=== PATIENT | female | born 1940 | race Caucasian/White ===

== ENCOUNTER → 2018-09-15 12:43 | Outpatient (CLI) | payer MEDICARE, MEDICAID, SELFPAY ==
--- NOTE | 2018-09-15 12:48 | CT_ITS ---
CT lung screening EXAM: CT LUNG LOW DOSE WO CONTRAST HISTORY: 90 pack-year smoking history aseptic medic for lung cancer ITS.REASON: CURRENT TOBACCO USE ORDERING PHYSICIAN: Yan Melton MD PATIENT AGE: 77 years COMPARISON: 02/06/2017 TECHNIQUE: The exam was performed on a GE Light Speed [address] scanner using 2.90 mGy CTDI. A low dose helical CT CHEST was performed on a multi-detector scanner. All CT scans at the facility use one or more dose reduction, viz: automated exposure control, ma/kV adjustment per patient size (including targeted exams where dose is matched to indication, i.e. head), or iterative reconstruction technique. The LDCT was performed in a facility that meets the criteria for the screening program. Data regarding this exam was submitted to ACR which is an approved registry. The order for this exam indicates that it came as a result of a lung cancer screening counseling shard decision-making visit that included all the elements required of such a visit including smoking cessation. The radiologist interpreting this exam meets the CMS criteria for the LDCT lung cancer screening program. The exam is reported using the Lung-RADS classification scale and reported to the ACR registry. NOTE: This study was performed for the specific purposes of lung cancer screening and is not an alternative to diagnostic chest CT. RADIATION DOSE: CTDI vol(CT dose Index-volume) = 2.90mG DLP (Dose Length Product) = 100.18 mGcm FINDINGS: Hyperinflation with attenuation of the peripheral pulmonary vessels and bronchial thickening consistent with obstructive chronic bronchitis. Stable small pulmonary nodules with a 4 mm nodule in the superior segment of the left lower lobe and a 4 mm nodule in the left lower lobe posterior laterally which may contain a small central calcific focus. No new nodules evident. There is a 4 mm nodule in the right apex medially unchanged Coronary artery calcifications are present. Stable small nodes are present in the mediastinum. Upper abdominal images show a mildly enlarged left adrenal gland measuring -5 Hounsfield units appears stable measuring 16 mm. Left renal cyst is noted superiorly IMPRESSION: 1. Lung RADS Category: 2, benign 2. Other findings: COPD, coronary artery disease RECOMMENDATIONS: 12 month LDCT follow-up
== END ==
PROVIDERS: PCP Family Medicine; Visit Provider Family Medicine
DX: Z12.2 Encounter for screening for malignant neoplasm of respiratory organs (principal); Z87.891 Personal history of nicotine dependence

== ENCOUNTER → 2020-02-09 10:15 | Outpatient (CLI) | payer MEDICARE, MEDICAID, SELFPAY | PROVIDERS: PCP Family Medicine; Visit Provider Family Medicine | DX: R00.2 Palpitations (principal) | CPT/HCPCS: 93225; 93226 ==

== ENCOUNTER → 2020-08-02 10:59 | Outpatient (CLI) | payer MEDICARE, MEDICAID, SELFPAY ==
--- NOTE | 2020-08-02 | XR_ITS ---
PROCEDURE: XR LUMBAR SPINE MIN 4V CLINICAL INDICATION: LOW BACK PAIN COMPARISON: No exams were available for comparison FINDINGS: There are 4 non rib-bearing lumbar vertebra. Degenerative disc disease is present at L3-L4 with mild retrolisthesis of L3 of 4 mm and degenerative disc disease also at the lumbosacral junction. No fracture or dislocation. No lytic or blastic change. There is facet arthritic changes at the lumbosacral junction and there is generalized vascular calcification. IMPRESSION: Degenerative changes as described above Dictated by: Grant Bliss MD 08/02/2020 17:28 Grant Bliss MD in [place] 08/02/2020 17:28
== END ==
PROVIDERS: PCP Family Medicine; Visit Provider Family Medicine
DX: M54.41 Lumbago with sciatica, right side (principal)
CPT/HCPCS: 72110

== ENCOUNTER → 2020-08-14 12:45 | Outpatient (CLI) | payer MEDICARE, MEDICAID, SELFPAY ==
--- NOTE | 2020-08-14 12:49 | MR_ITS ---
PROCEDURE: MR LUMBAR SPINE WO CON CLINICAL INDICATION: RT SIDED LOW BACK PAIN WITH SCIATICA X3 WEEKS. PRIOR XRAY 08-02-20 COMPARISON: CR XR LUMBAR SPINE MIN 4V from 08/02/2020 TECHNIQUE: Standard multiplanar multiecho sequences are performed without contrast. 3-D MIP and myelographic images are also rendered and reviewed FINDINGS: There is straightening of the lumbar lordosis. There is normal alignment. The spinal cord ends at the L1-L2 level. T12-L1, L1-L2 have an unremarkable appearance. L2-L3: Mild bulging disc with mild facet and ligamentum hypertrophy and mild bilateral foraminal narrowing. L3-L4: Mild bulging disc with moderate facet and ligamentum hypertrophy with moderate bilateral lateral recess narrowing and moderate bilateral foraminal narrowing. L4-5: There is a prominent extruded herniated disc in the right paracentral and foraminal region which extends superiorly from the L4-5 disc space. This is moderate-sized in nature measuring 1.5 cm cephalad caudad and 1.7 cm transverse. A nerve sheath tumor could have a similar appearance however, this appears to extend directly from the disc space. Repeat study without and with contrast may confirm the diagnosis. There is moderate facet and ligamentum hypertrophy with bilateral lateral recess and foraminal narrowing. This abnormality occupies the right foramen with compression of the exiting L4 nerve root an of the traversing L5 nerve root. There is minimal retrolisthesis of L4 of 2-3 mm. There is also moderate left lateral recess and foraminal narrowing with borderline narrowing of the canal. L5-S1: Mild concentric bulging disc with minimal central disc protrusion along with facet ligamentum hypertrophy with moderate right and severe left foraminal narrowing Incidental note is made of a 3.6 cm left renal cyst. IMPRESSION: 1. L2-L3: Mild bulging disc with mild facet and ligamentum hypertrophy and mild bilateral foraminal narrowing. 2. L3-L4: Mild bulging disc with moderate facet and ligamentum hypertrophy with moderate bilateral lateral recess narrowing and moderate bilateral foraminal narrowing. 3. L4-5: There is a prominent extruded herniated disc in the right paracentral and foraminal region which extends superiorly from the L4-5 disc space. This is moderate-sized in nature measuring 1.5 cm cephalad caudad and 1.7 cm transverse. A nerve sheath tumor could have a similar appearance however, this appears to extend directly from the disc space. Repeat study without and with contrast may confirm the diagnosis. There is moderate facet and ligamentum hypertrophy with bilateral lateral recess and foraminal narrowing. This abnormality occupies the right foramen with compression of the exiting L4 nerve root an of the traversing L5 nerve root. There is minimal retrolisthesis of L4 of 2-3 mm. There is also moderate left lateral recess and foraminal narrowing with borderline narrowing of the canal. 4. L5-S1: Mild concentric bulging disc with minimal central disc protrusion along with facet ligamentum hypertrophy with moderate right and severe left foraminal narrowing Dictated by: Grant Bliss MD 08/16/2020 12:02 Grant Bliss MD in [place] 08/16/2020 12:02
== END ==
PROVIDERS: PCP Family Medicine; Visit Provider Family Medicine
DX: M51.36 Other intervertebral disc degeneration, lumbar region (principal); M47.816 Spondylosis without myelopathy or radiculopathy, lumbar region; M43.16 Spondylolisthesis, lumbar region
CPT/HCPCS: 72148; 76376

== ENCOUNTER → 2020-08-30 11:21 | Outpatient (POV) | payer MEDICARE, MEDICAID, SELFPAY ==
[2020-08-30 12:01] VITALS: BP 142/74; PULSE 74; RESP 18; TEMP 36.8; O2SAT 98; BMI 26.9
--- NOTE | 2020-08-30 13:28 | HMH.PMCON ---
Assessment and Plan (1) Degenerative joint disease (DJD) of lumbar spine Status: Chronic Category: Medical Code(s): M47.816 - Spondylosis without myelopathy or radiculopathy, lumbar region (2) Lumbar radiculopathy Status: Chronic Category: Medical Code(s): M54.16 - Radiculopathy, lumbar region - Assessment and plan all Dx Assessment and Plan for all problems:: Patient is unable to undergo an MRI due to a pacemaker. She has had a CT scan of her lumbar spine. She is exhibiting neurogenic claudication type symptoms. We will schedule her for a lumbar epidural steroid injection at L4-L5 with an epidurogram. She is on Xarelto therapy per Dr. Barrow. We will seek approval to hold her Xarelto prior to the injection. Risks and benefits of the procedure were explained to the patient and she would like to proceed with the injection. Patient is interested in injective therapy. She says that she does not want to undergo any type of major surgery. We will see her back in the clinic after her injection to reassess her symptoms. She has been instructed to contact clinic if she has any concerns before her next appointment. The patient and I specifically discussed risk factors for COVID19. These risks include, but are not limited to age greater than 60, heart or lung disease, diabetes, immunosuppression, and travel. We also discussed NSAIDs may worsen COVID19 infection or symptoms. Patient should not use NSAIDs to treat COVID19 signs or symptoms. Patient was also informed that any type of corticosteroid of any form (oral or injection) will decrease the patient's immune system response and may increase the likelihood of COVID19 infection [address] symptoms[address] Landaverde has reviewed this note and agrees with this plan of care. This note was dictated using voice recognition software and make contain errors or omissions. HPI - Data of Consult Patient: new to practice Consult date: 08/30/20 Requesting Physician: Barbara Roldan APRN Primary Care Provider: Yan Melton MD - Consult Narrative Reason for consult: Low back pain History of present illness: Ms. Hills is a 79 year old female presents today for consultation for chronic low back pain. Patient says that she has had ongoing low back pain for greater than 30 years. 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 Patient attributes much of her back pain due to heavy lifting of patients throughout her career. She says that her pain is constant and is now causing her to lose her balance and fall. As a result she has had a left wrist fracture as well as a right thumb fracture from frequent falls. She is also having some urinary incontinence due to what she calls pressure in her low back area. She says that she is unable to stand long enough to do dishes or to cook a meal at this point. She says bending forward or laying in the position gives her some relief. Patient has tried injections to her back with little to no relief. She says that she gets about 2 to 3 days of relief at the most. She has tried traction as well. In the past, she was told she had a herniated disc L4-L5 and L5-S1. She says at that time, however, traction did give her relief. Patient says that she has had episodes where her legs have become numb and she has lost her balance. She says approximately a year ago she lost sensation in bilateral lower extremities and fell to the floor. She says that she developed sensation once again to her lower extremities approximately 1 day later. Patient says she cannot stand, sit, or lay for very long due to pain. She also reports to have severe leg atrophy in her left lower extremity. 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 She is currently on gabapentin that she says does help on occasion. She says her biggest concern is falling and fractures. She does have a recent history of osteo
--- NOTE | 2020-08-30 13:41 | HMH.PMCON ---
Assessment and Plan (1) Degenerative joint disease (DJD) of lumbar spine Status: Chronic Category: Medical Code(s): M47.816 - Spondylosis without myelopathy or radiculopathy, lumbar region (2) Lumbar radiculopathy Status: Chronic Category: Medical Code(s): M54.16 - Radiculopathy, lumbar region (3) Degenerative joint disease (DJD) of lumbar spine Status: Chronic Category: Medical Code(s): M47.816 - Spondylosis without myelopathy or radiculopathy, lumbar region (4) Lumbar radiculopathy Status: Chronic Category: Medical Code(s): M54.16 - Radiculopathy, lumbar region (5) Herniated disc Status: Chronic Category: Medical - Assessment and plan all Dx Assessment and Plan for all problems:: Patient is accompanied with a family member today. She and I did discuss the results of her MRI. I did discuss with the patient that her MRI has suggested she undergo a repeat MRI with contrast. Patient is not in agreement to proceed with a repeat MRI at this time. She and I did discuss a neurosurgical consult.. She has a family member that has given her suggestions to neurosurgeons. She would like to consult with her family member before proceeding with the referral. I have advised her that it is very important that she notify the office as soon as possible so that we can make the referral for her. She is unsure if she would like any injective therapy in the future. She does have a herniated disc per her MRI report. Her report did also suggest she undergo an MRI with contrast to rule out a tumor. We will refer her to neurosurgery when she decides who she would like to see. We will follow-up with her after her consultation with neurosurgery. The patient and I specifically discussed risk factors for COVID19. These risks include, but are not limited to age greater than 60, heart or lung disease, diabetes, immunosuppression, and travel. We also discussed NSAIDs may worsen COVID19 infection or symptoms. Patient should not use NSAIDs to treat COVID19 signs or symptoms. Patient was also informed that any type of corticosteroid of any form (oral or injection) will decrease the patient's immune system response and may increase the likelihood of COVID19 [address] Landaverde has reviewed this note and agrees with this plan of care. This note was dictated using voice recognition software and make contain errors or omissions. HPI - Data of Consult Patient: new to practice Consult date: 08/30/20 Requesting Physician: Barbara Roldan APRN Primary Care Provider: Yan Melton MD - Consult Narrative Reason for consult: Low back pain History of present illness: Ms. Hills is a 79 year old female presents today for consultation for chronic low back pain. Patient says she has chronic right low back pain with radiation into her right leg. She also has pain into her left low back area, however, it is worse on the right side at this time. She says she has difficulty standing and walking and has pain with prolonged sitting. She also says that laying at night causes her to have significant pain. Patient does rate her pain an 8 out of 10. She initially refused the pain management consult due to patient reporting she does not want to take any type of oral medications. She says that the pain is radiating into her right buttock, right hip, and right leg. It does go to her foot. She does have an MRI from July 2020 she is here today to discuss her treatment options. She says she is not sure if she is interested in injective therapy. She has tried anti-inflammatories with no relief. She has also tried ice and heat therapies with no relief. She does report to be having frequent falls as well. She is accompanied by family member today. CC: Barbara Roldan APRN [facility] History I have reviewed the patient's past medical history: Yes Medical History: Reports:: Chronic Obstructive Pulmonary Disease (COPD), Diabetes [place]
== END ==
PROVIDERS: PCP Family Medicine; Visit Provider Clinical Nurse Specialist Family Health
DX: M47.896 Other spondylosis, lumbar region (principal); M54.16 Radiculopathy, lumbar region
CPT/HCPCS: 99202

== ENCOUNTER → 2020-11-15 13:20 | Outpatient (CLI) | payer MEDICARE, MEDICAID, SELFPAY | PROVIDERS: PCP Family Medicine; Visit Provider Family Medicine | DX: Z11.52 Encounter for screening for COVID-19 (principal) | CPT/HCPCS: U0003 ==

== ENCOUNTER → 2021-12-18 11:14 | Outpatient (CLI) | payer MEDICARE, MEDICAID, SELFPAY ==
--- NOTE | 2021-12-18 11:22 | XR_ITS ---
FINAL REPORT CLINICAL HISTORY: RT SHOULDER PAIN FINDINGS: RIGHT SHOULDER: 3 views of the right shoulder were obtained. There is no acute fracture or dislocation. There is mild acromioclavicular joint and mild glenohumeral joint degenerative change.. There is no soft tissue abnormality. IMPRESSION: Degenerative change with no acute process. Reviewed, Interpreted and Dictated by Mike Louis III, MD Transcribed by Shefali Le Authenticated by Mike Louis III, MD on 12/18/2021 12:35:02 PM [facility]
== END ==
PROVIDERS: PCP Family Medicine; Visit Provider Family Medicine
DX: M25.511 Pain in right shoulder (principal)
CPT/HCPCS: 73030

== ENCOUNTER → 2022-06-11 07:05 | Outpatient (CLI) | payer MEDICARE, MEDICAID, SELFPAY ==
[2022-06-11 20:06] LABS: Anion Gap 15.2 mEq/L (5-15); Blood Urea Nitrogen 18 mg/dl (7-17); Calcium 9.4 mg/dl (8.4-10.2); Carbon Dioxide 30 mmol/L (22.0-30.0); Chloride 99 mmol/L (98-107); Estimated Glomerular Filt Rate 96 ml/min (>60); GFR (African American) 116 ML/MIN (>60); Glucose 121 mg/dl (74-100); Potassium 4.2 mmoL/L (3.5-5.1); Sodium 140 mmol/L (136-145)
== END ==
PROVIDERS: PCP Family Medicine; Visit Provider Family Medicine
DX: E11.9 Type 2 diabetes mellitus without complications (principal); I10 Essential (primary) hypertension; Z79.84 Long term (current) use of oral hypoglycemic drugs
CPT/HCPCS: 80048

== ENCOUNTER → 2022-12-03 23:20 | Outpatient (CLI) | payer MEDICARE, MEDICAID, SELFPAY ==
[2022-12-03 18:42] LABS: Basophils # 0.1 K/mm3 (0-0.2); Basophils % 1.1 % (0.1-2.0); Eosinophils # 0.2 K/mm3 (0.0-0.4); Eosinophils % 1.4 % (0.1-12.0); Hematocrit 49.6 % (37.0-47.0); Hemoglobin 15.5 g/dL (12.2-16.2); Lymphocytes # 2.4 K/mm3 (0.7-4.5); Mean Corpuscular HGB Conc 31.3 g/dL (31.8-35.4); Mean Corpuscular Hemoglobin 30.1 pg (27.0-31.2); Mean Corpuscular Volume 96.3 fl (81-99); Mean Platelet Volume 8.9 fl (7.4-10.4); Monocytes # 0.8 K/mm3 (0.1-1.0); Monocytes % 6.9 % (1.7-9.3); Neutrophils # 8.3 K/mm3 (1.8-7.8); Neutrophils % 70.7 % (37.0-80.0); Platelet Count 333 K/mm3 (142-424); Red Blood Count 5.15 M/mm3 (4.20-5.40); Red Cell Distribution Width 13.7 % (11.5-17.5); White Blood Count 11.8 K/mm3 (4.8-10.8)
[2022-12-03 19:01] LABS: Alanine Aminotransferase 20 U/L (12-78); Albumin Level 4.6 g/dl (3.5-5.0); Albumin/Globulin Ratio 1.8 (1.1-1.8); Alkaline Phosphatase 78 U/L (38-126); Anion Gap 14.3 mEq/L (5-15); Aspartate Amino Transferase 30 U/L (14-36); Bilirubin,Total 0.6 mg/dl (0.2-1.3); Blood Urea Nitrogen 16 mg/dl (7-17); Calcium 9.3 mg/dl (8.4-10.2); Carbon Dioxide 27 mmol/L (22.0-30.0); Chloride 102 mmol/L (98-107); Chol/HDL Ratio 2.4 (1-3.5); Cholesterol 124 mg/dl (140-200); Estimated Glomerular Filt Rate 80 ml/min (>60); GFR (African American) 97 ML/MIN (>60); Globulin 2.6 g/dL (1.3-3.2); Glucose 125 mg/dl (74-100); HDL Cholesterol 52 mg/dl (40-60); Potassium 4.3 mmoL/L (3.5-5.1); Sodium 139 mmol/L (136-145); Total Protein,Serum 7.2 g/dl (6.3-8.2); Triglycerides 70 mg/dl (30-150); VLDL Cholesterol 14 mg/dL (0-40)
[2022-12-03 19:28] LABS: Thyroid Stimulating Hormone 1.39 uIU/mL (0.465-4.68)
[2022-12-03 20:29] LABS: Microalbumin/Creatinine Ratio 150.9
[2022-12-03 20:32] LABS: Creatinine,Urine Random 103 mg/dL (Not Estab.)
[2022-12-03 21:19] LABS: Hemoglobin A1C 6.7 % (4.0-6.0)
== END ==
PROVIDERS: PCP Family Medicine; Visit Provider Family Medicine
DX: E11.9 Type 2 diabetes mellitus without complications (principal); I10 Essential (primary) hypertension; R42 Dizziness and giddiness; Z79.84 Long term (current) use of oral hypoglycemic drugs
CPT/HCPCS: 80053; 80061; 82043; 82570; 83036; 84443; 85025

== ENCOUNTER → 2023-04-29 23:42 | Outpatient (CLI) | payer MEDICARE, MEDICAID, SELFPAY ==
[2023-04-29 20:08] LABS: Alanine Aminotransferase 18 U/L (12-78); Albumin Level 4.5 g/dl (3.5-5.0); Albumin/Globulin Ratio 1.5 (1.1-1.8); Alkaline Phosphatase 87 U/L (38-126); Anion Gap 15.8 mEq/L (5-15); Aspartate Amino Transferase 30 U/L (14-36); Bilirubin,Total 0.4 mg/dl (0.2-1.3); Blood Urea Nitrogen 15 mg/dl (7-17); Carbon Dioxide 29 mmol/L (22.0-30.0); Chloride 102 mmol/L (98-107); Chol/HDL Ratio 2.6 (1-3.5); Cholesterol 125 mg/dl (140-200); Estimated Glomerular Filt Rate 80 ml/min (>60); GFR (African American) 97 ML/MIN (>60); Globulin 3.1 g/dL (1.3-3.2); Glucose 113 mg/dl (74-100); HDL Cholesterol 49 mg/dl (40-60); Potassium 4.8 mmoL/L (3.5-5.1); Sodium 142 mmol/L (136-145); Total Protein,Serum 7.6 g/dl (6.3-8.2); Triglycerides 93 mg/dl (30-150); VLDL Cholesterol 19 mg/dL (0-40)
[2023-04-29 20:18] LABS: Hemoglobin A1C 6.7 % (4.0-6.0)
[2023-04-29 20:21] LABS: Direct LDL Cholesterol 62.84 mg/dL (100-129)
== END ==
PROVIDERS: PCP Nurse Practitioner; Visit Provider Nurse Practitioner
DX: E11.9 Type 2 diabetes mellitus without complications (principal); E78.5 Hyperlipidemia, unspecified; I10 Essential (primary) hypertension; Z79.84 Long term (current) use of oral hypoglycemic drugs
CPT/HCPCS: 80053; 80061; 83036

== ENCOUNTER 2023-10-05 22:00 | Outpatient (CLI) | payer MEDICARE, MEDICAID, SELFPAY ==
[2023-10-05 19:59] LABS: Albumin Level 4.5 g/dl (3.5-5.0); Albumin/Globulin Ratio 1.7 (1.1-1.8); Alkaline Phosphatase 70 U/L (38-126); Bilirubin,Total 0.5 mg/dl (0.2-1.3); Blood Urea Nitrogen 14 mg/dl (7-17); Calcium 9.7 mg/dl (8.4-10.2); Carbon Dioxide 31 mmol/L (22.0-30.0); Estimated Glomerular Filt Rate 80 ml/min (>60); GFR (African American) 97 ML/MIN (>60); Globulin 2.6 g/dL (1.3-3.2); Glucose 117 mg/dl (74-100); HDL Cholesterol 49 mg/dl (40-60); Potassium 4.2 mmoL/L (3.5-5.1); Sodium 140 mmol/L (136-145); Total Protein,Serum 7.1 g/dl (6.3-8.2)
[2023-10-05 20:01] LABS: Alanine Aminotransferase 23 U/L (12-78); Anion Gap 11.2 mEq/L (5-15); Aspartate Amino Transferase 37 U/L (14-36); Chloride 102 mmol/L (98-107); Cholesterol 146 mg/dl (140-200); Triglycerides 79 mg/dl (30-150); VLDL Cholesterol 16 mg/dL (0-40)
[2023-10-05 20:11] LABS: Direct LDL Cholesterol 75.98 mg/dL (100-129)
[2023-10-05 20:16] LABS: 25-OH Vitamin D, Total 32.3 ng/mL (30-100)
[2023-10-05 20:25] LABS: Creatinine,Urine Random 29 mg/dL (Not Estab.)
[2023-10-05 20:29] LABS: Thyroid Stimulating Hormone 1.94 uIU/mL (0.465-4.68)
[2023-10-05 20:30] LABS: Microalbumin/Creatinine Ratio 182.4
[2023-10-05 20:48] LABS: Vitamin B12 589 pg/mL (239-931)
== END 2023-10-05 23:59 ==
LOC: LAB.DROPOF 22:00
PROVIDERS: PCP Nurse Practitioner; Visit Provider Nurse Practitioner
DX: E11.9 Type 2 diabetes mellitus without complications (principal); E55.9 Vitamin D deficiency, unspecified; E78.5 Hyperlipidemia, unspecified; I10 Essential (primary) hypertension; Z79.84 Long term (current) use of oral hypoglycemic drugs
CPT/HCPCS: 80053; 80061; 82043; 82306; 82570; 82607; 84443

== ENCOUNTER 2024-04-05 15:02 | Outpatient (CLI) | payer MEDICARE, MEDICAID, SELFPAY ==
[2024-04-05 17:46] LABS: Basophils # 0.1 K/mm3 (0-0.2); Basophils % 0.9 % (0.1-2.0); Eosinophils # 0.1 K/mm3 (0.0-0.4); Eosinophils % 1.4 % (0.1-12.0); Hematocrit 47.2 % (37.0-47.0); Hemoglobin 15.6 g/dL (12.2-16.2); Lymphocytes # 2.6 K/mm3 (0.7-4.5); Lymphocytes % 27.1 % (10-50); Mean Corpuscular Hemoglobin 30.9 pg (27.0-31.2); Mean Corpuscular Volume 93.6 fl (81-99); Mean Platelet Volume 8.8 fl (7.4-10.4); Monocytes # 0.7 K/mm3 (0.1-1.0); Monocytes % 6.9 % (1.7-9.3); Neutrophils % 63.7 % (37.0-80.0); Platelet Count 276 K/mm3 (142-424); Red Blood Count 5.04 M/mm3 (4.20-5.40); Red Cell Distribution Width 13.7 % (11.5-17.5); White Blood Count 9.5 K/mm3 (4.8-10.8)
[2024-04-05 18:42] LABS: Alanine Aminotransferase 23 U/L (12-78); Albumin Level 4.4 g/dl (3.5-5.0); Albumin/Globulin Ratio 1.4 (1.1-1.8); Alkaline Phosphatase 70 U/L (38-126); Anion Gap 14.1 mEq/L (5-15); Aspartate Amino Transferase 41 U/L (14-36); Bilirubin,Total 0.6 mg/dl (0.2-1.3); Blood Urea Nitrogen 16 mg/dl (7-17); Calcium 9.8 mg/dl (8.4-10.2); Carbon Dioxide 29 mmol/L (22.0-30.0); Chloride 103 mmol/L (98-107); Chol/HDL Ratio 2.8 (1-3.5); Cholesterol 154 mg/dl (140-200); Estimated Glomerular Filt Rate 80 ml/min (>60); GFR (African American) 97 ML/MIN (>60); Globulin 3.2 g/dL (1.3-3.2); Glucose 104 mg/dl (74-100); HDL Cholesterol 56 mg/dl (40-60); Potassium 4.1 mmoL/L (3.5-5.1); Sodium 142 mmol/L (136-145); Total Protein,Serum 7.6 g/dl (6.3-8.2); Triglycerides 80 mg/dl (30-150); VLDL Cholesterol 16 mg/dL (0-40)
[2024-04-05 18:53] LABS: Direct LDL Cholesterol 75.63 mg/dL (100-129)
[2024-04-05 19:55] LABS: Hemoglobin A1C 7.2 % (4.0-6.0)
== END 2024-04-05 23:59 | disposition home or self-care (01) ==
LOC: LAB.DROPOF 04-06 15:05
PROVIDERS: PCP Nurse Practitioner; Visit Provider Nurse Practitioner
DX: E11.9 Type 2 diabetes mellitus without complications (principal); E78.5 Hyperlipidemia, unspecified; Z79.84 Long term (current) use of oral hypoglycemic drugs
CPT/HCPCS: 80053; 80061; 83036; 85025

== ENCOUNTER 2024-05-12 12:25 | Emergency (ER) | payer MEDICARE, MEDICAID, SELFPAY ==
[2024-05-12 12:26] VITALS: BP 195/84; PULSE 68; RESP 17; TEMP 36.8; O2SAT 97; BMI 26.5
--- NOTE | 2024-05-12 12:31 | PC.NURSE ---
pt neuro symptoms reported to provider a this time. providers reports pt to be out of stroke alert window at this time due to her symptoms reoccurring over the last 2 weeks.
--- NOTE | 2024-05-12 12:57 | CT_ITS ---
FINAL REPORT TECHNIQUE: Thin-section axial CT with IV contrast supplemented with multi planar reconstruction under CT angiogram protocol was performed of the neck. This study was performed technique to keep radiation doses as low as reasonably achievable, (ALARA). NASCET criteria was utilized during interpretation. CLINICAL HISTORY: headache and hallucinations COMPARISON: None FINDINGS: Aortic arch: Arch shows no significant narrowing. Great vessel origins are widely patent. Right carotid: There is calcified plaque in the right carotid bifurcation and carotid bulb, producing approximately 50% luminal diameter stenosis. The more distal right cervical internal carotid artery is tortuous but without evidence of significant stenosis. Left carotid: There is calcified plaque present in the left carotid bulb, with high-grade 90% stenosis at that level. Vertebrals: Right vertebral artery is dominant. No significant stenosis is present. Note is made of a 16 mm right parotid gland mass, that may represent a pleomorphic adenoma, or mucosal epidermal carcinoma. The thyroid gland is heterogeneous with multiple nodules. Severe degenerative change of the cervical spine is also noted. IMPRESSION: Calcified plaque in the right carotid bifurcation and bulb, with approximately 50% luminal diameter stenosis. Calcified plaque in the left carotid bulb produces high-grade 90% stenosis. Recommend correlation with catheter angiography. 16 mm right parietal mass as described above, as well as a heterogeneous thyroid gland with multiple nodules. Reviewed, Interpreted and Dictated by Mike Louis III, MD Transcribed by Ana Fall Authenticated and [facility]
[2024-05-12 12:59] LABS: Microscopic, Urine URINE MICROSCOPIC (MICROSCOPIC)
--- NOTE | 2024-05-12 12:59 | PC.NURSE ---
called radiology for CTs
[2024-05-12 13:00] VITALS: BP 176/73; PULSE 63; RESP 20; O2SAT 95
--- NOTE | 2024-05-12 13:01 | PC.NURSE ---
Dr. Jung at bedside
[2024-05-12 13:02] LABS: Appearance,Urine CLEAR (Clear); Bilirubin,Urine Negative (Negative); Blood, Urine Negative (Negative); Color,Urine YELLOW (Yellow); Glucose,Urine (UA) Negative (Negative); Ketones,Urine Negative (Negative); Leukocyte Esterase,Urine Negative (Negative); Nitrate,Urine Negative (Negative); Protein,Urine Negative (Negative); Urobilinogen,Urine 0.2 EU/dl (0.2)
--- NOTE | 2024-05-12 13:02 | CT_ITS ---
FINAL REPORT CLINICAL HISTORY: stroke w/u FINDINGS: Axial images of the head were obtained without contrast. Coronal and sagittal reformatted images were also obtained. This study was performed with techniques to keep radiation doses as low as reasonably achievable (ALARA). Individualized dose reduction techniques using automated exposure control or adjustment of mA and/or kV according to the patient''s size were employed. There is generalized age-appropriate atrophy. Periventricular low-attenuation areas are seen consistent with moderate-severe chronic ischemic changes. There is no evidence of intracranial hemorrhage or mass. There is no evidence of acute infarct. There is no evidence of shift of the midline structures. No skull abnormality is seen on the bone window images. IMPRESSION: Atrophy and moderate-severe periventricular chronic ischemic changes. No acute intracranial abnormality identified. Authenticated and [facility]
--- NOTE | 2024-05-12 13:02 | CT_ITS ---
FINAL REPORT TECHNIQUE: Thin section axial CT with IV contrast supplemented with multiplanar reconstruction under CT angiogram protocol. 3-D reconstructions were performed. This study was performed with techniques to keep radiation doses as low as reasonably achievable (ALARA). Individualized dose reduction techniques using automated exposure control or adjustment of mA and/or kV according to the patient's size were employed. CLINICAL HISTORY: stroke w/u COMPARISON: None FINDINGS: The distal vertebral, basilar and distal internal carotid arteries have an unremarkable appearance. There is calcification in the cavernous portions of the carotid arteries bilaterally. No aneurysm is seen. Major intracranial vessels are patent without significant stenosis. IMPRESSION: No major intracranial vascular abnormality identified. Reviewed, Interpreted and Dictated by Mike Louis III, MD Transcribed by Ana Fall Authenticated and [facility]
[2024-05-12 13:05] LABS: Basophils # 0.2 K/mm3 (0-0.2); Basophils % 2.1 % (0.1-2.0); Eosinophils # 0.2 K/mm3 (0.0-0.4); Eosinophils % 1.6 % (0.1-12.0); Hematocrit 52.5 % (37.0-47.0); Hemoglobin 16.5 g/dL (12.2-16.2); Lymphocytes # 2.5 K/mm3 (0.7-4.5); Lymphocytes % 23.6 % (10-50); Mean Corpuscular HGB Conc 31.4 g/dL (31.8-35.4); Mean Corpuscular Hemoglobin 30.1 pg (27.0-31.2); Mean Corpuscular Volume 96.1 fl (81-99); Mean Platelet Volume 8.5 fl (7.4-10.4); Monocytes # 0.7 K/mm3 (0.1-1.0); Monocytes % 6.8 % (1.7-9.3); Neutrophils % 65.8 % (37.0-80.0); Platelet Count 289 K/mm3 (142-424); Red Blood Count 5.46 M/mm3 (4.20-5.40); Red Cell Distribution Width 13.2 % (11.5-17.5); White Blood Count 10.6 K/mm3 (4.8-10.8)
--- NOTE | 2024-05-12 13:10 | PC.NURSE ---
pt to CT
--- NOTE | 2024-05-12 13:15 | PC.NURSE ---
radiology reported pt refused contrast. reported to [facility] [place]
[2024-05-12 13:16] LABS: Alanine Aminotransferase 32 U/L (12-78); Albumin Level 4.6 g/dl (3.5-5.0); Albumin/Globulin Ratio 1.3 (1.1-1.8); Alkaline Phosphatase 66 U/L (38-126); Anion Gap 9.9 mEq/L (5-15); Aspartate Amino Transferase 43 U/L (14-36); Bilirubin,Total 0.7 mg/dl (0.2-1.3); Blood Urea Nitrogen 13 mg/dl (7-17); Carbon Dioxide 32 mmol/L (22.0-30.0); Chloride 104 mmol/L (98-107); Creatinine Clearance Estimated 44 mL/min (50-200); Estimated Glomerular Filt Rate 80 ml/min (>60); GFR (African American) 97 ML/MIN (>60); Globulin 3.6 g/dL (1.3-3.2); Glucose 120 mg/dl (74-100); Potassium 3.9 mmoL/L (3.5-5.1); Sodium 142 mmol/L (136-145); Total Protein,Serum 8.2 g/dl (6.3-8.2)
[2024-05-12 13:23] LABS: RBC,Urine Occasional #/hpf (0-3); Squamous Epithelial Cell,Urine Occasional #/hpf (0-5); WBC,Urine Occasional #/hpf (0-3)
--- NOTE | 2024-05-12 13:24 | HMH.ITSTN ---
spoke to md about talking to patient about contrast , pt was concerned due to daughter having severe reaction
[2024-05-12 13:28] LABS: Troponin I < 0.01 ng/ml (0.00-0.034)
[2024-05-12 13:35] VITALS: BP 175/66; PULSE 65; RESP 18; O2SAT 94
[2024-05-12] MEDS: 0.9 % SODIUM CHLORIDE 50 ML VIAL IV (13:49)
[2024-05-12] MEDS: IOPAMIDOL-370 (76%);100ML BOTTLE 80 ML IV (13:49)
[2024-05-12] MEDS: SODIUM CHLORIDE 0.9% 10ML SYR (RAD ONLY) 10 ML IV (13:49)
--- NOTE | 2024-05-12 14:01 | ECG_ITS ---
APPROVED REPORT Exam: Resting ECG HR:63 bpm ECG Measurements Heart Rate 63 AXES ND 186 P 68 QRSd 76 QRS 55 QT 399 T 76 QTc 406 Conclusion SINUS RHYTHM NORMAL ECG Electronically signed by : MARY FREIRE, 05/12/2024 17:02:35
[2024-05-12 16:09] VITALS: BP 154/78; PULSE 79; RESP 20; TEMP 36.7; O2SAT 98
--- NOTE | 2024-05-12 16:42 | HMH.EDGENADL ---
Discharge Plan Disposition Patient Disposition: Home, Self-Care Condition: Good Prescriptions Prescriptions: New clopidogrel [Plavix] 75 mg tablet 75 mg PO DAILY Qty: 30 1RF No Action albuterol sulfate 90 mcg/actuation HFA aerosol inhaler See Rx Instructions .ROUTE .COMPLEX Qty: 36 1RF Dose Instruction: Use 1 puff four times a day Rx Instructions: Use 1 puff four times a day aspirin 81 mg tablet,delayed release (DR/EC) 81 mg PO DAILY cholecalciferol (vitamin D3) 25 mcg (1,000 unit) capsule 25 mcg PO DAILY (DME) Contour Test Strips Strip See Rx Instructions .ROUTE .COMPLEX Qty: 50 2RF Dose Instruction: Use to check blood sugar as directed. Rx Instructions: Use to check blood sugar as directed. meclizine 25 mg tablet See Rx Instructions .ROUTE .COMPLEX Qty: 30 1RF Dose Instruction: Take 1 tablet by mouth three times a day As Needed for dizziness Rx Instructions: Take 1 tablet by mouth three times a day As Needed for dizziness trimethoprim 100 mg tablet See Rx Instructions .ROUTE .COMPLEX Qty: 90 3RF Dose Instruction: Take 1 tablet by mouth once daily Rx Instructions: Take 1 tablet by mouth once daily amlodipine-valsartan 10-320 mg tablet See Rx Instructions .ROUTE .COMPLEX Qty: 90 1RF Dose Instruction: TAKE 1 TABLET BY MOUTH ONCE DAILY Rx Instructions: TAKE 1 TABLET BY MOUTH ONCE DAILY glyburide 5 mg tablet See Rx Instructions .ROUTE .COMPLEX Qty: 360 0RF Dose Instruction: Take 4 Tablets by mouth once daily. Rx Instructions: Take 4 Tablets by mouth once daily. omeprazole 40 mg capsule,delayed release(DR/EC) See Rx Instructions .ROUTE .COMPLEX Qty: 90 1RF Dose Instruction: Take 1 Capsule by mouth once daily. Rx Instructions: Take 1 Capsule by mouth once daily. rosuvastatin 5 mg tablet See Rx Instructions .ROUTE .COMPLEX Qty: 90 0RF Dose Instruction: TAKE 1 TABLET BY MOUTH DAILY Rx Instructions: TAKE 1 TABLET BY MOUTH DAILY metoprolol tartrate 100 mg tablet See Rx Instructions .ROUTE .COMPLEX Qty: 180 1RF Dose Instruction: Take 1 Tablet by mouth twice daily. Rx Instructions: Take 1 Tablet by mouth twice daily. metformin 500 mg tablet extended release 24 hr See Rx Instructions .ROUTE .COMPLEX Qty: 180 0RF Dose Instruction: Take 2 Tablets by mouth once daily. Rx Instructions: Take 2 Tablets by mouth once daily. Referrals Follow up/Referrals: Aracely Thomas APRN [Primary Care Provider] - See instructions Melida Yanez APRN [Nurse Practitioner] - See instructions Elsa Sy APRN [Nurse Practitioner] - See instructions Activity Restrictions/Add. Instructions Additional Instructions/Restrictions: You were evaluated in the emergency department today. You are found to have a mass of your parotid gland, for which we recommend follow-up with ENT. For your hallucinations, we recommended follow-up with neurology/neurosurgery at , but you declined. You have severe narrowing of the blood vessel in your neck, which for which we recommended outpatient follow-up which you declined us setting up. Given this, we are putting you on Plavix for dual antiplatelet therapy to thin your blood and help prevent stroke, because you are at high risk of having a stroke. At this time, there is no evidence of stroke on your imaging. Return to the emergency department right away for new or worsening symptoms. Clinical Impressions Clinical Impression: Mass of right parotid gland, Visual hallucinations, Carotid artery stenosis Print Language Print Language: Spanish Discharge ED Provider: Charlotte Jung General Adult HPI General Chief complaint: Neuro Symptoms/Deficit Stated complaint: headache seeing people not there Time Seen by Provider: 05/12/24 12:56 Mode of Arrival: Ambulatory Source of Information: Patient and Relative Limitations: No Limitations Description of Symptoms (Recalled from ER Triage Doc. by RN): pt to the ED with complaints of an intermitten headache in one concentrated spot on the right posterior side of her head and pressure behind her eyes x 2 weeks. pt also reports she began to intermittenly hallucinate children out of her peripheral vision when she knew she was home alone. pt reports these hallucinations since thursday. History of Present Illness HPI narrative: This patient is an 83-year-old female with a history of type 2 diabetes, hypertension, hyperlipidemia, and degenerative disc disease presenting to the emergency department for evaluation with concern for intermittent headache, intermittent pressure behind her eyes, and intermittent hallucinations. She states that she keeps seeing children out of her peripheral vision even though she knows she is home alone. She states she sees girls coming her hair and feels like they are trying to tell her something. She notes that she sees them in her peripheral vision but when she turns her head to look at them, they disappear. She saw her primary care provider today who sent her to the ED for evaluation. She denies any fevers, chills, neck pain, meningismus, or other infectious symptoms. She is currently not having a headache or visual disturbance. Related Data Home Medications ?Medication ?Instructions ?Recorded ?Confirmed aspirin 81 mg tablet,delayed 81 mg PO DAILY 04/09/22 04/05/24 release cholecalciferol (vitamin D3) 25 25 mcg PO DAILY 04/09/22 04/05/24 mcg (1,000 unit) capsule Previous Rx's ?Medication ?Instructions ?Recorded blood sugar diagnostic (Contour #50 strips 11/26/22 Test Strips) meclizine 25 mg tablet See Rx Instructions .Route 12/31/22 .COMPLEX #30 tabs trimethoprim 100 mg tablet See Rx Instructions .Route 09/21/23 .COMPLEX #90 tabs albuterol sulfate 90 mcg/actuation See Rx Instructions .Route 10/05/23 aerosol inhaler .COMPLEX #36 grams amlodipine 10 mg-valsartan 320 mg See Rx Instructions .Route 12/21/23 tablet .COMPLEX #90 tabs glyburide 5 mg tablet See Rx Instructions .Route 03/17/24 .COMPLEX #360 tabs omeprazole 40 mg capsule,delayed See Rx Instructions .Route 04/04/24 release .COMPLEX #90 caps rosuvastatin 5 mg tablet See Rx Instructions .Route 04/19/24 .COMPLEX #90 tabs metoprolol tartrate 100 mg tablet See Rx Instructions .Route 04/25/24 .COMPLEX #180 tabs metformin 500 mg tablet,extended See Rx Instructions .Route 05/03/24 release 24 hr .COMPLEX #180 tabs clopidogrel 75 mg tablet (Plavix) 75 mg PO DAILY #30 tabs 05/12/24 Allergies Allergy/AdvReac Type Severity Reaction Status Date / Time brompheniramine AdvReac Verified 04/05/24 10:06 bupivacaine [From Marcaine] AdvReac Verified 04/05/24 10:06 cephalexin [From Keflex] AdvReac Verified 04/05/24 10:06 clarithromycin AdvReac Verified 04/05/24 10:06 fluvastatin [From Lescol] AdvReac Verified 04/05/24 10:06 hydrochlorothiazide AdvReac Verified 04/05/24 10:06 lovastatin [From Altocor] AdvReac Verified 04/05/24 10:06 moxifloxacin [From Avelox] AdvReac Verified 04/05/24 10:06 nitrofurantoin AdvReac Verified 04/05/24 10:06 [From Macrobid] triamcinolone [From Kenalog] AdvReac Verified 04/05/24 10:06 [facility] Disclaimer: The information contained in this section may have been updated after the patient was seen, as this information can be updated by other users. Medical History Visual hallucination Right-sided headache Coronary artery calcification seen on CT scan Pulmonary nodule Vitamin D deficiency Type 2 diabetes mellitus without complications Hyperlipidemia Diabetes mellitus HTN (hypertension) Degenerative joint disease (DJD) of lumbar spine Social History Smoking Status: Never smoker alcohol intake: never current occupational status: other Travel in the last 8 weeks: None household members: other housing: house ROS Obtained: Yes All systems reviewed & no additional complaints except as documented Physical Exam General General appearance: alert and in no apparent distress Head Head exam: atraumatic and normocephalic Eye Eye exam: Present normal appearance, PERRL and EOMI ENT ENT exam: Present normal exam, normal oropharynx, mucous membranes moist and normal external ear exam Neck Neck exam: Present normal inspection, full ROM and trachea midline; Absent tenderness Chest Chest inspection: Present normal inspection and symmetric chest wall rise; Absent tenderness Respiratory Respiratory exam: Present normal lung sounds bilaterally; Absent respiratory distress, wheezes, stridor or accessory muscle use Cardiovascular Cardiovascular exam: Present regular rate and normal rhythm Abdominal Exam Abdominal exam: Present soft; Absent distention, tenderness or guarding Extremities Exam Extremities exam: Present normal inspection, full ROM and normal capillary refill; Absent tenderness or edema Back Exam Back exam: Present normal inspection and full ROM; Absent tenderness Neurological Exam Neurological exam: Present alert, oriented X3, CN II-XII intact and normal gait; Absent motor sensory deficit Psychiatric Psychiatric exam: Present normal affect and normal mood Skin Skin exam: Present warm and dry Medical Decision Making Medical Records Medical records reviewed: Yes I reviewed the patient's medical records. Cristhian Inquiry Pt receiving controlled substance: No Vital Signs: 05/12/24 12:26 05/12/24 13:00 05/12/24 13:35 Temperature 98.2 F Temperature Source Oral Pulse Rate 63 65 Pulse Rate [Left Radial] 68 Respiratory Rate 17 20 18 Blood Pressure 176/73 H 175/66 H Blood Pressure [Right Arm] 195/84 H Blood Pressure Mean [Right Arm] 121 Blood Pressure Source [Right Arm] Automatic Cuff Blood Pressure Position [Right Arm] Sitting 02 Sat by Pulse Oximetry 97 95 94 L Oxygen Delivery Method Room Air Room Air Room Air 05/12/24 16:09 Temperature 98.0 F Temperature Source Pulse Rate 79 Pulse Rate [Left Radial] Respiratory Rate 20 Blood Pressure 154/78 H Blood Pressure [Right Arm] Blood Pressure Mean [Right Arm] Blood Pressure Source [Right Arm] Blood Pressure Position [Right Arm] 02 Sat by Pulse Oximetry Oxygen Delivery Method Room Air Lab Data Lab results reviewed: Yes I reviewed the patient's lab results. Lab Results 05/12/24 12:35: WBC 10.6, RBC 5.46 H, Hgb 16.5 H, Hct 52.5 H, MCV 96.1, MCH 30.1, MCHC 31.4 L, RDW 13.2, Plt Count 289, MPV 8.5, Neut % (Auto) 65.8, Lymph % (Auto) 23.6, Drew % (Auto) 6.8, Eos % (Auto) 1.6, Baso % (Auto) 2.1 H, Neut # (Auto) 7.0, Lymph # (Auto) 2.5, Drew # (Auto) 0.7, Eos # (Auto) 0.2, Baso # (Auto) 0.2, Sodium 142, Potassium 3.9, Chloride 104, Carbon Dioxide 32 H, Anion Gap 9.9, BUN 13, Creatinine 0.70, Estimated Creat Clear 44, Estimated GFR 80, Est GFR ( Amer) 97, Glucose 120 H, Calcium 10.0, Total Bilirubin 0.7, AST 43 H, ALT 32, Alkaline Phosphatase 66, Troponin I < 0.01, Total Protein 8.2, Albumin 4.6, Globulin 3.6 H, Albumin/Globulin Ratio 1.3 05/12/24 12:37: Urine Color Yellow, Urine Appearance Clear, Urine pH 6.0, Ur Specific Rupert 1.010, Urine Protein Negative, Urine Glucose (UA) Negative, Urine Ketones Negative, Urine Blood Negative, Urine Nitrate Negative, Urine Bilirubin Negative, Urine Urobilinogen 0.2, Ur Leukocyte Esterase Negative, Urine RBC Occasional, Urine WBC Occasional, Ur Squamous Epith Cells Occasional, Urine Bacteria None 05/12/24 12:35 05/12/24 12:35 Orders (Tests/Meds): ED MEDICATIONS Discontinued Medications Generic Name Dose Route Start Last Admin Trade Name Deonq PRN Reason Stop Dose Admin Iopamidol 80 ml 05/12/24 13:44 05/12/24 13:49 Iopamidol-370 (76%);100ml Bottle IV 05/12/24 13:45 80 ml ONCE ONE Administration Sodium Chloride 10 ml 05/12/24 12:56 Sodium Chloride 0.9% 10ml Flush Syringe IV 06/11/24 12:55 NEEDED PRN Maintain IV Site Sodium Chloride 10 ml 05/12/24 13:44 05/12/24 13:49 Sodium Chloride 0.9% 10ml Syr (Rad Only) IV 05/12/24 13:45 10 ml ONCE ONE Administration Sodium Chloride 50 ml 05/12/24 13:44 05/12/24 13:49 0.9 % Sodium Chloride 50 Ml Vial IV 05/12/24 13:45 50 ml ONCE ONE Administration ORDERS Category Date Time Status CT angio head Stat Cat Scan 05/12/24 13:[address] angio neck Stat Cat Scan 05/12/24 12:[address] head/brain wo con Stat Cat Scan 05/12/24 13:02 Completed Complete Blood Count Auto Diff Stat Lab 05/12/24 12:35 Completed Comprehensive Metabolic Panel Stat Lab 05/12/24 12:35 Completed Troponin I Stat Lab 05/12/24 12:35 Completed Urinalysis and Microscopic Stat Lab 05/12/24 12:37 Completed ECG Data Tracing #1: I reviewed this ECG and interpreted as documented below: Normal sinus rhythm with a ventricular rate of [address] changes concerning for ischemia. Normal axis and intervals. ECG initial impression date: 05/12/24 ECG initial impression time: 14:09 Medical Decision Narrative: In summary, this patient is a 83-year-old female presenting to the Emergency Department for evaluation of intermittent headache, intermittent visual disturbances, and hallucinations. Differential diagnoses considered include but are not limited to CVA, intracranial hemorrhage, intracranial mass, meningitis, cephalitis, UTI, delirium. Ruling out the most morbid conditions drove assessment. It should be noted patient's history includes hypertension, hyperlipidemia, and type 2 diabetes which may or may not be at goal therapy. This complicates all aspects of care by increasing patient's risk for morbidity. I reviewed patient's past medical records and noted PCP evaluation today as well as prior evaluations for high blood pressure. On exam, the patient is sitting upright in no acute distress on the stretcher. She is alert, neurologically intact with an NIH stroke scale of 0. She is still complaining of visual hallucinations. Workup included stroke CT scans as well as lab evaluation and urinalysis to evaluate for infectious cause. EKG and troponin was also obtained. I independently interpreted CT scan prior to the radiologist read and noted no obvious intracranial hemorrhage. Please see their read for final interpretation. Patient was found to have a parotid mass, which I notified her of and recommended follow-up with ENT. She also was found to have severe critical carotid stenosis, which I notified her of. I had an interactive discussion with neurosurgery at who advised outpatient follow-up for this, but patient does not want to set this up. I also recommended to her that her symptoms and her hallucinations are concerning to me and would warrant further neurologic consultation and evaluation, but she states that she is not interested in this and wants to go home. She states that she has been fine for 83 years and does not want to do any sort of aggressive workup or intervention at this time. She states that there is no way she would ever lie for an MRI either. Labs were obtained that demonstrated no acutely concerning abnormalities and no concerns for urinary tract infection. Ultimately I advised further workup, but patient declines. She is alert and oriented and demonstrates good understanding and decision-making capacity, so we will not hold her heel against her will. She is here with her daughter who advised that she will help arrange outpatient follow-up as long as we write down what is wrong, which I did. Ultimately, I feel the patient is appropriate for patient directed discharge home. She was discharged with strict return precautions as well as instructions for close outpatient follow-up. I also advised that she start taking Plavix as well for dual antiplatelet therapy given her severe carotid stenosis, but she states that she will not be picking that up because she does not want to deal with an increased risk of potential bleeding. She left in stable condition Critical Care Critical Care Time Critical Care Time: No
== END 2024-05-12 16:10 | disposition home or self-care (01) ==
PROVIDERS: Emergency Provider Emergency Medicine; PCP Nurse Practitioner
DX: K11.8 Other diseases of salivary glands (principal); R44.1 Visual hallucinations; I65.29 Occlusion and stenosis of unspecified carotid artery; R51.9 Headache, unspecified
CPT/HCPCS: 70450; 70496; 70498; 80053; 81001; 84484; 85025; 93005; 99285; Q9967

== ENCOUNTER 2024-05-16 12:00 | Outpatient (CLI) | payer MEDICARE, MEDICAID, SELFPAY ==
[2024-05-16 17:58] LABS: Microscopic, Urine URINE MICROSCOPIC (MICROSCOPIC)
[2024-05-16 18:32] LABS: Appearance,Urine CLEAR (Clear); Bilirubin,Urine Negative (Negative); Blood, Urine Negative (Negative); Color,Urine YELLOW (Yellow); Glucose,Urine (UA) Negative (Negative); Ketones,Urine Negative (Negative); Leukocyte Esterase,Urine Negative (Negative); Nitrate,Urine Negative (Negative); Protein,Urine TRACE (Negative); Specific Gravity, Urine >= 1.030 (1.005-1.030); Urobilinogen,Urine 0.2 EU/dl (0.2)
[2024-05-16 18:43] LABS: WBC,Urine Occasional #/hpf (0-3)
== END 2024-05-16 23:59 | disposition home or self-care (01) ==
LOC: LAB.DROPOF 05-17 10:28
PROVIDERS: PCP Nurse Practitioner; Visit Provider Nurse Practitioner
DX: N39.0 Urinary tract infection, site not specified (principal); R42 Dizziness and giddiness; R44.1 Visual hallucinations
CPT/HCPCS: 81001; 87086

== ENCOUNTER 2024-06-01 08:52 | Outpatient (CLI) | payer MEDICARE, MEDICAID, SELFPAY ==
--- NOTE | 2024-06-01 08:52 | US_ITS ---
FINAL REPORT CLINICAL HISTORY: history of multiple thyroid nodules COMPARISON: None FINDINGS: THYROID ULTRASOUND: The right lobe of the thyroid measures 4.7 x 1.9 x 1.6 cm in size. There are multiple less than 1 cm in size TI-RADS category 4 nodules in the right thyroid. The left thyroid measures 3.7 x 2 x 2 cm in size. There is a 1.2 cm x 0.9 cm left mid thyroid lobe nodule, hypoechoic, solid, a TI-RADS category 5 based on height greater than with. This nodule is labeled as nodule B by the dental technologist. There is also a lower pole 1.2 cm TI-RADS category 3 nodule in the left lobe. The isthmus is normal in appearance and measures 4 mm in thickness. IMPRESSION: TI-RADS category 5 nodule in the left mid lobe of the thyroid gland, labeled as nodule B by the hvac technician. Recommend biopsy of this nodule. Multiple other nodules are identified as described above, which according to TI-RADS criteria should be followed up in 1 year with a repeat thyroid ultrasound. Reviewed, Interpreted and Dictated by Selvin Faith MD Transcribed by Ana Fall Authenticated and [facility]
--- NOTE | 2024-06-01 09:10 | US_ITS ---
FINAL REPORT CLINICAL HISTORY: YOLI PITTMAN - RT PAROTID MASS -- RPMI USED FINDINGS: ULTRASOUND GUIDED RIGHT PAROTID MASS BIOPSY HISTORY: Right parotid nodule/mass. TECHNIQUE: Limited sonographic evaluation of right parotid gland was performed to localize lesion of interest. A 2.4 cm nodule was targeted for biopsy. Informed consent was obtained from the patient. A timeout procedure was performed prior to beginning. The right neck was prepped in a routine sterile fashion and locally anesthetized with 1% lidocaine. FNA was performed with 25-gauge needle under direct sonographic visualization. 5 passes were made. Cytology is pending. 2 samples were placed in RPMI. Procedure was well tolerated. CONCLUSION: Technically successful right parotid mass fine needle aspiration. Reviewed, Interpreted and Dictated by Selvin Faith MD Transcribed by Christy Vaughn PA-C Authenticated and [facility]
== END 2024-06-01 23:59 | disposition home or self-care (01) ==
PROVIDERS: PCP Nurse Practitioner; Visit Provider Nurse Practitioner
DX: E04.1 Nontoxic single thyroid nodule (principal); K11.8 Other diseases of salivary glands
CPT/HCPCS: 10005; 76536; 88173; 88184; 88185; 88305

== ENCOUNTER 2024-06-13 14:15 | Outpatient (CLI) | payer MEDICARE, MEDICAID, SELFPAY ==
--- NOTE | 2024-06-13 14:19 | CA_ITS ---
FINAL REPORT TECHNIQUE: Real-time imaging was performed of the extracranial carotid arteries in transverse and longitudinal planes, with color duplex evaluation of blood flow velocity. Spectral analysis was performed. The cervical vertebral arteries were also examined. CLINICAL HISTORY: MIGUEL,HTN,DM,HLD,SMOKER COMPARISON: None FINDINGS: NASCET technique is utilized for stenosis evaluation. Right carotid system (centimeters/second): CCA: 61 ICA: 100 ECA: 214 Vertebral artery: Antegrade ICA/CCA ratio: 1.65 Mild to moderate plaque is identified at the bifurcation. Left carotid system (centimeters/second): CCA: 86 ICA: 254 ECA: 131 Vertebral artery: Antegrade ICA/CCA ratio: 2.95 Moderate plaque is identified at the bifurcation. IMPRESSION: Less than 50% right ICA stenosis. 50 to 69% left ICA stenosis. Antegrade flow bilateral vertebral arteries. Reviewed, Interpreted and Dictated by Selvin Faith MD Transcribed by Ana Fall Authenticated and . [facility]
== END 2024-06-13 23:59 | disposition home or self-care (01) ==
LOC: RT 14:17
PROVIDERS: PCP Nurse Practitioner; Visit Provider Surgery
DX: I65.23 Occlusion and stenosis of bilateral carotid arteries (principal)
CPT/HCPCS: 93880

== ENCOUNTER 2024-07-28 21:30 | Inpatient (IN) | payer MEDICARE, MEDICAID, SELFPAY ==
[2024-07-28] VITALS (7 sets, daily range): BP systolic 157–182; BP diastolic 59–140; PULSE 80–86; RESP 15–30; TEMP 37.3; O2SAT 92–97; BMI 25.6
--- NOTE | 2024-07-28 21:31 | ECG_ITS ---
APPROVED REPORT Exam: Resting ECG HR:83 bpm ECG Measurements Heart Rate 83 AXES MI 172 P 72 QRSd 76 QRS 47 QT 351 T 80 QTc 390 Conclusion SINUS RHYTHM NORMAL ECG UNCONFIRMED REPORT Electronically signed by : NATHANIEL JOHNSON, 07/29/2024 06:21:23
--- NOTE | 2024-07-28 22:07 | XR_ITS ---
PROCEDURE INFORMATION: Exam: XR Chest Exam date and time: 07/28/2024 10:37 PM Age: 83 years old Clinical indication: Condition or disease; Lung condition and disease; Copd; Cough; Additional info: Cough copd TECHNIQUE: Imaging protocol: Radiologic exam of the chest. Views: 2 views. COMPARISON: LUNGSCREEN CT lung screening 09/15/2018 1:10 PM FINDINGS: Lungs: Mild hyperexpansion and hyperlucency with mild diaphragmatic flattening suggesting COPD. Pulmonary vasculature grossly normal. No gross pulmonary infiltrates or edema pattern. Pleural spaces: No pleural effusion. No pneumothorax. Heart/Mediastinum: Heart size normal. No tracheal/mediastinal shift. Bones/joints: No acute osseous abnormalities are identified. Osteopenia. Mild thoracic spondylosis. IMPRESSION: 1. No acute thoracic process. 2. COPD.
--- NOTE | 2024-07-28 22:10 | HMH.EDCP ---
Discharge Plan Disposition Patient Disposition: Admitted Chief Complaint: Shortness of Breath/Dyspnea Prescriptions Prescriptions: No Action albuterol sulfate 90 mcg/actuation HFA aerosol inhaler See Rx Instructions .ROUTE .COMPLEX Qty: 36 1RF Dose Instruction: Use 1 puff four times a day Rx Instructions: Use 1 puff four times a day clopidogrel [Plavix] 75 mg tablet 75 mg PO DAILY Qty: 90 3RF aspirin 81 mg tablet,delayed release (DR/EC) 81 mg PO DAILY Qty: 100 10RF cholecalciferol (vitamin D3) 25 mcg (1,000 unit) capsule 25 mcg PO DAILY (DME) Contour Test Strips Strip See Rx Instructions .ROUTE .COMPLEX Qty: 50 2RF Dose Instruction: Use to check blood sugar as directed. Rx Instructions: Use to check blood sugar as directed. meclizine 25 mg tablet See Rx Instructions .ROUTE .COMPLEX Qty: 30 1RF Dose Instruction: Take 1 tablet by mouth three times a day As Needed for dizziness Rx Instructions: Take 1 tablet by mouth three times a day As Needed for dizziness trimethoprim 100 mg tablet See Rx Instructions .ROUTE .COMPLEX Qty: 90 3RF Dose Instruction: Take 1 tablet by mouth once daily Rx Instructions: Take 1 tablet by mouth once daily omeprazole 40 mg capsule,delayed release(DR/EC) See Rx Instructions .ROUTE .COMPLEX Qty: 90 1RF Dose Instruction: Take 1 Capsule by mouth once daily. Rx Instructions: Take 1 Capsule by mouth once daily. metoprolol tartrate 100 mg tablet See Rx Instructions .ROUTE .COMPLEX Qty: 180 1RF Dose Instruction: Take 1 Tablet by mouth twice daily. Rx Instructions: Take 1 Tablet by mouth twice daily. metformin 500 mg tablet extended release 24 hr See Rx Instructions .ROUTE .COMPLEX Qty: 180 0RF Dose Instruction: Take 2 Tablets by mouth once daily. Rx Instructions: Take 2 Tablets by mouth once daily. glyburide 5 mg tablet See Rx Instructions .ROUTE .COMPLEX Qty: 360 0RF Dose Instruction: Take 4 Tablets by mouth once daily. Rx Instructions: Take 4 Tablets by mouth once daily. amlodipine-valsartan 10-320 mg tablet See Rx Instructions .ROUTE .COMPLEX Qty: 90 1RF Dose Instruction: Take 1 Tablet by mouth once daily. Rx Instructions: Take 1 Tablet by mouth once daily. rosuvastatin 5 mg tablet See Rx Instructions .ROUTE .COMPLEX Qty: 90 0RF Dose Instruction: TAKE 1 TABLET BY MOUTH DAILY Rx Instructions: TAKE 1 TABLET BY MOUTH DAILY Referrals Follow up/Referrals: Aracely Thomas APRN [Primary Care Provider] - See instructions Clinical Impressions Clinical Impression: Pneumonia, Acute hypoxic respiratory failure, Non-ST elevation [place] (NSTEMI) Print Language Print Language: Tajik Discharge ED Provider: Daniel De La Cruz HPI General Chief Complaint: Shortness of Breath/Dyspnea Stated Complaint: SOA Time Seen by Provider: 07/28/24 21:45 History of Present Illness HPI narrative: Patient is a 83-year-old female with past medical history of COPD not on home oxygen [id number] diabetes multiple allergies to medications presents emergency department for evaluation of shortness of breath and cough. Onset was acute since Thursday with productive cough and shortness of breath. No chest pain. Positive sick contacts at home. Due to persistent symptoms they present here for continued evaluation. No other acute complaints at this time. And route patient was placed on 4 L nasal cannula to maintain oxygen saturations greater than 90% was given DuoNeb. Related Data Home Medications ?Medication ?Instructions ?Recorded ?Confirmed cholecalciferol (vitamin D3) 25 25 mcg PO DAILY 04/09/22 07/06/24 mcg (1,000 unit) capsule Previous Rx's ?Medication ?Instructions ?Recorded blood sugar diagnostic (Contour #50 strips 11/26/22 Test Strips) meclizine 25 mg tablet See Rx Instructions .Route 12/31/22 .COMPLEX #30 tabs trimethoprim 100 mg tablet See Rx Instructions .Route 09/21/23 .COMPLEX #90 tabs albuterol sulfate 90 mcg/actuation See Rx Instructions .Route 10/05/23 aerosol inhaler .COMPLEX #36 grams omeprazole 40 mg capsule,delayed See Rx Instructions .Route 04/04/24 release .COMPLEX #90 caps metoprolol tartrate 100 mg tablet See Rx Instructions .Route 04/25/24 .COMPLEX #180 tabs metformin 500 mg tablet,extended See Rx Instructions .Route 05/03/24 release 24 hr .COMPLEX #180 tabs glyburide 5 mg tablet See Rx Instructions .Route 06/06/24 .COMPLEX #360 tabs amlodipine 10 mg-valsartan 320 mg See Rx Instructions .Route 06/20/24 tablet .COMPLEX #90 tabs aspirin 81 mg tablet,delayed 81 mg PO DAILY #100 tabs 07/06/24 release clopidogrel 75 mg tablet (Plavix) 75 mg PO DAILY #90 tabs 07/06/24 rosuvastatin 5 mg tablet See Rx Instructions .Route 07/25/24 .COMPLEX #90 tabs Allergies Allergy/AdvReac Type Severity Reaction Status Date / Time Penicillins Allergy Severe swelling Verified 07/06/24 13:38 doxycycline Allergy Mild Verified 07/06/24 13:38 brompheniramine AdvReac Verified 07/06/24 13:38 bupivacaine (From Marcaine) AdvReac Verified 07/06/24 13:38 cephalexin (From Keflex) AdvReac Verified 07/06/24 13:38 clarithromycin AdvReac Verified 07/06/24 13:38 fluvastatin (From Lescol) AdvReac Verified 07/06/24 13:38 hydrochlorothiazide AdvReac Verified 07/06/24 13:38 lovastatin (From Altocor) AdvReac Verified 07/06/24 13:38 moxifloxacin (From Avelox) AdvReac Verified 07/06/24 13:38 nitrofurantoin (From AdvReac Verified 07/06/24 13:38 Macrobid) triamcinolone (From Kenalog) AdvReac Verified 07/06/24 13:38 PFS PFS Disclaimer: The information contained in this section may have been updated after the patient was seen, as this information can be updated by other users. Medical History Thyroid nodule Visual hallucination Right-sided headache Coronary artery calcification seen on CT scan Pulmonary nodule Vitamin D deficiency Type 2 diabetes mellitus without complications Hyperlipidemia Diabetes mellitus HTN (hypertension) Degenerative joint disease (DJD) of lumbar spine Surgical History H/O removal of cyst History of cholecystectomy Hx of cataract surgery Family History Coronary artery disease Mother Heart attack Brother Stroke Grandmother Social History Smoking Status: Current every day smoker tobacco type: cigarettes packs per day: 1 alcohol intake: never current occupational status: other household members: other housing: house Other Medical History Have you received the Flu Vaccine for this season: Yes Have you received the Pneumonia Vaccine: Yes ROS Obtained: Yes Systems reviewed as appropriate & no additional complaints except as documented Physical Exam General General appearance: alert and in no apparent distress Head Head exam: atraumatic and normocephalic Eye Eye exam: Present PERRL and EOMI ENT ENT exam: Present mucous membranes moist Neck Neck exam: Present normal inspection Chest Chest inspection: Present normal inspection and symmetric chest wall rise Respiratory Respiratory exam: Present respiratory distress, wheezes and accessory muscle use; Absent normal lung sounds bilaterally Cardiovascular Cardiovascular exam: Present regular rate and normal rhythm Abdominal Exam Abdominal exam: Present soft; Absent tenderness Extremities Exam Extremities exam: Present normal inspection Neurological Exam Neurological exam: Present alert; Absent motor sensory deficit Psychiatric Psychiatric exam: Present normal affect Skin Skin exam: Present warm and dry HEART Score HEART Score HEART Score assessment performed?: Yes History (anamnesis): Slightly suspicious ECG: Normal Age: >65 years Risk factors: 3 or more risk factors Troponin: 1-3x normal limit HEART Score: 5 Critical Care Critical Care Time Critical Care Time: Yes Attestation: On 07/28/24, the high probability of a clinically significant, sudden or life threatening deterioration of the following system(s) required my full and direct attention, intervention and personal management. The time I documented below is in addition to time spent performing reported procedures but includes the following listed in this critical care notation. Total Time Total Critical Care Time: 45 Medical Decision Making Cristhian Inquiry Pt receiving controlled substance: No Vital Signs Vital Signs: 07/28/24 21:57 07/28/24 22:19 07/28/24 22:19 Temperature 99.1 F Temperature Source Oral Pulse Rate 80 Pulse Rate [Left Radial] 86 Respiratory Rate 17 Blood Pressure [Right Arm] 175/79 H Blood Pressure Mean [Right Arm] 111 Blood Pressure Source [Right Arm] Automatic Cuff 02 Sat by Pulse Oximetry 92 L 94 L Oxygen Delivery Method Nasal Cannula Nasal Cannula Oxygen Flow Rate (LPM) 2 2 Lab Data Labs: Lab Results 07/28/24 22:08: VBG pH 7.31, VBG pCO2 50.1, VBG pO2 50.9 H, VBG HCO3 24.7, VBG Total CO2 26.3, VBG O2 Saturation 84.5 H, VBG Base Excess -1.5, VBG Lactic Acid 3.4 H 07/28/24 22:26: WBC 9.9, RBC 5.27, Hgb 15.8, Hct 48.5 H, MCV 92.1, MCH 30.1, MCHC 32.7, RDW 13.5, Plt Count 233, MPV 7.5, Neut % (Auto) 83.8 H, Lymph % (Auto) 9.9 L, [place] % (Auto) 4.3, Eos % (Auto) 1.2, Baso % (Auto) 0.8, Neut # (Auto) 8.3 H, Lymph # (Auto) 1.0, [place] # (Auto) 0.4, Eos # (Auto) 0.1, Baso # (Auto) 0.1, Sodium 140, Potassium 4.2, Chloride 106, Carbon Dioxide 26, Anion Gap 12.2, BUN 17, Creatinine 0.60, Estimated Creat Clear 43, Estimated GFR 95, Est GFR ( Amer) 116, Glucose 226 H, Calcium 9.4, Total Bilirubin 0.6, AST 33, ALT 22, Alkaline Phosphatase 85, Troponin I 0.05 H, Total Protein 7.5, Albumin 4.3, Globulin 3.2, Albumin/Globulin Ratio 1.3, HIV 1&2 Antibody Rapid Nonreactive 07/28/24 23:05: SARS-CoV-2 (PCR) Not detected, Influenza A Untype (PCR) Not detected, Influenza Type B (PCR) Not detected 07/28/24 22:26 07/28/24 22:26 Response Orders (Tests/Meds): ED MEDICATIONS Discontinued Medications Generic Name Dose Route Start Last Admin Trade Name Lucio PRN Reason Stop Dose Admin Albuterol/Ipratropium 9 ml 07/28/24 22:07 07/28/24 22:19 Ipratropium/Albuterol 3 Ml Neb IH 07/28/24 22:08 9 ml ONCE ONE Administration Magnesium Sulfate 2 gm in 50 mls @ 50 mls/hr 07/28/24 22:07 07/28/24 22:32 Magnesium Sulfate 2gm/50ml Premix IV 07/28/24 23:06 50 mls/hr ONCE ONE Administration Azithromycin 500 mg/ Sodium 250 mls @ 250 mls/hr 07/28/24 23:53 Chloride IV 07/28/24 23:54 ONCE ONE Methylprednisolone Sodium Succinate 125 mg 07/28/24 22:07 07/28/24 22:32 Methylprednisolone Sod Succ 125mg Vial IV 07/28/24 22:08 125 mg ONCE ONE Administration ORDERS Category Date Time Status CXR 2 view (NOT portable) [XR chest 2V] Stat Exams 07/28/24 22:07 Taken CBC w/Auto Diff [Complete Blood Count Auto Diff] Stat Lab 07/28/24 22:26 Completed CMP [Comprehensive Metabolic Panel] Stat Lab 07/28/24 22:26 Completed HIV (1&2) Antibody Rapid Stat Lab 07/28/24 22:26 Completed Hep C Ab with Reflex to RNA Stat Lab 07/28/24 22:26 Received Rapid PCR Covid and Flu A/B Stat Lab 07/28/24 23:05 Completed Trop I [Troponin I] Stat Lab 07/28/24 22:26 Completed Troponin I Q3H Lab 07/29/24 01:15 Ordered Troponin I Q3H Lab 07/29/24 04:15 Ordered VBG [Venous Blood Gas] Stat RT 07/28/24 22:08 Completed EKG Request [ECG Request] Stat Y 07/28/24 22:07 Ordered ECG Data Tracing #1: ECG Narrative: Independently interpreted by me rate is 83, rhythm is regular, axis is normal, no ST elevation in anatomical contiguous leads, QTc 390 MDM Narrative Medical Decision Narrative: In summary patient is a 83-year-old female past medical history described above presents emergency department for evaluation shortness of breath in setting of COPD. Patient is hemodynamically stable and nontoxic-appearing upon arrival, in respiratory distress on 4 L nasal cannula to maintain oxygen saturation greater 90%. Patient has biphasic wheezing. I suspect COPD exacerbation. Differential includes pneumonia, among others. Workup be conducted hematologic labs two-view chest x-ray viral swab. No inventions include 2 g of magnesium sulfate IV methylprednisolone DuoNebs x 3. Crystalloid resuscitation was considered however she appears largely euvolemic will be deferred. Initial work reviewed by me, no significant leukocytosis, remarkably compensated acid-base status considering her diffuse wheezing. Initial troponin 0.05 which I suspect is due to cardiac stress from her pulmonary disease as she has no current chest pain and no concerning significant ischemic changes on her EKG. Viral swab negative. Looking at patient's x-ray she appears to have atypical pneumonia with interstitial opacities will be started on azithromycin after questioning given cross-reactivity with clarithromycin she has tolerated this previously. Patient is on 2 L nasal cannula upon repeat evaluation will be given continuous albuterol for an hour. The case discussed with hospital medicine regarding management who admit the patient their service for continued evaluation at this time.
[2024-07-28] MEDS: IPRATROPIUM/ALBUTEROL 3 ML NEB 9 ML IH (22:19)
[2024-07-28] MEDS: METHYLPREDNISOLONE SOD SUCC 125MG VIAL 125 MG IV (22:32)
[2024-07-28] MEDS: MAGNESIUM SULFATE IN WATER 2 GM/50 ML PIGGYBACK IV (22:32)
[2024-07-28 22:43] LABS: Albumin Level 4.3 g/dl (3.5-5.0); Chloride 106 mmol/L (98-107); Sodium 140 mmol/L (136-145)
[2024-07-28 22:44] LABS: Potassium 4.2 mmoL/L (3.5-5.1)
[2024-07-28 22:44] LABS: VBG Base Excess -1.5 mmol/L (-2.4-2.3); VBG HCO3 24.7 mmol/L (23-30); VBG Oxygen Saturation 84.5 % (50-70); VBG PH 7.31 mmol/L (7.31-7.41); VBG PO2 50.9 mmol/L (28-40); VBG Total CO2 26.3 mmol/L (23-27)
[2024-07-28 22:46] LABS: Alanine Aminotransferase 22 U/L (12-78); Albumin/Globulin Ratio 1.3 (1.1-1.8); Alkaline Phosphatase 85 U/L (38-126); Anion Gap 12.2 mEq/L (5-15); Aspartate Amino Transferase 33 U/L (14-36); Basophils # 0.1 K/mm3 (0-0.2); Basophils % 0.8 % (0.1-2.0); Bilirubin,Total 0.6 mg/dl (0.2-1.3); Blood Urea Nitrogen 17 mg/dl (7-17); Carbon Dioxide 26 mmol/L (22.0-30.0); Creatinine Clearance Estimated 43 mL/min (50-200); Eosinophils # 0.1 K/mm3 (0.0-0.4); Eosinophils % 1.2 % (0.1-12.0); Estimated Glomerular Filt Rate 95 ml/min (>60); GFR (African American) 116 ML/MIN (>60); Globulin 3.2 g/dL (1.3-3.2); Hematocrit 48.5 % (37.0-47.0); Hemoglobin 15.8 g/dL (12.2-16.2); Lymphocytes % 9.9 % (10-50); Mean Corpuscular HGB Conc 32.7 g/dL (31.8-35.4); Mean Corpuscular Hemoglobin 30.1 pg (27.0-31.2); Mean Corpuscular Volume 92.1 fl (81-99); Mean Platelet Volume 7.5 fl (7.4-10.4); Monocytes # 0.4 K/mm3 (0.1-1.0); Monocytes % 4.3 % (1.7-9.3); Neutrophils # 8.3 K/mm3 (1.8-7.8); Neutrophils % 83.8 % (37.0-80.0); Platelet Count 233 K/mm3 (142-424); Red Blood Count 5.27 M/mm3 (4.20-5.40); Red Cell Distribution Width 13.5 % (11.5-17.5); Total Protein,Serum 7.5 g/dl (6.3-8.2); White Blood Count 9.9 K/mm3 (4.8-10.8)
[2024-07-28 22:47] LABS: Calcium 9.4 mg/dl (8.4-10.2); Glucose 226 mg/dl (74-100)
[2024-07-28 22:49] LABS: Lactate Venous 3.4 mmol/L (0.4-2.0); VBG PCO2 50.1 mmol/L (35-51)
--- NOTE | 2024-07-28 22:49 | PC.NURSE ---
VBG results given to physician
--- NOTE | 2024-07-28 22:49 | PC.NURSE ---
Ph 7.31 CO2 50.1 O2 50.9 Bicarb 24.7 Lactic [address] De La Cruz
[2024-07-28 22:58] LABS: Troponin I 0.05 ng/ml (0.00-0.034)
[2024-07-28 23:11] LABS: HIV (1&2) Antibody Rapid NONREACTIVE (NONREACTIVE)
[2024-07-28 23:12] LABS: Coronavirus 19, PCR Not Detected (NotDetected); Influenza A, PCR Not Detected (NotDetected); Influenza B, PCR Not Detected (NotDetected)
--- NOTE | 2024-07-28 23:56 | PC.NURSE ---
Report called to Bertram GRAHAM
[2024-07-29] VITALS (12 sets, daily range): BP systolic 136–166; BP diastolic 48–122; PULSE 80–111; RESP 14–25; TEMP 36.4–37.3; O2SAT 93–96; BMI 27.5
[2024-07-29] MEDS: AZITHROMYCIN 500 MG in 0.9 % SODIUM CHLORIDE 250 ML 250 MG IV (01:05)
--- NOTE | 2024-07-29 01:10 | P.HP_ITS ---
<Statement entered by Adolfo Gonzales MD - 07/30/24 06:48> Admitted for COPD exacerbation, new oxygen requirement of 2 L. Lactate bumped to 10 after continuous albuterol in the ED. Improved after bicarb drip. History of Present Illness *Admission Date: 07/29/24 *Reason for visit:: Shortness of breath *History of present illness: Patricia Hills is an 83-year-old female past medical history significant for CAD, type 2 diabetes, HTN, HLD, COPD who presents emergency room tonight with complaints of shortness of breath. Ms. Hills states her shortness of breath started on Thursday. Reported subjective fever with chills and muscle aches on Thursday only. Reports she has been coughing, nonproductive since Thursday. Reports she had difficulty resting tonight, otherwise had planned on going to her primary care physician tomorrow. Denies any known sick contacts. Denies any chest pain, abdominal pain, bowel or bladder dysfunction. No focal neurodeficits noted. Does take Plavix, no other blood thinners. Does not wear oxygen at home. Denies alcohol use, illicit drug use, does smoke cigarettes, about a pack per day. Workup in the ER showed initial troponin of 0.05, flu and COVID were negative. Lactic acid on her VBG was 3.4. VBG showed a pH of 7.3, pCO2 of 50, pO2 of 50 with a bicarb of 24. WBCs at 9.9 thousand. Patient was noted to be hypoxic when she arrived with SpO2 down in the 80s. Was noted to have wheezes, had DuoNebs, started on azithromycin, and given steroids. Chest x-ray was nonactionable. She will be admitted to the hospitalist service for COPD exacerbation. [facility] Disclaimer: The information contained in this section may have been updated after the patient was seen, as this information can be updated by other users. Medical History Thyroid nodule Visual hallucination Right-sided headache Coronary artery calcification seen on CT scan Pulmonary nodule Vitamin D deficiency Type 2 diabetes mellitus without complications Hyperlipidemia Diabetes mellitus HTN (hypertension) Degenerative joint disease (DJD) of lumbar spine Surgical History H/O removal of cyst History of cholecystectomy Hx of cataract surgery Family History Coronary artery disease Mother Heart attack Brother Stroke Grandmother Social History Smoking Status: Current every day smoker tobacco type: cigarettes packs per day: 1 alcohol intake: never current occupational status: other household members: other housing: house Other Medical History Have you received the Flu Vaccine for this season: Yes Have you received the Pneumonia Vaccine: Yes Review of Systems Review of Systems Review of systems:: pertinent systems reviewed and negative unless documented below Constitutional Constitutional: Reports fatigue and Reports lethargy *Cardiovascular Cardiovascular: Reports dyspnea *Respiratory Respiratory: Reports cough and Reports dyspnea Endocrine Endocrine: Reports fatigue Meds Home Medications and Allergies Home Medications ?Medication ?Instructions ?Recorded ?Confirmed ?Type cholecalciferol (vitamin D3) 25 25 mcg PO DAILY 04/09/22 07/06/24 History mcg (1,000 unit) capsule blood sugar diagnostic (Contour #50 strips 11/26/22 07/06/24 Rx Test Strips) meclizine 25 mg tablet See Rx Instructions .Route 12/31/22 07/06/24 Rx .COMPLEX #30 tabs trimethoprim 100 mg tablet See Rx Instructions .Route 09/21/23 07/06/24 Rx .COMPLEX #90 tabs albuterol sulfate 90 mcg/actuation See Rx Instructions .Route 10/05/23 07/06/24 Rx aerosol inhaler .COMPLEX #36 grams omeprazole 40 mg capsule,delayed See Rx Instructions .Route 04/04/24 07/06/24 Rx release .COMPLEX #90 caps metoprolol tartrate 100 mg tablet See Rx Instructions .Route 04/25/24 07/06/24 Rx .COMPLEX #180 tabs metformin 500 mg tablet,extended See Rx Instructions .Route 05/03/24 07/06/24 Rx release 24 hr .COMPLEX #180 tabs glyburide 5 mg tablet See Rx Instructions .Route 06/06/24 07/06/24 Rx .COMPLEX #360 tabs amlodipine 10 mg-valsartan 320 mg See Rx Instructions .Route 06/20/24 07/06/24 Rx tablet .COMPLEX #90 tabs aspirin 81 mg tablet,delayed 81 mg PO DAILY #100 tabs 07/06/24 07/06/24 Rx release clopidogrel 75 mg tablet (Plavix) 75 mg PO DAILY #90 tabs 07/06/24 07/06/24 Rx rosuvastatin 5 mg tablet See Rx Instructions .Route 07/25/24 Rx .COMPLEX #90 tabs New Prescriptions to Start Prescriptions: Allergies Allergy/AdvReac Type Severity Reaction Status Date / Time Penicillins Allergy Severe swelling Verified 07/06/24 13:38 doxycycline Allergy Mild Verified 07/06/24 13:38 brompheniramine AdvReac Verified 07/06/24 13:38 bupivacaine (From Marcaine) AdvReac Verified 07/06/24 13:38 cephalexin (From Keflex) AdvReac Verified 07/06/24 13:38 clarithromycin AdvReac Verified 07/06/24 13:38 fluvastatin (From Lescol) AdvReac Verified 07/06/24 13:38 hydrochlorothiazide AdvReac Verified 07/06/24 13:38 lovastatin (From Altocor) AdvReac Verified 07/06/24 13:38 moxifloxacin (From Avelox) AdvReac Verified 07/06/24 13:38 nitrofurantoin (From AdvReac Verified 07/06/24 13:38 Macrobid) triamcinolone (From Kenalog) AdvReac Verified 07/06/24 13:38 Exam Data for Last 24 hours Vital signs and Labs for Last 24 Hours: Temp Pulse Resp BP Pulse Ox O2 Del Method O2 Flow Rate 98.4 F 85 23 153/61 H 94 L Nasal Cannula 2 07/29/24 01:02 07/29/24 01:02 07/29/24 01:02 07/29/24 01:02 07/29/24 01:02 07/29/24 01:02 07/29/24 01:02 Laboratory Results - last 24 hr 07/28/24 22:08: VBG pH 7.31, VBG pCO2 50.1, VBG pO2 50.9 H, VBG HCO3 24.7, VBG Total CO2 26.3, VBG O2 Saturation 84.5 H, VBG Base Excess -1.5, VBG Lactic Acid 3.4 H 07/28/24 22:26: WBC 9.9, RBC 5.27, Hgb 15.8, Hct 48.5 H, MCV 92.1, MCH 30.1, MCHC 32.7, RDW 13.5, Plt Count 233, MPV 7.5, Neut % (Auto) 83.8 H, Lymph % (Auto) 9.9 L, [place] % (Auto) 4.3, Eos % (Auto) 1.2, Baso % (Auto) 0.8, Neut # (Auto) 8.3 H, Lymph # (Auto) 1.0, [place] # (Auto) 0.4, Eos # (Auto) 0.1, Baso # (Auto) 0.1, Sodium 140, Potassium 4.2, Chloride 106, Carbon Dioxide 26, Anion Gap 12.2, BUN 17, Creatinine 0.60, Estimated Creat Clear 43, Estimated GFR 95, Est GFR ( Amer) 116, Glucose 226 H, Calcium 9.4, Total Bilirubin 0.6, AST 33, ALT 22, Alkaline Phosphatase 85, Troponin I 0.05 H, Total Protein 7.5, Albumin 4.3, Globulin 3.2, Albumin/Globulin Ratio 1.3, HIV 1&2 Antibody Rapid Nonreactive 07/28/24 23:05: SARS-CoV-2 (PCR) Not detected, Influenza A Untype (PCR) Not detected, Influenza Type B (PCR) Not detected I & O for Last 24 hours: Intake & Output 07/26/24 07/27/24 07/28/24 07/29/24 23:59 23:59 23:59 23:59 Weight 63.503 kg 67.857 kg Constitutional Constitutional: no acute distress *Routine HEENT Exam Head: Present normocephalic Eye: Present EOMI and PERRL ENT: Present mucous membranes moist *Routine Neck Exam Neck: Present supple; Absent lymphadenopathy *Routine Respiratory Exam Respiratory: Present wheezes Comments: Expiratory wheezes *Routine Cardiovascular Exam Cardiovascular: Present RRR *Routine Abdominal Exam Abdominal: Present soft and normoactive bowel sounds; Absent tenderness *Routine Rectal Exam Rectal:: deferred *Routine Genitalia Exam Genitalia:: deferred *Routine Extremities Exam Extremities: Absent cyanosis, clubbing or edema *Routine Skin Exam Skin: Present warm; Absent rash *Routine Neurological Exam Neurological: Present alert and oriented X3 Assessment and Plan *Assessment and plan (1) Acute hypoxic respiratory failure: Status: Acute Category: Medical Code(s): J96.01 - Acute respiratory failure with hypoxia (2) Non-ST elevation ID (NSTEMI): Status: Acute Category: Medical Code(s): I21.4 - Non-ST elevation (NSTEMI) myocardial infarction (3) Pneumonia: Status: Acute Category: Medical Code(s): J18.9 - Pneumonia, unspecified organism (4) Type 2 diabetes mellitus without complications: Status: Acute Category: Medical Code(s): E11.9 - Type 2 diabetes mellitus without complications (5) Hyperlipidemia: Status: Acute Category: Medical Code(s): E78.5 - Hyperlipidemia, unspecified (6) HTN (hypertension): Status: Acute Category: Medical Code(s): I10 - Essential (primary) hypertension Plan Assessment: This is an 83-year-old female being admitted for acute hypoxic respiratory failure likely secondary to viral pneumonia. On my exam, patient is lying in bed in no acute distress. No complaints at this time. Plan: Admit to inpatient-MedSurg Acute hypoxic respite failure COPD exacerbation Viral pneumonia? -Maintain SpO2 greater than 92%, supplemental oxygen as needed please wean oxygen as tolerated, patient does not wear oxygen at baseline -Patient without white count, no productive cough noted, no infiltrate seen on chest x-ray. Will hold off on additional antibiotics at this time -Continue steroids daily -Aggressive pulmonary toilet -If patient develops productive sputum, could consider adding Mucinex NSTEMI -Likely related to patient's hypoxia -Patient has absolutely no chest pain, no EKG changes -Telemetry -Serial troponins Type 2 diabetes -SSI for glycemic control in the hospital -Last A1c done in March was 7.2 HTN HLD -Continue amlodipine, substitute valsartan for irbesartan -Continue beta-rajesh -Continue statin DVT prophylaxis: Heparin CODE STATUS: Full code Surrogate decision maker: Kylah [phone] Skin: Low risk Estimate length of stay: Greater than 2 midnights
[2024-07-29 01:44] LABS: Reflex Lactic Add Lactic Reflex
[2024-07-29] MEDS: ALBUTEROL 0.083% 2.5 MG/3 ML NEB 20 MG IH (01:58)
[2024-07-29 02:02] LABS: Lactic Acid Follow Up (RFLX 1) 3.2 mmol/L (0.7-2.1)
[2024-07-29 02:12] LABS: Troponin I 0.03 ng/ml (0.00-0.034)
[2024-07-29 03:46] LABS: Reflex Lactic (2 hrs) Add Lactic Reflex
[2024-07-29 04:32] LABS: Basophils % 0.4 % (0.1-2.0); Chloride 104 mmol/L (98-107); Hematocrit 47.9 % (37.0-47.0); Hemoglobin 15.2 g/dL (12.2-16.2); Lymphocytes # 0.7 K/mm3 (0.7-4.5); Lymphocytes % 8.4 % (10-50); Mean Corpuscular HGB Conc 31.8 g/dL (31.8-35.4); Mean Corpuscular Hemoglobin 30.5 pg (27.0-31.2); Mean Corpuscular Volume 95.9 fl (81-99); Mean Platelet Volume 7.6 fl (7.4-10.4); Monocytes # 0.1 K/mm3 (0.1-1.0); Monocytes % 1.8 % (1.7-9.3); Neutrophils # 7.2 K/mm3 (1.8-7.8); Neutrophils % 89.5 % (37.0-80.0); Platelet Count 243 K/mm3 (142-424); Red Blood Count 4.99 M/mm3 (4.20-5.40); Red Cell Distribution Width 13.5 % (11.5-17.5); Sodium 142 mmol/L (136-145); White Blood Count 8.1 K/mm3 (4.8-10.8)
[2024-07-29 04:33] LABS: Potassium 3.3 mmoL/L (3.5-5.1)
[2024-07-29 04:34] LABS: MANUAL DIFFERENTIAL MANUAL DIFFERENTIAL (MANUAL DIFF)
[2024-07-29 04:35] LABS: Anion Gap 23.3 mEq/L (5-15); Blood Urea Nitrogen 18 mg/dl (7-17); Carbon Dioxide 18 mmol/L (22.0-30.0); Creatinine Clearance Estimated 46 mL/min (50-200); Estimated Glomerular Filt Rate 60 ml/min (>60); GFR (African American) 72 ML/MIN (>60)
[2024-07-29 04:36] LABS: Calcium 9.2 mg/dl (8.4-10.2)
[2024-07-29 04:38] LABS: Lactic Acid Follow up (RFLX 2) 9.3 mmol/L (0.7-2.1)
[2024-07-29 04:42] LABS: Glucose 405 mg/dl (74-100)
[2024-07-29 04:47] LABS: Troponin I 0.02 ng/ml (0.00-0.034)
[2024-07-29] MEDS: LACTATED RINGERS 1000ML 1,000 ML 999 ML IV (04:56)
[2024-07-29] MEDS: humaLOG 100 UNITS/ML 10ML VIAL (SSI) 5 UNIT SUBCUT (05:10)
[2024-07-29 05:17] LABS: Appearance,Urine CLEAR (Clear); Bilirubin,Urine Negative (Negative); Blood, Urine TRACE-I (Negative); Color,Urine YELLOW (Yellow); Glucose,Urine (UA) TRACE (Negative); Ketones,Urine Negative (Negative); Leukocyte Esterase,Urine NEGATIVE (Negative); Nitrate,Urine NEGATIVE (Negative); Protein,Urine 1+ (Negative); Specific Gravity, Urine >= 1.030 (1.005-1.030); Urobilinogen,Urine 0.2 EU/dl (0.2)
[2024-07-29 05:18] LABS: Lactic Acid 9.4 mmol/L (0.7-2.1)
[2024-07-29 05:20] LABS: Microscopic, Urine URINE MICROSCOPIC (MICROSCOPIC)
[2024-07-29 05:30] LABS: Lymphocytes % 6 % (10-50); Neutrophils % 94 % (42-76); Total Cells Counted 100
[2024-07-29 05:31] LABS: Platelet Estimate Normal; RBC Morphology Normal
[2024-07-29 05:34] LABS: Bacteria,Urine 2+ /lpf; RBC,Urine Occasional #/hpf (0-3)
[2024-07-29] MEDS: POTASSIUM CHLORIDE 20MEQ TAB 40 MEQ PO ×2 (07:04→10:44)
[2024-07-29] MEDS: humaLOG 100 UNITS/ML 10ML VIAL (SSI) SUBCUT ×4 (07:06→21:08)
--- OUTSIDE RECORDS SUMMARY | 2024-07-29 07:36 | XMS_ITS | Encounter Summary ---
Author Organization Healthcare Address [address] [place] [address] Care Team Providers Care Limnology Teacher Name Role Phone Unavailable Primary Care Provider Unavailabl e Encounter Details Date Type Department Care Team (Late st Contact Info) Description 05/12/2024 Orders Only External Location [address] [place] [address] Charlotte Jung, [address] [place] [address] Social History Tobacco Use Types Packs/Day Years Used Date Smoking Tobacco: Never Assessed Comments Unknown Sex and Gender Information Value Date Recorded Sex Assigned at Not on file Legal Sex Female 12:54 PM EDT Gender Identity Not on file Sexual Orientation Not on file documented as of this encounter Plan of Treatment Not on file documented as of this encounter Procedures Procedure Name Priority Date/Time Associated Diagnosis Comments CT OUTSIDE IMAGES 05/12/2024 1:45 PM EDT documented in this encounter Results * CT OUTSIDE IMAGES (05/12/2024 1:45 PM EDT) Anatomical Region Laterality Modality Computed Tomogra phy 05/12/2024 1:45 PM EDT [address] CT PROCEDURES Final Result documented in this encounter Visit Diagnoses Not on filedocumented in this encounter
--- OUTSIDE RECORDS SUMMARY | 2024-07-29 07:36 | XMS_ITS | Encounter Summary ---
Author Organization Healthcare Address [address] [place] [address] Care Team Providers Care Rodeo Clown Name Role Phone Unavailable Primary Care Provider Unavailabl e Encounter Details Date Type Department Care Team (Late st Contact Info) Description 05/12/2024 Orders Only External Location [address] [place] [address] Charlotte Jung, [address] [place] [address] Social History Tobacco Use Types [...]
--- OUTSIDE RECORDS SUMMARY | 2024-07-29 07:36 | XMS_ITS | Encounter Summary ---
Author Organization [facility] [place] [address] Care Team Providers Care Fruit Preserver Name Role Phone Unavailable Primary Care Provider Unavailabl e Encounter Details Date Type Department Care Team (Late st Contact Info) Description 02/03/2000 9:40 AM EDT - 02/03/2000 2:32 PM EDT Hospital Encounter [facility] Karly Duval MD [address] [place] [address] [place] [address] Social History Tobacco Use Types Packs/Day Years Used Date Smoking Tobacco: Never Assessed Comments Unknown Sex and Gender Information Value Date Recorded Sex Assigned at Not on file Legal Sex Female 4:52 AM EDT Gender Identity Not on file Sexual Orientation Not on file documented as of this encounter Plan of Treatment Not on file documented as of this encounter Visit Diagnoses Not on filedocumented in this encounter
--- OUTSIDE RECORDS SUMMARY | 2024-07-29 07:36 | XMS_ITS | Continuity of Care Document ---
Author Organization [facility], GENERAL SURGERY [facility] Address [address] [place] [address] Care Team Providers Care Lockstitch Collar Setter Name Role Phone AILYN ALETHA BRUMFIELD Denture Laboratory Technician SEN REICH JR General Surgeon MOOKIE PEREZ Primary Care Provider Assessment No assessment recorded. Plan of Treatment Reminders Order Date Submit Date Provider Last Modified By Organization Details Last Modified Time Details Appointments None record ed. Lab None record ed. Referral None record ed. Procedures None record ed. Surgeries None record ed. Imaging None record ed. Medication Orders None record ed. Patient TargetsNo targets recorded. Patient InstructionsNo instructions recorded. Reason for Referral None Reported. Results Created Date Observation Date Name Description Value Unit Range Abnormal Flag Note LastModifiedBy Organization Detail LastModifiedTime 06/20/20 24 06/13/2024 US, carlitost id arter y No observ ation record ed. [email or web address] [address], [place], [address], 06/21/2024 11:05:07 Result Notes None recorded. Problems Name Problem SNOMED Code Status Onset Date Resolution Date Notes Provider Name and Address Organization Details Recorded Time Left carotid artery stenosis 1239531099789 03 Active 2023 SEN REICH JR, MD [address] [place] [address], [phone], [facility] 13:00:31 Neoplasm of parotid gland 854511105 Active 2023 SEN REICH JR, MD [address] [place] [address], [phone], [facility] 13:00:58 Tobacco dependence syndrome 39998403 Active 2023 SEN REICH JR, MD [address] [place] [address], [phone] [place] [address] 13:01:13 Arthritis 7838009 Active 2023 Cecillecruzito Brown [facility] 13:17:13 Hyperlipide alfonso 75320334 Active 2023 Cecille Stephanie [facility] 13:17:27 Type 2 diabetes mellitus 76791436 Active 2023 Lavonia Stephanie [facility] 13:20:26 Nodule of lung 265972721 Active 2023 Lavonia Stephanie [facility] 13:22:04 Calcificati on of coronary artery 742536240 Active 2023 Lavonia Stephanie [facility] 13:22:35 Vitamin D deficiency 74385673 Active 2023 Lavonia Stephanie [facility] 13:22:53 Hypertensiv e disorder 30287757 Active 2023 Lavonia Stephanie [facility] 13:23:11 Notes:thyroid nodule Problem Notes None recorded. Procedures Surgical History Date Name Laterality Status Provider Name and Address Organization Details Recorded Time [facility] 13:16:44 Imaging Results None recorded. Procedure Notes None recorded. Medical Equipment None Reported. Allergies Allergen ID Allergen Name Allergen Category Reaction Reaction Severity Criticality Documentation Date Start Date Code Code System Note Provider Name and Address Organization Details Recorded Time 854569 Altocor medicatio n Not available Not available Not available 06/09/2024 64642 0 RxNorm Cecille Brown [facility] 11:57:40 198044 Medicinal product containin g penicilli n and acting as antibacte rial agent (product) medicatio n Not available Not available Not available 06/09/2024 84844 05 SNOMED [facility] 11:57:51 752426 Lescol medicatio n Not available Not available Not available 06/09/2024 10631 2 RxNorm Cecille Brown null, [facility] 4 11:58:33 781311 Cipro medicatio n Not available Not available Not available 06/09/202464545 3 RxNorm Cecillecruzito Brown null, [facility] 4 11:58:41 687842 Levaquin medicatio n Not available Not available Not available 06/09/2024 23325 2 RxNorm Cecille Brown null, [facility] 11:58:52 884822 Medicinal product containin g nitrofura n derivativ e and acting as antibacte rial agent (product) medicatio n Not available Not available Not available 06/09/2024 97705 2000 SNOMED [facility]ito [facility] 12:28:38 302665 nitrofura ntoin medicatio n Not available Not available Not available 06/09/2024 7454 RxNorm [facility] 12:00:55 865590 Macrobid medicatio n Not available Not available Not available 06/09/2024 56153 1 RxNorm Cecillecruzito Brown null, [facility] 4 12:01:01 082085 Avelox medicatio n Not available Not available Not available 06/09/2024 12919 6 RxNorm Cecille Stephanie null, [facility] 4 12:01:10 549779 Ceclor medicatio n Not available Not available Not available 06/09/202420472 5 RxNorm Cecille Stephanie null, [facility] 4 12:01:20 403359 clarithro mycin medicatio n Not available Not available Not available 06/09/202453973 RxNorm [facility] 4 12:02:53 943791 Marcaine medicatio n Not available Not available Not available 06/09/2024 72312 97 RxNorm [facility] 12:03:30 195395 Kenalog medicatio n Not available Not available Not available 06/09/2024 7 RxNorm [facility] 12:03:41 012366 Biaxin medicatio n Not available Not available Not available 06/09/2024 9 RxNorm [facility] 12:04:25 464516 Invokana medicatio n Not available Not available Not available 06/09/2024 06175 64 RxNorm [facility] 12:06:11 485787 Keflex medicatio n Not available Not available Not available 06/09/202443770 7 RxNorm Cecille Brown [facility] 12:06:44 012609 hydrochlo rothiazid e medicatio n Not available Not available Not available 06/09/2024 5487 RxNorm [facility] 12:07:37 140876 dexametha sone medicatio n Not available Not available Not available 06/09/2024 3264 RxNorm eCcille Brown [facility] 4 12:08:02 642898 erythromy sumaya medicatio n Not available Not available Not available 06/09/2024 4053 RxNorm [facility] 4 12:08:29 966350 brompheni ramine Not available Not available Not available Not available 06/09/2024 1767 RxNorm [facility] 12:29:50 Medications Name Sig Start Date Stop Date Status Note LastModified by Organization Details LastModified Time glyburide 5 mg tablet Take 1 tablet 4 times a day by oral route as directed. active Not Available Not Available No t Available metoprolol tartrate 100 mg tablet Take 1 tablet twice a day by oral route as directed. active Not Available Not Available No t Available trimethoprim 100 mg tablet Take 1 tablet every 12 hours by oral route as directed. active Not Available Not Available No t Available Plavix 75 mg tablet Take 1 tablet every day by oral route as directed. active Not Available Not Available No t Available omeprazole 40 mg capsule,delaye d release Take 1 capsule every day by oral route as directed. active Not Available Not Available No t Available aspirin 81 mg tablet,delayed release Take 1 tablet every day by oral route as directed. active Not Available Not Available No t Available metformin 1,000 mg tablet Take 1 tablet twice a day by oral route as directed. active Not Available Not Available No t Available rosuvastatin 5 mg tablet Take 1 tablet every day by oral route as directed. active Not Available Not Available No t Available Vitamin D3 1000iu daily active Not Available Not Available No t Available Ventolin HFA 4 puff per day active Not Available Not Available No t Available amlodipine 10 mg-valsartan 320 mg-hydrochloro thiazide 25 mg tablet Take 1 tablet every day by oral route as directed. active Not Available Not Available No t Available Vitals Date Recorded Body height Heart rate Systolic blood pressure Diastolic blood pressure Provider Name and Address Organization Details Last Updated DateTime 06/09/2024 157.48 cm 68 /min 128 mm[Hg] 69 mm[Hg] [facility] 06/09/2024 12:16:41 Social History None recorded. Functional Status None recorded. Mental Status None recorded. Family History Nothing Reported. Medical History Condition Response Coronary Artery Disease N Thyroid Disease N COPD Y Stroke N Crohn's Disease N Liver Disease N Kidney Disease N Gallbladder Disease Y Colon Polyps N Diabetes Y Congestive Heart Failure (CHF) N Diverticulitis N Asthma N Gynecological HistoryNo gynecological history recorded. Obstetrics History GPAL:G 0 P 0 0 0 0 Past Encounters Encounter ID Performer Location Encounter Start Date Encounter Closed Date Diagnosis/Indication Diagnosis SNOMED-CT Code Diagnosis ICD10 Code [id number] SEN REICH JR, MD GENERAL SURGERY [address] [place] [address] 06/09/2024 11:28:36 06/10/2024 10:23:50 Left carotid artery stenosis 9590966478 40760 I65.22 Neoplasm o f parotid gland 676927160 D49.0 Tobacco de pendence syndrome 02641596 F17.200 Health Concerns Section Related Observation LastModified by Organization Detai ls LastModified Time None Recorded Concern Status LastModified by Organization Details LastModified Time None Recorded Payers Encounter Date Sequence Insurance Name Policy Number Policy Richards Covered Member ID Richards Member ID Guarantor Name 06/09/2024 1 [employer] (MEDICARE REPLACEMENT HMO) [id number] Patricia Hills [id number] Patricia Hills 06/09/2024 2 MEDICAID-[facility] - FFS/TRADITIONA L Patricia Hills [id number] Patricia Hills Notes Date Note Type Note Provider Name and Address Organization Details Recorded Time 06/09/2024 text/html 06/09/2024 I am seeing . Patricia Hills for evaluation of left carotid artery stenosis. She is an 83-year-old female smoker who had recent hallucination. CTA of the neck showed her to have 50% right carotid stenosis, 90% stenosis left carotid bulb, dominant right vertebral artery. Incidentally 16 mm right parotid gland mass was noted. Severe degenerative changes noted in the cervical spine She denies history of TIA. Her hallucinations have resolved. She never had stroke. 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 She denies history of chest pain or myocardial infarction. She has history of dyslipidemia, hypertension, diabetes and ongoing smoking. I explained to her stopping smoking will help prevent strokes She walks with a walker. She has some memory loss SEN REICH JR, MD [facility] [place], [address], [facility] 06/21/2024 08:37:58 OBGyn Episode No OBEpisode recorded.
--- OUTSIDE RECORDS SUMMARY | 2024-07-29 07:36 | XMS_ITS | Data Portability ---
Author Organization [facility] Address [address] [place] [address] Care Team Providers Care Anesthesiologist Assistant Certified Name Role Phone ALETHA ROBERTSON Tobacco Hanger SEN REICH JR General Surgeon MOOKIE PEREZ [...] Organization Detail LastModifiedTime 06/20/20 24 06/13/2024 US, anne id arter y No observ ation record ed. [email or web address] [address], [place], [address], 06/21/2024 11:05:07 Result Notes None recorded. Problems Name Problem SNOMED Code Status Onset Date Resolution Date Notes Provider Name and Address Organization Details Recorded Time Left carotid artery stenosis 7331924447110 03 Active 2023 SEN REICH JR, MD [address] [place] [address], [phone], [facility] 13:00:31 Neoplasm of parotid gland 373119292 Active 2023 SEN REICH JR, MD [address] [place] [address], [address], [facility] 13:00:58 Tobacco dependence syndrome 96215441 Active 2023 SEN REICH JR, MD [address] [place] [address], [address], [facility] 13:01:13 Arthritis 2768706 Active 2023 Mousie Stephanie [facility] 13:17:13 Hyperlipide alfonso 35923532 Active 2023 Mousie Stephanie [facility] 13:17:27 Type 2 diabetes mellitus 71551826 [facility] 13:20:26 Nodule of lung 561541820 Active 2023 Mousie Stephanie [facility] 13:22:04 Calcificati on of coronary artery 568885583 Active 2023 [facility] 13:22:35 Vitamin D deficiency 05115342 Active 2023 [facility] 13:22:53 Hypertensiv e disorder 28219558 Active 2023 Mousie Stephanie [facility] 13:23:11 Notes:thyroid nodule Problem Notes None recorded. Procedures Surgical History Date Name Laterality Status Provider Name and Address Organization Details Recorded Time Cholecystectomy completed [facility] 06/09/2024 13:16:44 Imaging Results Imaging Date Name Status LastModified by Organiz ation Details LastModified Time 06/13/2024 , carotid artery completed [email or web address] [facility] [address], [place], [address], 06/21/2024 11:05:07 Procedure Notes None recorded. Medical Equipment None Reported. Allergies Allergen ID Allergen Name Allergen Category Reaction Reaction Severity Criticality Documentation Date Start Date Code Code System Note Provider Name and Address Organization Details Recorded Time 656397 Altocor medicatio n Not available Not available Not available 06/09/2024 25091 0 RxNorm [facility] 4 11:57:40 970835 Medicinal product containin g penicilli n and acting as antibacte rial agent (product) medicatio n Not available Not available Not available 06/09/2024 76407 05 SNOMED [facility] 11:57:51 773717 Lescol medicatio n Not available Not available Not available 06/09/2024 41461 2 RxNorm [facility] 11:58:33 227627 Cipro medicatio n Not available Not available Not available 06/09/202492660 3 RxNorm [facility] 11:58:41 018039 Levaquin medicatio n Not available Not available Not available 06/09/2024 54381 2 RxNorm [facility] 11:58:52 441326 Medicinal product containin g nitrofura n derivativ e and acting as antibacte rial agent (product) medicatio n Not available Not available Not available 06/09/2024 56842 2000 SNOMED Cecille Brown [facility] 12:28:38 956421 nitrofura ntoin medicatio n Not available Not available Not available 06/09/2024 7454 RxNorm [facility] 12:00:55 002132 Macrobid medicatio n Not available Not available Not available 06/09/2024 69906 1 RxNorm [facility] 4 12:01:01 453986 Avelox medicatio n Not available Not available Not available 06/09/2024 69038 6 RxNorm [facility] 4 12:01:10 665033 Ceclor medicatio n Not available Not available Not available 06/09/202467084 5 RxNorm Cecille Stephanie null, [facility] 4 12:01:20 745671 clarithro mycin medicatio n Not available Not available Not available 06/09/2024 93652 RxNorm Cecille Stephanie null, [facility] 4 12:02:53 349959 Marcaine medicatio n Not available Not available Not available 06/09/2024 15465 97 RxNorm Cecille Stephanie null, [facility] 4 12:03:30 540032 Kenalog medicatio n Not available Not available Not available 06/09/2024 7 RxNorm Cecille Stephanie null, [facility] 4 12:03:41 180306 Biaxin medicatio n Not available Not available Not available 06/09/202432482 9 RxNorm Cecille Stephanie null, [facility] 4 12:04:25 685062 Invokana medicatio n Not available Not available Not available 06/09/2024 32672 64 RxNorm Cecille Stephanie null, [facility] 4 12:06:11 824243 Keflex medicatio n Not available Not available Not available 06/09/202474404 7 RxNorm Cecille Stephanie null, [facility] 4 12:06:44 085826 hydrochlo rothiazid e medicatio n Not available Not available Not available 06/09/2024 5487 RxNorm Cecille Stephanie null, [facility] 4 12:07:37 143413 dexametha sone medicatio n Not available Not available Not available 06/09/2024 3264 RxNorm Cecille Stephanie null, [facility] 4 12:08:02 126825 erythromy sumaya medicatio n Not available Not available Not available 06/09/2024 4053 RxNorm Cecille Stephanie null, [facility] 4 12:08:29 909457 brompheni ramine Not available Not available Not available Not available 06/09/2024 1767 RxNorm Cecille Stephanie null, [facility] 12:29:50 Medications Name Sig Start Date Stop [...] cm 68 /min 128 mm[Hg] 69 mm[Hg] Cecille Brown [facility] 06/09/2024 12:16:41 Social History None recorded. Functional Status None recorded. Mental Status None recorded. Family History Nothing Reported. Medical History Condition Response Diabetes Y Coronary Artery Disease N Thyroid Disease N Congestive Heart Failure (CHF) N Gallbladder Disease Y Diverticulitis N Stroke N COPD Y Asthma N Crohn's Disease N Colon Polyps N Liver Disease N Kidney Disease N Gynecological HistoryNo gynecological history recorded. Obstetrics History GPAL:G 0 P 0 0 0 0 Past Encounters Encounter ID Performer Location Encounter Start Date Encounter Closed Date Diagnosis/Indication Diagnosis SNOMED-CT Code Diagnosis ICD10 Code [id number] SEN REICH JR, MD [facility] [address] [place] [address] 06/09/2024 11:28:36 06/10/2024 10:23:50 Left carotid artery stenosis 8337915706 98950 I65.22 Neoplasm o f parotid gland 000509638 D49.0 Tobacco de pendence syndrome 40056111 F17.200 Health Concerns Section Related Observation LastModified by Organization Detai ls LastModified Time None Recorded Concern Status LastModified by Organization Details LastModified Time None Recorded Advance Directives Directive None Recorded Payers Encounter Date Sequence Insurance Name Policy Number Policy Richards Covered Member ID Richards Member ID Guarantor Name 06/09/2024 1 [employer] (MEDICARE REPLACEMENT HMO) [id number] Patricia Hills [id number] Patricia Hills 06/09/2024 2 MEDICAID-[facility] - FFS/TRADITIONA L Patricia Hills [id number] Patricia Hills Notes Date Note Type Note [...] some memory loss SEN REICH JR, MD [address] [place] [address], [phone], [facility] 06/21/2024 08:37:58 OBGyn Episode No OBEpisode recorded.
--- OUTSIDE RECORDS SUMMARY | 2024-07-29 07:36 | XMS_ITS | Encounter Summary ---
Author Organization [facility] [place] [address] Care Team Providers Care Helicopter Utility Aircrewman Name Role Phone Unavailable Primary Care Provider Unavailabl e Encounter Details Date Type Department Care Team (Latest Contact Info) Description 01/07/2011 2:28 PM EDT - 01/07/2011 11:59 PM EDT Hospital Encounter [facility] XRAY [id number] [place], [place] [phone] Provider, Not In Epic Pain in limb Discharge Disposition: Home or Self Care Social History Tobacco Use Types Packs/Day Years Used Date Smoking Tobacco: Never Assessed Comments Unknown Sex and Gender Information Value Date Recorded Sex Assigned at Not on file Legal Sex Female 4:52 AM EDT Gender Identity Not on file Sexual Orientation Not on file documented as of this encounter Discharge Disposition Disposition Code Departure Means Destination Home or Self Care documented in this encounter Progress Notes * Unknown, Unknown - 01/07/2011 3:06 PM EDT * Unknown, Unknown - 01/07/2011 3:06 PM EDT documented in this encounter Procedure Notes * Holland Keyboard Operator - 01/07/2011 2:25 PM EDT documented in this encounter Plan of Treatment Not on file documented as of this encounter Procedures Procedure Name Priority Date/Time Associated Diagnosis Comments XR FOOT RIGHT AP LATERAL AND OBLIQUE Routine 01/07/2011 2:49 PM EDT Pain in limb documented in this encounter Results * XR FOOT RIGHT AP LATERAL AND OBLIQUE (01/07/2011 2:49 PM EDT) Anatomical Region Laterality Modality Foot Radiographic Liset ging 01/07/2011 Impressions 01/07/2011 4:31 PM EDT IMPRESSION: No fractures. No dislocations. Narrative 01/07/2011 4:31 PM EDT RIGHT FOOT (THREE VIEWS): 01/07/2011 HISTORY: Pain. Procedure Note Javed Ham - 01/07/2011 RIGHT FOOT (THREE VIEWS): 01/07/2011 HISTORY: Pain. IMPRESSION: No fractures. No dislocations. us Not In [facility] Provider IMG DIAGNOSTIC IMAGING ALBERTO MIMS Final Result documented in this encounter Visit Diagnoses Diagnosis Pain in limb documented in this encounter
--- OUTSIDE RECORDS SUMMARY | 2024-07-29 07:36 | XMS_ITS | Encounter Summary ---
Author Organization [place] [address] Care Team Providers Care Inverted Block Operator Name Role Phone Unavailable Primary Care Provider Unavailabl e Encounter Details Date Type Department Care Team (Latest Contact Info) Description 01/29/2017 10:15 AM EDT - 01/29/2017 11:59 PM EDT Hospital Encounter GRT XRAY [address] [place], [place] [phone] Acute back pain with sciatica, right Discharge Disposition: Home or Self Care Social [...] or Self Care documented in this encounter Plan of Treatment Not on file documented as of this encounter Procedures Procedure Name Priority Date/Time Associated Diagnosis Comments XR LUMBAR SPINE AP AND LATERAL Routine 01/29/2017 10:32 AM EDT Acute back pain with sciatica, right documented in this encounter Results * XR LUMBAR SPINE AP AND LATERAL (01/29/2017 10:32 AM EDT) Anatomical Region Laterality Modality L-spine Radiographic Liset ging 01/29/2017 10:3 2 AM EDT Impressions 01/29/2017 3:52 PM EDT Degenerative change, relatively mild for patient's age. No acute bony abnormality identified. Narrative 01/29/2017 3:52 PM EDT XR LUMBAR SPINE AP AND LATERAL ?? 01/29/2017 10:32 AM HISTORY: ??M54.41-Lumbago with sciatica, right [id number] ?? COMPARE: None. Degenerative change, with small spurs throughout the lumbar spine. Mild to moderate disc space narrowing, T12-L1 and L1-L2, with mild to moderate narrowing at L2-L3, and mild narrowing at L5-S1. No fracture, pars defect, or bony destructive lesion. Procedure Note Hong Weaver MD - 01/29/2017 XR LUMBAR SPINE AP AND LATERAL 01/29/2017 10:32 AM HISTORY: M54.41-Lumbago with sciatica, right [id number]-[id number] COMPARE: None. Degenerative change, with small spurs throughout the lumbar spine. Mildto moderate disc space narrowing, T12-L1 and L1-L2, with mild to moderatenarrowing at L2-L3, and mild narrowing at L5-S1. No fracture, pars defect, or bony destructive lesion. IMPRESSION: Degenerative change, relatively mild for patient's age. No acute bony abnormality identified. [facility] Stephan Gonzalez [facility] ORDER[facility] Final Result documented in this encounter Visit Diagnoses Diagnosis Acute back pain with sciatica, right documented in this encounter
--- OUTSIDE RECORDS SUMMARY | 2024-07-29 07:36 | XMS_ITS | Clinical Summary ---
Author Organization [facility] Address [address] [place] [address] Phone Care Team Providers Care Graduate Internship Name Role Phone Unavailable Primary Care Provider Unavailabl e Surgical History Surgery Date Site/Laterality Comments CATARACT EXTRACTION EXTRACAP SULAR W/ INTRAOCULAR LENS IMPLANTATION 11/20/[address] Carline Sargent CATARACT EXTRACTION EXTRACAP SULAR W/ INTRAOCULAR LENS IMPLANTATION 12/03/[address] Carline Sargent Social History Tobacco Use Types Packs/Day Years Used Date Smoking Tobacco: Never Assessed Comments Unknown Sex and Gender Information Value Date Recorded Sex Assigned at Not on file Legal Sex Female 4:52 AM EDT Gender Identity Not on file Sexual Orientation Not on file Obstetrics History Plan of Treatment Health Maintenance Due Date Last Done Comments Wellness Exam Medicare 1942 DTaP/TDaP/Td (1 - Tdap) 11/22/1959 Zoster (1 of 2) 1990 Bone Density Screening 2005 Pneumococcal Vaccine 65+ (1 of 1 - PCV) 2005 RSV or 60+ (1 - 1-d ose 75+ series) 11/22/2015 COVID-19 Vaccine ( - 2023-2 5 season) 2024 Influenza Vaccine (#1) 2024 Hepatitis B Vaccine Aged Out No longe r eligible based on patient's age to complete this topic Insurance [place] [address] [place] [address] [place]
--- OUTSIDE RECORDS SUMMARY | 2024-07-29 07:36 | XMS_ITS | Clinical Summary ---
Author Organization [facility] Address [address] [place] [address] Care Team Providers Care Employee Benefits Administrator Name Role Phone Unavailable Primary Care Provider Unavailabl e Encounters Date Type Department Care Team Description 05/17/2024 Community Orders Community [facility] [address] [place] [address] Prasad León MD Stenosis of carotid artery, unspecified laterality (Primary Dx) 05/12/2024 Orders Only External Location [address] [place] [address] Charlotte Jung DO 05/12/2024 Orders Only External Location [address] [place] [address] Charlotte Jung DO from Last 3 Months Social History Tobacco Use Types Packs/Day Years Used Date Smoking Tobacco: Never Assessed Comments Unknown Sex and Gender Information Value Date Recorded Sex Assigned at Not on file Legal Sex Female 12:54 PM EDT Gender Identity Not on file Sexual Orientation Not on file Plan of Treatment Not on file Procedures Procedure Name Priority Date/Time Associated Diagnosis Comments CT OUTSIDE IMAGES 05/12/2024 1:[address] OUTSIDE IMAGES 05/12/2024 1:45 PM EDT from Last 3 Months Results * CT OUTSIDE IMAGES (05/12/2024 1:45 PM EDT) Only the most recent of2 resultswithin the time period is included. Anatomical Region Laterality Modality Computed Tomogra phy 05/12/2024 1:45 PM EDT Charlotte Jung DO IMG CT PROCEDURES Final Result from Last 3 Months
--- OUTSIDE RECORDS SUMMARY | 2024-07-29 07:36 | XMS_ITS | Referral Summary ---
Author Organization [facility] Address [address] [place] [address] Phone Care Team Providers Care Line Palletizer Name Role Phone Unavailable Primary Care Provider Unavailabl e Social History Tobacco Use Types Packs/Day Years Used Date Smoking Tobacco: Never Assessed Comments Unknown Sex and Gender Information Value Date Recorded Sex Assigned at Not on file Legal Sex Female 4:52 AM EDT Gender Identity Not on file Sexual Orientation Not on file Plan of Treatment Not on file Insurance [place]ARE [place] PART A [place]
--- OUTSIDE RECORDS SUMMARY | 2024-07-29 07:36 | XMS_ITS | Encounter Summary ---
Author Organization [facility] [place] [address] Care Team Providers Care Corporate Director Talent Assessment Name Role Phone Unavailable Primary Care Provider Unavailabl e Encounter Details Date Type Department Care Team (Latest Contact Info) Description 12/03/2020 Travel Social History Tobacco Use Types Packs/Day Years Used Date Smoking Tobacco: Never Assessed Comments Unknown Sex and Gender Information Value Date Recorded Sex Assigned at Not on file Legal Sex Female 4:52 AM EDT Gender Identity Not on file Sexual Orientation Not on file COVID-19 Exposure Response Date Recorded In the last month, have you been in contact with someone who was confirmed or suspected to have Coronavirus / COVID-19? No / Unsure 12/03/2020 8:35 AM EDT documented as of this encounter Plan of Treatment Not on file documented as of this encounter Visit Diagnoses Not on filedocumented in this encounter
--- OUTSIDE RECORDS SUMMARY | 2024-07-29 07:36 | XMS_ITS | Encounter Summary ---
Author Organization [facility] [place] [address] Care Team Providers Care Guest Request Runner Name Role Phone Unavailable Primary Care Provider Unavailabl e Encounter Details Date Type Department Care Team (Latest Contact Info) Description 11/20/2020 Travel Social History Tobacco Use Types Packs/Day [...] have Coronavirus / COVID-19? No / Unsure 11/20/2020 7:43 AM EDT documented as of this encounter Plan of Treatment Not on file documented as of this encounter Visit Diagnoses Not on filedocumented in this encounter
--- OUTSIDE RECORDS SUMMARY | 2024-07-29 07:36 | XMS_ITS | Encounter Summary ---
Author Organization [facility] Address [address] [place] [address] Care Team Providers Care Extension Service Specialist In Charge Name Role Phone Unavailable Primary Care Provider Unavailabl e Reason for Referral * Consultation (Urgent) - Authorized Specialty Diagnoses / Procedures Referred By Contact Referred To Contact Vascular Surgery / [facility] Diagnoses Stenosis of carotid artery, unspecified laterality Prasad León MD [facility] [place] [address] Phone: tel:[phone] fax:[phone] [facility] [address] [place] [address] Phone: tel: fax: Referral ID Status Reason Start Date Expiration Date Visits Requested Visits Authorized [id number] Authorized Specialty Services Required 05/17/2024 11/16/2025 1 1 Encounter Details Date Type Department Care Team (Late st Contact Info) Description 05/17/2024 [facility] [address] [place] [address] Prasad León MD [address] [place], [place] [id number] Stenosis of carotid artery, unspecified laterality (Primary Dx) Social History Tobacco Use Types Packs/Day Years Used Date Smoking Tobacco: Never Assessed Comments Unknown Sex and Gender Information Value Date Recorded Sex Assigned at Not on file Legal Sex Female 12:54 PM EDT Gender Identity Not on file Sexual Orientation Not on file documented as of this encounter Plan of Treatment Scheduled Referrals Name Type Priority Associated Diagnoses Orde r Schedule Ambulatory referral to Vascular Surgery Outpatient Referral Routine Stenosis of carotid artery, unspecified laterality Expected: 05/17/2024, Expires: 11/14/2025 documented as of this encounter Visit Diagnoses Diagnosis Stenosis of carotid artery, unspecified laterality- Primary documented in this encounter
--- NOTE | 2024-07-29 08:02 | HMH.PHAINT1 ---
Pharmacy Intervention Comments: MEDICATION RECONCILIATION COMPLETED ON PATIENT USING EXTERNAL FILL HISTORY FROM PHARMACY. -MICHAEL PAULINO, RICKEYD
[2024-07-29] MEDS: INSULIN GLARGINE 100 UNITS/ML 10ML VIAL 15 UNIT SUBCUT (08:34)
[2024-07-29] MEDS: ASPIRIN EC 81MG TABLET 81 MG PO (08:38)
[2024-07-29] MEDS: predniSONE 20MG TAB 40 MG PO (08:38)
[2024-07-29] MEDS: HEPARIN SODIUM 5,000 UNIT/ML VIAL 5000 UNIT SUBCUT ×2 (08:38→21:08)
[2024-07-29] MEDS: CLOPIDOGREL 75MG TAB 75 MG PO (08:39)
[2024-07-29] MEDS: SODIUM BICARBONATE 150 MEQ in DEXTROSE 5 % IN WATER 1,000 ML 100 MEQ IV (08:41)
[2024-07-29 09:35] LABS: Lactic Acid 8.5 mmol/L (0.7-2.1)
[2024-07-29 11:17] LABS: POC Glucose,Bedside 366 (70-110)
[2024-07-29 11:17] LABS: POC Glucose,Bedside 425 (70-110)
--- NOTE | 2024-07-29 13:43 | HMH.OTEV ---
OT Inpatient Evaluation Rehab OT IP Evaluation Start: 07/29/24 09:05 Freq: ONCE Status: Active Protocol: Document 07/29/24 13:39 [email or web address] (Rec: 07/29/24 13:43 ROGERS [id number]) Rehab OT IP Assessment Subjective History Patricia Hills is an 83-year-old female past medical history significant for CAD, type 2 diabetes, HTN, HLD, COPD who presents emergency room tonight with complaints of shortness of breath. Ms. Hills states her shortness of breath started on Thursday. Reported subjective fever with chills and muscle aches on Thursday only. Reports she has been coughing, nonproductive since Thursday. Reports she had difficulty resting tonight, otherwise had planned on going to her primary care physician tomorrow. Denies any known sick contacts. Denies any chest pain, abdominal pain, bowel or bladder dysfunction. No focal neurodeficits noted. Does take Plavix, no other blood thinners. Does not wear oxygen at home. Denies alcohol use, illicit drug use, does smoke cigarettes, about a pack per day. Workup in the ER showed initial troponin of 0.05, flu and COVID were negative. Lactic acid on her VBG was 3.4 . VBG showed a pH of 7.3, pCO2 of 50, pO2 of 50 with a bicarb of 24. WBCs at 9.9 thousand. Patient was noted to be hypoxic when she arrived with SpO2 down in the 80s. Was noted to have wheezes, had DuoNebs, started on azithromycin, and given steroids. Chest x-ray was nonactionable. She will be admitted to the hospitalist service for COPD exacerbation. Patient lives at home with dtr . Patient lives on the main floor and dtr lives in the basement. Patient uses a RW to ambulate within home. Independent with ADLs and fx'l mobility. Dtr assist with transportation and outside appts. Subjective I can get up. Assisted Patient with transfers, fx'l mobility and ADLs during initial evaluation . Patient completed all tasks with CGA/SBA for safety. No LOB. Patient maneuver ~50ft with SBA. Left Patient sitting upright in recliner with needs met at end of session. Objective Patient Orientation Person,Name,Age Right Upper Extremity Gross ROM WFL Left Upper Extremity Gross ROM WFL Transfer Training Sit/Stand Transfer,Sit/Stand/ Step Transfer,Sit/Stand/Pivot Transfer Assist Level Independent Chair Transfer Ability Independent Chair Transfer Technique Sit to/from Ambulatory Chair Transfer Assistive Devices Rolling Walker Lower Body Dressing Ability Independent Upper Body Dressing Ability Independent Rehab OT IP prob,goals,plan Problems Date of Evaluation: 07/29/24 Rehab Potential Rehab Potential Innapropriate for Skilled Therapy Equipment Needs Assistive Devices Rolling / Wheeled Walker Discharge Plan OT Discharge Plan Recommend patient to return home after medical d/c. Patient appears to be at baseline. Eval Complexity Eval Charge Codes 13032 - Low Complexity PHYSICIAN CERTIFICATION: I certify the specified therapy services for Patricia Hills are required, authorized, and reviewed every 30 days.
[2024-07-29 14:09] LABS: Lactic Acid 5.6 mmol/L (0.7-2.1)
--- NOTE | 2024-07-29 15:09 | PC.NURSE ---
o2 2l via nc placed back on pt due to o2 sat 88% at rest with complaints of soa
[2024-07-29 16:57] LABS: POC Glucose,Bedside 310 (70-110)
[2024-07-29 17:52] LABS: Reflex Lactic Add Lactic Reflex
[2024-07-29 18:20] LABS: Lactic Acid Follow Up (RFLX 1) 3.6 mmol/L (0.7-2.1)
[2024-07-29] MEDS: SODIUM CHLORIDE 3% 15ML NEB 3 ML IH (18:32)
[2024-07-29] MEDS: IPRATROPIUM/ALBUTEROL 3 ML NEB IH (18:32)
--- NOTE | 2024-07-29 18:45 | PC.NURSE ---
PT IS INTERMITTENTLY CONFUSED AND PER DAUGHTER THAT IS HER BASELINE, ALERT AND ORIENTEDX4 ANSWERING ALL QUESTIONS CORRECTLY BUT HAS TO THINK ABOUT THE TIME AND SITUATION. REMAINS ON 2L NC. PT STATES SHE DID NOT GET MUCH SLEEP LAST NIGHT. AROUND 1700 PT ACCIDENTLY PULLED OUT IV BECAUSE SHE STATED SHE FORGOT , AND ALSO KEPT PULLING AT HEART MONITOR, NOTIFIED MING AND HE GAVE vo TO DC TELE. ASSISTED PT BACK TO BED, BED ALARM ON FOR PT SAFETY. CALL DOLL WITHIN REACH. NO NEEDS AT THIS TIME.
[2024-07-29 20:08] LABS: Reflex Lactic (2 hrs) Add Lactic Reflex
[2024-07-29] MEDS: AZITHROMYCIN 250MG TABLET 500 MG PO (21:08)
[2024-07-29 21:09] LABS: POC Glucose,Bedside 203 (70-110)
[2024-07-30] VITALS (10 sets, daily range): BP systolic 164–198; BP diastolic 75–100; PULSE 92–118; RESP 14–20; TEMP 36.6–37; O2SAT 87–96; BMI 28.0
[2024-07-30] MEDS: MELATONIN 5MG TABLET 5 MG PO (00:15)
--- NOTE | 2024-07-30 02:34 | P.DS_ITS ---
General Admission date:: 07/29/24 HPI HPI HPI: Patricia Hills is an 83-year-old female past medical history significant for CAD, type 2 diabetes, HTN, HLD, COPD who presents emergency room tonight with complaints of shortness of breath. Ms. Hills states her shortness of breath started on Thursday. Reported subjective fever with chills and muscle aches on Thursday only. Reports she has been coughing, nonproductive since Thursday. Reports she had difficulty resting tonight, otherwise had planned on going to her primary care physician tomorrow. Denies any known sick contacts. Denies any chest pain, abdominal pain, bowel or bladder dysfunction. No focal neurodeficits noted. Does take Plavix, no other blood thinners. Does not wear oxygen at home. Denies alcohol use, illicit drug use, does smoke cigarettes, about a pack per day. Workup in the ER showed initial troponin of 0.05, flu and COVID were negative. Lactic acid on her VBG was 3.4. VBG showed a pH of 7.3, pCO2 of 50, pO2 of 50 with a bicarb of 24. WBCs at 9.9 thousand. Patient was noted to be hypoxic when she arrived with SpO2 down in the 80s. Was noted to have wheezes, had DuoNebs, started on azithromycin, and given steroids. Chest x-ray was nonactionable. She will be admitted to the hospitalist service for COPD exacerbation. Exam Data for Last 24 hours Vital signs and Labs for Last 24 Hours: Temp Pulse Resp BP Pulse Ox O2 Del Method O2 Flow Rate 98.0 F 103 H 18 164/85 H 96 Nasal Cannula 2 07/30/24 00:00 07/30/24 00:00 07/30/24 00:00 07/30/24 00:00 07/30/24 00:00 07/30/24 01:00 07/30/24 01:00 Laboratory Results - last 24 hr 07/29/24 00:00: Urine Color Yellow, Urine Appearance Clear, Urine pH 6.0, Ur Specific [place] >= 1.030, Urine Glucose (UA) Trace, Urine Ketones Negative, Urine Bilirubin Negative, Urine Urobilinogen 0.2, Urine RBC Occasional, Urine WBC 3-5, Ur Squamous Epith Cells 3-5, Urine Bacteria 2+ 07/29/24 04:20: WBC 8.1, RBC 4.99, Hgb 15.2, Hct 47.9 H, MCV 95.9, MCH 30.5, MCHC 31.8, RDW 13.5, Plt Count 243, MPV 7.6, Neut % (Auto) 89.5 H, Lymph % (Auto) 8.4 L, [place] % (Auto) 1.8, Eos % (Auto) 0.0 L, Baso % (Auto) 0.4, Neut # (Auto) 7.2, Lymph # (Auto) 0.7, [place] # (Auto) 0.1, Eos # (Auto) 0.0, Baso # (Auto) 0.0, Total Counted 100, Neutrophils % (Manual) 94 H, Lymphocytes % (Manual) 6 L, Platelet Estimate Normal, RBC Morphology Normal, Sodium 142, Potassium 3.3 L D, Chloride 104, Carbon Dioxide 18 L, Anion Gap 23.3 H, BUN 18 H , Creatinine 0.90 D, Estimated Creat Clear 46, Estimated GFR 60, Est GFR ( Amer) 72 D, Glucose 405 H* D, Lactate 9.3 H, Calcium 9.2, Troponin I 0.02 07/29/24 05:00: Lactate 9.4 H 07/29/24 06:38: POC Glucose 425 H* 07/29/24 09:09: Lactate 8.5 H 07/29/24 10:43: POC Glucose 366 H* 07/29/24 13:35: Lactate 5.6 H 07/29/24 16:44: POC Glucose 310 H* 07/29/24 18:00: Lactate 3.6 H 07/29/24 20:45: Lactate 2.0 07/29/24 21:02: POC Glucose 203 H I & O for Last 24 hours: Intake & Output 07/27/24 07/28/24 07/29/24 07/30/24 23:59 23:59 23:59 23:59 Intake Total 1700 / 1880 180 / 180 Output Total 0 / 0 Balance 1700 / 1880 180 / 180 Weight 63.503 kg 67.857 kg Results Data Completed and Pending Labs on day of discharge: Labs from last 24 hours 07/29/24 07/29/24 07/29/24 21:02 20:45 18:00 WBC RBC Hgb Hct MCV MCH MCHC RDW Plt Count MPV Neut % (Auto) Lymph % (Auto) [place] % (Auto) Eos % (Auto) Baso % (Auto) Neut # (Auto) Lymph # (Auto) [place] # (Auto) Eos # (Auto) Baso # (Auto) Total Counted Neutrophils % (Manual) Lymphocytes % (Manual) Platelet Estimate RBC Morphology Sodium Potassium Chloride Carbon Dioxide Anion Gap BUN Creatinine Estimated Creat Clear Estimated GFR Est GFR ( Amer) Glucose POC Glucose 203 H Lactate 2.0 3.6 H Calcium Troponin I Urine Color Urine Appearance Urine pH Ur Specific [place] Urine Glucose (UA) Urine Ketones Urine Bilirubin Urine Urobilinogen Urine RBC Urine WBC Ur Squamous Epith Cells Urine Bacteria 07/29/24 07/29/24 07/29/24 16:44 13:35 10:43 WBC RBC Hgb Hct MCV MCH MCHC RDW Plt Count MPV Neut % (Auto) Lymph % (Auto) [place] % (Auto) Eos % (Auto) Baso % (Auto) Neut # (Auto) Lymph # (Auto) [place] # (Auto) Eos # (Auto) Baso # (Auto) Total Counted Neutrophils % (Manual) Lymphocytes % (Manual) Platelet Estimate RBC Morphology Sodium Potassium Chloride Carbon Dioxide Anion Gap BUN Creatinine Estimated Creat Clear Estimated GFR Est GFR ( Amer) Glucose POC Glucose 310 H* 366 H* Lactate 5.6 H Calcium Troponin I Urine Color Urine Appearance Urine pH Ur Specific [place] Urine Glucose (UA) Urine Ketones Urine Bilirubin Urine Urobilinogen Urine RBC Urine WBC Ur Squamous Epith Cells Urine Bacteria 07/29/24 07/29/24 07/29/24 09:09 06:38 05:00 WBC RBC Hgb Hct MCV MCH MCHC RDW Plt Count MPV Neut % (Auto) Lymph % (Auto) [place] % (Auto) Eos % (Auto) Baso % (Auto) Neut # (Auto) Lymph # (Auto) [place] # (Auto) Eos # (Auto) Baso # (Auto) Total Counted Neutrophils % (Manual) Lymphocytes % (Manual) Platelet Estimate RBC Morphology Sodium Potassium Chloride Carbon Dioxide Anion Gap BUN Creatinine Estimated Creat Clear Estimated GFR Est GFR ( Amer) Glucose POC Glucose 425 H* Lactate 8.5 H 9.4 H Calcium Troponin I Urine Color Urine Appearance Urine pH Ur Specific [place] Urine Glucose (UA) Urine Ketones Urine Bilirubin Urine Urobilinogen Urine RBC Urine WBC Ur Squamous Epith Cells Urine Bacteria 07/29/24 07/29/24 04:20 00:00 WBC 8.1 RBC 4.99 Hgb 15.2 Hct 47.9 H MCV 95.9 MCH 30.5 MCHC 31.8 RDW 13.5 Plt Count 243 MPV 7.6 Neut % (Auto) 89.5 H Lymph % (Auto) 8.4 L [place] % (Auto) 1.8 Eos % (Auto) 0.0 L Baso % (Auto) 0.4 Neut # (Auto) 7.2 Lymph # (Auto) 0.7 [place] # (Auto) 0.1 Eos # (Auto) 0.0 Baso # (Auto) 0.0 Total Counted 100 Neutrophils % (Manual) 94 H Lymphocytes % (Manual) 6 L Platelet Estimate Normal RBC Morphology Normal Sodium 142 Potassium 3.3 L D Chloride 104 Carbon Dioxide 18 L Anion Gap 23.3 H BUN 18 H Creatinine 0.90 D Estimated Creat Clear 46 Estimated GFR 60 Est GFR ( Amer) 72 D Glucose 405 H* D POC Glucose Lactate 9.3 H Calcium 9.2 Troponin I 0.02 Urine Color Yellow Urine Appearance Clear Urine pH 6.0 Ur Specific [place] >= 1.030 Urine Glucose (UA) Trace Urine Ketones Negative Urine Bilirubin Negative Urine Urobilinogen 0.2 Urine RBC Occasional Urine WBC 3-5 Ur Squamous Epith Cells 3-5 Urine Bacteria 2+ DS: Diagnosis Discharge Diagnosis (1) Acute hypoxic respiratory failure: Status: Acute Code(s): J96.01 - Acute respiratory failure with hypoxia (2) Non-ST elevation MA (NSTEMI): Status: Acute Code(s): I21.4 - Non-ST elevation (NSTEMI) myocardial infarction (3) Pneumonia: Status: Acute Code(s): J18.9 - Pneumonia, unspecified organism (4) Type 2 diabetes mellitus without complications: Status: Acute Code(s): E11.9 - Type 2 diabetes mellitus without complications (5) Hyperlipidemia: Status: Acute Code(s): E78.5 - Hyperlipidemia, unspecified (6) HTN (hypertension): Status: Acute Code(s): I10 - Essential (primary) hypertension Meds Home Medications and Allergies Home Medications ?Medication ?Instructions ?Recorded ?Confirmed ?Type cholecalciferol (vitamin D3) 25 25 mcg PO DAILY 04/09/22 07/29/24 History mcg (1,000 unit) capsule blood sugar diagnostic (Contour #50 strips 11/26/22 07/29/24 Rx Test Strips) aspirin 81 mg tablet,delayed 81 mg PO DAILY #100 tabs 07/06/24 07/29/24 Rx release clopidogrel 75 mg tablet (Plavix) 75 mg PO DAILY #90 tabs 07/06/24 07/29/24 Rx amlodipine 10 mg-valsartan 320 mg 1 tab PO DAILY 07/29/24 07/29/24 History tablet clopidogrel 75 mg tablet 75 mg PO DAILY 07/29/24 07/29/24 History glyburide 5 mg tablet 20 mg PO DAILY 07/29/24 07/29/24 History metformin 500 mg tablet,extended 1,000 mg PO BID 07/29/24 07/29/24 History release 24 hr metoprolol tartrate 100 mg tablet 100 mg PO BID 07/29/24 07/29/24 History omeprazole 40 mg capsule,delayed 40 mg PO DAILY 07/29/24 07/29/24 History release rosuvastatin 5 mg tablet 5 mg PO HS 07/29/24 07/29/24 History trimethoprim 100 mg tablet 100 mg PO DAILY 07/29/24 07/29/24 History New Prescriptions to Start Prescriptions: Allergies Allergy/AdvReac Type Severity Reaction Status Date / Time Penicillins Allergy Severe swelling Verified 07/06/24 13:38 doxycycline Allergy Mild Verified 07/06/24 13:38 brompheniramine AdvReac Verified 07/06/24 13:38 bupivacaine (From Marcaine) AdvReac Verified 07/06/24 13:38 cephalexin (From Keflex) AdvReac Verified 07/06/24 13:38 clarithromycin AdvReac Verified 07/06/24 13:38 fluvastatin (From Lescol) AdvReac Verified 07/06/24 13:38 hydrochlorothiazide AdvReac Verified 07/06/24 13:38 lovastatin (From Altocor) AdvReac Verified 07/06/24 13:38 moxifloxacin (From Avelox) AdvReac Verified 07/06/24 13:38 nitrofurantoin (From AdvReac Verified 07/06/24 13:38 Macrobid) triamcinolone (From Kenalog) AdvReac Verified 07/06/24 13:38 Discharge Plan Follow up Plan Prescriptions/Medication Reconciliation: No Action clopidogrel [Plavix] 75 mg tablet 75 mg PO DAILY Qty: 90 3RF aspirin 81 mg tablet,delayed release (DR/EC) 81 mg PO DAILY Qty: 100 10RF cholecalciferol (vitamin D3) 25 mcg (1,000 unit) capsule 25 mcg PO DAILY (DME) Contour Test Strips Strip See Rx Instructions .ROUTE .COMPLEX Qty: 50 2RF Dose Instruction: Use to check blood sugar as directed. Rx Instructions: Use to check blood sugar as directed. glyburide 5 mg tablet 20 mg PO DAILY Patient Comments: TAKE 4 TABLETS BY MOUTH ONCE DAILY. metoprolol tartrate 100 mg tablet 100 mg PO BID Patient Comments: TAKE 1 TABLET BY MOUTH TWICE DAILY. clopidogrel 75 mg tablet 75 mg PO DAILY Patient Comments: TAKE 1 TABLET BY MOUTH ONCE DAILY trimethoprim 100 mg tablet 100 mg PO DAILY Patient Comments: TAKE 1 TABLET BY MOUTH ONCE DAILY. omeprazole 40 mg capsule,delayed release(DR/EC) 40 mg PO DAILY Patient Comments: TAKE 1 CAPSULE BY MOUTH ONCE DAILY. metformin 500 mg tablet extended release 24 hr 1,000 mg PO BID Patient Comments: TAKE 2 TABLETS BY MOUTH ONCE DAILY. amlodipine-valsartan 10-320 mg tablet 1 tab PO DAILY Patient Comments: TAKE 1 TABLET BY MOUTH ONCE DAILY. rosuvastatin 5 mg tablet 5 mg PO HS Patient Discharge Instructions Patient Instructions: DI for Pneumonia -- Adult Print Language: Setswana Providers Primary Care Provider: Aracely Thomas Provider: Adolfo Gonzales Attending Provider: Adolfo Gonzales
[2024-07-30 03:36] LABS: HCV Ab Non Reactive (Non Reactive)
--- NOTE | 2024-07-30 04:33 | PC.NURSE ---
Patient is alert and oriented, however, appears to have intermittent periods of confusion. During the beginning of the shift, the patient was very fatigued and very soft-spoken; the further the night went on, the patient appeared to be more aware of her surroundings, and her speech was more coherent. Patient was observed to have eyes closed, respirations even and unlabored on 2 L of oxygen via nasal cannula, and no apparent distress throughout the majority of the night. Patient has complained of feeling short of breath sporadically during the night of which she has requested to sit on the side of the bed or upright for noticed improvement. Patient's oxygen line was also humidified with sterile water per patient's report of dry, mucous membranes. Patient has been having an intermittent, loose cough this shift. Upon auscultation of her lungs, expiratory wheezing and scattered rhonchi could be heard. Bowel sounds were active. Blood pressures and heart rates were slightly elevated this shift; other vital signs have been stable. Patient has been ambulating to the bathroom with x1 assistance for multiple voids this shift; she tolerates ambulation well but with an unsteady gait. Patient was given her scheduled medications per OCT. At this time, the patient is sitting upright in bed eating a bag of baked Lay's chips. No acute changes noted thus far. Bed alarm on. Call light within reach.
[2024-07-30 05:55] LABS: POC Glucose,Bedside 201 (70-110)
[2024-07-30] MEDS: IPRATROPIUM/ALBUTEROL 3 ML NEB IH ×2 (06:14→18:12)
[2024-07-30 06:15] LABS: Anion Gap 7.9 mEq/L (5-15); Blood Urea Nitrogen 16 mg/dl (7-17); Calcium 9.2 mg/dl (8.4-10.2); Carbon Dioxide 34 mmol/L (22.0-30.0); Chloride 102 mmol/L (98-107); Creatinine Clearance Estimated 46 mL/min (50-200); Estimated Glomerular Filt Rate 95 ml/min (>60); GFR (African American) 116 ML/MIN (>60); Glucose 216 mg/dl (74-100); Lactic Acid 1.3 mmol/L (0.7-2.1); Potassium 3.9 mmoL/L (3.5-5.1); Sodium 140 mmol/L (136-145)
[2024-07-30] MEDS: humaLOG 100 UNITS/ML 10ML VIAL (SSI) SUBCUT ×4 (06:25→20:27)
[2024-07-30 07:24] LABS: Basophils # 0.1 K/mm3 (0-0.2); Basophils % 0.6 % (0.1-2.0); Eosinophils % 0.1 % (0.1-12.0); Hematocrit 41.8 % (37.0-47.0); Hemoglobin 14.2 g/dL (12.2-16.2); Lymphocytes # 1.2 K/mm3 (0.7-4.5); Lymphocytes % 7.1 % (10-50); Mean Corpuscular Hemoglobin 30.5 pg (27.0-31.2); Mean Corpuscular Volume 89.7 fl (81-99); Mean Platelet Volume 7.7 fl (7.4-10.4); Monocytes # 1.3 K/mm3 (0.1-1.0); Monocytes % 7.4 % (1.7-9.3); Neutrophils # 14.4 K/mm3 (1.8-7.8); Neutrophils % 84.7 % (37.0-80.0); Platelet Count 227 K/mm3 (142-424); Red Blood Count 4.65 M/mm3 (4.20-5.40); Red Cell Distribution Width 13.8 % (11.5-17.5)
--- NOTE | 2024-07-30 07:32 | EXP.ACUTE.PN ---
Subjective *Date: 07/30/24 *Time: 16:34 Interval history: Still feeling quite fatigued, room air sat of 87% this morning. Continues to require supplemental oxygen. No fever. No nausea or vomiting. Up to chair on bedside rounds. Medical Exam Vital signs and Labs for Last 24 Hours: Vital Signs Temp Pulse Pulse Resp BP Pulse Ox O2 Del Method 07/30/24 07:00 Nasal Cannula 07/30/24 06:15 105 H 07/30/24 06:15 102 H 07/30/24 06:15 94 L Nasal Cannula 07/30/24 05:00 Nasal Cannula 07/30/24 04:00 98.1 F 92 H 16 171/89 H 96 Nasal Cannula 07/30/24 03:00 Nasal Cannula 07/30/24 01:00 Nasal Cannula 07/30/24 00:00 98.0 F 103 H 18 164/85 H 96 Nasal Cannula 07/29/24 23:00 Nasal Cannula 07/29/24 21:00 Nasal Cannula 07/29/24 20:00 104 H 96 Nasal Cannula 07/29/24 19:44 98.1 F 104 H 16 154/62 H 96 Nasal Cannula 07/29/24 18:44 Nasal Cannula 07/29/24 18:33 92 H 18 07/29/24 18:33 92 H 07/29/24 18:33 94 H 07/29/24 18:33 96 Nasal Cannula 07/29/24 17:00 Nasal Cannula 07/29/24 16:00 80 07/29/24 16:00 98.1 F 94 H 18 159/96 H 95 Nasal Cannula 07/29/24 15:00 Nasal Cannula 07/29/24 13:00 Room Air 07/29/24 12:00 80 07/29/24 12:00 98.0 F 93 H 18 158/73 H 95 Room Air 07/29/24 11:00 Room Air 07/29/24 09:00 Room Air 07/29/24 08:00 95 H 07/29/24 08:00 Nasal Cannula 07/29/24 08:00 97.6 F 99 H 18 136/48 L 96 Nasal Cannula O2 Flow Rate 07/30/24 07:00 2 07/30/24 06:15 07/30/24 06:15 07/30/24 06:15 3 07/30/24 05:00 2 07/30/24 04:00 2 07/30/24 03:00 2 07/30/24 01:00 2 07/30/24 00:00 2 07/29/24 23:00 2 07/29/24 21:00 2 07/29/24 20:00 2 07/29/24 19:44 2 07/29/24 18:44 2 07/29/24 18:33 07/29/24 18:33 07/29/24 18:33 07/29/24 18:33 2 07/29/24 17:00 2 07/29/24 16:00 07/29/24 16:00 2 07/29/24 15:00 2 07/29/24 13:00 07/29/24 12:00 07/29/24 12:00 07/29/24 11:00 07/29/24 09:00 07/29/24 08:00 07/29/24 08:00 2 07/29/24 08:00 2 Intake and Output 07/29/24 07/29/24 07/30/24 15:59 23:59 07:59 Intake Total 480 / 1880 1220 / 1880 180 / 180 Output Total 0 / 0 0 / 0 Balance 480 / 1880 1220 / 1880 180 / 180 Intake: Intake, Oral Amount 480 / 780 120 / 780 180 / 180 Intake, Total IV Amount 1100 / 1100 Sodium Bicarbonate 150 meq In 1100 / 1100 Dextrose 5 % in Water 1,000 ml @ 100 mls/hr IV .[id number] ONE Rx #:[id number] Output: Output, Urine Amount 0 / 0 0 / 0 Other: Number of Unmeasured Voids 1 Weight 68.991 kg Patient Weight 07/30/24 23:59 Weight 68.991 kg Laboratory Results - last 24 hr 07/28/24 22:26: Hepatitis C Antibody Non reactive 07/29/24 06:38: POC Glucose 425 H* 07/29/24 09:09: Lactate 8.5 H 07/29/24 10:43: POC Glucose 366 H* 07/29/24 13:35: Lactate 5.6 H 07/29/24 16:44: POC Glucose 310 H* 07/29/24 18:00: Lactate 3.6 H 07/29/24 20:45: Lactate 2.0 07/29/24 21:02: POC Glucose 203 H 07/30/24 05:48: POC Glucose 201 H 07/30/24 06:00: Sodium 140, Potassium 3.9, Chloride 102, Carbon Dioxide 34 H, Anion Gap 7.9, BUN 16, Creatinine 0.60 D, Estimated Creat Clear 46, Estimated GFR 95, Est GFR ( Amer) 116 D, Glucose 216 H, Lactate 1.3, Calcium 9.2 I & O for Labs for Last 24 Hours: Intake & Output 07/27/24 07/28/24 07/29/24 07/30/24 23:59 23:59 23:59 23:59 Intake Total 1700 / 1880 180 / 180 Output Total 0 / 0 0 / 0 Balance 1700 / 1880 180 / 180 Weight 63.503 kg 67.857 kg 68.991 kg Microbiology Reports for the Last 24 Hours: Microbiology 07/29/24 00:00 Urine,Clean Catch Urine Culture - Final Multiple organisms, suggests contamination. Constitutional: Present no acute distress, average body habitus, chronically ill appearing and cooperative Head: Present atraumatic and normocephalic ENT: Present normal exam Respiratory: Present prolonged expiratory phase, wheezes and normal respiratory effort; Absent rhonchi or crackles Cardiac: Present Reg Rate and Rhythm GI: Present soft and normal bowel sounds; Absent distention or tenderness Extremities: Present normal inspection and full ROM Skin: Present intact; Absent erythema Neuro: Present Grossly Intact, alert, awake, oriented x 3 and moves all extremities Assessment and Plan *Assessment and plan (1) Acute hypoxic respiratory failure: Status: Acute Category: Medical Code(s): J96.01 - Acute respiratory failure with hypoxia (2) Non-ST elevation PA (NSTEMI): Status: Acute Category: Medical Code(s): I21.4 - Non-ST elevation (NSTEMI) myocardial infarction (3) Pneumonia: Status: Acute Category: Medical Code(s): J18.9 - Pneumonia, unspecified organism (4) Type 2 diabetes mellitus without complications: Status: Acute Category: Medical Code(s): E11.9 - Type 2 diabetes mellitus without complications (5) Hyperlipidemia: Status: Acute Category: Medical Code(s): E78.5 - Hyperlipidemia, unspecified (6) HTN (hypertension): Status: Acute Category: Medical Code(s): I10 - Essential (primary) hypertension Plan Assessment: This is an 83-year-old female being admitted for acute hypoxic respiratory failure likely secondary to viral pneumonia. On my exam, patient is lying in bed in no acute distress. No complaints at this time. Needs to have oxygen requirement, continues to require inpatient management. Problems addressed as follows: Acute hypoxic respite failure COPD exacerbation Viral pneumonia? -Maintain SpO2 greater than 90%, supplemental oxygen as needed please wean oxygen as tolerated, patient does not wear oxygen at baseline; room air saturation of 87% at rest today. Continues to require 2 L -White count elevated today at 17, suspect secondary to steroids versus infection. Continue azithromycin 500 mg daily -Continue prednisone 40 mg daily. Continue DuoNebs every 6 hours scheduled -Concern for cardiac component, BNP ordered for the morning. -Aggressive pulmonary toilet -If patient develops productive sputum consider adding Mucinex NSTEMI -Likely related to patient's hypoxia -Patient has absolutely no chest pain, no EKG changes -Telemetry, Serial troponins to down to 0.02 Type 2 diabetes -SSI for glycemic control in the hospital -Last A1c done in March was 7.2 HTN HLD -Elevated today. Resume amlodipine 10 mg daily, irbesartan 300 mg daily as formulary conversion for valsartan. -Continue metoprolol tartrate 100 mg twice daily DVT prophylaxis: Heparin CODE STATUS: Full code Surrogate decision maker: Kylah [phone] Skin: Low risk Estimate length of stay: Greater than 2 midnights
[2024-07-30 08:16] LABS: MANUAL DIFFERENTIAL MANUAL DIFFERENTIAL (MANUAL DIFF)
[2024-07-30 08:30] LABS: Lymphocytes % 6 % (10-50); Monocytes % 6 % (2-9); Neutrophils % 88 % (42-76); Platelet Estimate Normal; RBC Morphology Normal; Total Cells Counted 100
[2024-07-30] MEDS: CLOPIDOGREL 75MG TAB 75 MG PO (08:56)
[2024-07-30] MEDS: ASPIRIN EC 81MG TABLET 81 MG PO (08:56)
[2024-07-30] MEDS: predniSONE 20MG TAB 40 MG PO (08:57)
--- NOTE | 2024-07-30 09:04 | PC.NURSE ---
Pt's O2 sat is 87% on RA at rest.
[2024-07-30 11:06] LABS: POC Glucose,Bedside 174 (70-110)
--- NOTE | 2024-07-30 14:19 | HMH.PTEV ---
Physical Therapy Evaluation Rehab PT IP Evaluation Start: 07/29/24 09:04 Freq: ONCE Status: Active Protocol: Document 07/30/24 13:18 PDESEROUX (Rec: 07/30/24 13:30 [email or web address] [id number]) Subjective/History History History Pt. is a 83 year old Female who presents to [facility] 2nd Floor Inpatient w/ c/o dyspnea and cough. Pt. reports her daughter called EMS secondary to increased cough and dyspnea at home that I couldn't breathe. Pt. reports symptoms has somewhat improved since she's been in the hospital, however, states she is tired from the increased cough. Pt. reports living on the second floor in a 2-story home w/ her daughter living downstairs. Pt. reports she is IND. w/ dressing, bathing, and preparing meals herself, but is able to call her daughter if she needs any help. Pt. reports she has a FWW that she uses sometimes inside, but mostly outside when she goes to [employer]. Pt. reports she does not drive and that her daughter takes her to the places she needs to go. Pt. reports she needs assistance w / she ambulates w/ the FWW outside secondary to uneven terrain. Pt. reports there are 13 stairs from the first to second floor. PMH includes Thyroid nodule, Visual hallucination, Right-sided headache, Coronary artery calcification seen on CT scan, Pulmonary nodule, Vitamin D deficiency, Type 2 diabetes mellitus, Hyperlipidemia. Subjective Subjective Pt. reports I've been short of breath. New diagnosis of cancer in past 12 No months? Rehab PT IP Eval Objective Appearance Patient Behavior Appropriate,Cooperative, Aggressive Patient Orientation Person,Place,Time,Age Difficulty following instructions none Speech Pattern Clear,Appropriate Ambulation Patient Able to Ambulate Yes Ambulation Observation IP General Gait Pattern Observation Wide Based Gait,Shuffling Step Ambulation Distance (feet) 10 Ambulation Assistive Device Rolling Walker Ambulation Ability Minimal x 1 (25% assist) Balance Ability to Arise Able, uses arms to help Sitting Balance Steady, safe Standing Balance Narrow stance w/o support Dynamic Sitting Balance Ability Good Dynamic Standing Balance Ability Good Transfers Bed Transfer Ability Minimal x 1 (25% assist) Chair Transfer Ability Moderate x 1 (50% assist) Sit to Stand Bed Transfer Ability Moderate x 1 (50% assist) Sit to Stand Chair Transfer Ability Moderate x 1 (50% assist) ROM RLE PT ROM Status WFL LLE PT ROM Status WFL MMT RLE PT MMT WFL LLE PT MMT WFL Rehab PT IP prob,goals,plan Problems Date of Evaluation: 07/30/24 PT IP Problems Transfers,Gait,Balance,Self care,Safety Rehab Potential Rehab Potential Good Equipment Needs Assistive Devices Rolling / Wheeled Walker Plan PT Intervention Plan Transfers,Gait,Balance,Self care,Safety,Therapeutic Exercise PT Plan Frequency BID Duration LOS Discharge Goals Bed Transfer Ability Contact Guard/Hand Hold Sit to Stand Chair Transfer Ability Minimal x 1 (25% assist) Ambulation Assistive Device Rolling Walker Ambulation Distance (feet) 20 Discharge Plan PT Discharge Plan Upon discharge from [facility], once medically stable per MD, pt. is most appropriate to be discharged to a SNF facility secondary to overall decrease in muscle endurance and strength. Pt. would receive further benefit from skilled SNF Physical Therapy to promote and increase current functional muscle strength and endurance to improved current quality of life. Eval Complexity Eval Charge Codes 09569 - Low Complexity PHYSICIAN CERTIFICATION: I certify the specified therapy services for Patricia Hills are required, authorized, and reviewed every 30 days.
--- NOTE | 2024-07-30 16:27 | PC.NURSE ---
Pt is alert and oriented x4. Has c/o discomfort to her lower back this shift. Pt declined and medication. Was repositioned and warming blanket was placed to her back. She has ambulated in room with assist x1. Has been up to the chair this shift. BP elevated. MD notified. Medicated per oct. Call light within reach. Safety measures in place.
--- NOTE | 2024-07-30 16:44 | PC.NURSE ---
Nurse and MD informed of hypertension
[2024-07-30] MEDS: IRBESARTAN 75MG TABLET 75 MG PO (16:49)
[2024-07-30] MEDS: AMLODIPINE 2.5MG TABLET 2.5 MG PO (16:54)
[2024-07-30 17:07] LABS: POC Glucose,Bedside 268 (70-110)
[2024-07-30] MEDS: BUDESONIDE 0.5MG/2ML NEB 0.5 MG IH (18:12)
[2024-07-30] MEDS: HEPARIN SODIUM 5,000 UNIT/ML VIAL 5000 UNIT SUBCUT (20:27)
[2024-07-30] MEDS: PANTOPRAZOLE 40MG TABLET 40 MG PO (20:27)
[2024-07-30] MEDS: AZITHROMYCIN 250MG TABLET 500 MG PO (20:27)
[2024-07-30] MEDS: PATIENT'S OWN HOME MEDICATION (Metoprolol Tartrate 100 mg tablet) 100 EACH PO (20:28)
[2024-07-30 20:37] LABS: POC Glucose,Bedside 188 (70-110)
[2024-07-31] VITALS (7 sets, daily range): BP systolic 130–159; BP diastolic 66–75; PULSE 68–99; RESP 18–20; TEMP 36.7–36.9; O2SAT 87–95
[2024-07-31] MEDS: humaLOG 100 UNITS/ML 10ML VIAL (SSI) SUBCUT ×2 (06:20→11:58)
[2024-07-31 06:28] LABS: POC Glucose,Bedside 215 (70-110)
[2024-07-31] MEDS: IPRATROPIUM/ALBUTEROL 3 ML NEB IH (06:37)
[2024-07-31] MEDS: BUDESONIDE 0.5MG/2ML NEB 0.5 MG IH (06:37)
--- NOTE | 2024-07-31 06:37 | PC.NURSE ---
intermit confusion tonight, sat up in recliner most of night. remains on 2L NC.
[2024-07-31 06:56] LABS: Basophils # 0.1 K/mm3 (0-0.2); Basophils % 1.1 % (0.1-2.0); Eosinophils % 0.2 % (0.1-12.0); Hematocrit 44.2 % (37.0-47.0); Hemoglobin 14.5 g/dL (12.2-16.2); Lymphocytes # 1.4 K/mm3 (0.7-4.5); Lymphocytes % 10.4 % (10-50); Mean Corpuscular HGB Conc 32.8 g/dL (31.8-35.4); Mean Corpuscular Hemoglobin 30.2 pg (27.0-31.2); Mean Corpuscular Volume 92.1 fl (81-99); Mean Platelet Volume 7.5 fl (7.4-10.4); Monocytes # 1.3 K/mm3 (0.1-1.0); Monocytes % 9.7 % (1.7-9.3); Neutrophils # 10.5 K/mm3 (1.8-7.8); Neutrophils % 78.6 % (37.0-80.0); Platelet Count 228 K/mm3 (142-424); Red Cell Distribution Width 13.7 % (11.5-17.5); White Blood Count 13.3 K/mm3 (4.8-10.8)
[2024-07-31 07:00] LABS: Chloride 101 mmol/L (98-107)
[2024-07-31 07:01] LABS: Sodium 139 mmol/L (136-145)
[2024-07-31 07:03] LABS: Alanine Aminotransferase 22 U/L (12-78); Alkaline Phosphatase 72 U/L (38-126); Aspartate Amino Transferase 47 U/L (14-36); Bilirubin,Total 0.6 mg/dl (0.2-1.3); Blood Urea Nitrogen 18 mg/dl (7-17); Carbon Dioxide 37 mmol/L (22.0-30.0); Creatinine Clearance Estimated 46 mL/min (50-200); Estimated Glomerular Filt Rate 69 ml/min (>60); GFR (African American) 83 ML/MIN (>60)
[2024-07-31 07:04] LABS: Albumin/Globulin Ratio 1.3 (1.1-1.8); Calcium 9.1 mg/dl (8.4-10.2); Glucose 187 mg/dl (74-100); Magnesium 2.1 mg/dl (1.6-2.3)
[2024-07-31 07:17] LABS: NT Pro Brain Natriuretic Pep. 1310 pg/mL (0-450)
--- NOTE | 2024-07-31 07:46 | EXP.DC.SUM ---
General Admission date:: 07/29/24 Discharge date: 07/31/24 HPI HPI HPI: Patricia Hills is an 83-year-old female past medical history significant for CAD, type 2 diabetes, HTN, HLD, COPD who presents emergency room tonight with complaints of shortness of breath. Ms. Hills states her shortness of breath started on Thursday. Reported subjective fever with chills and muscle aches on Thursday only. Reports she has been coughing, nonproductive since Thursday. Reports she had difficulty resting tonight, otherwise had planned on going to her primary care physician tomorrow. Denies any known sick contacts. Denies any chest pain, abdominal pain, bowel or bladder dysfunction. No focal neurodeficits noted. Does take Plavix, no other blood thinners. Does not wear oxygen at home. Denies alcohol use, illicit drug use, does smoke cigarettes, about a pack per day. Workup in the ER showed initial troponin of 0.05, flu and COVID were negative. Lactic acid on her VBG was 3.4. VBG showed a pH of 7.3, pCO2 of 50, pO2 of 50 with a bicarb of 24. WBCs at 9.9 thousand. Patient was noted to be hypoxic when she arrived with SpO2 down in the 80s. Was noted to have wheezes, had DuoNebs, started on azithromycin, and given steroids. Chest x-ray was nonactionable. She will be admitted to the hospitalist service for COPD exacerbation. Hospital Course Hospital Course Hospital Course: This is an 83-year-old female being admitted for acute hypoxic respiratory failure likely secondary to viral pneumonia. On my exam, patient is lying in bed in no acute distress. No complaints at this time. Treated with empiric antibiotics and steroids. Overall did well during admission. Still requiring oxygen on day of discharge, will discharge with O2. Given her clinical improvement, stable to discharge home with further management as an outpatient. Problems addressed as follows: Acute hypoxic respite failure COPD exacerbation Viral pneumonia? -Patient admitted with new oxygen requirement and respiratory distress. Significant wheeze on initial presentation and required significant nebulizers. Lactate bumped likely secondary to the nebulizer treatment but showed gradual improvement. Was not frankly septic. Initiated on steroids and azithromycin. Showed gradual improvement. Continued to have oxygen requirement of 2 L however. Patient's oxygen saturation at rest on morning of discharge was 87%. Will complete 5 days of azithromycin and 5 days of prednisone. Continue inhalers at discharge. White count initially 17, improved to 13 by morning of discharge. BNP was elevated at 1300, concern for component of volume overload, was treated with Bumex once during admission. Continue 3 more days of diuretics to help maintain euvolemia. Initiated on Trelegy 100 inhaler, continue at discharge. NSTEMI -Likely related to patient's hypoxia. Patient has absolutely no chest pain, no EKG changes. Serial troponins to down to 0.02. Continue home regimen for CAD and hypertension Type 2 diabetes -SSI for glycemic control in the hospital. Glucose remained stable during admission. Last A1c in March was 7.2. Resume home regimen at discharge. -Last A1c done in March was 7.2 HTN HLD -Held blood pressure meds initially, resumed after condition improved. Continue home regimen of amlodipine, valsartan, metoprolol, Crestor. Total time spent on discharge 38 minutes in counseling, documentation, chart review, and direct care with patient. Exam Data for Last 24 hours Vital signs and Labs for Last 24 Hours: Temp Pulse Resp BP Pulse Ox O2 Del Method O2 Flow Rate 98.3 F 68 18 150/74 H 94 L Nasal Cannula 2 07/31/24 04:00 07/31/24 06:37 07/31/24 04:00 07/31/24 04:00 07/31/24 06:37 07/31/24 06:37 07/31/24 06:37 FiO2 32 07/30/24 19:32 Laboratory Results - last 24 hr 07/30/24 06:00: WBC 17.0 H D, RBC 4.65, Hgb 14.2, Hct 41.8, MCV 89.7, MCH 30.5, MCHC 34.0, RDW 13.8, Plt Count 227, MPV 7.7, Neut % (Auto) 84.7 H, Lymph % (Auto) 7.1 L, [place] % (Auto) 7.4, Eos % (Auto) 0.1, Baso % (Auto) 0.6, Neut # (Auto) 14.4 H, Lymph # (Auto) 1.2, [place] # (Auto) 1.3 H, Eos # (Auto) 0.0, Baso # (Auto) 0.1, Total Counted 100, Neutrophils % (Manual) 88 H, Lymphocytes % (Manual) 6 L, Monocytes % (Manual) 6, Platelet Estimate Normal, RBC Morphology Normal 07/30/24 10:58: POC Glucose 174 H 07/30/24 16:56: POC Glucose 268 H 07/30/24 20:25: POC Glucose 188 H 07/31/24 06:11: WBC 13.3 H, RBC 4.80, Hgb 14.5, Hct 44.2, MCV 92.1, MCH 30.2, MCHC 32.8, RDW 13.7, Plt Count 228, MPV 7.5, Neut % (Auto) 78.6, Lymph % (Auto) 10.4, [place] % (Auto) 9.7 H, Eos % (Auto) 0.2, Baso % (Auto) 1.1, Neut # (Auto) 10.5 H, Lymph # (Auto) 1.4, [place] # (Auto) 1.3 H, Eos # (Auto) 0.0, Baso # (Auto) 0.1, Sodium 139, Potassium 4.0, Chloride 101, Carbon Dioxide 37 H, Anion Gap 5.0, BUN 18 H, Creatinine 0.80 D, Estimated Creat Clear 46, Estimated GFR 69, Est GFR ( Amer) 83 D, Glucose 187 H, Calcium 9.1, Magnesium 2.1, Total Bilirubin 0.6, AST 47 H D, ALT 22, Alkaline Phosphatase 72, NT-Pro-B Natriuret Pep 1310 H, Total Protein 7.0, Albumin 4.0, Globulin 3.0, Albumin/Globulin Ratio 1.3 07/31/24 06:19: POC Glucose 215 H I & O for Last 24 hours: Intake & Output 07/28/24 07/29/24 07/30/24 07/31/24 23:59 23:59 23:59 23:59 Intake Total 1700 / 1880 970 / 1210 240 / 240 Output Total 0 / 0 0 / 0 0 / 0 Balance 1700 / 1880 970 / 1210 240 / 240 Weight 63.503 kg 67.857 kg 68.99 kg Microbiology Reports for the Last 24 Hours: Microbiology 07/29/24 00:00 Urine,Clean Catch Urine Culture - Final Multiple organisms, suggests contamination. Constitutional Constitutional: no acute distress, average body habitus, chronically ill appearing and cooperative *Routine HEENT Exam Head: Present normocephalic Eye: Present EOMI and PERRL ENT: Present mucous membranes moist *Routine Neck Exam Neck: Present supple; Absent lymphadenopathy *Routine Respiratory Exam Respiratory: Present rhonchi; Absent wheezes or crackles *Routine Cardiovascular Exam Cardiovascular: Present RRR *Routine Abdominal Exam Abdominal: Present soft and normoactive bowel sounds; Absent tenderness *Routine Extremities Exam Extremities: Absent cyanosis, clubbing or edema *Routine Skin Exam Skin: Present warm; Absent rash *Routine Neurological Exam Neurological: Present alert, oriented X3 and moving all extremities; Absent altered mental status Results Data Completed and Pending Labs on day of discharge: Labs from last 24 hours 07/31/24 07/31/24 07/30/24 06:19 06:11 20:25 WBC 13.3 H RBC 4.80 Hgb 14.5 Hct 44.2 MCV 92.1 MCH 30.2 MCHC 32.8 RDW 13.7 Plt Count 228 MPV 7.5 Neut % (Auto) 78.6 Lymph % (Auto) 10.4 [place] % (Auto) 9.7 H Eos % (Auto) 0.2 Baso % (Auto) 1.1 Neut # (Auto) 10.5 H Lymph # (Auto) 1.4 [place] # (Auto) 1.3 H Eos # (Auto) 0.0 Baso # (Auto) 0.1 Total Counted Neutrophils % (Manual) Lymphocytes % (Manual) Monocytes % (Manual) Platelet Estimate RBC Morphology Sodium 139 Potassium 4.0 Chloride 101 Carbon Dioxide 37 H Anion Gap 5.0 BUN 18 H Creatinine 0.80 D Estimated Creat Clear 46 Estimated GFR 69 Est GFR ( Amer) 83 D Glucose 187 H POC Glucose 215 H 188 H Calcium 9.1 Magnesium 2.1 Total Bilirubin 0.6 AST 47 H D ALT 22 Alkaline Phosphatase 72 NT-Pro-B Natriuret Pep 1310 H Total Protein 7.0 Albumin 4.0 Globulin 3.0 Albumin/Globulin Ratio 1.3 07/30/24 07/30/24 07/30/24 16:56 10:58 06:00 WBC 17.0 H D RBC 4.65 Hgb 14.2 Hct 41.8 MCV 89.7 MCH 30.5 MCHC 34.0 RDW 13.8 Plt Count 227 MPV 7.7 Neut % (Auto) 84.7 H Lymph % (Auto) 7.1 L [place] % (Auto) 7.4 Eos % (Auto) 0.1 Baso % (Auto) 0.6 Neut # (Auto) 14.4 H Lymph # (Auto) 1.2 [place] # (Auto) 1.3 H Eos # (Auto) 0.0 Baso # (Auto) 0.1 Total Counted 100 Neutrophils % (Manual) 88 H Lymphocytes % (Manual) 6 L Monocytes % (Manual) 6 Platelet Estimate Normal RBC Morphology Normal Sodium Potassium Chloride Carbon Dioxide Anion Gap BUN Creatinine Estimated Creat Clear Estimated GFR Est GFR ( Amer) Glucose POC Glucose 268 H 174 H Calcium Magnesium Total Bilirubin AST ALT Alkaline Phosphatase NT-Pro-B Natriuret Pep Total Protein Albumin Globulin Albumin/Globulin Ratio DS: Diagnosis Discharge Diagnosis (1) Acute hypoxic respiratory failure: Status: Acute Code(s): J96.01 - Acute respiratory failure with hypoxia (2) Non-ST elevation CA (NSTEMI): Status: Acute Code(s): I21.4 - Non-ST elevation (NSTEMI) myocardial infarction (3) Pneumonia: Status: Acute Code(s): J18.9 - Pneumonia, unspecified organism (4) Type 2 diabetes mellitus without complications: Status: Acute Code(s): E11.9 - Type 2 diabetes mellitus without complications (5) Hyperlipidemia: Status: Acute Code(s): E78.5 - Hyperlipidemia, unspecified (6) HTN (hypertension): Status: Acute Code(s): I10 - Essential (primary) hypertension Meds Home Medications and Allergies Home Medications ?Medication ?Instructions ?Recorded ?Confirmed ?Type cholecalciferol (vitamin D3) 25 25 mcg PO DAILY 04/09/22 07/29/24 History mcg (1,000 unit) capsule blood sugar diagnostic (Contour #50 strips 11/26/22 07/29/24 Rx Test Strips) aspirin 81 mg tablet,delayed 81 mg PO DAILY #100 tabs 07/06/24 07/29/24 Rx release clopidogrel 75 mg tablet (Plavix) 75 mg PO DAILY #90 tabs 07/06/24 07/29/24 Rx amlodipine 10 mg-valsartan 320 mg 1 tab PO DAILY 07/29/24 07/29/24 History tablet glyburide 5 mg tablet 20 mg PO DAILY 07/29/24 07/29/24 History metformin 500 mg tablet,extended 1,000 mg PO BID 07/29/24 07/29/24 History release 24 hr metoprolol tartrate 100 mg tablet 100 mg PO BID 07/29/24 07/29/24 History omeprazole 40 mg capsule,delayed 40 mg PO DAILY 07/29/24 07/29/24 History release rosuvastatin 5 mg tablet 5 mg PO HS 07/29/24 07/29/24 History trimethoprim 100 mg tablet 100 mg PO DAILY 07/29/24 07/29/24 History albuterol sulfate 90 mcg/actuation 2 puff inhalation Q6RT 30 days 07/31/24 Rx aerosol inhaler (Ventolin HFA) #8.5 grams azithromycin 500 mg tablet 500 mg PO DAILY 2 days #2 tabs 07/31/24 Rx bumetanide 1 mg tablet 1 mg PO DAILY #3 tabs 07/31/24 Rx fluticasone fur. 100 mcg-umeclid 1 inh inhalation DAILY 30 days #60 07/31/24 Rx 62.5 mcg-vilant 25 mcg ea inhalat.powder (Trelegy Ellipta) prednisone 20 mg tablet 40 mg (2 x 20 mg) PO DAILY 2 days 07/31/24 Rx #4 tabs New Prescriptions to Start Prescriptions: albuterol sulfate [Ventolin HFA] Hong Stewart azithromycin Pat,Hong bumetanide Hong Stewart [id number] [Trelegy Ellipta] Pat,Hong prednisone Hong Stewart Allergies Allergy/AdvReac Type Severity Reaction Status Date / Time Penicillins Allergy Severe swelling Verified 07/06/24 13:38 doxycycline Allergy Mild Verified 07/06/24 13:38 brompheniramine AdvReac Verified 07/06/24 13:38 bupivacaine (From Marcaine) AdvReac Verified 07/06/24 13:38 cephalexin (From Keflex) AdvReac Verified 07/06/24 13:38 clarithromycin AdvReac Verified 07/06/24 13:38 fluvastatin (From Lescol) AdvReac Verified 07/06/24 13:38 hydrochlorothiazide AdvReac Verified 07/06/24 13:38 lovastatin (From Altocor) AdvReac Verified 07/06/24 13:38 moxifloxacin (From Avelox) AdvReac Verified 07/06/24 13:38 nitrofurantoin (From AdvReac Verified 07/06/24 13:38 Macrobid) triamcinolone (From Kenalog) AdvReac Verified 07/06/24 13:38 Discharge Plan Disposition Patient Disposition: Home Health Service Condition: Fair Discharge Order Discharge Orders: Discharge Order (Routine); Ordered 07/31/24 Ordered By: Hong Stewart Follow up Plan Follow up with: Aracely Thomas APRN [Primary Care Provider] - Enter time for follow up (please call for appointment) Charles Herrera MD [Physician] - 2 weeks (please call for appointment) Prescriptions/Medication Reconciliation: New prednisone 20 mg Tablet 40 mg PO DAILY 2 Days Qty: 4 0RF albuterol sulfate [Ventolin HFA] 90 mcg/actuation Hfa Aerosol Inhaler 2 puff inhalation Q6RT 30 Days Qty: 8.5 0RF Trelegy Ellipta 100-62.5-25 mcg Blister With Device 1 inh inhalation DAILY 30 Days Qty: 60 0RF azithromycin 500 mg tablet 500 mg PO DAILY 2 Days Qty: 2 0RF bumetanide 1 mg tablet 1 mg PO DAILY Qty: 3 0RF Continued clopidogrel [Plavix] 75 mg tablet 75 mg PO DAILY Qty: 90 3RF aspirin 81 mg tablet,delayed release (DR/EC) 81 mg PO DAILY Qty: 100 10RF cholecalciferol (vitamin D3) 25 mcg (1,000 unit) capsule 25 mcg PO DAILY (DME) Contour Test Strips Strip See Rx Instructions .ROUTE .COMPLEX Qty: 50 2RF Dose Instruction: Use to check blood sugar as directed. Rx Instructions: Use to check blood sugar as directed. glyburide 5 mg tablet 20 mg PO DAILY Patient Comments: TAKE 4 TABLETS BY MOUTH ONCE DAILY. metoprolol tartrate 100 mg tablet 100 mg PO BID Patient Comments: TAKE 1 TABLET BY MOUTH TWICE DAILY. trimethoprim 100 mg tablet 100 mg PO DAILY Patient Comments: TAKE 1 TABLET BY MOUTH ONCE DAILY. omeprazole 40 mg capsule,delayed release(DR/EC) 40 mg PO DAILY Patient Comments: TAKE 1 CAPSULE BY MOUTH ONCE DAILY. metformin 500 mg tablet extended release 24 hr 1,000 mg PO BID Patient Comments: TAKE 2 TABLETS BY MOUTH ONCE DAILY. amlodipine-valsartan 10-320 mg tablet 1 tab PO DAILY Patient Comments: TAKE 1 TABLET BY MOUTH ONCE DAILY. rosuvastatin 5 mg tablet 5 mg PO HS Problem Reconciliation Problems Reviewed?: Yes Patient Discharge Instructions ACTIVITY: Continue current activity DIET: continue same diet Patient Instructions: DI for Pneumonia -- Adult Print Language: Mongolian Providers Primary Care Provider: Aracely Thomas Admit Provider: Adolfo Gonzales Attending Provider: Adolfo Gonzales
--- NOTE | 2024-07-31 07:59 | PC.NURSE ---
room air trial performed. pt o2 saturation dropped to 87% on room air. 2lnc re-applied.
[2024-07-31] MEDS: METOPROLOL TARTRATE 50MG TABLET 100 MG PO (09:18)
[2024-07-31] MEDS: IRBESARTAN 300MG TABLET 300 MG PO (09:18)
[2024-07-31] MEDS: predniSONE 20MG TAB 40 MG PO (09:19)
[2024-07-31] MEDS: CLOPIDOGREL 75MG TAB 75 MG PO (09:19)
[2024-07-31] MEDS: AMLODIPINE 10MG TABLET 10 MG PO (09:19)
[2024-07-31] MEDS: ASPIRIN EC 81MG TABLET 81 MG PO (09:19)
[2024-07-31] MEDS: HEPARIN SODIUM 5,000 UNIT/ML VIAL 5000 UNIT SUBCUT (09:20)
[2024-07-31] MEDS: BUMETANIDE 1MG/4ML VIAL 1 MG IV (09:27)
--- NOTE | 2024-07-31 10:59 | CT_ITS ---
PROCEDURE INFORMATION: Exam: CTA Chest With Contrast Exam date and time: 07/31/2024 11:36 AM Age: 83 years old Clinical indication: Shortness of breath; Additional info: Unexplained dyspnea TECHNIQUE: Imaging protocol: Computed tomographic angiography of the chest with contrast. Exam focused on the arteries. 3D rendering (Not supervised by radiologist): MIP and/or 3D reconstructed images were created by the technologist. Radiation optimization: All CT scans at this facility use at least one of these dose optimization techniques: automated exposure control; mA and/or kV adjustment per patient size (includes targeted exams where dose is matched to clinical indication); or iterative reconstruction. Contrast material: ISOVUE; Contrast volume: 80 ml; Contrast route: INTRAVENOUS (IV); COMPARISON: CR XR CHEST 2V 07/28/2024 10:37 PM FINDINGS: Pulmonary arteries: No evidence of pulmonary embolus to the segmental level. Aorta: No aneurysm of the aorta. No dissection of the aorta. Lungs: 4.5 mm pulmonary nodule in the left lower lobe series 5, image 87. Pleural spaces: Unremarkable. No pneumothorax. No pleural effusion. Heart: Unremarkable. No cardiomegaly. No pericardial effusion. Coronary arteries: Coronary artery calcifications may indicate coronary artery disease. Lymph nodes: Pathologic node anterior to the catracho 10 x 10 mm. Adrenal glands: 19.5 x 16.9 mm left adrenal nodule measures 14 Hounsfield units and is not clearly adrenal adenoma. Kidneys: 5.3 cm simple cyst left kidney . No follow-up imaging recommended . Bones/joints: Unremarkable. No acute fracture. Soft tissues: Unremarkable. IMPRESSION: 1. No evidence of pulmonary embolus to the segmental level. 2. No aneurysm of the aorta. 3. No dissection of the aorta. 4. 19.5 x 16.9 mm left adrenal nodule measures 14 Hounsfield units and is not clearly adrenal adenoma. In a patient with no cancer history, consider 12 month follow-up adrenal CT. (Reference: Gary) References: Gary ARREDONDO, et al. Management of Incidental Adrenal Masses: A White Paper of the ACR Incidental Findings Committee. J Am Raymundo Radiol. 2017;14(8):3249-4679. 5. 4.5 mm pulmonary nodule in the left lower lobe series 5, image 87. For patients at low risk (minimal or absent history of smoking and of other known risk factors), no routine follow-up is indicated. For patients at high risk (history of smoking or of other known risk factors), consider optional CT Chest at 12 months. (Reference: Isaias) References: Isaias Aldridge et al. Guidelines for Management of Incidental Pulmonary Nodules Detected on CT Images: From the Fleischner Society 2017. Radiology. 2017;284(1):228-243. 6. Pathologic node anterior to the catracho 10 x 10 mm. COMMENTS: Consistent with the [employer]'s Incidental Findings Committee white paper (J Am Raymundo Radiol 2018): Any incidental renal lesion less than 1 cm or classified as too small to characterize, or any incidental cystic renal lesion characterized as simple-appearing, is likely benign. No follow-up imaging is recommended for these lesions per consensus recommendations based on imaging criteria.
[2024-07-31] MEDS: ONDANSETRON 4MG/2ML VIAL 4 MG IV (11:27)
[2024-07-31] MEDS: 0.9 % SODIUM CHLORIDE 50 ML VIAL IV (11:48)
[2024-07-31] MEDS: SODIUM CHLORIDE 0.9% 10ML SYR (RAD ONLY) 10 ML IV (11:50)
[2024-07-31] MEDS: IOPAMIDOL-370 (76%);100ML BOTTLE 80 ML IV (11:50)
[2024-07-31] MEDS: FLUTICASONE/UMECLIDIN/VILANTER 100/62.5/25MCG INHALER 1 PUFF IH (11:51)
[2024-07-31] MEDS: AEROCHAMBER/OPTIHALER 1 UNIT MC (11:51)
[2024-07-31] MEDS: ALBUTEROL-HFA 90MCG/PUFF INHALER 8GM 2 PUFF IH (11:52)
[2024-07-31 12:07] LABS: POC Glucose,Bedside 192 (70-110)
--- NOTE | 2024-08-01 10:11 | SW/DCPLANNER ---
Spoke with patients daughter and daughter stated that patient is doing okay. Patients daughter said she has gotten some of her medication filled at [facility] and that she knew there was more so i was able to tell her where the others were filled at. Made a follow up pulmonology appointment in 2 weeks for patient and it is 08/17/24 at 1. Patient daughter requested to have [place] to come in and help with home health. No concerns or questions at this time. Jean Coreas
--- NOTE | 2024-08-02 08:29 | SW/DCPLANNER ---
Faxed papers to [facility] and they were able to accept her as a patient. Jean Coreas
== END 2024-07-31 14:40 | disposition home health service (06) | DRG 193 ==
LOC: ER 07-29 00:05 → 2ND 07-29 00:24
PROVIDERS: Internal Medicine Adolescent Medicine; Nurse Practitioner Acute Care; Admitting Provider Student in an Organized Health Care Education/Training Program; Emergency Provider Emergency Medicine; PCP Nurse Practitioner; Visit Provider Student in an Organized Health Care Education/Training Program
DX: J12.9 Viral pneumonia, unspecified (principal); I21.4 Non-ST elevation (NSTEMI) myocardial infarction; J96.01 Acute respiratory failure with hypoxia; E11.9 Type 2 diabetes mellitus without complications; E78.5 Hyperlipidemia, unspecified; I10 Essential (primary) hypertension; Z79.899 Other long term (current) drug therapy; Z79.84 Long term (current) use of oral hypoglycemic drugs; Z99.81 Dependence on supplemental oxygen; E55.9 Vitamin D deficiency, unspecified; F17.210 Nicotine dependence, cigarettes, uncomplicated
CPT/HCPCS: 36415; 71046; 71275; 80048; 80053; 81015; 82803; 82962; 83605; 83735; 83880; 84484; 85007; 85025; 86803; 87070; 87086; 87205; 87389; 87636; 93005; 94640; 94761; 97161; 97165; 99291; J0456; J1644; J1939; J2405; J2919; J3475; J7050; J7060; J7120; J7613; J7620; Q9967

== ENCOUNTER 2024-08-10 13:59 | Emergency (ER) | payer MEDICARE, MEDICAID, SELFPAY ==
[2024-08-10] VITALS (10 sets, daily range): BP systolic 115–176; BP diastolic 49–94; PULSE 64–77; RESP 20; TEMP 36.9–37.1; O2SAT 92–96; BMI 27.2
--- NOTE | 2024-08-10 14:00 | XR_ITS ---
FINAL REPORT CLINICAL HISTORY: Left hip pain after fall FINDINGS: Pelvis One view was obtained. There is no fracture or dislocation. There are degenerative changes in the lower lumbar spine and both hips. No soft tissue abnormality is identified. IMPRESSION: No acute process. If symptoms persist or are severe, recommend CT. Reviewed, Interpreted and Dictated by Mike Louis III, MD Transcribed by Claudia Ross Authenticated and [facility]
--- NOTE | 2024-08-10 14:00 | XR_ITS ---
FINAL REPORT CLINICAL HISTORY: Fall FINDINGS: SINGLE VIEW CHEST The heart is normal in size. The mediastinum is unremarkable. The lungs are clear. There is no pneumothorax. There are degenerative changes of the left shoulder. IMPRESSION: No acute process. Reviewed, Interpreted and Dictated by Mike Louis III, MD Transcribed by Claudia Ross Authenticated and [facility]
--- NOTE | 2024-08-10 14:01 | CT_ITS ---
FINAL REPORT CLINICAL HISTORY: Fall FINDINGS: Axial images of the head were obtained without contrast. Coronal reformatted images were also obtained. This study was performed with techniques to keep radiation doses as low as reasonably achievable (ALARA). Individualized dose reduction techniques using automated exposure control or adjustment of mA and/or kV according to the patient's size were employed. There is generalized age-appropriate atrophy. Periventricular low-attenuation areas are seen consistent with moderate chronic ischemic changes. There is a small area of subarachnoid hemorrhage in the left sylvian fissure. There is no evidence of acute infarct. There is no evidence of shift of the midline structures. There is left frontal scalp soft tissue swelling. IMPRESSION: Subarachnoid hemorrhage in the left sylvian fissure. Recommend follow-up CT. Findings were reported to order physician on 08/10/2024 at 3:51 PM Reviewed, Interpreted and Dictated by Mike Louis III, MD Transcribed by Claudia Ross Authenticated and [facility]
--- NOTE | 2024-08-10 14:01 | CT_ITS ---
FINAL REPORT CLINICAL HISTORY: Fall FINDINGS: Axial CT images of the cervical spine were obtained without contrast. Sagittal and coronal reformatted images were also obtained. This study was performed with techniques to keep radiation doses as low as reasonably achievable (ALARA). Individualized dose reduction techniques using automated exposure control or adjustment of mA and/or kV according to the patient's size were employed. There is no evidence of fracture or dislocation. There are moderate and severe degenerative changes with multilevel neuroforaminal narrowing. There is mild central canal stenosis at C5-6 and C6-7. There is mild anterolisthesis of C3 on 4 and C4 on 5. IMPRESSION: Multilevel degenerative changes without acute bony abnormality. Reviewed, Interpreted and Dictated by Mike Louis III, MD Transcribed by Claudia Ross Authenticated and . [facility]
--- NOTE | 2024-08-10 14:02 | CT_ITS ---
FINAL REPORT TECHNIQUE: Axial images were performed through the lumbar spine by computed tomography. Sagittal reconstruction images were also performed. This study was performed with techniques to keep radiation doses as low as reasonably achievable, (ALARA). Individualized dose reduction techniques using automated exposure control or adjustment of mA and/or kV according to the patient''s size were employed. CLINICAL HISTORY: Fall lumbar spine/hip pain with radiculopathy FINDINGS: There are moderate degenerative changes with multilevel neuroforaminal narrowing. There is mild retrolisthesis of L4 on 5. There is a probable chronic dissection of the abdominal aorta. IMPRESSION: Degenerative changes without acute bony abnormality. 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 Reviewed, Interpreted and Dictated by Mike Louis III, MD Transcribed by Claudia Ross Authenticated and . [facility]
--- NOTE | 2024-08-10 14:02 | XR_ITS ---
FINAL REPORT CLINICAL HISTORY: Fall, left leg/hip pain FINDINGS: Left femur Two views were obtained. There is no fracture or dislocation. There are mild degenerative changes. Vascular calcification is identified. IMPRESSION: No acute process. Reviewed, Interpreted and Dictated by Mike Louis III, MD Transcribed by Claudia Ross Authenticated and [facility]
--- NOTE | 2024-08-10 14:03 | ED_ITS ---
<Statement entered by Charlotte Jung DO - 08/10/24 16:03> I was consulted by the ESTRELLA, and we discussed the complexity of the problems being addressed. I approved the treatment and management plan for this patient's care in the emergency department, thus performing a substantive portion of the medical decision making. Charlotte Jung DO Discharge Plan Disposition Patient Disposition: Xfer Short-Term Hosp Condition: Fair Prescriptions Prescriptions: No Action clopidogrel [Plavix] 75 mg tablet 75 mg PO DAILY Qty: 90 3RF aspirin 81 mg tablet,delayed release (DR/EC) 81 mg PO DAILY Qty: 100 10RF cholecalciferol (vitamin D3) 25 mcg (1,000 unit) capsule 25 mcg PO DAILY nystatin 100,000 unit/mL suspension 4 ml PO QID 10 Days Qty: 160 1RF Rx Instructions: swish, gargle, and swallow (DME) nebulizers Misc See Rx Instructions .MEDSUPPLY Qty: 1 0RF Rx Instructions: As directed (DME) nebulizer accessories Kit See Rx Instructions .MEDSUPPLY Qty: 1 0RF Rx Instructions: As directed ipratropium-albuterol 0.5 mg-3 mg(2.5 mg base)/3 mL solution for nebulization 3 ml inhalation Q6H Qty: 360 2RF (DME) Contour Test Strips Strip See Rx Instructions .ROUTE .COMPLEX Qty: 50 2RF Dose Instruction: Use to check blood sugar as directed. Rx Instructions: Use to check blood sugar as directed. glyburide 5 mg tablet 20 mg PO DAILY Patient Comments: TAKE 4 TABLETS BY MOUTH ONCE DAILY. metoprolol tartrate 100 mg tablet 100 mg PO BID Patient Comments: TAKE 1 TABLET BY MOUTH TWICE DAILY. trimethoprim 100 mg tablet 100 mg PO DAILY Patient Comments: TAKE 1 TABLET BY MOUTH ONCE DAILY. omeprazole 40 mg capsule,delayed release(DR/EC) 40 mg PO DAILY Patient Comments: TAKE 1 CAPSULE BY MOUTH ONCE DAILY. metformin 500 mg tablet extended release 24 hr 1,000 mg PO BID Patient Comments: TAKE 2 TABLETS BY MOUTH ONCE DAILY. amlodipine-valsartan 10-320 mg tablet 1 tab PO DAILY Patient Comments: TAKE 1 TABLET BY MOUTH ONCE DAILY. rosuvastatin 5 mg tablet 5 mg PO HS albuterol sulfate [Ventolin HFA] 90 mcg/actuation Hfa Aerosol Inhaler 2 puff inhalation Q6RT 30 Days Qty: 8.5 0RF Clinical Impressions Clinical Impression: Subarachnoid hemorrhage, Traumatic subarachnoid hemorrhage Stand Alone Forms Stand Alone Forms: Transfer Record - ED Print Language Print Language: Frisian Discharge ED Provider: Bashir Quinonez General Adult HPI General Chief complaint: Extremity Injury, Lower Stated complaint: Fall, Hip pain Time Seen by Provider: 08/10/24 13:59 Mode of Arrival: EMS Source of Information: Patient and EMS Limitations: No Limitations Description of Symptoms (Recalled from ER Triage Doc. by RN): left hip and pelvis pain after a fall @0300 History of Present Illness HPI narrative: 83-year-old female presents to the emergency department via EMS for a fall of approximately 3 AM last night with some left hip pain/left radiculopathy and left lower back pain, worse with ambulation. Patient denies any striking of the head, no LOC, she is not on any anticoagulants but is on antiplatelet therapy with Plavix, denies any dizziness lightheadedness headache, denies any presyncope or syncopal episode causing the pain, she believes it was more of a mechanical fall. There was no prolonged time down, patient was able to get up on her own. She denies any fever chills cough congestion chest pain, no nausea no vomiting no constipation no diarrhea no urinary type symptomatology, she denies any other extremity pain, she denies any urinary bladder or bowel dysfunction, denies any numbness tingling upper or lower extremity weakness or saddle anesthesia. 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 Was recently admitted to the hospitalist service at the end of July 2024 for acute respiratory failure in the setting of pneumonia, this is improved, no current oxygen requirement. Initial triage vitals are unremarkable. Onset (ago): hour(s) Related Data Home Medications ?Medication ?Instructions ?Recorded ?Confirmed cholecalciferol (vitamin D3) 25 25 mcg PO DAILY 04/09/22 08/08/24 mcg (1,000 unit) capsule amlodipine 10 mg-valsartan 320 mg 1 tab PO DAILY 07/29/24 08/08/24 tablet glyburide 5 mg tablet 20 mg PO DAILY 07/29/24 08/08/24 metformin 500 mg tablet,extended 1,000 mg PO BID 07/29/24 08/08/24 release 24 hr metoprolol tartrate 100 mg tablet 100 mg PO BID 07/29/24 08/08/24 omeprazole 40 mg capsule,delayed 40 mg PO DAILY 07/29/24 08/08/24 release rosuvastatin 5 mg tablet 5 mg PO HS 07/29/24 08/08/24 trimethoprim 100 mg tablet 100 mg PO DAILY 07/29/24 08/08/24 Previous Rx's ?Medication ?Instructions ?Recorded blood sugar diagnostic (Contour #50 strips 11/26/22 Test Strips) aspirin 81 mg tablet,delayed 81 mg PO DAILY #100 tabs 07/06/24 release clopidogrel 75 mg tablet (Plavix) 75 mg PO DAILY #90 tabs 07/06/24 albuterol sulfate 90 mcg/actuation 2 puff inhalation Q6RT 30 days 07/31/24 aerosol inhaler (Ventolin HFA) #8.5 grams ipratropium 0.5 mg-albuterol 3 mg 3 ml inhalation Q6H #360 mL 08/08/24 (2.5 mg base)/3 mL nebulization soln nebulizer accessories #1 ea 08/08/24 nebulizers #1 ea 08/08/24 nystatin 100,000 unit/mL oral 4 ml PO QID 10 days #160 mL 08/08/24 suspension Allergies Allergy/AdvReac Type Severity Reaction Status Date / Time Penicillins Allergy Severe swelling Verified 08/08/24 14:07 doxycycline Allergy Mild Verified 08/08/24 14:07 brompheniramine AdvReac Verified 08/08/24 14:07 bupivacaine (From Marcaine) AdvReac Verified 08/08/24 14:07 cephalexin (From Keflex) AdvReac Verified 08/08/24 14:07 clarithromycin AdvReac Verified 08/08/24 14:07 fluvastatin (From Lescol) AdvReac Verified 08/08/24 14:07 hydrochlorothiazide AdvReac Verified 08/08/24 14:07 lovastatin (From Altocor) AdvReac Verified 08/08/24 14:07 moxifloxacin (From Avelox) AdvReac Verified 08/08/24 14:07 nitrofurantoin (From AdvReac Verified 08/08/24 14:07 Macrobid) triamcinolone (From Kenalog) AdvReac Verified 08/08/24 14:07 PFSH [facility] Disclaimer: The information contained in this section may have been updated after the patient was seen, as this information can be updated by other users. Medical History Encounter for immunization Thyroid nodule Visual hallucination Right-sided headache Coronary artery calcification seen on CT scan Pulmonary nodule Vitamin D deficiency Type 2 diabetes mellitus without complications Hyperlipidemia Diabetes mellitus HTN (hypertension) Degenerative joint disease (DJD) of lumbar spine Surgical History H/O removal of cyst History of cholecystectomy Hx of cataract surgery Family History Mother Coronary artery disease Grandmother Stroke Brother Heart attack Social History Smoking Status: Current every day smoker tobacco type: cigarettes packs per day: 1 alcohol intake: never current occupational status: other Travel in the last 8 weeks: None household members: other housing: house Other Medical History Have you received the Flu Vaccine for this season: No Have you received the Pneumonia Vaccine: Yes ROS Obtained: Yes All systems reviewed & no additional complaints except as documented Physical Exam General General appearance: alert and in no apparent distress Head Head exam: atraumatic and normocephalic Eye Eye exam: Present PERRL and EOMI ENT ENT exam: Present mucous membranes moist and other (There are some mild ecchymosis on the left side of the patient's zygomatic bone) Neck Neck exam: Present normal inspection, full ROM and other (There is no paraspinal tenderness to palpation no spinal tenderness palpation the cervical spine); Absent tenderness Chest Chest inspection: Present normal inspection, symmetric chest wall rise and other (There is no chest wall tenderness to palpation) Respiratory Respiratory exam: Present normal lung sounds bilaterally, wheezes and other (Mild diffuse wheezing noted throughout bilateral lung see sounded chronic in nature); Absent respiratory distress Cardiovascular Cardiovascular exam: Present regular rate and normal rhythm Abdominal Exam Abdominal exam: Present soft; Absent tenderness, guarding, rebound or rigidity Extremities Exam Extremities exam: Present normal inspection, full ROM, tenderness and other (Patient has full range of motion of the hip joint, pelvis is stable, 2 AP and lateral compression, there is some mild pain palpation to the left no crepitus, no obvious deformity, no internal or external rotation no shortening of the leg otherwise neurovascularly intact) Back Exam Back exam: Present full ROM, tenderness and paraspinal tenderness Comment: Mild paraspinal tenderness to the lower lumbar spine Neurological Exam Neurological exam: Present alert and oriented X3 Psychiatric Psychiatric exam: Present normal affect Skin Skin exam: Present warm and dry Medical Decision Making Medical Records Medical records reviewed: Yes I reviewed the patient's medical records. Screening: Per USPSTF and CDC recommendations, given the prevalence of disease in our region, it is our hospital?s policy to screen for HIV and viral Hepatitis for all patients aged 18 and over and those with ongoing risk factors. Cristhian Inquiry Pt receiving controlled substance: No Cristhian was queried for this patient: No Vital Signs: 08/10/24 13:58 08/10/24 14:00 08/10/24 15:01 Temperature 98.4 F Temperature Source Oral Pulse Rate 69 67 Pulse Rate [Right] 74 Respiratory Rate 20 Blood Pressure 166/57 H 162/54 H Blood Pressure [Right Arm] 162/73 H Blood Pressure Mean Blood Pressure Mean [Right Arm] 102 02 Sat by Pulse Oximetry 96 96 96 Oxygen Delivery Method Room Air 08/10/24 15:30 08/10/24 16:00 08/10/24 16:07 Temperature Temperature Source Pulse Rate 65 64 74 Pulse Rate [Right] Respiratory Rate Blood Pressure 166/68 H 176/66 H 115/94 H Blood Pressure [Right Arm] Blood Pressure Mean Blood Pressure Mean [Right Arm] 02 Sat by Pulse Oximetry 94 L 94 L 92 L Oxygen Delivery Method 08/10/24 16:55 08/10/24 17:06 08/10/24 17:30 Temperature Temperature Source Pulse Rate Pulse Rate [Right] Respiratory Rate Blood Pressure 156/84 H 155/49 H 164/51 H Blood Pressure [Right Arm] Blood Pressure Mean 108 88 88 Blood Pressure Mean [Right Arm] 02 Sat by Pulse Oximetry Oxygen Delivery Method 08/10/24 17:52 Temperature 98.7 F Temperature Source Pulse Rate 77 Pulse Rate [Right] Respiratory Rate 20 Blood Pressure 164/51 H Blood Pressure [Right Arm] Blood Pressure Mean Blood Pressure Mean [Right Arm] 02 Sat by Pulse Oximetry Oxygen Delivery Method Lab Data Lab results reviewed: Yes I reviewed the patient's lab results. Lab Results 08/10/24 14:10: WBC 15.3 H, RBC 4.93, Hgb 14.9, Hct 44.5, MCV 90.3, MCH 30.2, MCHC 33.5, RDW 13.4, Plt Count 298, MPV 7.4, Neut % (Auto) 79.4, Lymph % (Auto) 13.0, [place] % (Auto) 6.4, Eos % (Auto) 0.8, Baso % (Auto) 0.5, Neut # (Auto) 12.1 H, Lymph # (Auto) 2.0, [place] # (Auto) 1.0, Eos # (Auto) 0.1, Baso # (Auto) 0.1, Total Counted 100, Neutrophils % (Manual) 74, Lymphocytes % (Manual) 20, Monocytes % (Manual) 6, Platelet Estimate Normal, RBC Morphology Normal, Sodium 138, Potassium 3.6, Chloride 107, Carbon Dioxide 29, Anion Gap 5.6, BUN 19 H, Creatinine 0.70, Estimated Creat Clear 46, Estimated GFR 80, Est GFR ( Amer) 97, Glucose 88, Calcium 9.4, Total Bilirubin 0.5, AST 34, ALT 22, Alkaline Phosphatase 70, Troponin I 0.02, Total Protein 6.8, Albumin 3.9, Globulin 2.9, Albumin/Globulin Ratio 1.3 08/10/24 16:58: Urine Color Yellow, Urine Appearance Sl cloudy, Urine pH 6.0, Ur Specific Shiner 1.025, Urine Protein Negative, Urine Glucose (UA) Trace, Urine Ketones Negative, Urine Blood Negative, Urine Nitrate Negative, Urine Bilirubin Negative, Urine Urobilinogen 0.2, Ur Leukocyte Esterase 1+ A 08/10/24 14:10 08/10/24 14:10 Orders (Tests/Meds): ED MEDICATIONS Generic Name Dose Route Start Last Admin Trade Name Freq PRN Reason Stop Dose Admin Sodium Chloride 10 ml 08/10/24 14:14 Sodium Chloride 0.9% 10ml Flush Syringe IV 09/09/24 14:13 NEEDED PRN Maintain IV Site ORDERS Category Date Time Status CT cervical spine wo con Stat Cat Scan 08/10/24 14:[address] facial bones wo con Stat Cat Scan 08/10/24 14:[address] head/brain wo con Stat Cat Scan 08/10/24 14:[address] lumbar spine wo con Stat Cat Scan 08/10/24 14:02 Completed Pelvis XR 1-2 views [XR pelvis 1-2V] Stat Exams 08/10/24 14:00 Completed XR chest portable Stat Exams 08/10/24 14:00 Completed XR femur LT 2V Stat Exams 08/10/24 14:02 Completed Complete Blood Count Auto Diff Stat Lab 08/10/24 14:10 Completed Comprehensive Metabolic Panel Stat Lab 08/10/24 14:10 Completed Troponin I Stat Lab 08/10/24 14:10 Completed Urinalysis and Microscopic Stat Lab 08/10/24 16:58 Results Urine Culture Stat Micro 08/10/24 16:58 Received Medical Decision Narrative: 83-year-old female presents emerged from for a fall left hip pain/back pain, differential diagnose include but not limited to, lumbar spine fracture, lumbar radiculopathy, degenerative disc disease lumbar spine, acute lumbar sacral strain, soft tissue injury, closed head injury, intertrochanteric hip fracture, hip dislocation, femur fracture, cervical spine fracture, cervicalgia, cardiac arrhythmia, electrolyte disturbance, acute SDH, traumatic SAH. I discussed patient case with attending physician Dr. Jung and Will obtain basic laboratory studies EKG urinalysis troponin, will obtain CT of the head, CT of the facial bones, CT of the cervical spine and lumbar spine without contrast along with chest x-ray pelvic x-ray and femur x-ray on the left. Offered patient analgesia, she denies/deferred at this time, states she only has pain with ambulation. The patient CBC leukocytosis of 15.3 unsure if reactive due to trauma or underlying infection. CMP is notable for mild elevation in BUN, creatinine within normal limits otherwise unremarkable CMP I along with the attending physician reviewed the patient's EKG, NSR at 65 bpm parable within normals, QT interval within normal limits there is no STEMI. Troponin within normal limit Patient is refusing urinalysis and refuses to be straight catheterized. Reviewed the patient's chest x-ray along the corresponding radiologic report no acute process I reviewed the patient's pelvic x-ray along with corresponding radiologic report no acute process if symptoms persist or are severe recommend CT. Reviewed the patient's femur x-ray on the left along with corresponding radiologic report, no acute process. I reviewed patient CT head without contrast along the corresponding radiologic report there is subarachnoid hemorrhage in the left sylvian fissure recommend follow-up CT, I discussed this with the on-call radiologist at approximately 3:51 PM I reviewed the patient's CT cervical spine without contrast along with the corresponding radiologic report multilevel degenerative change without acute bony abnormality. I reviewed the patient's CT lumbar spine without contrast and with corresponding radiologic report, degenerative changes without acute bony abnormality, probable chronic dissection in the abdominal aorta. I reviewed the patient's CT face without contrast along with corresponding radiologic report no acute fracture or bony abnormality. This is patient's case with the transfer physician Dr. Martinez at 4:15 PM he discussed the patient's case with Dr. Jung the neurosurgeon patient will be transferred ED to ED to [facility]. I discussed need for transfer with the patient and family at the bedside patient and family agree with current treatment plan/discharge plan. Patient will be transported via ambulance service at 5:53 PM to the emergency [place] emergency department. For further evaluation/care. Critical Care Critical Care Time Critical Care Time: No
--- NOTE | 2024-08-10 14:18 | ECG_ITS ---
APPROVED REPORT Exam: Resting ECG HR:65 bpm ECG Measurements Heart Rate 65 AXES DC 164 P 71 QRSd 78 QRS 32 QT 371 T 74 QTc 383 Conclusion SINUS RHYTHM NONSPECIFIC T-WAVE ABNORMALITY BORDERLINE ECG Electronically signed by : MRAY FREIRE, 08/10/2024 16:05:03
--- NOTE | 2024-08-10 14:20 | CT_ITS ---
FINAL REPORT TECHNIQUE: Axial CT images of the face were obtained without contrast. Coronal reformatted images were also obtained. This study was performed with techniques to keep radiation doses as low as reasonably achievable, (ALARA). Individualized dose reduction techniques using automated exposure control or adjustment of mA and/or kV according to the patient''s size were employed. CLINICAL HISTORY: Left-sided facial pain after fall FINDINGS: Motion artifact on many of the images decreases the sensitivity, especially at the level of the mandible. There is left supraorbital soft tissue swelling without acute bony abnormality. There is mild mucosal thickening of the left maxillary sinus. IMPRESSION: No fracture or acute bony abnormality identified. Reviewed, Interpreted and Dictated by Mike Louis III, MD Transcribed by Claudia Ross Authenticated and [facility]
[2024-08-10 14:32] LABS: Basophils # 0.1 K/mm3 (0-0.2); Basophils % 0.5 % (0.1-2.0); Eosinophils # 0.1 K/mm3 (0.0-0.4); Eosinophils % 0.8 % (0.1-12.0); Hematocrit 44.5 % (37.0-47.0); Hemoglobin 14.9 g/dL (12.2-16.2); Mean Corpuscular HGB Conc 33.5 g/dL (31.8-35.4); Mean Corpuscular Hemoglobin 30.2 pg (27.0-31.2); Mean Corpuscular Volume 90.3 fl (81-99); Mean Platelet Volume 7.4 fl (7.4-10.4); Monocytes % 6.4 % (1.7-9.3); Neutrophils # 12.1 K/mm3 (1.8-7.8); Neutrophils % 79.4 % (37.0-80.0); Platelet Count 298 K/mm3 (142-424); Red Blood Count 4.93 M/mm3 (4.20-5.40); Red Cell Distribution Width 13.4 % (11.5-17.5); White Blood Count 15.3 K/mm3 (4.8-10.8)
[2024-08-10 14:35] LABS: Albumin Level 3.9 g/dl (3.5-5.0); Chloride 107 mmol/L (98-107); MANUAL DIFFERENTIAL MANUAL DIFFERENTIAL (MANUAL DIFF); Potassium 3.6 mmoL/L (3.5-5.1); Sodium 138 mmol/L (136-145)
[2024-08-10 14:38] LABS: Alanine Aminotransferase 22 U/L (12-78); Albumin/Globulin Ratio 1.3 (1.1-1.8); Alkaline Phosphatase 70 U/L (38-126); Anion Gap 5.6 mEq/L (5-15); Aspartate Amino Transferase 34 U/L (14-36); Bilirubin,Total 0.5 mg/dl (0.2-1.3); Blood Urea Nitrogen 19 mg/dl (7-17); Calcium 9.4 mg/dl (8.4-10.2); Carbon Dioxide 29 mmol/L (22.0-30.0); Creatinine Clearance Estimated 46 mL/min (50-200); Estimated Glomerular Filt Rate 80 ml/min (>60); GFR (African American) 97 ML/MIN (>60); Globulin 2.9 g/dL (1.3-3.2); Glucose 88 mg/dl (74-100); Total Protein,Serum 6.8 g/dl (6.3-8.2)
[2024-08-10 14:50] LABS: Troponin I 0.02 ng/ml (0.00-0.034)
[2024-08-10 15:40] LABS: Lymphocytes % 20 % (10-50); Monocytes % 6 % (2-9); Neutrophils % 74 % (42-76); RBC Morphology Normal; Total Cells Counted 100
[2024-08-10 15:41] LABS: Platelet Estimate Normal
--- NOTE | 2024-08-10 15:45 | PC.NURSE ---
pt refused to let nursing obtain a cathed specimen. notified
--- NOTE | 2024-08-10 16:45 | PC.NURSE ---
called EMS at this time for transfer
[2024-08-10 17:06] LABS: Microscopic, Urine URINE MICROSCOPIC (MICROSCOPIC)
--- NOTE | 2024-08-10 17:22 | PC.NURSE ---
report called to Ximena @ [facility]
[2024-08-10 17:49] LABS: Appearance,Urine SL CLOUDY (Clear); Bilirubin,Urine Negative (Negative); Blood, Urine Negative (Negative); Color,Urine YELLOW (Yellow); Glucose,Urine (UA) TRACE (Negative); Ketones,Urine Negative (Negative); Leukocyte Esterase,Urine 1+ (Negative); Nitrate,Urine Negative (Negative); Protein,Urine Negative (Negative); Specific Gravity, Urine 1.025 (1.005-1.030); Urobilinogen,Urine 0.2 EU/dl (0.2)
[2024-08-10 19:46] LABS: Bacteria,Urine 2+ /lpf
== END 2024-08-10 17:54 | disposition short-term general hospital (02) ==
PROVIDERS: Physician Assistant; Emergency Provider Emergency Medicine; PCP Nurse Practitioner
DX: S06.6XAA Traumatic subarachnoid hemorrhage with loss of consciousness status unknown, initial encounter (principal); M25.552 Pain in left hip; M54.50 Low back pain, unspecified; M54.16 Radiculopathy, lumbar region; W19.XXXA Unspecified fall, initial encounter; Y93.9 Activity, unspecified; Y92.9 Unspecified place or not applicable
CPT/HCPCS: 70450; 70486; 71045; 72125; 72131; 72170; 73552; 80053; 81001; 84484; 85007; 85025; 85027; 87086; 93005; 99284

== ENCOUNTER 2024-08-17 14:39 | Emergency (ER) | payer MEDICARE, MEDICAID, SELFPAY ==
[2024-08-17 14:39] VITALS: BP 164/82; PULSE 74; RESP 20; TEMP 36.9; O2SAT 95; BMI 30.7
--- NOTE | 2024-08-17 14:39 | PC.NURSE ---
DR FREIRE AT BEDSIDE
--- NOTE | 2024-08-17 14:40 | ECG_ITS ---
APPROVED REPORT Exam: Resting ECG HR:72 bpm ECG Measurements Heart Rate 72 AXES MO 157 P 63 QRSd 83 QRS 42 QT 372 T 81 QTc 396 Conclusion SINUS RHYTHM MODERATE ST DEPRESSION [0.05+ mV ST DEPRESSION] ABNORMAL ECG UNCONFIRMED REPORT Electronically signed by : Pedrito Nava, 08/17/2024 21:27:56
--- NOTE | 2024-08-17 14:43 | PC.NURSE ---
Blood glucose measured at 14:38 and came back as 216.
--- NOTE | 2024-08-17 14:44 | CT_ITS ---
FINAL REPORT TECHNIQUE: Thin section axial CT with contrast with 3D MIP reconstruction CLINICAL HISTORY: LKN 0500, speech difficulty, vision change FINDINGS: CTA HEAD No aneurysm is seen. Major intracranial vessels are patent without significant stenosis. IMPRESSION: Unremarkable This study was performed using automated techniques to achieve radiation exposure as low as reasonably achievable Reviewed, Interpreted and Dictated by Lindy Graf MD Transcribed by Claudia Ross Authenticated and [facility]
--- NOTE | 2024-08-17 14:44 | CT_ITS ---
FINAL REPORT CLINICAL HISTORY: LKN 0500, speech difficulty, vision change FINDINGS: CT NECK ANGIO, WITHOUT AND WITH CONTRAST TECHNIQUE: Thin section axial CT with contrast with multiplanar 3D MIP reconstruction NASCET criteria and technique was utilized during interpretation. Aortic arch: Arch shows no significant narrowing. Great vessel origins are widely patent. Right carotid: There is moderate calcified plaque disease of the proximal ICA. Proximal ICA stenosis measures 60%. Left carotid: There is advanced calcified plaque disease of the proximal ICA. Stenosis is considered to measure 80 to 90%. Vertebrals: Right vertebral artery is dominant. No significant stenosis is present. There is a right parotid mass measuring 15 mm. The thyroid is moderately enlarged diffusely. IMPRESSION: High-grade left ICA stenosis. Moderate right ICA stenosis measuring up to 60%. Incidental right parotid mass, nonspecific. This study was performed using automated techniques to achieve radiation exposure as low as reasonably Reviewed, Interpreted and Dictated by Lindy Graf MD Transcribed by Claudia Ross Authenticated and [facility]
--- NOTE | 2024-08-17 14:44 | CT_ITS ---
FINAL REPORT TECHNIQUE: Noncontrast exam This study was performed with techniques to keep radiation doses as low as reasonably achievable, (ALARA). Individualized dose reduction techniques using automated exposure control or adjustment of mA and/or kV according to the patient''s size were employed. CLINICAL HISTORY: LKN 0500, speech difficulty, vision change COMPARISON: 08/10/2024 FINDINGS: Moderate atrophy and severe chronic ischemic white matter changes are noted. 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 No cortical edema is present. There is no mass or hemorrhage. Ventricles are normal. Bone windows show no skull fracture or obvious obstructive lesion. IMPRESSION: 1. No acute intracranial abnormality or obvious mass. Consider MRI follow-up should symptoms persist. Reviewed, Interpreted and Dictated by Lindy Graf MD Transcribed by Claudia Ross Authenticated and [facility]
--- NOTE | 2024-08-17 14:45 | XR_ITS ---
FINAL REPORT CLINICAL HISTORY: AMS COMPARISON: 08/10/2024 FINDINGS: No acute pulmonary opacity is present. There is no evidence of effusion or pneumothorax. Mediastinum is unremarkable. Heart size is normal. IMPRESSION: No acute abnormality. Reviewed, Interpreted and Dictated by Lindy Graf MD Transcribed by Claudia Ross Authenticated and . [facility]
--- NOTE | 2024-08-17 14:45 | PC.NURSE ---
RADIOLOGY NOTIFIED OF STROKE PROTOCOL
--- NOTE | 2024-08-17 14:52 | ED_ITS ---
Discharge Plan Disposition Patient Disposition: Home, Self-Care Prescriptions Prescriptions: No Action clopidogrel [Plavix] 75 mg tablet 75 mg PO DAILY Qty: 90 3RF aspirin 81 mg tablet,delayed release (DR/EC) 81 mg PO DAILY Qty: 100 10RF cholecalciferol (vitamin D3) 25 mcg (1,000 unit) capsule 25 mcg PO DAILY nystatin 100,000 unit/mL suspension 4 ml PO QID 10 Days Qty: 160 1RF Rx Instructions: swish, gargle, and swallow (DME) nebulizers Misc See Rx Instructions .MEDSUPPLY Qty: 1 0RF Rx Instructions: As directed (DME) nebulizer accessories Kit See Rx Instructions .MEDSUPPLY Qty: 1 0RF Rx Instructions: As directed ipratropium-albuterol 0.5 mg-3 mg(2.5 mg base)/3 mL solution for nebulization 3 ml inhalation Q6H Qty: 360 2RF (DME) Contour Test Strips Strip See Rx Instructions .ROUTE .COMPLEX Qty: 50 2RF Dose Instruction: Use to check blood sugar as directed. Rx Instructions: Use to check blood sugar as directed. metformin 500 mg tablet extended release 24 hr 1,000 mg PO BID Qty: 60 2RF Patient Comments: TAKE 2 TABLETS BY MOUTH ONCE DAILY. glyburide 5 mg tablet 20 mg PO DAILY Patient Comments: TAKE 4 TABLETS BY MOUTH ONCE DAILY. metoprolol tartrate 100 mg tablet 100 mg PO BID Patient Comments: TAKE 1 TABLET BY MOUTH TWICE DAILY. trimethoprim 100 mg tablet 100 mg PO DAILY Patient Comments: TAKE 1 TABLET BY MOUTH ONCE DAILY. omeprazole 40 mg capsule,delayed release(DR/EC) 40 mg PO DAILY Patient Comments: TAKE 1 CAPSULE BY MOUTH ONCE DAILY. amlodipine-valsartan 10-320 mg tablet 1 tab PO DAILY Patient Comments: TAKE 1 TABLET BY MOUTH ONCE DAILY. rosuvastatin 5 mg tablet 5 mg PO HS albuterol sulfate [Ventolin HFA] 90 mcg/actuation Hfa Aerosol Inhaler 2 puff inhalation Q6RT 30 Days Qty: 8.5 0RF Activity Restrictions/Add. Instructions Additional Instructions/Restrictions: Follow-up with primary care doctor tomorrow as scheduled. Please return the emergency department with any new, concerning, worsening symptoms. Clinical Impressions Clinical Impression: Word finding difficulty Print Language Print Language: Albanian Discharge ED Provider: Pedrito Nava General Adult HPI <Charlotte Jung, DO - Last Filed: 08/17/24 15:11> General Chief complaint: Neuro Symptoms/Deficit Stated complaint: SLURRED SPEECH Time Seen by Provider: 08/17/24 14:44 Mode of Arrival: EMS Source of Information: Patient and EMS Limitations: No Limitations Description of Symptoms (Recalled from ER Triage Doc. by RN): pt family called ems for garbled speech early this morning at 0500, pt here recently for fall/ headbleed, off plavix and aging bruises noted to left cheek, per ems their stroke scale was negative, fbs was 216 upon triage and er md at bedside upon triage History of Present Illness HPI narrative: This patient is an 83-year-old female with a history of hypertension, type 2 diabetes, CAD and carotid artery stenosis previously on aspirin and Plavix, hyperlipidemia, and recent traumatic subarachnoid hemorrhage presenting to the emergency department for evaluation with concern for garbled speech. According to the patient, she had gone to bed early last night, woke up around midnight and was her normal usual self. She states that she stayed awake, and her speech became garbled around 5:00 this morning., So she yelled and woke her daughter up she states she felt she couldn't find her words. Daughter notes she was saying turn the hot up instead of turn the heat up and dag instead of dog. The symptoms lasted about 15 minutes and then spontaneously resolved. She did not have any other issues, so daughter thought maybe it was just a fluke. They went on about 3 days, and then around 12:30 PM the patient's daughter was downstairs when she heard her mom yelling for her again. She noted that she again had garbled speech and was complaining of visual disturbance, though she could not further characterize this. Daughter states that she tried to do the FAST stroke assessment on her, and she thought maybe she noticed some facial droop, so she called EMS. By the time EMS got there, symptoms had resolved again. Her daughter reports that the patient has been experiencing a lot of anxiety whenever she is left alone, so she is not sure if this could be related. Daughter also reports that she is not been eating or drinking very much. Otherwise, nothing out of the ordinary recently. Upon arrival, patient states that she feels like her vision is off but she cannot describe it. She states it feels off in both eyes. She also notes that she just feels funny and has a headache in the top of her head. She has not had any recent falls or injuries. She was evaluated here 08/10/2024 for fall and found to have subarachnoid hemorrhage. She was previously on aspirin and Plavix, but she has been holding these with plans to restart them 08/24. On 08/10, the patient was transferred to [facility]. On medical record review of their records, she was discharged after a day in observation. She had experienced some paranoia and anxiety while in the hospital, but she was found to be neurologically intact that she was deemed to be appropriate for discharge with follow-up in trauma clinic. Related Data Home Medications ?Medication ?Instructions ?Recorded ?Confirmed cholecalciferol (vitamin D3) 25 25 mcg PO DAILY 04/09/22 08/08/24 mcg (1,000 unit) capsule amlodipine 10 mg-valsartan 320 mg 1 tab PO DAILY 07/29/24 08/08/24 tablet glyburide 5 mg tablet 20 mg PO DAILY 07/29/24 08/08/24 metoprolol tartrate 100 mg tablet 100 mg PO BID 07/29/24 08/08/24 omeprazole 40 mg capsule,delayed 40 mg PO DAILY 07/29/24 08/08/24 release rosuvastatin 5 mg tablet 5 mg PO HS 07/29/24 08/08/24 trimethoprim 100 mg tablet 100 mg PO DAILY 07/29/24 08/08/24 Previous Rx's ?Medication ?Instructions ?Recorded blood sugar diagnostic (Contour #50 strips 11/26/22 Test Strips) aspirin 81 mg tablet,delayed 81 mg PO DAILY #100 tabs 07/06/24 release clopidogrel 75 mg tablet (Plavix) 75 mg PO DAILY #90 tabs 07/06/24 albuterol sulfate 90 mcg/actuation 2 puff inhalation Q6RT 30 days 07/31/24 aerosol inhaler (Ventolin HFA) #8.5 grams ipratropium 0.5 mg-albuterol 3 mg 3 ml inhalation Q6H #360 mL 08/08/24 (2.5 mg base)/3 mL nebulization soln nebulizer accessories #1 ea 08/08/24 nebulizers #1 ea 08/08/24 nystatin 100,000 unit/mL oral 4 ml PO QID 10 days #160 mL 08/08/24 suspension metformin 500 mg tablet,extended 1,000 mg (2 x 500 mg) PO BID #60 08/12/24 release 24 hr tabs Allergies Allergy/AdvReac Type Severity Reaction Status Date / Time Penicillins Allergy Severe swelling Verified 08/08/24 14:07 doxycycline Allergy Mild Verified 08/08/24 14:07 brompheniramine AdvReac Verified 08/08/24 14:07 bupivacaine (From Marcaine) AdvReac Verified 08/08/24 14:07 cephalexin (From Keflex) AdvReac Verified 08/08/24 14:07 clarithromycin AdvReac Verified 08/08/24 14:07 fluvastatin (From Lescol) AdvReac Verified 08/08/24 14:07 hydrochlorothiazide AdvReac Verified 08/08/24 14:07 lovastatin (From Altocor) AdvReac Verified 08/08/24 14:07 moxifloxacin (From Avelox) AdvReac Verified 08/08/24 14:07 nitrofurantoin (From AdvReac Verified 08/08/24 14:07 Macrobid) triamcinolone (From Kenalog) AdvReac Verified 08/08/24 14:07 PFSH <Charlotte Jung DO - Last Filed: 08/17/24 15:11> PFS Disclaimer: The information contained in this section may have been updated after the patient was seen, as this information can be updated by other users. Medical History Encounter for immunization Thyroid nodule Visual hallucination Right-sided headache Coronary artery calcification seen on CT scan Pulmonary nodule Vitamin D deficiency Type 2 diabetes mellitus without complications Hyperlipidemia Diabetes mellitus HTN (hypertension) Degenerative joint disease (DJD) of lumbar spine Surgical History H/O removal of cyst History of cholecystectomy Hx of cataract surgery Family History Mother Coronary artery disease Grandmother Stroke Brother Heart attack Social History Smoking Status: Never smoker alcohol intake: never current occupational status: other Travel in the last 8 weeks: None household members: other housing: house Have you lived/traveled outside US in past 30 days?: No Contact w/someone who lives/traveled outside US past 30 days?: No Exposure to someone with infectious disease in past 14 days?: No Do you have a fever (greater than 100.4 F or 38 C)?: No Have you tested positive for COVID-19: No Exposed to someone with COVID-19 in past 14 days?: No Do you have a sore throat?: No Do you have a cough?: No Do you have any weakness?: No Do you have any diarrhea?: No Are you experiencing any unusual bleeding?: No Do you have any muscle aches/pain?: No Do you have any abdominal pain?: No Are you experiencing loss of taste or smell?: No Other Medical History Have you received the Flu Vaccine for this season: No Have you received the Pneumonia Vaccine: Yes <Charlotte Jung DO - Last Filed: 08/17/24 15:11> ROS Obtained: Yes All systems reviewed & no additional complaints except as documented Physical Exam <Charlotte Jung DO - Last Filed: 08/17/24 15:11> General General appearance: alert and in no apparent distress Head Head exam: normocephalic and other (old bruising L face) Eye Eye exam: Present normal appearance, PERRL and EOMI ENT ENT exam: Present normal exam, normal oropharynx, mucous membranes moist and normal external ear exam Neck Neck exam: Present normal inspection, full ROM and trachea midline; Absent tenderness Chest Chest inspection: Present normal inspection and symmetric chest wall rise; Absent tenderness Respiratory Respiratory exam: Present normal lung sounds bilaterally; Absent respiratory distress, wheezes, stridor or accessory muscle use Cardiovascular Cardiovascular exam: Present regular rate and normal rhythm Abdominal Exam Abdominal exam: Present soft; Absent distention, tenderness or guarding Extremities Exam Extremities exam: Present normal inspection, full ROM and normal capillary refill; Absent tenderness or edema Back Exam Back exam: Present normal inspection and full ROM; Absent tenderness Neurological Exam Neurological exam: Present alert, oriented X3, CN II-XII intact and normal gait; Absent motor sensory deficit Psychiatric Psychiatric exam: Present normal affect and normal mood Skin Skin exam: Present warm and dry Medical Decision Making <Chralotte N Jung, DO - Last Filed: 08/17/24 15:11> Medical Records Medical records reviewed: Yes I reviewed the patient's medical records. Screening: Per USPSTF and CDC recommendations, given the prevalence of disease in our region, it is our hospital?s policy to screen for HIV and viral Hepatitis for all patients aged 18 and over and those with ongoing risk factors. Cristhian Inquiry Pt receiving controlled substance: No Vital Signs: 08/17/24 14:39 08/17/24 16:00 08/17/24 16:31 Temperature 98.5 F Temperature Source Oral Pulse Rate 60 60 Pulse Rate [Left Radial] 74 Respiratory Rate 20 21 18 Blood Pressure 136/42 L 157/45 H Blood Pressure [Right Arm] 164/82 H Blood Pressure Mean [Right Arm] 109 02 Sat by Pulse Oximetry 95 94 L 94 L Oxygen Delivery Method Room Air 08/17/24 17:02 Temperature 98.5 F Temperature Source Pulse Rate 59 L Pulse Rate [Left Radial] Respiratory Rate 18 Blood Pressure 157/45 H Blood Pressure [Right Arm] Blood Pressure Mean [Right Arm] 02 Sat by Pulse Oximetry Oxygen Delivery Method Room Air Lab Data Lab results reviewed: Yes I reviewed the patient's lab results. Lab Results 08/17/24 14:41: WBC 9.1, RBC 4.59, Hgb 13.6, Hct 41.0, MCV 89.3, MCH 29.6, MCHC 33.2, RDW 12.6, Plt Count 301, MPV 9.3, Neut % (Auto) 68.2, Lymph % (Auto) 21.7, [place] % (Auto) 7.6, Eos % (Auto) 1.7, Baso % (Auto) 0.6, Neut # (Auto) 6.2, Lymph # (Auto) 2.0, [place] # (Auto) 0.7, Eos # (Auto) 0.2, Baso # (Auto) 0.1, PT 10.5, INR 0.93, APTT 24.4, Sodium 140, Potassium 3.8, Chloride 105, Carbon Dioxide 29, Anion Gap 9.8, BUN 18 H, Creatinine 0.70, Estimated Creat Clear 56, Estimated GFR 80, Est GFR ( Amer) 97, Glucose 215 H, Calcium 9.2, Total Bilirubin 0.5, AST 30, ALT 20, Alkaline Phosphatase 83, Troponin I < 0.01, Total Protein 6.5, Albumin 3.8, Globulin 2.7, Albumin/Globulin Ratio 1.4 08/17/24 15:10: SARS-CoV-2 (PCR) Not detected, Influenza A Untype (PCR) Not detected, Influenza Type B (PCR) Not detected 08/17/24 14:41 08/17/24 14:41 Orders (Tests/Meds): ED MEDICATIONS Discontinued Medications Generic Name Dose Route Start Last Admin Trade Name Freq PRN Reason Stop Dose Admin Iopamidol 80 ml 08/17/24 14:57 08/17/24 14:58 Iopamidol-370 (76%);100ml Bottle IV 08/17/24 14:58 80 ml ONCE ONE Administration Sodium Chloride 10 ml 08/17/24 14:57 08/17/24 15:09 Sodium Chloride 0.9% 10ml Syr (Rad Only) IV 09/16/24 14:56 10 ml NEEDED PRN Administration Maintain IV Site Sodium Chloride 50 ml 08/17/24 14:57 08/17/24 14:58 0.9 % Sodium Chloride 50 Ml Vial IV 08/17/24 14:58 50 ml ONCE ONE Administration ORDERS Category Date Time Status CT angio head Stat Cat Scan 08/17/24 14:[address] angio neck Stat Cat Scan 08/17/24 14:[address] head/brain wo con Stat Cat Scan 08/17/24 14:44 Completed CXR --portable [XR chest portable] Stat Exams 08/17/24 14:45 Completed Complete Blood Count Auto Diff Stat Lab 08/17/24 14:41 Completed Comprehensive Metabolic Panel Stat Lab 08/17/24 14:41 Completed PT INR [Prothrombin Time INR] Stat Lab 08/17/24 14:41 Completed PTT [Activated Partial Thrombo Time] Stat Lab 08/17/24 14:41 Completed Rapid PCR Covid and Flu A/B Stat Lab 08/17/24 15:10 Completed Trop I [Troponin I] Stat Lab 08/17/24 14:41 Completed ECG Data Tracing #1: I reviewed this ECG and interpreted as documented below: Normal sinus rhythm with no acute ST changes concerning for ischemia. Some motion artifact. Normal axis and intervals. ECG initial impression date: 08/17/24 ECG initial impression time: 14:45 Medical Decision Narrative: In summary, this patient is a 83-year-old female presenting to the Emergency Department for evaluation of speech difficulty and visual disturbance that have been intermittent today but now resolved. Differential diagnoses considered include but are not limited to TIA, CVA, intracranial hemorrhage, effects of TBI, anxiety. Ruling out the most morbid conditions drove assessment. It should be noted patient's history includes CAD, carotid stenosis, hypertension, hyperlipidemia, diabetes which may or may not be at goal therapy. This complicates all aspects of care by increasing patient's risk for morbidity. I reviewed patient's past medical records and noted patient evaluation for traumatic subarachnoid hemorrhage, transfer to , and subsequent observation at as detailed in HPI. On exam, the patient is alert and oriented and neurologically intact without focal neurologic deficits. She has no altered speech on my assessment and NIH stroke scale of 0. Visual see are intact. Workup included stroke CT scans as well as lab evaluation to evaluate for infectious, metabolic, cardiac causes of her symptoms. EKG was obtained and is reassuring. Even if the patient were still having neurologic symptoms, she unfortunately is not a candidate for tPA/TNK, as she has recent intracranial hemorrhage within the last week. Ultimately, patient care was signed out to the oncoming provider, Dr. Nava, at 3pm pending workup. <Pedrito Nava MD - Last Filed: 08/17/24 21:20> Vital Signs: 08/17/24 14:39 08/17/24 16:00 08/17/24 16:31 Temperature 98.5 F Temperature Source Oral Pulse Rate 60 60 Pulse Rate [Left Radial] 74 Respiratory Rate 20 21 18 Blood Pressure 136/42 L 157/45 H Blood Pressure [Right Arm] 164/82 H Blood Pressure Mean [Right Arm] 109 02 Sat by Pulse Oximetry 95 94 L 94 L Oxygen Delivery Method Room Air 08/17/24 17:02 Temperature 98.5 F Temperature Source Pulse Rate 59 L Pulse Rate [Left Radial] Respiratory Rate 18 Blood Pressure 157/45 H Blood Pressure [Right Arm] Blood Pressure Mean [Right Arm] 02 Sat by Pulse Oximetry Oxygen Delivery Method Room Air Lab Data Lab Results 08/17/24 14:41: WBC 9.1, RBC 4.59, Hgb 13.6, Hct 41.0, MCV 89.3, MCH 29.6, MCHC 33.2, RDW 12.6, Plt Count 301, MPV 9.3, Neut % (Auto) 68.2, Lymph % (Auto) 21.7, [place] % (Auto) 7.6, Eos % (Auto) 1.7, Baso % (Auto) 0.6, Neut # (Auto) 6.2, Lymph # (Auto) 2.0, [place] # (Auto) 0.7, Eos # (Auto) 0.2, Baso # (Auto) 0.1, PT 10.5, INR 0.93, APTT 24.4, Sodium 140, Potassium 3.8, Chloride 105, Carbon Dioxide 29, Anion Gap 9.8, BUN 18 H, Creatinine 0.70, Estimated Creat Clear 56, Estimated GFR 80, Est GFR ( Amer) 97, Glucose 215 H, Calcium 9.2, Total Bilirubin 0.5, AST 30, ALT 20, Alkaline Phosphatase 83, Troponin I < 0.01, Total Protein 6.5, Albumin 3.8, Globulin 2.7, Albumin/Globulin Ratio 1.4 08/17/24 15:10: SARS-CoV-2 (PCR) Not detected, Influenza A Untype (PCR) Not detected, Influenza Type B (PCR) Not detected Orders (Tests/Meds): ED MEDICATIONS Discontinued Medications Generic Name Dose Route Start Last Admin Trade Name Freq PRN Reason Stop Dose Admin Iopamidol 80 ml 08/17/24 14:57 08/17/24 14:58 Iopamidol-370 (76%);100ml Bottle IV 08/17/24 14:58 80 ml ONCE ONE Administration Sodium Chloride 10 ml 08/17/24 14:57 08/17/24 15:09 Sodium Chloride 0.9% 10ml Syr (Rad Only) IV 09/16/24 14:56 10 ml NEEDED PRN Administration Maintain IV Site Sodium Chloride 50 ml 08/17/24 14:57 08/17/24 14:58 0.9 % Sodium Chloride 50 Ml Vial IV 08/17/24 14:58 50 ml ONCE ONE Administration ORDERS Category Date Time Status CT angio head Stat Cat Scan 08/17/24 14:[address] angio neck Stat Cat Scan 08/17/24 14:[address] head/brain wo con Stat Cat Scan 08/17/24 14:44 Completed CXR --portable [XR chest portable] Stat Exams 08/17/24 14:45 Completed Complete Blood Count Auto Diff Stat Lab 08/17/24 14:41 Completed Comprehensive Metabolic Panel Stat Lab 08/17/24 14:41 Completed PT INR [Prothrombin Time INR] Stat Lab 08/17/24 14:41 Completed PTT [Activated Partial Thrombo Time] Stat Lab 08/17/24 14:41 Completed Rapid PCR Covid and Flu A/B Stat Lab 08/17/24 15:10 Completed Trop I [Troponin I] Stat Lab 08/17/24 14:41 Completed Medical Decision Narrative: In summary, this patient is a 83-year-old female presenting to the Emergency Department for evaluation of speech difficulty and visual disturbance that have been intermittent today but now resolved. Differential diagnoses considered include but are not limited to TIA, CVA, intracranial hemorrhage, effects of TBI, anxiety. Ruling out the most morbid conditions drove assessment. It should be noted patient's history includes CAD, carotid stenosis, hypertension, hyperlipidemia, diabetes which may or may not be at goal therapy. This complicates all aspects of care by increasing patient's risk for morbidity. I reviewed patient's past medical records and noted patient evaluation for traumatic subarachnoid hemorrhage, transfer to , and subsequent observation at as detailed in HPI. On exam, the patient is alert and oriented and neurologically intact without focal neurologic deficits. She has no altered speech on my assessment and NIH stroke scale of 0. Visual see are intact. Workup included stroke CT scans as well as lab evaluation to evaluate for infectious, metabolic, cardiac causes of her symptoms. EKG was obtained and is reassuring. Even if the patient were still having neurologic symptoms, she unfortunately is not a candidate for tPA/TNK, as she has recent intracranial hemorrhage within the last week. Ultimately, patient care was signed out to the oncoming provider, Dr. Nava, at 3pm pending workup. MD Elijah: I assumed care of this patient at approximately 3 PM. Patient was asymptomatic upon my assumption of care. Independently interpreted her CT head without IV contrast revealing of no acute intracranial pathology. CTAs revealed known carotid stenosis. On reevaluation, the patient remained asymptomatic. Normal neurological exam. Urinalysis was pending, however patient was reported to already be taking prophylactic antibiotics for UTI and was currently asymptomatic. Denied any dysuria or lower abdominal pain. Had a follow-up appointment with PCP tomorrow. Was appropriate for discharge at this time. Critical Care <Charlotte N Jung, DO - Last Filed: 08/17/24 15:11> Critical Care Time Critical Care Time: No
--- NOTE | 2024-08-17 14:52 | PC.NURSE ---
PT TO CT
[2024-08-17 14:53] LABS: White Blood Count 9.1 K/mm3 (4.8-10.8)
[2024-08-17 14:54] LABS: Basophils # 0.1 K/mm3 (0-0.2); Basophils % 0.6 % (0.1-2.0); Eosinophils # 0.2 K/mm3 (0.0-0.4); Eosinophils % 1.7 % (0.1-12.0); Hemoglobin 13.6 g/dL (12.2-16.2); Lymphocytes % 21.7 % (10-50); Mean Corpuscular HGB Conc 33.2 g/dL (31.8-35.4); Mean Corpuscular Hemoglobin 29.6 pg (27.0-31.2); Mean Corpuscular Volume 89.3 fl (81-99); Mean Platelet Volume 9.3 fl (7.4-10.4); Monocytes # 0.7 K/mm3 (0.1-1.0); Monocytes % 7.6 % (1.7-9.3); Neutrophils # 6.2 K/mm3 (1.8-7.8); Neutrophils % 68.2 % (37.0-80.0); Platelet Count 301 K/mm3 (142-424); Red Blood Count 4.59 M/mm3 (4.20-5.40); Red Cell Distribution Width 12.6 % (11.5-17.5)
[2024-08-17 14:58] LABS: Alanine Aminotransferase 20 U/L (12-78); Albumin Level 3.8 g/dl (3.5-5.0); Albumin/Globulin Ratio 1.4 (1.1-1.8); Alkaline Phosphatase 83 U/L (38-126); Anion Gap 9.8 mEq/L (5-15); Aspartate Amino Transferase 30 U/L (14-36); Bilirubin,Total 0.5 mg/dl (0.2-1.3); Blood Urea Nitrogen 18 mg/dl (7-17); Calcium 9.2 mg/dl (8.4-10.2); Carbon Dioxide 29 mmol/L (22.0-30.0); Chloride 105 mmol/L (98-107); Creatinine Clearance Estimated 56 mL/min (50-200); Estimated Glomerular Filt Rate 80 ml/min (>60); GFR (African American) 97 ML/MIN (>60); Globulin 2.7 g/dL (1.3-3.2); Glucose 215 mg/dl (74-100); Potassium 3.8 mmoL/L (3.5-5.1); Sodium 140 mmol/L (136-145); Total Protein,Serum 6.5 g/dl (6.3-8.2)
[2024-08-17] MEDS: 0.9 % SODIUM CHLORIDE 50 ML VIAL IV (14:58)
[2024-08-17] MEDS: IOPAMIDOL-370 (76%);100ML BOTTLE 80 ML IV (14:58)
[2024-08-17 15:06] LABS: Activated Partial Thrombo Time 24.4 seconds (22.8-30.6); INR 0.93 (0.9-1.1); Prothrombin Time 10.5 seconds (10.1-12.5)
[2024-08-17] MEDS: SODIUM CHLORIDE 0.9% 10ML SYR (RAD ONLY) 10 ML IV (15:09)
[2024-08-17 15:10] LABS: Troponin I < 0.01 ng/ml (0.00-0.034)
[2024-08-17 15:17] LABS: Coronavirus 19, PCR Not Detected (NotDetected); Influenza A, PCR Not Detected (NotDetected); Influenza B, PCR Not Detected (NotDetected)
[2024-08-17 16:00] VITALS: BP 136/42; PULSE 60; RESP 21; O2SAT 94
[2024-08-17 16:31] VITALS: BP 157/45; PULSE 60; RESP 18; O2SAT 94
--- NOTE | 2024-08-17 16:42 | PC.NURSE ---
DR CRUZ AT BEDSIDE
[2024-08-17 17:02] VITALS: BP 157/45; PULSE 59; RESP 18; TEMP 36.9; O2SAT 94
== END 2024-08-17 17:02 | disposition home or self-care (01) ==
PROVIDERS: Emergency Medicine; Emergency Provider Student in an Organized Health Care Education/Training Program; PCP Nurse Practitioner
DX: R47.81 Slurred speech (principal); H53.9 Unspecified visual disturbance; R29.810 Facial weakness; R51.9 Headache, unspecified
CPT/HCPCS: 70450; 70496; 70498; 71045; 80053; 84484; 85025; 85610; 85730; 87636; 93005; 99285; Q9967

== ENCOUNTER 2024-10-03 10:10 | Outpatient (CLI) | payer MEDICARE, MEDICAID, SELFPAY ==
[2024-10-03 20:13] LABS: Hemoglobin A1C 6.3 % (4.0-6.0)
[2024-10-03 20:51] LABS: Alanine Aminotransferase 19 U/L (12-78); Albumin Level 4.8 g/dl (3.5-5.0); Alkaline Phosphatase 79 U/L (38-126); Anion Gap 14.4 mEq/L (5-15); Aspartate Amino Transferase 30 U/L (14-36); Bilirubin,Total 0.4 mg/dl (0.2-1.3); Blood Urea Nitrogen 16 mg/dl (7-17); Calcium 9.8 mg/dl (8.4-10.2); Carbon Dioxide 29 mmol/L (22.0-30.0); Chloride 102 mmol/L (98-107); Chol/HDL Ratio 2.6 (1-3.5); Cholesterol 133 mg/dl (140-200); Estimated Glomerular Filt Rate 95 ml/min (>60); GFR (African American) 116 ML/MIN (>60); Globulin 2.4 g/dL (1.3-3.2); Glucose 125 mg/dl (74-100); HDL Cholesterol 51 mg/dl (40-60); Potassium 4.4 mmoL/L (3.5-5.1); Sodium 141 mmol/L (136-145); Total Protein,Serum 7.2 g/dl (6.3-8.2); Triglycerides 72 mg/dl (30-150); VLDL Cholesterol 14 mg/dL (0-40)
[2024-10-03 21:18] LABS: Creatinine,Urine Random 79 mg/dL (Not Estab.); Microalbumin/Creatinine Ratio 268.8
[2024-10-03 21:57] LABS: Vitamin B12 513 pg/mL (239-931)
== END 2024-10-03 23:59 | disposition home or self-care (01) ==
LOC: LAB.DROPOF 10-04 09:42
PROVIDERS: PCP Nurse Practitioner; Visit Provider Nurse Practitioner
DX: E78.5 Hyperlipidemia, unspecified (principal); I10 Essential (primary) hypertension; E11.9 Type 2 diabetes mellitus without complications; Z79.84 Long term (current) use of oral hypoglycemic drugs; E04.1 Nontoxic single thyroid nodule
CPT/HCPCS: 80053; 80061; 82043; 82570; 82607; 83036; 84443

== ENCOUNTER 2025-04-03 07:50 | Outpatient (CLI) | payer MEDICARE, MEDICAID, SELFPAY ==
[2025-04-03 16:18] LABS: Hemoglobin A1C 6.3 % (4.0-6.0)
[2025-04-03 16:31] LABS: Alanine Aminotransferase 15 U/L (12-78); Albumin Level 4.4 g/dl (3.5-5.0); Albumin/Globulin Ratio 1.7 (1.1-1.8); Alkaline Phosphatase 84 U/L (38-126); Anion Gap 9.8 mEq/L (5-15); Aspartate Amino Transferase 26 U/L (14-36); Bilirubin,Total 0.5 mg/dl (0.2-1.3); Blood Urea Nitrogen 13 mg/dl (7-17); Calcium 9.9 mg/dl (8.4-10.2); Carbon Dioxide 30 mmol/L (22.0-30.0); Chloride 103 mmol/L (98-107); Cholesterol 133 mg/dl (140-200); Creatinine,Serum 0.70 mg/dl (0.52-1.04); Estimated Glomerular Filt Rate 80 ml/min (>60); GFR (African American) 96 ML/MIN (>60); Globulin 2.6 g/dL (1.3-3.2); Glucose 135 mg/dl (74-100); HDL Cholesterol 58 mg/dl (40-60); Potassium 3.8 mmoL/L (3.5-5.1); Sodium 139 mmol/L (136-145); Total Protein,Serum 7.0 g/dl (6.3-8.2); Triglycerides 75 mg/dl (30-150)
[2025-04-03 18:02] LABS: 25-OH Vitamin D, Total 28.3 ng/mL (30-100)
--- OUTSIDE RECORDS SUMMARY | 2025-04-05 07:53 | XMS_ITS | Encounter Summary ---
Author Organization [facility] Address [address] [id number] Care Team Providers Care Vp Name Role Phone Pcp, No Primary Care Provider Unavailabl e Reason for Referral * Consultation (Urgent) - Authorized Specialty Diagnoses / Procedures Referred By Contact Referred To Contact Vascular Surgery / [facility] Diagnoses Stenosis of carotid artery, unspecified laterality Prasad León MD [facility] [place] [address] Phone: tel:[phone] fax:[phone] [facility] [address] [facility] [address] [place] [address] Phone: tel: fax: Referral ID Status Reason Start Date Expiration Date Visits Requested Visits Authorized [id number] Authorized Specialty Services Required 05/17/2024 11/16/2025 1 1 Encounter Details Date Type Department Care Team (Late st Contact Info) Description 05/17/2024 Community Orders Community Practice [address] [place] [address] Prasad León MD [address] [place] [address] Stenosis of carotid artery, unspecified laterality (Primary [...] unspecified laterality- Primary documented in this encounter Care Teams Vp Relationship Specialty Start Date End Date Pcp, [place] [address] [place] [address] PCP - General Family Medicine 08/10/24 documented as of this encounter
--- OUTSIDE RECORDS SUMMARY | 2025-04-05 07:53 | XMS_ITS | Encounter Summary ---
Author Organization Healthcare Address [address] [place] [address] Care Team Providers Care Stove Fitter Name Role Phone Pcp, No Primary Care Provider Unavailabl e Encounter Details Date Type Department Care Team (Late st Contact Info) Description 05/12/2024 Orders Only External Location [address] [place] [address] Charlotte Jung, [address] [place] [address] Social History Tobacco Use Types [...] Jung DO IMG CT PROCEDURES Final Result documented in this encounter Visit Diagnoses Not on filedocumented in this encounter Care Teams Stove Fitter Relationship Specialty Start Date End Date Pcp, No [address] [place] [address] PCP - General Family Medicine 08/10/24 documented as of this encounter
--- OUTSIDE RECORDS SUMMARY | 2025-04-05 07:53 | XMS_ITS | Clinical Summary ---
Author Organization [facility] Address [address] [place] [address] Phone Care Team Providers Care Cap Inspector Name Role Phone Unavailable Primary Care Provider [...] Date Last Done Comments Wellness Exam Medicare 11/22/1943 DTaP/TDaP/Td (1 - Tdap) 11/22/1959 Pneumococcal Vaccine 50+ (1 of 1 - PCV) 1990 Zoster (1 of 2) 1990 Bone Density Screening 2005 RSV or 60+ (1 - 1-d ose 75+ series) 11/22/2015 COVID-19 Vaccine ( - 2023-2 5 season) 2024 Influenza Vaccine (#1) 2025 Hepatitis B Vaccine Aged Out No longe r eligible based on patient's age to complete this topic Meningococcal B Vaccine Aged Out No l onger eligible based on patient's age to complete [place] [address] [place] [address] [place]
--- OUTSIDE RECORDS SUMMARY | 2025-04-05 07:53 | XMS_ITS | Encounter Summary ---
Author Organization Healthcare Address [address] [place] [address] Care Team Providers Care Content Producer Name Role Phone Pcp, No Primary Care Provider Unavailabl e Encounter Details Date Type Department Care Team (Late st Contact Info) Description 05/12/2024 Orders Only External Location [address] [place] [address] Charlotte Jung, [address] [place] [address] Social History Tobacco Use Types [...] on filedocumented in this encounter Care Teams Content Producer Relationship Specialty Start Date End Date Pcp, No [address] [place] [address] PCP - General Family Medicine 08/10/24 documented as of this encounter
--- OUTSIDE RECORDS SUMMARY | 2025-04-05 07:53 | XMS_ITS | Clinical Summary ---
Author Organization [facility] Address 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 Active metoprolol tartrate (Lopressor) 100 MG tablet Take 1 tablet (100 mg) by mouth 2 (two) times a day. Active omeprazole (PriLOSEC) [address] capsule Take 1 capsule (40 mg) by mouth 1 (one) time each day. Do not crush or chew. Active amLODIPine-vals alisha (Exforge) 10-320 MG tablet Take 1 tablet by mouth 1 (one) time each day. Active glyBURIDE (Diabeta) 5 MG tablet Take 4 tablets (20 mg) by mouth 1 (one) time each day with breakfast. Active trimethoprim (Trimpex) 100 MG tablet Take 1 tablet (100 mg) by mouth 1 (one) time each day. Active metFORMIN XR (Glucophage-XR) 500 MG 24 hr tablet Take by mouth 1 (one) time each day with dinner. Do not crush, chew, or split. Active ipratropium-alb uterol (Duo-Neb) 0.5-2.5 mg/3 mL nebulizer solution Take 3 mL by nebulization every 6 (six) hours if needed for wheezing. Active albuterol 108 (90 Base) MCG/ACT inhaler Inhale 2 puffs 4 (four) times a day if needed for wheezing. Active Fluticasone-Ume clidin-Vilant (Trelegy Ellipta) 100-62.5-25 MCG/ACT aerosol powder Inhale 1 puff 1 (one) time each day. Active nystatin (Mycostatin) 770665 UNIT/ML suspension Take 5 mL (500,000 Units) by mouth 4 (four) times a day. Swish - Gargle and Swallow Active acetaminophen (Tylenol) 500 MG tablet Take 2 tablets (1,000 mg) by mouth every 6 (six) hours. 100 tablet Active Active Problems Problem Noted Date Diagnosed Date Bilateral carotid artery stenosis 08/11/2024 Overview (08/11/2024): On ASA and Plavix, recommend holding for 2 weeks (until 08/25) Hypertension 08/11/2024 Overview (08/11/2024): Restart home meds when appropriate and verified Confusion with non-focal neuro exam 08/11/2024 Overview (08/11/2024): Suspect somewhat related to delirium vs concussive symptoms Recommend follow up with PCP in at least 1 month to assess Patient reports past issues with memory and confusion, prior to this admission Fall 08/11/2024 Overview (08/11/2024): Mechanical fall from standing Tertiary exam 08/11 Subdural hematoma 08/11/2024 Overview (08/11/2024): DDAVP to reverse ASA and Plavix Stable on repeat imaging NSG consulted, signed off after reviewing imaging Hold AC/AP x 2 weeks No neurological deficits SAH (subarachnoid hemorrhage) 08/10/2024 Overview (08/11/2024): DDAVP to reverse ASA and Plavix Stable on repeat imaging NSG consulted, signed off after reviewing imaging Hold AC/AP x 2 weeks No neurological deficits Social History Tobacco Use Types Packs/Day Years Used Date Smoking Tobacco: Never Assessed Comments Unknown Sex and Gender Information Value Date Recorded Sex Assigned at Not on file Legal Sex Female 12:54 PM EDT Gender Identity Not on file Sexual Orientation Not on file Last Filed Vital Signs Vital Sign Reading Time Taken Comments Blood Pressure 155/56 08/11/2024 12:14 PM EST Pulse 84 08/11/2024 12:14 PM EST Temperature 36.8 C (98.2 F) 08/11/2024 12:14 PM EST Respiratory Rate 24 08/11/2024 12:1 4 PM EST Oxygen Saturation 92% 08/11/2024 12: 14 PM EST Inhaled Oxygen Concentration - - Weight 68.9 kg (151 lb 14.4 oz) 08/10/2024 6:47 PM EST Height 157.5 cm (5' 2 ) 08/11/2024 10:2 8 AM EST Body Mass Index 27.78 08/10/2024 6:47 PM EST Plan of Treatment Health Maintenance Due Date Last Done Comments [facility]-Bone Density Scan 1940 [facility]-Depression Screening 1940 [facility]-Medicare Annual Wellness (AWV) 1940 [facility]-Infant/Child/Adol SDOH Screenings 1940 [facility]- SDOH Screenings 1958 [facility]-Adult SDOH Screenings 1958 [facility]-Zoster Vaccines (1 of 2) 1990 [facility]-DTaP,Tdap,and Td Vaccines (1 - Tdap) 11/04/1996 11/03/1996 [facility]-RSV Vaccine: 60+ Years or (1 - 1-dose 75+ series) 11/22/2015 [id number] Vaccine (1 - season) 2024 [facility]-Influenza Vaccine (#1) 05/01/202505/24, 05/10/2020, 05/25/2019, Additional history exists [facility]-Pneumococcal Vaccine: 50+ Years Completed 12/03/2022, 05/14/2016, 06/15/2013 [facility]-Obesity Intervention Completed 08/10/2024 HPV Vaccines Aged Out No longer eligi ble based on patient's age to complete this topic [facility]-HIB Vaccines Aged Out No longer e ligible based on patient's age to complete this topic [facility]-Hepatitis A Vaccines Aged Out No longer eligible based on patient's age to complete this topic [facility]-IPV Vaccines Aged Out No longer e ligible based on patient's age to complete this topic [facility]-Rotavirus Vaccines Aged Out No lo nger eligible based on patient's age to complete this topic Insurance [employer] MEDICARE [place] Advance Directives * Full Code (Latest Code Status on File) Date Activated Date Inactivated Comments 08/10/2024 10:16 PM 08/11/2024 3:51 PM Question Answer Comments Patient has decision-making capacity? 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
== END 2025-04-03 23:59 | disposition home or self-care (01) ==
LOC: LAB.DROPOF 04-05 07:51
PROVIDERS: PCP Nurse Practitioner; Visit Provider Nurse Practitioner
DX: E11.9 Type 2 diabetes mellitus without complications (principal); E78.5 Hyperlipidemia, unspecified; I10 Essential (primary) hypertension; E55.9 Vitamin D deficiency, unspecified
CPT/HCPCS: 80053; 80061; 82306; 83036

== ENCOUNTER 2025-05-24 15:16 | Inpatient (IN) | payer MEDICARE, MEDICAID, SELFPAY ==
[2025-05-24] VITALS (7 sets, daily range): BP systolic 144–199; BP diastolic 58–86; PULSE 71–80; RESP 16–20; TEMP 36.6–36.9; O2SAT 91–96; BMI 23.8; BMI 26.3
--- NOTE | 2025-05-24 15:21 | CT_ITS ---
PROCEDURE INFORMATION: Exam: CT Head Without Contrast Exam date and time: 05/24/2025 4:34 PM Age: 84 years old Clinical indication: Injury or trauma; Fall; Additional info: Fall, head trauma TECHNIQUE: Imaging protocol: Computed tomography of the head without contrast. Radiation optimization: All CT scans at this facility use at least one of these dose optimization techniques: automated exposure control; mA and/or kV adjustment per patient size (includes targeted exams where dose is matched to clinical indication); or iterative reconstruction. COMPARISON: CT ANGIO HEAD 08/17/2024 2:59 PM FINDINGS: Brain: There is moderate atrophy and extensive symmetric chronic white matter microangiopathic changes which could reflect chronic hypertension. There are symmetric hypodensities of the thalami present on the prior studies of 08/10/2024 and 08/17/2024. MRI follow-up may be helpful. Cerebral ventricles: There is compensatory ventricular dilation. Paranasal sinuses: Visualized sinuses are unremarkable. No fluid levels. Mastoid air cells: Visualized mastoid air cells are well aerated. Bones: Benign hyperostosis frontalis is present. There is moderate degenerative disease of the temporomandibular joints bilaterally. Soft tissues: Unremarkable. Vasculature: The vasculature demonstrates diffuse moderate atherosclerotic calcification. IMPRESSION: 1. There is moderate atrophy and extensive symmetric chronic white matter microangiopathic changes which could reflect chronic hypertension. 2. There are symmetric hypodensities of the thalami present on the prior studies of 08/10/2024 and 08/17/2024. MRI follow-up may be helpful. 3. No acute intracranial process is identified. 4. There is moderate degenerative disease of the temporomandibular joints bilaterally.
--- NOTE | 2025-05-24 15:21 | CT_ITS ---
PROCEDURE INFORMATION: Exam: CT Thoracic Spine Without Contrast Exam date and time: 05/24/2025 4:39 PM Age: 84 years old Clinical indication: Injury or trauma; Fall TECHNIQUE: Imaging protocol: Computed tomography of the thoracic spine without contrast. Radiation optimization: All CT scans at this facility use at least one of these dose optimization techniques: automated exposure control; mA and/or kV adjustment per patient size (includes targeted exams where dose is matched to clinical indication); or iterative reconstruction. COMPARISON: CT THORACIC SPINE WO CON 05/24/2025 4:39 PM FINDINGS: Bones/joints: Alignment is near anatomic. There is mild chronic loss of height of the superior endplate of T10 unchanged. The other vertebral body heights are maintained. Degenerative changes similar to previous. No acute appearing displaced fracture. Soft tissues: Soft tissues are unremarkable as visualized. Vasculature: Atherosclerosis of the vasculature. Tracheobronchial tree: Debris in the trachea. Lungs: Subpleural solid left lower lobe pulmonary nodule measures 4 mm on series 3, image 6 of comparison lumbar spine study. Thyroid: Left thyroid lobe coarse calcification. IMPRESSION: 1. No acute thoracic spinal fracture. 2. Subpleural solid left lower lobe pulmonary nodule measures 4 mm on series 3, image 6 of comparison lumbar spine study. For patients at low risk (minimal or absent history of smoking and of other known risk factors), no routine follow-up is indicated. For patients at high risk (history of smoking or of other known risk factors), consider optional CT Chest at 12 months. (Reference: Isaias) REFERENCES: Isaias Aldridge, et al. Guidelines for Management of Incidental Pulmonary Nodules Detected on CT Images: From the Fleischner Society 2017. Radiology. 2017;284(1):228-243.
--- NOTE | 2025-05-24 15:21 | CT_ITS ---
PROCEDURE INFORMATION: Exam: CT Lumbar Spine Without Contrast Exam date and time: 05/24/2025 4:42 PM Age: 84 years old Clinical indication: Injury or trauma; Fall TECHNIQUE: Imaging protocol: Computed tomography of the lumbar spine without contrast. Radiation optimization: All CT scans at this facility use at least one of these dose optimization techniques: automated exposure control; mA and/or kV adjustment per patient size (includes targeted exams where dose is matched to clinical indication); or iterative reconstruction. COMPARISON: CT LUMBAR SPINE WO CON 08/10/2024 2:37 PM FINDINGS: Bones/joints: There is minimal right convex scoliosis. The lumbar spine is straightened. Minimal retrolisthesis L4 on L5 unchanged. The vertebral body heights are maintained. There is no acute appearing displaced fracture present. Degenerative changes similar to previous. Adrenal glands: Left adrenal gland mass partially seen unchanged. 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 Soft tissues: Soft tissues are unremarkable as visualized. IMPRESSION: No acute lumbar spinal fracture.
--- NOTE | 2025-05-24 15:22 | XR_ITS ---
PROCEDURE INFORMATION: Exam: XR Chest Exam date and time: 05/24/2025 4:51 PM Age: 84 years old Clinical indication: Injury or trauma; Fall; Additional info: Trauma/fall TECHNIQUE: Imaging protocol: Radiologic exam of the chest. Views: 1 view. COMPARISON: CR XR CHEST PORTABLE 08/17/2024 2:56 PM FINDINGS: Airway: The trachea is midline. Lungs: No focal consolidation. Pleural spaces: No significant pleural effusion. No pneumothorax. Heart/Mediastinum: Visualized cardiomediastinal silhouette unremarkable. Vasculature: There is minimal tortuosity of the aorta. Bones/joints: No acute osseous abnormality. Soft tissues: Soft tissues are unremarkable as visualized. IMPRESSION: No acute findings.
--- NOTE | 2025-05-24 15:22 | CT_ITS ---
PROCEDURE INFORMATION: Exam: CT Cervical Spine Without Contrast Exam date and time: 05/24/2025 4:36 PM Age: 84 years old Clinical indication: Injury or trauma; Fall; Additional info: Trauma/fall TECHNIQUE: Imaging protocol: Computed tomography of the cervical spine without contrast. Radiation optimization: All CT scans at this facility use at least one of these dose optimization techniques: automated exposure control; mA and/or kV adjustment per patient size (includes targeted exams where dose is matched to clinical indication); or iterative reconstruction. COMPARISON: CT CERVICAL SPINE WO CON 08/10/2024 2:33 PM FINDINGS: Bones: A left convex spinal curvature is observed.There is a flattening of the normal lordosis, related to positioning or spasm. There is chronic fusion at C5-C6 and possibly developmental fusion at C4-C5. The spine demonstrates moderate degenerative changes greatest at C6-C7 possibly reflecting the rigidity of the spine above this level. There is bilateral foraminal compromise. There is no evidence of an acute fracture. There is moderate degenerative disease of the temporomandibular joints bilaterally. Lungs: The visualized portions of the lung apices are normal. Thyroid: The thyroid appears normal. Vasculature: The vasculature demonstrates diffuse moderate atherosclerotic calcification. Soft tissues: Unremarkable. IMPRESSION: 1. A left convex spinal curvature is observed.There is a flattening of the normal lordosis, related to positioning or spasm. 2. There is chronic fusion at C5-C6 and possibly developmental fusion at C4-C5. 3. The spine demonstrates moderate degenerative changes greatest at C6-C7 possibly reflecting the rigidity of the spine above this level. There is bilateral foraminal compromise. 4. There is no evidence of an acute fracture. 5. There is moderate degenerative disease of the temporomandibular joints bilaterally.
--- NOTE | 2025-05-24 15:23 | XR_ITS ---
PROCEDURE INFORMATION: Exam: XR Left Hip Exam date and time: 05/24/2025 4:51 PM Age: 84 years old Clinical indication: Injury or trauma; Fall; Additional info: Fall left hip pain TECHNIQUE: Imaging protocol: Radiologic exam of the left hip. Views: 2 or 3 views hip with pelvis when performed. COMPARISON: CT ABDOMEN PELVIS W CON 05/24/2025 4:48 PM FINDINGS: Bones/joints: There is a complete left femoral neck fracture with displacement. No dislocation of the left hip joint. No fracture in the visualized pelvis. Soft tissues: Soft tissues are unremarkable as visualized. Organs: There is contrast in the bladder and right renal collecting system/ureters from CT earlier same day. IMPRESSION: There is a complete left femoral neck fracture with displacement. No dislocation of the left hip joint.
--- NOTE | 2025-05-24 15:23 | XR_ITS ---
PROCEDURE INFORMATION: Exam: XR Left Femur Exam date and time: 05/24/2025 4:51 PM Age: 84 years old Clinical indication: Injury or trauma; Fall; Additional info: Fall with left leg pain TECHNIQUE: Imaging protocol: Radiologic exam of the left femur. Views: 2 views. COMPARISON: 1. CR XR FEMUR LT 2V 08/10/2024 2:35 PM 2. CR XR HIP LT 2-3V W/PELVIS 05/24/2025 4:51 PM FINDINGS: Bones/joints: Impacted left femoral neck fracture again seen. There is no fracture distally in the left femur. Soft tissues: Possible soft tissue swelling lateral to the left hip. IMPRESSION: Impacted left femoral neck fracture again seen. There is no fracture distally in the left femur.
--- NOTE | 2025-05-24 15:24 | CT_ITS ---
PROCEDURE INFORMATION: Exam: CT Pelvis Without Contrast, Skeleton Exam date and time: 05/24/2025 4:45 PM Age: 84 years old Clinical indication: Injury or trauma; Fall; Additional info: Fall left hip pain TECHNIQUE: Imaging protocol: Computed tomography of the pelvis without contrast. Exam focused on the skeleton. Radiation optimization: All CT scans at this facility use at least one of these dose optimization techniques: automated exposure control; mA and/or kV adjustment per patient size (includes targeted exams where dose is matched to clinical indication); or iterative reconstruction. COMPARISON: CR XR PELVIS 1-2V 08/10/2024 2:35 PM FINDINGS: Intestine: Colonic diverticuli Vasculature: Atherosclerosis of the vasculature. Bones/joints: There is a impacted complete left femoral neck fracture. There is mild displacement of the fracture. There is no dislocation of the left hip joint. Visualized pelvis intact. Soft tissues: Soft tissues are unremarkable as visualized. Small fat containing umbilical hernia. IMPRESSION: Impacted acute complete left femoral neck fracture with mild displacement.
--- NOTE | 2025-05-24 15:25 | ED_ITS ---
<Statement entered by Morena Hansen DO - 05/25/25 16:37> I was consulted by the ESTRELLA, and we discussed the complexity of problems being addressed. I approve the treatment and management plan for this patient's care in the emergency department, thus performing a substantial portion of the medical decision making. Morena Hansen DO Discharge Plan Disposition Patient Disposition: Admitted Condition: Fair Prescriptions Prescriptions: No Action clopidogrel [Plavix] 75 mg tablet 75 mg PO DAILY Qty: 90 3RF aspirin 81 mg tablet,delayed release (DR/EC) 81 mg PO DAILY Qty: 100 10RF (DME) nebulizers Misc See Rx Instructions .MEDSUPPLY Qty: 1 0RF Rx Instructions: As directed (DME) nebulizer accessories Kit See Rx Instructions .MEDSUPPLY Qty: 1 0RF Rx Instructions: As directed cholecalciferol (vitamin D3) 25 mcg (1,000 unit) capsule 25 mcg PO DAILY meclizine 25 mg tablet See Rx Instructions .ROUTE .COMPLEX PRN Dose Instruction: Take 1 tablet by mouth three times a day As Needed for dizziness Rx Instructions: Take 1 tablet by mouth three times a day As Needed for dizziness PRN; (DME) OneTouch Verio test strips Strip See Rx Instructions .Route Qty: 50 11RF Rx Instructions: As directed citalopram 10 mg tablet 5 mg PO BID Qty: 30 5RF betamethasone dipropionate 0.05 % cream 1 applic topical BID PRN (Reason: skin irritation) Qty: 15 2RF metoprolol tartrate 100 mg tablet 100 mg PO BID Qty: 60 3RF Patient Comments: TAKE 1 TABLET BY MOUTH TWICE DAILY. amlodipine-valsartan 10-320 mg tablet 1 tab PO DAILY Qty: 90 1RF Patient Comments: TAKE 1 TABLET BY MOUTH ONCE DAILY. glyburide 5 mg tablet See Rx Instructions .ROUTE .COMPLEX Qty: 360 0RF Dose Instruction: TAKE 4 TABLETS BY MOUTH ONCE DAILY Rx Instructions: TAKE 4 TABLETS BY MOUTH ONCE DAILY omeprazole 40 mg capsule,delayed release(DR/EC) See Rx Instructions .ROUTE .COMPLEX Qty: 90 1RF Dose Instruction: Take 1 Capsule by mouth once daily. Rx Instructions: Take 1 Capsule by mouth once daily. rosuvastatin 5 mg tablet 5 mg PO HS Qty: 90 1RF metformin 500 mg tablet extended release 24 hr 500 mg PO BID Qty: 60 2RF Patient Comments: TAKE 2 TABLETS BY MOUTH ONCE DAILY. albuterol sulfate [Ventolin HFA] 90 mcg/actuation HFA aerosol inhaler See Rx Instructions .ROUTE .COMPLEX Qty: 54 0RF Dose Instruction: Inhale 2 Puffs into the lungs every 6 hours. Rx Instructions: Inhale 2 Puffs into the lungs every 6 hours. Referrals Follow up/Referrals: Aracely Thomas APRN [Primary Care Provider, Family Practice] - See instructions Clinical Impressions Clinical Impression: Left displaced femoral neck fracture, Fall Print Language Print Language: Burkinan Discharge ED Provider: Morena Hansen General Adult HPI General Chief complaint: Fall Stated complaint: Fall Time Seen by Provider: 05/24/25 15:20 Mode of Arrival: EMS Source of Information: Patient Limitations: No Limitations History of Present Illness HPI narrative: 84-year-old female presents emerged department via EMS for a unwitnessed fall, patient was found down, estimated time that approximately 2 hours, by family ember, EMS was called, patient complains of left hip pain, patient does admit to striking her head, denies any LOC, has no history of anticoagulant use, does appear to be on dual antiplatelet therapy, patient states that 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 that 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 , when she fell, denies any presyncopal or syncopal event, denies any dizziness, denies any headache, denies any neck pain, denies any fever chills chest pain shortness of breath, does admit to 1 episode of nausea and vomiting in the ambulance I got sick , denies any real abdominal pain, did have an episode of diarrhea while she was on the ground, does complain of some left shoulder pain, and a left arm abrasion, denies any urinary type symptomatology, patient is a current everyday smoker, denies any alcohol or drug use, other past medical history consistent with T2DM, vitamin D deficiency, hyperlipidemia, degenerative disc disease, hypertension, carotid artery stenosis, history of coronary artery disease status post stent placements, NIVIA/MDD, data deficient history of traumatic SAH. Initial triage vitals unremarkable. Please note that above description of symptoms, in this electronic medical record under categorization of recalled from ER triage doctor by RN are reflective of an initial nursing assessment, however, is not reflective of my full history and physical exam that was personally taken and clarified. Consequentially, this preceding description of symptoms, which may include the patient's categorized chief complaint in the EMR, do not reflect my personal clinical impression, and the ultimate description of history of present illness and patient stated complaints should be deferred to this section of the note. Unless stated otherwise or congruent with this section of the note, additional signs, symptoms, or incongruence should be interpreted as inaccurate with my clinical impression. Onset (ago): hour(s) Related Data Home Medications ?Medication ?Instructions ?Recorded ?Confirmed cholecalciferol (vitamin D3) 25 25 mcg PO DAILY 04/03/25 mcg (1,000 unit) capsule meclizine 25 mg tablet See Rx Instructions .Route 0 04/03/25 .COMPLEX PRN Previous Rx's ?Medication ?Instructions ?Recorded aspirin 81 mg tablet,delayed 81 mg PO DAILY #100 tabs 07/06/24 release clopidogrel 75 mg tablet (Plavix) 75 mg PO DAILY #90 t abs 07/06/24 nebulizer accessories #1 ea 08/08/24 nebulizers #1 ea 08/08/24 metoprolol tartrate 100 mg tablet 100 mg PO BID #60 ta bs 10/26/24 amlodipine 10 mg-valsartan 320 mg 1 tab PO DAILY #90 t abs 12/19/24 tablet glyburide 5 mg tablet See Rx Instructions .Route 0 03/09/25 .COMPLEX #360 tabs omeprazole 40 mg capsule,delayed See Rx Instructions . Route 03/24/25 release .COMPLEX #90 caps betamethasone dipropionate 0.05 % 1 applic topical BID PRN skin 04/03/25 topical cream irritation #15 grams blood sugar diagnostic (OneTouch #50 ea 04/03/25 Verio test strips) citalopram 10 mg tablet 5 mg (1/2 x 10 mg) PO BID #3 0 tabs 04/03/25 rosuvastatin 5 mg tablet 5 mg PO HS #90 tabs 04/26/25 metformin 500 mg tablet,extended 500 mg PO BID #60 tab s 05/10/25 release 24 hr Ventolin HFA 90 mcg/actuation See Rx Instructions .Rou te 05/19/25 aerosol inhaler (albuterol sulfate) .COMPLEX #54 grams Allergies Allergy/AdvReac Type Severity Reaction Status Date / Time Penicillins Allergy Severe swelling Verified 04/03/25 09:02 doxycycline Allergy Mild Verified 04/03/25 09:02 brompheniramine AdvReac Verified 04/03/25 09:02 bupivacaine (From Marcaine) AdvReac Verified 04/03/25 09:02 cephalexin (From Keflex) AdvReac Verified 04/03/25 09:02 clarithromycin AdvReac Verified 04/03/25 09:02 fluvastatin (From Lescol) AdvReac Verified 04/03/25 09:02 hydrochlorothiazide AdvReac Verified 04/03/25 09:02 lovastatin (From Altocor) AdvReac Verified 04/03/25 09:02 moxifloxacin (From Avelox) AdvReac Verified 04/03/25 09:02 nitrofurantoin (From AdvReac Verified 04/03/25 09:02 Macrobid) triamcinolone (From Kenalog) AdvReac Verified 04/03/25 09:02 PFSH PFSH Disclaimer: The information contained in this section may have been updated after the patient was seen, as this information can be updated by other users. Medical History (Updated 05/24/25 @ 17:30 by ZAIN Simmons) Vertigo Transient neurological symptoms Encounter for immunization Thyroid nodule Visual hallucination Right-sided headache Coronary artery calcification seen on CT scan Pulmonary nodule Vitamin D deficiency Type 2 diabetes mellitus without complications Hyperlipidemia Diabetes mellitus HTN (hypertension) Degenerative joint disease (DJD) of lumbar spine Surgical History H/O removal of cyst History of cholecystectomy Hx of cataract surgery Family History Mother Coronary artery disease Grandmother Stroke Brother Heart attack Social History Smoking Status: Never smoker alcohol intake: never current occupational status: other Travel in the last 8 weeks?: None household members: other housing: house Have you lived/traveled outside US in past 30 days?: No Contact w/someone who lives/traveled outside US past 30 days?: No Exposure to someone with infectious disease in past 14 days?: No Do you have a fever (greater than 100.4 F or 38 C)?: No Have you tested positive for COVID-19?: No Exposed to someone with COVID-19 in past 14 days?: No Do you have a sore throat?: No Do you have a cough?: No Do you have any weakness?: No Do you have any diarrhea?: No Are you experiencing any unusual bleeding?: No Do you have any muscle aches/pain?: No Do you have any abdominal pain?: No Are you experiencing loss of taste or smell?: No Other Medical History Have you received the Flu Vaccine for this season: No Have you received the Pneumonia Vaccine: Yes ROS Obtained: Yes All systems reviewed & no additional complaints except as documented Physical Exam General General appearance: alert and in no apparent distress Head Head exam: atraumatic and normocephalic Eye Eye exam: Present PERRL and EOMI ENT ENT exam: Present mucous membranes moist Neck Neck exam: Present normal inspection Chest Chest inspection: Present normal inspection and symmetric chest wall rise Respiratory Respiratory exam: Present normal lung sounds bilaterally; Absent respiratory distress, wheezes or stridor Cardiovascular Cardiovascular exam: Present regular rate and normal rhythm Abdominal Exam Abdominal exam: Present soft; Absent tenderness, guarding, rebound or rigidity Extremities Exam Extremities exam: Present normal inspection, tenderness and other (No obvious limb shortening or internal rotation, patient has pain to palpation to the lateral aspect of the hip, has difficulty with range of motion, pain to palpation to the anterior femur, otherwise neurovascular intact, no other upper or lower extremity acute deformity, no open fracture, does hav); Absent full ROM Neurological Exam Neurological exam: Present alert and oriented X3 Psychiatric Psychiatric exam: Present normal affect Skin Skin exam: Present warm and dry Medical Decision Making Medical Records Medical records reviewed: Yes I reviewed the patient's medical records. Screening: Per USPSTF and CDC recommendations, given the prevalence of disease in our region, it is our hospital?s policy to screen for HIV and viral Hepatitis for all patients aged 18 and over and those with ongoing risk factors. Cristhian Inquiry Pt receiving controlled substance: Yes Cristhian was queried for this patient: No Reason not queried -: Emergent pt cond-no time Risks and benefits of using a controlled substance: were discussed with pt by me Vital Signs: 05/24/25 15:17 05/24/25 15:36 05/24/25 15:42 Temperature 98.1 F Temperature Source Oral Pulse Rate 78 71 Pulse Rate [Left Radial] 73 Respiratory Rate 20 Blood Pressure 181/61 H 199/82 H Blood Pressure [Left Arm] 199/85 H Blood Pressure Mean [Left Arm] 123 02 Sat by Pulse Oximetry 93 L 92 L 92 L Oxygen Delivery Method Room Air 05/24/25 15:49 05/24/25 16:00 Temperature Temperature Source Pulse Rate 71 Pulse Rate [Left Radial] Respiratory Rate Blood Pressure 167/86 H Blood Pressure [Left Arm] Blood Pressure Mean [Left Arm] 02 Sat by Pulse Oximetry 92 L 96 Oxygen Delivery Method Room Air Lab Data Lab results reviewed: Yes I reviewed the patient's lab results. Lab Results 05/24/25 15:25: WBC 16.5 H, RBC 4.92, Hgb 14.8, Hct 44.2, MCV 89.8, MCH 30.1, MCHC 33.5, RDW 12.6, Plt Count 290, MPV 9.3, Neut % (Auto) 84.0 H, Lymph % (Auto) 9.7 L, [place] % (Auto) 4.7, Eos % (Auto) 0.4, Baso % (Auto) 0.6, Neut # (Auto) 13.9 H, Lymph # (Auto) 1.6, [place] # (Auto) 0.8, Eos # (Auto) 0.1, Baso # (Auto) 0.1, Sodium 138, Potassium 4.0, Chloride 100, Carbon Dioxide 27, Anion Gap 15.0, BUN 16, Creatinine 0.70, Estimated Creat Clear 39, Estimated GFR 80, Est GFR ( Amer) 96, Glucose 176 H, Lactate 3.6 H, Uric Acid 4.3, Calcium 9.2, Magnesium 1.5 L, Total Bilirubin 0.7, AST 36, ALT 19, Alkaline Phosphatase 86, Total Creatine Kinase 38, Troponin I < 0.01, NT-Pro-B Natriuret Pep 181, Total Protein 7.8, Albumin 4.7, Globulin 3.1, Albumin/Globulin Ratio 1.5 05/24/25 16:00: Urine Color Yellow, Urine Appearance Clear, Urine pH 6.0, Ur Specific [place] >= 1.030, Urine Protein 1+ A, Urine Glucose (UA) Negative, Urine Ketones 1+, Urine Blood Negative, Urine Nitrate Negative, Urine Bilirubin Negative, Urine Urobilinogen 0.2, Ur Leukocyte Esterase Negative, Urine RBC None, Urine WBC 5-10, Ur Squamous Epith Cells None, Urine Bacteria 1+, Urine Mucus 1+ 05/24/25 15:25 05/24/25 15:25 Orders (Tests/Meds): ED MEDICATIONS Discontinued Medications Generic Name Dose Route Start Last Admin Trade Name Lucio PRN Reason Stop Dose Admin Morphine Sulfate 2 mg 05/24/25 15:24 05/24/25 15:45 Morphine 2mg/Ml Syringe IV 05/24/25 15:25 2 mg ONCE ONE Administration Morphine Sulfate 2 mg 05/24/25 17:21 05/24/25 17:27 Morphine 2mg/Ml Syringe IV 05/24/25 17:22 2 mg ONCE ONE Administration Ondansetron HCl 4 mg 05/24/25 15:24 05/24/25 15:45 Ondansetron 4mg/2ml Vial IV 05/24/25 15:25 4 mg ONCE ONE Administration ORDERS Category Date Time Status CT abdomen pelvis w con Stat Cat Scan 05/24/25 16:[address] bony pelvis Stat Cat Scan 05/24/25 15:[address] cervical spine wo con Stat Cat Scan 05/24/25 15:[address] head/brain wo con Stat Cat Scan 05/24/25 15:[address] lumbar spine wo con Stat Cat Scan 05/24/25 15:[address] thoracic spine wo con Stat Cat Scan 05/24/25 15:21 Completed XR chest portable Stat Exams 05/24/25 15:22 Completed XR femur LT 2V Stat Exams 05/24/25 15:23 Completed XR hip LT 2-3V w/pelvis Stat Exams 05/24/25 15:23 Completed XR shoulder LT min 2V Stat Exams 05/24/25 15:31 Completed CK [Creatine Kinase] Stat Lab 05/24/25 15:25 Completed Complete Blood Count Auto Diff Stat Lab 05/24/25 15:25 Completed Comprehensive Metabolic Panel Stat Lab 05/24/25 15:25 Completed Lactic Acid Stat Lab 05/24/25 15:25 Completed Magnesium Stat Lab 05/24/25 15:25 Completed NT Pro Brain Natriuretic Pep. Stat Lab 05/24/25 15:25 Completed Troponin I Q3H Lab 05/24/25 18:30 Ordered Troponin I Q3H Lab 05/24/25 21:30 Ordered Troponin I Stat Lab 05/24/25 15:25 Completed Uric Acid Stat Lab 05/24/25 15:25 Completed Urinalysis and Microscopic Stat Lab 05/24/25 16:00 Completed Medical Decision Narrative: 84-year-old female presents emergency department via EMS for a fall, differential diagnose include but not limited to hip fracture, hip sprain/strain, pelvic fracture, lumbar spine fracture, lumbar strain/sprain, cardiac arrhythmia, electrolyte disturbance, traumatic SAH, acute SDH, cervicalgia, rhabdomyolysis, thoracic myofascial strain, C-spine fracture, T- spine fracture, femur fracture among others. I discussed the patient case with attending physician Dr. Hansen Will obtain basic laboratory studies, EKG, CT head without contrast, CT cervical spine without contrast, CT bony pelvis, CT T-spine and L-spine, without contrast, CT and pelvis with contrast, x-ray left shoulder, chest x-ray, will obtain femur x-ray, and left hip/pelvic x-ray for further evaluation/characterization. Will obtain CK level lactic acid level uric acid level, proBNP troponin, UA, and will give 2 mg IV morphine for pain and 4 mg of Zofran for nausea. CBC notable for leukocytosis at 16.5, could be reactive in the setting of trauma otherwise unremarkable. Lactic acidosis of 3.6, could be reactive in the setting of trauma, uric acid within normal limits Normal CK level, proBNP within normal limits Troponin less than 0.01 UA is notable 1+ proteinuria, plus ketonuria, negative nitrites, negative leukocyte esterase I reviewed the patient's CT cervical spine without contrast along the corresponding radiologic report, left convex spinal curvature is observed flattening of the normal lordosis related positioning or spasm, there is a chronic fusion at C5-C6 possibly developmental fusion at C4-C5, spine demonstrates moderate Omid changes greatest at C6-C7 possibly reflecting the rigidity of the spine above this level, there is bilateral foraminal compromise, no evidence of acute fracture, there is a moderate degenerative disease of temporomandibular joints bilaterally. CT lumbar spine without contrast was reviewed along with corresponding radiologic report, no acute lumbar spinal fracture. I reviewed the patient's CT head without contrast along the corresponding radiologic report, moderate cerebral atrophy, extensive symmetric chronic white matter microangiopathic changes which could reflect chronic hypertension, there are symmetric hypodensities of the thalami present on prior studies in 2023, MRI follow-up may be helpful, no acute intracranial process than 5, moderate degenerative disc disease of temporomandibular joints bilaterally I reviewed the patient's CT thoracic spine along the corresponding radiologic report, no acute thoracic spinal fracture, subpleural solid left lobe lower pulmonary nodule measuring 4 mm, recommend follow-up CT chest nonemergent. Microscopic analysis of the urine is notable for 5-10 WBCs, 1+ bacteria 1+ urine mucus. I reviewed the patient's left shoulder x-ray along the corresponding radiologic report, no acute findings. However the patient's left hip x-ray along the corresponding radiologic report, there is a complete left femoral neck fracture with displacement no dislocation to the left hip joint. The patient's chest x-ray along the corresponding radiologic report, no acute findings. Patient was placed on 2 L supplemental nasal cannula after morphine administration, patient does not use supplemental nasal cannula at home. Reexamination of the patient approximately 5:15 PM, patient still complaining of quite significant pain, will give additional dose of 2 mg IV morphine for pain. I discussed this patient's case with the on-call orthopedic surgeon Dr. Ortega at approximately 5:23 PM, he recommends admission, with orthopedic consultation, with most likely orthopedic fixation in the upcoming days hold patient's Plavix. I reviewed the patient's left femur x-ray along with corresponding radiologic report, impacted left femoral neck fracture again seen and there is no fracture distally in the left femur. I discussed this patient's case with the on-call hospitalist Dr. Pietro Vanessa at 5:28 PM, he is in agreement with current admission plan/treatment plan. I discussed need for admission with the patient and family the bedside patient and family are in agreement with current treatment plan/admission plan. I reviewed the patient's bony pelvis CT without contrast along the corresponding radiologic report, once again left femoral neck fracture that is impacted is noted. I reviewed the patient's CT head and pelvis with contrast along the corresponding radiologic report, there is scattered wall thickening versus underdistention the colon, correlate for possible colitis, no evidence of bowel obstruction, gastritis, changes also present, status postcholecystectomy with mild central intrahepatic biliary ductal prominence,, bile duct measured 1.2 cm correlate for biliary tract obstruction clinically, there is a left adrenal gland measuring 2 cm and 64 Hounsfield units, indeterminate size, there is a hypodensity in the left lower pole of the kidney measuring 10 mm in 82 hospital units, complete left femoral neck fracture, 4 mm solid left pulmonary nodule, Critical Care Critical Care Time Critical Care Time: No
--- NOTE | 2025-05-24 15:31 | XR_ITS ---
PROCEDURE INFORMATION: Exam: XR Left Shoulder Exam date and time: 05/24/2025 4:51 PM Age: 84 years old Clinical indication: Injury or trauma; Fall; Additional info: Left shoulder pain after fall TECHNIQUE: Imaging protocol: Radiologic exam of the left shoulder. Views: 2 or more views. COMPARISON: CT CERVICAL SPINE WO CON 05/24/2025 4:36 PM FINDINGS: Bones/joints: Moderate arthritis left AC joint and glenohumeral joint. No acute fracture or dislocation is seen. Soft tissues: Soft tissues are unremarkable as visualized. IMPRESSION: No acute findings.
--- OUTSIDE RECORDS SUMMARY | 2025-05-24 15:37 | XMS_ITS | Clinical Summary ---
Author Organization [facility] Address [address] [id number] Care Team Providers Care Poultry Packer Name Role Phone Pcp, No Primary Care [...] (one) time each day. Active nystatin (Mycostatin) 263890 UNIT/ML suspension Take 5 mL (500,000 Units) [...] memory and confusion, prior to this admission Subdural hematoma 08/11/2024 Overview (08/11/2024): DDAVP to reverse ASA and Plavix Stable on repeat imaging NSG consulted, signed off after reviewing imaging Hold AC/AP x 2 weeks No neurological deficits SAH (subarachnoid hemorrhage) 08/10/2024 Overview (08/11/2024): DDAVP to reverse ASA and Plavix Stable on repeat imaging NSG consulted, signed off after reviewing imaging Hold AC/AP x 2 weeks No neurological deficits Resolved Problems Problem Noted Date Diagnosed Date Resolved Date Fall 08/11/2024 05/21/2025 Overview (08/11/2024): Mechanical fall from standing Tertiary exam 08/11 Social History Tobacco Use Types Packs/Day Years [...] Screening 1940 [facility]-Medicare Annual Wellness (AWV) 1940 [facility]-/Child/Adol SDOH Screenings 1940 [facility]- SDOH Screenings 1958 [facility]-Adult SDOH Screenings 1958 [facility]-Zoster Vaccines (1 of 2) 1990 [facility]-DTaP,Tdap,and Td Vaccines (1 - Tdap) 11/04/1996 11/03/1996 [facility]-RSV Vaccine: 60+ Years or (1 - 1-dose 75+ series) 11/22/2015 [id number] Vaccine (1 - season) 2025 [facility]-Influenza Vaccine (#1) 05/01/202505/24, 05/10/2020, 05/25/2019, Additional [...] Patient has decision-making capacity? Yes Care Teams Poultry Packer Relationship Specialty Start Date End Date Pcp, No [address] [place] [address] PCP - General Family Medicine 08/10/24
--- OUTSIDE RECORDS SUMMARY | 2025-05-24 15:37 | XMS_ITS | Encounter Summary ---
Author Organization [facility] Address [address] [id number] Care Team Providers Care Financial Analyst Intern Name Role Phone Pcp, No Primary Care Provider Unavailabl e Reason for Referral * Consultation (Urgent) - Authorized Specialty Diagnoses / Procedures Referred By Contact Referred To Contact Vascular Surgery / [facility] Diagnoses Stenosis of carotid artery, unspecified laterality Prasad León MD [facility] [place] [address] Phone: tel:[phone] fax:[phone] [facility] [address] [facility] [address] [place] [address] Phone: tel: fax: Referral ID Status Reason Start Date Expiration Date Visits Requested Visits Authorized [id number] Authorized Specialty Services Required 05/17/2024 11/16/2025 1 1 Encounter Details Date Type Department Care Team (Late st Contact Info) Description 05/17/2024 Community Orders Community Practice [address] [place] [address] Prasad León MD [address] [place] [address] Stenosis of carotid artery, unspecified [...] Primary documented in this encounter Care Teams Financial Analyst Intern Relationship Specialty Start Date End Date Pcp, Sonal [address] [place] [address] PCP - General Family Medicine 08/10/24 documented as of this encounter
--- OUTSIDE RECORDS SUMMARY | 2025-05-24 15:37 | XMS_ITS | Encounter Summary ---
Author Organization Healthcare Address [address] [place] [address] Care Team Providers Care Chart Changer Name Role Phone Pcp, No Primary Care Provider Unavailabl e Encounter Details Date Type Department Care Team (Late st Contact Info) Description 05/12/2024 Orders Only External Location [address] [place] [address] Charlotte Jung, [address] [place] [address] Social History Tobacco Use Types [...] on filedocumented in this encounter Care Teams Chart Changer Relationship Specialty Start Date End Date Pcp, No [address] [place] [address] PCP - General Family Medicine 08/10/24 documented as of this encounter
--- OUTSIDE RECORDS SUMMARY | 2025-05-24 15:37 | XMS_ITS | Clinical Summary ---
Author Organization [facility] Address [address] [place] [address] Phone Care Team Providers Care Case Finisher Name Role Phone Unavailable Primary Care Provider [...] COVID-19 Vaccine ( - 2023-2 5 season) 2025 Influenza Vaccine (#1) 2025 Hepatitis B Vaccine Aged Out No longe r eligible based on patient's age to complete this topic Meningococcal B Vaccine Aged Out No l onger eligible based on patient's age to complete [place] [address] [place] [address] [place]
--- OUTSIDE RECORDS SUMMARY | 2025-05-24 15:37 | XMS_ITS | Encounter Summary ---
Author Organization Healthcare Address [address] [place] [address] Care Team Providers Care Thresher Broomcorn Name Role Phone Pcp, No Primary Care Provider Unavailabl e Encounter Details Date Type Department Care Team (Late st Contact Info) Description 05/12/2024 Orders Only External Location [address] [place] [address] Charlotte Jung, [address] [place] [address] Social History Tobacco Use Types [...] on filedocumented in this encounter Care Teams Thresher Broomcorn Relationship Specialty Start Date End Date Pcp, No [address] [place] [address] PCP - General Family Medicine 08/10/24 documented as of this encounter
[2025-05-24 15:39] LABS: Hematocrit 44.2 % (37.0-47.0); Hemoglobin 14.8 g/dL (12.2-16.2); Immature Granulocytes % 0.6 %; Mean Corpuscular HGB Conc 33.5 g/dL (31.8-35.4); Mean Corpuscular Hemoglobin 30.1 pg (27.0-31.2); Mean Corpuscular Volume 89.8 fl (81-99); Nucleated Red Blood Cells % 0 %; Platelet Count 290 K/mm3 (142-424); Red Blood Count 4.92 M/mm3 (4.20-5.40); Red Cell Distribution Width-SD 41.2 fL; White Blood Count 16.5 K/mm3 (4.8-10.8)
[2025-05-24] MEDS: ONDANSETRON 4MG/2ML VIAL 4 MG IV (15:45)
[2025-05-24] MEDS: MORPHINE 2MG/ML SYRINGE 2 MG IV ×3 (15:45→20:39)
--- NOTE | 2025-05-24 15:47 | PC.NURSE ---
Patient placed on 2L of O2 at this time.
[2025-05-24 15:52] LABS: Albumin Level 4.7 g/dl (3.5-5.0); Chloride 100 mmol/L (98-107); Potassium 4.0 mmoL/L (3.5-5.1); Sodium 138 mmol/L (136-145)
[2025-05-24 15:55] LABS: Alanine Aminotransferase 19 U/L (12-78); Albumin/Globulin Ratio 1.5 (1.1-1.8); Alkaline Phosphatase 86 U/L (38-126); Anion Gap 15.0 mEq/L (5-15); Aspartate Amino Transferase 36 U/L (14-36); Bilirubin,Total 0.7 mg/dl (0.2-1.3); Blood Urea Nitrogen 16 mg/dl (7-17); Calcium 9.2 mg/dl (8.4-10.2); Carbon Dioxide 27 mmol/L (22.0-30.0); Creatine Kinase 38 U/L (30-135); Creatinine Clearance Estimated 39 mL/min (50-200); Creatinine,Serum 0.70 mg/dl (0.52-1.04); Estimated Glomerular Filt Rate 80 ml/min (>60); GFR (African American) 96 ML/MIN (>60); Globulin 3.1 g/dL (1.3-3.2); Glucose 176 mg/dl (74-100); Total Protein,Serum 7.8 g/dl (6.3-8.2)
[2025-05-24 15:56] LABS: Magnesium 1.5 mg/dl (1.6-2.3); Uric Acid 4.3 mg/dl (2.5-6.2)
--- NOTE | 2025-05-24 16:03 | ECG_ITS ---
APPROVED REPORT Exam: Resting ECG HR:68 bpm ECG Measurements Heart Rate 68 AXES SC 156 P 65 QRSd 82 QRS 55 QT 419 T 65 QTc 437 Conclusion SINUS RHYTHM NORMAL ECG Electronically signed by : GARY CELESTE, 05/25/2025 09:19:28
[2025-05-24 16:05] LABS: NT Pro Brain Natriuretic Pep. 181 pg/mL (0-450)
[2025-05-24 16:08] LABS: Troponin I < 0.01 ng/ml (0.00-0.034)
--- NOTE | 2025-05-24 16:13 | CT_ITS ---
PROCEDURE INFORMATION: Exam: CT Abdomen And Pelvis With Contrast Exam date and time: 05/24/2025 4:48 PM Age: 84 years old Clinical indication: Constipation and nausea; Additional info: Abd pain, n/v, diarrhea, fall TECHNIQUE: Imaging protocol: Computed tomography of the abdomen and pelvis with contrast. Radiation optimization: All CT scans at this facility use at least one of these dose optimization techniques: automated exposure control; mA and/or kV adjustment per patient size (includes targeted exams where dose is matched to clinical indication); or iterative reconstruction. Contrast material: ISOVUE; Contrast volume: 75 ml; Contrast route: IV; COMPARISON: 1. CT BONY PELVIS 05/24/2025 4:[address] LUMBAR SPINE WO CON 08/10/2024 2:37 PM FINDINGS: Lungs: There is a 4 mm solid left lower lobe pulmonary nodule on series 3, image 8. Minimal atelectasis in the lung bases. Liver: The liver has diffuse fatty infiltration. No mass. The portal vasculature is patent. Gallbladder and biliary ducts: Status post cholecystectomy with mild central intrahepatic biliary ductal prominence. Common bile duct measures 1.3 cm. Pancreas: The pancreas is unremarkable. Spleen: The spleen is unremarkable. Adrenal glands: The adrenal glands are unremarkable. There is a left adrenal gland mass measuring 2 cm and 64 Hounsfield units indeterminate similar size to previous lumbar spine CT. The right adrenal gland is normal. Kidneys and ureters: There is a hyperdensity in the lower pole of the left kidney measuring 10 mm and 82 Hounsfield units indeterminate. Follow-up with a renal protocol CT recommended. No hydronephrosis. Probable scarring upper pole left kidney. Stomach and bowel: Thickened or decompressed appearance of the stomach. Correlate for possible gastritis. The colon contains scattered diverticuli without significant diverticuli formation. There are scattered regions of wall thickening versus underdistention. No evidence of bowel obstruction. Appendix: The appendix is normal as seen on axial image 80. Intraperitoneal space: No free air. No significant ascites. Retroperitoneal space: Visualized retroperitoneal structures grossly negative with no obvious hematoma identified. 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 There is severe atherosclerotic changes of the vasculature. Lymph nodes: No pathologic lymphadenopathy identified. Urinary bladder: The bladder is unremarkable as visualized. Reproductive: The uterus is present. Bones/joints: Complete left femoral neck fracture with angulation and displacement again present. Soft tissues: There is a small-sized fat containing umbilical hernia present. The soft tissue structures are otherwise unremarkable. IMPRESSION: 1. There is scattered wall thickening versus underdistention in the colon. Correlate for possible colitis. No evidence of bowel obstruction. Gastritis changes also present. 2. Status post cholecystectomy with mild central intrahepatic biliary ductal prominence. Common bile duct measures 1.3 cm. Correlate for biliary tract obstruction clinically. 3. There is a left adrenal gland mass measuring 2 cm and 64 Hounsfield units indeterminate similar size to previous lumbar spine CT. 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 4. There is a hyperdensity in the lower pole of the left kidney measuring 10 mm and 82 Hounsfield units indeterminate. Follow-up with a renal protocol CT recommended. 5. Complete left femoral neck fracture with angulation and displacement again present. 6. There is a 4 mm solid left lower lobe pulmonary nodule on series 3, image 8. For patients at low risk (minimal or absent history of smoking and of other known risk factors), no routine follow-up is indicated. For patients at high risk (history of smoking or of other known risk factors), consider optional CT Chest at 12 months. (Reference: Isaias) COMMENTS: Consistent with the [place] [employer]'s Incidental Findings Committee white paper (J Am Raymundo Radiol 2018): Any incidental renal lesion less than 1 cm or classified as too small to characterize, or any incidental cystic renal lesion characterized as simple-appearing, is likely benign. No follow-up imaging is recommended for these lesions per consensus recommendations based on imaging criteria. REFERENCES: Isaias Aldridge et al. Guidelines for Management of Incidental Pulmonary Nodules Detected on CT Images: From the Fleischner Society 2017. Radiology. 2017;284(1):228-243.
[2025-05-24 16:15] LABS: Microscopic, Urine URINE MICROSCOPIC (MICROSCOPIC)
[2025-05-24 16:25] LABS: Bilirubin,Urine Negative (Negative); Color,Urine YELLOW (Yellow); Glucose,Urine (UA) Negative (Negative); Ketones,Urine 1+ (Negative); Leukocyte Esterase,Urine Negative (Negative); PH,Urine 6.0 (5.0-8.5); Protein,Urine 1+ (Negative); Specific Gravity, Urine >= 1.030 (1.005-1.030); Urobilinogen,Urine 0.2 EU/dl (0.2)
[2025-05-24 17:07] LABS: Bacteria,Urine 1+ /lpf; Mucus,Urine 1+ /lpf
--- NOTE | 2025-05-24 17:30 | PC.NURSE ---
greenhouse transplanter notified of admission
--- NOTE | 2025-05-24 18:07 | PC.NURSE ---
rpt called to 2nd floor rn
--- NOTE | 2025-05-24 18:37 | P.HP_ITS ---
<Statement entered by Adolfo Gonzales MD - 05/25/25 14:24> Agree with plan of care as outlined by the FENCE MANUFACTURE SUPERVISOR. History of Present Illness *Admission Date: 05/24/25 *Reason for visit:: Fall *History of present illness: This is an 84-year-old female with a past medical history significant for vertigo, TIA, coronary artery disease with prior coronary artery stenting, vitamin D deficiency, pulmonary nodule, type 2 diabetes, hyperlipidemia, degenerative joint disease, and diabetes who presents with a chief complaint of fall and pain to the left hip post fall. Due to patient's symptoms, she presented to the emergency room for evaluation. 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 Due to these findings, hospital medicine was consulted for further management. During my evaluation of the patient, patient states that she dropped a fork. Upon attempting to tow picker the fork, patient fell. She landed on her floor and was on the floor for approximately 2 hours prior to being found by family members. Post fall patient states that she was having pain to her left hip and could not ambulate. It is worth mentioning that patient does have a history of prior coronary artery disease with prior coronary artery intervention. She is currently on dual antiplatelet therapy and her last dose for aspirin and Plavix was today. Moreover, patient states that prior to the fall she was able to tolerate walking from her mailbox to her house without any shortness of breath and she could climb a flight of stairs without shortness of breath or chest pain. Moreover, patient mentions that she can lift at least 10 pounds or more. This gives patient a metabolic equivalents of at least 4 METS. She is currently denying any chest pain, lightheadedness, dizziness, near-syncope, syncope, shortness of breath, dyspnea, nausea, vomiting, or diarrhea. Additional pertinent vitals obtained including white blood cell count of 16.5, neutrophils 84%, blood glucose 176, venous lactic acid of 3.6, and magnesium 1.5. [facility] Disclaimer: The information contained in this section may have been updated after the patient was seen, as this information can be updated by other users. Medical History (Updated 05/24/25 @ 18:49 by Mohit Dunham APRN) Vertigo Transient neurological symptoms Encounter for immunization Thyroid nodule Visual hallucination Right-sided headache Coronary artery calcification seen on CT scan Pulmonary nodule Vitamin D deficiency Type 2 diabetes mellitus without complications Hyperlipidemia Diabetes mellitus HTN (hypertension) Degenerative joint disease (DJD) of lumbar spine Surgical History H/O removal of cyst History of cholecystectomy Hx of cataract surgery Family History Mother Coronary artery disease Grandmother Stroke Brother Heart attack Social History (Updated 05/24/25 @ 18:16 by Camille Anna RN) Smoking Status: Current every day smoker tobacco type: cigarettes packs per day: 1 alcohol intake: never current occupational status: other Travel in the last 8 weeks?: None household members: other housing: house Have you lived/traveled outside US in past 30 days?: No Contact w/someone who lives/traveled outside US past 30 days?: No Exposure to someone with infectious disease in past 14 days?: No Do you have a fever (greater than 100.4 F or 38 C)?: No Have you tested positive for COVID-19?: No Exposed to someone with COVID-19 in past 14 days?: No Do you have a sore throat?: No Do you have a cough?: No Do you have any weakness?: No Are you experiencing any nausea/vomitting?: No Do you have any diarrhea?: No Are you experiencing any unusual bleeding?: No Do you have any muscle aches/pain?: No Do you have any abdominal pain?: No Are you experiencing loss of taste or smell?: No Other Medical History Have you received the Flu Vaccine for this season: Yes Have you received the Pneumonia Vaccine: Yes Review of Systems Review of Systems Review of systems:: pertinent systems reviewed and negative unless documented below Constitutional Constitutional: Reports weakness Eyes Eyes: Reports system reviewed and no additional complaints, except as documented ENT Ears, Nose, Mouth, and Throat: Reports system reviewed and no additional complaints, except as documented *Cardiovascular Cardiovascular: Reports system reviewed and no additional complaints, except as documented *Respiratory Respiratory: Reports system reviewed and no additional complaints, except as documented *Gastrointestinal Gastrointestinal: Reports system reviewed and no additional complaints, except as documented *Genitourinary Genitourinary: Reports system reviewed and no additional complaints, except as documented *Musculoskeletal Musculoskeletal: Reports limited range of motion Integumentary/Breasts Skin/Breast: Reports system reviewed and no additional complaints, except as documented *Neurologic Neurologic: Reports weakness Psychiatric Psychiatric: Reports system reviewed and no additional complaints, except as documented Endocrine Endocrine: Reports system reviewed and no additional complaints, except as documented Hematologic/Lymphatic Hematologic/Lymphatic: Reports system reviewed and no additional complaints, except as documented Allergic/Immunologic Allergic/Immunologic: Reports system reviewed and no additional complaints, except as documented Meds Home Medications and Allergies Home Medications ?Medication ?Instructions ?Recorded ?Confirmed ?Type aspirin 81 mg tablet,delayed 81 mg PO DAILY #100 tabs 07/06/24 04/03/25 Rx release clopidogrel 75 mg tablet (Plavix) 75 mg PO DAILY #90 t abs 07/06/24 04/03/25 Rx nebulizer accessories #1 ea 08/08/24 04/03/25 Rx nebulizers #1 ea 08/08/24 04/03/25 Rx metoprolol tartrate 100 mg tablet 100 mg PO BID #60 ta bs 10/26/24 04/03/25 Rx amlodipine 10 mg-valsartan 320 mg 1 tab PO DAILY #90 t abs 12/19/24 04/03/25 Rx tablet glyburide 5 mg tablet See Rx Instructions .Route 0 03/09/25 04/03/25 Rx .COMPLEX #360 tabs omeprazole 40 mg capsule,delayed See Rx Instructions . Route 03/24/25 04/03/25 Rx release .COMPLEX #90 caps betamethasone dipropionate 0.05 % 1 applic topical BID PRN skin 04/03/25 04/03/25 Rx topical cream irritation #15 grams blood sugar diagnostic (OneTouch #50 ea 04/03/2504/03 Rx Verio test strips) cholecalciferol (vitamin D3) 25 25 mcg PO DAILY 04/03/25 History mcg (1,000 unit) capsule citalopram 10 mg tablet 5 mg (1/2 x 10 mg) PO BID #3 0 tabs 04/03/25 04/03/25 Rx meclizine 25 mg tablet See Rx Instructions .Route 0 04/03/25 History .COMPLEX PRN rosuvastatin 5 mg tablet 5 mg PO HS #90 tabs 04/26/25 Rx metformin 500 mg tablet,extended 500 mg PO BID #60 tab s 05/10/25 Rx release 24 hr Ventolin HFA 90 mcg/actuation See Rx Instructions .Rou te 05/19/25 Rx aerosol inhaler (albuterol sulfate) .COMPLEX #54 grams New Prescriptions to Start Prescriptions: Allergies Allergy/AdvReac Type Severity Reaction Status Date / Time Penicillins Allergy Severe swelling Verified 04/03/25 09:02 doxycycline Allergy Mild Verified 04/03/25 09:02 brompheniramine AdvReac Verified 04/03/25 09:02 bupivacaine (From Marcaine) AdvReac Verified 04/03/25 09:02 cephalexin (From Keflex) AdvReac Verified 04/03/25 09:02 clarithromycin AdvReac Verified 04/03/25 09:02 fluvastatin (From Lescol) AdvReac Verified 04/03/25 09:02 hydrochlorothiazide AdvReac Verified 04/03/25 09:02 lovastatin (From Altocor) AdvReac Verified 04/03/25 09:02 moxifloxacin (From Avelox) AdvReac Verified 04/03/25 09:02 nitrofurantoin (From AdvReac Verified 04/03/25 09:02 Macrobid) triamcinolone (From Kenalog) AdvReac Verified 04/03/25 09:02 Exam Data for Last 24 hours Vital signs and Labs for Last 24 Hours: Temp Pulse Resp BP Pulse Ox O2 Del Method 97.9 F 80 20 145/70 H 96 Room Air 05/24/25 18:06 05/24/25 18:06 05/24/25 18:06 05/24/25 18:06 05/24/25 16:00 05/24/25 18:06 Laboratory Results - last 24 hr 05/24/25 15:25: WBC 16.5 H, RBC 4.92, Hgb 14.8, Hct 44.2, MCV 89.8, MCH 30.1, MCHC 33.5, RDW 12.6, Plt Count 290, MPV 9.3, Neut % (Auto) 84.0 H, Lymph % (Auto) 9.7 L, [place] % (Auto) 4.7, Eos % (Auto) 0.4, Baso % (Auto) 0.6, Neut # (Auto) 13.9 H, Lymph # (Auto) 1.6, [place] # (Auto) 0.8, Eos # (Auto) 0.1, Baso # (Auto) 0.1, Sodium 138, Potassium 4.0, Chloride 100, Carbon Dioxide 27, Anion Gap 15.0, BUN 16, Creatinine 0.70, Estimated Creat Clear 39, Estimated GFR 80, Est GFR ( Amer) 96, Glucose 176 H, Lactate 3.6 H, Uric Acid 4.3, Calcium 9.2, Magnesium 1.5 L, Total Bilirubin 0.7, AST 36, ALT 19, Alkaline Phosphatase 86, Total Creatine Kinase 38, Troponin I < 0.01, NT-Pro-B Natriuret Pep 181, Total Protein 7.8, Albumin 4.7, Globulin 3.1, Albumin/Globulin Ratio 1.5 05/24/25 16:00: Urine Color Yellow, Urine Appearance Clear, Urine pH 6.0, Ur Specific [place] >= 1.030, Urine Protein 1+ A, Urine Glucose (UA) Negative, Ur ine Ketones 1+, Urine Blood Negative, Urine Nitrate Negative, Urine Bilirubin Negative, Urine Urobilinogen 0.2, Ur Leukocyte Esterase Negative, Urine RBC None, Urine WBC 5-10, Ur Squamous Epith Cells None, Urine Bacteria 1+, Urine Mucus 1+ I & O for Last 24 hours: Intake & Output 05/21/25 05/22/25 05/23/25 05/24/25 23:59 23:59 23:59 23:59 Weight 58.967 kg Constitutional Constitutional: no acute distress, cooperative and combative *Routine HEENT Exam Head: Present normocephalic Eye: Present EOMI ENT: Present mucous membranes moist *Routine Neck Exam Neck: Present supple, full ROM and trachea midline *Routine Respiratory Exam Respiratory: Present CTA bilaterally, normal respiratory effort, able to speak in complete sentences and symmetric chest movement *Routine Cardiovascular Exam Cardiovascular: Present RRR, Normal S1 and Normal S2 *Routine Abdominal Exam Abdominal: Present soft and normoactive bowel sounds *Routine Rectal Exam Rectal:: deferred *Routine Genitalia Exam Genitalia:: deferred *Routine Extremities Exam Extremities: Present pulses intact and normal capillary refill Routine Back/Spine/Pelvis Exam Back/Spine: Present full ROM *Routine Skin Exam Skin: Present dry and warm *Routine Neurological Exam Neurological: Present alert, oriented X3, CN II-XII intact and normal speech Routine Psychiatric Exam Psychiatric: Present normal affect, normal thought process, cooperative, good insight and good judgment H&P: Result Impressions 84-year-old female presents post fall with left hip fracture. She does have a cardiac history with prior coronary artery stenting currently on DAPT therapy. However, patient does have a METS tolerance of at least 4 Assessment and Plan *Assessment and plan (1) Fall: Status: Acute Qualifiers: Encounter type: initial encounter Qualified Code(s): W19.XXXA - Unspecified fall, initial encounter Category: Medical Code(s): W19.XXXA - Unspecified fall, initial encounter (2) Left displaced femoral neck fracture: Status: Acute Category: Medical Code(s): S72.002A - Fracture of unspecified part of neck of left femur, initial encounter for closed fracture (3) Hyperglycemia: Status: Acute Category: Medical Code(s): R73.9 - Hyperglycemia, unspecified (4) Hypomagnesemia: Status: Acute Category: Medical Code(s): E83.42 - Hypomagnesemia (5) Leukocytosis: Status: Acute Qualifiers: Leukocytosis type: unspecified Qualified Code(s): D72.829 - Elevated white blood cell count, unspecified Category: Medical Code(s): D72.829 - Elevated white blood cell count, unspecified (6) Mass of adrenal gland: Status: Acute Category: Medical Code(s): E27.8 - Other specified disorders of adrenal gland Plan Assessment: Ground-level fall with trauma Left hip fracture -Patient currently has a METS of 4 with a revised cardiac index of 0; patient does have the risk of general anesthesia but this represents a mild risk to s urgery; however, patient does have advanced age with a history of coronary artery disease and prior coronary stenting. Will obtain 2D echo to aid in cardiac clearance; I do believe it is in patient's best interest to proceed with surgery - Will consult the orthopedic team -Will make patient n.p.o. after midnight Hyperglycemia -Most likely in the setting of type 2 diabetes -Sliding scale insulin AC and at bedtime with mild scale coverage Hypomagnesia -2 g magnesium IV x 1 - Repeat magnesium level in a.m. Leukocytosis with left shift - Currently there are no obvious signs of infection - Most likely this is in the setting of neutrophilia from recent trauma - I suspect that this will downward trend in 8 hours - If patient starts to have fever, will obtain blood cultures x 2 - Will obtain procalcitonin - Will trend white blood cell count daily Mass of the adrenal gland - Currently patient is without any symptomology that denotes adrenal gland dysfunction - Patient can follow-up as an outpatient for this Coronary artery disease - May have to hold patient's dual antiplatelet therapy Plan: Admit patient to the Medr unit Bed rest Consult case management 1800 ADA cardiac diet N.p.o. after midnight CBC/BMP daily 40 mg Lovenox subcu daily for DVT prophylaxis 2 mg morphine IV push every 4 hours as needed severe pain 21 mg nicotine patch 4 mg Zofran IV push every 8 hours pain and nausea vomiting/5 mg Brandon p.o. every 4 hours pain moderate pain Hoffman catheter Full code I have discussed this case with attending physician Dr. Gonzales and I look forward to more input
--- NOTE | 2025-05-24 18:40 | PC.NURSE ---
arrived by stretcher from ED
[2025-05-24 19:37] LABS: Reflex Lactic Add Lactic Reflex
--- OUTSIDE RECORDS SUMMARY | 2025-05-24 19:40 | XMS_ITS | Clinical Summary ---
Author Organization [facility] Address [address] [place] [address] Phone Care Team Providers Care General Warehouse Worker Name Role Phone Unavailable Primary Care Provider [...]
--- OUTSIDE RECORDS SUMMARY | 2025-05-24 19:40 | XMS_ITS | Clinical Summary ---
Author Organization [facility] Address [address] [id number] Care Team Providers Care Office Services Representative Name Role Phone Pcp, No Primary Care [...] (one) time each day. Active nystatin (Mycostatin) 263585 UNIT/ML suspension Take 5 mL (500,000 Units) [...] or (1 - 1-dose 75+ series) 11/22/2015 [id number] Vaccine (1 - season) 2025 UKY-Influenza Vaccine [...] Patient has decision-making capacity? Yes Care Teams Office Services Representative Relationship Specialty Start Date End Date Pcp, No [address] [place] [address] PCP - General Family Medicine 08/10/24
--- OUTSIDE RECORDS SUMMARY | 2025-05-24 19:40 | XMS_ITS | Encounter Summary ---
Author Organization [facility] Address [address] [place] [address] Care Team Providers Care Science Tutor Name Role Phone Pcp, No Primary Care Provider Unavailabl e Encounter Details Date Type Department Care Team (Late st Contact Info) Description 05/12/2024 Orders Only External Location [address] [place] [address] Charlotte Jung, [address] [place] [address] Social History Tobacco Use Types [...] on filedocumented in this encounter Care Teams Science Tutor Relationship Specialty Start Date End Date Pcp, No [address] [place] [address] PCP - General Family Medicine 08/10/24 documented as of this encounter
--- OUTSIDE RECORDS SUMMARY | 2025-05-24 19:40 | XMS_ITS | Encounter Summary ---
Author Organization [facility] Address [address] [place] [address] Care Team Providers Care Dual Rate Supervisor Name Role Phone Pcp, No Primary Care Provider Unavailabl e Encounter Details Date Type Department Care Team (Late st Contact Info) Description 05/12/2024 Orders Only External Location [address] [place] [address] Charlotte Jung, [address] [place] [address] Social History Tobacco Use Types [...] on filedocumented in this encounter Care Teams Dual Rate Supervisor Relationship Specialty Start Date End Date Pcp, No [address] [place] [address] PCP - General Family Medicine 08/10/24 documented as of this encounter
--- OUTSIDE RECORDS SUMMARY | 2025-05-24 19:40 | XMS_ITS | Encounter Summary ---
Author Organization [facility] Address [address] [id number] Care Team Providers Care Jute Bag Cutting Machine Operator Name Role Phone Pcp, No Primary Care Provider Unavailabl e Reason for Referral * Consultation (Urgent) - Authorized Specialty Diagnoses / Procedures Referred By Contact Referred To Contact Vascular Surgery / [facility] Diagnoses Stenosis of carotid artery, unspecified laterality Prasad León MD [facility] [place] [address] Phone: tel:[phone] fax:[phone] [facility] [address] [facility] [address] [place] [address] Phone: tel: fax: Referral ID Status Reason Start Date Expiration Date Visits Requested Visits Authorized [id number] Authorized Specialty Services Required 05/17/2024 11/16/2025 1 1 Encounter Details Date Type Department Care Team (Late st Contact Info) Description 05/17/2024 Community Orders Community Practice [address] [place] [address] Prasad León MD [address] [place] [address] Stenosis of carotid artery, unspecified [...] Primary documented in this encounter Care Teams Jute Bag Cutting Machine Operator Relationship Specialty Start Date End Date Pcp, Sonal [address] [place] [address] PCP - General Family Medicine 08/10/24 documented as of this encounter
[2025-05-24 19:56] LABS: Troponin I < 0.01 ng/ml (0.00-0.034)
[2025-05-24] MEDS: MAGNESIUM SULFATE IN WATER 2 GM/50 ML PIGGYBACK IV (21:19)
[2025-05-24] MEDS: 0.9 % SODIUM CHLORIDE 1000ML 1,000 ML 75 ML IV (21:20)
[2025-05-24] MEDS: humaLOG 100 UNITS/ML 10ML VIAL (SSI) SUBCUT (21:48)
[2025-05-24 22:30] LABS: Lactic Acid Follow Up (RFLX 1) 2.5 mmol/L (0.7-2.1); Troponin I < 0.01 ng/ml (0.00-0.034)
[2025-05-24 23:59] LABS: Reflex Lactic (2 hrs) Add Lactic Reflex
[2025-05-25] VITALS (7 sets, daily range): BP systolic 107–159; BP diastolic 59–66; PULSE 74–95; RESP 14–18; TEMP 36.6–37.7; O2SAT 64–95; BMI 26.2
[2025-05-25 00:46] LABS: Lactic Acid Follow up (RFLX 2) 1.7 mmol/L (0.7-2.1)
[2025-05-25] MEDS: HYDROMORPHONE 2MG/ML SYRINGE 0.25 MG IV (02:03)
--- NOTE | 2025-05-25 05:47 | PC.NURSE ---
Went into patients room to get vitals the o2sat was 64 room air, nurse is aware. she was put on at 3L,and the nurse called respiratory.
[2025-05-25 06:20] LABS: Hematocrit 41.8 % (37.0-47.0); Immature Granulocytes % 0.3 %; Mean Corpuscular HGB Conc 31.8 g/dL (31.8-35.4); Mean Corpuscular Hemoglobin 29.2 pg (27.0-31.2); Mean Corpuscular Volume 91.7 fl (81-99); Nucleated Red Blood Cells % 0 %; Platelet Count 227 K/mm3 (142-424); Red Blood Count 4.56 M/mm3 (4.20-5.40); Red Cell Distribution Width-SD 43.2 fL; White Blood Count 12.6 K/mm3 (4.8-10.8)
[2025-05-25 06:21] LABS: POC Glucose,Bedside 162 gm/dL (70-110)
[2025-05-25 06:26] LABS: Hemoglobin 13.5 g/dL (12.2-16.2)
[2025-05-25 06:29] LABS: Anion Gap 7.7 mEq/L (5-15); Blood Urea Nitrogen 14 mg/dl (7-17); Calcium 8.4 mg/dl (8.4-10.2); Carbon Dioxide 28 mmol/L (22.0-30.0); Chloride 104 mmol/L (98-107); Creatinine Clearance Estimated 43 mL/min (50-200); Creatinine,Serum 0.70 mg/dl (0.52-1.04); Estimated Glomerular Filt Rate 80 ml/min (>60); GFR (African American) 96 ML/MIN (>60); Glucose 165 mg/dl (74-100); Potassium 3.7 mmoL/L (3.5-5.1); Sodium 136 mmol/L (136-145)
[2025-05-25 06:38] LABS: Magnesium 2.1 mg/dl (1.6-2.3)
[2025-05-25 06:39] LABS: POC Glucose,Bedside 195 gm/dL (70-110)
[2025-05-25 06:56] LABS: Procalcitonin 0.098 ng/mL (0.0-2.0)
--- NOTE | 2025-05-25 08:17 | PC.NURSE ---
PT was admitted from the ER yesterday with a FX L Hip. Pt was in extreme pain and said the morphine was not do anything for her. Called Melissa Lindsey Md, He ordered her 0.125 mg Dilaudid. PT was more relaxed at that time. Vitals we stable . AT 440 This AM I called RT about this PT having a O2 need when they started the shift with out needing it. RT Placed them on a 50 venti mask with 12 L. Spoke with Jackson the honing machine set up operator tool MD. He thought it is related to Lung Dz and opiods out of her system. SHADY OTT RN
--- NOTE | 2025-05-25 08:48 | HMH.PHAINT1 ---
Pharmacy Intervention Comments: MEDICATION RECONCILIATION COMPLETED ON PATIENT USING EXTERNAL FILL HISTORY FROM PHARMACY. -MICHAEL PAULINO, RICKEYD
--- NOTE | 2025-05-25 09:00 | CA_ITS ---
APPROVED REPORT EXAM: Comprehensive 2D, Doppler, and color-flow Echocardiogram Testing Projects Administrator: Esther Guillen CRT Ht: 5 ft 2 in Wt: 130lbs BSA: 1.59 BP: 145/70 mmHg Indications: Pre-op assessment, L femoral neck fx, TIA, CAD, stents, HTN, HLD, DM Pt flat on back due to hip fx Definity not given due to an extensive allergy list. M-Mode Dimensions LA Diam 3.34 cm (1.9-4.0) LV Diastology E Decel Time 260 (160-240 msec) E/A Ratio 0.70 MED A' 9.80 cm/s LAT A' 6.80 cm/s Aortic Valve AO Peak GR. 5.70 mmHg Mitral Valve MV E Max Scotty. 88.0 (40-130 cm/s) MV A Velocity 126.0 (40-130 cm/s) E/A Ratio 0.70 MV PHT 76.0 ms Tricuspid Valve TR P. Velocity 147.00 cm/s RAP Estimate 10.00 mmHg RVSP 18.70 mmHg Left Ventricle The left ventricle is normal size. Left ventricular systolic function is normal. The left ventricular ejection fraction is within the normal range. There is increased left ventricular wall thickness. There is normal LV segmental wall motion. The left ventricular diastolic function is indeterminate. LVEF is 55% Right Ventricle The right ventricle is not well-visualized, but grossly appears mildly dilated with normal RV function. Atria The left atrium size is normal. The right atrium is not well-visualized. There is no color Doppler evidence of interatrial shunt. Aortic Valve The aortic valve is mildly thickened. There is no hemodynamically significant aortic valvular stenosis. No aortic regurgitation is present. Mitral Valve The mitral valve is mildly thickened. No evidence of mitral valve stenosis. Trace mitral regurgitation is present. Tricuspid Valve The tricuspid valve leaflets are not well-visualized. Trace tricuspid regurgitation. There is insufficient TR jet to estimate RVSP. Pulmonic Valve The pulmonary valve is not well-visualized. Trace pulmonic valve regurgitation is present. Great Vessels The aortic root is not well-visualized. IVC is normal in size and collapses >50% with inspiration. Pericardium There is a small sized, anterior pericardial effusion present. The effusion is at least partially loculated. The largest pocket measures 0.3 cm in diastole. No evidence of chamber collapse. No echo indications of tamponade. Other Information Study Quality: Technically Difficult Conclusion Technically difficult study. Normal biventricular systolic function. Mild RV dilation. No significant valvular stenosis or regurgitation in the visualized valves. Small sized, anterior pericardial effusion present. The effusion is at least partially loculated. The largest pocket measures 0.3 cm in diastole. No evidence of chamber collapse. No echo indications of tamponade. Electronically signed by : Uma Cook MD 05/25/2025 12:52:20
[2025-05-25 09:18] LABS: Thyroid Stimulating Hormone 2.46 uIU/mL (0.465-4.68)
[2025-05-25 09:37] LABS: Vitamin B12 391 pg/mL (239-931)
[2025-05-25] MEDS: HYDROCODONE/APAP 5/325 MG TABLET 1 TAB PO ×2 (09:45→15:40)
--- NOTE | 2025-05-25 10:16 | P.CONS_ITS ---
History of Present Illness *Admission Date: 05/24/25 *History of present illness: This is an 84-year-old female with a past medical history significant for vertigo, TIA, coronary artery disease with prior coronary artery stenting, vitamin D deficiency, pulmonary nodule, type 2 diabetes, hyperlipidemia, degenerative joint disease, and diabetes who presents with a chief complaint of fall and pain to the left hip post fall. Due to patient's symptoms, she presented to the emergency room for evaluation. 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 Due to these findings, hospital medicine was consulted for further management. \ Patient took Plavix yesterday morning. Did not take the aspirin in the evening. Suffered a displaced left femoral neck fracture. Orthopedics consulted for definitive treatment options. [facility] Disclaimer: The information contained in this section may have been updated after the patient was seen, as this information can be updated by other users. Medical History (Updated 05/24/25 @ 18:49 by Mohit Dunham APRN) Vertigo Transient neurological symptoms Encounter for immunization Thyroid nodule Visual hallucination Right-sided headache Coronary artery calcification seen on CT scan Pulmonary nodule Vitamin D deficiency Type 2 diabetes mellitus without complications Hyperlipidemia Diabetes mellitus HTN (hypertension) Degenerative joint disease (DJD) of lumbar spine Surgical History H/O removal of cyst History of cholecystectomy Hx of cataract surgery Family History Mother Coronary artery disease Grandmother Stroke Brother Heart attack Social History (Updated 05/24/25 @ 18:16 by Camille Anna RN) Smoking Status: Current every day smoker tobacco type: cigarettes packs per day: 1 alcohol intake: never current occupational status: other Travel in the last 8 weeks?: None household members: other housing: house Have you lived/traveled outside [place] in past 30 days?: No Contact w/someone who lives/traveled outside [place] past 30 days?: No Exposure to someone with infectious disease in past 14 days?: No Do you have a fever (greater than 100.4 F or 38 C)?: No Have you tested positive for COVID-19?: No Exposed to someone with COVID-19 in past 14 days?: No Do you have a sore throat?: No Do you have a cough?: No Do you have any weakness?: No Are you experiencing any nausea/vomitting?: No Do you have any diarrhea?: No Are you experiencing any unusual bleeding?: No Do you have any muscle aches/pain?: No Do you have any abdominal pain?: No Are you experiencing loss of taste or smell?: No Review of Systems Constitutional Constitutional: Reports weakness *Neurologic Neurologic: Reports weakness Meds Home Medications and Allergies Home Medications ?Medication ?Instructions ?Recorded ?Confirmed ?Type aspirin 81 mg tablet,delayed 81 mg PO DAILY #100 tabs 07/06/24 05/25/25 Rx release clopidogrel 75 mg tablet (Plavix) 75 mg PO DAILY #90 t abs 07/06/24 05/25/25 Rx nebulizer accessories #1 ea 08/08/24 04/03/25 Rx nebulizers #1 ea 08/08/24 04/03/25 Rx metoprolol tartrate 100 mg tablet 100 mg PO BID #60 ta bs 10/26/24 05/25/25 Rx amlodipine 10 mg-valsartan 320 mg 1 tab PO DAILY #90 t abs 12/19/24 05/25/25 Rx tablet blood sugar diagnostic (OneTouch #50 ea 04/03/2504/03 Rx Verio test strips) cholecalciferol (vitamin D3) 25 25 mcg PO DAILY 05/25/25 History mcg (1,000 unit) capsule citalopram 10 mg tablet 5 mg (1/2 x 10 mg) PO BID #3 0 tabs 04/03/25 05/25/25 Rx rosuvastatin 5 mg tablet 5 mg PO HS #90 tabs 04/26/25 05/25/25 Rx metformin 500 mg tablet,extended 500 mg PO BID #60 tab s 05/10/25 05/25/25 Rx release 24 hr albuterol sulfate 90 mcg/actuation 2 puff inhalation Q 6H 05/25/25 05/25/25 History aerosol inhaler (Ventolin HFA) betamethasone dipropionate 0.05 % 1 applic topical BID P PRN skin 05/25/25 05/25/25 History topical cream irritation glyburide 5 mg tablet 20 mg PO DAILY 05/25/25 09/2 01/22 History omeprazole 40 mg capsule,delayed 40 mg PO DAILY 05/25/25 History release New Prescriptions to Start Prescriptions: Allergies Allergy/AdvReac Type Severity Reaction Status Date / Time Penicillins Allergy Severe swelling Verified 04/03/25 09:02 doxycycline Allergy Mild Verified 04/03/25 09:02 brompheniramine AdvReac Verified 04/03/25 09:02 bupivacaine (From Marcaine) AdvReac Verified 04/03/25 09:02 cephalexin (From Keflex) AdvReac Verified 04/03/25 09:02 clarithromycin AdvReac Verified 04/03/25 09:02 fluvastatin (From Lescol) AdvReac Verified 04/03/25 09:02 hydrochlorothiazide AdvReac Verified 04/03/25 09:02 lovastatin (From Altocor) AdvReac Verified 04/03/25 09:02 moxifloxacin (From Avelox) AdvReac Verified 04/03/25 09:02 nitrofurantoin (From AdvReac Verified 04/03/25 09:02 Macrobid) triamcinolone (From Kenalog) AdvReac Verified 04/03/25 09:02 Ortho Exam (Inpt) Vital signs and Labs for Last 24 Hours: Temp Pulse Resp BP Pulse Ox O2 Del Method O2 Flow Rate 99.8 F H 78 17 127/59 L 94 L Venturi Mask 15 05/25/25 08:00 05/25/25 08:00 05/25/25 08:00 05/25/25 08:00 05/25/25 08:00 05/25/25 08:00 05/25/25 08:00 FiO2 50 05/25/25 08:00 Laboratory Results - last 24 hr 05/24/25 15:25: WBC 16.5 H, RBC 4.92, Hgb 14.8, Hct 44.2, MCV 89.8, MCH 30.1, MCHC 33.5, RDW 12.6, Plt Count 290, MPV 9.3, Neut % (Auto) 84.0 H, Lymph % (Auto) 9.7 L, Mcpherson % (Auto) 4.7, Eos % (Auto) 0.4, Baso % (Auto) 0.6, Neut # (Auto) 13.9 H, Lymph # (Auto) 1.6, Mcpherson # (Auto) 0.8, Eos # (Auto) 0.1, Baso # (Auto) 0.1, Sodium 138, Potassium 4.0, Chloride 100, Carbon Dioxide 27, Anion Gap 15.0, BUN 16, Creatinine 0.70, Estimated Creat Clear 39, Estimated GFR 80, Est GFR ( Amer) 96, Glucose 176 H, Lactate 3.6 H, Uric Acid 4.3, Calcium 9.2, Magnesium 1.5 L, Total Bilirubin 0.7, AST 36, ALT 19, Alkaline Phosphatase 86, Total Creatine Kinase 38, Troponin I < 0.01, NT-Pro-B Natriuret Pep 181, Total Protein 7.8, Albumin 4.7, Globulin 3.1, Albumin/Globulin Ratio 1.5 05/24/25 16:00: Urine Color Yellow, Urine Appearance Clear, Urine pH 6.0, Ur Specific [place] >= 1.030, Urine Protein 1+ A, Urine Glucose (UA) Negative, Urine Ketones 1+, Urine Blood Negative, Urine Nitrate Negative, Urine Bilirubin Negative, Urine Urobilinogen 0.2, Ur Leukocyte Esterase Negative, Urine RBC None, Urine WBC 5-10, Ur Squamous Epith Cells None, Urine Bacteria 1+, Urine Mucus 1+ 05/24/25 19:00: Troponin I < 0.01 05/24/25 21:30: POC Glucose 195 H 05/24/25 21:55: Lactate 2.5 H, Troponin I < 0.01 05/25/25 00:23: Lactate 1.7 05/25/25 05:34: WBC 12.6 H, RBC 4.56, Hgb 13.5, Hct 41.8, MCV 91.7, MCH 29.2, MCHC 31.8, RDW 12.9, Plt Count 227, MPV 9.5, Neut % (Auto) 82.5 H, Lymph % (Auto) 5.6 L, Mcpherson % (Auto) 10.1 H, Eos % (Auto) 1.0, Baso % (Auto) 0.5, Neut # (Auto) 10.4 H, Lymph # (Auto) 0.7, Mcpherson # (Auto) 1.3 H, Eos # (Auto) 0.1, Baso # (Auto) 0.1, Sodium 136, Potassium 3.7, Chloride 104, Carbon Dioxide 28, Anion Gap 7.7, BUN 14, Creatinine 0.70, Estimated Creat Clear 43, Estimated GFR 80, Est GFR ( Amer) 96, Glucose 165 H, Lactate 1.0, Calcium 8.4, Magnesium 2.1 D, Vitamin B12 391, Procalcitonin 0.098, TSH 2.46 05/25/25 06:12: POC Glucose 162 H I & O for Labs for Last 24 Hours: Intake & Output 05/22/25 05/23/25 05/24/25 05/25/25 23:59 23:59 23:59 23:59 Intake Total 50 / 290 240 / 240 Output Total 0 / 0 Balance 50 / 290 240 / 240 Weight 143 lb 2 oz 142 lb 13.753 oz Head: Present normocephalic and atraumatic Additional findings:: Left hip: Shortened externally rotated.. Sensation intact. Distal pulses intact. X-rays show displaced left femoral neck fracture Results Labs 05/25/25 05:34 05/25/25 05:34 Labs: Abnormal lab results 05/24/25 05/24/25 05/24/25 Range/Units 15:25 16:00 21:30 WBC 16.5 H (4.8-10.8) K/mm3 Neut % (Auto) 84.0 H (37.0-80.0) % Lymph % (Auto) 9.7 L (10-50) % Mcpherson % (Auto) (1.7-9.3) % Neut # (Auto) 13.9 H (1.8-7.8) K/mm3 Mcpherson # (Auto) (0.1-1.0) K/mm3 Glucose 176 H (74-100) mg/dl POC Glucose 195 H (70-110) gm/dL Lactate 3.6 H (0.7-2.1) mmol/L Magnesium 1.5 L (1.6-2.3) mg/dl Urine Protein 1+ A (Negative) 05/24/25 05/25/25 05/25/25 Range/Units 21:55 05:34 06:12 WBC 12.6 H (4.8-10.8) K/mm3 Neut % (Auto) 82.5 H (37.0-80.0) % Lymph % (Auto) 5.6 L (10-50) % Mcpherson % (Auto) 10.1 H (1.7-9.3) % Neut # (Auto) 10.4 H (1.8-7.8) K/mm3 Mcpherson # (Auto) 1.3 H (0.1-1.0) K/mm3 Glucose 165 H (74-100) mg/dl POC Glucose 162 H (70-110) gm/dL Lactate 2.5 H (0.7-2.1) mmol/L Magnesium (1.6-2.3) mg/dl Urine Protein (Negative) H & H 05/24/25 05/25/25 Range/Units 15:25 05:34 Hgb 14.8 13.5 (12.2-16.2) g/dL Hct 44.2 41.8 (37.0-47.0) % All other labs normal. Assessment and Plan *Assessment and plan (1) Left displaced femoral neck fracture: Status: Acute Category: Medical Code(s): S72.002A - Fracture of unspecified part of neck of left femur, initial encounter for closed fracture Plan Patient is on aspirin and Plavix. She had a 2D echo performed this morning. Pulmonary report not yet available. Plans pulmonary early will be to proceed with surgical intervention tomorrow. Based on stopping the Plavix is not optimal she will be at increased risk for bleeding complications however is not appropriate to allow her to lay for a week in the hospital with a femoral neck fracture prior to proceeding with surgical intervention as the complications will be higher. PROPOSED SURGERY: Hemiarthroplasty left hip the risks and benefits of the proposed surgery were discussed in depth with the patient. Potential complications including inherent risk of anesthesia, infection, neurovascular damage, DVT, and rare but real potential loss of limb or life were all reviewed. Patient voices understanding and seems to understand to my satisfaction and wishes to proceed with surgery. I gave them adequate time to ask any questions they have pertaining to this surgery and answered all of them to the best of my ability. I gave them no guarantees in regards to outcomes of this surgery.
--- NOTE | 2025-05-25 10:36 | SW/DCPLANNER ---
Addendum entered by [facility] 05/29/25 15:42: Report phone # [phone] Addendum entered by [facility] 05/29/25 13:29: Per Jerrica w/ [facility] precert will be started today. I will update patient/family and Geoffrey / [place] [facility]. Corrected fax #: [phone]. Addendum entered by [facility] 05/29/25 10:38: Per Elan w/ [facility] ([phone]) they do have female beds open and do accept [employer] Medicare. Patient information will be faxed to Elan at [phone]. The contact phone number for admissions at [facility] is [phone]. CM will continue to follow up. Addendum entered by [facility] 05/29/25 09:26: Patient/family have requested that patient information be faxed to [facility] for their skilled/swingbed unit. I did leave a BRENDA w/ Jeannette in Admissions and currently waiting on a call back. Per patient/family is [facility] is unable to accept they prefer [facility]. I will continue to follow up. Addendum entered by [facility] 05/26/25 13:35: I have asked the Agricultural Service Worker to fax updated PT/OT evaluations if completed over the weekend to [facility] at [phone]. Addendum entered by [facility] 05/26/25 10:47: Sandra / [facility] is unable to accept patient. I will update patient/family. I will also continue to update Geoffrey / [place] [facility]. Discharge date is unknown at this time. Addendum entered by [facility] 05/25/25 13:56: Geoffrey / [facility] is able to accept patient. [facility] Dis[facility] date is unknown at this time. Original Note: I spoke w/ patient and her daughter regarding plans once medically stable for discharge. Ortho was consulted and plans for surgery tomorrow. Per daughter patient will need rehab due to multiple stairs in the home. Patient is agreeable to placement at [facility] or [facility]. Patient information will be faxed this AM. Discharge date is unknown at this time. CM will continue to follow up.
[2025-05-25] MEDS: IPRATROPIUM/ALBUTEROL 3 ML NEB IH (10:43)
--- NOTE | 2025-05-25 11:56 | P.PN_ITS ---
<Statement entered by Adolfo Gonzales MD - 05/25/25 14:27> Agree with plan of care as outlined by the ANESTHESIA TECH. Subjective *Date: 05/25/25 *Time: 14:07 Interval history: Patient is lying in bed this morning, complains of moderate to severe pain throughout the evening. Patient received Dilaudid IV, O2 saturation dropped drastically, requiring Venturi mask. Transition patient to oral pain medication, patient currently on nasal cannula 4 L oxygen saturation greater than 90%. Patient currently rating pain 6/10. Current plans for left hip arthroplasty tomorrow evening due to Plavix and aspirin. Medical Exam Vital signs and Labs for Last 24 Hours: Vital Signs Temp Pulse Pulse Resp BP BP Pulse Ox 05/25/25 11:29 97.9 F 85 18 116/64 89 L 05/25/25 10:44 85 05/25/25 10:44 81 05/25/25 10:44 90 L 05/25/25 08:00 99.8 F H 78 17 127/59 L 94 L 05/25/25 08:00 95 05/25/25 06:54 05/25/25 05:00 05/25/25 04:45 86 L 05/25/25 04:00 97.8 F 95 H 14 141/61 H 64 L 05/25/25 03:00 05/25/25 01:00 05/24/25 23:00 05/24/25 21:00 05/24/25 20:00 91 L 05/24/25 20:00 98.4 F 72 16 144/58 H 94 L 05/24/25 18:40 05/24/25 18:06 97.9 F 80 20 145/70 H 05/24/25 16:00 71 167/86 H 96 05/24/25 15:49 92 L 05/24/25 15:42 98.1 F 73 20 199/85 H 92 L 05/24/25 15:36 71 199/82 H 92 L 05/24/25 15:17 78 181/61 H 93 L O2 Del Method O2 Flow Rate FiO2 05/25/25 11:29 Nasal Cannula 4 05/25/25 10:44 05/25/25 10:44 05/25/25 10:44 Nasal Cannula 4 05/25/25 08:00 Venturi Mask 15 05/25/25 08:00 Venturi Mask 12 50 05/25/25 06:54 Venturi Mask 12 05/25/25 05:00 Venturi Mask 12 05/25/25 04:45 Nasal Cannula 6 05/25/25 04:00 Room Air 05/25/25 03:00 Room Air 05/25/25 01:00 Room Air 05/24/25 23:00 Room Air 05/24/25 21:00 Room Air 05/24/25 20:00 Room Air 05/24/25 20:00 Room Air 05/24/25 18:40 Room Air 05/24/25 18:06 Room Air 05/24/25 16:00 05/24/25 15:49 Room Air 05/24/25 15:42 Room Air 05/24/25 15:36 05/24/25 15:17 Intake and Output 05/24/25 05/25/25 05/25/25 23:59 07:59 15:59 Intake Total 50 / 290 240 / 240 Output Total 0 / 0 Balance 50 / 290 240 / 240 0 / 240 Intake: Intake, Oral Amount 240 / 240 Intake, Total IV Amount 50 / 50 Magnesium Sulfate in Water 2 gm 50 / 50 In 50 ml @ 50 mls/hr IV ONCE ONE Rx#:[id number] Output: Output, Urine Amount 0 / 0 Other: Number of Unmeasured Voids 0 Weight 64.92 kg 64.8 kg Patient Weight 05/25/25 23:59 Weight 64.8 kg Laboratory Results - last 24 hr 05/24/25 15:25: WBC 16.5 H, RBC 4.92, Hgb 14.8, Hct 44.2, MCV 89.8, MCH 30.1, MCHC 33.5, RDW 12.6, Plt Count 290, MPV 9.3, Neut % (Auto) 84.0 H, Lymph % (Auto) 9.7 L, [place] % (Auto) 4.7, Eos % (Auto) 0.4, Baso % (Auto) 0.6, Neut # (Auto) 13.9 H, Lymph # (Auto) 1.6, [place] # (Auto) 0.8, Eos # (Auto) 0.1, Baso # (Auto) 0.1, Sodium 138, Potassium 4.0, Chloride 100, Carbon Dioxide 27, Anion Gap 15.0, BUN 16, Creatinine 0.70, Estimated Creat Clear 39, Estimated GFR 80, Est GFR ( Amer) 96, Glucose 176 H, Lactate 3.6 H, Uric Acid 4.3, Calcium 9.2, Magnesium 1.5 L, Total Bilirubin 0.7, AST 36, ALT 19, Alkaline Phosphatase 86, Total Creatine Kinase 38, Troponin I < 0.01, NT-Pro-B Natriuret Pep 181, Total Protein 7.8, Albumin 4.7, Globulin 3.1, Albumin/Globulin Ratio 1.5 05/24/25 16:00: Urine Color Yellow, Urine Appearance Clear, Urine pH 6.0, Ur Specific [place] >= 1.030, Urine Protein 1+ A, Urine Glucose (UA) Negative, Urine Ketones 1+, Urine Blood Negative, Urine Nitrate Negative, Urine Bilirubin Negative, Urine Urobilinogen 0.2, Ur Leukocyte Esterase Negative, Urine RBC None, Urine WBC 5-10, Ur Squamous Epith Cells None, Urine Bacteria 1+, Urine Mucus 1+ 05/24/25 19:00: Troponin I < 0.01 05/24/25 21:30: POC Glucose 195 H 05/24/25 21:55: Lactate 2.5 H, Troponin I < 0.01 05/25/25 00:23: Lactate 1.7 05/25/25 05:34: WBC 12.6 H, RBC 4.56, Hgb 13.5, Hct 41.8, MCV 91.7, MCH 29.2, MCHC 31.8, RDW 12.9, Plt Count 227, MPV 9.5, Neut % (Auto) 82.5 H, Lymph % (Auto) 5.6 L, [place] % (Auto) 10.1 H, Eos % (Auto) 1.0, Baso % (Auto) 0.5, Neut # (Auto) 10.4 H, Lymph # (Auto) 0.7, [place] # (Auto) 1.3 H, Eos # (Auto) 0.1, Baso # (Auto) 0.1, Sodium 136, Potassium 3.7, Chloride 104, Carbon Dioxide 28, Anion Gap 7.7, BUN 14, Creatinine 0.70, Estimated Creat Clear 43, Estimated GFR 80, Est GFR ( Amer) 96, Glucose 165 H, Lactate 1.0, Calcium 8.4, Magnesium 2.1 D, Vitamin B12 391, Procalcitonin 0.098, TSH 2.46 05/25/25 06:12: POC Glucose 162 H I & O for Labs for Last 24 Hours: Intake & Output 05/22/25 05/23/25 05/24/25 05/25/25 23:59 23:59 23:59 23:59 Intake Total 50 / 290 240 / 240 Output Total 0 / 0 Balance 50 / 290 240 / 240 Weight 64.92 kg 64.8 kg Constitutional: Present mild distress, average body habitus, chronically ill appearing and cooperative Head: Present atraumatic and normocephalic ENT: Present normal exam Neck: Present normal inspection Respiratory: Present prolonged expiratory phase, wheezes, normal respiratory effort and symmetric chest movement; Absent rhonchi or crackles Cardiac: Present Reg Rate and Rhythm GI: Present soft and normal bowel sounds; Absent distention or tenderness Rectal (female): Present deferred (female): Present deferred Comment:: Hoffman catheter in place Extremities: Present normal inspection and tenderness (Left hip) Skin: Present intact and dry; Absent erythema Neuro: Present Grossly Intact, alert, awake, oriented x 3 and moves all extremities Assessment and Plan *Assessment and plan (1) Fall: Status: Acute Qualifiers: Encounter type: initial encounter Qualified Code(s): W19.XXXA - Unspecified fall, initial encounter Category: Medical Code(s): W19.XXXA - Unspecified fall, initial encounter (2) Left displaced femoral neck fracture: Status: Acute Category: Medical Code(s): S72.002A - Fracture of unspecified part of neck of left femur, initial encounter for closed fracture (3) Hyperglycemia: Status: Acute Category: Medical Code(s): R73.9 - Hyperglycemia, unspecified (4) Hypomagnesemia: Status: Acute Category: Medical Code(s): E83.42 - Hypomagnesemia (5) Leukocytosis: Status: Acute Qualifiers: Leukocytosis type: unspecified Qualified Code(s): D72.829 - Elevated white blood cell count, unspecified Category: Medical Code(s): D72.829 - Elevated white blood cell count, unspecified (6) Mass of adrenal gland: Status: Acute Category: Medical Code(s): E27.8 - Other specified disorders of adrenal gland Plan Mr. Hills is a 84-year-old female who presented to the emergency department yesterday after a fall at home. She denied loss of consciousness but was found to have a displaced left femoral neck fracture. Hospital medicine was contacted for admission, patient was admitted to hospital medicine. Plan of care as follows: #Left displaced femoral neck fracture ?Patient complains of 6/10 pain this morning. States that the pain is 10/10 with movement. Hoffman catheter was placed overnight. Patient receiving [place] 5/325 every 4 hours as needed for pain control. For severe pain patient has morphine 2 mg q4h ordered. Monitoring for toxicity. Prefer oral pain medication versus IV due to hypoxic event overnight. Patient currently wearing 4 L nasal cannula, O2 saturation greater than 90%. ?Orthopedics, Dr. Ortega saw patient this morning. Plans for left hip hemiarthroplasty tomorrow afternoon. Holding Plavix and aspirin for 48 hours prior to procedure. ?PT/OT consulted, spoke with patient and family about SNF placement post surgery. They are open to discussing the options. Patient states she does live alone and has multiple areas of stairs. #COPD #Acute hypoxia ?Patient had event overnight where O2 saturation dropped to mid 60s after a dose of IV pain medication. Patient was placed on Venturi mask at 12 L. Patient O2 recovered into the upper 80s. Transitioned this morning to 4 L nasal cannula, wean as tolerated. O2 saturation greater than 90%. Patient has long history of COPD and is currently a tobacco user. ?DuoNebs every 6 hours as needed ordered. Pulmonology consulted. #Type 2 diabetes: ACHS fingersticks, SSI. Hold metformin and glyburide in the inpatient setting. Patient appears to be well-controlled, A1c 03/2025 was 6.3%. #Hypomagnesia, resolved: Patient received 2 g of magnesium IV x 1, repeat magnesium 2.1. Continuing to monitor. Magnesium ordered for the a.m. #Leukocytosis with left shift: Currently there appears to be no obvious signs of infection, WBC this morning stable at 12.6. Likely elevated on admission due to trauma. Blood cultures are pending. Procalcitonin unremarkable. CBC ordered for the a.m. Chest x-ray shows no acute findings. #Mass of the adrenal gland: Currently patient is without any symptomology that denotes adrenal gland dysfunction. Patient can follow-up outpatient at discharge. #Coronary artery disease: Patient has a history of CAD with stent placement, currently holding Plavix 75 mg and aspirin 81 mg in anticipation of surgery. #Tobacco use disorder: Discussed smoking sensation with patient, nicotine patches ordered. Full code Diabetic diet?n.p.o. at midnight Bed rest VTE?1 times dose Lovenox this morning, holding for surgery tomorrow
[2025-05-25] MEDS: METOPROLOL TARTRATE 50MG TABLET 100 MG PO (12:15)
[2025-05-25] MEDS: humaLOG 100 UNITS/ML 10ML VIAL (SSI) SUBCUT (12:25)
--- NOTE | 2025-05-25 12:47 | XR_ITS ---
FINAL REPORT CLINICAL HISTORY: Hypoxia COMPARISON: 05/24/2025 FINDINGS: A portable view of the chest was obtained. Cardiac and mediastinal silhouettes are within normal limits. The lungs are clear. There is no pleural effusion or pneumothorax. IMPRESSION: No acute process on this portable exam. Reviewed, Interpreted and Dictated by Prudence Osborne MD Transcribed by Katya Holt Authenticated and [facility]
[2025-05-25 12:50] LABS: POC Glucose,Bedside 235 gm/dL (70-110)
[2025-05-25 13:22] LABS: ABG HCO3 25.0 mmhg (22.0-26.0); ABG PCO2 45.8 mmhg (35.0-45.0); ABG PH 7.36 mmol/L (7.35-7.45); ABG PO2 51.1 mmhg (80-100); ABG TCO2 26.4 mmhg (23-27)
[2025-05-25 13:23] LABS: Source Left Radial
[2025-05-25 16:36] LABS: POC Glucose,Bedside 216 gm/dL (70-110)
--- NOTE | 2025-05-25 20:40 | PC.NURSE ---
patient dropping to 84%-89% on 4L NC - notified RT, placed on Venti Mask (was reported that was done the night prior and worked for the patient)
[2025-05-25] MEDS: MORPHINE 2MG/ML SYRINGE 2 MG IV (21:04)
--- NOTE | 2025-05-25 21:10 | PC.NURSE ---
Addendum entered by Blaire rL RN 05/25/25 21:20: receptively removing Venti and dropping to 84% - continuing to educated patient of the importance of wear the mask, patient confused and not understanding. replacing BATH MIXER monitor frequently r/t patient removing. Original Note: patient is very confused - refusing PO medications. alert to name and birthday
[2025-05-25 21:32] LABS: POC Glucose,Bedside 155 gm/dL (70-110)
--- NOTE | 2025-05-25 22:51 | PC.NURSE ---
patient will not leave Venti on - dropping to 79% when taking off - notified hospitalist of decline in status and he came to bedside to assess - collected VBG and resp. panel
[2025-05-25 22:53] LABS: Coronavirus 19, PCR Not Detected (NotDetected); Influenza A, PCR Not Detected (NotDetected); Influenza B, PCR Not Detected (NotDetected)
[2025-05-25 22:56] LABS: Lactate Venous 1.1 mmol/L (0.4-2.0); VBG HCO3 26.2 mmol/L (23-30); VBG PCO2 43.8 mmol/L (35-51); VBG PH 7.40 mmol/L (7.31-7.41); VBG PO2 110.3 mmol/L (28-40)
--- NOTE | 2025-05-25 23:08 | CT_ITS ---
PROCEDURE INFORMATION: Exam: CTA Chest With Contrast Exam date and time: 05/26/2025 12:02 AM Age: 84 years old Clinical indication: Shortness of breath; Additional info: Hypoxemia TECHNIQUE: Imaging protocol: Computed tomographic angiography of the chest with contrast. Exam focused on the arteries. 3D rendering (Not supervised by radiologist): MIP and/or 3D reconstructed images were created by the technologist. Radiation optimization: All CT scans at this facility use at least one of these dose optimization techniques: automated exposure control; mA and/or kV adjustment per patient size (includes targeted exams where dose is matched to clinical indication); or iterative reconstruction. Contrast material: ISOVUE; Contrast volume: 75 ml; Contrast route: INTRAVENOUS (IV); COMPARISON: CT ANGIO CHEST PE PROTOCOL 07/31/2024 11:36 AM FINDINGS: Pulmonary arteries: Normal. No pulmonary emboli. Aorta: Unremarkable. No aortic aneurysm. No aortic dissection. Other arteries: There is significant narrowing of the proximal ICA bilaterally which are incompletely evaluated on this examination. Lungs: There are compressive changes at the posterior aspect of both lower lobes. There is peribronchial thickening predominantly involving the lower lobes with areas of mucous plugging present. Pleural spaces: There are small bilateral pleural effusions. Heart: Unremarkable. No cardiomegaly. No pericardial effusion. Lymph nodes: There are small nonspecific mediastinal and hilar lymph nodes. Adrenal glands: There is a stable 20 mm left adrenal nodule. Delete that Bones/joints: There are moderate degenerative changes of the thoracic spine severe degenerative changes of the cervical spine. No acute fracture. There are moderate degenerative changes of both glenohumeral joints. Soft tissues: Unremarkable. IMPRESSION: 1. No pulmonary embolus. 2. Bilateral lower lobe bronchitis. 3. Compressive changes of the posterior aspect of both lower lobes and small bilateral pleural effusions. 4. Significant narrowing of the proximal ICA bilaterally incompletely evaluated on this exam. Further evaluation with nonemergent carotid duplex or CTA could be performed as clinically indicated. 5. Other nonemergent findings as noted.
[2025-05-26] VITALS (34 sets, daily range): BP systolic 99–152; BP diastolic 43–82; PULSE 56–92; RESP 13–20; TEMP 36.9–37.9; O2SAT 85–99; BMI 26.3
[2025-05-26] MEDS: SODIUM CHLORIDE 0.9% 10ML SYR (RAD ONLY) 10 ML IV (00:14)
[2025-05-26] MEDS: ONDANSETRON 4MG/2ML VIAL 4 MG IV (00:14)
[2025-05-26] MEDS: 0.9 % SODIUM CHLORIDE 50 ML VIAL IV (00:14)
[2025-05-26] MEDS: IOPAMIDOL-370 (76%);100ML BOTTLE 75 ML IV (00:14)
[2025-05-26] MEDS: FUROSEMIDE 40MG/4ML VIAL 40 MG IV ×2 (00:23→08:25)
--- NOTE | 2025-05-26 00:24 | P.EN_ITS ---
<Statement entered by Hong Stewart MD - 05/26/25 15:03> Rounded on patient after nurse practitioner. Personally examined and interviewed patient. Agree with exam findings and care plan as documented. Contacted by nursing staff informing that the patient is requiring Ventimask at 40%. Presented to patient's bedside. Assessment complete: Patient is alert but not oriented. Only oriented to 1. Somewhat diaphoretic, tachypneic, diminished breath sounds are noted bilaterally, patient without any nasal flaring or accessory muscle usage. I obtained a CTA of the chest and per my independent review there is no filling defects consistent with pulmonary embolism, patient has bilateral lower lobe effusions that are small with superimposed pneumonia-is still pending final read by the radiologist. Noted patient intake and output is net positive. Patient had a intake of 1720 with an output of 100 mL with a net positive of 1620. Discussed with patient after returning from CT scan she is more alert. She reports being prescribed Lasix as an outpatient. Reviewed patient's current vital signs patient had a blood pressure of 107. Requested that new blood pressure be obtained and if greater than 120 systolically will give 40 mg of Lasix IV. Patient has multiple drug allergies noted will cover for pneumonia with meropenem 1 g every 8 hours. If patient is unable to tolerate Lasix will place patient on BiPAP support with an IPAP of 10 and EPAP of 5. Will update attending physician in the AM. I discussed treatment plan with patient and nursing staff. Will continue to monitor on MedSurg for now. Will add telemetry.
[2025-05-26] MEDS: MEROPENEM 1 GM in 0.9 % SODIUM CHLORIDE 100 ML IV (00:30)
--- NOTE | 2025-05-26 00:42 | PC.NURSE ---
took patient down for CTA - patient was nauseous, tx per oct. once back from CT, hospitalist at bedside - starting lasix and abx - monitor output during the trip to CT, patient became more awake and started to realize where she was at.
--- NOTE | 2025-05-26 02:40 | PC.NURSE ---
patient a&0x1 refusing venti and cardiac/dado operator monitoring, cyanosis of lips - last known oxygen was 79% on room air - hospitalist at bedside to assess patient for orders. placed mits on patient, administered zyprexa per oct. patient recovered to 92% with venti on and mits
[2025-05-26] MEDS: OLANZapine 10 MG VIAL IM (02:43)
[2025-05-26] MEDS: METOPROLOL TARTRATE 50MG TABLET 100 MG PO (08:24)
--- NOTE | 2025-05-26 08:28 | P.PN_ITS ---
<Statement entered by Hong Stewart MD - 05/26/25 15:03> Rounded on patient after nurse practitioner. Personally examined and interviewed patient. Agree with exam findings and care plan as documented. Subjective *Date: 05/26/25 *Time: 10:24 Interval history: Patient lying in bed resting with eyes closed. Tentatively planning for surgery today at noon. Patient had episode of hypoxia overnight, was placed on Venturi mask at 15 L. Patient is now weaned to 3 L nasal cannula oxygen saturation greater than 90%. Medical Exam Vital signs and Labs for Last 24 Hours: Vital Signs Temp Pulse Pulse Resp BP Pulse Ox O2 Del Method 05/26/25 06:23 Venturi Mask 05/26/25 05:00 Venturi Mask 05/26/25 04:00 75 05/26/25 03:00 Venturi Mask 05/26/25 01:00 Venturi Mask 05/26/25 00:50 90 05/26/25 00:00 91 L Venturi Mask 05/26/25 00:00 98.5 F 88 18 151/82 H 91 L Venturi Mask 05/25/25 23:00 Room Air 05/25/25 21:00 Venturi Mask 05/25/25 20:00 Venturi Mask 05/25/25 20:00 97.8 F 74 18 107/61 L 90 L Nasal Cannula 05/25/25 19:00 Nasal Cannula 05/25/25 16:00 88 L Nasal Cannula 05/25/25 16:00 98.8 F 77 16 159/66 H 88 L Nasal Cannula 05/25/25 15:00 Nasal Cannula 05/25/25 13:00 Nasal Cannula 05/25/25 11:29 97.9 F 85 18 116/64 89 L Nasal Cannula 05/25/25 11:00 Nasal Cannula 05/25/25 10:44 85 05/25/25 10:44 81 05/25/25 10:44 90 L Nasal Cannula 05/25/25 09:00 Nasal Cannula O2 Flow Rate FiO2 05/26/25 06:23 05/26/25 05:00 05/26/25 04:00 05/26/25 03:00 05/26/25 01:00 05/26/25 00:50 05/26/25 00:00 15 50 05/26/25 00:00 15 50 05/25/25 23:00 05/25/25 21:00 05/25/25 20:00 05/25/25 20:00 4 05/25/25 19:00 4 05/25/25 16:00 4 05/25/25 16:00 4 05/25/25 15:00 4 05/25/25 13:00 4 05/25/25 11:29 4 05/25/25 11:00 4 05/25/25 10:44 05/25/25 10:44 05/25/25 10:44 4 05/25/25 09:00 4 Intake and Output 05/25/25 05/26/25 05/26/25 23:59 07:59 15:59 Intake Total 1240 / 1960 100 / 100 Output Total 100 / 100 1600 / 1600 Balance 1140 / 1860 -1500 / -1500 Intake: Intake, Oral Amount 240 / 960 Intake, Total IV Amount 1000 / 1000 100 / 100 0.9 % Sodium Chloride 1000ML 1, 1000 / 1000 000 ml @ 75 mls/hr IV .[id number] ALTAGRACIA Rx#:[id number] Meropenem 1 gm In 0.9 % Sodium 100 / 100 Chloride 100 ml @ 100 mls/hr IV Q8H ALTAGRACIA Rx#:[id number] Output: Output, Urine Amount 100 / 100 1600 / 1600 Other: Number of Unmeasured Voids 0 Weight 64.9 kg Patient Weight 05/26/25 23:59 Weight 64.9 kg Laboratory Results - last 24 hr 05/25/25 05:34: Vitamin B12 391, TSH 2.46 05/25/25 12:17: POC Glucose 235 H 05/25/25 12:46: Specimen Source Left radial, O2 % 4 l nc, ABG pH 7.36, ABG pCO2 45.8 H, ABG pO2 51.1 L, ABG HCO3 25.0, ABG Total CO2 26.4, ABG O2 Saturation 85 L*, ABG Base Excess -0.5, Grant Test Acceptable 05/25/25 15:46: POC Glucose 216 H 05/25/25 21:18: POC Glucose 155 H 05/25/25 22:47: SARS-CoV-2 (PCR) Not detected, Influenza Type A (PCR) Not detected, Influenza Type B (PCR) Not detected, RSV (PCR) Not detected, Rhinovirus (PCR) Not detected 05/25/25 22:50: VBG pH 7.40, VBG pCO2 43.8, VBG pO2 110.3 H, VBG HCO3 26.2, VBG Total CO2 27.6 H, VBG O2 Saturation 98.4 H, VBG Base Excess 1.3, VBG Lactic Acid 1.1 I & O for Labs for Last 24 Hours: Intake & Output 05/23/25 05/24/25 05/25/25 05/26/25 23:59 23:59 23:59 23:59 Intake Total 50 / 290 1960 / 1960 100 / 100 Output Total 100 / 100 1600 / 1600 Balance 50 / 290 1860 / 1860 -1500 / -1500 Weight 64.92 kg 64.8 kg 64.9 kg Constitutional: Present mild distress, average body habitus, chronically ill appearing and cooperative Head: Present atraumatic and normocephalic ENT: Present normal exam Neck: Present normal inspection Respiratory: Present prolonged expiratory phase, wheezes, normal respiratory effort and symmetric chest movement; Absent rhonchi or crackles Cardiac: Present Reg Rate and Rhythm GI: Present soft and normal bowel sounds; Absent distention or tenderness Rectal (female): Present deferred (female): Present deferred Comment:: Hoffman catheter in place Extremities: Present normal inspection and tenderness (Left hip) Skin: Present intact and dry; Absent erythema Neuro: Present Grossly Intact, alert, awake, oriented x 3 and moves all extremities Assessment and Plan *Assessment and plan (1) Fall: Status: Acute Qualifiers: Encounter type: initial encounter Qualified Code(s): W19.XXXA - Unspecified fall, initial encounter Category: Medical Code(s): W19.XXXA - Unspecified fall, initial encounter (2) Left displaced femoral neck fracture: Status: Acute Category: Medical Code(s): S72.002A - Fracture of unspecified part of neck of left femur, initial encounter for closed fracture (3) Hyperglycemia: Status: Acute Category: Medical Code(s): R73.9 - Hyperglycemia, unspecified (4) Hypomagnesemia: Status: Acute Category: Medical Code(s): E83.42 - Hypomagnesemia (5) Leukocytosis: Status: Acute Qualifiers: Leukocytosis type: unspecified Qualified Code(s): D72.829 - Elevated white blood cell count, unspecified Category: Medical Code(s): D72.829 - Elevated white blood cell count, unspecified (6) Mass of adrenal gland: Status: Acute Category: Medical Code(s): E27.8 - Other specified disorders of adrenal gland Plan Mr. Hills is a 84-year-old female who presented to the emergency department after a fall at home. She denied loss of consciousness but was found to have a displaced left femoral neck fracture. Hospital medicine was contacted for admission, patient was admitted to hospital medicine. Plan of care as follows: #Left displaced femoral neck fracture ?Patient resting this morning. Currently on 3 L nasal cannula. Hoffman catheter in place. Patient had episode of hypoxia overnight, was placed on Venturi mask 15 L. Patient was taken for chest CTA which showed bilateral small effusions, patient given 40 mg Lasix IV, output of 1.5 L overnight. Scheduled Lasix 40 mg IV daily. ?Dr. Ortega plans for left hip hemiarthroplasty today at noon. Holding Plavix and aspirin for 48 hours prior to procedure. ?PT/OT consulted, spoke with patient and family about SNF placement post surgery. They are open to discussing the options. Patient states she does live alone and has multiple areas of stairs. #COPD #Acute hypoxia ?DuoNebs every 6 hours as needed ordered. Pulmonology consulted. ?Patient does not appear in respiratory distress this morning. Resting comfortably with 3 L nasal cannula oxygen saturation greater than 90%. #Hypertension: Continue amlodipine?valsartan daily for hypertension. #Type 2 diabetes: ACHS fingersticks, SSI. Hold metformin and glyburide in the inpatient setting. Patient appears to be well-controlled, A1c 03/2025 was 6.3%. #Hypomagnesia, resolved: Patient received 2 g of magnesium IV x 1, repeat magnesium 2.1. Continuing to monitor. Magnesium pending. #Leukocytosis with left shift: WBC was stable yesterday at 12.6, CBC pending. Procalcitonin unremarkable. CBC ordered for the a.m. chest CTA shows bronchitis, small pleural effusions bilaterally. Meropenem 1 g every 12 hours ordered IV empirically. #Mass of the adrenal gland: Currently patient is without any symptomology that denotes adrenal gland dysfunction. Patient can follow-up outpatient at discharge. #Coronary artery disease: Patient has a history of CAD with stent placement, currently holding Plavix 75 mg and aspirin 81 mg in anticipation of surgery. #Tobacco use disorder: Discussed smoking sensation with patient, nicotine patches ordered. Full code N.p.o., diabetic diet post procedure Bed rest VTE?IPC's
[2025-05-26 10:15] LABS: Chloride 96 mmol/L (98-107); Potassium 4.1 mmoL/L (3.5-5.1); Sodium 137 mmol/L (136-145)
[2025-05-26 10:17] LABS: Hematocrit 47.3 % (37.0-47.0); Hemoglobin 15.5 g/dL (12.2-16.2); Immature Granulocytes % 0.4 %; Mean Corpuscular HGB Conc 32.8 g/dL (31.8-35.4); Mean Corpuscular Hemoglobin 30.2 pg (27.0-31.2); Mean Corpuscular Volume 92.2 fl (81-99); Nucleated Red Blood Cells % 0 %; Platelet Count 234 K/mm3 (142-424); Red Blood Count 5.13 M/mm3 (4.20-5.40); Red Cell Distribution Width-SD 43.2 fL; White Blood Count 12.0 K/mm3 (4.8-10.8)
[2025-05-26 10:18] LABS: Anion Gap 12.1 mEq/L (5-15); Blood Urea Nitrogen 15 mg/dl (7-17); Carbon Dioxide 33 mmol/L (22.0-30.0); Creatinine Clearance Estimated 43 mL/min (50-200); Creatinine,Serum 0.70 mg/dl (0.52-1.04); Estimated Glomerular Filt Rate 80 ml/min (>60); GFR (African American) 96 ML/MIN (>60)
[2025-05-26 10:19] LABS: Calcium 9.1 mg/dl (8.4-10.2); Glucose 172 mg/dl (74-100); Magnesium 1.9 mg/dl (1.6-2.3)
[2025-05-26] MEDS: IPRATROPIUM/ALBUTEROL 3 ML NEB IH ×3 (11:31→21:56)
--- NOTE | 2025-05-26 11:32 | EXP.PULM.CON ---
History of Present Illness History of present illness: Ms. Hills is a 84-year-old female around [id number] smoking history not using any oxygen supplementation at baseline and using inhaler therapy presented to the ER status post rib fracture found to have increasing oxygen requirements and pulmonary was called for further evaluation and management. [facility] Disclaimer: The information contained in this section may have been updated after the patient was seen, as this information can be updated by other users. Medical History (Updated 05/26/25 @ 11:50 by Charles Herrera MD) Pleural effusion, bilateral Vertigo Transient neurological symptoms Encounter for immunization Thyroid nodule Visual hallucination Right-sided headache Coronary artery calcification seen on CT scan Pulmonary nodule Vitamin D deficiency Type 2 diabetes mellitus without complications Hyperlipidemia Diabetes mellitus HTN (hypertension) Degenerative joint disease (DJD) of lumbar spine Surgical History H/O removal of cyst History of cholecystectomy Hx of cataract surgery Family History Mother Coronary artery disease Grandmother Stroke Brother Heart attack Social History (Updated 05/24/25 @ 18:16 by Camille Anna, RN) Smoking Status: Current every day smoker tobacco type: cigarettes packs per day: 1 alcohol intake: never current occupational status: other Travel in the last 8 weeks?: None household members: other housing: house Have you lived/traveled outside US in past 30 days?: No Contact w/someone who lives/traveled outside US past 30 days?: No Exposure to someone with infectious disease in past 14 days?: No Do you have a fever (greater than 100.4 F or 38 C)?: No Have you tested positive for COVID-19?: No Exposed to someone with COVID-19 in past 14 days?: No Do you have a sore throat?: No Do you have a cough?: No Do you have any weakness?: No Are you experiencing any nausea/vomitting?: No Do you have any diarrhea?: No Are you experiencing any unusual bleeding?: No Do you have any muscle aches/pain?: No Do you have any abdominal pain?: No Are you experiencing loss of taste or smell?: No Review of Systems Review of Systems Review of systems (narrative): Limited as patient only alert and oriented x 1 *Cardiovascular Cardiovascular: Reports dyspnea on exertion *Respiratory Respiratory: Reports chest congestion, Reports cough and Reports dyspnea on exertion *Gastrointestinal Gastrointestinal: Denies abdominal pain *Musculoskeletal Musculoskeletal: Reports back pain, Reports deformity, Reports myalgias and Reports other (No small joint swelling or Pain) Pulmonology Exam Inpatient Vital signs and Labs for Last 24 Hours: Temp Pulse Resp BP Pulse Ox O2 Del Method O2 Flow Rate 100.3 F H 92 H 18 110/54 L 90 L Room Air 15 05/26/25 11:14 05/26/25 11:14 05/26/25 11:14 05/26/25 11:14 05/26/25 11:14 05/26/25 11:14 05/26/25 08:00 FiO2 50 05/26/25 00:00 Laboratory Results - last 24 hr 05/25/25 12:17: POC Glucose 235 H 05/25/25 12:46: Specimen Source Left radial, O2 % 4 l nc, ABG pH 7.36, ABG pCO2 45.8 H, ABG pO2 51.1 L, ABG HCO3 25.0, ABG Total CO2 26.4, ABG O2 Saturation 85 L*, ABG Base Excess -0.5, Grant Test Acceptable 05/25/25 15:46: POC Glucose 216 H 05/25/25 21:18: POC Glucose 155 H 05/25/25 22:47: SARS-CoV-2 (PCR) Not detected, Influenza Type A (PCR) Not detected, Influenza Type B (PCR) Not detected, RSV (PCR) Not detected, Rhinovirus (PCR) Not detected 05/25/25 22:50: VBG pH 7.40, VBG pCO2 43.8, VBG pO2 110.3 H, VBG HCO3 26.2, VBG Total CO2 27.6 H, VBG O2 Saturation 98.4 H, VBG Base Excess 1.3, VBG Lactic Acid 1.1 05/26/25 10:00: WBC 12.0 H, RBC 5.13, Hgb 15.5, Hct 47.3 H, MCV 92.2, MCH 30.2, MCHC 32.8, RDW 12.7, Plt Count 234, MPV 9.6, Neut % (Auto) 83.7 H, Lymph % (Auto) 10.5, Clinch % (Auto) 3.3, Eos % (Auto) 1.7, Baso % (Auto) 0.4, Neut # (Auto) 10.0 H, Lymph # (Auto) 1.3, Clinch # (Auto) 0.4, Eos # (Auto) 0.2, Baso # (Auto) 0.1, Sodium 137, Potassium 4.1, Chloride 96 L, Carbon Dioxide 33 H, Anion Gap 12.1, BUN 15, Creatinine 0.70, Estimated Creat Clear 43, Estimated GFR 80, Est GFR ( Amer) 96, Glucose 172 H, Calcium 9.1, Magnesium 1.9 I & O for Labs for Last 24 Hours: Intake & Output 05/23/25 05/24/25 05/25/25 05/26/25 23:59 23:59 23:59 23:59 Intake Total 50 / 290 1960 / 1960 100 / 100 Output Total 100 / 100 1600 / 1600 Balance 50 / 290 1860 / 1860 -1500 / -1500 Weight 143 lb 2 oz 142 lb 13.753 oz 143 lb 1.28 oz Constitutional: Present severe distress Head: Present normocephalic and atraumatic ENT: Present normal exam, normal oropharynx and mucous membranes moist Neck: Present normal inspection and full ROM Respiratory: Present diminished air movement; Absent stridor, wheezes, crackles or able to speak in complete sentences Cardiac: Present Tachycardia; Absent S1/S2 GI: Present soft and distention; Absent tenderness or guarding Rectal (female): Present deferred (female): Present deferred Skin: Present intact; Absent cyanosis or jaundice Neuro: Absent alert, awake or oriented x 3 Extremities: Present normal inspection; Absent clubbing or cyanosis Psychiatric: Present unable to assess Meds Home Medications and Allergies Home Medications ?Medication ?Instructions ?Recorded ?Confirmed ?Type aspirin 81 mg tablet,delayed 81 mg PO DAILY #100 tabs 07/06/24 05/25/25 Rx release clopidogrel 75 mg tablet (Plavix) 75 mg PO DAILY #90 tabs 07/06/24 05/25/25 Rx nebulizer accessories #1 ea 08/08/24 05/25/25 Rx nebulizers #1 ea 08/08/24 05/25/25 Rx metoprolol tartrate 100 mg tablet 100 mg PO BID #60 tabs 10/26/24 05/25/25 Rx amlodipine 10 mg-valsartan 320 mg 1 tab PO DAILY #90 tabs 12/19/24 05/25/25 Rx tablet blood sugar diagnostic (OneTouch #50 ea 04/03/25 05/25/25 Rx Verio test strips) cholecalciferol (vitamin D3) 25 25 mcg PO DAILY 04/03/25 05/25/25 History mcg (1,000 unit) capsule citalopram 10 mg tablet 5 mg (1/2 x 10 mg) PO BID #30 tabs 04/03/25 05/25/25 Rx rosuvastatin 5 mg tablet 5 mg PO HS #90 tabs 04/26/25 05/25/25 Rx metformin 500 mg tablet,extended 500 mg PO BID #60 tabs 05/10/25 05/25/25 Rx release 24 hr albuterol sulfate 90 mcg/actuation 2 puff inhalation Q6H 05/25/25 05/25/25 History aerosol inhaler (Ventolin HFA) betamethasone dipropionate 0.05 % 1 applic topical BIDP PRN skin 05/25/25 05/25/25 History topical cream irritation glyburide 5 mg tablet 20 mg PO DAILY 05/25/25 05/25/25 History omeprazole 40 mg capsule,delayed 40 mg PO DAILY 05/25/25 05/25/25 History release New Prescriptions to Start Prescriptions: Allergies Allergy/AdvReac Type Severity Reaction Status Date / Time Penicillins Allergy Severe swelling Verified 04/03/25 09:02 doxycycline Allergy Mild Verified 04/03/25 09:02 brompheniramine AdvReac Verified 04/03/25 09:02 bupivacaine (From Marcaine) AdvReac Verified 04/03/25 09:02 cephalexin (From Keflex) AdvReac Verified 04/03/25 09:02 clarithromycin AdvReac Verified 04/03/25 09:02 fluvastatin (From Lescol) AdvReac Verified 04/03/25 09:02 hydrochlorothiazide AdvReac Verified 04/03/25 09:02 lovastatin (From Altocor) AdvReac Verified 04/03/25 09:02 moxifloxacin (From Avelox) AdvReac Verified 04/03/25 09:02 nitrofurantoin (From AdvReac Verified 04/03/25 09:02 Macrobid) triamcinolone (From Kenalog) AdvReac Verified 04/03/25 09:02 Results Laboratory Findings 05/26/25 10:00 05/26/25 10:00 ABG ABG pH 7.36 mmol/L (7.35-7.45) 05/25/25 12:46 ABG pCO2 45.8 mmhg (35.0-45.0) H 05/25/25 12:46 ABG pO2 51.1 mmhg (80-100) L 05/25/25 12:46 ABG O2 Saturation 85 % (90-100) L* 05/25/25 12:46 Abnormal lab findings: Abnormal Labs 05/24/25 05/24/25 05/24/25 15:25 16:00 21:30 WBC 16.5 H Hct Neut % (Auto) 84.0 H Lymph % (Auto) 9.7 L Clinch % (Auto) Neut # (Auto) 13.9 H Clinch # (Auto) ABG pCO2 ABG pO2 ABG O2 Saturation VBG pO2 VBG Total CO2 VBG O2 Saturation Chloride Carbon Dioxide Glucose 176 H POC Glucose 195 H Lactate 3.6 H Magnesium 1.5 L Urine Protein 1+ A 05/24/25 05/25/25 05/25/25 21:55 05:34 06:12 WBC 12.6 H Hct Neut % (Auto) 82.5 H Lymph % (Auto) 5.6 L Clinch % (Auto) 10.1 H Neut # (Auto) 10.4 H Clinch # (Auto) 1.3 H ABG pCO2 ABG pO2 ABG O2 Saturation VBG pO2 VBG Total CO2 VBG O2 Saturation Chloride Carbon Dioxide Glucose 165 H POC Glucose 162 H Lactate 2.5 H Magnesium Urine Protein 05/25/25 05/25/25 05/25/25 12:17 12:46 15:46 WBC Hct Neut % (Auto) Lymph % (Auto) Clinch % (Auto) Neut # (Auto) Clinch # (Auto) ABG pCO2 45.8 H ABG pO2 51.1 L ABG O2 Saturation 85 L* VBG pO2 VBG Total CO2 VBG O2 Saturation Chloride Carbon Dioxide Glucose POC Glucose 235 H 216 H Lactate Magnesium Urine Protein 05/25/25 05/25/25 05/26/25 21:18 22:50 10:00 WBC 12.0 H Hct 47.3 H Neut % (Auto) 83.7 H Lymph % (Auto) Clinch % (Auto) Neut # (Auto) 10.0 H Clinch # (Auto) ABG pCO2 ABG pO2 ABG O2 Saturation VBG pO2 110.3 H VBG Total CO2 27.6 H VBG O2 Saturation 98.4 H Chloride 96 L Carbon Dioxide 33 H Glucose 172 H POC Glucose 155 H Lactate Magnesium Urine Protein Assessment and Plan *Assessment and plan (1) Acute hypoxic respiratory failure: Status: Acute Category: Medical Code(s): J96.01 - Acute respiratory failure with hypoxia (2) Pleural effusion, bilateral: Status: Acute Category: Medical Code(s): J90 - Pleural effusion, not elsewhere classified (3) Pneumonia: Status: Acute Category: Medical Code(s): J18.9 - Pneumonia, unspecified organism Plan Ms. Hills is a 84-year-old female around [id number] smoking history not using any oxygen supplementation at baseline and using inhaler therapy presented to the ER status post rib fracture found to have increasing oxygen requirements and pulmonary was called for further evaluation and management. Afebrile. Hemodynamically stable. COVID-19 flu RSV rhino PCR panel negative upon admission. CTA PE protocol no evidence of pulmonary embolism but bilateral small pleural effusion along with adjacent atelectasis/airspace disease. Currently receiving meropenem. ABG from yesterday and VBG from today did not show any evidence of hypercarbic respiratory failure. Oxygen levels within normal limits. Patient currently on 3 L nasal oxygen supplementation. Needing to increasing oxygen commands overnight did significantly improved after diuresis. Patient alert and oriented x 1. No significant wheezing noted on auscultation. Plan: Continue DuoNebs every 6 hours on a scheduled basis Extubate to CPAP therapy. Incentive spirometry and flutter valve as feasible Continue to have low-grade fevers 100.3. Receiving meropenem. Recommend blood and sputum cultures and wean antibiotics as tolerated. Antibiotics can be weaned to levofloxacin from pulmonary standpoint. Oxygen supplementation to maintain O2 saturation goal of 90% and above. Weaned to room air this morning with saturations at 87 to 89%. Placed back on 2 L nasal cannula. # Thank you for involving pulmonary in this patient care. Will continue to follow.
[2025-05-26 11:44] LABS: Lactate Venous 1.5 mmol/L (0.4-2.0); VBG HCO3 31.9 mmol/L (23-30); VBG PCO2 44.7 mmol/L (35-51); VBG PH 7.47 mmol/L (7.31-7.41); VBG PO2 64.2 mmol/L (28-40)
[2025-05-26] MEDS: ACETAMINOPHEN 1,000MG/100ML VIAL 1000 MG IV (11:53)
--- NOTE | 2025-05-26 12:02 | EXP.ANES.CKL ---
[facility] Disclaimer: The information contained in this section may have been updated after the patient was seen, as this information can be updated by other users. Medical History (Updated 05/26/25 @ 11:50 by Charles Herrera MD) Pleural effusion, bilateral Vertigo Transient neurological symptoms Encounter for immunization Thyroid nodule Visual hallucination Right-sided headache Coronary artery calcification seen on CT scan Pulmonary nodule Vitamin D deficiency Type 2 diabetes mellitus without complications Hyperlipidemia Diabetes mellitus HTN (hypertension) Degenerative joint disease (DJD) of lumbar spine Surgical History H/O removal of cyst History of cholecystectomy Hx of cataract surgery Family History Mother Coronary artery disease Grandmother Stroke Brother Heart attack Social History (Updated 05/24/25 @ 18:16 by Camille Anna, SANTOS) Smoking Status: Current every day smoker tobacco type: cigarettes packs per day: 1 alcohol intake: never substance use type: denies use current occupational status: other Travel in the last 8 weeks?: None household members: other housing: house [facility] Anesthesia Checklist Patient Identification Patient Identification: Arm Band and Family Structural Data Admitted From: Inpatient Planned Operative Procedure/s: Left Hip Hemiarthroplasty Consent for Planned Operative Procedure(s) Verified: Yes Verified Documents: Surgical Consent and History and Physical NPO Status Verified Time NPO: 00:00 Additional verifications Anesthesia Reactions: No Airway Assessment Mallampati Score:: Class II Neurological Assessment Level of Consciousness: Drowsy and Lethargic Anesthesia Plan Anesthesia Risk discussed: Yes Anesthesia Plan: Verified ASA Class: IV Anesthesia Type: General Preoperative Comments Pre-Operative Comments: Pt very lethargic in preoperative area. Family at bedside. Increased O2 requirements overnight. History obtained from family. Discussed anesthesia plan with and they are agreeable. Anesthesia risks discussed along with possibility of prolonged need of mechanical ventilation. Family verbalized understanding of risks and agree to proceed.
[2025-05-26] MEDS: CLINDAMYCIN PHOSPHATE/D5W 900 MG/50 ML PIGGYBACK 100 MG IV (13:00)
[2025-05-26] MEDS: SODIUM CHLORIDE IRRIG SOLUTION 3,000 ML 200 ML IR (13:32)
[2025-05-26 14:31] LABS: Folate 7.16 ng/mL
--- NOTE | 2025-05-26 14:59 | P.OP_ITS ---
Date of procedure: 05/26/25 Pre-op Diagnosis:: Left femoral neck fracture displaced Post-op Diagnosis:: Same Procedure performed:: Hemiarthroplasty left hip Surgeon:: Joselo Ortega DO Engineer Second Assistant(s):: Kenrick KRUEGER [employer] SUPERVISOR:: Rubi Mckeon Anesthesia: GETA Estimated blood loss (mL): 100 Clinical Note:: 84-year-old female with displaced left femoral neck fracture Operative findings:: See dictation Operative note:: Patient identified preoperatively. Left hip marked with yes my initials. Patient then transported operative suite placed supine on her transport bed where general anesthesia was administered and airway secured. Once secured she was then transferred to the operative bed and placed in the lateral position with her left hip up all bony prominences well-padded axillary roll was placed. Left hip was then prepped and draped in normal sterile fashion. Once prepped and draped final operative timeout performed to identify proper patient procedure and extremity. Everyone involved in the case agreed. There is no counter indications to beginning. Did receive preoperative antibiotics with clindamycin. Marking pen was used to cherry skin incision over the lateral hip skin knife is used to incise the skin IT band was exposed and cut in line with the femur Charnley retractor was placed. Using a modified Ivan approach the standard abductor split was performed this was placed anteriorly and the Charnley retractor for protection throughout the surgery this then exposed the capsule of the hip capsule was cut in line with the femoral neck. The leg was brought up and a cleanup femoral neck cut was made and the bone was removed. Capsule was then cut to expose the femoral head. Fracture hematoma was present within the capsule which was evacuated. Femoral head was then removed with a [id number] clamp and Lennon elevator. It was sized to a size 44. Irrigation of the acetabulum was performed and was cleaned of any debris. Leg was then brought anteriorly and the leg bag and exposed the femoral neck elevator was placed and Hohmann retractor was placed. Kinza cutter osteotome was used for lateralization of the hip followed by canal finder and reamer on the hand. Followed by curved broach followed by small size 0 broach. Then I sequentially broached from size 8 to size 11. The 11 gave good fit and fill within the proximal femur. The calcar reamer was utilized and the trial stem was removed. Irrigation was performed with the pulse lavage. The canal was cleaned as well as the acetabulum. The implant size 11 with a press-fit stem was utilized. The [address] the +1.5 head size [address] with a bipolar head. Irrigation repeated acetabulum clean. Then reduction maneuver was performed to reduce the head into the acetabulum. Hip was taken through range of motion found to be stable. Irrigation repeated. Capsule closed with 0 Vicryl. The abductor repair with #5 Ethibond suture multiple Ethibond used to repair this back to the femur then the IT band was closed with a running STRATAFIX suture. Deep layers with 0 Vicryl subcutaneous with 2-0 Vicryl skin closed with everton sterile dressing placed patient waken from anesthesia taken recovery stable condition. Condition: stable Disposition: PACU Complications:: None apparent
--- NOTE | 2025-05-26 15:08 | XR_ITS ---
FINAL REPORT CLINICAL HISTORY: Status post left hip hemiarthroplasty -- Low AP pelvis in RR include bottom of stem FINDINGS: SINGLE VIEW PELVIS: A single view of the pelvis was obtained. There is no prior exam for comparison. Postop left hip arthroplasty. The hardware appears intact. There is no acute osseous abnormality. No immediate complications are seen. Skin everton are seen along the lateral soft tissues. IMPRESSION: Changes from left hip arthroplasty. Reviewed, Interpreted and Dictated by Prudence Osborne MD Transcribed by Katya Holt Authenticated and [facility]
--- NOTE | 2025-05-26 15:18 | P.PNANES_ITS ---
[facility] Anesthesia Record Part I Anesthesia Record I Intake, IV Amount: 600 Hydration: Adequate Estimated blood loss (mL): 10 Urine output (mL): 200 Blood Pressure: 145/58 SaO2: 90 Pulse Rate: 56 Airway Patency: Patent Respiratory Rate: 20 Temperature: 98.5 F Patient is:: Drowsy, Mask O2, Stable and Somnolent Stable to PACU at:: 15:20
[2025-05-26 15:22] LABS: POC Glucose,Bedside 205 gm/dL (70-110)
[2025-05-26 15:38] LABS: ABG HCO3 29.0 mmhg (22.0-26.0); ABG PH 7.27 mmol/L (7.35-7.45); ABG PO2 57.6 mmhg (80-100); ABG TCO2 31.0 mmhg (23-27)
[2025-05-26 15:45] LABS: ABG PCO2 64.4 mmhg (35.0-45.0); Source R RADIAL
--- NOTE | 2025-05-26 15:52 | PC.NURSE ---
Patient arrived to ICU at this time.
--- NOTE | 2025-05-26 16:10 | PC.NURSE ---
notified of patient arriving to ICU. Patient unresponsive to stimuli. Primary RN notified provider. Continuation of care plan.
[2025-05-26 16:36] LABS: POC Glucose,Bedside 227 gm/dL (70-110)
--- NOTE | 2025-05-26 16:40 | PC.NURSE ---
at bedside at this time. Continuation of care plan.
--- NOTE | 2025-05-26 16:50 | PC.NURSE ---
Per NT suctioned pt. Moderate amount of cream color secretions suctioned out
--- NOTE | 2025-05-26 16:50 | PC.NURSE ---
Verbal orders received from for NT suction at this time. Respiratory therapist and provider at bedside. Patient showed facial grimacing during NT suction. Yonker used to suction oral airway. Patient bit down on yonker at this time. Respiratory therapist administered breathing treatment as ordered per MAR per provider. Continuation of care plan.
[2025-05-26 20:12] LABS: Lactate Venous 1.3 mmol/L (0.4-2.0); VBG HCO3 26.3 mmol/L (23-30); VBG PCO2 49.5 mmol/L (35-51); VBG PH 7.34 mmol/L (7.31-7.41); VBG PO2 105.0 mmol/L (28-40)
[2025-05-26 21:06] LABS: POC Glucose,Bedside 231 gm/dL (70-110)
[2025-05-27] VITALS (38 sets, daily range): BP systolic 99–189; BP diastolic 44–75; PULSE 60–117; RESP 13–22; TEMP 36.9–37.7; O2SAT 84–98; BMI 26.6
[2025-05-27] MEDS: MEROPENEM 1 GM in 0.9 % SODIUM CHLORIDE 100 ML IV ×2 (00:22→12:10)
[2025-05-27] MEDS: IPRATROPIUM/ALBUTEROL 3 ML NEB IH ×3 (02:33→18:50)
--- NOTE | 2025-05-27 03:04 | PC.NURSE ---
Patient is awake, alert and oriented to person and place. Daughter Kylah updated on condition. RT at bedside and switched patient from bipap to nasal cannula at 4 lpm. Oral care performed.
[2025-05-27 06:10] LABS: POC Glucose,Bedside 166 gm/dL (70-110)
--- NOTE | 2025-05-27 06:54 | PC.NURSE ---
Patient is confused, agitated and removing pulse ox and oxygen. Attempted to pull piv's. IV's wrapped with Kerlex. Nurse was able to put nasal cannula and pulse ox back on.
[2025-05-27 07:10] LABS: VBG HCO3 30.2 mmol/L (23-30); VBG PCO2 45.0 mmol/L (35-51); VBG PH 7.45 mmol/L (7.31-7.41); VBG PO2 62.2 mmol/L (28-40)
[2025-05-27 07:11] LABS: Lactate Venous 2.8 mmol/L (0.4-2.0)
[2025-05-27 07:22] LABS: Hematocrit 41.5 % (37.0-47.0); Immature Granulocytes % 0.5 %; Mean Corpuscular HGB Conc 32.3 g/dL (31.8-35.4); Mean Corpuscular Hemoglobin 29.7 pg (27.0-31.2); Mean Corpuscular Volume 92.0 fl (81-99); Nucleated Red Blood Cells % 0 %; Platelet Count 237 K/mm3 (142-424); Red Blood Count 4.51 M/mm3 (4.20-5.40); Red Cell Distribution Width-SD 42.8 fL; White Blood Count 15.4 K/mm3 (4.8-10.8)
[2025-05-27 07:40] LABS: Alanine Aminotransferase 16 U/L (12-78); Albumin Level 3.7 g/dl (3.5-5.0); Albumin/Globulin Ratio 1.3 (1.1-1.8); Alkaline Phosphatase 61 U/L (38-126); Anion Gap 8.9 mEq/L (5-15); Aspartate Amino Transferase 33 U/L (14-36); Bilirubin,Total 0.7 mg/dl (0.2-1.3); Blood Urea Nitrogen 30 mg/dl (7-17); Calcium 8.6 mg/dl (8.4-10.2); Carbon Dioxide 34 mmol/L (22.0-30.0); Chloride 99 mmol/L (98-107); Creatinine Clearance Estimated 40 mL/min (50-200); Creatinine,Serum 1.10 mg/dl (0.52-1.04); Estimated Glomerular Filt Rate 47 ml/min (>60); GFR (African American) 57 ML/MIN (>60); Globulin 2.9 g/dL (1.3-3.2); Glucose 158 mg/dl (74-100); Potassium 3.9 mmoL/L (3.5-5.1); Sodium 138 mmol/L (136-145); Total Protein,Serum 6.6 g/dl (6.3-8.2)
[2025-05-27] MEDS: HYDROCODONE/APAP 5/325 MG TABLET 2 TAB PO ×2 (08:21→15:05)
[2025-05-27 08:39] LABS: Total Cells Counted 100
[2025-05-27 08:40] LABS: RBC Morphology Normal
[2025-05-27 08:51] LABS: Hemoglobin 13.5 g/dL (12.2-16.2)
[2025-05-27] MEDS: IRBESARTAN 300MG TABLET 300 MG PO (09:48)
[2025-05-27] MEDS: FUROSEMIDE 40MG/4ML VIAL 40 MG IV (09:48)
[2025-05-27] MEDS: METOPROLOL TARTRATE 50MG TABLET 100 MG PO ×2 (09:48→20:25)
[2025-05-27] MEDS: AMLODIPINE 10MG TABLET 10 MG PO (09:48)
[2025-05-27 11:08] LABS: Reflex Lactic Add Lactic Reflex
[2025-05-27 11:28] LABS: POC Glucose,Bedside 225 gm/dL (70-110)
[2025-05-27] MEDS: humaLOG 100 UNITS/ML 10ML VIAL (SSI) SUBCUT ×3 (11:28→20:26)
[2025-05-27 11:47] LABS: Lactic Acid Follow Up (RFLX 1) 2.2 mmol/L (0.7-2.1)
[2025-05-27 13:28] LABS: Reflex Lactic (2 hrs) Add Lactic Reflex
[2025-05-27 13:52] LABS: VBG HCO3 30.6 mmol/L (23-30); VBG PCO2 47.0 mmol/L (35-51); VBG PH 7.43 mmol/L (7.31-7.41); VBG PO2 78.6 mmol/L (28-40)
[2025-05-27 13:53] LABS: Lactate Venous 2.6 mmol/L (0.4-2.0)
[2025-05-27 14:34] LABS: Lactic Acid Follow up (RFLX 2) 2.3 mmol/L (0.7-2.1)
--- NOTE | 2025-05-27 15:57 | P.PN_ITS ---
Subjective *Date: 05/27/25 *Time: 15:57 Interval history: Able to wean off BiPAP by this morning. Transition to nasal cannula oxygen 4 to 6 L. Patient still confused but interactive. Told me I was flying to her about where she was and what we were doing for her. Did not believe she had a broken hip. Initially was resistant to taking her morning meds, but complied after much discussion with nursing. Medical Exam Vital signs and Labs for Last 24 Hours: Vital Signs Temp Pulse Pulse Resp BP BP Pulse Ox 05/27/25 15:00 74 16 120/50 L 90 L 05/27/25 15:00 05/27/25 14:00 71 13 106/47 L 91 L 05/27/25 13:01 73 16 117/46 L 95 05/27/25 13:00 05/27/25 12:35 70 17 111/45 L 95 05/27/25 12:17 98.5 F 69 16 111/52 L 96 05/27/25 12:00 60 05/27/25 12:00 05/27/25 11:28 88 05/27/25 11:28 86 05/27/25 11:28 93 L 05/27/25 11:10 69 17 99/69 L 90 L 05/27/25 11:00 05/27/25 10:15 106 H 20 95 05/27/25 10:01 22 05/27/25 10:01 110 H 19 136/53 L 94 L 05/27/25 09:01 117 H 18 162/75 H 96 05/27/25 09:00 05/27/25 08:31 99.7 F H 111 H 16 152/74 H 91 L 05/27/25 08:06 05/27/25 08:00 110 H 05/27/25 07:00 88 14 163/59 H 94 L 05/27/25 06:51 05/27/25 06:19 155/62 H 05/27/25 06:19 91 H 17 155/62 H 98 05/27/25 06:00 85 13 98 05/27/25 05:00 90 22 151/58 H 95 05/27/25 04:00 05/27/25 04:00 76 05/27/25 04:00 150/49 H 05/27/25 04:00 99.2 F 83 15 150/49 H 94 L 05/27/25 03:00 76 16 161/50 H 89 L 05/27/25 03:00 05/27/25 03:00 92 L 05/27/25 02:33 83 05/27/25 02:33 82 05/27/25 02:00 189/68 H 05/27/25 02:00 82 15 153/67 H 94 L 05/27/25 01:50 05/27/25 01:00 63 16 128/56 L 96 05/27/25 01:00 05/27/25 00:15 64 14 95 05/27/25 00:12 05/27/25 00:00 98.5 F 63 16 117/56 L 95 05/27/25 00:00 62 05/26/25 23:00 05/26/25 23:00 61 16 129/55 L 96 05/26/25 22:00 59 L 13 129/55 L 99 05/26/25 22:00 59 L 13 129/55 L 97 05/26/25 21:56 62 05/26/25 21:56 63 05/26/25 21:56 05/26/25 21:00 57 L 14 135/53 L 96 05/26/25 21:00 05/26/25 21:00 58 L 14 135/53 L 97 05/26/25 20:00 59 L 13 112/48 L 05/26/25 20:00 96 05/26/25 20:00 61 05/26/25 20:00 98.5 F 59 L 14 112/48 L 95 05/26/25 19:00 63 14 115/47 L 95 05/26/25 18:54 05/26/25 18:53 05/26/25 18:31 64 14 117/53 L 97 05/26/25 18:14 64 16 134/50 L 96 05/26/25 18:01 60 16 151/55 H 97 05/26/25 18:00 05/26/25 17:45 64 20 131/58 L 96 05/26/25 17:30 62 20 145/58 H 96 05/26/25 17:15 62 18 142/54 H 96 05/26/25 17:00 61 05/26/25 17:00 61 05/26/25 17:00 60 16 142/51 H 95 05/26/25 17:00 05/26/25 16:45 98.8 F 62 16 135/53 L 95 05/26/25 16:30 61 16 140/57 L 94 L 05/26/25 16:15 62 16 152/59 H 94 L 05/26/25 16:12 58 L 05/26/25 16:01 65 18 144/58 H 94 L 05/26/25 16:00 05/26/25 16:00 94 L 05/26/25 15:59 O2 Del Method O2 Flow Rate FiO2 05/27/25 15:00 Nasal Cannula 6 05/27/25 15:00 Nasal Cannula 6 05/27/25 14:00 Nasal Cannula 6 05/27/25 13:01 Nasal Cannula 6 05/27/25 13:00 Nasal Cannula 6 05/27/25 12:35 Nasal Cannula 6 05/27/25 12:17 Nasal Cannula 6 05/27/25 12:00 05/27/25 12:00 Nasal Cannula 6 05/27/25 11:28 05/27/25 11:28 05/27/25 11:28 Nasal Cannula 6 05/27/25 11:10 Nasal Cannula 5 05/27/25 11:00 Nasal Cannula 6 05/27/25 10:15 05/27/25 10:01 05/27/25 10:01 Nasal Cannula 6 05/27/25 09:01 Nasal Cannula 6 05/27/25 09:00 Nasal Cannula 05/27/25 08:31 Nasal Cannula 6 05/27/25 08:06 Nasal Cannula 05/27/25 08:00 05/27/25 07:00 4 05/27/25 06:51 Nasal Cannula 5 05/27/25 06:19 05/27/25 06:19 4 05/27/25 06:00 05/27/25 05:00 Nasal Cannula 4 05/27/25 04:00 Nasal Cannula 6 05/27/25 04:00 05/27/25 04:00 05/27/25 04:00 Nasal Cannula 4 05/27/25 03:00 05/27/25 03:00 Nasal Cannula 4 05/27/25 03:00 Nasal Cannula 4 05/27/25 02:33 05/27/25 02:33 05/27/25 02:00 05/27/25 02:00 BiPAP 05/27/25 01:50 30 05/27/25 01:00 BiPAP 05/27/25 01:00 BiPAP 05/27/25 00:15 05/27/25 00:12 BiPAP 40 05/27/25 00:00 BiPAP 05/27/25 00:00 05/26/25 23:00 BiPAP 05/26/25 23:00 BiPAP 05/26/25 22:00 BiPAP 05/26/25 22:00 BiPAP 40 05/26/25 21:56 05/26/25 21:56 05/26/25 21:56 40 05/26/25 21:00 BiPAP 05/26/25 21:00 BiPAP 05/26/25 21:00 BiPAP 50 05/26/25 20:00 BiPAP 50 05/26/25 20:00 BiPAP 80 05/26/25 20:00 05/26/25 20:00 05/26/25 19:00 BiPAP 05/26/25 18:54 50 05/26/25 18:53 BiPAP 05/26/25 18:31 BiPAP 05/26/25 18:14 BiPAP 05/26/25 18:01 BiPAP 05/26/25 18:00 80 05/26/25 17:45 BiPAP 05/26/25 17:30 BiPAP 05/26/25 17:15 BiPAP 05/26/25 17:00 05/26/25 17:00 05/26/25 17:00 BiPAP 05/26/25 17:00 BiPAP 05/26/25 16:45 BiPAP 05/26/25 16:30 BiPAP 05/26/25 16:15 BiPAP 05/26/25 16:12 05/26/25 16:01 BiPAP 05/26/25 16:00 80 05/26/25 16:00 BiPAP 05/26/25 15:59 60 Intake and Output 05/26/25 05/27/25 05/27/25 23:59 07:59 15:59 Intake Total 110 / 785 675 / 785 Output Total 100 / 2600 200 / 200 Balance -100 / -1840 -90 / 585 675 / 585 Intake: Intake, Oral Amount 570 / 570 Intake, Other Amount 18 Intake, Total IV Amount 100 / 197 97 / 197 Meropenem 1 gm In 0.9 % Sodium 100 / 197 97 / 197 Chloride 100 ml @ 100 mls/hr IV Q12H [facility] Rx#:[id number] Output: Output, Urine Amount 100 / 2600 200 / 200 Other: Intake, Other Source Saline Solution Number of Unmeasured Voids 0 0 0 Weight 65.771 kg Patient Weight 05/27/25 23:59 Weight 65.771 kg Laboratory Results - last 24 hr 05/26/25 16:22: POC Glucose 227 H 05/26/25 20:09: VBG pH 7.34, VBG pCO2 49.5, VBG pO2 105.0 H, VBG HCO3 26.3, VBG Total CO2 27.9 H, VBG O2 Saturation 97.8 H, VBG Base Excess 0.6, VBG Lactic Acid 1.3 05/26/25 20:51: POC Glucose 231 H 05/27/25 06:00: POC Glucose 166 H 05/27/25 06:40: WBC 15.4 H D, RBC 4.51, Hgb 13.5 D, Hct 41.5, MCV 92.0, MCH 29.7, MCHC 32.3, RDW 12.7, Plt Count 237, MPV 9.8, Neut % (Auto) 79.5, Lymph % (Auto) 7.7 L, [place] % (Auto) 12.0 H, Eos % (Auto) 0.1, Baso % (Auto) 0.2, Neut # (Auto) 12.2 H, Lymph # (Auto) 1.2, [place] # (Auto) 1.9 H, Eos # (Auto) 0.0, Baso # (Auto) 0.0, Total Counted 100, Neutrophils % (Manual) 77 H, Lymphocytes % (Manual) 8 L, Monocytes % (Manual) 14 H, Eosinophils % (Manual) 1, Platelet Estimate Normal, RBC Morphology Normal, VBG pH 7.45 H, VBG pCO2 45.0, VBG pO2 62.2 H, VBG HCO3 30.2 H, VBG Total CO2 31.6 H, VBG O2 Saturation 93.0 H, VBG Base Excess 6.2 H, VBG Lactic Acid 2.8 H, Sodium 138, Potassium 3.9, Chloride 99, Carbon Dioxide 34 H, Anion Gap 8.9, BUN 30 H D, Creatinine 1.10 H D, Estimated Creat Clear 40, Estimated GFR 47 L, Est GFR ( Amer) 57 L D, Glucose 158 H, Calcium 8.6, Total Bilirubin 0.7, AST 33, ALT 16, Alkaline Phosphatase 61, Total Protein 6.6, Albumin 3.7, Globulin 2.9, Albumin/Globulin Ratio 1.3 05/27/25 11:16: POC Glucose 225 H 05/27/25 11:25: Lactate 2.2 H 05/27/25 13:28: Lactate 2.3 H 05/27/25 13:40: VBG pH 7.43 H, VBG pCO2 47.0, VBG pO2 78.6 H, VBG HCO3 30.6 H, VBG Total CO2 32.1 H, VBG O2 Saturation 96.2 H, VBG Base Excess 6.4 H, VBG Lactic Acid 2.6 H I & O for Labs for Last 24 Hours: Intake & Output 05/24/25 05/25/25 05/26/25 05/27/25 23:59 23:59 23:59 23:59 Intake Total 50 / 290 1960 / 1960 750 / 760 785 / 785 Output Total 100 / 100 2600 / 2600 200 / 200 Balance 50 / 290 1860 / 1860 -1850 / -1840 585 / 585 Weight 64.92 kg 64.8 kg 64.9 kg 65.771 kg Constitutional: Present mild distress, average body habitus, chronically ill appearing and agitated Head: Present atraumatic and normocephalic ENT: Present normal exam Neck: Present normal inspection Respiratory: Present prolonged expiratory phase, wheezes, normal respiratory effort and symmetric chest movement; Absent rhonchi or crackles Cardiac: Present Reg Rate and Rhythm GI: Present soft and normal bowel sounds; Absent distention or tenderness Rectal (female): Present deferred (female): Present deferred Comment:: Hoffman catheter in place Extremities: Present normal inspection and tenderness (Left hip, bandage CDI) Skin: Present intact and dry; Absent erythema Neuro: Present Grossly Intact, alert, awake and moves all extremities Comment:: Oriented to self only Assessment and Plan *Assessment and plan (1) Fall: Status: Acute Qualifiers: Encounter type: initial encounter Qualified Code(s): W19.XXXA - Unspecified fall, initial encounter Category: Medical Code(s): W19.XXXA - Unspecified fall, initial encounter (2) Left displaced femoral neck fracture: Status: Acute Category: Medical Code(s): S72.002A - Fracture of unspecified part of neck of left femur, initial encounter for closed fracture (3) Hyperglycemia: Status: Acute Category: Medical Code(s): R73.9 - Hyperglycemia, unspecified (4) Hypomagnesemia: Status: Acute Category: Medical Code(s): E83.42 - Hypomagnesemia (5) Leukocytosis: Status: Acute Qualifiers: Leukocytosis type: unspecified Qualified Code(s): D72.829 - Elevated white blood cell count, unspecified Category: Medical Code(s): D72.829 - Elevated white blood cell count, unspecified (6) Mass of adrenal gland: Status: Acute Category: Medical Code(s): E27.8 - Other specified disorders of adrenal gland (7) Acute hypoxic respiratory failure: Status: Acute Category: Medical Code(s): J96.01 - Acute respiratory failure with hypoxia (8) Pleural effusion, bilateral: Status: Acute Category: Medical Code(s): J90 - Pleural effusion, not elsewhere classified (9) Pneumonia: Status: Acute Category: Medical Code(s): J18.9 - Pneumonia, unspecified organism Plan Mr. Hills is a 84-year-old female who presented to the emergency department after a fall at home. She denied loss of consciousness but was found to have a displaced left femoral neck fracture. Hospital medicine was contacted for admission, patient was admitted to hospital medicine. Had surgical fixation on 05/26. Awaiting therapy evals for placement. Weaning oxygen from her respiratory failure. Showing some improvement in mentation. Problems addressed as follows: #Left displaced femoral neck fracture ? Patient alert and interactive this morning. Knows who she is but does not believe she is at [facility]. Combative on exam. Took some time this morning after rounds before she was more cooperative and agreeable. - Left hip hemiarthroplasty performed 05/26. Had prolonged confusion and sedation after procedure but doing better this morning. - Therapy consulted to evaluate for SNF placement. - Continue hydrocodone 10 mg every 4 hours as needed for moderate to severe pain. Also has morphine 2 mg IV every 4 hours. Causing some confusion however. Monitor for toxicity. #COPD/Pneumonia #Acute hypoxia ?DuoNebs every 6 hours as needed ordered. Pulmonology consulted. ? Gradually weaned off BiPAP overnight. Continues to require 6 L oxygen this morning for sats greater 90%. - Continue Levaquin renally dosed IV #Hypertension: Continue amlodipine?valsartan daily for hypertension. #Type 2 diabetes: ACHS fingersticks, SSI. Hold metformin and glyburide in the inpatient setting. Patient appears to be well-controlled, A1c 03/2025 was 6.3%. #Hypomagnesia, resolved: Morning labs with potassium 3.9, kidney function BUN 31, creatinine 1.1. Replace electrolytes per protocol; repeat CBC, CMP, magnesi um ordered for the morning #Leukocytosis with left shift: White cell count stable today at 15.4. Hemoglobin stable. Continue antibiotics as above. Suspect the marginalization after surgery. #Mass of the adrenal gland: Currently patient is without any symptomology that denotes adrenal gland dysfunction. Patient can follow-up outpatient at discharge. #Coronary artery disease: Patient has a history of CAD with stent placement, currently holding Plavix 75 mg and aspirin 81 mg in anticipation of surgery. #Tobacco use disorder: Discussed smoking sensation with patient, nicotine patches ordered. Full code diabetic diet post procedure Bed rest Lovenox 40 mg subcu daily
[2025-05-27 16:53] LABS: POC Glucose,Bedside 271 gm/dL (70-110)
[2025-05-27] MEDS: POLYETHYLENE GLYCOL 3350 17 GM PACKET PO (16:53)
--- NOTE | 2025-05-27 18:11 | EXP.ORTH.PN ---
Subjective *Date: 05/27/25 *Time: 18:11 Interval history: POD #1 LEFT HIP HEMIARTHROPLASTY Has been confused throughout day, but some slight improvement from yesterday. Does not complain of hip pain currently. Ortho Exam (Inpt) Vital signs and Labs for Last 24 Hours: Temp Pulse Resp BP Pulse Ox O2 Del Method O2 Flow Rate 99.9 F H 77 19 134/44 L 94 L Nasal Cannula 6 05/27/25 16:19 05/27/25 16:19 05/27/25 16:19 05/27/25 16:19 05/27/25 16:19 05/27/25 17:00 05/27/25 17:00 FiO2 30 05/27/25 01:50 Laboratory Results - last 24 hr 05/26/25 20:09: VBG pH 7.34, VBG pCO2 49.5, VBG pO2 105.0 H, VBG HCO3 26.3, VBG Total CO2 27.9 H, VBG O2 Saturation 97.8 H, VBG Base Excess 0.6, VBG Lactic Acid 1.3 05/26/25 20:51: POC Glucose 231 H 05/27/25 06:00: POC Glucose 166 H 05/27/25 06:40: WBC 15.4 H D, RBC 4.51, Hgb 13.5 D, Hct 41.5, MCV 92.0, MCH 29.7, MCHC 32.3, RDW 12.7, Plt Count 237, MPV 9.8, Neut % (Auto) 79.5, Lymph % (Auto) 7.7 L, [place] % (Auto) 12.0 H, Eos % (Auto) 0.1, Baso % (Auto) 0.2, Neut # (Auto) 12.2 H, Lymph # (Auto) 1.2, [place] # (Auto) 1.9 H, Eos # (Auto) 0.0, Baso # (Auto) 0.0, Total Counted 100, Neutrophils % (Manual) 77 H, Lymphocytes % (Manual) 8 L, Monocytes % (Manual) 14 H, Eosinophils % (Manual) 1, Platelet Estimate Normal, RBC Morphology Normal, VBG pH 7.45 H, VBG pCO2 45.0, VBG pO2 62.2 H, VBG HCO3 30.2 H, VBG Total CO2 31.6 H, VBG O2 Saturation 93.0 H, VBG Base Excess 6.2 H, VBG Lactic Acid 2.8 H, Sodium 138, Potassium 3.9, Chloride 99, Carbon Dioxide 34 H, Anion Gap 8.9, BUN 30 H D, Creatinine 1.10 H D, Estimated Creat Clear 40, Estimated GFR 47 L, Est GFR ( Amer) 57 L D, Glucose 158 H, Calcium 8.6, Total Bilirubin 0.7, AST 33, ALT 16, Alkaline Phosphatase 61, Total Protein 6.6, Albumin 3.7, Globulin 2.9, Albumin/Globulin Ratio 1.3 05/27/25 11:16: POC Glucose 225 H 05/27/25 11:25: Lactate 2.2 H 05/27/25 13:28: Lactate 2.3 H 05/27/25 13:40: VBG pH 7.43 H, VBG pCO2 47.0, VBG pO2 78.6 H, VBG HCO3 30.6 H, VBG Total CO2 32.1 H, VBG O2 Saturation 96.2 H, VBG Base Excess 6.4 H, VBG Lactic Acid 2.6 H 05/27/25 16:41: POC Glucose 271 H I & O for Labs for Last 24 Hours: Intake & Output 05/24/25 05/25/25 05/26/25 05/27/25 23:59 23:59 23:59 23:59 Intake Total 50 / 290 1960 / 1960 750 / 760 905 / 905 Output Total 100 / 100 2600 / 2600 475 / 475 Balance 50 / 290 1860 / 1860 -1850 / -1840 430 / 430 Weight 143 lb 2 oz 142 lb 13.753 oz 143 lb 1.28 oz 145 lb Microbiology Reports for the Last 24 Hours: Microbiology 05/26/25 17:00 Blood Blood Culture - Preliminary NO GROWTH AFTER 24 HOURS 05/26/25 16:55 Blood Blood Culture - Preliminary NO GROWTH AFTER 24 HOURS Additional findings:: LEFT HIP: dressing intact. wiggles toes. Sensation intact. Assessment and Plan *Assessment and plan (1) Left displaced femoral neck fracture: Problem Comment: s/p Hemiarthroplasty DOS 05/26/25 Status: Acute Category: Medical Code(s): S72.002A - Fracture of unspecified part of neck of left femur, initial encounter for closed fracture Plan Continued respiratory improvement. Mental status will make rehab difficult. Placement for rehab once medically stable. Return to clinic 2 1/2 weeks for staple removal.
[2025-05-27 20:13] LABS: POC Glucose,Bedside 166 gm/dL (70-110)
[2025-05-27] MEDS: PANTOPRAZOLE 40MG TABLET 40 MG PO (20:25)
[2025-05-27] MEDS: ATORVASTATIN 10MG TABLET 5 MG PO (20:26)
--- NOTE | 2025-05-27 21:52 | PC.NURSE ---
Pulled pain medication for patient from [facility]. After taking medication in the room for patient to take she refused to take it. patient seemed confused and stated that there was gasoline in the pills and she was not taking it.
--- NOTE | 2025-05-27 22:34 | PC.NURSE ---
Spoke with House Sample Stitcher and Hospitalist about patient being confused and taking off pulse ox and heart leads. patient is confused and is unwilling to put them back on. Patient stated that she would kick nurses in the face if we tried to put those monitors back on. When asking patient if she knew where she was she stated [place]. Received orders for medication. Will continue to try and put monitors back on patient and monitor.
[2025-05-28] VITALS (26 sets, daily range): BP systolic 96–180; BP diastolic 39–96; PULSE 63–98; RESP 10–23; TEMP 36.8–38; O2SAT 80–95; BMI 26.9
[2025-05-28 00:17] LABS: Microscopic, Urine URINE MICROSCOPIC (MICROSCOPIC)
[2025-05-28 00:21] LABS: Bilirubin,Urine Negative (Negative); Color,Urine YELLOW (Yellow); Glucose,Urine (UA) Negative (Negative); Ketones,Urine Negative (Negative); Leukocyte Esterase,Urine Negative (Negative); PH,Urine 6.0 (5.0-8.5); Protein,Urine TRACE (Negative); Specific Gravity, Urine 1.025 (1.005-1.030); Urobilinogen,Urine 0.2 EU/dl (0.2)
[2025-05-28 00:41] LABS: Bacteria,Urine Trace /lpf; RBC,Urine 20-50 #/hpf (0-3); Squamous Epithelial Cell,Urine Occasional #/hpf (0-5); WBC,Urine Occasional #/hpf (0-3)
[2025-05-28] MEDS: MEROPENEM 1 GM in 0.9 % SODIUM CHLORIDE 100 ML IV ×2 (01:24→15:11)
[2025-05-28] MEDS: HYDROCODONE/APAP 5/325 MG TABLET 1 TAB PO (02:47)
--- NOTE | 2025-05-28 04:57 | P.EN_ITS ---
gave pt trazodone 50mg po for sleep
--- NOTE | 2025-05-28 04:57 | EXP.EVENT.NO ---
gave pt trazodone 50mg po for sleep
[2025-05-28 05:51] LABS: Hematocrit 39.4 % (37.0-47.0); Hemoglobin 13.0 g/dL (12.2-16.2); Immature Granulocytes % 0.3 %; Mean Corpuscular HGB Conc 33.0 g/dL (31.8-35.4); Mean Corpuscular Hemoglobin 30.3 pg (27.0-31.2); Mean Corpuscular Volume 91.8 fl (81-99); Nucleated Red Blood Cells % 0 %; Platelet Count 234 K/mm3 (142-424); Red Blood Count 4.29 M/mm3 (4.20-5.40); Red Cell Distribution Width-SD 42.2 fL; White Blood Count 13.1 K/mm3 (4.8-10.8)
[2025-05-28 06:13] LABS: Anion Gap 5.7 mEq/L (5-15); Blood Urea Nitrogen 38 mg/dl (7-17); Calcium 8.6 mg/dl (8.4-10.2); Carbon Dioxide 33 mmol/L (22.0-30.0); Chloride 99 mmol/L (98-107); Creatinine Clearance Estimated 44 mL/min (50-200); Creatinine,Serum 0.90 mg/dl (0.52-1.04); Estimated Glomerular Filt Rate 60 ml/min (>60); GFR (African American) 72 ML/MIN (>60); Glucose 184 mg/dl (74-100); Potassium 3.7 mmoL/L (3.5-5.1); Sodium 134 mmol/L (136-145)
--- NOTE | 2025-05-28 06:28 | PC.NURSE ---
patient remained confused and uncooperative for entire shift. patient refused most of her care and would take her monitors off periodically throughout the shift. patient daughter called to check on her a couple different times and said she would be here this morning. MD aware of patient not being compliant with care.
[2025-05-28 06:58] LABS: POC Glucose,Bedside 180 gm/dL (70-110)
--- NOTE | 2025-05-28 08:27 | P.PN_ITS ---
Subjective *Date: 05/28/25 *Time: 15:48 Interval history: Patient interactive this morning. More cooperative on exam but still thinks we are lying to her and is distrustful of care team. Not combative. Worked with therapy today. Still having left hip pain. Tolerating nasal cannula oxygen on 2 L this morning on rounds. Will attempt to wean O2 today. Denies chest pain or nausea Medical Exam Vital signs and Labs for Last 24 Hours: Vital Signs Temp Pulse Resp BP Pulse Ox O2 Del Method O2 Flow Rate 05/28/25 07:00 Nasal Cannula 5 05/28/25 06:00 74 165/91 H 81 L 05/28/25 05:00 69 21 157/54 H 95 05/28/25 05:00 Nasal Cannula 6 05/28/25 04:45 81 22 94 L 05/28/25 04:30 83 22 94 L 05/28/25 04:15 84 20 93 L 05/28/25 04:00 83 05/28/25 04:00 17 123/39 L 05/28/25 03:00 80 20 147/49 H 90 L 05/28/25 03:00 Nasal Cannula 6 05/28/25 02:14 82 23 90 L 05/28/25 02:14 134/56 L 05/28/25 02:00 Nasal Cannula 05/28/25 02:00 90 12 87 L 05/28/25 01:45 75 13 93 L 05/28/25 01:30 77 10 L 90 L 05/28/25 01:15 73 16 92 L 05/28/25 01:03 76 16 140/56 L 90 L 05/28/25 01:00 79 22 93 L 05/28/25 01:00 Nasal Cannula 6 05/28/25 00:45 77 14 80 L 05/28/25 00:30 74 16 92 L 05/28/25 00:15 73 17 95 05/28/25 00:02 71 14 93 L 05/28/25 00:00 66 05/28/25 00:00 72 18 106/85 L 85 L 05/27/25 23:45 71 13 92 L 05/27/25 23:30 72 15 92 L 05/27/25 23:15 61 19 93 L 05/27/25 23:01 163/57 H 05/27/25 23:01 65 14 92 L 05/27/25 23:00 Nasal Cannula 6 05/27/25 23:00 64 17 90 L 05/27/25 22:49 64 87 L 05/27/25 22:01 125/74 05/27/25 21:00 78 15 154/53 H 84 L 05/27/25 21:00 Nasal Cannula 6 05/27/25 20:00 62 18 134/49 L 94 L 05/27/25 20:00 Nasal Cannula 6 05/27/25 20:00 66 05/27/25 19:11 Nasal Cannula 6 05/27/25 19:00 63 16 124/52 L 93 L 05/27/25 18:39 Nasal Cannula 5 05/27/25 18:01 82 18 132/59 L 92 L Nasal Cannula 6 05/27/25 17:00 Nasal Cannula 6 05/27/25 16:19 99.9 F H 77 19 134/44 L 94 L Nasal Cannula 6 05/27/25 16:00 80 05/27/25 15:00 74 16 120/50 L 90 L Nasal Cannula 6 05/27/25 15:00 Nasal Cannula 6 05/27/25 14:00 71 13 106/47 L 91 L Nasal Cannula 6 05/27/25 13:01 73 16 117/46 L 95 Nasal Cannula 6 05/27/25 13:00 Nasal Cannula 6 05/27/25 12:35 70 17 111/45 L 95 Nasal Cannula 6 05/27/25 12:17 98.5 F 69 16 111/52 L 96 Nasal Cannula 6 05/27/25 12:00 60 05/27/25 12:00 Nasal Cannula 6 05/27/25 11:28 88 05/27/25 11:28 86 05/27/25 11:28 93 L Nasal Cannula 6 05/27/25 11:10 69 17 99/69 L 90 L Nasal Cannula 5 05/27/25 11:00 Nasal Cannula 6 05/27/25 10:15 106 H 20 95 05/27/25 10:01 22 05/27/25 10:01 110 H 19 136/53 L 94 L Nasal Cannula 6 05/27/25 09:01 117 H 18 162/75 H 96 Nasal Cannula 6 05/27/25 09:00 Nasal Cannula 05/27/25 08:31 99.7 F H 111 H 16 152/74 H 91 L Nasal Cannula 6 Intake and Output 05/27/25 05/28/25 05/28/25 23:59 07:59 15:59 Intake Total 240 / 1055 190 / 190 Output Total 625 / 1175 450 / 450 Balance -385 / -120 -260 / -260 Intake: Intake, Oral Amount 240 / 840 90 / 90 Intake, Total IV Amount 100 / 100 Meropenem 1 gm In 0.9 % Sodium 100 / 100 Chloride 100 ml @ 100 mls/hr IV Q12H [facility] Rx#:[id number] Output: Output, Urine Amount 625 / 1175 450 / 450 Other: Number of Voids 1 Number of Unmeasured Voids 1 0 Weight 66.224 kg Patient Weight 05/28/25 23:59 Weight 66.224 kg Laboratory Results - last 24 hr 05/27/25 06:40: WBC 15.4 H D, RBC 4.51, Hgb 13.5 D, Hct 41.5, MCV 92.0, MCH 29.7, MCHC 32.3, RDW 12.7, Plt Count 237, MPV 9.8, Neut % (Auto) 79.5, Lymph % (Auto) 7.7 L, [place] % (Auto) 12.0 H, Eos % (Auto) 0.1, Baso % (Auto) 0.2, Neut # (Auto) 12.2 H, Lymph # (Auto) 1.2, [place] # (Auto) 1.9 H, Eos # (Auto) 0.0, Baso # (Auto) 0.0, Total Counted 100, Neutrophils % (Manual) 77 H, Lymphocytes % (Manual) 8 L, Monocytes % (Manual) 14 H, Eosinophils % (Manual) 1, Platelet Estimate Normal, RBC Morphology Normal 05/27/25 11:16: POC Glucose 225 H 05/27/25 11:25: Lactate 2.2 H 05/27/25 13:28: Lactate 2.3 H 05/27/25 13:40: VBG pH 7.43 H, VBG pCO2 47.0, VBG pO2 78.6 H, VBG HCO3 30.6 H, VBG Total CO2 32.1 H, VBG O2 Saturation 96.2 H, VBG Base Excess 6.4 H, VBG Lactic Acid 2.6 H 05/27/25 16:41: POC Glucose 271 H 05/27/25 20:05: POC Glucose 166 H 05/27/25 23:45: Urine Color Yellow, Urine Appearance Clear, Urine pH 6.0, Ur Specific [place] 1.025, Urine Protein Trace, Urine Glucose (UA) Negative, Urine Ketones Negative, Urine Blood 2+ A, Urine Nitrate Negative, Urine Bilirubin Negative, Urine Urobilinogen 0.2, Ur Leukocyte Esterase Negative, Urine RBC 20- 50, Urine WBC Occasional, Ur Squamous Epith Cells Occasional, Urine Bacteria Trace 05/28/25 05:24: WBC 13.1 H, RBC 4.29, Hgb 13.0, Hct 39.4, MCV 91.8, MCH 30.3, MCHC 33.0, RDW 12.6, Plt Count 234, MPV 9.6, Neut % (Auto) 76.6, Lymph % (Auto) 9.8 L, [place] % (Auto) 11.1 H, Eos % (Auto) 1.8, Baso % (Auto) 0.4, Neut # (Auto) 10.0 H, Lymph # (Auto) 1.3, [place] # (Auto) 1.5 H, Eos # (Auto) 0.2, Baso # (Auto) 0.1, Sodium 134 L, Potassium 3.7, Chloride 99, Carbon Dioxide 33 H, Anion Gap 5.7, BUN 38 H D, Creatinine 0.90, Estimated Creat Clear 44, Estimated GFR 60, Est GFR ( Amer) 72 D, Glucose 184 H, Calcium 8.6 05/28/25 06:13: POC Glucose 180 H I & O for Labs for Last 24 Hours: Intake & Output 05/25/25 05/26/25 05/27/25 05/28/25 23:59 23:59 23:59 23:59 Intake Total 1960 / 1959 750 / 760 1025 / 1055 190 / 190 Output Total 100 / 100 2600 / 2600 825 / 1175 450 / 450 Balance 1860 / 1860 -1850 / -1840 200 / -120 -260 / -260 Weight 64.8 kg 64.9 kg 65.771 kg 66.224 kg Microbiology Reports for the Last 24 Hours: Microbiology 05/26/25 17:00 Blood Blood Culture - Preliminary NO GROWTH AFTER 24 HOURS 05/26/25 16:55 Blood Blood Culture - Preliminary NO GROWTH AFTER 24 HOURS Constitutional: Present no acute distress, average body habitus, chronically ill appearing and cooperative Comment:: Irritable Head: Present atraumatic and normocephalic ENT: Present normal exam Neck: Present normal inspection Respiratory: Present prolonged expiratory phase, normal respiratory effort and symmetric chest movement; Absent rhonchi, wheezes or crackles Cardiac: Present Reg Rate and Rhythm and Systolic Murmur GI: Present soft and normal bowel sounds; Absent distention or tenderness Rectal (female): Present deferred (female): Present deferred Comment:: Hoffman catheter in place Extremities: Present normal inspection and tenderness (Left hip, bandage CDI) Skin: Present intact and dry; Absent erythema Neuro: Present Grossly Intact, alert, awake and moves all extremities Comment:: Oriented to self, knows she is in the hospital but does not believe she is at [facility]. Recognizes family at bedside Assessment and Plan *Assessment and plan (1) Left displaced femoral neck fracture: Problem Comment: s/p Hemiarthroplasty DOS 05/26/25 Status: Acute Category: Medical Code(s): S72.002A - Fracture of unspecified part of neck of left femur, initial encounter for closed fracture (2) Fall: Status: Acute Qualifiers: Encounter type: initial encounter Qualified Code(s): W19.XXXA - Unspecified fall, initial encounter Category: Medical Code(s): W19.XXXA - Unspecified fall, initial encounter (3) Hyperglycemia: Status: Acute Category: Medical Code(s): R73.9 - Hyperglycemia, unspecified (4) Hypomagnesemia: Status: Acute Category: Medical Code(s): E83.42 - Hypomagnesemia (5) Leukocytosis: Status: Acute Qualifiers: Leukocytosis type: unspecified Qualified Code(s): D72.829 - Elevated wh ite blood cell count, unspecified Category: Medical Code(s): D72.829 - Elevated white blood cell count, unspecified (6) Mass of adrenal gland: Status: Acute Category: Medical Code(s): E27.8 - Other specified disorders of adrenal gland (7) Acute hypoxic respiratory failure: Status: Acute Category: Medical Code(s): J96.01 - Acute respiratory failure with hypoxia (8) Pleural effusion, bilateral: Status: Acute Category: Medical Code(s): J90 - Pleural effusion, not elsewhere classified (9) Pneumonia: Status: Acute Category: Medical Code(s): J18.9 - Pneumonia, unspecified organism Plan Mr. Hills is a 84-year-old female who presented to the emergency department after a fall at home. She denied loss of consciousness but was found to have a displaced left femoral neck fracture. Hospital medicine was contacted for admission, patient was admitted to hospital medicine. Had surgical fixation on 05/26. Awaiting therapy evals for placement. Weaning oxygen from her re spiratory failure. Showing some improvement in mentation. Problems addressed as follows: #Left displaced femoral neck fracture ? Patient alert and interactive this morning. Working with therapy today. Therapy recommends skilled placement for rehab - Left hip hemiarthroplasty performed 05/26. Had prolonged confusion and sedation after procedure but doing better this morning. - Continue hydrocodone 10 mg every 4 hours as needed for moderate to severe pain. Also has morphine 2 mg IV every 4 hours. Causing some confusion however. Monitor for toxicity. #COPD/Pneumonia #Acute hypoxia ?DuoNebs every 6 hours as needed ordered. Pulmonology consulted. ? Wean oxygen as tolerated, goal sats greater 90%. Currently on 2 L. - Continue Levaquin renally dosed IV - White count improving at 13.1. Hemoglobin 13. Repeat CBC, CMP, magnesium ordered for the morning. #Hypertension: Hold amlodipine, continue irbesartan 300 mg daily. Kidney function stable with BUN 38, creatinine 0.9. #Type 2 diabetes: ACHS fingersticks, SSI. Hold metformin and glyburide in the inpatient setting. Patient appears to be well-controlled, A1c 03/2025 was 6.3%. #Hypomagnesia, resolved: potassium 3.7. Replace electrolytes per protocol #Leukocytosis with left shift: White count improved to 13. Hemoglobin stable at 13. Hemoglobin stable. Continue antibiotics as above. #Mass of the adrenal gland: Currently patient is without any symptomology that denotes adrenal gland dysfunction. Patient can follow-up outpatient at discharge. #Coronary artery disease: Patient has a history of CAD with stent placement, resume aspirin 81 mg and Plavix 75 mg daily today. #Tobacco use disorder: Discussed smoking sensation with patient, nicotine patches ordered. Full code diabetic diet Bed rest Lovenox 40 mg subcu daily
[2025-05-28] MEDS: FUROSEMIDE 40MG/4ML VIAL 40 MG IV (08:45)
[2025-05-28] MEDS: METOPROLOL TARTRATE 50MG TABLET 100 MG PO ×2 (08:45→20:34)
[2025-05-28] MEDS: IRBESARTAN 300MG TABLET 300 MG PO (08:45)
[2025-05-28] MEDS: AMLODIPINE 10MG TABLET 10 MG PO (08:45)
[2025-05-28] MEDS: ACETAMINOPHEN 325MG TAB 650 MG PO (09:05)
[2025-05-28] MEDS: HYDROCODONE/APAP 5/325 MG TABLET 2 TAB PO (10:52)
[2025-05-28] MEDS: humaLOG 100 UNITS/ML 10ML VIAL (SSI) SUBCUT ×2 (11:13→20:35)
[2025-05-28 11:18] LABS: POC Glucose,Bedside 311 gm/dL (70-110)
--- NOTE | 2025-05-28 12:48 | HMH.PTEV ---
Physical Therapy Evaluation Rehab PT IP Evaluation Start: 05/24/25 19:07 Freq: ONCE Status: Active Protocol: Document 05/28/25 12:27 PDESEROUX (Rec: 05/28/25 12:47 [email or web address] [id number]) Subjective/History History History Pt. is a 84 year old female who presents to the ICU at [facility] LE hemiarthroplasty on 05/26/25. Pt. reports, I broke my hip. Pt. describes NEYDA secondary to catching a fork that was falling off of the table at home secondary to I didn't want to bend over to pick it up. Pt. reports she was laying on the floor for 2-3 hours because her daughter was out grocery shopping for her. Pt. reports she usually has her cell phone in her pocket, but states she did not at this time. Pt. reports she lives with her daughter at home. Pt. reports she is mostly able to take care of herself at home, but her daughter provides assistance when needed. Pt. reports her first fall was back in July 2024, and since then her mobility status had been declining. Pt. reports PMH of Pneumonia, Vertigo, TIA, DM-II, Hyperlipidemia, and Degenerative Joint disease. Subjective Subjective Pt. reports, my buttock hurts. Pt.'s daughter was present at [facility] at the time of the Inpatient PT initial evaluation this date. New diagnosis of No cancer in past 12 months? [facility] How much help from another person do you currently need... Turning from your A lot back to your side while in a flat bed without using bedrails? Moving from lying on A lot back to sitting on the side of a flat bed without using bedrails? Moving to and from a A lot bed to a chair ( including a wheelchair)? Standing up from a A lot chair using your arms? (e.g., wheelchair, bedside chair) Walking in hospital Total room? Climbing 3-5 steps Total with a railing? Mobility Score 10 Mobility Level [facility] Mobility 4 Move to chair/commode Mobility Calculator Rehab PT IP Eval Objective Appearance Patient Behavior Cooperative,Sedated,Wandering,Confused Patient Orientation Person,Name Difficulty following moderate instructions Speech Pattern Appropriate,Delayed,Slurred,Includes Profanity, Difficulty Finding Words,Spontaneous Speech Ambulation Patient Able to Yes Ambulate Ambulation Observation IP General Gait Antalgic Gait,Wide Based Gait,Shuffling Step,Decrease Pattern Observation Weight Bear (L),Decrease Stride Lngth (R) Ambulation Distance 2 (feet) Ambulation Assistive Standard Walker Device Ambulation Ability Maximum x 1 (75% assist) Balance Ability to Arise Able, uses arms to help Sitting Balance Leans or slides in chair Standing Balance Unsteady Dynamic Sitting Poor Balance Ability Dynamic Standing Poor Balance Ability Transfers Bed Transfer Ability Maximum x 1 (75% assist) Chair Transfer Maximum x 1 (75% assist) Ability Sit to Stand Bed Maximum x 1 (75% assist) Transfer Ability Sit to Stand Chair Maximum x 1 (75% assist) Transfer Ability Pain Left Hip Pain Intensity 8 ROM LLE PT ROM Status ABN Abnormal ROM Comment hip/knee >20% norms secondary to S/P L LE collin, ankle DF/PF >80% norms RLE PT ROM Status WFL MMT LLE PT MMT ABN Abnormal MMT Grade hip/knee 2/5 grossly secondary to S/P L LE collin, 3+/5 ankle PF/DF RLE PT MMT WFL Rehab PT IP prob,goals,plan Problems Date of Evaluation: 05/28/25 PT IP Problems Bed Mobility,Transfers,Gait,Balance,Self care,Safety Rehab Potential Rehab Potential Good Equipment Needs Assistive Devices Standard Walker,Rolling / Wheeled Walker Plan PT Intervention Plan Bed Mobility,Transfers,Gait,Balance,Self care,Safety, Therapeutic Exercise PT Plan Frequency BID Duration LOS Discharge Goals Bed Transfer Ability Moderate x 1 (50% assist) Sit to Stand Chair Moderate x 1 (50% assist) Transfer Ability Ambulation Assistive Standard Walker,Rolling Walker Device Ambulation Distance 10 (feet) Discharge Plan PT Discharge Plan Upon discharge from [facility], once medically stable per MD, pt. is most appropriate for Short Term Rehab. Without skilled Acute Care Physical Therapy w/ progression to Inpatient Physical Therapy pt. is at an increased risk for falls, fractures, wounds, and further functional decline. Eval Complexity Eval Charge Codes 89580 - Moderate Complexity PHYSICIAN CERTIFICATION: I certify the specified therapy services for Patricia Hills are required, authorized, and reviewed every 30 days.
--- NOTE | 2025-05-28 12:48 | PC.NURSE ---
pt left the icu with med surg staff
[2025-05-28 17:31] LABS: POC Glucose,Bedside 157 gm/dL (70-110)
[2025-05-28 20:08] LABS: POC Glucose,Bedside 274 gm/dL (70-110)
[2025-05-28] MEDS: PANTOPRAZOLE 40MG TABLET 40 MG PO (20:34)
[2025-05-29] VITALS (8 sets, daily range): BP systolic 118–176; BP diastolic 44–68; PULSE 64–78; RESP 16–20; TEMP 36.5–37.1; O2SAT 91–95; BMI 26.4
[2025-05-29] MEDS: MEROPENEM 1 GM in 0.9 % SODIUM CHLORIDE 100 ML IV ×2 (00:41→12:43)
--- NOTE | 2025-05-29 03:37 | PC.NURSE ---
Pt has remained confused only alert to self. She has slept the majority of the shift. She has received IV abx. A new IV was placed in the right AC after patient pulled out previous one. She has remained on 4L nasal cannula. Currently asleep with bed alarm in place.
[2025-05-29] MEDS: humaLOG 100 UNITS/ML 10ML VIAL (SSI) SUBCUT ×2 (05:52→12:12)
[2025-05-29 06:04] LABS: POC Glucose,Bedside 202 gm/dL (70-110)
[2025-05-29 06:35] LABS: Hematocrit 42.2 % (37.0-47.0); Hemoglobin 13.5 g/dL (12.2-16.2); Immature Granulocytes % 0.5 %; Mean Corpuscular HGB Conc 32.0 g/dL (31.8-35.4); Mean Corpuscular Hemoglobin 29.7 pg (27.0-31.2); Mean Corpuscular Volume 93.0 fl (81-99); Nucleated Red Blood Cells % 0 %; Platelet Count 281 K/mm3 (142-424); Red Blood Count 4.54 M/mm3 (4.20-5.40); Red Cell Distribution Width-SD 42.5 fL; White Blood Count 12.5 K/mm3 (4.8-10.8)
[2025-05-29 06:49] LABS: Anion Gap 11.6 mEq/L (5-15); Blood Urea Nitrogen 39 mg/dl (7-17); Calcium 8.9 mg/dl (8.4-10.2); Carbon Dioxide 35 mmol/L (22.0-30.0); Chloride 98 mmol/L (98-107); Creatinine Clearance Estimated 43 mL/min (50-200); Creatinine,Serum 0.80 mg/dl (0.52-1.04); Estimated Glomerular Filt Rate 68 ml/min (>60); GFR (African American) 83 ML/MIN (>60); Glucose 197 mg/dl (74-100); Potassium 3.6 mmoL/L (3.5-5.1); Sodium 141 mmol/L (136-145)
--- NOTE | 2025-05-29 08:33 | EXP.PHA.PN ---
Subjective *Date: 05/29/25 *Time: 08:33 Medical Exam Vital signs and Labs for Last 24 Hours: Vital Signs Temp Pulse Pulse Resp BP BP Pulse Ox 05/29/25 06:38 05/29/25 05:00 05/29/25 04:00 98.0 F 67 16 176/67 H 95 05/29/25 03:00 05/29/25 01:00 05/29/25 00:00 98.8 F 70 18 155/68 H 94 L 05/28/25 23:00 05/28/25 21:00 05/28/25 20:00 05/28/25 19:49 98.2 F 78 16 121/48 L 92 L 05/28/25 18:48 05/28/25 17:00 05/28/25 15:58 98.9 F 63 18 125/46 L 94 L 05/28/25 13:00 05/28/25 12:01 100.1 F H 66 18 96/44 L 94 L 05/28/25 11:00 05/28/25 10:02 86 22 119/96 H 92 L 05/28/25 09:01 100.4 F H 180/71 H 05/28/25 09:00 05/28/25 09:00 05/28/25 08:58 90 O2 Del Method O2 Flow Rate 05/29/25 06:38 Nasal Cannula 4 05/29/25 05:00 Nasal Cannula 4 05/29/25 04:00 Nasal Cannula 4 05/29/25 03:00 Nasal Cannula 4 05/29/25 01:00 Nasal Cannula 4 05/29/25 00:00 Nasal Cannula 4 05/28/25 23:00 Nasal Cannula 4 05/28/25 21:00 Nasal Cannula 4 05/28/25 20:00 Nasal Cannula 4 05/28/25 19:49 Nasal Cannula 4 05/28/25 18:48 Nasal Cannula 4 05/28/25 17:00 Nasal Cannula 4 05/28/25 15:58 Nasal Cannula 4 05/28/25 13:00 Room Air 05/28/25 12:01 Nasal Cannula 4 05/28/25 11:00 Nasal Cannula 5 05/28/25 10:02 Nasal Cannula 5 05/28/25 09:01 05/28/25 09:00 Nasal Cannula 05/28/25 09:00 Nasal Cannula 05/28/25 08:58 Intake and Output 05/28/25 05/29/25 05/29/25 23:59 07:59 15:59 Intake Total 100 / 750 200 / 200 Balance 100 / -425 200 / 200 Intake: Intake, Oral Amount 100 / 100 Intake, Total IV Amount 100 / 200 100 / 100 Meropenem 1 gm In 0.9 % Sodium 100 / 200 100 / 100 Chloride 100 ml @ 100 mls/hr IV Q12H [facility] Rx#:[id number] Other: Number of Bowel Movements 1 Weight 65.091 kg Patient Weight 05/29/25 23:59 Weight 65.091 kg Laboratory Results - last 24 hr 05/28/25 11:11: POC Glucose 311 H* 05/28/25 17:23: POC Glucose 157 H 05/28/25 20:00: POC Glucose 274 H 05/29/25 05:46: WBC 12.5 H, RBC 4.54, Hgb 13.5, Hct 42.2, MCV 93.0, MCH 29.7, MCHC 32.0, RDW 12.4, Plt Count 281, MPV 9.6, Neut % (Auto) 78.0, Lymph % (Auto) 9.4 L, [place] % (Auto) 10.7 H, Eos % (Auto) 1.0, Baso % (Auto) 0.4, Neut # (Auto) 9.8 H, Lymph # (Auto) 1.2, [place] # (Auto) 1.3 H, Eos # (Auto) 0.1, Baso # (Auto) 0.1, Sodium 141, Potassium 3.6, Chloride 98, Carbon Dioxide 35 H, Anion Gap 11.6, BUN 39 H, Creatinine 0.80, Estimated Creat Clear 43, Estimated GFR 68, Est GFR ( Amer) 83, Glucose 197 H, Calcium 8.9 05/29/25 05:50: POC Glucose 202 H I & O for Labs for Last 24 Hours: Intake & Output 05/26/25 05/27/25 05/28/25 05/29/25 23:59 23:59 23:59 23:59 Intake Total 750 / 760 1025 / 1055 650 / 750 200 / 200 Output Total 2600 / 2600 825 / 1175 1175 / 1175 Balance -1850 / -1840 200 / -120 -525 / -425 200 / 200 Weight 64.9 kg 65.771 kg 66.224 kg 65.091 kg Microbiology Reports for the Last 24 Hours: Microbiology 05/26/25 16:55 Blood Blood Culture - Preliminary NO GROWTH AFTER 48 HOURS 05/26/25 17:00 Blood Blood Culture - Preliminary NO GROWTH AFTER 48 HOURS The patient's infection will respond to the chosen ABx?: Yes (BLOOD CX NO GROWTH AT 24 HR, TMAX 100.4, WHITE COUNT ELEVATED AT 12.5) Is the patient receiving the right drug, dose, and route?: Yes Could a more targeted ABx be ordered?: No (PATIENT HAS EXTENSIVE ALLERGY LIST.) How long ABx needed (days)?: 5
--- NOTE | 2025-05-29 09:39 | P.PN_ITS ---
Subjective *Date: 05/29/25 *Time: 12:52 Interval history: No acute respiratory vents over the weekend. Pulmonology Exam Inpatient Vital signs and Labs for Last 24 Hours: Temp Pulse Resp BP Pulse Ox O2 Del Method O2 Flow Rate 98.1 F 73 20 156/60 H 95 Nasal Cannula 4 05/29/25 08:00 05/29/25 08:00 05/29/25 08:00 05/29/25 08:00 05/29/25 08:00 05/29/25 08:00 05/29/25 08:00 FiO2 30 05/27/25 01:50 Laboratory Results - last 24 hr 05/28/25 11:11: POC Glucose 311 H* 05/28/25 17:23: POC Glucose 157 H 05/28/25 20:00: POC Glucose 274 H 05/29/25 05:46: WBC 12.5 H, RBC 4.54, Hgb 13.5, Hct 42.2, MCV 93.0, MCH 29.7, MCHC 32.0, RDW 12.4, Plt Count 281, MPV 9.6, Neut % (Auto) 78.0, Lymph % (Auto) 9.4 L, [place] % (Auto) 10.7 H, Eos % (Auto) 1.0, Baso % (Auto) 0.4, Neut # (Auto) 9.8 H, Lymph # (Auto) 1.2, [place] # (Auto) 1.3 H, Eos # (Auto) 0.1, Baso # (Auto) 0.1, Sodium 141, Potassium 3.6, Chloride 98, Carbon Dioxide 35 H, Anion Gap 11.6, BUN 39 H, Creatinine 0.80, Estimated Creat Clear 43, Estimated GFR 68, Est GFR ( Amer) 83, Glucose 197 H, Calcium 8.9 05/29/25 05:50: POC Glucose 202 H Temp Pulse Resp BP Pulse Ox O2 Del Method O2 Flow Rate 100.3 F H 92 H 18 110/54 L 90 L Room Air 15 05/26/25 11:14 05/26/25 11:14 05/26/25 11:14 05/26/25 11:14 05/26/25 11:14 05/26/25 11:14 05/26/25 08:00 FiO2 50 05/26/25 00:00 Laboratory Results - last 24 hr 05/25/25 12:17: POC Glucose 235 H 05/25/25 12:46: Specimen Source Left radial, O2 % 4 l nc, ABG pH 7.36, ABG pCO2 45.8 H, ABG pO2 51.1 L, ABG HCO3 25.0, ABG Total CO2 26.4, ABG O2 Saturation 85 L*, ABG Base Excess -0.5, Grant Test Acceptable 05/25/25 15:46: POC Glucose 216 H 05/25/25 21:18: POC Glucose 155 H 05/25/25 22:47: SARS-CoV-2 (PCR) Not detected, Influenza Type A (PCR) Not detected, Influenza Type B (PCR) Not detected, RSV (PCR) Not detected, Rhinovirus (PCR) Not detected 05/25/25 22:50: VBG pH 7.40, VBG pCO2 43.8, VBG pO2 110.3 H, VBG HCO3 26.2, VBG Total CO2 27.6 H, VBG O2 Saturation 98.4 H, VBG Base Excess 1.3, VBG Lactic Acid 1.1 05/26/25 10:00: WBC 12.0 H, RBC 5.13, Hgb 15.5, Hct 47.3 H, MCV 92.2, MCH 30.2, MCHC 32.8, RDW 12.7, Plt Count 234, MPV 9.6, Neut % (Auto) 83.7 H, Lymph % (Auto) 10.5, [place] % (Auto) 3.3, Eos % (Auto) 1.7, Baso % (Auto) 0.4, Neut # (Auto) 10.0 H, Lymph # (Auto) 1.3, [place] # (Auto) 0.4, Eos # (Auto) 0.2, Baso # (Auto) 0.1, Sodium 137, Potassium 4.1, Chloride 96 L, Carbon Dioxide 33 H, Anion Gap 12.1, BUN 15, Creatinine 0.70, Estimated Creat Clear 43, Estimated GFR 80, Est GFR ( Amer) 96, Glucose 172 H, Calcium 9.1, Magnesium 1.9 I & O for Labs for Last 24 Hours: Intake & Output 05/26/25 05/27/25 05/28/25 05/29/25 23:59 23:59 23:59 23:59 Intake Total 750 / 760 1025 / 1055 650 / 750 470 / 470 Output Total 2600 / 2600 825 / 1175 1175 / 1175 0 / 0 Balance -1850 / -1840 200 / -120 -525 / -425 470 / 470 Weight 143 lb 1.28 oz 145 lb 146 lb 143 lb 8 oz Intake & Output 05/23/25 05/24/25 05/25/25 05/26/25 23:59 23:59 23:59 23:59 Intake Total 50 / 290 1960 / 1960 100 / 100 Output Total 100 / 100 1600 / 1600 Balance 50 / 290 1860 / 1860 -1500 / -1500 Weight 143 lb 2 oz 142 lb 13.753 oz 143 lb 1.28 oz Microbiology Reports for the Last 24 Hours: Microbiology 05/26/25 16:55 Blood Blood Culture - Preliminary NO GROWTH AFTER 48 HOURS 05/26/25 17:00 Blood Blood Culture - Preliminary NO GROWTH AFTER 48 HOURS Constitutional: Present severe distress Head: Present normocephalic and atraumatic ENT: Present normal exam, normal oropharynx and mucous membranes moist Neck: Present normal inspection and full ROM Respiratory: Present diminished air movement; Absent stridor, wheezes, crackles or able to speak in complete sentences Cardiac: Present Tachycardia; Absent S1/S2 GI: Present soft and distention; Absent tenderness or guarding Rectal (female): Present deferred (female): Present deferred Skin: Present intact; Absent cyanosis or jaundice Neuro: Present awake; Absent alert or oriented x 3 Extremities: Present normal inspection; Absent clubbing or cyanosis Psychiatric: Present unable to assess Assessment and Plan *Assessment and plan (1) Acute hypoxic respiratory failure: Status: Acute Category: Medical Code(s): J96.01 - Acute respiratory failure with hypoxia (2) Pleural effusion, bilateral: Status: Acute Category: Medical Code(s): J90 - Pleural effusion, not elsewhere classified (3) Pneumonia: Status: Acute Category: Medical Code(s): J18.9 - Pneumonia, unspecified organism Plan Ms. Hills is a 84-year-old female around [id number] smoking history not using any oxygen supplementation at baseline and using inhaler therapy presented to the ER status post rib fracture found to have increasing oxygen requirements and pulmonary was called for further evaluation and management. Afebrile. Hemodynamically stable. COVID-19 flu RSV rhino PCR panel negative upon admission. CTA PE protocol no evidence of pulmonary embolism but bilateral small pleural effusion along with adjacent atelectasis/airspace disease. Currently receiving meropenem. ABG from yesterday and VBG from today did not show any evidence of hypercarbic respiratory failure. Oxygen levels within normal limits. Patient currently on 3 L nasal oxygen supplementation. Needing to increasing oxygen commands overnight did significantly improved after diuresis. Patient alert and oriented x 1. No significant wheezing noted on auscultation. Interval update Status post hip replacement. Needed BiPAP therapy for hypercarbic respiratory failure improved, weaned to nasal cannula. Stable oxygen requirements. Low- grade fevers Tmax of 100.1 last 24 hours. Hemodynamically stable. Improving leukocytosis. Discussed with patient and family, patient reaction to levofloxacin include diz ziness abdominal pain diarrhea and unable to sleep. Discussed risks and benefit. The plan was made to change her antibiotics to levofloxacin and monitor. Patient more awake however not oriented. Chest x-ray from this morning reviewed, no acute changes, continue to have lower lobe atelectasis Plan: Incentive spirometry and flutter valve. Continue DuoNebs every 6 hours on a scheduled basis Antibiotics can be weaned to levofloxacin from pulmonary standpoint. Oxygen supplementation to maintain O2 saturation goal of 90% and above. # Thank you for involving pulmonary in this patient care. Will continue to follow.
--- NOTE | 2025-05-29 09:39 | XR_ITS ---
FINAL REPORT CLINICAL HISTORY: Hypoxia COMPARISON: 05/25/2025 FINDINGS: CHEST 1 VIEW The heart size is normal. The mediastinum is normal. The lungs are underinflated. There is scarring noted at the lung bases. There is no focal infiltrate or edema. There are no pleural effusions. There is no pneumothorax. There is no osseous abnormality. IMPRESSION: Underinflation with scarring at the lung bases. No acute cardiopulmonary process. Reviewed, Interpreted and Dictated by Selvin Faith MD Transcribed by Ester Woodall Authenticated and [facility]
[2025-05-29] MEDS: METOPROLOL TARTRATE 50MG TABLET 100 MG PO (09:42)
[2025-05-29] MEDS: IRBESARTAN 300MG TABLET 300 MG PO (09:42)
[2025-05-29] MEDS: HYDROCODONE/APAP 5/325 MG TABLET 1 TAB PO (09:43)
[2025-05-29] MEDS: ASPIRIN EC 81MG TABLET 81 MG PO (09:43)
[2025-05-29] MEDS: POLYETHYLENE GLYCOL 3350 17 GM PACKET PO (09:44)
[2025-05-29] MEDS: CLOPIDOGREL 75MG TAB 75 MG PO (09:44)
[2025-05-29] MEDS: FUROSEMIDE 40MG/4ML VIAL 40 MG IV (09:45)
[2025-05-29] MEDS: IPRATROPIUM/ALBUTEROL 3 ML NEB IH (10:03)
--- NOTE | 2025-05-29 10:24 | P.PN_ITS ---
<Statement entered by Adolfo Gonzales MD - 06/01/25 10:50> Agree with plan of care as outlined by the SENIOR HUMAN RESOURCES REPRESENTATIVE below. Subjective *Date: 05/29/25 *Time: 10:24 Interval history: Ms. Hills doing well this morning, sitting up in bed. She is oriented to self and situation, still having some periods of confusion but understands she is confused. Medically doing well, working with therapy. Currently wearing 2-3 L nasal cannula, O2 saturation greater than 90%. Repeat chest this morning shows no acute cardiopulmonary process. Continue to try to wean O2. Pending placement at this time. Medical Exam Vital signs and Labs for Last 24 Hours: Vital Signs Temp Pulse Pulse Resp BP BP Pulse Ox 05/29/25 10:05 77 05/29/25 10:05 78 05/29/25 10:05 91 L 05/29/25 08:00 98.1 F 73 20 156/60 H 95 05/29/25 06:38 05/29/25 05:00 05/29/25 04:00 98.0 F 67 16 176/67 H 95 05/29/25 03:00 05/29/25 01:00 05/29/25 00:00 98.8 F 70 18 155/68 H 94 L 05/28/25 23:00 05/28/25 21:00 05/28/25 20:00 05/28/25 19:49 98.2 F 78 16 121/48 L 92 L 05/28/25 18:48 05/28/25 17:00 05/28/25 15:58 98.9 F 63 18 125/46 L 94 L 05/28/25 13:00 05/28/25 12:01 100.1 F H 66 18 96/44 L 94 L 05/28/25 11:00 O2 Del Method O2 Flow Rate 05/29/25 10:05 05/29/25 10:05 05/29/25 10:05 Nasal Cannula 4 05/29/25 08:00 Nasal Cannula 4 05/29/25 06:38 Nasal Cannula 4 05/29/25 05:00 Nasal Cannula 4 05/29/25 04:00 Nasal Cannula 4 05/29/25 03:00 Nasal Cannula 4 05/29/25 01:00 Nasal Cannula 4 05/29/25 00:00 Nasal Cannula 4 05/28/25 23:00 Nasal Cannula 4 05/28/25 21:00 Nasal Cannula 4 05/28/25 20:00 Nasal Cannula 4 05/28/25 19:49 Nasal Cannula 4 05/28/25 18:48 Nasal Cannula 4 05/28/25 17:00 Nasal Cannula 4 05/28/25 15:58 Nasal Cannula 4 05/28/25 13:00 Room Air 05/28/25 12:01 Nasal Cannula 4 05/28/25 11:00 Nasal Cannula 5 Intake and Output 05/28/25 05/29/25 05/29/25 23:59 07:59 15:59 Intake Total 100 / 750 200 / 470 270 / 470 Output Total 0 / 0 Balance 100 / -425 200 / 470 270 / 470 Intake: Intake, Oral Amount 100 / 370 270 / 370 Intake, Total IV Amount 100 / 200 100 / 100 Meropenem 1 gm In 0.9 % Sodium 100 / 200 100 / 100 Chloride 100 ml @ 100 mls/hr IV Q12H [facility] Rx#:[id number] Output: Output, Urine Amount 0 / 0 Other: Number of Voids 0 Number of Bowel Movements 1 Weight 65.091 kg Patient Weight 05/29/25 23:59 Weight 65.091 kg Laboratory Results - last 24 hr 05/28/25 11:11: POC Glucose 311 H* 05/28/25 17:23: POC Glucose 157 H 05/28/25 20:00: POC Glucose 274 H 05/29/25 05:46: WBC 12.5 H, RBC 4.54, Hgb 13.5, Hct 42.2, MCV 93.0, MCH 29.7, MCHC 32.0, RDW 12.4, Plt Count 281, MPV 9.6, Neut % (Auto) 78.0, Lymph % (Auto) 9.4 L, [place] % (Auto) 10.7 H, Eos % (Auto) 1.0, Baso % (Auto) 0.4, Neut # (Auto) 9.8 H, Lymph # (Auto) 1.2, [place] # (Auto) 1.3 H, Eos # (Auto) 0.1, Baso # (Auto) 0.1, Sodium 141, Potassium 3.6, Chloride 98, Carbon Dioxide 35 H, Anion Gap 11.6, BUN 39 H, Creatinine 0.80, Estimated Creat Clear 43, Estimated GFR 68, Est GFR ( Amer) 83, Glucose 197 H, Calcium 8.9 05/29/25 05:50: POC Glucose 202 H I & O for Labs for Last 24 Hours: Intake & Output 05/26/25 05/27/25 05/28/25 05/29/25 23:59 23:59 23:59 23:59 Intake Total 750 / 760 1025 / 1055 650 / 750 470 / 470 Output Total 2600 / 2600 825 / 1175 1175 / 1175 0 / 0 Balance -1850 / -1840 200 / -120 -525 / -425 470 / 470 Weight 64.9 kg 65.771 kg 66.224 kg 65.091 kg Microbiology Reports for the Last 24 Hours: Microbiology 05/26/25 16:55 Blood Blood Culture - Preliminary NO GROWTH AFTER 48 HOURS 05/26/25 17:00 Blood Blood Culture - Preliminary NO GROWTH AFTER 48 HOURS Constitutional: Present no acute distress, average body habitus, chronically ill appearing and cooperative; Absent combative or agitated Comment:: Periods of confusion Head: Present atraumatic and normocephalic ENT: Present normal exam Neck: Present normal inspection Respiratory: Present prolonged expiratory phase, normal respiratory effort and symmetric chest movement; Absent rhonchi, wheezes or crackles Cardiac: Present Reg Rate and Rhythm and Systolic Murmur GI: Present soft and normal bowel sounds; Absent distention or tenderness Rectal (female): Present deferred (female): Present deferred Comment:: Hoffman catheter in place Extremities: Present normal inspection and tenderness (Left hip, bandage CDI) Skin: Present intact and dry; Absent erythema Neuro: Present Grossly Intact, alert, awake and moves all extremities Comment:: Oriented to self, situation, what is going on?still having episodes of intermittent confusion. Assessment and Plan *Assessment and plan (1) Left displaced femoral neck fracture: Problem Comment: s/p Hemiarthroplasty DOS 05/26/25 Status: Acute Category: Medical Code(s): S72.002A - Fracture of unspecified part of neck of left femur, initial encounter for closed fracture (2) Fall: Status: Acute Qualifiers: Encounter type: initial encounter Qualified Code(s): W19.XXXA - Unspecified fall, initial encounter Category: Medical Code(s): W19.XXXA - Unspecified fall, initial encounter (3) Hyperglycemia: Status: Acute Category: Medical Code(s): R73.9 - Hyperglycemia, unspecified (4) Hypomagnesemia: Status: Acute Category: Medical Code(s): E83.42 - Hypomagnesemia (5) Leukocytosis: Status: Acute Qualifiers: Leukocytosis type: unspecified Qualified Code(s): D72.829 - Elevated white blood cell count, unspecified Category: Medical Code(s): D72.829 - Elevated white blood cell count, unspecified (6) Mass of adrenal gland: Status: Acute Category: Medical Code(s): E27.8 - Other specified disorders of adrenal gland (7) Acute hypoxic respiratory failure: Status: Acute Category: Medical Code(s): J96.01 - Acute respiratory failure with hypoxia (8) Pleural effusion, bilateral: Status: Acute Category: Medical Code(s): J90 - Pleural effusion, not elsewhere classified (9) Pneumonia: Status: Acute Category: Medical Code(s): J18.9 - Pneumonia, unspecified organism Plan Mr. Hills is a 84-year-old female who presented to the emergency department after a fall at home. She denied loss of consciousness but was found to have a displaced left femoral neck fracture. Hospital medicine was contacted for admission, patient was admitted to hospital medicine. Had surgical fixation on 05/26. Awaiting therapy evals for placement. Weaning oxygen from her respiratory failure. Showing some improvement in mentation. Problems addressed as follows: #Left displaced femoral neck fracture ? Patient alert and interactive this morning. Working with therapy today. Therapy recommends skilled placement for rehab - Left hip hemiarthroplasty performed 05/26. Had prolonged confusion and sedation after procedure but doing better this morning. - Continue hydrocodone 10 mg every 4 hours as needed for moderate to severe pain. Also has morphine 2 mg IV every 4 hours. Causing some confusion however. Monitor for toxicity. #COPD/Pneumonia #Acute hypoxia - DuoNebs every 6 hours as needed ordered. Pulmonology consulted. - Wean oxygen as tolerated, goal sats greater 90%. Currently on 3 L. Respiratory panel pending. - Patient started on meropenem on 05/27/2025, transition to Levaquin 750 mg every 48 hours (renally dosed). - White count improving at 12.5. Hemoglobin 12.5. Repeat CBC, CMP, magnesium ordered for the morning. #Hypertension: Hold amlodipine, continue irbesartan 300 mg daily. Kidney function stable with BUN 39, creatinine 0.8. #Type 2 diabetes: ACHS fingersticks, SSI. Hold metformin and glyburide in the inpatient setting. Patient appears to be well-controlled, A1c 03/2025 was 6.3%. #Hypomagnesia, resolved: potassium 3.7. Replace electrolytes per protocol #Leukocytosis with left shift: White count improved to 12.5. Hemoglobin stable at 13.5. Continue antibiotics as above. #Mass of the adrenal gland: Currently patient is without any symptomology that denotes adrenal gland dysfunction. Patient can follow-up outpatient at discharge. #Coronary artery disease: Patient has a history of CAD with stent placement, aspirin 81 mg and Plavix 75 mg daily resumed. #Tobacco use disorder: Discussed smoking sensation with patient, nicotine patches ordered. Full code diabetic diet Up as tolerated with assistance Lovenox 40 mg subcu daily
--- NOTE | 2025-05-29 10:32 | HMH.OTEV ---
OT Evaluation Rehab OT IP Evaluation Start: 05/25/25 10:16 Freq: ONCE Status: Active Protocol: Document 05/29/25 09:[address] [facility] (Rec: 05/29/25 10:[address] [facility] [id number]) Rehab OT IP Assessment Subjective History Pt oriented x 3 on arrival. Pt admitted on 05/24/25 due to fall at home with L hip fx. Pt. is a 84 year old female who presents to [facility] S/P L LE hemiarthroplasty on 05/26/25. . Pt. reports she lives with her daughter at home. Pt. reports she is mostly able to take care of herself at home, but her daughter provides assistance when needed. Pt. reports her first fall was back in July 2024, and since then her functional ability and independence has been declining. Pt. reports PMH of Pneumonia, Vertigo, TIA, DM-II, Hyperlipidemia, and Degenerative Joint disease. Subjective History and physical: This is an 84-year-old female with a past medical history significant for vertigo, TIA, coronary artery disease with prior coronary artery stenting, vitamin D deficiency, pulmonary nodule, type 2 diabetes , hyperlipidemia, degenerative joint disease, and diabetes who presents with a chief complaint of fall and pain to the left hip post fall. Due to patient's symptoms, she presented to the emergency room for evaluation. 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 Due to these findings, hospital medicine was consulted for further management. During my evaluation of the patient, patient states that she dropped a fork. Upon attempting to garbage pick up man the fork, patient fell. She landed on her floor and was on the floor for approximately 2 hours prior to being found by family members. Post fall patient states that she was having pain to her left hip and could not ambulate. It is worth mentioning that patient does have a history of prior coronary artery disease with prior coronary artery intervention. She is currently on dual antiplatelet therapy and her last dose for aspirin and Plavix was today. Moreover, patient states that prior to the fall she was able to tolerate walking from her mailbox to her house without any shortness of breath and she could climb a flight of stairs without shortness of breath or chest pain. Moreover, patient mentions that she can lift at least 10 pounds or more. This gives patient a metabolic equivalents of at least 4 METS. She is currently denying any chest pain, lightheadedness, dizziness, near-syncope, syncope, shortness of breath, dyspnea, nausea, vomiting, or diarrhea. Additional pertinent vitals obtained including white blood cell count of 16. 5, neutrophils 84%, blood glucose 176, venous lactic acid of 3.6, and magnesium 1.5. Objective Patient Orientation Person,Place,Birthday Bed Mobility bed mobility-scooting,bed mobility - supine/sit Assist Level Maximum x 2 (75% assist) Rehab OT IP prob,goals,plan Problems Date of Evaluation: 05/29/25 OT IP Problems Bed Mobility,Transfers,Balance,Self care,Safety Rehab Potential Rehab Potential Good Equipment Needs Assistive Devices Rolling / Wheeled Walker Plan OT intervention Plan Bed Mobility,Transfers,Balance,Self care,Safety, Therapeutic Exercise OT Plan Frequency Daily Duration LOS Discharge Goals Bed Mobility Ability Assistance x1 Sit to Stand Chair Maximum x 1 (75% assist) Transfer Ability Chair Transfer Maximum x 1 (75% assist) Ability Chair Transfer Stand Step Pivot Technique Chair Transfer Rolling Walker Assistive Devices Lower Body Dressing Maximum Assistance Ability Upper Body Dressing Maximum Assistance Ability Performing Toilet Maximum Assistance Hygiene Ability Overall Commode/ Maximum Assistance Toilet Transfer Ability Commode/Toilet Sit to/from Ambulatory Transfer Technique Discharge Plan OT Discharge Plan Pt will continue to be seen for OT services while at [facility]. At this time, pt would benefit most from short term rehab at [facility] following discharge. Continued skilled therapy is very important in order for patient to improve strength, safety, endurance, ADL independence, and functional transfers to reach [facility]. Eval Complexity Eval Charge Codes 80970 - Moderate Complexity PHYSICIAN CERTIFICATION: I certify the specified therapy services for Patricia Hills are required, authorized, and reviewed every 30 days.
[2025-05-29 12:20] LABS: POC Glucose,Bedside 314 gm/dL (70-110)
--- NOTE | 2025-05-29 12:29 | EXP.ANES.II ---
[facility] Anesthesia Record Part II Anesthesia Record Part II Discharge Time: 15:50 Destination: Medical Surgical Department PACU nurse assessment reviewed?: Yes Patient Condition:: Good Anesthesia Complications:: None Swallowing reflex intact?: Yes Airway Patency: Patent Cyanosis?: No Blood Pressure: 118/53 SaO2: 93 Respiratory Rate: 20 Pulse Rate: 64 Temperature: 98.5 F Mental Status: Lethargic Pain level:: 0 Nausea and/or vomitting:: None Intake, IV Amount: 0 Hydration: Adequate
--- NOTE | 2025-05-29 15:25 | EXP.DC.SUM ---
General Admission date:: 05/24/25 HPI HPI HPI: This is an 84-year-old female with a past medical history significant for vertigo, TIA, coronary artery disease with prior coronary artery stenting, vitamin D deficiency, pulmonary nodule, type 2 diabetes, hyperlipidemia, degenerative joint disease, and diabetes who presents with a chief complaint of fall and pain to the left hip post fall. Due to patient's symptoms, she presented to the emergency room for evaluation. 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 Due to these findings, hospital medicine was consulted for further management. \ Patient took Plavix yesterday morning. Did not take the aspirin in the evening. Suffered a displaced left femoral neck fracture. Orthopedics consulted for definitive treatment options. Hospital Course Hospital Course Hospital Course: Ms. Hills is a 84-year-old female who presented to the emergency department after a fall at home. She denied loss of consciousness but was found to have a displaced left femoral neck fracture. Hospital medicine was contacted for admission, patient was admitted to hospital medicine. Had surgical fixation on 05/26. #Left displaced femoral neck fracture - Orthopedic surgery consulted, Left hip hemiarthroplasty performed 05/26. Had prolonged confusion and sedation after procedure but doing better this morning. ? Patient alert and interactive this morning. Working with PT/OT. Therapy recommends skilled placement for rehab, [facility] graciously accepted patient. - Continue Astor 5-10 mg every 4 hours as needed for moderate to severe pain. #COPD/Pneumonia #Acute Hypoxic respiratory failure ? CTA chest revealing small bibasilar opacities with small pleural effusions. Requiring 4 L nasal cannula. Treated with meropenem due to allergies, continue levofloxacin 750 mg every 48 hours for 3 more days. ? Continue DuoNebs every 6 hours scheduled. ? Follow-up with pulmonology within 2 weeks. Wean oxygen as tolerated. #Hypertension: Continue irbesartan 300 mg daily. Decrease metoprolol to tartrate to 25 mg twice daily in the setting of falls, discontinue amlodipine 10 mg. #Type 2 diabetes: Patient appears to be well-controlled, A1c 03/2025 was 6.3%.Continue home metformin 500 mg twice daily, discontinue glyburide. #Mass of the adrenal gland: Currently patient is without any symptomology that denotes adrenal gland dysfunction. Patient can follow-up outpatient at discharge. #Coronary artery disease: Patient has a history of CAD with stent placement, aspirin 81 mg and Plavix 75 mg daily resumed. #Tobacco use disorder: Discussed smoking sensation with patient, nicotine patches ordered. Total time spent on discharge: 32 minutes on chart review, counseling, documentation, and direct care with patient. Exam Data for Last 24 hours Vital signs and Labs for Last 24 Hours: Temp Pulse Resp BP Pulse Ox O2 Del Method O2 Flow Rate 97.7 F 69 20 136/44 L 92 L Nasal Cannula 4 05/29/25 11:58 05/29/25 11:58 05/29/25 14:38 05/29/25 11:58 05/29/25 11:58 05/29/25 12:32 05/29/25 12:32 FiO2 30 05/27/25 01:50 Laboratory Results - last 24 hr 05/28/25 17:23: POC Glucose 157 H 05/28/25 20:00: POC Glucose 274 H 05/29/25 05:46: WBC 12.5 H, RBC 4.54, Hgb 13.5, Hct 42.2, MCV 93.0, MCH 29.7, MCHC 32.0, RDW 12.4, Plt Count 281, MPV 9.6, Neut % (Auto) 78.0, Lymph % (Auto) 9.4 L, [place] % (Auto) 10.7 H, Eos % (Auto) 1.0, Baso % (Auto) 0.4, Neut # (Auto) 9.8 H, Lymph # (Auto) 1.2, [place] # (Auto) 1.3 H, Eos # (Auto) 0.1, Baso # (Auto) 0.1, Sodium 141, Potassium 3.6, Chloride 98, Carbon Dioxide 35 H, Anion Gap 11.6, BUN 39 H, Creatinine 0.80, Estimated Creat Clear 43, Estimated GFR 68, Est GFR ( Amer) 83, Glucose 197 H, Calcium 8.9 05/29/25 05:50: POC Glucose 202 H 05/29/25 12:08: POC Glucose 314 H* I & O for Last 24 hours: Intake & Output 05/26/25 05/27/25 05/28/25 05/29/25 23:59 23:59 23:59 23:59 Intake Total 750 / 760 1025 / 1055 650 / 750 690 / 690 Output Total 2600 / 2600 825 / 1175 1175 / 1175 0 / 0 Balance -1850 / -1840 200 / -120 -525 / -425 690 / 690 Weight 64.9 kg 65.771 kg 66.224 kg 65.091 kg Microbiology Reports for the Last 24 Hours: Microbiology 05/26/25 16:55 Blood Blood Culture - Preliminary NO GROWTH AFTER 48 HOURS 05/26/25 17:00 Blood Blood Culture - Preliminary NO GROWTH AFTER 48 HOURS Constitutional Constitutional: no acute distress *Routine HEENT Exam Head: Present normocephalic Eye: Present EOMI and PERRL ENT: Present mucous membranes moist *Routine Neck Exam Neck: Present supple; Absent lymphadenopathy *Routine Respiratory Exam Respiratory: Present CTA bilaterally *Routine Cardiovascular Exam Cardiovascular: Present RRR *Routine Abdominal Exam Abdominal: Present soft and normoactive bowel sounds; Absent tenderness *Routine Extremities Exam Extremities: Absent cyanosis, clubbing or edema Comments: Left hip dressed and wrapped. *Routine Skin Exam Skin: Present warm; Absent rash *Routine Neurological Exam Neurological: Present alert and oriented X3 Results Data Completed and Pending Labs on day of discharge: Labs from last 24 hours 05/29/25 05/29/25 05/29/25 12:08 05:50 05:46 WBC 12.5 H RBC 4.54 Hgb 13.5 Hct 42.2 MCV 93.0 MCH 29.7 MCHC 32.0 RDW 12.4 Plt Count 281 MPV 9.6 Neut % (Auto) 78.0 Lymph % (Auto) 9.4 L [place] % (Auto) 10.7 H Eos % (Auto) 1.0 Baso % (Auto) 0.4 Neut # (Auto) 9.8 H Lymph # (Auto) 1.2 [place] # (Auto) 1.3 H Eos # (Auto) 0.1 Baso # (Auto) 0.1 Sodium 141 Potassium 3.6 Chloride 98 Carbon Dioxide 35 H Anion Gap 11.6 BUN 39 H Creatinine 0.80 Estimated Creat Clear 43 Estimated GFR 68 Est GFR ( Amer) 83 Glucose 197 H POC Glucose 314 H* 202 H Calcium 8.9 05/28/25 05/28/25 20:00 17:23 WBC RBC Hgb Hct MCV MCH MCHC RDW Plt Count MPV Neut % (Auto) Lymph % (Auto) [place] % (Auto) Eos % (Auto) Baso % (Auto) Neut # (Auto) Lymph # (Auto) [place] # (Auto) Eos # (Auto) Baso # (Auto) Sodium Potassium Chloride Carbon Dioxide Anion Gap BUN Creatinine Estimated Creat Clear Estimated GFR Est GFR ( Amer) Glucose POC Glucose 274 H 157 H Calcium Preliminary micro results at discharge 05/26/25 16:55 Blood Culture - Preliminary Blood NO GROWTH AFTER 48 HOURS 05/26/25 17:00 Blood Culture - Preliminary Blood NO GROWTH AFTER 48 HOURS DS: Diagnosis Discharge Diagnosis (1) Left displaced femoral neck fracture: Status: Acute Code(s): S72.002A - Fracture of unspecified part of neck of left femur, initial encounter for closed fracture Problem details: s/p Hemiarthroplasty DOS 05/26/25 (2) Fall: Status: Acute Code(s): W19.XXXA - Unspecified fall, initial encounter Qualifiers: Encounter type: initial encounter Qualified Code(s): W19.XXXA - Unspecified fall, initial encounter (3) Hyperglycemia: Status: Acute Code(s): R73.9 - Hyperglycemia, unspecified (4) Hypomagnesemia: Status: Acute Code(s): E83.42 - Hypomagnesemia (5) Leukocytosis: Status: Acute Code(s): D72.829 - Elevated white blood cell count, unspecified Qualifiers: Leukocytosis type: unspecified Qualified Code(s): D72.829 - Elevated white blood cell count, unspecified (6) Mass of adrenal gland: Status: Acute Code(s): E27.8 - Other specified disorders of adrenal gland (7) Acute hypoxic respiratory failure: Status: Acute Code(s): J96.01 - Acute respiratory failure with hypoxia (8) Pleural effusion, bilateral: Status: Acute Code(s): J90 - Pleural effusion, not elsewhere classified (9) Pneumonia: Status: Acute Code(s): J18.9 - Pneumonia, unspecified organism Meds Home Medications and Allergies Home Medications ?Medication ?Instructions ?Recorded ?Confirmed ?Type aspirin 81 mg tablet,delayed 81 mg PO DAILY #100 tabs 07/06/24 05/25/25 Rx release clopidogrel 75 mg tablet (Plavix) 75 mg PO DAILY #90 tabs 07/06/24 05/25/25 Rx nebulizer accessories #1 ea 08/08/24 05/25/25 Rx nebulizers #1 ea 08/08/24 05/25/25 Rx blood sugar diagnostic (OneTouch #50 ea 04/03/25 05/25/25 Rx Verio test strips) cholecalciferol (vitamin D3) 25 25 mcg PO DAILY 04/03/25 05/25/25 History mcg (1,000 unit) capsule citalopram 10 mg tablet 5 mg (1/2 x 10 mg) PO BID #30 tabs 04/03/25 05/25/25 Rx rosuvastatin 5 mg tablet 5 mg PO HS #90 tabs 04/26/25 05/25/25 Rx metformin 500 mg tablet,extended 500 mg PO BID #60 tabs 05/10/25 05/25/25 Rx release 24 hr betamethasone dipropionate 0.05 % 1 applic topical BIDP PRN skin 05/25/25 05/25/25 History topical cream irritation albuterol sulfate 90 mcg/actuation 2 puff inhalation Q6H PRN 05/29/25 05/25/25 Rx aerosol inhaler (Ventolin HFA) Shortness of breath 30 days #0 grams hydrocodone 5 mg-acetaminophen 325 1 tab PO Q4HP PRN pain #18 tabs 05/29/25 Rx mg tablet ipratropium 0.5 mg-albuterol 3 mg 3 ml inhalation Q6RT 30 days #90 mL 05/29/25 Rx (2.5 mg base)/3 mL nebulization soln irbesartan 300 mg tablet 300 mg PO DAILY 30 days #30 tabs 05/29/25 Rx levofloxacin 750 mg tablet 750 mg PO Q48H 3 days #2 tabs 05/29/25 Rx metoprolol tartrate 50 mg tablet 25 mg (1/2 x 50 mg) PO BID 30 days 05/29/25 Rx #30 tabs pantoprazole 40 mg tablet,delayed 40 mg PO HS 30 days #30 tabs 05/29/25 Rx release New Prescriptions to Start Prescriptions: hydrocodone-acetaminophen Adolfo Gonzales ipratropium-albuterol Adolfo Gonzalesesartan Adolfo Gonzales levofloxacin Janet,Adolfo metoprolol tartrate Janet,Adolfo pantoprazole Adolfo Gonzales Allergies Allergy/AdvReac Type Severity Reaction Status Date / Time Penicillins Allergy Severe swelling Verified 04/03/25 09:02 doxycycline Allergy Mild Unknown Verified 05/29/25 13:53 allergy reaction levofloxacin (From Levaquin) Allergy Anaphylaxis Verified 05/29/25 13:53 moxifloxacin (From Avelox) Allergy Hives Verified 05/29/25 13:53 brompheniramine AdvReac Unknown Verified 05/29/25 13:53 allergy reaction bupivacaine (From Marcaine) AdvReac Unknown Verified 05/29/25 13:53 allergy reaction cephalexin (From Keflex) AdvReac Unknown Verified 05/29/25 13:53 allergy reaction clarithromycin AdvReac Unknown Verified 05/29/25 13:53 allergy reaction fluvastatin (From Lescol) AdvReac Unknown Verified 05/29/25 13:53 allergy reaction hydrochlorothiazide AdvReac Unknown Verified 05/29/25 13:53 allergy reaction lovastatin (From Altocor) AdvReac Unknown Verified 05/29/25 13:53 allergy reaction nitrofurantoin (From AdvReac Unknown Verified 05/29/25 13:53 Macrobid) allergy reaction triamcinolone (From Kenalog) AdvReac Unknown Verified 05/29/25 13:53 allergy reaction Discharge Plan Disposition Patient Disposition: [facility] Bed Condition: Fair Discharge Order Discharge Orders: Discharge Order (Routine); Ordered 05/29/25 Ordered By: Adolfo Gonzales Follow up Plan Follow up with: Joselo Oretga DO [Staff Physician, Orthopedics] - 06/12/25 9:30 am Prescriptions/Medication Reconciliation: New pantoprazole 40 mg Tablet,Delayed Release (Dr/Ec) 40 mg PO HS 30 Days Qty: 30 0RF metoprolol tartrate 50 mg Tablet 25 mg PO BID 30 Days Qty: 30 0RF levofloxacin 750 mg Tablet 750 mg PO Q48H 3 Days Qty: 2 0RF irbesartan 300 mg Tablet 300 mg PO DAILY 30 Days Qty: 30 0RF hydrocodone-acetaminophen 5-325 mg Tablet 1 tab PO Q4HP PRN (Reason: pain) Qty: 18 0RF ipratropium-albuterol 0.5 mg-3 mg(2.5 mg base)/3 mL Solution For Nebulization 3 ml inhalation Q6RT 30 Days Qty: 90 0RF Continued clopidogrel [Plavix] 75 mg tablet 75 mg PO DAILY Qty: 90 3RF aspirin 81 mg tablet,delayed release (DR/EC) 81 mg PO DAILY Qty: 100 10RF (DME) nebulizers Misc See Rx Instructions .MEDSUPPLY Qty: 1 0RF Rx Instructions: As directed (DME) nebulizer accessories Kit See Rx Instructions .MEDSUPPLY Qty: 1 0RF Rx Instructions: As directed cholecalciferol (vitamin D3) 25 mcg (1,000 unit) capsule 25 mcg PO DAILY (DME) OneTouch Verio test strips Strip See Rx Instructions .Route Qty: 50 11RF Rx Instructions: As directed citalopram 10 mg tablet 5 mg PO BID Qty: 30 5RF rosuvastatin 5 mg tablet 5 mg PO HS Qty: 90 1RF metformin 500 mg tablet extended release 24 hr 500 mg PO BID Qty: 60 2RF Patient Comments: TAKE 2 TABLETS BY MOUTH ONCE DAILY. betamethasone dipropionate 0.05 % cream 1 applic topical BIDP PRN (Reason: skin irritation) Changed albuterol sulfate [Ventolin HFA] 90 mcg/actuation HFA aerosol inhaler 2 puff inhalation Q6H PRN (Reason: Shortness of breath) 30 Days Qty: 0 0RF Discontinued metoprolol tartrate 100 mg tablet 100 mg PO BID Qty: 60 3RF Patient Comments: TAKE 1 TABLET BY MOUTH TWICE DAILY. amlodipine-valsartan 10-320 mg tablet 1 tab PO DAILY Qty: 90 1RF Patient Comments: TAKE 1 TABLET BY MOUTH ONCE DAILY. glyburide 5 mg tablet 20 mg PO DAILY omeprazole 40 mg capsule,delayed release(DR/EC) 40 mg PO DAILY Problem Reconciliation Problems Reviewed?: Yes Patient Discharge Instructions Patient Instructions: DI for Pneumonia -- Adult, DI for Hip Fracture, DI for Surgical Site Infection, DI for Pleural Effusion, Stop Light Pneumonia, Stop Light Infection Print Language: [place] Providers Primary Care Provider: Aracely Thomas Admit Provider: Adolfo Gonzales Attending Provider: Adolfo Gonzales
[2025-05-29 16:24] LABS: Adenovirus,PCR Not Detected (NotDetected); Chlamydophila Pneumoniae, PCR Not Detected (NotDetected); Coronavirus 19, PCR Not Detected (NotDetected); Coronovirus HKU1,PCR Not Detected (NotDetected); Influenza A, PCR Not Detected (NotDetected); Influenza AH1, 2009 Not Detected (NotDetected); Influenza AH1, PCR Not Detected (NotDetected); Influenza AH3,PCR Not Detected (NotDetected); Influenza B, PCR Not Detected (NotDetected); Mycoplasma Pneumoniae, PCR Not Detected (NotDetected); Parainfluenza 1, PCR Not Detected (NotDetected); Parainfluenza 2, PCR Not Detected (NotDetected); Parainfluenza 3, PCR Not Detected (NotDetected); Parainfluenza 4, PCR Not Detected (NotDetected)
== END 2025-05-29 16:27 | disposition swing bed (61) | DRG 521 ==
LOC: ER 17:30 → 2ND 18:05 → ICU 05-26 15:44 → 2ND 05-28 11:25
PROVIDERS: Internal Medicine; Internal Medicine Pulmonary Disease; Nurse Anesthetist, Certified Registered; Nurse Practitioner Family; Orthopaedic Surgery; Physician Assistant; Admitting Provider Student in an Organized Health Care Education/Training Program; Emergency Provider Student in an Organized Health Care Education/Training Program; PCP Nurse Practitioner; Visit Provider Student in an Organized Health Care Education/Training Program
PROC: 0SRS0JA Replacement of Left Hip Joint, Femoral Surface with Synthetic Substitute, Uncemented, Open Approach (ICD-10-PCS; principal; 2025-05-26 12:00)
DX: S72.002A Fracture of unspecified part of neck of left femur, initial encounter for closed fracture (principal); G93.41 Metabolic encephalopathy; J18.9 Pneumonia, unspecified organism; J96.01 Acute respiratory failure with hypoxia; J44.0 Chronic obstructive pulmonary disease with (acute) lower respiratory infection; J90 Pleural effusion, not elsewhere classified; I10 Essential (primary) hypertension; E11.65 Type 2 diabetes mellitus with hyperglycemia; I25.10 Atherosclerotic heart disease of native coronary artery without angina pectoris; E78.5 Hyperlipidemia, unspecified; E27.8 Other specified disorders of adrenal gland; E83.42 Hypomagnesemia; F17.210 Nicotine dependence, cigarettes, uncomplicated; R91.1 Solitary pulmonary nodule; Y92.009 Unspecified place in unspecified non-institutional (private) residence as the place of occurrence of the external cause; Z95.5 Presence of coronary angioplasty implant and graft; Z86.73 Personal history of transient ischemic attack (TIA), and cerebral infarction without residual deficits; Z88.0 Allergy status to penicillin; Z88.1 Allergy status to other antibiotic agents; Z88.4 Allergy status to anesthetic agent; Z88.8 Allergy status to other drugs, medicaments and biological substances; Z79.82 Long term (current) use of aspirin; Z79.02 Long term (current) use of antithrombotics/antiplatelets; Z79.84 Long term (current) use of oral hypoglycemic drugs; Z79.899 Other long term (current) drug therapy
CPT/HCPCS: 0223U; 36415; 36600; 51702; 70450; 71045; 71275; 72125; 72128; 72131; 72170; 72192; 73030; 73502; 73552; 74177; 80048; 80053; 81001; 82550; 82607; 82746; 82803; 82962; 83605; 83735; 83880; 84145; 84443; 84484; 84550; 85007; 85025; 87040; 87631; 93005; 93306; 94640; 94660; 94761; 96374; 97162; 97166; 97530; 99285; C1776; J0131; J0736; J1100; J1171; J1200; J1650; J1938; J2003; J2185; J2270; J2359; J2371; J2405; J2704; J3010; J3475; J7030; Q9967

== ENCOUNTER 2025-06-12 13:09 | Outpatient (CLI) | payer MEDICARE, MEDICAID, SELFPAY ==
--- OUTSIDE RECORDS SUMMARY | 2025-05-29 17:44 | XMS_ITS | Encounter Summary ---
Author Organization [place] [address] Care Team Providers Care Body Designer Name Role Phone Unavailable Primary Care Provider Unavailabl e Reason for Visit * Auth/Cert/Inpt Specialty Diagnoses / Procedures Referred By Francisco J walter Referred To Contact Diagnoses Fracture Referral ID Status Reason Start Date Expiration Date Visits Re quested Visits Authorized [id number] Encounter Details Date Type Department Care Team (Latest Contact Info) Description 05/29/2025 5:44 PM EDT - 06/12/2025 11:24 AM EDT Hospital Encounter [facility] DETENTION [address] [place] [id number] 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 (Primary Dx); Resides [...] 05/29/2025 10:33 PM Paradise Ha RN * [place] Suicide Severity Rating Scale (Q shift for [...] Zamarripa MD - 06/12/2025 6:57 AM EDT [facility] Discharge Summary Patient Name: Patricia Hills : 1940 Admit Date: 05/29/2025 Discharge Date: 06/12/2025 Admitting Physician: Hugh Zamarripa MD Discharge Physician: Hugh Zamarripa MD Reason for Hospitalization: Active Hospital Problems Hypokalemia Hypomagnesemia Shortness of breath Type 2 diabetes mellitus without complication, without long-term current use of insulin (HCC) Essential hypertension 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 Patient admitted to [facility] for detention and rehab, noted in hospital [...] Diagnoses: Fractured hip, left, closed, initial encounter ([facility]) Condition at Discharge: stable Disposition: Home [...] Your Medications These medications were sent to [facility] [place] [address] - [address] [facility] [phone] [address] [facility] [address] cyanocobalamin 1,000 mcg/mL Soln insulin glargine U-100 [...] Means Destination Comment s Home or Self [facility] documented in this encounter Progress Notes * Stephany Lopez LPN - 06/11/2025 11:02 PM EDT Pain in hip at shift change, PRN pain med given, 2200 tylenol held as patient was sleeping comfortably. No abnormal behavior so far this shift. Call light in reach, will continue to observe. * Jaent Porras RN - 06/11/2025 6:39 PM EDT [...] Kylah. Kylah called and spoke with pt. CONTAINER FINISHER notified and aware. Pt up in the [...] a pneumonia prior to being admitted here. CONTAINER FINISHER notified with orders for CXR and labs. 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 Adrenal adenoma, [...] Essential hypertension ?? 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 Vital signs are normal. No fever. Output: [...] - 06/09/2025 1:07 PM EDT 06/09/25 1254 [facility] OT Subjective Note Type Treatment/Progress OT Subjective [...] placement, RW placement, and sequencing.) Additional Comments EVENT SPECIALIST present during session due to agitation/confusion for [...] to sit on L arm rest of [facility] over commode and chair in room. Exercise [...] so placed pt breakfast order. Others Present/Assisting RN Mirian cleared pt for PT. DHARA Pascual performed [...] bed 88-Not attempted Sit to stand 4-Supv Chair/Tfl-ts-bsvwg transfer 4-Supv Toilet transfer 88-Not attempted Tub/Shower [...] patient need. Time In / Time Out [id number] [facility] Actual Physical Therapy Minutes LT PT Ind Therapy Min 49 (12Gt, 15Ex) * Geo Sargent V DO - 06/08/2025 11:56 PM EDT Patricia Hills is a 84 y.o. female patient. Assessment: Condition: In stable condition. Improving. Present on Admission: ?? Fractured hip, left, closed, initial encounter (HCC) ?? Type 2 diabetes mellitus without complication, without long-term current use of insulin ([facility]) ?? Essential hypertension ?? 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 Adrenal adenoma, [...] complication, without long-term current use of insulin ([facility]) ?? Essential hypertension ?? 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 Viral Arie Merchant DO 06/08/2025 11:56 PM * Breana Griffin RRT - 06/08/2025 6:21 PM EDT 06/08/25 1820 [...] - 06/08/2025 1:51 PM EDT 06/08/25 1332 [facility] OT Subjective Note Type Treatment/Progress OT Subjective [...] pt that she needed to move to lobby for new perspective and for mental/emotional health [...] with pt sitting in rocking chair in lobbyin attempt to decrease agitation, etc. Pt continued to state, They will laugh at me. Pt educated that no one is present in lobby except pt/dtr/staff. Assessment Progress Slow progress, multiple [...] Macario, PT - 06/08/2025 9:43 AM EDT 10/09/25 0825 SNF PT Subjective Note Type Treatment/Progress [...] of bed 4-Supv Sit to stand 4-Supv Chair/Blr-og-ajala transfer 4-Supv Toilet transfer 88-Not attempted Tub/Shower [...] this time. Time In / Time Out [facility] Actual Physical Therapy Minutes LTC PT Ind [...] during sessions and requires redirection/education at times. [facility] OT Weekly Progress Note ADL Assistance First Filed Feeding Grooming Supervision, Oral care, Hair care, Washing hands, Washing face (from seated position.) (05/30/25 132) Bathing UE Unable to assess (comment) (pt declined multiple attempts-reports desire to wait for Mirian-RN despite OT explaining OT role.) (06/02/251642) Bathing LE Unable to assess (comment) (pt declined multiple attempts-reports desire to wait for Mirian-RN despite OT explaining OT role.) (06/02/25 164) Dressing UE Set up ([facility] gown and donned pullover shirt.) (06/01/25 150) Dressing LE Contact guard, With verbal cues, Pull up over hips, Thread LLE into underwear, Thread RLE into underwear, Thread LLE into pants, Thread RLE into pants, Don/doff L sock, Don/doff R sock (Pt educated on use of tin stacker/sock aid for LB dressing. Pt doffed/donned socks with CGA and MAX verbal cues for technique. CGA and MOD verbal cues to don pants with tin stacker. MAX cues to hold RW at all times with 1 hand at a minimum to decrease fall risk.) (06/01/25 150) Toileting Other (comment) (Pt declined need for toileting.) (05/30/25 132) Toilet Transfers Tub Transfers Shower Transfers Transfer Additional Comments Nsg educated that due to staff reporting MAX A of 2, to have BSC placed by chair versus attempting to walk to bathroom at this time for safety for pt and staff. () Homemaking Equipment Recommended ADL Assistance Feeding Grooming Set up, Hair care, Washing hands, Washing face (06/06/25 124) Bathing UE Set up (06/06/25 124) Bathing LE Minimal, L lower leg/foot (Pt refused to wash periarea or buttocks stating, That was washed earlier today and it doesn't need it again. I am afraid that will hurt my hip. ) (06/06/251239) Dressing UE Set up ([facility] gown and donned pullover shirt. Declined bra) (06/06/251239) Dressing LE Contact guard, With verbal cues, Don/doff L shoe, Don/doff R shoe, Pull up over hips, Thread RLE into pants, Thread LLE into pants, Don/doff L sock, Don/doff R sock (Pt able to use tin stacker/sock aid for LB dressing with MOD cues and CGA. Dtr present to see use of tin stacker. Pt stated, Well can't you pull my pants up? Pt/dtr educated that OT will not be present at home and pt able to pull pants up over hips with CGA.) (06/06/25 1240) Toileting Other (comment) (declined need) (06/06/25 1240) Toilet Transfers CGA Tub Transfers Dependent Shower Transfers CGA at minimum. Transfer Additional Comments Nsg educated that due to staff reporting MAX A of 2, to have BSC placed by chair versus attempting to walk to bathroom at this time for safety for pt and staff. (320) Homemaking Dependent except for folding laundry at this time. Equipment Recommended hand held shower head, tin stacker, sock aid, long handled sponge, grab bars. D/C plan: Pt reports plan to potentially return home on 06/09/25 pending status and family concerns. Plan: Continue to see pt 5x a week to continue to work towards goals. Celso Walker OTR/Judson 06/07/2025 * Celso Walker OT - 06/07/2025 5:27 PM EDT 06/07/25 [...] alarm activated Additional Comments Call light within tin stacker. Pt asked OT to put items on [...] recommended. Time In / Time Out 16:53-17:06 [facility] Actual Occupational Therapy Minutes [facility] Individual Therapy Minutes (!) 13 * Tru Katya, PT - 06/07/2025 10:16 AM EDT 06/07/25 [...] discharge Time In / Time Out 933/1007 [facility] Actual Physical Therapy Minutes LTC PT Ind Therapy Min 34 Katya Ott, PT * Gracie Null RN - 06/07/2025 9:30 AM EDT Images from the original note were not included. WOUND CARE: Please see LDA(s) for complete documentation and assessment. Pt admitted for: Fracture [T14.8XXA] Fractured hip, left, closed, initial encounter ([facility]) [S72.002A] Upon assessment, pt with the [...] aid in wound healing. Orders updated in [facility]. Primary nurse updated. Will continue to [...] Essential hypertension ?? 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 Adrenal adenoma, [...] Essential hypertension ?? 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 Vital signs are normal. No fever. Output: [...] hip. ) UE Dressing Assistance Set up ([facility] gown and donned pullover shirt. Declined bra) LE Dressing Assistance Contact guard;With verbal cues;Don/doff L shoe;Don/doff R shoe;Pull up over hips;Thread RLE into pants;Thread LLE into pants;Don/doff L sock;Don/doff R sock (Pt able to use tin stacker/sock aid for LB dressing with MOD cues and CGA. Dtr present to see use of tin stacker. Pt stated, Well can't you pull my [...] Minutes LTC Individual Therapy Minutes 40 * MainJeannette, SPRING SALVAGE WORKER - 06/06/2025 12:50 PM EDT 06/06/25: Patient [...] continue skilled, HHPT at discharge. Equip recommendations tin stacker, sock aid, long handled sponge D/c date [...] participation and willingness to follow recommendations. Celso Walker OTR/L 06/06/25 PT Summary/Recommendation: Patient is progressing [...] thin is recommended and no further acute ASSOCIATE VICE PRESIDENT dysphagia intervention is warranted at this time. [...] liquids Assistance/Supervision: Independent Resident/caregiver education Alisha Castillo CCC-ASSOCIATE VICE PRESIDENT Care Conference held this date with resident [...] be faxed same date. Resident agreeable to [facility] ([facility]) services at discharge. Referral sent to [facility] and orders placed on chart. Jeannette Quach [...] therapy recommended. Time In / Time Out 956/1011 [facility] Actual Physical Therapy Minutes [facility] PT Ind Therapy Min 15 Silvia Diaz PT, DPT * Katya Ott, PT - [...] Hills has made progress as noted below [facility] PT Weekly Progress Note Functional Mobility First Filed Supine to Sit Moderate assistance, With 2 people, With cues (05/30/25951) Sit to Supine Moderate assistance (assist with LLE. CGA at trunk to encourage correct alignment in the bed.) (06/05/25 1025) Sit to Stand Moderate assistance, With 2 people, Walker, With verbal cues (05/30/25951) Stand to Sit Moderate assistance, With 2 people, With verbal cues (05/30/25951) Gait Not performed (05/30/25951) Gait Distance (Feet) 20 Feet (05/31/25 1104) Assistive Device 2 Wheel walker (05/31/25 1104) Pattern Slow desiree, Flexed posture (05/31/25 1104) Weight Bearing Status Weight bearing as tolerated (05/31/25 110) Additional Comments Ambulated a little bit into hallway to turn around before returning to sit in the chair. Needs cueing to keep walker close to her. (05/31/25 110) Stair Management Technique Stair Management Assistance Not performed (05/30/25951) Number of Stairs Gait Additional Comments Sitting Balance 2/5 supports self independently with both UEs (05/30/25951) Standing Balance 1+/5>50% (minimal assistance) (05/30/25951) Other Functional Mobility Supine to Sit Contact guard assist (06/01/25928) Sit to Supine Moderate assistance (assist with LLE. CGA at trunk to encourage correct alignment in the bed.) (06/05/25 102) Sit to Stand Contact guard assist, With verbal cues (06/06/25840) Stand to Sit Contact guard assistance, With verbal cues (06/06/25840) Gait Contact guard assist, Minimal assistance (06/06/25840) Gait Distance (Feet) 70 Feet (06/06/25840) Assistive Device 2 Wheel walker (06/06/25840) Pattern Slow desiree, Flexed posture (06/06/25840) Weight Bearing Status Weight bearing as tolerated (06/06/25840) Additional Comments needs VC and MC to stay in walker (06/06/25840) Stair Management Technique Stair Management Assistance Not performed (06/05/251024) Number of Stairs Gait Additional Comments Sitting Balance 3/5 sits without UE support up to 30 seconds (06/05/25 102) Standing Balance Other (Comment) (Pt refused to stand for fear of hip pain increasing.) (06/05/25 6516) Other Goal Status: Patient is progressing towards [...] Therapy Min 19 Katya Ott, PT * Leonila Lopez RN - 06/06/2025 3:29 [...] Essential hypertension ?? 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 Adrenal adenoma, [...] Essential hypertension ?? 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 Ortega. Patient has a follow up apt with Dr. Ortega on 06/12. Dr. Wilkerson office staff said that if the patient will not be discharged from [facility] by then, the staff nurse here at [facility] would need to remove the [place] and [...] discharge) Time In / Time Out 59/0 C Actual Physical Therapy Minutes LTC PT Ind [...] at discharge) Time In / Time Out PT Weekly Progress PT Weekly Progress Note Due Date 06/06/25 LTC Actual Physical Therapy Minutes LTC PT Ind Therapy Min (!) 10 Silvia Diaz, PT, DPT * Maylin Loya, RN - 06/05/2025 4:48 AM EDT Pt [...] not working. Pt doesn't want to take [place], per pt [place] makes her confused. 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 * Celso Walker, OT - 06/02/2025 4:55 PM EDT 06/02/25 1643 SNF OT Subjective Note Type Treatment/Progress OT Subjective Comments #1 I am not doing a bath or a shower right now. At end of session when OT provided menu options from beside table, pt stated, Get her out of here. She is trying to get me too much food. Others Present/Assisting Nutrition-DHARA Mares-Vinnie Discharge Information This progress note will serve [...] Pt reported desire to read, read bible, sudoku puzzles and coloring. Activity area accessed and [...] recommended. Time In / Time Out 15:55-16:30 [facility] Actual Occupational Therapy Minutes LT Individual Therapy Minutes 35 * Katya Ott, [...] discharge Time In / Time Out 1520/1533 [facility] Actual Physical Therapy Minutes [facility] PT Ind Therapy Min (!) 13 Katya Ott, PT * Alex Mayberry, PT - 06/02/2025 1:50 PM EDT 06/02/25 1349 [facility] PT Subjective Note Type Follow Up Treatment Attempt Patient Room/Unit 106 Therapy delay reason Patient declined * Katya Ott, PT - 06/02/2025 1:07 PM EDT 06/02/25 1306 PT Subjective Note Type Follow Up Treatment Attempt Patient Room/Unit 106 Others Present/Assisting daughter Therapy delay reason Patient eating Katya Ott, PT * Alex Mayberry, PT - 06/02/2025 11:37 AM EDT 06/02/25 1134 SNF PT Subjective Note Type Treatment/Progress Patient [...] (HCC) Essential hypertension 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 * Celso Walker OT - 06/01/2025 3:47 PM EDT 06/01/25 [...] ADL Interventions UE Dressing Assistance Set up ([facility] gown and donned pullover shirt.) LE Dressing Assistance Contact guard;With verbal cues;Pull up over hips;Thread LLE into underwear;Thread RLE into underwear;Thread LLE into pants;Thread RLE into pants;Don/doff L sock;Don/doff R sock (Pt educated on use of tin stacker/sock aid for LB dressing. Pt doffed/donned socks with CGA and MAX verbal cues for technique. CGA and MOD verbal cues to don pants with tin stacker. MAX cues to hold RW at all [...] Schultz RD,LD - 06/01/2025 2:27 PM EDT [facility] Nutrition Initial Assessment Evidence Supported Malnutrition Diagnosis: No malnutrition identified Nutrition Problem/Diagnosis: Nutrition Diagnosis Problem 1: Increased nutrient needs (specify) (energy and amino acids) Calories (amino acids) related to increased demand for energy/nutrients, anticipated change in physical demands as evidenced by wounds, increased estimated needs. Status: New nutrition diagnosis Nutrition Prescription: Kcals: [id number] K Jacinto Needs Based On: Kcal/kg - [...] [T14.8XXA] Fractured hip, left, closed, initial encounter ([facility]) [V87.002C] Reason For Assessment: Skin integrity protocol, SNF [...] supplement 1 'box' Oral TID with Meals PRBAHAKAR powder oral supplement 1 Packet Oral BID [...] Occurrence: 1 Stool Appearance: (!) Type 6 [place] Stool Chart Stool Color: Brown, Yellow Stool [...] kidney mass on the left.Patient sent to [facility] for skilled rehab. * Silvia [...] it does no t hurt while seated. 03/09 when walking Cognition Orientation Intact Arousal Normal [...] - 06/01/2025 9:55 AM EDT 06/01/25 0929 [facility] PT Subjective Note Type Treatment/Progress Patient Room/Unit [...] got something in my mouth. Others Present/Assisting Karen-RN, Mirian Iqbal-RN, Odilon-nutrition Discharge Information This progress note will [...] status;Chair/personal alarm activated Additional Comments RN and EVENT SPECIALIST present at end of session assess glucose [...] recommended. Time In / Time Out 15:55-16:41 LTC Actual Occupational Therapy Minutes LTC Individual Therapy Minutes 46 * Amie Weller, PT - 05/31/2025 12:07 PM EDT 05/31/25 1200 [facility] PT Subjective Note Type Treatment/Progress Patient Room/Unit 106 Discharge Information This progress note will serve as the discharge summary if no further therapy is provided prior to the patient being discharged from the hospital. Pain Screening PT/OT Patient Currently in Pain Yes Pain Rating (310 left hip) Cognition Orientation Intact Precautions Therapy [...] - 05/31/2025 11:33 AM EDT 05/31/25 1104 [facility] PT Subjective Note Type Treatment/Progress Patient Room/Unit [...] HHPT Time In / Time Out 1044/1059 [facility] Actual Physical Therapy Minutes [facility] PT Ind Therapy Min 15 * Stephany Lopez LPN - 05/31/2025 5:00 AM EDT Attempted to start MRI check list with patient last night while family was here and refused, so I tried this morning and she said she wasn't having it, how ever she is confused at this time. Maybe DrQuatkemeyer can talk with her this morning when rounding. Will continue to observe. * Stephany Lopez LPN - 05/31/2025 3:51 AM EDT Patient awake, confused, to place and time,with gown off and she thinks she is staying in a latter day somewhere, reoriented to both time and place, also pulled stat lock for starr off, encouraged patient keep hands away from cath as it could cause infection or trama, encouraged to use call light for needs and assistance. Will continue to monitor. * Stephany Lopez LPN - 05/30/2025 11:14 PM EDT Up to [facility] with walker, gait belt and assist of [...] at discharge Time In / Time Out [phone] LTC Actual Physical Therapy Minutes LTC PT Ind Therapy Min (!) 13 Katya Ott, PT * Joanna Galloway RN - 05/30/2025 2:41 PM EDT Patient up to bedside commode and recliner with assist of two staff. All needs within reach and family at bedside. * Celso Walker OT - 05/30/2025 1:54 PM EDT 05/30/25 1320 SNF OT Subjective Note Type Evaluation In Patient Room Patient Room/Unit 106 OT Subjective Comments #1 I just got in my chair and I don't feel like standing up right now. Others Present/Assisting Mary-pharmacy intern Information Evaluation to serve as discharge summary if no further treatment provided before the facility discharge Admitting Diagnosis Fracture, Fractured hip, left, closed, initial encounter ([facility]) Therapy Related Diagnosis M62.81 Muscle weakness Past [...] left. Clinical Course Patient was admitted to [facility] and had LLE hemiarthroplasty 05/26/25. Trasnferred to [...] living in basement of her home at [facility]. Pt has decreased BUE strength, decreased [...] training in prep to return home to [facility]. Goals Patient and/or Family Goal to [...] OT Weekly Progress Note Due Date 06/07/25 LTC Actual Occupational Therapy Minutes LTC OT Evaluation Minutes 15 LTC Individual Therapy Minutes 29 * Hugh Zamarripa [...] completed via telemedicine capabilities. Spoke with primary RNJoanna via secure chat. Upon assessment, noted the [...] left. Clinical Course Patient was admitted to [facility] and had LLE hemiarthroplasty 05/26/25. Trasnferred to [...] shower. Nephew reports several falls since Jul. Andrade has back problems and sciatic problems. Activity Tolerance Endurance Limits participation and activity Vitals VSS Observation Presentation Patient resting in bed Observation Bed alarm;Oxygen - nasal cannula;External urinary catheter (purewick removed prior to patient mobility to encourage movement/ambulation to<>from restroom by EVENT SPECIALIST.) UE Assessment LUE Assessment WFL RUE Assessment [...] of bed 2-Substantial Sit to stand 2-Substantial Chair/Uve-hm-pslxd transfer 2-Substantial Toilet transfer 2-Substantial (BSC) Walk 10 Feet 88-Not attempted Walk 50 feet with two turns 88-Not attempted Walk 150 feet 88-Not attempted Walking 10 Feet On Uneven Surfaces 88-Not attempted 1 Step (Curb) 88-Not attempted 4 Steps 88-Not attempted 12 Steps 88-Not attempted Picking Up Object 88-Not attempted Does the resident use a wheelchair/scooter? N1-o Patient Insurance Does Patient Have [employer] Insurance? no Bed Mobility Supine to Sit [...] After several attempts demonstrated improvement. Sat at [facility]. Then Katya, PT assisted with EVENT SPECIALIST for transfer to chair from [facility]. Gait Gait Not performed Stair Management Assistance [...] bed Patient Safety Patient Safety (Patient left Katya, PT and with Samara JULES) Assessment Assessment [...] Recert PT 30 Day Recert Due 06/29/25 [facility] Actual Physical Therapy Minutes LTC PT Evaluation Minutes 23 Silvia Emily, PT, DPT * Paradise Lu RN - [...] due to soiling of previous dressing. * Pardaise Lu RN - 05/29/2025 11:58 PM EDT [...] based upon hospital discharge instructions received from [facility]. Per Dr. Zamarripa, hold tonight's dose [...] mass on the left. Patient sent to [facility] for skilled rehab. 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 Type 2 xydldbti-Vhdi-Rtcm twice daily and continue metformin, glyburide was stopped Hypertension-blood pressure 129/44 currently on metoprolol and losartan Coronary artery disease with stents-on aspirin and Plavix, continue and continue cholesterol and blood pressure medicine VTE-Lovenox ordered Adrenal and kidney mass-Will get outside CAT scan report and review Addendum-in review of CAT scan of abdomen on 05/24/2025 at [facility] showed a 2 cm left adrenal [...] Diagnosis Fractured hip, left, closed, initial encounter ([facility]) Type 2 diabetes mellitus without complication, without long-term current use of insulin ([facility]) Essential hypertension 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 Patient sent to [facility] for skilled rehab. ASSOCIATE VICE PRESIDENT consulted for swallow evaluation as pt reported [...] thin is recommended and no further acute ASSOCIATE VICE PRESIDENT dysphagia intervention is warranted at this time. [...] liquids Assistance/Supervision: Independent Pt/caregiver education No further ASSOCIATE VICE PRESIDENT needs at this time 06/06/25 1239 Clinical [...] Goal none voiced Patient/Family Education Completed Yes ASSOCIATE VICE PRESIDENT Recommendation Home with prior support This note [...] reported she previously had home O2 with [facility] [place], and when no longer needed, was returned to [facility]. She lives with daughter and plans to return at discharge. There are 7 steps into the home with handrails. She was independent in ADL's prior to fall and has a 2WW. Pharmacy is [facility]. They are agreeable to [facility] at discharge as they had them in the past. Care Conference scheduled on 06/06 at 1:00 pm. SW following. documented in this encounter Plan of Treatment Pending Results Name Type Priority Associated Diagnoses Date /Time BLOOD CULTURE (NO STAIN) Microbiology Routine 06/10/2025 5:21 PM EDT BLOOD CULTURE (NO STAIN) Microbiology Routine 06/10/2025 5:21 PM EDT Scheduled Orders Name Type Priority Associated Diagnoses Orde r Schedule IP CONSULT TO SOCIAL WORK Consult Routine One Time for 1 Occurrences starting 05/29/2025 until 05/29/2025 FULL CODE Code Status Routine Continuous fo r 1 Occurrences starting 05/30/2025 until 05/30/2025 HOME HEALTH ORDERS (FACE TO FACE ENCOUNTER) Consult Routine One Time for 1 Occurrences starting 06/07/2025 until 06/07/2025 documented as of this encounter Procedures Procedure [...] GLUCOSE METER POC (06/12/2025 8:13 AM EDT) [facility] Glucose Meter POC 125(H) 70 - 100 mg/dL 06/12/2025 8:14 AM EDT [facility] Sample Type Capillary 06/12/2025 8:14 AM EDT [facility] Patient Status Non-Critical Patient 06/12/2025 8:14 AM EDT [facility] Blood BLOOD SPECIMEN / Unknown 06/12/2025 8:13 AM EDT 06/12/2025 8:14 AM EDT Hugh Zamarripa MD POINT OF CARE TEST ORDER PEDRO LUIS Final Result Performing Organization Address [facility] Co de Phone Number [facility] [address] [place] [address] * MAGNESIUM LEVEL (06/12/2025 5:33 AM EDT) Pathologist [facility] Magnesium 1.7 1.6 - 2.4 mg/dL 06/12/2025 5:55 AM EDT [facility] Blood VENOUS BLOOD / Unknown Venipuncture / Unknown 06/12/2025 5:33 AM EDT 06/12/2025 5:33 AM EDT Jennifer Fontana APRN CHEMISTRY ORDERABLES Fin al Result Performing Organization Address [facility] de Phone Number [facility] [address] [place] [address] * (ABNORMAL) CBC (06/12/2025 5:33 AM EDT) Pathologist [facility] WBC 7.9 3.7 - 10.3 x10(3)/mcL 06/12/2025 5:36 AM EDT [facility] RBC 3.76(L) 3.90 - 5.20 x10(6)/mcL 06/12/2025 5:36 AM EDT [facility] Hgb 11.3 11.2 - 15.7 g/dL 06/12/2025 5:36 AM EDT [facility] Hct 35.6 34.0 - 45.0 % 06/12/2025 5:36 AM EDT [facility] MCV 94.7 80.0 - 100.0 fL 06/12/2025 5:36 AM EDT [facility] MCH 30.1 26.0 - 34.0 pg 06/12/2025 5:36 AM EDT [facility] MCHC 31.7 30.7 - 35.5 g/dL 06/12/2025 5:36 AM EDT [facility] RDW 13.0 <=14.9 % 06/12/2025 5:36 AM EDT [facility] Platelet 366 155 - 369 x10(3)/mcL 06/12/2025 5:36 AM EDT [facility] MPV 8.8 8.8 - 12.5 fL 06/12/2025 5:36 AM EDT [facility] Blood VENOUS BLOOD / Unknown Venipuncture / Unknown 06/12/2025 5:33 AM EDT 06/12/2025 5:33 AM EDT us Jennifer Fontana MECHANICAL PLANNER HEMATOLOGY ORDERABLES Fi nal Result [facility] [address] [place] [address] * (ABNORMAL) BASIC METABOLIC PANEL (06/12/2025 5:33 AM EDT) Sodium 144 136 - 145 mmol/L 06/12/2025 5:55 AM EDT [facility] Potassium 4.0 3.5 - 5.0 mmol/L 06/12/2025 5:55 AM EDT [facility] Chloride 108(H) 98 - 107 mmol/L 06/12/2025 5:55 AM EDT [facility] Total CO2 27 22 - 29 mmol/L 06/12/2025 5:55 AM EDT [facility] Anion Gap 9 7 - 16 mmol/L 06/12/2025 5:55 AM EDT [facility] Calcium 8.5(L) 8.8 - 10.4 mg/dL 06/12/2025 5:55 AM EDT [facility] Glucose Lvl 137(H) 70 - 99 mg/dL 06/12/2025 5:55 AM EDT [facility] BUN 14 8 - 23 mg/dL 06/12/2025 5:55 AM EDT [facility] Creatinine 0.64 0.51 - 1.30 mg/dL 06/12/2025 5:55 AM EDT [facility] eGFR (CKD-EPIcr 2020) 86 >=60 mL/min/1.7 3 m2 06/12/2025 5:55 AM EDT [facility] Comment:Estimated GFR was ca lculated using the CKD-EPIcr (2020) equation refit without race. The equation is recommended by the National Kidney Foundation - [place] [employer] of Nephrology Task Force. Blood VENOUS BLOOD / Unknown Venipuncture / Unknown 06/12/2025 5:33 AM EDT 06/12/2025 5:33 AM EDT Jennifer Fontana APRN CHEMISTRY ORDERABLES Fin al Result Performing Organization Address [facility] Co de Phone Number [facility] [address] [place] [address] * (ABNORMAL) GLUCOSE METER POC (06/11/2025 8:58 PM EDT) Glucose Meter POC 111(H) 70 - 100 mg/dL 06/11/2025 9:00 PM EDT [facility] Sample Type Capillary 06/11/2025 9:00 PM EDT [facility] Patient Status Non-Critical Patient 06/11/2025 9:00 PM EDT [facility] Blood BLOOD SPECIMEN / Unknown 06/11/2025 8:58 PM EDT 06/11/2025 9:00 PM EDT Hugh Zamarripa MD POINT OF CARE TEST ORDER PEDRO LUIS Final Result Performing Organization Address [facility]/ZIP Co de Phone Number [facility] [address] [place] [address] * (ABNORMAL) GLUCOSE METER POC (06/11/2025 4:59 PM EDT) Glucose Meter POC 128(H) 70 - 100 mg/dL 06/11/2025 5:00 PM EDT [facility] Sample Type Capillary 06/11/2025 5:00 PM EDT [facility] Patient Status Non-Critical Patient 06/11/2025 5:00 PM EDT [facility] Blood BLOOD SPECIMEN / Unknown 06/11/2025 4:59 PM EDT 06/11/2025 5:00 PM EDT Hugh Zamarripa MD POINT OF CARE TEST ORDER PEDRO LUIS Final Result Performing Organization Address [facility] de Phone Number [facility] [address] [place] [address] * (ABNORMAL) GLUCOSE METER POC (06/11/2025 12:16 PM EDT) Glucose Meter POC 107(H) 70 - 100 mg/dL 06/11/2025 12:18 PM EDT [facility] Sample Type Capillary 06/11/2025 12:18 PM EDT [facility] Patient Status Non-Critical Patient 06/11/2025 12:18 PM EDT [facility] Blood BLOOD SPECIMEN / Unknown 06/11/2025 12:16 PM EDT 06/11/2025 12:18 PM EDT Hugh Zamarripa MD POINT OF CARE TEST ORDER PEDRO LUIS Final Result Performing Organization Address [facility] de Phone Number [facility] [address] [place] [address] * (ABNORMAL) GLUCOSE METER POC (06/11/2025 7:59 AM EDT) Glucose Meter POC 127(H) 70 - 100 mg/dL 06/11/2025 8:01 AM EDT [facility] Sample Type Capillary 06/11/2025 8:01 AM EDT [facility] Patient Status Non-Critical Patient 06/11/2025 8:01 AM EDT [facility] Blood BLOOD SPECIMEN / Unknown 06/11/2025 7:59 AM EDT 06/11/2025 8:01 AM EDT Hugh Zamarripa MD POINT OF CARE TEST ORDER PEDRO LUIS Final Result Performing Organization Address [facility]/ZIP Co de Phone Number [facility] [address] [place] [address] * EXTRA LAVENDER (06/11/2025 6:17 AM EDT) Blood VENOUS BLOOD / Unknown Venipuncture / Unknown 06/11/2025 6:17 AM EDT 06/11/2025 9:04 AM EDT Hugh Zamarripa MD HEMATOLOGY ORDERABLES Fi nal Result Performing Organization Address [facility] de Phone Number [facility] [address] [place] [address] * REPEAT LACTIC ACID (06/11/2025 6:17 AM EDT) Lactic Acid 1.9 0.5 - 1.9 mmol/L 06/11/2025 6:31 AM EDT [facility] Blood VENOUS BLOOD / Unknown Venipuncture / Unknown 06/11/2025 6:17 AM EDT 06/11/2025 6:17 AM EDT Hugh Zamarripa MD CHEMISTRY ORDERABLES Fin al Result Performing Organization Address [facility] de Phone Number [facility] [address] [place] [address] * MAGNESIUM LEVEL (06/11/2025 6:17 AM EDT) Magnesium 1.6 1.6 - 2.4 mg/dL 06/11/2025 6:56 AM EDT [facility] Blood VENOUS BLOOD / Unknown Venipuncture / Unknown 06/11/2025 6:17 AM EDT 06/11/2025 6:43 AM EDT Jennifer Fontana APRN CHEMISTRY ORDERABLES Fin al Result Performing Organization Address [facility] de Phone Number [facility] [address] [place] [address] * (ABNORMAL) BASIC METABOLIC PANEL (06/11/2025 6:17 AM EDT) Sodium 145 136 - 145 mmol/L 06/11/2025 6:56 AM EDT [facility] Potassium 3.8 3.5 - 5.0 mmol/L 06/11/2025 6:56 AM EDT [facility] Chloride 110(H) 98 - 107 mmol/L 06/11/2025 6:56 AM EDT [facility] Total CO2 24 22 - 29 mmol/L 06/11/2025 6:56 AM EDT [facility] Anion Gap 11 7 - 16 mmol/L 06/11/2025 6:56 AM T [facility] Calcium 8.2(L) 8.8 - 10.4 mg/dL 06/11/2025 6:56 AM T [facility] Glucose Lvl 128(H) 70 - 99 mg/dL 06/11/2025 6:56 AM T [facility] BUN 14 8 - 23 mg/dL 06/11/2025 6:56 AM T [facility] Creatinine 0.61 0.51 - 1.30 mg/dL 06/11/2025 6:56 AM [facility] eGFR (CKD-EPIcr 2020) 87 >=60 mL/min/1.7 3 m2 06/11/2025 6:56 AM T [facility] Comment:Estimated GFR was ca lculated using the CKD-EPIcr (2020) equation refit without race. The equation is recommended by the National Kidney Foundation - [place] [employer] of Nephrology Task Force. Blood VENOUS BLOOD / Unknown Venipuncture / Unknown 06/11/2025 6:17 AM EDT 06/11/2025 6:43 AM EDT us Jennifer Fontana APRN CHEMISTRY ORDERABLES Fin al Result [facility] [address] [place] [address] * (ABNORMAL) REPEAT LACTIC ACID (06/10/2025 11:20 PM EDT) Lactic Acid 2.3(H) 0.5 - 1.9 mmol/L 06/10/2025 11:36 PM EDT [facility] Blood VENOUS BLOOD / Unknown Venipuncture / Unknown 06/10/2025 11:20 PM EDT 06/10/2025 11:20 PM EDT Hugh Zamarripa MD CHEMISTRY ORDERABLES Fin al Result Performing Organization Address [facility] de Phone Number [facility] [address] [place] [address] * (ABNORMAL) REPEAT LACTIC ACID (06/10/2025 8:14 PM EDT) Lactic Acid 3.3(H) 0.5 - 1.9 mmol/L 06/10/2025 8:29 PM EDT [facility] Blood VENOUS BLOOD / Unknown Venipuncture / Unknown 06/10/2025 8:14 PM EDT 06/10/2025 8:14 PM EDT Jennifer Fontana APRN CHEMISTRY ORDERABLES Fin al Result Performing Organization Address [facility] de Phone Number [facility] [address] [place] [address] * (ABNORMAL) GLUCOSE METER POC (06/10/2025 4:58 PM EDT) Glucose Meter POC 139(H) 70 - 100 mg/dL 06/10/2025 5:00 PM EDT [facility] Sample Type Capillary 06/10/2025 5:00 PM EDT [facility] Patient Status Non-Critical Patient 06/10/2025 5:00 PM EDT [facility] Blood BLOOD SPECIMEN / Unknown 06/10/2025 4:58 PM EDT 06/10/2025 5:00 PM EDT Hugh Zamarripa MD POINT OF CARE TEST ORDER PEDRO LUIS Final Result Performing Organization Address [facility] de Phone Number [facility] [address] [facility] [place] [address] * (ABNORMAL) REPEAT LACTIC ACID (06/10/2025 2:18 PM EDT) Lactic Acid 3.2(H) 0.5 - 1.9 mmol/L 06/10/2025 2:34 PM EDT [facility] Blood VENOUS BLOOD / Unknown Venipuncture / Unknown 06/10/2025 2:18 PM EDT 06/10/2025 2:23 PM EDT Jennifer Fontana APRN CHEMISTRY ORDERABLES Fin al Result Performing Organization Address [facility]/ZIP Co de Phone Number [facility] [address] [place] [address] * (ABNORMAL) GLUCOSE METER POC (06/10/2025 11:59 AM EDT) [facility] Glucose Meter POC 105(H) 70 - 100 mg/dL 06/10/2025 12:00 PM EDT [facility] Sample Type Capillary 06/10/2025 12:00 PM EDT [facility] Patient Status Non-Critical Patient 06/10/2025 12:00 PM EDT [facility] Blood BLOOD SPECIMEN / Unknown 06/10/2025 11:59 AM EDT 06/10/2025 12:00 PM EDT Hugh Zamarripa MD POINT OF CARE TEST ORDER PEDRO LUIS Final Result [facility] [address] [place] [address] * (ABNORMAL) MAGNESIUM LEVEL (06/10/2025 11:52 AM EDT) Magnesium 1.3(L) 1.6 - 2.4 mg/dL 06/10/2025 1:12 PM EDT [facility] Blood VENOUS BLOOD / Unknown Venipuncture / Unknown 06/10/2025 11:52 AM EDT 06/10/2025 12:00 PM EDT us Jennifer Fontana APRN CHEMISTRY ORDERABLES Fin al Result [facility] [address] [place] [address] * PROCALCITONIN (06/10/2025 11:52 AM EDT) Procalcitonin 0.08 <=0.49 ng/mL 06/10/2025 7:35 PM EDT [facility] Blood VENOUS BLOOD / Unknown Venipuncture / Unknown 06/10/2025 11:52 AM EDT 06/10/2025 12:00 PM EDT Narrative [facility] - 06/10/2025 7:35 PM EDT Procalcitonin <0.50 [...] ORDERABLES Fin al Result Performing Organization Address [facility]/ZIP Co de Phone Number [facility] [address] [place] [address] [address], [place] [address] * (ABNORMAL) LACTIC ACID (06/10/2025 11:52 AM EDT) Lactic Acid 2.1(H) 0.5 - 1.9 mmol/L 06/10/2025 12:13 PM EDT [facility] Blood VENOUS BLOOD / Unknown Venipuncture / Unknown 06/10/2025 11:52 AM EDT 06/10/2025 12:00 PM EDT us Jennifer Fontana APRN CHEMISTRY ORDERABLES Fin al Result [facility] [address] [place] [address] * (ABNORMAL) CBC (06/10/2025 11:52 AM EDT) Pathologist [facility] WBC 10.5(H) 3.7 - 10.3 x10(3)/mcL 06/10/2025 12:03 PM EDT [facility] RBC 3.93 3.90 - 5.20 x10(6)/mcL 06/10/2025 12:03 PM EDT [facility] Hgb 11.9 11.2 - 15.7 g/dL 06/10/2025 12:03 PM EDT [facility] Hct 36.2 34.0 - 45.0 % 06/10/2025 12:03 PM EDT [facility] MCV 92.1 80.0 - 100.0 fL 06/10/2025 12:03 PM EDT [facility] MCH 30.3 26.0 - 34.0 pg 06/10/2025 12:03 PM EDT [facility] MCHC 32.9 30.7 - 35.5 g/dL 06/10/2025 12:03 PM EDT [facility] RDW 12.7 <=14.9 % 06/10/2025 12:03 PM EDT [facility] Platelet 400(H) 155 - 369 x10(3)/mcL 06/10/2025 12:03 PM EDT [facility] MPV 8.9 8.8 - 12.5 fL 06/10/2025 12:03 PM EDT [facility] Blood VENOUS BLOOD / Unknown Venipuncture / Unknown 06/10/2025 11:52 AM EDT 06/10/2025 12:00 PM EDT Jennifer Fontana APRN HEMATOLOGY ORDERABLES Fi nal Result [facility] [address] [place] [address] * (ABNORMAL) BASIC METABOLIC PANEL (06/10/2025 11:52 AM EDT) Sodium 143 136 - 145 mmol/L 06/10/2025 12:16 PM EDT [facility] Potassium 3.2(L) 3.5 - 5.0 mmol/L 06/10/2025 12:16 PM EDT [facility] Chloride 105 98 - 107 mmol/L 06/10/2025 12:16 PM EDT [facility] Total CO2 25 22 - 29 mmol/L 06/10/2025 12:16 PM EDT [facility] Anion Gap 13 7 - 16 mmol/L 06/10/2025 12:16 PM EDT [facility] Calcium 8.5(L) 8.8 - 10.4 mg/dL 06/10/2025 12:16 PM EDT [facility] Glucose Lvl 106(H) 70 - 99 mg/dL 06/10/2025 12:16 PM EDT [facility] BUN 16 8 - 23 mg/dL 06/10/2025 12:16 PM EDT [facility] Creatinine 0.67 0.51 - 1.30 mg/dL 06/10/2025 12:16 PM T [facility] eGFR (CKD-EPIcr 2020) 85 >=60 mL/min/1.7 3 m2 06/10/2025 12:16 PM EDT [facility] Comment:Estimated GFR was ca lculated using the CKD-EPIcr (2020) equation refit without race. The equation is recommended by the National Kidney [employer] - [place] [employer] of Nephrology Task Force. Blood VENOUS BLOOD / Unknown Venipuncture / Unknown 06/10/2025 11:52 AM EDT 06/10/2025 12:00 PM EDT us Jennifer A Addi MECHANICAL PLANNER CHEMISTRY ORDERABLES Fin al Result [facility] [address] [place] [address] * XR CHEST AP PORTABLE (06/10/2025 11:38 [...] GLUCOSE METER POC (06/10/2025 8:36 AM EDT) [facility] Glucose Meter POC 126(H) 70 - 100 mg/dL 06/10/2025 8:38 AM EDT [facility] Sample Type Capillary 06/10/2025 8:38 AM EDT [facility] Patient Status Non-Critical Patient 06/10/2025 8:38 AM EDT [facility] Blood BLOOD SPECIMEN / Unknown 06/10/2025 8:36 AM EDT 06/10/2025 8:38 AM EDT Hugh Zamarripa MD POINT OF CARE TEST ORDER PEDRO LUIS Final Result Performing Organization Address [facility] de Phone Number [facility] [address] [place] [address] * (ABNORMAL) GLUCOSE METER POC (06/09/2025 8:23 PM EDT) Glucose Meter POC 155(H) 70 - 100 mg/dL 06/09/2025 8:24 PM EDT [facility] Sample Type Capillary 06/09/2025 8:24 PM EDT [facility] Patient Status Non-Critical Patient 06/09/2025 8:24 PM EDT [facility] Blood BLOOD SPECIMEN / Unknown 06/09/2025 8:23 PM EDT 06/09/2025 8:24 PM EDT Hugh Zamarripa MD POINT OF CARE TEST ORDER PEDRO LUIS Final Result Performing Organization Address [facility] de Phone Number [facility] [address] [place] [address] * (ABNORMAL) GLUCOSE METER POC (06/09/2025 4:53 PM EDT) Glucose Meter POC 117(H) 70 - 100 mg/dL 06/09/2025 4:54 PM EDT [facility] Sample Type Capillary 06/09/2025 4:54 PM EDT [facility] Patient Status Non-Critical Patient 06/09/2025 4:54 PM EDT [facility] Blood BLOOD SPECIMEN / Unknown 06/09/2025 4:53 PM EDT 06/09/2025 4:54 PM EDT Hugh Zamarripa MD POINT OF CARE TEST ORDER PEDRO LUIS Final Result Performing Organization Address [facility] Co de Phone Number [facility] [address] [place] [address] * (ABNORMAL) GLUCOSE METER POC (06/09/2025 11:44 AM EDT) Glucose Meter POC 149(H) 70 - 100 mg/dL 06/09/2025 11:45 AM EDT [facility] Sample Type Capillary 06/09/2025 11:45 AM EDT [facility] Patient Status Non-Critical Patient 06/09/2025 11:45 AM EDT [facility] [facility] Blood BLOOD SPECIMEN / Unknown 06/09/2025 11:44 AM EDT 06/09/2025 11:45 AM EDT Hugh Zamarripa MD POINT OF CARE TEST ORDER PEDRO LUIS Final Result Performing Organization Address [facility] [place] de Phone Number [facility] [address] [place] [address] * (ABNORMAL) GLUCOSE METER POC (06/09/2025 7:43 AM EDT) Glucose Meter POC 113(H) 70 - 100 mg/dL 06/09/2025 7:44 AM EDT [facility] Sample Type Capillary 06/09/2025 7:44 AM EDT [facility] Patient Status Non-Critical Patient 06/09/2025 7:44 AM EDT [facility] Blood BLOOD SPECIMEN / Unknown 06/09/2025 7:43 AM EDT 06/09/2025 7:44 AM EDT Hugh Zamarripa MD POINT OF CARE TEST ORDER PEDRO LUIS Final Result Performing Organization Address City/[facility] Co de Phone Number [facility] [address] [place] [address] * (ABNORMAL) GLUCOSE METER POC (06/08/2025 8:01 PM EDT) Glucose Meter POC 151(H) 70 - 100 mg/dL 06/08/2025 8:03 PM EDT [facility] Sample Type Capillary 06/08/2025 8:03 PM EDT [facility] Patient Status Non-Critical Patient 06/08/2025 8:03 PM EDT [facility] Blood BLOOD SPECIMEN / Unknown 06/08/2025 8:01 PM EDT 06/08/2025 8:03 PM EDT Hugh Zamarripa MD POINT OF CARE TEST ORDER PEDRO LUIS Final Result Performing Organization Address City/[facility] Co de Phone Number [facility] [address] [place] [address] * (ABNORMAL) GLUCOSE METER POC (06/08/2025 4:33 PM EDT) Glucose Meter POC 145(H) 70 - 100 mg/dL 06/08/2025 4:35 PM EDT [facility] Sample Type Capillary 06/08/2025 4:35 PM EDT [facility] Patient Status Non-Critical Patient 06/08/2025 4:35 PM EDT [facility] Blood BLOOD SPECIMEN / Unknown 06/08/2025 4:33 PM EDT 06/08/2025 4:35 PM EDT Hugh Zamarripa MD POINT OF CARE TEST ORDER PEDRO LUIS Final Result Performing Organization Address [facility] Co de Phone Number [facility] [address] [place] [address] * (ABNORMAL) BASIC METABOLIC PANEL (06/08/2025 4:27 PM EDT) Sodium 143 136 - 145 mmol/L 06/08/2025 4:45 PM EDT [facility] Potassium 4.0 3.5 - 5.0 mmol/L 06/08/2025 4:45 PM EDT [facility] Chloride 103 98 - 107 mmol/L 06/08/2025 4:45 PM EDT [facility] Total CO2 28 22 - 29 mmol/L 06/08/2025 4:45 PM EDT [facility] Anion Gap 12 7 - 16 mmol/L 06/08/2025 4:45 PM EDT [facility] Calcium 8.9 8.8 - 10.4 mg/dL 06/08/2025 4:45 PM EDT [facility] Glucose Lvl 143(H) 70 - 99 mg/dL 06/08/2025 4:45 PM EDT [facility] BUN 14 8 - 23 mg/dL 06/08/2025 4:45 PM EDT [facility] Creatinine 0.75 0.51 - 1.30 mg/dL 06/08/2025 4:45 PM EDT [facility] eGFR (CKD-EPIcr 2020) 78 >=60 mL/min/1.7 3 m2 06/08/2025 4:45 PM EDT [facility] Comment:Estimated GFR was ca lculated using the CKD-EPIcr (2020) equation refit without race. The equation is recommended by the [employer] - [place] [employer] Neph[employer] Task Force. Blood VENOUS BLOOD / Unknown Venipuncture / Unknown 06/08/2025 4:27 PM EDT 06/08/2025 4:30 PM EDT us Viral Sargent V, DO CHEMISTRY ORDERABLES Final Res ult Performing Organization Address City/State/[facility] Co de Phone Number [facility] [address] [place] [address] * (ABNORMAL) GLUCOSE METER POC (06/08/2025 11:48 AM EDT) [facility] Signature Glucose Meter POC 140(H) 70 - 100 mg/dL 06/08/2025 11:50 AM EDT [facility] Sample Type Capillary 06/08/2025 11:50 AM EDT [facility] Patient Status Non-Critical Patient 06/08/2025 11:50 AM EDT [facility] Blood BLOOD SPECIMEN / Unknown 06/08/2025 11:48 AM EDT 06/08/2025 11:50 AM EDT us Hugh Zamarripa MD POINT OF CARE TEST ORDER PEDRO LUIS Final Result Performing Organization Address City/[facility] Co de Phone Number [facility] [address] [place] [address] * (ABNORMAL) GLUCOSE METER POC (06/08/2025 8:30 AM EDT) Glucose Meter POC 126(H) 70 - 100 mg/dL 06/08/2025 8:31 AM EDT [facility] Sample Type Capillary 06/08/2025 8:31 AM EDT [facility] Patient Status Non-Critical Patient 06/08/2025 8:31 AM EDT [facility] Blood BLOOD SPECIMEN / Unknown 06/08/2025 8:30 AM EDT 06/08/2025 8:31 AM EDT Hugh Zamarripa MD POINT OF CARE TEST ORDER PEDRO LUIS Final Result Performing Organization Address [facility] de Phone Number [facility] [address] [place] [address] * (ABNORMAL) GLUCOSE METER POC (06/07/2025 8:56 PM EDT) Glucose Meter POC 135(H) 70 - 100 mg/dL 06/07/2025 8:57 PM EDT [facility] Sample Type Capillary 06/07/2025 8:57 PM EDT [facility] Patient Status Non-Critical Patient 06/07/2025 8:57 PM EDT [facility] Blood BLOOD SPECIMEN / Unknown 06/07/2025 8:56 PM EDT 06/07/2025 8:57 PM EDT Hugh Zamarripa MD POINT OF CARE TEST ORDER PEDRO LUIS Final Result Performing Organization Address [facility] Co de Phone Number [facility] [address] [place] [address] * (ABNORMAL) URINE CULTURE (NO STAIN) (06/07/2025 8:48 PM EDT) Culture Positive Growth(A) 06/10/2025 1:16 PM EDT [email or web address] Culture >100,000 CFU/mL Lactobacillus species SUSCEPTIB ILITY RESULT 06/10/2025 1:16 PM EDT [email or web address] Comment:No further workup. Culture 4,000 CFU/mL Ashley albicans SUSCEPTIB ILITY RESULT 06/10/2025 1:16 PM EDT [email or web address] Comment:No further workup. Urine STRUCTURE OF URINARY TRACT PROPER / Unknown 06/07/2025 8:48 PM EDT 06/07/2025 9:08 PM EDT us Viral Sargent V, DO MICROBIOLOGY - GENERAL ORDERAB LES Final Result [email or web address], [facility] [address] [facility] [address] , [place] [id number] * EXTRA LAUGHLIN URINE CX (06/07/2025 8:48 PM EDT) Urine STRUCTURE OF URINARY TRACT PROPER / Unknown 06/07/2025 8:48 PM EDT 06/07/2025 8:59 PM EDT us Viral Sargent V, DO MICROBIOLOGY - GENERAL ORDERAB LES Final Result Performing Organization Address City/[facility]/ZIP Co de Phone Number [facility] [address] [place] [address] * (ABNORMAL) URINALYSIS REFLEX (06/07/2025 8:48 PM EDT) UA Color Yellow 06/07/2025 9:08 PM EDT [facility] UA Appear Clear Clear 06/07/2025 9:08 PM EDT [facility] UA Glucose Negative Negative mg/dL 06/07/2025 9:08 PM EDT [facility] UA Ketones Negative Negative mg/dL 06/07/2025 9:08 PM EDT [facility] UA Blood Negative Negative 06/07/2025 9:08 PM EDT [facility] UA pH 6.0 5.0 - 8.0 pH 06/07/2025 9:08 PM EDT [facility] UA Protein Trace(A) Negative mg/dL 06/07/2025 9:08 PM EDT [facility] UA Urobilinogen 0.2 <=1 mg/dL 9:08 PM EDT [facility] UA Bili Negative Negative 06/07/2025 9:08 PM EDT [facility] UA Nitrite Negative Negative 06/07/2025 9:08 PM EDT [facility] UA Leuk Est Small(A) Negative 06/07/2025 9:08 PM EDT [facility] UA Spec Grav 1.025 1.001 - 1.035 no units 06/07/2025 9:08 PM EDT [facility] Comment:Reference range tessie d for random specimens only. UA WBC 10(H) 0 - 4 /HPF 06/07/2025 9:08 PM EDT [facility] UA RBC 0 0 - 3 /HPF 06/07/2025 9:08 PM EDT [facility] UA Squam Epi 2+ /LPF 06/07/2025 9:08 PM EDT [facility] UA Mucus 2+ /LPF 06/07/2025 9:08 PM EDT [facility] UA Amorph 1+ /HPF 06/07/2025 9:08 PM EDT [facility] UA Bacteria Trace(A) Negative /HPF 06/07/2025 9:08 PM EDT [facility] Urine STRUCTURE OF URINARY TRACT PROPER / Unknown 06/07/2025 8:48 PM EDT 06/07/2025 8:59 PM EDT us Viral Sargent V, DO URINE ORDERABLES Final Result [facility] [address] [place] [address] * (ABNORMAL) GLUCOSE METER POC (06/07/2025 4:47 PM EDT) Glucose Meter POC 114(H) 70 - 100 mg/dL 06/07/2025 4:48 PM EDT [facility] Sample Type Capillary 06/07/2025 4:48 PM EDT [facility] Patient Status Non-Critical Patient 06/07/2025 4:48 PM EDT [facility] Blood BLOOD SPECIMEN / Unknown 06/07/2025 4:47 PM EDT 06/07/2025 4:48 PM EDT Hugh Zamarripa MD POINT OF CARE TEST ORDER PEDRO LUIS Final Result Performing Organization Address [facility] [place] de Phone Number [facility] [address] [place] [address] * (ABNORMAL) GLUCOSE METER POC (06/07/2025 11:49 AM EDT) Glucose Meter POC 207(H) 70 - 100 mg/dL 06/07/2025 11:51 AM EDT [facility] Sample Type Capillary 06/07/2025 11:51 AM EDT [facility] Patient Status Non-Critical Patient 06/07/2025 11:51 AM EDT [facility] Blood BLOOD SPECIMEN / Unknown 06/07/2025 11:49 AM EDT 06/07/2025 11:51 AM EDT Hugh Zamarripa MD POINT OF CARE TEST ORDER PEDRO LUIS Final Result Performing Organization Address [facility] de Phone Number [facility] [address] [place] [address] * (ABNORMAL) GLUCOSE METER POC (06/07/2025 7:50 AM EDT) Glucose Meter POC 135(H) 70 - 100 mg/dL 06/07/2025 7:52 AM EDT [facility] Sample Type Capillary 06/07/2025 7:52 AM EDT [facility] Patient Status Non-Critical Patient 06/07/2025 7:52 AM EDT [facility] Blood BLOOD SPECIMEN / Unknown 06/07/2025 7:50 AM EDT 06/07/2025 7:52 AM EDT Hugh Zamarripa MD POINT OF CARE TEST ORDER PEDRO LUIS Final Result Performing Organization Address City/[facility] Co de Phone Number [facility] [address] [place] [address] * XR HIP LEFT AP LATERAL W [...] - 10.3 x10(3)/mcL 06/07/2025 5:11 AM EDT [facility] RBC 3.92 3.90 - 5.20 x10(6)/mcL 06/07/2025 5:11 AM EDT [facility] Hgb 11.8 11.2 - 15.7 g/dL 06/07/2025 5:11 AM [facility] Hct 36.3 34.0 - 45.0 % 06/07/2025 5:11 AM [facility] MCV 92.6 80.0 - 100.0 fL 06/07/2025 5:11 AM [facility] MCH 30.1 26.0 - 34.0 pg 06/07/2025 5:11 AM [facility] MCHC 32.5 30.7 - 35.5 g/dL 06/07/2025 5:11 AM [facility] RDW 12.5 <=14.9 % 06/07/2025 5:11 AM [facility] Platelet 341 155 - 369 x10(3)/mcL 06/07/2025 5:11 AM [facility] MPV 9.0 8.8 - 12.5 fL 06/07/2025 5:11 AM [facility] Neut Percent 79.0 % 06/07/2025 5:11 AM [facility] Comment:Neutrophils equals s egs plus bands Imm Gran% 0.4 % 06/07/2025 5:11 AM [facility] Comment:Automated count of m etamyelocytes, myelocytes and promyelocytes. Lymph Percent 11.7 % 06/07/2025 5:11 AM [facility] Harding Percent 6.9 % 06/07/2025 5:11 AM [facility] Eos Percent 1.5 % 06/07/2025 5:11 AM [facility] Baso Percent 0.5 % 06/07/2025 5:11 AM [facility] Neut # 8.9(H) 1.6 - 6.1 x10(3)/mcL 06/07/2025 5:11 AM [facility] Comment:Neutrophils equals s egs plus bands IMMGRAN# 0.0 0.0 - 0.1 x10(3)/mcL 06/07/2025 5:11 AM [facility] Comment:Automated count of m etamyelocytes, myelocytes and promyelocytes. An absolute IG <0.1 is reported as 0.0. Lymph # 1.3 1.2 - 3.9 x10(3)/mcL 06/07/2025 5:11 AM EDT [facility] Harding # 0.8 0.3 - 0.9 x10(3)/mcL 06/07/2025 5:11 AM EDT [facility] Eos# 0.2 0.0 - 0.5 x10(3)/mcL 06/07/2025 5:11 AM EDT [facility] Baso # 0.1 0.0 - 0.1 x10(3)/mcL 06/07/2025 5:11 AM EDT [facility] Blood VENOUS BLOOD / Unknown Venipuncture / Unknown 06/07/2025 5:09 AM EDT 06/07/2025 5:09 AM EDT us Viral Sargent V, DO HEMATOLOGY ORDERABLES Final Re sult [facility] [address] [place] [address] * (ABNORMAL) BASIC METABOLIC PANEL (06/07/2025 5:09 AM EDT) Sodium 142 136 - 145 mmol/L 06/07/2025 5:30 AM EDT [facility] Potassium 3.3(L) 3.5 - 5.0 mmol/L 06/07/2025 5:30 AM T [facility] Chloride 104 98 - 107 mmol/L 06/07/2025 5:30 AM EDT [facility] Total CO2 28 22 - 29 mmol/L 06/07/2025 5:30 AM EDT [facility] Anion Gap 10 7 - 16 mmol/L 06/07/2025 5:30 AM T [facility] Calcium 8.7(L) 8.8 - 10.4 mg/dL 06/07/2025 5:30 AM T [facility] Glucose Lvl 143(H) 70 - 99 mg/dL 06/07/2025 5:30 AM T [facility] BUN 16 8 - 23 mg/dL 06/07/2025 5:30 AM T [facility] Creatinine 0.66 0.51 - 1.30 mg/dL 06/07/2025 5:30 AM EDT [facility] eGFR (CKD-EPIcr 2020) 85 >=60 mL/min/1.7 3 m2 06/07/2025 5:30 AM EDT [facility] Comment:Estimated GFR was ca lculated using the CKD-EPIcr (2020) equation refit without race. The equation is recommended by the [employer] - [place] [employer] Neph[employer] Task Force. Blood VENOUS BLOOD / Unknown Venipuncture / Unknown 06/07/2025 5:09 AM EDT 06/07/2025 5:09 AM EDT us Geo Merchant DO CHEMISTRY ORDERABLES Final Res ult Performing Organization Address City/[facility]/ZIP Co de Phone Number [facility] [address] [place] [address] * (ABNORMAL) GLUCOSE METER POC (06/06/2025 9:21 PM EDT) Glucose Meter POC 126(H) 70 - 100 mg/dL 06/06/2025 9:23 PM EDT [facility] Sample Type Capillary 06/06/2025 9:23 PM EDT [facility] Patient Status Non-Critical Patient 06/06/2025 9:23 PM EDT [facility] Blood BLOOD SPECIMEN / Unknown 06/06/2025 9:21 PM EDT 06/06/2025 9:23 PM EDT Hugh Zamarripa MD POINT OF CARE TEST ORDER PEDRO LUIS Final Result Performing Organization Address City/[facility]/ZIP Co de Phone Number [facility] [address] [place] [address] * (ABNORMAL) GLUCOSE METER POC (06/06/2025 4:50 PM EDT) Glucose Meter POC 161(H) 70 - 100 mg/dL 06/06/2025 4:52 PM EDT [facility] Sample Type Capillary 06/06/2025 4:52 PM EDT [facility] Patient Status Non-Critical Patient 06/06/2025 4:52 PM EDT [facility] Blood BLOOD SPECIMEN / Unknown 06/06/2025 4:50 PM EDT 06/06/2025 4:52 PM EDT Hugh Zamarripa MD POINT OF CARE TEST ORDER PEDRO LUIS Final Result Performing Organization Address City/[facility] Co de Phone Number [facility] [address] [place] [address] * (ABNORMAL) GLUCOSE METER POC (06/06/2025 12:37 PM EDT) Glucose Meter POC 137(H) 70 - 100 mg/dL 06/06/2025 12:38 PM EDT [facility] Sample Type Capillary 06/06/2025 12:38 PM EDT [facility] Patient Status Non-Critical Patient 06/06/2025 12:38 PM EDT [facility] Blood BLOOD SPECIMEN / Unknown 06/06/2025 12:37 PM EDT 06/06/2025 12:38 PM EDT Hugh Zamarripa MD POINT OF CARE TEST ORDER PEDRO LUIS Final Result Performing Organization Address City/[facility] Co de Phone Number [facility] [address] [place] [address] * (ABNORMAL) GLUCOSE METER POC (06/06/2025 7:53 AM EDT) Glucose Meter POC 105(H) 70 - 100 mg/dL 06/06/2025 7:54 AM EDT [facility] Sample Type Capillary 06/06/2025 7:54 AM EDT [facility] Patient Status Non-Critical Patient 06/06/2025 7:54 AM EDT [facility] Blood BLOOD SPECIMEN / Unknown 06/06/2025 7:53 AM EDT 06/06/2025 7:54 AM EDT Hugh Zamarripa MD POINT OF CARE TEST ORDER PEDRO LUIS Final Result Performing Organization Address City/[facility]/ZIP Co de Phone Number [facility] [address] [place] [address] * (ABNORMAL) BASIC METABOLIC PANEL (06/06/2025 5:26 AM EDT) Sodium 145 136 - 145 mmol/L 06/06/2025 5:48 AM EDT [facility] Potassium 3.1(L) 3.5 - 5.0 mmol/L 06/06/2025 5:48 AM EDT [facility] Chloride 104 98 - 107 mmol/L 06/06/2025 5:48 AM EDT [facility] Total CO2 29 22 - 29 mmol/L 06/06/2025 5:48 AM EDT [facility] Anion Gap 12 7 - 16 mmol/L 06/06/2025 5:48 AM EDT [facility] Calcium 8.8 8.8 - 10.4 mg/dL 06/06/2025 5:48 AM EDT [facility] Glucose Lvl 132(H) 70 - 99 mg/dL 06/06/2025 5:48 AM EDT [facility] BUN 18 8 - 23 mg/dL 06/06/2025 5:48 AM EDT [facility] Creatinine 0.67 0.51 - 1.30 mg/dL 06/06/2025 5:48 AM EDT [facility] eGFR (CKD-EPIcr 2020) 86 >=60 mL/min/1.7 3 m2 06/06/2025 5:48 AM EDT [facility] Comment:Estimated GFR was ca lculated using the CKD-EPIcr (2020) equation refit without race. The equation is recommended by the [employer] - [place] [employer] Neph[employer] Task Force. Blood VENOUS BLOOD / Unknown Venipuncture / Unknown 06/06/2025 5:26 AM EDT 06/06/2025 5:26 AM EDT us Viral Sargent V, DO CHEMISTRY ORDERABLES Final Res ult Performing Organization Address City/[facility]/ZIP Co de Phone Number [facility] [address] [place] [address] * (ABNORMAL) CBC WITH DIFF (06/06/2025 5:26 AM EDT) WBC 11.9(H) 3.7 - 10.3 x10(3)/mcL 06/06/2025 5:30 AM EDT [facility] RBC 3.98 3.90 - 5.20 x10(6)/mcL 06/06/2025 5:30 AM EDT [facility] Hgb 12.0 11.2 - 15.7 g/dL 06/06/2025 5:30 AM EDT [facility] Hct 37.1 34.0 - 45.0 % 06/06/2025 5:30 AM EDT [facility] MCV 93.2 80.0 - 100.0 fL 06/06/2025 5:30 AM EDT [facility] MCH 30.2 26.0 - 34.0 pg 06/06/2025 5:30 AM EDT [facility] MCHC 32.3 30.7 - 35.5 g/dL 06/06/2025 5:30 AM EDT [facility] RDW 12.5 <=14.9 % 06/06/2025 5:30 AM EDT [facility] Platelet 345 155 - 369 x10(3)/mcL 06/06/2025 5:30 AM EDT [facility] MPV 9.1 8.8 - 12.5 fL 06/06/2025 5:30 AM EDT [facility] Neut Percent 76.0 % 06/06/2025 5:30 AM EDT [facility] Comment:Neutrophils equals s egs plus bands Imm Gran% 0.4 % 06/06/2025 5:30 AM EDT [facility] Comment:Automated count of m etamyelocytes, myelocytes and promyelocytes. Lymph Percent 14.7 % 06/06/2025 5:30 AM EDT [facility] Harding Percent 6.8 % 06/06/2025 5:30 AM EDT [facility] Eos Percent 1.8 % 06/06/2025 5:30 AM EDT [facility] Baso Percent 0.3 % 06/06/2025 5:30 AM EDT [facility] Neut # 9.1(H) 1.6 - 6.1 x10(3)/[facility] 06/06/2025 5:30 AM EDT [facility] Comment:Neutrophils equals s egs plus bands IMMGRAN# 0.1 0.0 - 0.1 x10(3)/[facility] 06/06/2025 5:30 AM EDT [facility] Comment:Automated count of m etamyelocytes, myelocytes and promyelocytes. An absolute IG <0.1 is reported as 0.0. Lymph # 1.8 1.2 - 3.9 x10(3)/[facility] 06/06/2025 5:30 AM EDT [facility] Harding # 0.8 0.3 - 0.9 x10(3)/[facility] 06/06/2025 5:30 AM EDT [facility] Eos# 0.2 0.0 - 0.5 x10(3)/[facility] 06/06/2025 5:30 AM EDT [facility] Baso # 0.0 0.0 - 0.1 x10(3)/[facility] 06/06/2025 5:30 AM EDT [facility] Blood VENOUS BLOOD / Unknown Venipuncture / Unknown 06/06/2025 5:26 AM EDT 06/06/2025 5:26 AM EDT us Viral Sargent V, DO HEMATOLOGY ORDERABLES Final Re sult [facility] [address] [place] [address] * (ABNORMAL) GLUCOSE METER POC (06/05/2025 8:23 PM EDT) [facility] Glucose Meter POC 184(H) 70 - 100 mg/dL 06/05/2025 8:25 PM EDT [facility] Sample Type Capillary 06/05/2025 8:25 PM EDT [facility] Patient Status Non-Critical Patient 06/05/2025 8:25 PM EDT [facility] Blood BLOOD SPECIMEN / Unknown 06/05/2025 8:23 PM EDT 06/05/2025 8:25 PM EDT Hugh Zamarripa MD POINT OF CARE TEST ORDER PEDRO LUIS Final Result [facility] [address] [place] [address] * (ABNORMAL) GLUCOSE METER POC (06/05/2025 5:14 PM EDT) Glucose Meter POC 151(H) 70 - 100 mg/dL 06/05/2025 5:15 PM EDT [facility] Sample Type Capillary 06/05/2025 5:15 PM EDT [facility] Patient Status Non-Critical Patient 06/05/2025 5:15 PM EDT [facility] Blood BLOOD SPECIMEN / Unknown 06/05/2025 5:14 PM EDT 06/05/2025 5:15 PM EDT Hugh Zamarripa MD POINT OF CARE TEST ORDER PEDRO LUIS Final Result Performing Organization Address City/[facility] Co de Phone Number [facility] [address] [place] [address] * (ABNORMAL) GLUCOSE METER POC (06/05/2025 12:00 PM EDT) Glucose Meter POC 132(H) 70 - 100 mg/dL 06/05/2025 12:01 PM EDT [facility] Sample Type Capillary 06/05/2025 12:01 PM EDT [facility] Patient Status Non-Critical Patient 06/05/2025 12:01 PM EDT [facility] Blood BLOOD SPECIMEN / Unknown 06/05/2025 12:00 PM EDT 06/05/2025 12:01 PM EDT Hugh Zamarripa MD POINT OF CARE TEST ORDER PEDRO LUIS Final Result [facility] [address] [place] [address] * (ABNORMAL) GLUCOSE METER POC (06/05/2025 7:52 AM EDT) Glucose Meter POC 157(H) 70 - 100 mg/dL 06/05/2025 7:53 AM EDT [facility] Sample Type Capillary 06/05/2025 7:53 AM EDT [facility] Patient Status Non-Critical Patient 06/05/2025 7:53 AM EDT [facility] Blood BLOOD SPECIMEN / Unknown 06/05/2025 7:52 AM EDT 06/05/2025 7:53 AM EDT Hugh Zamarripa MD POINT OF CARE TEST ORDER PEDRO LUIS Final Result Performing Organization Address [facility]/ZIP Co de Phone Number [facility] [address] [place] [address] * (ABNORMAL) GLUCOSE METER POC (06/04/2025 9:05 PM EDT) Glucose Meter POC 165(H) 70 - 100 mg/dL 06/04/2025 9:07 PM EDT [facility] Sample Type Capillary 06/04/2025 9:07 PM EDT [facility] Patient Status Non-Critical Patient 06/04/2025 9:07 PM EDT [facility] Blood BLOOD SPECIMEN / Unknown 06/04/2025 9:05 PM EDT 06/04/2025 9:07 PM EDT Hugh Zamarripa MD POINT OF CARE TEST ORDER PEDRO LUIS Final Result [facility] [address] [place] [address] * (ABNORMAL) GLUCOSE METER POC (06/04/2025 5:06 PM EDT) Glucose Meter POC 124(H) 70 - 100 mg/dL 06/04/2025 5:08 PM EDT [facility] Sample Type Capillary 06/04/2025 5:08 PM EDT [facility] Patient Status Non-Critical Patient 06/04/2025 5:08 PM EDT [facility] Blood BLOOD SPECIMEN / Unknown 06/04/2025 5:06 PM EDT 06/04/2025 5:08 PM EDT Hugh Zamarripa MD POINT OF CARE TEST ORDER PEDRO LUIS Final Result Performing Organization Address City/[facility]/ZIP Co de Phone Number [facility] [address] [place] [address] * (ABNORMAL) GLUCOSE METER POC (06/04/2025 12:01 PM EDT) Glucose Meter POC 199(H) 70 - 100 mg/dL 06/04/2025 12:02 PM EDT [facility] Sample Type Capillary 06/04/2025 12:02 PM EDT [facility] Patient Status Non-Critical Patient 06/04/2025 12:02 PM EDT [facility] Blood BLOOD SPECIMEN / Unknown 06/04/2025 12:01 PM EDT 06/04/2025 12:02 PM EDT Hugh Zamarripa MD POINT OF CARE TEST ORDER PEDRO LUIS Final Result Performing Organization Address City/[facility] de Phone Number [facility] [address] [place] [address] * (ABNORMAL) GLUCOSE METER POC (06/04/2025 8:52 AM EDT) Glucose Meter POC 164(H) 70 - 100 mg/dL 06/04/2025 8:54 AM EDT [facility] Sample Type Capillary 06/04/2025 8:54 AM EDT [facility] Patient Status Non-Critical Patient 06/04/2025 8:54 AM EDT [facility] Blood BLOOD SPECIMEN / Unknown 06/04/2025 8:52 AM EDT 06/04/2025 8:54 AM EDT Hugh Zamarripa MD POINT OF CARE TEST ORDER PEDRO LUIS Final Result Performing Organization Address [facility] de Phone Number [facility] [address] [place] [address] * (ABNORMAL) GLUCOSE METER POC (06/03/2025 8:26 PM EDT) Glucose Meter POC 236(H) 70 - 100 mg/dL 06/03/2025 8:28 PM EDT [facility] Sample Type Capillary 06/03/2025 8:28 PM EDT [facility] Patient Status Non-Critical Patient 06/03/2025 8:28 PM EDT [facility] Blood BLOOD SPECIMEN / Unknown 06/03/2025 8:26 PM EDT 06/03/2025 8:28 PM EDT Hugh Zamarripa MD POINT OF CARE TEST ORDER PEDRO LUIS Final Result Performing Organization Address [facility] de Phone Number [facility] [address] [place] [address] * (ABNORMAL) GLUCOSE METER POC (06/03/2025 4:49 PM EDT) Glucose Meter POC 158(H) 70 - 100 mg/dL 06/03/2025 4:50 PM EDT [facility] Sample Type Capillary 06/03/2025 4:50 PM EDT [facility] Patient Status Non-Critical Patient 06/03/2025 4:50 PM EDT [facility] Blood BLOOD SPECIMEN / Unknown 06/03/2025 4:49 PM EDT 06/03/2025 4:50 PM EDT Hugh Zamarripa MD POINT OF CARE TEST ORDER PEDRO LUIS Final Result Performing Organization Address City/[facility] Co de Phone Number [facility] [address] [place] [address] * (ABNORMAL) GLUCOSE METER POC (06/03/2025 11:16 AM EDT) Glucose Meter POC 157(H) 70 - 100 mg/dL 06/03/2025 11:18 AM EDT [facility] Sample Type Capillary 06/03/2025 11:18 AM EDT [facility] Patient Status Non-Critical Patient 06/03/2025 11:18 AM EDT [facility] Blood BLOOD SPECIMEN / Unknown 06/03/2025 11:16 AM EDT 06/03/2025 11:18 AM EDT Hugh Zamarripa MD POINT OF CARE TEST ORDER PEDRO LUIS Final Result Performing Organization Address City/[facility]/ZIP Co de Phone Number [facility] [address] [place] [address] * (ABNORMAL) GLUCOSE METER POC (06/03/2025 8:00 AM EDT) Glucose Meter POC 182(H) 70 - 100 mg/dL 06/03/2025 8:01 AM EDT [facility] Sample Type Capillary 06/03/2025 8:01 AM EDT [facility] Patient Status Non-Critical Patient 06/03/2025 8:01 AM EDT [facility] Blood BLOOD SPECIMEN / Unknown 06/03/2025 8:00 AM EDT 06/03/2025 8:01 AM EDT Hugh Zamarripa MD POINT OF CARE TEST ORDER PEDRO LUIS Final Result Performing Organization Address City/[facility]/ZIP Co de Phone Number [facility] [address] [place] [address] * (ABNORMAL) GLUCOSE METER POC (06/02/2025 9:00 PM EDT) Glucose Meter POC 192(H) 70 - 100 mg/dL 06/02/2025 9:02 PM EDT [facility] Sample Type Capillary 06/02/2025 9:02 PM EDT [facility] Patient Status Non-Critical Patient 06/02/2025 9:02 PM EDT [facility] Blood BLOOD SPECIMEN / Unknown 06/02/2025 9:00 PM EDT 06/02/2025 9:02 PM EDT Hugh Zamarripa MD POINT OF CARE TEST ORDER PEDRO LUIS Final Result Performing Organization Address City/[facility]/ZIP Co de Phone Number [facility] [address] [place] [address] * (ABNORMAL) GLUCOSE METER POC (06/02/2025 4:25 PM EDT) Glucose Meter POC 131(H) 70 - 100 mg/dL 06/02/2025 4:27 PM EDT [facility] Sample Type Capillary 06/02/2025 4:27 PM EDT [facility] Patient Status Non-Critical Patient 06/02/2025 4:27 PM EDT [facility] Blood BLOOD SPECIMEN / Unknown 06/02/2025 4:25 PM EDT 06/02/2025 4:27 PM EDT Hugh Zamarripa MD POINT OF CARE TEST ORDER PEDRO LUIS Final Result Performing Organization Address City/[facility]/ZIP Co de Phone Number [facility] [address] [place] [address] * (ABNORMAL) GLUCOSE METER POC (06/02/2025 12:17 PM EDT) Glucose Meter POC 139(H) 70 - 100 mg/dL 06/02/2025 12:19 PM EDT [facility] Sample Type Capillary 06/02/2025 12:19 PM EDT [facility] Patient Status Non-Critical Patient 06/02/2025 12:19 PM EDT [facility] Blood BLOOD SPECIMEN / Unknown 06/02/2025 12:17 PM EDT 06/02/2025 12:19 PM EDT Hugh Zamarripa MD POINT OF CARE TEST ORDER PEDRO LUIS Final Result [facility] [address] [place] [address] * (ABNORMAL) GLUCOSE METER POC (06/02/2025 8:30 AM EDT) Glucose Meter POC 185(H) 70 - 100 mg/dL 06/02/2025 8:32 AM EDT [facility] Sample Type Capillary 06/02/2025 8:32 AM EDT [facility] Patient Status Non-Critical Patient 06/02/2025 8:32 AM EDT [facility] Blood BLOOD SPECIMEN / Unknown 06/02/2025 8:30 AM EDT 06/02/2025 8:32 AM EDT Hugh Zamarripa MD POINT OF CARE TEST ORDER PEDRO LUIS Final Result Performing Organization Address City/[facility]/ZIP Co de Phone Number [facility] [address] [place] [address] * (ABNORMAL) GLUCOSE METER POC (06/01/2025 8:00 PM EDT) Glucose Meter POC 251(H) 70 - 100 mg/dL 06/01/2025 8:04 PM EDT [facility] Sample Type Capillary 06/01/2025 8:04 PM EDT [facility] Patient Status Non-Critical Patient 06/01/2025 8:04 PM EDT [facility] Blood BLOOD SPECIMEN / Unknown 06/01/2025 8:00 PM EDT 06/01/2025 8:04 PM EDT Hugh Zamarripa MD POINT OF CARE TEST ORDER PEDRO LUIS Final Result [facility] [address] [place] [address] * (ABNORMAL) GLUCOSE METER POC (06/01/2025 4:41 PM EDT) Glucose Meter POC 247(H) 70 - 100 mg/dL 06/01/2025 4:43 PM EDT [facility] Sample Type Capillary 06/01/2025 4:43 PM EDT [facility] Patient Status Non-Critical Patient 06/01/2025 4:43 PM EDT [facility] Blood BLOOD SPECIMEN / Unknown 06/01/2025 4:41 PM EDT 06/01/2025 4:43 PM EDT Result [facility] Hugh Zamarripa MD POINT OF CARE TEST ORDER PEDRO LUIS Final Result Performing Organization Address City/[facility]/ZIP Co de Phone Number [facility] [address] [place] [address] * (ABNORMAL) GLUCOSE METER POC (06/01/2025 12:17 PM EDT) Glucose Meter POC 235(H) 70 - 100 mg/dL 06/01/2025 12:19 PM EDT [facility] Sample Type Capillary 06/01/2025 12:19 PM EDT [facility] Patient Status Non-Critical Patient 06/01/2025 12:19 PM EDT [facility] Blood BLOOD SPECIMEN / Unknown 06/01/2025 12:17 PM EDT 06/01/2025 12:19 PM EDT Result [facility] Hugh Zamarripa MD POINT OF CARE TEST ORDER PEDRO LUIS Final Result Performing Organization Address [facility] de Phone Number [facility] [address] [place] [address] * (ABNORMAL) GLUCOSE METER POC (06/01/2025 8:36 AM EDT) Glucose Meter POC 242(H) 70 - 100 mg/dL 06/01/2025 8:37 AM EDT [facility] Sample Type Capillary 06/01/2025 8:37 AM EDT [facility] Patient Status Non-Critical Patient 06/01/2025 8:37 AM EDT [facility] Blood BLOOD SPECIMEN / Unknown 06/01/2025 8:36 AM EDT 06/01/2025 8:37 AM EDT Hugh Zamarripa MD POINT OF CARE TEST ORDER PEDRO LUIS Final Result Performing Organization Address [facility] de Phone Number [facility] [address] [place] [address] * (ABNORMAL) GLUCOSE METER POC (05/31/2025 8:03 PM EDT) Glucose Meter POC 202(H) 70 - 100 mg/dL 05/31/2025 8:04 PM EDT [facility] Sample Type Capillary 05/31/2025 8:04 PM EDT [facility] Patient Status Non-Critical Patient 05/31/2025 8:04 PM EDT [facility] Blood BLOOD SPECIMEN / Unknown 05/31/2025 8:03 PM EDT 05/31/2025 8:04 PM EDT Hugh Zamarripa MD POINT OF CARE TEST ORDER PEDRO LUIS Final Result Performing Organization Address [facility] Phone Number [facility] [address] [place] [address] * PARTIAL THROMBOPLASTIN TIME (05/31/2025 4:43 PM EDT) PTT 31.8 25.7 - 36.8 second(s) 05/31/2025 4:58 PM EDT [facility] Comment: Therapeutic range for unfractionated [...] Zamarripa MD HEMATOLOGY ORDERABLES Fi nal Result [facility] [address] [place] [address] * (ABNORMAL) PT / INR (05/31/2025 4:43 PM EDT) Pathologist [facility] PT 13.7(H) 10.5 - 13.6 second(s) 05/31/2025 4:58 PM EDT [facility] INR 1.19(H) 0.91 - 1.18 (ratio) 05/31/2025 4:58 PM EDT [facility] Comment: Level of Therapy Indications Target INR Range Standard Dose Treatment and prophylaxis of venous 2.0 - 3.0 thrombosis, pulmonary embolism High Dose High risk patients with mechanical 2.5 - 3.5 heart valves Blood VENOUS BLOOD / Unknown Venipuncture / Unknown 05/31/2025 4:43 PM EDT 05/31/2025 4:47 PM EDT Hugh Zamarripa MD HEMATOLOGY ORDERABLES nal Result Performing Organization Address [facility]/State/ZIP Co de Phone Number [facility] [address] [place] [address] * (ABNORMAL) CBC WITH DIFF (05/31/2025 4:43 PM EDT) Pathologist [facility] WBC 11.6(H) 3.7 - 10.3 x10(3)/mcL 05/31/2025 4:51 PM EDT [facility] RBC 4.09 3.90 - 5.20 x10(6)/mcL 05/31/2025 4:51 PM EDT [facility] Hgb 12.1 11.2 - 15.7 g/dL 05/31/2025 4:51 PM EDT [facility] Hct 38.3 34.0 - 45.0 % 05/31/2025 4:51 PM EDT [facility] MCV 93.6 80.0 - 100.0 fL 05/31/2025 4:51 PM EDT [facility] MCH 29.6 26.0 - 34.0 pg 05/31/2025 4:51 PM EDT [facility] MCHC 31.6 30.7 - 35.5 g/dL 05/31/2025 4:51 PM [facility] RDW 12.1 <=14.9 % 05/31/2025 4:51 PM [facility] Platelet 291 155 - 369 x10(3)/[facility] 05/31/2025 4:51 PM [facility] MPV 9.2 8.8 - 12.5 fL 05/31/2025 4:51 PM [facility] Neut Percent 71.9 % 05/31/2025 4:51 PM [facility] Comment:Neutrophils equals s egs plus bands Imm Gran% 0.2 % 05/31/2025 4:51 PM [facility] Comment:Automated count of m etamyelocytes, myelocytes and promyelocytes. Lymph Percent 13.9 % 05/31/2025 4:51 PM [facility] Harding Percent 12.8 % 05/31/2025 4:51 PM [facility] Eos Percent 0.9 % 05/31/2025 4:51 PM [facility] Baso Percent 0.3 % 05/31/2025 4:51 PM [facility] Neut # 8.3(H) 1.6 - 6.1 x10(3)/[facility] 05/31/2025 4:51 PM [facility] Comment:Neutrophils equals s egs plus bands IMMGRAN# 0.0 0.0 - 0.1 x10(3)/mcL 05/31/2025 4:51 PM [facility] Comment:Automated count of m etamyelocytes, myelocytes and promyelocytes. An absolute IG <0.1 is reported as 0.0. Lymph # 1.6 1.2 - 3.9 x10(3)/mcL 05/31/2025 4:51 PM [facility] [place]ing # 1.5(H) 0.3 - 0.9 x10(3)/mcL 05/31/2025 4:51 PM [facility] Eos# 0.1 0.0 - 0.5 x10(3)/mcL 05/31/2025 4:51 PM [facility] Baso # 0.0 0.0 - 0.1 x10(3)/mcL 05/31/2025 4:51 PM EDT [facility] Blood VENOUS BLOOD / Unknown Venipuncture / Unknown 05/31/2025 4:43 PM EDT 05/31/2025 4:47 PM EDT Hugh Zamarripa MD HEMATOLOGY ORDERABLES Fi nal Result Performing Organization Address City/[facility] Co de Phone Number [facility] [address] [place] [address] * (ABNORMAL) GLUCOSE METER POC (05/31/2025 4:37 PM EDT) Glucose Meter POC 175(H) 70 - 100 mg/dL 05/31/2025 4:40 PM EDT [facility] Sample Type Capillary 05/31/2025 4:40 PM EDT [facility] Patient Status Non-Critical Patient 05/31/2025 4:40 PM EDT [facility] Blood BLOOD SPECIMEN / Unknown 05/31/2025 4:37 PM EDT 05/31/2025 4:40 PM EDT Hugh Zamarripa MD POINT OF CARE TEST ORDER PEDRO LUIS Final Result Performing Organization Address [facility] de Phone Number [facility] [address] [place] [address] * (ABNORMAL) GLUCOSE METER POC (05/31/2025 11:41 AM EDT) Glucose Meter POC 195(H) 70 - 100 mg/dL 05/31/2025 11:42 AM EDT [facility] Sample Type Capillary 05/31/2025 11:42 AM EDT [facility] Patient Status Non-Critical Patient 05/31/2025 11:42 AM EDT [facility] Blood BLOOD SPECIMEN / Unknown 05/31/2025 11:41 AM EDT 05/31/2025 11:42 AM EDT Hugh Zamarripa MD POINT OF CARE TEST ORDER PEDRO LUIS Final Result Performing Organization Address City/[facility] Co de Phone Number [facility] [address] [place] [address] * (ABNORMAL) GLUCOSE METER POC (05/31/2025 8:12 AM EDT) Glucose Meter POC 233(H) 70 - 100 mg/dL 05/31/2025 8:13 AM EDT [facility] Sample Type Capillary 05/31/2025 8:13 AM EDT [facility] Patient Status Non-Critical Patient 05/31/2025 8:13 AM EDT [facility] Blood BLOOD SPECIMEN / Unknown 05/31/2025 8:12 AM EDT 05/31/2025 8:13 AM EDT Hugh Zamarripa MD POINT OF CARE TEST ORDER PEDRO LUIS Final Result Performing Organization Address [facility] de Phone Number [facility] [address] [place] [address] * (ABNORMAL) GLUCOSE METER POC (05/30/2025 7:58 PM EDT) Glucose Meter POC 272(H) 70 - 100 mg/dL 05/30/2025 8:01 PM EDT [facility] Sample Type Capillary 05/30/2025 8:01 PM EDT [facility] Patient Status Non-Critical Patient 05/30/2025 8:01 PM EDT [facility] Blood BLOOD SPECIMEN / Unknown 05/30/2025 7:58 PM EDT 05/30/2025 8:01 PM EDT Hugh Zamarripa MD POINT OF CARE TEST ORDER PEDRO LUIS Final Result Performing Organization Address City/[facility] Co de Phone Number [facility] [address] [place] [address] * (ABNORMAL) GLUCOSE METER POC (05/30/2025 5:07 PM EDT) [facility] Signature Glucose Meter POC 269(H) 70 - 100 mg/dL 05/30/2025 5:09 PM EDT [facility] Sample Type Capillary 05/30/2025 5:09 PM EDT [facility] Patient Status Non-Critical Patient 05/30/2025 5:09 PM EDT [facility] Blood BLOOD SPECIMEN / Unknown 05/30/2025 5:07 PM EDT 05/30/2025 5:09 PM EDT us Hugh Zamarripa MD POINT OF CARE TEST ORDER PEDRO LUIS Final Result [facility] [address] [place] [address] * CT ABDOMEN PELVIS HEMATURIA/RENAL MASS PROTOCOL [...] * CREATININE ISTAT (05/30/2025 1:26 PM EDT) [facility] Creatinine-iST AT 0.9 0.6 - 1.3 mg/dL 05/30/2025 1:28 PM EDT [facility] Blood BLOOD SPECIMEN / Unknown 05/30/2025 1:26 PM EDT 05/30/2025 1:28 PM EDT Hugh Zamarripa MD POINT OF CARE TEST ORDER PEDRO LUIS Final Result [facility] [address] [place] [address] * (ABNORMAL) GLUCOSE METER POC (05/30/2025 9:02 AM EDT) Glucose Meter POC 272(H) 70 - 100 mg/dL 05/30/2025 9:03 AM EDT [facility] Sample Type Capillary 05/30/2025 9:03 AM EDT [facility] Patient Status Non-Critical Patient 05/30/2025 9:03 AM EDT [facility] Blood BLOOD SPECIMEN / Unknown 05/30/2025 9:02 AM EDT 05/30/2025 9:03 AM EDT Hugh Zamarripa MD POINT OF CARE TEST ORDER PEDRO LUIS Final Result Performing Organization Address City/[facility]/ZIP Co de Phone Number [facility] [address] [place] [address] * (ABNORMAL) GLUCOSE METER POC (05/29/2025 9:25 PM EDT) Glucose Meter POC 214(H) 70 - 100 mg/dL 05/29/2025 9:26 PM EDT [facility] Sample Type Capillary 05/29/2025 9:26 PM EDT [facility] Patient Status Non-Critical Patient 05/29/2025 9:26 PM EDT [facility] Blood BLOOD SPECIMEN / Unknown 05/29/2025 9:25 PM EDT 05/29/2025 9:26 PM EDT Hugh Zamarripa MD POINT OF CARE TEST ORDER PEDRO LUIS Final Result Performing Organization Address City/[facility]/ZIP Co de Phone Number [facility] [address] [place] [address] documented in this encounter Visit Diagnoses Diagnosis Fractured hip, left, closed, initial encounter (HCC)- Primary Resides in detention facility 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 Pneumonia due to infectious organism, unspecified laterality, unspecified part of lung Closed fracture of left femur with routine healing, unspecified fracture morphology, unspecified portion of femur, subsequent encounter Type 2 diabetes mellitus without complication, without long-term current use of insulin ([facility]) Prophylactic measure Thrush Candidiasis of mouth [...] Unspecified essential hypertension 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 Adrenal adenoma, left Left renal mass Unspecified disorder of kidney and ureter Left lower lobe pulmonary nodule Hypokalemia Hypopotassemia Hypomagnesemia Disorders of magnesium metabolism Shortness of breath documented in this encounter Admitting Diagnoses Diagnosis Fractured hip, left, closed, initial encounter ([facility]) documented in this encounter Administered Medications Active Administered Medications - up to 1 most recent administrations Medication Order MAR Action Action Date Dose Rate Site acetaminophen (TYLENOL) tablet 1,000 mg 1,000 mg, Oral, *EVERY 8 HOURS, First dose on Thu06/09/25 at 1930, Until Discontinued, Maximum adult dose of acetaminophen is 4000 mg from all sources in 24 hours., Dx: 1. Closed fracture of left femur with routine healing, unspecified fracture morphology, unspecified portion of femur, subsequent encounterIndications:Clos ed fracture of left femur with routine healing, unspecified fracture morphology, unspecified portion of femur, subsequent encounter Given 06/12/2025 6:01 AM EDT 1,000 mg albuterol (PROVENTIL) nebulizer solution 2.5 mg 2.5 mg, Nebulization, PRN, Starting on Thu06/01/25 at 2311, Until Discontinued, Wheezing, Shortness of Breath Given 06/08/2025 6:12 [...] Discontinued, Dx: 1. 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Indications:Coron alyssa artery disease involving council coronary artery of council heart without angina pectoris Given 06/12/2025 9:09 AM EDT 81 mg cholecalciferol (vitamin D3) tablet 1,000 Units 1,000 Units, Oral, DAILY, First dose on Thu05/30/25 at 0900, Until Discontinued, Dx: 1. Resides in detention facilityIndications:Resid es in detention facility Given 06/12/2025 9:10 AM EDT 1,000 Units citalopram (CeleXA) tablet 5 mg 5 mg, Oral, 2 TIMES DAILY, First dose on 05/29/25 at 2115, Until Discontinued, Dx: 1. Resides in detention facilityIndications:major depressive disorder Given 06/12/2025 9:10 AM EDT 5 mg clopidogreL (PLAVIX) tablet 75 mg 75 mg, Oral, DAILY, First dose on Thu05/30/25 at 0900, Until Discontinued, Dx: 1. 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Indications:Coron alyssa artery disease involving council coronary artery of council heart without angina pectoris Given 06/12/2025 9:09 AM EDT 75 mg cyanocobalamin injection 1,000 mcg 1,000 mcg, Intramuscular, DAILY, First dose on Thu06/08/25 at 1545, Until Discontinued, Dx: 1. Other fatigueIndications:Other fatigue Given 06/12/2025 9:08 AM EDT 1,000 mcg Left Deltoid dextrose 50 % solution 25 mL 25 mL, Intravenous, PRN, Starting on Thu05/30/25 at 1723, Until Discontinued, Low blood sugar, If FSBS less than [...] PRN, Starting on Thu05/30/25 at 0607, Until Discontinued, Other, skin irritation, Application site: skin irritation, Dx: 1. Resides in detention facilityIndications:Resid es in detention facility glucagon (GLUCAGEN) injection 1 mg 1 mg, Intramuscular, PRN, Starting on Thu05/30/25 at 1723, Until Discontinued, Low blood sugar, If FSBS less than [...] Not for IV use. Supplied by Nutrition ServicesIndications:Resid es in detention facility,Closed fracture of left femur with routine healing, unspecified fracture morphology, unspecified portion of femur, subsequent encounter,Type 2 diabetes mellitus without complication, without long-term current use of insulin (HCC) Given 06/12/2025 9:12 AM EDT 1 'box' HYDROcodone-acetaminophen (NORCO) 5-325 mg per tablet 1 Tablet 1 Tablet, Oral, EVERY 6 HOURS PRN, Starting on Thu05/30/25 at 0620, Until Discontinued, Pain Unrelieved by Oral Non-Opioid Therapy, Maximum adult dose of acetaminophen is 4000 mg from all sources in 24 hours., Dx: 1. Closed fracture of left femur with routine healing, unspecified fracture morphology, unspecified portion of femur, subsequent encounterIndications:Clos ed fracture of left femur with routine healing, [...] least 3 hours. Waste Sort Code = [place] [employer]ous Waste Container, Blood Glucose Target [...] BEDTIME, First dose (after last modification) on [place] 06/04/25 at 1800, Until Discontinued, Blood Glucose [...] Subcutaneous, EVERY EVENING (INSULIN), First dose on [facility] 06/01/25 at 1900, Until Discontinued, A [...] 6:11 PM EDT 10 Units Left Arm PRABHAKAR powder oral supplement 1 Packet 1 Packet, Oral, 2 TIMES DAILY WITH MEALS (NUTR), First dose on Thu06/01/25 at 1800, Until Discontinued, ORANGE Mix 1 packet with 8-10 oz of juice or water. Administer orally. Not for IV use. Supplied by Nutrition ServicesIndications:Resid es in detention facility,Closed fracture of left femur with routine healing, unspecified fracture morphology, unspecified portion of femur, subsequent encounter Given 06/12/2025 9:12 AM EDT 1 Packet losartan (COZAAR) tablet 100 mg 100 mg, Oral, DAILY, First dose on Thu05/30/25 at 0900, Until Discontinued, Therapeutic Interchange for Irbesartan (AVAPRO) 300mg tab , Dx: 1. 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Indications:Coron alyssa artery disease involving council coronary artery of council heart without angina pectoris Given 06/12/2025 9:07 AM EDT 100 mg magnesium oxide (MAG-OX) tablet 400 mg 400 mg, Oral, 2 TIMES DAILY, First dose on Thu06/11/25 at 0900, Until Discontinued, Dx: 1. HypomagnesemiaIndications :Hypomagnesemia Given 06/12/2025 9:10 AM EDT 400 mg melatonin tablet 5 mg 5 mg, Oral, NIGHTLY PRN, Starting on Thu05/29/25 at 1833, Until Discontinued, Sleep, Dx: 1. Resides in detention facilityIndications:Resid es in detention facility Given 06/10/2025 9:52 PM EDT 5 mg metFORMIN (GLUCOPHAGE XR) ER tablet 500 mg 500 mg, Oral, 2 TIMES DAILY WITH MEALS, First dose on Thu05/30/25 at 0800, Until Discontinued, Take with food., Dx: 1. Resides in detention facilityIndications:type 2 diabetes mellitus Given 06/12/2025 9:10 AM EDT 500 mg metoprolol (LOPRESSOR) tablet 25 mg 25 mg, Oral, 2 TIMES DAILY, First dose on Thu05/29/25 at 2115, Until Discontinued, Preferably taken with or immediately following meals. Take consistently with relation to food., Dx: 1. Resides in detention facilityIndications:hyper tension Given 06/12/2025 9:08 AM EDT 25 mg miconazole (MICATIN) 2 % powder Topical, 2 TIMES DAILY, 84 doses, First dose on Thu06/08/25 at 1045, Last dose on Thu07/19/25 at 2100, Application site: [place], Dx: 1. ExcoriationIndications:Ex coriation Given 06/12/2025 9:17 AM EDT nystatin (MYCOSTATIN) 100,000 unit/mL suspension 500,000 Units 500,000 Units, Oral, 4 TIMES DAILY, 56 doses, First dose on Thu06/02/25 at 1030, Last dose on Thu06/15/25 at 2100, Swish and swallow., Reason for Therapy: Infection Documented, Indication: Other, Reason: thrush, Dx: 1. ThrushIndications:Thrush Given 06/12/2025 9:18 AM EDT 500,000 Units ondansetron (ZOFRAN) injection 4 mg 4 mg, Intravenous, EVERY 6 HOURS PRN, Starting on Thu05/31/25 at 1259, Until Discontinued, Nausea, Dx: 1. Prophylactic measureIndications:Prophy lactic measure ondansetron (ZOFRAN-ODT) disintegrating tablet 4 mg 4 mg, Oral, EVERY 6 HOURS PRN, Starting on Thu05/31/25 at 1259, Until Discontinued, Nausea, Dissolve in mouth, Dx: 1. Prophylactic measureIndications:Prophy lactic measure Given 06/11/2025 2:16 PM EDT 4 mg pantoprazole (PROTONIX) tablet 40 mg 40 mg, Oral, DAILY, First dose on Thu05/29/25 at 2200, Until Discontinued, Do not crush or chew, Dx: 1. Resides in detention facilityIndications:heart burn Given 06/11/2025 8:43 PM EDT 40 mg petrolatum-zinc oxide (TRIAD) topical paste Topical, PRN, Starting on Thu06/07/25 at 0930, Until Discontinued, Diaper Rash petrolatum-zinc oxide (TRIAD) topical paste Topical, DAILY, First dose on Thu06/07/25 at 0945, Until Discontinued Given 06/12/2025 9:18 AM EDT polyethylene glycol (GLYCOLAX, MIRALAX) packet 17 g 17 g, Oral, DAILY PRN, Starting on Thu05/29/25 at 1833, Until Discontinued, Constipation, For constipation unrelieved by Senokot-S, Dx: 1. Resides in detention facilityIndications:Resid es in detention facility rosuvastatin (CRESTOR) tablet 5 mg 5 mg, Oral, NIGHTLY, First dose on Thu05/29/25 at 2115, Until Discontinued, Dx: 1. Resides in detention facilityIndications:Resid es in detention facility Given 06/11/2025 8:43 PM EDT 5 mg Saccharomyces boulardii (FLORASTOR) capsule 250 mg 250 mg, Oral, 2 TIMES DAILY, First dose on Thu05/30/25 at 0900, Until Discontinued, If for feeding tube administration, open capsule/packet outside of patient's room and dissolve contents in 8-12 oz. of liquid, Dx: 1. Resides in detention facilityIndications:Resid es in detention facility Given 06/12/2025 9:10 AM EDT 250 mg senna-docusate (SENOKOT-S) 8.6-50 mg per tablet 2 Tablet 2 Tablet, Oral, 2 TIMES DAILY PRN, Starting on Thu05/29/25 at 1833, Until Discontinued, Constipation, Use first for constipation, Dx: 1. Resides in detention facilityIndications:Resid es in detention facility sterile water injection 1 mL 1 mL, Injection, PRN, Starting on Thu05/30/25 at 1723, Until Discontinued, Use for drug dilution, Use to dilute and administer glucagon injection, Insulin Calculator, Dx: 1. Type 2 diabetes mellitus without complication, without long-term current use of insulin (HCC)Indications:Type 2 diabetes mellitus without complication, without long-term current use of insulin (HCC) Inactive Administered Medications - up to 1 most recent administrations Medication Order MAR Action Action Date Dose Rate Site 0.9 % NaCl infusion Intravenous, at 75 mL/hr, CONTINUOUS, Starting on 06/10/25 at 1530, Until 06/11/25 at 0809, Dx: 1. Elevated lactic acid levelIndications:Percival wale lactic acid level New Bag 06/11/2025 12:33 AM EDT 75 mL/hr acetaminophen (TYLENOL) tablet 1,000 mg 1,000 mg, Oral, ONCE, 1 dose, On 06/11/25 at 1800, Maximum adult dose of acetaminophen is 4000 mg from all sources in 24 hours., Dx: 1. Prophylactic measureIndications:Pro phylactic measure Given 06/11/2025 6:10 PM EDT 1,000 mg acetaminophen (TYLENOL) tablet 650 mg 650 mg, Oral, EVERY 4 HOURS PRN, Starting on Thu05/29/25 at 1833, Until Thu06/09/25 at 1409, Pain, Fever, Temp greater than 101 F, Maximum adult dose of acetaminophen is 4000 mg from all sources in 24 hours., Dx: 1. Resides in detention facilityIndications:Re sides in detention facility Given 06/09/2025 11:23 AM EDT 650 mg albuterol-ipratropium (DUO-NEB) 3 mg-0.5 mg(2.5 mg base)/3 mL nebulizer solution 3 mL 3 mL, Nebulization, 4 TIMES DAILY EVENLY DISTRIBUTED ([facility]) (4 times per day), First dose on Thu05/29/25 at 2100, Until Discontinued, Administered by Respiratory Therapy. Given 06/01/2025 8:11 PM EDT 3 mL enoxaparin (LOVENOX) injection 40 mg 40 mg, Subcutaneous, DAILY - LMWH/Xa, First dose on Thu05/30/25 at 0745, Until Discontinued, Dx: 1. Resides in detention facilityIndications:Re sides in detention facility Given 05/31/2025 11:47 AM EDT 40 mg Abdominal Tissue fosfomycin (MONUROL) packet 3 g 3 g, Oral, ONCE, 1 dose, On Joana 06/08/25 at 1545, Dissolve contents of packet in 3-4 oz of water and administer immediately, Reason for Therapy: Infection Suspected, Indication: Urinary Tract Infection, Dx: 1. Acute cystitis without hematuriaIndications:A cute cystitis without hematuria Given 06/08/2025 3:46 PM EDT 3 g insulin aspart U-100 (NovoLOG) injection 0-40 Units [...] 12:55 PM EDT 2 Units Left Arm iopamidoL (ISOVUE-370) 370 mg iodine /mL (76 %) injection (LOW) 100 mL 100 mL, Intravenous, ONCE PRN, 1 dose, Starting on Thu05/30/25 at 1241, Until Thu05/30/25 at 1336, Radiography/Imaging, Radiology Procedure, VESICANT , CT (Contrasts) Given 05/30/2025 1:36 PM EDT 100 mL Left Arm levoFLOXacin (LEVAQUIN) tablet 750 mg 750 mg, [...] infectious organism, unspecified laterality, unspecified part of lungIndications:bacter ial pneumonia Given 06/02/2025 8:46 AM EDT 750 mg magnesium sulfate in dextrose 5% infusion 1 g 1 g, Intravenous, at 100 mL/hr, EVERY HOUR SCHEDULED, 1 dose, First dose on 06/10/25 at 1600, Infuse 2 x Magnesium Sulfate 1 g IVPB for a total dose of 2 g Magnesium Sulfate, Dx: 1. Hypokalemia 2. HypomagnesemiaIndicati ons:Hypokalemia,Hypoma gnesemia IV Started 06/10/2025 5:46 PM EDT 1 g 100 mL/hr magnesium sulfate in dextrose 5% infusion 1 g 1 g, Intravenous, at 100 mL/hr, EVERY HOUR SCHEDULED, 1 dose, First dose on 06/10/25 at 1700, Infuse 2 x Magnesium Sulfate 1 g IVPB for a total dose of 2 g Magnesium Sulfate, Dx: 1. HypomagnesemiaIndicati ons:Hypomagnesemia IV Started 06/10/2025 6:49 PM EDT 1 g 100 mL/hr potassium chloride (KLOR-CON) tablet 20 mEq 20 [...] dose on Thu06/11/25 at 0800, Dx: 1. HypokalemiaIndications :Hypokalemia Given 06/10/2025 5:59 PM EDT 40 mEq sodium chloride 0.9 % 250 mL IV bolus Intravenous, ONCE, 1 dose, On Thu06/10/25 at 2145, at 483.9 mL/hr, Dx: 1. Lactic acid blood increasedIndications:L actic acid blood increased IV Restarted 06/10/2025 10:18 PM EDT 483.9 mL/hr sodium chloride 0.9% syringe Intravenous, ONCE PRN, 1 dose, Starting on Thu05/30/25 at 1241, Until Thu05/30/25 at 1336, Line Care, Flush peripheral lines every 12 hours, central lines every 8 hours, and after IV medication, CT (Contrasts) Given 05/30/2025 1:36 PM EDT 20 mL Left Arm documented in this encounter Discontinued Medications Medication [...] by mouth 2 times daily (with meals). glyBURIDE (DIABETA) 5 mg Oral Tablet Take [...] mouth daily. Indications: urinary tract infection prevention amLODIPine-valsar rodas (EXFORGE) 10-320 mg Oral Tablet [...] Rm RN)1246 (Given - Provider: Janet Porras RN)2149 (Given - Provider: Stephany Lopez LPN) 0626 (Given - Provider: Stephany Lopez LPN)1416 (Not Given - Provider: Janet Porras RN - Reason: Patient Declined)220 (Not Given - Provider: Stephany Lopez LPN - Reason: Other - Comment: PRN dose of [place] given prior) 0601 (Given - Provider: Stephany Lopez LPN)1400 (Due - Provider: Denise Carrizales [facility])2200 (Due - Provider: Denise Carrizales [facility]) acetaminophen (TYLENOL) tablet 1,000 mg (COMPLETED) 1,000 mg, Oral, ONCE, 1 dose, On Thu06/11/25 at 1800, Maximum adult dose of acetaminophen is 4000 mg from all sources in 24 hours., Dx: 1. Prophylactic measure 181 (Given - Provider: Janet Porras RN) albuterol-ipratropium (DUO-NEB) 3 mg-0.5 mg(2.5 mg base)/3 mL nebulizer solution 3 mL(Linked Group 1) 3 mL, Nebulization, 4 TIMES DAILY (RESP CARE), First dose (after last modification) on Thu06/02/25 at 0800, Until Discontinued, Administered by Respiratory Therapy. 0822 (Not Given - Provider: Clarisa Strong CRT - Reason: Patient not available)0835 (Not Given - Provider: Clarisa Strong, JEFF - Reason: Patient not available)0851 (Given - Provider: Clarisa Strong, CONTRACT PROJECT MANAGER)1104 (Given - Provider: Clarisa Strong CRT - Comment: Pt. requested tx)1601 (Given - Provider: Clarisa Strong, CONTRACT PROJECT MANAGER)2007 (Given - Provider: Kristian Arce CRT) 0900 (Given - Provider: Clarisa Strong, CONTRACT PROJECT MANAGER)1236 (Not Given - Provider: Clarisa Strong CRT - Reason: Patient not available - Comment: eating)1252 (Not Given - Provider: Clarisa Strong CRT - Reason: Patient Declined - Comment: confused, strongly refused tx.)1637 (Given - Provider: Clarisa Strong, CONTRACT PROJECT MANAGER)2053 (Given - Provider: Kristian Arce CRT) 0809 (Given - Provider: Chery Benites)1200 (Due)1600 (Due)2000 (Due) aspirin chewable tablet 81 mg 81 mg, Oral, DAILY, First dose on Thu05/30/25 at 0900, Until Discontinued, Dx: 1. 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 Resides in detention facility 0820 [...] LPN) 09 (Given - Provider: Riki Khan, RN)2100 (Due) clopidogreL (PLAVIX) tablet 75 mg 75 mg, Oral, DAILY, First dose on Thu05/30/25 at 0900, Until Discontinued, Dx: 1. 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 Other fatigue 0900 (Given - Provider: Janet Porras RN) 0942 (Given - Provider: Janet Porras RN) 0908 (Given - Provider: Riki Khan, RN) GLUCERNA Therapeutic oral supplement 1 'box' 1 'box', Oral, 3 TIMES DAILY WITH MEALS (NUTR), First dose on 06/01/25 at 1800, Until Discontinued, STRAWBERRY Administer [...] Declined) 0912 (Given - Provider: Riki Khan RN)1300 (Due)1800 (Due) insulin aspart U-100 (NovoLOG) injection 0-40 Units(Linked Group 2) 0-40 Units, Subcutaneous, 4 TIMES DAILY AT MEALTIME AND BEDTIME, First dose (after last modification) on [place] 06/04/25 at 1800, Until Discontinued, PO Diet: [...] complication, without long-term current use of insulin ([facility]) 0800 (Not Given - Provider: Janet Porras [...] Khan RN - Reason: Order parameters not met)1200 (Due)1800 (Due)2100 (Due) Insulin Calculator - FSBS (Correction Only) Input(Linked [...] Khan RN - Reason: Order parameters not met)1200 (Due)1800 (Due)2100 (Due) insulin glargine U-100 (LANTUS) injection 10 Units [...] complication, without long-term current use of insulin ([facility]) 1800 (Given - Provider: Janet Porras RN) 1811 (Given - Provider: Janet Porras RN) 1900 (Due) PRABHAKAR powder oral supplement 1 Packet 1 [...] Declined) 0912 (Given - Provider: Riki Khan RN)1800 (Due) losartan (COZAAR) tablet 100 mg 100 mg, Oral, DAILY, First dose on Thu05/30/25 at 0900, Until Discontinued, Therapeutic Interchange for Irbesartan (AVAPRO) 300mg tab , Dx: 1. 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 Hypomagnesemia 0933 (Given - Provider: Janet Porras RN)2042 (Given - Provider: Stephany Lopez LPN) 0910 (Given - Provider: Riki Khan, SANTOS)2100 (Due) magnesium sulfate in dextrose 5% infusion 1 g (COMPLETED)(Linked Group 3) 1 g, Intravenous, at 100 mL/hr, EVERY HOUR SCHEDULED, 1 dose, First dose on Thu06/10/25 at 1600, Infuse 2 x Magnesium Sulfate 1 g IVPB for a total dose of 2 g Magnesium Sulfate, Dx: 1. Hypokalemia 2. Hypomagnesemia 174 (IV Started - Provider: Janet Porras RN)184 (Stopped - Provider: Stephany Lopez LPN)184 (Stopped - Provider: Janet Porras RN) magnesium sulfate in dextrose 5% infusion 1 g (COMPLETED)(Linked Group 3) 1 g, Intravenous, at 100 mL/hr, EVERY HOUR SCHEDULED, 1 dose, First dose on Thu06/10/25 at 1700, Infuse 2 x Magnesium Sulfate 1 g IVPB for a total dose of 2 g Magnesium Sulfate, Dx: 1. Hypomagnesemia 184 (IV Started - Provider: Janet Porras RN)194 (Stopped - Provider: Stephany Lopez LPN)194 (Stopped - Provider: Stephany Lopez LPN)194 (Stopped - Provider: Janet Porras RN) metFORMIN (GLUCOPHAGE XR) ER tablet 500 mg 500 mg, Oral, 2 TIMES DAILY WITH MEALS, First dose on Thu05/30/25 at 0800, Until Discontinued, Take with food., Dx: 1. Resides in detention facility 0819 (Given - Provider: Janet Porras RN)1755 (Given - Provider: Janet Porras RN) 0933 (Given - Provider: Janet Porras RN)1757 (Given - Provider: Janet Porras RN) 0910 (Given - Provider: Riki Khan, RN)1800 (Due) metoprolol (LOPRESSOR) tablet 25 mg 25 mg, Oral, 2 TIMES DAILY, First dose on Thu05/29/25 at 2115, Until Discontinued, Preferably taken with or immediately following meals. Take consistently with relation to food., Dx: 1. Resides in detention facility 0820 (Given - Provider: Janet Porras RN)2151 (Given - Provider: Stephany Lopez LPN) 09 (Given - Provider: Janet Porras RN)2043 (Given - Provider: Stephany Lopez LPN) 09 (Given - Provider: Riki Khan RN)2099 (Due) miconazole (MICATIN) 2 % powder Topical, 2 TIMES DAILY, 84 doses, First dose on Thu06/08/25 at 1045, Last dose on Thu07/19/25 at 2100, Application site: [facility], Dx: 1. Excoriation 0836 (Given - Provider: Janet Porras RN) 30 (Given - Provider: Stephany Lopez LPN)0935 (Given - Provider: Janet Porras RN)2051 (Given - Provider: Stephany Lopez LPN) 09 (Given - Provider: Riki Khan RN)2099 (Due) nystatin (MYCOSTATIN) 100,000 unit/mL suspension 500,000 Units 500,000 Units, Oral, 4 TIMES DAILY, 56 doses, First dose on Thu06/02/25 at 1030, Last dose on Thu06/15/25 at 2100, Swish and swallow., Reason for Therapy: Infection Documented, Indication: Other, Reason: thrush, Dx: 1. Thrush 0831 (Given - Provider: Janet Porras RN)1300 (Not Given - Provider: Janet Porras RN - Reason: Patient Declined)170 (Not Given - Provider: Janet Porras RN - Reason: Patient Declined)2099 (Given - Provider: Stephany Lopez LPN) 0941 (Given - Provider: Janet Porras RN)1300 (Not Given - Provider: Janet Porras RN - Reason: Patient Declined)170 (Not Given - Provider: Janet Porras RN - Reason: Patient Declined)2041 (Given - Provider: Stephany Lopez LPN) 0918 (Given - Provider: Riki Khan RN)1300 (Due)170 (Due)2100 (Due) pantoprazole (PROTONIX) tablet 40 mg 40 mg, Oral, DAILY, First dose on Thu05/29/25 at 2200, Until Discontinued, Do not crush or chew, Dx: 1. Resides in detention facility 2151 (Given - Provider: Stephany Lopez LPN) 2042 (Given - Provider: Stephany Lopez LPN) 2099 (Due) petrolatum-zinc oxide (TRIAD) topical paste Topical, DAILY, First dose on Thu06/07/25 at 0945, Until Discontinued 0835 (Given - Provider: Janet Porras RN) 0931 (Given - Provider: Janet Porras RN) 0918 (Given - Provider: Riki Khan RN) potassium chloride (KLOR-CON) tablet 40 mEq [...] 2042 (Given - Provider: Stephany Lopez LPN) 2099 (Due) Saccharomyces boulardii (FLORASTOR) capsule 250 mg 250 [...] LPN) 0910 (Given - Provider: Riki Khan RN)2100 (Due) sodium chloride 0.9 % 250 mL IV [...] PRN, Starting on Thu06/01/25 at 2311, Until Discontinued, Wheezing, Shortness of Breath dextrose 50 % solution 25 mL 25 mL, Intravenous, PRN, Starting on Thu05/30/25 at 1723, Until Discontinued, Low blood sugar, If FSBS less than 70 mg/dl and patient cannot take orally, Check FSBS every 15 minutes and repeat 25 mL of D50 IV push and notify physician if FSBS less than 70 mg/dL VESICANT , Insulin Calculator, Dx: 1. Type 2 diabetes mellitus without complication, without long-term current use of insulin ([facility]) fluocinonide (LIDEX) 0.05 % cream Topical, 2 TIMES DAILY PRN, Starting on Thu05/30/25 at 0607, Until Discontinued, Other, skin irritation, Application site: skin irritation, Dx: 1. Resides in detention facility glucagon (GLUCAGEN) injection 1 mg(Linked Group 4) 1 mg, Intramuscular, PRN, Starting on Thu05/30/25 at 1723, Until Discontinued, Low blood sugar, If FSBS less than 70 mg/dl, patient cannot take orally and without IV access, If patient is without IV access, give Glucagon 1 mg Intramuscularly, insert IV and call physician., Insulin Calculator, Dx: 1. Type 2 diabetes mellitus without complication, without long-term current use of insulin ([facility]) HYDROcodone-acetaminophen (NORCO) 5-325 mg per tablet 1 Tablet 1 Tablet, Oral, EVERY 6 HOURS PRN, Starting on Thu05/30/25 at 0620, Until Discontinued, Pain Unrelieved by Oral Non-Opioid Therapy, Maximum adult dose of acetaminophen is 4000 mg from all sources in 24 hours., Dx: 1. Closed fracture of left femur with routine healing, unspecified fracture morphology, unspecified portion of femur, subsequent encounter 142 (Given - Provider: Janet Porras RN) 2042 (Given - Provider: Stephany Lopez LPN) melatonin tablet 5 mg 5 mg, Oral, NIGHTLY PRN, Starting on Thu05/29/25 at 1833, Until Discontinued, Sleep, Dx: 1. Resides in detention facility 2151 (Given - Provider: Stephany Lopez LPN) ondansetron (ZOFRAN) injection 4 mg(Linked Group 5) 4 mg, Intravenous, EVERY 6 HOURS PRN, Starting on Thu05/31/25 at 1259, Until Discontinued, Nausea, Dx: 1. Prophylactic measure 1416 (See Alternative - Provider: Janet Porras, SANTOS) ondansetron (ZOFRAN-ODT) disintegrating tablet 4 mg(Linked Group 5) 4 mg, Oral, EVERY 6 HOURS PRN, Starting on Thu05/31/25 at 1259, Until Discontinued, Nausea, Dissolve in mouth, Dx: 1. Prophylactic measure 1416 (Given - Provider: Janet Porras, SANTOS) petrolatum-zinc oxide (TRIAD) topical paste Topical, PRN, Starting on Thu06/07/25 at 0930, Until Discontinued, Diaper Rash polyethylene glycol (GLYCOLAX, MIRALAX) packet 17 g 17 g, Oral, DAILY PRN, Starting on Thu05/29/25 at 1833, Until Discontinued, Constipation, For constipation unrelieved by Senokot-S, Dx: 1. Resides in detention facility senna-docusate (SENOKOT-S) 8.6-50 mg per tablet 2 Tablet 2 Tablet, Oral, 2 TIMES DAILY PRN, Starting on Thu05/29/25 at 1833, Until Discontinued, Constipation, Use first for constipation, Dx: 1. Resides in detention facility sterile water injection 1 mL(Linked Group 4) 1 mL, Injection, PRN, Starting on Thu05/30/25 at 1723, Until Discontinued, Use for drug dilution, Use to dilute and administer glucagon injection, Insulin Calculator, Dx: 1. Type 2 diabetes mellitus without complication, without long-term current use of insulin ([facility]) Linked Groups Order Group 1: albuterol-ipratropium (DUO-NEB) 3 mg-0.5 mg(2.5 mg base)/3 mL nebulizer solution 3 mLJump to med 3 mL, Nebulization, 4 TIMES DAILY ([facility]P [facility]), First dose (after last modification) on Thu06/02/25 at 0800, Until Discontinued, Administered by Respiratory Therapy. And albuterol (PROVENTIL) nebulizer solution 2.5 mgJump to med 2.5 mg, Nebulization, PRN, Starting on Thu06/01/25 at 2311, Until Discontinued, Wheezing, Shortness of Breath Group 2: Insulin [...] complication, without long-term current use of insulin ([facility]) And insulin aspart U-100 (NovoLOG) injection [...] complication, without long-term current use of insulin ([facility]) Group 3: magnesium sulfate in dextrose [...] PRN, Starting on Thu05/30/25 at 1723, Until Discontinued, Low blood sugar, If FSBS less than 70 mg/dl, patient cannot take orally and without IV access, If patient is without IV access, give Glucagon 1 mg Intramuscularly, insert IV and call physician., Insulin Calculator, Dx: 1. Type 2 diabetes mellitus without complication, without long-term current use of insulin ([facility]) And sterile water injection 1 mLJump to med 1 mL, Injection, PRN, Starting on Thu05/30/25 at 1723, Until Discontinued, Use for drug dilution, Use to dilute and administer glucagon injection, Insulin Calculator, Dx: 1. Type 2 diabetes mellitus without complication, without long-term current use of insulin ([facility]CC) Group 5: ondansetron (ZOFRAN) injection 4 mgJump to med 4 mg, Intravenous, EVERY 6 HOURS PRN, Starting on Thu05/31/25 at 1259, Until Discontinued, Nausea, Dx: 1. Prophylactic measure Or ondansetron (ZOFRAN-ODT) disintegrating tablet 4 mgJump to med 4 mg, Oral, EVERY 6 HOURS PRN, Starting on Thu05/31/25 at 1259, Until Discontinued, Nausea, Dissolve in mouth, Dx: 1. Prophylactic [...] mg per tablet 2 Tablet 1 05/29/2025 DIET Count Last Ordered Date First Orde red Date 75 GM CONSISTENT CARB DIET 1 05/30/2025 Nursing Count Last Ordered Date First Orde red Date BLOOD GLUCOSE 53 06/12/2025 05/30/2025 NURSING COMMUNICATION 6 06/10/20252024 STRAIGHT CATH 1 06/07/2025 SUPERFICIAL YEAST RASH 1 06/07/2025 APPLY HEAT TO AFFECTED AREA 1 06/03/2025 APPLY DRESSING 1 05/30/2025 NOTIFY PHYSICIAN (SPECIFY) 1 05/30/2025 PERFORM POC CREATININE ISTAT TEST [address] SEQUENTIAL COMPRESSION DEVICE 1 05/30 PULSE PRESENT-FULL MEDICAL INTERVENTION 1 0 05/30/2025 WEIGHT BEARING TOLERATED 1 05/30/2025 ACTIVITY TOLERATED: PROGR ESSIVE, ACCORDING TO MOBILITY SCORING GUID 1 05/29/2025 MEASURE WEIGHT 1 05/29/2025 PATIENT MAY SHOWER 1 05/29/2025 PREVENTION- ALTERATION OF SKIN INTEGRITY 1 05/29/2025 TURN PATIENT 1 05/29/2025 VITAL SIGNS 1 05/29/2025 Consult Count Last Ordered Date First Orde red Date Inpatient consult to wound c are for:Pressure injury; sacrum coccyx 1 05/29/2025 IP CONSULT TO NUTRITION 2 05/29/2025 OT Count Last Ordered Date First Orde red Date OT PLAN OF CARE CERTIFICATION 1 05/30/2025 IP CONSULT TO OCCUPATIONAL THERAPY 1 2024 ONGOING OCCUPATIONAL THERAPY PER PLAN OF CARE 1 05/29/2025 PT Count Last Ordered Date First Orde red Date PT PLAN OF CARE CERTIFICATION 1 05/30/2025 IP CONSULT TO PHYSICAL THERAPY 1 05/29/2025 ONGOING PHYSICAL THERAPY PER PLAN OF CARE 1 05/29/2025 Respiratory Care Count Last Ordered Date First Ordered Date OXYGEN THERAPY 28 06/12/2025 05/29/2025 RESPIRATORY MEDICATION(S) BY KAILEYN 44 06/12/20 25 06/01/2025 RC ASSESSMENT 15 06/11/2025 05/29/2025 VIBRATORY PEP 1 05/29/2025 ASSOCIATE VICE PRESIDENT Count Last Ordered Date First Orde red Date IP CONSULT TO SPEECH THERAPY 1 06/05/2025 ONGOING SPEECH THERAPY PER PLAN OF CARE 1 1 Admission Count Last Ordered Date First Orde red Date ADMIT 1 05/29/2025 Discharge Count Last Ordered Date First Orde red Date DISCHARGE PATIENT 1 06/12/2025 Precaution Count Last Ordered Date First Orde red Date SKIN CARE PRECAUTIONS 1 05/29/2025 documented in this encounter
--- NOTE | 2025-06-12 13:09 | XR_ITS ---
FINAL REPORT CLINICAL HISTORY: left hip fx FINDINGS: An AP view of the pelvis and a frog leg view of the left hip were obtained. There is no prior exam for comparison. 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 The hardware appears intact. No evidence of complication. There is no dislocation. 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 Surgical skin everton are again noted. IMPRESSION: Postoperative and degenerative changes without acute osseous abnormality of the left hip. Reviewed, Interpreted and Dictated by Prudence Osborne MD Transcribed by Katya Holt Authenticated and [facility]
--- OUTSIDE RECORDS SUMMARY | 2025-06-12 13:12 | XMS_ITS | Clinical Summary ---
Author Organization [facility] Address [address] [place] [address] Phone Care Team Providers Care Opener Name Role Phone Unavailable Primary Care Provider Unavailabl e Allergies Active Allergy Reactions Criticality Noted Date Comments Altocor Diarrhea 05/29/2025 Moxifloxacin Diarrhea,Itching 05/29/2025 Clarithromycin Itching,Nausea Only,Other (See Comments) 05/29/2025 Restless sleep Cold sweat Brompheniramine Hives 05/29/2025 Cefaclor Hives 05/29/2025 Ciprofloxacin Diarrhea Low 05/29/2025 Dexamethasone Hives 05/29/2025 Hydrochlorothiazide Other (See Comments) 2024 Shaking chills and pain in back Canagliflozin Nausea Only 05/29/2025 Cephalexin Nausea And Vomiting 05/29/2025 Triamcinolone Acetonide Other (See Comments) Patient unsure Levofloxacin Palpitations 05/29/2025 Bupivacaine Other (See Comments) 05/29/2025 Patient unsure Nitrofurantoin Nausea And Vomiting 05/29/2025 Penicillin Swelling 05/29/2025 Tuberculin Ppd Other (See Comments) High 05/30/2025 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 Medications rosuvastatin (CRESTOR) 5 mg Oral Tablet Take 5 mg by mouth nightly. Active aspirin 81 mg Oral Tablet, Chewable Take 81 mg by mouth daily. Active cholecalciferol , vitamin D3, 25 mcg (1,000 unit) Oral Tablet Take 1,000 Units by mouth daily. Active albuterol sulfate (VENTOLIN INHL) Inhale 4 Puffs into the lungs daily. Active clopidogreL (PLAVIX) 75 mg Oral Tablet Take 75 mg by mouth daily. Active HYDROcodone-don taminophen (NORCO) 5-325 mg Oral Tablet Take 1 Tablet by mouth every 4 hours as needed for Acute Pain (R52). Active albuterol-iprat ropium (DUO-NEB) 3 mg-0.5 mg(2.5 mg base)/3 mL Inhl Solution for Nebulization Take 3 mL by nebulization every 6 hours. Active irbesartan (AVAPRO) 300 mg Oral Tablet Take 300 mg by mouth daily. Active metoprolol (LOPRESSOR) 25 mg Oral TabletIndicatio ns:hypertension Take 25 mg by mouth 2 times daily. Indications: high blood pressure Active pantoprazole (PROTONIX) 40 mg Oral Tablet, Delayed Release (E.C.)Indicatio ns:heartburn Take 40 mg by mouth daily. Indications: heartburn Active citalopram (CELEXA) 10 mg Oral TabletIndicatio ns:major depressive disorder Take 5 mg by mouth 2 times daily. Indications: major depressive disorder Active metFORMIN (GLUCOPHAGE XR) 500 mg Oral ER 24 hr tabletIndicatio ns:type 2 diabetes mellitus Take 1 Tablet by mouth 2 times daily (with meals). Indications: type 2 diabetes mellitus 60 Tablet Active insulin glargine U-100 (LANTUS) 100 unit/mL SubQ SolutionIndicat ions:Type 2 diabetes mellitus without complication, without long-term current use of insulin (HCC) Inject 10 Units under the skin every evening. 10 mL 025 Active magnesium oxide (MAG-OX) 400 mg (241.3 mg magnesium) Oral TabletIndicatio ns:Hypomagnesem ia Take 1 Tablet by mouth 2 times daily. 60 Tablet 025 Active melatonin 5 mg Oral TabletIndicatio ns:Resides in halfway facility Take 1 Tablet by mouth nightly as needed for Sleep. 025 Active Saccharomyces boulardii (FLORASTOR) 250 mg Oral CapsuleIndicati ons:Resides in halfway facility Take 1 Capsule by mouth 2 times daily. 60 Capsule Active cyanocobalamin 1,000 mcg/mL Inj SolutionIndicat ions:Other fatigue Inject 1 mL into the muscle every 30 days. 1 mL 025 Active amLODIPine-vals alisha (EXFORGE) 10-320 mg Oral Tablet Take 1 Tablet by mouth daily. 2024 Discontinued(A lternate therapy) trimethoprim (TRIMPEX) 100 mg Oral TabletIndicatio ns:prevention of bacterial urinary tract infection Take 1 Tablet by mouth daily. Indications: urinary tract infection prevention 2024 Discontinued(A vailability) metoprolol (LOPRESSOR) 100 mg Oral Tablet Take 100 mg by mouth 2 times daily. 2024 Discontinued(C ancelled by ) omeprazole (PRILOSEC) 40 mg Oral Capsule, Delayed Release(E.C.) Take 40 mg by mouth daily. 2024 Discontinued(C ancelled by ) glyBURIDE (DIABETA) 5 mg Oral Tablet Take 5 mg by mouth 4 times daily. 2024 Discontinued(C ancelled by ) metFORMIN (GLUCOPHAGE XR) 500 mg Oral ER 24 hr tablet Take 1,000 mg by mouth 2 times daily (with meals). 2024 Discontinued(S top Taking at Discharge) levoFLOXacin (LEVAQUIN) 750 mg Oral TabletIndicatio ns:bacterial pneumonia Take 750 mg by mouth every other day. Take every 48 hours Indications: pneumonia caused by bacteria 2024 Discontinued(S top Taking at Discharge) cyanocobalamin 1,000 mcg/mL Inj SolutionIndicat ions:Other fatigue Inject 1 mL into the muscle daily. 10 mL 025 2024 Discontinued Active Problems Problem Noted Date Diagnosed Date Hypokalemia 06/10/2025 Assessment & Plan (06/10/2025 3:36 PM EDT): K 3.2 Replete and recheck Trend Hypomagnesemia 06/10/2025 Assessment & Plan (06/10/2025 3:36 PM EDT): Mg 1.3 Replete and recheck Shortness of breath 06/10/2025 Assessment & Plan (06/10/2025 5:21 PM EDT): Patient reports feeling SOB to daughter 06/10 in am Daughter concerned for PNA CXR 06/10 no acute findings. Lactic elevated 2.1>32. 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 05/30/2025 Assessment & Plan (06/10/2025 3:36 PM EDT): -No chest pain 06/03 -Continue ASA, statin, BB Assessment & Plan (06/03/2025 3:43 PM EDT): -No chest pain 06/03 -Continue ASA, statin, BB Adrenal adenoma, left 05/30/2025 Assessment & Plan (06/10/2025 3:36 PM EDT): -Stable Assessment & Plan (06/03/2025 3:43 PM EDT): -Stable Left renal mass 05/30/2025 Assessment & Plan (06/10/2025 3:36 PM EDT): -Noted patient refused further workup/imaging at this time Assessment & Plan (06/03/2025 3:43 PM EDT): -Noted patient refused further workup/imaging at this time Left lower lobe pulmonary nodule 05/30/2025 Assessment & Plan (06/10/2025 3:36 PM EDT): -Repeat CT 6-12 months outpatient Assessment & Plan (06/03/2025 3:43 PM EDT): -Repeat CT 6-12 months outpatient Fractured hip, left, closed, initial encounter 0 05/29/2025 Assessment & Plan (06/10/2025 5:21 PM EDT): -s/p surgery 05/26 for left hip fracture -Asked to evaluated 10 d/t increased pain L hip this AM -D/w patient - notes that she just received a dose of tylenol and is feeling much better. She reports prior bad experience with narcotics and prefers to avoid. Typically avoids NSAIDs d/t GI side effects when she takes. -Continue tylenol. Add heating pad prn. Assessment & Plan (06/03/2025 3:43 PM EDT): -s/p surgery -Asked to evaluated 10 d/t increased pain L hip this AM [...] lidocaine patch. Patient agreeable with this plan Encounters Date Type Department Care Team Description 05/29/2025 5:44 PM EDT - 06/12/2025 11:24 AM EDT Hospital Encounter [facility] [address] [place] [phone] Hugh Zamarripa MD Coronary artery disease involving miccosukee coronary artery of miccosukee heart without angina pectoris (Primary Dx); Resides in halfway facility; Pneumonia due to infectious organism, unspecified [...] increased Discharge Disposition: Home or Self Care from Last 3 Months Immunizations Immunization Administration Dates Next Due Influenza High Dose 05/31/2025 PPD Test 05/29/2025(Deferred: Other - patient reported prior hx of reaction to Tb sin test, swelling and redness . Will inform Physician at rounds.) Surgical History Surgery Date Site/Laterality Comments CATARACT [...] Mass Index 24.84 05/29/2025 6:01 PM EDT Plan of Treatment Health Maintenance Due Date Last Done Comments Wellness Exam Medicare 11/22/1943 Lipids 1950 Diabetic Eye Exam 1958 Hemoglobin A1c 1958 Kidney Health: uACR 1958 Zoster (1 of 2) 1990 DTaP/TDaP/Td (1 - Tdap) 11/04/1996 11/03/1996 Bone Density Screening 2005 RSV or 60+ (1 - 1-dose 75+ series) 11/22/2015 COVID-19 Vaccine ( season) 2025 Kidney Health: eGFR 06/12/2026 06/12/2025, 06/11/2025, 06/10/2025, Additional history exists Pneumococcal Vaccine 50+ Completed 023, 05/14/2016, 06/15/2013 Influenza Vaccine Completed 05/31/2025, , 05/10/2020, Additional history exists Hepatitis B Vaccine Aged Out No longe r eligible based on patient's age to complete this topic Meningococcal B Vaccine Aged Out No l onger eligible based on patient's age to complete this topic Procedures Procedure Name Priority Date/Time Associated Diagnosis Comments GLUCOSE METER POC Routine 06/12/2025 8:13 AM EDT MAGNESIUM LEVEL Early AM 06/12/2025 5:33 AM EDT CBC Early AM 06/12/2025 5:33 AM EDT BASIC METABOLIC PANEL Early AM 06/12/2025 5:33 AM EDT GLUCOSE METER POC Routine 06/11/2025 8:58 PM EDT GLUCOSE METER POC Routine 06/11/2025 4:59 PM EDT GLUCOSE METER POC Routine 06/11/2025 12:16 PM EDT GLUCOSE METER POC Routine 06/11/2025 7:59 AM EDT EXTRA LAVENDER Routine 06/11/2025 6:17 AM EDT EXTRA TUBES PANEL Routine 06/11/2025 6:17 AM EDT MAGNESIUM LEVEL Early AM 06/11/2025 6:17 AM EDT BASIC METABOLIC PANEL Early AM 06/11/2025 6:17 AM EDT REPEAT LACTIC ACID STAT 06/11/2025 6:17 AM EDT REPEAT LACTIC ACID STAT 06/10/2025 11:20 PM EDT REPEAT LACTIC ACID STAT 06/10/2025 8:14 PM EDT BLOOD CULTURE (NO STAIN) Routine 06/10/2025 5:21 PM EDT BLOOD CULTURE (NO STAIN) Routine 06/10/2025 5:21 PM EDT GLUCOSE METER POC Routine 06/10/2025 4:58 PM EDT REPEAT LACTIC ACID STAT 06/10/2025 2:18 PM EDT GLUCOSE METER POC Routine 06/10/2025 11:59 AM EDT MAGNESIUM LEVEL Add-On 06/10/2025 11:52 AM EDT PROCALCITONIN Routine 06/10/2025 11:52 AM EDT LACTIC ACID Routine 06/10/2025 11:52 AM EDT CBC Routine 06/10/2025 11:52 AM EDT BASIC METABOLIC [...] TO CULTURE Routine 06/07/2025 8:48 PM EDT URINE CULTURE (NO STAIN) Routine 06/07/2025 8:48 PM EDT EXTRA LAGU[place]IN URINE CX Routine 06/07/2025 8:48 PM EDT GLUCOSE METER [...] METER POC Routine 06/06/2025 7:53 AM EDT BASIC METABOLIC PANEL Early AM 06/06/2025 5:26 AM EDT CBC WITH DIFF Early AM 06/06/2025 5:26 AM EDT GLUCOSE [...] METER POC Routine 05/29/2025 9:25 PM EDT ADMIT Routine 05/29/2025 6:37 PM EDT IP CONSULT TO NUTRITION Routine 05/29/2025 6:37 PM EDT IP CONSULT TO WOUND CARE [...] TO NUTRITION Routine 05/29/2025 6:37 PM EDT from Last 3 Months Results * (ABNORMAL) GLUCOSE METER POC (06/12/2025 8:13 AM EDT) Only the most recent of52 resultswithin the time period is included. Glucose Meter POC 125(H) 70 - 100 mg/dL 06/12/2025 8:14 AM EDT [facility] Sample Type Capillary 06/12/2025 8:14 AM EDT [facility] Patient Status Non-Critical Patient 06/12/2025 8:14 AM EDT [facility] Blood BLOOD SPECIMEN / Unknown 06/12/2025 8:13 AM EDT 06/12/2025 8:14 AM EDT Hugh Zamarripa MD POINT OF CARE TEST ORDER PEDRO LUIS Final Result [facility] [address] [id number] * (ABNORMAL) CBC (06/12/2025 5:33 AM EDT) Only the most recent of2 resultswithin the time period is included. WBC 7.9 3.7 - 10.3 x10(3)/mcL 06/12/2025 5:36 AM EDT [facility] RBC 3.76(L) 3.90 - 5.20 x10(6)/mcL 06/12/2025 5:36 AM EDT [facility] Hgb 11.3 11.2 - 15.7 g/dL 06/12/2025 5:36 AM EDT [facility] Hct 35.6 34.0 - 45.0 % 06/12/2025 5:36 AM EDT [facility] MCV 94.7 80.0 - 100.0 fL 06/12/2025 5:36 AM EDT [facility] MCH 30.1 26.0 - 34.0 pg 06/12/2025 5:36 AM EDT [facility] MCHC 31.7 30.7 - 35.5 g/dL 06/12/2025 5:36 AM EDT [facility] RDW 13.0 <=14.9 % 06/12/2025 5:36 AM EDT [facility] Platelet 366 155 - 369 x10(3)/mcL 06/12/2025 5:36 AM EDT [facility] MPV 8.8 8.8 - 12.5 fL 06/12/2025 5:36 AM EDT [facility] Blood VENOUS BLOOD / Unknown Venipuncture / Unknown 06/12/2025 5:33 AM EDT 06/12/2025 5:33 AM EDT Jennifer Fontana APRN HEMATOLOGY ORDERABLES Fi nal Result Performing Organization Address [facility] de Phone Number [facility] [address] [place] [address] * MAGNESIUM LEVEL (06/12/2025 5:33 AM EDT) Only the most recent of3 resultswithin the time period is included. Magnesium 1.7 1.6 - 2.4 mg/dL 06/12/2025 5:55 AM EDT [facility] Blood VENOUS BLOOD / Unknown Venipuncture / Unknown 06/12/2025 5:33 AM EDT 06/12/2025 5:33 AM EDT Jennifer Fontana APRN CHEMISTRY ORDERABLES Fin al Result Performing Organization Address [facility] Co de Phone Number [facility] [address] [place] [address] * (ABNORMAL) BASIC METABOLIC PANEL (06/12/2025 5:33 AM EDT) Only the most recent of6 resultswithin the time period is included. Sodium 144 136 - 145 mmol/L 06/12/2025 5:55 AM EDT [facility] Potassium 4.0 3.5 - 5.0 mmol/L 06/12/2025 5:55 AM EDT [facility] Chloride 108(H) 98 - 107 mmol/L 06/12/2025 5:55 AM EDT [facility] Total CO2 27 22 - 29 mmol/L 06/12/2025 5:55 AM EDT [facility] Anion Gap 9 7 - 16 mmol/L 06/12/2025 5:55 AM EDT [facility] Calcium 8.5(L) 8.8 - 10.4 mg/dL 06/12/2025 5:55 AM EDT [facility] Glucose Lvl 137(H) 70 - 99 mg/dL 06/12/2025 5:55 AM EDT [facility] BUN 14 8 - 23 mg/dL 06/12/2025 5:55 AM EDT [facility] Creatinine 0.64 0.51 - 1.30 mg/dL 06/12/2025 5:55 AM EDT [facility] eGFR (CKD-EPIcr 2020) 86 >=60 mL/min/1.7 3 m2 06/12/2025 5:55 AM T [facility] Comment:Estimated GFR was ca lculated using the CKD-EPIcr (2020) equation refit without race. The equation is recommended by the [employer] Kid[employer] - [place] [employer]ph[employer] Task Force. Blood VENOUS BLOOD / Unknown Venipuncture / Unknown 06/12/2025 5:33 AM EDT 06/12/2025 5:33 AM EDT us Jennifer Fontana APRN CHEMISTRY ORDERABLES Fin al Result Performing Organization Address City/[facility]/ZIP Co de Phone Number [facility] [address] [place] [address] * EXTRA LAVENDER (06/11/2025 6:17 AM EDT) Blood VENOUS BLOOD / Unknown Venipuncture / Unknown 06/11/2025 6:17 AM EDT 06/11/2025 9:04 AM EDT Hugh Zamarripa MD HEMATOLOGY ORDERABLES Fi nal Result Performing Organization Address City/[facility]/ZIP Co de Phone Number [facility] [address] [place] [address] * REPEAT LACTIC ACID (06/11/2025 6:17 AM EDT) Only the most recent of4 resultswithin the time period is included. Lactic Acid 1.9 0.5 - 1.9 mmol/L 06/11/2025 6:31 AM EDT [facility] Blood VENOUS BLOOD / Unknown Venipuncture / Unknown 06/11/2025 6:17 AM EDT 06/11/2025 6:17 AM EDT Hugh Zamarripa MD CHEMISTRY ORDERABLES Fin al Result [facility] [address] [place] [address] * PROCALCITONIN (06/10/2025 11:52 AM EDT) Pathologist [facility] Procalcitonin 0.08 <=0.49 ng/mL 06/10/2025 7:35 PM EDT [facility] Blood VENOUS BLOOD / Unknown Venipuncture / Unknown 06/10/2025 11:52 AM EDT 06/10/2025 12:00 PM EDT Narrative [email or web address] - 06/10/2025 7:35 PM EDT Procalcitonin <0.50 [...] APRN CHEMISTRY ORDERABLES Fin al Result [facility] [address] [place] [address], [place] [address] * (ABNORMAL) LACTIC ACID (06/10/2025 11:52 AM EDT) Lactic Acid 2.1(H) 0.5 - 1.9 mmol/L 06/10/2025 12:13 PM EDT [facility] Blood VENOUS BLOOD / Unknown Venipuncture / Unknown 06/10/2025 11:52 AM EDT 06/10/2025 12:00 PM EDT Jennifer Fontana APRN CHEMISTRY ORDERABLES Fin al Result Performing Organization Address [facility] Co de Phone Number [facility] [address] [place] [address] * XR CHEST AP PORTABLE (06/10/2025 11:38 [...] IMAGING O RDERABLES Final Result * (ABNORMAL) URINALYSIS REFLEX (06/07/2025 8:48 PM EDT) UA Color Yellow 06/07/2025 9:08 PM EDT [facility] UA Appear Clear Clear 06/07/2025 9:08 PM EDT [facility] UA Glucose Negative Negative mg/dL 06/07/2025 9:08 PM EDT [facility] UA Ketones Negative Negative mg/dL 06/07/2025 9:08 PM EDT [facility] UA Blood Negative Negative 06/07/2025 9:08 PM EDT [facility] UA pH 6.0 5.0 - 8.0 pH 06/07/2025 9:08 PM [facility] LAB[facility] UA Protein Trace(A) Negative mg/dL 06/07/2025 9:08 PM EDT [facility] UA Urobilinogen 0.2 <=1 mg/dL 9:08 PM ED[facility]ATRIC LABORATORY UA Bili Negative Negative 06/07/2025 9:08 PM EDT [facility] UA Nitrite Negative Negative 06/07/2025 9:08 PM [facility] LAB[facility] UA Leuk Est Small(A) Negative 06/07/2025 9:08 PM [facility] UA Spec Grav 1.025 1.001 - 1.035 no units 06/07/2025 9:08 PM [facility] Comment:Reference range tessie d for random specimens only. UA WBC 10(H) 0 - 4 /HPF 06/07/2025 9:08 PM EDT [facility] UA RBC 0 0 - 3 /HPF 06/07/2025 9:08 PM EDT [facility] UA Squam Epi 2+ /LPF 06/07/2025 9:08 PM EDT [facility] UA Mucus 2+ /LPF 06/07/2025 9:08 PM EDT [facility] UA Amorph 1+ /HPF 06/07/2025 9:08 PM EDT [facility] UA Bacteria Trace(A) Negative /HPF 06/07/2025 9:08 PM EDT [facility] Urine STRUCTURE OF URINARY TRACT PROPER / Unknown 06/07/2025 8:48 PM EDT 06/07/2025 8:59 PM EDT us Viral Sargent V, DO URINE ORDERABLES Final Result Performing Organization Address [facility] Co de Phone Number [facility] [address] [place] [address] * EXTRA [place] URINE CX (06/07/2025 8:48 PM EDT) Urine STRUCTURE OF URINARY TRACT PROPER / Unknown 06/07/2025 8:48 PM EDT 06/07/2025 8:59 PM EDT us Viral Sargent V, DO MICROBIOLOGY - GENERAL ORDERAB LES Final Result Performing Organization Address [facility] Co de Phone Number [facility] [address] [place] [address] * (ABNORMAL) URINE CULTURE (NO STAIN) (06/07/2025 8:48 PM EDT) Culture Positive Growth(A) 06/10/2025 1:16 PM EDT [facility] Culture >100,000 CFU/mL Lactobacillus species SUSCEPTIB ILITY RESULT 06/10/2025 1:16 PM EDT [facility] Comment:No further workup. Culture 4,000 CFU/mL Ashley albicans SUSCEPTIB ILITY RESULT 06/10/2025 1:16 PM EDT [facility] Comment:No further workup. Urine STRUCTURE OF URINARY TRACT PROPER / Unknown 06/07/2025 8:48 PM EDT 06/07/2025 9:08 PM EDT us Viral Sargent V, DO MICROBIOLOGY - GENERAL ORDERAB LES Final Result [email or web address] [address] [facility] , [place] [address] * XR HIP LEFT AP LATERAL W [...] CBC WITH DIFF (06/07/2025 5:09 AM EDT) Only the most recent of3 resultswithin the time period is included. WBC 11.3(H) 3.7 - 10.3 x10(3)/mcL 06/07/2025 5:11 AM [facility] RBC 3.92 3.90 - 5.20 x10(6)/mcL 06/07/2025 5:11 AM [facility] Hgb 11.8 11.2 - 15.7 g/dL 06/07/2025 5:11 AM [facility] Hct 36.3 34.0 - 45.0 % 06/07/2025 5:11 AM [facility] MCV 92.6 80.0 - 100.0 fL 06/07/2025 5:11 AM [facility] MCH 30.1 26.0 - 34.0 pg 06/07/2025 5:11 AM [facility] MCHC 32.5 30.7 - 35.5 g/dL 06/07/2025 5:11 AM [facility] RDW 12.5 <=14.9 % 06/07/2025 5:11 AM [facility] Platelet 341 155 - 369 x10(3)/mcL 06/07/2025 5:11 AM [facility] MPV 9.0 8.8 - 12.5 fL 06/07/2025 5:11 AM [facility] Neut Percent 79.0 % 06/07/2025 5:11 AM [facility] Comment:Neutrophils equals s egs plus bands Imm Gran% 0.4 % 06/07/2025 5:11 AM [facility] Comment:Automated count of m etamyelocytes, myelocytes and promyelocytes. Lymph Percent 11.7 % 06/07/2025 5:11 AM [facility] Dorado Percent 6.9 % 06/07/2025 5:11 AM [facility] Eos Percent 1.5 % 06/07/2025 5:11 AM [facility] Baso Percent 0.5 % 06/07/2025 5:11 AM [facility] Neut # 8.9(H) 1.6 - 6.1 x10(3)/mcL 06/07/2025 5:11 AM [facility] Comment:Neutrophils equals s egs plus bands IMMGRAN# 0.0 0.0 - 0.1 x10(3)/mcL 06/07/2025 5:11 AM EDT [facility] Comment:Automated count of m etamyelocytes, myelocytes and promyelocytes. An absolute IG <0.1 is reported as 0.0. Lymph # 1.3 1.2 - 3.9 x10(3)/mcL 06/07/2025 5:11 AM EDT [facility] Dorado # 0.8 0.3 - 0.9 x10(3)/mcL 06/07/2025 5:11 AM EDT [facility] Eos# 0.2 0.0 - 0.5 x10(3)/mcL 06/07/2025 5:11 AM EDT [facility] Baso # 0.1 0.0 - 0.1 x10(3)/mcL 06/07/2025 5:11 AM EDT [facility] Blood VENOUS BLOOD / Unknown Venipuncture / Unknown 06/07/2025 5:09 AM EDT 06/07/2025 5:09 AM EDT us Viral Sargent V, DO HEMATOLOGY ORDERABLES Final Re sult [facility] [address] [place] [address] * PARTIAL THROMBOPLASTIN TIME (05/31/2025 4:43 PM EDT) [facility] PTT 31.8 25.7 - 36.8 second(s) 05/31/2025 4:58 PM EDT [facility] Comment: Therapeutic range for [...] ORDERABLES Fi nal Result Performing Organization Address [facility] de Phone Number [facility] [address] [place] [address] * (ABNORMAL) PT / INR (05/31/2025 4:43 PM EDT) PT 13.7(H) 10.5 - 13.6 second(s) 05/31/2025 4:58 PM EDT [facility] INR 1.19(H) 0.91 - 1.18 (ratio) 05/31/2025 4:58 PM EDT [facility] Comment: Level of Therapy Indications Target INR Range Standard Dose Treatment and prophylaxis of venous 2.0 - 3.0 thrombosis, pulmonary embolism High Dose High risk patients with mechanical 2.5 - 3.5 heart valves Blood VENOUS BLOOD / Unknown Venipuncture / Unknown 05/31/2025 4:43 PM EDT 05/31/2025 4:47 PM EDT Hugh Zamarripa MD HEMATOLOGY ORDERABLES Fi nal Result Performing Organization Address [facility] de Phone Number [facility] [address] [place], [place] [id number] * CT ABDOMEN PELVIS HEMATURIA/RENAL MASS PROTOCOL [...] of the ordering clinician. Hugh Zamarripa MD [facility] CT ORDERABLES Final Result * CREATININE ISTAT (05/30/2025 1:26 PM EDT) Creatinine-iST AT 0.9 0.6 - 1.3 mg/dL 05/30/2025 1:28 PM EDT [facility] Blood BLOOD SPECIMEN / Unknown 05/30/2025 1:26 PM EDT 05/30/2025 1:28 PM EDT Hugh Zamarripa MD POINT OF CARE TEST ORDER PEDRO LUIS Final Result [facility] [address] [place] [address] from Last 3 Months Insurance [place] Member Subscriber Plan / Payer (Ef fective 2005-Present) Name:Patricia Hills Relation to Subscriber:Self Name:Patrciia Hills Payer ID:Not on file Group ID:Not on file Type:Not on file Address: O [address] DUAL ADVANTAGE [facility] [place] [id number] [employer] DUAL [employer] O [facility] MEDICAID [place] Advance Directives For more information, please contact: [phone] * Full Code (Latest Code Status on File) Date Activated Date Inactivated Comments 05/30/2025 6:09 AM
--- OUTSIDE RECORDS SUMMARY | 2025-06-12 13:13 | XMS_ITS | Encounter Summary ---
Author Organization Healthcare Address [address] [place] [address] Care Team Providers Care Sales Correspondence Clerk Name Role Phone Pcp, No Primary Care Provider Unavailabl e Encounter Details Date Type Department Care Team (Late st Contact Info) Description 05/12/2024 Orders Only External Location [address] [place] [address] Charlotte Jung, [address] [place] [address] Social History Tobacco Use Types [...] on filedocumented in this encounter Care Teams Sales Correspondence Clerk Relationship Specialty Start Date End Date Pcp, No [address] [place] [address] PCP - General Family Medicine 08/10/24 documented as of this encounter
--- OUTSIDE RECORDS SUMMARY | 2025-06-12 13:13 | XMS_ITS | Encounter Summary ---
Author Organization Healthcare Address [address] [place] [address] Care Team Providers Care Cardroom Worker Name Role Phone Pcp, No Primary Care Provider Unavailabl e Encounter Details Date Type Department Care Team (Late st Contact Info) Description 05/12/2024 Orders Only External Location [address] [place] [address] Charlotte Jung, [address] [place] [address] Social History Tobacco Use Types [...] on filedocumented in this encounter Care Teams Cardroom Worker Relationship Specialty Start Date End Date Pcp, No [address] [place] [address] PCP - General Family Medicine 08/10/24 documented as of this encounter
--- OUTSIDE RECORDS SUMMARY | 2025-06-12 13:13 | XMS_ITS | Data Portability ---
Author Organization [facility] CLOSED Address [address] [facility] [place] [address] Care Team Providers Care Tool Crib Manager Name Role Phone ALETHA ROBERTSON Assistant Pastry Chef SEN REICH JR General Surgeon MOOKIE PEREZ [...] arter y No observ ation record ed. [email or web address] [address], [place], [address], 06/21/2024 11:05:07 Result Notes None recorded. Problems Name Problem SNOMED Code Status Onset Date Resolution Date Notes Provider Name and Address Organization Details Recorded Time Left carotid artery stenosis 3896520454527 03 Active 2023 SEN REICH JR, MD [address] [place] [address], [phone], 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 13:00:58 Tobacco dependence syndrome 89265817 Active 2023 SEN REICH JR, MD [address] [place] [address], [address], [facility] 13:01:13 Arthritis 9183190 Active 2023 Cecille Stephanie [facility] 13:17:13 Hyperlipide alfonso 05699007 Active 2023 Cecille Stephanie [facility] 13:17:27 Type 2 diabetes mellitus 48254670 Active 2023 [place] Stephanie [facility] 13:20:26 Nodule of lung 653187682 Active 2023 Cecille Stephanie [facility] 13:22:04 Calcificati on of coronary artery 628260338 Active 2023 [place] Stephanie [facility] 13:22:35 Vitamin D deficiency 91665539 Active 2023 Cecille Stephanie [facility] 13:22:53 Hypertensiv e disorder 87348998 Active 2023 Cecille Stephanie [facility] 13:23:11 Notes:thyroid nodule Problem Notes None recorded. Procedures Surgical History Date Name Laterality Status Provider Name and Address Organization Details Recorded Time Cholecystectomy completed Cecille Stephanie [facility] 06/09/2024 13:16:44 Imaging Results None recorded. Procedure Notes None recorded. Medical Equipment None Reported. Allergies Allergen ID Allergen Name Allergen Category Reaction Reaction Severity Criticality Documentation Date Start Date Code Code System Note Provider Name and Address Organization Details Recorded Time 475480 Altocor medicatio n Not available Not available Not available 06/09/2024 15836 0 RxNorm Cecille Brown [facility] 11:57:40 042832 Product containin g penicilli n (product) medicatio n Not available Not available Not available 06/09/2024 41184 8001 SNOMED [facility] 11:57:51 899399 Lescol medicatio n Not available Not available Not available 06/09/2024 35017 2 RxNorm [facility] 11:58:33 161310 Cipro medicatio n Not available Not available Not available 06/09/202468017 3 RxNorm Cecillecruzito Brown null, [facility] 4 11:58:41 642856 Levaquin medicatio n Not available Not available Not available 06/09/2024 36428 2 RxNorm [facility] 11:58:52 203207 Medicinal product containin g nitrofura n derivativ e and acting as antibacte rial agent (product) medicatio n Not available Not available Not available 06/09/2024 40648 2000 SNOMED [facility] 12:28:38 617498 nitrofura ntoin medicatio n Not available Not available Not available 06/09/2024 7454 RxNorm [facility] 12:00:55 796470 Macrobid medicatio n Not available Not available Not available 06/09/2024 34178 1 RxNorm [facility] 12:01:01 731002 Avelox medicatio n Not available Not available Not available 06/09/2024 61188 6 RxNorm [facility]cruzito [facility] 4 12:01:10 251763 Ceclor medicatio n Not available Not available Not available 06/09/202473824 5 RxNorm [facility]cruzito [facility] 12:01:20 354327 clarithro mycin medicatio n Not available Not available Not available 06/09/202477275 RxNorm [facility] 12:02:53 458878 Marcaine medicatio n Not available Not available Not available 06/09/2024 16823 97 RxNorm [facility] 12:03:30 962634 Kenalog medicatio n Not available Not available Not available 06/09/2024 7 RxNorm [facility] 12:03:41 242261 Biaxin medicatio n Not available Not available Not available 06/09/2024 9 RxNorm [facility] 12:04:25 079923 Invokana medicatio n Not available Not available Not available 06/09/2024 49500 64 RxNorm [facility] 12:06:11 122840 Keflex medicatio n Not available Not available Not available 06/09/202402842 7 RxNorm [facility] 12:06:44 546568 hydrochlo rothiazid e medicatio n Not available Not available Not available 06/09/2024 5487 RxNorm [facility] 12:07:37 965803 dexametha sone medicatio n Not available Not available Not available 06/09/2024 3264 RxNorm [facility] 12:08:02 897051 erythromy sumaya medicatio n Not available Not available Not available 06/09/2024 4053 RxNorm [facility] 12:08:29 428092 brompheni ramine Not available Not available Not available Not available 06/09/2024 1767 RxNorm [facility] 12:29:50 Medications Name Sig Start Date [...] Date Recorded Body height Heart rate Systolic And Diastolic Provider Name and Address Organization Details Last Updated DateTime 06/09/2024 157.48 cm 68 /min 128/69 mm[Hg] [facility] 06/09/2024 12:16:41 Social History None recorded. Functional [...] Diagnosis/Indication Diagnosis SNOMED-CT Code Diagnosis ICD10 Code Diagnosis IMO Codes Diagnosis Note [id number] SEN REICH JR, MD GENERAL SURGERY [address] [place] [address] 06/09/2024 11:28:36 06/10/2024 10:23:50 Left carotid artery stenosis 9049521496 40517 I65.22 Asymptomat ic left carotid artery stenosis. Check carotid duplex scan.Jose Francisco nue aspirin PlavixCaro tid duplex scan at [facility] shows mild stenosis right and 50-69% stenosis left internal carotid artery. Repeat carotid duplex scan 6 months. Neoplasm o f parotid gland 312858527 D49.0 Benign on fine-needl e aspiration Tobacco de pendence syndrome 50497164 F17.200 Needs cessation Health Concerns Section Related Observation LastModified by Organization Detai ls LastModified Time None Recorded Concern Status LastModified by Organization Details LastModified Time None Recorded Advance Directives Directive None Recorded Payers Insurance Date Sequence Insurance Name Policy Number Policy Richards Covered Member ID Richards Member ID Guarantor Name 06/10/2024 1 [employer] (MEDICARE REPLACEMENT/ ADVANTAGE - HMO) [id number] Patricia Hills [id number] Patricia Hills 06/10/2024 2 MEDICAID-[facility] CHOICES - FFS/TRADITIO NAL Patricia Hills [id number] Patricia Hills Notes Date Note Type Note Provider Name and Address Organization Details Recorded Time 06/09/2024 text/html ROS as noted in the HPI 06/09/2024 I am seeing Ms. Patricia Hills for evaluation of left carotid [...] some memory loss SEN REICH JR, MD [address] [place], [place], [address], [facility] 06/21/2024 08:37:58 OBGyn Episode No OBEpisode recorded.
--- OUTSIDE RECORDS SUMMARY | 2025-06-12 13:13 | XMS_ITS | Encounter Summary ---
Author Organization [facility] Address [address] [id number] Care Team Providers Care Medicine Man Name Role Phone Pcp, No Primary Care Provider Unavailabl e Reason for Referral * Consultation (Urgent) - Authorized Specialty Diagnoses / Procedures Referred By Contact Referred To Contact Vascular Surgery / [facility] Diagnoses Stenosis of carotid artery, unspecified laterality Prasad León MD [facility] [place] [address] Phone: tel:[phone] fax:[phone] [facility] [address] [place] [address] Phone: tel: fax: Referral ID Status Reason Start Date Expiration Date Visits Requested Visits Authorized [id number] Authorized Specialty Services Required 05/17/2024 11/16/2025 1 1 Encounter Details Date Type Department Care Team (Late st Contact Info) Description 05/17/2024 Community Orders Community Practice [address] [place] [address] Prasad León MD [address] [place] [address] Stenosis of carotid artery, unspecified [...] Primary documented in this encounter Care Teams Medicine Man Relationship Specialty Start Date End Date Pcp, Sonal [address] [place] [address] PCP - General Family Medicine 08/10/24 documented as of this encounter
--- OUTSIDE RECORDS SUMMARY | 2025-06-12 13:13 | XMS_ITS | Clinical Summary ---
Author Organization [facility] Address [address] [id number] Care Team Providers Care Health And Wellness Director Name Role Phone Pcp, No Primary Care [...] (one) time each day. Active nystatin (Mycostatin) 393739 UNIT/ML suspension Take 5 mL (500,000 Units) [...] or (1 - 1-dose 75+ series) 11/22/2015 [id number] Vaccine (1 - season) 2025 UKY-Influenza Vaccine [...] Patient has decision-making capacity? Yes Care Teams Health And Wellness Director Relationship Specialty Start Date End Date Pcp, No [address] [place] [address] PCP - General Family Medicine 08/10/24
== END 2025-06-12 23:59 | disposition home or self-care (01) ==
LOC: RAD 13:09
PROVIDERS: Visit Provider Orthopaedic Surgery
DX: M16.12 Unilateral primary osteoarthritis, left hip (principal); S72.002A Fracture of unspecified part of neck of left femur, initial encounter for closed fracture; Z96.642 Presence of left artificial hip joint
CPT/HCPCS: 73502

== ENCOUNTER 2025-06-13 23:33 | Observation (INO) | payer MEDICARE, MEDICAID, SELFPAY ==
--- OUTSIDE RECORDS SUMMARY | 2025-05-29 17:44 | XMS_ITS | Encounter Summary ---
Author Organization [place] [address] Care Team Providers Care Sand Plant Attendant Name Role Phone Unavailable Primary Care Provider Unavailabl e Reason for Visit * Auth/Cert/Inpt Specialty Diagnoses / Procedures Referred By Francisco J walter Referred To Contact Diagnoses Fracture Referral ID Status Reason Start Date Expiration Date Visits Re quested Visits Authorized [id number] Encounter Details Date Type Department Care Team (Latest Contact Info) Description 05/29/2025 5:44 PM EDT - 06/12/2025 11:24 AM EDT Hospital Encounter [facility] [address] [place] [id number] Hugh Zamarripa MD [facility] [place] [address] 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 0 05/30/2025 7:00 AM CORRYT Joanna Galloway RN How often do you have six [...] 05/29/2025 10:33 PM Paradise Ha RN * [place] Suicide Severity Rating Scale (Q shift for [...] Date Author Yes 06/12/2025 9:42 AM Riki Castellanos RN documented in this encounter Discharge Summaries * Hugh Zamarripa MD - 06/12/2025 6:[address] 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) Hospital Course/Significant Findings: Patient 84-year-old white female who fell at home and broke her left hip, underwent surgery on May 26 to repair/stabilize fracture. Patient admitted to [facility] for custodial and rehab, noted in hospital to have [...] Diagnoses: Fractured hip, left, closed, initial encounter ([facility]) Condition at Discharge: stable Disposition: Home Discharge [...] Your Medications These medications were sent to [id number] [place] [address] [address] [facility] [phone] [address] [facility] [address] cyanocobalamin 1,000 mcg/mL Soln insulin glargine U-100 [...] melatonin 5 mg Oral TabletIndications :Resides in custodial facility Take 1 Tablet by mouth nightly [...] (FLORASTOR) 250 mg Oral CapsuleIndication s:Resides in custodial facility Take 1 Capsule by mouth 2 times daily. 60 Capsule 06/12/2025 documented as of this encounter Ordered Prescriptions Prescription Sig Dispense Quantity Refills Last Filled Start Date End Date cyanocobalamin 1,000 mcg/mL Inj SolutionIndication s:Other fatigue Inject 1 mL into the muscle every 30 days. 1 mL 06/12/2025 Saccharomyces boulardii (FLORASTOR) 250 mg Oral CapsuleIndications :Resides in custodial facility Take 1 Capsule by mouth 2 times daily. 60 Capsule 06/12/2025 melatonin 5 mg Oral TabletIndications: Resides in custodial facility Take 1 Tablet by mouth nightly [...] Means Destination Comment s Home or Self Correction documented in this encounter Progress Notes * Amie Weller, PT - 06/12/2025 11:24 AM EDT 06/12/25 1629 SNF PT Subjective Note Type Discharge Mobility - Actual Discharge (Therapies) Sit to stand 4-Supv Chair/Oic-fx-qfdol transfer 4-Supv Walk 10 Feet 4-Supv Walk [...] Kylah. Kylah called and spoke with pt. DRINK MIXER notified and aware. Pt up in the [...] a pneumonia prior to being admitted here. DRINK MIXER notified with orders for CXR and labs. 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 female patient. Assessment: Condition: In stable condition. Improving. Present on Admission: ?? Fractured hip, left, closed, initial encounter (HCC) ?? Type 2 diabetes mellitus without complication, without long-term current use of insulin (HCC) ?? Essential hypertension ?? 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 Adrenal adenoma, [...] Essential hypertension ?? 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 Vital signs are normal. No fever. Output: [...] - 06/09/2025 1:07 PM EDT 06/09/25 1254 [facility] OT Subjective Note Type Treatment/Progress [...] placement, RW placement, and sequencing.) Additional Comments ANIMAL ECOLOGIST present during session due to agitation/confusion for [...] to sit on L arm rest of [facility] over commode and chair in room. Exercise [...] progress in skilled care at this time. correction placement or caregiver assistance may be helpful. [...] bed 88-Not attempted Sit to stand 4-Supv Chair/Syz-ks-nyoqm transfer 4-Supv Toilet transfer 88-Not attempted Tub/Shower [...] patient need. Time In / Time Out [id number] [facility] Actual Physical Therapy Minutes LTC PT Ind Therapy Min 49 (12Gt, 15Ex) * Geo Sargent DO - 06/08/2025 11:56 PM EDT Patricia Hills is a 84 y.o. female patient. Assessment: Condition: In stable condition. Improving. Present on Admission: ?? Fractured hip, left, closed, initial encounter (HCC) ?? Type 2 diabetes mellitus without complication, without long-term current use of insulin (HCC) ?? Essential hypertension ?? 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 Adrenal adenoma, [...] Essential hypertension ?? 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 Transfers Sit to Stand Contact guard assist;With verbal cues Stand to Sit Contact guard assistance;With verbal cues Bed to/from chair Contact guard assist;Walker Additional Comments Pt requires cues to push up from EOB and to reach back prior to sitting on surfaces. Gait Additional Comments Pt walked to lob with CGA and RW while OT followed [...] You will have to go to a fci because I can't do this at home. [...] with [facility], etc. Pt continued to state, They will laugh at me. Pt educated that no one is present in [facility] except pt/dtr/staff. Assessment Progress Slow progress, [...] Time In / Time Out 12:23-12:40; 12:51-13:20 [facility] Actual Occupational Therapy Minutes LTC Individual Therapy Minutes 48 * Gracie Macario, PT - 06/08/2025 9:43 AM EDT 06/08/25 0825 [facility] PT Subjective Note Type Treatment/Progress [...] of bed 4-Supv Sit to stand 4-Supv Chair/Qfp-dt-oqdwo transfer 4-Supv Toilet transfer 88-Not attempted Tub/Shower [...] this time. Time In / Time Out [id number] LTC Actual Physical Therapy Minutes LTC PT [...] declined multiple attempts-reports desire to wait for TristanRN despite OT explaining OT role.) (06/02/25 1643) Dressing UE Set up ([facility] gown and donned pullover shirt.) (06/01/25 1502) Dressing LE Contact guard, With verbal cues, Pull up over hips, Thread LLE into underwear, Thread RLE into underwear, Thread LLE into pants, Thread RLE into pants, Don/doff L sock, Don/doff R sock (Pt educated on use of recreation adviser/sock aid for LB dressing. Pt doffed/donned socks with CGA and MAX verbal cues for technique. CGA and MOD verbal cues to don pants with recreation adviser. MAX cues to hold RW at all [...] hip. ) (06/06/251239) Dressing UE Set up ([facility] gown and donned pullover shirt. Declined bra) (06/06/251239) Dressing LE Contact guard, With verbal cues, Don/doff L shoe, Don/doff R shoe, Pull up over hips, Thread RLE into pants, Thread LLE into pants, Don/doff L sock, Don/doff R sock (Pt able to use recreation adviser/sock aid for LB dressing with MOD cues and CGA. Dtr present to see use of recreation adviser. Pt stated, Well can't you pull my [...] time. Equipment Recommended hand held shower head, recreation adviser, sock aid, long handled sponge, grab bars. D/C plan: Pt reports plan to potentially return home on 06/09/25 pending status and family concerns. Plan: Continue to see pt 5x a week to continue to work towards goals. Celso Walker OTR/L 06/07/2025 * Celso Walker, OT - 06/07/2025 [...] alarm activated Additional Comments Call light within recreation adviser. Pt asked OT to put items on [...] [T14.8XXA] Fractured hip, left, closed, initial encounter ([facility]) [S72.002A] Upon assessment, pt with the following [...] aid in wound healing. Orders updated in [facility]. Primary nurse updated. Will continue to follow [...] complication, without long-term current use of insulin ([facility]) ?? Essential hypertension ?? 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 Adrenal adenoma, [...] Essential hypertension ?? 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 Vital signs are normal. No fever. Output: [...] hip. ) UE Dressing Assistance Set up ([facility] gown and donned pullover shirt. Declined bra) LE Dressing Assistance Contact guard;With verbal cues;Don/doff L shoe;Don/doff R shoe;Pull up over hips;Thread RLE into pants;Thread LLE into pants;Don/doff L sock;Don/doff R sock (Pt able to use recreation adviser/sock aid for LB dressing with MOD cues and CGA. Dtr present to see use of recreation adviser. Pt stated, Well can't you pull my [...] continue skilled, HHPT at discharge. Equip recommendations recreation adviser, sock aid, long handled sponge D/c date [...] thin is recommended and no further acute MEDICAL UNIT SECRETARY dysphagia intervention is warranted at this time. [...] liquids Assistance/Supervision: Independent Resident/caregiver education Alisha Castillo CCC-MEDICAL UNIT SECRETARY Care Conference held this date with resident [...] be faxed same date. Resident agreeable to [facility] ([facility]) services at discharge. Referral sent to [facility] and orders placed on chart. Jeannette [...] PT. Doing well with physical progress howeverraj lentz have increase in mental status/emotional well being currently. Patient improvedupon arrival of her daughter. Plan Treatment/Interventions Continue with current plan of care PT Frequency 5x/week Recommendation PT Recommendation Moderate frequency, moderate intensity five days a week therapy recommended. Time In / Time Out 0957/1012 [facility] Actual Physical Therapy Minutes LTC PT Ind [...] for fear of hip pain increasing.) (06/05/25 1659) Other Goal Status: Patient is progressing towards [...] PT - 06/06/2025 9:45 AM EDT 06/06/25 08 SNF PT Subjective Note Type Treatment/Progress Patient [...] table within reach * Geo Sargent V, DO - 06/05/2025 10:40 PM EDT Patricia Hills is a 84 y.o. female patient. Assessment: Condition: In stable condition. Improving. Present on Admission: ?? Fractured hip, left, closed, initial encounter (HCC) ?? Type 2 diabetes mellitus without complication, without long-term current use of insulin (HCC) ?? Essential hypertension ?? 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 Adrenal adenoma, [...] Essential hypertension ?? 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 Time In / Time Out 16:18-16:54 [facility] Actual Occupational Therapy Minutes LTC Individual Therapy Minutes 36 * Mirian Diallo RN - 06/05/2025 4:14 PM EDT contacted [facility] surgery at for Dr. Ortega. Patient has a follow up apt with Dr. Ortega on 06/12. Dr. Wilkerson office staff said that if the patient will not be discharged from [facility] by then, the staff nurse here at [facility] would need to remove the [...] at discharge) Time In / Time Out 958/0 LTC Actual Physical Therapy Minutes LTC PT [...] not working. Pt doesn't want to take [place], per pt [place] makes her confused. 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) Type 2 diabetes mellitus without complication, without long-term current use of insulin (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 At end of session when OT provided menu options from beside table, pt stated, Get her out of here. She is trying to get me too much food. Others Present/Assisting Nutrition-Farida Mraes Discharge Information This progress note will serve [...] Pt reported desire to read, read bible, [email or web address] puzzles and coloring. Activity area accessed and [...] discharge Time In / Time Out 1520/1533 [facility] Actual Physical Therapy Minutes [facility] PT Ind Therapy Min (!) 13 Katya Ott PT * Alex Mayberry, PT - 06/02/2025 1:50 PM EDT 06/02/25 1349 [facility] PT Subjective Note Type Follow Up Treatment Attempt Patient Room/Unit 106 Therapy delay reason Patient declined * Katya Ott, PT - 06/02/2025 1:07 PM EDT 06/02/25 1306 PT Subjective Note Type Follow Up Treatment Attempt Patient Room/Unit 106 Others Present/Assisting daughter Therapy delay reason Patient eating Katya Ott PT * Alex Mayberry, PT - 06/02/2025 11:37 AM EDT 06/02/25 1134 [facility] PT Subjective Note Type Treatment/Progress [...] (HCC) Essential hypertension 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 Pt doffed/donned socks with CGA and MAX verbal cues for technique. CGA and MOD verbal cues to don pants with recreation adviser. MAX cues to hold RW at all [...] 2:[address] [facility] Nutrition Initial Assessment Evidence Supported Malnutrition Diagnosis: No malnutrition identified Nutrition Problem/Diagnosis: Nutrition Diagnosis Problem 1: Increased nutrient needs (specify) (energy and amino acids) Calories (amino acids) related to increased demand for energy/nutrients, anticipated change in physical demands as evidenced by wounds, increased estimated needs. Status: New nutrition diagnosis Nutrition Prescription: Kcals: [phone] K Jacinto Needs Based On: Kcal/kg - [...] [T14.8XXA] Fractured hip, left, closed, initial encounter ([facility]) [S72.002A] Reason For Assessment: Skin integrity protocol, [...] Occurrence: 1 Stool Appearance: (!) Type 6 [place] Stool Chart Stool Color: Brown, Yellow Stool [...] kidney mass on the left.Patient sent to [facility] for skilled rehab. * Silvia Diaz, [...] discharge Time In / Time Out 1013/1027 LT Actual Physical Therapy Minutes LTC PT Ind Therapy Min (!) 14 Silvia [...] LTC PT Ind Therapy Min 19 Katya Ott PT * Claudia Jacobo RN - 06/01/2025 [...] status;Chair/personal alarm activated Additional Comments RN and ANIMAL ECOLOGIST present at end of session assess glucose [...] recommended. Time In / Time Out 15:55-16:41 [facility] Actual Occupational Therapy Minutes LTC Individual Therapy [...] she thinks she is staying in a worship somewhere, reoriented to both time and place, also pulled stat lock for starr off, encouraged patient keep hands away from cath as it could cause infection or trama, encouraged to use call light for needs and assistance. Will continue to monitor. * Stephany Lopez LPN - 05/30/2025 11:14 PM EDT Up to [facility] with walker, gait belt and assist of [...] at discharge Time In / Time Out [id number] [facility] Actual Physical Therapy Minutes LTC PT Ind Therapy Min (!) 13 Katya Ott, PT * NileshJoanna montes de oca RN - 05/30/2025 2:41 PM EDT Patient [...] like standing up right now. Others Present/Assisting Mary-branding machine tender Information Evaluation to serve as discharge summary [...] left. Clinical Course Patient was admitted to [facility] and had LLE hemiarthroplasty 05/26/25. Trasnferred to [...] living in basement of her home at [facility]. Pt has decreased BUE strength, decreased independence [...] training in prep to return home to [facility]. Goals Patient and/or Family Goal to get [...] OT Weekly Progress Note Due Date 06/07/25 [facility] Actual Occupational Therapy Minutes LT OT Evaluation Minutes 15 [facility] Individual Therapy Minutes 29 * Hugh Zamarripa MD - 05/30/2025 1:44 PM EDTAssociated Order(s): Inpatient consult to wound care for:Pressure injury; sacrum coccyx Images from the original note were not included. Inpatient consult to wound care for:Pressure injury; sacrum coccyx Consult performed by: Hugh Zamraripa MD Consult ordered by: Hugh Zamarripa MD [...] left. Clinical Course Patient was admitted to [facility] and had LLE hemiarthroplasty 05/26/25. Trasnferred to [...] shower. Nephew reports several falls since Jul. Shealso has back problems and sciatic problems. Activity Tolerance Endurance Limits participation and activity Vitals VSS Observation Presentation Patient resting in bed Observation Bed alarm;Oxygen - nasal cannula;External urinary catheter (purewick removed prior to patient mobility to encourage movement/ambulation to<>from restroom by ANIMAL ECOLOGIST.) UE Assessment LUE Assessment WFL RUE Assessment [...] of bed 2-Substantial Sit to stand 2-Substantial Chair/Cgq-nw-jkclo transfer 2-Substantial Toilet transfer 2-Substantial (BS) Walk 10 Feet 88-Not attempted Walk 50 feet with two turns 88-Not attempted Walk 150 feet 88-Not attempted Walking 10 Feet On Uneven Surfaces 88-Not attempted 1 Step (Curb) 88-Not attempted 4 Steps 88-Not attempted 12 Steps 88-Not attempted Picking Up Object 88-Not attempted Does the resident use a wheelchair/scooter? N1-o Patient Insurance Does Patient Have [place] Insurance? no Bed Mobility Supine to Sit [...] After several attempts demonstrated improvement. Sat at [facility]. Then Katya PT assisted with ANIMAL ECOLOGIST [facility]. Gait Gait Not performed Stair Management [...] based upon hospital discharge instructions received from [facility]. Per Dr. Zamarripa, hold tonight's dose of [...] mass on the left. Patient sent to [facility] for skilled rehab. Review of Systems [...] Diagnosis *Fractured hip, left, closed, initial encounter ([facility]) Type 2 diabetes mellitus without complication, without long-term current use of insulin (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 * RT Oxygen Plan of [...] * Plan of Care - Alisha Castillo CCC-MEDICAL UNIT SECRETARY - 06/06/2025 4:27 PM EDT Clinical Swallow [...] mass on the left. Patient sent to [facility] for skilled rehab. MEDICAL UNIT SECRETARY consulted for swallow evaluation as pt reported [...] thin is recommended and no further acute MEDICAL UNIT SECRETARY dysphagia intervention is warranted at this time. [...] liquids Assistance/Supervision: Independent Pt/caregiver education No further MEDICAL UNIT SECRETARY needs at this time 06/06/25 1239 Clinical [...] Goal none voiced Patient/Family Education Completed Yes MEDICAL UNIT SECRETARY Recommendation Home with prior support This note [...] MSW - 05/30/2025 11:03 AM EDT 05/30/25. SHAMAR Admission Note: Resident admitted 05/29 for therapy and medical management. She fell at home on 05/24 resulting in left femoral neck fracture and left hip fracture with hemiarthroplasty on 05/26. Met with resident and daughter Kylah in room. Resident sitting upright in recliner with feetelevated on 2L O2 NC. Daughter reported she previously had home O2 with [facility][Note 3] Medical Equipment [place], and when no longer needed, was returned to [facility][Note 3]. She lives with daughter and plans to return at discharge. There are 7 steps into the home with handrails. She was independent in ADL's prior to fall and has a 2WW. Pharmacy is [facility]. They are agreeable to [facility] at discharge as they had them in the past. Care Conference scheduled on 06/06 at 1:00 pm. SW following. documented in this encounter Plan of Treatment Pending Results Name Type Priority Associated Diagnoses Date /Time BLOOD CULTURE (NO STAIN) Microbiology Routine 06/10/2025 5:21 PM EDT BLOOD CULTURE (NO STAIN) Microbiology Routine 06/10/2025 5:21 PM EDT documented as of this encounter Procedures Procedure [...] - 100 mg/dL 06/12/2025 8:14 AM EDT [facility] Sample Type Capillary 06/12/2025 8:14 AM EDT [facility] Patient Status Non-Critical Patient 06/12/2025 8:14 AM EDT [facility] Blood BLOOD SPECIMEN / Unknown 06/12/2025 8:13 AM EDT 06/12/2025 8:14 AM EDT us Hugh Zamarripa MD POINT OF CARE TEST ORDER PEDRO LUIS Final Result Performing Organization Address City/[facility] Co de Phone Number [facility] [address] [place] [address] * MAGNESIUM LEVEL (06/12/2025 5:33 AM EDT) Pathologist [facility] Magnesium 1.7 1.6 - 2.4 mg/dL 06/12/2025 5:55 AM EDT [facility] Blood VENOUS BLOOD / Unknown Venipuncture / Unknown 06/12/2025 5:33 AM EDT 06/12/2025 5:33 AM EDT us Jennifer Fontana APRN CHEMISTRY ORDERABLES Fin al Result Performing Organization Address City/[facility]/ZIP Co de Phone Number [facility] [address], [place] [id number] * (ABNORMAL) CBC (06/12/2025 5:33 AM EDT) WBC 7.9 3.7 - 10.3 x10(3)/mcL 06/12/2025 5:36 AM EDT [facility] RBC 3.76(L) 3.90 - 5.20 x10(6)/mcL 06/12/2025 5:36 AM EDT [facility] Hgb 11.3 11.2 - 15.7 g/dL 06/12/2025 5:36 AM EDT [facility] Hct 35.6 34.0 - 45.0 % 06/12/2025 5:36 AM EDT [facility] MCV 94.7 80.0 - 100.0 fL 06/12/2025 5:36 AM EDT [facility] MCH 30.1 26.0 - 34.0 pg 06/12/2025 5:36 AM EDT [facility] MCHC 31.7 30.7 - 35.5 g/dL 06/12/2025 5:36 AM EDT [facility] RDW 13.0 <=14.9 % 06/12/2025 5:36 AM EDT [facility] Platelet 366 155 - 369 x10(3)/mcL 06/12/2025 5:36 AM EDT [facility] MPV 8.8 8.8 - 12.5 fL 06/12/2025 5:36 AM EDT [facility] Blood VENOUS BLOOD / Unknown Venipuncture / Unknown 06/12/2025 5:33 AM EDT 06/12/2025 5:33 AM EDT us Jennifer Fontana FACILITY ENGINEER HEMATOLOGY ORDERABLES Fi nal Result [facility] [address] [place] [address] * (ABNORMAL) BASIC METABOLIC PANEL (06/12/2025 5:33 AM EDT) Sodium 144 136 - 145 mmol/L 06/12/2025 5:55 AM EDT [facility] Potassium 4.0 3.5 - 5.0 mmol/L 06/12/2025 5:55 AM EDT [facility] Chloride 108(H) 98 - 107 mmol/L 06/12/2025 5:55 AM EDT [facility] Total CO2 27 22 - 29 mmol/L 06/12/2025 5:55 AM EDT [facility] Anion Gap 9 7 - 16 mmol/L 06/12/2025 5:55 AM EDT [facility] Calcium 8.5(L) 8.8 - 10.4 mg/dL 06/12/2025 5:55 AM EDT [facility] Glucose Lvl 137(H) 70 - 99 mg/dL 06/12/2025 5:55 AM EDT [facility] BUN 14 8 - 23 mg/dL 06/12/2025 5:55 AM T [facility] Creatinine 0.64 0.51 - 1.30 mg/dL 06/12/2025 5:55 AM EDT [facility] eGFR (CKD-EPIcr 2020) 86 >=60 mL/min/1.7 3 m2 06/12/2025 5:55 AM EDT [facility] Comment:Estimated GFR was ca lculated using the CKD-EPIcr (2020) equation refit without race. The equation is recommended by the National Kidney [employer] - [place] [employer] Neph[employer] Task Force. Blood VENOUS BLOOD / Unknown Venipuncture / Unknown 06/12/2025 5:33 AM EDT 06/12/2025 5:33 AM EDT Jennifer Fontana APRN CHEMISTRY ORDERABLES Fin al Result [facility] [address] [place], [place] [id number] * (ABNORMAL) GLUCOSE METER POC (06/11/2025 8:58 PM EDT) Glucose Meter POC 111(H) 70 - 100 mg/dL 06/11/2025 9:00 PM EDT [facility] Sample Type Capillary 06/11/2025 9:00 PM EDT [facility] Patient Status Non-Critical Patient 06/11/2025 9:00 PM EDT [facility] Blood BLOOD SPECIMEN / Unknown 06/11/2025 8:58 PM EDT 06/11/2025 9:00 PM EDT Hugh Zamarripa MD POINT OF CARE TEST ORDER PEDRO LUIS Final Result Performing Organization Address [facility] Co de Phone Number [facility] [address] [place] [address] * (ABNORMAL) GLUCOSE METER POC (06/11/2025 4:59 PM EDT) Glucose Meter POC 128(H) 70 - 100 mg/dL 06/11/2025 5:00 PM EDT [facility] Sample Type Capillary 06/11/2025 5:00 PM EDT [facility] Patient Status Non-Critical Patient 06/11/2025 5:00 PM EDT [facility] Blood BLOOD SPECIMEN / Unknown 06/11/2025 4:59 PM EDT 06/11/2025 5:00 PM EDT Hugh Zamarripa MD POINT OF CARE TEST ORDER PEDRO LUIS Final Result Performing Organization Address [facility] Co de Phone Number [facility] [address] [place] [address] * (ABNORMAL) GLUCOSE METER POC (06/11/2025 12:16 PM EDT) Glucose Meter POC 107(H) 70 - 100 mg/dL 06/11/2025 12:18 PM EDT [facility] Sample Type Capillary 06/11/2025 12:18 PM EDT [facility] Patient Status Non-Critical Patient 06/11/2025 12:18 PM EDT [facility] Blood BLOOD SPECIMEN / Unknown 06/11/2025 12:16 PM EDT 06/11/2025 12:18 PM EDT Hugh Zamarripa MD POINT OF CARE TEST ORDER PEDRO LUIS Final Result Performing Organization Address City/[facility] de Phone Number [facility] [address] [place] [address] * (ABNORMAL) GLUCOSE METER POC (06/11/2025 7:59 AM EDT) Glucose Meter POC 127(H) 70 - 100 mg/dL 06/11/2025 8:01 AM EDT [facility] Sample Type Capillary 06/11/2025 8:01 AM EDT [facility] Patient Status Non-Critical Patient 06/11/2025 8:01 AM EDT [facility] Blood BLOOD SPECIMEN / Unknown 06/11/2025 7:59 AM EDT 06/11/2025 8:01 AM EDT us Hugh Zamarripa MD POINT OF CARE TEST ORDER PEDRO LUIS Final Result Performing Organization Address [facility] de Phone Number [facility] [address] [place] [address] * EXTRA LAVENDER (06/11/2025 6:17 AM EDT) Blood VENOUS BLOOD / Unknown Venipuncture / Unknown 06/11/2025 6:17 AM EDT 06/11/2025 9:04 AM EDT us Hugh Zamarripa MD HEMATOLOGY ORDERABLES Fi nal Result Performing Organization Address [facility] de Phone Number [facility] [address] [place] [address] * REPEAT LACTIC ACID (06/11/2025 6:17 AM EDT) Lactic Acid 1.9 0.5 - 1.9 mmol/L 06/11/2025 6:31 AM EDT [facility] Blood VENOUS BLOOD / Unknown Venipuncture / Unknown 06/11/2025 6:17 AM EDT 06/11/2025 6:17 AM EDT Hugh Zamarripa MD CHEMISTRY ORDERABLES Fin al Result Performing Organization Address City/[facility] Co de Phone Number [facility] [address] [place] [address] * MAGNESIUM LEVEL (06/11/2025 6:17 AM EDT) [facility] Magnesium 1.6 1.6 - 2.4 mg/dL 06/11/2025 6:56 AM EDT [facility] Blood VENOUS BLOOD / Unknown Venipuncture / Unknown 06/11/2025 6:17 AM EDT 06/11/2025 6:43 AM EDT Jennifer Fontana APRN CHEMISTRY ORDERABLES Fin al Result Performing Organization Address [facility] Co de Phone Number [facility] [address] [place] [address] * (ABNORMAL) BASIC METABOLIC PANEL (06/11/2025 6:17 AM EDT) [facility] Sodium 145 136 - 145 mmol/L 06/11/2025 6:56 AM EDT [facility] Potassium 3.8 3.5 - 5.0 mmol/L 06/11/2025 6:56 AM EDT [facility] Chloride 110(H) 98 - 107 mmol/L 06/11/2025 6:56 AM EDT [facility] Total CO2 24 22 - 29 mmol/L 06/11/2025 6:56 AM EDT [facility] Anion Gap 11 7 - 16 mmol/L 06/11/2025 6:56 AM EDT [facility] Calcium 8.2(L) 8.8 - 10.4 mg/dL 06/11/2025 6:56 AM EDT [facility] Glucose Lvl 128(H) 70 - 99 mg/dL 06/11/2025 6:56 AM EDT [facility] BUN 14 8 - 23 mg/dL 06/11/2025 6:56 AM EDT [facility] Creatinine 0.61 0.51 - 1.30 mg/dL 06/11/2025 6:56 AM EDT [facility] eGFR (CKD-EPIcr 2020) 87 >=60 mL/min/1.7 3 m2 06/11/2025 6:56 AM EDT [facility] Comment:Estimated GFR was ca lculated using the CKD-EPIcr (2020) equation refit without race. The equation is recommended by the National Kidney Foundation - [place] [employer] Nephrology Task Force. Blood VENOUS BLOOD / Unknown Venipuncture / Unknown 06/11/2025 6:17 AM EDT 06/11/2025 6:43 AM EDT Jennifer Fontana APRN CHEMISTRY ORDERABLES Fin al Result Performing Organization Address [facility] de Phone Number [facility] [address] [place] [address] * (ABNORMAL) REPEAT LACTIC ACID (06/10/2025 11:20 PM EDT) Lactic Acid 2.3(H) 0.5 - 1.9 mmol/L 06/10/2025 11:36 PM EDT [facility] Blood VENOUS BLOOD / Unknown Venipuncture / Unknown 06/10/2025 11:20 PM EDT 06/10/2025 11:20 PM EDT Hugh Zamarripa MD CHEMISTRY ORDERABLES Fin al Result Performing Organization Address [facility] de Phone Number [facility] [address] [place] [address] * (ABNORMAL) REPEAT LACTIC ACID (06/10/2025 8:14 PM EDT) Lactic Acid 3.3(H) 0.5 - 1.9 mmol/L 06/10/2025 8:29 PM EDT [facility] Blood VENOUS BLOOD / Unknown Venipuncture / Unknown 06/10/2025 8:14 PM EDT 06/10/2025 8:14 PM EDT Jennifer Fontana APRN CHEMISTRY ORDERABLES Fin al Result Performing Organization Address City/[facility] Co de Phone Number [facility] [address] [place] [address] * (ABNORMAL) GLUCOSE METER POC (06/10/2025 4:58 PM EDT) Glucose Meter POC 139(H) 70 - 100 mg/dL 06/10/2025 5:00 PM EDT [facility] Sample Type Capillary 06/10/2025 5:00 PM EDT [facility] Patient Status Non-Critical Patient 06/10/2025 5:00 PM EDT [facility] Blood BLOOD SPECIMEN / Unknown 06/10/2025 4:58 PM EDT 06/10/2025 5:00 PM EDT Hugh Zamarripa MD POINT OF CARE TEST ORDER PEDRO LUIS Final Result Performing Organization Address [facility] Co de Phone Number [facility] [address] [place] [address] * (ABNORMAL) REPEAT LACTIC ACID (06/10/2025 2:18 PM EDT) Lactic Acid 3.2(H) 0.5 - 1.9 mmol/L 06/10/2025 2:34 PM EDT [facility] Blood VENOUS BLOOD / Unknown Venipuncture / Unknown 06/10/2025 2:18 PM EDT 06/10/2025 2:23 PM EDT Jennifer Fontana APRN CHEMISTRY ORDERABLES Fin al Result [facility] [address] [place] [address] * (ABNORMAL) GLUCOSE METER POC (06/10/2025 11:59 AM EDT) Glucose Meter POC 105(H) 70 - 100 mg/dL 06/10/2025 12:00 PM EDT [facility] Sample Type Capillary 06/10/2025 12:00 PM EDT [facility] Patient Status Non-Critical Patient 06/10/2025 12:00 PM EDT [facility] Blood BLOOD SPECIMEN / Unknown 06/10/2025 11:59 AM EDT 06/10/2025 12:00 PM EDT Hugh Zamarripa MD POINT OF CARE TEST ORDER PEDRO LUIS Final Result Performing Organization Address [facility] de Phone Number [facility] [address] [place] [address] * (ABNORMAL) MAGNESIUM LEVEL (06/10/2025 11:52 AM EDT) Magnesium 1.3(L) 1.6 - 2.4 mg/dL 06/10/2025 1:12 PM EDT [facility] Blood VENOUS BLOOD / Unknown Venipuncture / Unknown 06/10/2025 11:52 AM EDT 06/10/2025 12:00 PM EDT Jennifer Fontana APRN CHEMISTRY ORDERABLES Fin al Result Performing Organization Address [facility] de Phone Number [facility] [address] [place] [address] * PROCALCITONIN (06/10/2025 11:52 AM EDT) Procalcitonin 0.08 <=0.49 ng/mL 06/10/2025 7:35 PM EDT [facility] Blood VENOUS BLOOD / Unknown Venipuncture / Unknown 06/10/2025 11:52 AM EDT 06/10/2025 12:00 PM EDT Narrative [facility] - 06/10/2025 7:35 PM EDT Procalcitonin <0.50 [...] progression to severe sepsis and/or septic shock. Jennifer Fontana APRN CHEMISTRY ORDERABLES Fin al Result Performing Organization Address City/[facility]/ZIP Co de Phone Number [facility] [address], [facility] [place] [address] * (ABNORMAL) LACTIC ACID (06/10/2025 11:52 AM EDT) Lactic Acid 2.1(H) 0.5 - 1.9 mmol/L 06/10/2025 12:13 PM EDT [facility] Blood VENOUS BLOOD / Unknown Venipuncture / Unknown 06/10/2025 11:52 AM EDT 06/10/2025 12:00 PM EDT Jennifer Fontana APRN CHEMISTRY ORDERABLES Fin al Result Performing Organization Address [facility] Co de Phone Number [facility] [address] [place] [address] * (ABNORMAL) CBC (06/10/2025 11:52 AM EDT) WBC 10.5(H) 3.7 - 10.3 x10(3)/mcL 06/10/2025 12:03 PM EDT [facility] RBC 3.93 3.90 - 5.20 x10(6)/mcL 06/10/2025 12:03 PM EDT [facility] Hgb 11.9 11.2 - 15.7 g/dL 06/10/2025 12:03 PM EDT [facility] Hct 36.2 34.0 - 45.0 % 06/10/2025 12:03 PM EDT [facility] MCV 92.1 80.0 - 100.0 fL 06/10/2025 12:03 PM EDT [facility] MCH 30.3 26.0 - 34.0 pg 06/10/2025 12:03 PM EDT [facility] MCHC 32.9 30.7 - 35.5 g/dL 06/10/2025 12:03 PM EDT [facility] RDW 12.7 <=14.9 % 06/10/2025 12:03 PM EDT [facility] Platelet 400(H) 155 - 369 x10(3)/mcL 06/10/2025 12:03 PM EDT [facility] MPV 8.9 8.8 - 12.5 fL 06/10/2025 12:03 PM T [facility] Blood VENOUS BLOOD / Unknown Venipuncture / Unknown 06/10/2025 11:52 AM EDT 06/10/2025 12:00 PM EDT Jennifer Fontana APRN HEMATOLOGY ORDERABLES Fi nal Result [facility] [address] [place] [address] * (ABNORMAL) BASIC METABOLIC PANEL (06/10/2025 11:52 AM EDT) Sodium 143 136 - 145 mmol/L 06/10/2025 12:16 PM EDT [facility] Potassium 3.2(L) 3.5 - 5.0 mmol/L 06/10/2025 12:16 PM T [facility] Chloride 105 98 - 107 mmol/L 06/10/2025 12:16 PM T [facility] Total CO2 25 22 - 29 mmol/L 06/10/2025 12:16 PM T [facility] Anion Gap 13 7 - 16 mmol/L 06/10/2025 12:16 PM T [facility] Calcium 8.5(L) 8.8 - 10.4 mg/dL 06/10/2025 12:16 PM T [facility] Glucose Lvl 106(H) 70 - 99 mg/dL 06/10/2025 12:16 PM EDT [facility] BUN 16 8 - 23 mg/dL 06/10/2025 12:16 PM EDT [facility] Creatinine 0.67 0.51 - 1.30 mg/dL 06/10/2025 12:16 PM EDT [facility] eGFR (CKD-EPIcr 2020) 85 >=60 mL/min/1.7 3 m2 06/10/2025 12:16 PM EDT [facility] Comment:Estimated GFR was ca lculated using the CKD-EPIcr (2020) equation refit without race. The equation is recommended by the National Kidney Foundation - [place] [employer] Nephrology Task Force. Blood VENOUS BLOOD / Unknown Venipuncture / Unknown 06/10/2025 11:52 AM EDT 06/10/2025 12:00 PM EDT us Jennifer Fontana APRN CHEMISTRY ORDERABLES Fin al Result [facility] [address] [place], [place] [id number] * XR CHEST AP PORTABLE (06/10/2025 11:38 [...] please contactthe office of the ordering clinician. Jennifer Fontana APRN IMG DIAGNOSTIC IMAGING O RDERABLES Final Result * (ABNORMAL) GLUCOSE METER POC (06/10/2025 8:36 AM EDT) Glucose Meter POC 126(H) 70 - 100 mg/dL 06/10/2025 8:38 AM EDT [facility] Sample Type Capillary 06/10/2025 8:38 AM EDT [facility] Patient Status Non-Critical Patient 06/10/2025 8:38 AM EDT [facility] Blood BLOOD SPECIMEN / Unknown 06/10/2025 8:36 AM EDT 06/10/2025 8:38 AM EDT Hugh Zamarripa MD POINT OF CARE TEST ORDER PEDRO LUIS Final Result Performing Organization Address City/[facility] Co de Phone Number [facility] [address] [place], [place] [id number] * (ABNORMAL) GLUCOSE METER POC (06/09/2025 8:23 PM EDT) Glucose Meter POC 155(H) 70 - 100 mg/dL 06/09/2025 8:24 PM EDT [facility] Sample Type Capillary 06/09/2025 8:24 PM EDT [facility] Patient Status Non-Critical Patient 06/09/2025 8:24 PM EDT [facility] Blood BLOOD SPECIMEN / Unknown 06/09/2025 8:23 PM EDT 06/09/2025 8:24 PM EDT Hugh Zamarripa MD POINT OF CARE TEST ORDER PEDRO LUIS Final Result Performing Organization Address City/State/[facility] Co de Phone Number [facility] [address] [place] [address] * (ABNORMAL) GLUCOSE METER POC (06/09/2025 4:53 PM EDT) Glucose Meter POC 117(H) 70 - 100 mg/dL 06/09/2025 4:54 PM EDT [facility] Sample Type Capillary 06/09/2025 4:54 PM EDT [facility] Patient Status Non-Critical Patient 06/09/2025 4:54 PM EDT [facility] Blood BLOOD SPECIMEN / Unknown 06/09/2025 4:53 PM EDT 06/09/2025 4:54 PM EDT Hugh Zamarripa MD POINT OF CARE TEST ORDER PEDRO LUIS Final Result Performing Organization Address [facility] de Phone Number [facility] [address] [place] [address] * (ABNORMAL) GLUCOSE METER POC (06/09/2025 11:44 AM EDT) Glucose Meter POC 149(H) 70 - 100 mg/dL 06/09/2025 11:45 AM EDT [facility] Sample Type Capillary 06/09/2025 11:45 AM EDT [facility] Patient Status Non-Critical Patient 06/09/2025 11:45 AM EDT [facility] Blood BLOOD SPECIMEN / Unknown 06/09/2025 11:44 AM EDT 06/09/2025 11:45 AM EDT us Hugh Zamarripa MD POINT OF CARE TEST ORDER PEDRO LUIS Final Result Performing Organization Address [facility] Co de Phone Number [facility] [address] [place] [address] * (ABNORMAL) GLUCOSE METER POC (06/09/2025 7:43 AM EDT) Glucose Meter POC 113(H) 70 - 100 mg/dL 06/09/2025 7:44 AM EDT [facility] Sample Type Capillary 06/09/2025 7:44 AM EDT [facility] Patient Status Non-Critical Patient 06/09/2025 7:44 AM EDT [facility] Blood BLOOD SPECIMEN / Unknown 06/09/2025 7:43 AM EDT 06/09/2025 7:44 AM EDT Hugh Zamarripa MD POINT OF CARE TEST ORDER PEDRO LUIS Final Result Performing Organization Address City/[facility]/ZIP Co de Phone Number [facility] [address] [place] [address] * (ABNORMAL) GLUCOSE METER POC (06/08/2025 8:01 PM EDT) Glucose Meter POC 151(H) 70 - 100 mg/dL 06/08/2025 8:03 PM EDT [facility] Sample Type Capillary 06/08/2025 8:03 PM EDT [facility] Patient Status Non-Critical Patient 06/08/2025 8:03 PM EDT [facility] Blood BLOOD SPECIMEN / Unknown 06/08/2025 8:01 PM EDT 06/08/2025 8:03 PM EDT Hugh Zamarripa MD POINT OF CARE TEST ORDER PEDRO LUIS Final Result Performing Organization Address City/[facility]/ZIP Co de Phone Number [facility] [address] [place] [address] * (ABNORMAL) GLUCOSE METER POC (06/08/2025 4:33 PM EDT) Glucose Meter POC 145(H) 70 - 100 mg/dL 06/08/2025 4:35 PM EDT [facility] Sample Type Capillary 06/08/2025 4:35 PM EDT [facility] Patient Status Non-Critical Patient 06/08/2025 4:35 PM EDT [facility] Blood BLOOD SPECIMEN / Unknown 06/08/2025 4:33 PM EDT 06/08/2025 4:35 PM EDT us Hugh Zamarripa MD POINT OF CARE TEST ORDER PEDRO LUIS Final Result [facility] [address] [place], [place] [id number] * (ABNORMAL) BASIC METABOLIC PANEL (06/08/2025 4:27 PM EDT) Sodium 143 136 - 145 mmol/L 06/08/2025 4:45 PM EDT [facility] Potassium 4.0 3.5 - 5.0 mmol/L 06/08/2025 4:45 PM EDT [facility] Chloride 103 98 - 107 mmol/L 06/08/2025 4:45 PM EDT [facility] Total CO2 28 22 - 29 mmol/L 06/08/2025 4:45 PM EDT [facility] Anion Gap 12 7 - 16 mmol/L 06/08/2025 4:45 PM EDT [facility] Calcium 8.9 8.8 - 10.4 mg/dL 06/08/2025 4:45 PM EDT [facility] Glucose Lvl 143(H) 70 - 99 mg/dL 06/08/2025 4:45 PM EDT [facility] BUN 14 8 - 23 mg/dL 06/08/2025 4:45 PM EDT [facility] Creatinine 0.75 0.51 - 1.30 mg/dL 06/08/2025 4:45 PM EDT [facility] eGFR (CKD-EPIcr 2020) 78 >=60 mL/min/1.7 3 m2 06/08/2025 4:45 PM EDT [facility] Comment:Estimated GFR was ca lculated using the CKD-EPIcr (2020) equation refit without race. The equation is recommended by the [employer] - [employer] [employer] Task Force. Blood VENOUS BLOOD / Unknown Venipuncture / Unknown 06/08/2025 4:27 PM EDT 06/08/2025 4:30 PM EDT us Viral Sargent V, DO CHEMISTRY ORDERABLES Final Res ult Performing Organization Address [facility] Co de Phone Number [facility] [address] [place] [address] * (ABNORMAL) GLUCOSE METER POC (06/08/2025 11:48 AM EDT) Glucose Meter POC 140(H) 70 - 100 mg/dL 06/08/2025 11:50 AM EDT [facility] Sample Type Capillary 06/08/2025 11:50 AM EDT [facility] Patient Status Non-Critical Patient 06/08/2025 11:50 AM EDT [facility] Blood BLOOD SPECIMEN / Unknown 06/08/2025 11:48 AM EDT 06/08/2025 11:50 AM EDT us Hugh Zamarripa MD POINT OF CARE TEST ORDER PEDRO LUIS Final Result Performing Organization Address [facility] de Phone Number [facility] [address] [place] [address] * (ABNORMAL) GLUCOSE METER POC (06/08/2025 8:30 AM EDT) Glucose Meter POC 126(H) 70 - 100 mg/dL 06/08/2025 8:31 AM EDT [facility] Sample Type Capillary 06/08/2025 8:31 AM EDT [facility] Patient Status Non-Critical Patient 06/08/2025 8:31 AM EDT [facility] Blood BLOOD SPECIMEN / Unknown 06/08/2025 8:30 AM EDT 06/08/2025 8:31 AM EDT us Hugh Zamarripa MD POINT OF CARE TEST ORDER PEDRO LUIS Final Result Performing Organization Address [facility] Co de Phone Number [facility] [address] [place] [address] * (ABNORMAL) GLUCOSE METER POC (06/07/2025 8:56 PM EDT) Glucose Meter POC 135(H) 70 - 100 mg/dL 06/07/2025 8:57 PM EDT [facility] Sample Type Capillary 06/07/2025 8:57 PM EDT [facility] Patient Status Non-Critical Patient 06/07/2025 8:57 PM EDT [facility] Blood BLOOD SPECIMEN / Unknown 06/07/2025 8:56 PM EDT 06/07/2025 8:57 PM EDT us Hugh Zamarripa MD POINT OF CARE TEST ORDER PEDRO LUIS Final Result Performing Organization Address City/State/[facility] Co de Phone Number [facility] [address] [place] [address] * (ABNORMAL) URINE CULTURE (NO STAIN) (06/07/2025 8:48 PM EDT) Culture Positive Growth(A) 06/10/2025 1:16 PM EDT [facility] Culture >100,000 CFU/mL Lactobacillus species SUSCEPTIB ILITY RESULT 06/10/2025 1:16 PM EDT [facility] Comment:No further workup. Culture 4,000 CFU/mL Ashley albicans SUSCEPTIB ILITY RESULT 06/10/2025 1:16 PM EDT [facility] Comment:No further workup. Urine STRUCTURE OF URINARY TRACT PROPER / Unknown 06/07/2025 8:48 PM EDT 06/07/2025 9:08 PM EDT us Viral Sargent V, DO MICROBIOLOGY - GENERAL ORDERAB LES Final Result Performing Organization Address City/[facility]/ZIP Co de Phone Number [facility] [address] [facility] , [place] [address] * EXTRA LAUGHLIN URINE CX (06/07/2025 8:48 PM EDT) Urine STRUCTURE OF URINARY TRACT PROPER / Unknown 06/07/2025 8:48 PM EDT 06/07/2025 8:59 PM EDT us Viral Sargent V, DO MICROBIOLOGY - GENERAL ORDERAB LES Final Result [facility] [address] [place], [place] [id number] * (ABNORMAL) URINALYSIS REFLEX (06/07/2025 8:48 PM EDT) UA Color Yellow 06/07/2025 9:08 PM EDT [facility] UA Appear Clear Clear 06/07/2025 9:08 PM EDT [facility] UA Glucose Negative Negative mg/dL 06/07/2025 9:08 PM EDT [facility] UA Ketones Negative Negative mg/dL 06/07/2025 9:08 PM EDT [facility] UA Blood Negative Negative 06/07/2025 9:08 PM EDT [facility] UA pH 6.0 5.0 - 8.0 pH 06/07/2025 9:08 PM EDT [facility] UA Protein Trace(A) Negative mg/dL 06/07/2025 9:08 PM EDT [facility] UA Urobilinogen 0.2 <=1 mg/dL 9:08 PM EDT [facility] UA Bili Negative Negative 06/07/2025 9:08 PM EDT [facility] UA Nitrite Negative Negative 06/07/2025 9:08 PM EDT [facility] UA Leuk Est Small(A) Negative 06/07/2025 9:08 PM EDT [facility] UA Spec Grav 1.025 1.001 - 1.035 no units 06/07/2025 9:08 PM EDT [facility] Comment:Reference range tessie d for random specimens only. UA WBC 10(H) 0 - 4 /HPF 06/07/2025 9:08 PM EDT [facility] UA RBC 0 0 - 3 /HPF 06/07/2025 9:08 PM EDT [facility] UA Squam Epi 2+ /LPF 06/07/2025 9:08 PM EDT [facility] UA Mucus 2+ /LPF 06/07/2025 9:08 PM EDT [facility] UA Amorph 1+ /HPF 06/07/2025 9:08 PM EDT [facility] UA Bacteria Trace(A) Negative /HPF 06/07/2025 9:08 PM EDT [facility] Urine STRUCTURE OF URINARY TRACT PROPER / Unknown 06/07/2025 8:48 PM EDT 06/07/2025 8:59 PM EDT Viral Sargent V, DO URINE ORDERABLES Final Result Performing Organization Address [facility] Co de Phone Number [facility] [address] [place] [address] * (ABNORMAL) GLUCOSE METER POC (06/07/2025 4:47 PM EDT) Glucose Meter POC 114(H) 70 - 100 mg/dL 06/07/2025 4:48 PM EDT [facility] Sample Type Capillary 06/07/2025 4:48 PM EDT [facility] Patient Status Non-Critical Patient 06/07/2025 4:48 PM EDT [facility] Blood BLOOD SPECIMEN / Unknown 06/07/2025 4:47 PM EDT 06/07/2025 4:48 PM EDT Hugh Zamarripa MD POINT OF CARE TEST ORDER PEDRO LUIS Final Result Performing Organization Address [facility] Co de Phone Number [facility] [address] [place] [address] * (ABNORMAL) GLUCOSE METER POC (06/07/2025 11:49 AM EDT) Glucose Meter POC 207(H) 70 - 100 mg/dL 06/07/2025 11:51 AM EDT [facility] Sample Type Capillary 06/07/2025 11:51 AM EDT [facility] Patient Status Non-Critical Patient 06/07/2025 11:51 AM EDT [facility] Blood BLOOD SPECIMEN / Unknown 06/07/2025 11:49 AM EDT 06/07/2025 11:51 AM EDT Hugh Zamarripa MD POINT OF CARE TEST ORDER PEDRO LUIS Final Result Performing Organization Address City/[facility] Co de Phone Number [facility] [address] [place] [address] * (ABNORMAL) GLUCOSE METER POC (06/07/2025 7:50 AM EDT) [facility] Glucose Meter POC 135(H) 70 - 100 mg/dL 06/07/2025 7:52 AM EDT [facility] Sample Type Capillary 06/07/2025 7:52 AM EDT [facility] Patient Status Non-Critical Patient 06/07/2025 7:52 AM EDT [facility] Blood BLOOD SPECIMEN / Unknown 06/07/2025 7:50 AM EDT 06/07/2025 7:52 AM EDT Hugh Zamarripa MD POINT OF CARE TEST ORDER PEDRO LUIS Final Result Performing Organization Address [facility] de Phone Number [facility] [address] [place] [address] * XR HIP LEFT AP LATERAL W [...] office of the ordering clinician. us Viral Sargent V, DO IMG DIAGNOSTIC IMAGING ORDERAB LES Final Result * (ABNORMAL) CBC WITH DIFF (06/07/2025 5:09 AM EDT) WBC 11.3(H) 3.7 - 10.3 x10(3)/mcL 06/07/2025 5:11 AM EDT [facility] RBC 3.92 3.90 - 5.20 x10(6)/mcL 06/07/2025 5:11 AM EDT [facility] Hgb 11.8 11.2 - 15.7 g/dL 06/07/2025 5:11 AM EDT [facility] Hct 36.3 34.0 - 45.0 % 06/07/2025 5:11 AM EDT [facility] MCV 92.6 80.0 - 100.0 fL 06/07/2025 5:11 AM EDT [facility] MCH 30.1 26.0 - 34.0 pg 06/07/2025 5:11 AM EDT [facility] MCHC 32.5 30.7 - 35.5 g/dL 06/07/2025 5:[facility] RDW 12.5 <=14.9 % 06/07/2025 5:11 AM [facility] Platelet 341 155 - 369 x10(3)/mcL 06/07/2025 5:11 AM [facility] MPV 9.0 8.8 - 12.5 fL 06/07/2025 5:11 AM [facility] Neut Percent 79.0 % 06/07/2025 5:11 AM [facility] Comment:Neutrophils equals s egs plus bands Imm Gran% 0.4 % 06/07/2025 5:11 AM EDT [facility] Comment:Automated count of m etamyelocytes, myelocytes and promyelocytes. Lymph Percent 11.7 % 06/07/2025 5:11 AM EDT [facility] [place] Percent 6.9 % 06/07/2025 5:11 AM EDT [facility] Eos Percent 1.5 % 06/07/2025 5:11 AM EDT [facility] Baso Percent 0.5 % 06/07/2025 5:11 AM EDT [facility] Neut # 8.9(H) 1.6 - 6.1 x10(3)/mcL 06/07/2025 5:11 AM EDT [facility] Comment:Neutrophils equals s egs plus bands IMMGRAN# 0.0 0.0 - 0.1 x10(3)/mcL 06/07/2025 5:11 AM EDT [facility] Comment:Automated count of m etamyelocytes, myelocytes and promyelocytes. An absolute IG <0.1 is reported as 0.0. Lymph # 1.3 1.2 - 3.9 x10(3)/mcL 06/07/2025 5:11 AM EDT [facility] [place] # 0.8 0.3 - 0.9 x10(3)/mcL 06/07/2025 5:11 AM EDT [facility] Eos# 0.2 0.0 - 0.5 x10(3)/mcL 06/07/2025 5:11 AM EDT [facility] Baso # 0.1 0.0 - 0.1 x10(3)/mcL 06/07/2025 5:11 AM EDT [facility] Blood VENOUS BLOOD / Unknown Venipuncture / Unknown 06/07/2025 5:09 AM EDT 06/07/2025 5:09 AM EDT us Viral Sargent V, DO HEMATOLOGY ORDERABLES Final Re sult [facility] [address] [place] [address] * (ABNORMAL) BASIC METABOLIC PANEL (06/07/2025 5:09 AM EDT) Sodium 142 136 - 145 mmol/L 06/07/2025 5:30 AM EDT [facility] Potassium 3.3(L) 3.5 - 5.0 mmol/L 06/07/2025 5:30 AM EDT [facility] Chloride 104 98 - 107 mmol/L 06/07/2025 5:30 AM EDT [facility] Total CO2 28 22 - 29 mmol/L 06/07/2025 5:30 AM EDT [facility] Anion Gap 10 7 - 16 mmol/L 06/07/2025 5:30 AM T [facility] Calcium 8.7(L) 8.8 - 10.4 mg/dL 06/07/2025 5:30 AM EDT [facility] Glucose Lvl 143(H) 70 - 99 mg/dL 06/07/2025 5:30 AM EDT [facility] BUN 16 8 - 23 mg/dL 06/07/2025 5:30 AM T [facility] Creatinine 0.66 0.51 - 1.30 mg/dL 06/07/2025 5:30 AM [facility] eGFR (CKD-EPIcr 2020) 85 >=60 mL/min/1.7 3 m2 06/07/2025 5:30 AM T [facility] Comment:Estimated GFR was ca lculated using the CKD-EPIcr (2020) equation refit without race. The equation is recommended by the [employer] Kid[employer] - [place] [employer]ph[employer] Task Force. Blood VENOUS BLOOD / Unknown Venipuncture / Unknown 06/07/2025 5:09 AM EDT 06/07/2025 5:09 AM EDT us Viral Sargent V, DO CHEMISTRY ORDERABLES Final Res ult [facility] [address] [place] [address] * (ABNORMAL) GLUCOSE METER POC (06/06/2025 9:21 PM EDT) Glucose Meter POC 126(H) 70 - 100 mg/dL 06/06/2025 9:23 PM EDT [facility] Sample Type Capillary 06/06/2025 9:23 PM EDT [facility] Patient Status Non-Critical Patient 06/06/2025 9:23 PM EDT [facility] Blood BLOOD SPECIMEN / Unknown 06/06/2025 9:21 PM EDT 06/06/2025 9:23 PM EDT Hugh Zamarripa MD POINT OF CARE TEST ORDER PEDRO LUIS Final Result Performing Organization Address [facility] Co de Phone Number [facility] [address] [place] [address] * (ABNORMAL) GLUCOSE METER POC (06/06/2025 4:50 PM EDT) Glucose Meter POC 161(H) 70 - 100 mg/dL 06/06/2025 4:52 PM EDT [facility] Sample Type Capillary 06/06/2025 4:52 PM EDT [facility] Patient Status Non-Critical Patient 06/06/2025 4:52 PM EDT [facility] Blood BLOOD SPECIMEN / Unknown 06/06/2025 4:50 PM EDT 06/06/2025 4:52 PM EDT Result [facility] Hugh Zamarripa MD POINT OF CARE TEST ORDER PEDRO LUIS Final Result Performing Organization Address [facility] de Phone Number [facility] [address] [place] [address] * (ABNORMAL) GLUCOSE METER POC (06/06/2025 12:37 PM EDT) Glucose Meter POC 137(H) 70 - 100 mg/dL 06/06/2025 12:38 PM EDT [facility] Sample Type Capillary 06/06/2025 12:38 PM EDT [facility] Patient Status Non-Critical Patient 06/06/2025 12:38 PM EDT [facility] Blood BLOOD SPECIMEN / Unknown 06/06/2025 12:37 PM EDT 06/06/2025 12:38 PM EDT Hugh Zamarripa MD POINT OF CARE TEST ORDER PEDRO LUIS Final Result Performing Organization Address [facility] Co de Phone Number [facility] [address] [place] [address] * (ABNORMAL) GLUCOSE METER POC (06/06/2025 7:53 AM EDT) Glucose Meter POC 105(H) 70 - 100 mg/dL 06/06/2025 7:54 AM EDT [facility] Sample Type Capillary 06/06/2025 7:54 AM EDT [facility] Patient Status Non-Critical Patient 06/06/2025 7:54 AM EDT [facility] Blood BLOOD SPECIMEN / Unknown 06/06/2025 7:53 AM EDT 06/06/2025 7:54 AM EDT Hugh Zamarripa MD POINT OF CARE TEST ORDER PEDRO LUIS Final Result Performing Organization Address [facility] de Phone Number [facility] [address] [place] [address] * (ABNORMAL) BASIC METABOLIC PANEL (06/06/2025 5:26 AM EDT) Sodium 145 136 - 145 mmol/L 06/06/2025 5:48 AM EDT [facility] Potassium 3.1(L) 3.5 - 5.0 mmol/L 06/06/2025 5:48 AM EDT [facility] Chloride 104 98 - 107 mmol/L 06/06/2025 5:48 AM EDT [facility] Total CO2 29 22 - 29 mmol/L 06/06/2025 5:48 AM EDT [facility] Anion Gap 12 7 - 16 mmol/L 06/06/2025 5:48 AM EDT [facility] Calcium 8.8 8.8 - 10.4 mg/dL 06/06/2025 5:48 AM EDT [facility] Glucose Lvl 132(H) 70 - 99 mg/dL 06/06/2025 5:48 AM EDT [facility] BUN 18 8 - 23 mg/dL 06/06/2025 5:48 AM EDT [facility] Creatinine 0.67 0.51 - 1.30 mg/dL 06/06/2025 5:48 AM EDT [facility] eGFR (CKD-EPIcr 2020) 86 >=60 mL/min/1.7 3 m2 06/06/2025 5:48 AM EDT [facility] Comment:Estimated GFR was ca lculated using the CKD-EPIcr (2020) equation refit without race. The equation is recommended by the [employer] - [place] [employer] Neph[employer] Task Force. Blood VENOUS BLOOD / Unknown Venipuncture / Unknown 06/06/2025 5:26 AM EDT 06/06/2025 5:26 AM EDT us Viral Sargent V, DO CHEMISTRY ORDERABLES Final Res ult [facility] [address] [place] [address] * (ABNORMAL) CBC WITH DIFF (06/06/2025 5:26 AM EDT) WBC 11.9(H) 3.7 - 10.3 x10(3)/mcL 06/06/2025 5:30 AM EDT [facility] RBC 3.98 3.90 - 5.20 x10(6)/mcL 06/06/2025 5:30 AM EDT [facility] Hgb 12.0 11.2 - 15.7 g/dL 06/06/2025 5:30 AM EDT [facility] Hct 37.1 34.0 - 45.0 % 06/06/2025 5:30 AM EDT [facility] MCV 93.2 80.0 - 100.0 fL 06/06/2025 5:30 AM EDT [facility] MCH 30.2 26.0 - 34.0 pg 06/06/2025 5:30 AM EDT [facility] MCHC 32.3 30.7 - 35.5 g/dL 06/06/2025 5:30 AM EDT [facility] RDW 12.5 <=14.9 % 06/06/2025 5:30 AM [facility] Platelet 345 155 - 369 x10(3)/Health system 06/06/2025 5:30 AM [facility] MPV 9.1 8.8 - 12.5 fL 06/06/2025 5:30 AM [facility] Neut Percent 76.0 % 06/06/2025 5:30 AM [facility] Comment:Neutrophils equals s egs plus bands Imm Gran% 0.4 % 06/06/2025 5:30 AM [facility] Comment:Automated count of m etamyelocytes, myelocytes and promyelocytes. Lymph Percent 14.7 % 06/06/2025 5:30 AM [facility] [place] Percent 6.8 % 06/06/2025 5:30 AM [facility] Eos Percent 1.8 % 06/06/2025 5:30 AM [facility] Baso Percent 0.3 % 06/06/2025 5:30 AM [facility] Neut # 9.1(H) 1.6 - 6.1 x10(3)/Health system 06/06/2025 5:30 AM [facility] Comment:Neutrophils equals s egs plus bands IMMGRAN# 0.1 0.0 - 0.1 x10(3)/Health system 06/06/2025 5:30 AM [facility] Comment:Automated count of m etamyelocytes, myelocytes and promyelocytes. An absolute IG <0.1 is reported as 0.0. Lymph # 1.8 1.2 - 3.9 x10(3)/Health system 06/06/2025 5:30 AM [facility] [place] # 0.8 0.3 - 0.9 x10(3)/Health system 06/06/2025 5:30 AM [facility] Eos# 0.2 0.0 - 0.5 x10(3)/Health system 06/06/2025 5:30 AM [facility] Baso # 0.0 0.0 - 0.1 x10(3)/Health system 06/06/2025 5:30 AM [facility] Blood VENOUS BLOOD / Unknown Venipuncture / Unknown 06/06/2025 5:26 AM EDT 06/06/2025 5:26 AM EDT Viral Sargent V, DO HEMATOLOGY ORDERABLES Final Re sult [facility] [address] [place] [address] * (ABNORMAL) GLUCOSE METER POC (06/05/2025 8:23 PM EDT) Glucose Meter POC 184(H) 70 - 100 mg/dL 06/05/2025 8:25 PM EDT [facility] Sample Type Capillary 06/05/2025 8:25 PM EDT [facility] Patient Status Non-Critical Patient 06/05/2025 8:25 PM EDT [facility] Blood BLOOD SPECIMEN / Unknown 06/05/2025 8:23 PM EDT 06/05/2025 8:25 PM EDT Hugh Zamarripa MD POINT OF CARE TEST ORDER PEDRO LUIS Final Result Performing Organization Address [facility] de Phone Number [facility] [address] [place] [address] * (ABNORMAL) GLUCOSE METER POC (06/05/2025 5:14 PM EDT) Glucose Meter POC 151(H) 70 - 100 mg/dL 06/05/2025 5:15 PM EDT [facility] Sample Type Capillary 06/05/2025 5:15 PM EDT [facility] Patient Status Non-Critical Patient 06/05/2025 5:15 PM EDT [facility] Blood BLOOD SPECIMEN / Unknown 06/05/2025 5:14 PM EDT 06/05/2025 5:15 PM EDT Hugh Zamarripa MD POINT OF CARE TEST ORDER PEDRO LUIS Final Result Performing Organization Address City/[facility]/ZIP Co de Phone Number [facility] [address] [place] [address] * (ABNORMAL) GLUCOSE METER POC (06/05/2025 12:00 PM EDT) Glucose Meter POC 132(H) 70 - 100 mg/dL 06/05/2025 12:01 PM EDT [facility] Sample Type Capillary 06/05/2025 12:01 PM EDT [facility] Patient Status Non-Critical Patient 06/05/2025 12:01 PM EDT [facility] Blood BLOOD SPECIMEN / Unknown 06/05/2025 12:00 PM EDT 06/05/2025 12:01 PM EDT Hugh Zamarripa MD POINT OF CARE TEST ORDER PEDRO LUIS Final Result Performing Organization Address City/[facility]/ZIP Co de Phone Number [facility] [address] [place] [address] * (ABNORMAL) GLUCOSE METER POC (06/05/2025 7:52 AM EDT) Glucose Meter POC 157(H) 70 - 100 mg/dL 06/05/2025 7:53 AM EDT [facility] Sample Type Capillary 06/05/2025 7:53 AM EDT [facility] Patient Status Non-Critical Patient 06/05/2025 7:53 AM EDT [facility] Blood BLOOD SPECIMEN / Unknown 06/05/2025 7:52 AM EDT 06/05/2025 7:53 AM EDT Hugh Zmaarripa MD POINT OF CARE TEST ORDER PEDRO LUIS Final Result [facility] [address] [place] [address] * (ABNORMAL) GLUCOSE METER POC (06/04/2025 9:05 PM EDT) Glucose Meter POC 165(H) 70 - 100 mg/dL 06/04/2025 9:07 PM EDT [facility] Sample Type Capillary 06/04/2025 9:07 PM EDT [facility] Patient Status Non-Critical Patient 06/04/2025 9:07 PM EDT [facility] Blood BLOOD SPECIMEN / Unknown 06/04/2025 9:05 PM EDT 06/04/2025 9:07 PM EDT Hugh Zamarripa MD POINT OF CARE TEST ORDER PEDRO LUIS Final Result Performing Organization Address City/[facility]/ZIP Co de Phone Number [facility] [address] [place] [address] * (ABNORMAL) GLUCOSE METER POC (06/04/2025 5:06 PM EDT) Glucose Meter POC 124(H) 70 - 100 mg/dL 06/04/2025 5:08 PM EDT [facility] Sample Type Capillary 06/04/2025 5:08 PM EDT [facility] Patient Status Non-Critical Patient 06/04/2025 5:08 PM EDT [facility] Blood BLOOD SPECIMEN / Unknown 06/04/2025 5:06 PM EDT 06/04/2025 5:08 PM EDT Hugh Zamarripa MD POINT OF CARE TEST ORDER PEDRO LUIS Final Result Performing Organization Address City/[facility] Co de Phone Number [facility] [address] [place] [address] * (ABNORMAL) GLUCOSE METER POC (06/04/2025 12:01 PM EDT) Glucose Meter POC 199(H) 70 - 100 mg/dL 06/04/2025 12:02 PM EDT [facility] Sample Type Capillary 06/04/2025 12:02 PM EDT [facility] Patient Status Non-Critical Patient 06/04/2025 12:02 PM EDT [facility] Blood BLOOD SPECIMEN / Unknown 06/04/2025 12:01 PM EDT 06/04/2025 12:02 PM EDT Hugh Zamarripa MD POINT OF CARE TEST ORDER PEDRO LUIS Final Result Performing Organization Address City/[facility] de Phone Number [facility] [address] [place] [address] * (ABNORMAL) GLUCOSE METER POC (06/04/2025 8:52 AM EDT) Glucose Meter POC 164(H) 70 - 100 mg/dL 06/04/2025 8:54 AM EDT [facility] Sample Type Capillary 06/04/2025 8:54 AM EDT [facility] Patient Status Non-Critical Patient 06/04/2025 8:54 AM EDT [facility] Blood BLOOD SPECIMEN / Unknown 06/04/2025 8:52 AM EDT 06/04/2025 8:54 AM EDT Hugh Zamarripa MD POINT OF CARE TEST ORDER PEDRO LUIS Final Result Performing Organization Address [facility] de Phone Number [facility] [address] [place] [address] * (ABNORMAL) GLUCOSE METER POC (06/03/2025 8:26 PM EDT) Glucose Meter POC 236(H) 70 - 100 mg/dL 06/03/2025 8:28 PM EDT [facility] Sample Type Capillary 06/03/2025 8:28 PM EDT [facility] Patient Status Non-Critical Patient 06/03/2025 8:28 PM EDT [facility] Blood BLOOD SPECIMEN / Unknown 06/03/2025 8:26 PM EDT 06/03/2025 8:28 PM EDT Hugh Zamarripa MD POINT OF CARE TEST ORDER PEDRO LUIS Final Result Performing Organization Address City/[facility] Co de Phone Number [facility] [address] [place] [address] * (ABNORMAL) GLUCOSE METER POC (06/03/2025 4:49 PM EDT) Glucose Meter POC 158(H) 70 - 100 mg/dL 06/03/2025 4:50 PM EDT [facility] Sample Type Capillary 06/03/2025 4:50 PM EDT [facility] Patient Status Non-Critical Patient 06/03/2025 4:50 PM EDT [facility] Blood BLOOD SPECIMEN / Unknown 06/03/2025 4:49 PM EDT 06/03/2025 4:50 PM EDT Hugh Zamarripa MD POINT OF CARE TEST ORDER PEDRO LUIS Final Result Performing Organization Address City/[facility]/ZIP Co de Phone Number [facility] [address] [place] [address] * (ABNORMAL) GLUCOSE METER POC (06/03/2025 11:16 AM EDT) Glucose Meter POC 157(H) 70 - 100 mg/dL 06/03/2025 11:18 AM EDT [facility] Sample Type Capillary 06/03/2025 11:18 AM EDT [facility] Patient Status Non-Critical Patient 06/03/2025 11:18 AM EDT [facility] Blood BLOOD SPECIMEN / Unknown 06/03/2025 11:16 AM EDT 06/03/2025 11:18 AM EDT Hugh Zamarripa MD POINT OF CARE TEST ORDER PEDRO LUIS Final Result Performing Organization Address City/[facility]/ZIP Co de Phone Number [facility] [address] [place] [address] * (ABNORMAL) GLUCOSE METER POC (06/03/2025 8:00 AM EDT) Glucose Meter POC 182(H) 70 - 100 mg/dL 06/03/2025 8:01 AM EDT [facility] Sample Type Capillary 06/03/2025 8:01 AM EDT [facility] Patient Status Non-Critical Patient 06/03/2025 8:01 AM EDT [facility] Blood BLOOD SPECIMEN / Unknown 06/03/2025 8:00 AM EDT 06/03/2025 8:01 AM EDT Hugh Zamarripa MD POINT OF CARE TEST ORDER PEDRO LUIS Final Result Performing Organization Address City/[facility]/ZIP Co de Phone Number [facility] [address] [place] [address] * (ABNORMAL) GLUCOSE METER POC (06/02/2025 9:00 PM EDT) Glucose Meter POC 192(H) 70 - 100 mg/dL 06/02/2025 9:02 PM EDT [facility] Sample Type Capillary 06/02/2025 9:02 PM EDT [facility] Patient Status Non-Critical Patient 06/02/2025 9:02 PM EDT [facility] Blood BLOOD SPECIMEN / Unknown 06/02/2025 9:00 PM EDT 06/02/2025 9:02 PM EDT Hugh Zamarripa MD POINT OF CARE TEST ORDER PEDRO LUIS Final Result Performing Organization Address [facility] Co de Phone Number [facility] [address] [place] [address] * (ABNORMAL) GLUCOSE METER POC (06/02/2025 4:25 PM EDT) Glucose Meter POC 131(H) 70 - 100 mg/dL 06/02/2025 4:27 PM EDT [facility] Sample Type Capillary 06/02/2025 4:27 PM EDT [facility] Patient Status Non-Critical Patient 06/02/2025 4:27 PM EDT [facility] Blood BLOOD SPECIMEN / Unknown 06/02/2025 4:25 PM EDT 06/02/2025 4:27 PM EDT Hugh Zamarripa MD POINT OF CARE TEST ORDER PEDRO LUIS Final Result Performing Organization Address City/[facility]/ZIP Co de Phone Number [facility] [address] [place] [address] * (ABNORMAL) GLUCOSE METER POC (06/02/2025 12:17 PM EDT) Glucose Meter POC 139(H) 70 - 100 mg/dL 06/02/2025 12:19 PM EDT [facility] Sample Type Capillary 06/02/2025 12:19 PM EDT [facility] Patient Status Non-Critical Patient 06/02/2025 12:19 PM EDT [facility] Blood BLOOD SPECIMEN / Unknown 06/02/2025 12:17 PM EDT 06/02/2025 12:19 PM EDT Hugh Zamarripa MD POINT OF CARE TEST ORDER PEDRO LUIS Final Result [facility] [address] [place] [address] * (ABNORMAL) GLUCOSE METER POC (06/02/2025 8:30 AM EDT) Glucose Meter POC 185(H) 70 - 100 mg/dL 06/02/2025 8:32 AM EDT [facility] Sample Type Capillary 06/02/2025 8:32 AM EDT [facility] Patient Status Non-Critical Patient 06/02/2025 8:32 AM EDT [facility] Blood BLOOD SPECIMEN / Unknown 06/02/2025 8:30 AM EDT 06/02/2025 8:32 AM EDT Hugh Zamarripa MD POINT OF CARE TEST ORDER PEDRO LUIS Final Result [facility] [address] [place] [address] * (ABNORMAL) GLUCOSE METER POC (06/01/2025 8:00 PM EDT) Glucose Meter POC 251(H) 70 - 100 mg/dL 06/01/2025 8:04 PM EDT [facility] Sample Type Capillary 06/01/2025 8:04 PM EDT [facility] Patient Status Non-Critical Patient 06/01/2025 8:04 PM EDT [facility] Blood BLOOD SPECIMEN / Unknown 06/01/2025 8:00 PM EDT 06/01/2025 8:04 PM EDT Hugh Zamarripa MD POINT OF CARE TEST ORDER PEDRO LUIS Final Result Performing Organization Address [facility]/ZIP Co de Phone Number [facility] [address] [place] [address] * (ABNORMAL) GLUCOSE METER POC (06/01/2025 4:41 PM EDT) Glucose Meter POC 247(H) 70 - 100 mg/dL 06/01/2025 4:43 PM EDT [facility] Sample Type Capillary 06/01/2025 4:43 PM EDT [facility] Patient Status Non-Critical Patient 06/01/2025 4:43 PM EDT [facility] Blood BLOOD SPECIMEN / Unknown 06/01/2025 4:41 PM EDT 06/01/2025 4:43 PM EDT Hugh Zamarripa MD POINT OF CARE TEST ORDER PEDRO LUIS Final Result Performing Organization Address [facility] Co de Phone Number [facility] [address] [place] [address] * (ABNORMAL) GLUCOSE METER POC (06/01/2025 12:17 PM EDT) Glucose Meter POC 235(H) 70 - 100 mg/dL 06/01/2025 12:19 PM EDT [facility] Sample Type Capillary 06/01/2025 12:19 PM EDT [facility] Patient Status Non-Critical Patient 06/01/2025 12:19 PM EDT [facility] Blood BLOOD SPECIMEN / Unknown 06/01/2025 12:17 PM EDT 06/01/2025 12:19 PM EDT Hugh Zamarripa MD POINT OF CARE TEST ORDER PEDRO LUIS Final Result Performing Organization Address City/[facility]/ZIP Co de Phone Number [facility] [address] [place] [address] * (ABNORMAL) GLUCOSE METER POC (06/01/2025 8:36 AM EDT) Glucose Meter POC 242(H) 70 - 100 mg/dL 06/01/2025 8:37 AM EDT [facility] Sample Type Capillary 06/01/2025 8:37 AM EDT [facility] Patient Status Non-Critical Patient 06/01/2025 8:37 AM EDT [facility] Blood BLOOD SPECIMEN / Unknown 06/01/2025 8:36 AM EDT 06/01/2025 8:37 AM EDT Hugh Zamarripa MD POINT OF CARE TEST ORDER PEDRO LUIS Final Result Performing Organization Address [facility] Co de Phone Number [facility] [address] [place] [address] * (ABNORMAL) GLUCOSE METER POC (05/31/2025 8:03 PM EDT) Glucose Meter POC 202(H) 70 - 100 mg/dL 05/31/2025 8:04 PM EDT [facility] Sample Type Capillary 05/31/2025 8:04 PM EDT [facility] Patient Status Non-Critical Patient 05/31/2025 8:04 PM EDT [facility] Blood BLOOD SPECIMEN / Unknown 05/31/2025 8:03 PM EDT 05/31/2025 8:04 PM EDT Hugh Zamarripa MD POINT OF CARE TEST ORDER PEDRO LUIS Final Result Performing Organization Address City/[facility]/ZIP Co de Phone Number [facility] [address] [place] [address] * PARTIAL THROMBOPLASTIN TIME (05/31/2025 4:43 PM EDT) PTT 31.8 25.7 - 36.8 second(s) 05/31/2025 4:58 PM EDT [facility] Comment: Therapeutic range for unfractionated heparin: [...] ORDERABLES Fi nal Result Performing Organization Address [facility] de Phone Number [facility] [address] [place] [address] * (ABNORMAL) PT / INR (05/31/2025 4:43 PM EDT) PT 13.7(H) 10.5 - 13.6 second(s) 05/31/2025 4:58 PM EDT [facility] INR 1.19(H) 0.91 - 1.18 (ratio) 05/31/2025 4:58 PM EDT [facility] Comment: Level of Therapy Indications Target INR Range Standard Dose Treatment and prophylaxis of venous 2.0 - 3.0 thrombosis, pulmonary embolism High Dose High risk patients with mechanical 2.5 - 3.5 heart valves Blood VENOUS BLOOD / Unknown Venipuncture / Unknown 05/31/2025 4:43 PM EDT 05/31/2025 4:47 PM EDT Hugh Zamarripa MD HEMATOLOGY ORDERABLES Fi nal Result Performing Organization Address [facility] de Phone Number [facility] [address] [place] [address] * (ABNORMAL) CBC WITH DIFF (05/31/2025 4:43 PM EDT) [facility] Signature WBC 11.6(H) 3.7 - 10.3 x10(3)/mcL 05/31/2025 4:51 PM EDT [facility] RBC 4.09 3.90 - 5.20 x10(6)/mcL 05/31/2025 4:51 PM EDT [facility] Hgb 12.1 11.2 - 15.7 g/dL 05/31/2025 4:51 PM EDT [facility] Hct 38.3 34.0 - 45.0 % 05/31/2025 4:[facility] MCV 93.6 80.0 - 100.0 fL 05/31/2025 4:51 PM EDT [facility] MCH 29.6 26.0 - 34.0 pg 05/31/2025 4:[facility] MCHC 31.6 30.7 - 35.5 g/dL 05/31/2025 4:51 PM EDT [facility] RDW 12.1 <=14.9 % 05/31/2025 4:[facility] Platelet 291 155 - 369 x10(3)/mcL 05/31/2025 4:51 PM EDT [facility] MPV 9.2 8.8 - 12.5 fL 05/31/2025 4:51 PM EDT [facility] Neut Percent 71.9 % 05/31/2025 4:51 PM EDT [facility] Comment:Neutrophils equals s egs plus bands Imm Gran% 0.2 % 05/31/2025 4:[facility] Comment:Automated count of m etamyelocytes, myelocytes and promyelocytes. Lymph Percent 13.9 % 05/31/2025 4:51 PM EDT [facility] [place] Percent 12.8 % 05/31/2025 4:51 PM EDT [facility] Eos Percent 0.9 % 05/31/2025 4:51 PM EDT [facility] Baso Percent 0.3 % 05/31/2025 4:[facility] Neut # 8.3(H) 1.6 - 6.1 x10(3)/Health system 05/31/2025 4:51 PM EDT [facility] Comment:Neutrophils equals s egs plus bands IMMGRAN# 0.0 0.0 - 0.1 x10(3)/Health system 05/31/2025 4:51 PM EDT [facility] Comment:Automated count of m etamyelocytes, myelocytes and promyelocytes. An absolute IG <0.1 is reported as 0.0. Lymph # 1.6 1.2 - 3.9 x10(3)/Health system 05/31/2025 4:51 PM EDT [facility] [place] # 1.5(H) 0.3 - 0.9 x10(3)/Health system 05/31/2025 4:51 PM EDT [facility] Eos# 0.1 0.0 - 0.5 x10(3)/Health system 05/31/2025 4:51 PM EDT [facility] Baso # 0.0 0.0 - 0.1 x10(3)/Health system 05/31/2025 4:51 PM EDT [facility] Blood VENOUS BLOOD / Unknown Venipuncture / Unknown 05/31/2025 4:43 PM EDT 05/31/2025 4:47 PM EDT Hugh Zamarripa MD HEMATOLOGY ORDERABLES Fi nal Result [facility] [address] [place], [place] [id number] * (ABNORMAL) GLUCOSE METER POC (05/31/2025 4:37 PM EDT) [facility] Glucose Meter POC 175(H) 70 - 100 mg/dL 05/31/2025 4:40 PM EDT [facility] Sample Type Capillary 05/31/2025 4:40 PM EDT [facility] Patient Status Non-Critical Patient 05/31/2025 4:40 PM EDT [facility] Blood BLOOD SPECIMEN / Unknown 05/31/2025 4:37 PM EDT 05/31/2025 4:40 PM EDT Hugh Zamarripa MD POINT OF CARE TEST ORDER PEDRO LUIS Final Result Performing Organization Address City/[facility] Co de Phone Number [facility] [address] [place] [address] * (ABNORMAL) GLUCOSE METER POC (05/31/2025 11:41 AM EDT) Glucose Meter POC 195(H) 70 - 100 mg/dL 05/31/2025 11:42 AM EDT [facility] Sample Type Capillary 05/31/2025 11:42 AM EDT [facility] Patient Status Non-Critical Patient 05/31/2025 11:42 AM EDT [facility] Blood BLOOD SPECIMEN / Unknown 05/31/2025 11:41 AM EDT 05/31/2025 11:42 AM EDT Hugh Zamarripa MD POINT OF CARE TEST ORDER PEDRO LUIS Final Result Performing Organization Address [facility] de Phone Number [facility] [address] [place] [address] * (ABNORMAL) GLUCOSE METER POC (05/31/2025 8:12 AM EDT) Glucose Meter POC 233(H) 70 - 100 mg/dL 05/31/2025 8:13 AM EDT [facility] Sample Type Capillary 05/31/2025 8:13 AM EDT [facility] Patient Status Non-Critical Patient 05/31/2025 8:13 AM EDT [facility] Blood BLOOD SPECIMEN / Unknown 05/31/2025 8:12 AM EDT 05/31/2025 8:13 AM EDT Hugh Zamarripa MD POINT OF CARE TEST ORDER PEDRO LUIS Final Result Performing Organization Address City/[facility] Co de Phone Number [facility] [address] [place] [address] * (ABNORMAL) GLUCOSE METER POC (05/30/2025 7:58 PM EDT) Glucose Meter POC 272(H) 70 - 100 mg/dL 05/30/2025 8:01 PM EDT [facility] Sample Type Capillary 05/30/2025 8:01 PM EDT [facility] Patient Status Non-Critical Patient 05/30/2025 8:01 PM EDT [facility] Blood BLOOD SPECIMEN / Unknown 05/30/2025 7:58 PM EDT 05/30/2025 8:01 PM EDT Hugh Zamarripa MD POINT OF CARE TEST ORDER PEDRO LUIS Final Result Performing Organization Address City/[facility]/ZIP Co de Phone Number [facility] [address] [place] [address] * (ABNORMAL) GLUCOSE METER POC (05/30/2025 5:07 PM EDT) Glucose Meter POC 269(H) 70 - 100 mg/dL 05/30/2025 5:09 PM EDT [facility] Sample Type Capillary 05/30/2025 5:09 PM EDT [facility] Patient Status Non-Critical Patient 05/30/2025 5:09 PM EDT [facility] Blood BLOOD SPECIMEN / Unknown 05/30/2025 5:07 PM EDT 05/30/2025 5:09 PM EDT Hugh Zamarripa MD POINT OF CARE TEST ORDER PEDRO LUIS Final Result Performing Organization Address City/[facility]/ZIP Co de Phone Number [facility] [address] [place] [address] * CT ABDOMEN PELVIS HEMATURIA/RENAL MASS PROTOCOL [...] contactthe office of the ordering clinician. us Hugh Zamarripa MD IMG CT ORDERABLES Final Result * CREATININE ISTAT (05/30/2025 1:26 PM EDT) Creatinine-iST AT 0.9 0.6 - 1.3 mg/dL 05/30/2025 1:28 PM EDT [facility] Blood BLOOD SPECIMEN / Unknown 05/30/2025 1:26 PM EDT 05/30/2025 1:28 PM EDT Hugh Zamarripa MD POINT OF CARE TEST ORDER PEDRO LUIS Final Result Performing Organization Address City/[facility]/ZIP Co de Phone Number [facility] [address] [place] [address] * (ABNORMAL) GLUCOSE METER POC (05/30/2025 9:02 AM EDT) Glucose Meter POC 272(H) 70 - 100 mg/dL 05/30/2025 9:03 AM EDT [facility] Sample Type Capillary 05/30/2025 9:03 AM EDT [facility] Patient Status Non-Critical Patient 05/30/2025 9:03 AM EDT [facility] Blood BLOOD SPECIMEN / Unknown 05/30/2025 9:02 AM EDT 05/30/2025 9:03 AM EDT Hugh Zamarripa MD POINT OF CARE TEST ORDER PEDRO LUIS Final Result Performing Organization Address City/[facility]/ZIP Co de Phone Number [facility] [address] [place] [address] * (ABNORMAL) GLUCOSE METER POC (05/29/2025 9:25 PM EDT) Glucose Meter POC 214(H) 70 - 100 mg/dL 05/29/2025 9:26 PM EDT [facility] Sample Type Capillary 05/29/2025 9:26 PM EDT [facility] Patient Status Non-Critical Patient 05/29/2025 9:26 PM EDT [facility] Blood BLOOD SPECIMEN / Unknown 05/29/2025 9:25 PM EDT 05/29/2025 9:26 PM EDT Hugh Zamarripa MD POINT OF CARE TEST ORDER PEDRO LUIS Final Result [facility] [address] [place] [address] documented in this encounter Visit Diagnoses Diagnosis Fractured hip, left, closed, initial encounter (HCC)- Primary Resides in custodial facility 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 Pneumonia due to infectious organism, unspecified laterality, unspecified part of lung Closed fracture of left femur with routine healing, unspecified fracture morphology, unspecified portion of femur, subsequent encounter Type 2 diabetes mellitus without complication, without long-term current use of insulin (HCC) Prophylactic measure Thrush Candidiasis of mouth Excoriation [...] Unspecified essential hypertension 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 Resides in custodial facilityIndications:R esides in custodial facility Given 06/09/2025 11:23 AM EDT 650 [...] Discontinued, Dx: 1. 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Indications:C oronary artery disease involving jamul coronary artery of jamul heart without angina pectoris Given 06/12/2025 9:09 AM EDT 81 mg cholecalciferol (vitamin D3) tablet 1,000 Units 1,000 Units, Oral, DAILY, First dose on Thu05/30/25 at 0900, Until Discontinued, Dx: 1. Resides in custodial facilityIndications:R esides in custodial facility Given 06/12/2025 9:10 AM EDT 1,000 Units citalopram (CeleXA) tablet 5 mg 5 mg, Oral, 2 TIMES DAILY, First dose on Thu05/29/25 at 2115, Until Discontinued, Dx: 1. Resides in custodial facilityIndications:m lazarus depressive disorder Given 06/12/2025 9:10 AM EDT 5 mg clopidogreL (PLAVIX) tablet 75 mg 75 mg, Oral, DAILY, First dose on Thu05/30/25 at 0900, Until Discontinued, Dx: 1. 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Indications:C oronary artery disease involving jamul coronary artery of jamul heart without angina pectoris Given 06/12/2025 9:09 [...] without long-term current use of insulin (HCC) enoxaparin (LOVENOX) injection 40 mg 40 mg, Subcutaneous, DAILY - LMWH/Xa, First dose on Thu05/30/25 at 0745, Until Discontinued, Dx: 1. Resides in custodial facilityIndications:R esides in custodial facility Given 05/31/2025 11:47 AM EDT 40 mg Abdominal Tissue fluocinonide (LIDEX) 0.05 % cream Topical, 2 TIMES DAILY PRN, Starting on Thu05/30/25 at 0607, Until Thu06/12/25 at 1525, Other, skin irritation, Application site: skin irritation, Dx: 1. Resides in custodial facilityIndications:R esides in custodial facility fosfomycin (MONUROL) packet 3 g 3 [...] for IV use. Supplied by Nutrition ServicesIndications:R esides in custodial facility,Closed fracture of left femur with routine [...] AT MEALTIME AND BEDTIME, First dose on Thu05/30/25 at 1800, Until Discontinued, PO Diet: Obtain [...] BEDTIME, First dose (after last modification) on [place] 06/04/25 at 1800, Until Discontinued, Blood Glucose [...] Subcutaneous, EVERY EVENING (INSULIN), First dose on [facility] 06/01/25 at 1900, Until Discontinued, A blood sugar is not required prior to administering the Lantus dose. Assess the trend of blood sugars within the last 24 hours. If 2 out of 3 blood sugars are less than (<) 120, contact pharmacy to decrease the total Lantus dose by 20%. Waste Sort Code = BKC, Dx: 1. Type 2 diabetes mellitus without [...] use. Supplied by Nutrition ServicesIndications:R capri in custodial facility,Closed fracture of left femur with routine [...] infectious organism, unspecified laterality, unspecified part of lungIndications:debbi rial pneumonia Given 06/02/2025 8:46 AM EDT 750 mg losartan (COZAAR) tablet 100 mg 100 mg, Oral, DAILY, First dose on Thu05/30/25 at 0900, Until Discontinued, Therapeutic Interchange for Irbesartan (AVAPRO) 300mg tab , Dx: 1. 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Indications:C oronary artery disease involving jamul coronary artery of jamul heart without angina pectoris Given 06/12/2025 9:07 [...] at 1525, Sleep, Dx: 1. Resides in custodial facilityIndications:R esides in custodial facility Given 06/10/2025 9:52 PM EDT 5 mg metFORMIN (GLUCOPHAGE XR) ER tablet 500 mg 500 mg, Oral, 2 TIMES DAILY WITH MEALS, First dose on Thu05/30/25 at 0800, Until Discontinued, Take with food., Dx: 1. Resides in custodial facilityIndications:t ype 2 diabetes mellitus Given 06/12/2025 9:10 AM EDT 500 mg metoprolol (LOPRESSOR) tablet 25 mg 25 mg, Oral, 2 TIMES DAILY, First dose on Thu05/29/25 at 2115, Until Discontinued, Preferably taken with or immediately following meals. Take consistently with relation to food., Dx: 1. Resides in custodial facilityIndications:h ypertension Given 06/12/2025 9:08 AM EDT [...] crush or chew, Dx: 1. Resides in custodial facilityIndications:h eartburn Given 06/11/2025 8:43 PM EDT [...] unrelieved by Senokot-S, Dx: 1. Resides in custodial facilityIndications:R esides in custodial facility potassium chloride (KLOR-CON) tablet 20 mEq [...] WITH MEALS, 2 doses, First dose on Thu06/10/25 at 1800, Last dose on Thu06/11/25 at 0800, Dx: 1. HypokalemiaIndication s:Hypokalemia Given 06/10/2025 5:59 PM EDT 40 mEq rosuvastatin (CRESTOR) tablet 5 mg 5 mg, Oral, NIGHTLY, First dose on Thu05/29/25 at 2115, Until Discontinued, Dx: 1. Resides in custodial facilityIndications:R esides in custodial facility Given 06/11/2025 8:43 PM EDT 5 mg Saccharomyces boulardii (FLORASTOR) capsule 250 mg 250 mg, Oral, 2 TIMES DAILY, First dose on Thu05/30/25 at 0900, Until Discontinued, If for feeding tube administration, open capsule/packet outside of patient's room and dissolve contents in 8-12 oz. of liquid, Dx: 1. Resides in custodial facilityIndications:R esides in custodial facility Given 06/12/2025 9:10 AM EDT 250 mg senna-docusate (SENOKOT-S) 8.6-50 mg per tablet 2 Tablet 2 Tablet, Oral, 2 TIMES DAILY PRN, Starting on Thu05/29/25 at 1833, Until Thu06/12/25 at 1525, Constipation, Use first for constipation, Dx: 1. Resides in custodial facilityIndications:R esides in custodial facility sodium chloride 0.9 % 250 mL IV bolus Intravenous, ONCE, 1 dose, On Thu06/10/25 at 2145, at 483.9 mL/hr, Dx: 1. [...] 48 hours Indications: pneumonia caused by bacteria 5 metFORMIN (GLUCOPHAGE XR) 500 mg Oral ER [...] morphology, unspecified portion of femur, subsequent encounter 0327 (Given - Provider: Beau Rm RN)1246 (Given - Provider: Janet Porras RN)2150 (Given - Provider: Stephany Lopez LPN) 0626 (Given - Provider: Stephany Lopez LPN)1416 (Not Given - Provider: Janet Porras RN - Reason: Patient Declined)2200 (Not Given - Provider: Stephany Lopez LPN - Reason: Other - Comment: PRN dose of [place] given prior) 0601 (Given - Provider: Stephany Lopez LPN) acetaminophen [...] 0800, Until Discontinued, Administered by [facility]. 08 (Not Given - Provider: Clarisa Strong SENIOR COPYWRITER - Reason: Patient not available)0835 (Not Given - Provider: Clarisa Strong SENIOR COPYWRITER - Reason: Patient not available)0851 (Given - Provider: Clarisa Strong SENIOR COPYWRITER)1104 (Given - Provider: Clarisa Strong SENIOR COPYWRITER - Comment: Pt. requested tx)1601 (Given - Provider: Clarisa Strong SENIOR COPYWRITER)2007 (Given - Provider: Kristian Arce SENIOR COPYWRITER) 0900 (Given - Provider: Clarisa Strong SENIOR COPYWRITER)1236 (Not Given - Provider: Clarisa Strong SENIOR COPYWRITER - Reason: Patient not available - Comment: eating)1252 (Not Given - Provider: Clarisa Strong SENIOR COPYWRITER - Reason: Patient Declined - Comment: confused, strongly refused tx.)1637 (Given - Provider: Clarisa Strong SENIOR COPYWRITER)205 (Given - Provider: Kristian Arce SENIOR COPYWRITER) 0809 (Given - Provider: Chery Benites) aspirin chewable tablet 81 mg 81 mg, Oral, DAILY, First dose on Thu05/30/25 at 0900, Until Discontinued, Dx: 1. 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 Resides in custodial facility 0820 (Given - Provider: Janet Porras RN) 0933 (Given - Provider: Janet Porras RN) 0910 (Given - Provider: Riki Khan, RN) citalopram (CeleXA) tablet 5 mg 5 mg, Oral, 2 TIMES DAILY, First dose on Thu05/29/25 at 2115, Until Discontinued, Dx: 1. Resides in custodial facility 0822 (Given - Provider: Janet Porras RN)2151 (Given - Provider: Stephany Lopez LPN) 0933 (Given - Provider: Janet Porras RN)2043 (Given - Provider: Stephnay Lopez LPN) 09 (Given - Provider: Riki Khan, SANTOS) clopidogreL (PLAVIX) tablet 75 mg 75 mg, Oral, DAILY, First dose on Thu05/30/25 at 0900, Until Discontinued, Dx: 1. 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 Other fatigue 09 (Given - Provider: Janet Porras RN) 941 (Given - Provider: Janet Porras RN) 09 (Given - Provider: Riki Khan RN) GLUCERNA Therapeutic oral supplement 1 'box' 1 [...] Patient Declined) 0912 (Given - Provider: Riki Khan RN) insulin aspart U-100 (NovoLOG) injection 0-40 Units(Linked Group 2) 0-40 Units, Subcutaneous, 4 TIMES DAILY AT MEALTIME AND BEDTIME, First dose (after last modification) on 06/04/25 at 1800, Until Discontinued, PO Diet: Obtain [...] Janet Porras RN)2100 (Hold - Provider: Stephany Lopze LPN - Reason: Contraindicated) 0800 (Not Given - Provider: Riki Khan RN - Reason: Order parameters not met) insulin glargine U-100 (LANTUS) injection 10 Units 10 Units, Subcutaneous, EVERY EVENING (INSULIN), First dose on Joana 06/01/25 at 1900, Until Discontinued, A blood sugar is not required prior to administering the Lantus dose. Assess the trend of blood sugars within the last 24 hours. If 2 out of 3 blood sugars are less than (<) 120, contact pharmacy to decrease the total Lantus dose by 20%. Waste Sort Code = [facility], Dx: 1. Type 2 diabetes mellitus without complication, without long-term current use of insulin ([facility]) 1800 (Given - Provider: Janet Porras RN) 1811 (Given - Provider: Janet Porras RN) PRABHAKAR powder oral supplement 1 Packet 1 Packet, Oral, 2 TIMES DAILY WITH MEALS (NUTR), First dose on Joana 06/01/25 at 1800, Until Discontinued, ORANGE Mix 1 [...] Patient Declined) 09 (Given - Provider: Riki Khan, SANTOS) losartan (COZAAR) tablet 100 mg 100 mg, Oral, DAILY, First dose on Thu05/30/25 at 0900, Until Discontinued, Therapeutic Interchange for Irbesartan (AVAPRO) 300mg tab , Dx: 1. 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 Hypomagnesemia 932 (Given - Provider: Janet Porras RN)2042 (Given - Provider: Stephany Lopez LPN) 909 (Given - Provider: Riki Khan RN) magnesium sulfate in dextrose 5% infusion 1 g (COMPLETED)(Linked Group 3) 1 g, Intravenous, at 100 mL/hr, EVERY HOUR SCHEDULED, 1 dose, First dose on Thu06/10/25 at 1600, Infuse 2 x Magnesium Sulfate 1 g IVPB for a total dose of 2 g Magnesium Sulfate, Dx: 1. Hypokalemia 2. Hypomagnesemia 1745 (IV Started - Provider: Janet Porras RN)1843 [...] Lopez LPN)1944 (Stopped - Provider: Stephany Lopez LPN)1946 (Stopped - Provider: Janet Porras RN) metFORMIN (GLUCOPHAGE XR) ER tablet 500 mg 500 mg, Oral, 2 TIMES DAILY WITH MEALS, First dose on Thu05/30/25 at 0800, Until Discontinued, Take with food., Dx: 1. Resides in custodial facility 0819 (Given - Provider: Janet Porras RN)1755 (Given - Provider: Janet Porras RN) 0933 (Given - Provider: Janet Porras RN)175 (Given - Provider: Janet Porras RN) 09 (Given - Provider: Riki Khan, SANTOS) metoprolol (LOPRESSOR) tablet 25 mg 25 mg, Oral, 2 TIMES DAILY, First dose on Thu05/29/25 at 2115, Until Discontinued, Preferably taken with or immediately following meals. Take consistently with relation to food., Dx: 1. Resides in custodial facility 0820 (Given - Provider: Janet Porras RN)2151 (Given - Provider: Stephany Lopez LPN) 09 (Given - Provider: Janet Porras RN)2043 (Given - Provider: Stephany Lopez LPN) 0908 (Given - Provider: Riki Khan, SANTOS) miconazole (MICATIN) 2 % powder Topical, 2 TIMES DAILY, 84 doses, First dose on Thu06/08/25 at 1045, Last dose on Thu07/19/25 at 2100, Application site: [facility], Dx: 1. Excoriation 0836 (Given - Provider: Janet Porras RN) 003 (Given - Provider: Stephany Lopez LPN)0935 (Given - Provider: Janet Porras RN)2051 (Given - Provider: Stephany Lopez LPN) 09 (Given - Provider: Riki Khan, SANTOS) nystatin (MYCOSTATIN) 100,000 unit/mL suspension 500,000 Units [...] Provider: Janet Porras RN - Reason: Patient Declined)2100 (Given - Provider: Stephany Lopez LPN) 0941 (Given - Provider: Janet Porras RN)1300 (Not Given - Provider: Janet Porras RN - Reason: Patient Declined)1700 (Not Given - Provider: Janet Porras RN - Reason: Patient Declined)2041 (Given - Provider: Stephany Lopez LPN) 0918 (Given - Provider: Riki Khan RN) pantoprazole (PROTONIX) tablet 40 mg 40 mg, Oral, DAILY, First dose on Thu05/29/25 at 2200, Until Discontinued, Do not crush or chew, Dx: 1. Resides in custodial facility 2151 (Given - Provider: Stephany Lopez LPN) 2042 (Given - Provider: Stephany Lopez LPN) petrolatum-zinc oxide (TRIAD) topical paste Topical, DAILY, First dose on Thu06/07/25 at 0945, Until Discontinued 0835 (Given - Provider: Janet Porras RN) 0931 (Given - Provider: Janet Porras RN) 0918 (Given - Provider: Riki Khan, RN) potassium chloride (KLOR-CON) tablet 40 mEq () 40 mEq, Oral, 2 TIMES DAILY WITH MEALS, 2 doses, First dose on 06/10/25 at 1800, Last dose on 06/11/25 at 0800, Dx: 1. Hypokalemia 1759 (Given - Provider: Janet Porras RN) 1200 (Not Given - Provider: Janet Porras RN - Reason: Patient Declined) rosuvastatin (CRESTOR) tablet 5 mg 5 mg, Oral, NIGHTLY, First dose on Thu05/29/25 at 2115, Until Discontinued, Dx: 1. Resides in custodial facility 2151 (Given - Provider: Stephany Lopez LPN) 2042 (Given - Provider: Stephany Lopez LPN) Saccharomyces boulardii (FLORASTOR) capsule 250 mg 250 mg, Oral, 2 TIMES DAILY, First dose on Thu05/30/25 at 0900, Until Discontinued, If for feeding tube administration, open capsule/packet outside of patient's room and dissolve contents in 8-12 oz. of liquid, Dx: 1. Resides in custodial facility 0820 (Given - Provider: Janet Porras, SANTOS)2151 (Given - Provider: Stephany Lopez LPN) 932 [...] RN)2250 (IV Restarted - Provider: Larissa Ruff RN)225 (Rate/Dose Verify - Provider: Larissa Ruff RN)225 (Rate/Dose Verify - Provider: Larissa Ruff RN) 002 (Rate/Dose Change - Provider: Stephany Lopez LPN)0033 (New Bag - Provider: Stephany Lopez LPN)0814 (Stopped - Provider: Janet Porras RN - Comment: [Order ends at this time. Document the following action when infusion is complete: Stopped]) PRN Medication Order 06/10/2025 06/11/2025 06/12/2025 albuterol (PROVENTIL) nebulizer solution 2.5 mg(Linked Group 1) 2.5 mg, Nebulization, PRN, Starting on Joana [...] without long-term current use of insulin (HCC) fluocinonide (LIDEX) 0.05 % cream Topical, 2 TIMES DAILY PRN, Starting on Thu05/30/25 at 0607, Until Thu06/12/25 at 1525, Other, skin irritation, Application site: skin irritation, Dx: 1. Resides in custodial facility glucagon (GLUCAGEN) injection 1 mg(Linked Group [...] complication, without long-term current use of insulin ([facility]) HYDROcodone-acetaminophen (NORCO) 5-325 mg per tablet 1 [...] at 1525, Sleep, Dx: 1. Resides in custodial facility 2151 (Given - Provider: Stephany Lopez LPN) ondansetron (ZOFRAN) injection 4 mg(Linked Group 5) 4 mg, Intravenous, EVERY 6 HOURS PRN, Starting on Thu05/31/25 at 1259, Until Thu06/12/25 at 1525, Nausea, Dx: 1. Prophylactic measure 141 (See Alternative - Provider: Janet Porras RN) ondansetron (ZOFRAN-ODT) disintegrating tablet 4 mg(Linked Group 5) 4 mg, Oral, EVERY 6 HOURS PRN, Starting on Thu05/31/25 at 1259, Until Thu06/12/25 at 1525, Nausea, Dissolve in mouth, Dx: 1. Prophylactic measure 1416 (Given - Provider: Janet Porras RN) petrolatum-zinc oxide (TRIAD) topical paste Topical, PRN, Starting on Thu06/07/25 at 0930, Until Thu06/12/25 at 1525, Diaper Rash polyethylene glycol (GLYCOLAX, MIRALAX) packet 17 g 17 g, Oral, DAILY PRN, Starting on Thu05/29/25 at 1833, Until Thu06/12/25 at 1525, Constipation, For constipation unrelieved by Senokot-S, Dx: 1. Resides in custodial facility senna-docusate (SENOKOT-S) 8.6-50 mg per tablet 2 Tablet 2 Tablet, Oral, 2 TIMES DAILY PRN, Starting on Thu05/29/25 at 1833, Until Thu06/12/25 at 1525, Constipation, Use first for constipation, Dx: 1. Resides in custodial facility sterile water injection 1 mL(Linked Group 4) 1 mL, Injection, PRN, Starting on Thu05/30/25 at 1723, Until Thu06/12/25 at 1525, Use for drug dilution, Use to dilute and administer glucagon injection, Insulin Calculator, Dx: 1. Type 2 diabetes mellitus without complication, without long-term current use of insulin ([facility]) Linked Groups Order Group 1: albuterol-ipratropium (DUO-NEB) [...] complication, without long-term current use of insulin ([facility]) And insulin aspart U-100 (NovoLOG) injection 0-40 UnitsJump to med 0-40 Units, Subcutaneous, 4 TIMES DAILY AT MEALTIME AND BEDTIME, First dose (after last modification) on 06/04/25 at 1800, Until Discontinued, PO Diet: Obtain [...] complication, without long-term current use of insulin ([facility]) Group 3: magnesium sulfate in dextrose 5% [...] complication, without long-term current use of insulin ([facility]) And sterile water injection 1 mLJump to med 1 mL, Injection, PRN, Starting on Thu05/30/25 at 1723, Until Thu06/12/25 at 1525, Use for drug dilution, Use to dilute and administer glucagon injection, Insulin Calculator, Dx: 1. Type 2 diabetes mellitus without complication, without long- term current use of insulin ([facility]) Group 5: ondansetron (ZOFRAN) injection 4 mgJump [...] 05/30/2025 fluocinonide (LIDEX) 0.05 % cream 1 025 glucagon (GLUCAGEN) injection 1 mg 1 2024 [...] IP CONSULT TO PHYSICAL THERAPY 1 05/29/2025 [facility] SECRETARY Count Last Ordered Date First Orde red Date IP CONSULT TO SPEECH THERAPY 1 06/05/2025 ONGOING SPEECH THERAPY PER PLAN OF CARE 1 1 Admission Count Last Ordered Date First Orde red Date ADMIT 1 05/29/2025 Discharge Count Last Ordered Date First Orde red Date DISCHARGE PATIENT 1 06/12/2025 documented in this encounter
--- OUTSIDE RECORDS SUMMARY | 2025-05-29 17:44 | XMS_ITS | Encounter Summary ---
Author Organization [place] [address] Care Team Providers Care Print Manager Name Role Phone Unavailable Primary Care Provider Unavailabl e Reason for Visit * Auth/Cert/Inpt Specialty Diagnoses / Procedures Referred By Francisco J walter Referred To Contact Diagnoses Fracture Referral ID Status Reason Start Date Expiration Date Visits Re quested Visits Authorized [id number] Encounter Details Date Type Department Care Team (Latest Contact Info) Description 05/29/2025 5:44 PM EDT - 06/12/2025 11:24 AM EDT Hospital Encounter GRT INTERMEDIATE [address] [place] [phone] Hugh Zamarripa [place] [address] 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 0 05/30/2025 7:00 AM CORRYT Joanan Galloway RN How often do you have [...] 05/29/2025 10:33 PM Paradise Ha RN * Rombauer Suicide Severity Rating Scale (Q shift for [...] Zamarripa MD - 06/12/2025 6:57 AM EDT [facility] Discharge Summary Patient Name: Patricia Hills : 1940 Admit Date: 05/29/2025 Discharge Date: 06/12/2025 Admitting Physician: Hugh Zamarripa MD Discharge Physician: Hugh Zamarripa MD Reason for Hospitalization: Active Hospital Problems Hypokalemia Hypomagnesemia Shortness of breath Type 2 diabetes mellitus without complication, without long-term current use of insulin (HCC) Essential hypertension 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 Patient admitted to [facility] for retirement and rehab, noted in hospital to have [...] Diagnoses: Fractured hip, left, closed, initial encounter ([facility]) Condition at Discharge: stable Disposition: Home Discharge [...] Your Medications These medications were sent to [id number] - [place] [address] - [address] [facility] [phone] [address] [facility] [address] cyanocobalamin 1,000 mcg/mL Soln insulin glargine U-100 [...] melatonin 5 mg Oral TabletIndications :Resides in retirement facility Take 1 Tablet by mouth nightly [...] (FLORASTOR) 250 mg Oral CapsuleIndication s:Resides in retirement facility Take 1 Capsule by mouth 2 times daily. 60 Capsule 06/12/2025 documented as of this encounter Ordered Prescriptions Prescription Sig Dispense Quantity Refills Last Filled Start Date End Date cyanocobalamin 1,000 mcg/mL Inj SolutionIndication s:Other fatigue Inject 1 mL into the muscle every 30 days. 1 mL 06/12/2025 Saccharomyces boulardii (FLORASTOR) 250 mg Oral CapsuleIndications :Resides in retirement facility Take 1 Capsule by mouth 2 times daily. 60 Capsule 06/12/2025 melatonin 5 mg Oral TabletIndications: Resides in retirement facility Take 1 Tablet by mouth nightly [...] Means Destination Comment s Home or Self Longterm documented in this encounter Progress Notes * Amie Weller, PT - 06/12/2025 11:24 AM EDT 06/12/25 1629 [facility] PT Subjective Note Type Discharge Mobility - Actual Discharge (Therapies) Sit to stand 4-Supv Chair/Isb-ir-uvqyc transfer 4-Supv Walk 10 Feet 4-Supv Walk [...] Kylah. Kylah called and spoke with pt. STEWARD/STEWARDESS BANQUET notified and aware. Pt up in the [...] a pneumonia prior to being admitted here. STEWARD/STEWARDESS BANQUET notified with orders for CXR and labs. 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 Adrenal adenoma, [...] Essential hypertension ?? 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 Vital signs are normal. No fever. Output: [...] - 06/09/2025 1:07 PM EDT 06/09/25 1254 [facility] OT Subjective Note Type Treatment/Progress [...] placement, RW placement, and sequencing.) Additional Comments SALES REPRESENTATIVE CASH REGISTERS present during session due to agitation/confusion for [...] to sit on L arm rest of [facility] over commode and chair [...] progress in skilled care at this time. senior care placement or caregiver assistance may be helpful. [...] bed 88-Not attempted Sit to stand 4-Supv Chair/Sft-iz-pmeio transfer 4-Supv Toilet transfer 88-Not attempted Tub/Shower [...] patient need. Time In / Time Out 9793-4329 [facility] Actual Physical Therapy Minutes LTC PT [...] Essential hypertension ?? 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 Adrenal adenoma, [...] Essential hypertension ?? 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 for new perspective and for mental/emotional health [...] You will have to go to a usp because I can't do this at home. [...] with [facility] to decrease agitation, etc. Pt continued to state, They will laugh at me. Pt educated that no one is present in [facility] except pt/dtr/staff. Assessment Progress Slow progress, multiple [...] Time In / Time Out 12:23-12:40; 12:51-13:20 [facility] Actual Occupational Therapy Minutes LTC Individual Therapy Minutes 48 * Gracie Macario, PT - 06/08/2025 9:43 AM EDT 06/08/25 0825 [facility] PT Subjective Note Type Treatment/Progress [...] of bed 4-Supv Sit to stand 4-Supv Chair/Sto-aj-hhboe transfer 4-Supv Toilet transfer 88-Not attempted Tub/Shower [...] this time. Time In / Time Out 7195-9207 LTC Actual Physical Therapy Minutes LTC PT [...] role.) (06/02/25 1643) Dressing UE Set up ([facility] gown and donned pullover shirt.) (06/01/25 1502) Dressing LE Contact guard, With verbal cues, Pull up over hips, Thread LLE into underwear, Thread RLE into underwear, Thread LLE into pants, Thread RLE into pants, Don/doff L sock, Don/doff R sock (Pt educated on use of medical operations supervisor/sock aid for LB dressing. Pt doffed/donned socks with CGA and MAX verbal cues for technique. CGA and MOD verbal cues to don pants with medical operations supervisor. MAX cues to hold RW at all [...] hip. ) (06/06/251239) Dressing UE Set up ([facility] gown and donned pullover shirt. Declined bra) (06/06/251239) Dressing LE Contact guard, With verbal cues, Don/doff L shoe, Don/doff R shoe, Pull up over hips, Thread RLE into pants, Thread LLE into pants, Don/doff L sock, Don/doff R sock (Pt able to use medical operations supervisor/sock aid for LB dressing with MOD cues and CGA. Dtr present to see use of medical operations supervisor. Pt stated, Well can't you pull my [...] time. Equipment Recommended hand held shower head, medical operations supervisor, sock aid, long handled sponge, grab bars. [...] alarm activated Additional Comments Call light within medical operations supervisor. Pt asked OT to put items on [...] [T14.8XXA] Fractured hip, left, closed, initial encounter ([facility]) [S72.002A] Upon assessment, pt with the following [...] aid in wound healing. Orders updated in [facility]. Primary nurse updated. Will continue to [...] complication, without long-term current use of insulin ([facility]) ?? Essential hypertension ?? 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 Adrenal adenoma, [...] Essential hypertension ?? 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 Vital signs are normal. No fever. Output: [...] hip. ) UE Dressing Assistance Set up ([facility] gown and donned pullover shirt. Declined bra) LE Dressing Assistance Contact guard;With verbal cues;Don/doff L shoe;Don/doff R shoe;Pull up over hips;Thread RLE into pants;Thread LLE into pants;Don/doff L sock;Don/doff R sock (Pt able to use medical operations supervisor/sock aid for LB dressing with MOD cues and CGA. Dtr present to see use of medical operations supervisor. Pt stated, Well can't you pull my [...] continue skilled, HHPT at discharge. Equip recommendations medical operations supervisor, sock aid, long handled sponge D/c date [...] thin is recommended and no further acute FRUCTOSE LOADER dysphagia intervention is warranted at this time. [...] liquids Assistance/Supervision: Independent Resident/caregiver education Alisha Castillo CCC-FRUCTOSE LOADER Care Conference held this date with resident [...] be faxed same date. Resident agreeable to [facility] services at discharge. Referral sent to [facility] and orders placed on chart. Jeannette [...] recommended. Time In / Time Out 0957/1012 [facility] Actual Physical Therapy Minutes LTC PT [...] Essential hypertension ?? 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 Adrenal adenoma, [...] Essential hypertension ?? 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 Time In / Time Out 16:18-16:54 [facility] Actual Occupational Therapy Minutes LTC Individual Therapy Minutes 36 * Mirian Diallo RN - 06/05/2025 4:14 PM EDT contacted [facility] surgery at for Dr. Ortega. Patient has a follow up apt with Dr. Ortega on 06/12. Dr. Wilkerson office staff said that if the patient will not be discharged from [facility] by then, the staff nurse here at [facility] would need to remove the [...] not working. Pt doesn't want to take [place], per pt [place] makes her confused. 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 -No chest pain 06/03 -Continue ASA, statin, BB Adrenal adenoma, left -Stable Left renal mass -Noted patient refused further workup/imaging at this time Left lower lobe pulmonary nodule -Repeat CT 6-12 months outpatient D/w RN Dispo: Skilled Active Hospital Problems Diagnosis *Fractured hip, left, closed, initial encounter ([facility]) Type 2 diabetes mellitus without complication, without long-term current use of insulin ([facility]) Essential hypertension 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 Activity area accessed and [...] discharge Time In / Time Out 1520/1533 [facility] Actual Physical Therapy Minutes [facility] PT Ind Therapy Min (!) 13 Katya Ott PT * Alex Mayberry, PT - 06/02/2025 1:50 PM EDT 06/02/25 1349 [facility] PT Subjective Note Type Follow Up Treatment Attempt Patient Room/Unit 106 Therapy delay reason Patient declined * Katya Ott, PT - 06/02/2025 1:07 PM EDT 06/02/25 1306 PT Subjective Note Type Follow Up Treatment Attempt Patient Room/Unit 106 Others Present/Assisting daughter Therapy delay reason Patient eating Katya Ott PT * Alex Mayberry, PT - 06/02/2025 11:37 AM EDT 06/02/25 1134 [facility] PT Subjective Note Type Treatment/Progress [...] (HCC) Essential hypertension 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 Pt doffed/donned socks with CGA and MAX verbal cues for technique. CGA and MOD verbal cues to don pants with medical operations supervisor. MAX cues to hold RW at all [...] Schultz RD,LD - 06/01/2025 2:27 PM EDT [facility] Nutrition Initial Assessment Evidence Supported Malnutrition Diagnosis: No malnutrition identified Nutrition Problem/Diagnosis: Nutrition Diagnosis Problem 1: Increased nutrient needs (specify) (energy and amino acids) Calories (amino acids) related to increased demand for energy/nutrients, anticipated change in physical demands as evidenced by wounds, increased estimated needs. Status: New nutrition diagnosis Nutrition Prescription: Kcals: [id number] K Jacinto Needs Based On: Kcal/kg - [...] [T14.8XXA] Fractured hip, left, closed, initial encounter ([facility]) [S72.002A] Reason For Assessment: Skin integrity protocol, [...] Occurrence: 1 Stool Appearance: (!) Type 6 [place] Stool Chart Stool Color: Brown, Yellow Stool [...] kidney mass on the left.Patient sent to [facility] for skilled rehab. * Silvia Diaz, [...] status;Chair/personal alarm activated Additional Comments RN and SALES REPRESENTATIVE CASH REGISTERS present at end of session assess glucose [...] recommended. Time In / Time Out 15:55-16:41 [facility] Actual Occupational Therapy Minutes LTC Individual [...] she thinks she is staying in a buddhist somewhere, reoriented to both time and place, also pulled stat lock for starr off, encouraged patient keep hands away from cath as it could cause infection or trama, encouraged to use call light for needs and assistance. Will continue to monitor. * Stephany Lopez LPN - 05/30/2025 11:14 PM EDT Up to [facility] with walker, gait belt [...] at discharge Time In / Time Out [phone] [facility] Actual Physical Therapy Minutes LTC PT [...] like standing up right now. Others Present/Assisting Mary-hr coordinator Information Evaluation to serve as discharge summary [...] left. Clinical Course Patient was admitted to [facility] and had LLE hemiarthroplasty 05/26/25. Trasnferred [...] living in basement of her home at [facility]. Pt has decreased BUE strength, decreased independence [...] training in prep to return home to [facility]. Goals Patient and/or Family Goal to get [...] OT Weekly Progress Note Due Date 06/07/25 [facility] Actual Occupational Therapy Minutes LT OT Evaluation Minutes 15 [facility] Individual Therapy Minutes 29 * Hugh [...] left. Clinical Course Patient was admitted to [facility] and had LLE hemiarthroplasty 05/26/25. Trasnferred [...] mobility to encourage movement/ambulation to<>from restroom by SALES REPRESENTATIVE CASH REGISTERS.) UE Assessment LUE Assessment WFL RUE Assessment [...] of bed 2-Substantial Sit to stand 2-Substantial Chair/Afv-lk-wholj transfer 2-Substantial Toilet transfer 2-Substantial (BS) Walk 10 Feet 88-Not attempted Walk 50 feet with two turns 88-Not attempted Walk 150 feet 88-Not attempted Walking 10 Feet On Uneven Surfaces 88-Not attempted 1 Step (Curb) 88-Not attempted 4 Steps 88-Not attempted 12 Steps 88-Not attempted Picking Up Object 88-Not attempted Does the resident use a wheelchair/scooter? N1-o Patient Insurance Does Patient Have Honor Insurance? no Bed Mobility Supine to Sit [...] After several attempts demonstrated improvement. Sat at [facility]. Then Katya PT assisted with SALES REPRESENTATIVE CASH REGISTERS for [facility]. Gait Gait Not performed Stair Management Assistance [...] based upon hospital discharge instructions received from [facility]. Per Dr. Zamarripa, hold tonight's dose of [...] mass on the left. Patient sent to [facility] for skilled rehab. 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 Type 2 yrqwyyaz-Wufu-Wdkp twice daily and continue metformin, glyburide was stopped Hypertension-blood pressure 129/44 currently on metoprolol and losartan Coronary artery disease with stents-on aspirin and Plavix, continue and continue cholesterol and blood pressure medicine VTE-Lovenox ordered Adrenal and kidney mass-Will get outside CAT scan report and review Addendum-in review of CAT scan of abdomen on 05/24/2025 at [facility] showed a 2 cm left [...] (HCC) Essential hypertension Coronary artery disease involving qagan tayagungin coronary artery of qagan tayagungin heart without angina pectoris [6] No current [...] discharged home with her daughter 06/12/25 with [facility]. * RT Oxygen Plan of [...] * Plan of Care - Alisha Castillo CCC-FRUCTOSE LOADER - 06/06/2025 4:27 PM EDT Clinical Swallow [...] mass on the left. Patient sent to [facility] for skilled rehab. FRUCTOSE LOADER consulted for swallow evaluation as pt reported [...] thin is recommended and no further acute FRUCTOSE LOADER dysphagia intervention is warranted at this time. [...] liquids Assistance/Supervision: Independent Pt/caregiver education No further FRUCTOSE LOADER needs at this time 06/06/25 1239 Clinical [...] Goal none voiced Patient/Family Education Completed Yes FRUCTOSE LOADER Recommendation Home with prior support This note [...] reported she previously had home O2 with [facility] [place], and when no longer needed, was returned to [facility]. She lives with daughter and plans to return at discharge. There are 7 steps into the home with handrails. She was independent in ADL's prior to fall and has a 2WW. Pharmacy is [facility]. They are agreeable to [facility] at discharge as they had [...] - 100 mg/dL 06/12/2025 8:14 AM EDT [facility] Sample Type Capillary 06/12/2025 8:14 AM EDT [facility] Patient Status Non-Critical Patient 06/12/2025 8:14 AM EDT [facility] Blood BLOOD SPECIMEN / Unknown 06/12/2025 8:13 AM EDT 06/12/2025 8:14 AM EDT us Hugh Zamarripa MD POINT OF CARE TEST ORDER PEDRO LUIS Final Result Performing Organization Address City/[facility] Co de Phone Number [facility] [address] [place] [address] * MAGNESIUM LEVEL (06/12/2025 5:33 AM EDT) Pathologist [facility] Magnesium 1.7 1.6 - 2.4 mg/dL 06/12/2025 5:55 AM EDT [facility] Blood VENOUS BLOOD / Unknown Venipuncture / Unknown 06/12/2025 5:33 AM EDT 06/12/2025 5:33 AM EDT us Jennifer Fontana APRN CHEMISTRY ORDERABLES Fin al Result Performing Organization Address City/[facility]/ZIP Co de Phone Number [facility] [address] [place], [place] [id number] * (ABNORMAL) CBC (06/12/2025 5:33 AM EDT) WBC 7.9 3.7 - 10.3 x10(3)/mcL 06/12/2025 5:36 AM EDT [facility] RBC 3.76(L) 3.90 - 5.20 x10(6)/mcL 06/12/2025 5:36 AM EDT [facility] Hgb 11.3 11.2 - 15.7 g/dL 06/12/2025 5:36 AM EDT [facility] Hct 35.6 34.0 - 45.0 % 06/12/2025 5:36 AM EDT [facility] MCV 94.7 80.0 - 100.0 fL 06/12/2025 5:36 AM EDT [facility] MCH 30.1 26.0 - 34.0 pg 06/12/2025 5:36 AM EDT [facility] MCHC 31.7 30.7 - 35.5 g/dL 06/12/2025 5:36 AM EDT [facility] RDW 13.0 <=14.9 % 06/12/2025 5:36 AM EDT [facility] Platelet 366 155 - 369 x10(3)/mcL 06/12/2025 5:36 AM EDT [facility] MPV 8.8 8.8 - 12.5 fL 06/12/2025 5:36 AM EDT [facility] Blood VENOUS BLOOD / Unknown Venipuncture / Unknown 06/12/2025 5:33 AM EDT 06/12/2025 5:33 AM EDT us Jennifer Fontana [employer] PLUMBER HEMATOLOGY ORDERABLES Fi nal Result [facility] [address] [place] [address] * (ABNORMAL) BASIC METABOLIC PANEL (06/12/2025 5:33 AM EDT) Sodium 144 136 - 145 mmol/L 06/12/2025 5:55 AM EDT [facility] Potassium 4.0 3.5 - 5.0 mmol/L 06/12/2025 5:55 AM EDT [facility] Chloride 108(H) 98 - 107 mmol/L 06/12/2025 5:55 AM EDT [facility] Total CO2 27 22 - 29 mmol/L 06/12/2025 5:55 AM EDT [facility] Anion Gap 9 7 - 16 mmol/L 06/12/2025 5:55 AM EDT [facility] Calcium 8.5(L) 8.8 - 10.4 mg/dL 06/12/2025 5:55 AM EDT [facility] Glucose Lvl 137(H) 70 - 99 mg/dL 06/12/2025 5:55 AM EDT [facility] BUN 14 8 - 23 mg/dL 06/12/2025 5:55 AM T [facility] Creatinine 0.64 0.51 - 1.30 mg/dL 06/12/2025 5:55 AM EDT [facility] eGFR (CKD-EPIcr 2020) 86 >=60 mL/min/1.7 3 m2 06/12/2025 5:55 AM EDT [facility] Comment:Estimated GFR was ca lculated using the CKD-EPIcr (2020) equation refit without race. The equation is recommended by the [employer] Kid[employer] - [place] [employer] Neph[employer] Task Force. Blood VENOUS BLOOD / Unknown Venipuncture / Unknown 06/12/2025 5:33 AM EDT 06/12/2025 5:33 AM EDT Jennifer Fontana APRN CHEMISTRY ORDERABLES Fin al Result [facility] [address] [place] [place], [place] [id number] * (ABNORMAL) GLUCOSE METER POC (06/11/2025 8:58 PM EDT) Glucose Meter POC 111(H) 70 - 100 mg/dL 06/11/2025 9:00 PM EDT [facility] Sample Type Capillary 06/11/2025 9:00 PM EDT [facility] Patient Status Non-Critical Patient 06/11/2025 9:00 PM EDT [facility] Blood BLOOD SPECIMEN / Unknown 06/11/2025 8:58 PM EDT 06/11/2025 9:00 PM EDT Hugh Zamarripa MD POINT OF CARE TEST ORDER PEDRO LUIS Final Result Performing Organization Address [facility] [place]/[facility] Co de Phone Number [facility] [address] [place] [address] * (ABNORMAL) GLUCOSE METER POC (06/11/2025 4:59 PM EDT) Glucose Meter POC 128(H) 70 - 100 mg/dL 06/11/2025 5:00 PM EDT [facility] Sample Type Capillary 06/11/2025 5:00 PM EDT [facility] Patient Status Non-Critical Patient 06/11/2025 5:00 PM EDT [facility] Blood BLOOD SPECIMEN / Unknown 06/11/2025 4:59 PM EDT 06/11/2025 5:00 PM EDT Hugh Zamarripa MD POINT OF CARE TEST ORDER PEDRO LUIS Final Result Performing Organization Address [facility] [place]/[facility] Co de Phone Number [facility] [address] [place] [address] * (ABNORMAL) GLUCOSE METER POC (06/11/2025 12:16 PM EDT) Glucose Meter POC 107(H) 70 - 100 mg/dL 06/11/2025 12:18 PM EDT [facility] Sample Type Capillary 06/11/2025 12:18 PM EDT [facility] Patient Status Non-Critical Patient 06/11/2025 12:18 PM EDT [facility] Blood BLOOD SPECIMEN / Unknown 06/11/2025 12:16 PM EDT 06/11/2025 12:18 PM EDT Hugh Zamarripa MD POINT OF CARE TEST ORDER PEDRO LUIS Final Result Performing Organization Address City/[facility] de Phone Number [facility] [address] [place] [address] * (ABNORMAL) GLUCOSE METER POC (06/11/2025 7:59 AM EDT) Glucose Meter POC 127(H) 70 - 100 mg/dL 06/11/2025 8:01 AM EDT [facility] Sample Type Capillary 06/11/2025 8:01 AM EDT [facility] Patient Status Non-Critical Patient 06/11/2025 8:01 AM EDT [facility] Blood BLOOD SPECIMEN / Unknown 06/11/2025 7:59 AM EDT 06/11/2025 8:01 AM EDT us Hugh Zamarripa MD POINT OF CARE TEST ORDER PEDRO LUIS Final Result Performing Organization Address [facility] [place]/[facility] de Phone Number [facility] [address] [place] [address] * EXTRA LAVENDER (06/11/2025 6:17 AM EDT) Blood VENOUS BLOOD / Unknown Venipuncture / Unknown 06/11/2025 6:17 AM EDT 06/11/2025 9:04 AM EDT us Hugh Zamarripa MD HEMATOLOGY ORDERABLES Fi nal Result Performing Organization Address [facility] [place]/[facility] de Phone Number [facility] [address] [place] [address] * REPEAT LACTIC ACID (06/11/2025 6:17 AM EDT) Lactic Acid 1.9 0.5 - 1.9 mmol/L 06/11/2025 6:31 AM EDT [facility] Blood VENOUS BLOOD / Unknown Venipuncture / Unknown 06/11/2025 6:17 AM EDT 06/11/2025 6:17 AM EDT Hugh Zamarripa MD CHEMISTRY ORDERABLES Fin al Result Performing Organization Address City/[facility] Co de Phone Number [facility] [address] [place] [address] * MAGNESIUM LEVEL (06/11/2025 6:17 AM EDT) [facility] Magnesium 1.6 1.6 - 2.4 mg/dL 06/11/2025 6:56 AM EDT [facility] Blood VENOUS BLOOD / Unknown Venipuncture / Unknown 06/11/2025 6:17 AM EDT 06/11/2025 6:43 AM EDT Jennifer Fontana APRN CHEMISTRY ORDERABLES Fin al Result Performing Organization Address [facility] [place]/[facility] Co de Phone Number [facility] [address] [place] [address] * (ABNORMAL) BASIC METABOLIC PANEL (06/11/2025 6:17 AM EDT) [facility] Sodium 145 136 - 145 mmol/L 06/11/2025 6:56 AM EDT [facility] Potassium 3.8 3.5 - 5.0 mmol/L 06/11/2025 6:56 AM EDT [facility] Chloride 110(H) 98 - 107 mmol/L 06/11/2025 6:56 AM EDT [facility] Total CO2 24 22 - 29 mmol/L 06/11/2025 6:56 AM EDT [facility] Anion Gap 11 7 - 16 mmol/L 06/11/2025 6:56 AM EDT [facility] Calcium 8.2(L) 8.8 - 10.4 mg/dL 06/11/2025 6:56 AM EDT [facility] Glucose Lvl 128(H) 70 - 99 mg/dL 06/11/2025 6:56 AM EDT [facility] BUN 14 8 - 23 mg/dL 06/11/2025 6:56 AM EDT [facility] Creatinine 0.61 0.51 - 1.30 mg/dL 06/11/2025 6:56 AM EDT [facility] eGFR (CKD-EPIcr 2020) 87 >=60 mL/min/1.7 3 m2 06/11/2025 6:56 AM EDT [facility] Comment:Estimated GFR was ca lculated using the CKD-EPIcr (2020) equation refit without race. The equation is recommended by the National Kidney [employer] - [place] [employer] Neph[employer] Task Force. Blood VENOUS BLOOD / Unknown Venipuncture / Unknown 06/11/2025 6:17 AM EDT 06/11/2025 6:43 AM EDT Jennifer Fontana APRN CHEMISTRY ORDERABLES Fin al Result Performing Organization Address [facility] [place]/[facility] de Phone Number [facility] [address] [place] [address] * (ABNORMAL) REPEAT LACTIC ACID (06/10/2025 11:20 PM EDT) Lactic Acid 2.3(H) 0.5 - 1.9 mmol/L 06/10/2025 11:36 PM EDT [facility] Blood VENOUS BLOOD / Unknown Venipuncture / Unknown 06/10/2025 11:20 PM EDT 06/10/2025 11:20 PM EDT Hugh Zamarripa MD CHEMISTRY ORDERABLES Fin al Result Performing Organization Address [facility] [place]/[facility] de Phone Number [facility] [address] [place] [address] * (ABNORMAL) REPEAT LACTIC ACID (06/10/2025 8:14 PM EDT) Lactic Acid 3.3(H) 0.5 - 1.9 mmol/L 06/10/2025 8:29 PM EDT [facility] Blood VENOUS BLOOD / Unknown Venipuncture / Unknown 06/10/2025 8:14 PM EDT 06/10/2025 8:14 PM EDT Jennifer Fontana APRN CHEMISTRY ORDERABLES Fin al Result Performing Organization Address City/[facility] Co de Phone Number [facility] [address] [place] [address] * (ABNORMAL) GLUCOSE METER POC (06/10/2025 4:58 PM EDT) Glucose Meter POC 139(H) 70 - 100 mg/dL 06/10/2025 5:00 PM EDT [facility] Sample Type Capillary 06/10/2025 5:00 PM EDT [facility] Patient Status Non-Critical Patient 06/10/2025 5:00 PM EDT [facility] Blood BLOOD SPECIMEN / Unknown 06/10/2025 4:58 PM EDT 06/10/2025 5:00 PM EDT Hugh Zamarripa MD POINT OF CARE TEST ORDER PEDRO LUIS Final Result Performing Organization Address [facility] [place]/[facility] Co de Phone Number [facility] [address] [place] [address] * (ABNORMAL) REPEAT LACTIC ACID (06/10/2025 2:18 PM EDT) Lactic Acid 3.2(H) 0.5 - 1.9 mmol/L 06/10/2025 2:34 PM EDT [facility] Blood VENOUS BLOOD / Unknown Venipuncture / Unknown 06/10/2025 2:18 PM EDT 06/10/2025 2:23 PM EDT Jennifer Fontana APRN CHEMISTRY ORDERABLES Fin al Result [facility] [address] [place] [address] * (ABNORMAL) GLUCOSE METER POC (06/10/2025 11:59 AM EDT) Glucose Meter POC 105(H) 70 - 100 mg/dL 06/10/2025 12:00 PM EDT [facility] Sample Type Capillary 06/10/2025 12:00 PM EDT [facility] Patient Status Non-Critical Patient 06/10/2025 12:00 PM EDT [facility] Blood BLOOD SPECIMEN / Unknown 06/10/2025 11:59 AM EDT 06/10/2025 12:00 PM EDT Hugh Zamarripa MD POINT OF CARE TEST ORDER PEDRO LUIS Final Result Performing Organization Address [facility] [place]/[facility] de Phone Number [facility] [address] [place] [address] * (ABNORMAL) MAGNESIUM LEVEL (06/10/2025 11:52 AM EDT) Magnesium 1.3(L) 1.6 - 2.4 mg/dL 06/10/2025 1:12 PM EDT [facility] Blood VENOUS BLOOD / Unknown Venipuncture / Unknown 06/10/2025 11:52 AM EDT 06/10/2025 12:00 PM EDT Jennifer Fontana APRN CHEMISTRY ORDERABLES Fin al Result Performing Organization Address [facility] [place]/[facility] de Phone Number [facility] [address] [place] [address] * PROCALCITONIN (06/10/2025 11:52 AM EDT) Procalcitonin 0.08 <=0.49 ng/mL 06/10/2025 7:35 PM EDT [facility] [employer] Blood VENOUS BLOOD / Unknown Venipuncture / Unknown 06/10/2025 11:52 AM EDT 06/10/2025 12:00 PM EDT Narrative [facility] [employer] - 06/10/2025 7:35 PM EDT Procalcitonin [...] ORDERABLES Fin al Result Performing Organization Address City/[facility]/ZIP Co de Phone Number [facility] [employer] [address], [place] [address] * (ABNORMAL) LACTIC ACID (06/10/2025 11:52 AM EDT) Lactic Acid 2.1(H) 0.5 - 1.9 mmol/L 06/10/2025 12:13 PM EDT [facility] Blood VENOUS BLOOD / Unknown Venipuncture / Unknown 06/10/2025 11:52 AM EDT 06/10/2025 12:00 PM EDT Jennifer Fontana APRN CHEMISTRY ORDERABLES Fin al Result Performing Organization Address [facility] [place]/[facility] Co de Phone Number [facility] [address] [place] [address] * (ABNORMAL) CBC (06/10/2025 11:52 AM EDT) WBC 10.5(H) 3.7 - 10.3 x10(3)/mcL 06/10/2025 12:03 PM EDT [facility] RBC 3.93 3.90 - 5.20 x10(6)/mcL 06/10/2025 12:03 PM EDT [facility] Hgb 11.9 11.2 - 15.7 g/dL 06/10/2025 12:03 PM EDT [facility] Hct 36.2 34.0 - 45.0 % 06/10/2025 12:03 PM EDT [facility] MCV 92.1 80.0 - 100.0 fL 06/10/2025 12:03 PM EDT [facility] MCH 30.3 26.0 - 34.0 pg 06/10/2025 12:03 PM EDT [facility] MCHC 32.9 30.7 - 35.5 g/dL 06/10/2025 12:03 PM EDT [facility] RDW 12.7 <=14.9 % 06/10/2025 12:03 PM EDT [facility] Platelet 400(H) 155 - 369 x10(3)/mcL 06/10/2025 12:03 PM EDT [facility] MPV 8.9 8.8 - 12.5 fL 06/10/2025 12:03 PM T [facility] Blood VENOUS BLOOD / Unknown Venipuncture / Unknown 06/10/2025 11:52 AM EDT 06/10/2025 12:00 PM EDT Jennifer Fontana APRN HEMATOLOGY ORDERABLES Fi nal Result [facility] [address] [place] [address] * (ABNORMAL) BASIC METABOLIC PANEL (06/10/2025 11:52 AM EDT) Sodium 143 136 - 145 mmol/L 06/10/2025 12:16 PM EDT [facility] Potassium 3.2(L) 3.5 - 5.0 mmol/L 06/10/2025 12:16 PM T [facility] Chloride 105 98 - 107 mmol/L 06/10/2025 12:16 PM T [facility] Total CO2 25 22 - 29 mmol/L 06/10/2025 12:16 PM T [facility] Anion Gap 13 7 - 16 mmol/L 06/10/2025 12:16 PM T [facility] Calcium 8.5(L) 8.8 - 10.4 mg/dL 06/10/2025 12:16 PM T [facility] Glucose Lvl 106(H) 70 - 99 mg/dL 06/10/2025 12:16 PM EDT [facility] BUN 16 8 - 23 mg/dL 06/10/2025 12:16 PM EDT [facility] Creatinine 0.67 0.51 - 1.30 mg/dL 06/10/2025 12:16 PM EDT [facility] eGFR (CKD-EPIcr 2020) 85 >=60 mL/min/1.7 3 m2 06/10/2025 12:16 PM EDT [facility] Comment:Estimated GFR was ca lculated using the CKD-EPIcr (2020) equation refit without race. The equation is recommended by the National Kidney Foundation - [place] [employer] Nephrology Task Force. Blood VENOUS BLOOD / Unknown Venipuncture / Unknown 06/10/2025 11:52 AM EDT 06/10/2025 12:00 PM EDT us Jennifer Fontana APRN CHEMISTRY ORDERABLES Fin al Result [facility] [address] [place], [place] [id number] * XR CHEST AP PORTABLE (06/10/2025 11:38 [...] - 100 mg/dL 06/10/2025 8:38 AM EDT [facility] Sample Type Capillary 06/10/2025 8:38 AM EDT [facility] Patient Status Non-Critical Patient 06/10/2025 8:38 AM EDT [facility] Blood BLOOD SPECIMEN / Unknown 06/10/2025 8:36 AM EDT 06/10/2025 8:38 AM EDT Hugh Zamarripa MD POINT OF CARE TEST ORDER PEDRO LUIS Final Result Performing Organization Address City/[facility] Co de Phone Number [facility] [address] [place], [place] [id number] * (ABNORMAL) GLUCOSE METER POC (06/09/2025 8:23 PM EDT) Glucose Meter POC 155(H) 70 - 100 mg/dL 06/09/2025 8:24 PM EDT [facility] Sample Type Capillary 06/09/2025 8:24 PM EDT [facility] Patient Status Non-Critical Patient 06/09/2025 8:24 PM EDT [facility] Blood BLOOD SPECIMEN / Unknown 06/09/2025 8:23 PM EDT 06/09/2025 8:24 PM EDT Hugh Zamarripa MD POINT OF CARE TEST ORDER PEDRO LUIS Final Result Performing Organization Address City/State/[facility] Co de Phone Number [facility] [address] [place] [address] * (ABNORMAL) GLUCOSE METER POC (06/09/2025 4:53 PM EDT) Glucose Meter POC 117(H) 70 - 100 mg/dL 06/09/2025 4:54 PM EDT [facility] Sample Type Capillary 06/09/2025 4:54 PM EDT [facility] Patient Status Non-Critical Patient 06/09/2025 4:54 PM EDT [facility] Blood BLOOD SPECIMEN / Unknown 06/09/2025 4:53 PM EDT 06/09/2025 4:54 PM EDT Hugh Zamarripa MD POINT OF CARE TEST ORDER PEDRO LUIS Final Result Performing Organization Address [facility] [place]/[facility] de Phone Number [facility] [address] [place] [address] * (ABNORMAL) GLUCOSE METER POC (06/09/2025 11:44 AM EDT) Glucose Meter POC 149(H) 70 - 100 mg/dL 06/09/2025 11:45 AM EDT [facility] Sample Type Capillary 06/09/2025 11:45 AM EDT [facility] Patient Status Non-Critical Patient 06/09/2025 11:45 AM EDT [facility] Blood BLOOD SPECIMEN / Unknown 06/09/2025 11:44 AM EDT 06/09/2025 11:45 AM EDT us Hugh Zamarripa MD POINT OF CARE TEST ORDER PEDRO LUIS Final Result Performing Organization Address [facility] [place]/[facility] Co de Phone Number [facility] [address] [place] [address] * (ABNORMAL) GLUCOSE METER POC (06/09/2025 7:43 AM EDT) Glucose Meter POC 113(H) 70 - 100 mg/dL 06/09/2025 7:44 AM EDT [facility] Sample Type Capillary 06/09/2025 7:44 AM EDT [facility] Patient Status Non-Critical Patient 06/09/2025 7:44 AM EDT [facility] Blood BLOOD SPECIMEN / Unknown 06/09/2025 7:43 AM EDT 06/09/2025 7:44 AM EDT Hugh Zamarripa MD POINT OF CARE TEST ORDER PEDRO LUIS Final Result Performing Organization Address City/[facility]/ZIP Co de Phone Number [facility] [address] [place] [address] * (ABNORMAL) GLUCOSE METER POC (06/08/2025 8:01 PM EDT) Glucose Meter POC 151(H) 70 - 100 mg/dL 06/08/2025 8:03 PM EDT [facility] Sample Type Capillary 06/08/2025 8:03 PM EDT [facility] Patient Status Non-Critical Patient 06/08/2025 8:03 PM EDT [facility] Blood BLOOD SPECIMEN / Unknown 06/08/2025 8:01 PM EDT 06/08/2025 8:03 PM EDT Hugh Zamarripa MD POINT OF CARE TEST ORDER PEDRO LUIS Final Result Performing Organization Address City/[facility]/ZIP Co de Phone Number [facility] [address] [place] [address] * (ABNORMAL) GLUCOSE METER POC (06/08/2025 4:33 PM EDT) Glucose Meter POC 145(H) 70 - 100 mg/dL 06/08/2025 4:35 PM EDT [facility] Sample Type Capillary 06/08/2025 4:35 PM EDT [facility] Patient Status Non-Critical Patient 06/08/2025 4:35 PM EDT [facility] Blood BLOOD SPECIMEN / Unknown 06/08/2025 4:33 PM EDT 06/08/2025 4:35 PM EDT us Hugh Zamarripa MD POINT OF CARE TEST ORDER PEDRO LUIS Final Result [facility] [address] [place], [place] [id number] * (ABNORMAL) BASIC METABOLIC PANEL (06/08/2025 4:27 PM EDT) Sodium 143 136 - 145 mmol/L 06/08/2025 4:45 PM EDT [facility] Potassium 4.0 3.5 - 5.0 mmol/L 06/08/2025 4:45 PM EDT [facility] Chloride 103 98 - 107 mmol/L 06/08/2025 4:45 PM EDT [facility] Total CO2 28 22 - 29 mmol/L 06/08/2025 4:45 PM EDT [facility] Anion Gap 12 7 - 16 mmol/L 06/08/2025 4:45 PM EDT [facility] Calcium 8.9 8.8 - 10.4 mg/dL 06/08/2025 4:45 PM EDT [facility] Glucose Lvl 143(H) 70 - 99 mg/dL 06/08/2025 4:45 PM EDT [facility] BUN 14 8 - 23 mg/dL 06/08/2025 4:45 PM EDT [facility] Creatinine 0.75 0.51 - 1.30 mg/dL 06/08/2025 4:45 PM EDT [facility] eGFR (CKD-EPIcr 2020) 78 >=60 mL/min/1.7 3 m2 06/08/2025 4:45 PM EDT [facility] Comment:Estimated GFR was ca lculated using the CKD-EPIcr (2020) equation refit without race. The equation is recommended by the National Kid[employer] - [place] [employer] Neph[employer] Task Force. Blood VENOUS BLOOD / Unknown Venipuncture / Unknown 06/08/2025 4:27 PM EDT 06/08/2025 4:30 PM EDT us Viral Sargent V, DO CHEMISTRY ORDERABLES Final Res ult Performing Organization Address [facility] [place]/[facility] Co de Phone Number [facility] [address] [place] [address] * (ABNORMAL) GLUCOSE METER POC (06/08/2025 11:48 AM EDT) Glucose Meter POC 140(H) 70 - 100 mg/dL 06/08/2025 11:50 AM EDT [facility] Sample Type Capillary 06/08/2025 11:50 AM EDT [facility] Patient Status Non-Critical Patient 06/08/2025 11:50 AM EDT [facility] Blood BLOOD SPECIMEN / Unknown 06/08/2025 11:48 AM EDT 06/08/2025 11:50 AM EDT us Hugh Zamarripa MD POINT OF CARE TEST ORDER PEDRO LUIS Final Result Performing Organization Address [facility] de Phone Number [facility] [address] [place] [address] * (ABNORMAL) GLUCOSE METER POC (06/08/2025 8:30 AM EDT) Glucose Meter POC 126(H) 70 - 100 mg/dL 06/08/2025 8:31 AM EDT [facility] Sample Type Capillary 06/08/2025 8:31 AM EDT [facility] Patient Status Non-Critical Patient 06/08/2025 8:31 AM EDT [facility] Blood BLOOD SPECIMEN / Unknown 06/08/2025 8:30 AM EDT 06/08/2025 8:31 AM EDT us Hugh Zamarripa MD POINT OF CARE TEST ORDER PEDRO LUIS Final Result Performing Organization Address [facility] [place]/[facility] Co de Phone Number [facility] [address] [place] [address] * (ABNORMAL) GLUCOSE METER POC (06/07/2025 8:56 PM EDT) Glucose Meter POC 135(H) 70 - 100 mg/dL 06/07/2025 8:57 PM EDT [facility] Sample Type Capillary 06/07/2025 8:57 PM EDT [facility] Patient Status Non-Critical Patient 06/07/2025 8:57 PM EDT [facility] Blood BLOOD SPECIMEN / Unknown 06/07/2025 8:56 PM EDT 06/07/2025 8:57 PM EDT us Hugh Zamarripa MD POINT OF CARE TEST ORDER PEDRO LUIS Final Result Performing Organization Address City/State/[facility] Co de Phone Number [facility] [address] [place] [address] * (ABNORMAL) URINE CULTURE (NO STAIN) (06/07/2025 8:48 PM EDT) Culture Positive Growth(A) 06/10/2025 1:16 PM EDT [facility] Culture >100,000 CFU/mL Lactobacillus species SUSCEPTIB ILITY RESULT 06/10/2025 1:16 PM EDT [facility] Comment:No further workup. Culture 4,000 CFU/mL Ashley albicans SUSCEPTIB ILITY RESULT 06/10/2025 1:16 PM EDT [facility] Comment:No further workup. Urine STRUCTURE OF URINARY TRACT PROPER / Unknown 06/07/2025 8:48 PM EDT 06/07/2025 9:08 PM EDT us Viral Sargent V, DO MICROBIOLOGY - GENERAL ORDERAB LES Final Result Performing Organization Address City/[facility]/ZIP Co de Phone Number PREFERRED [facility] [employer] [address] [facility] , [place] [address] * EXTRA LAUGHLIN URINE CX (06/07/2025 8:48 PM EDT) Urine STRUCTURE OF URINARY TRACT PROPER / Unknown 06/07/2025 8:48 PM EDT 06/07/2025 8:59 PM EDT us Viral Sargent V, DO MICROBIOLOGY - GENERAL ORDERAB LES Final Result [facility] [address] [place], [place] [id number] * (ABNORMAL) URINALYSIS REFLEX (06/07/2025 8:48 PM EDT) UA Color Yellow 06/07/2025 9:08 PM EDT [facility] UA Appear Clear Clear 06/07/2025 9:08 PM EDT [facility] UA Glucose Negative Negative mg/dL 06/07/2025 9:08 PM EDT [facility] UA Ketones Negative Negative mg/dL 06/07/2025 9:08 PM EDT [facility] UA Blood Negative Negative 06/07/2025 9:08 PM EDT [facility] UA pH 6.0 5.0 - 8.0 pH 06/07/2025 9:08 PM EDT [facility] UA Protein Trace(A) Negative mg/dL 06/07/2025 9:08 PM EDT [facility] UA Urobilinogen 0.2 <=1 mg/dL 9:08 PM EDT [facility] UA Bili Negative Negative 06/07/2025 9:08 PM EDT [facility] UA Nitrite Negative Negative 06/07/2025 9:08 PM EDT [facility] UA Leuk Est Small(A) Negative 06/07/2025 9:08 PM EDT [facility] UA Spec Grav 1.025 1.001 - 1.035 no units 06/07/2025 9:08 PM EDT [facility] Comment:Reference range tessie d for random specimens only. UA WBC 10(H) 0 - 4 /HPF 06/07/2025 9:08 PM EDT [facility] UA RBC 0 0 - 3 /HPF 06/07/2025 9:08 PM EDT [facility] UA Squam Epi 2+ /LPF 06/07/2025 9:08 PM EDT [facility] UA Mucus 2+ /LPF 06/07/2025 9:08 PM EDT [facility] UA Amorph 1+ /HPF 06/07/2025 9:08 PM EDT [facility] UA Bacteria Trace(A) Negative /HPF 06/07/2025 9:08 PM EDT [facility] Urine STRUCTURE OF URINARY TRACT PROPER / Unknown 06/07/2025 8:48 PM EDT 06/07/2025 8:59 PM EDT Viral Sargent V, DO URINE ORDERABLES Final Result Performing Organization Address [facility] [place]/[facility] Co de Phone Number [facility] [address] [place] [address] * (ABNORMAL) GLUCOSE METER POC (06/07/2025 4:47 PM EDT) Glucose Meter POC 114(H) 70 - 100 mg/dL 06/07/2025 4:48 PM EDT [facility] Sample Type Capillary 06/07/2025 4:48 PM EDT [facility] Patient Status Non-Critical Patient 06/07/2025 4:48 PM EDT [facility] Blood BLOOD SPECIMEN / Unknown 06/07/2025 4:47 PM EDT 06/07/2025 4:48 PM EDT Hugh Zamarripa MD POINT OF CARE TEST ORDER PEDRO LUIS Final Result Performing Organization Address [facility] [place]/[facility] Co de Phone Number [facility] [address] [place] [address] * (ABNORMAL) GLUCOSE METER POC (06/07/2025 11:49 AM EDT) Glucose Meter POC 207(H) 70 - 100 mg/dL 06/07/2025 11:51 AM EDT [facility] Sample Type Capillary 06/07/2025 11:51 AM EDT [facility] Patient Status Non-Critical Patient 06/07/2025 11:51 AM EDT [facility] Blood BLOOD SPECIMEN / Unknown 06/07/2025 11:49 AM EDT 06/07/2025 11:51 AM EDT Hugh Zamarripa MD POINT OF CARE TEST ORDER PEDRO LUIS Final Result Performing Organization Address City/[facility] Co de Phone Number [facility] [address] [place] [address] * (ABNORMAL) GLUCOSE METER POC (06/07/2025 7:50 AM EDT) [facility] Glucose Meter POC 135(H) 70 - 100 mg/dL 06/07/2025 7:52 AM EDT [facility] Sample Type Capillary 06/07/2025 7:52 AM EDT [facility] Patient Status Non-Critical Patient 06/07/2025 7:52 AM EDT [facility] Blood BLOOD SPECIMEN / Unknown 06/07/2025 7:50 AM EDT 06/07/2025 7:52 AM EDT Hugh Zamarripa MD POINT OF CARE TEST ORDER PEDRO LUIS Final Result Performing Organization Address [facility] [place]/[facility] de Phone Number [facility] [address] [place] [address] * XR HIP LEFT AP LATERAL W [...] - 10.3 x10(3)/mcL 06/07/2025 5:11 AM EDT [employer] [facility] RBC 3.92 3.90 - 5.20 x10(6)/mcL 06/07/2025 5:11 AM EDT [employer] [facility] Hgb 11.8 11.2 - 15.7 g/dL 06/07/2025 5:11 AM EDT [employer] [facility] Hct 36.3 34.0 - 45.0 % 06/07/2025 5:11 AM EDT [employer] [facility] MCV 92.6 80.0 - 100.0 fL 06/07/2025 5:11 AM EDT [facility] MCH 30.1 26.0 - 34.0 pg 06/07/2025 5:11 AM EDT [facility] MCHC 32.5 30.7 - 35.5 g/dL 06/07/2025 5:[facility] RDW 12.5 <=14.9 % 06/07/2025 5:11 [facility] Platelet 341 155 - 369 x10(3)/mcL 06/07/2025 5:11 [facility] MPV 9.0 8.8 - 12.5 fL 06/07/2025 5:11 [facility] Neut Percent 79.0 % 06/07/2025 5:11 [facility] Comment:Neutrophils equals s egs plus bands Imm Gran% 0.4 % 06/07/2025 5:11 AM EDT [facility] Comment:Automated count of m etamyelocytes, myelocytes and promyelocytes. Lymph Percent 11.7 % 06/07/2025 5:11 AM EDT [facility] [place] Percent 6.9 % 06/07/2025 5:11 AM EDT [facility] Eos Percent 1.5 % 06/07/2025 5:11 AM EDT [facility] Baso Percent 0.5 % 06/07/2025 5:11 AM EDT [facility] Neut # 8.9(H) 1.6 - 6.1 x10(3)/mcL 06/07/2025 5:11 AM EDT [facility] Comment:Neutrophils equals s egs plus bands IMMGRAN# 0.0 0.0 - 0.1 x10(3)/mcL 06/07/2025 5:11 AM EDT [facility] Comment:Automated count of m etamyelocytes, myelocytes and promyelocytes. An absolute IG <0.1 is reported as 0.0. Lymph # 1.3 1.2 - 3.9 x10(3)/mcL 06/07/2025 5:11 AM EDT [facility] [place] # 0.8 0.3 - 0.9 x10(3)/mcL 06/07/2025 5:11 AM EDT [facility] Eos# 0.2 0.0 - 0.5 x10(3)/mcL 06/07/2025 5:11 AM EDT [facility] Baso # 0.1 0.0 - 0.1 x10(3)/mcL 06/07/2025 5:11 AM EDT [facility] Blood VENOUS BLOOD / Unknown Venipuncture / Unknown 06/07/2025 5:09 AM EDT 06/07/2025 5:09 AM EDT us Viral Sargent V, DO HEMATOLOGY ORDERABLES Final Re sult [facility] [address] [place] [address] * (ABNORMAL) BASIC METABOLIC PANEL (06/07/2025 5:09 AM EDT) Sodium 142 136 - 145 mmol/L 06/07/2025 5:30 AM EDT [facility] Potassium 3.3(L) 3.5 - 5.0 mmol/L 06/07/2025 5:30 AM EDT [facility] Chloride 104 98 - 107 mmol/L 06/07/2025 5:30 AM EDT [facility] Total CO2 28 22 - 29 mmol/L 06/07/2025 5:30 AM EDT [facility] Anion Gap 10 7 - 16 mmol/L 06/07/2025 5:30 AM T [facility] Calcium 8.7(L) 8.8 - 10.4 mg/dL 06/07/2025 5:30 AM EDT [facility] Glucose Lvl 143(H) 70 - 99 mg/dL 06/07/2025 5:30 AM EDT [facility] BUN 16 8 - 23 mg/dL 06/07/2025 5:30 AM T [facility] Creatinine 0.66 0.51 - 1.30 mg/dL 06/07/2025 5:30 AM [facility] eGFR (CKD-EPIcr 2020) 85 >=60 mL/min/1.7 3 m2 06/07/2025 5:30 AM T [facility] Comment:Estimated GFR was ca lculated using the CKD-EPIcr (2020) equation refit without race. The equation is recommended by the [employer] - [employer] [employer]ph[employer] Task Force. Blood VENOUS BLOOD / Unknown Venipuncture / Unknown 06/07/2025 5:09 AM EDT 06/07/2025 5:09 AM EDT us Viral Sargent V, DO CHEMISTRY ORDERABLES Final Res ult [facility] [address] [place] [address] * (ABNORMAL) GLUCOSE METER POC (06/06/2025 9:21 PM EDT) Glucose Meter POC 126(H) 70 - 100 mg/dL 06/06/2025 9:23 PM EDT [facility] Sample Type Capillary 06/06/2025 9:23 PM EDT [facility] Patient Status Non-Critical Patient 06/06/2025 9:23 PM EDT [facility] Blood BLOOD SPECIMEN / Unknown 06/06/2025 9:21 PM EDT 06/06/2025 9:23 PM EDT Hugh Zamarripa MD POINT OF CARE TEST ORDER PEDRO LUIS Final Result Performing Organization Address [facility] [place]/[facility] Co de Phone Number [facility] [address] [place] [address] * (ABNORMAL) GLUCOSE METER POC (06/06/2025 4:50 PM EDT) Glucose Meter POC 161(H) 70 - 100 mg/dL 06/06/2025 4:52 PM EDT [facility] Sample Type Capillary 06/06/2025 4:52 PM EDT [facility] Patient Status Non-Critical Patient 06/06/2025 4:52 PM EDT [facility] Blood BLOOD SPECIMEN / Unknown 06/06/2025 4:50 PM EDT 06/06/2025 4:52 PM EDT Result [facility] Hugh Zamarripa MD POINT OF CARE TEST ORDER PEDRO LUIS Final Result Performing Organization Address [facility] [place]/[facility] de Phone Number [facility] [address] [place] [address] * (ABNORMAL) GLUCOSE METER POC (06/06/2025 12:37 PM EDT) Glucose Meter POC 137(H) 70 - 100 mg/dL 06/06/2025 12:38 PM EDT [facility] Sample Type Capillary 06/06/2025 12:38 PM EDT [facility] Patient Status Non-Critical Patient 06/06/2025 12:38 PM EDT [facility] Blood BLOOD SPECIMEN / Unknown 06/06/2025 12:37 PM EDT 06/06/2025 12:38 PM EDT Hugh Zamarripa MD POINT OF CARE TEST ORDER PEDRO LUIS Final Result Performing Organization Address [facility] [place]/[facility] Co de Phone Number [facility] [address] [place] [address] * (ABNORMAL) GLUCOSE METER POC (06/06/2025 7:53 AM EDT) Glucose Meter POC 105(H) 70 - 100 mg/dL 06/06/2025 7:54 AM EDT [facility] Sample Type Capillary 06/06/2025 7:54 AM EDT [facility] Patient Status Non-Critical Patient 06/06/2025 7:54 AM EDT [facility] Blood BLOOD SPECIMEN / Unknown 06/06/2025 7:53 AM EDT 06/06/2025 7:54 AM EDT Hugh Zamarripa MD POINT OF CARE TEST ORDER PEDRO LUIS Final Result Performing Organization Address [facility] [place]/[facility] de Phone Number [facility] [address] [place] [address] * (ABNORMAL) BASIC METABOLIC PANEL (06/06/2025 5:26 AM EDT) Sodium 145 136 - 145 mmol/L 06/06/2025 5:48 AM EDT [facility] Potassium 3.1(L) 3.5 - 5.0 mmol/L 06/06/2025 5:48 AM EDT [facility] Chloride 104 98 - 107 mmol/L 06/06/2025 5:48 AM EDT [facility] Total CO2 29 22 - 29 mmol/L 06/06/2025 5:48 AM EDT [facility] Anion Gap 12 7 - 16 mmol/L 06/06/2025 5:48 AM EDT [facility] Calcium 8.8 8.8 - 10.4 mg/dL 06/06/2025 5:48 AM EDT [facility] Glucose Lvl 132(H) 70 - 99 mg/dL 06/06/2025 5:48 AM EDT [facility] BUN 18 8 - 23 mg/dL 06/06/2025 5:48 AM EDT [facility] Creatinine 0.67 0.51 - 1.30 mg/dL 06/06/2025 5:48 AM EDT [facility] eGFR (CKD-EPIcr 2020) 86 >=60 mL/min/1.7 3 m2 06/06/2025 5:48 AM EDT [facility] Comment:Estimated GFR was ca lculated using the CKD-EPIcr (2020) equation refit without race. The equation is recommended by the [employer] - [place] [employer] Neph[employer] Task Force. Blood VENOUS BLOOD / Unknown Venipuncture / Unknown 06/06/2025 5:26 AM EDT 06/06/2025 5:26 AM EDT us Viral Sargent V, DO CHEMISTRY ORDERABLES Final Res ult [facility] [address] [place] [address] * (ABNORMAL) CBC WITH DIFF (06/06/2025 5:26 AM EDT) WBC 11.9(H) 3.7 - 10.3 x10(3)/mcL 06/06/2025 5:30 AM EDT [facility] RBC 3.98 3.90 - 5.20 x10(6)/mcL 06/06/2025 5:30 AM EDT [facility] Hgb 12.0 11.2 - 15.7 g/dL 06/06/2025 5:30 AM EDT [facility] Hct 37.1 34.0 - 45.0 % 06/06/2025 5:30 AM EDT [facility] MCV 93.2 80.0 - 100.0 fL 06/06/2025 5:30 AM EDT [facility] MCH 30.2 26.0 - 34.0 pg 06/06/2025 5:30 AM EDT [facility] MCHC 32.3 30.7 - 35.5 g/dL 06/06/2025 5:30 AM EDT [facility] RDW 12.5 <=14.9 % 06/06/2025 5:30 AM [facility] Platelet 345 155 - 369 x10(3)/[facility] 06/06/2025 5:30 AM [facility] MPV 9.1 8.8 - 12.5 fL 06/06/2025 5:30 AM [facility] Neut Percent 76.0 % 06/06/2025 5:30 AM [facility] Comment:Neutrophils equals s egs plus bands Imm Gran% 0.4 % 06/06/2025 5:30 AM [facility] Comment:Automated count of m etamyelocytes, myelocytes and promyelocytes. Lymph Percent 14.7 % 06/06/2025 5:30 AM [facility] [place] Percent 6.8 % 06/06/2025 5:30 AM [facility] Eos Percent 1.8 % 06/06/2025 5:30 AM [facility] Baso Percent 0.3 % 06/06/2025 5:30 AM [facility] Neut # 9.1(H) 1.6 - 6.1 x10(3)/[facility] 06/06/2025 5:30 AM [facility] Comment:Neutrophils equals s egs plus bands IMMGRAN# 0.1 0.0 - 0.1 x10(3)/[facility] 06/06/2025 5:30 AM [facility] Comment:Automated count of m etamyelocytes, myelocytes and promyelocytes. An absolute IG <0.1 is reported as 0.0. Lymph # 1.8 1.2 - 3.9 x10(3)/[facility] 06/06/2025 5:30 AM [facility] [place] # 0.8 0.3 - 0.9 x10(3)/[facility] 06/06/2025 5:30 AM [facility] Eos# 0.2 0.0 - 0.5 x10(3)/[facility] 06/06/2025 5:30 AM [facility] Baso # 0.0 0.0 - 0.1 x10(3)/[facility] 06/06/2025 5:30 AM [facility] Blood VENOUS BLOOD / Unknown Venipuncture / Unknown 06/06/2025 5:26 AM EDT 06/06/2025 5:26 AM EDT Viral Sargent V, DO HEMATOLOGY ORDERABLES Final Re sult [facility] [address] [place] [address] * (ABNORMAL) GLUCOSE METER POC (06/05/2025 8:23 PM EDT) Glucose Meter POC 184(H) 70 - 100 mg/dL 06/05/2025 8:25 PM EDT [facility] Sample Type Capillary 06/05/2025 8:25 PM EDT [facility] Patient Status Non-Critical Patient 06/05/2025 8:25 PM EDT [facility] Blood BLOOD SPECIMEN / Unknown 06/05/2025 8:23 PM EDT 06/05/2025 8:25 PM EDT Hugh Zamarripa MD POINT OF CARE TEST ORDER PEDRO LUIS Final Result Performing Organization Address [facility] [place]/[facility] de Phone Number [facility] [address] [place] [address] * (ABNORMAL) GLUCOSE METER POC (06/05/2025 5:14 PM EDT) Glucose Meter POC 151(H) 70 - 100 mg/dL 06/05/2025 5:15 PM EDT [facility] Sample Type Capillary 06/05/2025 5:15 PM EDT [facility] Patient Status Non-Critical Patient 06/05/2025 5:15 PM EDT [facility] Blood BLOOD SPECIMEN / Unknown 06/05/2025 5:14 PM EDT 06/05/2025 5:15 PM EDT Hugh Zamarripa MD POINT OF CARE TEST ORDER PEDRO LUIS Final Result Performing Organization Address City/[facility]/ZIP Co de Phone Number [facility] [address] [place] [address] * (ABNORMAL) GLUCOSE METER POC (06/05/2025 12:00 PM EDT) Glucose Meter POC 132(H) 70 - 100 mg/dL 06/05/2025 12:01 PM EDT [facility] Sample Type Capillary 06/05/2025 12:01 PM EDT [facility] Patient Status Non-Critical Patient 06/05/2025 12:01 PM EDT [facility] Blood BLOOD SPECIMEN / Unknown 06/05/2025 12:00 PM EDT 06/05/2025 12:01 PM EDT Hugh Zamarripa MD POINT OF CARE TEST ORDER PEDRO LUIS Final Result Performing Organization Address City/[facility]/ZIP Co de Phone Number [facility] [address] [place] [address] * (ABNORMAL) GLUCOSE METER POC (06/05/2025 7:52 AM EDT) Glucose Meter POC 157(H) 70 - 100 mg/dL 06/05/2025 7:53 AM EDT [facility] Sample Type Capillary 06/05/2025 7:53 AM EDT [facility] Patient Status Non-Critical Patient 06/05/2025 7:53 AM EDT [facility] Blood BLOOD SPECIMEN / Unknown 06/05/2025 7:52 AM EDT 06/05/2025 7:53 AM EDT Hugh Zamarripa MD POINT OF CARE TEST ORDER PEDRO LUIS Final Result [facility] [address] [place] [address] * (ABNORMAL) GLUCOSE METER POC (06/04/2025 9:05 PM EDT) Glucose Meter POC 165(H) 70 - 100 mg/dL 06/04/2025 9:07 PM EDT [facility] Sample Type Capillary 06/04/2025 9:07 PM EDT [facility] Patient Status Non-Critical Patient 06/04/2025 9:07 PM EDT [facility] Blood BLOOD SPECIMEN / Unknown 06/04/2025 9:05 PM EDT 06/04/2025 9:07 PM EDT Hugh Zamarripa MD POINT OF CARE TEST ORDER PEDRO LUIS Final Result Performing Organization Address City/[facility]/ZIP Co de Phone Number [facility] [address] [place] [address] * (ABNORMAL) GLUCOSE METER POC (06/04/2025 5:06 PM EDT) Glucose Meter POC 124(H) 70 - 100 mg/dL 06/04/2025 5:08 PM EDT [facility] Sample Type Capillary 06/04/2025 5:08 PM EDT [facility] Patient Status Non-Critical Patient 06/04/2025 5:08 PM EDT [facility] Blood BLOOD SPECIMEN / Unknown 06/04/2025 5:06 PM EDT 06/04/2025 5:08 PM EDT Hugh Zamarripa MD POINT OF CARE TEST ORDER PEDRO LUIS Final Result Performing Organization Address City/[facility] Co de Phone Number [facility] [address] [place] [address] * (ABNORMAL) GLUCOSE METER POC (06/04/2025 12:01 PM EDT) Glucose Meter POC 199(H) 70 - 100 mg/dL 06/04/2025 12:02 PM EDT [facility] Sample Type Capillary 06/04/2025 12:02 PM EDT [facility] Patient Status Non-Critical Patient 06/04/2025 12:02 PM EDT [facility] Blood BLOOD SPECIMEN / Unknown 06/04/2025 12:01 PM EDT 06/04/2025 12:02 PM EDT Hugh Zamarripa MD POINT OF CARE TEST ORDER PEDRO LUIS Final Result Performing Organization Address City/[facility] de Phone Number [facility] [address] [place] [address] * (ABNORMAL) GLUCOSE METER POC (06/04/2025 8:52 AM EDT) Glucose Meter POC 164(H) 70 - 100 mg/dL 06/04/2025 8:54 AM EDT [facility] Sample Type Capillary 06/04/2025 8:54 AM EDT [facility] Patient Status Non-Critical Patient 06/04/2025 8:54 AM EDT [facility] Blood BLOOD SPECIMEN / Unknown 06/04/2025 8:52 AM EDT 06/04/2025 8:54 AM EDT Hugh Zamarripa MD POINT OF CARE TEST ORDER PEDRO LUIS Final Result Performing Organization Address [facility] [place]/[facility] de Phone Number [facility] [address] [place] [address] * (ABNORMAL) GLUCOSE METER POC (06/03/2025 8:26 PM EDT) Glucose Meter POC 236(H) 70 - 100 mg/dL 06/03/2025 8:28 PM EDT [facility] Sample Type Capillary 06/03/2025 8:28 PM EDT [facility] Patient Status Non-Critical Patient 06/03/2025 8:28 PM EDT [facility] Blood BLOOD SPECIMEN / Unknown 06/03/2025 8:26 PM EDT 06/03/2025 8:28 PM EDT Hugh Zamarripa MD POINT OF CARE TEST ORDER PEDRO LUIS Final Result Performing Organization Address City/[facility] Co de Phone Number [facility] [address] [place] [address] * (ABNORMAL) GLUCOSE METER POC (06/03/2025 4:49 PM EDT) Glucose Meter POC 158(H) 70 - 100 mg/dL 06/03/2025 4:50 PM EDT [facility] Sample Type Capillary 06/03/2025 4:50 PM EDT [facility] Patient Status Non-Critical Patient 06/03/2025 4:50 PM EDT [facility] Blood BLOOD SPECIMEN / Unknown 06/03/2025 4:49 PM EDT 06/03/2025 4:50 PM EDT Hugh Zamarripa MD POINT OF CARE TEST ORDER PEDRO LUIS Final Result Performing Organization Address City/[facility]/ZIP Co de Phone Number [facility] [address] [place] [address] * (ABNORMAL) GLUCOSE METER POC (06/03/2025 11:16 AM EDT) Glucose Meter POC 157(H) 70 - 100 mg/dL 06/03/2025 11:18 AM EDT [facility] Sample Type Capillary 06/03/2025 11:18 AM EDT [facility] Patient Status Non-Critical Patient 06/03/2025 11:18 AM EDT [facility] Blood BLOOD SPECIMEN / Unknown 06/03/2025 11:16 AM EDT 06/03/2025 11:18 AM EDT Hugh Zamarripa MD POINT OF CARE TEST ORDER PEDRO LUIS Final Result Performing Organization Address City/[facility]/ZIP Co de Phone Number [facility] [address] [place] [address] * (ABNORMAL) GLUCOSE METER POC (06/03/2025 8:00 AM EDT) Glucose Meter POC 182(H) 70 - 100 mg/dL 06/03/2025 8:01 AM EDT [facility] Sample Type Capillary 06/03/2025 8:01 AM EDT [facility] Patient Status Non-Critical Patient 06/03/2025 8:01 AM EDT [facility] Blood BLOOD SPECIMEN / Unknown 06/03/2025 8:00 AM EDT 06/03/2025 8:01 AM EDT Hugh Zamarripa MD POINT OF CARE TEST ORDER PEDRO LUIS Final Result Performing Organization Address City/[facility]/ZIP Co de Phone Number [facility] [address] [place] [address] * (ABNORMAL) GLUCOSE METER POC (06/02/2025 9:00 PM EDT) Glucose Meter POC 192(H) 70 - 100 mg/dL 06/02/2025 9:02 PM EDT [facility] Sample Type Capillary 06/02/2025 9:02 PM EDT [facility] Patient Status Non-Critical Patient 06/02/2025 9:02 PM EDT [facility] Blood BLOOD SPECIMEN / Unknown 06/02/2025 9:00 PM EDT 06/02/2025 9:02 PM EDT Hugh Zamarripa MD POINT OF CARE TEST ORDER PEDRO LUIS Final Result Performing Organization Address [facility] [place]/[facility] Co de Phone Number [facility] [address] [place] [address] * (ABNORMAL) GLUCOSE METER POC (06/02/2025 4:25 PM EDT) Glucose Meter POC 131(H) 70 - 100 mg/dL 06/02/2025 4:27 PM EDT [facility] Sample Type Capillary 06/02/2025 4:27 PM EDT [facility] Patient Status Non-Critical Patient 06/02/2025 4:27 PM EDT [facility] Blood BLOOD SPECIMEN / Unknown 06/02/2025 4:25 PM EDT 06/02/2025 4:27 PM EDT Hugh Zamarripa MD POINT OF CARE TEST ORDER PEDRO LUIS Final Result Performing Organization Address City/[facility]/ZIP Co de Phone Number [facility] [address] [place] [address] * (ABNORMAL) GLUCOSE METER POC (06/02/2025 12:17 PM EDT) Glucose Meter POC 139(H) 70 - 100 mg/dL 06/02/2025 12:19 PM EDT [facility] Sample Type Capillary 06/02/2025 12:19 PM EDT [facility] Patient Status Non-Critical Patient 06/02/2025 12:19 PM EDT [facility] Blood BLOOD SPECIMEN / Unknown 06/02/2025 12:17 PM EDT 06/02/2025 12:19 PM EDT Hugh Zamarripa MD POINT OF CARE TEST ORDER PEDRO LUIS Final Result [facility] [address] [place] [address] * (ABNORMAL) GLUCOSE METER POC (06/02/2025 8:30 AM EDT) Glucose Meter POC 185(H) 70 - 100 mg/dL 06/02/2025 8:32 AM EDT [facility] Sample Type Capillary 06/02/2025 8:32 AM EDT [facility] Patient Status Non-Critical Patient 06/02/2025 8:32 AM EDT [facility] Blood BLOOD SPECIMEN / Unknown 06/02/2025 8:30 AM EDT 06/02/2025 8:32 AM EDT Hugh Zamarripa MD POINT OF CARE TEST ORDER PEDRO LUIS Final Result [facility] [address] [place] [address] * (ABNORMAL) GLUCOSE METER POC (06/01/2025 8:00 PM EDT) Glucose Meter POC 251(H) 70 - 100 mg/dL 06/01/2025 8:04 PM EDT [facility] Sample Type Capillary 06/01/2025 8:04 PM EDT [facility] Patient Status Non-Critical Patient 06/01/2025 8:04 PM EDT [facility] Blood BLOOD SPECIMEN / Unknown 06/01/2025 8:00 PM EDT 06/01/2025 8:04 PM EDT Hugh Zamarripa MD POINT OF CARE TEST ORDER PEDRO LUIS Final Result Performing Organization Address [facility] [place]/[facility]/ZIP Co de Phone Number [facility] [address] [place] [address] * (ABNORMAL) GLUCOSE METER POC (06/01/2025 4:41 PM EDT) Glucose Meter POC 247(H) 70 - 100 mg/dL 06/01/2025 4:43 PM EDT [facility] Sample Type Capillary 06/01/2025 4:43 PM EDT [facility] Patient Status Non-Critical Patient 06/01/2025 4:43 PM EDT [facility] Blood BLOOD SPECIMEN / Unknown 06/01/2025 4:41 PM EDT 06/01/2025 4:43 PM EDT Hugh Zamarripa MD POINT OF CARE TEST ORDER PEDRO LUIS Final Result Performing Organization Address [facility] [place]/[facility] Co de Phone Number [facility] [address] [place] [address] * (ABNORMAL) GLUCOSE METER POC (06/01/2025 12:17 PM EDT) Glucose Meter POC 235(H) 70 - 100 mg/dL 06/01/2025 12:19 PM EDT [facility] Sample Type Capillary 06/01/2025 12:19 PM EDT [facility] Patient Status Non-Critical Patient 06/01/2025 12:19 PM EDT [facility] Blood BLOOD SPECIMEN / Unknown 06/01/2025 12:17 PM EDT 06/01/2025 12:19 PM EDT Hugh Zamarripa MD POINT OF CARE TEST ORDER PEDRO LUIS Final Result Performing Organization Address City/[facility]/ZIP Co de Phone Number [facility] [address] [place] [address] * (ABNORMAL) GLUCOSE METER POC (06/01/2025 8:36 AM EDT) Glucose Meter POC 242(H) 70 - 100 mg/dL 06/01/2025 8:37 AM EDT [facility] Sample Type Capillary 06/01/2025 8:37 AM EDT [facility] Patient Status Non-Critical Patient 06/01/2025 8:37 AM EDT [facility] Blood BLOOD SPECIMEN / Unknown 06/01/2025 8:36 AM EDT 06/01/2025 8:37 AM EDT Hugh Zamarripa MD POINT OF CARE TEST ORDER PEDRO LUIS Final Result Performing Organization Address [facility] [place]/[facility] Co de Phone Number [facility] [address] [place] [address] * (ABNORMAL) GLUCOSE METER POC (05/31/2025 8:03 PM EDT) Glucose Meter POC 202(H) 70 - 100 mg/dL 05/31/2025 8:04 PM EDT [facility] Sample Type Capillary 05/31/2025 8:04 PM EDT [facility] Patient Status Non-Critical Patient 05/31/2025 8:04 PM EDT [facility] Blood BLOOD SPECIMEN / Unknown 05/31/2025 8:03 PM EDT 05/31/2025 8:04 PM EDT Hugh Zamarripa MD POINT OF CARE TEST ORDER PEDRO LUIS Final Result Performing Organization Address City/[facility]/ZIP Co de Phone Number [facility] [address] [place] [address] * PARTIAL THROMBOPLASTIN TIME (05/31/2025 4:43 PM EDT) PTT 31.8 25.7 - 36.8 second(s) 05/31/2025 4:58 PM EDT [facility] Comment: Therapeutic range for [...] PM EDT 05/31/2025 4:47 PM EDT Hugh Zmaarripa MD HEMATOLOGY ORDERABLES Fi nal Result Performing Organization Address [facility] [place]/[facility] de Phone Number [facility] [address] [place] [address] * (ABNORMAL) PT / INR (05/31/2025 4:43 PM EDT) PT 13.7(H) 10.5 - 13.6 second(s) 05/31/2025 4:58 PM EDT [facility] INR 1.19(H) 0.91 - 1.18 (ratio) 05/31/2025 4:58 PM EDT [facility] Comment: Level of Therapy Indications Target INR Range Standard Dose Treatment and prophylaxis of venous 2.0 - 3.0 thrombosis, pulmonary embolism High Dose High risk patients with mechanical 2.5 - 3.5 heart valves Blood VENOUS BLOOD / Unknown Venipuncture / Unknown 05/31/2025 4:43 PM EDT 05/31/2025 4:47 PM EDT Hugh Zamarripa MD HEMATOLOGY ORDERABLES Fi nal Result Performing Organization Address [facility] [place]/[facility] de Phone Number [facility] [address] [place] [address] * (ABNORMAL) CBC WITH DIFF (05/31/2025 4:43 PM EDT) [facility] Signature WBC 11.6(H) 3.7 - 10.3 x10(3)/mcL 05/31/2025 4:51 PM EDT [facility] RBC 4.09 3.90 - 5.20 x10(6)/mcL 05/31/2025 4:51 PM EDT [facility] Hgb 12.1 11.2 - 15.7 g/dL 05/31/2025 4:51 PM EDT [facility] Hct 38.3 34.0 - 45.0 % 05/31/2025 4:[facility] MCV 93.6 80.0 - 100.0 fL 05/31/2025 4:51 PM EDT [facility] MCH 29.6 26.0 - 34.0 pg 05/31/2025 4:51 [facility] MCHC 31.6 30.7 - 35.5 g/dL 05/31/2025 4:51 PM EDT [facility] RDW 12.1 <=14.9 % 05/31/2025 4:51 [facility] Platelet 291 155 - 369 x10(3)/mcL 05/31/2025 4:51 PM EDT [facility] MPV 9.2 8.8 - 12.5 fL 05/31/2025 4:51 PM EDT [facility] Neut Percent 71.9 % 05/31/2025 4:51 PM EDT [facility] Comment:Neutrophils equals s egs plus bands Imm Gran% 0.2 % 05/31/2025 4:51 PM [facility] Comment:Automated count of m etamyelocytes, myelocytes and promyelocytes. Lymph Percent 13.9 % 05/31/2025 4:51 PM EDT [facility] [place] Percent 12.8 % 05/31/2025 4:51 PM EDT [facility] Eos Percent 0.9 % 05/31/2025 4:51 PM EDT [facility] Baso Percent 0.3 % 05/31/2025 4:51 PM [facility] Neut # 8.3(H) 1.6 - 6.1 x10(3)/[facility] 05/31/2025 4:51 PM EDT [facility] Comment:Neutrophils equals s egs plus bands IMMGRAN# 0.0 0.0 - 0.1 x10(3)/[facility] 05/31/2025 4:51 PM EDT [facility] Comment:Automated count of m etamyelocytes, myelocytes and promyelocytes. An absolute IG <0.1 is reported as 0.0. Lymph # 1.6 1.2 - 3.9 x10(3)/[facility] 05/31/2025 4:51 PM EDT [facility] [place] # 1.5(H) 0.3 - 0.9 x10(3)/[facility] 05/31/2025 4:51 PM EDT [facility] Eos# 0.1 0.0 - 0.5 x10(3)/[facility] 05/31/2025 4:51 PM EDT [facility] Baso # 0.0 0.0 - 0.1 x10(3)/[facility] 05/31/2025 4:51 PM EDT [facility] Blood VENOUS BLOOD / Unknown Venipuncture / Unknown 05/31/2025 4:43 PM EDT 05/31/2025 4:47 PM EDT Hugh Zamarripa MD HEMATOLOGY ORDERABLES Fi nal Result [facility] [address] [place], [place] [id number] * (ABNORMAL) GLUCOSE METER POC (05/31/2025 4:37 PM EDT) [facility] Glucose Meter POC 175(H) 70 - 100 mg/dL 05/31/2025 4:40 PM EDT [facility] Sample Type Capillary 05/31/2025 4:40 PM EDT [facility] Patient Status Non-Critical Patient 05/31/2025 4:40 PM EDT [facility] Blood BLOOD SPECIMEN / Unknown 05/31/2025 4:37 PM EDT 05/31/2025 4:40 PM EDT Hugh Zamarripa MD POINT OF CARE TEST ORDER PEDRO LUIS Final Result Performing Organization Address City/[facility] Co de Phone Number [facility] [address] [place] [address] * (ABNORMAL) GLUCOSE METER POC (05/31/2025 11:41 AM EDT) Glucose Meter POC 195(H) 70 - 100 mg/dL 05/31/2025 11:42 AM EDT [facility] Sample Type Capillary 05/31/2025 11:42 AM EDT [facility] Patient Status Non-Critical Patient 05/31/2025 11:42 AM EDT [facility] Blood BLOOD SPECIMEN / Unknown 05/31/2025 11:41 AM EDT 05/31/2025 11:42 AM EDT Hugh Zamarripa MD POINT OF CARE TEST ORDER PEDRO LUIS Final Result Performing Organization Address [facility] de Phone Number [facility] [address] [place] [address] * (ABNORMAL) GLUCOSE METER POC (05/31/2025 8:12 AM EDT) Glucose Meter POC 233(H) 70 - 100 mg/dL 05/31/2025 8:13 AM EDT [facility] Sample Type Capillary 05/31/2025 8:13 AM EDT [facility] Patient Status Non-Critical Patient 05/31/2025 8:13 AM EDT [facility] Blood BLOOD SPECIMEN / Unknown 05/31/2025 8:12 AM EDT 05/31/2025 8:13 AM EDT Hugh Zamarripa MD POINT OF CARE TEST ORDER PEDRO LUIS Final Result Performing Organization Address City/[facility] Co de Phone Number [facility] [address] [place] [address] * (ABNORMAL) GLUCOSE METER POC (05/30/2025 7:58 PM EDT) Glucose Meter POC 272(H) 70 - 100 mg/dL 05/30/2025 8:01 PM EDT [facility] Sample Type Capillary 05/30/2025 8:01 PM EDT [facility] Patient Status Non-Critical Patient 05/30/2025 8:01 PM EDT [facility] Blood BLOOD SPECIMEN / Unknown 05/30/2025 7:58 PM EDT 05/30/2025 8:01 PM EDT Hugh Zamarripa MD POINT OF CARE TEST ORDER PEDRO LUIS Final Result Performing Organization Address City/[facility]/ZIP Co de Phone Number [facility] [address] [place] [address] * (ABNORMAL) GLUCOSE METER POC (05/30/2025 5:07 PM EDT) Glucose Meter POC 269(H) 70 - 100 mg/dL 05/30/2025 5:09 PM EDT [facility] Sample Type Capillary 05/30/2025 5:09 PM EDT [facility] Patient Status Non-Critical Patient 05/30/2025 5:09 PM EDT [facility] Blood BLOOD SPECIMEN / Unknown 05/30/2025 5:07 PM EDT 05/30/2025 5:09 PM EDT Hugh Zamarripa MD POINT OF CARE TEST ORDER PEDRO LUIS Final Result Performing Organization Address City/[facility]/ZIP Co de Phone Number [facility] [address] [place] [address] * CT ABDOMEN PELVIS HEMATURIA/RENAL MASS PROTOCOL [...] - 1.3 mg/dL 05/30/2025 1:28 PM EDT [facility] Blood BLOOD SPECIMEN / Unknown 05/30/2025 1:26 PM EDT 05/30/2025 1:28 PM EDT Hugh Zamarripa MD POINT OF CARE TEST ORDER PEDRO LUIS Final Result Performing Organization Address City/[facility]/ZIP Co de Phone Number [facility] [address] [place] [address] * (ABNORMAL) GLUCOSE METER POC (05/30/2025 9:02 AM EDT) Glucose Meter POC 272(H) 70 - 100 mg/dL 05/30/2025 9:03 AM EDT [facility] Sample Type Capillary 05/30/2025 9:03 AM EDT [facility] Patient Status Non-Critical Patient 05/30/2025 9:03 AM EDT [facility] Blood BLOOD SPECIMEN / Unknown 05/30/2025 9:02 AM EDT 05/30/2025 9:03 AM EDT Hugh Zamarripa MD POINT OF CARE TEST ORDER PEDRO LUIS Final Result Performing Organization Address City/[facility]/ZIP Co de Phone Number [facility] [address] [place] [address] * (ABNORMAL) GLUCOSE METER POC (05/29/2025 9:25 PM EDT) Glucose Meter POC 214(H) 70 - 100 mg/dL 05/29/2025 9:26 PM EDT [facility] Sample Type Capillary 05/29/2025 9:26 PM EDT [facility] Patient Status Non-Critical Patient 05/29/2025 9:26 PM EDT [facility] Blood BLOOD SPECIMEN / Unknown 05/29/2025 9:25 PM EDT 05/29/2025 9:26 PM EDT Hugh Zamarripa MD POINT OF CARE TEST ORDER PEDRO LUIS Final Result [facility] [address] [place] [address] documented in this encounter Visit Diagnoses Diagnosis Fractured hip, left, closed, initial encounter (HCC)- Primary Resides in retirement facility 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 Resides in retirement facilityIndications:R esides in retirement facility Given 06/09/2025 11:23 AM EDT 650 [...] Discontinued, Dx: 1. Coronary artery disease involving qagan tay[place]ung[place] coronary artery of qagan [place] heart without angina pectorisIndications:C oronary artery disease involving qagan tayagungin coronary artery of qagan [place] heart without angina pectoris Given 06/12/2025 9:09 AM EDT 81 mg cholecalciferol (vitamin D3) tablet 1,000 Units 1,000 Units, Oral, DAILY, First dose on Thu05/30/25 at 0900, Until Discontinued, Dx: 1. Resides in retirement facilityIndications:R esides in retirement facility Given 06/12/2025 9:10 AM EDT 1,000 Units citalopram (CeleXA) tablet 5 mg 5 mg, Oral, 2 TIMES DAILY, First dose on Thu05/29/25 at 2115, Until Discontinued, Dx: 1. Resides in retirement facilityIndications:m lazarus depressive disorder Given 06/12/2025 9:10 AM EDT 5 mg clopidogreL (PLAVIX) tablet 75 mg 75 mg, Oral, DAILY, First dose on Thu05/30/25 at 0900, Until Discontinued, Dx: 1. Coronary artery disease involving qagan [place] coronary artery of qagan [place] heart without angina pectorisIndications:C oronary artery disease involving qagan tay[place] coronary artery of qagan [place] heart without angina pectoris Given 06/12/2025 9:09 [...] 0745, Until Discontinued, Dx: 1. Resides in retirement facilityIndications:R esides in retirement facility Given 05/31/2025 11:47 AM EDT 40 mg Abdominal Tissue fluocinonide (LIDEX) 0.05 % cream Topical, 2 TIMES DAILY PRN, Starting on Thu05/30/25 at 0607, Until Thu06/12/25 at 1525, Other, skin irritation, Application site: skin irritation, Dx: 1. Resides in retirement facilityIndications:R esides in retirement facility fosfomycin (MONUROL) packet 3 g 3 [...] use. Supplied by Nutrition ServicesIndications:R esides in retirement facility,Closed fracture of left femur with routine [...] BEDTIME, First dose (after last modification) on [place] 06/04/25 at 1800, Until Discontinued, Blood Glucose [...] Subcutaneous, EVERY EVENING (INSULIN), First dose on [facility] 06/01/25 at 1900, Until Discontinued, A [...] use. Supplied by Nutrition ServicesIndications:R capri in retirement facility,Closed fracture of left femur with routine [...] , Dx: 1. Coronary artery disease involving qagan tayagung[place] coronary artery of qagan [place] heart without angina pectorisIndications:C oronary artery disease involving qagan tayagung[place] coronary artery of qagan [place]ay[place] heart without angina pectoris Given 06/12/2025 9:07 [...] at 1525, Sleep, Dx: 1. Resides in retirement facilityIndications:R esides in retirement facility Given 06/10/2025 9:52 PM EDT 5 mg metFORMIN (GLUCOPHAGE XR) ER tablet 500 mg 500 mg, Oral, 2 TIMES DAILY WITH MEALS, First dose on Thu05/30/25 at 0800, Until Discontinued, Take with food., Dx: 1. Resides in retirement facilityIndications:t ype 2 diabetes mellitus Given 06/12/2025 9:10 AM EDT 500 mg metoprolol (LOPRESSOR) tablet 25 mg 25 mg, Oral, 2 TIMES DAILY, First dose on Thu05/29/25 at 2115, Until Discontinued, Preferably taken with or immediately following meals. Take consistently with relation to food., Dx: 1. Resides in retirement facilityIndications:h ypertension Given 06/12/2025 9:08 AM EDT [...] crush or chew, Dx: 1. Resides in retirement facilityIndications:h eartburn Given 06/11/2025 8:43 PM EDT [...] unrelieved by Senokot-S, Dx: 1. Resides in retirement facilityIndications:R esides in retirement facility potassium chloride (KLOR-CON) tablet 20 mEq [...] 2115, Until Discontinued, Dx: 1. Resides in retirement facilityIndications:R esides in retirement facility Given 06/11/2025 8:43 PM EDT 5 mg Saccharomyces boulardii (FLORASTOR) capsule 250 mg 250 mg, Oral, 2 TIMES DAILY, First dose on Thu05/30/25 at 0900, Until Discontinued, If for feeding tube administration, open capsule/packet outside of patient's room and dissolve contents in 8-12 oz. of liquid, Dx: 1. Resides in retirement facilityIndications:R esides in retirement facility Given 06/12/2025 9:10 AM EDT 250 mg senna-docusate (SENOKOT-S) 8.6-50 mg per tablet 2 Tablet 2 Tablet, Oral, 2 TIMES DAILY PRN, Starting on Thu05/29/25 at 1833, Until Thu06/12/25 at 1525, Constipation, Use first for constipation, Dx: 1. Resides in retirement facilityIndications:R esides in retirement facility sodium chloride 0.9 % 250 mL [...] Reason: Other - Comment: PRN dose of [place] given prior) 0601 (Given - Provider: Stephany [...] 08 (Not Given - Provider: Clarisa Strong FLOOR STEWARD/STEWARDESS - Reason: Patient not available)0835 (Not Given - Provider: Clarisa Strong FLOOR STEWARD/STEWARDESS - Reason: Patient not available)0851 (Given - Provider: Clarisa Strong FLOOR STEWARD/STEWARDESS)1104 (Given - Provider: Clarisa Strong FLOOR STEWARD/STEWARDESS - Comment: Pt. requested tx)1601 (Given - Provider: Clarisa Strong FLOOR STEWARD/STEWARDESS)2007 (Given - Provider: Kristian Arce FLOOR STEWARD/STEWARDESS) 0900 (Given - Provider: Clarisa Strong FLOOR STEWARD/STEWARDESS)1236 (Not Given - Provider: Clarisa Strong FLOOR STEWARD/STEWARDESS - Reason: Patient not available - Comment: eating)1252 (Not Given - Provider: Clarisa Strong FLOOR STEWARD/STEWARDESS - Reason: Patient Declined - Comment: confused, strongly refused tx.)1637 (Given - Provider: Clarisa Strong FLOOR STEWARD/STEWARDESS)205 (Given - Provider: Kristian Arce FLOOR STEWARD/STEWARDESS) 0809 (Given - Provider: Chery Benites) aspirin chewable tablet 81 mg 81 mg, Oral, DAILY, First dose on Thu05/30/25 at 0900, Until Discontinued, Dx: 1. 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 Resides in retirement facility 0820 (Given - Provider: Janet Porras RN) 0933 (Given - Provider: Janet Porras RN) 0910 (Given - Provider: Riki Khan, RN) citalopram (CeleXA) tablet 5 mg 5 mg, Oral, 2 TIMES DAILY, First dose on Thu05/29/25 at 2115, Until Discontinued, Dx: 1. Resides in retirement facility 0822 (Given - Provider: Janet Porars RN)2151 (Given - Provider: Stephany Lopez LPN) 0933 (Given - Provider: Janet Porras RN)2043 (Given - Provider: Stephany Lopez LPN) 09 (Given - Provider: Riki Khan, SANTOS) clopidogreL (PLAVIX) tablet 75 mg 75 mg, Oral, DAILY, First dose on Thu05/30/25 at 0900, Until Discontinued, Dx: 1. Coronary artery disease involving [place] coronary artery of [place] heart without angina pectoris 08 (Given - [...] (HCC) 0800 (Non- Med Documentation - Provider: Jante Porras RN)1200 (Non- Med Documentation - Provider: [...] 20%. Waste Sort Code = [facility], Dx: 1. Type 2 diabetes mellitus without complication, without long-term current use of insulin ([facility]) 1800 (Given - Provider: Janet Porras RN) [...] , Dx: 1. Coronary artery disease involving [place] coronary artery of [place] heart without angina pectoris 08 (Given - Provider: Janet Porras RN) 0934 (Given - Provider: Janet Porras RN) 09 (Given - Provider: Riki Khan, SANTOS) magnesium oxide (MAG-OX) tablet 400 mg 400 mg, Oral, 2 TIMES DAILY, First dose on Thu06/11/25 at 0900, Until Discontinued, Dx: 1. Hypomagnesemia 932 (Given - Provider: Janet oPrras RN)2042 (Given - Provider: Stephany Lopez LPN) [...] Take with food., Dx: 1. Resides in retirement facility 0819 (Given - Provider: Janet Porras [...] relation to food., Dx: 1. Resides in retirement facility 0820 (Given - Provider: Janet Porras RN)2151 (Given - Provider: Stephany Lopez LPN) 09 (Given - Provider: Janet Porras RN)2043 (Given - Provider: Stephany Lopez LPN) 0908 (Given - Provider: Riki Khan, SANTOS) miconazole (MICATIN) 2 % powder Topical, 2 TIMES DAILY, 84 doses, First dose on Thu06/08/25 at 1045, Last dose on Thu07/19/25 at 2100, Application site: [facility], Dx: 1. Excoriation 0836 (Given - [...] crush or chew, Dx: 1. Resides in retirement facility 2151 (Given - Provider: Stephany Lopez [...] 2115, Until Discontinued, Dx: 1. Resides in retirement facility 2151 (Given - Provider: Stephany Lopez LPN) 2042 (Given - Provider: Stephany Lopez LPN) Saccharomyces boulardii (FLORASTOR) capsule 250 mg 250 mg, Oral, 2 TIMES DAILY, First dose on Thu05/30/25 at 0900, Until Discontinued, If for feeding tube administration, open capsule/packet outside of patient's room and dissolve contents in 8-12 oz. of liquid, Dx: 1. Resides in retirement facility 0820 (Given - Provider: Janet Porras, [...] site: skin irritation, Dx: 1. Resides in retirement facility glucagon (GLUCAGEN) injection 1 mg(Linked Group [...] complication, without long-term current use of insulin ([facility]) HYDROcodone-acetaminophen (NORCO) 5-325 mg per tablet 1 [...] at 1525, Sleep, Dx: 1. Resides in retirement facility 2151 (Given - Provider: Stephany Lopez [...] unrelieved by Senokot-S, Dx: 1. Resides in retirement facility senna-docusate (SENOKOT-S) 8.6-50 mg per tablet 2 Tablet 2 Tablet, Oral, 2 TIMES DAILY PRN, Starting on Thu05/29/25 at 1833, Until Thu06/12/25 at 1525, Constipation, Use first for constipation, Dx: 1. Resides in retirement facility sterile water injection 1 mL(Linked Group 4) 1 mL, Injection, PRN, Starting on Thu05/30/25 at 1723, Until Thu06/12/25 at 1525, Use for drug dilution, Use to dilute and administer glucagon injection, Insulin Calculator, Dx: 1. Type 2 diabetes mellitus without complication, without long-term current use of insulin ([facility]) Linked Groups Order Group 1: albuterol-ipratropium (DUO-NEB) [...] complication, without long-term current use of insulin ([facility]) And insulin aspart U-100 (NovoLOG) injection 0-40 [...] complication, without long-term current use of insulin ([facility]) Group 3: magnesium sulfate in dextrose 5% [...] complication, without long-term current use of insulin ([facility]) And sterile water injection 1 mLJump to med 1 mL, Injection, PRN, Starting on Thu05/30/25 at 1723, Until Thu06/12/25 at 1525, Use for drug dilution, Use to dilute and administer glucagon injection, Insulin Calculator, Dx: 1. Type 2 diabetes mellitus without complication, without long- term current use of insulin ([facility]) Group 5: ondansetron (ZOFRAN) injection 4 mgJump [...] IP CONSULT TO PHYSICAL THERAPY 1 05/29/2025 [employer] LO[employer]ER Count Last Ordered Date First Orde red Date IP CONSULT TO SPEECH THERAPY 1 06/05/2025 ONGOING SPEECH THERAPY PER PLAN OF CARE 1 1 Admission Count Last Ordered Date First Orde red Date ADMIT 1 05/29/2025 Discharge Count Last Ordered Date First Orde red Date DISCHARGE PATIENT 1 06/12/2025 documented in this encounter
[2025-06-13 23:36] VITALS: BP 167/64; PULSE 75; RESP 18; TEMP 36.8; O2SAT 93; BMI 27.4
--- NOTE | 2025-06-13 23:42 | CT_ITS ---
PROCEDURE INFORMATION: Exam: CTA Chest With Contrast Exam date and time: 06/14/2025 12:49 AM Age: 84 years old Clinical indication: Shortness of breath; Additional info: SOA recent L hip surgery TECHNIQUE: Imaging protocol: Computed tomographic angiography of the chest with contrast. Exam focused on the arteries. 3D rendering (Not supervised by radiologist): MIP and/or 3D reconstructed images were created by the technologist. Radiation optimization: All CT scans at this facility use at least one of these dose optimization techniques: automated exposure control; mA and/or kV adjustment per patient size (includes targeted exams where dose is matched to clinical indication); or iterative reconstruction. Contrast material: ISOVUE; Contrast volume: 70 ml; Contrast route: INTRAVENOUS (IV); COMPARISON: CT ANGIO CHEST PE PROTOCOL 05/26/2025 12:02 AM FINDINGS: Pulmonary arteries: Normal. No pulmonary emboli. Aorta: Mild calcification of the coronary arteries and aorta. Motion limits assessment of the ascending aorta. The aorta is otherwise unremarkable. 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 Lungs: Unremarkable. No consolidation. No masses. Pleural spaces: Small bilateral pleural effusions. Heart: Unremarkable. No cardiomegaly. No pericardial effusion. Lymph nodes: Unremarkable. No enlarged lymph nodes. Bones/joints: Mild degenerative changes in the spine. Soft tissues: Unremarkable. IMPRESSION: 1. No pulmonary embolus. 2. Small bilateral pleural effusions. 3. 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
--- OUTSIDE RECORDS SUMMARY | 2025-06-13 23:42 | XMS_ITS | Encounter Summary ---
Author Organization Healthcare Address [address] [place] [address] Care Team Providers Care Extrusion Technician Name Role Phone Pcp, No Primary Care Provider Unavailabl e Encounter Details Date Type Department Care Team (Late st Contact Info) Description 05/12/2024 Orders Only External Location [address] [place] [address] Charlotte Jung, [address] [place] [address] Social History Tobacco Use Types [...] on filedocumented in this encounter Care Teams Extrusion Technician Relationship Specialty Start Date End Date Pcp, No [address] [place] [address] PCP - General Family Medicine 08/10/24 documented as of this encounter
--- OUTSIDE RECORDS SUMMARY | 2025-06-13 23:42 | XMS_ITS | Clinical Summary ---
Author Organization [facility] Address [address] [place] [address] Phone Care Team Providers Care Insurance Billing Clerk Name Role Phone Unavailable Primary Care Provider [...] melatonin 5 mg Oral TabletIndicatio ns:[place] Take 1 Tablet by mouth nightly as needed for Sleep. 025 Active Saccharomyces boulardii (FLORASTOR) 250 mg Oral CapsuleIndicati ons:[place] Take 1 Capsule by mouth 2 [...] -Continue losartan Coronary artery disease invo lving [place] coronary artery of [place] heart without angina pectoris 05/30/2025 Assessment & [...] 06/12/2025 11:24 AM EDT Hospital Encounter [facility] [address] [place] [phone] Hugh Zamarripa MD Coronary artery disease involving [place] coronary artery of [place] heart without angina pectoris (Primary Dx); [place] in [place]; Pneumonia due to infectious organism, unspecified [...] STAIN) Routine 06/07/2025 8:48 PM EDT EXTRA LAUGHLIN [...] - 100 mg/dL 06/12/2025 8:14 AM EDT [facility] Sample Type Capillary 06/12/2025 8:14 AM EDT [facility] Patient Status Non-Critical Patient 06/12/2025 8:14 AM EDT [facility] Blood BLOOD SPECIMEN / Unknown 06/12/2025 8:13 AM EDT 06/12/2025 8:14 AM EDT Hugh Zamarripa MD POINT OF CARE TEST ORDER PEDRO LUIS Final Result [facility] [address] [phone] * (ABNORMAL) CBC (06/12/2025 5:33 AM EDT) Only the most recent of2 resultswithin the time period is included. WBC 7.9 3.7 - 10.3 x10(3)/mcL 06/12/2025 5:36 AM EDT [facility] RBC 3.76(L) 3.90 - 5.20 x10(6)/mcL 06/12/2025 5:36 AM EDT [facility] Hgb 11.3 11.2 - 15.7 g/dL 06/12/2025 5:36 AM EDT [facility] Hct 35.6 34.0 - 45.0 % 06/12/2025 5:36 AM EDT [facility] MCV 94.7 80.0 - 100.0 fL 06/12/2025 5:36 AM EDT [facility] MCH 30.1 26.0 - 34.0 pg 06/12/2025 5:36 AM EDT [facility] MCHC 31.7 30.7 - 35.5 g/dL 06/12/2025 5:36 AM EDT [facility] RDW 13.0 <=14.9 % 06/12/2025 5:36 AM EDT [facility] Platelet 366 155 - 369 x10(3)/mcL 06/12/2025 5:36 AM EDT [facility] MPV 8.8 8.8 - 12.5 fL 06/12/2025 5:36 AM EDT [facility] Blood VENOUS BLOOD / Unknown Venipuncture / Unknown 06/12/2025 5:33 AM EDT 06/12/2025 5:33 AM EDT Jennifer Fontana APRN HEMATOLOGY ORDERABLES Fi nal Result Performing Organization Address [facility] de Phone Number [facility] [address] [place] [address] * MAGNESIUM LEVEL (06/12/2025 5:33 AM EDT) Only the most recent of3 resultswithin the time period is included. Magnesium 1.7 1.6 - 2.4 mg/dL 06/12/2025 5:55 AM EDT [facility] Blood VENOUS BLOOD / Unknown Venipuncture / Unknown 06/12/2025 5:33 AM EDT 06/12/2025 5:33 AM EDT Jennifer Fontana APRN CHEMISTRY ORDERABLES Fin al Result Performing Organization Address [facility] Co de Phone Number [facility] [address] [place] [address] * (ABNORMAL) BASIC METABOLIC PANEL (06/12/2025 5:33 AM EDT) Only the most recent of6 resultswithin the time period is included. Sodium 144 136 - 145 mmol/L 06/12/2025 5:55 AM EDT [facility] Potassium 4.0 3.5 - 5.0 mmol/L 06/12/2025 5:55 AM EDT [facility] Chloride 108(H) 98 - 107 mmol/L 06/12/2025 5:55 AM EDT [facility] Total CO2 27 22 - 29 mmol/L 06/12/2025 5:55 AM EDT [facility] Anion Gap 9 7 - 16 mmol/L 06/12/2025 5:55 AM EDT [facility] Calcium 8.5(L) 8.8 - 10.4 mg/dL 06/12/2025 5:55 AM EDT [facility] Glucose Lvl 137(H) 70 - 99 mg/dL 06/12/2025 5:55 AM EDT [facility] BUN 14 8 - 23 mg/dL 06/12/2025 5:55 AM EDT [facility] Creatinine 0.64 0.51 - 1.30 mg/dL 06/12/2025 5:55 AM EDT [facility] eGFR (CKD-EPIcr 2020) 86 >=60 mL/min/1.7 3 m2 06/12/2025 5:55 AM T [facility] Comment:Estimated GFR was ca lculated using the CKD-EPIcr (2020) equation refit without race. The equation is recommended by the National Kidney Foundation - [employer] [employer] Neph[employer] Task Force. Blood VENOUS BLOOD / Unknown Venipuncture / Unknown 06/12/2025 5:33 AM EDT 06/12/2025 5:33 AM EDT us Jennifer Fontana APRN CHEMISTRY ORDERABLES Fin al Result Performing Organization Address City/[facility]/ZIP Co de Phone Number [facility] [address] [place] [address] * EXTRA LAVENDER (06/11/2025 6:17 AM EDT) Blood VENOUS BLOOD / Unknown Venipuncture / Unknown 06/11/2025 6:17 AM EDT 06/11/2025 9:04 AM EDT Hugh Zamarripa MD HEMATOLOGY ORDERABLES Fi nal Result Performing Organization Address City/[facility]/ZIP Co de Phone Number [facility] [address] [place] [address] * REPEAT LACTIC ACID (06/11/2025 6:17 AM EDT) Only the most recent of4 resultswithin the time period is included. Lactic Acid 1.9 0.5 - 1.9 mmol/L 06/11/2025 6:31 AM EDT [facility] Blood VENOUS BLOOD / Unknown Venipuncture / Unknown 06/11/2025 6:17 AM EDT 06/11/2025 6:17 AM EDT Hugh Zamarripa MD CHEMISTRY ORDERABLES Fin al Result [facility] [address] [place] [address] * PROCALCITONIN (06/10/2025 11:52 AM EDT) Pathologist [facility] Procalcitonin 0.08 <=0.49 ng/mL 06/10/2025 7:35 PM EDT [facility] Blood VENOUS BLOOD / Unknown Venipuncture / Unknown 06/10/2025 11:52 AM EDT 06/10/2025 12:00 PM EDT Narrative [facility] - 06/10/2025 7:35 PM EDT Procalcitonin <0.50 [...] CHEMISTRY ORDERABLES Fin al Result [facility] [address] [place] [address], [place] [address] * (ABNORMAL) LACTIC ACID (06/10/2025 11:52 AM EDT) Lactic Acid 2.1(H) 0.5 - 1.9 mmol/L 06/10/2025 12:13 PM EDT [facility] Blood VENOUS BLOOD / Unknown Venipuncture / Unknown 06/10/2025 11:52 AM EDT 06/10/2025 12:00 PM EDT Jennifer Fontana APRN CHEMISTRY ORDERABLES Fin al Result Performing Organization Address [facility] Co de Phone Number [facility] [address] [place] [address] * XR CHEST AP PORTABLE (06/10/2025 11:38 [...] Color Yellow 06/07/2025 9:08 PM EDT [facility] UA Appear Clear Clear 06/07/2025 9:08 PM EDT [facility] UA Glucose Negative Negative mg/dL 06/07/2025 9:08 PM EDT [facility] UA Ketones Negative Negative mg/dL 06/07/2025 9:08 PM EDT [facility] UA Blood Negative Negative 06/07/2025 9:08 PM EDT [facility] UA pH 6.0 5.0 - 8.0 pH 06/07[facility]2025 [facility] Protein Trace(A) Negative mg/dL 06/07/2025 9:08 PM EDT [facility] UA Urobilinogen 0.2 <=1 mg/dL 9:08 [facility] UA Bili Negative Negative 06/07/2025 9:08 PM EDT [facility] UA Nitrite Negative Negative 06/07/2025 9:[facility] UA Leuk Est Small(A) Negative 06/07/2025 9:08 PM [facility] UA Spec Grav 1.025 1.001 - 1.035 no units 06/07/2025 9:08 PM [facility] Comment:Reference range tessie d for random specimens only. UA WBC 10(H) 0 - 4 /HPF 06/07/2025 9:08 PM EDT [facility] UA RBC 0 0 - 3 /HPF 06/07/2025 9:08 PM EDT [facility] UA Squam Epi 2+ /LPF 06/07/2025 9:08 PM EDT [facility] UA Mucus 2+ /LPF 06/07/2025 9:08 PM EDT [facility] UA Amorph 1+ /HPF 06/07/2025 9:08 PM EDT [facility] UA Bacteria Trace(A) Negative /HPF 06/07/2025 9:08 PM EDT [facility] Urine STRUCTURE OF URINARY TRACT PROPER / Unknown 06/07/2025 8:48 PM EDT 06/07/2025 8:59 PM EDT us Viral Sargent V, DO URINE ORDERABLES Final Result Performing Organization Address [facility] Co de Phone Number [facility] [address] [place] [address] * EXTRA LAUGHLIN URINE CX (06/07/2025 8:48 PM EDT) Urine STRUCTURE OF URINARY TRACT PROPER / Unknown 06/07/2025 8:48 PM EDT 06/07/2025 8:59 PM EDT us Viral Sargent V, DO MICROBIOLOGY - GENERAL ORDERAB LES Final Result Performing Organization Address [facility] Co de Phone Number [facility] [address] [place] [address] * (ABNORMAL) URINE CULTURE (NO STAIN) (06/07/2025 8:48 PM EDT) Culture Positive Growth(A) 06/10/2025 1:16 PM EDT [facility] Culture >100,000 CFU/mL Lactobacillus species SUSCEPTIB ILITY RESULT 06/10/2025 1:16 PM EDT [facility] Comment:No further workup. Culture 4,000 CFU/mL Ashley albicans SUSCEPTIB ILITY RESULT 06/10/2025 1:16 PM EDT [facility] Comment:No further workup. Urine STRUCTURE OF URINARY TRACT PROPER / Unknown 06/07/2025 8:48 PM EDT 06/07/2025 9:08 PM EDT us Viral Sargent V, DO MICROBIOLOGY - GENERAL ORDERAB LES Final Result [facility] [address] [facility] , [place] [address] * XR HIP LEFT AP [...] 3.7 - 10.3 x10(3)/mcL 06/07/2025 5:11 AM [facility] RBC 3.92 3.90 - 5.20 x10(6)/mcL 06/07/2025 5:11 AM [facility] Hgb 11.8 11.2 - 15.7 g/dL 06/07/2025 5:11 AM [facility] Hct 36.3 34.0 - 45.0 % 06/07/2025 5:11 AM [facility] MCV 92.6 80.0 - 100.0 fL 06/07/2025 5:11 AM [facility] MCH 30.1 26.0 - 34.0 pg 06/07/2025 5:11 AM [facility] MCHC 32.5 30.7 - 35.5 g/dL 06/07/2025 5:11 AM [facility] RDW 12.5 <=14.9 % 06/07/2025 5:11 AM [facility] Platelet 341 155 - 369 x10(3)/mcL 06/07/2025 5:11 AM [facility] MPV 9.0 8.8 - 12.5 fL 06/07/2025 5:11 AM [facility] Neut Percent 79.0 % 06/07/2025 5:11 AM [facility] Comment:Neutrophils equals s egs plus bands Imm Gran% 0.4 % 06/07/2025 5:11 AM [facility] Comment:Automated count of m etamyelocytes, myelocytes and promyelocytes. Lymph Percent 11.7 % 06/07/2025 5:11 AM [facility] Erie Percent 6.9 % 06/07/2025 5:11 AM [facility] Eos Percent 1.5 % 06/07/2025 5:11 AM [facility] Baso Percent 0.5 % 06/07/2025 5:11 AM [facility] Neut # 8.9(H) 1.6 - 6.1 x10(3)/mcL 06/07/2025 5:11 AM [facility] Comment:Neutrophils equals s egs plus bands IMMGRAN# 0.0 0.0 - 0.1 x10(3)/mcL 06/07/2025 5:11 AM EDT [facility] Comment:Automated count of m etamyelocytes, myelocytes and promyelocytes. An absolute IG <0.1 is reported as 0.0. Lymph # 1.3 1.2 - 3.9 x10(3)/mcL 06/07/2025 5:11 AM EDT [facility] Erie # 0.8 0.3 - 0.9 x10(3)/mcL 06/07/2025 5:11 AM EDT [facility] Eos# 0.2 0.0 - 0.5 x10(3)/mcL 06/07/2025 5:11 AM EDT [facility] Baso # 0.1 0.0 - 0.1 x10(3)/mcL 06/07/2025 5:11 AM EDT [facility] Blood VENOUS BLOOD / Unknown Venipuncture / Unknown 06/07/2025 5:09 AM EDT 06/07/2025 5:09 AM EDT us Viral Sargent V, DO HEMATOLOGY ORDERABLES Final Re sult [facility] [address] [place] [address] * PARTIAL THROMBOPLASTIN TIME (05/31/2025 4:43 PM EDT) [facility] PTT 31.8 25.7 - 36.8 second(s) 05/31/2025 4:58 PM EDT [facility] Comment: Therapeutic range for unfractionated heparin: [...] ORDERABLES Fi nal Result Performing Organization Address [facility] de Phone Number [facility] [address] [place] [address] * (ABNORMAL) PT / INR (05/31/2025 4:43 PM EDT) PT 13.7(H) 10.5 - 13.6 second(s) 05/31/2025 4:58 PM EDT [facility] INR 1.19(H) 0.91 - 1.18 (ratio) 05/31/2025 4:58 PM EDT [facility] Comment: Level of Therapy Indications Target INR Range Standard Dose Treatment and prophylaxis of venous 2.0 - 3.0 thrombosis, pulmonary embolism High Dose High risk patients with mechanical 2.5 - 3.5 heart valves Blood VENOUS BLOOD / Unknown Venipuncture / Unknown 05/31/2025 4:43 PM EDT 05/31/2025 4:47 PM EDT Hugh Zamarripa MD HEMATOLOGY ORDERABLES Fi nal Result Performing Organization Address [facility] de Phone Number [facility] [address] [place], [place] [id number] * CT ABDOMEN PELVIS HEMATURIA/RENAL MASS PROTOCOL [...] of the ordering clinician. Hugh Zamarripa MD [facility] ORDERABLES Final Result * CREATININE ISTAT (05/30/2025 1:26 PM EDT) Creatinine-iST AT 0.9 0.6 - 1.3 mg/dL 05/30/2025 1:28 PM EDT [facility] Blood BLOOD SPECIMEN / Unknown 05/30/2025 1:26 PM EDT 05/30/2025 1:28 PM EDT Hugh Zamarripa MD POINT OF CARE TEST ORDER PEDRO LUIS Final Result [facility] [address] [place] [address] from Last 3 Months Insurance [place]ICAID [place] Member Subscriber Plan / Payer (Ef fective 2005-Present) Name:Patricia Hills Relation to Subscriber:Self Name:Patricia Hills Payer ID:Not on file Group ID:Not on file Type:Not on file Address: O [address] DUAL ADVANTAGE [facility] [place]ICAID [place] [id number] [employer] DUAL ADVANTAGE O [facility] MEDICAID [place] Advance Directives For more information, please contact: [phone] * Full Code (Latest Code Status on File) Date Activated Date Inactivated Comments 05/30/2025 6:09 AM 06/12/2025 3:25 PM
--- OUTSIDE RECORDS SUMMARY | 2025-06-13 23:42 | XMS_ITS | Encounter Summary ---
Author Organization [facility] Address [address] [phone] Care Team Providers Care Do All Operator Name Role Phone Pcp, No Primary Care Provider Unavailabl e Reason for Referral * Consultation (Urgent) - Authorized Specialty Diagnoses / Procedures Referred By Contact Referred To Contact Vascular Surgery / [facility] Diagnoses Stenosis of carotid artery, unspecified laterality Prasad León MD [facility] [place] [address] Phone: tel:[phone] fax: [facility] [address] [facility] [address] [place] [address] Phone: tel: fax: Referral ID Status Reason Start Date Expiration Date Visits Requested Visits Authorized [id number] Authorized Specialty Services Required 05/17/2024 11/16/2025 1 1 Encounter Details Date Type Department Care Team (Late st Contact Info) Description 05/17/2024 Community Orders Community Practice [address] [place] [address] Prasad León MD [address] [place] [address] Stenosis of carotid artery, unspecified [...] Primary documented in this encounter Care Teams Do All Operator Relationship Specialty Start Date End Date Pcp, Sonal [address] [place] [address] PCP - General Family Medicine 08/10/24 documented as of this encounter
--- OUTSIDE RECORDS SUMMARY | 2025-06-13 23:42 | XMS_ITS | Encounter Summary ---
Author Organization Healthcare Address [address] [place] [address] Care Team Providers Care Vice President Quality Improvement Name Role Phone Pcp, No Primary Care Provider Unavailabl e Encounter Details Date Type Department Care Team (Late st Contact Info) Description 05/12/2024 Orders Only External Location [address] [place] [address] Charlotte Jung, [address] [place] [address] Social History Tobacco Use Types [...] on filedocumented in this encounter Care Teams Vice President Quality Improvement Relationship Specialty Start Date End Date Pcp, No [address] [place] [address] PCP - General Family Medicine 08/10/24 documented as of this encounter
--- OUTSIDE RECORDS SUMMARY | 2025-06-13 23:42 | XMS_ITS | Clinical Summary ---
Author Organization [facility] Address [address] [id number] Care Team Providers Care Counter Supervisor Name Role Phone Pcp, No Primary [...] (one) time each day. Active nystatin (Mycostatin) [id number] UNIT/ML suspension Take 5 mL (500,000 Units) [...] or (1 - 1-dose 75+ series) 11/22/2015 [id number] Vaccine (1 - season) 2025 UKY-Influenza Vaccine [...] Patient has decision-making capacity? Yes Care Teams Counter Supervisor Relationship Specialty Start Date End Date Pcp, No [address] [place] [address] PCP - General Family Medicine 08/10/24
[2025-06-13 23:56] LABS: Hematocrit 33.1 % (37.0-47.0); Hemoglobin 10.9 g/dL (12.2-16.2); Immature Granulocytes % 0.3 %; Lactate Venous 1.5 mmol/L (0.4-2.0); Mean Corpuscular HGB Conc 32.9 g/dL (31.8-35.4); Mean Corpuscular Hemoglobin 30.0 pg (27.0-31.2); Mean Corpuscular Volume 91.2 fl (81-99); Nucleated Red Blood Cells % 0 %; Platelet Count 350 K/mm3 (142-424); Red Blood Count 3.63 M/mm3 (4.20-5.40); Red Cell Distribution Width-SD 43.0 fL; VBG HCO3 31.1 mmol/L (23-30); VBG PCO2 49.5 mmol/L (35-51); VBG PH 7.42 mmol/L (7.31-7.41); VBG PO2 49.5 mmol/L (28-40); White Blood Count 9.9 K/mm3 (4.8-10.8)
[2025-06-14] VITALS (25 sets, daily range): BP systolic 96–198; BP diastolic 49–173; PULSE 70–84; RESP 14–25; TEMP 36.8–36.9; O2SAT 84–98; BMI 25.7
[2025-06-14 00:08] LABS: INR 1.04 (0.9-1.1); Prothrombin Time 11.5 seconds (10.1-12.5)
[2025-06-14 00:26] LABS: NT Pro Brain Natriuretic Pep. 1230 pg/mL (0-450); Troponin I 0.07 ng/ml (0.00-0.034)
[2025-06-14 00:37] LABS: Alanine Aminotransferase 10 U/L (12-78); Albumin Level 2.9 g/dl (3.5-5.0); Albumin/Globulin Ratio 1.1 (1.1-1.8); Alkaline Phosphatase 106 U/L (38-126); Anion Gap 8.5 mEq/L (5-15); Aspartate Amino Transferase 23 U/L (14-36); Bilirubin,Total 0.6 mg/dl (0.2-1.3); Blood Urea Nitrogen 22 mg/dl (7-17); Calcium 8.5 mg/dl (8.4-10.2); Carbon Dioxide 31 mmol/L (22.0-30.0); Chloride 104 mmol/L (98-107); Creatinine Clearance Estimated 45 mL/min (50-200); Creatinine,Serum 0.70 mg/dl (0.52-1.04); Estimated Glomerular Filt Rate 80 ml/min (>60); GFR (African American) 96 ML/MIN (>60); Globulin 2.6 g/dL (1.3-3.2); Glucose 138 mg/dl (74-100); Potassium 3.5 mmoL/L (3.5-5.1); Sodium 140 mmol/L (136-145); Total Protein,Serum 5.5 g/dl (6.3-8.2)
[2025-06-14] MEDS: ASPIRIN 81MG CHEWABLE TABLET 324 MG PO (00:48)
[2025-06-14] MEDS: SODIUM CHLORIDE 0.9% 10ML SYR (RAD ONLY) 10 ML IV (00:56)
[2025-06-14] MEDS: IOPAMIDOL-370 (76%);100ML BOTTLE 70 ML IV (00:56)
[2025-06-14] MEDS: 0.9 % SODIUM CHLORIDE 50 ML VIAL IV (00:57)
[2025-06-14] MEDS: NITROGLYCERIN 0.4MG SL TABLET 0.4 MG SL (01:09)
[2025-06-14] MEDS: FUROSEMIDE 40MG/4ML VIAL 40 MG IV ×2 (01:09→09:21)
--- NOTE | 2025-06-14 01:32 | EXP.HP ---
History of Present Illness *Admission Date: 06/14/25 *Reason for visit:: Chest pain *History of present illness: Patient is a 84-year-old female with past medical history of COPD diabetes mellitus hypertension who presents to the hospital due to shortness of breath and chest pressure. According to the patient and family at the bedside patient is supposed to be on oxygen at home however patient was not sent home with oxygen, patient was noticed to have hypoxia on arrival to the hospital, patient at time of my evaluation denies chest pain shortness of breath nausea vomiting diarrhea constipation dysuria fevers and chills. On further evaluation patient was noticed to have elevated troponin and was admitted for possible NSTEMI. [facility] Disclaimer: The information contained in this section may have been updated after the patient was seen, as this information can be updated by other users. Medical History Pleural effusion, bilateral Vertigo Transient neurological symptoms Encounter for immunization Thyroid nodule Visual hallucination Right-sided headache Coronary artery calcification seen on CT scan Pulmonary nodule Vitamin D deficiency Type 2 diabetes mellitus without complications Hyperlipidemia Diabetes mellitus HTN (hypertension) Degenerative joint disease (DJD) of lumbar spine Surgical History H/O removal of cyst History of cholecystectomy Hx of cataract surgery Family History Mother Coronary artery disease Grandmother Stroke Brother Heart attack Social History Smoking Status: Current some day smoker tobacco type: cigarettes packs per day: 1 alcohol intake: never substance use type: denies use current occupational status: other Travel in the last 8 weeks?: None household members: other housing: house Other Medical History Have you received the Flu Vaccine for this season: No Have you received the Pneumonia Vaccine: Yes Review of Systems Review of Systems Review of systems:: pertinent systems reviewed and negative unless documented below Meds Home Medications and Allergies Home Medications ?Medication ?Instructions ?Recorded ?Confirmed ?Type aspirin 81 mg tablet,delayed 81 mg PO DAILY #100 tabs 07/06/24 06/14/25 Rx release clopidogrel 75 mg tablet (Plavix) 75 mg PO DAILY #90 tabs 07/06/24 06/14/25 Rx nebulizer accessories #1 ea 08/08/24 06/14/25 Rx nebulizers #1 ea 08/08/24 06/14/25 Rx blood sugar diagnostic (OneTouch #50 ea 04/03/25 06/14/25 Rx Verio test strips) cholecalciferol (vitamin D3) 25 25 mcg PO DAILY 04/03/25 06/14/25 History mcg (1,000 unit) capsule citalopram 10 mg tablet 5 mg (1/2 x 10 mg) PO BID #30 tabs 04/03/25 06/14/25 Rx rosuvastatin 5 mg tablet 5 mg PO HS #90 tabs 04/26/25 06/14/25 Rx metformin 500 mg tablet,extended 500 mg PO BID #60 tabs 05/10/25 06/14/25 Rx release 24 hr betamethasone dipropionate 0.05 % 1 applic topical BIDP PRN skin 05/25/25 06/14/25 History topical cream irritation albuterol sulfate 90 mcg/actuation 2 puff inhalation Q6H PRN 05/29/25 06/14/25 Rx aerosol inhaler (Ventolin HFA) Shortness of breath 30 days #0 grams ipratropium 0.5 mg-albuterol 3 mg 3 ml inhalation Q6RT 30 days #90 mL 05/29/25 06/14/25 Rx (2.5 mg base)/3 mL nebulization soln pantoprazole 40 mg tablet,delayed 40 mg PO HS 30 days #30 tabs 05/29/25 06/14/25 Rx release insulin glargine 100 unit/mL 10 unit SQ HS 06/14/25 06/14/25 History subcutaneous solution (Lantus U-100 Insulin) metoprolol tartrate 50 mg tablet 25 mg PO DAILY 06/14/25 06/14/25 History New Prescriptions to Start Prescriptions: Allergies Allergy/AdvReac Type Severity Reaction Status Date / Time Penicillins Allergy Severe swelling Verified 06/12/25 14:00 doxycycline Allergy Mild Unknown Verified 06/12/25 14:00 allergy reaction levofloxacin (From Levaquin) Allergy Anaphylaxis Verified 06/12/25 14:00 moxifloxacin (From Avelox) Allergy Hives Verified 06/12/25 14:00 brompheniramine AdvReac Unknown Verified 06/12/25 14:00 allergy reaction bupivacaine (From Marcaine) AdvReac Unknown Verified 06/12/25 14:00 allergy reaction cephalexin (From Keflex) AdvReac Unknown Verified 06/12/25 14:00 allergy reaction clarithromycin AdvReac Unknown Verified 06/12/25 14:00 allergy reaction fluvastatin (From Lescol) AdvReac Unknown Verified 06/12/25 14:00 allergy reaction hydrochlorothiazide AdvReac Unknown Verified 06/12/25 14:00 allergy reaction lovastatin (From Altocor) AdvReac Unknown Verified 06/12/25 14:00 allergy reaction nitrofurantoin (From AdvReac Unknown Verified 06/12/25 14:00 Macrobid) allergy reaction triamcinolone (From Kenalog) AdvReac Unknown Verified 06/12/25 14:00 allergy reaction Exam Data for Last 24 hours Vital signs and Labs for Last 24 Hours: Temp Pulse Resp BP Pulse Ox O2 Del Method 98.2 F 75 18 167/64 H 93 L Room Air 06/13/25 23:36 06/13/25 23:36 06/13/25 23:36 06/13/25 23:36 06/13/25 23:36 06/13/25 23:36 Laboratory Results - last 24 hr 06/13/25 23:48: WBC 9.9, RBC 3.63 L, Hgb 10.9 L, Hct 33.1 L, MCV 91.2, MCH 30.0, MCHC 32.9, RDW 13.0, Plt Count 350, MPV 9.0, Neut % (Auto) 75.1, Lymph % (Auto) 15.7, [place] % (Auto) 7.4, Eos % (Auto) 1.0, Baso % (Auto) 0.5, Neut # (Auto) 7.4, Lymph # (Auto) 1.6, [place] # (Auto) 0.7, Eos # (Auto) 0.1, Baso # (Auto) 0.1, PT 11.5, INR 1.04, VBG pH 7.42 H, VBG pCO2 49.5, VBG pO2 49.5 H, VBG HCO3 31.1 H, VBG Total CO2 32.6 H, VBG O2 Saturation 86.6 H, VBG Base Excess 6.6 H, VBG Lactic Acid 1.5, Sodium 140, Potassium 3.5, Chloride 104, Carbon Dioxide 31 H, Anion Gap 8.5, BUN 22 H, Creatinine 0.70, Estimated Creat Clear 45, Estimated GFR 80, Est GFR ( Amer) 96, Glucose 138 H, Calcium 8.5, Total Bilirubin 0.6, AST 23, ALT 10 L, Alkaline Phosphatase 106, Troponin I 0.07 H, NT-Pro-B Natriuret Pep 1230 H, Total Protein 5.5 L, Albumin 2.9 L, Globulin 2.6, Albumin/Globulin Ratio 1.1 I & O for Last 24 hours: Intake & Output 06/11/25 06/12/25 06/13/25 06/14/25 23:59 23:59 23:59 23:59 Weight 68.039 kg Constitutional Constitutional: no acute distress *Routine HEENT Exam Head: Present normocephalic Eye: Present EOMI and PERRL ENT: Present mucous membranes moist *Routine Neck Exam Neck: Present supple; Absent lymphadenopathy *Routine Respiratory Exam Respiratory: Present CTA bilaterally *Routine Cardiovascular Exam Cardiovascular: Present RRR *Routine Abdominal Exam Abdominal: Present soft and normoactive bowel sounds; Absent tenderness *Routine Rectal Exam Rectal:: deferred *Routine Genitalia Exam Genitalia:: deferred *Routine Extremities Exam Extremities: Absent cyanosis, clubbing or edema *Routine Skin Exam Skin: Present warm; Absent rash *Routine Neurological Exam Neurological: Present alert and oriented X3 Assessment and Plan *Assessment and plan (1) Non-ST elevation LA (NSTEMI): Status: Acute Category: Medical Code(s): I21.4 - Non-ST elevation (NSTEMI) myocardial infarction (2) Diabetes mellitus: Status: Acute Qualifiers: Diabetes mellitus complication status: without complication Diabetes mellitus intermodal customer service insulin use: without nursing home use Diabetes mellitus type: type 2 Qualified Code(s): E11.9 - Type 2 diabetes mellitus without complications Category: Medical Code(s): E11.9 - Type 2 diabetes mellitus without complications (3) HTN (hypertension): Status: Acute Category: Medical Code(s): I10 - Essential (primary) hypertension Plan Patient is a 84-year-old female with past medical history of COPD diabetes mellitus hypertension who presents to the hospital due to shortness of breath and chest pressure. According to the patient and family at the bedside patient is supposed to be on oxygen at home however patient was not sent home with oxygen, patient was noticed to have hypoxia on arrival to the hospital, patient at time of my evaluation denies chest pain shortness of breath nausea vomiting diarrhea constipation dysuria fevers and chills. On further evaluation patient was noticed to have elevated troponin and was admitted for possible NSTEMI. Assessment and plan Chest pain, elevated troponin suspect NSTEMI Monitor troponin Monitor on cardiac telemetry Consult cardiology Started on therapeutic Lovenox CTA chest performed that shows small bilateral pleural effusions but negative for any embolism COPD Diabetes mellitus Hypertension Order insulin sliding scale DuoNebs Consult PT/OT for possible rehab placement Consult social welfare clerk Patient may need oxygen tank at discharge DVT prophylaxis-on therapeutic Lovenox
[2025-06-14 01:33] LABS: Activated Partial Thrombo Time 23.1 seconds (22.8-30.6)
[2025-06-14] MEDS: ONDANSETRON 4MG/2ML VIAL 4 MG IV (01:33)
[2025-06-14] MEDS: NITROGLYCERIN IN 5 % DEXTROSE 250 ML 1.5 MG IV (01:34)
--- NOTE | 2025-06-14 01:56 | PC.NURSE ---
report called to mariella/vanessa GRAHAM
--- NOTE | 2025-06-14 01:59 | ED_ITS ---
Discharge Plan Disposition Patient Disposition: Admitted Condition: Good Clinical Impressions Clinical Impression: Non-ST elevation MS (NSTEMI) Discharge ED Provider: Ramiro Walton General Chief Complaint: Shortness of Breath/Dyspnea Stated Complaint: SOA Time Seen by Provider: 06/13/25 23:42 Mode of Arrival: EMS Source of Information: Patient and EMS Description of Symptoms (Recalled from ER Triage Doc. by RN): patient broght via ems to ed for shortness fo breath and chest pressure. ems stated that her symptoms started around 1800 adn persisted so she called ems. she lives at home alone, has diabetes and copd not on home oxygen, ems had her on 4lnc on arrival History of Present Illness HPI narrative: 84-year-old female with history of COPD, diabetes, hypertension who fractured her hip and required surgery at the end of May and was recently discharged from inpatient therapy presents to the ER complaining of shortness of breath and chest pressure. Reportedly her symptoms started approximately 6 hours prior to arrival. Patient lives at home alone. She has no baseline oxygen requirement but EMS reports they found her at 84% on room air. They reports she improved with nasal cannula. They report on their exam she did not have any wheezing so they did not administer any medications en route. Family at bedside reports patient has been taking all medications as prescribed, she has not missed any of her hypertension medications. She has been back on her clopidogrel since after surgery. Denies fevers or chills. Reports mild nausea but no vomiting. No dysuria or hematuria. No increased pain in the hip. No other complaints or concerns. Related Data Home Medications ?Medication ?Instructions ?Recorded ?Confirmed cholecalciferol (vitamin D3) 25 25 mcg PO DAILY 06/12/25 mcg (1,000 unit) capsule betamethasone dipropionate 0.05 % 1 applic topical BID P PRN skin 05/25/25 06/12/25 topical cream irritation Previous Rx's ?Medication ?Instructions ?Recorded aspirin 81 mg tablet,delayed 81 mg PO DAILY #100 tabs 07/06/24 release clopidogrel 75 mg tablet (Plavix) 75 mg PO DAILY #90 t abs 07/06/24 nebulizer accessories #1 ea 08/08/24 nebulizers #1 ea 08/08/24 blood sugar diagnostic (OneTouch #50 ea 04/03/25 Verio test strips) citalopram 10 mg tablet 5 mg (1/2 x 10 mg) PO BID #3 0 tabs 04/03/25 rosuvastatin 5 mg tablet 5 mg PO HS #90 tabs 04/26/25 metformin 500 mg tablet,extended 500 mg PO BID #60 tab s 05/10/25 release 24 hr albuterol sulfate 90 mcg/actuation 2 puff inhalation Q 6H PRN 05/29/25 aerosol inhaler (Ventolin HFA) Shortness of breath 30 days #0 grams hydrocodone 5 mg-acetaminophen 325 1 tab PO Q4HP PRN p ain #18 tabs 05/29/25 mg tablet ipratropium 0.5 mg-albuterol 3 mg 3 ml inhalation Q6RT 30 days #90 mL 05/29/25 (2.5 mg base)/3 mL nebulization soln irbesartan 300 mg tablet 300 mg PO DAILY 30 days #30 tabs 05/29/25 levofloxacin 750 mg tablet 750 mg PO Q48H 3 days #2 ta bs 05/29/25 metoprolol tartrate 50 mg tablet 25 mg (1/2 x 50 mg) P O BID 30 days 05/29/25 #30 tabs pantoprazole 40 mg tablet,delayed 40 mg PO HS 30 days #30 tabs 05/29/25 release Allergies Allergy/AdvReac Type Severity Reaction Status Date / Time Penicillins Allergy Severe swelling Verified 06/12/25 14:00 doxycycline Allergy Mild Unknown Verified 06/12/25 14:00 allergy reaction levofloxacin (From Levaquin) Allergy Anaphylaxis Verified 06/12/25 14:00 moxifloxacin (From Avelox) Allergy Hives Verified 06/12/25 14:00 brompheniramine AdvReac Unknown Verified 06/12/25 14:00 allergy reaction bupivacaine (From Marcaine) AdvReac Unknown Verified 06/12/25 14:00 allergy reaction cephalexin (From Keflex) AdvReac Unknown Verified 06/12/25 14:00 allergy reaction clarithromycin AdvReac Unknown Verified 06/12/25 14:00 allergy reaction fluvastatin (From Lescol) AdvReac Unknown Verified 06/12/25 14:00 allergy reaction hydrochlorothiazide AdvReac Unknown Verified 06/12/25 14:00 allergy reaction lovastatin (From Altocor) AdvReac Unknown Verified 06/12/25 14:00 allergy reaction nitrofurantoin (From AdvReac Unknown Verified 06/12/25 14:00 Macrobid) allergy reaction triamcinolone (From Kenalog) AdvReac Unknown Verified 06/12/25 14:00 allergy reaction PFSH PFS Disclaimer: The information contained in this section may have been updated after the patient was seen, as this information can be updated by other users. Medical History Pleural effusion, bilateral Vertigo Transient neurological symptoms Encounter for immunization Thyroid nodule Visual hallucination Right-sided headache Coronary artery calcification seen on CT scan Pulmonary nodule Vitamin D deficiency Type 2 diabetes mellitus without complications Hyperlipidemia Diabetes mellitus HTN (hypertension) Degenerative joint disease (DJD) of lumbar spine Surgical History H/O removal of cyst History of cholecystectomy Hx of cataract surgery Family History Mother Coronary artery disease Grandmother Stroke Brother Heart attack Social History Smoking Status: Current some day smoker tobacco type: cigarettes packs per day: 1 alcohol intake: never substance use type: denies use current occupational status: other Travel in the last 8 weeks?: None household members: other housing: house Other Medical History Have you received the Flu Vaccine for this season: No Have you received the Pneumonia Vaccine: Yes ROS Obtained: Yes Systems reviewed as appropriate & no additional complaints except as documented Per HPI Physical Exam General General appearance: alert and in no apparent distress Head Head exam: atraumatic and normocephalic Eye Eye exam: Present PERRL and EOMI ENT ENT exam: Present mucous membranes moist Neck Neck exam: Present normal inspection and full ROM Chest Chest inspection: Present symmetric chest wall rise Respiratory Respiratory exam: Present normal lung sounds bilaterally and other (87% on room air on arrival, placed on 2 L NC improved to the low 90s.); Absent respiratory distress, wheezes or stridor Cardiovascular Cardiovascular exam: Present regular rate and normal rhythm Abdominal Exam Abdominal exam: Present soft; Absent distention or tenderness Extremities Exam Extremities exam: Present full ROM and other (Left hip surgical incision well- approximated, well-healing, clean, dry, no evidence of infection); Absent tenderness Back Exam Back exam: Absent CVA tenderness (R) or CVA tenderness (L) Neurological Exam Neurological exam: Present alert and oriented X3; Absent motor sensory deficit Psychiatric Psychiatric exam: Present normal affect and normal mood Skin Skin exam: Present warm and dry HEART Score HEART Score HEART Score assessment performed?: Yes History (anamnesis): Slightly suspicious ECG: Non-specific disturbance Age: >65 years Risk factors: Atherosclerosis history Troponin: 1-3x normal limit HEART Score: 6 Procedures Miscellaneous Procedure Procedure Performed: Limited Cardiac Ultrasound Performed by: Ramiro Walton MD Indication: Chest pain, shortness of breath Identified cardiac views: [-Cardiac parasternal long axis] [-Cardiac parasternal short axis] (Parasternal views were poor due to acoustic window difficulties) [-Cardiac apical four-chamber] [-Cardiac subxiphoid] Findings: Cardiac activity present with no gross wall motion abnormality trace pericardial effusion versus fat pad, no right heart strain Impression: Cardiac activity present with no gross wall motion abnormality trace pericardial effusion versus fat pad, no right heart strain Images were saved to permanent archive The study was technically adequate CPT: 69483 This study was performed by me, and I personally interpreted all images/videos. Based on my clinical judgement, these images were adequate and did not necessitate further imaging. Limited lung ultrasound Performed by: Ramiro Walton MD A focused ultrasound exam of the pleural spaces was performed to evaluate for pneumothorax, pulmonary edema, pleural effusion and/or consolidation. The ultrasound was performed with the following indications, as noted in the H&P: Shortness of breath Identified structures: Bilateral thoracic cavities were examined. Findings: Lung sliding: - Present bilaterally B-lines: Few bilaterally Pleural effusion: Scant appreciated on the left Consolidation: Not appreciated Impression: No pneumothorax, scant pleural effusion present, few B-lines, no consolidation Images were saved to permanent archive The study was technically adequate CPT 20713-14 This study was performed by me, and I personally interpreted all images/videos. Based on my clinical judgement, these images were adequate and did not necessitate further imaging. Critical Care Critical Care Time Critical Care Time: Yes Attestation: On 06/13/25, the high probability of a clinically significant, sudden or life threatening deterioration of the following system(s) required my full and direct attention, intervention and personal management. The time I documented below is in addition to time spent performing reported procedures but includes the following listed in this critical care notation. Total Time Total Critical Care Time: 35 Medical Decision Making Medical Records Medical records reviewed: Yes I reviewed the patient's medical records. Cristhian Inquiry Pt receiving controlled substance: No Vital Signs Vital Signs: 06/13/25 23:36 Temperature 98.2 F Temperature Source Oral Pulse Rate [Right Radial] 75 Respiratory Rate 18 Blood Pressure [Right Arm] 167/64 H Blood Pressure Mean [Right Arm] 98 Blood Pressure Source [Right Arm] Automatic Cuff Blood Pressure Position [Right Arm] Sitting 02 Sat by Pulse Oximetry 93 L Oxygen Delivery Method Room Air Lab Data Labs: Lab Results 06/13/25 23:48: WBC 9.9, RBC 3.63 L, Hgb 10.9 L, Hct 33.1 L, MCV 91.2, MCH 30.0, MCHC 32.9, RDW 13.0, Plt Count 350, MPV 9.0, Neut % (Auto) 75.1, Lymph % (Auto) 15.7, [place] % (Auto) 7.4, Eos % (Auto) 1.0, Baso % (Auto) 0.5, Neut # (Auto) 7.4, Lymph # (Auto) 1.6, [place] # (Auto) 0.7, Eos # (Auto) 0.1, Baso # (Auto) 0.1, PT 11.5, INR 1.04, APTT 23.1, VBG pH 7.42 H, VBG pCO2 49.5, VBG pO2 49.5 H, VBG HCO3 31.1 H, VBG Total CO2 32.6 H, VBG O2 Saturation 86.6 H, VBG Base Excess 6.6 H, VBG Lactic Acid 1.5, Sodium 140, Potassium 3.5, Chloride 104, Carbon Dioxide 31 H, Anion Gap 8.5, BUN 22 H, Creatinine 0.70, Estimated Creat Clear 45, Estimated GFR 80, Est GFR ( Amer) 96, Glucose 138 H, Calcium 8.5, Total Bilirubin 0.6, AST 23, ALT 10 L, Alkaline Phosphatase 106, Troponin I 0.07 H, N T-Pro-B Natriuret Pep 1230 H, Total Protein 5.5 L, Albumin 2.9 L, Globulin 2.6, Albumin/Globulin Ratio 1.1 10/14/25 23:48 06/13/25 23:48 Response Orders (Tests/Meds): ED MEDICATIONS Generic Name Dose Route Start Last Admin Trade Name Frejusten PRN Reason Stop Dose Admin Acetaminophen 650 mg 06/14/25 01:30 Acetaminophen 325mg Tab PO 07/14/25 01:29 Q4HP PRN Fever or Mild Pain (1-3) Enoxaparin Sodium 70 mg 06/14/25 01:15 06/14/25 01:32 Enoxaparin 100mg/Ml Syringe 1 mg/kg (70 mg) 07/14/25 01:14 70 mg SUBCUT Administration Q12H ALTAGRACIA Nitroglycerin/Dextrose 250 mls @ 1.5 mls/hr 06/14/25 01:15 06/14/25 01:34 Nitroglycerin 50mg/250ml D5w IV 07/14/25 01:14 5 mcg/min .Q24H ALTAGRACIA 1.5 mls/hr Protocol Administration 5 MCG/MIN Morphine Sulfate 2 mg 06/14/25 01:30 Morphine 2mg/Ml Syringe IV 07/14/25 01:29 Q2HP PRN Severe Pain (7-10) Discontinued Medications Generic Name Dose Route Start Last Admin Trade Name Lucio PRN Reason Stop Dose Admin Aspirin 324 mg 06/13/25 23:42 06/14/25 00:48 Aspirin 81mg Chewable Tablet PO 06/13/25 23:43 324 mg ONCE ONE Administration Furosemide 40 mg 06/14/25 01:03 06/14/25 01:09 Furosemide 40mg/4ml Vial IV 06/14/25 01:04 40 mg ONCE ONE Administration Iopamidol 70 ml 06/14/25 00:55 06/14/25 00:56 Iopamidol-370 (76%);100ml Bottle IV 06/14/25 00:56 70 ml ONCE ONE Administration Nitroglycerin 0.4 mg 06/14/25 01:03 06/14/25 01:09 Nitroglycerin 0.4mg Sl Tablet SL 06/14/25 01:04 0.4 mg ONCE ONE Administration Ondansetron HCl 4 mg 06/14/25 01:14 06/14/25 01:33 Ondansetron 4mg/2ml Vial IV 06/14/25 01:15 4 mg ONCE ONE Administration Sodium Chloride 50 ml 06/14/25 00:55 06/14/25 00:57 0.9 % Sodium Chloride 50 Ml Vial IV 06/14/25 00:56 50 ml ONCE ONE Administration Sodium Chloride 10 ml 06/14/25 00:55 06/14/25 00:56 Sodium Chloride 0.9% 10ml Syr (Rad Only) IV 06/14/25 00:56 10 ml ONCE ONE Administration ORDERS Category Date Time Status CT angio chest PE protocol Stat Cat Scan 06/13/25 23:42 Completed Cardiology Consult [Consult to Cardiology] [CONS] Cons 06/14/25 01:30 Active Routine POCUS Point of Care (ER Only) Stat Exams 06/13/25 23:42 Completed Basic Metabolic Panel AMLAB Lab 06/14/25 06:00 Ordered Basic Metabolic Panel AMLAB Lab 06/15/25 06:00 Ordered Basic Metabolic Panel AMLAB Lab 06/16/25 06:00 Ordered Complete Blood Count Auto Diff AMLAB Lab 06/14/25 06:00 Ordered Complete Blood Count Auto Diff AMLAB Lab 06/15/25 06:00 Ordered Complete Blood Count Auto Diff AMLAB Lab 06/16/25 06:00 Ordered Complete Blood Count Auto Diff Stat Lab 06/13/25 23:48 Completed Comprehensive Metabolic Panel Stat Lab 06/13/25 23:48 Completed NT Pro Brain Natriuretic Pep. Stat Lab 06/13/25 23:48 Completed PTT [Activated Partial Thrombo Time] Stat Lab 06/14/25 01:14 Completed Prothrombin Time INR Stat Lab 06/13/25 23:48 Completed Troponin I Q3H Lab 06/14/25 02:45 Ordered Troponin I Q3H Lab 06/14/25 05:45 Ordered Troponin I Q6H Lab 06/14/25 10:45 Ordered Troponin I Stat Lab 06/13/25 23:48 Completed Venous Blood Gas Stat RT 06/13/25 23:48 Completed MDM Narrative Medical Decision Narrative: In summary, this 84-year-old female with comorbidities described in the HPI presents to the emergency department today with shortness of breath, chest pressure for 6 hours. On initial evaluation patient is hypertensive but otherwise hemodynamically stable, afebrile, hypoxic on room air on arrival but no respiratory distress, no adventitious sounds appreciated on exam, no peripheral edema, abdominal exam benign. Differential diagnosis includes but is not limited to ACS, PE, volume overload, pulmonary edema, electrolyte abnormality, dehydration, hypertensive urgency or emergency. Based on these concerns, I ordered hematologic and serum labs, cardiac workup, CTA PE. ECG personally interpreted demonstrates sinus rhythm, rate 72, normal axis, normal CA and QTc, no STEMI. Patient received aspirin initially for treatment. She also received sublingual nitro which helped address her blood pressure. Labs personally reviewed demonstrate no leukocytosis, mild anemia is nonactionable at this time, normal platelets, PT/INR and PTT normal, VBG with pH 7.42, no hypercarbia reassuring against COPD exacerbation which was also on my differential, VBG lactic normal, CMP with mild prerenal azotemia but otherwise not acutely actionable, initial troponin 0.07 concerning for NSTEMI. Ultimately after identification of NSTEMI she was placed on nitro drip for continued blood pressure management and Lovenox. BNP elevated at 1230, [id number] ultrasound personally performed and interpreted at bedside demonstrates trace pericardial effusion versus fat pad but no other cardiac abnormality, few B-lines. IV furosemide being administered. CTA PE personally interpreted does not demonstrate large segmental or subsegmental PE, small pleural effusions present. See radiology read for final interpretation. On reassessment patient is doing well on nasal cannula, nitro drip has controlled her hypertension well. At this time I believe she is appropriate for admission and patient is comfortable with this plan as is her family. I discussed this case with the hospitalist including presentation, workup results, current management. Patient was graciously accepted for admission. She was admitted in stable condition.
--- NOTE | 2025-06-14 02:58 | PC.NURSE ---
Patient arrived to ICU unit via stretcher from ED @02:32am
[2025-06-14 03:52] LABS: Troponin I 0.07 ng/ml (0.00-0.034)
--- NOTE | 2025-06-14 05:23 | CA_ITS ---
APPROVED REPORT EXAM: Limited 2D Echocardiogram [employer]er: Adalgisa Olson, RCS, RVS Ht: 5 ft 1 in Wt: 139lbs BSA: 1.62 BP: 158/59 mmHg Indications: Troponinemia, Smoker, DM, HTN, HLD Echo Enhancing Agent Comments: Complete echo 05/25/25 2D Dimensions IVSd 1.19 cm LVEF (Visual) 61.60 % PWd 1.20 cm LVDd 4.29 cm LVDs 2.88 cm Other Information Study Quality: Fair Conclusion This is a limited TTE to evaluate for LV systolic function. Limited windows are obtained. The left ventricle is normal in size. There is marked increase in LV wall thickness (IVSd 1.4 cm). There is normal global LV systolic function. No regional wall motion abnormalities are noted. LVEF is 65-70%. Electronically signed by : Uma Cook MD 06/14/2025 13:01:04
[2025-06-14 06:44] LABS: Hematocrit 36.7 % (37.0-47.0); Hemoglobin 11.9 g/dL (12.2-16.2); Immature Granulocytes % 0.4 %; Mean Corpuscular HGB Conc 32.4 g/dL (31.8-35.4); Mean Corpuscular Hemoglobin 29.8 pg (27.0-31.2); Mean Corpuscular Volume 92.0 fl (81-99); Nucleated Red Blood Cells % 0 %; Platelet Count 333 K/mm3 (142-424); Red Blood Count 3.99 M/mm3 (4.20-5.40); Red Cell Distribution Width-SD 43.6 fL; White Blood Count 9.8 K/mm3 (4.8-10.8)
--- NOTE | 2025-06-14 07:03 | PC.WOUNDNOTE ---
Addendum entered by Priti Reyna RN 06/14/25 07:04: pts bottom and left hip Original Note:
[2025-06-14 07:33] LABS: Chloride 100 mmol/L (98-107); Sodium 140 mmol/L (136-145)
[2025-06-14 07:34] LABS: Potassium 3.3 mmoL/L (3.5-5.1)
[2025-06-14 07:36] LABS: Blood Urea Nitrogen 17 mg/dl (7-17); Creatinine Clearance Estimated 42 mL/min (50-200); Creatinine,Serum 0.70 mg/dl (0.52-1.04); Estimated Glomerular Filt Rate 80 ml/min (>60); GFR (African American) 96 ML/MIN (>60)
[2025-06-14 07:37] LABS: Anion Gap 9.3 mEq/L (5-15); Calcium 8.1 mg/dl (8.4-10.2); Carbon Dioxide 34 mmol/L (22.0-30.0); Glucose 124 mg/dl (74-100)
[2025-06-14 07:48] LABS: Troponin I 0.06 ng/ml (0.00-0.034)
--- NOTE | 2025-06-14 09:14 | [facility].PHAINT1 ---
Pharmacy Intervention Comments: MEDICATION RECONCILIATION COMPLETED ON PATIENT USING EXTERNAL FILL HISTORY FROM PHARMACY AND DISCHARGE SUMMARY FROM PREVIOUS ADMISSION. -MICHAEL PAULINO, RICKEYD
[2025-06-14] MEDS: METOPROLOL TARTRATE 25MG TABLET 25 MG PO (09:21)
[2025-06-14] MEDS: ASPIRIN EC 81MG TABLET 81 MG PO (09:21)
[2025-06-14] MEDS: CLOPIDOGREL 75MG TAB 75 MG PO (09:21)
--- OUTSIDE RECORDS SUMMARY | 2025-06-14 10:30 | XMS_ITS | Clinical Summary ---
Author Organization [facility] Address [address] [place] [address] Phone Care Team Providers Care Assembler Musical Instruments Name Role Phone Unavailable Primary Care Provider [...] melatonin 5 mg Oral TabletIndicatio ns:Resides in assisted facility Take 1 Tablet by mouth nightly as needed for Sleep. 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 Sample Type Capillary 06/12/2025 8:14 AM EDT [facility] Patient Status Non-Critical Patient 06/12/2025 8:14 AM EDT [facility] Blood BLOOD SPECIMEN / Unknown 06/12/2025 8:13 AM EDT 06/12/2025 8:14 AM EDT Hugh Zamarripa MD POINT OF CARE TEST ORDER PEDRO LUIS Final Result [facility] [address] [id number] * (ABNORMAL) CBC (06/12/2025 5:33 AM EDT) Only the most recent of2 resultswithin the time period is included. WBC 7.9 3.7 - 10.3 x10(3)/mcL 06/12/2025 5:36 AM EDT [facility] RBC 3.76(L) 3.90 - 5.20 x10(6)/mcL 06/12/2025 5:36 AM EDT [facility] Hgb 11.3 11.2 - 15.7 g/dL 06/12/2025 5:36 AM EDT [facility] Hct 35.6 34.0 - 45.0 % 06/12/2025 5:36 AM EDT [facility] MCV 94.7 80.0 - 100.0 fL 06/12/2025 5:36 AM EDT [facility] MCH 30.1 26.0 - 34.0 pg 06/12/2025 5:36 AM EDT [facility] MCHC 31.7 30.7 - 35.5 g/dL 06/12/2025 5:36 AM EDT [facility] RDW 13.0 <=14.9 % 06/12/2025 5:36 AM EDT [facility] Platelet 366 155 - 369 x10(3)/mcL 06/12/2025 5:36 AM EDT [facility] MPV 8.8 8.8 - 12.5 fL 06/12/2025 5:36 AM EDT [facility] Blood VENOUS BLOOD / Unknown Venipuncture / Unknown 06/12/2025 5:33 AM EDT 06/12/2025 5:33 AM EDT Jennifer Fontana APRN HEMATOLOGY ORDERABLES Fi nal Result Performing Organization Address [facility] de Phone Number [facility] [address] [place] [address] * MAGNESIUM LEVEL (06/12/2025 5:33 AM EDT) Only the most recent of3 resultswithin the time period is included. Magnesium 1.7 1.6 - 2.4 mg/dL 06/12/2025 5:55 AM EDT [facility] Blood VENOUS BLOOD / Unknown Venipuncture / Unknown 06/12/2025 5:33 AM EDT 06/12/2025 5:33 AM EDT Jennifer Fontana APRN CHEMISTRY ORDERABLES Fin al Result Performing Organization Address [facility] Co de Phone Number [facility] [address] [place] [address] * (ABNORMAL) BASIC METABOLIC PANEL (06/12/2025 5:33 AM EDT) Only the most recent of6 resultswithin the time period is included. Sodium 144 136 - 145 mmol/L 06/12/2025 5:55 AM EDT [facility] Potassium 4.0 3.5 - 5.0 mmol/L 06/12/2025 5:55 AM EDT [facility] Chloride 108(H) 98 - 107 mmol/L 06/12/2025 5:55 AM EDT [facility] Total CO2 27 22 - 29 mmol/L 06/12/2025 5:55 AM EDT [facility] Anion Gap 9 7 - 16 mmol/L 06/12/2025 5:55 AM EDT [facility] Calcium 8.5(L) 8.8 - 10.4 mg/dL 06/12/2025 5:55 AM EDT [facility] Glucose Lvl 137(H) 70 - 99 mg/dL 06/12/2025 5:55 AM EDT [facility] BUN 14 8 - 23 mg/dL 06/12/2025 5:55 AM EDT [facility] Creatinine 0.64 0.51 - 1.30 mg/dL 06/12/2025 5:55 AM EDT [facility] eGFR (CKD-EPIcr 2020) 86 >=60 mL/min/1.7 3 m2 06/12/2025 5:55 AM T [facility] Comment:Estimated GFR was ca lculated using the CKD-EPIcr (2020) equation refit without race. The equation is recommended by the National Kidney Foundation - [place] [employer]ph[employer] Task Force. Blood VENOUS BLOOD / Unknown Venipuncture / Unknown 06/12/2025 5:33 AM EDT 06/12/2025 5:33 AM EDT us Jennifer Fontana APRN CHEMISTRY ORDERABLES Fin al Result Performing Organization Address City/[facility]/ZIP Co de Phone Number [facility] [address] [place] [address] * EXTRA LAVENDER (06/11/2025 6:17 AM EDT) Blood VENOUS BLOOD / Unknown Venipuncture / Unknown 06/11/2025 6:17 AM EDT 06/11/2025 9:04 AM EDT Hugh Zamarripa MD HEMATOLOGY ORDERABLES Fi nal Result Performing Organization Address City/[facility]/ZIP Co de Phone Number [facility] [address] [place] [address] * REPEAT LACTIC ACID (06/11/2025 6:17 AM EDT) Only the most recent of4 resultswithin the time period is included. Lactic Acid 1.9 0.5 - 1.9 mmol/L 06/11/2025 6:31 AM EDT [facility] Blood VENOUS BLOOD / Unknown Venipuncture / Unknown 06/11/2025 6:17 AM EDT 06/11/2025 6:17 AM EDT Hugh Zamarripa MD CHEMISTRY ORDERABLES Fin al Result [facility] [address] [place] [address] * PROCALCITONIN (06/10/2025 11:52 AM EDT) Pathologist [facility] Procalcitonin 0.08 <=0.49 ng/mL 06/10/2025 7:35 PM EDT [facility] Blood VENOUS BLOOD / Unknown Venipuncture / Unknown 06/10/2025 11:52 AM EDT 06/10/2025 12:00 PM EDT Narrative [facility] - 06/10/2025 7:35 PM EDT Procalcitonin <0.50 [...] Fontana APRN CHEMISTRY ORDERABLES Fin al Result [facility] [address] [place] [address], [place] [address] * (ABNORMAL) LACTIC ACID (06/10/2025 11:52 AM EDT) Lactic Acid 2.1(H) 0.5 - 1.9 mmol/L 06/10/2025 12:13 PM EDT [facility] Blood VENOUS BLOOD / Unknown Venipuncture / Unknown 06/10/2025 11:52 AM EDT 06/10/2025 12:00 PM EDT Jennifer Fontana APRN CHEMISTRY ORDERABLES Fin al Result Performing Organization Address [facility] Co de Phone Number [facility] [address] [place] [address] * XR CHEST AP PORTABLE (06/10/2025 11:38 [...] UA Color Yellow 06/07/2025 9:08 PM EDT [facility] UA Appear Clear Clear 06/07/2025 9:08 PM EDT [facility] UA Glucose Negative Negative mg/dL 06/07/2025 9:08 PM EDT [facility] UA Ketones Negative Negative mg/dL 06/07/2025 9:08 PM EDT [facility] UA Blood Negative Negative 06/07/2025 9:08 PM EDT [facility] UA pH 6.0 5.0 - 8.0 pH 06/07/2025 9:[facility] Protein Trace(A) Negative mg/dL 06/07/2025 9:08 PM EDT [facility] UA Urobilinogen 0.2 <=1 mg/dL 9:08 PM [facility] UA Bili Negative Negative 06/07/2025 9:08 PM EDT [facility] UA Nitrite Negative Negative 06/07/2025 9:08 [facility] UA Leuk Est Small(A) Negative 06/07/2025 9:08 PM [facility] UA Spec Grav 1.025 1.001 - 1.035 no units 06/07/2025 9:08 PM [facility] Comment:Reference range tessie d for random specimens only. UA WBC 10(H) 0 - 4 /HPF 06/07/2025 9:08 PM EDT [facility] UA RBC 0 0 - 3 /HPF 06/07/2025 9:08 PM EDT [facility] UA Squam Epi 2+ /LPF 06/07/2025 9:08 PM EDT [facility] UA Mucus 2+ /LPF 06/07/2025 9:08 PM EDT [facility] UA Amorph 1+ /HPF 06/07/2025 9:08 PM EDT [facility] UA Bacteria Trace(A) Negative /HPF 06/07/2025 9:08 PM EDT [facility] Urine STRUCTURE OF URINARY TRACT PROPER / Unknown 06/07/2025 8:48 PM EDT 06/07/2025 8:59 PM EDT us Viral Sargent V, DO URINE ORDERABLES Final Result Performing Organization Address [facility] Co de Phone Number [facility] [address] [place] [address] * EXTRA LAUGHLIN URINE CX (06/07/2025 8:48 PM EDT) Urine STRUCTURE OF URINARY TRACT PROPER / Unknown 06/07/2025 8:48 PM EDT 06/07/2025 8:59 PM EDT us Viral Sargent V, DO MICROBIOLOGY - GENERAL ORDERAB LES Final Result Performing Organization Address [facility] Co de Phone Number [facility] [address] [place] [address] * (ABNORMAL) URINE CULTURE (NO STAIN) (06/07/2025 8:48 PM EDT) Culture Positive Growth(A) 06/10/2025 1:16 PM EDT [facility] Culture >100,000 CFU/mL Lactobacillus species SUSCEPTIB ILITY RESULT 06/10/2025 1:16 PM EDT [facility] Comment:No further workup. Culture 4,000 CFU/mL Ashley albicans SUSCEPTIB ILITY RESULT 06/10/2025 1:16 PM EDT [facility] Comment:No further workup. Urine STRUCTURE OF URINARY TRACT PROPER / Unknown 06/07/2025 8:48 PM EDT 06/07/2025 9:08 PM EDT us Viral Sargent V, DO MICROBIOLOGY - GENERAL ORDERAB LES Final Result [facility] [address] [facility] , [place] [address] * XR HIP LEFT AP [...] 3.7 - 10.3 x10(3)/mcL 06/07/2025 5:11 AM [facility] RBC 3.92 3.90 - 5.20 x10(6)/mcL 06/07/2025 5:11 AM [facility] Hgb 11.8 11.2 - 15.7 g/dL 06/07/2025 5:11 AM [facility] Hct 36.3 34.0 - 45.0 % 06/07/2025 5:11 AM [facility] MCV 92.6 80.0 - 100.0 fL 06/07/2025 5:11 AM [facility] MCH 30.1 26.0 - 34.0 pg 06/07/2025 5:11 AM [facility] MCHC 32.5 30.7 - 35.5 g/dL 06/07/2025 5:11 AM [facility] RDW 12.5 <=14.9 % 06/07/2025 5:11 AM [facility] Platelet 341 155 - 369 x10(3)/mcL 06/07/2025 5:11 AM [facility] MPV 9.0 8.8 - 12.5 fL 06/07/2025 5:11 AM [facility] Neut Percent 79.0 % 06/07/2025 5:11 AM [facility] Comment:Neutrophils equals s egs plus bands Imm Gran% 0.4 % 06/07/2025 5:11 AM [facility] Comment:Automated count of m etamyelocytes, myelocytes and promyelocytes. Lymph Percent 11.7 % 06/07/2025 5:11 AM [facility] [place] Percent 6.9 % 06/07/2025 5:11 AM [facility] Eos Percent 1.5 % 06/07/2025 5:11 AM [facility] Baso Percent 0.5 % 06/07/2025 5:11 AM [facility] Neut # 8.9(H) 1.6 - 6.1 x10(3)/mcL 06/07/2025 5:11 AM [facility] Comment:Neutrophils equals s egs plus bands IMMGRAN# 0.0 0.0 - 0.1 x10(3)/mcL 06/07/2025 5:11 AM EDT [facility] Comment:Automated count of m etamyelocytes, myelocytes and promyelocytes. An absolute IG <0.1 is reported as 0.0. Lymph # 1.3 1.2 - 3.9 x10(3)/mcL 06/07/2025 5:11 AM EDT [facility] [place] # 0.8 0.3 - 0.9 x10(3)/mcL 06/07/2025 5:11 AM EDT [facility] Eos# 0.2 0.0 - 0.5 x10(3)/mcL 06/07/2025 5:11 AM EDT [facility] Baso # 0.1 0.0 - 0.1 x10(3)/mcL 06/07/2025 5:11 AM EDT [facility] Blood VENOUS BLOOD / Unknown Venipuncture / Unknown 06/07/2025 5:09 AM EDT 06/07/2025 5:09 AM EDT us Viral Sargent V, DO HEMATOLOGY ORDERABLES Final Re sult [facility] [address] [place] [address] * PARTIAL THROMBOPLASTIN TIME (05/31/2025 4:43 PM EDT) [facility] PTT 31.8 25.7 - 36.8 second(s) 05/31/2025 4:58 PM EDT [facility] Comment: Therapeutic range for unfractionated [...] ORDERABLES Fi nal Result Performing Organization Address [facility] de Phone Number [facility] [address] [place] [address] * (ABNORMAL) PT / INR (05/31/2025 4:43 PM EDT) PT 13.7(H) 10.5 - 13.6 second(s) 05/31/2025 4:58 PM EDT [facility] INR 1.19(H) 0.91 - 1.18 (ratio) 05/31/2025 4:58 PM EDT [facility] Comment: Level of Therapy Indications Target INR Range Standard Dose Treatment and prophylaxis of venous 2.0 - 3.0 thrombosis, pulmonary embolism High Dose High risk patients with mechanical 2.5 - 3.5 heart valves Blood VENOUS BLOOD / Unknown Venipuncture / Unknown 05/31/2025 4:43 PM EDT 05/31/2025 4:47 PM EDT Hugh Zamarripa MD HEMATOLOGY ORDERABLES Fi nal Result Performing Organization Address [facility] de Phone Number [facility] [address], [place] [phone] * CT ABDOMEN PELVIS HEMATURIA/RENAL MASS PROTOCOL [...] of the ordering clinician. Hugh Zamarripa MD [facility] ORDERABLES Final Result * CREATININE ISTAT (05/30/2025 1:26 PM EDT) Creatinine-iST AT 0.9 0.6 - 1.3 mg/dL 05/30/2025 1:28 PM EDT [facility] Blood BLOOD SPECIMEN / Unknown 05/30/2025 1:26 PM EDT 05/30/2025 1:28 PM EDT Hugh Zamarripa MD POINT OF CARE TEST ORDER PEDRO LUIS Final Result [facility] [address] [place] [address] from Last 3 Months Insurance [place] Member Subscriber Plan / Payer (Ef fective 2005-Present) Name:Patricia Hills Relation to Subscriber:Self Name:Patricia Hills Payer ID:Not on file Group ID:Not on file Type:Not on file Address: O [address] DUAL ADVANTAGE [facility] [place] [id number] [employer] DUAL ADVANTAGE O [facility] MEDICAID [place] Advance Directives For more information, please contact: [phone] * Full Code (Latest Code Status on File) Date Activated Date Inactivated Comments 05/30/2025 6:09 AM 06/12/2025 3:25 PM
--- OUTSIDE RECORDS SUMMARY | 2025-06-14 10:31 | XMS_ITS | Clinical Summary ---
Author Organization [facility] Address [address] [id number] Care Team Providers Care Stacker And Sorter Operator Name Role Phone Pcp, No Primary [...] (one) time each day. Active nystatin (Mycostatin) [id number] UNIT/ML suspension Take 5 mL (500,000 Units) [...] or (1 - 1-dose 75+ series) 11/22/2015 [id number] Vaccine (1 - season) 2025 UKY-Influenza Vaccine [...] Patient has decision-making capacity? Yes Care Teams Stacker And Sorter Operator Relationship Specialty Start Date End Date Pcp, No [address] [place] [address] PCP - General Family Medicine 08/10/24
--- OUTSIDE RECORDS SUMMARY | 2025-06-14 10:31 | XMS_ITS | Encounter Summary ---
Author Organization Healthcare Address [address] [place] [address] Care Team Providers Care Manager Retail Name Role Phone Pcp, No Primary Care Provider Unavailabl e Encounter Details Date Type Department Care Team (Late st Contact Info) Description 05/12/2024 Orders Only External Location [address] [place] [address] Charlotte Jung, [address] [place] [address] Social History Tobacco Use Types [...] on filedocumented in this encounter Care Teams Manager Retail Relationship Specialty Start Date End Date Pcp, No [address] [place] [address] PCP - General Family Medicine 08/10/24 documented as of this encounter
--- OUTSIDE RECORDS SUMMARY | 2025-06-14 10:31 | XMS_ITS | Encounter Summary ---
Author Organization [facility] Address [address] [place] [address] Care Team Providers Care Home Health Care Social Worker Name Role Phone Pcp, No Primary Care Provider Unavailabl e Encounter Details Date Type Department Care Team (Late st Contact Info) Description 05/12/2024 Orders Only External Location [address] [place] [address] Charlotte Jung, [address] [place] [address] Social History Tobacco Use Types [...] on filedocumented in this encounter Care Teams Home Health Care Social Worker Relationship Specialty Start Date End Date Pcp, No [address] [place] [address] PCP - General Family Medicine 08/10/24 documented as of this encounter
--- OUTSIDE RECORDS SUMMARY | 2025-06-14 10:31 | XMS_ITS | Encounter Summary ---
Author Organization [facility] Address [address] [id number] Care Team Providers Care Scutcher Tender Name Role Phone Pcp, No Primary Care Provider Unavailabl e Reason for Referral * Consultation (Urgent) - Authorized Specialty Diagnoses / Procedures Referred By Contact Referred To Contact Vascular Surgery / [facility] Diagnoses Stenosis of carotid artery, unspecified laterality Prasad León MD [facility] [place] [address] Phone: tel:[phone] fax:[phone] [facility] [address] [facility] 5th [address] [place] [address] Phone: tel: fax: Referral ID Status Reason Start Date Expiration Date Visits Requested Visits Authorized [id number] Authorized Specialty Services Required 05/17/2024 11/16/2025 1 1 Encounter Details Date Type Department Care Team (Late st Contact Info) Description 05/17/2024 Community Orders Community Practice [address] [place] [address] Prasad León MD [address] [place] [address] Stenosis of carotid artery, unspecified [...] Primary documented in this encounter Care Teams Scutcher Tender Relationship Specialty Start Date End Date Pcp, Sonal [address] [place] [address] PCP - General Family Medicine 08/10/24 documented as of this encounter
--- NOTE | 2025-06-14 10:36 | EXP.CARD.CON ---
History of Present Illness History of Present Illness Consult date: 06/14/25 Requesting physician: Hong Stewart Consult reason: shortness of breath Chief complaint: SOB History of present illness: This is an 84-year-old female presented to the emergency department with complaints of shortness of breath. The patient states that she woke up yesterday and just felt extremely short of breath. She states that this was severe. She has previously been having intermittent, mild shortness of breath but yesterday it was severe. She states that she had tightness in her chest when she was significantly short of breath. She denies any lower extremity edema. She denies any fever, chills, nausea, vomiting or diarrhea. The patient was recently in the hospital here after a hip fracture. She went to rehab and was on oxygen at night. They sent her home from rehab without any oxygen and woke up yesterday morning profoundly short of breath. She states that she is feeling much better now and is ready to go home. [facility] Disclaimer: The information contained in this section may have been updated after the patient was seen, as this information can be updated by other users. Medical History (Updated 06/14/25 @ 13:39 by Tracy Luna APRN) Shortness of Breath Celiac artery stenosis Acute heart failure with preserved ejection fraction (HFpEF) Pleural effusion, bilateral Vertigo Transient neurological symptoms Encounter for immunization Thyroid nodule Visual hallucination Right-sided headache Coronary artery calcification seen on CT scan Pulmonary nodule Vitamin D deficiency Type 2 diabetes mellitus without complications Hyperlipidemia Diabetes mellitus HTN (hypertension) Degenerative joint disease (DJD) of lumbar spine Surgical History H/O removal of cyst History of cholecystectomy Hx of cataract surgery Family History Mother Coronary artery disease Grandmother Stroke Brother Heart attack Social History Smoking Status: Current some day smoker tobacco type: cigarettes packs per day: 1 alcohol intake: never substance use type: denies use current occupational status: other Travel in the last 8 weeks?: None household members: other housing: house Review of Systems Review of Systems Review of systems:: pertinent systems reviewed and negative unless documented below Constitutional Constitutional: Reports system reviewed and no additional complaints, except as documented Eyes Eyes: Reports system reviewed and no additional complaints, except as documented ENT Ears, Nose, Mouth, and Throat: Reports system reviewed and no additional complaints, except as documented *Cardiovascular Cardiovascular: Reports system reviewed and no additional complaints, except as documented, Reports chest pain, Reports dyspnea and Reports dyspnea on exertion *Respiratory Respiratory: Reports system reviewed and no additional complaints, except as documented, Reports dyspnea and Reports dyspnea on exertion *Gastrointestinal Gastrointestinal: Reports system reviewed and no additional complaints, except as documented *Genitourinary Genitourinary: Reports system reviewed and no additional complaints, except as documented *Musculoskeletal Musculoskeletal: Reports system reviewed and no additional complaints, except as documented Integumentary/Breasts Skin/Breast: Reports system reviewed and no additional complaints, except as documented *Neurologic Neurologic: Reports system reviewed and no additional complaints, except as documented Psychiatric Psychiatric: Reports system reviewed and no additional complaints, except as documented Endocrine Endocrine: Reports system reviewed and no additional complaints, except as documented Hematologic/Lymphatic Hematologic/Lymphatic: Reports system reviewed and no additional complaints, except as documented Allergic/Immunologic Allergic/Immunologic: Reports system reviewed and no additional complaints, except as documented Exam Data for Last 24 hours Vital signs and Labs for Last 24 Hours: Temp Pulse Resp BP Pulse Ox O2 Del Method O2 Flow Rate 98.2 F 79 22 141/65 H 96 Nasal Cannula 4 06/14/25 08:01 06/14/25 09:01 06/14/25 09:01 06/14/25 09:01 06/14/25 09:01 06/14/25 09:01 06/14/25 09:01 Laboratory Results - last 24 hr 06/13/25 23:48: WBC 9.9, RBC 3.63 L, Hgb 10.9 L, Hct 33.1 L, MCV 91.2, MCH 30.0, MCHC 32.9, RDW 13.0, Plt Count 350, MPV 9.0, Neut % (Auto) 75.1, Lymph % (Auto) 15.7, [place] % (Auto) 7.4, Eos % (Auto) 1.0, Baso % (Auto) 0.5, Neut # (Auto) 7.4, Lymph # (Auto) 1.6, [place] # (Auto) 0.7, Eos # (Auto) 0.1, Baso # (Auto) 0.1, PT 11.5, INR 1.04, APTT 23.1, VBG pH 7.42 H, VBG pCO2 49.5, VBG pO2 49.5 H, VBG HCO3 31.1 H, VBG Total CO2 32.6 H, VBG O2 Saturation 86.6 H, VBG Base Excess 6.6 H, VBG Lactic Acid 1.5, Sodium 140, Potassium 3.5, Chloride 104, Carbon Dioxide 31 H, Anion Gap 8.5, BUN 22 H, Creatinine 0.70, Estimated Creat Clear 45, Estimated GFR 80, Est GFR ( Amer) 96, Glucose 138 H, Calcium 8.5, Total Bilirubin 0.6, AST 23, ALT 10 L, Alkaline Phosphatase 106, Troponin I 0.07 H, NT-Pro-B Natriuret Pep 1230 H, Total Protein 5.5 L, Albumin 2.9 L, Globulin 2.6, Albumin/Globulin Ratio 1.1 06/14/25 03:02: Troponin I 0.07 H 06/14/25 06:33: WBC 9.8, RBC 3.99 L, Hgb 11.9 L, Hct 36.7 L, MCV 92.0, MCH 29.8, MCHC 32.4, RDW 13.0, Plt Count 333, MPV 8.9, Neut % (Auto) 80.9 H, Lymph % (Auto) 10.4, [place] % (Auto) 7.3, Eos % (Auto) 0.6, Baso % (Auto) 0.4, Neut # (Auto) 7.9 H, Lymph # (Auto) 1.0, [place] # (Auto) 0.7, Eos # (Auto) 0.1, Baso # (Auto) 0.0, Sodium 140, Potassium 3.3 L, Chloride 100, Carbon Dioxide 34 H, Anion Gap 9.3, BUN 17, Creatinine 0.70, Estimated Creat Clear 42, Estimated GFR 80, Est GFR ( Amer) 96, Glucose 124 H, Calcium 8.1 L, Troponin I 0.06 H I & O for Last 24 hours: Intake & Output 06/11/25 06/12/25 06/13/25 06/14/25 23:59 23:59 23:59 23:59 Intake Total 3.95 / 3.95 Output Total 1000 / 1000 Balance -996.05 / -996.05 Weight 150 lb 139 lb 8.842 oz Constitutional Constitutional: no acute distress and average body habitus *Routine HEENT Exam Head: Present normocephalic and atraumatic ENT: Present mucous membranes moist *Routine Neck Exam Neck: Present supple, full ROM and normal carotid upstroke; Absent JVD, carotid bruit or lymphadenopathy *Routine Respiratory Exam Respiratory: Present CTA bilaterally, normal respiratory effort, able to speak in complete sentences and symmetric chest movement *Routine Cardiovascular Exam Cardiovascular: Present RRR, Normal S1 and Normal S2; Absent murmur or gallop *Routine Abdominal Exam Abdominal: Present soft and normoactive bowel sounds; Absent tenderness, distended or organomegaly *Routine Extremities Exam Extremities: Present full ROM, pulses intact and normal capillary refill; Absent cyanosis, clubbing or edema *Routine Skin Exam Skin: Present intact and warm; Absent erythema *Routine Neurological Exam Neurological: Present alert, oriented X3 and CN II-XII intact; Absent sensory deficit or motor deficit Routine Psychiatric Exam Psychiatric: Present normal affect Meds Home Medications and Allergies Home Medications ?Medication ?Instructions ?Recorded ?Confirmed ?Type aspirin 81 mg tablet,delayed 81 mg PO DAILY #100 tabs 07/06/24 06/14/25 Rx release clopidogrel 75 mg tablet (Plavix) 75 mg PO DAILY #90 tabs 07/06/24 06/14/25 Rx nebulizer accessories #1 ea 08/08/24 06/14/25 Rx nebulizers #1 ea 08/08/24 06/14/25 Rx blood sugar diagnostic (OneTouch #50 ea 04/03/25 06/14/25 Rx Verio test strips) cholecalciferol (vitamin D3) 25 25 mcg PO DAILY 04/03/25 06/14/25 History mcg (1,000 unit) capsule citalopram 10 mg tablet 5 mg (1/2 x 10 mg) PO BID #30 tabs 04/03/25 06/14/25 Rx rosuvastatin 5 mg tablet 5 mg PO HS #90 tabs 04/26/25 06/14/25 Rx metformin 500 mg tablet,extended 500 mg PO BID #60 tabs 05/10/25 06/14/25 Rx release 24 hr betamethasone dipropionate 0.05 % 1 applic topical BIDP PRN skin 05/25/25 06/14/25 History topical cream irritation albuterol sulfate 90 mcg/actuation 2 puff inhalation Q6H PRN 05/29/25 06/14/25 Rx aerosol inhaler (Ventolin HFA) Shortness of breath 30 days #0 grams ipratropium 0.5 mg-albuterol 3 mg 3 ml inhalation Q6RT 30 days #90 mL 05/29/25 06/14/25 Rx (2.5 mg base)/3 mL nebulization soln pantoprazole 40 mg tablet,delayed 40 mg PO HS 30 days #30 tabs 05/29/25 06/14/25 Rx release insulin glargine 100 unit/mL 10 unit SQ HS 06/14/25 06/14/25 History subcutaneous solution (Lantus U-100 Insulin) irbesartan 300 mg tablet 300 mg PO DAILY 06/14/25 06/14/25 History metoprolol tartrate 50 mg tablet 25 mg PO BID 06/14/25 06/14/25 History New Prescriptions to Start Prescriptions: Allergies Allergy/AdvReac Type Severity Reaction Status Date / Time Penicillins Allergy Severe swelling Verified 06/12/25 14:00 doxycycline Allergy Mild Unknown Verified 06/12/25 14:00 allergy reaction levofloxacin (From Levaquin) Allergy Anaphylaxis Verified 06/12/25 14:00 moxifloxacin (From Avelox) Allergy Hives Verified 06/12/25 14:00 brompheniramine AdvReac Unknown Verified 06/12/25 14:00 allergy reaction bupivacaine (From Marcaine) AdvReac Unknown Verified 06/12/25 14:00 allergy reaction cephalexin (From Keflex) AdvReac Unknown Verified 06/12/25 14:00 allergy reaction clarithromycin AdvReac Unknown Verified 06/12/25 14:00 allergy reaction fluvastatin (From Lescol) AdvReac Unknown Verified 06/12/25 14:00 allergy reaction hydrochlorothiazide AdvReac Unknown Verified 06/12/25 14:00 allergy reaction lovastatin (From Altocor) AdvReac Unknown Verified 06/12/25 14:00 allergy reaction nitrofurantoin (From AdvReac Unknown Verified 06/12/25 14:00 Macrobid) allergy reaction triamcinolone (From Kenalog) AdvReac Unknown Verified 06/12/25 14:00 allergy reaction Assessment and Plan *Assessment and plan (1) Non-ST elevation [place] (NSTEMI): Status: Acute Category: Medical Code(s): I21.4 - Non-ST elevation (NSTEMI) myocardial infarction (2) Shortness of Breath: Status: Acute Category: Medical Code(s): R06.02 - Shortness of breath (3) Pleural effusion, bilateral: Status: Acute Category: Medical Code(s): J90 - Pleural effusion, not elsewhere classified (4) Acute heart failure with preserved ejection fraction (HFpEF): Status: Acute Category: Medical Code(s): I50.31 - Acute diastolic (congestive) heart failure (5) Hyperlipidemia: Status: Acute Qualifiers: Hyperlipidemia type: mixed hyperlipidemia Qualified Code(s): E78.2 - Mixed hyperlipidemia Category: Medical Code(s): E78.5 - Hyperlipidemia, unspecified (6) Diabetes mellitus: Status: Acute Qualifiers: Diabetes mellitus complication status: without complication Diabetes mellitus nursing home insulin use: without nursing home use Diabetes mellitus type: type 2 Qualified Code(s): E11.9 - Type 2 diabetes mellitus without complications Category: Medical Code(s): E11.9 - Type 2 diabetes mellitus without complications (7) HTN (hypertension): Status: Acute Qualifiers: Hypertension type: primary hypertension Qualified Code(s): I10 - Essential (primary) hypertension Category: Medical Code(s): I10 - Essential (primary) hypertension (8) Coronary artery calcification seen on CT scan: Status: Acute Category: Medical Code(s): I25.10 - Atherosclerotic heart disease of [place] coronary artery without angina pectoris (9) Carotid artery stenosis: Status: Acute Qualifiers: Laterality: bilateral Qualified Code(s): I65.23 - Occlusion and stenosis of bilateral carotid arteries Category: Medical Code(s): I65.29 - Occlusion and stenosis of unspecified carotid artery (10) Celiac artery stenosis: Status: Acute Category: Medical Code(s): 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 Plan Plan: 1. The patient was admitted to the hospital with an elevated troponin. CT of the chest does show mild coronary calcifications. This is likely a type II non-STEMI from acute HFpEF. 2. The patient does have an elevated BNP and CT which showed small bilateral pleural effusions, unchanged from previous. Will give the patient Lasix 40 mg IV twice daily for diuresis. She will need to be on Lasix 40 mg daily at the time of discharge. 3. The patient does have a history of carotid artery stenosis. She is on Plavix and aspirin. Will continue this. 4. Her blood pressure is well-controlled. Will change her metoprolol to metoprolol tartrate 25 mg p.o. twice daily. She was only taking this once daily. 5. Her LDL goal is less than 55. Her LDL is 50 in March 2025. She is on Crestor. 6. Echocardiogram shows an ejection fraction of 70% with trivial pericardial effusion. 7. The patient does have severe celiac artery stenosis on CT as well. She does not have any complaints of early satiety, abdominal pain or weight loss. 8. The patient can be discharged home today from a cardiac standpoint. She will need outpatient Lexiscan Myoview stress test within the next 3 to 4 days and follow-up in cardiology clinic in 1 week. The patient will need to be discharged on the following cardiac medications: Aspirin 81 mg daily Plavix 75 mg daily Metoprolol to tartrate 25 mg p.o. twice daily Crestor 5 mg daily Lasix 40 mg daily Irbesartan 300 mg daily Thank you for the opportunity to help participate in the care of this patient. All recommendations and orders are per Dr. Cook.
--- NOTE | 2025-06-14 10:37 | SW/DCPLANNER ---
Addendum entered by Shantal Rich 06/14/25 11:50: Spoke with [facility] and they stated that when the patient is DC they will need a SORAYA. I stated to [facility] that i will let them know when patient is DC. Jean UM Addendum entered by Dominique Izaguirre 06/14/25 11:34: [facility] is unable to accept patient due to being a swingbed facility. Patient prefers to return home w/ family assistance 24-7 and resuming home health services ([facility]). Patient has requested a bedside commode, wheelchair and home O2 if qualifies from [facility]. I will update CM and MD. Per MD patient could be ready for discharge this afternoon. Original Note: I spoke w/ patient and her family regarding plans once medically stable for discharge. PT/OT evaluated patient and recommended SNF level of care at time of discharge. Patient/family are agreeable to placement and prefer to return to [facility] swingbed unit (recently discharged). I have called and left a voicemail w/ swing bed unit regarding bed availability. CM will continue to follow up. Discharge date is unknown at this time.
--- NOTE | 2025-06-14 10:41 | HMH.PTEV ---
Physical Therapy Evaluation Rehab PT IP Evaluation Start: 06/14/25 04:03 Freq: ONCE Status: Active Protocol: Document 06/14/25 10:29 BREANNE (Rec: 06/14/25 10:40 BREANNE [id number]) Subjective/History History History Per H&P: Patient is a 84-year-old female with past medical history of COPD diabetes mellitus hypertension who presents to the hospital due to shortness of breath and chest pressure. According to the patient and family at the bedside patient is supposed to be on oxygen at home however patient was not sent home with oxygen, patient was noticed to have hypoxia on arrival to the hospital, patient at time of my evaluation denies chest pain shortness of breath nausea vomiting diarrhea constipation dysuria fevers and chills. On further evaluation patient was noticed to have elevated troponin and was admitted for possible NSTEMI. Subjective Subjective Pt and family provided hx. Pt has just returned home from rehab. Pt lives with her daughter in a 2-story home with 6 DENISSE with 1 HR. Pt's daughter reports there is more family support that assists with mobility tasks like stair negotiation. Pt stays on the ground level. Pt normally able to ambulate short distances with family assistance. [facility] How much help from another person do you currently need... Turning from your A little back to your side while in a flat bed without using bedrails? Moving from lying on A little back to sitting on the side of a flat bed without using bedrails? Moving to and from a A little bed to a chair ( including a wheelchair)? Standing up from a A little chair using your arms? (e.g., wheelchair, bedside chair) Walking in hospital A little room? Climbing 3-5 steps A lot with a railing? Mobility Score 17 Mobility Level [facility] Mobility 5 Stand (1 or more minutes) Mobility Calculator Rehab PT IP Eval Objective Appearance Patient Behavior Appropriate,Cooperative Patient Orientation Person Difficulty following none instructions Speech Pattern Clear Ambulation Patient Able to Yes Ambulate Ambulation Observation IP General Gait Antalgic Gait Pattern Observation Ambulation Distance 3 (feet) Ambulation Assistive Rolling Walker Device Ambulation Ability Minimal x 1 (25% assist) Balance Ability to Arise Able, uses arms to help Sitting Balance Steady, safe Standing Balance Steady, wide stance Dynamic Sitting Good Balance Ability Dynamic Standing Fair Balance Ability Transfers Bed Transfer Ability Minimal x 1 (25% assist) Sit to Stand Bed Moderate x 1 (50% assist) Transfer Ability Rehab PT IP prob,goals,plan Problems Date of Evaluation: 06/14/25 PT IP Problems Bed Mobility,Transfers,Gait,Balance,Self care,Safety Rehab Potential Rehab Potential Good Plan PT Intervention Plan Bed Mobility,Transfers,Gait,Balance,Self care,Safety, Therapeutic Exercise Other Intervention 1-2 times Plan PT Plan Frequency Daily Duration LOS Discharge Goals Bed Transfer Ability Contact Guard/Hand Hold Sit to Stand Chair Minimal x 1 (25% assist) Transfer Ability Ambulation Assistive Rolling Walker Device Ambulation Distance 10 (feet) Discharge Plan PT Discharge Plan Initial physical therapy evaluation performed. Patient presents below baseline at this time in functional mobility, transfers, and strength. PT recommending inpatient rehabilitation facility (IRF) placement upon d/c from [facility]. Pt would benefit from skilled PT while at [facility] to prevent further functional decline and maximize safety with mobility. If pt's family declining rehab, pt may return home with / assistance and PT. Eval Complexity Eval Charge Codes 16368 - Moderate Complexity PHYSICIAN CERTIFICATION: I certify the specified therapy services for [place] are required, authorized, and reviewed every 30 days.
--- NOTE | 2025-06-14 11:13 | HMH.OTEV ---
OT Evaluation Rehab OT IP Evaluation Start: 06/14/25 04:03 Freq: ONCE Status: Active Protocol: Document 06/14/25 11:08 RMARSHALL (Rec: 06/14/25 11:13 [facility] [id number]) Rehab OT IP Assessment Subjective History Per H&P: Patient is a 84-year-old female with past medical history of COPD diabetes mellitus hypertension who presents to the hospital due to shortness of breath and chest pressure. According to the patient and family at the bedside patient is supposed to be on oxygen at home however patient was not sent home with oxygen, patient was noticed to have hypoxia on arrival to the hospital, patient at time of my evaluation denies chest pain shortness of breath nausea vomiting diarrhea constipation dysuria fevers and chills. On further evaluation patient was noticed to have elevated troponin and was admitted for possible NSTEMI. Subjective Pt was recently released for short term rehab and had returned home. She had only been home ~3 days and then became weaker and was having difficulty with functional transfers. Pt normally resides with her daughter. Pt claims she is usually independent with all ADLs, but recently has been requiring assistance with ADLs. She is dependent upon daughter for completion of all IADLs. Pt uses a rolling walker during functional transfers in order to increase safety . Objective Patient Orientation Person,Place,Birthday Right Upper Min Limitation <25% Extremity Gross ROM Left Upper Extremity Min Limitation <25% Gross ROM Shoulder ROM Muscle Weakness Limitations Elbow ROM Muscle Weakness Limitations Wrist Limitations of Muscle Weakness Range of Motion Bed Mobility bed mobility-scooting,bed mobility - supine/sit Assist Level Minimal x 2 (25% assist) Transfer Training Sit/Stand/Step Transfer Assist Level Minimal x 2 (25% assist) Chair Transfer Minimal x 2 (25% assist) Ability Chair Transfer Stand Step Pivot Technique Chair Transfer Rolling Walker Assistive Devices Feeding Ability Assist with Tray Set Up Rehab OT IP prob,goals,plan Problems Date of Evaluation: 06/14/25 OT IP Problems Bed Mobility,Transfers,Balance,Self care,Safety Rehab Potential Rehab Potential Good Equipment Needs Assistive Devices Rolling / Wheeled Walker Plan OT intervention Plan Bed Mobility,Transfers,Balance,Self care,Safety, Therapeutic Exercise OT Plan Frequency Daily Duration LOS Discharge Goals Bed Mobility Ability Assistance x1 Sit to Stand Chair Minimal x 1 (25% assist) Transfer Ability Chair Transfer Minimal x 1 (25% assist) Ability Chair Transfer Sit to/from Ambulatory Technique Chair Transfer Rolling Walker Assistive Devices Lower Body Dressing Moderate Assistance Ability Upper Body Dressing Minimal Assistance Ability Performing Toilet Moderate Assistance Hygiene Ability Overall Commode/ Minimal Assistance Toilet Transfer Ability Commode/Toilet Sit to/from Ambulatory Transfer Technique Discharge Plan OT Discharge Plan Pt will continue to be seen for OT services while at [facility]. Pt would benefit most from short term rehab at [facility]. However, if pt unable to do this she could return home with daughter and /7 assistance. If she did return home therapist would recommend OT evaluation for continued skilled therapy services. Continued skilled therapy services are important in order for patient to improve strength, safety, endurance, ADL independence, and functional transfers. Eval Complexity Eval Charge Codes 86652 - Moderate Complexity PHYSICIAN CERTIFICATION: I certify the specified therapy services for [place] are required, authorized, and reviewed every 30 days.
[2025-06-14] MEDS: IPRATROPIUM/ALBUTEROL 3 ML NEB IH (11:17)
--- NOTE | 2025-06-14 12:34 | CARE MANAGER ---
Addendum entered by Shantal Rich 06/14/25 14:23: Sent resumption of care to [facility]. Jean Coreas Addendum entered by Flor Sy RN 06/14/25 12:42: Patient requests DME to come from [facility]. Original Note: Patient will require a walker due to a mobility issue that cannot be corrected with a cane or walker. She does not have to be able to self-propel, but needs manual wheelchair for use inside the home. Patient also will require bedside commode due to not being able to get to toilet facilities due to mobility impairment.
--- NOTE | 2025-06-14 12:46 | PC.NURSE ---
pt's oxygen dropped to 84% while sitting up in the chair at rest.
--- NOTE | 2025-06-14 13:25 | EXP.DC.SUM ---
General Admission date:: 06/14/25 Discharge date: 06/14/25 HPI HPI HPI: Patient is a 84-year-old female with past medical history of COPD diabetes mellitus hypertension who presents to the hospital due to shortness of breath and chest pressure. According to the patient and family at the bedside patient is supposed to be on oxygen at home however patient was not sent home with oxygen, patient was noticed to have hypoxia on arrival to the hospital, patient at time of my evaluation denies chest pain shortness of breath nausea vomiting diarrhea constipation dysuria fevers and chills. On further evaluation patient was noticed to have elevated troponin and was admitted for possible NSTEMI. Hospital Course Hospital Course Hospital Course: Ms. Hills is a 84-year-old female who was recently admitted for hip fracture. Discharged to rehab. Got home yesterday from rehab and had no oxygen, became hypoxic and in distress. Presented to the ER for further evaluation. Found to have hypertensive emergency with elevated BNP of 1200 and troponin 0.06 with oxygen requirement. Admitted to ICU for further management. Initiated on nitroglycerin drip for hypertensive emergency with good response. Blood pressure improving by morning. Evaluated by cardiology. Stable to discharge home with close follow-up as an outpatient. Was evaluated by therapy and they recommended placement back in rehab for continued therapy and to improve mobility. Patient did not want to proceed with placement and elected instead to go home with home health. DME ordered at discharge. Discharged with family. Problems addressed as follows: Hypertensive emergency. Type II NSTEMI - Presented with severely elevated blood pressures. Necessitating initiation of nitroglycerin drip. Responded well. Also had type II NSTEMI due to demand ischemia from known CAD but insufficient oxygen supply due to hypertension and myocardial demand. Responded well to drip. Transition to oral blood pressure regimen. Resume metoprolol, changed to tartrate 25 mg twice daily. Only taking once daily prior. Resume Plavix and aspirin daily. Responded well to Lasix during admission. Continue Lasix 40 mg daily at discharge. Echo obtained that shows EF of 70% with trivial pericardial effusion. In addition, resume Crestor 5 mg daily for hyperlipidemia, irbesartan 300 mg daily for blood pressure. Blood pressure improved 124/79 by time of discharge. Follow-up with cardiology in the next 1 to 2 weeks. Left displaced femoral neck fracture, admitted 3 weeks ago for fracture. - Left hip hemiarthroplasty performed 05/26. Had prolonged episode of confusion after procedure. Eventually discharged to therapy with improvement in mobility. Graciously accepted to [facility] for therapy. Was just discharged yesterday and unfortunately did not have oxygen when she got home. Hip appears stable. Will discharge home with home health therapy after evaluation and by PT and OT and discussion with patient about her preference despite therapy's recommendation for placement. Ordered wheelchair, bedside commode, and supplemental oxygen. Type 2 diabetes: Patient appears to be well-controlled, A1c 03/2025 was 6.3%.Continue home metformin 500 mg twice daily #Mass of the adrenal gland: Currently patient is without any symptomology that denotes adrenal gland dysfunction. Patient can follow-up outpatient at discharge. #Coronary artery disease: Patient has a history of CAD with stent placement, aspirin 81 mg and Plavix 75 mg daily resumed. During previous admission had pneumonia and respiratory failure. Still requiring oxygen. Room air saturation of 84% at rest. Continue 2 L nasal cannula continuously. Exam Data for Last 24 hours Vital signs and Labs for Last 24 Hours: Temp Pulse Resp BP Pulse Ox O2 Del Method O2 Flow Rate 98.4 F 79 14 124/49 L 84 L Room Air 4 06/14/25 12:07 06/14/25 12:45 06/14/25 12:07 06/14/25 12:07 06/14/25 12:45 06/14/25 12:45 06/14/25 12:07 Laboratory Results - last 24 hr 06/13/25 23:48: WBC 9.9, RBC 3.63 L, Hgb 10.9 L, Hct 33.1 L, MCV 91.2, MCH 30.0, MCHC 32.9, RDW 13.0, Plt Count 350, MPV 9.0, Neut % (Auto) 75.1, Lymph % (Auto) 15.7, [place] % (Auto) 7.4, Eos % (Auto) 1.0, Baso % (Auto) 0.5, Neut # (Auto) 7.4, Lymph # (Auto) 1.6, [place] # (Auto) 0.7, Eos # (Auto) 0.1, Baso # (Auto) 0.1, PT 11.5, INR 1.04, APTT 23.1, VBG pH 7.42 H, VBG pCO2 49.5, VBG pO2 49.5 H, VBG HCO3 31.1 H, VBG Total CO2 32.6 H, VBG O2 Saturation 86.6 H, VBG Base Excess 6.6 H, VBG Lactic Acid 1.5, Sodium 140, Potassium 3.5, Chloride 104, Carbon Dioxide 31 H, Anion Gap 8.5, BUN 22 H, Creatinine 0.70, Estimated Creat Clear 45, Estimated GFR 80, Est GFR ( Amer) 96, Glucose 138 H, Calcium 8.5, Total Bilirubin 0.6, AST 23, ALT 10 L, Alkaline Phosphatase 106, Troponin I 0.07 H, NT-Pro-B Natriuret Pep 1230 H, Total Protein 5.5 L, Albumin 2.9 L, Globulin 2.6, Albumin/Globulin Ratio 1.1 06/14/25 03:02: Troponin I 0.07 H 06/14/25 06:33: WBC 9.8, RBC 3.99 L, Hgb 11.9 L, Hct 36.7 L, MCV 92.0, MCH 29.8, MCHC 32.4, RDW 13.0, Plt Count 333, MPV 8.9, Neut % (Auto) 80.9 H, Lymph % (Auto) 10.4, [place] % (Auto) 7.3, Eos % (Auto) 0.6, Baso % (Auto) 0.4, Neut # (Auto) 7.9 H, Lymph # (Auto) 1.0, [place] # (Auto) 0.7, Eos # (Auto) 0.1, Baso # (Auto) 0.0, Sodium 140, Potassium 3.3 L, Chloride 100, Carbon Dioxide 34 H, Anion Gap 9.3, BUN 17, Creatinine 0.70, Estimated Creat Clear 42, Estimated GFR 80, Est GFR ( Amer) 96, Glucose 124 H, Calcium 8.1 L, Troponin I 0.06 H I & O for Last 24 hours: Intake & Output 06/11/25 06/12/25 06/13/25 06/14/25 23:59 23:59 23:59 23:59 Intake Total 643.95 / 643.95 Output Total 1000 / 1000 Balance -356.05 / -356.05 Weight 68.039 kg 63.3 kg Constitutional Constitutional: no acute distress, average body habitus, chronically ill appearing and cooperative *Routine HEENT Exam Head: Present normocephalic Eye: Present EOMI and PERRL ENT: Present mucous membranes moist *Routine Neck Exam Neck: Present supple; Absent lymphadenopathy *Routine Respiratory Exam Respiratory: Present CTA bilaterally; Absent wheezes or crackles *Routine Cardiovascular Exam Cardiovascular: Present RRR *Routine Abdominal Exam Abdominal: Present soft and normoactive bowel sounds; Absent tenderness *Routine Rectal Exam Patient deferred: visual exam *Routine Exam Patient deferred: external exam *Routine Extremities Exam Extremities: Absent cyanosis, clubbing or edema Comments: Left hip with no erythema *Routine Skin Exam Skin: Present intact and warm; Absent rash *Routine Neurological Exam Neurological: Present alert and moving all extremities; Absent altered mental status Comments: oriented to self and place Results Data Completed and Pending Labs on day of discharge: Labs from last 24 hours 06/14/25 06/14/25 06/13/25 06:33 03:02 23:48 WBC 9.8 9.9 RBC 3.99 L 3.63 L Hgb 11.9 L 10.9 L Hct 36.7 L 33.1 L MCV 92.0 91.2 MCH 29.8 30.0 MCHC 32.4 32.9 RDW 13.0 13.0 Plt Count 333 350 MPV 8.9 9.0 Neut % (Auto) 80.9 H 75.1 Lymph % (Auto) 10.4 15.7 [place] % (Auto) 7.3 7.4 Eos % (Auto) 0.6 1.0 Baso % (Auto) 0.4 0.5 Neut # (Auto) 7.9 H 7.4 Lymph # (Auto) 1.0 1.6 [place] # (Auto) 0.7 0.7 Eos # (Auto) 0.1 0.1 Baso # (Auto) 0.0 0.1 PT 11.5 INR 1.04 APTT 23.1 VBG pH 7.42 H VBG pCO2 49.5 VBG pO2 49.5 H VBG HCO3 31.1 H VBG Total CO2 32.6 H VBG O2 Saturation 86.6 H VBG Base Excess 6.6 H VBG Lactic Acid 1.5 Sodium 140 140 Potassium 3.3 L 3.5 Chloride 100 104 Carbon Dioxide 34 H 31 H Anion Gap 9.3 8.5 BUN 17 22 H Creatinine 0.70 0.70 Estimated Creat Clear 42 45 Estimated GFR 80 80 Est GFR ( Amer) 96 96 Glucose 124 H 138 H Calcium 8.1 L 8.5 Total Bilirubin 0.6 AST 23 ALT 10 L Alkaline Phosphatase 106 Troponin I 0.06 H 0.07 H 0.07 H NT-Pro-B Natriuret Pep 1230 H Total Protein 5.5 L Albumin 2.9 L Globulin 2.6 Albumin/Globulin Ratio 1.1 DS: Diagnosis Discharge Diagnosis (1) Hypertensive emergency: Status: Acute Code(s): I16.1 - Hypertensive emergency (2) Non-ST elevation [place] (NSTEMI): Status: Acute Code(s): I21.4 - Non-ST elevation (NSTEMI) myocardial infarction (3) Pleural effusion, bilateral: Status: Acute Code(s): J90 - Pleural effusion, not elsewhere classified (4) Hyperlipidemia: Status: Acute Code(s): E78.5 - Hyperlipidemia, unspecified Qualifiers: Hyperlipidemia type: mixed hyperlipidemia Qualified Code(s): E78.2 - Mixed hyperlipidemia (5) Diabetes mellitus: Status: Acute Code(s): E11.9 - Type 2 diabetes mellitus without complications Qualifiers: Diabetes mellitus complication status: without complication Diabetes mellitus half-way insulin use: without half-way use Diabetes mellitus type: type 2 Qualified Code(s): E11.9 - Type 2 diabetes mellitus without complications (6) HTN (hypertension): Status: Acute Code(s): I10 - Essential (primary) hypertension Qualifiers: Hypertension type: primary hypertension Qualified Code(s): I10 - Essential (primary) hypertension (7) Coronary artery calcification seen on CT scan: Status: Acute Code(s): I25.10 - Atherosclerotic heart disease of [place] coronary artery without angina pectoris (8) Carotid artery stenosis: Status: Acute Code(s): I65.29 - Occlusion and stenosis of unspecified carotid artery Qualifiers: Laterality: bilateral Qualified Code(s): I65.23 - Occlusion and stenosis of bilateral carotid arteries (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(s): 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 (10) Shortness of Breath: Status: Acute Code(s): R06.02 - Shortness of breath (11) Left displaced femoral neck fracture: Status: Acute Code(s): S72.002A - Fracture of unspecified part of neck of left femur, initial encounter for closed fracture Problem details: s/p Hemiarthroplasty DOS 05/26/25 Meds Home Medications and Allergies Home Medications ?Medication ?Instructions ?Recorded ?Confirmed ?Type aspirin 81 mg tablet,delayed 81 mg PO DAILY #100 tabs 07/06/24 06/14/25 Rx release clopidogrel 75 mg tablet (Plavix) 75 mg PO DAILY #90 tabs 07/06/24 06/14/25 Rx nebulizer accessories #1 ea 08/08/24 06/14/25 Rx nebulizers #1 ea 08/08/24 06/14/25 Rx blood sugar diagnostic (OneTouch #50 ea 04/03/25 06/14/25 Rx Verio test strips) cholecalciferol (vitamin D3) 25 25 mcg PO DAILY 04/03/25 06/14/25 History mcg (1,000 unit) capsule citalopram 10 mg tablet 5 mg (1/2 x 10 mg) PO BID #30 tabs 04/03/25 06/14/25 Rx rosuvastatin 5 mg tablet 5 mg PO HS #90 tabs 04/26/25 06/14/25 Rx metformin 500 mg tablet,extended 500 mg PO BID #60 tabs 05/10/25 06/14/25 Rx release 24 hr betamethasone dipropionate 0.05 % 1 applic topical BIDP PRN skin 05/25/25 06/14/25 History topical cream irritation albuterol sulfate 90 mcg/actuation 2 puff inhalation Q6H PRN 05/29/25 06/14/25 Rx aerosol inhaler (Ventolin HFA) Shortness of breath 30 days #0 grams ipratropium 0.5 mg-albuterol 3 mg 3 ml inhalation Q6RT 30 days #90 mL 05/29/25 06/14/25 Rx (2.5 mg base)/3 mL nebulization soln pantoprazole 40 mg tablet,delayed 40 mg PO HS 30 days #30 tabs 05/29/25 06/14/25 Rx release furosemide 40 mg tablet (Lasix) 40 mg PO DAILY #30 tabs 06/14/25 Rx insulin glargine 100 unit/mL 10 unit SQ HS 06/14/25 06/14/25 History subcutaneous solution (Lantus U-100 Insulin) irbesartan 300 mg tablet 300 mg PO DAILY 06/14/25 06/14/25 History metoprolol tartrate 50 mg tablet 25 mg PO BID 06/14/25 06/14/25 History New Prescriptions to Start Prescriptions: furosemide [Lasix] Hong Stewart Allergies Allergy/AdvReac Type Severity Reaction Status Date / Time Penicillins Allergy Severe swelling Verified 06/12/25 14:00 doxycycline Allergy Mild Unknown Verified 06/12/25 14:00 allergy reaction levofloxacin (From Levaquin) Allergy Anaphylaxis Verified 06/12/25 14:00 moxifloxacin (From Avelox) Allergy Hives Verified 06/12/25 14:00 brompheniramine AdvReac Unknown Verified 06/12/25 14:00 allergy reaction bupivacaine (From Marcaine) AdvReac Unknown Verified 06/12/25 14:00 allergy reaction cephalexin (From Keflex) AdvReac Unknown Verified 06/12/25 14:00 allergy reaction clarithromycin AdvReac Unknown Verified 06/12/25 14:00 allergy reaction fluvastatin (From Lescol) AdvReac Unknown Verified 06/12/25 14:00 allergy reaction hydrochlorothiazide AdvReac Unknown Verified 06/12/25 14:00 allergy reaction lovastatin (From Altocor) AdvReac Unknown Verified 06/12/25 14:00 allergy reaction nitrofurantoin (From AdvReac Unknown Verified 06/12/25 14:00 Macrobid) allergy reaction triamcinolone (From Kenalog) AdvReac Unknown Verified 06/12/25 14:00 allergy reaction Discharge Plan Disposition Patient Disposition: Home Health Service Condition: Good Discharge Order Discharge Orders: Discharge Order (Routine); Ordered 06/14/25 Ordered By: Hong Stewart Follow up Plan Follow up with: Tracy Luna APRN [Nurse Practitioner, Cardiology] - 06/21/25 10:30 am Aracely Thomas APRN [Primary Care Provider, Family Practice] - 06/26/25 9:00 am Prescriptions/Medication Reconciliation: New furosemide [Lasix] 40 mg tablet 40 mg PO DAILY Qty: 30 0RF Continued clopidogrel [Plavix] 75 mg tablet 75 mg PO DAILY Qty: 90 3RF aspirin 81 mg tablet,delayed release (DR/EC) 81 mg PO DAILY Qty: 100 10RF (DME) nebulizers Misc See Rx Instructions .MEDSUPPLY Qty: 1 0RF Rx Instructions: As directed (DME) nebulizer accessories Kit See Rx Instructions .MEDSUPPLY Qty: 1 0RF Rx Instructions: As directed cholecalciferol (vitamin D3) 25 mcg (1,000 unit) capsule 25 mcg PO DAILY (DME) OneTouch Verio test strips Strip See Rx Instructions .Route Qty: 50 11RF Rx Instructions: As directed citalopram 10 mg tablet 5 mg PO BID Qty: 30 5RF rosuvastatin 5 mg tablet 5 mg PO HS Qty: 90 1RF metformin 500 mg tablet extended release 24 hr 500 mg PO BID Qty: 60 2RF Patient Comments: TAKE 2 TABLETS BY MOUTH ONCE DAILY. insulin glargine [Lantus U-100 Insulin] 100 unit/mL solution 10 unit SQ HS metoprolol tartrate 50 mg tablet 25 mg PO BID irbesartan 300 mg Tablet 300 mg PO DAILY betamethasone dipropionate 0.05 % cream 1 applic topical BIDP PRN (Reason: skin irritation) pantoprazole 40 mg Tablet,Delayed Release (Dr/Ec) 40 mg PO HS 30 Days Qty: 30 0RF ipratropium-albuterol 0.5 mg-3 mg(2.5 mg base)/3 mL Solution For Nebulization 3 ml inhalation Q6RT 30 Days Qty: 90 0RF albuterol sulfate [Ventolin HFA] 90 mcg/actuation HFA aerosol inhaler 2 puff inhalation Q6H PRN (Reason: Shortness of breath) 30 Days Qty: 0 0RF Other Ambulatory Orders: Home Medical Equipment (Routine) Location: None Selected Ordered By: Hong Stewart Problem Reconciliation Problems Reviewed?: Yes Patient Discharge Instructions ACTIVITY: Continue current activity DIET: continue same diet Patient Instructions: Acute Coronary Syndrome, DI for Heart Failure, Stop Light Heart Failure Print Language: Czech Providers Primary Care Provider: Aracely Thomas Admit Provider: Hong Stewart Attending Provider: Hong Stewart
--- NOTE | 2025-06-14 14:25 | CARE MANAGER ---
Addendum entered by Flor Sy RN 06/14/25 14:27: Kaylie Coreas sent resumption order to [facility]. Addendum entered by Flor Sy RN 06/14/25 14:26: Patient requests DME from [facility]. Original Note: Patient will require a wheelchair due to a mobility issue that cannot be corrected with a cane or walker. She is able to self-propel, but needs manual wheelchair for use inside the home to complete ADLs. Patient also will require bedside commode due to not being able to get to toilet facilities due to mobility impairment.
[2025-06-14 16:56] LABS: POC Glucose,Bedside 193 gm/dL (70-110)
--- NOTE | 2025-06-14 23:40 | ECG_ITS ---
APPROVED REPORT Exam: Resting ECG HR:72 bpm ECG Measurements Heart Rate 72 AXES SD 141 P 67 QRSd 78 QRS 42 QT 385 T 72 QTc 410 Conclusion SINUS RHYTHM NONSPECIFIC T-WAVE ABNORMALITY NO STEMI Electronically signed by : MORE KAPLAN, 06/14/2025 07:07:48
--- NOTE | 2025-06-15 10:34 | SW/DCPLANNER ---
Spoke with patient on the phone. Patient stated that she is doing good. Patient stated that she is aware of her upcoming appointments. Patient stated that she was able to get her medicine from clinic pharmacy. Patient stated that she has no concerns or questions at this time. Jean Coreas
== END 2025-06-14 15:25 | disposition home health service (06) ==
LOC: ER 06-14 01:16 → ICU 06-14 13:28
PROVIDERS: Internal Medicine; Admitting Provider Internal Medicine Adolescent Medicine; Emergency Provider Emergency Medicine; PCP Nurse Practitioner; Visit Provider Internal Medicine Adolescent Medicine
DX: I16.1 Hypertensive emergency (principal); I11.0 Hypertensive heart disease with heart failure; I50.31 Acute diastolic (congestive) heart failure; I21.A1 Myocardial infarction type 2; I77.4 Celiac artery compression syndrome; E11.9 Type 2 diabetes mellitus without complications; I25.10 Atherosclerotic heart disease of native coronary artery without angina pectoris; J44.9 Chronic obstructive pulmonary disease, unspecified; E27.8 Other specified disorders of adrenal gland; E78.2 Mixed hyperlipidemia; I65.23 Occlusion and stenosis of bilateral carotid arteries; F17.210 Nicotine dependence, cigarettes, uncomplicated; R09.02 Hypoxemia; Z96.642 Presence of left artificial hip joint; Z95.5 Presence of coronary angioplasty implant and graft; Z88.0 Allergy status to penicillin; Z88.1 Allergy status to other antibiotic agents; Z88.8 Allergy status to other drugs, medicaments and biological substances; Z79.4 Long term (current) use of insulin; Z79.82 Long term (current) use of aspirin; Z79.02 Long term (current) use of antithrombotics/antiplatelets; Z79.84 Long term (current) use of oral hypoglycemic drugs; Z79.899 Other long term (current) drug therapy; M47.816 Spondylosis without myelopathy or radiculopathy, lumbar region; Z90.49 Acquired absence of other specified parts of digestive tract; J90 Pleural effusion, not elsewhere classified; Z82.49 Family history of ischemic heart disease and other diseases of the circulatory system
CPT/HCPCS: 36415; 71275; 80048; 80053; 82803; 82962; 83880; 84484; 85025; 85610; 85730; 87081; 93005; 93308; 94640; 97110; 97162; 97166; 99285; G0378; J1450; J1650; J1938; J2405; Q9967

== ENCOUNTER 2025-06-29 17:43 | Emergency (ER) | payer MEDICARE, MEDICAID, SELFPAY ==
--- OUTSIDE RECORDS SUMMARY | 2025-05-29 17:44 | XMS_ITS | Encounter Summary ---
Author Organization [place] [address] Care Team Providers Care Mines Inspector Name Role Phone Unavailable Primary Care Provider Unavailabl e Reason for Visit * Auth/Cert/Inpt Specialty Diagnoses / Procedures Referred By Francisco J walter Referred To Contact Diagnoses Fracture Referral ID Status Reason Start Date Expiration Date Visits Re quested Visits Authorized [id number] 1 1 Encounter Details Date Type Department Care Team (Latest Contact Info) Description 05/29/2025 5:44 PM EDT - 06/12/2025 11:24 AM EDT Hospital Encounter [facility] [address] [place] [id number] Hugh Zamarripa MD [address] [place] [address] 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 Patient admitted to [facility] for detention and rehab, noted in hospital to have [...] Fractured hip, left, closed, initial encounter ([facility]) Condition at Discharge: stable Disposition: Home Discharge [...] Your Medications These medications were sent to [id number] [place] [address] - [address] [facility] [phone] [address] [facility] [address] cyanocobalamin 1,000 mcg/mL Soln insulin glargine U-100 [...] melatonin 5 mg Oral TabletIndications :Resides in detention facility Take 1 Tablet by mouth nightly [...] (FLORASTOR) 250 mg Oral CapsuleIndication s:Resides in detention facility Take 1 Capsule by mouth 2 times daily. 60 Capsule 06/12/2025 documented as of this encounter Ordered Prescriptions Prescription Sig Dispense Quantity Refills Last Filled Start Date End Date cyanocobalamin 1,000 mcg/mL Inj SolutionIndication s:Other fatigue Inject 1 mL into the muscle every 30 days. 1 mL 06/12/2025 Saccharomyces boulardii (FLORASTOR) 250 mg Oral CapsuleIndications :Resides in detention facility Take 1 Capsule by mouth 2 times daily. 60 Capsule 06/12/2025 melatonin 5 mg Oral TabletIndications: Resides in detention facility Take 1 Tablet by mouth nightly [...] Means Destination Comment s Home or Self Retirement documented in this encounter Progress Notes * Amie Weller, PT - 06/12/2025 11:24 AM EDT 06/12/25 1629 [facility] PT Subjective Note Type Discharge Mobility - Actual Discharge (Therapies) Sit to stand 4-Supv Chair/Znz-yl-dkcak transfer 4-Supv Walk 10 Feet 4-Supv Walk [...] Kylah. Kylah called and spoke with pt. TOMATO GRADER notified and aware. Pt up in the [...] a pneumonia prior to being admitted here. TOMATO GRADER notified with orders for CXR and labs. 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 Adrenal adenoma, [...] Essential hypertension ?? 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 Vital signs are normal. No fever. Output: [...] - 06/09/2025 1:07 PM EDT 06/09/[address] [facility] OT Subjective Note Type Treatment/Progress [...] placement, RW placement, and sequencing.) Additional Comments NUCLEAR POWER REACTOR OPERATOR present during session due to agitation/confusion for [...] to sit on L arm rest of [facility] over commode and chair [...] progress in skilled care at this time. halfway placement or caregiver assistance may be helpful. [...] bed 88-Not attempted Sit to stand 4-Supv Chair/Yqs-yo-saynm transfer 4-Supv Toilet transfer 88-Not attempted Tub/Shower [...] patient need. Time In / Time Out [id number] [facility] Actual Physical Therapy Minutes [facility] PT Ind Therapy Min 49 [...] Essential hypertension ?? 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 Adrenal adenoma, [...] Essential hypertension ?? 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 OT Subjective Note Type Treatment/Progress [...] pt that she needed to move to [facility] for new perspective and for mental/emotional [...] You will have to go to a care home because I can't do this at home. [...] [facility], etc. Pt continued to state, They will laugh at me. Pt educated that no one is present in [facility] except pt/dtr/staff. Assessment Progress Slow progress, [...] of bed 4-Supv Sit to stand 4-Supv Chair/Eph-vx-bnqvf transfer 4-Supv Toilet transfer 88-Not attempted Tub/Shower [...] this time. Time In / Time Out [id number] [facility] Actual Physical Therapy Minutes [facility] PT [...] role.) (06/02/25 1643) Dressing UE Set up ([facility] gown and donned pullover shirt.) (06/01/25 1502) Dressing LE Contact guard, With verbal cues, Pull up over hips, Thread LLE into underwear, Thread RLE into underwear, Thread LLE into pants, Thread RLE into pants, Don/doff L sock, Don/doff R sock (Pt educated on use of e/m engineer/sock aid for LB dressing. Pt doffed/donned socks with CGA and MAX verbal cues for technique. CGA and MOD verbal cues to don pants with e/m engineer. MAX cues to hold RW at all [...] hip. ) (06/06/251239) Dressing UE Set up ([facility] gown and donned pullover shirt. Declined bra) (06/06/251239) Dressing LE Contact guard, With verbal cues, Don/doff L shoe, Don/doff R shoe, Pull up over hips, Thread RLE into pants, Thread LLE into pants, Don/doff L sock, Don/doff R sock (Pt able to use e/m engineer/sock aid for LB dressing with MOD cues and CGA. Dtr present to see use of e/m engineer. Pt stated, Well can't you pull my [...] time. Equipment Recommended hand held shower head, e/m engineer, sock aid, long handled sponge, grab bars. [...] alarm activated Additional Comments Call light within e/m engineer. Pt asked OT to put items on [...] Fractured hip, left, closed, initial encounter ([facility]) [S72.002A] Upon assessment, pt with the following [...] wound healing. Orders updated in [facility]. Primary nurse updated. Will continue to follow [...] Essential hypertension ?? 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 Adrenal adenoma, [...] Essential hypertension ?? 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 Adrenal adenoma, [...] (HCC) Essential hypertension Coronary artery disease involving [place] coronary artery of angoon heart without angina pectoris Adrenal adenoma, left [...] weight 135 lb 12.9 oz (61.6 kg), [id number]%. Vital signs are normal. No fever. Output: [...] hip. ) UE Dressing Assistance Set up ([facility] gown and donned pullover shirt. Declined bra) LE Dressing Assistance Contact guard;With verbal cues;Don/doff L shoe;Don/doff R shoe;Pull up over hips;Thread RLE into pants;Thread LLE into pants;Don/doff L sock;Don/doff R sock (Pt able to use e/m engineer/sock aid for LB dressing with MOD cues and CGA. Dtr present to see use of e/m engineer. Pt stated, Well can't you pull my [...] continue skilled, HHPT at discharge. Equip recommendations e/m engineer, sock aid, long handled sponge D/c date [...] thin is recommended and no further acute MOBILITY ENGINEER dysphagia intervention is warranted at this time. [...] liquids Assistance/Supervision: Independent Resident/caregiver education Alisha Castillo CCC-MOBILITY ENGINEER Care Conference held this date with resident [...] be faxed same date. Resident agreeable to [facility] ([facility]) services at discharge. Referral sent to [facility] and orders placed on chart. Jeannette [...] recommended. Time In / Time Out 0957/1012 [facility] Actual Physical Therapy Minutes [facility] [...] for fear of hip pain increasing.) (06/05/25 5019) Other Goal Status: Patient is progressing towards [...] Essential hypertension ?? 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 Adrenal adenoma, [...] Essential hypertension ?? 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 OT Subjective Note Type Treatment/Progress [...] SANTOS - 06/05/2025 4:14 PM EDT contacted [facility] at for Dr. Ortega. Patient has a follow up apt with Dr. Ortega on 06/12. Dr. Wilkerson office staff said that if the patient will not be discharged from [facility] by then, the staff nurse here at [facility] would need to remove the everton and [...] not working. Pt doesn't want to take [place], per pt [place] makes her confused. 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 -No chest pain 06/03 -Continue ASA, statin, BB Adrenal adenoma, left -Stable Left renal mass -Noted patient refused further workup/imaging at this time Left lower lobe pulmonary nodule -Repeat CT 6-12 months outpatient D/w RN Dispo: Skilled Active Hospital Problems Diagnosis *Fractured hip, left, closed, initial encounter ([facility]) Type 2 diabetes mellitus without complication, without long-term current use of insulin ([facility]) Essential hypertension 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 Activity area accessed and [...] discharge Time In / Time Out 1520/1533 [facility] Actual Physical Therapy Minutes [facility] PT Ind Therapy Min (!) 13 Katya Ott PT * Alex Mayberry, PT - 06/02/2025 1:50 PM EDT 06/02/[address] [facility] PT Subjective Note Type Follow Up Treatment Attempt Patient Room/Unit 106 Therapy delay reason Patient declined * Katya Ott, PT - 06/02/2025 1:07 PM EDT 06/02/25 1306 PT Subjective Note Type Follow Up Treatment Attempt Patient Room/Unit 106 Others Present/Assisting daughter Therapy delay reason Patient eating Katya Ott PT * Alex Mayberry, PT - 06/02/2025 11:37 AM EDT 06/02/[address] 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 * Cleso Walker, OT - 06/01/2025 3:47 PM EDT [...] ADL Interventions UE Dressing Assistance Set up ([facility] gown and donned pullover shirt.) LE Dressing Assistance Contact guard;With verbal cues;Pull up over hips;Thread LLE into underwear;Thread RLE into underwear;Thread LLE into pants;Thread RLE into pants;Don/doff L sock;Don/doff R sock (Pt educated on use of e/m engineer/sock aid for LB dressing. Pt doffed/donned socks with CGA and MAX verbal cues for technique. CGA and MOD verbal cues to don pants with e/m engineer. MAX cues to hold RW at all [...] RD,LD - 06/01/2025 2:[address] [facility] Nutrition Initial Assessment Evidence Supported Malnutrition Diagnosis: No malnutrition identified Nutrition Problem/Diagnosis: Nutrition Diagnosis Problem 1: Increased nutrient needs (specify) (energy and amino acids) Calories (amino acids) related to increased demand for energy/nutrients, anticipated change in physical demands as evidenced by wounds, increased estimated needs. Status: New nutrition diagnosis Nutrition Prescription: Kcals: [phone] K Jacinto Needs Based On: Kcal/kg - [...] Fractured hip, left, closed, initial encounter ([facility]) [S72.002A] Reason For Assessment: Skin integrity protocol, [...] supplement 1 'box' Oral TID with Meals PRABAHKAR powder oral supplement 1 Packet Oral BID [...] Occurrence: 1 Stool Appearance: (!) Type 6 [place] Stool Chart Stool Color: Brown, Yellow Stool [...] kidney mass on the left.Patient sent to [facility] for skilled rehab. * Silvia Diaz, [...] discharge Time In / Time Out 1013/1027 [facility] Actual Physical Therapy Minutes LT [...] status;Chair/personal alarm activated Additional Comments RN and NUCLEAR POWER REACTOR OPERATOR present at end of session assess glucose [...] recommended. Time In / Time Out 15:55-16:41 [facility] Actual Occupational Therapy Minutes [facility]TC [...] she thinks she is staying in a holiness somewhere, reoriented to both time and place, also pulled stat lock for starr off, encouraged patient keep hands away from cath as it could cause infection or trama, encouraged to use call light for needs and assistance. Will continue to monitor. * Stephany Lopez LPN - 05/30/2025 11:14 PM EDT Up to [facility] with walker, gait belt [...] at discharge Time In / Time Out [phone] [facility] Actual Physical Therapy Minutes LTC [...] like standing up right now. Others Present/Assisting Mary-tissue technician Information Evaluation to serve as discharge summary [...] left. Clinical Course Patient was admitted to [facility] and had LLE hemiarthroplasty 05/26/25. Trasnferred [...] living in basement of her home at [facility]. Pt has decreased BUE strength, decreased independence [...] training in prep to return home to [facility]. Goals Patient and/or Family Goal to get [...] OT Weekly Progress Note Due Date 06/07/25 [facility] Actual Occupational Therapy Minutes LTC OT Evaluation Minutes 15 [facility] Individual Therapy Minutes 29 * [...] left. Clinical Course Patient was admitted to [facility] and had LLE hemiarthroplasty 05/26/25. Trasnferred [...] mobility to encourage movement/ambulation to<>from restroom by NUCLEAR POWER REACTOR OPERATOR.) UE Assessment LUE Assessment WFL RUE Assessment [...] of bed 2-Substantial Sit to stand 2-Substantial Chair/Zwu-if-xhtye transfer 2-Substantial Toilet transfer 2-Substantial (BS) Walk 10 Feet 88-Not attempted Walk 50 feet with two turns 88-Not attempted Walk 150 feet 88-Not attempted Walking 10 Feet On Uneven Surfaces 88-Not attempted 1 Step (Curb) 88-Not attempted 4 Steps 88-Not attempted 12 Steps 88-Not attempted Picking Up Object 88-Not attempted Does the resident use a wheelchair/scooter? N1-o Patient Insurance Does Patient Have [employer] Insurance? no Bed Mobility Supine to Sit [...] After several attempts demonstrated improvement. Sat at [facility]. Then Katya PT assisted with NUCLEAR POWER REACTOR OPERATOR [facility]. Gait Gait Not performed Stair Management [...] based upon hospital discharge instructions received from [facility]. Per Dr. Zamarripa, hold tonight's dose [...] mass on the left. Patient sent to [facility] for skilled rehab. 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 * RT Oxygen Plan of Care Note [...] * Plan of Care - Alisha Castillo CCC-MOBILITY ENGINEER - 06/06/2025 4:27 PM EDT Clinical Swallow [...] mass on the left. Patient sent to [facility] for skilled rehab. MOBILITY ENGINEER consulted for swallow evaluation as pt reported [...] thin is recommended and no further acute MOBILITY ENGINEER dysphagia intervention is warranted at this time. [...] liquids Assistance/Supervision: Independent Pt/caregiver education No further MOBILITY ENGINEER needs at this time 06/06/25 1239 Clinical [...] Goal none voiced Patient/Family Education Completed Yes MOBILITY ENGINEER Recommendation Home with prior support This note [...] reported she previously had home O2 with [facility] [place], and when no longer needed, was returned to [facility]. She lives with daughter and plans to return at discharge. There are 7 steps into the home with handrails. She was independent in ADL's prior to fall and has a 2WW. Pharmacy is [facility]. They are agreeable to [facility] at discharge as they had them in [...] - 100 mg/dL 06/12/2025 8:14 AM EDT [facility] Sample Type Capillary 06/12/2025 8:14 AM EDT [facility] Patient Status Non-Critical Patient 06/12/2025 8:14 AM EDT [facility] Blood BLOOD SPECIMEN / Unknown 06/12/2025 8:13 AM EDT 06/12/2025 8:14 AM EDT us Hugh Zamarripa MD POINT OF CARE TEST ORDER PEDRO LUIS Final Result Performing Organization Address City/[facility]/ZIP Co de Phone Number [facility] [address] [place] [address] * MAGNESIUM LEVEL (06/12/2025 5:33 AM EDT) [facility] Magnesium 1.7 1.6 - 2.4 mg/dL 06/12/2025 5:55 AM EDT [facility] Blood VENOUS BLOOD / Unknown Venipuncture / Unknown 06/12/2025 5:33 AM EDT 06/12/2025 5:33 AM EDT Jennifer Fontana APRN CHEMISTRY ORDERABLES Fin al Result Performing Organization Address City/[facility]/ZIP Co de Phone Number [facility] [address] [place] [address] * (ABNORMAL) CBC (06/12/2025 5:33 AM EDT) Pathologist [facility] WBC 7.9 3.7 - 10.3 x10(3)/mcL 06/12/2025 5:36 AM EDT [facility] RBC 3.76(L) 3.90 - 5.20 x10(6)/mcL 06/12/2025 5:36 AM EDT [facility] Hgb 11.3 11.2 - 15.7 g/dL 06/12/2025 5:36 AM EDT [facility] Hct 35.6 34.0 - 45.0 % 06/12/2025 5:36 AM EDT [facility] MCV 94.7 80.0 - 100.0 fL 06/12/2025 5:36 AM EDT [facility] MCH 30.1 26.0 - 34.0 pg 06/12/2025 5:36 AM EDT [facility] MCHC 31.7 30.7 - 35.5 g/dL 06/12/2025 5:36 AM EDT [facility] RDW 13.0 <=14.9 % 06/12/2025 5:36 AM EDT [facility] Platelet 366 155 - 369 x10(3)/mcL 06/12/2025 5:36 AM EDT [facility] MPV 8.8 8.8 - 12.5 fL 06/12/2025 5:36 AM EDT [facility] Blood VENOUS BLOOD / Unknown Venipuncture / Unknown 06/12/2025 5:33 AM EDT 06/12/2025 5:33 AM EDT Jennifer Fontana APRN HEMATOLOGY ORDERABLES Fi nal Result [facility] [address] [place] [address] * (ABNORMAL) BASIC METABOLIC PANEL (06/12/2025 5:33 AM EDT) Pathologist [facility] Sodium 144 136 - 145 mmol/L 06/12/2025 5:55 AM EDT [facility] Potassium 4.0 3.5 - 5.0 mmol/L 06/12/2025 5:55 AM EDT [facility] Chloride 108(H) 98 - 107 mmol/L 06/12/2025 5:55 AM EDT [facility] Total CO2 27 22 - 29 mmol/L 06/12/2025 5:55 AM EDT [facility] Anion Gap 9 7 - 16 mmol/L 06/12/2025 5:55 AM EDT [facility] Calcium 8.5(L) 8.8 - 10.4 mg/dL 06/12/2025 5:55 AM EDT [facility] Glucose Lvl 137(H) 70 - 99 mg/dL 06/12/2025 5:55 AM EDT [facility] BUN 14 8 - 23 mg/dL 06/12/2025 5:55 AM EDT [facility] Creatinine 0.64 0.51 - 1.30 mg/dL 06/12/2025 5:55 AM EDT [facility] / [facility] eGFR (CKD-EPIcr 2020) 86 >=60 mL/min/1.7 3 m2 06/12/2025 5:55 AM EDT [facility] / [facility] Comment:Estimated GFR was ca lculated using the CKD-EPIcr (2020) equation refit without race. The equation is recommended by the National Kidney Foundation - [place] [employer] Neph[employer] Task Force. Blood VENOUS BLOOD / Unknown Venipuncture / Unknown 06/12/2025 5:33 AM EDT 06/12/2025 5:33 AM EDT us Jennifer Fontana APRN CHEMISTRY ORDERABLES Fin al Result [facility] / [facility] [address] [place] [address] * (ABNORMAL) GLUCOSE METER POC (06/11/2025 8:58 PM EDT) Glucose Meter POC 111(H) 70 - 100 mg/dL 06/11/2025 9:00 PM EDT [facility] Sample Type Capillary 06/11/2025 9:00 PM EDT [facility] Patient Status Non-Critical Patient 06/11/2025 9:00 PM EDT [facility] Blood BLOOD SPECIMEN / Unknown 06/11/2025 8:58 PM EDT 06/11/2025 9:00 PM EDT Hugh Zamarripa MD POINT OF CARE TEST ORDER PEDRO LUIS Final Result Performing Organization Address City/[facility]/ZIP Co de Phone Number [facility] / [facility] [address] [place] [address] * (ABNORMAL) GLUCOSE METER POC (06/11/2025 4:59 PM EDT) Glucose Meter POC 128(H) 70 - 100 mg/dL 06/11/2025 5:00 PM EDT [facility] Sample Type Capillary 06/11/2025 5:00 PM EDT [facility] Patient Status Non-Critical Patient 06/11/2025 5:00 PM EDT [facility] Blood BLOOD SPECIMEN / Unknown 06/11/2025 4:59 PM EDT 06/11/2025 5:00 PM EDT Hugh Zamarripa MD POINT OF CARE TEST ORDER PEDRO LUIS Final Result Performing Organization Address City/[facility] Co de Phone Number [facility] / [facility] [address] [place] [address] * (ABNORMAL) GLUCOSE METER POC (06/11/2025 12:16 PM EDT) Glucose Meter POC 107(H) 70 - 100 mg/dL 06/11/2025 12:18 PM EDT [facility] Sample Type Capillary 06/11/2025 12:18 PM EDT [facility] Patient Status Non-Critical Patient 06/11/2025 12:18 PM EDT [facility] Blood BLOOD SPECIMEN / Unknown 06/11/2025 12:16 PM EDT 06/11/2025 12:18 PM EDT Hugh Zamarripa MD POINT OF CARE TEST ORDER PEDRO LUIS Final Result Performing Organization Address City/[facility]/ZIP Co de Phone Number [facility] / [facility] [address] [place] [address] * (ABNORMAL) GLUCOSE METER POC (06/11/2025 7:59 AM EDT) Glucose Meter POC 127(H) 70 - 100 mg/dL 06/11/2025 8:01 AM EDT [facility] Sample Type Capillary 06/11/2025 8:01 AM EDT [facility] Patient Status Non-Critical Patient 06/11/2025 8:01 AM EDT [facility] Blood BLOOD SPECIMEN / Unknown 06/11/2025 7:59 AM EDT 06/11/2025 8:01 AM EDT Hugh Zamarripa MD POINT OF CARE TEST ORDER PEDRO LUIS Final Result Performing Organization Address [facility] Co de Phone Number [facility] / [facility] [address] [place] [address] * EXTRA LAVENDER (06/11/2025 6:17 AM EDT) Blood VENOUS BLOOD / Unknown Venipuncture / Unknown 06/11/2025 6:17 AM EDT 06/11/2025 9:04 AM EDT Hugh Zamarripa MD HEMATOLOGY ORDERABLES Fi nal Result Performing Organization Address [facility] Co de Phone Number [facility] [address] [place] [address] * REPEAT LACTIC ACID (06/11/2025 6:17 AM EDT) Lactic Acid 1.9 0.5 - 1.9 mmol/L 06/11/2025 6:31 AM EDT [facility] Blood VENOUS BLOOD / Unknown Venipuncture / Unknown 06/11/2025 6:17 AM EDT 06/11/2025 6:17 AM EDT Hugh Zamarripa MD CHEMISTRY ORDERABLES Fin al Result Performing Organization Address City/[facility]/ZIP Co de Phone Number [facility] [address] [place] [address] * MAGNESIUM LEVEL (06/11/2025 6:17 AM EDT) Magnesium 1.6 1.6 - 2.4 mg/dL 06/11/2025 6:56 AM EDT [facility] Blood VENOUS BLOOD / Unknown Venipuncture / Unknown 06/11/2025 6:17 AM EDT 06/11/2025 6:43 AM EDT us Jennifer Fontana APRN CHEMISTRY ORDERABLES Fin al Result [facility] [address] [place] [address] * (ABNORMAL) BASIC METABOLIC PANEL (06/11/2025 6:17 AM EDT) Sodium 145 136 - 145 mmol/L 06/11/2025 6:56 AM EDT [facility] Potassium 3.8 3.5 - 5.0 mmol/L 06/11/2025 6:56 AM T [facility] Chloride 110(H) 98 - 107 mmol/L 06/11/2025 6:56 AM T [facility] Total CO2 24 22 - 29 mmol/L 06/11/2025 6:56 AM T [facility] Anion Gap 11 7 - 16 mmol/L 06/11/2025 6:56 AM T [facility] Calcium 8.2(L) 8.8 - 10.4 mg/dL 06/11/2025 6:56 AM T [facility] Glucose Lvl 128(H) 70 - 99 mg/dL 06/11/2025 6:56 AM T [facility] BUN 14 8 - 23 mg/dL 06/11/2025 6:56 AM T [facility] Creatinine 0.61 0.51 - 1.30 mg/dL 06/11/2025 6:56 AM [facility] eGFR (CKD-EPIcr 2020) 87 >=60 mL/min/1.7 3 m2 06/11/2025 6:56 AM T [facility] Comment:Estimated GFR was ca lculated using the CKD-EPIcr (2020) equation refit without race. The equation is recommended by the National Kidney Foundation - [place] [employer] Neph[employer] Task Force. Blood VENOUS BLOOD / Unknown Venipuncture / Unknown 06/11/2025 6:17 AM EDT 06/11/2025 6:43 AM EDT Jennifer Fontana APRN CHEMISTRY ORDERABLES Fin al Result Performing Organization Address City/[facility] Co de Phone Number [facility] [address] [place] [address] * (ABNORMAL) REPEAT LACTIC ACID (06/10/2025 11:20 PM EDT) Lactic Acid 2.3(H) 0.5 - 1.9 mmol/L 06/10/2025 11:36 PM EDT [facility] Blood VENOUS BLOOD / Unknown Venipuncture / Unknown 06/10/2025 11:20 PM EDT 06/10/2025 11:20 PM EDT Hugh Zamarripa MD CHEMISTRY ORDERABLES Fin al Result Performing Organization Address [facility] de Phone Number [facility] [address] [place] [address] * (ABNORMAL) REPEAT LACTIC ACID (06/10/2025 8:14 PM EDT) Lactic Acid 3.3(H) 0.5 - 1.9 mmol/L 06/10/2025 8:29 PM EDT [facility] Blood VENOUS BLOOD / Unknown Venipuncture / Unknown 06/10/2025 8:14 PM EDT 06/10/2025 8:14 PM EDT Jennifer Fontana APRN CHEMISTRY ORDERABLES Fin al Result Performing Organization Address [facility] Co de Phone Number [facility] [address] [place] [address] * BLOOD CULTURE (NO STAIN) (06/10/2025 5:21 PM EDT) Culture Result No Growth at 120 hours. BLOOD CULTURE (NO STAIN) 06/16/2025 11:00 AM EDT [facility] Blood VENOUS BLOOD / Unknown Venipuncture / Unknown 06/10/2025 5:21 PM EDT 06/10/2025 5:23 PM EDT Jennifer Fontana APRN MICROBIOLOGY - GENERAL O RDERABLES Final Result [facility] [address] [place] [address] , [place] [address] * BLOOD CULTURE (NO STAIN) (06/10/2025 5:21 PM EDT) Culture Result No Growth at 120 hours. BLOOD CULTURE (NO STAIN) 06/16/2025 11:00 AM EDT [facility] Blood VENOUS BLOOD / Unknown Venipuncture / Unknown 06/10/2025 5:21 PM EDT 06/10/2025 5:24 PM EDT Jennifer Fontana APRN MICROBIOLOGY - GENERAL O RDERABLES Final Result Performing Organization Address City/[facility]/ZIP Co de Phone Number [facility] [employer] [address] , [place] [address] * (ABNORMAL) GLUCOSE METER POC (06/10/2025 4:58 PM EDT) Glucose Meter POC 139(H) 70 - 100 mg/dL 06/10/2025 5:00 PM EDT [facility] Sample Type Capillary 06/10/2025 5:00 PM EDT [facility] Patient Status Non-Critical Patient 06/10/2025 5:00 PM EDT [facility] Blood BLOOD SPECIMEN / Unknown 06/10/2025 4:58 PM EDT 06/10/2025 5:00 PM EDT Hugh Zamarripa MD POINT OF CARE TEST ORDER PEDRO LUIS Final Result Performing Organization Address City/[facility] Co de Phone Number [facility] [address] [place] [address] * (ABNORMAL) REPEAT LACTIC ACID (06/10/2025 2:18 PM EDT) Lactic Acid 3.2(H) 0.5 - 1.9 mmol/L 06/10/2025 2:34 PM EDT [facility] Blood VENOUS BLOOD / Unknown Venipuncture / Unknown 06/10/2025 2:18 PM EDT 06/10/2025 2:23 PM EDT Jennifer Fontana APRN CHEMISTRY ORDERABLES Fin al Result Performing Organization Address [facility] de Phone Number [facility] [address] [place] [address] * (ABNORMAL) GLUCOSE METER POC (06/10/2025 11:59 AM EDT) Glucose Meter POC 105(H) 70 - 100 mg/dL 06/10/2025 12:00 PM EDT [facility] Sample Type Capillary 06/10/2025 12:00 PM EDT [facility] Patient Status Non-Critical Patient 06/10/2025 12:00 PM EDT [facility] Blood BLOOD SPECIMEN / Unknown 06/10/2025 11:59 AM EDT 06/10/2025 12:00 PM EDT Hugh Zamarripa MD POINT OF CARE TEST ORDER PEDRO LUIS Final Result Performing Organization Address [facility] Co de Phone Number [facility] [address] [place], [place] [id number] * (ABNORMAL) MAGNESIUM LEVEL (06/10/2025 11:52 AM EDT) Magnesium 1.3(L) 1.6 - 2.4 mg/dL 06/10/2025 1:12 PM EDT [facility] Blood VENOUS BLOOD / Unknown Venipuncture / Unknown 06/10/2025 11:52 AM EDT 06/10/2025 12:00 PM EDT Jennifer Fontana APRN CHEMISTRY ORDERABLES Fin al Result Performing Organization Address [facility] Co de Phone Number [facility] [address] [place] [address] * PROCALCITONIN (06/10/2025 11:52 AM EDT) Procalcitonin 0.08 <=0.49 ng/mL 06/10/2025 7:35 PM EDT [employer] Blood VENOUS BLOOD / Unknown Venipuncture / Unknown 06/10/2025 11:52 AM EDT 06/10/2025 12:00 PM EDT Narrative [facility] - 06/10/2025 7:35 PM EDT Procalcitonin <0.50 [...] ORDERABLES Fin al Result Performing Organization Address [facility] Co de Phone Number [employer] [address] [place] [address] , [place] [address] * (ABNORMAL) LACTIC ACID (06/10/2025 11:52 AM EDT) Pathologist [facility] Lactic Acid 2.1(H) 0.5 - 1.9 mmol/L 06/10/2025 12:13 PM EDT [facility] Blood VENOUS BLOOD / Unknown Venipuncture / Unknown 06/10/2025 11:52 AM EDT 06/10/2025 12:00 PM EDT us Jennifer Fontana [employer] CHEMISTRY ORDERABLES Fin al Result [facility] [address] [place] [address] * (ABNORMAL) CBC (06/10/2025 11:52 AM EDT) WBC 10.5(H) 3.7 - 10.3 x10(3)/mcL 06/10/2025 12:03 PM EDT [facility] RBC 3.93 3.90 - 5.20 x10(6)/mcL 06/10/2025 12:03 PM EDT [facility] Hgb 11.9 11.2 - 15.7 g/dL 06/10/2025 12:03 PM EDT [facility] Hct 36.2 34.0 - 45.0 % 06/10/2025 12:03 PM EDT [facility] MCV 92.1 80.0 - 100.0 fL 06/10/2025 12:03 PM EDT [facility] MCH 30.3 26.0 - 34.0 pg 06/10/2025 12:03 PM EDT [facility] MCHC 32.9 30.7 - 35.5 g/dL 06/10/2025 12:03 PM EDT [facility] RDW 12.7 <=14.9 % 06/10/2025 12:03 PM EDT [facility] Platelet 400(H) 155 - 369 x10(3)/mcL 06/10/2025 12:03 PM EDT [facility] MPV 8.9 8.8 - 12.5 fL 06/10/2025 12:03 PM EDT [facility] Blood VENOUS BLOOD / Unknown Venipuncture / Unknown 06/10/2025 11:52 AM EDT 06/10/2025 12:00 PM EDT us Jennifer Fontana [employer] HEMATOLOGY ORDERABLES Fi nal Result [facility] [address] [place] [address] * (ABNORMAL) BASIC METABOLIC PANEL (06/10/2025 11:52 AM EDT) Sodium 143 136 - 145 mmol/L 06/10/2025 12:16 PM EDT [facility] Potassium 3.2(L) 3.5 - 5.0 mmol/L 06/10/2025 12:16 PM EDT [facility] Chloride 105 98 - 107 mmol/L 06/10/2025 12:16 PM EDT [facility] Total CO2 25 22 - 29 mmol/L 06/10/2025 12:16 PM EDT [facility] Anion Gap 13 7 - 16 mmol/L 06/10/2025 12:16 PM T [facility] Calcium 8.5(L) 8.8 - 10.4 mg/dL 06/10/2025 12:16 PM T [facility] Glucose Lvl 106(H) 70 - 99 mg/dL 06/10/2025 12:16 PM T [facility] BUN 16 8 - 23 mg/dL 06/10/2025 12:16 PM EDT [facility] Creatinine 0.67 0.51 - 1.30 mg/dL 06/10/2025 12:16 PM T [facility] eGFR (CKD-EPIcr 2020) 85 >=60 mL/min/1.7 3 m2 06/10/2025 12:16 PM T [facility] Comment:Estimated GFR was ca lculated using the CKD-EPIcr (2020) equation refit without race. The equation is recommended by the National Kidney Foundation - [place] [employer] Neph[employer] Task Force. Blood VENOUS BLOOD / Unknown Venipuncture / Unknown 06/10/2025 11:52 AM EDT 06/10/2025 12:00 PM EDT us Jennifer Fontana APRN CHEMISTRY ORDERABLES Fin al Result [facility] [address] [place] [address] * XR CHEST AP PORTABLE (06/10/2025 11:38 [...] GLUCOSE METER POC (06/10/2025 8:36 AM EDT) [facility] Glucose Meter POC 126(H) 70 - 100 mg/dL 06/10/2025 8:38 AM EDT [facility] Sample Type Capillary 06/10/2025 8:38 AM EDT [facility] Patient Status Non-Critical Patient 06/10/2025 8:38 AM EDT [facility] Blood BLOOD SPECIMEN / Unknown 06/10/2025 8:36 AM EDT 06/10/2025 8:38 AM EDT Hugh Zamarripa MD POINT OF CARE TEST ORDER PEDRO LUIS Final Result Performing Organization Address City/[facility] Co de Phone Number [facility] [address] [place] [address] * (ABNORMAL) GLUCOSE METER POC (06/09/2025 8:23 PM EDT) Glucose Meter POC 155(H) 70 - 100 mg/dL 06/09/2025 8:24 PM EDT [facility] Sample Type Capillary 06/09/2025 8:24 PM EDT [facility] Patient Status Non-Critical Patient 06/09/2025 8:24 PM EDT [facility] Blood BLOOD SPECIMEN / Unknown 06/09/2025 8:23 PM EDT 06/09/2025 8:24 PM EDT Hugh Zamarripa MD POINT OF CARE TEST ORDER PEDRO LUIS Final Result Performing Organization Address City/[facility]/ZIP Co de Phone Number [facility] [address] [place] [address] * (ABNORMAL) GLUCOSE METER POC (06/09/2025 4:53 PM EDT) Glucose Meter POC 117(H) 70 - 100 mg/dL 06/09/2025 4:54 PM EDT [facility] Sample Type Capillary 06/09/2025 4:54 PM EDT [facility] Patient Status Non-Critical Patient 06/09/2025 4:54 PM EDT [facility] Blood BLOOD SPECIMEN / Unknown 06/09/2025 4:53 PM EDT 06/09/2025 4:54 PM EDT Hugh Zamarripa MD POINT OF CARE TEST ORDER PEDRO LUIS Final Result Performing Organization Address City/[facility] Co de Phone Number [facility] [address] [place] [address] * (ABNORMAL) GLUCOSE METER POC (06/09/2025 11:44 AM EDT) Glucose Meter POC 149(H) 70 - 100 mg/dL 06/09/2025 11:45 AM EDT [facility] Sample Type Capillary 06/09/2025 11:45 AM EDT [facility] Patient Status Non-Critical Patient 06/09/2025 11:45 AM EDT [facility] Blood BLOOD SPECIMEN / Unknown 06/09/2025 11:44 AM EDT 06/09/2025 11:45 AM EDT Hugh Zamarripa MD POINT OF CARE TEST ORDER PEDRO LUIS Final Result Performing Organization Address [facility] de Phone Number [facility] [address] [place] [address] * (ABNORMAL) GLUCOSE METER POC (06/09/2025 7:43 AM EDT) Glucose Meter POC 113(H) 70 - 100 mg/dL 06/09/2025 7:44 AM EDT [facility] Sample Type Capillary 06/09/2025 7:44 AM EDT [facility] Patient Status Non-Critical Patient 06/09/2025 7:44 AM EDT [facility] Blood BLOOD SPECIMEN / Unknown 06/09/2025 7:43 AM EDT 06/09/2025 7:44 AM EDT Hugh Zamarripa MD POINT OF CARE TEST ORDER PEDRO LUIS Final Result Performing Organization Address City/[facility] Co de Phone Number [facility] [address] [place] [address] * (ABNORMAL) GLUCOSE METER POC (06/08/2025 8:01 PM EDT) Glucose Meter POC 151(H) 70 - 100 mg/dL 06/08/2025 8:03 PM EDT [facility] Sample Type Capillary 06/08/2025 8:03 PM EDT [facility] Patient Status Non-Critical Patient 06/08/2025 8:03 PM EDT [facility] Blood BLOOD SPECIMEN / Unknown 06/08/2025 8:01 PM EDT 06/08/2025 8:03 PM EDT Hugh Zamarripa MD POINT OF CARE TEST ORDER PEDR OLUIS Final Result Performing Organization Address City/[facility]/ZIP Co de Phone Number [facility] [address] [place], [place] [id number] * (ABNORMAL) GLUCOSE METER POC (06/08/2025 4:33 PM EDT) Glucose Meter POC 145(H) 70 - 100 mg/dL 06/08/2025 4:35 PM EDT [facility] Sample Type Capillary 06/08/2025 4:35 PM EDT [facility] Patient Status Non-Critical Patient 06/08/2025 4:35 PM EDT [facility] Blood BLOOD SPECIMEN / Unknown 06/08/2025 4:33 PM EDT 06/08/2025 4:35 PM EDT Hugh Zamarripa MD POINT OF CARE TEST ORDER PEDRO LUIS Final Result Performing Organization Address City/[facility]/ZIP Co de Phone Number [facility] [address] [place], [place] [id number] * (ABNORMAL) BASIC METABOLIC PANEL (06/08/2025 4:27 PM EDT) Sodium 143 136 - 145 mmol/L 06/08/2025 4:45 PM EDT [facility] Potassium 4.0 3.5 - 5.0 mmol/L 06/08/2025 4:45 PM EDT [facility] Chloride 103 98 - 107 mmol/L 06/08/2025 4:45 PM EDT [facility] Total CO2 28 22 - 29 mmol/L 06/08/2025 4:45 PM EDT [facility] Anion Gap 12 7 - 16 mmol/L 06/08/2025 4:45 PM EDT [facility] Calcium 8.9 8.8 - 10.4 mg/dL 06/08/2025 4:45 PM EDT [facility] Glucose Lvl 143(H) 70 - 99 mg/dL 06/08/2025 4:45 PM EDT [facility] BUN 14 8 - 23 mg/dL 06/08/2025 4:45 PM EDT [facility] Creatinine 0.75 0.51 - 1.30 mg/dL 06/08/2025 4:45 PM EDT [facility] eGFR (CKD-EPIcr 2020) 78 >=60 mL/min/1.7 3 m2 06/08/2025 4:45 PM EDT [facility] Comment:Estimated GFR was ca lculated using the CKD-EPIcr (2020) equation refit without race. The equation is recommended by the National Kid[employer] - [place] [employer] Neph[employer] Task Force. Blood VENOUS BLOOD / Unknown Venipuncture / Unknown 06/08/2025 4:27 PM EDT 06/08/2025 4:30 PM EDT us Viral Sargent V, DO CHEMISTRY ORDERABLES Final Res ult [facility] [address] [place] [address] * (ABNORMAL) GLUCOSE METER POC (06/08/2025 11:48 AM EDT) Glucose Meter POC 140(H) 70 - 100 mg/dL 06/08/2025 11:50 AM EDT [facility] Sample Type Capillary 06/08/2025 11:50 AM EDT [facility] Patient Status Non-Critical Patient 06/08/2025 11:50 AM EDT [facility] Blood BLOOD SPECIMEN / Unknown 06/08/2025 11:48 AM EDT 06/08/2025 11:50 AM EDT Hugh Zamarripa MD POINT OF CARE TEST ORDER PEDRO LUIS Final Result Performing Organization Address City/[facility] Co de Phone Number [facility] [address] [place] [address] * (ABNORMAL) GLUCOSE METER POC (06/08/2025 8:30 AM EDT) Glucose Meter POC 126(H) 70 - 100 mg/dL 06/08/2025 8:31 AM EDT [facility] Sample Type Capillary 06/08/2025 8:31 AM EDT [facility] Patient Status Non-Critical Patient 06/08/2025 8:31 AM EDT [facility] Blood BLOOD SPECIMEN / Unknown 06/08/2025 8:30 AM EDT 06/08/2025 8:31 AM EDT Hugh Zamarripa MD POINT OF CARE TEST ORDER PEDRO LUIS Final Result Performing Organization Address [facility] de Phone Number [facility] / [facility] [address] [place] [address] * (ABNORMAL) GLUCOSE METER POC (06/07/2025 8:56 PM EDT) Glucose Meter POC 135(H) 70 - 100 mg/dL 06/07/2025 8:57 PM EDT [facility] / [facility] Sample Type Capillary 06/07/2025 8:57 PM EDT [facility] / [facility] Patient Status Non-Critical Patient 06/07/2025 8:57 PM EDT [facility] / [facility] Blood BLOOD SPECIMEN / Unknown 06/07/2025 8:56 PM EDT 06/07/2025 8:57 PM EDT Hugh Zamarripa MD POINT OF CARE TEST ORDER PEDRO LUIS Final Result Performing Organization Address City/[facility]/ZIP Co de Phone Number [facility] [address] [place] [address] * (ABNORMAL) URINE CULTURE (NO STAIN) (06/07/2025 8:48 PM EDT) Culture Positive Growth(A) 06/10/2025 1:16 PM EDT [facility] Culture >100,000 CFU/mL Lactobacillus species SUSCEPTIB ILITY RESULT 06/10/2025 1:16 PM EDT [facility] Comment:No further workup. Culture 4,000 CFU/mL Ashley albicans SUSCEPTIB ILITY RESULT 06/10/2025 1:16 PM EDT [facility] Comment:No further workup. Urine STRUCTURE OF URINARY TRACT PROPER / Unknown 06/07/2025 8:48 PM EDT 06/07/2025 9:08 PM EDT Viral Sargent V, DO MICROBIOLOGY - GENERAL ORDERAB LES Final Result [facility] [address] [facility] , [place] [address] * EXTRA LAUGHLIN URINE CX (06/07/2025 8:48 PM EDT) Urine STRUCTURE OF URINARY TRACT PROPER / Unknown 06/07/2025 8:48 PM EDT 06/07/2025 8:59 PM EDT us Viral Sargent V, DO MICROBIOLOGY - GENERAL ORDERAB LES Final Result Performing Organization Address City/[facility]/ZIP Co de Phone Number [facility] [address] [place] [address] * (ABNORMAL) URINALYSIS REFLEX (06/07/2025 8:48 PM EDT) UA Color Yellow 06/07/2025 9:08 PM EDT [facility] UA Appear Clear Clear 06/07/2025 9:08 PM EDT [facility] UA Glucose Negative Negative mg/dL 06/07/2025 9:08 PM EDT [facility] UA Ketones Negative Negative mg/dL 06/07/2025 9:08 PM EDT [facility] UA Blood Negative Negative 06/07/2025 9:08 PM EDT [facility] UA pH 6.0 5.0 - 8.0 pH 06/07/2025 9:08 PM EDT [facility] UA Protein Trace(A) Negative mg/dL 06/07/2025 9:08 PM EDT [facility] UA Urobilinogen 0.2 <=1 mg/dL 9:08 PM EDT [facility] UA Bili Negative Negative 06/07/2025 9:08 PM EDT [facility] UA Nitrite Negative Negative 06/07/2025 9:08 PM EDT [facility] UA Leuk Est Small(A) Negative 06/07/2025 9:08 PM EDT [facility] UA Spec Grav 1.025 1.001 - 1.035 no units 06/07/2025 9:08 PM EDT [facility] Comment:Reference range tessie d for random specimens only. UA WBC 10(H) 0 - 4 /HPF 06/07/2025 9:08 PM EDT [facility] UA RBC 0 0 - 3 /HPF 06/07/2025 9:08 PM EDT [facility] UA Squam Epi 2+ /LPF 06/07/2025 9:08 PM EDT [facility] UA Mucus 2+ /LPF 06/07/2025 9:08 PM EDT [facility] UA Amorph 1+ /HPF 06/07/2025 9:08 PM EDT [facility] UA Bacteria Trace(A) Negative /HPF 06/07/2025 9:08 PM EDT [facility] Urine STRUCTURE OF URINARY TRACT PROPER / Unknown 06/07/2025 8:48 PM EDT 06/07/2025 8:59 PM EDT us Viral Sargent V, DO URINE ORDERABLES Final Result [facility] [address] [place] [address] * (ABNORMAL) GLUCOSE METER POC (06/07/2025 4:47 PM EDT) Glucose Meter POC 114(H) 70 - 100 mg/dL 06/07/2025 4:48 PM EDT [facility] Sample Type Capillary 06/07/2025 4:48 PM EDT [facility] Patient Status Non-Critical Patient 06/07/2025 4:48 PM EDT [facility] Blood BLOOD SPECIMEN / Unknown 06/07/2025 4:47 PM EDT 06/07/2025 4:48 PM EDT Hugh Zamarripa MD POINT OF CARE TEST ORDER PEDRO LUIS Final Result Performing Organization Address [facility] Co de Phone Number [facility] [address] [place] [address] * (ABNORMAL) GLUCOSE METER POC (06/07/2025 11:49 AM EDT) Glucose Meter POC 207(H) 70 - 100 mg/dL 06/07/2025 11:51 AM EDT [facility] Sample Type Capillary 06/07/2025 11:51 AM EDT [facility] Patient Status Non-Critical Patient 06/07/2025 11:51 AM EDT [facility] Blood BLOOD SPECIMEN / Unknown 06/07/2025 11:49 AM EDT 06/07/2025 11:51 AM EDT Hugh Zamarripa MD POINT OF CARE TEST ORDER PEDRO LUIS Final Result Performing Organization Address [facility] Co de Phone Number [facility] [address] [place] [address] * (ABNORMAL) GLUCOSE METER POC (06/07/2025 7:50 AM EDT) Glucose Meter POC 135(H) 70 - 100 mg/dL 06/07/2025 7:52 AM EDT [facility] Sample Type Capillary 06/07/2025 7:52 AM EDT [facility] Patient Status Non-Critical Patient 06/07/2025 7:52 AM EDT [facility] Blood BLOOD SPECIMEN / Unknown 06/07/2025 7:50 AM EDT 06/07/2025 7:52 AM EDT Hugh Zamarripa MD POINT OF CARE TEST ORDER PEDRO LUIS Final Result [facility] [address] [place] [address] * XR HIP LEFT AP [...] - 10.3 x10(3)/mcL 06/07/2025 5:11 AM EDT [facility] RBC 3.92 3.90 - 5.20 x10(6)/mcL 06/07/2025 5:11 [facility] Hgb 11.8 11.2 - 15.7 g/dL 06/07/2025 5:11 AM [facility] Hct 36.3 34.0 - 45.0 % 06/07/2025 5:11 AM [facility] MCV 92.6 80.0 - 100.0 fL 06/07/2025 5:11 AM [facility] MCH 30.1 26.0 - 34.0 pg 06/07/2025 5:11 AM [facility] MCHC 32.5 30.7 - 35.5 g/dL 06/07/2025 5:11 AM [facility] RDW 12.5 <=14.9 % 06/07/2025 5:11 AM [facility] Platelet 341 155 - 369 x10(3)/mcL 06/07/2025 5:11 AM [facility] MPV 9.0 8.8 - 12.5 fL 06/07/2025 5:11 AM [facility] Neut Percent 79.0 % 06/07/2025 5:11 AM [facility] Comment:Neutrophils equals s egs plus bands Imm Gran% 0.4 % 06/07/2025 5:11 AM [facility] Comment:Automated count of m etamyelocytes, myelocytes and promyelocytes. Lymph Percent 11.7 % 06/07/2025 5:11 AM [facility] [place] Percent 6.9 % 06/07/2025 5:11 AM [facility] Eos Percent 1.5 % 06/07/2025 5:11 AM [facility] Baso Percent 0.5 % 06/07/2025 5:11 AM [facility] Neut # 8.9(H) 1.6 - 6.1 x10(3)/mcL 06/07/2025 5:11 AM [facility] Comment:Neutrophils equals s egs plus bands IMMGRAN# 0.0 0.0 - 0.1 x10(3)/mcL 06/07/2025 5:11 AM EDT [facility] Comment:Automated count of m etamyelocytes, myelocytes and promyelocytes. An absolute IG <0.1 is reported as 0.0. Lymph # 1.3 1.2 - 3.9 x10(3)/mcL 06/07/2025 5:11 AM EDT [facility] [place] # 0.8 0.3 - 0.9 x10(3)/mcL 06/07/2025 5:11 AM EDT [facility] Eos# 0.2 0.0 - 0.5 x10(3)/mcL 06/07/2025 5:11 AM EDT [facility] Baso # 0.1 0.0 - 0.1 x10(3)/mcL 06/07/2025 5:11 AM EDT [facility] Blood VENOUS BLOOD / Unknown Venipuncture / Unknown 06/07/2025 5:09 AM EDT 06/07/2025 5:09 AM EDT us Viral Sargent V, DO HEMATOLOGY ORDERABLES Final Re sult [facility] [address] [id number] * (ABNORMAL) BASIC METABOLIC PANEL (06/07/2025 5:09 AM EDT) Sodium 142 136 - 145 mmol/L 06/07/2025 5:30 AM EDT [facility] Potassium 3.3(L) 3.5 - 5.0 mmol/L 06/07/2025 5:30 AM EDT [facility] Chloride 104 98 - 107 mmol/L 06/07/2025 5:30 AM EDT [facility] Total CO2 28 22 - 29 mmol/L 06/07/2025 5:30 AM EDT [facility] Anion Gap 10 7 - 16 mmol/L 06/07/2025 5:30 AM EDT [facility] Calcium 8.7(L) 8.8 - 10.4 mg/dL 06/07/2025 5:30 AM EDT [facility] Glucose Lvl 143(H) 70 - 99 mg/dL 06/07/2025 5:30 AM EDT [facility] BUN 16 8 - 23 mg/dL 06/07/2025 5:30 AM EDT [facility] Creatinine 0.66 0.51 - 1.30 mg/dL 06/07/2025 5:30 AM EDT [facility] eGFR (CKD-EPIcr 2020) 85 >=60 mL/min/1.7 3 m2 06/07/2025 5:30 AM EDT [facility] Comment:Estimated GFR was ca lculated using the CKD-EPIcr (2020) equation refit without race. The equation is recommended by the [employer] Kid[employer] - [place] [employer] Neph[employer] Task Force. Blood VENOUS BLOOD / Unknown Venipuncture / Unknown 06/07/2025 5:09 AM EDT 06/07/2025 5:09 AM EDT us Geo Sargentdevorah Merchant DO CHEMISTRY ORDERABLES Final Res ult Performing Organization Address [facility] Co de Phone Number [facility] [address] [place] [address] * (ABNORMAL) GLUCOSE METER POC (06/06/2025 9:21 PM EDT) Glucose Meter POC 126(H) 70 - 100 mg/dL 06/06/2025 9:23 PM EDT [facility] Sample Type Capillary 06/06/2025 9:23 PM EDT [facility] Patient Status Non-Critical Patient 06/06/2025 9:23 PM EDT [facility] Blood BLOOD SPECIMEN / Unknown 06/06/2025 9:21 PM EDT 06/06/2025 9:23 PM EDT us Hugh Zamarripa MD POINT OF CARE TEST ORDER PEDRO LUIS Final Result Performing Organization Address [facility] Co de Phone Number [facility] [address] [place] [address] * (ABNORMAL) GLUCOSE METER POC (06/06/2025 4:50 PM EDT) Glucose Meter POC 161(H) 70 - 100 mg/dL 06/06/2025 4:52 PM EDT [facility] Sample Type Capillary 06/06/2025 4:52 PM EDT [facility] Patient Status Non-Critical Patient 06/06/2025 4:52 PM EDT [facility] Blood BLOOD SPECIMEN / Unknown 06/06/2025 4:50 PM EDT 06/06/2025 4:52 PM EDT Hugh Zamarripa MD POINT OF CARE TEST ORDER PEDRO LUIS Final Result Performing Organization Address City/[facility]/ZIP Co de Phone Number [facility] [address] [place] [address] * (ABNORMAL) GLUCOSE METER POC (06/06/2025 12:37 PM EDT) Glucose Meter POC 137(H) 70 - 100 mg/dL 06/06/2025 12:38 PM EDT [facility] Sample Type Capillary 06/06/2025 12:38 PM EDT [facility] Patient Status Non-Critical Patient 06/06/2025 12:38 PM EDT [facility] Blood BLOOD SPECIMEN / Unknown 06/06/2025 12:37 PM EDT 06/06/2025 12:38 PM EDT Hugh Zamarripa MD POINT OF CARE TEST ORDER PEDRO LUIS Final Result Performing Organization Address City/[facility]/ZIP Co de Phone Number [facility] [address] [place] [address] * (ABNORMAL) GLUCOSE METER POC (06/06/2025 7:53 AM EDT) Glucose Meter POC 105(H) 70 - 100 mg/dL 06/06/2025 7:54 AM EDT [facility] Sample Type Capillary 06/06/2025 7:54 AM EDT [facility] Patient Status Non-Critical Patient 06/06/2025 7:54 AM EDT [facility] Blood BLOOD SPECIMEN / Unknown 06/06/2025 7:53 AM EDT 06/06/2025 7:54 AM EDT Hugh Zamarripa MD POINT OF CARE TEST ORDER PEDRO LUIS Final Result [facility] [address] [place] [address] * (ABNORMAL) BASIC METABOLIC PANEL (06/06/2025 5:26 AM EDT) Sodium 145 136 - 145 mmol/L 06/06/2025 5:48 AM EDT [facility] Potassium 3.1(L) 3.5 - 5.0 mmol/L 06/06/2025 5:48 AM EDT [facility] Chloride 104 98 - 107 mmol/L 06/06/2025 5:48 AM EDT [facility] Total CO2 29 22 - 29 mmol/L 06/06/2025 5:48 AM EDT [facility] Anion Gap 12 7 - 16 mmol/L 06/06/2025 5:48 AM EDT [facility] Calcium 8.8 8.8 - 10.4 mg/dL 06/06/2025 5:48 AM EDT [facility] Glucose Lvl 132(H) 70 - 99 mg/dL 06/06/2025 5:48 AM EDT [facility] BUN 18 8 - 23 mg/dL 06/06/2025 5:48 AM EDT [facility] Creatinine 0.67 0.51 - 1.30 mg/dL 06/06/2025 5:48 AM EDT [facility] eGFR (CKD-EPIcr 2020) 86 >=60 mL/min/1.7 3 m2 06/06/2025 5:48 AM EDT [facility] Comment:Estimated GFR was ca lculated using the CKD-EPIcr (2020) equation refit without race. The equation is recommended by the [employer] Kidney [employer] - [place] [employer] Neph[employer] Task Force. Blood VENOUS BLOOD / Unknown Venipuncture / Unknown 06/06/2025 5:26 AM EDT 06/06/2025 5:26 AM EDT us Viral Sargent V, DO CHEMISTRY ORDERABLES Final Res ult [facility] [address] [place] [address] * (ABNORMAL) CBC WITH DIFF (06/06/2025 5:26 AM EDT) WBC 11.9(H) 3.7 - 10.3 x10(3)/mcL 06/06/2025 5:30 AM EDT [facility] RBC 3.98 3.90 - 5.20 x10(6)/mcL 06/06/2025 5:30 AM EDT [facility] Hgb 12.0 11.2 - 15.7 g/dL 06/06/2025 5:30 AM EDT [facility] Hct 37.1 34.0 - 45.0 % 06/06/2025 5:30 AM EDT [facility] MCV 93.2 80.0 - 100.0 fL 06/06/2025 5:30 AM EDT [facility] MCH 30.2 26.0 - 34.0 pg 06/06/2025 5:30 AM EDT [facility] MCHC 32.3 30.7 - 35.5 g/dL 06/06/2025 5:30 AM EDT [facility] RDW 12.5 <=14.9 % 06/06/2025 5:30 AM EDT [facility] Platelet 345 155 - 369 x10(3)/mcL 06/06/2025 5:30 AM EDT [facility] MPV 9.1 8.8 - 12.5 fL 06/06/2025 5:30 AM EDT [facility] Neut Percent 76.0 % 06/06/2025 5:30 AM EDT [facility] Comment:Neutrophils equals s egs plus bands Imm Gran% 0.4 % 06/06/2025 5:30 AM EDT [facility] Comment:Automated count of m etamyelocytes, myelocytes and promyelocytes. Lymph Percent 14.7 % 06/06/2025 5:30 AM EDT [facility] [place] Percent 6.8 % 06/06/2025 5:30 AM EDT [facility] Eos Percent 1.8 % 06/06/2025 5:30 AM EDT [facility] Baso Percent 0.3 % 06/06/2025 5:30 AM EDT [facility] Neut # 9.1(H) 1.6 - 6.1 x10(3)/[facility] 06/06/2025 5:30 AM EDT [facility] Comment:Neutrophils equals s egs plus bands IMMGRAN# 0.1 0.0 - 0.1 x10(3)/[facility] 06/06/2025 5:30 AM EDT [facility] Comment:Automated count of m etamyelocytes, myelocytes and promyelocytes. An absolute IG <0.1 is reported as 0.0. Lymph # 1.8 1.2 - 3.9 x10(3)/[facility] 06/06/2025 5:30 AM EDT [facility] [place] # 0.8 0.3 - 0.9 x10(3)/[facility] 06/06/2025 5:30 AM EDT [facility] Eos# 0.2 0.0 - 0.5 x10(3)/[facility] 06/06/2025 5:30 AM EDT [facility] Baso # 0.0 0.0 - 0.1 x10(3)/[facility] 06/06/2025 5:30 AM EDT [facility] Blood VENOUS BLOOD / Unknown Venipuncture / Unknown 06/06/2025 5:26 AM EDT 06/06/2025 5:26 AM EDT us Viral Sargent V, DO HEMATOLOGY ORDERABLES Final Re sult [facility] [address] [place] [address] * (ABNORMAL) GLUCOSE METER POC (06/05/2025 8:23 PM EDT) [facility] Glucose Meter POC 184(H) 70 - 100 mg/dL 06/05/2025 8:25 PM EDT [facility] Sample Type Capillary 06/05/2025 8:25 PM EDT [facility] Patient Status Non-Critical Patient 06/05/2025 8:25 PM EDT [facility] Blood BLOOD SPECIMEN / Unknown 06/05/2025 8:23 PM EDT 06/05/2025 8:25 PM EDT Hugh Zamarripa MD POINT OF CARE TEST ORDER PEDRO LUIS Final Result Performing Organization Address City/[facility]/ZIP Co de Phone Number [facility] [address] [place] [address] * (ABNORMAL) GLUCOSE METER POC (06/05/2025 5:14 PM EDT) Glucose Meter POC 151(H) 70 - 100 mg/dL 06/05/2025 5:15 PM EDT [facility] Sample Type Capillary 06/05/2025 5:15 PM EDT [facility] Patient Status Non-Critical Patient 06/05/2025 5:15 PM EDT [facility] Blood BLOOD SPECIMEN / Unknown 06/05/2025 5:14 PM EDT 06/05/2025 5:15 PM EDT Hugh Zamarripa MD POINT OF CARE TEST ORDER PEDRO LUIS Final Result Performing Organization Address City/[facility] Co de Phone Number [facility] [address] [place] [address] * (ABNORMAL) GLUCOSE METER POC (06/05/2025 12:00 PM EDT) Glucose Meter POC 132(H) 70 - 100 mg/dL 06/05/2025 12:01 PM EDT [facility] Sample Type Capillary 06/05/2025 12:01 PM EDT [facility] Patient Status Non-Critical Patient 06/05/2025 12:01 PM EDT [facility] Blood BLOOD SPECIMEN / Unknown 06/05/2025 12:00 PM EDT 06/05/2025 12:01 PM EDT Hugh Zamarripa MD POINT OF CARE TEST ORDER PEDRO LUIS Final Result Performing Organization Address City/[facility] Co de Phone Number [facility] [address] [place] [address] * (ABNORMAL) GLUCOSE METER POC (06/05/2025 7:52 AM EDT) Glucose Meter POC 157(H) 70 - 100 mg/dL 06/05/2025 7:53 AM EDT [facility] Sample Type Capillary 06/05/2025 7:53 AM EDT [facility] Patient Status Non-Critical Patient 06/05/2025 7:53 AM EDT [facility] Blood BLOOD SPECIMEN / Unknown 06/05/2025 7:52 AM EDT 06/05/2025 7:53 AM EDT us Hugh Zamarripa MD POINT OF CARE TEST ORDER PEDRO LUIS Final Result Performing Organization Address [facility] de Phone Number [facility] [address] [place] [address] * (ABNORMAL) GLUCOSE METER POC (06/04/2025 9:05 PM EDT) Glucose Meter POC 165(H) 70 - 100 mg/dL 06/04/2025 9:07 PM EDT [facility] Sample Type Capillary 06/04/2025 9:07 PM EDT [facility] Patient Status Non-Critical Patient 06/04/2025 9:07 PM EDT [facility] Blood BLOOD SPECIMEN / Unknown 06/04/2025 9:05 PM EDT 06/04/2025 9:07 PM EDT Hugh Zamarripa MD POINT OF CARE TEST ORDER PEDRO LUIS Final Result Performing Organization Address [facility] Co de Phone Number [facility] [address] [place] [address] * (ABNORMAL) GLUCOSE METER POC (06/04/2025 5:06 PM EDT) Glucose Meter POC 124(H) 70 - 100 mg/dL 06/04/2025 5:08 PM EDT [facility] Sample Type Capillary 06/04/2025 5:08 PM EDT [facility] Patient Status Non-Critical Patient 06/04/2025 5:08 PM EDT [facility] Blood BLOOD SPECIMEN / Unknown 06/04/2025 5:06 PM EDT 06/04/2025 5:08 PM EDT Hugh Zamarripa MD POINT OF CARE TEST ORDER PEDRO LUIS Final Result Performing Organization Address City/[facility]/ZIP Co de Phone Number [facility] [address] [place] [address] * (ABNORMAL) GLUCOSE METER POC (06/04/2025 12:01 PM EDT) Glucose Meter POC 199(H) 70 - 100 mg/dL 06/04/2025 12:02 PM EDT [facility] Sample Type Capillary 06/04/2025 12:02 PM EDT [facility] Patient Status Non-Critical Patient 06/04/2025 12:02 PM EDT [facility] Blood BLOOD SPECIMEN / Unknown 06/04/2025 12:01 PM EDT 06/04/2025 12:02 PM EDT Hugh Zamarripa MD POINT OF CARE TEST ORDER PEDRO LUIS Final Result Performing Organization Address City/[facility]/ZIP Co de Phone Number [facility] [address] [place] [address] * (ABNORMAL) GLUCOSE METER POC (06/04/2025 8:52 AM EDT) Glucose Meter POC 164(H) 70 - 100 mg/dL 06/04/2025 8:54 AM EDT [facility] Sample Type Capillary 06/04/2025 8:54 AM EDT [facility] Patient Status Non-Critical Patient 06/04/2025 8:54 AM EDT [facility] Blood BLOOD SPECIMEN / Unknown 06/04/2025 8:52 AM EDT 06/04/2025 8:54 AM EDT Hugh Zamarripa MD POINT OF CARE TEST ORDER PEDRO LUIS Final Result Performing Organization Address City/[facility]/ZIP Co de Phone Number [facility] [address] [place] [address] * (ABNORMAL) GLUCOSE METER POC (06/03/2025 8:26 PM EDT) Glucose Meter POC 236(H) 70 - 100 mg/dL 06/03/2025 8:28 PM EDT [facility] Sample Type Capillary 06/03/2025 8:28 PM EDT [facility] Patient Status Non-Critical Patient 06/03/2025 8:28 PM EDT [facility] Blood BLOOD SPECIMEN / Unknown 06/03/2025 8:26 PM EDT 06/03/2025 8:28 PM EDT Hugh Zamarripa MD POINT OF CARE TEST ORDER PEDRO LUIS Final Result Performing Organization Address [facility] de Phone Number [facility] [address] [place] [address] * (ABNORMAL) GLUCOSE METER POC (06/03/2025 4:49 PM EDT) Glucose Meter POC 158(H) 70 - 100 mg/dL 06/03/2025 4:50 PM EDT [facility] Sample Type Capillary 06/03/2025 4:50 PM EDT [facility] Patient Status Non-Critical Patient 06/03/2025 4:50 PM EDT [facility] Blood BLOOD SPECIMEN / Unknown 06/03/2025 4:49 PM EDT 06/03/2025 4:50 PM EDT Hugh Zamarripa MD POINT OF CARE TEST ORDER PEDRO LUIS Final Result Performing Organization Address City/[facility]/ZIP Co de Phone Number [facility] [address] [place] [address] * (ABNORMAL) GLUCOSE METER POC (06/03/2025 11:16 AM EDT) Glucose Meter POC 157(H) 70 - 100 mg/dL 06/03/2025 11:18 AM EDT [facility] Sample Type Capillary 06/03/2025 11:18 AM EDT [facility] Patient Status Non-Critical Patient 06/03/2025 11:18 AM EDT [facility] Blood BLOOD SPECIMEN / Unknown 06/03/2025 11:16 AM EDT 06/03/2025 11:18 AM EDT Hugh Zamarripa MD POINT OF CARE TEST ORDER PEDRO LUIS Final Result Performing Organization Address City/[facility]/ZIP Co de Phone Number [facility] [address] [place] [address] * (ABNORMAL) GLUCOSE METER POC (06/03/2025 8:00 AM EDT) Glucose Meter POC 182(H) 70 - 100 mg/dL 06/03/2025 8:01 AM EDT [facility] Sample Type Capillary 06/03/2025 8:01 AM EDT [facility] Patient Status Non-Critical Patient 06/03/2025 8:01 AM EDT [facility] Blood BLOOD SPECIMEN / Unknown 06/03/2025 8:00 AM EDT 06/03/2025 8:01 AM EDT Hugh Zamarripa MD POINT OF CARE TEST ORDER PEDRO LUIS Final Result [facility] [address] [place] [address] * (ABNORMAL) GLUCOSE METER POC (06/02/2025 9:00 PM EDT) Glucose Meter POC 192(H) 70 - 100 mg/dL 06/02/2025 9:02 PM EDT [facility] Sample Type Capillary 06/02/2025 9:02 PM EDT [facility] Patient Status Non-Critical Patient 06/02/2025 9:02 PM EDT [facility] Blood BLOOD SPECIMEN / Unknown 06/02/2025 9:00 PM EDT 06/02/2025 9:02 PM EDT Hugh Zamarripa MD POINT OF CARE TEST ORDER PEDRO LUIS Final Result Performing Organization Address City/[facility] Co de Phone Number [facility] [address] [place] [address] * (ABNORMAL) GLUCOSE METER POC (06/02/2025 4:25 PM EDT) Glucose Meter POC 131(H) 70 - 100 mg/dL 06/02/2025 4:27 PM EDT [facility] Sample Type Capillary 06/02/2025 4:27 PM EDT [facility] Patient Status Non-Critical Patient 06/02/2025 4:27 PM EDT [facility] Blood BLOOD SPECIMEN / Unknown 06/02/2025 4:25 PM EDT 06/02/2025 4:27 PM EDT Hugh Zamarripa MD POINT OF CARE TEST ORDER PEDRO LUIS Final Result Performing Organization Address City/[facility] de Phone Number [facility] [address] [place] [address] * (ABNORMAL) GLUCOSE METER POC (06/02/2025 12:17 PM EDT) Glucose Meter POC 139(H) 70 - 100 mg/dL 06/02/2025 12:19 PM EDT [facility] Sample Type Capillary 06/02/2025 12:19 PM EDT [facility] Patient Status Non-Critical Patient 06/02/2025 12:19 PM EDT [facility] Blood BLOOD SPECIMEN / Unknown 06/02/2025 12:17 PM EDT 06/02/2025 12:19 PM EDT Hugh Zamarripa MD POINT OF CARE TEST ORDER PEDRO LUIS Final Result Performing Organization Address City/[facility]/ZIP Co de Phone Number [facility] [address] [place] [address] * (ABNORMAL) GLUCOSE METER POC (06/02/2025 8:30 AM EDT) Glucose Meter POC 185(H) 70 - 100 mg/dL 06/02/2025 8:32 AM EDT [facility] Sample Type Capillary 06/02/2025 8:32 AM EDT [facility] Patient Status Non-Critical Patient 06/02/2025 8:32 AM EDT [facility] Blood BLOOD SPECIMEN / Unknown 06/02/2025 8:30 AM EDT 06/02/2025 8:32 AM EDT Hugh Zamarripa MD POINT OF CARE TEST ORDER PEDRO LUIS Final Result Performing Organization Address [facility] de Phone Number [facility] [address] [place] [address] * (ABNORMAL) GLUCOSE METER POC (06/01/2025 8:00 PM EDT) Glucose Meter POC 251(H) 70 - 100 mg/dL 06/01/2025 8:04 PM EDT [facility] Sample Type Capillary 06/01/2025 8:04 PM EDT [facility] Patient Status Non-Critical Patient 06/01/2025 8:04 PM EDT [facility] Blood BLOOD SPECIMEN / Unknown 06/01/2025 8:00 PM EDT 06/01/2025 8:04 PM EDT Hugh Zamarripa MD POINT OF CARE TEST ORDER PEDRO LUIS Final Result Performing Organization Address City/[facility] Co de Phone Number [facility] [address] [place] [address] * (ABNORMAL) GLUCOSE METER POC (06/01/2025 4:41 PM EDT) Glucose Meter POC 247(H) 70 - 100 mg/dL 06/01/2025 4:43 PM EDT [facility] Sample Type Capillary 06/01/2025 4:43 PM EDT [facility] Patient Status Non-Critical Patient 06/01/2025 4:43 PM EDT [facility] Blood BLOOD SPECIMEN / Unknown 06/01/2025 4:41 PM EDT 06/01/2025 4:43 PM EDT Hugh Zamarripa MD POINT OF CARE TEST ORDER PEDRO LUIS Final Result Performing Organization Address City/[facility]/ZIP Co de Phone Number [facility] [address] [place] [address] * (ABNORMAL) GLUCOSE METER POC (06/01/2025 12:17 PM EDT) Glucose Meter POC 235(H) 70 - 100 mg/dL 06/01/2025 12:19 PM EDT [facility] Sample Type Capillary 06/01/2025 12:19 PM EDT [facility] Patient Status Non-Critical Patient 06/01/2025 12:19 PM EDT [facility] Blood BLOOD SPECIMEN / Unknown 06/01/2025 12:17 PM EDT 06/01/2025 12:19 PM EDT Hugh Zamarripa MD POINT OF CARE TEST ORDER PEDRO LUIS Final Result Performing Organization Address City/[facility]/ZIP Co de Phone Number [facility] [address] [place] [address] * (ABNORMAL) GLUCOSE METER POC (06/01/2025 8:36 AM EDT) Glucose Meter POC 242(H) 70 - 100 mg/dL 06/01/2025 8:37 AM EDT [facility] Sample Type Capillary 06/01/2025 8:37 AM EDT [facility] Patient Status Non-Critical Patient 06/01/2025 8:37 AM EDT [facility] Blood BLOOD SPECIMEN / Unknown 06/01/2025 8:36 AM EDT 06/01/2025 8:37 AM EDT Hugh Zamarripa MD POINT OF CARE TEST ORDER PEDRO LUIS Final Result Performing Organization Address City/[facility] Co de Phone Number [facility] [address] [place] [address] * (ABNORMAL) GLUCOSE METER POC (05/31/2025 8:03 PM EDT) Glucose Meter POC 202(H) 70 - 100 mg/dL 05/31/2025 8:04 PM EDT [facility] Sample Type Capillary 05/31/2025 8:04 PM EDT [facility] Patient Status Non-Critical Patient 05/31/2025 8:04 PM EDT [facility] Blood BLOOD SPECIMEN / Unknown 05/31/2025 8:03 PM EDT 05/31/2025 8:04 PM EDT Hugh Zamarripa MD POINT OF CARE TEST ORDER PEDRO LUIS Final Result Performing Organization Address [facility] de Phone Number [facility] [address] [place] [address] * PARTIAL THROMBOPLASTIN TIME (05/31/2025 4:43 PM EDT) Pathologist [facility] PTT 31.8 25.7 - 36.8 second(s) 05/31/2025 4:58 PM EDT [facility] Comment: Therapeutic range for unfractionated heparin: [...] ORDERABLES Fi nal Result Performing Organization Address [facility] de Phone Number [facility] [address] [place] [address] * (ABNORMAL) PT / INR (05/31/2025 4:43 PM EDT) PT 13.7(H) 10.5 - 13.6 second(s) 05/31/2025 4:58 PM EDT [facility] INR 1.19(H) 0.91 - 1.18 (ratio) 05/31/2025 4:58 PM EDT [facility] Comment: Level of Therapy Indications Target INR Range Standard Dose Treatment and prophylaxis of venous 2.0 - 3.0 thrombosis, pulmonary embolism High Dose High risk patients with mechanical 2.5 - 3.5 heart valves Blood VENOUS BLOOD / Unknown Venipuncture / Unknown 05/31/2025 4:43 PM EDT 05/31/2025 4:47 PM EDT Hugh Zamarripa MD HEMATOLOGY ORDERABLES Fi nal Result Performing Organization Address [facility] de Phone Number [facility] [address] [place] [address] * (ABNORMAL) CBC WITH DIFF (05/31/2025 4:43 PM EDT) WBC 11.6(H) 3.7 - 10.3 x10(3)/mcL 05/31/2025 4:51 PM EDT [facility] RBC 4.09 3.90 - 5.20 x10(6)/mcL 05/31/2025 4:51 PM EDT [facility] Hgb 12.1 11.2 - 15.7 g/dL 05/31/2025 4:51 PM EDT [facility] Hct 38.3 34.0 - 45.0 % 05/31/2025 4:51 PM EDT [facility] MCV 93.6 80.0 - 100.0 fL 05/31/2025 4:51 PM [facility] MCH 29.6 26.0 - 34.0 pg 05/31/2025 4:51 PM [facility] MCHC 31.6 30.7 - 35.5 g/dL 05/31/2025 4:51 PM [facility] RDW 12.1 <=14.9 % 05/31/2025 4:51 PM [facility] Platelet 291 155 - 369 x10(3)/mcL 05/31/2025 4:51 PM [facility] MPV 9.2 8.8 - 12.5 fL 05/31/2025 4:51 PM [facility] Neut Percent 71.9 % 05/31/2025 4:51 PM [facility] Comment:Neutrophils equals s egs plus bands Imm Gran% 0.2 % 05/31/2025 4:51 PM [facility] Comment:Automated count of m etamyelocytes, myelocytes and promyelocytes. Lymph Percent 13.9 % 05/31/2025 4:51 PM [facility] [place] Percent 12.8 % 05/31/2025 4:51 PM [facility] Eos Percent 0.9 % 05/31/2025 4:51 PM [facility] Baso Percent 0.3 % 05/31/2025 4:51 PM [facility] Neut # 8.3(H) 1.6 - 6.1 x10(3)/mcL 05/31/2025 4:51 PM [facility] Comment:Neutrophils equals s egs plus bands IMMGRAN# 0.0 0.0 - 0.1 x10(3)/mcL 05/31/2025 4:51 PM [facility] Comment:Automated count of m etamyelocytes, myelocytes and promyelocytes. An absolute IG <0.1 is reported as 0.0. Lymph # 1.6 1.2 - 3.9 x10(3)/mcL 05/31/2025 4:51 PM [facility] [place] # 1.5(H) 0.3 - 0.9 x10(3)/mcL 05/31/2025 4:51 PM [facility] Eos# 0.1 0.0 - 0.5 x10(3)/mcL 05/31/2025 4:51 PM EDT [facility] Baso # 0.0 0.0 - 0.1 x10(3)/mcL 05/31/2025 4:51 PM EDT [facility] Blood VENOUS BLOOD / Unknown Venipuncture / Unknown 05/31/2025 4:43 PM EDT 05/31/2025 4:47 PM EDT Hugh Zamarripa MD HEMATOLOGY ORDERABLES Fi nal Result Performing Organization Address City/[facility]/ZIP Co de Phone Number [facility] [address] [place] [address] * (ABNORMAL) GLUCOSE METER POC (05/31/2025 4:37 PM EDT) Glucose Meter POC 175(H) 70 - 100 mg/dL 05/31/2025 4:40 PM EDT [facility] Sample Type Capillary 05/31/2025 4:40 PM EDT [facility] Patient Status Non-Critical Patient 05/31/2025 4:40 PM EDT [facility] Blood BLOOD SPECIMEN / Unknown 05/31/2025 4:37 PM EDT 05/31/2025 4:40 PM EDT Hugh Zamarripa MD POINT OF CARE TEST ORDER PEDRO LUIS Final Result Performing Organization Address City/[facility]/ZIP Co de Phone Number [facility] [address] [place] [address] * (ABNORMAL) GLUCOSE METER POC (05/31/2025 11:41 AM EDT) Glucose Meter POC 195(H) 70 - 100 mg/dL 05/31/2025 11:42 AM EDT [facility] Sample Type Capillary 05/31/2025 11:42 AM EDT [facility] Patient Status Non-Critical Patient 05/31/2025 11:42 AM EDT [facility] Blood BLOOD SPECIMEN / Unknown 05/31/2025 11:41 AM EDT 05/31/2025 11:42 AM EDT Hugh Zamarripa MD POINT OF CARE TEST ORDER PEDRO LUIS Final Result Performing Organization Address City/[facility] Co de Phone Number [facility] [address] [place] [address] * (ABNORMAL) GLUCOSE METER POC (05/31/2025 8:12 AM EDT) Glucose Meter POC 233(H) 70 - 100 mg/dL 05/31/2025 8:13 AM EDT [facility] Sample Type Capillary 05/31/2025 8:13 AM EDT [facility] Patient Status Non-Critical Patient 05/31/2025 8:13 AM EDT [facility] Blood BLOOD SPECIMEN / Unknown 05/31/2025 8:12 AM EDT 05/31/2025 8:13 AM EDT Hugh Zamarripa MD POINT OF CARE TEST ORDER PEDRO LUIS Final Result Performing Organization Address [facility] de Phone Number [facility] [address] [place] [address] * (ABNORMAL) GLUCOSE METER POC (05/30/2025 7:58 PM EDT) Glucose Meter POC 272(H) 70 - 100 mg/dL 05/30/2025 8:01 PM EDT [facility] Sample Type Capillary 05/30/2025 8:01 PM EDT [facility] Patient Status Non-Critical Patient 05/30/2025 8:01 PM EDT [facility] Blood BLOOD SPECIMEN / Unknown 05/30/2025 7:58 PM EDT 05/30/2025 8:01 PM EDT Hugh Zamarripa MD POINT OF CARE TEST ORDER PEDRO LUIS Final Result Performing Organization Address City/[facility]/ZIP Co de Phone Number [facility] [address] [place] [address] * (ABNORMAL) GLUCOSE METER POC (05/30/2025 5:07 PM EDT) Glucose Meter POC 269(H) 70 - 100 mg/dL 05/30/2025 5:09 PM EDT [facility] Sample Type Capillary 05/30/2025 5:09 PM EDT [facility] Patient Status Non-Critical Patient 05/30/2025 5:09 PM EDT [facility] Blood BLOOD SPECIMEN / Unknown 05/30/2025 5:07 PM EDT 05/30/2025 5:09 PM EDT Hugh Zamarripa MD POINT OF CARE TEST ORDER PEDRO LUIS Final Result [facility] [address] [place] [address] * CT ABDOMEN PELVIS HEMATURIA/RENAL MASS PROTOCOL [...] - 1.3 mg/dL 05/30/2025 1:28 PM EDT [facility] Blood BLOOD SPECIMEN / Unknown 05/30/2025 1:26 PM EDT 05/30/2025 1:28 PM EDT Hugh Zamarripa MD POINT OF CARE TEST ORDER PEDRO LUIS Final Result [facility] [address] [place] [address] * (ABNORMAL) GLUCOSE METER POC (05/30/2025 9:02 AM EDT) Glucose Meter POC 272(H) 70 - 100 mg/dL 05/30/2025 9:03 AM EDT [facility] Sample Type Capillary 05/30/2025 9:03 AM EDT [facility] Patient Status Non-Critical Patient 05/30/2025 9:03 AM EDT [facility] Blood BLOOD SPECIMEN / Unknown 05/30/2025 9:02 AM EDT 05/30/2025 9:03 AM EDT Hugh Zamarripa MD POINT OF CARE TEST ORDER PEDRO LUIS Final Result [facility] [address] [place] [address] * (ABNORMAL) GLUCOSE METER POC (05/29/2025 9:25 PM EDT) Glucose Meter POC 214(H) 70 - 100 mg/dL 05/29/2025 9:26 PM EDT [facility] Sample Type Capillary 05/29/2025 9:26 PM EDT [facility] Patient Status Non-Critical Patient 05/29/2025 9:26 PM EDT [facility] Blood BLOOD SPECIMEN / Unknown 05/29/2025 9:25 PM EDT 05/29/2025 9:26 PM EDT Hugh Zamarripa MD POINT OF CARE TEST ORDER PEDRO LUIS Final Result [facility] [address] [place] [address] documented in this encounter Visit Diagnoses Diagnosis Fractured hip, left, closed, initial encounter (HCC)- Primary Resides in detention facility Coronary artery disease involving [place] coronary artery of [place] heart without angina pectoris Pneumonia due to infectious organism, unspecified laterality, unspecified part of lung Closed fracture of left femur with routine healing, unspecified fracture morphology, unspecified portion of femur, subsequent encounter Type 2 diabetes mellitus without complication, without long-term current use of insulin ([facility]) Prophylactic measure Thrush Candidiasis of mouth Excoriation [...] Unspecified essential hypertension Coronary artery disease involving [place] coronary artery of [place] heart without angina pectoris Adrenal adenoma, left Left renal mass Unspecified disorder of kidney and ureter Left lower lobe pulmonary nodule Hypokalemia Hypopotassemia Hypomagnesemia Disorders of magnesium metabolism Shortness of breath documented in this encounter Admitting Diagnoses Diagnosis Fractured hip, left, closed, initial encounter ([facility]) documented in this encounter Administered Medications Inactive [...] in 24 hours., Dx: 1. Resides in detention facilityIndications:R esides in detention facility Given 06/09/2025 11:23 AM EDT 650 [...] Discontinued, Dx: 1. Coronary artery disease involving [place] coronary artery of [place] heart without angina pectorisIndications:C oronary artery disease involving [place] coronary artery of [place] heart without angina pectoris Given 06/12/2025 9:09 AM EDT 81 mg cholecalciferol (vitamin D3) tablet 1,000 Units 1,000 Units, Oral, DAILY, First dose on Thu05/30/25 at 0900, Until Discontinued, Dx: 1. Resides in detention facilityIndications:R esides in detention facility Given 06/12/2025 9:10 AM EDT 1,000 Units citalopram (CeleXA) tablet 5 mg 5 mg, Oral, 2 TIMES DAILY, First dose on Thu05/29/25 at 2115, Until Discontinued, Dx: 1. Resides in detention facilityIndications:lila qiu depressive disorder Given 06/12/2025 9:10 AM EDT 5 mg clopidogreL (PLAVIX) tablet 75 mg 75 mg, Oral, DAILY, First dose on Thu05/30/25 at 0900, Until Discontinued, Dx: 1. Coronary artery disease involving [place] coronary artery of [place] heart without angina pectorisIndications:C oronary artery disease involving [place] coronary artery of [place] heart without angina pectoris Given 06/12/2025 9:09 [...] without long-term current use of insulin ([facility]) enoxaparin (LOVENOX) injection 40 mg 40 mg, Subcutaneous, DAILY - LMWH/Xa, First dose on Thu05/30/25 at 0745, Until Discontinued, Dx: 1. Resides in detention facilityIndications:R esides in detention facility Given 05/31/2025 11:47 AM EDT 40 mg Abdominal Tissue fluocinonide (LIDEX) 0.05 % cream Topical, 2 TIMES DAILY PRN, Starting on Thu05/30/25 at 0607, Until Thu06/12/25 at 1525, Other, skin irritation, Application site: skin irritation, Dx: 1. Resides in detention facilityIndications:R capri in detention facility fosfomycin (MONUROL) packet 3 g 3 [...] use. Supplied by Nutrition ServicesIndications:R capri in detention facility,Closed fracture of left femur with routine [...] use. Supplied by Nutrition ServicesIndications:Gillian farooq in detention facility,Closed fracture of left femur with routine [...] , Dx: 1. Coronary artery disease involving [place] coronary artery of [place] heart without angina pectorisIndications:C oronary artery disease involving [place] coronary artery of [place] heart without angina pectoris Given 06/12/2025 9:07 [...] at 1525, Sleep, Dx: 1. Resides in detention facilityIndications:R esides in detention facility Given 06/10/2025 9:52 PM EDT 5 mg metFORMIN (GLUCOPHAGE XR) ER tablet 500 mg 500 mg, Oral, 2 TIMES DAILY WITH MEALS, First dose on Thu05/30/25 at 0800, Until Discontinued, Take with food., Dx: 1. Resides in detention facilityIndications:t ype 2 diabetes mellitus Given 06/12/2025 9:10 AM EDT 500 mg metoprolol (LOPRESSOR) tablet 25 mg 25 mg, Oral, 2 TIMES DAILY, First dose on Thu05/29/25 at 2115, Until Discontinued, Preferably taken with or immediately following meals. Take consistently with relation to food., Dx: 1. Resides in detention facilityIndications:h ypertension Given 06/12/2025 9:08 AM EDT [...] crush or chew, Dx: 1. Resides in detention facilityIndications:h eartburn Given 06/11/2025 8:43 PM EDT [...] unrelieved by Senokot-S, Dx: 1. Resides in detention facilityIndications:R esides in detention facility potassium chloride (KLOR-CON) tablet 20 mEq [...] 2115, Until Discontinued, Dx: 1. Resides in detention facilityIndications:R esides in detention facility Given 06/11/2025 8:43 PM EDT 5 mg Saccharomyces boulardii (FLORASTOR) capsule 250 mg 250 mg, Oral, 2 TIMES DAILY, First dose on Thu05/30/25 at 0900, Until Discontinued, If for feeding tube administration, open capsule/packet outside of patient's room and dissolve contents in 8-12 oz. of liquid, Dx: 1. Resides in detention facilityIndications:R esides in detention facility Given 06/12/2025 9:10 AM EDT 250 mg senna-docusate (SENOKOT-S) 8.6-50 mg per tablet 2 Tablet 2 Tablet, Oral, 2 TIMES DAILY PRN, Starting on Thu05/29/25 at 1833, Until Thu06/12/25 at 1525, Constipation, Use first for constipation, Dx: 1. Resides in detention facilityIndications:R esides in detention facility sodium chloride 0.9 % 250 mL [...] Reason: Other - Comment: PRN dose of [place] given prior) 06 (Given - Provider: Stephany [...] not available)0851 (Given - Provider: Clarisa Strong, SECOND FLOOR OPERATOR)1104 (Given - Provider: Clarisa Strong SECOND FLOOR OPERATOR - Comment: Pt. requested tx)1601 (Given - Provider: Clarisa Strong CRT)2006 (Given - Provider: Kristian Arce CRT) 0900 (Given - Provider: Clarisa Strong SECOND FLOOR OPERATOR)1236 (Not Given - Provider: Clarisa Strong SECOND FLOOR OPERATOR - Reason: Patient not available - Comment: eating)1252 (Not Given - Provider: Clarisa Scheid-Lassiter, SECOND FLOOR OPERATOR - Reason: Patient Declined - Comment: confused, strongly refused tx.)1637 (Given - Provider: Clarisa Strong, SECOND FLOOR OPERATOR)2052 (Given - Provider: Kristian Arce, SECOND FLOOR OPERATOR) 08 (Given - Provider: Chery Benites) aspirin chewable tablet 81 mg 81 mg, Oral, DAILY, First dose on Thu05/30/25 at 0900, Until Discontinued, Dx: 1. Coronary artery disease involving [place] coronary artery of [place] heart without angina pectoris 08 (Given - Provider: Janet Porras RN) 932 (Given - Provider: Janet Porras RN) 09 (Given - Provider: Riki Khan, RN) cholecalciferol (vitamin D3) tablet 1,000 Units 1,000 Units, Oral, DAILY, First dose on Thu05/30/25 at 0900, Until Discontinued, Dx: 1. Resides in detention facility 08 (Given - Provider: Janet Porras RN) 932 (Given - Provider: Janet Porras RN) 09 (Given - Provider: Riki Khan, RN) citalopram (CeleXA) tablet 5 mg 5 mg, Oral, 2 TIMES DAILY, First dose on Thu05/29/25 at 2115, Until Discontinued, Dx: 1. Resides in detention facility 0822 (Given - Provider: Janet Porras RN)2151 (Given - Provider: Stephany Lopez LPN) 932 (Given - Provider: Janet Porras RN)2043 (Given - Provider: Stephany Lopez LPN) 0910 (Given - Provider: Riki Khan, RN) clopidogreL (PLAVIX) tablet 75 mg 75 mg, Oral, DAILY, First dose on Thu05/30/25 at 0900, Until Discontinued, Dx: 1. Coronary artery disease involving [place] coronary artery of [place] heart without angina pectoris 08 (Given - [...] Contraindicated) 0800 (Not Given - Provider: Riki hKan RN - Reason: Order parameters not met) [...] dose by 20%. Waste Sort Code = [facility], Dx: 1. Type 2 diabetes mellitus without [...] , Dx: 1. Coronary artery disease involving [place] coronary artery of [place] heart without angina pectoris 08 (Given - [...] Take with food., Dx: 1. Resides in detention facility 08 (Given - Provider: Janet Porras [...] relation to food., Dx: 1. Resides in detention facility 08 (Given - Provider: Janet Porras RN)2151 (Given - Provider: Stephany Lopez LPN) 09 (Given - Provider: Janet Porras RN)2043 (Given - Provider: Stephany Lopez LPN) 09 (Given - Provider: Riki Khan RN) miconazole (MICATIN) 2 % powder Topical, 2 TIMES DAILY, 84 doses, First dose on Thu06/08/25 at 1045, Last dose on Thu07/19/25 at 2100, Application site: [facility], Dx: 1. Excoriation 0836 (Given - [...] crush or chew, Dx: 1. Resides in detention facility 2151 (Given - Provider: Stephany Lopez [...] 2115, Until Discontinued, Dx: 1. Resides in detention facility 2151 (Given - Provider: Stephany Lopez LPN) 2042 (Given - Provider: Stephany Lopez LPN) Saccharomyces boulardii (FLORASTOR) capsule 250 mg 250 mg, Oral, 2 TIMES DAILY, First dose on Thu05/30/25 at 0900, Until Discontinued, If for feeding tube administration, open capsule/packet outside of patient's room and dissolve contents in 8-12 oz. of liquid, Dx: 1. Resides in detention facility 0820 (Given - Provider: Janet Porras [...] without long-term current use of insulin ([facility]) fluocinonide (LIDEX) 0.05 % cream Topical, 2 TIMES DAILY PRN, Starting on Thu05/30/25 at 0607, Until Thu06/12/25 at 1525, Other, skin irritation, Application site: skin irritation, Dx: 1. Resides in detention facility glucagon (GLUCAGEN) injection 1 mg(Linked Group [...] without long-term current use of insulin ([facility]) HYDROcodone-acetaminophen (NORCO) 5-325 mg per tablet 1 [...] at 1525, Sleep, Dx: 1. Resides in detention facility 2151 (Given - Provider: Stephany Lopez [...] unrelieved by Senokot-S, Dx: 1. Resides in detention facility senna-docusate (SENOKOT-S) 8.6-50 mg per tablet 2 Tablet 2 Tablet, Oral, 2 TIMES DAILY PRN, Starting on Thu05/29/25 at 1833, Until Thu06/12/25 at 1525, Constipation, Use first for constipation, Dx: 1. Resides in detention facility sterile water injection 1 mL(Linked Group 4) 1 mL, Injection, PRN, Starting on Thu05/30/25 at 1723, Until Thu06/12/25 at 1525, Use for drug dilution, Use to dilute and administer glucagon injection, Insulin Calculator, Dx: 1. Type 2 diabetes mellitus without complication, without long-term current use of insulin ([facility]) Linked Groups Order Group 1: albuterol-ipratropium (DUO-NEB) [...] without long-term current use of insulin ([facility]) And insulin aspart U-100 (NovoLOG) injection 0-40 [...] without long-term current use of insulin ([facility]) Group 3: magnesium sulfate in dextrose 5% [...] without long-term current use of insulin ([facility]) And sterile water injection 1 mLJump to med 1 mL, Injection, PRN, Starting on Thu05/30/25 at 1723, Until Thu06/12/25 at 1525, Use for drug dilution, Use to dilute and administer glucagon injection, Insulin Calculator, Dx: 1. Type 2 diabetes mellitus without complication, without long- term current use of insulin ([facility]) Group 5: ondansetron (ZOFRAN) injection 4 mgJump [...] IP CONSULT TO PHYSICAL THERAPY 1 05/29/2025 MOBILITY ENGINEER Count Last Ordered Date First Orde red Date IP CONSULT TO SPEECH THERAPY 1 06/05/2025 ONGOING SPEECH THERAPY PER PLAN OF CARE 1 1 Admission Count Last Ordered Date First Orde red Date ADMIT 1 05/29/2025 Discharge Count Last Ordered Date First Orde red Date DISCHARGE PATIENT 1 06/12/2025 documented in this encounter
[2025-06-29 17:44] VITALS: BP 149/60; PULSE 76; O2SAT 94
--- NOTE | 2025-06-29 17:44 | ED_ITS ---
<Statement entered by Morena Hansen DO - 06/30/25 00:06> I was consulted by the ESTRELLA, and we discussed the complexity of problems being addressed. I approve the treatment and management plan for this patient's care in the emergency department, thus performing a substantial portion of the medical decision making. Morena Hansen DO Discharge Plan Disposition Patient Disposition: Home, Self-Care Condition: Good Prescriptions Prescriptions: No Action clopidogrel [Plavix] 75 mg tablet 75 mg PO DAILY Qty: 90 3RF aspirin 81 mg tablet,delayed release (DR/EC) 81 mg PO DAILY Qty: 100 10RF (DME) nebulizers Misc See Rx Instructions .MEDSUPPLY Qty: 1 0RF Rx Instructions: As directed (DME) nebulizer accessories Kit See Rx Instructions .MEDSUPPLY Qty: 1 0RF Rx Instructions: As directed cholecalciferol (vitamin D3) 25 mcg (1,000 unit) capsule 25 mcg PO DAILY (DME) OneTouch Verio test strips Strip See Rx Instructions .Route Qty: 50 11RF Rx Instructions: As directed citalopram 10 mg tablet 5 mg PO BID Qty: 30 5RF hydrocortisone 2.5 % cream 1 applic topical TID PRN (Reason: hemorrhoids) Qty: 30 2RF rosuvastatin 5 mg tablet 5 mg PO HS Qty: 90 1RF metformin 500 mg tablet extended release 24 hr 500 mg PO BID Qty: 60 2RF Patient Comments: TAKE 2 TABLETS BY MOUTH ONCE DAILY. (DME) insulin syringes (disposable) 1 mL syringe See Rx Instructions .Route Qty: 50 0RF Rx Instructions: As directed with insulin insulin glargine [Lantus U-100 Insulin] 100 unit/mL solution 10 unit SQ HS metoprolol tartrate 50 mg tablet 25 mg PO BID irbesartan 300 mg Tablet 300 mg PO DAILY furosemide [Lasix] 40 mg tablet 40 mg PO DAILY Qty: 30 0RF betamethasone dipropionate 0.05 % cream 1 applic topical BIDP PRN (Reason: skin irritation) pantoprazole 40 mg Tablet,Delayed Release (Dr/Ec) 40 mg PO HS 30 Days Qty: 30 0RF ipratropium-albuterol 0.5 mg-3 mg(2.5 mg base)/3 mL Solution For Nebulization 3 ml inhalation Q6RT 30 Days Qty: 90 0RF albuterol sulfate [Ventolin HFA] 90 mcg/actuation HFA aerosol inhaler 2 puff inhalation Q6H PRN (Reason: Shortness of breath) 30 Days Qty: 0 0RF Referrals Follow up/Referrals: Aracely Thomas APRN [Primary Care Provider, Family Practice] - See instructions Joselo Ortega DO [Staff Physician, Orthopedics] - See instructions Activity Restrictions/Add. Instructions Additional Instructions/Restrictions: Please return to the emergency department with any worsening signs or symptoms continue with at home physical therapy and Occupational Therapy, please utilize all your medications as prescribed. Please follow-up with orthopedic doctor in the upcoming days/weeks. Clinical Impressions Clinical Impression: Fall, Hypomagnesemia Instructions Patient Instructions: How to Prevent Falls Print Language Print Language: [place] Discharge ED Provider: Morean Hansen Adult HPI General Chief complaint: Fall Stated complaint: fall Time Seen by Provider: 06/29/25 17:44 Mode of Arrival: EMS Source of Information: Patient and Medical Record Limitations: No Limitations History of Present Illness HPI narrative: 84-year-old female presents the emergency department via EMS for a fall from a standing position, patient states she was down for at least 30-45 minutes , patient states she was try to get out of bed to answer the door for her daughter , when she turned and fell, she denies any presyncopal or syncopal event, denies any dizziness, lightheadedness, does admit to nausea, denies striking her head denies any LOC, is on antiplatelet therapy, but not on any anticoagulant therapy, patient denies any fever chills chest pain shortness of breath, denies any abdominal pain constipation diarrhea no urinary type symptomatology, no hematuria melena hematochezia hematemesis, does complain of left hip pain, patient is Status post left hip arthroplasty for displaced left femoral neck fracture, on 05/26/2025, patient also admits to frequent falls over the last several weeks. Denies any numbness or tingling, denies any neck, mid back pain or low back pain, denies any radicular type symptomatology at this time, denies any saddle anesthesia urinary bladder or bowel dysfunction. Patient is a former smoker denies any alcohol or drug use, other past medical history is consistent with hypertension, NIVIA/MDD, carotid artery stenosis, type 2 diabetes, hyperlipidemia, degenerative disc disease of the spine, patient is on dual endplate therapy of Plavix and aspirin. Initial triage vitals are unremarkable. Please note that above description of symptoms, in this electronic medical record under categorization of recalled from ER triage doctor by RN are reflective of an initial nursing assessment, however, is not reflective of my full history and physical exam that was personally taken and clarified. Consequentially, this preceding description of symptoms, which may include the patient's categorized chief complaint in the EMR, do not reflect my personal clinical impression, and the ultimate description of history of present illness and patient stated complaints should be deferred to this section of the note. Unless stated otherwise or congruent with this section of the note, additional signs, symptoms, or incongruence should be interpreted as inaccurate with my clinical impression. Onset (ago): hour(s) Related Data Home Medications ?Medication ?Instructions ?Recorded ?Confirmed cholecalciferol (vitamin D3) 25 25 mcg PO DAILY 06/14/25 mcg (1,000 unit) capsule betamethasone dipropionate 0.05 % 1 applic topical BID P PRN skin 05/25/25 06/14/25 topical cream irritation insulin glargine 100 unit/mL 10 unit SQ HS 06/14/25 subcutaneous solution (Lantus U-100 Insulin) irbesartan 300 mg tablet 300 mg PO DAILY 06/14/25 metoprolol tartrate 50 mg tablet 25 mg PO BID 06/14/25 06/14/25 Previous Rx's ?Medication ?Instructions ?Recorded aspirin 81 mg tablet,delayed 81 mg PO DAILY #100 tabs 07/06/24 release clopidogrel 75 mg tablet (Plavix) 75 mg PO DAILY #90 t abs 07/06/24 nebulizer accessories #1 ea 08/08/24 nebulizers #1 ea 08/08/24 blood sugar diagnostic (OneTouch #50 ea 04/03/25 Verio test strips) citalopram 10 mg tablet 5 mg (1/2 x 10 mg) PO BID #3 0 tabs 04/03/25 rosuvastatin 5 mg tablet 5 mg PO HS #90 tabs 04/26/25 metformin 500 mg tablet,extended 500 mg PO BID #60 tab s 05/10/25 release 24 hr albuterol sulfate 90 mcg/actuation 2 puff inhalation Q 6H PRN 05/29/25 aerosol inhaler (Ventolin HFA) Shortness of breath 30 days #0 grams ipratropium 0.5 mg-albuterol 3 mg 3 ml inhalation Q6RT 30 days #90 mL 05/29/25 (2.5 mg base)/3 mL nebulization soln pantoprazole 40 mg tablet,delayed 40 mg PO HS 30 days #30 tabs 05/29/25 release furosemide 40 mg tablet (Lasix) 40 mg PO DAILY #30 tab s 06/14/25 hydrocortisone 2.5 % topical cream 1 applic topical TI D PRN 06/16/25 hemorrhoids #30 grams insulin syringes (disposable) 1 mL #50 ea 06/22/25 Allergies Allergy/AdvReac Type Severity Reaction Status Date / Time Penicillins Allergy Severe swelling Verified 06/12/25 14:00 doxycycline Allergy Mild Unknown Verified 06/12/25 14:00 allergy reaction levofloxacin (From Levaquin) Allergy Anaphylaxis Verified 06/12/25 14:00 moxifloxacin (From Avelox) Allergy Hives Verified 06/12/25 14:00 brompheniramine AdvReac Unknown Verified 06/12/25 14:00 allergy reaction bupivacaine (From Marcaine) AdvReac Unknown Verified 06/12/25 14:00 allergy reaction cephalexin (From Keflex) AdvReac Unknown Verified 06/12/25 14:00 allergy reaction clarithromycin AdvReac Unknown Verified 06/12/25 14:00 allergy reaction fluvastatin (From Lescol) AdvReac Unknown Verified 06/12/25 14:00 allergy reaction hydrochlorothiazide AdvReac Unknown Verified 06/12/25 14:00 allergy reaction lovastatin (From Altocor) AdvReac Unknown Verified 06/12/25 14:00 allergy reaction nitrofurantoin (From AdvReac Unknown Verified 06/12/25 14:00 Macrobid) allergy reaction triamcinolone (From Kenalog) AdvReac Unknown Verified 06/12/25 14:00 allergy reaction PFSH PFSH Disclaimer: The information contained in this section may have been updated after the patient was seen, as this information can be updated by other users. Medical History (Updated 06/29/25 @ 19:21 by ZAIN Simmons) Pressure ulcer Shortness of Breath Celiac artery stenosis Acute heart failure with preserved ejection fraction (HFpEF) Pleural effusion, bilateral Vertigo Transient neurological symptoms Encounter for immunization Thyroid nodule Visual hallucination Right-sided headache Coronary artery calcification seen on CT scan Pulmonary nodule Vitamin D deficiency Type 2 diabetes mellitus without complications Hyperlipidemia Diabetes mellitus HTN (hypertension) Degenerative joint disease (DJD) of lumbar spine Surgical History H/O removal of cyst History of cholecystectomy Hx of cataract surgery Family History Mother Coronary artery disease Grandmother Stroke Brother Heart attack Social History Smoking Status: Current some day smoker tobacco type: cigarettes packs per day: 1 alcohol intake: never substance use type: denies use current occupational status: other Travel in the last 8 weeks?: None household members: other housing: house Have you lived/traveled outside [place] in past 30 days?: No Contact w/someone who lives/traveled outside US past 30 days?: No Exposure to someone with infectious disease in past 14 days?: No Do you have a fever (greater than 100.4 F or 38 C)?: No Have you tested positive for COVID-19?: No Exposed to someone with COVID-19 in past 14 days?: No Do you have a sore throat?: No Do you have a cough?: No Do you have any weakness?: No Do you have any diarrhea?: No Are you experiencing any unusual bleeding?: No Do you have any muscle aches/pain?: No Do you have any abdominal pain?: No Are you experiencing loss of taste or smell?: No Other Medical History Have you received the Flu Vaccine for this season: No Have you received the Pneumonia Vaccine: No ROS Obtained: Yes All systems reviewed & no additional complaints except as documented Physical Exam General General appearance: alert and in no apparent distress Head Head exam: atraumatic and normocephalic Eye Eye exam: Present PERRL and EOMI ENT ENT exam: Present mucous membranes moist Neck Neck exam: Present normal inspection Chest Chest inspection: Present normal inspection and symmetric chest wall rise Respiratory Respiratory exam: Present normal lung sounds bilaterally; Absent respiratory distress Cardiovascular Cardiovascular exam: Present regular rate and normal rhythm Abdominal Exam Abdominal exam: Present soft; Absent tenderness, guarding, rebound or rigidity Extremities Exam Extremities exam: Present normal inspection, tenderness and other (Pain palpation to the left hip joint, no other upper or lower extremity pain palpation, otherwise neurovascular intact) Back Exam Back exam: Present normal inspection and full ROM; Absent tenderness, muscle spasm, paraspinal tenderness or vertebral tenderness Neurological Exam Neurological exam: Present alert, oriented X3 and other (Moves extremities to command, some difficulty with raising the left lower extremity off the bed, states has been present since her recent status post 1 month hip arthroplasty on the left 5 out of 5 strength dorsiflexion plantarflexion, no gross sensation deficit) Psychiatric Psychiatric exam: Present normal affect Skin Skin exam: Present warm and dry Medical Decision Making Medical Records Medical records reviewed: Yes I reviewed the patient's medical records. Screening: Per USPSTF and CDC recommendations, given the prevalence of disease in our region, it is our hospital?s policy to screen for HIV and viral Hepatitis for all patients aged 18 and over and those with ongoing risk factors. Cristhian Inquiry Pt receiving controlled substance: No Cristhian was queried for this patient: No Vital Signs: 06/29/25 17:44 06/29/25 17:47 Temperature 98.4 F Temperature Source Oral Pulse Rate 76 Pulse Rate [Right Brachial] 78 Respiratory Rate 18 Blood Pressure 149/60 H Blood Pressure [Right Arm] 149/60 H Blood Pressure Mean 116 Blood Pressure Mean [Right Arm] 89 Blood Pressure Source [Right Arm] Automatic Cuff 02 Sat by Pulse Oximetry 94 L 98 Oxygen Delivery Method Room Air Lab Data Lab results reviewed: Yes I reviewed the patient's lab results. Lab Results 06/29/25 18:05: WBC 10.0, RBC 4.16 L, Hgb 12.7, Hct 37.8, MCV 90.9, MCH 30.5, MCHC 33.6, RDW 13.7, Plt Count 339, MPV 9.3, Neut % (Auto) 68.6, Lymph % (Auto) 20.5, [place] % (Auto) 8.7, Eos % (Auto) 1.4, Baso % (Auto) 0.4, Neut # (Auto) 6.9, Lymph # (Auto) 2.1, [place] # (Auto) 0.9, Eos # (Auto) 0.1, Baso # (Auto) 0.0, Sodium 137, Potassium 3.6, Chloride 100, Carbon Dioxide 32 H, Anion Gap 8.6, BUN 21 H, Creatinine 0.90, Estimated Creat Clear 49, Estimated GFR 60, Est GFR ( Amer) 72, Glucose 159 H, Calcium 9.0, Magnesium 1.1 L, Total Bilirubin 0.2, AST 26, ALT 16, Alkaline Phosphatase 125, Total Creatine Kinase 37, Troponin I < 0.01, NT-Pro-B Natriuret Pep 954 H, Total Protein 6.6, Albumin 2.9 L, Globulin 3.7 H, Albumin/Globulin Ratio 0.8 L 06/29/25 19:10: Urine Color Yellow, Urine Appearance Clear, Urine pH 5.0, Ur Specific [place] 1.020, Urine Protein Negative, Urine Glucose (UA) Negative, Urine Ketones Negative, Urine Blood Negative, Urine Nitrate Negative, Urine Bilirubin Negative, Urine Urobilinogen 0.2, Ur Leukocyte Esterase Negative, Urine RBC None, Urine WBC Occasional, Ur Squamous Epith Cells Occasional, Urine Bacteria Trace 06/29/25 18:05 06/29/25 18:05 Orders (Tests/Meds): ED MEDICATIONS Generic Name Dose Route Start Last Admin Trade Name Freq PRN Reason Stop Dose Admin Magnesium Sulfate 2 gm in 50 mls @ 50 mls/hr 06/29/25 18:58 Magnesium Sulfate 2gm/50ml Premix IV 06/29/25 19:57 ONCE ONE Discontinued Medications Generic Name Dose Route Start Last Admin Trade Name Freq PRN Reason Stop Dose Admin Ondansetron HCl 4 mg 06/29/25 18:15 06/29/25 18:33 Ondansetron 4mg/2ml Vial IV 06/29/25 18:16 4 mg ONCE ONE Administration ORDERS Category Date Time Status CT bony pelvis Stat Cat Scan 06/29/25 17:[address] cervical spine wo con Stat Cat Scan 06/29/25 17:[address] head/brain wo con Stat Cat Scan 06/29/25 17:49 Completed Pelvis XR 1-2 views [XR pelvis 1-2V] Stat Exams 06/29/25 17:49 Completed XR chest portable Stat Exams 06/29/25 17:49 Completed XR femur LT 2V Stat Exams 06/29/25 17:50 Completed CK [Creatine Kinase] Stat Lab 06/29/25 18:05 Completed Complete Blood Count Auto Diff Stat Lab 06/29/25 18:05 Completed Comprehensive Metabolic Panel Stat Lab 06/29/25 18:05 Completed Magnesium Stat Lab 06/29/25 18:05 Completed NT Pro Brain Natriuretic Pep. Stat Lab 06/29/25 18:05 Completed Troponin I Q3H Lab 06/29/25 21:00 Ordered Troponin I Q3H Lab 06/30/25 00:00 Ordered Troponin I Stat Lab 06/29/25 18:05 Completed Urinalysis and Microscopic Stat Lab 06/29/25 19:10 Completed Medical Decision Narrative: 84-year-old female presents emergency department for ground-level mechanical fall that occurred 30-45 minutes prior to arrival, differential diagnose include but not limited to cardiac arrhythmia, electrolyte disturbance, periprosthetic fracture, left hip sprain/strain, acute SDH, traumatic SAH, other soft tissue injury, contusion, rhabdomyolysis among others. I discussed this patient's case with the attending physician Dr. Hansen Will obtain basic laboratory studies, magnesium level proBNP troponin urinalysis, CK level, EKG, CT cervical spine without contrast, CT head without contrast, CT bony pelvis, chest x-ray, left femur x-ray and pelvic x-ray, will give 4 mg of Zofran for nausea. CBC unremarkable CMP is notable for mild BUN elevation at 21 hypomagnesia 1.1, will replace with 2 g IV magnesium, Troponin is less than 0.01 creatinine kinase within normal limits, proBNP is 954 otherwise unremarkable CMP I reviewed the patient's chest x-ray along the corresponding radiologic report, no focal consolidation. I reviewed the patient's CT head without contrast on the corresponding radiologic report, no acute intracranial findings. I reviewed the patient's CT cervical spine without contrast along the corresponding radiologic report, no acute fracture or myeloma in the cervical spine, there is a 1.2 cm soft tissue nodule in the right parotid gland, recommend follow-up ultrasound as neoplasm is more likely than abnormal lymph node. I reviewed the patient's CT pelvis without contrast along the corresponding radiologic report, limited evaluation due to lack of intravenous contrast, ill- defined low-attenuation density adjacent to the left greater trochanteric laterally, measuring 4.2 cm possibly bursitis indeterminate correlate with MRI if no contraindications no evidence of acute fracture. I reviewed the patient pelvic x-ray along with corresponding radiologic report, left hip arthroplasty no evidence of acute fracture. I reviewed the patient's left femur x-ray along with corresponding radiologic report, left hip arthroplasty soft tissue fullness adjacent to the left greater trochanter no evidence of acute fracture. UA is unremarkable I discussed the results with the patient and at the bedside, daughter is now bedside, discussed this with her as well. Patient can move extremities to command, status post 1 month postop, she does have slated follow-up with orthopedic provider in the upcoming days/weeks advised her to keep this appointment. Patient was given strict ED return precautions, patient also inform me that she has at home physical therapy at home nursing care as well as occupational therapy advised her to keep up with this. Patient voiced understanding and agreement with current treatment plan/discharge plan. Critical Care Critical Care Time Critical Care Time: No
[2025-06-29 17:47] VITALS: BP 149/60; PULSE 78; RESP 18; TEMP 36.9; O2SAT 98; BMI 29.6
--- NOTE | 2025-06-29 17:49 | CT_ITS ---
PROCEDURE INFORMATION: Exam: CT Cervical Spine Without Contrast Exam date and time: 06/29/2025 6:16 PM Age: 84 years old Clinical indication: Injury or trauma; Fall; Blunt trauma TECHNIQUE: Imaging protocol: Computed tomography of the cervical spine without contrast. Radiation optimization: All CT scans at this facility use at least one of these dose optimization techniques: automated exposure control; mA and/or kV adjustment per patient size (includes targeted exams where dose is matched to clinical indication); or iterative reconstruction. COMPARISON: CT CERVICAL SPINE WO CON 05/24/2025 4:36 PM FINDINGS: Bones: Straightening of the curvature of the cervical spine is likely positional. Multilevel degenerative changes of the cervical spine producing multiple levels of mild and moderate spinal canal stenosis. Moderate to severe bilateral neural foraminal stenosis from C3-C7. Salivary glands: There is a 1.2 cm soft tissue nodule in the right parotid gland image 39 series 3. Lungs: Lung apices are normal. Soft tissues: Unremarkable. IMPRESSION: 1. No acute fracture or malalignment of the cervical spine. 2. There is a 1.2 cm soft tissue nodule in the right parotid gland image 39 series 3. Recommend follow-up ultrasound as neoplasm is more likely than abnormal lymph node.
--- NOTE | 2025-06-29 17:49 | CT_ITS ---
PROCEDURE INFORMATION: Exam: CT Head Without Contrast Exam date and time: 06/29/2025 6:14 PM Age: 84 years old Clinical indication: Injury or trauma; Fall; Blunt trauma (contusions or hematomas); Additional info: Fall, head trauma TECHNIQUE: Imaging protocol: Computed tomography of the head without contrast. Radiation optimization: All CT scans at this facility use at least one of these dose optimization techniques: automated exposure control; mA and/or kV adjustment per patient size (includes targeted exams where dose is matched to clinical indication); or iterative reconstruction. COMPARISON: CT HEAD/BRAIN WO CON 05/24/2025 4:34 PM FINDINGS: Brain: Chronic bilateral basal ganglia lacunar infarctions. Moderate chronic brain volume loss and advanced chronic small vessel ischemic changes. Cerebral ventricles: No ventriculomegaly. Paranasal sinuses: Visualized sinuses are unremarkable. No fluid levels. Mastoid air cells: Visualized mastoid air cells are well aerated. Orbital cavities: Status post bilateral cataract surgery. Bones: Unremarkable. No acute fracture. Soft tissues: Unremarkable. IMPRESSION: No acute intracranial findings.
--- NOTE | 2025-06-29 17:49 | XR_ITS ---
PROCEDURE INFORMATION: Exam: XR Chest Exam date and time: 06/29/2025 6:19 PM Age: 84 years old Clinical indication: Injury or trauma; Fall; Blunt trauma (contusions or hematomas) TECHNIQUE: Imaging protocol: Radiologic exam of the chest. Views: 1 view. COMPARISON: CT ANGIO CHEST PE PROTOCOL 06/14/2025 12:49 AM FINDINGS: Lungs: No focal consolidation. Pleural spaces: No pneumothorax. Heart/Mediastinum: Unremarkable cardiomediastinal silhouette. Bones/joints: No acute osseous findings. IMPRESSION: No focal consolidation.
--- NOTE | 2025-06-29 17:49 | XR_ITS ---
PROCEDURE INFORMATION: Exam: XR Pelvis Exam date and time: 06/29/2025 6:19 PM Age: 84 years old Clinical indication: Injury or trauma; Fall; Blunt trauma (contusions or hematomas); Left; Prior surgery; Surgery date: 6+ months; Surgery type: Hip replacement; Additional info: Fall, left hip pain TECHNIQUE: Imaging protocol: Radiologic exam of the pelvis. Views: 1 or 2 view. COMPARISON: CT BONY PELVIS 06/29/2025 6:18 PM FINDINGS: Bones/joints: Left hip arthroplasty.No evidence of acute fracture. Soft tissues: No significant focal soft tissue swelling. IMPRESSION: Left hip arthroplasty.No evidence of acute fracture.
--- NOTE | 2025-06-29 17:50 | CT_ITS ---
PROCEDURE INFORMATION: Exam: CT Pelvis Without Contrast, Skeleton Exam date and time: 06/29/2025 6:18 PM Age: 84 years old Clinical indication: Injury or trauma; Fall; Blunt trauma (contusions or hematomas); Left; Prior surgery; Surgery date: 6+ months; Surgery type: Hip replacement; Additional info: Fall, left hip pain previous arthroplasty TECHNIQUE: Imaging protocol: Computed tomography of the pelvis without contrast. Exam focused on the skeleton. Radiation optimization: All CT scans at this facility use at least one of these dose optimization techniques: automated exposure control; mA and/or kV adjustment per patient size (includes targeted exams where dose is matched to clinical indication); or iterative reconstruction. COMPARISON: CT ABDOMEN PELVIS W CON 05/24/2025 4:48 PM FINDINGS: Intestine: Colonic diverticula Appendix: No CT evidence of acute appendicitis. Vasculature: Vascular calcifications. Reproductive: The uterus is present. Urinary bladder: Fluid in the urinary bladder. Bones/joints: Left hip arthroplasty. Evaluation the pelvis is limited due to metallic artifact from left hip arthroplasty. No evidence of acute fracture. Soft tissues: Limited evaluation due to lack of intravenous contrast. Ill-defined low-attenuation density adjacent to the left greater trochanter laterally measuring 4.2 cm, possibly bursitis, indeterminate. IMPRESSION: Limited evaluation due to lack of intravenous contrast. Ill-defined low-attenuation density adjacent to the left greater trochanter laterally measuring 4.2 cm, possibly bursitis, indeterminate. Correlate with MRI if no contraindications.No evidence of acute fracture.
--- NOTE | 2025-06-29 17:50 | XR_ITS ---
PROCEDURE INFORMATION: Exam: XR Left Femur Exam date and time: 06/29/2025 6:19 PM Age: 84 years old Clinical indication: Injury or trauma; Fall; Blunt trauma; Left; Prior surgery; Surgery date: 6+ months; Surgery type: Hip replacement; Additional info: Fall left hip pain previous arthroplasty TECHNIQUE: Imaging protocol: Radiologic exam of the left femur. Views: 2 views. COMPARISON: CR (FEMUR, FEMUR AP) 05/24/2025 4:51 PM FINDINGS: Bones/joints: Left hip arthroplasty. Soft tissue fullness adjacent to the left greater trochanter. No evidence of acute fracture. Soft tissues: See Bones/joints finding. Vasculature: vascular calcifications IMPRESSION: Left hip arthroplasty. Soft tissue fullness adjacent to the left greater trochanter. No evidence of acute fracture.
--- OUTSIDE RECORDS SUMMARY | 2025-06-29 17:54 | XMS_ITS | Encounter Summary ---
Author Organization Healthcare Address [address] [place] [address] Care Team Providers Care Portal Architect Name Role Phone Pcp, No Primary Care Provider Unavailabl e Encounter Details Date Type Department Care Team (Late st Contact Info) Description 05/12/2024 Orders Only External Location [address] [place] [address] Charlotte Jung, [address] [place] [address] Social History Tobacco Use Types [...] on filedocumented in this encounter Care Teams Portal Architect Relationship Specialty Start Date End Date Pcp, No [address] [place] [address] PCP - General Family Medicine 08/10/24 documented as of this encounter
--- OUTSIDE RECORDS SUMMARY | 2025-06-29 17:54 | XMS_ITS | Clinical Summary ---
Author Organization [facility] Address [address] [id number] Care Team Providers Care Excellence Leader Name Role Phone Pcp, No Primary Care [...] (one) time each day. Active nystatin (Mycostatin) 624781 UNIT/ML suspension Take 5 mL (500,000 Units) [...] or (1 - 1-dose 75+ series) 11/22/2015 [id number] Vaccine (1 - season) 2025 UKY-Influenza Vaccine [...] Patient has decision-making capacity? Yes Care Teams Excellence Leader Relationship Specialty Start Date End Date Pcp, No [address] [place] [address] PCP - General Family Medicine 08/10/24
--- OUTSIDE RECORDS SUMMARY | 2025-06-29 17:54 | XMS_ITS | Clinical Summary ---
Author Organization [facility] Address [address] [place] [address] Phone Care Team Providers Care Academic Program Specialist Name Role Phone Unavailable Primary Care Provider [...] melatonin 5 mg Oral TabletIndicatio ns:Resides in retirement facility Take 1 Tablet by mouth nightly as needed for Sleep. 025 Active Saccharomyces boulardii (FLORASTOR) 250 mg Oral CapsuleIndicati ons:Resides in retirement facility Take 1 Capsule by mouth 2 times daily. 60 Capsule Active cyanocobalamin 1,000 mcg/mL Inj SolutionIndicat ions:Other fatigue Inject 1 mL into the muscle every 30 days. 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 Pathologist [facility] Glucose Meter POC 125(H) 70 - 100 mg/dL 06/12/2025 8:14 AM EDT [facility] Sample Type Capillary 06/12/2025 8:14 AM EDT [facility] Patient Status Non-Critical Patient 06/12/2025 8:14 AM EDT [facility] Blood BLOOD SPECIMEN / Unknown 06/12/2025 8:13 AM EDT 06/12/2025 8:14 AM EDT Hugh Zamarripa MD POINT OF CARE TEST ORDER PEDRO LUIS Final Result [facility] [address] [place] [address] * (ABNORMAL) CBC (06/12/2025 5:33 AM EDT) Only the most recent of2 resultswithin the time period is included. WBC 7.9 3.7 - 10.3 x10(3)/mcL 06/12/2025 5:36 AM EDT [facility] RBC 3.76(L) 3.90 - 5.20 x10(6)/mcL 06/12/2025 5:36 AM EDT [facility] Hgb 11.3 11.2 - 15.7 g/dL 06/12/2025 5:36 AM EDT [facility] Hct 35.6 34.0 - 45.0 % 06/12/2025 5:36 AM EDT [facility] MCV 94.7 80.0 - 100.0 fL 06/12/2025 5:36 AM EDT [facility] MCH 30.1 26.0 - 34.0 pg 06/12/2025 5:36 AM EDT [facility] MCHC 31.7 30.7 - 35.5 g/dL 06/12/2025 5:36 AM EDT [facility] RDW 13.0 <=14.9 % 06/12/2025 5:36 AM EDT [facility] Platelet 366 155 - 369 x10(3)/mcL 06/12/2025 5:36 AM EDT [facility] MPV 8.8 8.8 - 12.5 fL 06/12/2025 5:36 AM EDT [facility] Blood VENOUS BLOOD / Unknown Venipuncture / Unknown 06/12/2025 5:33 AM EDT 06/12/2025 5:33 AM EDT Jennifer Fontana APRN HEMATOLOGY ORDERABLES Fi nal Result Performing Organization Address [facility] Co de Phone Number [facility] [address] [place] [address] * MAGNESIUM LEVEL (06/12/2025 5:33 AM EDT) Only the most recent of3 resultswithin the time period is included. Magnesium 1.7 1.6 - 2.4 mg/dL 06/12/2025 5:55 AM EDT [facility] Blood VENOUS BLOOD / Unknown Venipuncture / Unknown 06/12/2025 5:33 AM EDT 06/12/2025 5:33 AM EDT Jennifer Fontana APRN CHEMISTRY ORDERABLES Fin al Result Performing Organization Address [facility] de Phone Number [facility] [address] [place] [address] * (ABNORMAL) BASIC METABOLIC PANEL (06/12/2025 5:33 AM EDT) Only the most recent of6 resultswithin the time period is included. Sodium 144 136 - 145 mmol/L 06/12/2025 5:55 AM EDT [facility] Potassium 4.0 3.5 - 5.0 mmol/L 06/12/2025 5:55 AM EDT [facility] Chloride 108(H) 98 - 107 mmol/L 06/12/2025 5:55 AM EDT [facility] Total CO2 27 22 - 29 mmol/L 06/12/2025 5:55 AM EDT [facility] Anion Gap 9 7 - 16 mmol/L 06/12/2025 5:55 AM EDT [facility] Calcium 8.5(L) 8.8 - 10.4 mg/dL 06/12/2025 5:55 AM EDT [facility] Glucose Lvl 137(H) 70 - 99 mg/dL 06/12/2025 5:55 AM EDT [facility] BUN 14 8 - 23 mg/dL 06/12/2025 5:55 AM EDT [facility] Creatinine 0.64 0.51 - 1.30 mg/dL 06/12/2025 5:55 AM EDT [facility] eGFR (CKD-EPIcr 2020) 86 >=60 mL/min/1.7 3 m2 06/12/2025 5:55 AM EDT [facility] Comment:Estimated GFR was ca lculated using the CKD-EPIcr (2020) equation refit without race. The equation is recommended by the National Kidney Foundation - [place] [employer] Nephrology Task Force. Blood VENOUS BLOOD / Unknown Venipuncture / Unknown 06/12/2025 5:33 AM EDT 06/12/2025 5:33 AM EDT Jennifer Fontana APRN CHEMISTRY ORDERABLES Fin al Result Performing Organization Address [facility] Co de Phone Number [facility] [address] [place] [address] * EXTRA LAVENDER (06/11/2025 6:17 AM EDT) Blood VENOUS BLOOD / Unknown Venipuncture / Unknown 06/11/2025 6:17 AM EDT 06/11/2025 9:04 AM EDT Hugh Zamarripa MD HEMATOLOGY ORDERABLES Fi nal Result Performing Organization Address [facility] de Phone Number [facility] [address] [place] [address] * REPEAT LACTIC ACID (06/11/2025 6:17 AM EDT) Only the most recent of4 resultswithin the time period is included. Lactic Acid 1.9 0.5 - 1.9 mmol/L 06/11/2025 6:31 AM EDT [facility] Blood VENOUS BLOOD / Unknown Venipuncture / Unknown 06/11/2025 6:17 AM EDT 06/11/2025 6:17 AM EDT Hugh Zamarripa MD CHEMISTRY ORDERABLES Fin al Result [facility] [address] [place] [address] * BLOOD CULTURE (NO STAIN) (06/10/2025 5:21 PM EDT) Only the most recent of2 resultswithin the time period is included. Culture Result No Growth at 120 hours. BLOOD CULTURE (NO STAIN) 06/16/2025 11:00 AM EDT [facility] Blood VENOUS BLOOD / Unknown Venipuncture / Unknown 06/10/2025 5:21 PM EDT 06/10/2025 5:23 PM EDT us Jeninfer Fontana APRN MICROBIOLOGY - GENERAL O RDERABLES Final Result [facility] [address] [facility], [place] [address] * PROCALCITONIN (06/10/2025 11:52 AM EDT) Procalcitonin 0.08 <=0.49 ng/mL 06/10/2025 7:35 PM EDT [facility] Blood VENOUS BLOOD / Unknown Venipuncture / Unknown 06/10/2025 11:52 AM EDT 06/10/2025 12:00 PM EDT Narrative [facility] - 06/10/2025 7:35 PM EDT Procalcitonin <0.50 [...] ORDERABLES Fin al Result Performing Organization Address City/[facility]/ZIP Co de Phone Number [facility] [employer] [address], [address] [place], [place] [id number] * (ABNORMAL) LACTIC ACID (06/10/2025 11:52 AM EDT) Lactic Acid 2.1(H) 0.5 - 1.9 mmol/L 06/10/2025 12:13 PM EDT [facility] Blood VENOUS BLOOD / Unknown Venipuncture / Unknown 06/10/2025 11:52 AM EDT 06/10/2025 12:00 PM EDT Jennifer Fontana APRN CHEMISTRY ORDERABLES Fin al Result Performing Organization Address [facility] Co de Phone Number [facility] [address] [place] [address] * XR CHEST AP PORTABLE [...] UA Color Yellow 06/07/2025 9:08 PM EDT [facility] UA Appear Clear Clear 06/07/2025 9:08 PM EDT [facility] UA Glucose Negative Negative mg/dL 06/07/2025 9:08 PM EDT [facility] UA Ketones Negative Negative mg/dL 06/07/2025 9:08 PM EDT [facility] UA Blood Negative Negative 06/07/2025 9:08 PM EDT [facility] UA pH 6.0 5.0 - 8.0 pH 06/07/2025 9:[facility] Protein Trace(A) Negative mg/dL 06/07/2025 9:08 PM [facility] UA Urobilinogen 0.2 <=1 mg/dL 9:08 PM EDT [facility] UA Bili Negative Negative 06/07/2025 9:08 PM EDT [facility] UA Nitrite Negative Negative 06/07/2025 9:08 [facility] UA Leuk Est Small(A) Negative 06/07/2025 9:08 PM [facility] UA Spec Grav 1.025 1.001 - 1.035 no units 06/07/2025 9:08 PM [facility] Comment:Reference range tessie d for random specimens only. UA WBC 10(H) 0 - 4 /HPF 06/07/2025 9:08 PM EDT [facility] UA RBC 0 0 - 3 /HPF 06/07/2025 9:08 PM EDT [facility] UA Squam Epi 2+ /LPF 06/07/2025 9:08 PM EDT [facility] UA Mucus 2+ /LPF 06/07/2025 9:08 PM EDT [facility] UA Amorph 1+ /HPF 06/07/2025 9:08 PM EDT [facility] UA Bacteria Trace(A) Negative /HPF 06/07/2025 9:08 PM EDT [facility] Urine STRUCTURE OF URINARY TRACT PROPER / Unknown 06/07/2025 8:48 PM EDT 06/07/2025 8:59 PM EDT us Viral Sargent V, DO URINE ORDERABLES Final Result Performing Organization Address City/[facility] Co de Phone Number [facility] [address] [place] [address] * EXTRA LAUGHLIN URINE CX (06/07/2025 8:48 PM EDT) Urine STRUCTURE OF URINARY TRACT PROPER / Unknown 06/07/2025 8:48 PM EDT 06/07/2025 8:59 PM EDT us Viral Sargent V, DO MICROBIOLOGY - GENERAL ORDERAB LES Final Result Performing Organization Address [facility] Co de Phone Number [facility] [address] [place] [address] * (ABNORMAL) URINE CULTURE (NO STAIN) (06/07/2025 8:48 PM EDT) Culture Positive Growth(A) 06/10/2025 1:16 PM EDT [facility] Culture >100,000 CFU/mL Lactobacillus species SUSCEPTIB ILITY RESULT 06/10/2025 1:16 PM EDT [facility] Comment:No further workup. Culture 4,000 CFU/mL Ashley albicans SUSCEPTIB ILITY RESULT 06/10/2025 1:16 PM EDT [facility] Comment:No further workup. Urine STRUCTURE OF URINARY TRACT PROPER / Unknown 06/07/2025 8:48 PM EDT 06/07/2025 9:08 PM EDT us Viral Sargent V, DO MICROBIOLOGY - GENERAL ORDERAB LES Final Result [facility] [address] [facility] , [place] [address] * XR HIP LEFT AP LATERAL W [...] 3.7 - 10.3 x10(3)/mcL 06/07/2025 5:11 AM [facility] RBC 3.92 3.90 - 5.20 x10(6)/mcL 06/07/2025 5:11 AM [facility] Hgb 11.8 11.2 - 15.7 g/dL 06/07/2025 5:11 AM [facility] Hct 36.3 34.0 - 45.0 % 06/07/2025 5:11 AM [facility] MCV 92.6 80.0 - 100.0 fL 06/07/2025 5:11 AM [facility] MCH 30.1 26.0 - 34.0 pg 06/07/2025 5:11 AM [facility] MCHC 32.5 30.7 - 35.5 g/dL 06/07/2025 5:11 AM [facility] RDW 12.5 <=14.9 % 06/07/2025 5:11 AM [facility] Platelet 341 155 - 369 x10(3)/mcL 06/07/2025 5:11 AM [facility] MPV 9.0 8.8 - 12.5 fL 06/07/2025 5:11 AM [facility] Neut Percent 79.0 % 06/07/2025 5:11 AM [facility] Comment:Neutrophils equals s egs plus bands Imm Gran% 0.4 % 06/07/2025 5:11 AM [facility] Comment:Automated count of m etamyelocytes, myelocytes and promyelocytes. Lymph Percent 11.7 % 06/07/2025 5:11 AM [facility] Nicollet Percent 6.9 % 06/07/2025 5:11 AM [facility] Eos Percent 1.5 % 06/07/2025 5:11 AM [facility] Baso Percent 0.5 % 06/07/2025 5:11 AM [facility] Neut # 8.9(H) 1.6 - 6.1 x10(3)/mcL 06/07/2025 5:11 AM [facility] Comment:Neutrophils equals s egs plus bands IMMGRAN# 0.0 0.0 - 0.1 x10(3)/mcL 06/07/2025 5:11 AM EDT [facility] Comment:Automated count of m etamyelocytes, myelocytes and promyelocytes. An absolute IG <0.1 is reported as 0.0. Lymph # 1.3 1.2 - 3.9 x10(3)/mcL 06/07/2025 5:11 AM EDT [facility] Nicollet # 0.8 0.3 - 0.9 x10(3)/mcL 06/07/2025 5:11 AM EDT [facility] Eos# 0.2 0.0 - 0.5 x10(3)/mcL 06/07/2025 5:11 AM EDT [facility] Baso # 0.1 0.0 - 0.1 x10(3)/mcL 06/07/2025 5:11 AM EDT [facility] Blood VENOUS BLOOD / Unknown Venipuncture / Unknown 06/07/2025 5:09 AM EDT 06/07/2025 5:09 AM EDT us Viral Sargent V, DO HEMATOLOGY ORDERABLES Final Re sult [facility] [address] [place] [address] * PARTIAL THROMBOPLASTIN TIME (05/31/2025 4:43 PM EDT) PTT 31.8 25.7 - 36.8 second(s) 05/31/2025 4:58 PM EDT [facility] Comment: Therapeutic range for unfractionated [...] ORDERABLES Fi nal Result Performing Organization Address [facility] de Phone Number [facility] [address] [place] [address] * (ABNORMAL) PT / INR (05/31/2025 4:43 PM EDT) PT 13.7(H) 10.5 - 13.6 second(s) 05/31/2025 4:58 PM EDT [facility] INR 1.19(H) 0.91 - 1.18 (ratio) 05/31/2025 4:58 PM EDT [facility] Comment: Level of Therapy Indications Target INR Range Standard Dose Treatment and prophylaxis of venous 2.0 - 3.0 thrombosis, pulmonary embolism High Dose High risk patients with mechanical 2.5 - 3.5 heart valves Blood VENOUS BLOOD / Unknown Venipuncture / Unknown 05/31/2025 4:43 PM EDT 05/31/2025 4:47 PM EDT Hugh Zamarripa MD HEMATOLOGY ORDERABLES Fi nal Result Performing Organization Address [facility] de Phone Number [facility] [address] [place] [address] * CT ABDOMEN PELVIS HEMATURIA/RENAL MASS PROTOCOL [...] the ordering clinician. us Hugh Zamarripa MD [facility] [place] ORDERABLES Final Result * CREATININE ISTAT (05/30/2025 1:26 PM EDT) Creatinine-iST AT 0.9 0.6 - 1.3 mg/dL 05/30/2025 1:28 PM EDT [facility] Blood BLOOD SPECIMEN / Unknown 05/30/2025 1:26 PM EDT 05/30/2025 1:28 PM EDT Hugh Zamarripa MD POINT OF CARE TEST ORDER PEDRO LUIS Final Result [facility] [address] [place] [address] from Last 3 Months Insurance [place] Member Subscriber Plan / Payer (Ef fective 2005-Present) Name:Patricia Hills Relation to Subscriber:Self Name:Patricia Hills Payer ID:Not on file Group ID:Not on file Type:Not on file Address: [address] DUAL ADVANTAGE [facility] MEDICAID [place] [employer] DUAL ADVANTAGE O [facility] [place]ICAID [place] Advance Directives For more information, please contact: [phone] * Full Code (Latest Code Status on File) Date Activated Date Inactivated Comments 05/30/2025 6:09 AM 06/12/2025 3:25 PM
--- OUTSIDE RECORDS SUMMARY | 2025-06-29 17:54 | XMS_ITS | Data Portability ---
Author Organization [facility] [place] [facility] Address [address] [facility] [address] [place] [address] Care Team Providers Care Machine Operator Hop Picker Name Role Phone ALETHA ROBERTSON Nuclear Licensing Engineer SEN REICH JR General Surgeon MOOKIE PEREZ [...] arter y No observ ation record ed. [email or web address] [address], [place], [address], 06/21/2024 11:05:07 Result Notes None recorded. 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 2023 SEN REICH JR, MD [address] [place] [address], [address], [facility] 13:00:58 Tobacco dependence syndrome 89482820 Active 2023 SEN REICH JR, MD [address] [place] [address], [address], [facility] 13:01:13 Arthritis 2651311 Active 2023 [place] Stephanie [facility] 13:17:13 Hyperlipide alfonso 65684756 Active 2023 [facility] 13:17:27 Type 2 diabetes mellitus 09110679 Active 2023 [facility] 13:20:26 Nodule of lung 989655034 Active 2023 [place] [facility] 13:22:04 Calcificati on of coronary artery 785392350 Active 2023 [facility] 13:22:35 Vitamin D deficiency 10793707 Active 2023 [place] [facility] 13:22:53 Hypertensiv e disorder 50087095 Active 2023 [place] [facility] 13:23:11 Notes:thyroid nodule Problem Notes None recorded. Procedures Surgical History Date Name Laterality Status Provider Name and Address Organization Details Recorded Time Cholecystectomy completed [facility] 06/09/2024 13:16:44 Imaging Results None recorded. Procedure Notes None recorded. Medical Equipment None Reported. Allergies Allergen ID Allergen Name Allergen Category Reaction Reaction Severity Criticality Documentation Date Start Date Code Code System Note Provider Name and Address Organization Details Recorded Time 174844 Altocor medicatio n Not available Not available Not available 06/09/2024 04760 0 RxNorm Cecille Brown [facility] 11:57:40 541422 Product containin g penicilli n (product) medicatio n Not available Not available Not available 06/09/2024 34155 8001 SNOMED [facility] 11:57:51 234351 Lescol medicatio n Not available Not available Not available 06/09/2024 50984 2 RxNorm Cecille Brown null, [facility] 4 11:58:33 603029 Cipro medicatio n Not available Not available Not available 06/09/202449189 3 RxNorm Cecille Brown null, [facility] 4 11:58:41 291477 Levaquin medicatio n Not available Not available Not available 06/09/2024 17004 2 [facility] 11:58:52 292661 Medicinal product containin g nitrofura n derivativ e and acting as antibacte rial agent (product) medicatio n Not available Not available Not available 06/09/2024 53102 2000 SNOMED [facility] 12:28:38 032288 nitrofura ntoin medicatio n Not available Not available Not available 06/09/2024 7454 [facility] 12:00:55 419186 Macrobid medicatio n Not available Not available Not available 06/09/2024 18303 1 [facility] 12:01:01 715801 Avelox medicatio n Not available Not available Not available 06/09/2024 73005 6 RxNorm [facility]ruzito [facility] 4 12:01:10 258291 Ceclor medicatio n Not available Not available Not available 06/09/202453436 5 RxNorm Cecillecruzito Brown null, [facility] 4 12:01:20 467562 clarithro mycin medicatio n Not available Not available Not available 06/09/202435947 Rx[facility] 12:02:53 846660 Marcaine medicatio n Not available Not available Not available 06/09/2024 61515 97 Rx[facility] 12:03:30 026346 Kenalog medicatio n Not available Not available Not available 06/09/2024 7 [facility] 12:03:41 853442 Biaxin medicatio n Not available Not available Not available 06/09/2024 9 [facility] 12:04:25 267860 Invokana medicatio n Not available Not available Not available 06/09/2024 62433 64 RxNorm [facility] 12:06:11 586085 Keflex medicatio n Not available Not available Not available 06/09/202449349 7 [facility] 12:06:44 083523 hydrochlo rothiazid e medicatio n Not available Not available Not available 06/09/2024 5487 [facility] 12:07:37 137637 dexametha sone medicatio n Not available Not available Not available 06/09/2024 3264 RxNorm Cecille Brown [facility] 12:08:02 016158 erythromy sumaya medicatio n Not available Not available Not available 06/09/2024 4053 [facility] 12:08:29 506162 brompheni ramine Not available Not available Not available Not available 06/09/2024 1767 [facility] 12:[facility]:50 Medications Name Sig Start Date [...] 06/09/2024 157.48 cm 68 /min 128/69 mm[Hg] [facility] 06/09/2024 12:16:41 Social History None recorded. Functional Status None recorded. Mental Status None recorded. Family History Nothing Reported. Medical History Condition Response Diabetes Y Coronary Artery Disease N Thyroid Disease N Congestive Heart Failure (CHF) N Gallbladder Disease Y Stroke N Diverticulitis N Asthma N COPD Y Crohn's Disease N Colon Polyps N Liver Disease N Kidney Disease N Gynecological HistoryNo gynecological history recorded. Obstetrics History GPAL:G 0 P 0 0 0 0 Past Encounters Encounter ID Performer Location Encounter Start Date Encounter Closed Date Diagnosis/Indication Diagnosis SNOMED-CT Code Diagnosis ICD10 Code Diagnosis IMO Codes Diagnosis Note [id number] SEN REICH JR, MD GENERAL SURGERY [address] [place] [address] 06/09/2024 11:28:36 06/10/2024 10:23:50 Left carotid artery stenosis 2593150250 03592 I65.22 Asymptomat ic left carotid artery stenosis. Check carotid duplex scan.Jose Francisco nue aspirin PlavixCaro tid duplex scan at [facility] shows mild stenosis right and 50-69% stenosis left internal carotid artery. Repeat carotid duplex scan 6 months. Neoplasm o f parotid gland 199276479 D49.0 Benign on fine-needl e aspiration Tobacco de pendence syndrome 84925626 F17.200 Needs cessation Health Concerns Section Related Observation LastModified by Organization Detai ls LastModified Time None Recorded Concern Status LastModified by Organization Details LastModified Time None Recorded Advance Directives Directive None Recorded Payers Insurance Date Sequence Insurance Name Policy Number Policy Richards Covered Member ID Richards Member ID Guarantor Name 06/10/2024 1 [employer] (MEDICARE REPLACEMENT/ ADVANTAGE - HMO) [id number] Patricia Hills [id number] Patricia Hills 06/10/2024 2 MEDICAID-[facility] CHOICES - FFS/TRADITIO NAL Patricia Hills [id number] Patricia Hills Notes Date Note Type Note [...] memory loss SEN REICH JR, MD [address] [facility], [place], [address], [facility] 06/21/2024 08:37:58 OBGyn Episode No OBEpisode recorded.
--- OUTSIDE RECORDS SUMMARY | 2025-06-29 17:54 | XMS_ITS | Encounter Summary ---
Author Organization [facility] Address [address] [id number] Care Team Providers Care Independent Distributor Name Role Phone Pcp, No Primary Care Provider Unavailabl e Reason for Referral * Consultation (Urgent) - Authorized Specialty Diagnoses / Procedures Referred By Contact Referred To Contact Vascular Surgery / [facility] Diagnoses Stenosis of carotid artery, unspecified laterality Prasad León MD [facility] [place] [address] Phone: tel:[phone] fax:[phone] [facility] [address] [facility] [address] [place] [address] Phone: tel: fax: Referral ID Status Reason Start Date Expiration Date Visits Requested Visits Authorized [id number] Authorized Specialty Services Required 05/17/2024 11/16/2025 1 1 Encounter Details Date Type Department Care Team (Late st Contact Info) Description 05/17/2024 Community Orders Community Practice [address] [place] [address] Prasad León MD [address] [place] [address] Stenosis of carotid artery, unspecified [...] Primary documented in this encounter Care Teams Independent Distributor Relationship Specialty Start Date End Date Pcp, Sonal [address] [place] [address] PCP - General Family Medicine 08/10/24 documented as of this encounter
--- OUTSIDE RECORDS SUMMARY | 2025-06-29 17:54 | XMS_ITS | Encounter Summary ---
Author Organization Healthcare Address [address] [place] [address] Care Team Providers Care Cash Van Salesperson Name Role Phone Pcp, No Primary Care Provider Unavailabl e Encounter Details Date Type Department Care Team (Late st Contact Info) Description 05/12/2024 Orders Only External Location [address] [place] [address] Charlotte Jung, [address] [place] [address] Social History Tobacco Use Types [...] on filedocumented in this encounter Care Teams Cash Van Salesperson Relationship Specialty Start Date End Date Pcp, No [address] [place] [address] PCP - General Family Medicine 08/10/24 documented as of this encounter
[2025-06-29 18:15] LABS: Hematocrit 37.8 % (37.0-47.0); Hemoglobin 12.7 g/dL (12.2-16.2); Immature Granulocytes % 0.4 %; Mean Corpuscular HGB Conc 33.6 g/dL (31.8-35.4); Mean Corpuscular Hemoglobin 30.5 pg (27.0-31.2); Mean Corpuscular Volume 90.9 fl (81-99); Nucleated Red Blood Cells % 0 %; Platelet Count 339 K/mm3 (142-424); Red Blood Count 4.16 M/mm3 (4.20-5.40); Red Cell Distribution Width-SD 46.1 fL; White Blood Count 10.0 K/mm3 (4.8-10.8)
[2025-06-29 18:26] LABS: Albumin Level 2.9 g/dl (3.5-5.0); Chloride 100 mmol/L (98-107)
[2025-06-29 18:27] LABS: Potassium 3.6 mmoL/L (3.5-5.1); Sodium 137 mmol/L (136-145)
[2025-06-29 18:29] LABS: Alanine Aminotransferase 16 U/L (12-78); Aspartate Amino Transferase 26 U/L (14-36); Blood Urea Nitrogen 21 mg/dl (7-17); Creatinine Clearance Estimated 49 mL/min (50-200); Creatinine,Serum 0.90 mg/dl (0.52-1.04); Estimated Glomerular Filt Rate 60 ml/min (>60); GFR (African American) 72 ML/MIN (>60)
[2025-06-29 18:30] LABS: Albumin/Globulin Ratio 0.8 (1.1-1.8); Alkaline Phosphatase 125 U/L (38-126); Anion Gap 8.6 mEq/L (5-15); Bilirubin,Total 0.2 mg/dl (0.2-1.3); Calcium 9.0 mg/dl (8.4-10.2); Carbon Dioxide 32 mmol/L (22.0-30.0); Creatine Kinase 37 U/L (30-135); Globulin 3.7 g/dL (1.3-3.2); Glucose 159 mg/dl (74-100); Magnesium 1.1 mg/dl (1.6-2.3); Total Protein,Serum 6.6 g/dl (6.3-8.2)
--- NOTE | 2025-06-29 18:31 | ECG_ITS ---
APPROVED REPORT Exam: Resting ECG HR:74 bpm ECG Measurements Heart Rate 74 AXES OK 141 P 148 QRSd 81 QRS 45 QT 376 T 139 QTc 403 Conclusion Normal sinus rhythm without acute ST or T wave changes concerning for ischemia Electronically signed by : Morena Hansen, 06/30/2025 00:40:22
[2025-06-29] MEDS: ONDANSETRON 4MG/2ML VIAL 4 MG IV (18:33)
[2025-06-29 18:39] LABS: NT Pro Brain Natriuretic Pep. 954 pg/mL (0-450)
[2025-06-29 18:48] LABS: Troponin I < 0.01 ng/ml (0.00-0.034)
[2025-06-29 19:17] LABS: Bilirubin,Urine Negative (Negative); Color,Urine YELLOW (Yellow); Glucose,Urine (UA) Negative (Negative); Ketones,Urine Negative (Negative); Leukocyte Esterase,Urine Negative (Negative); Microscopic, Urine URINE MICROSCOPIC (MICROSCOPIC); PH,Urine 5.0 (5.0-8.5); Protein,Urine Negative (Negative); Specific Gravity, Urine 1.020 (1.005-1.030); Urobilinogen,Urine 0.2 EU/dl (0.2)
[2025-06-29 19:27] LABS: Bacteria,Urine Trace /lpf; Squamous Epithelial Cell,Urine Occasional #/hpf (0-5); WBC,Urine Occasional #/hpf (0-3)
[2025-06-29 19:33] VITALS: BP 154/56; PULSE 74; RESP 16; O2SAT 94
[2025-06-29] MEDS: MAGNESIUM SULFATE IN WATER 2 GM/50 ML PIGGYBACK IV (19:35)
[2025-06-29 19:41] VITALS: BP 154/56; PULSE 74; RESP 16; TEMP 37; O2SAT 94
--- OUTSIDE RECORDS SUMMARY | 2025-08-21 20:00 | XMS_ITS | Clinical Summary ---
Author Organization Unknown Care Team Providers Care Creative Services Manager Name Role Phone CHRIS CONTRACT SPECIALIST, MOOKIE Unavailable Unavailable ANN RN, HARMONY Unavailable Unavailable ANITA PT, BIJAL Unavailable Unavailable Payers Payer Name Policy Type Policy Number Effective Date Expira tion Date CARELON MY[employer] FOR [employer] MCR ADV [employer]ICA[place] [id number] Problems Condition Name Condition Details Condition Category [...] 2- 00:00: 00 06-11 23:59 :00 No [id number] BLOOD PRESSRUE 1 tablet DAILY 1 tablet DAILY (route: oral) Med Classific ation: Cardiovas cular Therapy Agents aspirin 81 mg tablet,art yed release 2023-08 2 00:00: 00 06-11 23:59 :00 No [id number] PREVENT STROKE 1 tablet DAILY 1 tablet DAILY (route: oral) Med Classific ation: Hematolog ical Agents glyburide 5 mg tablet 2023-08 2 00:00: 00 06-11 23:59 :00 No [id number] DIABETES 4 tablet DAILY 4 tablet DAILY (route: oral) Med Classific ation: Endocrine metformin 1,000 mg tablet 2023-08 00:00: 00 06-11 23:59 :00 No [id number] DIABETES 1 tablet 2 TIMES DAILY 1 tablet 2 TIMES DAILY (route: oral) Med Classific ation: Endocrine omeprazole 40 mg capsule,del ayed release 2023-08 00:00: 00 06-11 23:59 :00 No [id number] ACID REFLUX/ HEARTBURN 1 capsule DAILY 1 capsule DAILY (route: oral) Med Classific ation: Gastroint estinal Therapy Agents Plavix 75 mg tablet 2023-08 2 00:00: 00 06-11 23:59 :00 No [id number] BLOOD THINNER 1 tablet DAILY 1 tablet DAILY (route: oral) Med Classific ation: Hematolog ical Agents prednisone 20 mg tablet 2023-08 2 00:00: 00 08-04 23:59 :00 No [id number] STERIOD 2 tablet DAILY 2 tablet DAILY (route: oral) Med Classific ation: Endocrine rosuvastati n 5 mg tablet 2023-08 2- 00:00: 00 06-11 23:59 :00 No [id number] CHOLESTEROL 1 tablet DAILY 1 tablet DAILY (route: oral) Med Classific ation: Cardiovas cular Therapy Agents Trelegy Ellipta 100 mcg-62.5 mcg-25 mcg powder for inhalation 2023-08 2 00:00: 00 06-11 23:59 :00 No [id number] COPD 1 inhalat ion DAILY 1 inhalation DAILY (route: inhalation ) Med Classific ation: Respirato ry Therapy Agents trimethopri m 100 mg tablet 2023-08 2 00:00: 00 06-11 23:59 :00 No [id number] BACTERIAL INFECTION 1 tablet DAILY 1 tablet DAILY (route: oral) Med Classific ation: Anti-Infe ctive Agents Ventolin HFA 90 mcg/actuati on aerosol inhaler 2023-08 00:00: 00 06-11 23:59 :00 No [id number] SHORTNESS OF BREATH OR WHEEZING 2 puff NEEDED 2 puff NEEDED (route: inhalation ) Med Classific ation: Respirato ry Therapy Agents Vitamin D3 25 mcg (1,000 unit) tablet 2023-08 00:00: 00 06-11 23:59 :00 No [id number] VITAMIN D SUPPLEMENT 1 tablet DAILY 1 tablet DAILY (route: oral) Med Classific ation: Electroly te Balance-N utritiona l Products nystatin 100,000 unit/mL oral suspension 2023-08 00:00: 00 06-11 23:59 :00 No [id number] THRUSH 4 mL 4 TIMES DAILY 4 mL 4 TIMES DAILY (route: oral) Med Classific ation: Mouth-Thr oat-Denta l - Preparati ons buspirone 10 mg tablet 2023-08 00:00: 00 06-11 23:59 :00 No [id number] ANXIETY 1 tablet NEEDED 1 tablet NEEDED (route: oral) Med Classific ation: Central Nervous System Agents paroxetine 10 mg tablet 2023-08 00:00: 00 09-05 23:59 :00 No [id number] ANXIETY/DEP RESSION 1 tablet DAILY 1 tablet DAILY (route: oral) Med Classific ation: Central Nervous System Agents Vital Signs Vital Name Observation Time Observation Value Commen ts Temperature 2025-06-29 11:38:00.000 96.7 [degF] Temperature 2025-06-27 13:07:00.000 97.2 [degF] Temperature 2025-06-24 11:21:00.000 97.3 [degF] BMI (%) 2025-06-24 11:21:00.000 25 kg/m2 Height 2025-06-24 11:21:00.000 62 [in_us] Pulse 2025-06-29 11:38:00.000 64 /min Pulse 2025-06-27 13:07:00.000 65 /min Pulse 2025-06-24 11:21:00.000 57 /min O2 Saturation (%) 2025-06-29 11:38:00.000 97 % O2 Saturation (%) 2025-06-27 13:07:00.000 96 % O2 Saturation (%) 2025-06-24 11:21:00.000 94 % Respirations 2025-06-29 11:38:00.000 18 /min Respirations 2025-06-27 13:07:00.000 24 /min Respirations 2025-06-24 11:21:00.000 18 /min Weight (lbs) 2025-06-29 11:38:00.000 129.4 [lb_av] Weight (lbs) 2025-06-27 13:07:00.000 129.2 [lb_av] Weight (lbs) 2025-06-24 11:21:00.000 139 [lb_av] Systolic Blood Pressure 2025-06-29 11:38:00.000 123 mm [Hg] Systolic Blood Pressure 2025-06-27 13:07:00.000 142 mm [Hg] Systolic Blood Pressure 2025-06-24 11:21:00.000 122 mm [Hg] Diastolic Blood Pressure 2025-06-29 11:38:00.000 67 mm [Hg] Diastolic Blood Pressure 2025-06-27 13:07:00.000 [...] THE PLAN OF CARE.] Future Scheduled Test PSYCHOSOCI AL / COGNITIVE ASSESSMENT INDICATES THE FOLLOWING NEEDS: (SOCIAL, FINANCIAL, TRANSPORTATION, ADDITIONAL CARE PROVIDERS/ DISCIPLINES, REFERRALS TO OUTSIDE ENTITIES, ETC.). [code = PSYCHOSOCIAL / COGNITIVE ASSESSMENT INDICATES THE FOLLOWING NEEDS: (SOCIAL, FINANCIAL, TRANSPORTATION, ADDITIONAL CARE PROVIDERS/ DISCIPLINES, REFERRALS TO OUTSIDE ENTITIES, ETC.).] Future Scheduled Test SKILLED NU RSE TO [...] ASSISTANCE WITH MANAGING DEPRESSION.] Future Scheduled Test CLINICIAN TO EDUCATE PATIENT / CAREGIVER IN FALL PREVENTION AND PROVIDE INTERVENTIONS TO REDUCE FALL RISK AND ENHANCE HOME SAFETY [code = CLINICIAN TO EDUCATE PATIENT / CAREGIVER IN FALL PREVENTION AND PROVIDE INTERVENTIONS TO REDUCE FALL RISK AND ENHANCE HOME SAFETY] Future Scheduled Test SN REMOTE VIDEO VISIT(S) [...] AGENCY, PHYSICIAN OR 911.] Future Scheduled Test PATIENT/CA REGIVER WILL BE KNOWLEDGEABLE OF DISCHARGE PLANS AND WILL DEMONSTRATE/PROVIDE EDUCATION AND RESOURCES NEEDED TO MAINTAIN HEALTH. [code = PATIENT/CAREGIVER WILL BE KNOWLEDGEABLE OF DISCHARGE PLANS AND WILL DEMONSTRATE/PROVIDE EDUCATION AND RESOURCES NEEDED TO MAINTAIN HEALTH.] Future Scheduled Test AGENCY SHAWNA L DISCHARGE PATIENT TO PHYSICIAN/HEALTH CARE PROVIDER AND MAY ACCEPT ORDERS FROM THE FOLLOWING PHYSICIANS: DYAN VILLALPANDO [code = AGENCY WILL DISCHARGE PATIENT TO PHYSICIAN/HEALTH CARE PROVIDER AND MAY ACCEPT ORDERS FROM THE FOLLOWING PHYSICIANS: DYAN VILLALPANDO] Future Scheduled Test SKILLED NU RSE TO [...] DIAGNOSIS OF CHF, HYPERTENSION] Future Scheduled Test SKILLED NU RSE TO [...] REGIMEN, AND PERMITTED ACTIVITIES.] Future Scheduled Test INSTRUCT P ATIENT/CAREGIVER IN OXYGEN THERAPY INCLUDING ADMINISTRATION, CARE OF EQUIPMENT AND SAFETY. [code = INSTRUCT PATIENT/CAREGIVER IN OXYGEN THERAPY INCLUDING ADMINISTRATION, CARE OF EQUIPMENT AND SAFETY.] Future Scheduled Test SKILLED NU RSE FOR INSTRUCTIONS / REINFORCEMENT OF / MANAGEMENT OF DIABETES TO INCLUDE DIET, SKIN CARE, MEDICATION MANAGEMENT, BLOOD GLUCOSE TESTING AND DIABETIC FOOT CARE. [code = SKILLED NURSE FOR INSTRUCTIONS / REINFORCEMENT OF / MANAGEMENT OF DIABETES TO INCLUDE DIET, SKIN CARE, MEDICATION MANAGEMENT, BLOOD GLUCOSE TESTING AND DIABETIC FOOT CARE.] Future Scheduled Test SKILLED NU RSE TO FOCUS ON IDENTIFIED NEED FOR HIGH RISK MEDICATION INTERVENTION. [code = SKILLED NURSE TO FOCUS ON IDENTIFIED NEED FOR HIGH RISK MEDICATION INTERVENTION.] Future Scheduled Test PHYSICAL T HERAPIST TO [...] PHYSICIAN.] Future Scheduled Test SKILLED NU RSE FOR [...] AND PATIENT WELL BEING.] Future Scheduled Test 06/27/25 D ELAY PT, OT AND ST EVALS UNTIL WEEK OF 06/27 [code = 06/27/25 DELAY PT, OT AND ST EVALS UNTIL WEEK OF 06/27] Future Scheduled Test PHYSICAL T HERAPIST TO [...] AND RESOURCES NEEDED TO MAINTAIN HEALTH.] Goal Patient Goal - TO GET STRONG ER Goal Provider Goal - A PLAN OF CARE WILL BE ESTABLISHED THAT MEETS ALL PATIENT'S NURSING NEEDS AND COUNTERSIGNED BY PHYSICIAN. Goal Provider Goal - PATIENT/CAREGIVER WILL VERBALIZE/DEMONSTRATE ABILITY FOR THE PATIENT TO FUNCTION WITHIN THEIR COMMUNITY AND TO PARTICIPATE IN THE DEVELOPMENT AND IMPLEMENTATION OF THEIR CARE PLAN THROUGHOUT THE CERTIFICATION PERIOD Goal Provider Goal - PATIENT/CAREGIVER WILL VERBALIZE MEASURES TO COPE WITH DEPRESSION AND STATE SIGNS AND SYMPTOMS TO REPORT TO PHYSICIAN BY 08/22/25 Goal Provider Goal - PATIENT TO DEMONSTRATE REDUCED FALL RISK AND IMPROVE HOME SAFETY BY 08/02/25 Goal Provider Goal - THROUGH REMOTE VIDEO VISIT(S) EDUCATION WILL BE RECEIVED TOWARDS POC ORDERS/GOALS. PATIENT/CAREGIVER WILL VERBALIZE/DEMONSTRATE THE FOLLOWING INTERVENTIONS/PROCEDURES THAT WHERE EDUCATED Goal Provider Goal - PATIENT AND/OR CAREGIVER WILL BE IN AGREEMENT WITH DISCHARGE PLANS AND WILL VERBALIZE HAVING RESOURCES AND KNOWLEDGE TO MAINTAIN HEALTH. Goal Provider Goal - PATIENT WILL REMAIN SAFE AND NEEDS WILL BE MET BY COLLABORATING ON POC AND COMMUNICATING CHANGES IN POC AND CHANGES AFFECTING DISCHARGE PLAN WITH PATIENT, CAREGIVER, RECEIVING PHYSICIAN/HEALTH CARE PROVIDER, AND OTHER PHYSICIANS WRITING ORDERS ON THE POC THROUGHOUT CERTIFICATION PERIOD. Goal Provider Goal - CARDIOVASCULAR EXACERBATIONS WILL [...] BY 08/22/25 Goal Provider Goal - PATIENT WILL VERBALIZE AND DEMONSTRATE KNOWLEDGE OF MEASURES TO ENSURE ACCURATE AND SAFE ADMINISTRATION OF OXYGEN BY 08/22/25 Goal Provider Goal - PATIENT / CAREGIVER WILL VERBALIZE / DEMONSTRATE ADEQUATE KNOWLEDGE OF ENDOCRINE STATUS. GOAL TO BE MET BY 08/22/25 Goal Provider Goal - PATIENT/CAREGIVER DEMONSTRATES ABILITY TO ADHERE TO MEDICATION REGIMEN. GOAL TO BE MET BY 08/22/25 Goal Provider Goal - GOALS TO BE ESTABLISHED BY PHYSICAL THERAPIST DURING EVALUATION VISIT Goal Provider Goal - GOALS TO BE ESTABLISHED BY OCCUPATIONAL THERAPIST DURING EVALUATION VISIT Goal Provider Goal - GOALS TO BE ESTABLISHED BY SPEECH THERAPIST DURING EVALUATION VISIT Goal Provider Goal - PATIENT / CAREGIVER WILL VERBALIZE/DEMONSTRATE APPROPRIATE METHODS TO MAINTAIN/GAIN WEIGHT. GOAL TO BE MET BY 08/22/25 Goal Provider Goal - A PHYSICAL THERAPY [...] Date: 2024 by BIJAL HOWARD PT]:</paragraph><paragraph>PHYSICAL THERAPY EVAL FOR 84YO FEMALE PATIENT WHO FELL IN , FRACTURING HER L HIP. IRF. WHEN SHE CAME HOME, SHE WENT RIGHT BACK TO THE HOSPITAL FOR CHEST PAIN/CHF/NSTEMI. NEXT FU WITH PCP CONTRACT SPECIALIST MOOKIE PEREZ 07/11. </paragraph><paragraph>PATIENT LIVES ON MAIN FLOOR OF [place] [facility] [facility] WITH HER DAUGHTER, WHO LIVES IN BASEMENT LEVEL. 5 DENISSE. PLOF: AMB WITH RW, SLEEPING IN BED, USE OF TOILET, SPONGEBATHING. CLOF: USE OF MANUAL WC, RW FOR SHORT DISTANCES, SLEEPING IN BED, USE OF TOILET (DEPENDS FOR BOWEL INCONTINENCE), SPONGEBATHING. PATIENT GOALS: TAKE A SHOWER, STAIRS TO EXIT HOUSE, PAIN. </paragraph><paragraph>TODAY, SHE REPORTS 0/10 PAIN AT REST BUT UP TO 8/10 LOW BACK AND L HIP PAIN WITH ACTIVITY. SHE DENIES NEW FALLS, REPORTS 3 FALLS WITH INJURY IN THE PAST YEAR. </paragraph><paragraph>PMH INCLUDES: COPD, CHF, DM2, HTN, LUMBAR DDD</paragraph><paragraph></paragraph><paragraph>MS JOHNSON DEMONSTRATES DEFICITS IN PAIN, STRENGTH, TRANSFERS, AMB, AND AEROBIC CAPACITY RELATED TO CHF AND COPD, L HIP FRACTURE. PT DEMONSTRATES DEFICITS IN: FUNCTIONAL STRENGTH ( EVIDENCED BY 30 SEC CHAIR STAND TEST SCORE OF 0/8) AND BALANCE ( EVIDENCED BY TINETTI SCORE OF 12/28). SHE REQUIRES MIN ASSIST FOR SAFE TRANSFERS AND AMB IN THE HOME AND IS AT RISK FOR FALLS. BEDRAIL RECOMMENDED. HEP INITIATED IN SUPINE, SHE IS UNABLE TO PERFORM SLR ON LEFT. PT WILL BENEFIT FROM CONTINUED IN-HOME SKILLED PHYSICAL THERAPY TO ADDRESS ABOVE DEFICITS AND REACH ABOVE GOALS, INCREASING SAFETY AND INDEPENDENCE IN THE HOME, AND DECREASING CG BURDEN. UNABLE TO ATTEND OUTPATIENT THERAPY DUE TO WEAKNESS PARRY AND FALL RISK. PROGNOSIS IS GOOD: LIMITED BY COMORBIDITIES, ENHNACED BY GOOD SOCIAL SUPPORT. TO CONTINUE 2WK1 1WK8. VERBAL ORDERS REQUESTED FROM MOOKIE PEREZ.</paragraph> <paragraph>[Visit Date: 2024 by BIJAL HOWARD PT]:</paragraph><paragraph>PHYSICAL THERAPY FOLLOW UP VISIT. PATIENT REPORTS A FALL 2 DAYS AGO, FROM WC TO FLOOR. OT CAME LATER THAT DAY AND ADJUSTED HER WC, TOOK OFF FOOT RESTS AND MADE BRAKES EASIER FOR HER TO USE. TODAY SHE REPORTS 6/10 LLE PAIN WITH WB, RELIEVED TO 0/10 WITH NWB. AGREEABLE TO THERAPY TX TODAY. </paragraph><paragraph></paragraph><paragraph>MS JOHNSON TOLERATED PHYSICAL THERAPY WELL TODAY EVIDENCED BY STABLE VITAL SIGNS, NO LOB WITH AD USE AND CGA, NO PARRY. PATIENT DEMONSTRATES CGA-MIN ASSIST FOR SAFE TRANSFERS AND CGA FOR SAFE AMB IN THE HOME. ABLE TO TOLERATE GAIT TRAINING X60, X40 FT AND SUPINE BLE STRENGTH THEREX. EDUCATED IN PAIN-FREE RANGES AND FALL PREVENTION. PATIENT DEMONSTRATES IMPROVED SIT TO SUPINE AND SIT TO STAND COMPARED TO LAST VISIT. CONTINUED DEFICITS IN SUPINE TO SIT, LLE STRENGTH AND PAIN. UNABLE TO ATTEND OUTPATIENT THERAPY DUE TO WEAKNESS, PARRY, FALL RISK. TO CONTINUE ONCE WEEKLY TO PROGRESS TOWARD GOALS EDUCATE AND ASSESS. HEP REVIEWED AND UPDATED, ALL QUESTIONS ANSWERED. NEXT VISIT TO PROGRESS STRENGTH, TRANSFER, AMB TRAINING PIERRE.</paragraph> Encounters Start Date/Time End Date/Time Encounter Type Admission Type Attending Clinicians [facility] Facility Care Department Encounter ID Discharge Date Discharge Status Discharge Condition Discharge Reason Percent Goals Met 2025-06-24 00:00:00 2025-08-22 00:00:00 Outpatient NEW ADMISSION HARMONY JUAREZ [facility] [id number]
== END 2025-06-29 20:08 | disposition home or self-care (01) ==
PROVIDERS: Physician Assistant; Emergency Provider Student in an Organized Health Care Education/Training Program; PCP Nurse Practitioner
DX: E83.42 Hypomagnesemia (principal); M25.552 Pain in left hip; R11.0 Nausea; R29.6 Repeated falls; W18.30XA Fall on same level, unspecified, initial encounter; Z96.642 Presence of left artificial hip joint
CPT/HCPCS: 70450; 71045; 72125; 72170; 72192; 73552; 80053; 81001; 82550; 83735; 83880; 84484; 85025; 93005; 96365; 96375; 99285; J2405; J3475

== ENCOUNTER 2025-07-03 14:00 | Outpatient (CLI) | payer MEDICARE, MEDICAID, SELFPAY ==
--- OUTSIDE RECORDS SUMMARY | 2025-05-29 16:44 | XMS_ITS | Encounter Summary ---
Author Organization [place] [address] Care Team Providers Care Ticket Printer Name Role Phone Unavailable Primary Care Provider Unavailabl e Reason for Visit * Auth/Cert/Inpt Specialty Diagnoses / Procedures Referred By Francisco J walter Referred To Contact Diagnoses Fracture Referral ID Status Reason Start Date Expiration Date Visits Re quested Visits Authorized [id number] 1 1 Encounter Details Date Type Department Care Team (Latest Contact Info) Description 05/29/2025 5:44 PM EDT - 06/12/2025 11:24 AM EDT Hospital Encounter [facility] [address] [place] [id number] Hugh Zamarripa MD [address] [place] [address] 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 (Primary Dx); Resides in senior care facility; Pneumonia due to infectious organism, unspecified laterality, unspecified part of lung; Closed fracture of left femur with routine healing, unspecified fracture morphology, unspecified portion of femur, subsequent encounter; Type 2 diabetes mellitus without complication, without long-term current use of insulin (HCC); Prophylactic measure; Thrush; Excoriation; Acute cystitis without hematuria; Other fatigue; Hemorrhoids, unspecified hemorrhoid type; Hypokalemia; Elevated lactic acid level; Hypomagnesemia; Lactic acid blood increased Discharge Disposition: Home or Self Care Social History Tobacco Use Types Packs/Day Years Used Date Smoking Tobacco: Never Assessed Comments Unknown Sex and Gender Information Value Date Recorded Sex Assigned at Not on file Legal Sex Female 4:52 AM EDT Gender Identity Not on file Sexual Orientation Not on file documented as of this encounter Last Filed Vital Signs Vital Sign Reading Time Taken Comments Blood Pressure 156/54 06/12/2025 8:11 AM EDT Pulse 72 06/12/2025 8:21 AM EDT Temperature 36.6 C (97.9 F) 06/12/2025 8:11 AM EDT Respiratory Rate 20 06/12/2025 8:21 AM EDT Oxygen Saturation 100% 06/12/2025 8:21 AM EDT Inhaled Oxygen Concentration - - Weight 61.6 kg (135 lb 12.9 oz) 06/05/2025 6:33 PM EDT Height 157.5 cm (5' 2 ) 05/29/2025 6:01 PM EDT Body Mass Index 24.84 05/29/2025 6:01 PM EDT documented in this encounter Functional Status * Cognitive and Functional Status Question Answer Date of Assessment Author Is the person deaf or does he/she have serious difficulty hearing? No 06/12/2025 9:42 AM EDT Sabina Khan RN Is the person blind or does he/she have serious difficulty seeing even when wearing glasses? No 06/12/2025 9:42 AM EDT Sabina Khan RN Does this person have seriou s difficulty walking or climbing stairs? Yes 06/12/2025 9:42 AM EDT Sabina Khan RN Does this person have difficulty dressing or bathing? Yes 06/12/2025 9:42 AM EDT Riki Squires RN * Alcohol Screening Score Answer Date of Assessment Author 0 05/30/2025 7:00 AM EDT Joanna Galloway RN * Drug Screening Score Answer Date of Assessment Author 0 05/30/2025 7:00 AM EDT Joanna Galloway RN * Question Answer Date of Assessment Author How often do you have a drin k containing alcohol? 0 05/30/2025 7:00 AM Joanna José RN How many drinks containing alcohol do you have on a typical day when you are drinking? 0 05/30/2025 7:00 AM Joanna José RN How often do you have six or more drinks on one occasion? 0 05/30/2025 7:00 AM Joanna José RN AUDIT-C to Determine Rows 4-10 0 05/30/2025 7:00 AM Joanna José RN * Is the person deaf or does he/she have serious difficulty hearing? Answer Date of Assessment Author No 06/12/2025 9:42 AM Riki Castellanos RN * Is the person blind or does he/she have serious difficulty seeing even when wearing glasses? Answer Date of Assessment Author No 06/12/2025 9:42 AM Riki Castellanos RN * Does this person have serious difficulty walking or climbing stairs? Answer Date of Assessment Author Yes 06/12/2025 9:42 AM Riki Castellanos RN * Does this person have difficulty dressing or bathing? Answer Date of Assessment Author Yes 06/12/2025 9:42 AM Riki Castellanos RN * Because of a physical, mental or emotional condition, does this person have difficulty doing errands alone such as visiting a doctor's office or shopping? Answer Date of Assessment Author Yes 06/12/2025 9:42 AM Riki Castellanos RN * Suicide Severity Rating Answer Date of Assessment Author No Risk 05/29/2025 10:33 PM Paradise Ha RN * [place] Suicide Severity Rating Scale (Q shift for moderate and high) Question Answer Date of Assessment Author 1. In the past month, have y ou wished you were or wished you could go to sleep and not wake up? 0 05/29/2025 10:33 PM Paradise Ha Ra, RN 2. In the past month, have y ou actually had any thoughts of killing yourself? (If no, skip to question 6) 0 05/29/2025 10:33 PM Paradise Ha Ra, RN 6. Have you ever done anything, started to do anything, or prepared to do anything to end your life? 0 05/29/2025 10:33 PM Jefry Ha RN documented as of this encounter Mental Status * Cognitive and Functional Status Question Answer Entry Date Author Because of a physical, menta l or emotional condition, does this person have difficulty doing errands alone such as visiting a doctor's office or shopping? Yes 06/12/2025 9:42 AM Sabina Castellanos, RN Because of a physical, menta l or emotional condition, does this person have serious difficulty concentrating, remembering or making decisions? Yes 06/12/2025 9:42 AM Sabina Castellanos, RN * Because of a physical, mental or emotional condition, does this person have serious difficulty concentrating, remembering or making decisions? Answer Entry Date Author Yes 06/12/2025 9:42 AM Riki Castellanos, SANTOS documented in this encounter Discharge Summaries * Hugh Zamarripa MD - 06/12/2025 6:[address] 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 Patient admitted to [facility] for senior care and rehab, noted in hospital to have pneumonia and still on Levaquin every 48 hours, noted to have mass of left adrenal gland and of left kidney. CAT scan on May 30 showed a 13 mm left kidney upper lobe mass 17 mm left adrenal adenoma and recommended MRI of abdomen with and without contrast-patient refused MRI. Patient met rehab goals and will be discharged home asked to follow-up with orthopedics and her primary care doctor for her left hip fracture and abnormalities on CAT scan of abdomen. Procedures Performed: None Consults: Pending Labs Order Current Status Collection Date and Time BLOOD CULTURE (NO STAIN) Preliminary result 06/10/2025 5:21 PM BLOOD CULTURE (NO STAIN) Preliminary result 06/10/2025 5:21 PM Discharge Exam: BP (!) 170/60 (BP Location: Left arm, Patient Position: Semi Fowlers) Pulse 84 Temp 97.3 ??F (36.3 ??C) (Oral) Resp 18 Ht 5' 2 (1.575 m) Wt 135 lb 12.9 oz (61.6 kg) SpO2 94% BMI 24.84 kg/m?? General Appearance: Alert, cooperative, no distress, appears stated age Head: Normocephalic, without obvious abnormality, atraumatic Eyes: PERRL, conjunctiva/corneas clear, EOM's intact, fundi benign, both eyes Ears: Normal TM's and external ear canals, both ears Nose: Nares normal, septum midline, mucosa normal, no drainage or sinus tenderness Throat: Lips, mucosa, and tongue normal; teeth and gums normal Neck: Supple, symmetrical, trachea midline, no adenopathy; thyroid: no enlargement/tenderness/nodules; no carotid bruit or JVD Back: Symmetric, no curvature, ROM normal, no CVA tenderness Lungs: Clear to auscultation bilaterally, respirations unlabored Chest Wall: No tenderness or deformity Heart: Regular rate and rhythm, S1 and S2 normal, no murmur, rub or gallop Breast Exam: No tenderness, masses, or nipple abnormality Abdomen: Soft, non-tender, bowel sounds active all four quadrants, no masses, no organomegaly Extremities: L hip tenderness and DROM Pulses: 2+ and symmetric all extremities Skin: Skin color, texture, turgor normal, no rashes or lesions Lymph nodes: Cervical, supraclavicular, and axillary nodes normal Neurologic: CNII-XII intact, normal strength, sensation and reflexes throughout Discharge Diagnoses: Fractured hip, left, closed, initial encounter ([facility]) Condition at Discharge: stable Disposition: Home Discharge Medications:: Medication List START taking these medications cyanocobalamin 1,000 mcg/mL Soln Dose: 1,000 mcg Qty: 10 mL Refills: 0 1,000 mcg, Intramuscular, DAILY insulin glargine U-100 100 unit/mL Soln Dose: 10 Units Qty: 10 mL Refills: 0 Commonly known as: LANTUS 10 Units, Subcutaneous, EVERY EVENING (INSULIN) magnesium oxide 400 mg (241.3 mg magnesium) Tab Dose: 400 mg Qty: 60 Tablet Refills: 0 Commonly known as: MAG-OX 400 mg, Oral, 2 TIMES DAILY melatonin 5 mg Tab Dose: 5 mg Refills: 0 5 mg, Oral, NIGHTLY PRN Saccharomyces boulardii 250 mg Cap Dose: 250 mg Qty: 60 Capsule Refills: 0 Commonly known as: FLORASTOR 250 mg, Oral, 2 TIMES DAILY CHANGE how you take these medications VENTOLIN INHL Dose: 4 Puff Refills: 0 What changed: how much to take when to take this reasons to take this CONTINUE taking these medications albuterol-ipratropium 3 mg-0.5 mg(2.5 mg base)/3 mL Nebu Dose: 3 mL Refills: 0 Commonly known as: DUO-NEB aspirin 81 mg Chew Dose: 81 mg Refills: 0 cholecalciferol (vitamin D3) 25 mcg (1,000 unit) Tab Dose: 1,000 Units Refills: 0 citalopram 10 mg Tab Dose: 5 mg Refills: 0 Commonly known as: CeleXA clopidogreL 75 mg Tab Dose: 75 mg Refills: 0 Commonly known as: PLAVIX HYDROcodone-acetaminophen 5-325 mg Tab Dose: 1 Tablet Refills: 0 Commonly known as: NORCO irbesartan 300 mg Tab Dose: 300 mg Refills: 0 Commonly known as: AVAPRO metFORMIN 500 mg ER 24 hr tablet Dose: 500 mg Qty: 60 Tablet Refills: 0 Commonly known as: GLUCOPHAGE XR 500 mg, Oral, 2 TIMES DAILY WITH MEALS metoprolol 25 mg Tab Dose: 25 mg Refills: 0 Commonly known as: LOPRESSOR pantoprazole 40 mg Tbec Dose: 40 mg Refills: 0 Commonly known as: PROTONIX rosuvastatin 5 mg Tab Dose: 5 mg Refills: 0 Commonly known as: CRESTOR STOP taking these medications levoFLOXacin 750 mg Tab Commonly known as: LEVAQUIN Where to Get Your Medications These medications were sent to [id number] [place] [address] - [address] [facility] [phone] [address] [facility] [address] cyanocobalamin 1,000 mcg/mL Soln insulin glargine U-100 100 unit/mL Soln magnesium oxide 400 mg (241.3 mg magnesium) Tab metFORMIN 500 mg ER 24 hr tablet Saccharomyces boulardii 250 mg Cap You can get these medications from any pharmacy You don't need a prescription for these medications melatonin 5 mg Tab Follow Up: No follow-up provider specified. Signed: Hugh Zamarripa MD 06/12/2025 6:57 AM documented in this encounter Medications at Time of Discharge albuterol sulfate (VENTOLIN INHL) Inhale 4 Puffs into the lungs daily. albuterol-ipratro pium (DUO-NEB) 3 mg-0.5 mg(2.5 mg base)/3 mL Inhl Solution for Nebulization Take 3 mL by nebulization every 6 hours. aspirin 81 mg Oral Tablet, Chewable Take 81 mg by mouth daily. cholecalciferol, vitamin D3, 25 mcg (1,000 unit) Oral Tablet Take 1,000 Units by mouth daily. citalopram (CELEXA) 10 mg Oral TabletIndications :major depressive disorder Take 5 mg by mouth 2 times daily. Indications: major depressive disorder clopidogreL (PLAVIX) 75 mg Oral Tablet Take 75 mg by mouth daily. cyanocobalamin 1,000 mcg/mL Inj SolutionIndicatio ns:Other fatigue Inject 1 mL into the muscle every 30 days. 1 mL 06/12/2025 HYDROcodone-aceta minophen (NORCO) 5-325 mg Oral Tablet Take 1 Tablet by mouth every 4 hours as needed for Acute Pain (R52). insulin glargine U-100 (LANTUS) 100 unit/mL SubQ SolutionIndicatio ns:Type 2 diabetes mellitus without complication, without long-term current use of insulin (HCC) Inject 10 Units under the skin every evening. 10 mL 06/12/2025 irbesartan (AVAPRO) 300 mg Oral Tablet Take 300 mg by mouth daily. magnesium oxide (MAG-OX) 400 mg (241.3 mg magnesium) Oral TabletIndications :Hypomagnesemia Take 1 Tablet by mouth 2 times daily. 60 Tablet 06/12/2025 melatonin 5 mg Oral TabletIndications :Resides in senior care facility Take 1 Tablet by mouth nightly as needed for Sleep. 06/12/2025 metFORMIN (GLUCOPHAGE XR) 500 mg Oral ER 24 hr tabletIndications :type 2 diabetes mellitus Take 1 Tablet by mouth 2 times daily (with meals). Indications: type 2 diabetes mellitus 60 Tablet 06/12/2025 metoprolol (LOPRESSOR) 25 mg Oral TabletIndications :hypertension Take 25 mg by mouth 2 times daily. Indications: high blood pressure pantoprazole (PROTONIX) 40 mg Oral Tablet, Delayed Release (E.C.)Indications :heartburn Take 40 mg by mouth daily. Indications: heartburn rosuvastatin (CRESTOR) 5 mg Oral Tablet Take 5 mg by mouth nightly. Saccharomyces boulardii (FLORASTOR) 250 mg Oral CapsuleIndication s:Resides in senior care facility Take 1 Capsule by mouth 2 times daily. 60 Capsule 06/12/2025 documented as of this encounter Ordered Prescriptions Prescription Sig Dispense Quantity Refills Last Filled Start Date End Date cyanocobalamin 1,000 mcg/mL Inj SolutionIndication s:Other fatigue Inject 1 mL into the muscle every 30 days. 1 mL 06/12/2025 Saccharomyces boulardii (FLORASTOR) 250 mg Oral CapsuleIndications :Resides in senior care facility Take 1 Capsule by mouth 2 times daily. 60 Capsule 06/12/2025 melatonin 5 mg Oral TabletIndications: Resides in senior care facility Take 1 Tablet by mouth nightly as needed for Sleep. 06/12/2025 magnesium oxide (MAG-OX) 400 mg (241.3 mg magnesium) Oral TabletIndications: Hypomagnesemia Take 1 Tablet by mouth 2 times daily. 60 Tablet 06/12/2025 insulin glargine U-100 (LANTUS) 100 unit/mL SubQ SolutionIndication s:Type 2 diabetes mellitus without complication, without long-term current use of insulin (HCC) Inject 10 Units under the skin every evening. 10 mL 06/12/2025 metFORMIN (GLUCOPHAGE XR) 500 mg Oral ER 24 hr tabletIndications: type 2 diabetes mellitus Take 1 Tablet by mouth 2 times daily (with meals). Indications: type 2 diabetes mellitus 60 Tablet 06/12/2025 cyanocobalamin 1,000 mcg/mL Inj SolutionIndication s:Other fatigue Inject 1 mL into the muscle daily. 10 mL 06/12/2025 documented in this encounter Discharge Disposition Disposition Code Departure Means Destination Comment s Home or Self Group Home documented in this encounter Progress Notes * Amie Weller, PT - 06/12/2025 11:24 AM EDT 06/12/25 1629 SNF PT Subjective Note Type Discharge Mobility - Actual Discharge (Therapies) Sit to stand 4-Supv Chair/Cmy-rg-oofqc transfer 4-Supv Walk 10 Feet 4-Supv Walk 50 feet with two turns 3-Partial Goals Will Perform Supine To Sit Partly met Will Perform Sit to Supine Not met Will Perform Sit to Stand Met Will Transfer Bed/Chair Met Will Ambulate Met Will Tolerate Exercise Met Plan Treatment/Interventions Discharge from Acute Care Physical Therapy PT Frequency Complete Recommendation PT Recommendation Low frequency therapy with intensity appropriate for patient need recommended.;24-hour supervision/assist with low frequency therapy with intensity appropriate for patient need. * Stephany Lopez LPN - 06/11/2025 11:02 PM EDT Pain in hip at shift change, PRN pain med given, 2199 tylenol held as patient was sleeping comfortably. No abnormal behavior so far this shift. Call light in reach, will continue to observe. * Janet Porras RN - 06/11/2025 6:39 PM EDT Pt very drowsy this AM, reinforcements done to help pt awaken and eat breakfast. Pt confused/forgetful, wanted to go home today, reminded she's not going home until tomorrow, per pt You better get me out of here today or I'll call the police! I'm sorry we've come down to this, we're not friends anymore! . Reminded that ortho appt is not until tomorrow and I will let her speak with daughter Kylah. Kylah called and spoke with pt. CUSTOM TAILOR APPRENTICE notified and aware. Pt up in the chair this afternoon. Pt seemed better with the confusion this afternoon/evening. Vitals WNL and no complaints of shortness ofbreath today. Will keep monitoring. * Stephany Lopez LPN - 06/11/2025 1:27 AM EDT Patient refused to let staff draw blood for Lactic acid. * Stephany Lopez LPN - 06/11/2025 12:42 AM EDT Patient very agitated at staff, she thinks she is home and we let her sleep, I attempted to re-orient, but just got more agitated with, she told to get out and don't come back, and turn all the lights out. Encouraged her to call light for needs and assistance, will continue to observe. * Stephany Lopez LPN - 06/10/2025 11:55 PM EDT Lactic acid down to 2.3. * Larissa Ruff RN - 06/10/2025 10:21 PM EDT Patient's orders acknowledged and IV bolus started. Will obtain lactic acid lab when bolus infused. * Larissa Ruff RN - 06/10/2025 10:09 PM EDT Message sent per secure chat of increased lactic acid ti Idalmis Theodore NP. Per RAVI Mitchell, patient does not want to be stuck anymore. Will await further orders. * Stephany Lopez LPN - 06/10/2025 9:43 PM EDT Patient does not want labs drawn, does not want to be stuck anymore. * Janet Porras RN - 06/10/2025 6:44 PM EDT Up in the chair for breakfast this morning, alert with intermittent confusion. Pt noted weak today.Pt complained of shortness of breath this morning, vitals WNL, lungs clear/diminished. No chest pain noted. RT notified, pt received tx. Pt's daughter is worried pt might have pneumonia again. Per daughter pt had a pneumonia prior to being admitted here. CUSTOM TAILOR APPRENTICE notified with orders for CXR and labs. Lactic acid 2.1, pt encouraged oral fluids, repeat lactic acid after 2 hours is 3.2, received ordered for fluids and nursing communication order to: Repeat lactic acid 2 hours after starting IV fluids and then every 2 hours until lactic acid normalize. IV fluids started as ordered. Will keep monitoring. * Jennifer Fontana APRN - 06/10/2025 5:21 PM EDTAssociated Problem(s): Fractured hip, left, closed, initial encounter (HCC) -s/p surgery 05/26 for left hip fracture -Asked to evaluated 06/03 d/t increased pain L hip this AM -D/w patient - notes that she just received a dose of tylenol and is feeling much better. She reports prior bad experience with narcotics and prefers to avoid. Typically avoids NSAIDs d/t GI side effects when she takes. -Continue tylenol. Add heating pad prn. * Jennifer Fontana APRN - 06/10/2025 5:21 PM EDTAssociated Problem(s): Type 2 diabetes mellitus without complication, without long-term current useof insulin (HCC) -BG stable; fasting glucose 106 06/10 -Lantus, metformin, insulin calculator * Jennifer Fontana APRN - 06/10/2025 5:21 PM EDTAssociated Problem(s): Essential hypertension -BP stable 145/57 -Continue losartan * Jennifer Fontana APRN - 06/10/2025 5:21 PM EDTAssociated Problem(s): Shortness of breath Patient reports feeling SOB to daughter 06/10 in am Daughter concerned for PNA CXR 06/10 no acute findings. Lactic elevated 2.1>32. Procalcitonin pending Blood Cx ordered NS @ 125 ml initiated * Jennifer Fontana APRN - 06/10/2025 3:36 PM EDTAssociated Problem(s): Coronary artery disease involving kobuk coronary artery of kobuk heart with out angina pectoris -No chest pain 06/03 -Continue ASA, statin, BB * Jennifer Fontana APRN - 06/10/2025 3:36 PM EDTAssociated Problem(s): Adrenal adenoma, left -Stable * Jennifer Fontana APRN - 06/10/2025 3:36 PM EDTAssociated Problem(s): Left renal mass -Noted patient refused further workup/imaging at this time * Jennifer Fontana APRN - 06/10/2025 3:36 PM EDTAssociated Problem(s): Left lower lobe pulmonary nodule -Repeat CT 6-12 months outpatient * Jennifer Fontana APRN - 06/10/2025 3:36 PM EDTAssociated Problem(s): Hypokalemia K 3.2 Replete and recheck Trend * Jennifer Fontana APRN - 06/10/2025 3:36 PM EDTAssociated Problem(s): Hypomagnesemia Mg 1.3 Replete and recheck * Jennifer Fontana APRN - 06/10/2025 3:34 PM EDT PROGRESS NOTE Admitted on 05/29/2025 : Assessment/Plan: Assessment & Plan Fractured hip, left, closed, initial encounter (HCC) -s/p surgery 05/26 for left hip fracture -Asked to evaluated 06/03 d/t increased pain L hip this AM -D/w patient - notes that she just received a dose of tylenol and is feeling much better. She reports prior bad experience with narcotics and prefers to avoid. Typically avoids NSAIDs d/t GI side effects when she takes. -Continue tylenol. Add heating pad prn. Shortness of breath Patient reports feeling SOB to daughter 06/10 in am Daughter concerned for PNA CXR 06/10 no acute findings. Lactic elevated 2.1>32. 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 -No chest pain 06/03 -Continue ASA, statin, BB Adrenal adenoma, left -Stable Left renal mass -Noted patient refused further workup/imaging at this time Left lower lobe pulmonary nodule -Repeat CT 6-12 months outpatient Hypokalemia K 3.2 Replete and recheck Trend Hypomagnesemia Mg 1.3 Replete and recheck Patient is on a high risk drug therapy requiring intensive monitoring to prevent drug toxicity: No Dispo: Medically Ready for Discharge?: No EDOD: 06/12/2025 Not Ready for Discharge because: Pending stability VTE Prophylaxis: Active Hospital Problems Diagnosis *Fractured hip, left, closed, initial encounter ([facility]) Hypokalemia Hypomagnesemia Type 2 diabetes mellitus without complication, without long-term current use of insulin (HCC) Essential hypertension 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 Denies fever, chills, SOB, CP, NVDC. Resting in bed, patient reports Shortness of breath this morning, when asked about palpitation with SOB she indicated that she felt fluttering in chest. Encouraged patient to report to nursing staff if returns. Objective: BP 145/57 (BP Location: Left arm, Patient Position: Sitting) Comment: re-checked Pulse 78 Temp 98.3 ??F (36.8 ??C) (Oral) Resp 20 Ht 5' 2 (1.575 m) Wt 135 lb 12.9 oz (61.6 kg) SpO2 94% BMI 24.84 kg/m?? I/O last 3 completed shifts: In: 1077 [P.O.:1077] Out: - Weight: 135 lb 12.9 oz (61.6 kg) Constitutional: Resting in bed, chronically ill appearing. Cardiovascular: RRR Pulmonary/Chest: Diminished posteriorly in bases. Abdominal: Soft. NT ND Musculoskeletal: No edema. Neurological: AA&O x 3. Answers basic questions. No focal deficits. Skin: Skin is warm and dry. Labs: Laboratory data and diagnostic testing reviewed 06/10/25. Part of this note was dictated using voice recognition technology and may include unintended spelling errors. Jennifer Fontana APRN 06/10/2025 3:34 PM * Geo Sargent V, DO - 06/09/2025 1:50 PM EDT Patricia Hills is a 84 y.o. female patient. Assessment: Condition: In stable condition. Improving. Present on Admission: ?? Fractured hip, left, closed, initial encounter (HCC) ?? Type 2 diabetes mellitus without complication, without long-term current use of insulin (HCC) ?? Essential hypertension ?? 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 Adrenal adenoma, left ?? Left renal mass ?? Left lower lobe pulmonary nodule . Plan: Out of bed and up to chair, per physical therapy and encourage ambulation. Consults: medicine. Regular diet. Resume home regimen and administer medications as ordered. Present on Admission: ?? Fractured hip, left, closed, initial encounter (HCC) ?? Type 2 diabetes mellitus without complication, without long-term current use of insulin (HCC) ?? Essential hypertension ?? 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 Adrenal adenoma, left ?? Left renal mass ?? Left lower lobe pulmonary nodule Recheck xray and remove staple if not DC by Thursday Labs stable. Tongue issue resolved. Continue all meds Left Renal Mass work up denied by patient. In previous note. . Active Hospital Problems Diagnosis *Fractured hip, left, closed, initial encounter (HCC) Type 2 diabetes mellitus without complication, without long-term current use of insulin (HCC) Essential hypertension 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 Adrenal adenoma, left Left renal mass Left lower lobe pulmonary nodule Subjective Subjective: Symptoms: Stable. Diet: Adequate intake. No nausea. Activity level: Impaired due to weakness. Pain: She reports no pain. Review of Systems is normal except as noted above. Objective Objective: General Appearance: Comfortable. Vital signs: (most recent): Blood pressure (!) 182/56, pulse 76, temperature 98.4 ??F (36.9 ??C), temperature source Oral, resp. rate 20, height 5' 2 (1.575 m), weight 135 lb 12.9 oz (61.6 kg), [id number]%. Vital signs are normal. No fever. Output: Producing urine and producing stool. HEENT: Normal HEENT exam. Lungs: Normal effort and normal respiratory rate. Breath sounds clear to auscultation. Heart: Normal rate. Regular rhythm. S1 normal and S2 normal. Abdomen: Abdomen is soft. Bowel sounds are normal. Extremities: Decreased range of motion. Neurological: Patient is alert. Pupils: Pupils are equal, round, and reactive to light. Skin: Warm. Radiology/ Procedures/ Labs Pertinent imaging studies, procedures and labs were reviewed. Geo Merchant DO 06/09/2025 1:50 PM * Celso Walker, OT - 06/09/2025 1:07 PM EDT 06/09/25 1254 [facility] OT Subjective Note Type Treatment/Progress OT Subjective Comments #1 Now here she goes. Pt response when OT asked if dtr had any questions before session ended. Others Present/Assisting Dee Farris Discharge Information This progress note will serve as the discharge summary if no further therapy is provided prior to the patient being discharged from the hospital. Precautions Therapy Precautions Yes Weight Bearing Status Left lower extremity Precaution Info Given Yes;Weight bearing;To use call light to request assistance with all mobility Cognition Orientation Impaired Disoriented to Situation Arousal Normal Safety Awareness Impaired Safety Awareness Impairment Minimal Impairments: Needs up to 25% input/direction from therapist in order to identify safety issues and maintain safety. Affect/Ability to cope Impaired Affect/Ability to cope impairment Agitated Command Following Impaired Command following impairment Moderate Impairments: Needs 25-75% input/direction from therapist in order to follow single step commands. Memory Impaired Memory impairment Decreased recall of recent events Additional comments Agitation/confusion increased during session. Confusion present with BUE exercises that pt usually completes. Pain Screening PT/OT Patient Currently in Pain Yes Additional Comments Denies pain, but grimaces with movement, etc. Observation Presentation Patient seated in chair Observation Chair alarm Additional Comments Increased agitation when dtr attemtping to converse with OT about recommendations. ADL Interventions Where Assessed Chair;Sitting on toilet/bedside commode Grooming Assistance Set up;Washing hands;With verbal cues (seated; CGA for standing) Toileting Moderate assist;Other (comment) (increased confusion during session this date in midst of toileting. Unclear of hand placement, RW placement, and sequencing.) Additional Comments ATMOSPHERIC DRIER TENDER present during session due to agitation/confusion for safety. Transfers Sit to Stand Contact guard assist;With verbal cues Stand to Sit Contact guard assistance;With verbal cues Bed to/from chair Contact guard assist;With verbal cues Additional Comments RW to/from bathroom with MOD cues. Functional Transfers Toilet Transfers Contact guard assist;Additional time;Grab bars (Increased cuing for processing steps/sequence/hand placement.) Additional Comments When returning from commode, pt required 2 person assist for positioning in chair as she was unable to comprehend directions to scoot back in chair. Balance Sitting Balance 3+/5 sits without UE support for 30 seconds or greater;2/5 supports self independently with both UEs (No LOB this date, but pt required increased CGA/cues for sequencing.) Interventions Transfer Training Pt required tactile cues for chair placement and toilet placement as pt would notback up to surface and attempted to sit on L arm rest of [facility] over commode and chair in room. Exercise Exercise Yes Additional Comments BUE HEP provided this date for 2# weight and red theraband. Pt simulated with MOD verbal/visual cues and supervision for accuracy. Written BUE HEP provided and dtr verbalized understanding of recommendations. Pt completed 3 reps of BUE AROM for all joints/planes per POC. Red theraband ex simulated. However, pt reports never seeing theraband before and that it is someone elsesthing not mine. Education Education To use call light to request assistance with all mobility;Patient/Family Education;Safetywith mobility;Cues for proper technique;Discharge planning;Precautions;Safe and proper technique with transfers;Written Home Exercise Program Patient Safety Patient left in chair with needs in reach;Nursing notified of status;Chair/personal alarm activated Additional Comments Pt educated on OT role and recommendation for bed rails at home. Dtr verbalizedunderstanding and pt had increased agitation. Session terminated. Assessment Progress Slow progress, cognitive deficits Rationale for Skilled Therapy Fall Risk;Balance Deficits;Not safe with independent transfers;Needs verbal/tactile cues for ADL's;Needs physical cues for ADL's;Not independent with home exercise program;Requires physical assistance with ADLs;Decreased endurance and tolerance to activity Additional Comments Pt's greatest difficulty at this time is her agitation when tasks are initiated. Pt continues to have difficulties with sequencing, following commands, and persistence during tasks. Pt gets overwhelmed easily. OT noticies signs of pain in pt, but pt unable to verbalize consistently or accurately. Nsg notified of pt status and pain. Dtr worried about caring for pt at home, but mental status is slowing ability to participate or progress in skilled care at this time. retirement placement or caregiver assistance may be helpful. Plan Additional Comments Continue OT pending pt status. Dtr reported may take pt home pending status andinput from MD. Recommendation OT Recommendation Moderate frequency, moderate intensity five days a week therapy recommended. Time In / Time Out 10:35-11:23 LTC Actual Occupational Therapy Minutes LTC Individual Therapy Minutes 48 * Gracie Macario, PT - 06/09/2025 10:17 AM EDT 06/09/25 0754 [facility] PT Subjective Note Type Treatment/Progress Patient Room/Unit 106 PT Subjective Comments #1 Pt was agreeable and cooperative. Slightly confused, but not agitated this AM. She did complain of being hungry, so placed pt breakfast order. Others Present/Assisting SANTOS Vela cleared pt for PT. DHARA Pascual performed vitals. Discharge Information This progress note will serve as the discharge summary if no further therapy is provided prior to the patient being discharged from the hospital. Pain Screening PT/OT Patient Currently in Pain Yes Additional Comments Pt complains that her L hip and near her tailbone. She states it does not hurt worse during gt. Cognition Orientation Impaired Disoriented to Situation Additional comments Pt was more interactive, more clear today. She recognized her RN as a family friend and remembered their names. Still with some memory issues, but not agitagted this date. Precautions Therapy Precautions Yes Weight Bearing Status Left lower extremity Precaution Info Given Yes;Weight bearing Additional Comments Pt crossed her feet in sitting but immediately recognized that she was not supposed to and uncrossed. Activity Tolerance Vitals BP read 3 times 181/52 Observation Presentation Patient seated in chair Observation Chair alarm Mobility - Actual Discharge (Therapies) Roll Left and Right 88-Not attempted Sit to lying 88-Not attempted Lying to sitting on edge of bed 88-Not attempted Sit to stand 4-Supv Chair/Jok-ac-dstiq transfer 4-Supv Toilet transfer 88-Not attempted Tub/Shower Transfer 88-Not attempted Car Transfer 10-Not attempted Walk 10 Feet 4-Supv Walk 50 feet with two turns 3-Partial Walk 150 feet 88-Not attempted Walking 10 Feet On Uneven Surfaces 88-Not attempted 1 Step (Curb) 88-Not attempted 4 Steps 88-Not attempted Bed Mobility Additional Comments Not tested, up in chair. Transfers Sit to Stand Contact guard assist Stand to Sit Contact guard assistance Gait Gait Contact guard assist;Minimal assistance Gait Distance (Feet) 90 Feet (x2) Assistive Device 2 Wheel walker Pattern Slow desiree Weight Bearing Status Weight bearing as tolerated Additional Comments Pt ambulated 90' to gym with CGA. Post exercise, pt reported she had to return to room to have BM imminently. During gt back to room, pt was distracted, limping and needed hands on min assist. She let go of RW during gt and stumbled needing mod assist to regain balance. Struggled to get back to room safely. Balance Sitting Balance 3/5 sits without UE support up to 30 seconds Standing Balance 1/5 performs 25-50% (moderate assistance);Dynamic (1 Loss of balance during gt causing a significant stumble and needing mod assist to regain balance.) Exercise Exercise Yes Additional Comments Attempted to have pt perform whatever exercises she recalled from having performed them several times. She was not able to recall any exercises and needed visual cues for each exercise. Seated Seated LAQ's 20B Seated Hip Flex/Marching Attempted to start this ex but pt needed to return to room for toileting. Seated Hip ADD Isometrics 20B Seated DF/PF 20 B PT/OT Mobility Documentation PT/OT Mobility Score 6 Education Education To use call light to request assistance with all mobility Additional Comments Upon return to room, pt insisted she did not need to use the toilet. She sat inchair and stiffened, unweighting LLE. She was dependent with scooting back into chair. She was clearly in pain, but denied pain when asked. Patient Safety Patient Safety Patient left in chair with needs in reach;Nursing notified of status;Chair/personal alarm activated (Discussed with RN pt unusal change in cognition from start to end of session. RT in room for breathing treatment.) Assessment Assessment Decreased gait;Decreased functional mobility;Decreased balance;Decreased safety judgement ;Decreased cognition Prognosis Good;With continued PT s/p acute discharge;Fair Progress Slow progress toward goals, cognitive deficits Rationale for Skilled Therapy Fall Risk;Balance Deficits;Not safe with independent transfers;Not safe ambulating independently Additional Comments Pt cognition makes consistent progress difficult. Plan Treatment/Interventions Continue with current plan of care Recommendation PT Recommendation 24-hour supervision/assist with low frequency therapy with intensity appropriate for patient need. Time In / Time Out [id number] [facility] Actual Physical Therapy Minutes [facility] PT Ind Therapy Min 49 (12Gt, 15Ex) * Geo Sargent DO - 06/08/2025 11:56 PM EDT Patricia Hills is a 84 y.o. female patient. Assessment: Condition: In stable condition. Improving. Present on Admission: ?? Fractured hip, left, closed, initial encounter (HCC) ?? Type 2 diabetes mellitus without complication, without long-term current use of insulin (HCC) ?? Essential hypertension ?? 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 Adrenal adenoma, left ?? Left renal mass ?? Left lower lobe pulmonary nodule . Plan: Other transfer (see comment). Encourage ambulation, out of bed and up to chair and per physical therapy. Consults: medicine. Regular diet. Resume home regimen and administer medications as ordered. Present on Admission: ?? Fractured hip, left, closed, initial encounter (HCC) ?? Type 2 diabetes mellitus without complication, without long-term current use of insulin (HCC) ?? Essential hypertension ?? 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 Adrenal adenoma, left ?? Left renal mass ?? Left lower lobe pulmonary nodule TONGUE. Red. Currently on nystatin. No drug cause. B12 shot given today. Patient allergic to steroids No dysphagia Hopeful to get to get home tomorrow. . Active Hospital Problems Diagnosis *Fractured hip, left, closed, initial encounter (HCC) Type 2 diabetes mellitus without complication, without long-term current use of insulin (HCC) Essential hypertension 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 Adrenal adenoma, left Left renal mass Left lower lobe pulmonary nodule Subjective Subjective: Symptoms: Stable. Diet: Adequate intake. No nausea. Activity level: Impaired due to weakness. Pain: She reports no pain. Review of Systems is normal except as noted above. Objective Objective: General Appearance: Comfortable. Vital signs: (most recent): Blood pressure 145/46, pulse 88, temperature 98.7 ??F (37.1 ??C), temperature source Oral, resp. rate 18, height 5' 2 (1.575 m), weight 135 lb 12.9 oz (61.6 kg), SpO2 94%. Vital signs are normal. No fever. Output: Producing urine and producing stool. HEENT: Normal HEENT exam. Lungs: Normal respiratory rate and increased effort. Heart: Normal rate. Regular rhythm. S1 normal and S2 normal. Abdomen: Bowel sounds are normal. There is no abdominal tenderness. Extremities: Decreased range of motion. Neurological: Patient is alert and oriented to person, place and time. Pupils: Pupils are equal, round, and reactive to light. Skin: Warm. Radiology/ Procedures/ Labs Pertinent imaging studies, procedures and labs were reviewed. Geo Merchant DO 06/08/2025 11:56 PM * Breana Griffin, YASMINE - 06/08/2025 6:21 PM EDT 06/08/25 1820 Respiratory $ Assess charge row Completed Assessment Type Post-tx Pulse 80 Resp 16 Patient Tolerance Tolerated well Level of Consciousness Alert;Oriented Respiratory Pattern Regular;Easy;Unlabored Cough Cough Dry;Non-productive;Weak Pt reported that breathing tx helped and feels the difference. Pt has no other respiratory complaints at this time. * Breana Griffin RRT - 06/08/2025 6:14 PM EDT 06/08/25 1810 Respiratory $ Assess charge row Completed Assessment Type Pre-tx Pulse 75 Resp 18 Patient Effort Good Level of Consciousness Alert;Confused;Oriented Respiratory Pattern (S) Regular;Unlabored (pt stated that she felt sob) Chest Assessment Chest expansion symmetrical Breath Sounds Bilateral Diminished Oxygen Therapy/SPO2 Oxygen in Use No O2 Device Room Air SpO2 93 % HHN HHN Medications Yes $ HHN Charge Subsequent HHN Comment albuterol Pt was reporting to nursing that she felt short of breath. Pt was assessed by this RT and given a prn breathing tx. Pt is currently on RA. Pt currently sitting in recliner for her tx. Pt stated to this RT that she felt short of breath as well. Pt RR is easy and unlabored but breathing shallow. Pt tolerated mouth piece tx well with beginning instruction of inhale/exhale technique. Pt has no other respiratory complaints at this time. * Celso Walker, OT - 06/08/2025 1:51 PM EDT 06/08/25 1332 [facility] OT Subjective Note Type Treatment/Progress OT Subjective Comments #1 Here we go again! You keep saying we will do one then you keep adding things every time. You hurt me today when you moved me. Therapist just arriving for OT session and had not assisted with any mobility/exercises this date. Dtr and RN confirmed that RN assisted pt priorthis date, but pt had not complained of pain. Dtr and niece present and reported that cognitive status has changed. Others Present/Assisting Dtr nguyen Montero, Karen carbajal-RN arrived for second attempt. RN-Karen, Precautions Therapy Precautions Yes Weight Bearing Status Left lower extremity;Weight bearing as tolerated Precaution Info Given Yes;Weight bearing Additional Comments Dtr stated when pt got agitated, I will not be able to care for you at home ifyou don't try to do your therapy. Cognition Orientation Intact Arousal Normal Safety Awareness Impaired Safety Awareness Impairment Minimal Impairments: Needs up to 25% input/direction from therapist in order to identify safety issues and maintain safety. Affect/Ability to cope Impaired Affect/Ability to cope impairment Agitated;Anxious;Hyperverbal;Does not make eye contact Command Following Impaired Command following impairment Moderate Impairments: Needs 25-75% input/direction from therapist in order to follow single step commands. Memory Impaired Memory impairment Decreased recall of prior level of function;Other (comment) (Pt continues to report that OT assisted her with movement this date. OT confirming with dtr/RN that OT has not assisted with mobility this date and that pt is accusing OT of things that did not occur.) Additional comments Poor reasoning this date and inability to process conversation/explanations. Pain Screening PT/OT Patient Currently in Pain Yes Additional Comments Pt reported , I don't want to take any dope, but I will take a tylenol. Observation Presentation Patient resting in bed Observation Bed alarm Additional Comments Pt finishing lunch upon OT arrival. (homemade vegetable soup and agreeable to therapy. ADL Interventions Additional Comments Pt declined ADLs. MAX encouragement to attempt any activities after 10 reps of BUE 2# free wt exercises. Pt continued to get agitated. OT attempted to explain to pt/family present. Dtr verbalized understanding and reported, This is just how she is. She likes to argue and this is how her side of the family is. OT explained that with pt confusion and agitation that OT sessionsare not therapeutic due to limited engagement and participation. RN present for majority of activities. Bed Mobility Rolling Stand by assist;Head of bed elevated Supine to Sit Stand by assist;Head of bed elevated Additional Comments RN educated pt that she needed to move to [facility] for new perspective and for mental/emotional health with MAX encouragement. Transfers Sit to Stand Contact guard assist;With verbal cues Stand to Sit Contact guard assistance;With verbal cues Bed to/from chair Contact guard assist;Walker Additional Comments Pt requires cues to push up from EOB and to reach back prior to sitting on surfaces. Gait Additional Comments Pt walked to lobby with CGA and RW while OT followed with chair to decrease agitation. Interventions Equipment Training Recommendations made for bedrail at home to assist with bed mobility. Pt startedgetting agitated and stated, Quit talking about me. OT attempted to clarify that OT was making recommendations for care at home and discussing HH and outpt services at time of d/c. Transfer Training Safe technique reviewed. Additional Comments Lengthy discussion of OT role and that OT is being accused of doing things thatOT is not doing. Pt expressed confusion that with repetitions of exercises. OT recommended having list of written exercises and stopping when list is completed as pt has increased agitation when OT is suggesting activities. Dtr concerned that she can not care for pt at home and stated, You will have to go to a prison because I can't do this at home. Dtr concerned with pt receiving pain meds and recommends tylenol only and that this could be contributing to her mental status. Exercise Exercise Yes Upper Extremity Exercises Shoulder Flexion 2# BUE 10x Shoulder Abduction 2# BUE 10x Education Education Patient/Family Education;Role of Therapy;Safety with mobility;Cues for proper technique;Discharge planning;Up with assistance only;Precautions;Written Home Exercise Program;Safe and proper technique with transfers;Energy conservation;Educated on benefits of mobility, upright positioning, and getting out of bed;Other (comment) (Role of OT and skilled program requirements. Pt needs to consistently participate with skilled OT services. Agitation/confusion to be addressed per nursing with MD. .) Patient Safety Patient left in chair with needs in reach;Nursing notified of status Additional Comments Session ended with dtr and RN present with [facility], etc. Pt continued to state, They will laugh at me. Pt educated that no one is present in [facility] except pt/dtr/staff. Assessment Progress Slow progress, multiple refusals Rationale for Skilled Therapy Fall Risk;Balance Deficits;Not safe with independent transfers;Needs verbal/tactile cues for ADL's;Needs physical cues for ADL's;Not independent with home exercise program;Requires physical assistance with ADLs;Decreased endurance and tolerance to activity Additional Comments Pt making slow progress with skilled OT services as pt resistive to OT recommendations/activities during sessions. This pattern has been consistent and pt/family educated that pr confusion/agitation and accusing OT of doing things falsely, is impacting the therapeutic ability during sessions. Recommendations made for different placement/setting for OT sessions to occur in attempt to make progress with pt. Pt may benefit from being home mentally/emotionally despite daughter'sconcerns. SW to be notified of status. Pt has right to refuse OT, but progress will not be made if pt is not compliant with program. Pt encouraged to have a fresh start with OT next session. Pt does have level of confusion that interferes with sessions. Plan Additional Comments Continue OT pending pt participation. Recommendation Time In / Time Out 12:23-12:40; 12:51-13:20 LTC Actual Occupational Therapy Minutes LTC Individual Therapy Minutes 48 * Gracie Macario, PT - 06/08/2025 9:43 AM EDT 06/08/25 0825 [facility] PT Subjective Note Type Treatment/Progress Patient Room/Unit 106 PT Subjective Comments #1 Pt was observed to be trying to sit up in bed. Offered assistance. Pt wasfrustrated and slighlty agitated reported she had been calling out forever for help and this is a bad place to be because she cannot get assist. However, this PT had been in hallway area for several minutes and did not hear pt calling out. Pt could not explain why she didn't use her call light. Others Present/Assisting RNTarry cleared pt for PT. Ambassador in, able to assist pt in ordering breakfast. Discharge Information This progress note will serve as the discharge summary if no further therapy is provided prior to the patient being discharged from the hospital. Pain Screening PT/OT Patient Currently in Pain Other (comment) Additional Comments Pt denied pain several times when asked, but then would wince and state that hurts , but then when asked about her pain, she denies having pain. Cognition Orientation Impaired Additional comments Pt was confused. There is some difficulty getting the best effort from pt due to her confusion. She was cooperative, but did need many cues and much encouragement. Poor short termmemory. This also makes it very hard to have any level of confidence in pt ability to retain information regarding her fx, surgery, gt sequencing and exercises. Precautions Therapy Precautions Yes Weight Bearing Status Left lower extremity;Weight bearing as tolerated Precaution Info Given Yes;Weight bearing Observation Presentation Patient resting in bed Posture 5'2 135# Pt trying to sit up in bed. Observation Bed alarm Mobility - Actual Discharge (Therapies) Roll Left and Right 4-Supv Sit to lying 4-Supv Lying to sitting on edge of bed 4-Supv Sit to stand 4-Supv Chair/[id number] transfer 4-Supv Toilet transfer 88-Not attempted Tub/Shower Transfer 88-Not attempted Car Transfer 10-Not attempted Walk 10 Feet 4-Supv Walk 50 feet with two turns 4-Supv Walk 150 feet 88-Not attempted Walking 10 Feet On Uneven Surfaces 88-Not attempted 1 Step (Curb) 88-Not attempted 4 Steps 88-Not attempted Bed Mobility Rolling Stand by assist;Head of bed slightly elevated;With bed rails Supine to Sit Stand by assist;With cues;Head of bed slightly elevated;With bed rails Additional Comments With great effort and pulling on rail, using momentum and with cues and reminders, but did not need hands on physical assist. Transfers Sit to Stand Contact guard assist;With verbal cues;With raised bed height Stand to Sit Contact guard assistance;With verbal cues Additional Comments Does need some hands on assist of RW to manage moving the RW to stay in line with pt. Gait Gait Contact guard assist Gait Distance (Feet) 75 Feet Assistive Device 2 Wheel walker Pattern Slow desiree Weight Bearing Status Weight bearing as tolerated Additional Comments Needs hands on assist to manage the RW. She complained that PT was pushing it too much, but in reality, PT holding it closer so pt would not push it too far in front. Balance Sitting Balance 3/5 sits without UE support up to 30 seconds Standing Balance 2/5 indep, requires both UE support Exercise Exercise Yes Additional Comments Pt has some exercises written on board. Attempted to get pt to read and follow the exercises on board. Pt reports she was not able to do them as while she could read the exercises, she did not understand them. Reviewed ex with verbal cues and physical demonstration. Seated Seated LAQ's 20X B. Noted LLE does not come to full extension. Last 5 were AAROM to full extension with pt complaints of discomfort. Seated Hip ADD Isometrics 20 B Seated Hip ABD 10B (Not on board) Seated DF/PF 20X B PT/OT Mobility Documentation PT/OT Mobility Score 6 Education Education To use call light to request assistance with all mobility Additional Comments Pt declined need for toileting several times. Had pt wash hands and face prior to breakfast. Obtaioned and applied blankets. RT in at end of session for breathing treatment. Patient Safety Patient Safety Patient left in chair with needs in reach;Chair/personal alarm activated Assessment Assessment Decreased gait;Decreased functional mobility;Decreased balance;Decreased activity tolerance ;Decreased safety judgement ;Decreased cognition Prognosis Good;With continued PT s/p acute discharge Progress Progressing toward goals Rationale for Skilled Therapy Fall Risk;Balance Deficits;Not safe with independent transfers;Not safe ambulating independently Additional Comments Pt making physical progress, but her cognitive limiations impact her safety. Plan Treatment/Interventions Continue with current plan of care Recommendation PT Recommendation 24-hour supervision/assist with low frequency therapy with intensity appropriate for patient need. Additional PT discharge information Pt is not safe to be alone due to her confusion and decreased short term memory. She would benefit from home therapy to continue progress with mobility. Do not feel pt is safe to DC at this time. Time In / Time Out [id number] LTC Actual Physical Therapy Minutes LTC PT Ind Therapy Min 40 (15gt, 15Ex, 10TA) * Stephany Lopez LPN - 06/08/2025 6:24 AM EDT Patient note to have dry blood all over the right side of mouth and lips, checked her mouth and tongue and her her appeared to be bloody also. I ask her if could bit it, and she didn't think so. I will leave a note for MD to take a look at it, deny any pain or discomfort at this time, will continueto observe. * Celso Walker OT - 06/07/2025 5:39 PM EDT 06/07/25 1739 OT Weekly Progress OT Weekly Progress Note Due Date 06/17/25 * Celso Walker OT - 06/07/2025 5:33 PM EDT Occupational Therapy Weekly Progress Report NAME: Patricia Hills : 1940 Dates this report covers: 05/30/2025-06/07/2025 Pt received skilled Occupational Therapy services to increase independence with Activities of DailyLiving. ADL/Functional transfers, BUE strengthening, activity/stand tolerance, and safety awareness. She has been making progress with skilled OT services, but reported not feeling well this date. Ptmotivated to return home with daughter. Pt has been participating well in OT sessions, but does have decreased activity tolerance and fatigues easily. Pt can easily get agitated during sessions and requires redirection/education at times. LTC OT Weekly Progress Note ADL Assistance First Filed Feeding Grooming Supervision, Oral care, Hair care, Washing hands, Washing face (from seated position.) (05/30/25 1320) Bathing UE Unable to assess (comment) (pt declined multiple attempts-reports desire to wait for Mirian-RN despite OT explaining OT role.) (06/02/25 1643) Bathing LE Unable to assess (comment) (pt declined multiple attempts-reports desire to wait for Mirian-RN despite OT explaining OT role.) (06/02/25 1643) Dressing UE Set up ([facility] gown and donned pullover shirt.) (06/01/25 1502) Dressing LE Contact guard, With verbal cues, Pull up over hips, Thread LLE into underwear, Thread RLE into underwear, Thread LLE into pants, Thread RLE into pants, Don/doff L sock, Don/doff R sock (Pt educated on use of political advisor/sock aid for LB dressing. Pt doffed/donned socks with CGA and MAX verbal cues for technique. CGA and MOD verbal cues to don pants with political advisor. MAX cues to hold RW at all times with 1 hand at a minimum to decrease fall risk.) (06/01/25 1502) Toileting Other (comment) (Pt declined need for toileting.) (05/30/25 1320) Toilet Transfers Tub Transfers Shower Transfers Transfer Additional Comments Nsg educated that due to staff reporting MAX A of 2, to have BSC placed by chair versus attempting to walk to bathroom at this time for safety for pt and staff. () Homemaking Equipment Recommended ADL Assistance Feeding Grooming Set up, Hair care, Washing hands, Washing face (06/06/251239) Bathing UE Set up (06/06/251239) Bathing LE Minimal, L lower leg/foot (Pt refused to wash periarea or buttocks stating, That was washed earlier today and it doesn't need it again. I am afraid that will hurt my hip. ) (06/06/251239) Dressing UE Set up ([facility] gown and donned pullover shirt. Declined bra) (06/06/251239) Dressing LE Contact guard, With verbal cues, Don/doff L shoe, Don/doff R shoe, Pull up over hips, Thread RLE into pants, Thread LLE into pants, Don/doff L sock, Don/doff R sock (Pt able to use political advisor/sock aid for LB dressing with MOD cues and CGA. Dtr present to see use of political advisor. Pt stated, Well can't you pull my pants up? Pt/dtr educated that OT will not be present at home and pt able to pull pants up over hips with CGA.) (06/06/251239) Toileting Other (comment) (declined need) (06/06/251239) Toilet Transfers CGA Tub Transfers Dependent Shower Transfers CGA at minimum. Transfer Additional Comments Nsg educated that due to staff reporting MAX A of 2, to have BSC placed by chair versus attempting to walk to bathroom at this time for safety for pt and staff. () Homemaking Dependent except for folding laundry at this time. Equipment Recommended hand held shower head, political advisor, sock aid, long handled sponge, grab bars. D/C plan: Pt reports plan to potentially return home on 06/09/25 pending status and family concerns. Plan: Continue to see pt 5x a week to continue to work towards goals. Celso Walker OTR/Judson 06/07/2025 * Celso Walker, OT - 06/07/2025 5:27 PM EDT 06/07/25 1721 SNF OT Subjective Note Type Treatment/Progress OT Subjective Comments #1 I don't know what is wrong with me, but I just don't feel well today. I may have a fever. Discharge Information This progress note will serve as the discharge summary if no further therapy is provided prior to the patient being discharged from the hospital. Precautions Therapy Precautions Yes Weight Bearing Status Left lower extremity;Weight bearing as tolerated Precaution Info Given Yes;Weight bearing;To use call light to request assistance with all mobility Cognition Orientation Impaired Arousal Normal Safety Awareness Impaired Safety Awareness Impairment Minimal Impairments: Needs up to 25% input/direction from therapist in order to identify safety issues and maintain safety. Affect/Ability to cope Normal Command Following Impaired Command following impairment Minimal Impairments: Needs up to 25% input/direction from therapist inorder to follow single step commands. Memory Impaired Memory impairment Poor short term memory Pain Screening PT/OT Patient Currently in Pain Denies Observation Presentation Patient resting in bed Observation Bed alarm;Chair alarm ADL Interventions Additional Comments Pt declined ADLs this date due to feeling cold and not feeling well. Pt educated that it is soon time for dinner and pt agreed to get out of bed and transfer to chair. Bed Mobility Supine to Sit Minimal assistance;Head of bed elevated;With bed rails Additional Comments Increased time to complete. Transfers Sit to Stand Contact guard assist;With verbal cues;Walker Stand to Sit Contact guard assistance;With verbal cues;Walker Bed to/from chair Contact guard assist;With verbal cues;Walker Additional Comments Pt required increased time and had multiple attempts to stand from EOB. Balance Standing Balance 2/5 indep, requires both UE support Activity Tolerance Endurance Limits participation and activity Interventions Balance Training Pt encouraged to get balance before attempting to stand or walk once position has changed. Transfer Training Safe transfer technique recommended. Education Education To use call light to request assistance with all mobility;Safety with mobility;Cues for proper technique;Safe and proper technique with transfers;Educated on benefits of mobility, upright positioning, and getting out of bed Patient Safety Patient left in chair with needs in reach;Nursing notified of status;Chair/personal alarm activated Additional Comments Call light within political advisor. Pt asked OT to put items on table away. Pt pointed to hospital phone. Pt educated that phone rests on bedside table and pt stated, That isn't mine. Assessment Rationale for Skilled Therapy Fall Risk;Balance Deficits;Not safe with independent transfers;Needs verbal/tactile cues for ADL's;Needs physical cues for ADL's;Not independent with home exercise program;Requires physical assistance with ADLs;Decreased endurance and tolerance to activity Additional Comments Pt required multiple attempts to stand from EOB once awakened. Pt reported not feeling well and nsg notified of pt status. Session decreased in length due to pt status. Plan Additional Comments Continue OT per POC to increase safety and independence with ADLs. Recommendation OT Recommendation Moderate frequency, moderate intensity five days a week therapy recommended. Time In / Time Out 16:53-17:06 LTC Actual Occupational Therapy Minutes LT Individual Therapy Minutes (!) 13 * Katya Ott, PT - 06/07/2025 10:16 AM EDT 06/07/25 1009 SNF PT Subjective Note Type Treatment/Progress Patient Room/Unit 106 PT Subjective Comments #1 agreeable to PT Others Present/Assisting Family present which encouraged her Pain Screening PT/OT Patient Currently in Pain Yes Pain Rating Patient unable to rate pain Pain Location Buttocks;Hip Cognition Orientation Intact Arousal Normal Safety Awareness Impaired Safety Awareness Impairment Minimal Impairments: Needs up to 25% input/direction from therapist in order to identify safety issues and maintain safety. Affect/Ability to cope Normal Command Following Impaired Command following impairment Minimal Impairments: Needs up to 25% input/direction from therapist inorder to follow single step commands. Memory Impaired Memory impairment Poor short term memory Precautions Therapy Precautions Yes Weight Bearing Status Left lower extremity;Weight bearing as tolerated Precaution Info Given Yes;To use call light to request assistance with all mobility Activity Tolerance Endurance Limits participation and activity Observation Presentation Patient seated in chair Observation Chair alarm Transfers Sit to Stand Contact guard assist;With verbal cues Stand to Sit Contact guard assistance;With verbal cues Gait Gait Contact guard assist;Stand by assist;With verbal cues Gait Distance (Feet) 80 Feet Assistive Device 2 Wheel walker Pattern Slow desiree;Flexed posture Weight Bearing Status Weight bearing as tolerated Additional Comments VC/MC tto stay in walker Stair Management Technique Two rails;Step to pattern;With gait belt Stair Management Assistance With contact guard assistance Additional comments needed constant cues for proper technique Number of Stairs 5 Balance Standing Balance 2+/5 indep, requires 1 UE support Exercise Exercise Yes Seated Seated LAQ's 20x Seated Hip Flex/Marching 10x Seated Hip ADD Isometrics 20x Seated DF/PF 20x PT/OT Mobility Documentation PT/OT Mobility Score 6 Education Education To use call light to request assistance with all mobility;Patient/Family Education;Role of Therapy;Safety with mobility;Cues for proper technique;Up with assistance only;Precautions Patient Safety Patient Safety Patient left in chair with needs in reach;Chair/personal alarm activated Assessment Progress Progressing toward goals Additional Comments she was very motivated Plan Treatment/Interventions Continue with current plan of care PT Frequency 5x/week Recommendation PT Recommendation Moderate frequency, moderate intensity five days a week therapy recommended. Additional PT discharge information HHPT at discharge Time In / Time Out [id number] LTC Actual Physical Therapy Minutes LTC PT Ind Therapy Min 34 Katya Ott, PT * Gracie Null RN - 06/07/2025 9:30 AM EDT Images from the original note were not included. WOUND CARE: Please see LDA(s) for complete documentation and assessment. Pt admitted for: Fracture [T14.8XXA] Fractured hip, left, closed, initial encounter ([facility]) [S72.002A] Upon assessment, pt with the following present on admission wounds: Buttocks, MASD with open erosions TREATMENT: Cleanse affected/soiled area with foam cleanser & pat dry Apply Triad (hydrophilic wound dressing) daily and PRN DO NOT scrub off, wipe away soiled layer with each incontinence episode. Do not anti-fungal powder with Triad. *Every 5-7 days, remove all of Triad with wound cleanser and re-apply fresh layer of ointment Encourage continuation of preventative interventions such as frequent repositioning/ scheduled turns, as well as offloading bilateral heels. Patient is on a low air loss sleep surface to manage the microclimate of the skin (ensure function is on). Clinical nutrition consulted for nutritional support and to aid in wound healing. Orders updated in [facility]. Primary nurse updated. Will continue to follow along and offer support. Thanks! * Stephany Lopez LPN - 06/07/2025 3:12 AM EDT Resting quietly at short intervals, up to bathroom several time this night of care, gait slow and steady with walker and stand by. Encouraged to use call light for needs and assistance. Will continueto observe. * Geo Sargent DO - 06/06/2025 11:04 PM EDT Patricia Hills is a 84 y.o. female patient. Assessment: Condition: In stable condition. Improving. Present on Admission: ?? Fractured hip, left, closed, initial encounter (HCC) ?? Type 2 diabetes mellitus without complication, without long-term current use of insulin (HCC) ?? Essential hypertension ?? 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 Adrenal adenoma, left ?? Left renal mass ?? Left lower lobe pulmonary nodule . Plan: Per physical therapy, out of bed and up to chair and encourage ambulation. Consults: medicine. Regular diet. Resume home regimen and administer medications as ordered. Present on Admission: ?? Fractured hip, left, closed, initial encounter (HCC) ?? Type 2 diabetes mellitus without complication, without long-term current use of insulin (HCC) ?? Essential hypertension ?? 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 Adrenal adenoma, left ?? Left renal mass ?? Left lower lobe pulmonary nodule Conitnue pt/ ot. Add KCl to meds. For slightly low potassium Recheck labs for am Recheck xray on hip Hopefull to discharge tomorrow or soon . Active Hospital Problems Diagnosis *Fractured hip, left, closed, initial encounter (HCC) Type 2 diabetes mellitus without complication, without long-term current use of insulin (HCC) Essential hypertension 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 Adrenal adenoma, left Left renal mass Left lower lobe pulmonary nodule Subjective Subjective: Symptoms: Stable. Diet: Adequate intake. Activity level: Impaired due to weakness. Pain: She reports no pain. Review of Systems is normal except as noted above. Objective Objective: General Appearance: Comfortable. Vital signs: (most recent): Blood pressure (!) 166/44, pulse 75, temperature 98.4 ??F (36.9 ??C), temperature source Oral, resp. rate 16, height 5' 2 (1.575 m), weight 135 lb 12.9 oz (61.6 kg), [id number]%. Vital signs are normal. No fever. Output: Producing urine and producing stool. HEENT: Normal HEENT exam. Lungs: Normal effort and normal respiratory rate. Breath sounds clear to auscultation. Heart: Normal rate. Regular rhythm. S1 normal and S2 normal. Abdomen: Abdomen is soft. Bowel sounds are normal. There is no abdominal tenderness. Extremities: Decreased range of motion. There is no effusion or dependent edema. Neurological: Patient is alert and oriented to person, place and time. Pupils: Pupils are equal, round, and reactive to light. Skin: Warm. Radiology/ Procedures/ Labs Pertinent imaging studies, procedures and labs were reviewed. Viral Arie Merchant DO 06/06/2025 11:04 PM * Celso Walker, OT - 06/06/2025 12:58 PM EDT 06/06/25 1240 SNF OT Subjective Note Type Treatment/Progress OT Subjective Comments #1 Mirian is going to be made if you help me with a bath. That is her job. (referring to RN) Others Present/Assisting DTR-Kylah Discharge Information This progress note will serve as the discharge summary if no further therapy is provided prior to the patient being discharged from the hospital. Precautions Therapy Precautions Yes Weight Bearing Status Left lower extremity;Weight bearing as tolerated Precaution Info Given Yes;To use call light to request assistance with all mobility;Weight bearing Cognition Orientation Intact Arousal Normal Safety Awareness Impaired Safety Awareness Impairment Minimal Impairments: Needs up to 25% input/direction from therapist in order to identify safety issues and maintain safety. Affect/Ability to cope Impaired Affect/Ability to cope impairment Agitated;Distracted;Hyperverbal Command Following Impaired Command following impairment Minimal Impairments: Needs up to 25% input/direction from therapist inorder to follow single step commands. Memory Impaired Memory impairment Poor short term memory;Decreased recall of precautions;Decreased recall of recentevents Pain Screening Additional Comments I am afraid to move because it might hurt. Observation Presentation Patient seated in chair Observation Chair alarm ADL Interventions Where Assessed Chair Grooming Assistance Set up;Hair care;Washing hands;Washing face UE Bathing Assistance Set up LE Bathing Assistance Minimal;L lower leg/foot (Pt refused to wash periarea or buttocks stating, That was washed earlier today and it doesn't need it again. I am afraid that will hurt my hip. ) UE Dressing Assistance Set up ([facility] gown and donned pullover shirt. Declined bra) LE Dressing Assistance Contact guard;With verbal cues;Don/doff L shoe;Don/doff R shoe;Pull up over hips;Thread RLE into pants;Thread LLE into pants;Don/doff L sock;Don/doff R sock (Pt able to use political advisor/sock aid for LB dressing with MOD cues and CGA. Dtr present to see use of political advisor. Pt stated, Well can't you pull my pants up? Pt/dtr educated that OT will not be present athome and pt able to pull pants up over hips with CGA.) Toileting Other (comment) (declined need) Additional Comments Pt asked OT to perform dressing assistance when OT encouraged independence. OT would provide assistance if required, but pt requires encouragement for initiation. Transfers Sit to Stand Contact guard assist;With verbal cues Stand to Sit Contact guard assistance;With verbal cues Balance Standing Balance 2+/5 indep, requires 1 UE support (Pt able to let go of RW with 1 hand during dressing task, but pt continues to remove both hands atsame time compromising safety. Dtr and Pt educated that pt needs 1 hand on RW at all times to decrease risk of falling.) Activity Tolerance Endurance Limits participation and activity Interventions Additional Comments Pt/family educated that PT will be notified that completing steps at home is greatest concern at this time. Exercise Exercise No Education Education To use call light to request assistance with all mobility;Patient/Family Education;Role of Therapy;Safety with mobility;Cues for proper technique;Discharge planning;Up with assistance only;Safe and proper technique with transfers;Energy conservation Patient Safety Patient left in chair with needs in reach;Nursing notified of status;Chair/personal alarm activated Additional Comments Call light within reach. Dtr educated that OT's greatest concern is pt confusion/cognitive status at this time. Agitation can present, pt reports just joking , but pt gets agitated easily during OT sessions. Assessment Rationale for Skilled Therapy Fall Risk;Balance Deficits;Not safe with independent transfers;Needs verbal/tactile cues for ADL's;Needs physical cues for ADL's;Not independent with home exercise program;Requires physical assistance with ADLs;Decreased endurance and tolerance to activity Additional Comments Pt progressing with skilled OT services when pt participates, but can be resistive when activities or exercises are suggested. Mental status is greatest concern at this time. Plan Additional Comments Continue OT pending pt participation and continued progress. Recommendation OT Recommendation Moderate frequency, moderate intensity five days a week therapy recommended. Time In / Time Out 11:50-12:30 LTC Actual Occupational Therapy Minutes LTC Individual Therapy Minutes 40 * Jeannette Quach MSW - 06/06/2025 12:50 PM EDT 06/06/25: Patient Care Conference Summary OT/PT: The following information was shared at the care conference and communicated by therapist attending multi-disciplinary conference Attendance: Patient and daughter Kylah Hills Bathing Upper Body/Lower Body setup/supervision for UB bathing Min A for LB bathing Dressing Upper Body/Lower Body setup for UB dressing CGA and MOD verbal cues for LB dressing ADL Transfers CGA and MAX cues for hand placement. Homemaking D at this time. Cognition Alert and Ox4, but pt has intermittent confusion and difficulty following positioning/readjusting self in chair. Bed mobility Megan-ModA Functional Transfers CGA sit<>stand Ambulation/Walking Ability Orthopedic Range of Motion (if applicable) Balance 2+/5 standing Stairs not performed Services recommended continue skilled, HHPT at discharge. Equip recommendations political advisor, sock aid, long handled sponge D/c date and plan TBD Plan: Continue to provide skilled therapy services to this resident 5-6x a week to continue to worktowards goals and maximize functional ability. OT Summary/Recommendation: Pt has been participating in skilled OT services since OT eval on 05/30/25. Pt participation fluctuates and agitation can present during sessions. Pt's greatest difficulty at this time is mental status and LB bathing/dressing. Pt requires cues for initation and fatigues easily with BUE exercises. Pt has strong desire to return home with dtr. At this time, dtr should be responsible for meal prep, med management, and home management tasks. Pt could assist with folding laundry, but not carrying items. Fall risk is present due to pt frequently releases RW with both handsduring ADL. Pt should have 1 hand on RW at all times during functional tasks. Recommendation to cont inue OT pending pt participation and willingness to follow recommendations. Celso Walker, OTR/L 06/06/25 PT Summary/Recommendation: Patient is progressing well. She is requiring less assist for ambulationand transfers. However she is continuing to requiring cueing for safety. She does continue to be a fall risk due to walker safety. She does remain forgetful and confused, increasing her fall risk andrequiring increased cueing. Her pain seems to be improving in her hip however has reported increasein low back pain during recent sessions. She will benefit from further PT to reduce fall risk and improve strength, ROM, functional transfers and gait. Silvia Diaz, PT RN: Resident is medically stable. She is eating and drinking ok. Pain is controlled with current pain medication regimen. Mirian Diallo, RN Speech Summary/Recommendation: Resident presents with functional oropharyngeal swallow with no clinical s/s of penetration or aspiration with any consistency. Cranial nerve and laryngeal exam were unremarkable. Mastication of solids was complete without oral stasis. Patient was educated on results and recommendations as well as s/s to watch for if change in status were to occur. She demonstrated understanding. A regular diet with thin is recommended and no further acute UNDERWRITING ANALYST dysphagia intervention is warranted at this time. Discussed general aspiration precautions: Upright positioning 90 degrees, Small sips/bites, Slow rate. Resident reports that she coughs and sneezes when she eats maybe 1-2x a week. This has been happening for many years. No prior EGD or dysphagia work up. Discussed completing MBS as an outpatient at a later date if desired. Recommendations: Regular Solids, Thin Liquids Upright positioning 90 degrees Small sips/bites Slow rate Medication administration: With thin liquids Assistance/Supervision: Independent Resident/caregiver education Alisha Castillo CCC-UNDERWRITING ANALYST Care Conference held this date with resident and daughter Kylah Hills. Resident remains full code. She lives with daughter and plans on returning at discharge. Daughter lives on lower level of the home and discussed staying on main level and being responsible for meal prep, med management, and home management tasks during residents recovery. Daughter and resident agreeable to plan. Updated clinicals faxed to insurance yesterday for NRD and approved additional skilled days until 06/09. Resident and daughter stated that they would wait until Saturday 06/09 to determine if she would be ready to discharge home and attend follow up Ortho appointment Tuesday 06/12. If resident felt that she neededadditional skilled days NRD clinicals would be faxed same date. Resident agreeable to [facility] ([facility]) services at discharge. Referral sent to [facility] and orders placed on chart. Jeannette Quach LCSW * Silvia Diaz, PT - 06/06/2025 12:38 PM EDT 06/06/25 1133 [facility] PT Subjective Note Type Treatment/Progress Patient Room/Unit 106 PT Subjective Comments #1 agreeable to standing exercises. States she is tired today. Discharge Information This progress note will serve as the discharge summary if no further therapy is provided prior to the patient being discharged from the hospital. Pain Screening PT/OT Patient Currently in Pain Yes Pain Location Back Additional Comments Hip only hurts when up on it Cognition Orientation Intact Arousal Normal Safety Awareness Impaired Safety Awareness Impairment Minimal Impairments: Needs up to 25% input/direction from therapist in order to identify safety issues and maintain safety. Affect/Ability to cope Impaired Affect/Ability to cope impairment Anxious Command Following Impaired Command following impairment Minimal Impairments: Needs up to 25% input/direction from therapist inorder to follow single step commands. Memory Impaired Memory impairment Decreased recall of recent events Additional comments more confused and anxious this session Precautions Weight Bearing Status Left lower extremity;Weight bearing as tolerated Precaution Info Given Yes;To use call light to request assistance with all mobility Activity Tolerance Endurance Limits participation and activity Observation Presentation Patient seated in chair Observation Chair alarm Transfers Sit to Stand Contact guard assist;With verbal cues Stand to Sit Contact guard assistance;With verbal cues Gait Gait Not performed Balance Standing Balance 2/5 indep, requires both UE support Exercise Exercise Yes Additional Comments standing upright posture x 8 Standing Standing Heel Raises x 5 Marches x 10 B PT/OT Mobility Documentation PT/OT Mobility Score 6 Education Education Patient/Family Education;To use call light to request assistance with all mobility;Role of Therapy;Cues for proper technique;Safety with mobility;Discharge planning;Up with assistance only;Educated on benefits of mobility, upright positioning, and getting out of bed Additional Comments significant time spent today on educating on home safety, healing time, expectations post op, validating feelings of loneliness while in acute care. Patient Safety Patient Safety Patient left in chair with needs in reach;Nursing notified of status;Chair/personal alarm activated (daughter present at end of session) Assessment Assessment Decreased gait;Decreased functional mobility;Decreased balance;Decreased ADL status;Decreased Left Lower Extremity ROM;Decreased Left Lower Extremity strength;Decreased activity tolerance ;Decreased endurance Prognosis Good;With continued PT s/p acute discharge Progress Progressing toward goals Rationale for Skilled Therapy Fall Risk;Balance Deficits;Not safe with independent transfers;Not safe ambulating independently;Needs verbal/tactile cues for ADL's;Decreased endurance and tolerance toactivity;Able to make measurable improvements Additional Comments Noted increase in fatigue and cognition this date compared to prior sessions bythis PT. Doing well with physical progress howeverraj jensenu have increase in mental status/emotional well being currently. Patient improvedupon arrival of her daughter. Plan Treatment/Interventions Continue with current plan of care PT Frequency 5x/week Recommendation PT Recommendation Moderate frequency, moderate intensity five days a week therapy recommended. Time In / Time Out 0957/1012 [facility] Actual Physical Therapy Minutes LTC PT Ind Therapy Min 15 Silvia Diaz, PT, DPT * Katya Ott, PT - 06/06/2025 9:56 AM EDT Physical Therapy Weekly Progress Report Dates this Report Includes: 05/30/25 to 06/06/25 Patricia Hills has been receiving physical therapy 5-6 times a week for the last week. Specifically they have been receiving therapeutic exercises in order to increase strength and endurance, therapeutic activities to work on functional transfers and bed mobility, and gait training in order to improve balance, improve gait and decrease assistance . Patricia Hills has made progress as noted below LTC PT Weekly Progress Note Functional Mobility First Filed Supine to Sit Moderate assistance, With 2 people, With cues (05/30/25951) Sit to Supine Moderate assistance (assist with LLE. CGA at trunk to encourage correct alignment in the bed.) (06/05/251024) Sit to Stand Moderate assistance, With 2 people, Walker, With verbal cues (05/30/25951) Stand to Sit Moderate assistance, With 2 people, With verbal cues (05/30/25951) Gait Not performed (05/30/25951) Gait Distance (Feet) 20 Feet (05/31/251103) Assistive Device 2 Wheel walker (05/31/251103) Pattern Slow desiree, Flexed posture (05/31/251103) Weight Bearing Status Weight bearing as tolerated (05/31/251103) Additional Comments Ambulated a little bit into hallway to turn around before returning to sit in the chair. Needs cueing to keep walker close to her. (05/31/251103) Stair Management Technique Stair Management Assistance Not performed (05/30/25951) Number of Stairs Gait Additional Comments Sitting Balance 2/5 supports self independently with both UEs (05/30/25951) Standing Balance 1+/5>50% (minimal assistance) (05/30/25951) Other Functional Mobility Supine to Sit Contact guard assist (06/01/25928) Sit to Supine Moderate assistance (assist with LLE. CGA at trunk to encourage correct alignment in the bed.) (06/05/251024) Sit to Stand Contact guard assist, With verbal cues (06/06/25840) Stand to Sit Contact guard assistance, With verbal cues (06/06/25840) Gait Contact guard assist, Minimal assistance (06/06/25840) Gait Distance (Feet) 70 Feet (06/06/25840) Assistive Device 2 Wheel walker (06/06/25840) Pattern Slow desiree, Flexed posture (06/06/25840) Weight Bearing Status Weight bearing as tolerated (06/06/25840) Additional Comments needs VC and MC to stay in walker (06/06/25 0841) Stair Management Technique Stair Management Assistance Not performed (06/05/25 1025) Number of Stairs Gait Additional Comments Sitting Balance 3/5 sits without UE support up to 30 seconds (06/05/25 1025) Standing Balance Other (Comment) (Pt refused to stand for fear of hip pain increasing.) (06/05/25 2609) Other Goal Status: Patient is progressing towards goals and they have been updated in the weekly flowsheet 06/05/25 Patient progressing towards goals slowly but the goals are still appropriate. Recommend continuing physical therapy for another 1-2 weeks to continue to work specifically on functional mobility in order for the patient to return home and be safe living with caregiver/dtr. 06/06/2025 * Katya Ott, PT - 06/06/2025 9:45 AM EDT 06/06/25 0841 [facility] PT Subjective Note Type Treatment/Progress Patient Room/Unit 106 PT Subjective Comments #1 wanted her breakfast first but then agreed after a few drinks of coffee from nursing. Others Present/Assisting SANTOS Jones taking blood sugarL 105, Thi: Resp doing breathing treatment Pain Screening PT/OT Patient Currently in Pain Yes Pain Rating 6 Pain Location Hip;Back Pain Orientation Left Pain Intervention(s) Emotional support Cognition Orientation Intact Arousal Normal Safety Awareness Impaired Safety Awareness Impairment Minimal Impairments: Needs up to 25% input/direction from therapist in order to identify safety issues and maintain safety. Affect/Ability to cope Impaired Affect/Ability to cope impairment Agitated Command Following Impaired Command following impairment Minimal Impairments: Needs up to 25% input/direction from therapist inorder to follow single step commands. Memory Impaired Memory impairment Decreased recall of recent events Communication Intact Precautions Therapy Precautions Yes Weight Bearing Status Left lower extremity;Weight bearing as tolerated Precaution Info Given Yes;Weight bearing;To use call light to request assistance with all mobility Activity Tolerance Endurance Limits participation and activity Observation Presentation Patient seated edge of bed (with nursing and RT) Observation Bed alarm Transfers Sit to Stand Contact guard assist;With verbal cues Stand to Sit Contact guard assistance;With verbal cues Additional Comments patient needs lots of verbal and manual cues for hand placement and cues to move up in bed Gait Gait Contact guard assist;Minimal assistance Gait Distance (Feet) 70 Feet Assistive Device 2 Wheel walker Pattern Slow desiree;Flexed posture Weight Bearing Status Weight bearing as tolerated Additional Comments needs VC and MC to stay in walker Exercise Exercise Yes Seated Seated LAQ's 20x Seated Hip Flex/Marching 10x Seated Hip ADD Isometrics 10x Seated DF/PF 20x PT/OT Mobility Documentation PT/OT Mobility Score 6 Education Education To use call light to request assistance with all mobility;Patient/Family Education;Role of Therapy;Safety with mobility;Cues for proper technique;Up with assistance only Patient Safety Patient Safety Patient left in chair with needs in reach;Chair/personal alarm activated Assessment Rationale for Skilled Therapy Fall Risk;Balance Deficits Plan Treatment/Interventions Continue with current plan of care Recommendation Time In / Time Out 756/815 [facility] Actual Physical Therapy Minutes LTC PT Ind Therapy Min 19 Katya Ott, MOHAN * Leonila Lopez RN - 06/06/2025 3:29 AM EDT Patient up numerous times thus far in shift to bathroom. She is alert with some confusion. She has to be cued to get out of bed, encouraged to remove the covers off her feet and legs so she can get up. She has been pleasant with staff but thinks we sleep until someone needs help. She has apologizedfor waking me up numerous times this evening. Pressure areas to her buttock continue to be painful to her, orange cream applied every time she has used the bathroom. Staff has encouraged her to lay on her side to alleviate pressure on her buttocks. She is currently on her right side. Call light andbedside table within reach, bed alarm on for patient safety 0603- Patient has had intermittent confusion throughout the night. Continues to think staff sleeps at night, couldn't find her call light though it was placed where she asked for it to be. Stated golden had been hurting all night yet when asked why she hadn't mentioned it on the numerous times in/out of room she stated it just started. Care conference scheduled for today may have her worried, stated she was afraid of what they were going to say. Staff explained the care conference was a time for her to speak as well. Call light and bedside table within reach * Geo Sargent V, - 06/05/2025 10:40 PM EDT Patricia Hills is a 84 y.o. female patient. Assessment: Condition: In stable condition. Improving. Present on Admission: ?? Fractured hip, left, closed, initial encounter (HCC) ?? Type 2 diabetes mellitus without complication, without long-term current use of insulin (HCC) ?? Essential hypertension ?? 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 Adrenal adenoma, left ?? Left renal mass ?? Left lower lobe pulmonary nodule . Plan: Out of bed and up to chair, per physical therapy, encourage ambulation, up to wheel chair and ad sebastian activity. Consults: medicine. Regular diet. Administer medications as ordered and resume home regimen. Present on Admission: ?? Fractured hip, left, closed, initial encounter (HCC) ?? Type 2 diabetes mellitus without complication, without long-term current use of insulin (HCC) ?? Essential hypertension ?? 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 Adrenal adenoma, left ?? Left renal mass ?? Left lower lobe pulmonary nodule Continue PT/ OT MRI refused of abdomen to evulate renal mass Check cbc and bmp for am . Active Hospital Problems Diagnosis *Fractured hip, left, closed, initial encounter (HCC) Type 2 diabetes mellitus without complication, without long-term current use of insulin (HCC) Essential hypertension 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 Adrenal adenoma, left Left renal mass Left lower lobe pulmonary nodule Subjective Subjective: Symptoms: Stable. Diet: Adequate intake. No nausea. Activity level: Impaired due to weakness. Pain: She reports pain is improving. Pain is well controlled. Review of Systems is normal except as noted above. Objective Objective: General Appearance: Comfortable. Vital signs: (most recent): Blood pressure (!) 141/39, pulse 91, temperature 98 ??F (36.7 ??C), temperature source Oral, resp. rate 18, height 5' 2 (1.575 m), weight 135 lb 12.9 oz (61.6 kg), SpO2 94%. Vital signs are normal. No fever. Output: Producing stool. HEENT: Normal HEENT exam. Lungs: Normal effort and normal respiratory rate. Breath sounds clear to auscultation. Heart: Normal rate. Regular rhythm. S1 normal and S2 normal. Abdomen: Abdomen is soft. Bowel sounds are normal. Extremities: Decreased range of motion. Neurological: Patient is alert and oriented to person, place and time. Pupils: Pupils are equal, round, and reactive to light. Skin: Warm. Radiology/ Procedures/ Labs Pertinent imaging studies, procedures and labs were reviewed. Geo Merchant DO 06/05/2025 10:40 PM * Celso Walker, OT - 06/05/2025 5:09 PM EDT 06/05/25 1659 [facility] OT Subjective Note Type Treatment/Progress OT Subjective Comments #1 I am very frustrated. All you say is one more. I want to be at home and you can just leave. Discharge Information This progress note will serve as the discharge summary if no further therapy is provided prior to the patient being discharged from the hospital. Precautions Therapy Precautions Yes Weight Bearing Status Left lower extremity;Weight bearing as tolerated Precaution Info Given Yes;Weight bearing;To use call light to request assistance with all mobility Additional Comments Review of call light use Cognition Orientation Intact Arousal Normal Affect/Ability to cope Impaired Affect/Ability to cope impairment Agitated;Distracted;Other (comment) (Pt agitation increased throughout session. Pt reported frustration at not being able to find phone (referring to call light) despite it being in bed this morning. Call light on table and pt able to find.) Command Following Impaired Command following impairment Minimal Impairments: Needs up to 25% input/direction from therapist inorder to follow single step commands. Pain Screening PT/OT Patient Currently in Pain Yes Pain Rating 2 Pain Location Hip Pain Orientation Left Pain Intervention(s) Repositioned Observation Presentation Patient seated in chair Observation Chair alarm Additional Comments Pt chair reclined and pt slid down in chair upon arrival. Pt refused to reposition self. Pt agreed to complete BUE exercises. Pt calmed down near end of session and agreed to reposition in chair for dinner. ADL Interventions Where Assessed Chair Grooming Assistance Set up;Hair care;Washing hands;Washing face (washcloth and brush provided.) Additional Comments Pt declined need to toilet, did not feel like dressing, and reported, I had a bath Thursday. Transfers Sit to Stand Contact guard assist;With verbal cues Stand to Sit Contact guard assistance;With verbal cues Additional Comments MOD verbal/visual cues required for hand placement and repositioning self in chair. Balance Standing Balance Other (Comment) (Pt refused to stand for fear of hip pain increasing.) Activity Tolerance Endurance Limits participation and activity Interventions Equipment Training call light review Exercise Exercise Yes Upper Extremity Exercises Shoulder Flexion 2# BUE 10 reps MOD cues for accuracy. Shoulder Abduction 2# BUE 10 reps MOD cues for accuracy. Shoulder Internal Rotation 2# BUE 10 reps gravity eliminated Shoulder External Rotation 2# BUE 10 reps gravity eliminated Biceps 2# BUE 10 reps MOD cues for accuracy. Triceps 2# BUE 10 reps MOD cues for accuracy. Wrist Flexion/Extension 2# BUE 10 reps MOD cues for accuracy. Wrist Supination/Pronation 2# BUE 10 reps MOD cues for accuracy. Education Education To use call light to request assistance with all mobility;Patient/Family Education;Role of Therapy;Cues for proper technique;Up with assistance only;Precautions;Safe and proper technique with transfers Patient Safety Patient left in chair with needs in reach;Nursing notified of status;Chair/personal alarm activated Additional Comments Chair repositioned to upright for dinner. Pt verbalized understanding. Pt reported desire for sherbert, but fear that she would not have enough time to eat. Pt encouraged that time would allow for sherbert after meal. Pt stated, We are going to argue about this. I am a [place] and they are known for holding their own. Pt redirected after agitation increased. Assessment Rationale for Skilled Therapy Fall Risk;Balance Deficits;Not safe with independent transfers;Needs verbal/tactile cues for ADL's;Needs physical cues for ADL's;Not independent with home exercise program;Requires physical assistance with ADLs;Decreased endurance and tolerance to activity Additional Comments Pt progressing AEB increased ability to tolerate BUE exercises this date. Agitation increased during this session and pt resistive to trying activities that OT recommended. Uncertain if it is pt fear of pain, fatigue, or mental status. Pt reported that she felt that people were looking in her door. NSG notified of pt status during session with increased agitation. Pt resistiveto ADLs frequently during OT sessions. Plan Additional Comments Continue OT per POC to increase independence with ADLs. Recommendation OT Recommendation Moderate frequency, moderate intensity five days a week therapy recommended. Time In / Time Out 16:18-16:54 LT Actual Occupational Therapy Minutes LTC Individual Therapy Minutes 36 * Mirian Diallo, SANTOS - 06/05/2025 4:14 PM EDT [facility] [place]. Ortega. Patient has a follow up apt with Dr. Ortega on 06/12. Dr. Wilkerson office staff said that if the patient will not be discharged from [facility] by then, the staff nurse here at [facility] would need to remove the everton and contact their office for further instructions. * Silvia Diaz, PT - 06/05/2025 10:58 AM EDT 06/05/25 1025 [facility] PT Subjective Note Type Treatment/Progress Patient Room/Unit 106 PT Subjective Comments #1 Patient agreeable to walk. She would like to then go to bed and take a nap. Discharge Information This progress note will serve as the discharge summary if no further therapy is provided prior to the patient being discharged from the hospital. Pain Screening PT/OT Patient Currently in Pain Yes Additional Comments did not rate Cognition Orientation Intact Arousal Normal Command Following Impaired Command following impairment Minimal Impairments: Needs up to 25% input/direction from therapist inorder to follow single step commands. Precautions Therapy Precautions Yes Weight Bearing Status Left lower extremity;Weight bearing as tolerated Precaution Info Given Yes;To use call light to request assistance with all mobility Activity Tolerance Endurance Limits participation and activity Observation Presentation Patient seated in chair Observation Chair alarm Bed Mobility Sit to Supine Moderate assistance (assist with LLE. CGA at trunk to encourage correct alignment in the bed.) Transfers Sit to Stand Minimal assistance;Walker (CGA at start and Megan at end of session.) Stand to Sit Contact guard assistance;With verbal cues Gait Gait Minimal assistance (1-2 occurances of Megan during gait, otherwise CGA.) Assistive Device 2 Wheel walker Pattern Slow desiree;Flexed posture Weight Bearing Status Weight bearing as tolerated Stair Management Assistance Not performed Balance Sitting Balance 3/5 sits without UE support up to 30 seconds Standing Balance 2/5 indep, requires both UE support Exercise Exercise Yes Seated Seated LAQ's x 10 LLE, x 15 RLE Seated Hip Flex/Marching x 5 LLE x 10 RLE Seated Hip ADD Isometrics x 10 Seated DF/PF x 10 PT/OT Mobility Documentation PT/OT Mobility Score 6 Education Education To use call light to request assistance with all mobility Patient Safety Patient Safety Patient left in chair with needs in reach;Nursing notified of status;Chair/personal alarm activated Assessment Assessment Decreased gait;Decreased functional mobility;Decreased ADL status;Decreased balance;Decreased Left Lower Extremity ROM;Decreased Left Lower Extremity strength;Decreased activity tolerance Prognosis Good;With continued PT s/p acute discharge Progress Progressing toward goals Rationale for Skilled Therapy Fall Risk;Balance Deficits;Not safe with independent transfers;Not safe ambulating independently;Decreased endurance and tolerance to activity;Able to make measurable improvements Goals Will Perform Supine To Sit Not assessed Will Perform Sit to Supine Not met (ModA for LLE) Will Perform Sit to Stand Partly met (Met at start of session, Needs Megan as she fatigues.) Will Transfer Bed/Chair Partly met Will Ambulate Partly met (Needs increased as she fatigues) Will Tolerate Exercise Not met (3-5 reps) Plan Treatment/Interventions Continue with current plan of care PT Frequency 5x/week Recommendation PT Recommendation Moderate frequency, moderate intensity five days a week therapy recommended. (HHPT at discharge) Time In / Time Out 59/0 LTC Actual Physical Therapy Minutes LTC PT Ind Therapy Min 21 Silvia Diaz PT, DPT * Silvia Diaz PT - 06/05/2025 9:13 AM EDT 06/05/25 0906 [facility] PT Subjective Note Type Treatment/Progress Patient Room/Unit 106 PT Subjective Comments #1 Patient agreeable to PT. She has one more bite of breakfast. Discharge Information This progress note will serve as the discharge summary if no further therapy is provided prior to the patient being discharged from the hospital. Pain Screening PT/OT Patient Currently in Pain Yes Pain Rating 3 Pain Location Hip Pain Orientation Left Pain Intervention(s) Ambulation/Increased activity Cognition Orientation Intact Arousal Normal Command Following Impaired Command following impairment Minimal Impairments: Needs up to 25% input/direction from therapist inorder to follow single step commands. (cueing to continue reps during exercises.) Precautions Therapy Precautions Yes Weight Bearing Status Left lower extremity;Weight bearing as tolerated Precaution Info Given Yes;To use call light to request assistance with all mobility Activity Tolerance Endurance Limits participation and activity Observation Presentation Patient seated in chair Exercise Exercise Yes Supine Supine Ankle Pumps x 15 Supine Quad Sets x 20 in recliner Supine Heelslides x 15 with PT assist while in recliner for ROM PT/OT Mobility Documentation PT/OT Mobility Score 6 Education Education To use call light to request assistance with all mobility;Patient/Family Education;Safetywith mobility;Role of Therapy;Educated on benefits of mobility, upright positioning, and getting out of bed Patient Safety Patient Safety Patient left in chair with needs in reach;Nursing notified of status (alarm not set upon entry.) Assessment Assessment Decreased gait;Decreased functional mobility;Decreased balance;Decreased ADL status;Decreased Left Lower Extremity ROM;Decreased Left Lower Extremity strength;Decreased activity tolerance Prognosis Good;With continued PT s/p acute discharge Progress Progressing toward goals Rationale for Skilled Therapy Fall Risk;Balance Deficits;Not safe with independent transfers;Not safe ambulating independently;Decreased endurance and tolerance to activity;Able to make measurable improvements Plan Treatment/Interventions Continue with current plan of care PT Frequency 5x/week Recommendation PT Recommendation Moderate frequency, moderate intensity five days a week therapy recommended. (HHPT at discharge) Time In / Time Out 0835/0845 PT Weekly Progress PT Weekly Progress Note Due Date 06/06/25 LTC Actual Physical Therapy Minutes LTC PT Ind Therapy Min (!) 10 Silvia Diaz PT, DPT * Maylin Loya RN - 06/05/2025 4:48 AM EDT Pt is A/O x4 but can be forgetful at times, Transfers w/ assist of 1, Room Air, Lung sounds diminished. No c/o of SOB. Vitals stable. C/o pain to left hip. Prn administered per orders. Pt has rested well throughout the night. For safety non skid socks are on and bed is in lowest position w/ call light in reach. * Janet Porras RN - 06/04/2025 5:37 PM EDT Pt alert, forgetful at times, up in the chair for meals. Surgical site to left hip C/D/I with everton on, open to air. Repositioned for comfort. Walked in the hallways this afternoon. PRN Tylenol given for complaints of pain to left hip along with repositioning. Pt refused heating pad today. Will keep monitoring. * Maylin Loya RN - 06/04/2025 6:02 AM EDT Pt is A/O x 4 but can be forgetful at times, Transfers w/ assist of 1, Room Air, Lung sounds Diminished. No c/o of SOB. Vitals stable. C/o pain to Left hip. PRN administered per orders. For safety non skid socks and alarms are in use. Bed is in lowest position w/ call light in reach. * Janet Porras RN - 06/03/2025 6:46 PM EDT Up in the chair for meals, surgical site to left hip C/D/I with everton on, open to air. PRN Tylenol given for pain in the left hip, per pt Tylenol not working. Pt doesn't want to take Norton, per pt Norton makes her confused. notified and seen and examined pt. Heating pad applied with effectiveness noted. Walked pt in the hallway and ambulated 40 feet altogether. No complaints in the afternoon. Will keep monitoring. * Katya Ott, PT - 06/03/2025 5:20 PM EDT 06/03/25 1719 PT Subjective Note Type Follow Up Treatment Attempt Patient Room/Unit 106 Therapy delay reason Patient not feeling well (reports her legs are hurting) Katya Ott, PT * Robbin Pedraza DO - 06/03/2025 3:43 PM EDTAssociated Problem(s): Fractured hip, left, closed, initial encounter (HCC) -s/p surgery -Asked to evaluated 06/03 d/t increased pain L hip this AM -D/w patient - notes that she just received a dose of tylenol and is feeling much better. She reports prior bad experience with narcotics and prefers to avoid. Typically avoids NSAIDs d/t GI side effects when she takes. -Continue prn tylenol. Add heating pad prn. Discussed considering scheduled high dose tylenol should pain return/worsen +/- lidocaine patch. Patient agreeable with this plan * Robbin Pedraza DO - 06/03/2025 3:43 PM EDTAssociated Problem(s): Type 2 diabetes mellitus without complication, without long-term current useof insulin (HCC) -BG stable, at goal 157 most recent -Lantus, metformin, insulin calculator * Robbin Pedraza DO - 06/03/2025 3:43 PM EDTAssociated Problem(s): Essential hypertension -BP stable 146/86 -Continue losartan * Robbin Pedraza DO - 06/03/2025 3:43 PM EDTAssociated Problem(s): 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 -No chest pain 06/03 -Continue ASA, statin, BB * Robbin Pedraza DO - 06/03/2025 3:43 PM EDTAssociated Problem(s): Adrenal adenoma, left -Stable * Robbin Pedraza DO - 06/03/2025 3:43 PM EDTAssociated Problem(s): Left renal mass -Noted patient refused further workup/imaging at this time * Robbin Pedraza DO - 06/03/2025 3:43 PM EDTAssociated Problem(s): Left lower lobe pulmonary nodule -Repeat CT 6-12 months outpatient * Robbin Pedraza DO - 06/03/2025 3:36 PM EDT PROGRESS NOTE Assessment/Plan: Assessment & Plan Fractured hip, left, closed, initial encounter (HCC) -s/p surgery -Asked to evaluated 06/03 d/t increased pain L hip this AM -D/w patient - notes that she just received a dose of tylenol and is feeling much better. She reports prior bad experience with narcotics and prefers to avoid. Typically avoids NSAIDs d/t GI side effects when she takes. -Continue prn tylenol. Add heating pad prn. Discussed considering scheduled high dose tylenol should pain return/worsen +/- lidocaine patch. Patient agreeable with this plan Type 2 diabetes mellitus without complication, without long-term current use of insulin ([facility]) -BG stable, at goal 157 most recent -Lantus, metformin, insulin calculator Essential hypertension -BP stable 146/86 -Continue losartan 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 -No chest pain 06/03 -Continue ASA, statin, BB Adrenal adenoma, left -Stable Left renal mass -Noted patient refused further workup/imaging at this time Left lower lobe pulmonary nodule -Repeat CT 6-12 months outpatient D/w RN Dispo: Skilled Active Hospital Problems Diagnosis *Fractured hip, left, closed, initial encounter ([facility]) Type 2 diabetes mellitus without complication, without long-term current use of insulin ([facility]) Essential hypertension 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 Adrenal adenoma, left Left renal mass Left lower lobe pulmonary nodule Subjective: Patient sitting in chair, no acute distress. Denies chest pain, dyspnea. Noted slightly increased pain L hip this AM - thinks because no recent doses of tylenol. Received dose and now feeling much better. Plan discussed in detail and will continue with prn tylenol for now as desired. Objective: BP 146/86 (BP Location: Left arm) Pulse 72 Temp 98.7 ??F (37.1 ??C) (Oral) Resp 20 Ht 5' 2 (1.575 m) Wt 142 lb 3.2 oz (64.5 kg) SpO2 94% BMI 26.01 kg/m?? I/O last 3 completed shifts: In: 1318 [P.O.:1318] Out: - Weight: 142 lb 3.2 oz (64.5 kg) Constitutional: Alert and oriented to person, place, and time. No distress. Cardiovascular: Normal rate and regular rhythm. Exam reveals no friction rub. No murmur heard. Pulmonary/Chest: Effort normal and breath sounds normal. No respiratory distress. There are no wheezes. Abdominal: Soft. Bowel sounds are normal. No distension. There is no tenderness. There is no rebound and no guarding. Musculoskeletal: No edema. Neurological: Grossly normal. Skin: Skin is warm and dry. No erythema. L hip incision c/d/i Labs: Laboratory data and diagnostic testing reviewed 06/03/25. Robbin Pedraza DO 06/03/2025 3:36 PM 36 minutes spent on evaluation and treatment including, but not limited to, reviewing patient's medication list, nurse and specialist notes, labs and imaging, prior and recent medical records, and discussing appropriate information with the patient and/or family. Discussed with RN. * Mirian Diallo RN - 06/02/2025 5:47 PM EDT Assisted pt with shower. was able to transfer with the walker to the shower chair x1 assist. pt wasable to help wash herself, and I assisted in areas she could not reach. Patient tolerated the shower very well. no concerns a this time. pt resting in chair with dinner. * Celso Walker OT - 06/02/2025 4:55 PM EDT 06/02/25 1643 [facility] OT Subjective Note Type Treatment/Progress OT Subjective Comments #1 I am not doing a bath or a shower right now. At end of session when OT provided menu options from beside table, pt stated, Get her out of here. She is trying to get me too much food. Others Present/Assisting Nutrition-Farida Mares Discharge Information This progress note will serve as the discharge summary if no further therapy is provided prior to the patient being discharged from the hospital. Precautions Therapy Precautions Yes Weight Bearing Status Left lower extremity;Weight bearing as tolerated Precaution Info Given Yes;To use call light to request assistance with all mobility;Weight bearing Cognition Orientation Intact Arousal Normal Command Following Impaired Command following impairment Minimal Impairments: Needs up to 25% input/direction from therapist inorder to follow single step commands. Additional comments Increased difficulty positioining self in chair this date for comfort. Pain Screening Additional Comments did not rate or report Observation Presentation Patient seated in chair Observation Chair alarm ADL Interventions Grooming Assistance Set up;Hair care (brushed hair after setup.) UE Bathing Assistance TARA (pt declined multiple attempts-reports desire to wait for Mirta despite OT explaining OT role.) LE Bathing Assistance TARA (pt declined multiple attempts-reports desire to wait for Mirta despite OT explaining OT role.) Additional Comments Pt declined toileting and all other ADLs this date despite OT explaining OT role. Pt reported not sleeping well last night and may be tired during session. Transfers Sit to Stand Contact guard assist Stand to Sit Contact guard assistance;With verbal cues Additional Comments Pt repositioned in chair after standing as pt continued to slide forward. Nsg notified of OT moving pillows and back of chair to allow for upright in chair when sitting. Balance Standing Balance 2+/5 indep, requires 1 UE support Functional Balance Pt stood for 3 min with F+ static stand balance during 1- handed tasks. Activity Tolerance Endurance Limits participation and activity Interventions Equipment Training Review of RW use and recommendations to hold RW at all times with 1 hand at a minimum to decrease fall risk. Transfer Training Pt encouraged to call for nsg assistance for mobility needs. Pt expressed difficulty knowing how to use call light. Call light system reviewed. Additional Comments Pt reported feeling lonesome this date and desire to return home. OT inquired of leisure interest. Pt reported desire to read, read bible, [employer] puzzles and coloring. Activity area accessed and items for pt leisure interests provided to assist with coping with skilled placement. Pt verbalized understanding. Exercise Exercise Yes Additional Comments Pt completed red theraband ex x10 reps with focus on sh and elbow muscle groups. Education Education To use call light to request assistance with all mobility;Patient/Family Education;Role of Therapy;Safety with mobility;Cues for proper technique;Up with assistance only;Precautions;Safe and proper technique with transfers;Educated on benefits of mobility, upright positioning, and gettingout of bed Patient Safety Patient left in chair with needs in reach;Nursing notified of status;Chair/personal alarm activated Additional Comments Pt educated to not cross legs. Pt had LLE crossed over RLE. Pt encouraged not to complete crossing of legs as a precaution. Assessment Progress Improving as expected Rationale for Skilled Therapy Fall Risk;Balance Deficits;Not safe with independent transfers;Needs verbal/tactile cues for ADL's;Needs physical cues for ADL's;Not independent with home exercise program;Requires physical assistance with ADLs;Decreased endurance and tolerance to activity Additional Comments Pt improving with increased tolerance of BUE theraband exercises. However, pt reported feeling confused at times since injury to L hip. Pt educated that OT's role is to assist in returning to PLOF. Pt verbalized understanding. Call light reviewed for safety. Pt requires MOD encouragement to engage in activities and has strong boundary/limit to when she is finished with therapy/exercises. Pt easily agitated this date when OT assisting pt in familiarizing self with menu and varied menu options as pt reported feeling hungry. Session ceased to prevent further agitation. Nsg aware and reported pt is able to use call light appropriately. Plan Additional Comments Continue OT with focus on ADL retraining, ADL transfer training, BUE strengthening, and safety awareness. Recommendation OT Recommendation Moderate frequency, moderate intensity five days a week therapy recommended. Time In / Time Out 15:55-16:30 LTC Actual Occupational Therapy Minutes LTC Individual Therapy Minutes 35 * Katya Ott, PT - 06/02/2025 3:57 PM EDT 06/02/25 1551 [facility] PT Subjective Note Type Treatment/Progress Patient Room/Unit 106 PT Subjective Comments #1 willing to walk again Others Present/Assisting Thi RT:for treatment after session Pain Screening PT/OT Patient Currently in Pain Yes Pain Rating 5 Pain Location Hip Pain Orientation Left Cognition Orientation Intact Precautions Therapy Precautions Yes Weight Bearing Status Left lower extremity;Weight bearing as tolerated Precaution Info Given Yes;To use call light to request assistance with all mobility Activity Tolerance Endurance Limits participation and activity Observation Presentation Patient seated in chair Observation Chair alarm Transfers Sit to Stand Contact guard assist Stand to Sit Contact guard assistance Gait Gait Contact guard assist;Minimal assistance Gait Distance (Feet) 70 Feet Assistive Device 2 Wheel walker Pattern Slow desiree;Decreased stance time L Weight Bearing Status Weight bearing as tolerated Additional Comments needs VC and MC cues to remain in walker Exercise Exercise Yes Additional Comments anther sit to stand for practice which was weak at Min A Seated Seated LAQ's 10x Seated Hip Flex/Marching 10 Seated DF/PF 15x PT/OT Mobility Documentation PT/OT Mobility Score 6 Education Education To use call light to request assistance with all mobility;Role of Therapy;Patient/Family Education;Safety with mobility;Cues for proper technique;Up with assistance only Patient Safety Patient Safety Patient left in chair with needs in reach;Chair/personal alarm activated Assessment Progress Progressing toward goals Plan Treatment/Interventions Continue with current plan of care PT Frequency 5x/week Recommendation PT Recommendation Moderate frequency, moderate intensity five days a week therapy recommended. Additional PT discharge information HHPT at discharge Time In / Time Out 1520/1533 [facility] Actual Physical Therapy Minutes [facility] PT Ind Therapy Min (!) 13 Katya Ott PT * Alex Mayberry, PT - 06/02/2025 1:50 PM EDT 06/02/25 1349 [facility] PT Subjective Note Type Follow Up Treatment Attempt Patient Room/Unit 106 Therapy delay reason Patient declined * Katya Ott, PT - 06/02/2025 1:07 PM EDT 06/02/25 1306 PT Subjective Note Type Follow Up Treatment Attempt Patient Room/Unit 106 Others Present/Assisting daughter Therapy delay reason Patient eating Katya Ott PT * Alex Mayberry, PT - 06/02/2025 11:37 AM EDT 06/02/25 1134 [facility] PT Subjective Note Type Treatment/Progress Patient Room/Unit 106 PT Subjective Comments #1 Agreeable to session Others Present/Assisting Daughter at start of session Discharge Information This progress note will serve as the discharge summary if no further therapy is provided prior to the patient being discharged from the hospital. Pain Screening PT/OT Patient Currently in Pain Yes Pain Rating 5 Pain Location Hip Pain Orientation Left Cognition Orientation Intact Arousal Normal Precautions Therapy Precautions Yes Weight Bearing Status Left lower extremity;Weight bearing as tolerated Precaution Info Given Yes;To use call light to request assistance with all mobility Activity Tolerance Endurance Limits participation and activity Observation Presentation Patient seated in chair Observation Chair alarm Transfers Sit to Stand Contact guard assist;With verbal cues Stand to Sit Contact guard assistance;With verbal cues Gait Gait Minimal assistance;With verbal cues Gait Distance (Feet) 75 Feet Assistive Device 2 Wheel walker Pattern Slow desiree;Decreased stance time L Weight Bearing Status Weight bearing as tolerated Additional Comments VC's to remain within RW josue Exercise Exercise Yes Seated Seated LAQ's 10 Seated Hip Flex/Marching 10 Seated DF/PF 10 PT/OT Mobility Documentation PT/OT Mobility Score 6 Education Education To use call light to request assistance with all mobility;Up with assistance only;Role ofTherapy;Patient/Family Education;Safety with mobility Patient Safety Patient Safety Patient left in chair with needs in reach;Chair/personal alarm activated Assessment Assessment Decreased gait;Decreased functional mobility;Decreased balance;Decreased Left Lower Extremity strength;Decreased RightLower Extremity strength;Decreased trunk strength;Decreased safety judgement ;Decreased endurance Prognosis Good;With continued PT s/p acute discharge Progress Slow progress toward goals Rationale for Skilled Therapy Fall Risk;Balance Deficits;Not safe with independent transfers;Not independent with home exercise program;Not safe ambulating independently;Decreased endurance and tolerance to activity Plan Treatment/Interventions Continue with current plan of care PT Frequency 5x/week Recommendation PT Recommendation Moderate frequency, moderate intensity five days a week therapy recommended. Time In / Time Out 1112/1130 L[facility] Actual Physical Therapy Minutes LTC PT Ind Therapy Min 18 * Hugh Zamarripa MD - 06/02/2025 7:01 AM EDT Patricia Hills is a 84 y.o. female patient. Assessment: Condition: In stable condition. Improving. Plan: Left hip fracture-status post surgery, stable continue meds and physical therapy Type 2 diabetes-consistently in the 200s on Accu-Cheks, continue sliding scale, started Lantus 10 units Hypertension-blood pressure 149/43-continue meds Coronary artery disease stable-on aspirin, Plavix, metoprolol and Crestor Adrenal adenoma-CAT scan abdomen 17 mm adrenal adenoma stable Renal mass-13 mm mass on CAT scan, recommend MRI-patient refused Lung nodule 4 mm nodule outside CAT scan, would repeat at 6 to 12 months after discharge. Active Hospital Problems Diagnosis *Fractured hip, left, closed, initial encounter (HCC) Type 2 diabetes mellitus without complication, without long-term current use of insulin (HCC) Essential hypertension 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 Adrenal adenoma, left Left renal mass Left lower lobe pulmonary nodule Subjective Subjective: Symptoms: Stable. No shortness of breath. (Left hip pain). Diet: Adequate intake. Activity level: Impaired due to pain. Pain: She complains of pain that is moderate. She reports pain is improving. Pain is well controlled. Review of Systems is normal except as noted above. Objective Objective: General Appearance: Comfortable. Vital signs: (most recent): Blood pressure 149/43, pulse 77, temperature 99.1 ??F (37.3 ??C), temperature source Oral, resp. rate 16, height 5' 2 (1.575 m), weight 142 lb 3.2 oz (64.5 kg), SpO2 93%.Vital signs are normal. No fever. Output: Producing urine and producing stool. Lungs: Normal effort and normal respiratory rate. Breath sounds clear to auscultation. She is not in respiratory distress. No stridor. No rales, decreased breath sounds, wheezes or rhonchi. Heart: Normal rate. Regular rhythm. No murmur, gallop or friction rub. Chest: Symmetric chest wall expansion. No chest wall tenderness. Abdomen: Abdomen is soft and non-distended. Bowel sounds are normal. There is no abdominal tenderness. There is no mass. There is no splenomegaly. There is no hepatomegaly. Extremities: There is no dependent edema. (Left hip pain) Pulses: Distal pulses are intact. Neurological: Patient is alert and oriented to person, place and time. Skin: Warm and dry. No rash. Radiology/ Procedures/ Labs Pertinent imaging studies, procedures and labs were reviewed. Hugh Zamarripa MD 06/02/2025 7:06 AM * Breana Griffin, PARTS CHASER - 06/01/2025 8:16 PM EDT Respiratory Therapy Adult Patient Assessment Scoring Adult Patient Assessment Scoring Pulmonary Status: Chronic COPD/Asthma Chest X-ray: Clear or not indicates Respiratory Pattern: Regular RR 12-20 Breath Sounds: Diminished Cough Effectiveness: Strong spontaneous, non-productive Oxygen required to keep SpO2 > or equal to 90: No oxygen use or baseline home use Score: 3 Score 0-4 = No medications indicated or place patient on home regimen Score 5-8 = Patient meets criteria for PRN or Home Regimen Score 9-15 = Patient meets criteria for QID & PRN Score > or equal to 16 = Patient meets criteria for Q6 & PRN Pt stated would not like to be woke up for 2am tx since her admission. Changed frequency of scheduled to QID. * Celso Walker, OT - 06/01/2025 3:47 PM EDT 06/01/25 1502 [facility] OT Subjective Note Type Treatment/Progress OT Subjective Comments #1 I won't say I'll do it this way at home because I'll probably do it my own way. Others Present/Assisting Sandy-niece Precautions Therapy Precautions Yes Weight Bearing Status Left lower extremity;Weight bearing as tolerated Precaution Info Given Yes;To use call light to request assistance with all mobility;Weight bearing Cognition Orientation Intact Arousal Normal Safety Awareness Impaired Safety Awareness Impairment Minimal Impairments: Needs up to 25% input/direction from therapist in order to identify safety issues and maintain safety. Command Following Impaired Command following impairment Minimal Impairments: Needs up to 25% input/direction from therapist inorder to follow single step commands. Memory Impaired Memory impairment Decreased recall of precautions;Decreased recall of recent events Additional comments Pt alert and oriented, but easily distracted during session. Poor visual scanning. Pain Screening PT/OT Patient Currently in Pain Denies Observation Presentation Patient seated in chair Observation Chair alarm Coord/Sensation Assessed Grossly Intact/Normal ADL Interventions UE Dressing Assistance Set up ([facility] gown and donned pullover shirt.) LE Dressing Assistance Contact guard;With verbal cues;Pull up over hips;Thread LLE into underwear;Thread RLE into underwear;Thread LLE into pants;Thread RLE into pants;Don/doff L sock;Don/doff R sock (Pt educated on use of political advisor/sock aid for LB dressing. Pt doffed/donned socks with CGA and MAX verbal cues for technique. CGA and MOD verbal cues to don pants with political advisor. MAX cues to hold RW at all times with 1 hand at a minimum to decrease fall risk.) Additional Comments Pt continues to lean to right during session, but is able to readjust self. Transfers Sit to Stand Contact guard assist;With verbal cues Stand to Sit Contact guard assistance;With verbal cues Additional Comments Increased time and MAX verbal/visual cues for accuracy of pushin up from chair and sitting slowly while reaching back. Balance Sitting Balance 3+/5 sits without UE support for 30 seconds or greater Standing Balance 2/5 indep, requires both UE support Functional Balance Pt practiced pulling pants up over hips while standing with RW and CGA from OT. Pt resistive to holding RW with 1 hand and attempts to pull pants up/down with both. Lengthy education provided to decrease fall risk. Activity Tolerance Endurance Limits participation and activity Additional Comments Pt fatigued after dressing and exercises this date. PT/OT Mobility Documentation PT/OT Mobility Score 6 Interventions Equipment Training Use of RW and 1 hand to decrease fall risk. Transfer Training Pushing up from chair and reaching back before sitting. Exercise Exercise Yes Additional Comments Pt completed 10 reps of BUE red theraband ex with focus on sh hor ad/adduction,elbow flex/ext. and sh flex/ext. MAX verbal/visual cues. Education Education To use call light to request assistance with all mobility;Patient/Family Education;Cues for proper technique;Safe and proper technique with transfers;Precautions;Energy conservation;Patienteducated on donning and doffing of DME Patient Safety Patient left in chair with needs in reach;Nursing notified of status;Chair/personal alarm activated Assessment Progress Improving as expected Rationale for Skilled Therapy Fall Risk;Balance Deficits;Not safe with independent transfers;Needs verbal/tactile cues for ADL's;Needs physical cues for ADL's;Decreased endurance and tolerance to activity Additional Comments Pt participated well in OT services this date. Pt had increased willingness andindependence with dressing this date. Decreased assistance required for standing/sitting from surface. Plan Additional Comments Continue OT with focus on ADL retraining, BUE strengthening, stand tolerance, and activity tolerance. Recommendation OT Recommendation Moderate frequency, moderate intensity five days a week therapy recommended. Time In / Time Out 14:25-14:57 LTC Actual Occupational Therapy Minutes LTC Individual Therapy Minutes 32 * Mirian Diallo RN - 06/01/2025 3:40 PM EDT Patient resting in chair with family in room. requesting her hair to be washed. shampoo cap used onpatient. no complaints at this time. call light within reach. no needs or concerns at this time * Sang Schultz RD,LD - 06/01/2025 2:[address] [facility] Nutrition Initial Assessment Evidence Supported Malnutrition Diagnosis: No malnutrition identified Nutrition Problem/Diagnosis: Nutrition Diagnosis Problem 1: Increased nutrient needs (specify) (energy and amino acids) Calories (amino acids) related to increased demand for energy/nutrients, anticipated change in physical demands as evidenced by wounds, increased estimated needs. Status: New nutrition diagnosis Nutrition Prescription: Kcals: [id number] K Jacinto Needs Based On: Kcal/kg - specify (Comment) (30-35 kcal/kg, impaired skin integrity, rehab therapy) Protein (g): 81-97 Protein needs based on: 1.25-1.5 gm/kg Fluid (ml): 1 mL/kcal Plan/Interventions: Meals and Snacks: 75 gm Carbohydrate Controlled Medical Food Supplements: Glucerna Therapeutic, Prabhakar (Glucerna-strawberry; Prabhakar-orange) Medical Food/Supplement Freq: Glucerna TID; Prabhakar BID Vitamin and Mineral Supplements: Vitamin D Nutrition-Related Medication Management: Novolog, Lantus, Levaquin, Cozaar, Lopressor, Crestor, Protonix, Florastor Nutrition Education: Increased nutrients for wound healing, Oriented to Current Diet Order, Supplements Nutrition Discharge Instructions: Manage glucose. Consume a 75 gram consistent carbohydrate diet with a protein source at each meal and snack. Patricia Hills is a 84 y.o. female patient. Admit Diagnosis: Fracture [T14.8XXA] Fractured hip, left, closed, initial encounter ([facility]) [S72.002A] Reason For Assessment: Skin integrity protocol, SNF admission requirement Subjective: Subjective Comment: Spoke with pt's niece, discussed current diet ordered, nutrient needs for woundhealing and ONS. Pt/niece agrees to strawberry Glucerna TID and orange Prabhakar BID. Anthropometric Measurements: Height: 5' 2 (157.5 cm) Weight: 142 lb 3.2 oz (64.5 kg) BMI (Calculated): 26.01 BMI Assessment: 25-29.9 Overweight IBW +/- 10%: 110 lb (49.9 kg) % IBW: 129 Weight History Intervals: Other Interval (comment) Other Interval--Wt History (lb): 151 lb 12.8 oz (68.9 kg) (07/30/24, ~10 mos.) Other Interval--Wt Change (lb): 9.6 Other Interval--% Wt Change: 6.32 % Other Interval--Wt Gain or Loss: Loss Other Interval--Wt Loss Significance: Not significant Other (Comment): No significant wt loss within the past 10 mos. Food/Nutrition Related History: Dietary Orders Ordered 75 Gram Consistent Carbohydrate Diet DIET EFFECTIVE NOW 05/30/25 0609 GLUCERNA Therapeutic oral supplement 1 'box' Oral TID with Meals PRABHAKAR powder oral supplement 1 Packet Oral BID with Meals % Avg Meals Consumed: 55 % (5 meal average) Tube Feeding?: No TPN?: No Food Allergies: NKFA Level of Assistance: Set Up/Assist Chewing Difficulty: No (Pt has her own teeth.) Swallowing Difficulty: No Nutrition Focused Physical Findings: Physical Exam?: No Functional Status: Suboptimal (some decline) (Mobility level 6; high fall risk) LDAs- Active NG/OG/NJ,Wound,Pressure Injury,or Drain Wound Duration Incision/Wound Pressure Injury Stage II Buttocks Left Cluster 3 days Incision/Wound Skin tear Elbow Left;Posterior 3 days Incision/Wound Pressure Injury Stage II Buttocks Right 2 days Incision/Wound Closed Surgical Thigh Left;Dorsal [place], healing, no drainage noted <1 day I/O last 3 completed shifts: In: 580 [P.O.:580] Out: - Edema: Abdomen: Abdominal/GI When was last BM? (Date): 05/31/25 Stool Assessment: Stool Occurrence: 1 Stool Appearance: (!) Type 6 [place] Stool Chart Stool Color: Brown, Yellow Stool Amount: Large Biochemical Data/Medical Tests: Pertinent Meds: Novolog, Lantus, Levaquin, Cozaar, Lopressor, Crestor, Protoniz, Florastor Vitamins/Mineral Supplements: Vit D Pertinent Labs: 05/31: wbc 11.6 Pertinent Medical History: coronary artery disease, type 2 diabetes, hypertension, degenerative joint disease, COPD, hyperlipidemia, hip fx repair Clinical Course: Clinical Course: Patient is a 84-year-old white female who fell at home and broke her left hip. Patient has a history of multiple problems including coronary artery disease, type 2 diabetes, hypertension, degenerative joint disease and hyperlipidemia. Patient underwent surgery on May 26 for left hip fracture. Patient noted to have COPD and pneumonia while in hospital and started on Levaquin. 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 And also kidney mass on the left.Patient sent to [facility] for skilled rehab. * Silvia Diaz, PT - 06/01/2025 11:15 AM EDT 06/01/25 1030 SNF PT Subjective Note Type Treatment/Progress Patient Room/Unit 106 PT Subjective Comments #1 patient is agreeable to PT. She states she has been very thirsty lately. I can't seem to get enough water Others Present/Assisting SANTOS Vela -- switch in new chair. Discharge Information This progress note will serve as the discharge summary if no further therapy is provided prior to the patient being discharged from the hospital. Pain Screening PT/OT Patient Currently in Pain Yes Pain Rating 7 Pain Location Hip Pain Orientation Left Additional Comments states it does no t hurt while seated. 7/10 when walking Cognition Orientation Intact Arousal Normal Safety Awareness Impaired Safety Awareness Impairment Minimal Impairments: Needs up to 25% input/direction from therapist in order to identify safety issues and maintain safety. Command Following Impaired Command following impairment Minimal Impairments: Needs up to 25% input/direction from therapist inorder to follow single step commands. (cues needed for hand placement, pivoting on LLE, and walker distance.) Precautions Therapy Precautions Yes Weight Bearing Status Left lower extremity;Weight bearing as tolerated Precaution Info Given Yes;To use call light to request assistance with all mobility Activity Tolerance Endurance Limits participation and activity Observation Presentation Patient seated in chair Observation Chair alarm Transfers Sit to Stand Contact guard assist;With verbal cues;Walker Stand to Sit Minimal assistance;With verbal cues;Walker Additional Comments slow transfers Gait Gait Minimal assistance;With verbal cues Gait Distance (Feet) 60 Feet (30 x 2 with standing rest break) Assistive Device 2 Wheel walker Pattern Slow desiree;Decreased stance time L;Decreased step length L;Decreased step length R;Flexedposture Weight Bearing Status Weight bearing as tolerated Additional Comments cueing for walker managament. improved weightbearing noted today. Balance Sitting Balance 3+/5 sits without UE support for 30 seconds or greater Standing Balance 2/5 indep, requires both UE support Exercise Exercise Yes Supine Supine Ankle Pumps 10 Supine Quad Sets 10 PT/OT Mobility Documentation PT/OT Mobility Score 6 Education Education To use call light to request assistance with all mobility;Role of Therapy;Patient/Family Education;Safety with mobility;Cues for proper technique;Up with assistance only Patient Safety Patient Safety Patient left in chair with needs in reach;Chair/personal alarm activated;Nursing notified of status Assessment Assessment Decreased gait;Decreased functional mobility;Decreased balance;Decreased ADL status;Decreased Left Lower Extremity strength;Decreased Left Lower Extremity ROM;Decreased activity tolerance ;Decreased safety judgement Prognosis Good;With continued PT s/p acute discharge Progress Progressing toward goals Rationale for Skilled Therapy Fall Risk;Balance Deficits;Not safe with independent transfers;Not safe ambulating independently;Requires physical assistance with ADLs Additional Comments demonstrated improved tolerance to weightbearing and transfers today. Needing only 1 person CGA - Megan Plan Treatment/Interventions Continue with current plan of care PT Frequency 5x/week Recommendation PT Recommendation Moderate frequency, moderate intensity five days a week therapy recommended. Additional PT discharge information HHPT at discharge Time In / Time Out 1013/1027 [facility] Actual Physical Therapy Minutes LT PT Ind Therapy Min (!) 14 Silvia Diaz, PT, DPT * Katya Ott, PT - 06/01/2025 9:55 AM EDT 06/01/25 0929 SNF PT Subjective Note Type Treatment/Progress Patient Room/Unit 106 PT Subjective Comments #1 she was agreeable to PT Others Present/Assisting SANTOS Dodge for meds Discharge Information This progress note will serve as the discharge summary if no further therapy is provided prior to the patient being discharged from the hospital. Pain Screening PT/OT Patient Currently in Pain Yes Pain Rating 5 Pain Location Hip Pain Orientation Left Additional Comments RN there for meds at end of session Cognition Orientation Intact Precautions Therapy Precautions Yes Weight Bearing Status Left lower extremity;Weight bearing as tolerated Precaution Info Given Yes;To use call light to request assistance with all mobility Activity Tolerance Endurance Limits participation and activity Vitals stable per nsg who just took vital signs Observation Presentation Patient resting in bed Observation Bed alarm Coord/Sensation Assessed Grossly Intact/Normal Bed Mobility Supine to Sit Contact guard assist Transfers Sit to Stand Minimal assistance;With verbal cues Stand to Sit Minimal assistance;With verbal cues Gait Gait Minimal assistance;With verbal cues Gait Distance (Feet) 30 Feet Assistive Device 2 Wheel walker Pattern Slow desiree Weight Bearing Status Weight bearing as tolerated Additional Comments needs cues for proper use of walker Balance Sitting Balance 3+/5 sits without UE support for 30 seconds or greater Standing Balance 2/5 indep, requires both UE support Exercise Exercise Yes Additional Comments standing: B Pf x 5 Supine Supine Ankle Pumps 10 Supine Quad Sets 10 Supine Glut Sets 5 Seated Seated LAQ's 10 x 2 sets Seated DF/PF 10x PT/OT Mobility Documentation PT/OT Mobility Score 6 Education Education To use call light to request assistance with all mobility;Patient/Family Education;Role of Therapy;Safety with mobility;Cues for proper technique;Up with assistance only;Precautions;Safe and proper technique with transfers;Safe and proper technique with gait pattern Patient Safety Patient Safety Patient left in chair with needs in reach;Nursing notified of status;Chair/personal alarm activated Assessment Progress Progressing toward goals Rationale for Skilled Therapy Balance Deficits;Fall Risk Additional Comments increased distance with ambulation with one person today Plan Treatment/Interventions Continue with current plan of care PT Frequency 5x/week Recommendation PT Recommendation Moderate frequency, moderate intensity five days a week therapy recommended. Additional PT discharge information HHPT Time In / Time Out 845/904 L[facility] Actual Physical Therapy Minutes LTC PT Ind Therapy Min 19 Katya Ott, PT * Claudia Jacobo RN - 06/01/2025 6:25 AM EDT Pt is A+O/2, RA. Did require 1L nc while sleeping, dropping into 80's while sleeping. Forgetful, did have a couple hallucinations. Ambulated to bathroom ax1. No incont episodes through night. Did have complaints of pain, PRN tylenol given with relief. Call light, table, and belongings within reach.Care in progress. * Karen Carvalho RN - 05/31/2025 5:26 PM EDT Occupational therapy called out stating that the patient had blood in her mouth. Upon entering patient's room patient had blood in her mouth that appeared to be coming from her gums. Patient's lips was cleaned with a wet cloth. Patient was asked if she had experienced this before. She stated, yes I have and they put little black things in my nose to stop it. Patient's daughter was called and she stated that she does not recall patient ever having an issue with her gums bleeding. She stated that her mom has been talking about little black things in her nose for a couple of days. notified and new orders were received. * Celso Walker OT - 05/31/2025 5:23 PM EDT 05/31/25 1715 SNF OT Subjective Note Type Treatment/Progress OT Subjective Comments #1 I need something because I've got something in my mouth. Others Present/Assisting Karen-SANTOS, DHARA-Mirta [place], Odilon-nutrition Discharge Information This progress note will serve as the discharge summary if no further therapy is provided prior to the patient being discharged from the hospital. Precautions Therapy Precautions Yes Weight Bearing Status Left lower extremity;Weight bearing as tolerated Precaution Info Given Yes;To use call light to request assistance with all mobility;Weight bearing Cognition Orientation Intact Arousal Normal Safety Awareness Impaired Safety Awareness Impairment Minimal Impairments: Needs up to 25% input/direction from therapist in order to identify safety issues and maintain safety. Command Following Impaired Command following impairment Minimal Impairments: Needs up to 25% input/direction from therapist inorder to follow single step commands. Pain Screening PT/OT Patient Currently in Pain Denies Additional Comments Pt reported feeling woozy when sitting up on EOB. Pt dizziness resolved once sitting for a brief period of time. Observation Presentation Patient resting in bed Observation Bed alarm ADL Interventions Where Assessed Supine, bed Grooming Assistance Minimal;Oral care;Washing face (mouthwash/washcloth) Additional Comments Upon arrival, pt asleep and upon awakening, pt mouth/lips/teeth were bloody. Nsg notified and arrived and assisted with removing clots in mouth. Pt continued to complete oral hygiene after nsg left with mouthwash and washcloth. MIN cues to complete thoroughly as pt was attempting to clean with tissue vs washcloth. Bed Mobility Supine to Sit Minimal assistance;With cues Additional Comments Cues to use handrail. Transfers Sit to Stand Minimal assistance;With verbal cues;With 2 people (2nd person provided CGA only when standing from EOB.) Stand to Sit Minimal assistance;With 2 people;With verbal cues Bed to/from chair Minimal assistance;With 2 people Balance Sitting Balance 2+/5 supports self with 1 UE Standing Balance 2/5 indep, requires both UE support Activity Tolerance Endurance Limits participation and activity Interventions Transfer Training Safety reviewed with transfer technique and use of RW at all times. Exercise Exercise Yes Additional Comments Pt completed 10x BUE red theraband ex with focus on sh and elbow muscle groups. Upper Extremity Exercises Shoulder Flexion 2# BUE 10x Biceps 2# BUE 10x Triceps 2# BUE 10x Wrist Supination/Pronation 2# BUE 10x Education Education To use call light to request assistance with all mobility;Patient/Family Education;Safetywith mobility;Cues for proper technique;Up with assistance only;Precautions;Safe and proper technique with transfers Patient Safety Patient left in chair with needs in reach;Nursing notified of status;Chair/personal alarm activated Additional Comments RN and ATMOSPHERIC DRIER TENDER present at end of session assess glucose and labs. Assessment Rationale for Skilled Therapy Fall Risk;Balance Deficits;Not safe with independent transfers;Needs verbal/tactile cues for ADL's;Needs physical cues for ADL's;Not independent with home exercise program;Requires physical assistance with ADLs;Decreased endurance and tolerance to activity Additional Comments Pt tolerated BUE exercises well this date, but continues to require cues for accuracy. Pt continues to perseverate on tasks/conversation during session and frequent redirection required. Some confusion noted and frequent need for directions to be repeated. Increased time for processing. Pt improving AEB increased willingness to complete ADL transfer. Plan Additional Comments Continue OT with focus on ADL retraining, ADL transfers, and BUE strengthening. Recommendation OT Recommendation Moderate frequency, moderate intensity five days a week therapy recommended. Time In / Time Out 15:55-16:41 [facility] Actual Occupational Therapy Minutes LTC Individual Therapy Minutes 46 * Amie Weller, PT - 05/31/2025 12:07 PM EDT 05/31/25 1200 SNF PT Subjective Note Type Treatment/Progress Patient Room/Unit 106 Discharge Information This progress note will serve as the discharge summary if no further therapy is provided prior to the patient being discharged from the hospital. Pain Screening PT/OT Patient Currently in Pain Yes Pain Rating (3/10 left hip) Cognition Orientation Intact Precautions Therapy Precautions Yes Weight Bearing Status Left lower extremity;Weight bearing as tolerated Activity Tolerance Endurance Limits participation and activity Observation Presentation Patient seated in chair Observation Bed alarm Bed Mobility Supine to Sit Minimal assistance Transfers Sit to Stand With 2 people;Minimal assistance Stand to Sit Minimal assistance;With 2 people;With verbal cues Gait Gait Minimal assistance;With 2 people assist Gait Distance (Feet) 20 Feet Assistive Device 2 Wheel walker Pattern Slow desiree Weight Bearing Status Weight bearing as tolerated (left LE) Balance Sitting Balance 2/5 supports self independently with both UEs Standing Balance 2/5 indep, requires both UE support Exercise Exercise Yes Seated Seated LAQ's 10 Seated Hip Flex/Marching 10 Seated Hip ADD Isometrics 10 Education Education To use call light to request assistance with all mobility Patient Safety Patient Safety Patient left in chair with needs in reach;Chair/personal alarm activated Assessment Assessment Decreased gait;Decreased activity tolerance ;Decreased Left Lower Extremity strength;Decreased RightLower Extremity strength Rationale for Skilled Therapy Fall Risk;Balance Deficits;Not safe ambulating independently Plan Treatment/Interventions Continue with current plan of care PT Frequency 5x/week Recommendation PT Recommendation Moderate frequency, moderate intensity five days a week therapy recommended. Time In / Time Out 9:34 TO 9:52AM LTC Actual Physical Therapy Minutes LTC PT Ind Therapy Min 18 * Karine Panda, PT - 05/31/2025 11:33 AM EDT 05/31/25 1104 SNF PT Subjective Note Type Treatment/Progress Patient Room/Unit 106 PT Subjective Comments #1 agreeable to PT. States she doesn't feel well today. No particular reason, just overall doesn't feel well Others Present/Assisting Family/Friends enter during session Pain Screening PT/OT Patient Currently in Pain Denies Additional Comments reports no pain while in her chair Cognition Orientation Intact Arousal Normal Safety Awareness Impaired Safety Awareness Impairment Minimal Impairments: Needs up to 25% input/direction from therapist in order to identify safety issues and maintain safety. Affect/Ability to cope Normal Command Following Impaired Command following impairment Minimal Impairments: Needs up to 25% input/direction from therapist inorder to follow single step commands. (needs command repeated for where to put her hands during sit to stand) Memory Impaired Memory impairment Decreased recall of recent events Communication Intact Precautions Therapy Precautions Yes Weight Bearing Status Weight bearing as tolerated Precaution Info Given Yes;Weight bearing Activity Tolerance Endurance Limits participation and activity Observation Presentation Patient seated in chair Transfers Sit to Stand Moderate assistance Stand to Sit Moderate assistance Gait Gait Minimal assistance Gait Distance (Feet) 20 Feet Assistive Device 2 Wheel walker Pattern Slow desiree;Flexed posture Weight Bearing Status Weight bearing as tolerated Additional Comments Ambulated a little bit into hallway to turn around before returning to sit in the chair. Needs cueing to keep walker close to her. Exercise Exercise Yes Supine Supine Quad Sets 5 sec x 10 - in recliner Seated Seated LAQ's x 20 R, 2 x 6 Lt Seated Hip Flex/Marching x 10 R, x 6 L Education Education To use call light to request assistance with all mobility;Role of Therapy;Safety with mobility;Cues for proper technique;Safe and proper technique with transfers;Safe and proper technique with gait pattern Patient Safety Patient Safety Patient left in chair with needs in reach;Chair/personal alarm activated Assessment Assessment Decreased gait;Decreased functional mobility;Decreased balance;Decreased Left Lower Extremity strength;Decreased Left Lower Extremity ROM Rationale for Skilled Therapy Fall Risk;Balance Deficits;Not safe with independent transfers;Not safe ambulating independently Plan Treatment/Interventions Continue with current plan of care PT Frequency 5x/week Recommendation PT Recommendation Moderate frequency, moderate intensity five days a week therapy recommended. Additional PT discharge information HHPT Time In / Time Out 1044/1059 [facility] Actual Physical Therapy Minutes LTC PT Ind Therapy Min 15 * Stephany Lopez LPN - 05/31/2025 5:00 AM EDT Attempted to start MRI check list with patient last night while family was here and refused, so I tried this morning and she said she wasn't having it, how ever she is confused at this time. Maybe Tin can talk with her this morning when rounding. Will continue to observe. * Stephany Lopez LPN - 05/31/2025 3:51 AM EDT Patient awake, confused, to place and time,with gown off and she thinks she is staying in a zoroastrian somewhere, reoriented to both time and place, also pulled stat lock for starr off, encouraged patient keep hands away from cath as it could cause infection or trama, encouraged to use call light for needs and assistance. Will continue to monitor. * Stephany Lopez LPN - 05/30/2025 11:14 PM EDT Up to [facility] with walker, gait belt and assist of 2 very slow moving. Dressings to left hip surgery site elbow dry and intact, encouraged to use call light for needs and assistance, will continue monitor. * Katya Ott, PT - 05/30/2025 4:10 PM EDT 05/30/25 1603 [facility] PT Subjective Note Type Treatment/Progress Patient Room/Unit 106 PT Subjective Comments #1 patient agreeable to get to chair from bedside commode Others Present/Assisting DHARA Pascual Pain Screening PT/OT Patient Currently in Pain Yes Pain Rating 5 Pain Location Hip Pain Orientation Left Pain Intervention(s) Ambulation/Increased activity;Emotional support Cognition Orientation Intact Arousal Normal Safety Awareness Impaired Safety Awareness Impairment Minimal Impairments: Needs up to 25% input/direction from therapist in order to identify safety issues and maintain safety. Affect/Ability to cope Normal Command Following Impaired Command following impairment Moderate Impairments: Needs 25-75% input/direction from therapist in order to follow single step commands. Memory Impaired Memory impairment Decreased recall of recent events Communication Intact Precautions Therapy Precautions Yes Weight Bearing Status Weight bearing as tolerated;Left lower extremity Precaution Info Given Yes;Weight bearing Observation Presentation Patient seated in chair (seated on bedside commode) Observation Oxygen - nasal cannula Transfers Sit to Stand Moderate assistance;With 2 people;Walker;With verbal cues Stand to Sit Moderate assistance;With 2 people;Walker;With verbal cues Lateral Transfers Moderate assistance;With cues;With 2 people Additional Comments needed lots of encouragement to move her feet to transfer to chair Gait Gait Not performed Balance Standing Balance 1/5 performs 25-50% (moderate assistance) Exercise Exercise Yes Seated Seated LAQ's 5 Seated Hip ADD Isometrics 5 (with pillow) Education Education To use call light to request assistance with all mobility;Patient/Family Education;Role of Therapy;Safety with mobility;Cues for proper technique;Up with assistance only Patient Safety Patient Safety Patient left in chair with needs in reach;Chair/personal alarm activated (hip pillow between legs.) Assessment Assessment Decreased gait;Decreased functional mobility;Decreased balance;Decreased ADL status;Decreased activity tolerance ;Decreased safety judgement ;Decreased cognition;Decreased endurance Rationale for Skilled Therapy Fall Risk;Balance Deficits Plan Treatment/Interventions Continue with current plan of care PT Frequency 5x/week Recommendation PT Recommendation Moderate frequency, moderate intensity five days a week therapy recommended. Additional PT discharge information HHPT at discharge Time In / Time Out [phone] [facility] Actual Physical Therapy Minutes LTC PT Ind Therapy Min (!) 13 Katya Ott, PT * Joanna Galloway RN - 05/30/2025 2:41 PM EDT Patient up to bedside commode and recliner with assist of two staff. All needs within reach and family at bedside. * Celso Walker, OT - 05/30/2025 1:54 PM EDT 05/30/25 1320 [facility] OT Subjective Note Type Evaluation In Patient Room Patient Room/Unit 106 OT Subjective Comments #1 I just got in my chair and I don't feel like standing up right now. Others Present/Assisting Mary-photo machine operator Information Evaluation to serve as discharge summary if no further treatment provided before the facility discharge Admitting Diagnosis Fracture, Fractured hip, left, closed, initial encounter (HCC) Therapy Related Diagnosis M62.81 Muscle weakness Past Med Hx coronary artery disease, hypertension, Pneumonia, Vertigo, TIA, DMII, hyperlipidemia and DDD. 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 And also kidneymass on the left. Clinical Course Patient was admitted to [facility] and had LLE hemiarthroplasty 05/26/25. Trasnferred to [facility] skilled 05/29/25. Ortho FU 06/12/25 Precautions Therapy Precautions Yes Weight Bearing Status Weight bearing as tolerated;Left lower extremity Precaution Info Given Yes;Weight bearing;To use call light to request assistance with all mobility Additional Comments Dtr reports fall in Dec resulting in brain bleed. Home Living/Prior Function Type of Home House Home Layout Two level;Laundry in basement;Performs ADL's on one level;Stairs to enter w/ rails;Stairs inside home with handrail;Tub/Shower Number of Steps 7 Additional Comments Dtr present and reported that she lives in basement of mom's home. Laundry in basement. Home Equipment 2 wheeled walker;Raised toilet set with arms Level of Assistance Independent with ADLs ;Independent with functional transfers;Ambulatory in home;Needs assistance with homemaking Lives With Daughter Fall History 1-3 falls in the last three months ADL Assistance Independent Homemaking Assistance Meal Prep;Laundry;Shopping;Cleaning;Yard Work (Dtr provides assistance. Pt actually throws laundry downstrairs/over rail. Dtr and pt share meal responsibilities. Dtr reports that pt eats a lot of frozen dinners through day.) Driving No (no driving for last 2 years.) Vocational Retired Additional Comments Dtr primarily does laundry. Pt reports driving in March, but dtr clarified that pt hasn't driven for 2 years. Pt primarily does sponge bath at home as she does not have a walk inshower or tub bench. OT discussed recommendations for tub transfer bench, pt stated, I can't afford those. Cognition Orientation Intact Arousal Normal Safety Awareness Impaired Safety Awareness Impairment Minimal Impairments: Needs up to 25% input/direction from therapist in order to identify safety issues and maintain safety. Affect/Ability to cope Normal Command Following Impaired Command following impairment Moderate Impairments: Needs 25-75% input/direction from therapist in order to follow single step commands. Memory Impaired Memory impairment Decreased recall of recent events;Decreased recall of prior level of function Communication Intact Additional comments Pt easily distractible and has poor visual scanning. Pt could not find call light and requested OT find it for her. OT prompted pt what would she do if no one was present. Pt easily agitated and OT given cue to look in chair. Call light was beside pt R thigh. Also reported having glasses on when glasses were on table. Pain Screening PT/OT Patient Currently in Pain Denies Additional Comments Pt stated, I don't have any pain as long as I am still. But as soon as I move,it starts to hurt. Observation Presentation Patient seated in chair Observation Chair alarm;External urinary catheter;Oxygen - nasal cannula Vitals VSS UE Assessment LUE Assessment WFL LUE Additional Comments 3+/5 strength grossly RUE Assessment WFL RUE Additional Comments 4-/5 strength grossly Hand Function Hand Dominance Right Gross Grasp Functional Coordination Functional Coord/Sensation Assessed Grossly Intact/Normal Additional Comments Pt reported having some numbness in hands due to arthritis, but this is not new. Perception Perception Impaired Inattention/Neglect Appears intact Initiation Appears intact Motor Planning Appears intact Perseveration Perseverates during ADLs;Perseverates during conversation Coordination Intact Additional Comments Pt reported brushing teeth for around 5 min from chair. Pt perseverated on roast/meal that she frequently makes from home. Prior Functioning: Everyday Activities Self Care Needed some help Indoor Mobility (Ambulation) Needed some help Stairs Needed some help Prior Device Use Walker Functional Limitation in Range of Motion and Mobility Devices Upper Extremity No impairment Lower Extremity No impairment Mobility Devices Walker Self Care - Admission (Therapies) Eating 5-Setup Oral Hygiene 4-Supv Toileting Hygiene 10-Not attempted Shower/Bathe Self 10-Not attempted Lower Body Dressing 2-Substantial On/Off Footwear 2-Substantial ADL Interventions Where Assessed Chair;Other (comment) (feet elevated with abductor pillow.) Grooming Assistance Supervision;Oral care;Hair care;Washing hands;Washing face (from seated position.) Toileting Other (comment) (Pt declined need for toileting.) Additional Comments Pt educated on mobility needs that call for assistance is required. Pt able to demonstrate understanding of call light with MIN verbal cues. Thorough education on skilled program and expectation with pain in LLE. Transfers Additional Comments Pt declined standing due to just getting to chair and fear of L hip hurting. Pteducated on skilled program and OT 5/wk to address self- care. Pt encouraged to notify nursing of pain/need of meds. Functional Transfers Additional Comments Nsg educated that due to staff reporting MAX A of 2, to have BSC placed by chair versus attempting to walk to bathroom at this time for safety for pt and staff. Balance Sitting Balance 2/5 supports self independently with both UEs Standing Balance Not tested Activity Tolerance Endurance Limits participation and activity Additional Comments Pt reports feeling tired and appears to be overwhelmed easily as nose was bleeding prior to OT session. Nsg aware. Vision Vision Assessment Basic assessment OT Vision Comment Pt able to see clock and white board Vision - Basic Assessment Current Vision Wears glasses all the time PT/OT Mobility Documentation PT/OT Mobility Score 5 Interventions Equipment Training Call light use/review. Visual scanning. Additional Comments Reviewed use of PLB when fatigued as EC technique. Exercise Exercise Yes Additional Comments Pt completed 5 reps of BUE AROM ex with focus on scap elevation/depression, scap re/protraction, digit flex/ext and sh flex/ext. Exercises written on white board. Education Education To use call light to request assistance with all mobility;Patient/Family Education;Role of Therapy;Safety with mobility;Cues for proper technique;Discharge planning;Up with assistance only;Precautions;Safe and proper technique with transfers;Energy conservation;Educated on benefits of mobility, upright positioning, and getting out of bed Patient Safety Patient left in chair with needs in reach;Nursing notified of status;Chair/personal alarm activated Assessment Assessment Decreased ADL status;Decreased UE strength;Decreased Safe judgement during ADL;Decreasedcognition;Decreased endurance;Decreased sensation;Decreased self-care transfers;Decreased high-level ADLs Prognosis Good;With family;With continued OT s/p acute discharge Rationale for Skilled Therapy Fall Risk;Balance Deficits;Not safe with independent transfers;Caregiver training needs to be completed;Needs verbal/tactile cues for ADL's;Needs physical cues for ADL's;Not independent with home exercise program;Requires physical assistance with ADLs;Decreased enduranc e and tolerance to activity Goal Formulation With Patient/Family Additional Comments Pt is excellent candidate for skilled OT services as she has had fall at home with fx and surgical intervention. Pt strongly desires to return home with dtr living in basement of her home at [facility]. Pt has decreased BUE strength, decreased independence with ADLs, IADLs, and ADL transfers. Dtr reports since anesthesia that pt has had moments of changed personality/difficulties. Pt had limited visual scanning this date and struggled to find call light without cues despite being in chair by pt. Pt is easily distractible, perseverates on tasks/conversations, and can be easily ove rwhelmed. Dtr reports that mental status had improved after brain bleed, but OT will determine new status for pt once consistent sessions have occurred as pt present with some cognitive status concerns at this time. Pt would benefit from education on LE dressing/bathing with AE, ADL retraining, stand tolerance, BUE strengthening, and activity tolerance training in prep to return home to [facility]. Goals Patient and/or Family Goal to get out of here and get back to my home. Goals Yes Time for Goal Achievement/Duration of Treatment 2-4 weeks ADL Goals Pt Will Perform Upper Body Grooming Contact guard;With cueing Pt Will Perform Upper Body Bathing Contact guard;With cues Pt Will Perform Lower Body Bathing Minimal assistance;With cues Pt Will Perform UE Dressing With setup Pt Will Perform LE Dressing Contact guard assistance;With adaptive equipment;With cues Pt Will Perform Toileting Supervision;With cues Functional Transfer Goals Pt Will Transfer To Bedside Commode Contact guard;With cues Arm Goals Pt will complete HEP Supervision Plan Treatment Interventions ADL retraining;Instrumental ADL retraining;Functional transfer training;UE strengthening/ROM;Endurance training;Cognitive reorientation;Patient/Family training;Equipment eval/education;Neuro muscular reeducation;Compensatory technique education OT Frequency 5x/week Additional Comments Continue OT with focus on ADL retraining and safety awareness. Recommendation OT Recommendation Moderate frequency, moderate intensity five days a week therapy recommended. Time In / Time Out 11:28-12:12 OT Weekly Progress OT Weekly Progress Note Due Date 06/07/25 [facility] Actual Occupational Therapy Minutes LTC OT Evaluation Minutes 15 [facility] Individual Therapy Minutes 29 * Hugh Zamarripa MD - 05/30/2025 1:44 PM EDTAssociated Order(s): Inpatient consult to wound care for:Pressure injury; sacrum coccyx Images from the original note were not included. Inpatient consult to wound care for:Pressure injury; sacrum coccyx Consult performed by: Hugh Zamarripa MD Consult ordered by: Hugh Zamarripa MD Pt admitted for: Fractured hip, left, closed, initial encounter (HCC) PMHx includes: none on chart Today's hospital encounter was completed via telemedicine capabilities. Spoke with primary RN, Joanna via secure chat. Upon assessment, noted the following (please see LDA for complete assessment and documentation): 1. POA pressure injury to the right buttock - appears to be a fluid filled blister; appears to be complicated by moisture and friction 2. POA pressure injury stage 2 to the left buttock - appears to be a cluster of a deflated blister with an open area anteriorly; appears to be complicated by moisture and friction Treatments: 1. Buttocks: Recommend to apply 2 % antifungal powder to affected area, rubbing in lightly, then cover with Remedy Protect Zinc Oxide Paste (orange top) every 12 hours and PRN after each incontinent episode or cleansing. Nutrition consulted for wound healing support. Encourage continuation of preventative interventions such as frequent repositioning/ scheduled turns, as well as offloading bilateral heels. Patient is on a low air loss sleep surface to manage the microclimate of the skin (ensure function is on). Updated patient and nurse with plan of care. Orders have been placed on the chart. Wound Care will continue to follow. Please call with any questions or concerns. Thank You! I attest and agree with the assessment and documentation of pressure ulcers by the Wound Care Nurse. * Silvia Diaz, PT - 05/30/2025 1:23 PM EDT 05/30/25 0952 [facility] PT Subjective Note Type Evaluation Patient Room/Unit 106 PT Subjective Comments #1 Patient is agreeable to PT. She does have pain in the left hip. (Per report, patient reports NEYDA secondary to trying to catch a fork that was falling. She fell. She laid on the floor for 2-3 hours waiting on her dtr to return from grocery store.) Others Present/Assisting Nephew at start of session, DHARA Pascual; Katya PT for end of session. Discharge Information Evaluation to serve as discharge summary if no further treatment provided before the facility discharge Admitting Diagnosis Fracture, Fractured hip, left, closed, initial encounter (HCC) Therapy Related Diagnosis Z91.81 History of falling;M62.81 Muscle weakness;R26.2 Difficulty walking Past Med Hx coronary artery disease, hypertension, Pneumonia, Vertigo, TIA, DMII, hyperlipidemia and DDD. 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 And also kidneymass on the left. Clinical Course Patient was admitted to [facility] and had LLE hemiarthroplasty 05/26/25. Trasnferred to [facility] skilled 05/29/25. Ortho FU 06/12/25 Pain Screening PT/OT Patient Currently in Pain Yes Pain Rating 5 Pain Location Hip Pain Orientation Left Pain Intervention(s) Ambulation/Increased activity;Repositioned Additional Comments states it is a 5-6 while sitting still but can jump up to a 10 Cognition Orientation Intact Arousal Normal Safety Awareness Impaired Safety Awareness Impairment Minimal Impairments: Needs up to 25% input/direction from therapist in order to identify safety issues and maintain safety. Affect/Ability to cope Normal Command Following Impaired Command following impairment Minimal Impairments: Needs up to 25% input/direction from therapist inorder to follow single step commands. (repeated commands such as where to put hands for STS.) Communication Intact Precautions Therapy Precautions Yes Weight Bearing Status Weight bearing as tolerated Precaution Info Given Yes;Weight bearing;To use call light to request assistance with all mobility Home Living/Prior Function Type of Home House Home Layout Two level;Laundry in basement;Performs ADL's on one level;Stairs to enter w/ rails;Stairs inside home with handrail;Tub/Shower Number of Steps 5 (with 1 rail to enter home. States she typically uses the rail and her dtr shoulder to enter.) Home Equipment 2 wheeled walker (does not use cane.) Level of Assistance Independent with functional transfers;Ambulatory in home;Needs assistance with homemaking;Independent with ADLs Lives With Daughter Fall History 1-3 falls in the last three months (First fall in Jul 2024. Nephew reports steady decline since then) Additional Comments She is mostly able to take care of herself but dtr lives with her and helps when needed. Dtr lives in the basement and completes laundry for her so she does no do the stairs. She does have a taller toilet. She needs a BSC/Raised toilet and shower chair. She currently only spongebathes herself. She would love to get an actual shower. Nephew reports several falls since Jul. [place] problems and sciatic problems. Activity Tolerance Endurance Limits participation and activity Vitals VSS Observation Presentation Patient resting in bed Observation Bed alarm;Oxygen - nasal cannula;External urinary catheter (purewick removed prior to patient mobility to encourage movement/ambulation to<>from restroom by ATMOSPHERIC DRIER TENDER.) UE Assessment LUE Assessment WFL RUE Assessment WFL LE Assessment LLE Additional Comments very liimited ROM and strength. Able to lift slightly up off the floor. RLE Assessment WFL Coord/Sensation Assessed Grossly Intact/Normal Prior Functioning: Everyday Activities Self Care Needed some help Indoor Mobility (Ambulation) Needed some help (uses furnature) Stairs Needed some help Prior Device Use Walker Functional Limitation in Range of Motion and Mobility Devices Mobility Devices Walker Mobility Admission (Therapies) Roll Left and Right 2-Substantial Lying to sitting on edge of bed 2-Substantial Sit to stand 2-Substantial Chair/Qru-ad-uipks transfer 2-Substantial Toilet transfer 2-Substantial (BS) Walk 10 Feet 88-Not attempted Walk 50 feet with two turns 88-Not attempted Walk 150 feet 88-Not attempted Walking 10 Feet On Uneven Surfaces 88-Not attempted 1 Step (Curb) 88-Not attempted 4 Steps 88-Not attempted 12 Steps 88-Not attempted Picking Up Object 88-Not attempted Does the resident use a wheelchair/scooter? N1-o Patient Insurance Does Patient Have [place] Insurance? no Bed Mobility Supine to Sit Moderate assistance;With 2 people;With cues Additional Comments patient prefers to pull on arms and needs assist getting LLE to EOB. Does push backwards at trunk some requiring CGA at trunk. Transfers Sit to Stand Moderate assistance;With 2 people;Walker;With verbal cues Stand to Sit Moderate assistance;With 2 people;With verbal cues Stand Pivot Transfers Moderate assistance;With 2 people;With cues Additional Comments Completed Supine>Sit with assist at LLE and BUE with HOB eleavated. Completed STS with gait belt Modx2. Patient does not put much weight on the LLE. She is able to step with LLE however unable to make much movement with the RLE due to poor tolerance to weightbearing on the LLE. Encouraged patient to scoot her foot and she states she cant due to grippy socks. After several attempts demonstrated improvement. Sat at [facility]. Then Katya PT assisted with ATMOSPHERIC DRIER TENDER [facility]. Gait Gait Not performed Stair Management Assistance Not performed Balance Sitting Balance 2/5 supports self independently with both UEs Standing Balance 1+/5>50% (minimal assistance) Exercise Exercise No PT/OT Mobility Documentation PT/OT Mobility Score 5 Education Education To use call light to request assistance with all mobility;Patient/Family Education;Role of Therapy;Safety with mobility;Cues for proper technique;Up with assistance only;Educated on benefits of mobility, upright positioning, and getting out of bed Patient Safety Patient Safety (Patient left Katya PT and with Samara JULES) Assessment Assessment Decreased gait;Decreased balance;Decreased functional mobility;Decreased ADL status;Decreased Left Lower Extremity ROM;Decreased Left Lower Extremity strength;Decreased activity tolerance ;Decreased safety judgement Prognosis Good;With continued PT s/p acute discharge Rationale for Skilled Therapy Fall Risk;Balance Deficits;Not safe with independent transfers;Not safe ambulating independently;Requires physical assistance with ADLs;Able to make measurable improvements;Decreased endurance and tolerance to activity Goals PT GOALS (Yes/No) Yes Add Goals Will Perform Supine To Sit With stand by assist Will Perform Sit to Supine With contact guard assistance Will Perform Sit to Stand With contact guard assistance Will Transfer Bed/Chair With contact guard assistance Will Ambulate 51-100 feet;With 2 wheel walker;With contact guard assistance Will Tolerate Exercise 11-15 reps;Independently Time for Goal Achievement/Duration of Treatment 30 days Plan Treatment/Interventions Gait training;Bed mobility;Neuromuscular re- education;Balance training;ADL retraining;Functional transfer training;LE strengthening/ROM;Increase activity tolerance PT Frequency 5x/week Recommendation PT Recommendation Moderate frequency, moderate intensity five days a week therapy recommended. Additional PT discharge information HHPT at discharge Time In / Time Out PT 30 Day Recert PT 30 Day Recert Due 06/29/25 [facility]TC Actual Physical Therapy Minutes LTC PT Evaluation Minutes 23 Silvia Diaz, PT, DPT * Paradise Lu RN - 05/30/2025 4:10 AM EDT Partial new dressing to left hip surgical site by Felice Lopez RN assisted by this RN, due to dressingbeing soiled from loose bowel incontinence episode. #24 everton counted, noted no bright redness ofincision, very scant amount of dried crusting scattered along incision, no odor, no active drainage. Idoform strips left on incision, covered by 4x4, ABD pads and Medipore surgical tape. New mepilex foam dressing applied to sacral area due to soiling of previous dressing. * Paradise Lu RN - 05/29/2025 11:58 PM EDT Patient awake, has self repositioned. Requested fresh ice water. Declines needing any tylenol or melatonin, reported she had just woke up needing a drink. Call light in reach. * Paradise Lu RN - 05/29/2025 10:54 PM EDT Patient new to SNF arrived late on day shift. Patient A/O, confused at times, patient reports she thinks this is due to recent anesthesia she had for hip surgery. Dressings C/D/I to left elbow/arm skin tear and to left hip. Will review records regarding hip dressing, ? Change dressing or not? Patient has no edema of BLE, good pulses BLE. Patients medications updated in Epic based upon hospital discharge instructions received from [facility]. Per Dr. Zamarripa, hold tonight's dose of Metoprolol due to DBP's of 47 and 44. Heart rate 75 and regular. Attempted to complete admission navigator questions with patient and patient refused to answer any further questions reporting she was tired, wanted to go to sleep and will answer questions tomorrow and have daughter sign remaining consent forms as well. Tb skin test was NOT administered due to patient reporting she has had a positive test reaction in the past with swelling and redness both. Will inform Dr Zamarripa of this. Oriented patient again to call light and she was able to utilize call light appropriately. Patient reported she is too tired to get up to BR, requested purewick. Pure wick was placed at this time without issue. Call light in reach. Bed exit alarm on. documented in this encounter H&P Notes * Hugh Zamarripa MD - 05/30/2025 6:52 AM EDT CC L hip pain and recent surgery L hip Patient is a 84-year-old white female who fell at home and broke her left hip. Patient has a history of multiple problems including coronary artery disease, type 2 diabetes, hypertension, degenerative joint disease and hyperlipidemia. Patient underwent surgery on May 26 for left hip fracture.Patient noted to have COPD and pneumonia while in hospital and started on Levaquin. 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 And also kidney mass on the left. Patient sent to [facility] for skilled rehab. Review of Systems Constitutional: Positive for malaise/fatigue. HENT: Negative. Eyes: Negative. Respiratory: Negative. Cardiovascular: Negative. Gastrointestinal: Negative. Genitourinary: Negative. Musculoskeletal: Positive for falls and joint pain. Skin: Negative. Neurological: Positive for weakness. Negative for focal weakness. Endo/Heme/Allergies: Negative. Psychiatric/Behavioral: Negative. Negative for depression, hallucinations and memory loss. The patient is not nervous/anxious. Vitals: 05/29/25 2100 05/29/25 2112 05/29/25 2224 05/29/25 2232 BP: 129/44 129/44 BP Location: Right arm Patient Position: Pulse: 69 72 75 Resp: 18 18 Temp: TempSrc: SpO2: 94% 98% Weight: Height: Physical Exam Constitutional: General: She is not in acute distress. Appearance: She is not diaphoretic. HENT: Head: Normocephalic and atraumatic. Right Ear: External ear normal. Left Ear: External ear normal. Nose: Nose normal. Mouth/Throat: Pharynx: No oropharyngeal exudate. Eyes: General: No scleral icterus. Right eye: No discharge. Left eye: No discharge. Conjunctiva/sclera: Conjunctivae normal. Pupils: Pupils are equal, round, and reactive to light. Neck: Thyroid: No thyromegaly. Vascular: No JVD. Trachea: No tracheal deviation. Cardiovascular: Rate and Rhythm: Normal rate and regular rhythm. Heart sounds: Normal heart sounds. No murmur heard. No friction rub. No gallop. Pulmonary: Effort: Pulmonary effort is normal. No respiratory distress. Breath sounds: Normal breath sounds. No stridor. No wheezing or rales. Chest: Chest wall: No tenderness. Abdominal: General: Bowel sounds are normal. There is no distension. Palpations: Abdomen is soft. There is no mass. Tenderness: There is no abdominal tenderness. Musculoskeletal: Cervical back: Normal range of motion and neck supple. Left hip: Tenderness and bony tenderness present. Decreased range of motion. Lymphadenopathy: Cervical: No cervical adenopathy. Skin: General: Skin is warm and dry. Coloration: Skin is not pale. Findings: No erythema or rash. Neurological: Mental Status: She is alert and oriented to person, place, and time. Cranial Nerves: No cranial nerve deficit. Motor: No abnormal muscle tone. Coordination: Coordination normal. Deep Tendon Reflexes: Reflexes normal. Psychiatric: Mood and Affect: Mood and affect normal. Cognition and Memory: Memory normal. Judgment: Judgment normal. Past Medical History[1] Social History Socioeconomic History Marital status: Spouse name: Not on file Number of children: Not on file Years of education: Not on file Highest education level: Not on file Occupational History Not on file Tobacco Use Smoking status: Not on file Smokeless tobacco: Not on file Substance and Sexual Activity Alcohol use: Not on file Drug use: Not on file Sexual activity: Not on file Other Topics Concern Not on file Social History Narrative Not on file Social Drivers of Health Financial Resource Strain: Not on file Food Insecurity: Not on file Transportation Needs: Not on file Physical Activity: Not on file Stress: Not on file Social Connections: Not on file Intimate Partner Violence: Not on file Housing Stability: Not on file Family History[2] Surgical History[3] Allergies[4] Problem List[5] Medications ordered prior to the current encounter[6] No results found for: WBC , RBC , PLT , HGB , HCT , MCV , MCHC , RDW , MPV , NA , K , CL , CO2 , BUN , CREATININE , CALCIUM , GFRAFRAM , GFRNONAFRAM No results found for: HSCTNT No results found for: BNP No results found for: DDIMER No results found for: LABBLOO No results found. Assessment / Plan Active Hospital Problems Diagnosis *Fractured hip, left, closed, initial encounter ([facility]) Type 2 diabetes mellitus without complication, without long-term current use of insulin ([facility]) Essential hypertension 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 Fracture left hip-status post surgery, admitted to [facility] senior care or rehab/physical therapy. Type 2 stannran-Stne-Hwqo twice daily and continue metformin, glyburide was stopped Hypertension-blood pressure 129/44 currently on metoprolol and losartan Coronary artery disease with stents-on aspirin and Plavix, continue and continue cholesterol and blood pressure medicine VTE-Lovenox ordered Adrenal and kidney mass-Will get outside CAT scan report and review Addendum-in review of CAT scan of abdomen on 05/24/2025 at [facility] showed a 2 cm left adrenal mass similar to previous CT a lumbar spine in size, 10 mm left kidney hyperdensity which they recommended a CAT scan renal protocol and 4 mm solid left lower lung nodule which they recommended geta CAT scan in 12 months. [1] No past medical history on file. [2] No family history on file. [3] Past Surgical History: Procedure Laterality Date CATARACT EXTRACTION EXTRACAPSULAR W/ INTRAOCULAR LENS IMPLANTATION Left 11/20/2020 Dr. Carline Sargent CATARACT EXTRACTION EXTRACAPSULAR W/ INTRAOCULAR LENS IMPLANTATION Right 12/03/2020 Dr. Carline Sargent [4] Allergies Allergen Reactions Tuberculin Ppd Other (See Comments) 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 Altocor Diarrhea Avelox [Moxifloxacin] Diarrhea and Itching Biaxin [Clarithromycin] Itching, Nausea Only and Other (See Comments) Restless sleep Cold sweat Brompheniramine Hives Ceclor [Cefaclor] Hives Dexamethasone Hives Hydrochlorothiazide Other (See Comments) Shaking chills and pain in back Invokana [Canagliflozin] Nausea Only Keflex [Cephalexin] Nausea And Vomiting Kenalog [Triamcinolone Acetonide] Other (See Comments) Patient unsure Levaquin [Levofloxacin] Palpitations Marcaine [Bupivacaine] Other (See Comments) Patient unsure Nitrofurantoin Nausea And Vomiting Penicillin Swelling Ciprofloxacin Diarrhea [5] Patient Active Problem List Diagnosis Fractured hip, left, closed, initial encounter (HCC) Type 2 diabetes mellitus without complication, without long-term current use of insulin (HCC) Essential hypertension 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 [6] No current facility-administered medications on file prior to encounter. Current Outpatient Medications on File Prior to Encounter Medication Sig Dispense Refill albuterol sulfate (VENTOLIN INHL) Inhale 4 Puffs into the lungs daily. (Patient taking differently:Inhale 2 Puffs into the lungs every 6 hours as needed for Other (shortness of breath).) albuterol-ipratropium (DUO-NEB) 3 mg-0.5 mg(2.5 mg base)/3 mL Inhl Solution for Nebulization Take 3mL by nebulization every 6 hours. aspirin 81 mg Oral Tablet, Chewable Take 81 mg by mouth daily. cholecalciferol, vitamin D3, 25 mcg (1,000 unit) Oral Tablet Take 1,000 Units by mouth daily. citalopram (CELEXA) 10 mg Oral Tablet Take 5 mg by mouth 2 times daily. Indications: major depressive disorder clopidogreL (PLAVIX) 75 mg Oral Tablet Take 75 mg by mouth daily. HYDROcodone-acetaminophen (NORCO) 5-325 mg Oral Tablet Take 1 Tablet by mouth every 4 hours as needed for Acute Pain (R52). irbesartan (AVAPRO) 300 mg Oral Tablet Take 300 mg by mouth daily. levoFLOXacin (LEVAQUIN) 750 mg Oral Tablet Take 750 mg by mouth every other day. Take every 48 hours Indications: pneumonia caused by bacteria metFORMIN (GLUCOPHAGE XR) 500 mg Oral ER 24 hr tablet Take 1,000 mg by mouth 2 times daily (with meals). (Patient taking differently: Take 500 mg by mouth 2 times daily (with meals). Indications: type 2 diabetes mellitus) metoprolol (LOPRESSOR) 25 mg Oral Tablet Take 25 mg by mouth 2 times daily. Indications: high bloodpressure pantoprazole (PROTONIX) 40 mg Oral Tablet, Delayed Release (E.C.) Take 40 mg by mouth daily. Indications: heartburn rosuvastatin (CRESTOR) 5 mg Oral Tablet Take 5 mg by mouth nightly. documented in this encounter Miscellaneous Notes * SNF Progress Note - Jeannette Quach MSW - 06/12/2025 11:24 AM EDT 06/13/25. SW Late entry. Residents insurance issued [employer] 06/09 with last day of coverage 06/11/25.She discharged home with her daughter 06/12/25 with [facility]. * RT Oxygen Plan of Care Note - Clarisa Strong CRT - 06/10/2025 8:51 AM EDT Images from the original note were not included. June 10, 2025 Oxygen Therapy: Maintain Oxygen Sat greater than or equal to: >92 O2 Device: Room Air SpO2: 96 % Will continue to wean oxygen as tolerated to maintain titration goal. Clarisa Strong CRT * Plan of Care - Alisha Castillo CCC-UNDERWRITING ANALYST - 06/06/2025 4:27 PM EDT Clinical Swallow Evaluation (CSE) Speech Pathology Patient is a 84-year-old white female who fell at home and broke her left hip. Patient has a history of multiple problems including coronary artery disease, type 2 diabetes, hypertension, degenerative joint disease and hyperlipidemia. Patient underwent surgery on May 26 for left hip fracture.CAT scan of abdomen revealed mass of adrenal glands on the left. And also kidney mass on the left. Patient sent to [facility] for skilled rehab. UNDERWRITING ANALYST consulted for swallow evaluation as pt reported some difficulty swallowing. Impression: Patient presents with functional oropharyngeal swallow with no clinical s/s of penetration or aspiration with any consistency. Cranial nerve and laryngeal exam were unremarkable. Mastication of solids was complete without oral stasis. Patient was educated on results and recommendations as well as s/s to watch for if change in status were to occur. Pt demonstrated understanding. A regular diet with thin is recommended and no further acute UNDERWRITING ANALYST dysphagia intervention is warranted at this time. Discussed general aspiration precautions: Upright positioning 90 degrees, Small sips/bites, Slow rate. Pt reports that she coughs and sneezes when she eats maybe 1-2x a week. This has been happening for many years. No prior EGD or dysphagia work up. Discussed completing MBS as an outpatient at a later date if desired. Recommendations: Regular Solids, Thin Liquids Upright positioning 90 degrees Small sips/bites Slow rate Medication administration: With thin liquids Assistance/Supervision: Independent Pt/caregiver education No further UNDERWRITING ANALYST needs at this time 06/06/25 1239 Clinical Swallow Evaluation (CSE) Patient Seen Today? Yes Note Type Evaluation Time In 1052 Time Out 1126 Admitting Diagnosis Left hip fracture Speech Therapy Related Diagnosis R13.10 Dysphagia unspecified Date of onset 05/29/25 Pertinent and Past Medical History coronary artery disease, hypertension, Pneumonia, Vertigo, TIA, DMII, hyperlipidemia and DDD. 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 Recent Imaging Chest NA Recent Imaging Head NA Additional Relevant Imaging CT Abdomen 05/30/25: LOWER THORAX: Small right, trace left pleural effusions with mild bibasilar atelectasis Speech Therapy Personal Protective Equipment Gloves Assistive Devices None Behavior/Alertness Awake/Alert;Cooperative Prior level of function Independent with ADLs;Lives with family/caregiver Speech/Language Evidence of cognitive impairment (Some memory impairment) Patient Positioning Upright in chair Dentition Natural/Adequate Pertinent allergies None per chart review Current Diet Regular;Thin Liquids Diet prior to admit Regular;Thin Liquids Preferred Mode of Liquid Presentation Cup & Straw Previous MBS NA Previous FEES NA Baseline Vocal Quality Normal Volitional Cough Strong Secretion Managment WFL Oral And Cranial Nerve Assessment Oral Mucosa Moist, healthy CN V Trigeminal Intact facial sensation CN VII Facial Intact facial symmetry CN IX/X Glossopharyngeal/Vagus Intact velar elevation;Vocal quality WNL CN XII Hypoglossal Tongue protrudes midline Respiratory Respiratory status Yes Room air Appears WFL History of Intubation w/ this admit No Consistencies Assessed Consistencies Assessed Yes Additional Comments Pt reports that she coughs and sneezes when she eats maybe 1-2x a week. This has been happening for many years. No prior EGD or dysphagia work up. Discussed completing MBS as an outpatient at a later date if desired. Thin Presentation Self fed;Cup;Straw;Single swallow;Sequential swallows Oral WFL Pharyngeal WFL;No overt s/s of aspiration Pureed PU4 Presentation Self Fed Oral WFL Pharyngeal WFL;No overt s/s of aspiration Regular Solid Presentation Self Fed Oral WFL Pharyngeal WFL;No overt s/s of aspiration Results/Recommendations Clincial Swallow Impression No overt s/s of aspiration noted at bedside;Swallow appears WNL/WFL Diet Recommendations Regular Solids;Thin Liquids Strategies/Maneuvers Upright positioning 90 degrees;Small sips/bites;Slow rate (Discussed general aspiration precautions) Additional Recommendations Pt/caregiver education Assistance/Supervision Independent Medication administration With thin liquids Results discussed with Patient;Nursing;Family/Significant other Patient and/or Family Goal none voiced Patient/Family Education Completed Yes UNDERWRITING ANALYST Recommendation Home with prior support This note is to serve as discharge summary if no further Speech services are provided before being discharged from the hospital. * RT Oxygen Plan of Care Note - Clarisa Strong CRT - 06/04/2025 8:32 AM EDT Images from the original note were not included. June 04, 2025 Oxygen Therapy: Maintain Oxygen Sat greater than or equal to: >92 O2 Device: Room Air SpO2: 92 % Will continue to wean oxygen as tolerated to maintain titration goal. Clarisa Strong CRT * RT Oxygen Plan of Care Note - Clarisa Strong CRT - 06/03/2025 8:18 AM EDT Images from the original note were not included. June 03, 2025 Oxygen Therapy: Maintain Oxygen Sat greater than or equal to: >92 O2 Device: Room Air SpO2: 90 % Will continue to wean oxygen as tolerated to maintain titration goal. Clarisa Strong CRT * SNF Progress Note - Jeannette Quach MSW - 06/02/2025 3:56 PM EDT 06/02/25-SW: SW met with resident in room sitting upright in recliner with feet elevated on room air. She shared I walked down the montero and back with PT today. She expressed concern about managing the steps into her home and assured PT will include stairs into sessions when ready. Insurance NRD Tuesday 06/05 and Care Conference Wednesday 06/06 at 1:00 pm. SW following. * SNF Progress Note - Jeannette Quach MSW - 05/30/2025 11:03 AM EDT 05/30/25. SW Admission Note: Resident admitted 05/29 for therapy and medical management. She fell at home on 05/24 resulting in left femoral neck fracture and left hip fracture with hemiarthroplasty on 9/26. Met with resident and daughter Kylah in room. Resident sitting upright in recliner with feetelevated on 2L O2 NC. Daughter reported she previously had home O2 with [facility] [place], and when no longer needed, was returned to [facility]. She lives with daughter and plans to return at discharge. There are 7 steps into the home with handrails. She was independent in ADL's prior to fall and has a 2WW. Pharmacy is [facility]. They are agreeable to [facility] at discharge as they had them in the past. Care Conference scheduled on 06/06 at 1:00 pm. SW following. documented in this encounter Plan of Treatment Not on file documented as of this encounter Procedures Procedure Name Priority Date/Time Associated Diagnosis Comments GLUCOSE METER POC Routine 06/12/2025 8:13 AM EDT CBC Early AM 06/12/2025 5:33 AM EDT MAGNESIUM LEVEL Early AM 06/12/2025 5:33 AM EDT BASIC METABOLIC PANEL Early AM 06/12/2025 5:33 AM EDT GLUCOSE METER POC Routine 06/11/2025 8:58 PM EDT GLUCOSE METER POC Routine 06/11/2025 4:59 PM EDT GLUCOSE METER POC Routine 06/11/2025 12:16 PM EDT GLUCOSE METER POC Routine 06/11/2025 7:59 AM EDT EXTRA TUBES PANEL Routine 06/11/2025 6:17 AM EDT EXTRA LAVENDER Routine 06/11/2025 6:17 AM EDT REPEAT LACTIC ACID STAT 06/11/2025 6:17 AM EDT MAGNESIUM LEVEL Early AM 06/11/2025 6:17 AM EDT BASIC METABOLIC PANEL Early AM 06/11/2025 6:17 AM EDT REPEAT LACTIC ACID STAT 06/10/2025 11:20 PM EDT REPEAT LACTIC ACID STAT 06/10/2025 8:14 PM EDT BLOOD CULTURE (NO STAIN) Routine 06/10/2025 5:21 PM EDT BLOOD CULTURE (NO STAIN) Routine 06/10/2025 5:21 PM EDT GLUCOSE METER POC Routine 06/10/2025 4:58 PM EDT REPEAT LACTIC ACID STAT 06/10/2025 2:18 PM EDT GLUCOSE METER POC Routine 06/10/2025 11:59 AM EDT CBC Routine 06/10/2025 11:52 AM EDT PROCALCITONIN Routine 06/10/2025 11:52 AM EDT MAGNESIUM LEVEL Add-On 06/10/2025 11:52 AM EDT LACTIC ACID Routine 06/10/2025 11:52 AM EDT BASIC METABOLIC PANEL Routine 06/10/2025 11:52 AM EDT XR CHEST AP PORTABLE SHAYAN 06/10/2025 11:38 AM EDT GLUCOSE METER POC Routine 06/10/2025 8:36 AM EDT GLUCOSE METER POC Routine 06/09/2025 8:23 PM EDT GLUCOSE METER POC Routine 06/09/2025 4:53 PM EDT GLUCOSE METER POC Routine 06/09/2025 11:44 AM EDT GLUCOSE METER POC Routine 06/09/2025 7:43 AM EDT GLUCOSE METER POC Routine 06/08/2025 8:01 PM EDT GLUCOSE METER POC Routine 06/08/2025 4:33 PM EDT BASIC METABOLIC PANEL Routine 06/08/2025 4:27 PM EDT GLUCOSE METER POC Routine 06/08/2025 11:48 AM EDT GLUCOSE METER POC Routine 06/08/2025 8:30 AM EDT GLUCOSE METER POC Routine 06/07/2025 8:56 PM EDT URINALYSIS REFLEX Routine 06/07/2025 8:48 PM EDT UA W/REFLEX TO CULTURE Routine 06/07/2025 8:48 PM EDT EXTRA LAUGHLIN URINE CX Routine 06/07/2025 8:48 PM EDT URINE CULTURE (NO STAIN) Routine 06/07/2025 8:48 PM EDT GLUCOSE METER POC Routine 06/07/2025 4:47 PM EDT GLUCOSE METER POC Routine 06/07/2025 11:49 AM EDT GLUCOSE METER POC Routine 06/07/2025 7:50 AM EDT XR HIP LEFT AP LATERAL W AP PELVIS SHAYAN 06/07/2025 5:26 AM EDT CBC WITH DIFF Early AM 06/07/2025 5:09 AM EDT BASIC METABOLIC PANEL Early AM 06/07/2025 5:09 AM EDT GLUCOSE METER POC Routine 06/06/2025 9:21 PM EDT GLUCOSE METER POC Routine 06/06/2025 4:50 PM EDT GLUCOSE METER POC Routine 06/06/2025 12:37 PM EDT GLUCOSE METER POC Routine 06/06/2025 7:53 AM EDT CBC WITH DIFF Early AM 06/06/2025 5:26 AM EDT BASIC METABOLIC PANEL Early AM 06/06/2025 5:26 AM EDT GLUCOSE METER POC Routine 06/05/2025 8:23 PM EDT GLUCOSE METER POC Routine 06/05/2025 5:14 PM EDT GLUCOSE METER POC Routine 06/05/2025 12:00 PM EDT GLUCOSE METER POC Routine 06/05/2025 7:52 AM EDT GLUCOSE METER POC Routine 06/04/2025 9:05 PM EDT GLUCOSE METER POC Routine 06/04/2025 5:06 PM EDT GLUCOSE METER POC Routine 06/04/2025 12:01 PM EDT GLUCOSE METER POC Routine 06/04/2025 8:52 AM EDT GLUCOSE METER POC Routine 06/03/2025 8:26 PM EDT GLUCOSE METER POC Routine 06/03/2025 4:49 PM EDT GLUCOSE METER POC Routine 06/03/2025 11:16 AM EDT GLUCOSE METER POC Routine 06/03/2025 8:00 AM EDT GLUCOSE METER POC Routine 06/02/2025 9:00 PM EDT GLUCOSE METER POC Routine 06/02/2025 4:25 PM EDT GLUCOSE METER POC Routine 06/02/2025 12:17 PM EDT GLUCOSE METER POC Routine 06/02/2025 8:30 AM EDT GLUCOSE METER POC Routine 06/01/2025 8:00 PM EDT GLUCOSE METER POC Routine 06/01/2025 4:41 PM EDT GLUCOSE METER POC Routine 06/01/2025 12:17 PM EDT GLUCOSE METER POC Routine 06/01/2025 8:36 AM EDT GLUCOSE METER POC Routine 05/31/2025 8:03 PM EDT PARTIAL THROMBOPLASTIN TIME Routine 05/31/2025 4:43 PM EDT PT / INR Routine 05/31/2025 4:43 PM EDT CBC WITH DIFF Routine 05/31/2025 4:43 PM EDT GLUCOSE METER POC Routine 05/31/2025 4:37 PM EDT GLUCOSE METER POC Routine 05/31/2025 11:41 AM EDT GLUCOSE METER POC Routine 05/31/2025 8:12 AM EDT GLUCOSE METER POC Routine 05/30/2025 7:58 PM EDT GLUCOSE METER POC Routine 05/30/2025 5:[address] ABDOMEN PELVIS HEMATURIA/RENAL MASS PROTOCOL SHAYAN 05/30/2025 1:35 PM EDT CREATININE ISTAT Routine 05/30/2025 1:26 PM EDT GLUCOSE METER POC Routine 05/30/2025 9:02 AM EDT GLUCOSE METER POC Routine 05/29/2025 9:25 PM EDT IP CONSULT TO WOUND CARE Routine 05/29/2025 6:37 PM EDT Procedure Note - Hugh Zamarripa MD - 05/30/2025 1:44 PM EDTThis note is in progress. Images from the original note were not included. Inpatient consult to wound care for:Pressure injury; sacrum coccyx Consult performed by: Hugh Zamarripa MD Consult ordered by: Hugh Zamarripa MD Pt admitted for: Fractured hip, left, closed, initial encounter (HCC) PMHx includes: none on chart Today's hospital encounter was completed via telemedicine capabilities.Spoke with primary RN, Joanna via secure chat. Upon assessment, noted the following (please see LDA for completeassessment and documentation): 1. POA pressure injury to the right buttock - appears to be a fluidfilled blister; appears to be complicated by moisture and friction 2. POA pressure injury stage 2 to the left buttock - appears to be acluster of a deflated blister with an open area anteriorly; appears to becomplicated by moisture and friction Treatments: 1. Buttocks: Recommend to apply 2 % antifungal powder to affectedarea, rubbing in lightly, then cover with Remedy Protect Zinc Oxide Paste(orange top) every 12 hours and PRN after each incontinent episode orcleansing. Nutrition consulted for wound healing support. Encourage continuation of preventative interventions such as frequentrepositioning/ scheduled turns, as well as offloading bilateral heels.Patient is on a low air loss sleep surface to manage the microclimate ofthe skin (ensure function is on). Updated patient and nurse with plan of care. Orders have been placed onthe chart. Wound Care will continue to follow. Please call with anyquestions or concerns. Thank You! I attest and agree with the assessment and documentation of pressureulcers by the Wound Care Nurse. IP CONSULT TO NUTRITION Routine 05/29/2025 6:37 PM EDT IP CONSULT TO NUTRITION Routine 05/29/2025 6:37 PM EDT ADMIT Routine 05/29/2025 6:37 PM EDT documented in this encounter Results * (ABNORMAL) GLUCOSE METER POC (06/12/2025 8:13 AM EDT) Glucose Meter POC 125(H) 70 - 100 mg/dL 06/12/2025 8:14 AM EDT [facility] Sample Type Capillary 06/12/2025 8:14 AM EDT [facility] Patient Status Non-Critical Patient 06/12/2025 8:14 AM EDT [facility] Blood BLOOD SPECIMEN / Unknown 06/12/2025 8:13 AM EDT 06/12/2025 8:14 AM EDT us Hugh Zamarripa MD POINT OF CARE TEST ORDER PEDRO LUIS Final Result Performing Organization Address City/[facility]/ZIP Co de Phone Number [facility] [address] [place] [address] * MAGNESIUM LEVEL (06/12/2025 5:33 AM EDT) [facility] Magnesium 1.7 1.6 - 2.4 mg/dL 06/12/2025 5:55 AM EDT [facility] Blood VENOUS BLOOD / Unknown Venipuncture / Unknown 06/12/2025 5:33 AM EDT 06/12/2025 5:33 AM EDT Jennifer Fontana APRN CHEMISTRY ORDERABLES Fin al Result Performing Organization Address City/[facility]/ZIP Co de Phone Number [facility] [address] [place] [address] * (ABNORMAL) CBC (06/12/2025 5:33 AM EDT) Pathologist [facility] WBC 7.9 3.7 - 10.3 x10(3)/mcL 06/12/2025 5:36 AM EDT [facility] RBC 3.76(L) 3.90 - 5.20 x10(6)/mcL 06/12/2025 5:36 AM EDT [facility] Hgb 11.3 11.2 - 15.7 g/dL 06/12/2025 5:36 AM EDT [facility] Hct 35.6 34.0 - 45.0 % 06/12/2025 5:36 AM EDT [facility] MCV 94.7 80.0 - 100.0 fL 06/12/2025 5:36 AM EDT [facility] MCH 30.1 26.0 - 34.0 pg 06/12/2025 5:36 AM EDT [facility] MCHC 31.7 30.7 - 35.5 g/dL 06/12/2025 5:36 AM EDT [facility] RDW 13.0 <=14.9 % 06/12/2025 5:36 AM EDT [facility] Platelet 366 155 - 369 x10(3)/mcL 06/12/2025 5:36 AM EDT [facility] MPV 8.8 8.8 - 12.5 fL 06/12/2025 5:36 AM EDT [facility] Blood VENOUS BLOOD / Unknown Venipuncture / Unknown 06/12/2025 5:33 AM EDT 06/12/2025 5:33 AM EDT Jennifer Fontana APRN HEMATOLOGY ORDERABLES Fi nal Result [facility] [address] [place] [address] * (ABNORMAL) BASIC METABOLIC PANEL (06/12/2025 5:33 AM EDT) Pathologist [facility] Sodium 144 136 - 145 mmol/L 06/12/2025 5:55 AM EDT [facility] Potassium 4.0 3.5 - 5.0 mmol/L 06/12/2025 5:55 AM EDT [facility] Chloride 108(H) 98 - 107 mmol/L 06/12/2025 5:55 AM EDT [facility] Total CO2 27 22 - 29 mmol/L 06/12/2025 5:55 AM EDT [facility] Anion Gap 9 7 - 16 mmol/L 06/12/2025 5:55 AM EDT [facility] Calcium 8.5(L) 8.8 - 10.4 mg/dL 06/12/2025 5:55 AM EDT [facility] Glucose Lvl 137(H) 70 - 99 mg/dL 06/12/2025 5:55 AM EDT [facility] BUN 14 8 - 23 mg/dL 06/12/2025 5:55 AM EDT [facility] Creatinine 0.64 0.51 - 1.30 mg/dL 06/12/2025 5:55 AM EDT [facility] eGFR (CKD-EPIcr 2020) 86 >=60 mL/min/1.7 3 m2 06/12/2025 5:55 AM EDT [facility] Comment:Estimated GFR was ca lculated using the CKD-EPIcr (2020) equation refit without race. The equation is recommended by the [employer] - [place] [employer]ph[employer] Task Force. Blood VENOUS BLOOD / Unknown Venipuncture / Unknown 06/12/2025 5:33 AM EDT 06/12/2025 5:33 AM EDT us Jennifer Fontana APRN CHEMISTRY ORDERABLES Fin al Result [facility] [address] [place] [address] * (ABNORMAL) GLUCOSE METER POC (06/11/2025 8:58 PM EDT) Glucose Meter POC 111(H) 70 - 100 mg/dL 06/11/2025 9:00 PM EDT [facility] Sample Type Capillary 06/11/2025 9:00 PM EDT [facility] Patient Status Non-Critical Patient 06/11/2025 9:00 PM EDT [facility] Blood BLOOD SPECIMEN / Unknown 06/11/2025 8:58 PM EDT 06/11/2025 9:00 PM EDT Hugh Zamarripa MD POINT OF CARE TEST ORDER PEDRO LUIS Final Result Performing Organization Address City/[facility]/ZIP Co de Phone Number [facility] [address] [place] [address] * (ABNORMAL) GLUCOSE METER POC (06/11/2025 4:59 PM EDT) Glucose Meter POC 128(H) 70 - 100 mg/dL 06/11/2025 5:00 PM EDT [facility] Sample Type Capillary 06/11/2025 5:00 PM EDT [facility] Patient Status Non-Critical Patient 06/11/2025 5:00 PM EDT [facility] Blood BLOOD SPECIMEN / Unknown 06/11/2025 4:59 PM EDT 06/11/2025 5:00 PM EDT Hugh Zamarripa MD POINT OF CARE TEST ORDER PEDRO LUIS Final Result Performing Organization Address City/[facility] Co de Phone Number [facility] [address] [place] [address] * (ABNORMAL) GLUCOSE METER POC (06/11/2025 12:16 PM EDT) Glucose Meter POC 107(H) 70 - 100 mg/dL 06/11/2025 12:18 PM EDT [facility] Sample Type Capillary 06/11/2025 12:18 PM EDT [facility] Patient Status Non-Critical Patient 06/11/2025 12:18 PM EDT [facility] Blood BLOOD SPECIMEN / Unknown 06/11/2025 12:16 PM EDT 06/11/2025 12:18 PM EDT Hugh Zamarripa MD POINT OF CARE TEST ORDER PEDRO LUIS Final Result Performing Organization Address City/[facility]/ZIP Co de Phone Number [facility] [address] [place] [address] * (ABNORMAL) GLUCOSE METER POC (06/11/2025 7:59 AM EDT) Glucose Meter POC 127(H) 70 - 100 mg/dL 06/11/2025 8:01 AM EDT [facility] Sample Type Capillary 06/11/2025 8:01 AM EDT [facility] Patient Status Non-Critical Patient 06/11/2025 8:01 AM EDT [facility] Blood BLOOD SPECIMEN / Unknown 06/11/2025 7:59 AM EDT 06/11/2025 8:01 AM EDT Hugh Zamarripa MD POINT OF CARE TEST ORDER PEDRO LUIS Final Result Performing Organization Address [facility] Co de Phone Number [facility] [address] [place] [address] * EXTRA LAVENDER (06/11/2025 6:17 AM EDT) Blood VENOUS BLOOD / Unknown Venipuncture / Unknown 06/11/2025 6:17 AM EDT 06/11/2025 9:04 AM EDT Hugh Zamarripa MD HEMATOLOGY ORDERABLES Fi nal Result Performing Organization Address [facility] Co de Phone Number [facility] [address] [place] [address] * REPEAT LACTIC ACID (06/11/2025 6:17 AM EDT) Lactic Acid 1.9 0.5 - 1.9 mmol/L 06/11/2025 6:31 AM EDT [facility] Blood VENOUS BLOOD / Unknown Venipuncture / Unknown 06/11/2025 6:17 AM EDT 06/11/2025 6:17 AM EDT Hugh Zamarripa MD CHEMISTRY ORDERABLES Fin al Result Performing Organization Address City/[facility]/ZIP Co de Phone Number [facility] [address] [place] [address] * MAGNESIUM LEVEL (06/11/2025 6:17 AM EDT) Magnesium 1.6 1.6 - 2.4 mg/dL 06/11/2025 6:56 AM EDT [facility] Blood VENOUS BLOOD / Unknown Venipuncture / Unknown 06/11/2025 6:17 AM EDT 06/11/2025 6:43 AM EDT us Jennifer Fontana APRN CHEMISTRY ORDERABLES Fin al Result [facility] [address] [place] [address] * (ABNORMAL) BASIC METABOLIC PANEL (06/11/2025 6:17 AM EDT) Sodium 145 136 - 145 mmol/L 06/11/2025 6:56 AM EDT [facility] Potassium 3.8 3.5 - 5.0 mmol/L 06/11/2025 6:56 AM T [facility] Chloride 110(H) 98 - 107 mmol/L 06/11/2025 6:56 AM T [facility] Total CO2 24 22 - 29 mmol/L 06/11/2025 6:56 AM T [facility] Anion Gap 11 7 - 16 mmol/L 06/11/2025 6:56 AM T [facility] Calcium 8.2(L) 8.8 - 10.4 mg/dL 06/11/2025 6:56 AM T [facility] Glucose Lvl 128(H) 70 - 99 mg/dL 06/11/2025 6:56 AM T [facility] BUN 14 8 - 23 mg/dL 06/11/2025 6:56 AM T [facility] Creatinine 0.61 0.51 - 1.30 mg/dL 06/11/2025 6:56 AM [facility] eGFR (CKD-EPIcr 2020) 87 >=60 mL/min/1.7 3 m2 06/11/2025 6:56 AM T [facility] Comment:Estimated GFR was ca lculated using the CKD-EPIcr (2020) equation refit without race. The equation is recommended by the [employer] - [place] [employer] Neph[employer] Task Force. Blood VENOUS BLOOD / Unknown Venipuncture / Unknown 06/11/2025 6:17 AM EDT 06/11/2025 6:43 AM EDT Jennifer Fontana APRN CHEMISTRY ORDERABLES Fin al Result Performing Organization Address City/[facility] Co de Phone Number [facility] [address] [place] [address] * (ABNORMAL) REPEAT LACTIC ACID (06/10/2025 11:20 PM EDT) Lactic Acid 2.3(H) 0.5 - 1.9 mmol/L 06/10/2025 11:36 PM EDT [facility] Blood VENOUS BLOOD / Unknown Venipuncture / Unknown 06/10/2025 11:20 PM EDT 06/10/2025 11:20 PM EDT Hugh Zamarripa MD CHEMISTRY ORDERABLES Fin al Result Performing Organization Address [facility] de Phone Number [facility] [address] [place] [address] * (ABNORMAL) REPEAT LACTIC ACID (06/10/2025 8:14 PM EDT) Lactic Acid 3.3(H) 0.5 - 1.9 mmol/L 06/10/2025 8:29 PM EDT [facility] Blood VENOUS BLOOD / Unknown Venipuncture / Unknown 06/10/2025 8:14 PM EDT 06/10/2025 8:14 PM EDT Jennifer Fontana APRN CHEMISTRY ORDERABLES Fin al Result Performing Organization Address [facility] Co de Phone Number [facility] [address] [place] [address] * BLOOD CULTURE (NO STAIN) (06/10/2025 5:21 PM EDT) Culture Result No Growth at 120 hours. BLOOD CULTURE (NO STAIN) 06/16/2025 11:00 AM EDT [facility] [employer] Blood VENOUS BLOOD / Unknown Venipuncture / Unknown 06/10/2025 5:21 PM EDT 06/10/2025 5:23 PM EDT Jennifer Fontana APRN MICROBIOLOGY - GENERAL O RDERABLES Final Result [facility] [employer] [address] [place] [address] , [place] [address] * BLOOD CULTURE (NO STAIN) (06/10/2025 5:21 PM EDT) Culture Result No Growth at 120 hours. BLOOD CULTURE (NO STAIN) 06/16/2025 11:00 AM EDT [facility] [employer] Blood VENOUS BLOOD / Unknown Venipuncture / Unknown 06/10/2025 5:21 PM EDT 06/10/2025 5:24 PM EDT Jennifer Fontana APRN MICROBIOLOGY - GENERAL O RDERABLES Final Result Performing Organization Address City/[facility]/ZIP Co de Phone Number [facility] [employer] [address] , [place] [address] * (ABNORMAL) GLUCOSE METER POC (06/10/2025 4:58 PM EDT) Glucose Meter POC 139(H) 70 - 100 mg/dL 06/10/2025 5:00 PM EDT [facility] Sample Type Capillary 06/10/2025 5:00 PM EDT [facility] Patient Status Non-Critical Patient 06/10/2025 5:00 PM EDT [facility] Blood BLOOD SPECIMEN / Unknown 06/10/2025 4:58 PM EDT 06/10/2025 5:00 PM EDT Hugh Zamarripa MD POINT OF CARE TEST ORDER PEDRO LUIS Final Result Performing Organization Address City/[facility] Co de Phone Number [facility] [address] [place] [address] * (ABNORMAL) REPEAT LACTIC ACID (06/10/2025 2:18 PM EDT) Lactic Acid 3.2(H) 0.5 - 1.9 mmol/L 06/10/2025 2:34 PM EDT [facility] Blood VENOUS BLOOD / Unknown Venipuncture / Unknown 06/10/2025 2:18 PM EDT 06/10/2025 2:23 PM EDT Jennifer Fontana APRN CHEMISTRY ORDERABLES Fin al Result Performing Organization Address [facility] de Phone Number [facility] [address] [place] [address] * (ABNORMAL) GLUCOSE METER POC (06/10/2025 11:59 AM EDT) Glucose Meter POC 105(H) 70 - 100 mg/dL 06/10/2025 12:00 PM EDT [facility] Sample Type Capillary 06/10/2025 12:00 PM EDT [facility] Patient Status Non-Critical Patient 06/10/2025 12:00 PM EDT [facility] Blood BLOOD SPECIMEN / Unknown 06/10/2025 11:59 AM EDT 06/10/2025 12:00 PM EDT Hugh Zamarripa MD POINT OF CARE TEST ORDER PEDRO LUIS Final Result Performing Organization Address [facility] Co de Phone Number [facility] [address] [place], [place] [id number] * (ABNORMAL) MAGNESIUM LEVEL (06/10/2025 11:52 AM EDT) Magnesium 1.3(L) 1.6 - 2.4 mg/dL 06/10/2025 1:12 PM EDT [facility] Blood VENOUS BLOOD / Unknown Venipuncture / Unknown 06/10/2025 11:52 AM EDT 06/10/2025 12:00 PM EDT Jennifer Fontana APRN CHEMISTRY ORDERABLES Fin al Result Performing Organization Address [facility] Co de Phone Number [facility] [address] [place] [address] * PROCALCITONIN (06/10/2025 11:52 AM EDT) Procalcitonin 0.08 <=0.49 ng/mL 06/10/2025 7:35 PM EDT [employer] Blood VENOUS BLOOD / Unknown Venipuncture / Unknown 06/10/2025 11:52 AM EDT 06/10/2025 12:00 PM EDT Narrative [facility] - 06/10/2025 7:35 PM EDT Procalcitonin <0.50 ng/mL: Procalcitonin levels below 0.50 ng/mL on the first day of ICU admission represent a low risk for progression to severe sepsis and/or septic shock Procalcitonin >=0.50 ng/mL and <=2.00 ng/mL: If the procalcitonin measurement is performed shortly after the systemic infection process has started (usually less than 6 hours), this value may still be low. As various non-infectious conditions are known to induce procalcitonin as well, procalcitonin levels between 0.50 ng/mL and 2.00 ng/mL should be reviewed carefully to take into account the specific clinical background and condition(s) of the patient. Procalcitonin >2.00 ng/mL: Procalcitonin levels above 2.00 ng/mL on the first day of ICU admission represent a high risk for progression to severe sepsis and/or septic shock. us Jennifer Fontana APRN CHEMISTRY ORDERABLES Fin al Result Performing Organization Address [facility] Co de Phone Number [employer] [address] [place] [address] , [place] [address] * (ABNORMAL) LACTIC ACID (06/10/2025 11:52 AM EDT) Pathologist [facility] Lactic Acid 2.1(H) 0.5 - 1.9 mmol/L 06/10/2025 12:13 PM EDT [facility] Blood VENOUS BLOOD / Unknown Venipuncture / Unknown 06/10/2025 11:52 AM EDT 06/10/2025 12:00 PM EDT us Jennifer Fontana CONTRACT ADMINISTRATION COORDINATOR CHEMISTRY ORDERABLES Fin al Result [facility] [address] [place] [address] * (ABNORMAL) CBC (06/10/2025 11:52 AM EDT) WBC 10.5(H) 3.7 - 10.3 x10(3)/mcL 06/10/2025 12:03 PM EDT [facility] RBC 3.93 3.90 - 5.20 x10(6)/mcL 06/10/2025 12:03 PM EDT [facility] Hgb 11.9 11.2 - 15.7 g/dL 06/10/2025 12:03 PM EDT [facility] Hct 36.2 34.0 - 45.0 % 06/10/2025 12:03 PM EDT [facility] MCV 92.1 80.0 - 100.0 fL 06/10/2025 12:03 PM EDT [facility] MCH 30.3 26.0 - 34.0 pg 06/10/2025 12:03 PM EDT [facility] MCHC 32.9 30.7 - 35.5 g/dL 06/10/2025 12:03 PM EDT [facility] RDW 12.7 <=14.9 % 06/10/2025 12:03 PM EDT [facility] Platelet 400(H) 155 - 369 x10(3)/mcL 06/10/2025 12:03 PM EDT [facility] MPV 8.9 8.8 - 12.5 fL 06/10/2025 12:03 PM EDT [facility] Blood VENOUS BLOOD / Unknown Venipuncture / Unknown 06/10/2025 11:52 AM EDT 06/10/2025 12:00 PM EDT us Jennifer oFntana CONTRACT ADMINISTRATION COORDINATOR HEMATOLOGY ORDERABLES Fi nal Result [facility] [address] [place] [address] * (ABNORMAL) BASIC METABOLIC PANEL (06/10/2025 11:52 AM EDT) Sodium 143 136 - 145 mmol/L 06/10/2025 12:16 PM EDT [facility] Potassium 3.2(L) 3.5 - 5.0 mmol/L 06/10/2025 12:16 PM EDT [facility] Chloride 105 98 - 107 mmol/L 06/10/2025 12:16 PM EDT [facility] Total CO2 25 22 - 29 mmol/L 06/10/2025 12:16 PM EDT [facility] Anion Gap 13 7 - 16 mmol/L 06/10/2025 12:16 PM T [facility] Calcium 8.5(L) 8.8 - 10.4 mg/dL 06/10/2025 12:16 PM T [facility] Glucose Lvl 106(H) 70 - 99 mg/dL 06/10/2025 12:16 PM T [facility] BUN 16 8 - 23 mg/dL 06/10/2025 12:16 PM EDT [facility] Creatinine 0.67 0.51 - 1.30 mg/dL 06/10/2025 12:16 PM T [facility] eGFR (CKD-EPIcr 2020) 85 >=60 mL/min/1.7 3 m2 06/10/2025 12:16 PM T [facility] Comment:Estimated GFR was ca lculated using the CKD-EPIcr (2020) equation refit without race. The equation is recommended by the [employer] - [place] [employer] Neph[employer] Task Force. Blood VENOUS BLOOD / Unknown Venipuncture / Unknown 06/10/2025 11:52 AM EDT 06/10/2025 12:00 PM EDT us Jennifer Fontana APRN CHEMISTRY ORDERABLES Fin al Result [facility] [address] [place] [address] * XR CHEST AP PORTABLE (06/10/2025 11:38 AM EDT) Anatomical Region Laterality Modality Chest Radiographic Liset ging 06/10/2025 11:3 8 AM EDT Impressions 06/10/2025 11:50 AM EDT No acute finding. - Note: Radiology results need to be interpreted within a comprehensive clinical context. If you have questions about the radiology report, please contact the office of the ordering clinician. Narrative 06/10/2025 11:50 AM EDT XR CHEST AP PORTABLE, 06/10/2025 11:38 AM CLINICAL HISTORY: -Increasing SOB COMPARISON: None. PROCEDURE COMMENTS: AP portable technique. FINDINGS: Support devices: No visible support devices. Heart and mediastinal contours within normal limits for technique. Pulmonary vasculature is within normal limits. No pleural effusion or pneumothorax. Procedure Note Sheldon Polk MD - 06/10/2025 XR CHEST AP PORTABLE, 06/10/2025 11:38 AM CLINICAL HISTORY: -Increasing SOB COMPARISON: None. PROCEDURE COMMENTS: AP portable technique. FINDINGS: Support devices: No visible support devices. Heart and mediastinal contours within normal limits for technique.Pulmonary vasculature is within normal limits. No pleural effusion orpneumothorax. IMPRESSION: No acute finding. - Note: Radiology results need to be interpreted within a comprehensiveclinical context. If you have questions about the radiology report, please contactthe office of the ordering clinician. us Jennifer Fontana APRN IMG DIAGNOSTIC IMAGING O RDERABLES Final Result * (ABNORMAL) GLUCOSE METER POC (06/10/2025 8:36 AM EDT) [facility] Glucose Meter POC 126(H) 70 - 100 mg/dL 06/10/2025 8:38 AM EDT [facility] Sample Type Capillary 06/10/2025 8:38 AM EDT [facility] Patient Status Non-Critical Patient 06/10/2025 8:38 AM EDT [facility] Blood BLOOD SPECIMEN / Unknown 06/10/2025 8:36 AM EDT 06/10/2025 8:38 AM EDT Hugh Zamarripa MD POINT OF CARE TEST ORDER PEDRO LUIS Final Result Performing Organization Address City/[facility] Co de Phone Number [facility] [address] [place] [address] * (ABNORMAL) GLUCOSE METER POC (06/09/2025 8:23 PM EDT) Glucose Meter POC 155(H) 70 - 100 mg/dL 06/09/2025 8:24 PM EDT [facility] Sample Type Capillary 06/09/2025 8:24 PM EDT [facility] Patient Status Non-Critical Patient 06/09/2025 8:24 PM EDT [facility] Blood BLOOD SPECIMEN / Unknown 06/09/2025 8:23 PM EDT 06/09/2025 8:24 PM EDT Hugh Zamarripa MD POINT OF CARE TEST ORDER PEDRO LUIS Final Result Performing Organization Address City/[facility]/ZIP Co de Phone Number [facility] [address] [place] [address] * (ABNORMAL) GLUCOSE METER POC (06/09/2025 4:53 PM EDT) Glucose Meter POC 117(H) 70 - 100 mg/dL 06/09/2025 4:54 PM EDT [facility] Sample Type Capillary 06/09/2025 4:54 PM EDT [facility] Patient Status Non-Critical Patient 06/09/2025 4:54 PM EDT [facility] Blood BLOOD SPECIMEN / Unknown 06/09/2025 4:53 PM EDT 06/09/2025 4:54 PM EDT Hugh Zamarripa MD POINT OF CARE TEST ORDER PEDRO LUIS Final Result Performing Organization Address City/[facility] Co de Phone Number [facility] [address] [place] [address] * (ABNORMAL) GLUCOSE METER POC (06/09/2025 11:44 AM EDT) Glucose Meter POC 149(H) 70 - 100 mg/dL 06/09/2025 11:45 AM EDT [facility] Sample Type Capillary 06/09/2025 11:45 AM EDT [facility] Patient Status Non-Critical Patient 06/09/2025 11:45 AM EDT [facility] Blood BLOOD SPECIMEN / Unknown 06/09/2025 11:44 AM EDT 06/09/2025 11:45 AM EDT Hugh Zamarripa MD POINT OF CARE TEST ORDER PEDRO LUIS Final Result Performing Organization Address [facility] de Phone Number [facility] [address] [place] [address] * (ABNORMAL) GLUCOSE METER POC (06/09/2025 7:43 AM EDT) Glucose Meter POC 113(H) 70 - 100 mg/dL 06/09/2025 7:44 AM EDT [facility] Sample Type Capillary 06/09/2025 7:44 AM EDT [facility] Patient Status Non-Critical Patient 06/09/2025 7:44 AM EDT [facility] Blood BLOOD SPECIMEN / Unknown 06/09/2025 7:43 AM EDT 06/09/2025 7:44 AM EDT Hugh Zamarripa MD POINT OF CARE TEST ORDER PEDRO LUIS Final Result Performing Organization Address City/[facility] Co de Phone Number [facility] [address] [place] [address] * (ABNORMAL) GLUCOSE METER POC (06/08/2025 8:01 PM EDT) Glucose Meter POC 151(H) 70 - 100 mg/dL 06/08/2025 8:03 PM EDT [facility] Sample Type Capillary 06/08/2025 8:03 PM EDT [facility] Patient Status Non-Critical Patient 06/08/2025 8:03 PM EDT [facility] Blood BLOOD SPECIMEN / Unknown 06/08/2025 8:01 PM EDT 06/08/2025 8:03 PM EDT Hugh Zamarripa MD POINT OF CARE TEST ORDER PEDRO LUIS Final Result Performing Organization Address City/[facility]/ZIP Co de Phone Number [facility] [address] [place], [place] [id number] * (ABNORMAL) GLUCOSE METER POC (06/08/2025 4:33 PM EDT) Glucose Meter POC 145(H) 70 - 100 mg/dL 06/08/2025 4:35 PM EDT [facility] Sample Type Capillary 06/08/2025 4:35 PM EDT [facility] Patient Status Non-Critical Patient 06/08/2025 4:35 PM EDT [facility] Blood BLOOD SPECIMEN / Unknown 06/08/2025 4:33 PM EDT 06/08/2025 4:35 PM EDT Hugh Zamarripa MD POINT OF CARE TEST ORDER PEDRO LUIS Final Result Performing Organization Address City/[facility]/ZIP Co de Phone Number [facility] [address] [place], [place] [id number] * (ABNORMAL) BASIC METABOLIC PANEL (06/08/2025 4:27 PM EDT) Sodium 143 136 - 145 mmol/L 06/08/2025 4:45 PM EDT [facility] Potassium 4.0 3.5 - 5.0 mmol/L 06/08/2025 4:45 PM EDT [facility] Chloride 103 98 - 107 mmol/L 06/08/2025 4:45 PM EDT [facility] Total CO2 28 22 - 29 mmol/L 06/08/2025 4:45 PM EDT [facility] Anion Gap 12 7 - 16 mmol/L 06/08/2025 4:45 PM EDT [facility] Calcium 8.9 8.8 - 10.4 mg/dL 06/08/2025 4:45 PM EDT [facility] Glucose Lvl 143(H) 70 - 99 mg/dL 06/08/2025 4:45 PM EDT [facility] BUN 14 8 - 23 mg/dL 06/08/2025 4:45 PM EDT [facility] Creatinine 0.75 0.51 - 1.30 mg/dL 06/08/2025 4:45 PM EDT [facility] eGFR (CKD-EPIcr 2020) 78 >=60 mL/min/1.7 3 m2 06/08/2025 4:45 PM EDT [facility] Comment:Estimated GFR was ca lculated using the CKD-EPIcr (2020) equation refit without race. The equation is recommended by the [employer] - [place] [employer]ph[employer] Task Force. Blood VENOUS BLOOD / Unknown Venipuncture / Unknown 06/08/2025 4:27 PM EDT 06/08/2025 4:30 PM EDT us Viral Sargent V, DO CHEMISTRY ORDERABLES Final Res ult [facility] [address] [place] [address] * (ABNORMAL) GLUCOSE METER POC (06/08/2025 11:48 AM EDT) Glucose Meter POC 140(H) 70 - 100 mg/dL 06/08/2025 11:50 AM EDT [facility] Sample Type Capillary 06/08/2025 11:50 AM EDT [facility] Patient Status Non-Critical Patient 06/08/2025 11:50 AM EDT [facility] Blood BLOOD SPECIMEN / Unknown 06/08/2025 11:48 AM EDT 06/08/2025 11:50 AM EDT Hugh Zamarripa MD POINT OF CARE TEST ORDER PEDRO LUIS Final Result Performing Organization Address City/[facility] Co de Phone Number [facility] [address] [place] [address] * (ABNORMAL) GLUCOSE METER POC (06/08/2025 8:30 AM EDT) Glucose Meter POC 126(H) 70 - 100 mg/dL 06/08/2025 8:31 AM EDT [facility] Sample Type Capillary 06/08/2025 8:31 AM EDT [facility] Patient Status Non-Critical Patient 06/08/2025 8:31 AM EDT [facility] Blood BLOOD SPECIMEN / Unknown 06/08/2025 8:30 AM EDT 06/08/2025 8:31 AM EDT Hugh Zamarripa MD POINT OF CARE TEST ORDER PEDRO LUIS Final Result Performing Organization Address [facility] de Phone Number [facility] [address] [place] [address] * (ABNORMAL) GLUCOSE METER POC (06/07/2025 8:56 PM EDT) Glucose Meter POC 135(H) 70 - 100 mg/dL 06/07/2025 8:57 PM EDT [facility] Sample Type Capillary 06/07/2025 8:57 PM EDT [facility] Patient Status Non-Critical Patient 06/07/2025 8:57 PM EDT [facility] Blood BLOOD SPECIMEN / Unknown 06/07/2025 8:56 PM EDT 06/07/2025 8:57 PM EDT Hugh Zamarripa MD POINT OF CARE TEST ORDER PEDRO LUIS Final Result Performing Organization Address City/[facility]/ZIP Co de Phone Number [facility] [address] [place] [address] * (ABNORMAL) URINE CULTURE (NO STAIN) (06/07/2025 8:48 PM EDT) Culture Positive Growth(A) 06/10/2025 1:16 PM EDT [facility] Culture >100,000 CFU/mL Lactobacillus species SUSCEPTIB ILITY RESULT 06/10/2025 1:16 PM EDT [facility] Comment:No further workup. Culture 4,000 CFU/mL Ashley albicans SUSCEPTIB ILITY RESULT 06/10/2025 1:16 PM EDT [facility] Comment:No further workup. Urine STRUCTURE OF URINARY TRACT PROPER / Unknown 06/07/2025 8:48 PM EDT 06/07/2025 9:08 PM EDT Viral Sargent V, DO MICROBIOLOGY - GENERAL ORDERAB LES Final Result [facility] [address] , [place] [address] * EXTRA LAUGHLIN URINE CX (06/07/2025 8:48 PM EDT) Urine STRUCTURE OF URINARY TRACT PROPER / Unknown 06/07/2025 8:48 PM EDT 06/07/2025 8:59 PM EDT us Viral Sargent V, DO MICROBIOLOGY - GENERAL ORDERAB LES Final Result Performing Organization Address City/[facility]/ZIP Co de Phone Number [facility] [address] [place] [address] * (ABNORMAL) URINALYSIS REFLEX (06/07/2025 8:48 PM EDT) UA Color Yellow 06/07/2025 9:08 PM EDT [facility] UA Appear Clear Clear 06/07/2025 9:08 PM EDT [facility] UA Glucose Negative Negative mg/dL 06/07/2025 9:08 PM EDT [facility] UA Ketones Negative Negative mg/dL 06/07/2025 9:08 PM EDT [facility] UA Blood Negative Negative 06/07/2025 9:08 PM EDT [facility] UA pH 6.0 5.0 - 8.0 pH 06/07/2025 9:08 PM EDT [facility] UA Protein Trace(A) Negative mg/dL 06/07/2025 9:08 PM EDT [facility] UA Urobilinogen 0.2 <=1 mg/dL 9:08 PM EDT [facility] UA Bili Negative Negative 06/07/2025 9:08 PM EDT [facility] UA Nitrite Negative Negative 06/07/2025 9:08 PM EDT [facility] UA Leuk Est Small(A) Negative 06/07/2025 9:08 PM EDT [facility] UA Spec Grav 1.025 1.001 - 1.035 no units 06/07/2025 9:08 PM EDT [facility] Comment:Reference range tessie d for random specimens only. UA WBC 10(H) 0 - 4 /HPF 06/07/2025 9:08 PM EDT [facility] UA RBC 0 0 - 3 /HPF 06/07/2025 9:08 PM EDT [facility] UA Squam Epi 2+ /LPF 06/07/2025 9:08 PM EDT [facility] UA Mucus 2+ /LPF 06/07/2025 9:08 PM EDT [facility] UA Amorph 1+ /HPF 06/07/2025 9:08 PM EDT [facility] UA Bacteria Trace(A) Negative /HPF 06/07/2025 9:08 PM EDT [facility] Urine STRUCTURE OF URINARY TRACT PROPER / Unknown 06/07/2025 8:48 PM EDT 06/07/2025 8:59 PM EDT us Viral Sargent V, DO URINE ORDERABLES Final Result [facility] [address] [place] [address] * (ABNORMAL) GLUCOSE METER POC (06/07/2025 4:47 PM EDT) Glucose Meter POC 114(H) 70 - 100 mg/dL 06/07/2025 4:48 PM EDT [facility] Sample Type Capillary 06/07/2025 4:48 PM EDT [facility] Patient Status Non-Critical Patient 06/07/2025 4:48 PM EDT [facility] Blood BLOOD SPECIMEN / Unknown 06/07/2025 4:47 PM EDT 06/07/2025 4:48 PM EDT Hugh Zamarripa MD POINT OF CARE TEST ORDER PEDRO LUIS Final Result Performing Organization Address [facility] Co de Phone Number [facility] [address] [place] [address] * (ABNORMAL) GLUCOSE METER POC (06/07/2025 11:49 AM EDT) Glucose Meter POC 207(H) 70 - 100 mg/dL 06/07/2025 11:51 AM EDT [facility] Sample Type Capillary 06/07/2025 11:51 AM EDT [facility] Patient Status Non-Critical Patient 06/07/2025 11:51 AM EDT [facility] Blood BLOOD SPECIMEN / Unknown 06/07/2025 11:49 AM EDT 06/07/2025 11:51 AM EDT Hugh Zamarripa MD POINT OF CARE TEST ORDER PEDRO LUIS Final Result Performing Organization Address [facility] Co de Phone Number [facility] [address] [place] [address] * (ABNORMAL) GLUCOSE METER POC (06/07/2025 7:50 AM EDT) Glucose Meter POC 135(H) 70 - 100 mg/dL 06/07/2025 7:52 AM EDT [facility] Sample Type Capillary 06/07/2025 7:52 AM EDT [facility] Patient Status Non-Critical Patient 06/07/2025 7:52 AM EDT [facility] Blood BLOOD SPECIMEN / Unknown 06/07/2025 7:50 AM EDT 06/07/2025 7:52 AM EDT Hugh Zamarripa MD POINT OF CARE TEST ORDER PEDRO LUIS Final Result [facility] [address] [place] [address] * XR HIP LEFT AP LATERAL W AP PELVIS (06/07/2025 5:26 AM EDT) Anatomical Region Laterality Modality Hip Radiographic Liset ging 06/07/2025 5:26 AM EDT Impressions 06/07/2025 5:29 AM EDT Normal post-arthroplasty appearance. No fracture or other unexpected finding. - Note: Radiology results need to be interpreted within a comprehensive clinical context. If you have questions about the radiology report, please contact the office of the ordering clinician. Narrative 06/07/2025 5:29 AM EDT XR HIP LEFT AP LATERAL W AP PELVIS, 06/07/2025 5:26 AM. CLINICAL HISTORY: -left hip fracture COMPARISON: CT abdomen and pelvis from May 30, 2025 PROCEDURE COMMENTS: XR HIP LEFT AP LATERAL W AP PELVIS on 06/07/2025 5:26 AM. Procedure Note Hong Ayoub MD - 06/07/2025 XR HIP LEFT AP LATERAL W AP PELVIS, 06/07/2025 5:26 AM. CLINICAL HISTORY: -left hip fracture COMPARISON: CT abdomen and pelvis from May 30, 2025 PROCEDURE COMMENTS: XR HIP LEFT AP LATERAL W AP PELVIS on 06/07/2025 5:26AM. IMPRESSION: Normal post-arthroplasty appearance. No fracture or other unexpected finding. - Note: Radiology results need to be interpreted within a comprehensiveclinical context. If you have questions about the radiology report, please contactthe office of the ordering clinician. us Viral Arie VDO IMG DIAGNOSTIC IMAGING ORDERAB LES Final Result * (ABNORMAL) CBC WITH DIFF (06/07/2025 5:09 AM EDT) WBC 11.3(H) 3.7 - 10.3 x10(3)/mcL 06/07/2025 5:11 AM EDT [facility] RBC 3.92 3.90 - 5.20 x10(6)/mcL 06/07[facility]25 [facility] Hgb 11.8 11.2 - 15.7 g/dL 06/07/2025 5:11 AM [facility] Hct 36.3 34.0 - 45.0 % 06/07/2025 5:11 AM [facility] MCV 92.6 80.0 - 100.0 fL 06/07/2025 5:11 AM [facility] MCH 30.1 26.0 - 34.0 pg 06/07/2025 5:11 AM [facility] MCHC 32.5 30.7 - 35.5 g/dL 06/07/2025 5:11 AM [facility] RDW 12.5 <=14.9 % 06/07/2025 5:11 AM [facility] Platelet 341 155 - 369 x10(3)/mcL 06/07/2025 5:11 AM [facility] MPV 9.0 8.8 - 12.5 fL 06/07/2025 5:11 AM [facility] Neut Percent 79.0 % 06/07/2025 5:11 AM [facility] Comment:Neutrophils equals s egs plus bands Imm Gran% 0.4 % 06/07/2025 5:11 AM [facility] Comment:Automated count of m etamyelocytes, myelocytes and promyelocytes. Lymph Percent 11.7 % 06/07/2025 5:11 AM [facility] [place] Percent 6.9 % 06/07/2025 5:11 AM [facility] Eos Percent 1.5 % 06/07/2025 5:11 AM [facility] Baso Percent 0.5 % 06/07/2025 5:11 AM [facility] Neut # 8.9(H) 1.6 - 6.1 x10(3)/mcL 06/07/2025 5:11 AM [facility] Comment:Neutrophils equals s egs plus bands IMMGRAN# 0.0 0.0 - 0.1 x10(3)/mcL 06/07/2025 5:11 AM EDT [facility] Comment:Automated count of m etamyelocytes, myelocytes and promyelocytes. An absolute IG <0.1 is reported as 0.0. Lymph # 1.3 1.2 - 3.9 x10(3)/mcL 06/07/2025 5:11 AM EDT [facility] [place] # 0.8 0.3 - 0.9 x10(3)/mcL 06/07/2025 5:11 AM EDT [facility] Eos# 0.2 0.0 - 0.5 x10(3)/mcL 06/07/2025 5:11 AM EDT [facility] Baso # 0.1 0.0 - 0.1 x10(3)/mcL 06/07/2025 5:11 AM EDT [facility] Blood VENOUS BLOOD / Unknown Venipuncture / Unknown 06/07/2025 5:09 AM EDT 06/07/2025 5:09 AM EDT us Viral Sargent V, DO HEMATOLOGY ORDERABLES Final Re sult [facility] [address] [place] [phone] * (ABNORMAL) BASIC METABOLIC PANEL (06/07/2025 5:09 AM EDT) Sodium 142 136 - 145 mmol/L 06/07/2025 5:30 AM EDT [facility] Potassium 3.3(L) 3.5 - 5.0 mmol/L 06/07/2025 5:30 AM EDT [facility] Chloride 104 98 - 107 mmol/L 06/07/2025 5:30 AM EDT [facility] Total CO2 28 22 - 29 mmol/L 06/07/2025 5:30 AM EDT [facility] Anion Gap 10 7 - 16 mmol/L 06/07/2025 5:30 AM EDT [facility] Calcium 8.7(L) 8.8 - 10.4 mg/dL 06/07/2025 5:30 AM EDT [facility] Glucose Lvl 143(H) 70 - 99 mg/dL 06/07/2025 5:30 AM EDT [facility] BUN 16 8 - 23 mg/dL 06/07/2025 5:30 AM EDT [facility] Creatinine 0.66 0.51 - 1.30 mg/dL 06/07/2025 5:30 AM EDT [facility] eGFR (CKD-EPIcr 2020) 85 >=60 mL/min/1.7 3 m2 06/07/2025 5:30 AM EDT [facility] Comment:Estimated GFR was ca lculated using the CKD-EPIcr (2020) equation refit without race. The equation is recommended by the [employer] - [place] [employer]ph[employer] Task Force. Blood VENOUS BLOOD / Unknown Venipuncture / Unknown 06/07/2025 5:09 AM EDT 06/07/2025 5:09 AM EDT us Geo Sargentdevorah Merchant DO CHEMISTRY ORDERABLES Final Res ult Performing Organization Address [facility] Co de Phone Number [facility] [address] [place] [address] * (ABNORMAL) GLUCOSE METER POC (06/06/2025 9:21 PM EDT) Glucose Meter POC 126(H) 70 - 100 mg/dL 06/06/2025 9:23 PM EDT [facility] Sample Type Capillary 06/06/2025 9:23 PM EDT [facility] Patient Status Non-Critical Patient 06/06/2025 9:23 PM EDT [facility] Blood BLOOD SPECIMEN / Unknown 06/06/2025 9:21 PM EDT 06/06/2025 9:23 PM EDT us Hugh Zamarripa MD POINT OF CARE TEST ORDER PEDRO LUIS Final Result Performing Organization Address [facility] Co de Phone Number [facility] [address] [place] [address] * (ABNORMAL) GLUCOSE METER POC (06/06/2025 4:50 PM EDT) Glucose Meter POC 161(H) 70 - 100 mg/dL 06/06/2025 4:52 PM EDT [facility] Sample Type Capillary 06/06/2025 4:52 PM EDT [facility] Patient Status Non-Critical Patient 06/06/2025 4:52 PM EDT [facility] Blood BLOOD SPECIMEN / Unknown 06/06/2025 4:50 PM EDT 06/06/2025 4:52 PM EDT Hugh Zamarripa MD POINT OF CARE TEST ORDER PEDRO LUIS Final Result Performing Organization Address City/[facility]/ZIP Co de Phone Number [facility] [address] [place] [address] * (ABNORMAL) GLUCOSE METER POC (06/06/2025 12:37 PM EDT) Glucose Meter POC 137(H) 70 - 100 mg/dL 06/06/2025 12:38 PM EDT [facility] Sample Type Capillary 06/06/2025 12:38 PM EDT [facility] Patient Status Non-Critical Patient 06/06/2025 12:38 PM EDT [facility] Blood BLOOD SPECIMEN / Unknown 06/06/2025 12:37 PM EDT 06/06/2025 12:38 PM EDT Hugh Zamarripa MD POINT OF CARE TEST ORDER PEDRO LUIS Final Result Performing Organization Address City/[facility]/ZIP Co de Phone Number [facility] [address] [place] [address] * (ABNORMAL) GLUCOSE METER POC (06/06/2025 7:53 AM EDT) Glucose Meter POC 105(H) 70 - 100 mg/dL 06/06/2025 7:54 AM EDT [facility] Sample Type Capillary 06/06/2025 7:54 AM EDT [facility] Patient Status Non-Critical Patient 06/06/2025 7:54 AM EDT [facility] Blood BLOOD SPECIMEN / Unknown 06/06/2025 7:53 AM EDT 06/06/2025 7:54 AM EDT Hugh Zamarripa MD POINT OF CARE TEST ORDER PEDRO LUIS Final Result [facility] [address] [place] [address] * (ABNORMAL) BASIC METABOLIC PANEL (06/06/2025 5:26 AM EDT) Sodium 145 136 - 145 mmol/L 06/06/2025 5:48 AM EDT [facility] Potassium 3.1(L) 3.5 - 5.0 mmol/L 06/06/2025 5:48 AM EDT [facility] Chloride 104 98 - 107 mmol/L 06/06/2025 5:48 AM EDT [facility] Total CO2 29 22 - 29 mmol/L 06/06/2025 5:48 AM EDT [facility] Anion Gap 12 7 - 16 mmol/L 06/06/2025 5:48 AM EDT [facility] Calcium 8.8 8.8 - 10.4 mg/dL 06/06/2025 5:48 AM EDT [facility] Glucose Lvl 132(H) 70 - 99 mg/dL 06/06/2025 5:48 AM EDT [facility] BUN 18 8 - 23 mg/dL 06/06/2025 5:48 AM EDT [facility] Creatinine 0.67 0.51 - 1.30 mg/dL 06/06/2025 5:48 AM EDT [facility] eGFR (CKD-EPIcr 2020) 86 >=60 mL/min/1.7 3 m2 06/06/2025 5:48 AM EDT [facility] Comment:Estimated GFR was ca lculated using the CKD-EPIcr (2020) equation refit without race. The equation is recommended by the [employer] - [place] [employer]ph[employer] Task Force. Blood VENOUS BLOOD / Unknown Venipuncture / Unknown 06/06/2025 5:26 AM EDT 06/06/2025 5:26 AM EDT us Viral Sargent V, DO CHEMISTRY ORDERABLES Final Res ult [facility] [address] [place] [address] * (ABNORMAL) CBC WITH DIFF (06/06/2025 5:26 AM EDT) WBC 11.9(H) 3.7 - 10.3 x10(3)/mcL 06/06/2025 5:30 AM EDT [facility] RBC 3.98 3.90 - 5.20 x10(6)/mcL 06/06/2025 5:30 AM EDT [facility] Hgb 12.0 11.2 - 15.7 g/dL 06/06/2025 5:30 AM EDT [facility] Hct 37.1 34.0 - 45.0 % 06/06/2025 5:30 AM EDT [facility] MCV 93.2 80.0 - 100.0 fL 06/06/2025 5:30 AM EDT [facility] MCH 30.2 26.0 - 34.0 pg 06/06/2025 5:30 AM EDT [facility] MCHC 32.3 30.7 - 35.5 g/dL 06/06/2025 5:30 AM EDT [facility] RDW 12.5 <=14.9 % 06/06/2025 5:30 AM EDT [facility] Platelet 345 155 - 369 x10(3)/mcL 06/06/2025 5:30 AM EDT [facility] MPV 9.1 8.8 - 12.5 fL 06/06/2025 5:30 AM EDT [facility] Neut Percent 76.0 % 06/06/2025 5:30 AM EDT [facility] Comment:Neutrophils equals s egs plus bands Imm Gran% 0.4 % 06/06/2025 5:30 AM EDT [facility] Comment:Automated count of m etamyelocytes, myelocytes and promyelocytes. Lymph Percent 14.7 % 06/06/2025 5:30 AM EDT [facility] [place] Percent 6.8 % 06/06/2025 5:30 AM EDT [facility] Eos Percent 1.8 % 06/06/2025 5:30 AM EDT [facility] Baso Percent 0.3 % 06/06/2025 5:30 AM EDT [facility] Neut # 9.1(H) 1.6 - 6.1 x10(3)/[facility] 06/06/2025 5:30 AM EDT [facility] Comment:Neutrophils equals s egs plus bands IMMGRAN# 0.1 0.0 - 0.1 x10(3)/[facility] 06/06/2025 5:30 AM EDT [facility] Comment:Automated count of m etamyelocytes, myelocytes and promyelocytes. An absolute IG <0.1 is reported as 0.0. Lymph # 1.8 1.2 - 3.9 x10(3)/[facility] 06/06/2025 5:30 AM EDT [facility] [place] # 0.8 0.3 - 0.9 x10(3)/[facility] 06/06/2025 5:30 AM EDT [facility] Eos# 0.2 0.0 - 0.5 x10(3)/[facility] 06/06/2025 5:30 AM EDT [facility] Baso # 0.0 0.0 - 0.1 x10(3)/[facility] 06/06/2025 5:30 AM EDT [facility] LABORATORY Blood VENOUS BLOOD / Unknown Venipuncture / Unknown 06/06/2025 5:26 AM EDT 06/06/2025 5:26 AM EDT us Viral Sargent V, DO HEMATOLOGY ORDERABLES Final Re sult [facility] [address] [place] [address] * (ABNORMAL) GLUCOSE METER POC (06/05/2025 8:23 PM EDT) [facility] Glucose Meter POC 184(H) 70 - 100 mg/dL 06/05/2025 8:25 PM EDT [facility] Sample Type Capillary 06/05/2025 8:25 PM EDT [facility] Patient Status Non-Critical Patient 06/05/2025 8:25 PM EDT [facility] Blood BLOOD SPECIMEN / Unknown 06/05/2025 8:23 PM EDT 06/05/2025 8:25 PM EDT Hugh Zamarripa MD POINT OF CARE TEST ORDER PEDRO LUIS Final Result Performing Organization Address City/[facility]/ZIP Co de Phone Number [facility] [address] [place] [address] * (ABNORMAL) GLUCOSE METER POC (06/05/2025 5:14 PM EDT) Glucose Meter POC 151(H) 70 - 100 mg/dL 06/05/2025 5:15 PM EDT [facility] Sample Type Capillary 06/05/2025 5:15 PM EDT [facility] Patient Status Non-Critical Patient 06/05/2025 5:15 PM EDT [facility] Blood BLOOD SPECIMEN / Unknown 06/05/2025 5:14 PM EDT 06/05/2025 5:15 PM EDT Hugh Zamarripa MD POINT OF CARE TEST ORDER PEDRO LUIS Final Result Performing Organization Address City/[facility] Co de Phone Number [facility] [address] [place] [address] * (ABNORMAL) GLUCOSE METER POC (06/05/2025 12:00 PM EDT) Glucose Meter POC 132(H) 70 - 100 mg/dL 06/05/2025 12:01 PM EDT [facility] Sample Type Capillary 06/05/2025 12:01 PM EDT [facility] Patient Status Non-Critical Patient 06/05/2025 12:01 PM EDT [facility] Blood BLOOD SPECIMEN / Unknown 06/05/2025 12:00 PM EDT 06/05/2025 12:01 PM EDT Hugh Zamarripa MD POINT OF CARE TEST ORDER PEDRO LUIS Final Result Performing Organization Address City/[facility] Co de Phone Number [facility] [address] [place] [address] * (ABNORMAL) GLUCOSE METER POC (06/05/2025 7:52 AM EDT) Glucose Meter POC 157(H) 70 - 100 mg/dL 06/05/2025 7:53 AM EDT [facility] Sample Type Capillary 06/05/2025 7:53 AM EDT [facility] Patient Status Non-Critical Patient 06/05/2025 7:53 AM EDT [facility] Blood BLOOD SPECIMEN / Unknown 06/05/2025 7:52 AM EDT 06/05/2025 7:53 AM EDT us Hugh Zamarripa MD POINT OF CARE TEST ORDER PEDRO LUIS Final Result Performing Organization Address [facility] de Phone Number [facility] [address] [place] [address] * (ABNORMAL) GLUCOSE METER POC (06/04/2025 9:05 PM EDT) Glucose Meter POC 165(H) 70 - 100 mg/dL 06/04/2025 9:07 PM EDT [facility] Sample Type Capillary 06/04/2025 9:07 PM EDT [facility] Patient Status Non-Critical Patient 06/04/2025 9:07 PM EDT [facility] Blood BLOOD SPECIMEN / Unknown 06/04/2025 9:05 PM EDT 06/04/2025 9:07 PM EDT Hugh Zamarripa MD POINT OF CARE TEST ORDER PEDRO LUIS Final Result Performing Organization Address [facility] Co de Phone Number [facility] [address] [place] [address] * (ABNORMAL) GLUCOSE METER POC (06/04/2025 5:06 PM EDT) Glucose Meter POC 124(H) 70 - 100 mg/dL 06/04/2025 5:08 PM EDT [facility] Sample Type Capillary 06/04/2025 5:08 PM EDT [facility] Patient Status Non-Critical Patient 06/04/2025 5:08 PM EDT [facility] Blood BLOOD SPECIMEN / Unknown 06/04/2025 5:06 PM EDT 06/04/2025 5:08 PM EDT Hugh Zamarripa MD POINT OF CARE TEST ORDER PEDRO LUIS Final Result Performing Organization Address City/[facility]/ZIP Co de Phone Number [facility] [address] [place] [address] * (ABNORMAL) GLUCOSE METER POC (06/04/2025 12:01 PM EDT) Glucose Meter POC 199(H) 70 - 100 mg/dL 06/04/2025 12:02 PM EDT [facility] Sample Type Capillary 06/04/2025 12:02 PM EDT [facility] Patient Status Non-Critical Patient 06/04/2025 12:02 PM EDT [facility] Blood BLOOD SPECIMEN / Unknown 06/04/2025 12:01 PM EDT 06/04/2025 12:02 PM EDT Hugh Zamarripa MD POINT OF CARE TEST ORDER PEDRO LUIS Final Result Performing Organization Address City/[facility]/ZIP Co de Phone Number [facility] [address] [place] [address] * (ABNORMAL) GLUCOSE METER POC (06/04/2025 8:52 AM EDT) Glucose Meter POC 164(H) 70 - 100 mg/dL 06/04/2025 8:54 AM EDT [facility] Sample Type Capillary 06/04/2025 8:54 AM EDT [facility] Patient Status Non-Critical Patient 06/04/2025 8:54 AM EDT [facility] Blood BLOOD SPECIMEN / Unknown 06/04/2025 8:52 AM EDT 06/04/2025 8:54 AM EDT Hugh Zamarripa MD POINT OF CARE TEST ORDER PEDRO LUIS Final Result Performing Organization Address City/[facility]/ZIP Co de Phone Number [facility] [address] [place] [address] * (ABNORMAL) GLUCOSE METER POC (06/03/2025 8:26 PM EDT) Glucose Meter POC 236(H) 70 - 100 mg/dL 06/03/2025 8:28 PM EDT [facility] Sample Type Capillary 06/03/2025 8:28 PM EDT [facility] Patient Status Non-Critical Patient 06/03/2025 8:28 PM EDT [facility] Blood BLOOD SPECIMEN / Unknown 06/03/2025 8:26 PM EDT 06/03/2025 8:28 PM EDT Hugh Zamarripa MD POINT OF CARE TEST ORDER PEDRO LUIS Final Result Performing Organization Address [facility] de Phone Number [facility] [address] [place] [address] * (ABNORMAL) GLUCOSE METER POC (06/03/2025 4:49 PM EDT) Glucose Meter POC 158(H) 70 - 100 mg/dL 06/03/2025 4:50 PM EDT [facility] Sample Type Capillary 06/03/2025 4:50 PM EDT [facility] Patient Status Non-Critical Patient 06/03/2025 4:50 PM EDT [facility] Blood BLOOD SPECIMEN / Unknown 06/03/2025 4:49 PM EDT 06/03/2025 4:50 PM EDT Hugh Zamarripa MD POINT OF CARE TEST ORDER PEDRO LUIS Final Result Performing Organization Address City/[facility]/ZIP Co de Phone Number [facility] [address] [place] [address] * (ABNORMAL) GLUCOSE METER POC (06/03/2025 11:16 AM EDT) Glucose Meter POC 157(H) 70 - 100 mg/dL 06/03/2025 11:18 AM EDT [facility] Sample Type Capillary 06/03/2025 11:18 AM EDT [facility] Patient Status Non-Critical Patient 06/03/2025 11:18 AM EDT [facility] Blood BLOOD SPECIMEN / Unknown 06/03/2025 11:16 AM EDT 06/03/2025 11:18 AM EDT Hugh Zamarripa MD POINT OF CARE TEST ORDER PEDRO LUSI Final Result Performing Organization Address City/[facility]/ZIP Co de Phone Number [facility] [address] [place] [address] * (ABNORMAL) GLUCOSE METER POC (06/03/2025 8:00 AM EDT) Glucose Meter POC 182(H) 70 - 100 mg/dL 06/03/2025 8:01 AM EDT [facility] Sample Type Capillary 06/03/2025 8:01 AM EDT [facility] Patient Status Non-Critical Patient 06/03/2025 8:01 AM EDT [facility] Blood BLOOD SPECIMEN / Unknown 06/03/2025 8:00 AM EDT 06/03/2025 8:01 AM EDT Hugh Zamarripa MD POINT OF CARE TEST ORDER PEDRO LUIS Final Result [facility] [address] [place] [address] * (ABNORMAL) GLUCOSE METER POC (06/02/2025 9:00 PM EDT) Glucose Meter POC 192(H) 70 - 100 mg/dL 06/02/2025 9:02 PM EDT [facility] Sample Type Capillary 06/02/2025 9:02 PM EDT [facility] Patient Status Non-Critical Patient 06/02/2025 9:02 PM EDT [facility] Blood BLOOD SPECIMEN / Unknown 06/02/2025 9:00 PM EDT 06/02/2025 9:02 PM EDT Hugh Zamarripa MD POINT OF CARE TEST ORDER PEDRO LUIS Final Result Performing Organization Address City/[facility] Co de Phone Number [facility] [address] [place] [address] * (ABNORMAL) GLUCOSE METER POC (06/02/2025 4:25 PM EDT) Glucose Meter POC 131(H) 70 - 100 mg/dL 06/02/2025 4:27 PM EDT [facility] Sample Type Capillary 06/02/2025 4:27 PM EDT [facility] Patient Status Non-Critical Patient 06/02/2025 4:27 PM EDT [facility] Blood BLOOD SPECIMEN / Unknown 06/02/2025 4:25 PM EDT 06/02/2025 4:27 PM EDT Hugh Zamarripa MD POINT OF CARE TEST ORDER PEDRO LUIS Final Result Performing Organization Address City/[facility] de Phone Number [facility] [address] [place] [address] * (ABNORMAL) GLUCOSE METER POC (06/02/2025 12:17 PM EDT) Glucose Meter POC 139(H) 70 - 100 mg/dL 06/02/2025 12:19 PM EDT [facility] Sample Type Capillary 06/02/2025 12:19 PM EDT [facility] Patient Status Non-Critical Patient 06/02/2025 12:19 PM EDT [facility] Blood BLOOD SPECIMEN / Unknown 06/02/2025 12:17 PM EDT 06/02/2025 12:19 PM EDT Hugh Zamarripa MD POINT OF CARE TEST ORDER PEDRO LUIS Final Result Performing Organization Address City/[facility]/ZIP Co de Phone Number [facility] [address] [place] [address] * (ABNORMAL) GLUCOSE METER POC (06/02/2025 8:30 AM EDT) Glucose Meter POC 185(H) 70 - 100 mg/dL 06/02/2025 8:32 AM EDT [facility] Sample Type Capillary 06/02/2025 8:32 AM EDT [facility] Patient Status Non-Critical Patient 06/02/2025 8:32 AM EDT [facility] Blood BLOOD SPECIMEN / Unknown 06/02/2025 8:30 AM EDT 06/02/2025 8:32 AM EDT Hugh Zamarripa MD POINT OF CARE TEST ORDER PEDRO LUIS Final Result Performing Organization Address [facility] de Phone Number [facility] [address] [place] [address] * (ABNORMAL) GLUCOSE METER POC (06/01/2025 8:00 PM EDT) Glucose Meter POC 251(H) 70 - 100 mg/dL 06/01/2025 8:04 PM EDT [facility] Sample Type Capillary 06/01/2025 8:04 PM EDT [facility] Patient Status Non-Critical Patient 06/01/2025 8:04 PM EDT [facility] Blood BLOOD SPECIMEN / Unknown 06/01/2025 8:00 PM EDT 06/01/2025 8:04 PM EDT Hugh Zamarripa MD POINT OF CARE TEST ORDER PEDRO LUIS Final Result Performing Organization Address City/[facility] Co de Phone Number [facility] [address] [place] [address] * (ABNORMAL) GLUCOSE METER POC (06/01/2025 4:41 PM EDT) Glucose Meter POC 247(H) 70 - 100 mg/dL 06/01/2025 4:43 PM EDT [facility] Sample Type Capillary 06/01/2025 4:43 PM EDT [facility] Patient Status Non-Critical Patient 06/01/2025 4:43 PM EDT [facility] Blood BLOOD SPECIMEN / Unknown 06/01/2025 4:41 PM EDT 06/01/2025 4:43 PM EDT Hugh Zamarripa MD POINT OF CARE TEST ORDER PEDRO LUIS Final Result Performing Organization Address City/[facility]/ZIP Co de Phone Number [facility] [address] [place] [address] * (ABNORMAL) GLUCOSE METER POC (06/01/2025 12:17 PM EDT) Glucose Meter POC 235(H) 70 - 100 mg/dL 06/01/2025 12:19 PM EDT [facility] Sample Type Capillary 06/01/2025 12:19 PM EDT [facility] Patient Status Non-Critical Patient 06/01/2025 12:19 PM EDT [facility] Blood BLOOD SPECIMEN / Unknown 06/01/2025 12:17 PM EDT 06/01/2025 12:19 PM EDT Hugh Zamarripa MD POINT OF CARE TEST ORDER PEDRO LUIS Final Result Performing Organization Address City/[facility]/ZIP Co de Phone Number [facility] [address] [place] [address] * (ABNORMAL) GLUCOSE METER POC (06/01/2025 8:36 AM EDT) Glucose Meter POC 242(H) 70 - 100 mg/dL 06/01/2025 8:37 AM EDT [facility] Sample Type Capillary 06/01/2025 8:37 AM EDT [facility] Patient Status Non-Critical Patient 06/01/2025 8:37 AM EDT [facility] Blood BLOOD SPECIMEN / Unknown 06/01/2025 8:36 AM EDT 06/01/2025 8:37 AM EDT Hugh Zamarripa MD POINT OF CARE TEST ORDER PEDRO LUIS Final Result Performing Organization Address City/[facility] Co de Phone Number [facility] [address] [place] [address] * (ABNORMAL) GLUCOSE METER POC (05/31/2025 8:03 PM EDT) Glucose Meter POC 202(H) 70 - 100 mg/dL 05/31/2025 8:04 PM EDT [facility] Sample Type Capillary 05/31/2025 8:04 PM EDT [facility] Patient Status Non-Critical Patient 05/31/2025 8:04 PM EDT [facility] Blood BLOOD SPECIMEN / Unknown 05/31/2025 8:03 PM EDT 05/31/2025 8:04 PM EDT Hugh Zamarripa MD POINT OF CARE TEST ORDER PEDRO LUIS Final Result Performing Organization Address [facility] de Phone Number [facility] [address] [place] [address] * PARTIAL THROMBOPLASTIN TIME (05/31/2025 4:43 PM EDT) Pathologist [facility] PTT 31.8 25.7 - 36.8 second(s) 05/31/2025 4:58 PM EDT [facility] Comment: Therapeutic range for unfractionated heparin: 50.1 - 98.7 seconds Therapeutic range for direct thrombin inhibitors: Argatroban is 1.5 to 3 times the aPTT baseline. Lepirudin is 1.5 to 2 times the aPTT baseline. The aPTT should not exceed 100 seconds. The dosage of Argatroban should be decreased in patients with hepatic impairment. The dosage of Lepirudin should be decreased in renal insufficiency. Blood VENOUS BLOOD / Unknown Venipuncture / Unknown 05/31/2025 4:43 PM EDT 05/31/2025 4:47 PM EDT Hugh Zamarripa MD HEMATOLOGY ORDERABLES Fi nal Result Performing Organization Address [facility] de Phone Number [facility] [address] [place] [address] * (ABNORMAL) PT / INR (05/31/2025 4:43 PM EDT) PT 13.7(H) 10.5 - 13.6 second(s) 05/31/2025 4:58 PM EDT [facility] INR 1.19(H) 0.91 - 1.18 (ratio) 05/31/2025 4:58 PM EDT [facility] Comment: Level of Therapy Indications Target INR Range Standard Dose Treatment and prophylaxis of venous 2.0 - 3.0 thrombosis, pulmonary embolism High Dose High risk patients with mechanical 2.5 - 3.5 heart valves Blood VENOUS BLOOD / Unknown Venipuncture / Unknown 05/31/2025 4:43 PM EDT 05/31/2025 4:47 PM EDT Hugh Zamarripa MD HEMATOLOGY ORDERABLES Fi nal Result Performing Organization Address [facility] de Phone Number [facility] [address] [place] [address] * (ABNORMAL) CBC WITH DIFF (05/31/2025 4:43 PM EDT) WBC 11.6(H) 3.7 - 10.3 x10(3)/mcL 05/31/2025 4:51 PM EDT [facility] RBC 4.09 3.90 - 5.20 x10(6)/mcL 05/31/2025 4:51 PM EDT [facility] Hgb 12.1 11.2 - 15.7 g/dL 05/31/2025 4:51 PM EDT [facility] Hct 38.3 34.0 - 45.0 % 05/31/2025 4:51 PM EDT [facility] MCV 93.6 80.0 - 100.0 fL 05/31/2025 4:51 PM [facility] MCH 29.6 26.0 - 34.0 pg 05/31/2025 4:51 PM [facility] MCHC 31.6 30.7 - 35.5 g/dL 05/31/2025 4:51 PM [facility] RDW 12.1 <=14.9 % 05/31/2025 4:51 PM [facility] Platelet 291 155 - 369 x10(3)/mcL 05/31/2025 4:51 PM [facility] MPV 9.2 8.8 - 12.5 fL 05/31/2025 4:51 PM [facility] Neut Percent 71.9 % 05/31/2025 4:51 PM [facility] Comment:Neutrophils equals s egs plus bands Imm Gran% 0.2 % 05/31/2025 4:51 PM [facility] Comment:Automated count of m etamyelocytes, myelocytes and promyelocytes. Lymph Percent 13.9 % 05/31/2025 4:51 PM [facility] [place] Percent 12.8 % 05/31/2025 4:51 PM [facility] Eos Percent 0.9 % 05/31/2025 4:51 PM [facility] Baso Percent 0.3 % 05/31/2025 4:51 PM [facility] Neut # 8.3(H) 1.6 - 6.1 x10(3)/mcL 05/31/2025 4:51 PM [facility] Comment:Neutrophils equals s egs plus bands IMMGRAN# 0.0 0.0 - 0.1 x10(3)/mcL 05/31/2025 4:51 PM [facility] Comment:Automated count of m etamyelocytes, myelocytes and promyelocytes. An absolute IG <0.1 is reported as 0.0. Lymph # 1.6 1.2 - 3.9 x10(3)/mcL 05/31/2025 4:51 PM [facility] [place] # 1.5(H) 0.3 - 0.9 x10(3)/mcL 05/31/2025 4:51 PM [facility] Eos# 0.1 0.0 - 0.5 x10(3)/mcL 05/31/2025 4:51 PM EDT [facility] Baso # 0.0 0.0 - 0.1 x10(3)/mcL 05/31/2025 4:51 PM EDT [facility] Blood VENOUS BLOOD / Unknown Venipuncture / Unknown 05/31/2025 4:43 PM EDT 05/31/2025 4:47 PM EDT Hugh Zamarripa MD HEMATOLOGY ORDERABLES Fi nal Result Performing Organization Address City/[facility]/ZIP Co de Phone Number [facility] [address] [place] [address] * (ABNORMAL) GLUCOSE METER POC (05/31/2025 4:37 PM EDT) Glucose Meter POC 175(H) 70 - 100 mg/dL 05/31/2025 4:40 PM EDT [facility] Sample Type Capillary 05/31/2025 4:40 PM EDT [facility] Patient Status Non-Critical Patient 05/31/2025 4:40 PM EDT [facility] Blood BLOOD SPECIMEN / Unknown 05/31/2025 4:37 PM EDT 05/31/2025 4:40 PM EDT Hugh Zamarripa MD POINT OF CARE TEST ORDER PEDRO LUIS Final Result Performing Organization Address City/[facility]/ZIP Co de Phone Number [facility] [address] [place] [address] * (ABNORMAL) GLUCOSE METER POC (05/31/2025 11:41 AM EDT) Glucose Meter POC 195(H) 70 - 100 mg/dL 05/31/2025 11:42 AM EDT [facility] Sample Type Capillary 05/31/2025 11:42 AM EDT [facility] Patient Status Non-Critical Patient 05/31/2025 11:42 AM EDT [facility] Blood BLOOD SPECIMEN / Unknown 05/31/2025 11:41 AM EDT 05/31/2025 11:42 AM EDT Hugh Zamarripa MD POINT OF CARE TEST ORDER PEDRO LUIS Final Result Performing Organization Address City/[facility] Co de Phone Number [facility] [address] [place] [address] * (ABNORMAL) GLUCOSE METER POC (05/31/2025 8:12 AM EDT) Glucose Meter POC 233(H) 70 - 100 mg/dL 05/31/2025 8:13 AM EDT [facility] Sample Type Capillary 05/31/2025 8:13 AM EDT [facility] Patient Status Non-Critical Patient 05/31/2025 8:13 AM EDT [facility] Blood BLOOD SPECIMEN / Unknown 05/31/2025 8:12 AM EDT 05/31/2025 8:13 AM EDT Hugh Zamarripa MD POINT OF CARE TEST ORDER PEDRO LUIS Final Result Performing Organization Address [facility] de Phone Number [facility] [address] [place] [address] * (ABNORMAL) GLUCOSE METER POC (05/30/2025 7:58 PM EDT) Glucose Meter POC 272(H) 70 - 100 mg/dL 05/30/2025 8:01 PM EDT [facility] Sample Type Capillary 05/30/2025 8:01 PM EDT [facility] Patient Status Non-Critical Patient 05/30/2025 8:01 PM EDT [facility] Blood BLOOD SPECIMEN / Unknown 05/30/2025 7:58 PM EDT 05/30/2025 8:01 PM EDT Hugh Zamarripa MD POINT OF CARE TEST ORDER PEDRO LUIS Final Result Performing Organization Address City/[facility]/ZIP Co de Phone Number [facility] [address] [place] [address] * (ABNORMAL) GLUCOSE METER POC (05/30/2025 5:07 PM EDT) Glucose Meter POC 269(H) 70 - 100 mg/dL 05/30/2025 5:09 PM EDT [facility] Sample Type Capillary 05/30/2025 5:09 PM EDT [facility] Patient Status Non-Critical Patient 05/30/2025 5:09 PM EDT [facility] Blood BLOOD SPECIMEN / Unknown 05/30/2025 5:07 PM EDT 05/30/2025 5:09 PM EDT Hugh Zamarripa MD POINT OF CARE TEST ORDER PEDRO LUIS Final Result [facility] [address] [place] [address] * CT ABDOMEN PELVIS HEMATURIA/RENAL MASS PROTOCOL (05/30/2025 1:35 PM EDT) Anatomical Region Laterality Modality Abdomen, Pelvis, Hip, Chest Comp uted Tomography 05/30/2025 1:35 PM EDT Impressions 05/30/2025 2:22 PM EDT 1. There is a 13 mm lesion within the upper pole of the left kidney which demonstrates questionable lesional enhancement. This is indeterminate. Recommend MRI of the abdomen with and without contrast for further evaluation. 2. A 17 mm left adrenal adenoma. 3. Small right, trace left pleural effusions. - Note: Radiology results need to be interpreted within a comprehensive clinical context. If you have questions about the radiology report, please contact the office of the ordering clinician. Narrative 05/30/2025 2:[address] ABDOMEN WITH AND WITHOUT CONTRAST, Hematuria protocol, 05/30/2025 1:35 PM CLINICAL HISTORY: Adrenal, renal mass.-follow up from previous CT COMPARISON: No prior studies are available for direct comparison. PROCEDURE COMMENTS: Multi-detector volumetric scanning of the abdomen with multiplanar reformatting following the hematuria protocol. Imaging included non-contrast and contrast enhanced phases. Excretory phase imaging included. 75 mL Isovue 370 IV contrast given. FINDINGS: LOWER THORAX: Small right, trace left pleural effusions with mild bibasilar atelectasis. ABDOMEN AND PELVIS: KIDNEYS/URETERS/BLADDER: There is a 6 mm nonenhancing hyperdense cyst arising from the lateral aspect of the left kidney inferiorly. The superior aspect of the left kidney there is a vague area of hypoenhancement, best seen on the coronal view involving upper pole left kidney measuring 13 mm. Noncontrasted measures 26 Hounsfield units, cortical medullary phase 34 Hounsfield units, delayed phased 46 Hounsfield units. This demonstrates questionable lesional enhancement and is indeterminate. There is no hydronephrosis. No urinary tract stone is identified. A small amount of gas is present within the urinary bladder. No filling defect within the renal collecting system or ureters on the delayed views. ADRENAL GLANDS: There is a 17 mm left adrenal gland nodule, noncontrast phase measures 3.9 Hounsfield units, most compatible with adrenal adenoma. The right adrenal gland is normal. Remaining viscera: No focal liver lesion. No biliary ductal dilation. Pancreas, spleen, are normal. There are no dilated bowel loops. No evidence of wall thickening or free air. The appendix is normal. Sigmoid diverticulosis without diverticulitis. Severe atherosclerotic disease abdominal aorta. No fluid collection or adenopathy within the abdomen or pelvis. No acute or destructive osseous abnormality. Procedure Note Sheldon Polk MD - 05/30/2025 CT ABDOMEN WITH AND WITHOUT CONTRAST, Hematuria protocol, 05/30/2025 1:35PM CLINICAL HISTORY: Adrenal, renal mass.-follow up from previous CT COMPARISON: No prior studies are available for direct comparison. PROCEDURE COMMENTS: Multi-detector volumetric scanning of the abdomenwith multiplanar reformatting following the hematuria protocol. Imagingincluded non-contrast and contrast enhanced phases. Excretory phase imagingincluded. 75 mL Isovue 370 IV contrast given. FINDINGS: LOWER THORAX: Small right, trace left pleural effusions with mildbibasilar atelectasis. ABDOMEN AND PELVIS: KIDNEYS/URETERS/BLADDER: There is a 6 mm nonenhancing hyperdense cystarising from the lateral aspect of the left kidney inferiorly. The superior aspectof the left kidney there is a vague area of hypoenhancement, best seen onthe coronal view involving upper pole left kidney measuring 13 mm.Noncontrasted measures 26 Hounsfield units, cortical medullary phase 34 Hounsfieldunits, delayed phased 46 Hounsfield units. This demonstrates questionablelesional enhancement and is indeterminate. There is no hydronephrosis. No urinarytract stone is identified. A small amount of gas is present within the urinary bladder. No filling defect within the renal collecting system or ureterson the delayed views. ADRENAL GLANDS: There is a 17 mm left adrenal gland nodule, noncontrastphase measures 3.9 Hounsfield units, most compatible with adrenal adenoma. Theright adrenal gland is normal. Remaining viscera: No focal liver lesion. No biliary ductal dilation.Pancreas, spleen, are normal. There are no dilated bowel loops. No evidence ofwall thickening or free air. The appendix is normal. Sigmoid diverticulosiswithout diverticulitis. Severe atherosclerotic disease abdominal aorta. No fluid collection or adenopathy within the abdomen or pelvis. No acute ordestructive osseous abnormality. IMPRESSION: 1. There is a 13 mm lesion within the upper pole of the left kidneywhich demonstrates questionable lesional enhancement. This is indeterminate.Recommend MRI of the abdomen with and without contrast for further evaluation. 2. A 17 mm left adrenal adenoma. 3. Small right, trace left pleural effusions. - Note: Radiology results need to be interpreted within a comprehensiveclinical context. If you have questions about the radiology report, please contactthe office of the ordering clinician. Hugh Zamarripa MD IMG CT ORDERABLES Final Result * CREATININE ISTAT (05/30/2025 1:26 PM EDT) Creatinine-iST AT 0.9 0.6 - 1.3 mg/dL 05/30/2025 1:28 PM EDT [facility] Blood BLOOD SPECIMEN / Unknown 05/30/2025 1:26 PM EDT 05/30/2025 1:28 PM EDT Hugh Zamarripa MD POINT OF CARE TEST ORDER PEDRO LUIS Final Result [facility] [address] [place] [address] 101 * (ABNORMAL) GLUCOSE METER POC (05/30/2025 9:02 AM EDT) Glucose Meter POC 272(H) 70 - 100 mg/dL 05/30/2025 9:03 AM EDT [facility] Sample Type Capillary 05/30/2025 9:03 AM EDT [facility] Patient Status Non-Critical Patient 05/30/2025 9:03 AM EDT [facility] Blood BLOOD SPECIMEN / Unknown 05/30/2025 9:02 AM EDT 05/30/2025 9:03 AM EDT Hugh Zamarripa MD POINT OF CARE TEST ORDER PEDRO LUIS Final Result [facility] [address] [place] [address] * (ABNORMAL) GLUCOSE METER POC (05/29/2025 9:25 PM EDT) Glucose Meter POC 214(H) 70 - 100 mg/dL 05/29/2025 9:26 PM EDT [facility] Sample Type Capillary 05/29/2025 9:26 PM EDT [facility] Patient Status Non-Critical Patient 05/29/2025 9:26 PM EDT [facility] Blood BLOOD SPECIMEN / Unknown 05/29/2025 9:25 PM EDT 05/29/2025 9:26 PM EDT Hugh Zamarripa MD POINT OF CARE TEST ORDER PEDRO LUIS Final Result [facility] [address] [place] [address] documented in this encounter Visit Diagnoses Diagnosis Fractured hip, left, closed, initial encounter (HCC)- Primary Resides in senior care facility 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 Pneumonia due to infectious organism, unspecified laterality, unspecified part of lung Closed fracture of left femur with routine healing, unspecified fracture morphology, unspecified portion of femur, subsequent encounter Type 2 diabetes mellitus without complication, without long-term current use of insulin ([facility]) Prophylactic measure Thrush Candidiasis of mouth Excoriation Other and unspecified superficial injury of other, multiple, and unspecified sites, without mention of infection Acute cystitis without hematuria Acute cystitis Other fatigue Hemorrhoids, unspecified hemorrhoid type Hypokalemia Hypopotassemia Elevated lactic acid level Other nonspecific abnormal serum enzyme levels Hypomagnesemia Disorders of magnesium metabolism Lactic acid blood increased Other nonspecific abnormal serum enzyme levels Type 2 diabetes mellitus without complication, without long-term current use of insulin (HCC) Essential hypertension Unspecified essential hypertension 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 Adrenal adenoma, left Left renal mass Unspecified disorder of kidney and ureter Left lower lobe pulmonary nodule Hypokalemia Hypopotassemia Hypomagnesemia Disorders of magnesium metabolism Shortness of breath documented in this encounter Admitting Diagnoses Diagnosis Fractured hip, left, closed, initial encounter ([facility]) documented in this encounter Administered Medications Inactive Administered Medications - up to 1 most recent administrations Medication Order MAR Action Action Date Dose Rate Site 0.9 % NaCl infusion Intravenous, at 75 mL/hr, CONTINUOUS, Starting on 06/10/25 at 1530, Until 06/11/25 at 0809, Dx: 1. Elevated lactic acid levelIndications:Elev ated lactic acid level New Bag 06/11/2025 12:33 AM EDT 75 mL/hr acetaminophen (TYLENOL) tablet 1,000 mg 1,000 mg, Oral, *EVERY 8 HOURS, First dose on Thu06/09/25 at 1930, Until Discontinued, Maximum adult dose of acetaminophen is 4000 mg from all sources in 24 hours., Dx: 1. Closed fracture of left femur with routine healing, unspecified fracture morphology, unspecified portion of femur, subsequent encounterIndications: Closed fracture of left femur with routine healing, unspecified fracture morphology, unspecified portion of femur, subsequent encounter Given 06/12/2025 6:01 AM EDT 1,000 mg acetaminophen (TYLENOL) tablet 1,000 mg 1,000 mg, Oral, ONCE, 1 dose, On 06/11/25 at 1800, Maximum adult dose of acetaminophen is 4000 mg from all sources in 24 hours., Dx: 1. Prophylactic measureIndications:Pr ophylactic measure Given 06/11/2025 6:10 PM EDT 1,000 mg acetaminophen (TYLENOL) tablet 650 mg 650 mg, Oral, EVERY 4 HOURS PRN, Starting on Thu05/29/25 at 1833, Until Thu06/09/25 at 1409, Pain, Fever, Temp greater than 101 F, Maximum adult dose of acetaminophen is 4000 mg from all sources in 24 hours., Dx: 1. Resides in senior care facilityIndications:R esides in senior care facility Given 06/09/2025 11:23 AM EDT 650 mg albuterol (PROVENTIL) nebulizer solution 2.5 mg 2.5 mg, Nebulization, PRN, Starting on Joana 06/01/25 at 2311, Until Thu06/12/25 at 1525, Wheezing, Shortness of Breath Given 06/08/2025 6:12 PM EDT 2.5 mg albuterol-ipratropium (DUO-NEB) 3 mg-0.5 mg(2.5 mg base)/3 mL nebulizer solution 3 mL 3 mL, Nebulization, 4 TIMES DAILY EVENLY DISTRIBUTED (RESP CARE) (4 times per day), First dose on Thu05/29/25 at 2100, Until Discontinued, Administered by Respiratory Therapy. Given 06/01/2025 8:11 PM EDT 3 mL albuterol-ipratropium (DUO-NEB) 3 mg-0.5 mg(2.5 mg base)/3 mL nebulizer solution 3 mL 3 mL, Nebulization, 4 TIMES DAILY (RESP CARE), First dose (after last modification) on Thu06/02/25 at 0800, Until Discontinued, Administered by Respiratory Therapy. Given 06/12/2025 8:09 AM EDT 3 mL aspirin chewable tablet 81 mg 81 mg, Oral, DAILY, First dose on Thu05/30/25 at 0900, Until Discontinued, Dx: 1. 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Indications:C oronary artery disease involving kobuk coronary artery of kob[place] heart without angina pectoris Given 06/12/2025 9:09 AM EDT 81 mg cholecalciferol (vitamin D3) tablet 1,000 Units 1,000 Units, Oral, DAILY, First dose on Thu05/30/25 at 0900, Until Discontinued, Dx: 1. Resides in senior care facilityIndications:R esides in senior care facility Given 06/12/2025 9:10 AM EDT 1,000 Units citalopram (CeleXA) tablet 5 mg 5 mg, Oral, 2 TIMES DAILY, First dose on Thu05/29/25 at 2115, Until Discontinued, Dx: 1. Resides in senior care facilityIndications:lila qiu depressive disorder Given 06/12/2025 9:10 AM EDT 5 mg clopidogreL (PLAVIX) tablet 75 mg 75 mg, Oral, DAILY, First dose on Thu05/30/25 at 0900, Until Discontinued, Dx: 1. 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Indications:C oronary artery disease involving kobuk coronary artery of kob[place] heart without angina pectoris Given 06/12/2025 9:09 AM EDT 75 mg cyanocobalamin injection 1,000 mcg 1,000 mcg, Intramuscular, DAILY, First dose on Thu06/08/25 at 1545, Until Discontinued, Dx: 1. Other fatigueIndications:Ot her fatigue Given 06/12/2025 9:08 AM EDT 1,000 mcg Left Deltoid dextrose 50 % solution 25 mL 25 mL, Intravenous, PRN, Starting on Thu05/30/25 at 1723, Until Thu06/12/25 at 1525, Low blood sugar, If FSBS less than 70 mg/dl and patient cannot take orally, Check FSBS every 15 minutes and repeat 25 mL of D50 IV push and notify physician if FSBS less than 70 mg/dL VESICANT , Insulin Calculator, Dx: 1. Type 2 diabetes mellitus without complication, without long-term current use of insulin (HCC)Indications:Type 2 diabetes mellitus without complication, without long-term current use of insulin ([facility]) enoxaparin (LOVENOX) injection 40 mg 40 mg, Subcutaneous, DAILY - LMWH/Xa, First dose on Thu05/30/25 at 0745, Until Discontinued, Dx: 1. Resides in senior care facilityIndications:R esides in senior care facility Given 05/31/2025 11:47 AM EDT 40 mg Abdominal Tissue fluocinonide (LIDEX) 0.05 % cream Topical, 2 TIMES DAILY PRN, Starting on Thu05/30/25 at 0607, Until Thu06/12/25 at 1525, Other, skin irritation, Application site: skin irritation, Dx: 1. Resides in senior care facilityIndications:R capri in senior care facility fosfomycin (MONUROL) packet 3 g 3 g, Oral, ONCE, 1 dose, On Thu06/08/25 at 1545, Dissolve contents of packet in 3-4 oz of water and administer immediately, Reason for Therapy: Infection Suspected, Indication: Urinary Tract Infection, Dx: 1. Acute cystitis without hematuriaIndications: Acute cystitis without hematuria Given 06/08/2025 3:46 PM EDT 3 g glucagon (GLUCAGEN) injection 1 mg 1 mg, Intramuscular, PRN, Starting on Thu05/30/25 at 1723, Until Thu06/12/25 at 1525, Low blood sugar, If FSBS less than 70 mg/dl, patient cannot take orally and without IV access, If patient is without IV access, give Glucagon 1 mg Intramuscularly, insert IV and call physician., Insulin Calculator, Dx: 1. Type 2 diabetes mellitus without complication, without long-term current use of insulin (HCC)Indications:Type 2 diabetes mellitus without complication, without long-term current use of insulin (HCC) GLUCERNA Therapeutic oral supplement 1 'box' 1 'box', Oral, 3 TIMES DAILY WITH MEALS (NUTR), First dose on Thu06/01/25 at 1800, Until Discontinued, STRAWBERRY Administer orally. Do not administer if NPO or on clear liquid diet. Not for IV use. Supplied by Nutrition ServicesIndications:R capri in senior care facility,Closed fracture of left femur with routine healing, unspecified fracture morphology, unspecified portion of femur, subsequent encounter,Type 2 diabetes mellitus without complication, without long-term current use of insulin (HCC) Given 06/12/2025 9:12 AM EDT 1 'box' HYDROcodone-acetamino phen (NORCO) 5-325 mg per tablet 1 Tablet 1 Tablet, Oral, EVERY 6 HOURS PRN, Starting on Thu05/30/25 at 0620, Until Thu06/12/25 at 1525, Pain Unrelieved by Oral Non-Opioid Therapy, Maximum adult dose of acetaminophen is 4000 mg from all sources in 24 hours., Dx: 1. Closed fracture of left femur with routine healing, unspecified fracture morphology, unspecified portion of femur, subsequent encounterIndications: Closed fracture of left femur with routine healing, unspecified fracture morphology, unspecified portion of femur, subsequent encounter Given 06/11/2025 8:43 PM EDT 1 Tablet insulin aspart U-100 (NovoLOG) injection 0-40 Units 0-40 Units, Subcutaneous, 4 TIMES DAILY AT MEALTIME AND BEDTIME, First dose on 05/30/25 at 1800, Until Discontinued, PO Diet: Obtain FSBS before patient begins eating. Administer this dose, which only provides correctional insulin, immediately after FSBS. If patient is NPO or declines meal tray, continue with calculated correction insulin dose. Tube Feeds and TPN: Obtain FSBS and administer this dose, which only provides correctional insulin, immediately after FSBS. Notify physician if FSBS less than 50 or greater than 350. Correction insulin doses must be by at least 3 hours. Waste Sort Code = BLACK [employer]ous Waste Container, Blood Glucose Target - Daytime (mg/dL): 140, Blood Glucose Target - Nighttime (mg/dL): 180, Hyperglycemia Correction Factor: 25, Insulin Calculator, Dx: 1. Type 2 diabetes mellitus without complication, without long-term current use of insulin (HCC)Indications:Type 2 diabetes mellitus without complication, without long-term current use of insulin (HCC) Given 06/04/2025 12:55 PM EDT 2 Units Left Arm insulin aspart U-100 (NovoLOG) injection 0-40 Units 0-40 Units, Subcutaneous, 4 TIMES DAILY AT MEALTIME AND BEDTIME, First dose (after last modification) on Thu06/04/25 at 1800, Until Discontinued, PO Diet: Obtain FSBS before patient begins eating. Administer this dose, which only provides correctional insulin, immediately after FSBS. If patient is NPO or declines meal tray, continue with calculated correction insulin dose. Tube Feeds and TPN: Obtain FSBS and administer this dose, which only provides correctional insulin, immediately after FSBS. Notify physician if FSBS less than 50 or greater than 350. Correction insulin doses must be by at least 3 hours. Waste Sort Code = BLACK RCRA Hazardous Waste Container, Blood Glucose Target - Daytime (mg/dL): 140, Blood Glucose Target - Nighttime (mg/dL): 180, Hyperglycemia Correction Factor: 17.5, Insulin Calculator, Dx: 1. Type 2 diabetes mellitus without complication, without long-term current use of insulin (HCC)Indications:Type 2 diabetes mellitus without complication, without long-term current use of insulin (HCC) Given 06/09/2025 12:10 PM EDT 1 Units Left Arm Insulin Calculator - FSBS (Correction Only) Input MISCELLANEOUS, 4 TIMES DAILY AT MEALTIME AND BEDTIME, First dose (after last modification) on Thu06/04/25 at 1800, Until Discontinued, Blood Glucose Target - Daytime (mg/dL): 140, Blood Glucose Target - Nighttime (mg/dL): 180, Hyperglycemia Correction Factor: 17.5, Insulin Calculator, Dx: 1. Type 2 diabetes mellitus without complication, without long-term current use of insulin (HCC)Indications:Type 2 diabetes mellitus without complication, without long-term current use of insulin (HCC) insulin glargine U-100 (LANTUS) injection 10 Units 10 Units, Subcutaneous, EVERY EVENING (INSULIN), First dose on Thu06/01/25 at 1900, Until Discontinued, A blood sugar is not required prior to administering the Lantus dose. Assess the trend of blood sugars within the last 24 hours. If 2 out of 3 blood sugars are less than (<) 120, contact pharmacy to decrease the total Lantus dose by 20%. Waste Sort Code = BK, Dx: 1. Type 2 diabetes mellitus without complication, without long-term current use of insulin (HCC)Indications:Type 2 diabetes mellitus without complication, without long-term current use of insulin (HCC) Given 06/11/2025 6:11 PM EDT 10 Units Left Arm iopamidoL (ISOVUE-370) 370 mg iodine /mL (76 %) injection (LOW) 100 mL 100 mL, Intravenous, ONCE PRN, 1 dose, Starting on Thu05/30/25 at 1241, Until Thu05/30/25 at 1336, Radiography/Imaging, Radiology Procedure, VESICANT , CT (Contrasts) Given 05/30/2025 1:36 PM EDT 100 mL Left Arm PRABHAKAR powder oral supplement 1 Packet 1 Packet, Oral, 2 TIMES DAILY WITH MEALS (NUTR), First dose on Thu06/01/25 at 1800, Until Discontinued, ORANGE Mix 1 packet with 8-10 oz of juice or water. Administer orally. Not for IV use. Supplied by Nutrition ServicesIndications:Gillian farooq in senior care facility,Closed fracture of left femur with routine healing, unspecified fracture morphology, unspecified portion of femur, subsequent encounter Given 06/12/2025 9:12 AM EDT 1 Packet levoFLOXacin (LEVAQUIN) tablet 750 mg 750 mg, Oral, EVERY OTHER DAY, 2 doses, First dose on Thu05/31/25 at 0900, Last dose on Thu06/02/25 at 0900, Take without food. Hold tube feeding 1 hour before/after administration. Do not take with milk, yogurt, or other dairy products. Take at least 2 hours before or 2 hours after antacids., Reason for Therapy: Infection Suspected, Indication: Pneumonia, Dx: 1. Pneumonia due to infectious organism, unspecified laterality, unspecified part of lungIndications:bacte rial pneumonia Given 06/02/2025 8:46 AM EDT 750 mg losartan (COZAAR) tablet 100 mg 100 mg, Oral, DAILY, First dose on Thu05/30/25 at 0900, Until Discontinued, Therapeutic Interchange for Irbesartan (AVAPRO) 300mg tab , Dx: 1. 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Indications:C oronary artery disease involving kob[place] coronary artery of kob[place] heart without angina pectoris Given 06/12/2025 9:07 AM EDT 100 mg magnesium oxide (MAG-OX) tablet 400 mg 400 mg, Oral, 2 TIMES DAILY, First dose on Thu06/11/25 at 0900, Until Discontinued, Dx: 1. HypomagnesemiaIndicat ions:Hypomagnesemia Given 06/12/2025 9:10 AM EDT 400 mg magnesium sulfate in dextrose 5% infusion 1 g 1 g, Intravenous, at 100 mL/hr, EVERY HOUR SCHEDULED, 1 dose, First dose on 06/10/25 at 1600, Infuse 2 x Magnesium Sulfate 1 g IVPB for a total dose of 2 g Magnesium Sulfate, Dx: 1. Hypokalemia 2. HypomagnesemiaIndicat ions:Hypokalemia,Hypo magnesemia IV Started 06/10/2025 5:46 PM EDT 1 g 100 mL/hr magnesium sulfate in dextrose 5% infusion 1 g 1 g, Intravenous, at 100 mL/hr, EVERY HOUR SCHEDULED, 1 dose, First dose on 06/10/25 at 1700, Infuse 2 x Magnesium Sulfate 1 g IVPB for a total dose of 2 g Magnesium Sulfate, Dx: 1. HypomagnesemiaIndicat ions:Hypomagnesemia IV Started 06/10/2025 6:49 PM EDT 1 g 100 mL/hr melatonin tablet 5 mg 5 mg, Oral, NIGHTLY PRN, Starting on Thu05/29/25 at 1833, Until Thu06/12/25 at 1525, Sleep, Dx: 1. Resides in senior care facilityIndications:R esides in senior care facility Given 06/10/2025 9:52 PM EDT 5 mg metFORMIN (GLUCOPHAGE XR) ER tablet 500 mg 500 mg, Oral, 2 TIMES DAILY WITH MEALS, First dose on Thu05/30/25 at 0800, Until Discontinued, Take with food., Dx: 1. Resides in senior care facilityIndications:t ype 2 diabetes mellitus Given 06/12/2025 9:10 AM EDT 500 mg metoprolol (LOPRESSOR) tablet 25 mg 25 mg, Oral, 2 TIMES DAILY, First dose on Thu05/29/25 at 2115, Until Discontinued, Preferably taken with or immediately following meals. Take consistently with relation to food., Dx: 1. Resides in senior care facilityIndications:h ypertension Given 06/12/2025 9:08 AM EDT 25 mg miconazole (MICATIN) 2 % powder Topical, 2 TIMES DAILY, 84 doses, First dose on Thu06/08/25 at 1045, Last dose on Thu07/19/25 at 2100, Application site: Periarea, Dx: 1. ExcoriationIndication s:Excoriation Given 06/12/2025 9:17 AM EDT nystatin (MYCOSTATIN) 100,000 unit/mL suspension 500,000 Units 500,000 Units, Oral, 4 TIMES DAILY, 56 doses, First dose on Thu06/02/25 at 1030, Last dose on Thu06/15/25 at 2100, Swish and swallow., Reason for Therapy: Infection Documented, Indication: Other, Reason: thrush, Dx: 1. ThrushIndications:Thr ush Given 06/12/2025 9:18 AM EDT 500,000 Units ondansetron (ZOFRAN) injection 4 mg 4 mg, Intravenous, EVERY 6 HOURS PRN, Starting on Thu05/31/25 at 1259, Until Thu06/12/25 at 1525, Nausea, Dx: 1. Prophylactic measureIndications:Pr ophylactic measure ondansetron (ZOFRAN-ODT) disintegrating tablet 4 mg 4 mg, Oral, EVERY 6 HOURS PRN, Starting on Thu05/31/25 at 1259, Until Thu06/12/25 at 1525, Nausea, Dissolve in mouth, Dx: 1. Prophylactic measureIndications:Pr ophylactic measure Given 06/11/2025 2:16 PM EDT 4 mg pantoprazole (PROTONIX) tablet 40 mg 40 mg, Oral, DAILY, First dose on Thu05/29/25 at 2200, Until Discontinued, Do not crush or chew, Dx: 1. Resides in senior care facilityIndications:h eartburn Given 06/11/2025 8:43 PM EDT 40 mg petrolatum-zinc oxide (TRIAD) topical paste Topical, PRN, Starting on Thu06/07/25 at 0930, Until Thu06/12/25 at 1525, Diaper Rash petrolatum-zinc oxide (TRIAD) topical paste Topical, DAILY, First dose on Thu06/07/25 at 0945, Until Discontinued Given 06/12/2025 9:18 AM EDT polyethylene glycol (GLYCOLAX, MIRALAX) packet 17 g 17 g, Oral, DAILY PRN, Starting on Thu05/29/25 at 1833, Until Thu06/12/25 at 1525, Constipation, For constipation unrelieved by Senokot-S, Dx: 1. Resides in senior care facilityIndications:R esides in senior care facility potassium chloride (KLOR-CON) tablet 20 mEq 20 mEq, Oral, ONCE, 1 dose, On Thu06/06/25 at 2300, Dx: 1. Type 2 diabetes mellitus without complication, without long-term current use of insulin (HCC)Indications:Type 2 diabetes mellitus without complication, without long-term current use of insulin (HCC) Given 06/06/2025 11:31 PM EDT 20 mEq potassium chloride (KLOR-CON) tablet 40 mEq 40 mEq, Oral, 2 TIMES DAILY WITH MEALS, 2 doses, First dose on 06/10/25 at 1800, Last dose on 06/11/25 at 0800, Dx: 1. HypokalemiaIndication s:Hypokalemia Given 06/10/2025 5:59 PM EDT 40 mEq rosuvastatin (CRESTOR) tablet 5 mg 5 mg, Oral, NIGHTLY, First dose on Thu05/29/25 at 2115, Until Discontinued, Dx: 1. Resides in senior care facilityIndications:R esides in senior care facility Given 06/11/2025 8:43 PM EDT 5 mg Saccharomyces boulardii (FLORASTOR) capsule 250 mg 250 mg, Oral, 2 TIMES DAILY, First dose on Thu05/30/25 at 0900, Until Discontinued, If for feeding tube administration, open capsule/packet outside of patient's room and dissolve contents in 8-12 oz. of liquid, Dx: 1. Resides in senior care facilityIndications:R esides in senior care facility Given 06/12/2025 9:10 AM EDT 250 mg senna-docusate (SENOKOT-S) 8.6-50 mg per tablet 2 Tablet 2 Tablet, Oral, 2 TIMES DAILY PRN, Starting on Thu05/29/25 at 1833, Until Thu06/12/25 at 1525, Constipation, Use first for constipation, Dx: 1. Resides in senior care facilityIndications:R esides in senior care facility sodium chloride 0.9 % 250 mL IV bolus Intravenous, ONCE, 1 dose, On 06/10/25 at 2145, at 483.9 mL/hr, Dx: 1. Lactic acid blood increasedIndications: Lactic acid blood increased IV Restarted 06/10/2025 10:18 PM EDT 483.9 mL/hr sodium chloride 0.9% syringe Intravenous, ONCE PRN, 1 dose, Starting on Thu05/30/25 at 1241, Until Thu05/30/25 at 1336, Line Care, Flush peripheral lines every 12 hours, central lines every 8 hours, and after IV medication, CT (Contrasts) Given 05/30/2025 1:36 PM EDT 20 mL Left Arm sterile water injection 1 mL 1 mL, Injection, PRN, Starting on Thu05/30/25 at 1723, Until Thu06/12/25 at 1525, Use for drug dilution, Use to dilute and administer glucagon injection, Insulin Calculator, Dx: 1. Type 2 diabetes mellitus without complication, without long-term current use of insulin (HCC)Indications:Type 2 diabetes mellitus without complication, without long-term current use of insulin (HCC) documented in this encounter Discontinued Medications Medication Sig Discontinue Reason Start Date End Da te amLODIPine-valsartan (EXFORGE) 10-320 mg Oral Tablet Take 1 Tablet by mouth daily. Alternate therapy 05/30/2025 trimethoprim (TRIMPEX) 100 mg Oral TabletIndications:pre vention of bacterial urinary tract infection Take 1 Tablet by mouth daily. Indications: urinary tract infection prevention Availability 05/30/2025 metoprolol (LOPRESSOR) 100 mg Oral Tablet Take 100 mg by mouth 2 times daily. Cancelled by 05/30/2025 omeprazole (PRILOSEC) 40 mg Oral Capsule, Delayed Release(E.C.) Take 40 mg by mouth daily. Cancelled by 05/30/2025 glyBURIDE (DIABETA) 5 mg Oral Tablet Take 5 mg by mouth 4 times daily. Cancelled by 05/30/2025 cyanocobalamin 1,000 mcg/mL Inj SolutionIndications:O ther fatigue Inject 1 mL into the muscle daily. 06/12/2025 06/12/2025 metFORMIN (GLUCOPHAGE XR) 500 mg Oral ER 24 hr tablet Take 1,000 mg by mouth 2 times daily (with meals). Stop Taking at Discharge 06/12/2025 levoFLOXacin (LEVAQUIN) 750 mg Oral TabletIndications:jany terial pneumonia Take 750 mg by mouth every other day. Take every 48 hours Indications: pneumonia caused by bacteria Stop Taking at Discharge 06/12/2025 documented as of this encounter Historical Medications * This list may reflect changes made after this encounter. citalopram (CELEXA) 10 mg Oral TabletIndications :major depressive disorder Take 5 mg by mouth 2 times daily. Indications: major depressive disorder pantoprazole (PROTONIX) 40 mg Oral Tablet, Delayed Release (E.C.)Indications :heartburn Take 40 mg by mouth daily. Indications: heartburn metoprolol (LOPRESSOR) 25 mg Oral TabletIndications :hypertension Take 25 mg by mouth 2 times daily. Indications: high blood pressure irbesartan (AVAPRO) 300 mg Oral Tablet Take 300 mg by mouth daily. albuterol-ipratro pium (DUO-NEB) 3 mg-0.5 mg(2.5 mg base)/3 mL Inhl Solution for Nebulization Take 3 mL by nebulization every 6 hours. HYDROcodone-aceta minophen (NORCO) 5-325 mg Oral Tablet Take 1 Tablet by mouth every 4 hours as needed for Acute Pain (R52). clopidogreL (PLAVIX) 75 mg Oral Tablet Take 75 mg by mouth daily. albuterol sulfate (VENTOLIN INHL) Inhale 4 Puffs into the lungs daily. cholecalciferol, vitamin D3, 25 mcg (1,000 unit) Oral Tablet Take 1,000 Units by mouth daily. aspirin 81 mg Oral Tablet, Chewable Take 81 mg by mouth daily. rosuvastatin (CRESTOR) 5 mg Oral Tablet Take 5 mg by mouth nightly. levoFLOXacin (LEVAQUIN) 750 mg Oral TabletIndications :bacterial pneumonia Take 750 mg by mouth every other day. Take every 48 hours Indications: pneumonia caused by bacteria metFORMIN (GLUCOPHAGE XR) 500 mg Oral ER 24 hr tablet Take 1,000 mg by mouth 2 times daily (with meals). 5 glyBURIDE (DIABETA) 5 mg Oral Tablet Take 5 mg by mouth 4 times daily. 5 omeprazole (PRILOSEC) 40 mg Oral Capsule, Delayed Release(E.C.) Take 40 mg by mouth daily. 5 metoprolol (LOPRESSOR) 100 mg Oral Tablet Take 100 mg by mouth 2 times daily. 5 trimethoprim (TRIMPEX) 100 mg Oral TabletIndications :prevention of bacterial urinary tract infection Take 1 Tablet by mouth daily. Indications: urinary tract infection prevention 5 amLODIPine-valsar rodas (EXFORGE) 10-320 mg Oral Tablet Take 1 Tablet by mouth daily. 5 added in this encounter Active and Recently Administered Medications Times are shown in EDT. Scheduled Medication Order 06/10/2025 06/11/2025 06/12/2025 acetaminophen (TYLENOL) tablet 1,000 mg 1,000 mg, Oral, *EVERY 8 HOURS, First dose on Thu06/09/25 at 1930, Until Discontinued, Maximum adult dose of acetaminophen is 4000 mg from all sources in 24 hours., Dx: 1. Closed fracture of left femur with routine healing, unspecified fracture morphology, unspecified portion of femur, subsequent encounter 032 (Given - Provider: Beau Rm RN)1246 (Given - Provider: Janet Porras RN)215 (Given - Provider: Stephany Lopez LPN) 0626 (Given - Provider: Stephany Lopez LPN)1416 (Not Given - Provider: Janet Porras RN - Reason: Patient Declined)2200 (Not Given - Provider: Stephany Lopez LPN - Reason: Other - Comment: PRN dose of [place] given prior) 06 (Given - Provider: Stephany Lopez LPN) acetaminophen (TYLENOL) tablet 1,000 mg (COMPLETED) 1,000 mg, Oral, ONCE, 1 dose, On Thu06/11/25 at 1800, Maximum adult dose of acetaminophen is 4000 mg from all sources in 24 hours., Dx: 1. Prophylactic measure 1809 (Given - Provider: Janet Porras RN) albuterol-ipratropium (DUO-NEB) 3 mg-0.5 mg(2.5 mg base)/3 mL nebulizer solution 3 mL(Linked Group 1) 3 mL, Nebulization, 4 TIMES DAILY (RESP CARE), First dose (after last modification) on Thu06/02/25 at 0800, Until Discontinued, Administered by Respiratory Therapy. 0822 (Not Given - Provider: Clarisa Strong CRT - Reason: Patient not available)0835 (Not Given - Provider: Clarisa Strong CRT - Reason: Patient not available)0851 (Given - Provider: Clarisa Strong, LPN PER DIEM)1104 (Given - Provider: Clarisa Strong LPN PER DIEM - Comment: Pt. requested tx)1601 (Given - Provider: Clarisa Strong CRT)2006 (Given - Provider: Kristian Arce CRT) 0900 (Given - Provider: Clarisa Strong LPN PER DIEM)1236 (Not Given - Provider: Clarisa Strong LPN PER DIEM - Reason: Patient not available - Comment: eating)1252 (Not Given - Provider: Clarisa Scheid-Lassiter, LPN PER DIEM - Reason: Patient Declined - Comment: confused, strongly refused tx.)1637 (Given - Provider: Clarisa Strong, LPN PER DIEM)2052 (Given - Provider: Kristian Arce, LPN PER DIEM) 08 (Given - Provider: Chery Benites) aspirin chewable tablet 81 mg 81 mg, Oral, DAILY, First dose on Thu05/30/25 at 0900, Until Discontinued, Dx: 1. 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 08 (Given - Provider: Janet Porras RN) 932 (Given - Provider: Janet Porras RN) 09 (Given - Provider: Riki Khan, RN) cholecalciferol (vitamin D3) tablet 1,000 Units 1,000 Units, Oral, DAILY, First dose on Thu05/30/25 at 0900, Until Discontinued, Dx: 1. Resides in senior care facility 08 (Given - Provider: Janet Porras RN) 932 (Given - Provider: Janet Porras RN) 09 (Given - Provider: Riki Kahn, RN) citalopram (CeleXA) tablet 5 mg 5 mg, Oral, 2 TIMES DAILY, First dose on Thu05/29/25 at 2115, Until Discontinued, Dx: 1. Resides in senior care facility 0822 (Given - Provider: Janet Porras RN)2151 (Given - Provider: Stephany Lopez LPN) 932 (Given - Provider: Janet Porras RN)2043 (Given - Provider: Stephany Lopez LPN) 0910 (Given - Provider: Riki Khan, RN) clopidogreL (PLAVIX) tablet 75 mg 75 mg, Oral, DAILY, First dose on Thu05/30/25 at 0900, Until Discontinued, Dx: 1. 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 08 (Given - Provider: Janet Porras RN) 932 (Given - Provider: Jnaet Porras RN) 0909 (Given - Provider: Riki Khan, RN) cyanocobalamin injection 1,000 mcg 1,000 mcg, Intramuscular, DAILY, First dose on 06/08/25 at 1545, Until Discontinued, Dx: 1. Other fatigue 0900 (Given - Provider: Janet Porras RN) 0942 (Given - Provider: Janet Porras RN) 0908 (Given - Provider: Riki Khan, SANTOS) GLUCERNA Therapeutic oral supplement 1 'box' 1 'box', Oral, 3 TIMES DAILY WITH MEALS (NUTR), First dose on Joana 06/01/25 at 1800, Until Discontinued, STRAWBERRY Administer orally. Do not administer if NPO or on clear liquid diet. Not for IV use. Supplied by Nutrition Services 0900 (Not Given - Provider: Janet Porras RN - Reason: Patient Declined)1300 (Not Given - Provider: Janet Porras RN - Reason: Patient Declined)1800 (Not Given - Provider: Janet Porras RN - Reason: Patient Declined) 0900 (Not Given - Provider: Janet Porras RN - Reason: Patient Declined)1300 (Not Given - Provider: Janet Porras RN - Reason: Patient Declined)1800 (Not Given - Provider: Janet Porras RN - Reason: Patient Declined) 0912 (Given - Provider: Riki Khan, SANTOS) insulin aspart U-100 (NovoLOG) injection 0-40 Units(Linked Group 2) 0-40 Units, Subcutaneous, 4 TIMES DAILY AT MEALTIME AND BEDTIME, First dose (after last modification) on Thu06/04/25 at 1800, Until Discontinued, PO Diet: Obtain FSBS before patient begins eating. Administer this dose, which only provides correctional insulin, immediately after FSBS. If patient is NPO or declines meal tray, continue with calculated correction insulin dose. Tube Feeds and TPN: Obtain FSBS and administer this dose, which only provides correctional insulin, immediately after FSBS. Notify physician if FSBS less than 50 or greater than 350. Correction insulin doses must be by at least 3 hours. Waste Sort Code = [employer] Waste Container, Blood Glucose Target - Daytime (mg/dL): 140, Blood Glucose Target - Nighttime (mg/dL): 180, Hyperglycemia Correction Factor: 17.5, Insulin Calculator, Dx: 1. Type 2 diabetes mellitus without complication, without long-term current use of insulin (HCC) 0800 (Not Given - Provider: Janet Porras RN - Reason: Order parameters not met)1200 (Not Given - Provider: Janet Porras RN - Reason: Order parameters not met)1800 (Not Given - Provider: Janet Porras RN - Reason: Order parameters not met)2100 (Not Given - Provider: Stephany Lopez LPN - Reason: Patient Declined) 0930 (Not Given - Provider: Janet Porras RN - Reason: Order parameters not met)1200 (Not Given - Provider: Janet Porras RN - Reason: Order parameters not met)1800 (Not Given - Provider: Janet Porras RN - Reason: Order parameters not met)2100 (Not Given - Provider: Stephany Lopez LPN - Reason: Contraindicated) 0800 (Not Given - Provider: Riki Khan RN - Reason: Order parameters not met) Insulin Calculator - FSBS (Correction Only) Input(Linked Group 2) MISCELLANEOUS, 4 TIMES DAILY AT MEALTIME AND BEDTIME, First dose (after last modification) on 06/04/25 at 1800, Until Discontinued, Blood Glucose Target - Daytime (mg/dL): 140, Blood Glucose Target - Nighttime (mg/dL): 180, Hyperglycemia Correction Factor: 17.5, Insulin Calculator, Dx: 1. Type 2 diabetes mellitus without complication, without long-term current use of insulin (HCC) 0800 (Non- Med Documentation - Provider: Janet Porras RN)1200 (Non- Med Documentation - Provider: Janet Porras RN)1800 (Non- Med Documentation - Provider: Janet Porras RN)2100 (Not Given - Provider: Stephany Lopez LPN - Reason: Patient Declined) 0800 (Non- Med Documentation - Provider: Janet Porras RN)1200 (Non- Med Documentation - Provider: Janet Porras RN)1800 (Non- Med Documentation - Provider: Janet Porras RN)2100 (Hold - Provider: Stephany Lopez LPN - Reason: Contraindicated) 0800 (Not Given - Provider: Riki Khan RN - Reason: Order parameters not met) insulin glargine U-100 (LANTUS) injection 10 Units 10 Units, Subcutaneous, EVERY EVENING (INSULIN), First dose on Thu06/01/25 at 1900, Until Discontinued, A blood sugar is not required prior to administering the Lantus dose. Assess the trend of blood sugars within the last 24 hours. If 2 out of 3 blood sugars are less than (<) 120, contact pharmacy to decrease the total Lantus dose by 20%. Waste Sort Code = [facility], Dx: 1. Type 2 diabetes mellitus without complication, without long-term current use of insulin (HCC) 1800 (Given - Provider: Janet Porras RN) 181 (Given - Provider: Janet Porras RN) PRABHAKAR powder oral supplement 1 Packet 1 Packet, Oral, 2 TIMES DAILY WITH MEALS (NUTR), First dose on Thu06/01/25 at 1800, Until Discontinued, ORANGE Mix 1 packet with 8-10 oz of juice or water. Administer orally. Not for IV use. Supplied by Nutrition Services 0900 (Not Given - Provider: Janet Porras RN - Reason: Patient Declined)1800 (Not Given - Provider: Janet Porras RN - Reason: Patient Declined) 0900 (Not Given - Provider: Janet Porras RN - Reason: Patient Declined)1800 (Not Given - Provider: Janet Porras RN - Reason: Patient Declined) 09 (Given - Provider: Riki Khan RN) losartan (COZAAR) tablet 100 mg 100 mg, Oral, DAILY, First dose on Thu05/30/25 at 0900, Until Discontinued, Therapeutic Interchange for Irbesartan (AVAPRO) 300mg tab , Dx: 1. 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 08 (Given - Provider: Janet Porras RN) 09 (Given - Provider: Janet Porras RN) 906 (Given - Provider: Riki Khan, SANTOS) magnesium oxide (MAG-OX) tablet 400 mg 400 mg, Oral, 2 TIMES DAILY, First dose on Thu06/11/25 at 0900, Until Discontinued, Dx: 1. Hypomagnesemia 932 (Given - Provider: Janet Porras RN)2042 (Given - Provider: Stephany Lopez LPN) 909 (Given - Provider: Riki Khan, SANTOS) magnesium sulfate in dextrose 5% infusion 1 g (COMPLETED)(Linked Group 3) 1 g, Intravenous, at 100 mL/hr, EVERY HOUR SCHEDULED, 1 dose, First dose on Thu06/10/25 at 1600, Infuse 2 x Magnesium Sulfate 1 g IVPB for a total dose of 2 g Magnesium Sulfate, Dx: 1. Hypokalemia 2. Hypomagnesemia 174 (IV Started - Provider: Janet Porras RN)1843 (Stopped - Provider: Stephany Lopez LPN)1845 (Stopped - Provider: Janet Porras RN) magnesium sulfate in dextrose 5% infusion 1 g (COMPLETED)(Linked Group 3) 1 g, Intravenous, at 100 mL/hr, EVERY HOUR SCHEDULED, 1 dose, First dose on Thu06/10/25 at 1700, Infuse 2 x Magnesium Sulfate 1 g IVPB for a total dose of 2 g Magnesium Sulfate, Dx: 1. Hypomagnesemia 1848 (IV Started - Provider: Janet Porras RN)1943 (Stopped - Provider: Stephany Lopez LPN)1944 (Stopped - Provider: Stephany Lopez LPN)1945 (Stopped - Provider: Janet Porras RN) metFORMIN (GLUCOPHAGE XR) ER tablet 500 mg 500 mg, Oral, 2 TIMES DAILY WITH MEALS, First dose on Thu05/30/25 at 0800, Until Discontinued, Take with food., Dx: 1. Resides in senior care facility 08 (Given - Provider: Janet Porras RN)1754 (Given - Provider: Janet Porras RN) 932 (Given - Provider: Janet Porras RN)1756 (Given - Provider: Janet Porras RN) 909 (Given - Provider: Riki Khan, SANTOS) metoprolol (LOPRESSOR) tablet 25 mg 25 mg, Oral, 2 TIMES DAILY, First dose on Thu05/29/25 at 2115, Until Discontinued, Preferably taken with or immediately following meals. Take consistently with relation to food., Dx: 1. Resides in senior care facility 08 (Given - Provider: Janet Porras RN)2151 (Given - Provider: Stephany Lopez LPN) 09 (Given - Provider: Janet Porras RN)2043 (Given - Provider: Stephany Lopez LPN) 09 (Given - Provider: Riki Khan RN) miconazole (MICATIN) 2 % powder Topical, 2 TIMES DAILY, 84 doses, First dose on Thu06/08/25 at 1045, Last dose on Thu07/19/25 at 2100, Application site: [facility], Dx: 1. Excoriation 0836 (Given - Provider: Janet Porras RN) 30 (Given - Provider: Stephany Lopze LPN)0935 (Given - Provider: Janet Porras RN)2051 (Given - Provider: Stephany Lopez LPN) 09 (Given - Provider: Riki Khan RN) nystatin (MYCOSTATIN) 100,000 unit/mL suspension 500,000 Units 500,000 Units, Oral, 4 TIMES DAILY, 56 doses, First dose on Thu06/02/25 at 1030, Last dose on Thu06/15/25 at 2100, Swish and swallow., Reason for Therapy: Infection Documented, Indication: Other, Reason: thrush, Dx: 1. Thrush 0831 (Given - Provider: Janet Porras RN)1300 (Not Given - Provider: Janet Porras RN - Reason: Patient Declined)1700 (Not Given - Provider: Janet Porras RN - Reason: Patient Declined)2099 (Given - Provider: Stephany Lopez LPN) 0941 (Given - Provider: Janet Porras RN)1300 (Not Given - Provider: Janet Porras RN - Reason: Patient Declined)1700 (Not Given - Provider: Janet Porras RN - Reason: Patient Declined)2041 (Given - Provider: Stephany Lopez LPN) 917 (Given - Provider: Riki Khan, SANTOS) pantoprazole (PROTONIX) tablet 40 mg 40 mg, Oral, DAILY, First dose on Thu05/29/25 at 2200, Until Discontinued, Do not crush or chew, Dx: 1. Resides in senior care facility 2151 (Given - Provider: Stephany Lopez LPN) 2042 (Given - Provider: Stephany Lopez LPN) petrolatum-zinc oxide (TRIAD) topical paste Topical, DAILY, First dose on Thu06/07/25 at 0945, Until Discontinued 0835 (Given - Provider: Janet Porras, SANTOS) 930 (Given - Provider: Janet Porras RN) 917 (Given - Provider: Riki Khan, RN) potassium chloride (KLOR-CON) tablet 40 mEq () 40 mEq, Oral, 2 TIMES DAILY WITH MEALS, 2 doses, First dose on 06/10/25 at 1800, Last dose on 06/11/25 at 0800, Dx: 1. Hypokalemia 1759 (Given - Provider: Janet Porras, SANTOS) 1200 (Not Given - Provider: Janet Porrsa RN - Reason: Patient Declined) rosuvastatin (CRESTOR) tablet 5 mg 5 mg, Oral, NIGHTLY, First dose on Thu05/29/25 at 2115, Until Discontinued, Dx: 1. Resides in senior care facility 2151 (Given - Provider: Stephany Lopez LPN) 2042 (Given - Provider: Stephany Lopez LPN) Saccharomyces boulardii (FLORASTOR) capsule 250 mg 250 mg, Oral, 2 TIMES DAILY, First dose on Thu05/30/25 at 0900, Until Discontinued, If for feeding tube administration, open capsule/packet outside of patient's room and dissolve contents in 8-12 oz. of liquid, Dx: 1. Resides in senior care facility 0820 (Given - Provider: Janet Porras RN)2151 (Given - Provider: Stephany Lopez LPN) 932 (Given - Provider: Janet Porras RN)2044 (Given - Provider: Stephany Lopez LPN) 0910 (Given - Provider: Riki Khan RN) sodium chloride 0.9 % 250 mL IV bolus (COMPLETED) Intravenous, ONCE, 1 dose, On 06/10/25 at 2145, at 483.9 mL/hr, Dx: 1. Lactic acid blood increased 2215 (IV Started - Provider: Larissa Ruff RN)2215 (IV Paused - Provider: Larissa Ruff RN)2215 (IV Paused - Provider: Larissa Ruff RN)2215 (IV Paused - Provider: Larissa Ruff RN)2218 (IV Restarted - Provider: Larissa Ruff RN)2246 (Stopped - Provider: Stephany Lopez LPN) Continuous Medication Order 06/10/2025 06/11/2025 06/12/2025 0.9 % NaCl infusion (CANCELED) Intravenous, at 75 mL/hr, CONTINUOUS, Starting on 06/10/25 at 1530, Until 06/11/25 at 0809, Dx: 1. Elevated lactic acid level 1742 (New Bag - Provider: Janet Porras RN)2036 (Rate/Dose Verify - Provider: Stephany Lopez LPN)2217 (IV Paused - Provider: Larissa Ruff RN)2250 (IV Restarted - Provider: Larissa Ruff RN)2251 (Rate/Dose Verify - Provider: Larissa Ruff RN)2253 (Rate/Dose Verify - Provider: Larissa Ruff RN) 0025 (Rate/Dose Change - Provider: Stephany Lopez LPN)0033 (New Bag - Provider: Stephany Lopez LPN)0814 (Stopped - Provider: Janet Porras RN - Comment: [Order ends at this time. Document the following action when infusion is complete: Stopped]) PRN Medication Order 06/10/2025 06/11/2025 06/12/2025 albuterol (PROVENTIL) nebulizer solution 2.5 mg(Linked Group 1) 2.5 mg, Nebulization, PRN, Starting on Thu06/01/25 at 2311, Until Thu06/12/25 at 1525, Wheezing, Shortness of Breath dextrose 50 % solution 25 mL 25 mL, Intravenous, PRN, Starting on Thu05/30/25 at 1723, Until Thu06/12/25 at 1525, Low blood sugar, If FSBS less than 70 mg/dl and patient cannot take orally, Check FSBS every 15 minutes and repeat 25 mL of D50 IV push and notify physician if FSBS less than 70 mg/dL VESICANT , Insulin Calculator, Dx: 1. Type 2 diabetes mellitus without complication, without long-term current use of insulin ([facility]) fluocinonide (LIDEX) 0.05 % cream Topical, 2 TIMES DAILY PRN, Starting on Thu05/30/25 at 0607, Until Thu06/12/25 at 1525, Other, skin irritation, Application site: skin irritation, Dx: 1. Resides in senior care facility glucagon (GLUCAGEN) injection 1 mg(Linked Group 4) 1 mg, Intramuscular, PRN, Starting on Thu05/30/25 at 1723, Until Thu06/12/25 at 1525, Low blood sugar, If FSBS less than 70 mg/dl, patient cannot take orally and without IV access, If patient is without IV access, give Glucagon 1 mg Intramuscularly, insert IV and call physician., Insulin Calculator, Dx: 1. Type 2 diabetes mellitus without complication, without long-term current use of insulin ([facility]) HYDROcodone-acetaminophen (NORCO) 5-325 mg per tablet 1 Tablet 1 Tablet, Oral, EVERY 6 HOURS PRN, Starting on Thu05/30/25 at 0620, Until Thu06/12/25 at 1525, Pain Unrelieved by Oral Non-Opioid Therapy, Maximum adult dose of acetaminophen is 4000 mg from all sources in 24 hours., Dx: 1. Closed fracture of left femur with routine healing, unspecified fracture morphology, unspecified portion of femur, subsequent encounter 1422 (Given - Provider: Janet Porras RN) 2042 (Given - Provider: Stephany Lopez LPN) melatonin tablet 5 mg 5 mg, Oral, NIGHTLY PRN, Starting on Thu05/29/25 at 1833, Until Thu06/12/25 at 1525, Sleep, Dx: 1. Resides in senior care facility 2151 (Given - Provider: Stephany Lopez LPN) ondansetron (ZOFRAN) injection 4 mg(Linked Group 5) 4 mg, Intravenous, EVERY 6 HOURS PRN, Starting on Thu05/31/25 at 1259, Until Thu06/12/25 at 1525, Nausea, Dx: 1. Prophylactic measure 1416 (See Alternative - Provider: Janet Porras, SANTOS) ondansetron (ZOFRAN-ODT) disintegrating tablet 4 mg(Linked Group 5) 4 mg, Oral, EVERY 6 HOURS PRN, Starting on Thu05/31/25 at 1259, Until Thu06/12/25 at 1525, Nausea, Dissolve in mouth, Dx: 1. Prophylactic measure 1416 (Given - Provider: Janet Porras, SANTOS) petrolatum-zinc oxide (TRIAD) topical paste Topical, PRN, Starting on Thu06/07/25 at 0930, Until Thu06/12/25 at 1525, Diaper Rash polyethylene glycol (GLYCOLAX, MIRALAX) packet 17 g 17 g, Oral, DAILY PRN, Starting on Thu05/29/25 at 1833, Until Thu06/12/25 at 1525, Constipation, For constipation unrelieved by Senokot-S, Dx: 1. Resides in senior care facility senna-docusate (SENOKOT-S) 8.6-50 mg per tablet 2 Tablet 2 Tablet, Oral, 2 TIMES DAILY PRN, Starting on Thu05/29/25 at 1833, Until Thu06/12/25 at 1525, Constipation, Use first for constipation, Dx: 1. Resides in senior care facility sterile water injection 1 mL(Linked Group 4) 1 mL, Injection, PRN, Starting on Thu05/30/25 at 1723, Until Thu06/12/25 at 1525, Use for drug dilution, Use to dilute and administer glucagon injection, Insulin Calculator, Dx: 1. Type 2 diabetes mellitus without complication, without long-term current use of insulin ([facility]) Linked Groups Order Group 1: albuterol-ipratropium (DUO-NEB) 3 mg-0.5 mg(2.5 mg base)/3 mL nebulizer solution 3 mLJump to med 3 mL, Nebulization, 4 TIMES DAILY (RESP CARE), First dose (after last modification) on Thu06/02/25 at 0800, Until Discontinued, Administered by Respiratory Therapy. And albuterol (PROVENTIL) nebulizer solution 2.5 mgJump to med 2.5 mg, Nebulization, PRN, Starting on Joana 06/01/25 at 2311, Until Thu06/12/25 at 1525, Wheezing, Shortness of Breath Group 2: Insulin Calculator - FSBS (Correction Only) InputJump to med MISCELLANEOUS, 4 TIMES DAILY AT MEALTIME AND BEDTIME, First dose (after last modification) on Thu06/04/25 at 1800, Until Discontinued, Blood Glucose Target - Daytime (mg/dL): 140, Blood Glucose Target - Nighttime (mg/dL): 180, Hyperglycemia Correction Factor: 17.5, Insulin Calculator, Dx: 1. Type 2 diabetes mellitus without complication, without long-term current use of insulin ([facility]) And insulin aspart U-100 (NovoLOG) injection 0-40 UnitsJump to med 0-40 Units, Subcutaneous, 4 TIMES DAILY AT MEALTIME AND BEDTIME, First dose (after last modification) on Thu06/04/25 at 1800, Until Discontinued, PO Diet: Obtain FSBS before patient begins eating. Administer this dose, which only provides correctional insulin, immediately after FSBS. If patient is NPO or declines meal tray, continue with calculated correction insulin dose. Tube Feeds and TPN: Obtain FSBS and administer this dose, which only provides correctional insulin, immediately after FSBS. Notify physician if FSBS less than 50 or greater than 350. Correction insulin doses must be by at least 3 hours. Waste Sort Code = [employer] Hazardous Waste Container, Blood Glucose Target - Daytime (mg/dL): 140, Blood Glucose Target - Nighttime (mg/dL): 180, Hyperglycemia Correction Factor: 17.5, Insulin Calculator, Dx: 1. Type 2 diabetes mellitus without complication, without long-term current use of insulin ([facility]) Group 3: magnesium sulfate in dextrose 5% infusion 1 g (COMPLETED)Jump to med 1 g, Intravenous, at 100 mL/hr, EVERY HOUR SCHEDULED, 1 dose, First dose on Thu06/10/25 at 1600, Infuse 2 x Magnesium Sulfate 1 g IVPB for a total dose of 2 g Magnesium Sulfate, Dx: 1. Hypokalemia 2. Hypomagnesemia Followed by magnesium sulfate in dextrose 5% infusion 1 g (COMPLETED)Jump to med 1 g, Intravenous, at 100 mL/hr, EVERY HOUR SCHEDULED, 1 dose, First dose on Thu06/10/25 at 1700, Infuse 2 x Magnesium Sulfate 1 g IVPB for a total dose of 2 g Magnesium Sulfate, Dx: 1. Hypomagnesemia Group 4: glucagon (GLUCAGEN) injection 1 mgJump to med 1 mg, Intramuscular, PRN, Starting on Thu05/30/25 at 1723, Until Thu06/12/25 at 1525, Low blood sugar, If FSBS less than 70 mg/dl, patient cannot take orally and without IV access, If patient is without IV access, give Glucagon 1 mg Intramuscularly, insert IV and call physician., Insulin Calculator, Dx: 1. Type 2 diabetes mellitus without complication, without long-term current use of insulin ([facility]) And sterile water injection 1 mLJump to med 1 mL, Injection, PRN, Starting on Thu05/30/25 at 1723, Until Thu06/12/25 at 1525, Use for drug dilution, Use to dilute and administer glucagon injection, Insulin Calculator, Dx: 1. Type 2 diabetes mellitus without complication, without long- term current use of insulin ([facility]) Group 5: ondansetron (ZOFRAN) injection 4 mgJump to med 4 mg, Intravenous, EVERY 6 HOURS PRN, Starting on Thu05/31/25 at 1259, Until Thu06/12/25 at 1525, Nausea, Dx: 1. Prophylactic measure Or ondansetron (ZOFRAN-ODT) disintegrating tablet 4 mgJump to med 4 mg, Oral, EVERY 6 HOURS PRN, Starting on Thu05/31/25 at 1259, Until Thu06/12/25 at 1525, Nausea, Dissolve in mouth, Dx: 1. Prophylactic measure documented in this encounter Orders Medications Ordered That Doron ht Not Have Been Administered Count Last Ordered Date First Ordered Date petrolatum-zinc oxide (TRIAD ) topical paste 1 06/07/2025 Insulin Calculator - FSBS (C orrection Only) Input 2 06/04/2025 05/30/2025 ondansetron (ZOFRAN) injection 4 mg 1 05/31 dextrose 50 % solution 25 mL 1 05/30/2025 fluocinonide (LIDEX) 0.05 % cream 1 glucagon (GLUCAGEN) injection 1 mg 1 2024 sterile water injection 1 mL 1 05/30/2025 albuterol (PROVENTIL) nebuli zer solution 2.5 mg 1 05/29/2025 CHECK PPD SITE 2 05/29/2025 polyethylene glycol (GLYCOLA X, MIRALAX) packet 17 g 1 05/29/2025 senna-docusate (SENOKOT-S) 8 .6-50 mg per tablet 2 Tablet 1 05/29/2025 Consult Count Last Ordered Date First Orde red Date Inpatient consult to wound c are for:Pressure injury; sacrum coccyx 1 05/29/2025 IP CONSULT TO NUTRITION 2 05/29/2025 OT Count Last Ordered Date First Orde red Date OT PLAN OF CARE CERTIFICATION 1 05/30/2025 IP CONSULT TO OCCUPATIONAL THERAPY 1 2024 PT Count Last Ordered Date First Orde red Date PT PLAN OF CARE CERTIFICATION 1 05/30/2025 IP CONSULT TO PHYSICAL THERAPY 1 05/29/2025 UNDERWRITING ANALYST Count Last Ordered Date First Orde red Date IP CONSULT TO SPEECH THERAPY 1 06/05/2025 ONGOING SPEECH THERAPY PER PLAN OF CARE 1 1 Admission Count Last Ordered Date First Orde red Date ADMIT 1 05/29/2025 Discharge Count Last Ordered Date First Orde red Date DISCHARGE PATIENT 1 06/12/2025 documented in this encounter
[2025-07-03 18:55] LABS: Hematocrit 37.0 % (37.0-47.0); Hemoglobin 11.8 g/dL (12.2-16.2); Immature Granulocytes % 0.4 %; Mean Corpuscular HGB Conc 31.9 g/dL (31.8-35.4); Mean Corpuscular Hemoglobin 29.9 pg (27.0-31.2); Mean Corpuscular Volume 93.9 fl (81-99); Nucleated Red Blood Cells % 0 %; Platelet Count 377 K/mm3 (142-424); Red Blood Count 3.94 M/mm3 (4.20-5.40); Red Cell Distribution Width-SD 47.8 fL; White Blood Count 7.7 K/mm3 (4.8-10.8)
[2025-07-03 19:24] LABS: Anion Gap 11.9 mEq/L (5-15); Blood Urea Nitrogen 21 mg/dl (7-17); Calcium 9.3 mg/dl (8.4-10.2); Carbon Dioxide 31 mmol/L (22.0-30.0); Chloride 100 mmol/L (98-107); Creatinine,Serum 0.90 mg/dl (0.52-1.04); Estimated Glomerular Filt Rate 60 ml/min (>60); GFR (African American) 72 ML/MIN (>60); Glucose 186 mg/dl (74-100); Magnesium 1.3 mg/dl (1.6-2.3); Potassium 3.9 mmoL/L (3.5-5.1); Sodium 139 mmol/L (136-145)
[2025-07-03 20:18] LABS: Hemoglobin A1C 6.4 % (4.0-6.0)
--- OUTSIDE RECORDS SUMMARY | 2025-07-03 20:24 | XMS_ITS | Clinical Summary ---
Author Organization [facility] Address [address] [place] [address] Phone Care Team Providers Care Accounting Intern Name Role Phone Unavailable Primary Care Provider [...] melatonin 5 mg Oral TabletIndicatio ns:Resides in snf facility Take 1 Tablet by mouth nightly as needed for Sleep. 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 WBC 7.9 3.7 - 10.3 x10(3)/mcL 06/12/2025 5:36 AM EDT [facility] RBC 3.76(L) 3.90 - 5.20 x10(6)/mcL 06/12/2025 5:36 AM EDT [facility] Hgb 11.3 11.2 - 15.7 g/dL 06/12/2025 5:36 AM EDT [facility] Hct 35.6 34.0 - 45.0 % 06/12/2025 5:36 AM EDT [facility] MCV 94.7 80.0 - 100.0 fL 06/12/2025 5:36 AM EDT [facility] MCH 30.1 26.0 - 34.0 pg 06/12/2025 5:36 AM EDT [facility] MCHC 31.7 30.7 - 35.5 g/dL 06/12/2025 5:36 AM EDT [facility] RDW 13.0 <=14.9 % 06/12/2025 5:36 AM EDT [facility] Platelet 366 155 - 369 x10(3)/mcL 06/12/2025 5:36 AM EDT [facility] MPV 8.8 8.8 - 12.5 fL 06/12/2025 5:36 AM EDT [facility] Blood VENOUS BLOOD / Unknown Venipuncture / Unknown 06/12/2025 5:33 AM EDT 06/12/2025 5:33 AM EDT Jennifer Fontana APRN HEMATOLOGY ORDERABLES Fi nal Result Performing Organization Address [facility] Co de Phone Number [facility] [address] [place] [address] * MAGNESIUM LEVEL (06/12/2025 5:33 AM EDT) Only the most recent of3 resultswithin the time period is included. Magnesium 1.7 1.6 - 2.4 mg/dL 06/12/2025 5:55 AM EDT [facility] Blood VENOUS BLOOD / Unknown Venipuncture / Unknown 06/12/2025 5:33 AM EDT 06/12/2025 5:33 AM EDT Jennifer Fontana APRN CHEMISTRY ORDERABLES Fin al Result Performing Organization Address [facility] de Phone Number [facility] [address] [place] [address] * (ABNORMAL) BASIC METABOLIC PANEL (06/12/2025 5:33 AM EDT) Only the most recent of6 resultswithin the time period is included. Sodium 144 136 - 145 mmol/L 06/12/2025 5:55 AM EDT [facility] Potassium 4.0 3.5 - 5.0 mmol/L 06/12/2025 5:55 AM EDT [facility] Chloride 108(H) 98 - 107 mmol/L 06/12/2025 5:55 AM EDT [facility] Total CO2 27 22 - 29 mmol/L 06/12/2025 5:55 AM EDT [facility] Anion Gap 9 7 - 16 mmol/L 06/12/2025 5:55 AM EDT [facility] Calcium 8.5(L) 8.8 - 10.4 mg/dL 06/12/2025 5:55 AM EDT [facility] Glucose Lvl 137(H) 70 - 99 mg/dL 06/12/2025 5:55 AM EDT [facility] BUN 14 8 - 23 mg/dL 06/12/2025 5:55 AM EDT [facility] Creatinine 0.64 0.51 - 1.30 mg/dL 06/12/2025 5:55 AM EDT [facility] eGFR (CKD-EPIcr 2020) 86 >=60 mL/min/1.7 3 m2 06/12/2025 5:55 AM EDT [facility] Comment:Estimated GFR was ca lculated using the CKD-EPIcr (2020) equation refit without race. The equation is recommended by the National Kidney Foundation - [place] [employer] of Nephrology Task Force. Blood VENOUS BLOOD / Unknown Venipuncture / Unknown 06/12/2025 5:33 AM EDT 06/12/2025 5:33 AM EDT Jennifer Fontana APRN CHEMISTRY ORDERABLES Fin al Result Performing Organization Address [facility] Co de Phone Number [facility] [address] [place] [address] * EXTRA LAVENDER (06/11/2025 6:17 AM EDT) Blood VENOUS BLOOD / Unknown Venipuncture / Unknown 06/11/2025 6:17 AM EDT 06/11/2025 9:04 AM EDT Hugh Zamarripa MD HEMATOLOGY ORDERABLES Fi nal Result Performing Organization Address [facility] de Phone Number [facility] [address] [place] [address] * REPEAT LACTIC ACID (06/11/2025 6:17 AM EDT) Only the most recent of4 resultswithin the time period is included. Lactic Acid 1.9 0.5 - 1.9 mmol/L 06/11/2025 6:31 AM EDT [facility] Blood VENOUS BLOOD / Unknown Venipuncture / Unknown 06/11/2025 6:17 AM EDT 06/11/2025 6:17 AM EDT Hugh Zamarripa MD CHEMISTRY ORDERABLES Fin al Result [facility] [address] [place] [address] * BLOOD CULTURE (NO STAIN) (06/10/2025 5:21 PM EDT) Only the most recent of2 resultswithin the time period is included. Culture Result No Growth at 120 hours. BLOOD CULTURE (NO STAIN) 06/16/2025 11:00 AM EDT [employer] Blood VENOUS BLOOD / Unknown Venipuncture / Unknown 06/10/2025 5:21 PM EDT 06/10/2025 5:23 PM EDT us Jennifer Fontana APRN MICROBIOLOGY - GENERAL O RDERABLES Final Result [facility] [address] [facility] [facility], [place] [address] * PROCALCITONIN (06/10/2025 11:52 AM EDT) Procalcitonin 0.08 <=0.49 ng/mL 06/10/2025 7:35 PM EDT [employer] [employer] Blood VENOUS BLOOD / Unknown Venipuncture / Unknown 06/10/2025 11:52 AM EDT 06/10/2025 12:00 PM EDT Narrative [employer] - 06/10/2025 7:35 PM EDT Procalcitonin <0.50 [...] ORDERABLES Fin al Result Performing Organization Address City/[facility]/ZIP Co de Phone Number [facility] [employer] [address], [address] [place], [place] [id number] * (ABNORMAL) LACTIC ACID (06/10/2025 11:52 AM EDT) Lactic Acid 2.1(H) 0.5 - 1.9 mmol/L 06/10/2025 12:13 PM EDT [facility] Blood VENOUS BLOOD / Unknown Venipuncture / Unknown 06/10/2025 11:52 AM EDT 06/10/2025 12:00 PM EDT Jennifer Fontana APRN CHEMISTRY ORDERABLES Fin al Result Performing Organization Address [facility] Co de Phone Number [facility] [address] [place] [address] * XR CHEST AP PORTABLE [...] UA Color Yellow 06/07/2025 9:08 PM EDT [facility] UA Appear Clear Clear 06/07/2025 9:08 PM EDT [facility] UA Glucose Negative Negative mg/dL 06/07/2025 9:08 PM EDT [facility] UA Ketones Negative Negative mg/dL 06/07/2025 9:08 PM EDT [facility] UA Blood Negative Negative 06/07/2025 9:08 PM EDT [facility] UA pH 6.0 5.0 - 8.0 pH 06/07/2025 9:[facility]A Protein Trace(A) Negative mg/dL 06/07/2025 9:08 PM [facility] UA Urobilinogen 0.2 <=1 mg/dL 9:08 PM EDT [facility] UA Bili Negative Negative 06/07/2025 9:08 PM EDT [facility] UA Nitrite Negative Negative 06/07/2025 9:08 PM [facility] UA Leuk Est Small(A) Negative 06/07/2025 9:08 PM [facility] UA Spec Grav 1.025 1.001 - 1.035 no units 06/07/2025 9:08 PM [facility] Comment:Reference range tessie d for random specimens only. UA WBC 10(H) 0 - 4 /HPF 06/07/2025 9:08 PM EDT [facility] UA RBC 0 0 - 3 /HPF 06/07/2025 9:08 PM EDT [facility] UA Squam Epi 2+ /LPF 06/07/2025 9:08 PM EDT [facility] UA Mucus 2+ /LPF 06/07/2025 9:08 PM EDT [facility] UA Amorph 1+ /HPF 06/07/2025 9:08 PM EDT [facility] UA Bacteria Trace(A) Negative /HPF 06/07/2025 9:08 PM EDT [facility] Urine STRUCTURE OF URINARY TRACT PROPER / Unknown 06/07/2025 8:48 PM EDT 06/07/2025 8:59 PM EDT us Viral Sargent V, DO URINE ORDERABLES Final Result Performing Organization Address City/[facility] Co de Phone Number [facility] [address] [place] [address] * EXTRA LAUGHLIN URINE CX (06/07/2025 8:48 PM EDT) Urine STRUCTURE OF URINARY TRACT PROPER / Unknown 06/07/2025 8:48 PM EDT 06/07/2025 8:59 PM EDT us Viral Sargent V, DO MICROBIOLOGY - GENERAL ORDERAB LES Final Result Performing Organization Address [facility] Co de Phone Number [facility] [address] [place] [address] * (ABNORMAL) URINE CULTURE (NO STAIN) (06/07/2025 [...] MICROBIOLOGY - GENERAL ORDERAB LES Final Result [address] [address] [facility] , [place] [address] * XR HIP LEFT AP LATERAL W [...] 3.7 - 10.3 x10(3)/mcL 06/07/2025 5:11 AM [facility] RBC 3.92 3.90 - 5.20 x10(6)/mcL 06/07/2025 5:11 AM [facility] Hgb 11.8 11.2 - 15.7 g/dL 06/07/2025 5:11 AM [facility] Hct 36.3 34.0 - 45.0 % 06/07/2025 5:11 AM [facility] MCV 92.6 80.0 - 100.0 fL 06/07/2025 5:11 AM [facility] MCH 30.1 26.0 - 34.0 pg 06/07/2025 5:11 AM [facility] MCHC 32.5 30.7 - 35.5 g/dL 06/07/2025 5:11 AM [facility] RDW 12.5 <=14.9 % 06/07/2025 5:11 AM [facility] Platelet 341 155 - 369 x10(3)/mcL 06/07/2025 5:11 AM [facility] MPV 9.0 8.8 - 12.5 fL 06/07/2025 5:11 AM [facility] Neut Percent 79.0 % 06/07/2025 5:11 AM [facility] Comment:Neutrophils equals s egs plus bands Imm Gran% 0.4 % 06/07/2025 5:11 AM [facility] Comment:Automated count of m etamyelocytes, myelocytes and promyelocytes. Lymph Percent 11.7 % 06/07/2025 5:11 AM [facility] [place] Percent 6.9 % 06/07/2025 5:11 AM [facility] Eos Percent 1.5 % 06/07/2025 5:11 AM [facility] Baso Percent 0.5 % 06/07/2025 5:11 AM [facility] Neut # 8.9(H) 1.6 - 6.1 x10(3)/mcL 06/07/2025 5:11 AM [facility] Comment:Neutrophils equals s egs plus bands IMMGRAN# 0.0 0.0 - 0.1 x10(3)/mcL 06/07/2025 5:11 AM EDT [facility] Comment:Automated count of m etamyelocytes, myelocytes and promyelocytes. An absolute IG <0.1 is reported as 0.0. Lymph # 1.3 1.2 - 3.9 x10(3)/mcL 06/07/2025 5:11 AM EDT [facility] [place] # 0.8 0.3 - 0.9 x10(3)/mcL 06/07/2025 5:11 AM EDT [facility] Eos# 0.2 0.0 - 0.5 x10(3)/mcL 06/07/2025 5:11 AM EDT [facility] Baso # 0.1 0.0 - 0.1 x10(3)/mcL 06/07/2025 5:11 AM EDT [facility] Blood VENOUS BLOOD / Unknown Venipuncture / Unknown 06/07/2025 5:09 AM EDT 06/07/2025 5:09 AM EDT us Viral Sargent V, DO HEMATOLOGY ORDERABLES Final Re sult [facility] [address] [place] [address] * PARTIAL THROMBOPLASTIN TIME (05/31/2025 4:43 PM EDT) PTT 31.8 25.7 - 36.8 second(s) 05/31/2025 4:58 PM EDT [facility] Comment: Therapeutic range [...] nal Result Performing Organization Address [facility] de Phone Number [facility] [address] [place] [address] * (ABNORMAL) PT / INR (05/31/2025 4:43 PM EDT) PT 13.7(H) 10.5 - 13.6 second(s) 05/31/2025 4:58 PM EDT [facility] INR 1.19(H) 0.91 - 1.18 (ratio) 05/31/2025 4:58 PM EDT [facility] Comment: Level of [...] ORDERABLES Fi nal Result Performing Organization Address [facility] de Phone Number [facility] [address] [place] [address] * CT ABDOMEN PELVIS HEMATURIA/RENAL MASS PROTOCOL [...] the ordering clinician. us Hugh Zamarripa MD [facility] CT ORDERABLES Final Result * CREATININE ISTAT (05/30/2025 1:26 PM EDT) Creatinine-iST AT 0.9 0.6 - 1.3 mg/dL 05/30/2025 1:28 PM EDT [facility] Blood BLOOD SPECIMEN / Unknown 05/30/2025 1:26 PM EDT 05/30/2025 1:28 PM EDT Hugh Zamarripa MD POINT OF CARE TEST ORDER PEDRO LUIS Final Result [facility] [address] [place] [address] from Last 3 Months Insurance [place]ICAID [place] Member Subscriber Plan / Payer (Ef fective 2005-Present) Name:Patricia Hills Relation to Subscriber:Self Name:Patricia Hills Payer ID:Not on file Group ID:Not on file Type:Not on file Address: [address] DUAL ADVANTAGE [facility] [place]ICAID [place] [employer] DUAL ADVANTAGE O [facility] [place]ICAID [place] Advance Directives For more information, please contact: [phone] * Full Code (Latest Code Status on File) Date Activated Date Inactivated Comments 05/30/2025 6:09 AM 06/12/2025 3:25 PM
--- OUTSIDE RECORDS SUMMARY | 2025-07-03 20:25 | XMS_ITS | Data Portability ---
Author Organization [facility] [place] [facility] Address [address] [facility] [address] [place] [address] Care Team Providers Care Grid Maker Name Role Phone ALETHA ROBERTSON Kennel Keeper SEN REICH JR General Surgeon MOOKIE PEREZ [...] arter y No observ ation record ed. [email or web address] [address], [place], [address], 06/21/2024 11:05:07 Result Notes None recorded. 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 2023 SEN REICH JR, MD [address] [place] [address], [phone], [facility] 13:00:58 Tobacco dependence syndrome 39948428 Active 2023 SEN REICH JR, MD [address] [place] [address], [address], [facility] 13:01:13 Arthritis 9501977 Active 2023 [place] Stephanie [facility] 13:17:13 Hyperlipide alfonso 41215763 Active 2023 [facility] 13:17:27 Type 2 diabetes mellitus 45768875 Active 2023 [facility] 13:20:26 Nodule of lung 782814105 Active 2023 [place] [facility] 13:22:04 Calcificati on of coronary artery 883474622 Active 2023 [facility] 13:22:35 Vitamin D deficiency 14253916 Active 2023 [place] [facility] 13:22:53 Hypertensiv e disorder 61201466 Active 2023 [place] [facility] 13:23:11 Notes:thyroid nodule Problem Notes None recorded. Procedures Surgical History Date Name Laterality Status Provider Name and Address Organization Details Recorded Time Cholecystectomy completed [facility] 06/09/2024 13:16:44 Imaging Results None recorded. Procedure Notes None recorded. Medical Equipment None Reported. Allergies Allergen ID Allergen Name Allergen Category Reaction Reaction Severity Criticality Documentation Date Start Date Code Code System Note Provider Name and Address Organization Details Recorded Time 446756 Altocor medicatio n Not available Not available Not available 06/09/2024 00454 0 RxNorm Cecille Brown [facility] 11:57:40 418785 Product containin g penicilli n (product) medicatio n Not available Not available Not available 06/09/2024 23542 8001 SNOMED [facility] 4 11:57:51 358071 Lescol medicatio n Not available Not available Not available 06/09/2024 66928 2 RxNorm Cecille Brown null, [facility] 4 11:58:33 280826 Cipro medicatio n Not available Not available Not available 06/09/202456632 3 RxNorm Cecille Brown null, [facility] 4 11:58:41 038446 Levaquin medicatio n Not available Not available Not available 06/09/2024 40672 2 Rx[facility] 11:58:52 821164 Medicinal product containin g nitrofura n derivativ e and acting as antibacte rial agent (product) medicatio n Not available Not available Not available 06/09/2024 24233 2000 SNOMED [facility] 4 12:28:38 818715 nitrofura ntoin medicatio n Not available Not available Not available 06/09/2024 7454 RxNorm [facility] 12:00:55 349893 Macrobid medicatio n Not available Not available Not available 06/09/2024 17277 1 RxNorm [facility] 4 12:01:01 741198 Avelox medicatio n Not available Not available Not available 06/09/2024 86540 6 RxNorm Cecillecruzito [facility] 4 12:01:10 523237 Ceclor medicatio n Not available Not available Not available 06/09/202466889 5 RxNorm Cecillecruzito Brown null, [facility] 4 12:01:20 008628 clarithro mycin medicatio n Not available Not available Not available 06/09/202446492 RxNorm [facility] 4 12:02:53 522928 Marcaine medicatio n Not available Not available Not available 06/09/2024 67867 97 RxNorm [facility] 12:03:30 588641 Kenalog medicatio n Not available Not available Not available 06/09/2024 7 RxNorm [facility] 12:03:41 234947 Biaxin medicatio n Not available Not available Not available 06/09/2024 9 RxNorm [facility] 12:04:25 168372 Invokana medicatio n Not available Not available Not available 06/09/2024 68174 64 RxNorm [facility] 12:06:11 814517 Keflex medicatio n Not available Not available Not available 06/09/202429472 7 RxNorm [facility] 12:06:44 349425 hydrochlo rothiazid e medicatio n Not available Not available Not available 06/09/2024 5487 RxNorm [facility] 12:07:37 113625 dexametha sone medicatio n Not available Not available Not available 06/09/2024 3264 RxNorm Cecille Brown [facility] 12:08:02 452131 erythromy sumaya medicatio n Not available Not available Not available 06/09/2024 4053 RxNorm [facility] 4 12:08:29 458694 brompheni ramine Not available Not available Not available Not available 06/09/2024 1767 RxNorm [facility] 12:29:50 Medications Name Sig Start Date Stop [...] 06/09/2024 157.48 cm 68 /min 128/69 mm[Hg] [facility] 06/09/2024 12:16:41 Social History None recorded. [...] ICD10 Code Diagnosis IMO Codes Diagnosis Note [id number] SEN REICH JR, MD GENERAL SURGERY [address] [place] [address] 06/09/2024 11:28:36 06/10/2024 10:23:50 Left carotid artery stenosis [id number] 41239 I65.22 Asymptomat ic left carotid artery stenosis. Check carotid duplex scan.Jose Francisco nue aspirin PlavixCaro tid duplex scan at [facility] shows mild stenosis right and 50-69% stenosis left internal carotid artery. Repeat carotid duplex scan 6 months. Neoplasm o f parotid gland 705506582 D49.0 Benign on fine-needl e aspiration Tobacco de pendence syndrome 92871864 F17.200 Needs cessation Health Concerns Section Related Observation LastModified by Organization Detai ls LastModified Time None Recorded Concern Status LastModified by Organization Details LastModified Time None Recorded Advance Directives Directive None Recorded Payers Insurance Date Sequence Insurance Name Policy Number Policy Richards Covered Member ID Richards Member ID Guarantor Name 06/10/2024 1 [employer] (MEDICARE REPLACEMENT/ ADVANTAGE - HMO) [id number] Patricia Hills [id number] Patricia Hills 06/10/2024 2 MEDICAID-[facility] CHOICES - FFS/TRADITIO NAL Patricia Hills [id number] Patricia Hills Notes Date Note Type Note [...] memory loss SEN REICH JR, MD [address] [place], [address], [facility] 06/21/2024 08:37:58 OBGyn Episode No OBEpisode recorded.
--- OUTSIDE RECORDS SUMMARY | 2025-07-03 20:25 | XMS_ITS | Encounter Summary ---
Author Organization Healthcare Address [address] [place] [address] Care Team Providers Care Director Supply Chain Name Role Phone Pcp, No Primary Care Provider Unavailabl e Encounter Details Date Type Department Care Team (Late st Contact Info) Description 05/12/2024 Orders Only External Location [address] [place] [address] Charlotte Jung, [address] [place] [address] Social History Tobacco Use Types [...] on filedocumented in this encounter Care Teams Director Supply Chain Relationship Specialty Start Date End Date Pcp, No [address] [place] [address] PCP - General Family Medicine 08/10/24 documented as of this encounter
--- OUTSIDE RECORDS SUMMARY | 2025-07-03 20:25 | XMS_ITS | Encounter Summary ---
Author Organization [facility] Address [address] [id number] Care Team Providers Care Dobby Loom Weaver Name Role Phone Pcp, No Primary Care Provider Unavailabl e Reason for Referral * Consultation (Urgent) - Authorized Specialty Diagnoses / Procedures Referred By Contact Referred To Contact Vascular Surgery / [facility] Diagnoses Stenosis of carotid artery, unspecified laterality Prasad León MD [facility] [place] [address] Phone: tel:[phone] fax:[phone] [facility] [address] [facility] [address] [place] [address] Phone: tel: fax: Referral ID Status Reason Start Date Expiration Date Visits Requested Visits Authorized [id number] Authorized Specialty Services Required 05/17/2024 11/16/2025 1 1 Encounter Details Date Type Department Care Team (Late st Contact Info) Description 05/17/2024 Community Orders Community Practice [address] [place] [address] Prasad León MD [address] [place] [address] Stenosis of carotid artery, unspecified [...] Primary documented in this encounter Care Teams Dobby Loom Weaver Relationship Specialty Start Date End Date Pcp, Sonal [address] [place] [address] PCP - General Family Medicine 08/10/24 documented as of this encounter
--- OUTSIDE RECORDS SUMMARY | 2025-07-03 20:25 | XMS_ITS | Encounter Summary ---
Author Organization Healthcare Address [address] [place] [address] Care Team Providers Care Worm Picker Name Role Phone Pcp, No Primary Care Provider Unavailabl e Encounter Details Date Type Department Care Team (Late st Contact Info) Description 05/12/2024 Orders Only External Location [address] [place] [address] Charlotte Jung, [address] [place] [address] Social History Tobacco Use Types [...] on filedocumented in this encounter Care Teams Worm Picker Relationship Specialty Start Date End Date Pcp, No [address] [place] [address] PCP - General Family Medicine 08/10/24 documented as of this encounter
--- OUTSIDE RECORDS SUMMARY | 2025-07-03 20:25 | XMS_ITS | Clinical Summary ---
Author Organization [facility] Address [address] [id number] Care Team Providers Care Distributor Advertising Material Name Role Phone Pcp, No Primary Care [...] (one) time each day. Active nystatin (Mycostatin) 595245 UNIT/ML suspension Take 5 mL (500,000 Units) [...] or (1 - 1-dose 75+ series) 11/22/2015 [id number] Vaccine (1 - season) 2025 UKY-Influenza Vaccine [...] Patient has decision-making capacity? Yes Care Teams Distributor Advertising Material Relationship Specialty Start Date End Date Pcp, No [address] [place] [address] PCP - General Family Medicine 08/10/24
== END 2025-07-03 23:59 | disposition home or self-care (01) ==
LOC: LAB.DROPOF 20:23
PROVIDERS: PCP Nurse Practitioner; Visit Provider Nurse Practitioner
DX: E11.9 Type 2 diabetes mellitus without complications (principal); E83.42 Hypomagnesemia; W19.XXXA Unspecified fall, initial encounter
CPT/HCPCS: 80048; 83036; 83735; 85025

== ENCOUNTER 2025-07-06 13:46 | Outpatient (CLI) | payer MEDICARE, MEDICAID, SELFPAY ==
--- OUTSIDE RECORDS SUMMARY | 2025-05-29 16:44 | XMS_ITS | Encounter Summary ---
Author Organization [place] [address] Care Team Providers Care Regional Operations Director Name Role Phone Unavailable Primary Care Provider Unavailabl e Reason for Visit * Auth/Cert/Inpt Specialty Diagnoses / Procedures Referred By Francisco J walter Referred To Contact Diagnoses Fracture Referral ID Status Reason Start Date Expiration Date Visits Re quested Visits Authorized [id number] 1 1 Encounter Details Date Type Department Care Team (Latest Contact Info) Description 05/29/2025 5:44 PM EDT - 06/12/2025 11:24 AM EDT Hospital Encounter GRT LONG TERM [address] [place] [id number] Hugh Zamarripa MD [address] [place] [address] Coronary artery disease involving [place] coronary artery of [place] heart without angina pectoris (Primary Dx); Resides in long-term facility; Pneumonia due to infectious organism, unspecified [...] 05/29/2025 10:33 PM Paradise Ha RN * [place] Suicide Severity Rating Scale (Q shift for [...] Zamarripa MD - 06/12/2025 6:57 AM EDT [facility] Discharge Summary Patient Name: Patricia Hills : 1940 Admit Date: 05/29/2025 Discharge Date: 06/12/2025 Admitting Physician: Hugh Zamarripa MD Discharge Physician: Hugh Zamarripa MD Reason for Hospitalization: Active Hospital Problems Hypokalemia Hypomagnesemia Shortness of breath Type 2 diabetes mellitus without complication, without long-term current use of insulin (HCC) Essential hypertension Coronary artery disease involving [place] coronary artery of [place] heart without angina pectoris Adrenal adenoma, left Left renal mass Left lower lobe pulmonary nodule *Fractured hip, left, closed, initial encounter ([facility]) Hospital Course/Significant Findings: Patient 84-year-old white female who fell at home and broke her left hip, underwent surgery on May 26 to repair/stabilize fracture. Patient admitted to [facility] for long-term and rehab, noted in hospital to have [...] Diagnoses: Fractured hip, left, closed, initial encounter ([facility]) Condition at Discharge: stable Disposition: Home Discharge [...] Your Medications These medications were sent to [facility] [place] [address] [address] [facility] [phone] [address] [facility] [address] cyanocobalamin 1,000 mcg/mL Soln insulin glargine U-100 [...] melatonin 5 mg Oral TabletIndications :Resides in long-term facility Take 1 Tablet by mouth nightly [...] (FLORASTOR) 250 mg Oral CapsuleIndication s:Resides in long-term facility Take 1 Capsule by mouth 2 times daily. 60 Capsule 06/12/2025 documented as of this encounter Ordered Prescriptions Prescription Sig Dispense Quantity Refills Last Filled Start Date End Date cyanocobalamin 1,000 mcg/mL Inj SolutionIndication s:Other fatigue Inject 1 mL into the muscle every 30 days. 1 mL 06/12/2025 Saccharomyces boulardii (FLORASTOR) 250 mg Oral CapsuleIndications :Resides in long-term facility Take 1 Capsule by mouth 2 times daily. 60 Capsule 06/12/2025 melatonin 5 mg Oral TabletIndications: Resides in long-term facility Take 1 Tablet by mouth nightly [...] Means Destination Comment s Home or Self Intermediate documented in this encounter Progress Notes * Amie Weller, PT - 06/12/2025 11:24 AM EDT 06/12/25 1629 [facility] PT Subjective Note Type Discharge Mobility - Actual Discharge (Therapies) Sit to stand 4-Supv Chair/Mbz-mv-tqvgf transfer 4-Supv Walk 10 Feet 4-Supv Walk [...] Kylah. Kylah called and spoke with pt. SENIOR ADMINISTRATIVE SERVICES OFFICER notified and aware. Pt up in the [...] a pneumonia prior to being admitted here. SENIOR ADMINISTRATIVE SERVICES OFFICER notified with orders for CXR and labs. [...] PM EDTAssociated Problem(s): Coronary artery disease involving [place] coronary artery of [place] heart with out angina pectoris -No chest [...] 145/57 -Continue losartan Coronary artery disease involving [place] coronary artery of [place] heart without angina pectoris -No chest pain [...] Diagnosis *Fractured hip, left, closed, initial encounter ([facility]) Hypokalemia Hypomagnesemia Type 2 diabetes mellitus without complication, without long-term current use of insulin (HCC) Essential hypertension Coronary artery disease involving [place] coronary artery of [place] heart without angina pectoris Adrenal adenoma, left [...] Essential hypertension ?? Coronary artery disease involving [place] coronary artery of [place] heart without angina pectoris ?? Adrenal adenoma, [...] Essential hypertension ?? Coronary artery disease involving [place] coronary artery of [place] heart without angina pectoris ?? Adrenal adenoma, [...] (HCC) Essential hypertension Coronary artery disease involving [place] coronary artery of [place] heart without angina pectoris Adrenal adenoma, left [...] weight 135 lb 12.9 oz (61.6 kg), OhC188%. Vital signs are normal. No fever. Output: [...] - 06/09/2025 1:07 PM EDT 06/09/25 1254 [facility] OT Subjective Note Type Treatment/Progress OT Subjective [...] placement, RW placement, and sequencing.) Additional Comments APPRENTICE PLUMBER present during session due to agitation/confusion for [...] to sit on L arm rest of [facility] over commode and chair in room. Exercise [...] progress in skilled care at this time. intermediate placement or caregiver assistance may be helpful. [...] bed 88-Not attempted Sit to stand 4-Supv Chair/Jzl-ak-akqvo transfer 4-Supv Toilet transfer 88-Not attempted Tub/Shower [...] patient need. Time In / Time Out [phone] [facility] Actual Physical Therapy Minutes [facility] PT Ind Therapy Min 49 (12Gt, [...] Essential hypertension ?? Coronary artery disease involving [place] coronary artery of [place] heart without angina pectoris ?? Adrenal adenoma, [...] Essential hypertension ?? Coronary artery disease involving [place] coronary artery of [place] heart without angina pectoris ?? Adrenal adenoma, [...] (HCC) Essential hypertension Coronary artery disease involving [place] coronary artery of [place] heart without angina pectoris Adrenal adenoma, left [...] - 06/08/2025 1:51 PM EDT 06/08/25 1332 [facility] OT Subjective Note Type Treatment/Progress OT Subjective [...] pt that she needed to move to [facility] for new perspective and for mental/emotional [...] You will have to go to a longterm because I can't do this at home. [...] with [facility] agitation, etc. Pt continued to state, They will laugh at me. Pt educated that no one is present in [facility] except pt/dtr/staff. Assessment Progress Slow progress, [...] of bed 4-Supv Sit to stand 4-Supv Chair/Oli-ga-wavgf transfer 4-Supv Toilet transfer 88-Not attempted Tub/Shower [...] this time. Time In / Time Out 7429-5145 [facility] Actual Physical Therapy Minutes [facility] PT [...] role.) (06/02/25 1643) Dressing UE Set up ([facility] gown and donned pullover shirt.) (06/01/25 1502) Dressing LE Contact guard, With verbal cues, Pull up over hips, Thread LLE into underwear, Thread RLE into underwear, Thread LLE into pants, Thread RLE into pants, Don/doff L sock, Don/doff R sock (Pt educated on use of elementary school professional/sock aid for LB dressing. Pt doffed/donned socks with CGA and MAX verbal cues for technique. CGA and MOD verbal cues to don pants with elementary school professional. MAX cues to hold RW at all [...] hip. ) (06/06/251239) Dressing UE Set up ([facility] gown and donned pullover shirt. Declined bra) (06/06/251239) Dressing LE Contact guard, With verbal cues, Don/doff L shoe, Don/doff R shoe, Pull up over hips, Thread RLE into pants, Thread LLE into pants, Don/doff L sock, Don/doff R sock (Pt able to use elementary school professional/sock aid for LB dressing with MOD cues and CGA. Dtr present to see use of elementary school professional. Pt stated, Well can't you pull my [...] time. Equipment Recommended hand held shower head, elementary school professional, sock aid, long handled sponge, grab bars. [...] alarm activated Additional Comments Call light within elementary school professional. Pt asked OT to put items on [...] [T14.8XXA] Fractured hip, left, closed, initial encounter ([facility]) [S72.002A] Upon assessment, pt with the following [...] aid in wound healing. Orders updated in [facility]. Primary nurse updated. Will continue to follow [...] Essential hypertension ?? Coronary artery disease involving [place] coronary artery of [place] heart without angina pectoris ?? Adrenal adenoma, [...] Essential hypertension ?? Coronary artery disease involving [place] coronary artery of [place] heart without angina pectoris ?? Adrenal adenoma, [...] (HCC) Essential hypertension Coronary artery disease involving [place] coronary artery of [place] heart without angina pectoris Adrenal adenoma, left [...] weight 135 lb 12.9 oz (61.6 kg), TkP627%. Vital signs are normal. No fever. Output: [...] hip. ) UE Dressing Assistance Set up ([facility] gown and donned pullover shirt. Declined bra) LE Dressing Assistance Contact guard;With verbal cues;Don/doff L shoe;Don/doff R shoe;Pull up over hips;Thread RLE into pants;Thread LLE into pants;Don/doff L sock;Don/doff R sock (Pt able to use elementary school professional/sock aid for LB dressing with MOD cues and CGA. Dtr present to see use of elementary school professional. Pt stated, Well can't you pull my [...] continue skilled, HHPT at discharge. Equip recommendations elementary school professional, sock aid, long handled sponge D/c date [...] thin is recommended and no further acute QA AUDITOR dysphagia intervention is warranted at this time. [...] thin liquids Assistance/Supervision: Independent Resident/caregiver education Alisha Csatillo CCC-QA AUDITOR Care Conference held this date with resident [...] same date. Resident agreeable to [facility] ([facility]) services at discharge. Referral sent to [facility] and orders placed on chart. Jeannette Quach [...] recommended. Time In / Time Out 0957/1012 [facility] Actual Physical Therapy Minutes LTC PT [...] for fear of hip pain increasing.) (06/05/25 7049) Other Goal Status: Patient is progressing towards [...] Essential hypertension ?? Coronary artery disease involving [place] coronary artery of [place] heart without angina pectoris ?? Adrenal adenoma, [...] Essential hypertension ?? Coronary artery disease involving [place] coronary artery of [place] heart without angina pectoris ?? Adrenal adenoma, [...] (HCC) Essential hypertension Coronary artery disease involving [place] coronary artery of [place] heart without angina pectoris Adrenal adenoma, left [...] - 06/05/2025 5:09 PM EDT 06/05/25 1659 [facility] OT Subjective Note Type Treatment/Progress OT Subjective [...] SANTOS - 06/05/2025 4:14 PM EDT [facility] for Dr. Ortega. Patient has a follow up apt with Dr. Ortega on 06/12. Dr. Wilkerson office staff said that if the patient will not be discharged from [facility] by then, the staff nurse here at [facility] would need to remove the [...] not working. Pt doesn't want to take [place], per pt [place] makes her confused. notified and seen and [...] PM EDTAssociated Problem(s): Coronary artery disease involving [place] coronary artery of [place] heart without angina pectoris -No chest pain [...] complication, without long-term current use of insulin ([facility]) -BG stable, at goal 157 most recent -Lantus, metformin, insulin calculator Essential hypertension -BP stable 146/86 -Continue losartan Coronary artery disease involving [place] coronary artery of [place] heart without angina pectoris -No chest pain 06/03 -Continue ASA, statin, BB Adrenal adenoma, left -Stable Left renal mass -Noted patient refused further workup/imaging at this time Left lower lobe pulmonary nodule -Repeat CT 6-12 months outpatient D/w RN Dispo: Skilled Active Hospital Problems Diagnosis *Fractured hip, left, closed, initial encounter ([facility]) Type 2 diabetes mellitus without complication, without long-term current use of insulin ([facility]) Essential hypertension Coronary artery disease involving [place] coronary artery of [place] heart without angina pectoris Adrenal adenoma, left [...] Pt reported desire to read, read bible, Depopu puzzles and coloring. Activity area accessed and [...] discharge Time In / Time Out 1520/1533 [facility] Actual Physical Therapy Minutes [facility] PT Ind Therapy Min (!) 13 Katya Ott PT * Alex Mayberry, PT - 06/02/2025 1:50 PM EDT 06/02/25 1349 [facility] PT Subjective Note Type Follow Up Treatment Attempt Patient Room/Unit 106 Therapy delay reason Patient declined * Katya Ott, PT - 06/02/2025 1:07 PM EDT 06/02/25 1306 PT Subjective Note Type Follow Up Treatment Attempt Patient Room/Unit 106 Others Present/Assisting daughter Therapy delay reason Patient eating Katya Ott PT * Alex Mayberry, PT - 06/02/2025 11:37 AM EDT 06/02/25 1134 [facility] PT Subjective Note Type Treatment/Progress Patient Room/Unit [...] (HCC) Essential hypertension Coronary artery disease involving [place] coronary artery of [place] heart without angina pectoris Adrenal adenoma, left [...] MD 06/02/2025 7:06 AM * Breana Griffin, POLICE OFFICER CRIME PREVENTION - 06/01/2025 8:16 PM EDT Respiratory Therapy [...] ADL Interventions UE Dressing Assistance Set up ([facility] gown and donned pullover shirt.) LE Dressing Assistance Contact guard;With verbal cues;Pull up over hips;Thread LLE into underwear;Thread RLE into underwear;Thread LLE into pants;Thread RLE into pants;Don/doff L sock;Don/doff R sock (Pt educated on use of elementary school professional/sock aid for LB dressing. Pt doffed/donned socks with CGA and MAX verbal cues for technique. CGA and MOD verbal cues to don pants with elementary school professional. MAX cues to hold RW at all [...] Schultz RD,LD - 06/01/2025 2:27 PM EDT [facility] Nutrition Initial Assessment Evidence Supported Malnutrition Diagnosis: No malnutrition identified Nutrition Problem/Diagnosis: Nutrition Diagnosis Problem 1: Increased nutrient needs (specify) (energy and amino acids) Calories (amino acids) related to increased demand for energy/nutrients, anticipated change in physical demands as evidenced by wounds, increased estimated needs. Status: New nutrition diagnosis Nutrition Prescription: Kcals: [id number] K Jacinto Needs Based On: Kcal/kg - [...] [T14.8XXA] Fractured hip, left, closed, initial encounter ([facility]) [S72.002A] Reason For Assessment: Skin integrity protocol, [...] Occurrence: 1 Stool Appearance: (!) Type 6 [place] Stool Chart Stool Color: Brown, Yellow Stool [...] kidney mass on the left.Patient sent to [facility] for skilled rehab. * Silvia Diaz, PT [...] discharge Time In / Time Out 1013/1027 [facility] Actual Physical Therapy Minutes LT PT [...] status;Chair/personal alarm activated Additional Comments RN and APPRENTICE PLUMBER present at end of session assess glucose [...] recommended. Time In / Time Out 15:55-16:41 [facility] Actual Occupational Therapy Minutes [facility] Individual [...] she thinks she is staying in a advent somewhere, reoriented to both time and place, also pulled stat lock for starr off, encouraged patient keep hands away from cath as it could cause infection or trama, encouraged to use call light for needs and assistance. Will continue to monitor. * Stephany Lopez LPN - 05/30/2025 11:14 PM EDT Up to [facility] with walker, gait belt and assist of [...] at discharge Time In / Time Out [id number] [facility] Actual Physical Therapy Minutes LTC PT [...] like standing up right now. Others Present/Assisting Mary-labor union business representative Information Evaluation to serve as discharge summary [...] left. Clinical Course Patient was admitted to [facility] and had LLE hemiarthroplasty 05/26/25. Trasnferred to [...] living in basement of her home at [facility]. Pt has decreased BUE strength, decreased independence [...] training in prep to return home to [facility]. Goals Patient and/or Family Goal to get [...] OT Weekly Progress Note Due Date 06/07/25 [facility] Actual Occupational Therapy Minutes LTC OT Evaluation Minutes 15 [facility] Individual Therapy Minutes 29 * Hugh [...] left. Clinical Course Patient was admitted to [facility] and had LLE hemiarthroplasty 05/26/25. Trasnferred to [...] mobility to encourage movement/ambulation to<>from restroom by APPRENTICE PLUMBER.) UE Assessment LUE Assessment WFL RUE Assessment [...] of bed 2-Substantial Sit to stand 2-Substantial Chair/Qub-jf-ejhgl transfer 2-Substantial Toilet transfer 2-Substantial (BS) Walk 10 Feet 88-Not attempted Walk 50 feet with two turns 88-Not attempted Walk 150 feet 88-Not attempted Walking 10 Feet On Uneven Surfaces 88-Not attempted 1 Step (Curb) 88-Not attempted 4 Steps 88-Not attempted 12 Steps 88-Not attempted Picking Up Object 88-Not attempted Does the resident use a wheelchair/scooter? N1-o Patient Insurance Does Patient Have [employer] Insurance? no Bed Mobility Supine to Sit [...] After several attempts demonstrated improvement. Sat at [facility]. Then Katya PT assisted with APPRENTICE PLUMBER [facility]. Gait Gait Not performed Stair Management Assistance [...] based upon hospital discharge instructions received from [facility]. Per Dr. Zamarripa, hold tonight's dose [...] mass on the left. Patient sent to [facility] for skilled rehab. Review of Systems Constitutional: [...] Diagnosis *Fractured hip, left, closed, initial encounter ([facility]) Type 2 diabetes mellitus without complication, without long-term current use of insulin ([facility]) Essential hypertension Coronary artery disease involving [place] coronary artery of [place] heart without angina pectoris Fracture left hip-status post surgery, admitted to [facility] long-term or rehab/physical therapy. Type 2 oqstjocs-Csbc-Ojuh twice daily and continue metformin, glyburide was stopped Hypertension-blood pressure 129/44 currently on metoprolol and losartan Coronary artery disease with stents-on aspirin and Plavix, continue and continue cholesterol and blood pressure medicine VTE-Lovenox ordered Adrenal and kidney mass-Will get outside CAT scan report and review Addendum-in review of CAT scan of abdomen on 05/24/2025 at [facility] showed a 2 cm left adrenal mass [...] (HCC) Essential hypertension Coronary artery disease involving [place] coronary artery of [place] heart without angina pectoris [6] No current [...] discharged home with her daughter 06/12/25 with [facility]. * RT Oxygen Plan of Care Note [...] * Plan of Care - Alisha Castillo CCC-QA AUDITOR - 06/06/2025 4:27 PM EDT Clinical Swallow [...] mass on the left. Patient sent to [facility] for skilled rehab. QA AUDITOR consulted for swallow evaluation as pt reported [...] thin is recommended and no further acute QA AUDITOR dysphagia intervention is warranted at this time. [...] liquids Assistance/Supervision: Independent Pt/caregiver education No further QA AUDITOR needs at this time 06/06/25 1239 Clinical [...] Goal none voiced Patient/Family Education Completed Yes QA AUDITOR Recommendation Home with prior support This note [...] reported she previously had home O2 with [facility] [place], and when no longer needed, was returned to [facility]. She lives with daughter and plans to return at discharge. There are 7 steps into the home with handrails. She was independent in ADL's prior to fall and has a 2WW. Pharmacy is [facility]. They are agreeable to [facility] at discharge as they had them in [...] 11:52 AM EDT XR CHEST AP PORTABLE HSAYAN 06/10/2025 11:38 AM EDT GLUCOSE METER POC [...] PEDRO LUIS Final Result Performing Organization Address City/[facility]/ZIP Co de Phone Number [facility] [address] [place] [address] * MAGNESIUM LEVEL (06/12/2025 5:33 AM EDT) [facility] Magnesium 1.7 1.6 - 2.4 mg/dL 06/12/2025 5:55 AM EDT [facility] Blood VENOUS BLOOD / Unknown Venipuncture / Unknown 06/12/2025 5:33 AM EDT 06/12/2025 5:33 AM EDT Jennifer Fontana APRN CHEMISTRY ORDERABLES Fin al Result Performing Organization Address City/[facility]/ZIP Co de Phone Number [facility] [address] [place] [address] * (ABNORMAL) CBC (06/12/2025 5:33 AM EDT) Pathologist [facility] WBC 7.9 3.7 - 10.3 x10(3)/mcL 06/12/2025 [...] [facility] [address] [place] [address] * (ABNORMAL) BASIC METABOLIC PANEL (06/12/2025 5:33 AM EDT) Pathologist [facility] Sodium 144 136 - 145 mmol/L 06/12/2025 [...] recommended by the National Kidney [employer] - [place] Society of Nephrology Task Force. Blood VENOUS BLOOD / Unknown Venipuncture / Unknown 06/12/2025 5:33 AM EDT 06/12/2025 5:33 AM EDT us Jennifer Fontana APRN CHEMISTRY ORDERABLES Fin al Result [facility] [address] [place] [address] * (ABNORMAL) GLUCOSE METER POC [...] PEDRO LUIS Final Result Performing Organization Address City/[facility]/ZIP Co de Phone Number [facility] [address] [place] [address] * (ABNORMAL) GLUCOSE METER POC (06/11/2025 4:59 [...] PEDRO LUIS Final Result Performing Organization Address City/[facility] Co de Phone Number [facility] [address] [place] [address] * (ABNORMAL) GLUCOSE METER POC (06/11/2025 12:16 [...] PEDRO LUIS Final Result Performing Organization Address City/[facility]/ZIP Co de Phone Number [facility] [address] [place] [address] * (ABNORMAL) GLUCOSE METER POC (06/11/2025 7:59 [...] PEDRO LUIS Final Result Performing Organization Address [facility] Co de Phone Number [facility] [address] [place] [address] * EXTRA LAVENDER (06/11/2025 6:17 AM EDT) Blood VENOUS BLOOD / Unknown Venipuncture / Unknown 06/11/2025 6:17 AM EDT 06/11/2025 9:04 AM EDT Hugh Zamarripa MD HEMATOLOGY ORDERABLES Fi nal Result Performing Organization Address [facility] Co de Phone Number [facility] [address] [place] [address] * REPEAT LACTIC ACID (06/11/2025 6:17 AM EDT) Lactic Acid 1.9 0.5 - 1.9 mmol/L 06/11/2025 6:31 AM EDT [facility] Blood VENOUS BLOOD / Unknown Venipuncture / Unknown 06/11/2025 6:17 AM EDT 06/11/2025 6:17 AM EDT Hugh Zamarripa MD CHEMISTRY ORDERABLES Fin al Result Performing Organization Address City/[facility]/ZIP Co de Phone Number [facility] [address] [place] [address] * MAGNESIUM LEVEL (06/11/2025 6:17 AM EDT) Magnesium 1.6 1.6 - 2.4 mg/dL 06/11/2025 6:56 AM EDT [facility] Blood VENOUS BLOOD / Unknown Venipuncture / Unknown 06/11/2025 6:17 AM EDT 06/11/2025 6:43 AM EDT us Jennifer Fontana APRN CHEMISTRY ORDERABLES Fin al Result [facility] [address] [place] [address] * (ABNORMAL) BASIC METABOLIC PANEL (06/11/2025 6:17 [...] 0.51 - 1.30 mg/dL 06/11/2025 6:56 AM [facility] eGFR (CKD-EPIcr 2020) 87 >=60 mL/min/1.7 3 m2 06/11/2025 6:56 AM T [facility] Comment:Estimated GFR was ca lculated using the CKD-EPIcr (2020) equation refit without race. The equation is recommended by the National Kidney Foundation - [place] [employer] of Nephrology Task Force. Blood VENOUS BLOOD / Unknown Venipuncture / Unknown 06/11/2025 6:17 AM EDT 06/11/2025 6:43 AM EDT Jennifer Fontana APRN CHEMISTRY ORDERABLES Fin al Result Performing Organization Address City/[facility] Co de Phone Number [facility] [address] [place] [address] * (ABNORMAL) REPEAT LACTIC ACID (06/10/2025 11:20 PM EDT) Lactic Acid 2.3(H) 0.5 - 1.9 mmol/L 06/10/2025 11:36 PM EDT [facility] Blood VENOUS BLOOD / Unknown Venipuncture / Unknown 06/10/2025 11:20 PM EDT 06/10/2025 11:20 PM EDT Hugh Zamarripa MD CHEMISTRY ORDERABLES Fin al Result Performing Organization Address [facility] de Phone Number [facility] [address] [place] [address] * (ABNORMAL) REPEAT LACTIC ACID (06/10/2025 8:14 PM EDT) Lactic Acid 3.3(H) 0.5 - 1.9 mmol/L 06/10/2025 8:29 PM EDT [facility] Blood VENOUS BLOOD / Unknown Venipuncture / Unknown 06/10/2025 8:14 PM EDT 06/10/2025 8:14 PM EDT Jennifer Fontana APRN CHEMISTRY ORDERABLES Fin al Result Performing Organization Address [facility] Co de Phone Number [facility] [address] [place] [address] * BLOOD CULTURE (NO STAIN) (06/10/2025 5:21 PM EDT) Culture Result No Growth at 120 hours. BLOOD CULTURE (NO STAIN) 06/16/2025 11:00 AM EDT [facility] [employer] Blood VENOUS BLOOD / Unknown Venipuncture / Unknown 06/10/2025 5:21 PM EDT 06/10/2025 5:23 PM EDT Jennifer Fontana APRN MICROBIOLOGY - GENERAL O RDERABLES Final Result [facility] [employer] [address] [place] [address] , [place] [address] * BLOOD CULTURE (NO STAIN) (06/10/2025 5:21 PM EDT) Culture Result No Growth at 120 hours. BLOOD CULTURE (NO STAIN) 06/16/2025 11:00 AM EDT [facility] [employer] Blood VENOUS BLOOD / Unknown Venipuncture / Unknown 06/10/2025 5:21 PM EDT 06/10/2025 5:24 PM EDT Jennifer Fontana APRN MICROBIOLOGY - GENERAL O RDERABLES Final Result Performing Organization Address City/[facility]/ZIP Co de Phone Number [facility] [employer] [address] , [place] [address] * (ABNORMAL) GLUCOSE METER POC [...] PEDRO LUIS Final Result Performing Organization Address City/[facility] Co de Phone Number [facility] [address] [place] [address] * (ABNORMAL) REPEAT LACTIC ACID (06/10/2025 2:18 PM EDT) Lactic Acid 3.2(H) 0.5 - 1.9 mmol/L 06/10/2025 2:34 PM EDT [facility] Blood VENOUS BLOOD / Unknown Venipuncture / Unknown 06/10/2025 2:18 PM EDT 06/10/2025 2:23 PM EDT Jennifer Fontana APRN CHEMISTRY ORDERABLES Fin al Result Performing Organization Address [facility] de Phone Number [facility] [address] [place] [address] * (ABNORMAL) GLUCOSE METER POC (06/10/2025 11:59 [...] PEDRO LUIS Final Result Performing Organization Address [facility] Co de Phone Number [facility] [address] [place], [place] [id number] * (ABNORMAL) MAGNESIUM LEVEL (06/10/2025 11:52 AM EDT) Magnesium 1.3(L) 1.6 - 2.4 mg/dL 06/10/2025 1:12 PM EDT [facility] [employer] [facility] Blood VENOUS BLOOD / Unknown Venipuncture / Unknown 06/10/2025 11:52 AM EDT 06/10/2025 12:00 PM EDT Jennifer Fontana APRN CHEMISTRY ORDERABLES Fin al Result Performing Organization Address [facility] Co de Phone Number [facility] [address] [place] [address] * PROCALCITONIN (06/10/2025 11:52 AM EDT) Procalcitonin 0.08 <=0.49 ng/mL 06/10/2025 7:35 PM EDT [facility] [employer] Blood VENOUS BLOOD / Unknown Venipuncture / Unknown 06/10/2025 11:52 AM EDT 06/10/2025 12:00 PM EDT Narrative [facility] [employer] - 06/10/2025 7:35 PM EDT Procalcitonin <0.50 [...] ORDERABLES Fin al Result Performing Organization Address [facility] Co de Phone Number [employer] [address] [place] [address] , [place] [address] * (ABNORMAL) LACTIC ACID (06/10/2025 11:52 AM EDT) Pathologist [facility] Lactic Acid 2.1(H) 0.5 - 1.9 mmol/L 06/10/2025 12:13 PM EDT [facility] Blood VENOUS BLOOD / Unknown Venipuncture / Unknown 06/10/2025 11:52 AM EDT 06/10/2025 12:00 PM EDT us Jennifer Fontana [employer] CHEMISTRY ORDERABLES Fin al Result [facility] [address] [place] [address] * (ABNORMAL) CBC (06/10/2025 11:52 [...] 06/10/2025 12:00 PM EDT us Jennifer Fontana [employer]AD[employer] HEMATOLOGY ORDERABLES Fi nal Result [facility] [address] [place] [address] * (ABNORMAL) BASIC METABOLIC PANEL [...] recommended by the National Kidney Foundation - [place] [employer] of Nephrology Task Force. Blood VENOUS BLOOD / Unknown Venipuncture / Unknown 06/10/2025 11:52 AM EDT 06/10/2025 12:00 PM EDT us Jennifer Fontana APRN CHEMISTRY ORDERABLES Fin al Result [facility] [address] [place] [address] * XR CHEST AP PORTABLE (06/10/2025 11:38 [...] GLUCOSE METER POC (06/10/2025 8:36 AM EDT) [facility] Glucose Meter POC 126(H) 70 - 100 [...] PEDRO LUIS Final Result Performing Organization Address City/[facility] Co de Phone Number [facility] [address] [place] [address] * (ABNORMAL) GLUCOSE METER POC (06/09/2025 8:23 [...] PEDRO LUIS Final Result Performing Organization Address City/[facility]/ZIP Co de Phone Number [facility] [address] [place] [address] * (ABNORMAL) GLUCOSE METER POC (06/09/2025 4:53 [...] PEDRO LUIS Final Result Performing Organization Address City/[facility] Co de Phone Number [facility] [address] [place] [address] * (ABNORMAL) GLUCOSE METER POC (06/09/2025 11:44 [...] PEDRO LUIS Final Result Performing Organization Address [facility] de Phone Number [facility] [address] [place] [address] * (ABNORMAL) GLUCOSE METER POC (06/09/2025 7:43 [...] PEDRO LUIS Final Result Performing Organization Address City/[facility] Co de Phone Number [facility] [address] [place] [address] * (ABNORMAL) GLUCOSE METER POC (06/08/2025 8:01 [...] PEDRO LUIS Final Result Performing Organization Address City/[facility]/ZIP Co de Phone Number [facility] [address] [place], [place] [id number] * (ABNORMAL) GLUCOSE METER POC (06/08/2025 4:33 [...] PEDRO LUIS Final Result Performing Organization Address City/[facility]/ZIP Co de Phone Number [facility] [address] [place], [place] [id number] * (ABNORMAL) BASIC METABOLIC PANEL (06/08/2025 4:27 [...] recommended by the National Kidney Foundation - [place] [employer] of Nephrology Task Force. Blood VENOUS BLOOD / Unknown Venipuncture / Unknown 06/08/2025 4:27 PM EDT 06/08/2025 4:30 PM EDT us Viral Sargent V, DO CHEMISTRY ORDERABLES Final Res ult [facility] [address] [place] [address] * (ABNORMAL) GLUCOSE METER POC [...] PEDRO LUIS Final Result Performing Organization Address City/[facility] Co de Phone Number [facility] [address] [place] [address] * (ABNORMAL) GLUCOSE METER POC (06/08/2025 8:30 [...] PEDRO LUIS Final Result Performing Organization Address [facility] de Phone Number [facility] [address] [place] [address] * (ABNORMAL) GLUCOSE METER POC (06/07/2025 8:56 [...] PEDRO LUIS Final Result Performing Organization Address City/[facility]/ZIP Co de Phone Number [facility] [address] [place] [address] * (ABNORMAL) URINE CULTURE (NO STAIN) (06/07/2025 8:48 PM EDT) Culture Positive Growth(A) 06/10/2025 1:16 PM EDT [facility] Culture >100,000 CFU/mL Lactobacillus species SUSCEPTIB ILITY RESULT 06/10/2025 1:16 PM EDT [facility] Comment:No further workup. Culture 4,000 CFU/mL Ashley albicans SUSCEPTIB ILITY RESULT 06/10/2025 1:16 PM EDT [facility] Comment:No further workup. Urine STRUCTURE OF URINARY TRACT PROPER / Unknown 06/07/2025 8:48 PM EDT 06/07/2025 9:08 PM EDT Viral Sargent V, DO MICROBIOLOGY - GENERAL ORDERAB LES Final Result [facility] [address] [facility] , [place] [address] * EXTRA LAUGHLIN URINE CX (06/07/2025 8:48 PM EDT) Urine STRUCTURE OF URINARY TRACT PROPER / Unknown 06/07/2025 8:48 PM EDT 06/07/2025 8:59 PM EDT us Viral Sargent V, DO MICROBIOLOGY - GENERAL ORDERAB LES Final Result Performing Organization Address City/[facility]/ZIP Co de Phone Number [facility] [address] [place] [address] * (ABNORMAL) URINALYSIS REFLEX (06/07/2025 8:48 PM [...] [facility] [address] [place] [address] * (ABNORMAL) GLUCOSE METER POC [...] PEDRO LUIS Final Result Performing Organization Address [facility] Co de Phone Number [facility] [address] [place] [address] * (ABNORMAL) GLUCOSE METER POC (06/07/2025 11:49 [...] PEDRO LUIS Final Result Performing Organization Address [facility] Co de Phone Number [facility] [address] [place] [address] * (ABNORMAL) GLUCOSE METER POC (06/07/2025 7:50 [...] [facility] [address] [place] [address] * XR HIP LEFT AP [...] 3.90 - 5.20 x10(6)/mcL [facility]/07[facility]25 [facility] Hgb 11.8 11.2 - 15.7 g/dL 06/07/2025 5:11 AM [facility] Hct 36.3 34.0 - 45.0 % 06/07/2025 5:11 AM [facility] MCV 92.6 80.0 - 100.0 fL 06/07/2025 5:11 AM [facility] MCH 30.1 26.0 - 34.0 pg 06/07/2025 5:11 AM [facility] MCHC 32.5 30.7 - 35.5 g/dL 06/07/2025 5:11 AM [facility] RDW 12.5 <=14.9 % 06/07/2025 5:11 AM [facility] Platelet 341 155 - 369 x10(3)/mcL 06/07/2025 5:11 AM [facility] MPV 9.0 8.8 - 12.5 fL 06/07/2025 5:11 AM [facility] Neut Percent 79.0 % 06/07/2025 5:11 AM [facility] Comment:Neutrophils equals s egs plus bands Imm Gran% 0.4 % 06/07/2025 5:11 AM [facility] Comment:Automated count of m etamyelocytes, myelocytes and promyelocytes. Lymph Percent 11.7 % 06/07/2025 5:11 AM [facility] [place] Percent 6.9 % 06/07/2025 5:11 AM [facility] Eos Percent 1.5 % 06/07/2025 5:11 AM [facility] Baso Percent 0.5 % 06/07/2025 5:11 AM [facility] Neut # 8.9(H) 1.6 - 6.1 x10(3)/mcL 06/07/2025 5:11 AM [facility] Comment:Neutrophils equals s egs plus bands IMMGRAN# 0.0 0.0 - 0.1 x10(3)/mcL 06/07/2025 5:11 AM EDT [facility] Comment:Automated count of m etamyelocytes, myelocytes and promyelocytes. An absolute IG <0.1 is reported as 0.0. Lymph # 1.3 1.2 - 3.9 x10(3)/mcL 06/07/2025 5:11 AM EDT [facility] [place] # 0.8 0.3 - 0.9 x10(3)/mcL 06/07/2025 [...] [facility] [address] [place] [id number] * (ABNORMAL) BASIC METABOLIC PANEL (06/07/2025 5:09 [...] recommended by the National Kidney Foundation - [place] Society of Nephrology Task Force. Blood VENOUS BLOOD / Unknown Venipuncture / Unknown 06/07/2025 5:09 AM EDT 06/07/2025 5:09 AM EDT us Geo Sargentdevorah Merchant DO CHEMISTRY ORDERABLES Final Res ult Performing Organization Address [facility] Co de Phone Number [facility] [address] [place] [address] * (ABNORMAL) GLUCOSE METER POC (06/06/2025 9:21 [...] PEDRO LUIS Final Result Performing Organization Address [facility] Co de Phone Number [facility] [address] [place] [address] * (ABNORMAL) GLUCOSE METER POC (06/06/2025 4:50 [...] PEDRO LUIS Final Result Performing Organization Address City/[facility]/ZIP Co de Phone Number [facility] [address] [place] [address] * (ABNORMAL) GLUCOSE METER POC (06/06/2025 12:37 [...] PEDRO LUIS Final Result Performing Organization Address City/[facility]/ZIP Co de Phone Number [facility] [address] [place] [address] * (ABNORMAL) GLUCOSE METER POC (06/06/2025 7:53 [...] [facility] [address] [place] [address] * (ABNORMAL) BASIC METABOLIC PANEL (06/06/2025 5:26 [...] recommended by the National Kidney Foundation - [place] [employer] of Nephrology Task Force. Blood VENOUS BLOOD / Unknown Venipuncture / Unknown 06/06/2025 5:26 AM EDT 06/06/2025 5:26 AM EDT us Viral Sargent V, DO CHEMISTRY ORDERABLES Final Res ult [facility] [address] [place] [address] * (ABNORMAL) CBC WITH DIFF [...] [facility] [place] Percent 6.8 % 06/06/2025 5:30 AM EDT [facility] Eos Percent 1.8 % 06/06/2025 5:30 AM EDT [facility] Baso Percent 0.3 % 06/06/2025 5:30 AM EDT [facility] Neut # 9.1(H) 1.6 - 6.1 x10(3)/[facility] 06/06/2025 5:30 AM EDT [facility] Comment:Neutrophils equals s egs plus bands IMMGRAN# 0.1 0.0 - 0.1 x10(3)/[facility] 06/06/2025 5:30 AM EDT [facility] Comment:Automated count of m etamyelocytes, myelocytes and promyelocytes. An absolute IG <0.1 is reported as 0.0. Lymph # 1.8 1.2 - 3.9 x10(3)/[facility] 06/06/2025 5:30 AM EDT [facility] [place] # 0.8 0.3 - 0.9 x10(3)/[facility] 06/06/2025 5:30 AM EDT [facility] Eos# 0.2 0.0 - 0.5 x10(3)/[facility] 06/06/2025 5:30 AM EDT [facility] Baso # 0.0 0.0 - 0.1 x10(3)/[facility] 06/06/2025 5:30 AM EDT [facility] Blood VENOUS BLOOD / Unknown Venipuncture / Unknown 06/06/2025 5:26 AM EDT 06/06/2025 5:26 AM EDT us Viral Sargent V, DO HEMATOLOGY ORDERABLES Final Re sult [facility] [address] [place] [address] * (ABNORMAL) GLUCOSE METER POC (06/05/2025 8:23 PM EDT) [facility] Glucose Meter POC 184(H) 70 - 100 [...] PEDRO LUIS Final Result Performing Organization Address City/[facility]/ZIP Co de Phone Number [facility] [address] [place] [address] * (ABNORMAL) GLUCOSE METER POC (06/05/2025 5:14 [...] PEDRO LUIS Final Result Performing Organization Address City/[facility] Co de Phone Number [facility] [address] [place] [address] * (ABNORMAL) GLUCOSE METER POC (06/05/2025 12:00 [...] PEDRO LUIS Final Result Performing Organization Address City/[facility] Co de Phone Number [facility] [address] [place] [address] * (ABNORMAL) GLUCOSE METER POC (06/05/2025 7:52 [...] PEDRO LUIS Final Result Performing Organization Address [facility] de Phone Number [facility] [address] [place] [address] * (ABNORMAL) GLUCOSE METER POC (06/04/2025 9:05 [...] PEDRO LUIS Final Result Performing Organization Address [facility] Co de Phone Number [facility] [address] [place] [address] * (ABNORMAL) GLUCOSE METER POC (06/04/2025 5:06 [...] PEDRO LUIS Final Result Performing Organization Address City/[facility]/ZIP Co de Phone Number [facility] [address] [place] [address] * (ABNORMAL) GLUCOSE METER POC (06/04/2025 12:01 [...] PEDRO LUIS Final Result Performing Organization Address City/[facility]/ZIP Co de Phone Number [facility] [address] [place] [address] * (ABNORMAL) GLUCOSE METER POC (06/04/2025 8:52 [...] PEDRO LUIS Final Result Performing Organization Address City/[facility]/ZIP Co de Phone Number [facility] [address] [place] [address] * (ABNORMAL) GLUCOSE METER POC (06/03/2025 8:26 [...] PEDRO LUIS Final Result Performing Organization Address [facility] de Phone Number [facility] [address] [place] [address] * (ABNORMAL) GLUCOSE METER POC (06/03/2025 4:49 [...] PEDRO LUIS Final Result Performing Organization Address City/[facility]/ZIP Co de Phone Number [facility] [address] [place] [address] * (ABNORMAL) GLUCOSE METER POC (06/03/2025 11:16 [...] PEDRO LUIS Final Result Performing Organization Address City/[facility]/ZIP Co de Phone Number [facility] [address] [place] [address] * (ABNORMAL) GLUCOSE METER POC (06/03/2025 8:00 [...] [facility] [address] [place] [address] * (ABNORMAL) GLUCOSE METER POC (06/02/2025 9:00 [...] PEDRO LUIS Final Result Performing Organization Address City/[facility] Co de Phone Number [facility] [address] [place] [address] * (ABNORMAL) GLUCOSE METER POC (06/02/2025 4:25 [...] PEDRO LUIS Final Result Performing Organization Address City/[facility] de Phone Number [facility] [address] [place] [address] * (ABNORMAL) GLUCOSE METER POC (06/02/2025 12:17 [...] PEDRO LUIS Final Result Performing Organization Address City/[facility]/ZIP Co de Phone Number [facility] [address] [place] [address] * (ABNORMAL) GLUCOSE METER POC (06/02/2025 8:30 [...] PEDRO LUIS Final Result Performing Organization Address [facility] de Phone Number [facility] [address] [place] [address] * (ABNORMAL) GLUCOSE METER POC (06/01/2025 8:00 [...] PEDRO LUIS Final Result Performing Organization Address City/[facility] Co de Phone Number [facility] [address] [place] [address] * (ABNORMAL) GLUCOSE METER POC (06/01/2025 4:41 [...] PEDRO LUIS Final Result Performing Organization Address City/[facility]/ZIP Co de Phone Number [facility] [address] [place] [address] * (ABNORMAL) GLUCOSE METER POC (06/01/2025 12:17 [...] PEDRO LUIS Final Result Performing Organization Address City/[facility]/ZIP Co de Phone Number [facility] [address] [place] [address] * (ABNORMAL) GLUCOSE METER POC (06/01/2025 8:36 [...] PEDRO LUIS Final Result Performing Organization Address City/[facility] Co de Phone Number [facility] [address] [place] [address] * (ABNORMAL) GLUCOSE METER POC (05/31/2025 8:03 [...] PEDRO LUIS Final Result Performing Organization Address [facility] de Phone Number [facility] [address] [place] [address] * PARTIAL THROMBOPLASTIN TIME (05/31/2025 4:43 PM EDT) Pathologist [facility] PTT 31.8 25.7 - 36.8 second(s) 05/31/2025 [...] ORDERABLES Fi nal Result Performing Organization Address [facility] de Phone Number [facility] [address] [place] [address] * (ABNORMAL) PT / INR (05/31/2025 4:43 [...] ORDERABLES Fi nal Result Performing Organization Address [facility] de Phone Number [facility] [address] [place] [address] * (ABNORMAL) CBC WITH DIFF [...] 80.0 - 100.0 fL 05/31/2025 4:51 PM [facility] MCH 29.6 26.0 - 34.0 pg 05/31/2025 4:51 PM [facility] MCHC 31.6 30.7 - 35.5 g/dL 05/31/2025 4:51 PM [facility] RDW 12.1 <=14.9 % 05/31/2025 4:51 PM [facility] Platelet 291 155 - 369 x10(3)/mcL 05/31/2025 4:51 PM [facility] MPV 9.2 8.8 - 12.5 fL 05/31/2025 4:51 PM [facility] Neut Percent 71.9 % 05/31/2025 4:51 PM [facility] Comment:Neutrophils equals s egs plus bands Imm Gran% 0.2 % 05/31/2025 4:51 PM [facility] Comment:Automated count of m etamyelocytes, myelocytes and promyelocytes. Lymph Percent 13.9 % 05/31/2025 4:51 PM [facility] [place] Percent 12.8 % 05/31/2025 4:51 PM [facility] Eos Percent 0.9 % 05/31/2025 4:51 PM [facility] Baso Percent 0.3 % 05/31/2025 4:51 PM [facility] Neut # 8.3(H) 1.6 - 6.1 x10(3)/mcL 05/31/2025 4:51 PM [facility] Comment:Neutrophils equals s egs plus bands IMMGRAN# 0.0 0.0 - 0.1 x10(3)/mcL 05/31/2025 4:51 PM [facility] Comment:Automated count of m etamyelocytes, myelocytes and promyelocytes. An absolute IG <0.1 is reported as 0.0. Lymph # 1.6 1.2 - 3.9 x10(3)/mcL 05/31/2025 4:51 PM [facility] [place] # 1.5(H) 0.3 - 0.9 x10(3)/mcL 05/31/2025 4:51 PM [facility] Eos# 0.1 0.0 - 0.5 x10(3)/mcL 05/31/2025 4:51 PM EDT [facility] Baso # 0.0 0.0 - 0.1 x10(3)/mcL 05/31/2025 4:51 PM EDT [facility] Blood VENOUS BLOOD / Unknown Venipuncture / Unknown 05/31/2025 4:43 PM EDT 05/31/2025 4:47 PM EDT Hugh Zamarripa MD HEMATOLOGY ORDERABLES Fi nal Result Performing Organization Address City/[facility]/ZIP Co de Phone Number [facility] [address] [place] [address] * (ABNORMAL) GLUCOSE METER POC (05/31/2025 4:37 [...] PEDRO LUIS Final Result Performing Organization Address City/[facility]/ZIP Co de Phone Number [facility] [address] [place] [address] * (ABNORMAL) GLUCOSE METER POC (05/31/2025 11:41 [...] PEDRO LUIS Final Result Performing Organization Address City/[facility] Co de Phone Number [facility] [address] [place] [address] * (ABNORMAL) GLUCOSE METER POC (05/31/2025 8:12 [...] PEDRO LUIS Final Result Performing Organization Address [facility] de Phone Number [facility] [address] [place] [address] * (ABNORMAL) GLUCOSE METER POC (05/30/2025 7:58 [...] PEDRO LUIS Final Result Performing Organization Address City/[facility]/ZIP Co de Phone Number [facility] [address] [place] [address] * (ABNORMAL) GLUCOSE METER POC (05/30/2025 5:07 [...] [facility] [address] [place] [address] * CT ABDOMEN PELVIS HEMATURIA/RENAL MASS PROTOCOL [...] - 1.3 mg/dL 05/30/2025 1:28 PM EDT [facility] Blood BLOOD SPECIMEN / Unknown 05/30/2025 1:26 PM EDT 05/30/2025 1:28 PM EDT Hugh Zamarripa MD POINT OF CARE TEST ORDER PEDRO LUIS Final Result [facility] [address] [place] [address] [id number] * (ABNORMAL) GLUCOSE METER POC (05/30/2025 9:02 [...] [facility] [address] [place] [address] * (ABNORMAL) GLUCOSE METER POC (05/29/2025 9:25 [...] [facility] [address] [place] [address] documented in this encounter Visit Diagnoses Diagnosis Fractured hip, left, closed, initial encounter (HCC)- Primary Resides in long-term facility Coronary artery disease involving [place] coronary artery of [place] heart without angina pectoris Pneumonia due to infectious organism, unspecified laterality, unspecified part of lung Closed fracture of left femur with routine healing, unspecified fracture morphology, unspecified portion of femur, subsequent encounter Type 2 diabetes mellitus without complication, without long-term current use of insulin ([facility]) Prophylactic measure Thrush Candidiasis of mouth Excoriation [...] Unspecified essential hypertension Coronary artery disease involving [place] coronary artery of [place] heart without angina pectoris Adrenal adenoma, left Left renal mass Unspecified disorder of kidney and ureter Left lower lobe pulmonary nodule Hypokalemia Hypopotassemia Hypomagnesemia Disorders of magnesium metabolism Shortness of breath documented in this encounter Admitting Diagnoses Diagnosis Fractured hip, left, closed, initial encounter ([facility]) documented in this encounter Administered Medications Inactive [...] in 24 hours., Dx: 1. Resides in long-term facilityIndications:R esides in long-term facility Given 06/09/2025 11:23 AM EDT 650 [...] Discontinued, Dx: 1. Coronary artery disease involving [place] coronary artery of [place] heart without angina pectorisIndications:C oronary artery disease involving [place] coronary artery of [place] heart without angina pectoris Given 06/12/2025 9:09 AM EDT 81 mg cholecalciferol (vitamin D3) tablet 1,000 Units 1,000 Units, Oral, DAILY, First dose on Thu05/30/25 at 0900, Until Discontinued, Dx: 1. Resides in long-term facilityIndications:R esides in long-term facility Given 06/12/2025 9:10 AM EDT 1,000 Units citalopram (CeleXA) tablet 5 mg 5 mg, Oral, 2 TIMES DAILY, First dose on Thu05/29/25 at 2115, Until Discontinued, Dx: 1. Resides in long-term facilityIndications:lila qiu depressive disorder Given 06/12/2025 9:10 AM EDT 5 mg clopidogreL (PLAVIX) tablet 75 mg 75 mg, Oral, DAILY, First dose on Thu05/30/25 at 0900, Until Discontinued, Dx: 1. Coronary artery disease involving [place] coronary artery of [place] heart without angina pectorisIndications:C oronary artery disease involving [place] coronary artery of [place] heart without angina pectoris Given 06/12/2025 9:09 [...] complication, without long-term current use of insulin ([facility]) enoxaparin (LOVENOX) injection 40 mg 40 mg, Subcutaneous, DAILY - LMWH/Xa, First dose on Thu05/30/25 at 0745, Until Discontinued, Dx: 1. Resides in long-term facilityIndications:R esides in long-term facility Given 05/31/2025 11:47 AM EDT 40 mg Abdominal Tissue fluocinonide (LIDEX) 0.05 % cream Topical, 2 TIMES DAILY PRN, Starting on Thu05/30/25 at 0607, Until Thu06/12/25 at 1525, Other, skin irritation, Application site: skin irritation, Dx: 1. Resides in long-term facilityIndications:R capri in long-term facility fosfomycin (MONUROL) packet 3 g 3 [...] use. Supplied by Nutrition ServicesIndications:R capri in long-term facility,Closed fracture of left femur with routine [...] use. Supplied by Nutrition ServicesIndications:Gillian farooq in long-term facility,Closed fracture of left femur with routine [...] , Dx: 1. Coronary artery disease involving [place] coronary artery of [place] heart without angina pectorisIndications:C oronary artery disease involving [place] coronary artery of [place] heart without angina pectoris Given 06/12/2025 9:07 [...] at 1525, Sleep, Dx: 1. Resides in long-term facilityIndications:R esides in long-term facility Given 06/10/2025 9:52 PM EDT 5 mg metFORMIN (GLUCOPHAGE XR) ER tablet 500 mg 500 mg, Oral, 2 TIMES DAILY WITH MEALS, First dose on Thu05/30/25 at 0800, Until Discontinued, Take with food., Dx: 1. Resides in long-term facilityIndications:t ype 2 diabetes mellitus Given 06/12/2025 9:10 AM EDT 500 mg metoprolol (LOPRESSOR) tablet 25 mg 25 mg, Oral, 2 TIMES DAILY, First dose on Thu05/29/25 at 2115, Until Discontinued, Preferably taken with or immediately following meals. Take consistently with relation to food., Dx: 1. Resides in long-term facilityIndications:h ypertension Given 06/12/2025 9:08 AM EDT [...] crush or chew, Dx: 1. Resides in long-term facilityIndications:h eartburn Given 06/11/2025 8:43 PM EDT [...] unrelieved by Senokot-S, Dx: 1. Resides in long-term facilityIndications:R esides in long-term facility potassium chloride (KLOR-CON) tablet 20 mEq [...] 2115, Until Discontinued, Dx: 1. Resides in long-term facilityIndications:R esides in long-term facility Given 06/11/2025 8:43 PM EDT 5 mg Saccharomyces boulardii (FLORASTOR) capsule 250 mg 250 mg, Oral, 2 TIMES DAILY, First dose on Thu05/30/25 at 0900, Until Discontinued, If for feeding tube administration, open capsule/packet outside of patient's room and dissolve contents in 8-12 oz. of liquid, Dx: 1. Resides in long-term facilityIndications:R esides in long-term facility Given 06/12/2025 9:10 AM EDT 250 mg senna-docusate (SENOKOT-S) 8.6-50 mg per tablet 2 Tablet 2 Tablet, Oral, 2 TIMES DAILY PRN, Starting on Thu05/29/25 at 1833, Until Thu06/12/25 at 1525, Constipation, Use first for constipation, Dx: 1. Resides in long-term facilityIndications:R esides in long-term facility sodium chloride 0.9 % 250 mL [...] Reason: Other - Comment: PRN dose of [place] given prior) 06 (Given - Provider: Stephany [...] not available)0851 (Given - Provider: Clarisa Strong, [employer]ER)1104 (Given - Provider: Clarisa Strong [employer] - Comment: Pt. requested tx)1601 (Given - Provider: Clarisa Strong CRT)2006 (Given - Provider: Kristian Arce CRT) 0900 (Given - Provider: Clarisa Strong [employer]ER)1236 (Not Given - Provider: Clarisa Strong [employer] - Reason: Patient not available - Comment: eating)1252 (Not Given - Provider: Clarisa Scheid-Lassiter, [employer]ER - Reason: Patient Declined - Comment: confused, strongly refused tx.)1637 (Given - Provider: Clarisa Strong, [employer]ER)2052 (Given - Provider: Kristian Arce, [employer]ER) 08 (Given - Provider: Chery Benites) aspirin chewable tablet 81 mg 81 mg, Oral, DAILY, First dose on Thu05/30/25 at 0900, Until Discontinued, Dx: 1. Coronary artery disease involving [place] coronary artery of [place] heart without angina pectoris 08 (Given - Provider: Janet Porras RN) 932 (Given - Provider: Janet Porras RN) 09 (Given - Provider: Riki Khan, RN) cholecalciferol (vitamin D3) tablet 1,000 Units 1,000 Units, Oral, DAILY, First dose on Thu05/30/25 at 0900, Until Discontinued, Dx: 1. Resides in long-term facility 08 (Given - Provider: Janet Porras RN) 932 (Given - Provider: Janet Porras RN) 09 (Given - Provider: Riki Khan, RN) citalopram (CeleXA) tablet 5 mg 5 mg, Oral, 2 TIMES DAILY, First dose on Thu05/29/25 at 2115, Until Discontinued, Dx: 1. Resides in long-term facility 0822 (Given - Provider: Janet Porras RN)2151 (Given - Provider: Stephany Lopez LPN) 932 (Given - Provider: Jnaet Porras RN)2043 (Given - Provider: Stephany Lopez LPN) 0910 (Given - Provider: Riki Khan, RN) clopidogreL (PLAVIX) tablet 75 mg 75 mg, Oral, DAILY, First dose on Thu05/30/25 at 0900, Until Discontinued, Dx: 1. Coronary artery disease involving [place] coronary artery of [place] heart without angina pectoris 08 (Given - Provider: Janet Porras RN) 932 (Given - Provider: Janet Porras RN) 0909 (Given - Provider: Riki [...] dose by 20%. Waste Sort Code = [facility], Dx: 1. Type 2 diabetes mellitus without complication, without long-term current use of insulin (HCC) 1800 (Given - Provider: Janet Porras RN) 181 (Given - Provider: Janet Porars RN) PRABHAKAR powder oral supplement 1 Packet [...] , Dx: 1. Coronary artery disease involving [place] coronary artery of [place] heart without angina pectoris 08 (Given - [...] Take with food., Dx: 1. Resides in long-term facility 08 (Given - Provider: Janet Porras [...] relation to food., Dx: 1. Resides in long-term facility 08 (Given - Provider: Janet Porras RN)2151 (Given - Provider: Stephany Lopez LPN) 09 (Given - Provider: Janet Porras RN)2043 (Given - Provider: Stephany Lopez LPN) 09 (Given - Provider: Riki Khan RN) miconazole (MICATIN) 2 % powder Topical, 2 TIMES DAILY, 84 doses, First dose on Thu06/08/25 at 1045, Last dose on Thu07/19/25 at 2100, Application site: [facility], Dx: 1. Excoriation 0836 (Given - Provider: Janet Porras RN) 30 (Given - Provider: Stephany Lopez LPN)0935 (Given - Provider: Janet Porras RN)2051 [...] crush or chew, Dx: 1. Resides in long-term facility 2151 (Given - Provider: Stephany Lopez [...] SANTOS) 1200 (Not Given - Provider: Janet Porras RN - Reason: Patient Declined) rosuvastatin (CRESTOR) tablet 5 mg 5 mg, Oral, NIGHTLY, First dose on Thu05/29/25 at 2115, Until Discontinued, Dx: 1. Resides in long-term facility 2151 (Given - Provider: Stephany Lopez LPN) 2042 (Given - Provider: Stephany Lopez LPN) Saccharomyces boulardii (FLORASTOR) capsule 250 mg 250 mg, Oral, 2 TIMES DAILY, First dose on Thu05/30/25 at 0900, Until Discontinued, If for feeding tube administration, open capsule/packet outside of patient's room and dissolve contents in 8-12 oz. of liquid, Dx: 1. Resides in long-term facility 0820 (Given - Provider: Janet Porras [...] complication, without long-term current use of insulin ([facility]) fluocinonide (LIDEX) 0.05 % cream Topical, 2 TIMES DAILY PRN, Starting on Thu05/30/25 at 0607, Until Thu06/12/25 at 1525, Other, skin irritation, Application site: skin irritation, Dx: 1. Resides in long-term facility glucagon (GLUCAGEN) injection 1 mg(Linked Group [...] complication, without long-term current use of insulin ([facility]) HYDROcodone-acetaminophen (NORCO) 5-325 mg per tablet 1 [...] at 1525, Sleep, Dx: 1. Resides in long-term facility 2151 (Given - Provider: Stephany Lopez [...] unrelieved by Senokot-S, Dx: 1. Resides in long-term facility senna-docusate (SENOKOT-S) 8.6-50 mg per tablet 2 Tablet 2 Tablet, Oral, 2 TIMES DAILY PRN, Starting on Thu05/29/25 at 1833, Until Thu06/12/25 at 1525, Constipation, Use first for constipation, Dx: 1. Resides in long-term facility sterile water injection 1 mL(Linked Group 4) 1 mL, Injection, PRN, Starting on Thu05/30/25 at 1723, Until Thu06/12/25 at 1525, Use for drug dilution, Use to dilute and administer glucagon injection, Insulin Calculator, Dx: 1. Type 2 diabetes mellitus without complication, without long-term current use of insulin ([facility]) Linked Groups Order Group 1: albuterol-ipratropium (DUO-NEB) [...] complication, without long-term current use of insulin ([facility]) And insulin aspart U-100 (NovoLOG) injection 0-40 [...] complication, without long-term current use of insulin ([facility]) Group 3: magnesium sulfate in dextrose 5% [...] complication, without long-term current use of insulin ([facility]) And sterile water injection 1 mLJump to med 1 mL, Injection, PRN, Starting on Thu05/30/25 at 1723, Until Thu06/12/25 at 1525, Use for drug dilution, Use to dilute and administer glucagon injection, Insulin Calculator, Dx: 1. Type 2 diabetes mellitus without complication, without long- term current use of insulin ([facility]) Group 5: ondansetron (ZOFRAN) injection 4 mgJump [...] IP CONSULT TO PHYSICAL THERAPY 1 05/29/2025 QA AUDITOR Count Last Ordered Date First Orde red Date IP CONSULT TO SPEECH THERAPY 1 06/05/2025 ONGOING SPEECH THERAPY PER PLAN OF CARE 1 1 Admission Count Last Ordered Date First Orde red Date ADMIT 1 05/29/2025 Discharge Count Last Ordered Date First Orde red Date DISCHARGE PATIENT 1 06/12/2025 documented in this encounter
--- NOTE | 2025-07-06 13:47 | XR_ITS ---
FINAL REPORT CLINICAL HISTORY: left hip follow up, left hip pain COMPARISON: 06/12/2025 FINDINGS: AP and frog leg views of the left hip were obtained. There are changes of a left total hip arthroplasty. The hardware is intact. There is no acute fracture or dislocation. Degenerative changes noted in the right hip. Soft tissues are unremarkable. IMPRESSION: Left total hip arthroplasty, with intact hardware. Reviewed, Interpreted and Dictated by Prudence Osborne MD Transcribed by Ana Fall Authenticated and [facility]
--- OUTSIDE RECORDS SUMMARY | 2025-07-06 13:51 | XMS_ITS | Clinical Summary ---
Author Organization [facility] Address [address] [place] [address] Phone Care Team Providers Care Transaction Processor Name Role Phone Unavailable Primary Care Provider [...] melatonin 5 mg Oral TabletIndicatio ns:Resides in fdc facility Take 1 Tablet by mouth nightly as needed for Sleep. 025 Active Saccharomyces boulardii (FLORASTOR) 250 mg Oral CapsuleIndicati ons:Resides in fdc facility Take 1 Capsule by mouth 2 [...] -Continue losartan Coronary artery disease invo lving [place] coronary artery of [place] heart without angina pectoris 05/30/2025 Assessment & [...] 11:24 AM EDT Hospital Encounter [facility] [address] [place] [phone] Hugh Zamarripa MD Coronary artery disease involving [place] coronary artery of [place] heart without angina pectoris (Primary Dx); Resides in fdc facility; Pneumonia due to infectious organism, unspecified [...] resultswithin the time period is included. Pathologist [facility] Glucose Meter POC 125(H) 70 - 100 [...] [facility] [address] [place] [address] * (ABNORMAL) CBC (06/12/2025 5:33 AM EDT) [...] ORDERABLES Fi nal Result Performing Organization Address [facility] Co de Phone Number [facility] [address] [place] [address] * MAGNESIUM LEVEL (06/12/2025 5:33 AM EDT) Only the most recent of3 resultswithin the time period is included. Magnesium 1.7 1.6 - 2.4 mg/dL 06/12/2025 5:55 AM EDT [facility] Blood VENOUS BLOOD / Unknown Venipuncture / Unknown 06/12/2025 5:33 AM EDT 06/12/2025 5:33 AM EDT Jennifer Fontana APRN CHEMISTRY ORDERABLES Fin al Result Performing Organization Address [facility] de Phone Number [facility] [address] [place] [address] * (ABNORMAL) BASIC METABOLIC PANEL (06/12/2025 5:33 [...] recommended by the National Kidney Foundation - Citizen Of [place] Society of Nephrology Task Force. Blood VENOUS BLOOD / Unknown Venipuncture / Unknown 06/12/2025 5:33 AM EDT 06/12/2025 5:33 AM EDT Jennifer Fontana APRN CHEMISTRY ORDERABLES Fin al Result Performing Organization Address [facility] Co de Phone Number [facility] [address] [place] [address] * EXTRA LAVENDER (06/11/2025 6:17 AM EDT) Blood VENOUS BLOOD / Unknown Venipuncture / Unknown 06/11/2025 6:17 AM EDT 06/11/2025 9:04 AM EDT Hugh Zamarripa MD HEMATOLOGY ORDERABLES Fi nal Result Performing Organization Address [facility] de Phone Number [facility] [address] [place] [address] * REPEAT LACTIC ACID (06/11/2025 6:17 AM [...] [facility] [address] [place] [address] * BLOOD CULTURE (NO STAIN) (06/10/2025 5:21 PM EDT) Only the most recent of2 resultswithin the time period is included. Culture Result No Growth at 120 hours. BLOOD CULTURE (NO STAIN) 06/16/2025 11:00 AM EDT [facility] Blood VENOUS BLOOD / Unknown Venipuncture / Unknown 06/10/2025 5:21 PM EDT 06/10/2025 5:23 PM EDT us Jennifer Fontana APRN MICROBIOLOGY - GENERAL O RDERABLES Final Result [facility] [address], [place] [address] * PROCALCITONIN (06/10/2025 11:52 AM EDT) Procalcitonin 0.08 <=0.49 ng/mL 06/10/2025 7:35 PM EDT [facility] [employer] Blood VENOUS BLOOD / Unknown Venipuncture / Unknown 06/10/2025 11:52 AM EDT 06/10/2025 12:00 PM EDT Narrative [facility]REF[facility] [employer] - 06/10/2025 7:35 PM EDT Procalcitonin <0.50 [...] [facility]/ZIP Co de Phone Number [facility] [address], [address] [place], [place] [id number] * (ABNORMAL) LACTIC ACID (06/10/2025 11:52 AM EDT) Lactic Acid 2.1(H) 0.5 - 1.9 mmol/L 06/10/2025 12:13 PM EDT [facility] Blood VENOUS BLOOD / Unknown Venipuncture / Unknown 06/10/2025 11:52 AM EDT 06/10/2025 12:00 PM EDT Jennifer Fontana APRN CHEMISTRY ORDERABLES Fin al Result Performing Organization Address [facility] Co de Phone Number [facility] [address] [place] [address] * XR CHEST AP PORTABLE [...] 5.0 - 8.0 pH 06/07/2025 9:08 PM [facility] UA Protein Trace(A) Negative mg/dL 06/07/2025 9:08 PM [facility] UA Urobilinogen 0.2 <=1 mg/dL 9:08 PM EDT [facility] UA Bili Negative Negative 06/07/2025 9:08 PM EDT [facility] UA Nitrite Negative Negative 06/07/2025 9:08 PM [facility] UA Leuk Est Small(A) Negative 06/07/2025 9:08 PM [facility] UA Spec Grav 1.025 1.001 - 1.035 no units 06/07/2025 9:08 PM [facility] Comment:Reference range tessie d for [...] URINE ORDERABLES Final Result Performing Organization Address [facility] Co de Phone Number [facility] [address] [place] [address] * EXTRA LAUGHLIN URINE CX (06/07/2025 8:48 PM EDT) Urine STRUCTURE OF URINARY TRACT PROPER / Unknown 06/07/2025 8:48 PM EDT 06/07/2025 8:59 PM EDT us Viral Sargent V, DO MICROBIOLOGY - GENERAL ORDERAB LES Final Result Performing Organization Address [facility] Co de Phone Number [facility] [address] [place] [address] * (ABNORMAL) URINE CULTURE (NO STAIN) (06/07/2025 [...] MICROBIOLOGY - GENERAL ORDERAB LES Final Result [facility] [address] [facility] , [place] [address] * XR HIP LEFT AP LATERAL W [...] 3.7 - 10.3 x10(3)/mcL 06/07/2025 5:11 AM [facility] RBC 3.92 3.90 - 5.20 x10(6)/mcL 06/07/2025 5:11 AM [facility] Hgb 11.8 11.2 - 15.7 g/dL 06/07/2025 5:11 AM [facility] Hct 36.3 34.0 - 45.0 % 06/07/2025 5:11 AM [facility] MCV 92.6 80.0 - 100.0 fL 06/07/2025 5:11 AM [facility] MCH 30.1 26.0 - 34.0 pg 06/07/2025 5:11 AM [facility] MCHC 32.5 30.7 - 35.5 g/dL 06/07/2025 5:11 AM [facility] RDW 12.5 <=14.9 % 06/07/2025 5:11 AM [facility] Platelet 341 155 - 369 x10(3)/mcL 06/07/2025 5:11 AM [facility] MPV 9.0 8.8 - 12.5 fL 06/07/2025 5:11 AM [facility] Neut Percent 79.0 % 06/07/2025 5:11 AM [facility] Comment:Neutrophils equals s egs plus bands Imm Gran% 0.4 % 06/07/2025 5:11 AM [facility] Comment:Automated count of m etamyelocytes, myelocytes and promyelocytes. Lymph Percent 11.7 % 06/07/2025 5:11 AM [facility] Guadalupe Percent 6.9 % 06/07/2025 5:11 AM [facility] Eos Percent 1.5 % 06/07/2025 5:11 AM [facility] Baso Percent 0.5 % 06/07/2025 5:11 AM [facility] Neut # 8.9(H) 1.6 - 6.1 x10(3)/mcL 06/07/2025 5:11 AM [facility] Comment:Neutrophils equals s egs plus bands IMMGRAN# 0.0 0.0 - 0.1 x10(3)/mcL 06/07/2025 5:11 AM EDT [facility] Comment:Automated count of m etamyelocytes, myelocytes and promyelocytes. An absolute IG <0.1 is reported as 0.0. Lymph # 1.3 1.2 - 3.9 x10(3)/mcL 06/07/2025 5:11 AM EDT [facility] Guadalupe # 0.8 0.3 - 0.9 x10(3)/mcL 06/07/2025 [...] [facility] [address] [place] [address] * PARTIAL THROMBOPLASTIN TIME (05/31/2025 [...] ORDERABLES Fi nal Result Performing Organization Address [facility] de Phone Number [facility] [address] [place] [address] * (ABNORMAL) PT / INR (05/31/2025 4:43 [...] ORDERABLES Fi nal Result Performing Organization Address [facility] de Phone Number [facility] [address] [place] [address] * CT ABDOMEN PELVIS HEMATURIA/RENAL MASS PROTOCOL [...] the ordering clinician. us Hugh Zamarripa MD [facility] ORDERABLES Final Result * CREATININE ISTAT (05/30/2025 1:26 PM EDT) Creatinine-iST AT 0.9 0.6 - 1.3 mg/dL 05/30/2025 1:28 PM EDT [facility] Blood BLOOD SPECIMEN / Unknown 05/30/2025 1:26 PM EDT 05/30/2025 1:28 PM EDT Hugh Zamarripa MD POINT OF CARE TEST ORDER PEDRO LUIS Final Result [facility] [address] [place] [address] from Last 3 Months Insurance [place]ID [place] Member Subscriber Plan / Payer (Ef fective 2005-Present) Name:Patricia Hills Relation to Subscriber:Self Name:Patricia Hills Payer ID:Not on file Group ID:Not on file Type:Not on file Address: [address] DUAL ADVANTAGE [facility] [place]ICAID [place] AETNA DUAL ADVANTAGE O [facility] [place]ICAID [place] Advance Directives For more information, please contact: [phone] * Full Code (Latest Code Status on File) Date Activated Date Inactivated Comments 05/30/2025 6:09 AM 06/12/2025 3:25 PM
--- OUTSIDE RECORDS SUMMARY | 2025-07-06 13:52 | XMS_ITS | Encounter Summary ---
Author Organization Healthcare Address [address] [place] [address] Care Team Providers Care Bolt Sorter Name Role Phone Pcp, No Primary Care Provider Unavailabl e Encounter Details Date Type Department Care Team (Late st Contact Info) Description 05/12/2024 Orders Only External Location [address] [place] [address] Charlotte Jung, [address] [place] [address] Social History Tobacco Use Types [...] on filedocumented in this encounter Care Teams Bolt Sorter Relationship Specialty Start Date End Date Pcp, No [address] [place] [address] PCP - General Family Medicine 08/10/24 documented as of this encounter
--- OUTSIDE RECORDS SUMMARY | 2025-07-06 13:52 | XMS_ITS | Encounter Summary ---
Author Organization Healthcare Address [address] [place] [address] Care Team Providers Care Melting Operator Name Role Phone Pcp, No Primary Care Provider Unavailabl e Encounter Details Date Type Department Care Team (Late st Contact Info) Description 05/12/2024 Orders Only External Location [address] [place] [address] Charlotte Jung, [address] [place] [address] Social History Tobacco Use Types [...] on filedocumented in this encounter Care Teams Melting Operator Relationship Specialty Start Date End Date Pcp, No [address] [place] [address] PCP - General Family Medicine 08/10/24 documented as of this encounter
--- OUTSIDE RECORDS SUMMARY | 2025-07-06 13:52 | XMS_ITS | Clinical Summary ---
Author Organization [facility] Address [address] [id number] Care Team Providers Care Special Needs Caregiver Name Role Phone Pcp, No Primary Care [...] (one) time each day. Active nystatin (Mycostatin) 397967 UNIT/ML suspension Take 5 mL (500,000 Units) [...] or (1 - 1-dose 75+ series) 11/22/2015 [id number]-35 Vaccine (1 - season) 2025 UKY-Influenza Vaccine [...] Patient has decision-making capacity? Yes Care Teams Special Needs Caregiver Relationship Specialty Start Date End Date Pcp, No [address] [place] [address] PCP - General Family Medicine 08/10/24
--- OUTSIDE RECORDS SUMMARY | 2025-07-06 13:52 | XMS_ITS | Encounter Summary ---
Author Organization [facility] Address [address] [id number] Care Team Providers Care Diamond Merchant Name Role Phone Pcp, No Primary Care Provider Unavailabl e Reason for Referral * Consultation (Urgent) - Authorized Specialty Diagnoses / Procedures Referred By Contact Referred To Contact Vascular Surgery / Comprehensive Vascular Clinic Diagnoses Stenosis of carotid artery, unspecified laterality Prasad León MD [facility] [place] [address] Phone: tel:[phone] fax:[phone] [facility] [address] [facility] 5[address] [place] [address] Phone: tel: fax: Referral ID Status Reason Start Date Expiration Date Visits Requested Visits Authorized [id number] Authorized Specialty Services Required 05/17/2024 11/16/2025 1 1 Encounter Details Date Type Department Care Team (Late st Contact Info) Description 05/17/2024 Community Orders Community Practice [address] [place] [address] Prasad León MD [address] [place] [address] Stenosis of carotid artery, unspecified [...] Primary documented in this encounter Care Teams Diamond Merchant Relationship Specialty Start Date End Date Pcp, Sonal [address] [place] [address] PCP - General Family Medicine 08/10/24 documented as of this encounter
--- OUTSIDE RECORDS SUMMARY | 2025-07-06 13:52 | XMS_ITS | Data Portability ---
Author Organization [facility] Address [address] [facility] [address] [place] [address] Care Team Providers Care Wire Bound Box Machine Operator Name Role Phone ALETHA ROBERTSON Shank Skinner SEN REICH JR General Surgeon MOOKIE PEREZ [...] arter y No observ ation record ed. [email or web address] [address], [place], [address], 06/21/2024 11:05:07 Result Notes None recorded. 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 2023 SEN REICH JR, MD [address] [place] [address], [address], [facility] 13:00:58 Tobacco dependence syndrome 15275207 Active 2023 SEN REICH JR, MD [address] [place] [address], [phone], [facility] 13:01:13 Arthritis 4783988 Active 2023 [place] Stephanie [facility] 13:17:13 Hyperlipide alfonso 36808783 Active 2023 [facility] 13:17:27 Type 2 diabetes mellitus 13923058 Active 2023 [facility] 13:20:26 Nodule of lung 096511148 Active 2023 [place] Stephanie [facility] 13:22:04 Calcificati on of coronary artery 375457525 Active 2023 [facility] 13:22:35 Vitamin D deficiency 90195308 Active 2023 [place] Stephanie [facility] 13:22:53 Hypertensiv e disorder 42777360 Active 2023 [place] Stephanie [facility] 13:23:11 Notes:thyroid nodule Problem Notes None recorded. Procedures Surgical History Date Name Laterality Status Provider Name and Address Organization Details Recorded Time Cholecystectomy completed [facility] 06/09/2024 13:16:44 Imaging Results None recorded. Procedure Notes None recorded. Medical Equipment None Reported. Allergies Allergen ID Allergen Name Allergen Category Reaction Reaction Severity Criticality Documentation Date Start Date Code Code System Note Provider Name and Address Organization Details Recorded Time 352111 Altocor medicatio n Not available Not available Not available 06/09/2024 40258 0 RxNorm Cecille Brown [facility] 11:57:40 127115 Product containin g penicilli n (product) medicatio n Not available Not available Not available 06/09/2024 87761 8001 SNOMED [facility] 11:57:51 847678 Lescol medicatio n Not available Not available Not available 06/09/2024 00828 2 RxNorm Cecille Brown null, [facility] 4 11:58:33 024888 Cipro medicatio n Not available Not available Not available 06/09/202475499 3 RxNorm Cecille Brown null, [facility] 4 11:58:41 373639 Levaquin medicatio n Not available Not available Not available 06/09/2024 27054 2 [facility] 11:58:52 334079 Medicinal product containin g nitrofura n derivativ e and acting as antibacte rial agent (product) medicatio n Not available Not available Not available 06/09/2024 53677 2000 SNOMED [facility] 12:28:38 104151 nitrofura ntoin medicatio n Not available Not available Not available 06/09/2024 7454 Rx[facility] 12:00:55 548409 Macrobid medicatio n Not available Not available Not available 06/09/2024 82388 1 [facility] 12:01:01 591996 Avelox medicatio n Not available Not available Not available 06/09/2024 40729 6 RxNorm [facility]ruzito [facility] 4 12:01:10 173212 Ceclor medicatio n Not available Not available Not available 06/09/202423157 5 RxNorm Cecillecruzito Brown null, [facility] 4 12:01:20 863972 clarithro mycin medicatio n Not available Not available Not available 06/09/202406231 [facility] 12:02:53 034690 Marcaine medicatio n Not available Not available Not available 06/09/2024 58631 97 RxNorm [facility] 12:03:30 118538 Kenalog medicatio n Not available Not available Not available 06/09/2024 7 Rx[facility] 12:03:41 844087 Biaxin medicatio n Not available Not available Not available 06/09/2024 9 [facility] 12:04:25 295168 Invokana medicatio n Not available Not available Not available 06/09/2024 14601 64 RxNorm [facility] 12:06:11 290902 Keflex medicatio n Not available Not available Not available 06/09/202403101 7 [facility] 12:06:44 603933 hydrochlo rothiazid e medicatio n Not available Not available Not available 06/09/2024 5487 [facility] 12:07:37 141184 dexametha sone medicatio n Not available Not available Not available 06/09/2024 3264 RxNorm Cecille Brown [facility] 12:08:02 901559 erythromy sumaya medicatio n Not available Not available Not available 06/09/2024 4053 [facility] 12:08:29 127778 brompheni ramine Not available Not available Not available Not available 06/09/2024 1767 [facility] 12:29:50 Medications Name Sig Start [...] 06/09/2024 157.48 cm 68 /min 128/69 mm[Hg] [facility] 06/09/2024 12:16:41 Social History None recorded. Functional Status None recorded. Mental Status None recorded. Family History Nothing Reported. Medical History Condition Response Coronary Artery Disease N COPD Y Stroke N Crohn's Disease N Kidney Disease N Gallbladder Disease Y Asthma N Thyroid Disease N Liver Disease N Colon Polyps N Diabetes Y Congestive Heart Failure (CHF) N Diverticulitis N Gynecological HistoryNo gynecological history recorded. Obstetrics History GPAL:G 0 P 0 0 0 0 Past Encounters Encounter ID Performer Location Encounter Start Date Encounter Closed Date Diagnosis/Indication Diagnosis SNOMED-CT Code Diagnosis ICD10 Code Diagnosis IMO Codes Diagnosis Note [id number] SEN REICH JR, MD GENERAL SURGERY [address] [place] [address] 06/09/2024 11:28:36 06/10/2024 10:23:50 Left carotid artery stenosis 7064191325 81591 I65.22 Asymptomat ic left carotid artery stenosis. Check carotid duplex scan.Jose Francisco nue aspirin PlavixCaro tid duplex scan at [facility] shows mild stenosis right and 50-69% stenosis left internal carotid artery. Repeat carotid duplex scan 6 months. Neoplasm o f parotid gland 799566840 D49.0 Benign on fine-needl e aspiration Tobacco de pendence syndrome 89266347 F17.200 Needs cessation Health Concerns Section Related Observation LastModified by Organization Detai ls LastModified Time None Recorded Concern Status LastModified by Organization Details LastModified Time None Recorded Advance Directives Directive None Recorded Payers Insurance Date Sequence Insurance Name Policy Number Policy Richards Covered Member ID Richards Member ID Guarantor Name 06/10/2024 1 [employer] (MEDICARE REPLACEMENT/ ADVANTAGE - HMO) [id number] Patricia Hills [id number] Patricia Hills 06/10/2024 2 MED[place]ID-[facility] CHOICES - FFS/TRADITIO NAL Patricia Hills [id number] Patricia Hills Notes Date Note Type Note [...] memory loss SEN REICH JR, MD [address] [facility] [place], [address], [facility] 06/21/2024 08:37:58 OBGyn Episode No OBEpisode recorded.
--- OUTSIDE RECORDS SUMMARY | 2025-08-21 19:00 | XMS_ITS | Clinical Summary ---
Author Organization Unknown Care Team Providers Care Bowling Pin Refinisher Name Role Phone CHRIS MEDIA MARKETING SPECIALIST, MOOKIE Unavailable Unavailable ANN RN, HARMONY Unavailable Unavailable ANITA PT, BIJAL Unavailable Unavailable Payers Payer Name Policy Type Policy Number Effective Date Expira tion Date CARELON MYNEXUS FOR [employer] MCR ADV PDGM MEDICAID [place] [id number] Problems Condition Name Condition Details Condition Category Status Onset Date Resolution Date Last Treatment Date Treating Clinician Comments CHRONIC OBSTRUCTIVE PULMONARY DISEASE, UNSPECIFIED Active 2024-08 00:00: 00 Allergies, Adverse Reactions, [...] 2- 00:00: 00 06-11 23:59 :00 No [id number] BLOOD PRESSRUE 1 tablet DAILY 1 tablet DAILY (route: oral) Med Classific ation: Cardiovas cular Therapy Agents aspirin 81 mg tablet,art yed release 2023-08 2 00:00: 00 06-11 23:59 :00 No [id number] PREVENT STROKE 1 tablet DAILY 1 tablet DAILY (route: oral) Med Classific ation: Hematolog ical Agents glyburide 5 mg tablet 2023-08 2 00:00: 00 06-11 23:59 :00 No [id number] DIABETES 4 tablet DAILY 4 tablet DAILY (route: oral) Med Classific ation: Endocrine metformin 1,000 mg tablet 2023-08 00:00: 00 06-11 23:59 :00 No [id number] DIABETES 1 tablet 2 TIMES DAILY 1 tablet 2 TIMES DAILY (route: oral) Med Classific ation: Endocrine omeprazole 40 mg capsule,del ayed release 2023-08 00:00: 00 06-11 23:59 :00 No [id number] ACID REFLUX/ HEARTBURN 1 capsule DAILY 1 capsule DAILY (route: oral) Med Classific ation: Gastroint estinal Therapy Agents Plavix 75 mg tablet 2023-08 2 00:00: 00 06-11 23:59 :00 No [id number] BLOOD THINNER 1 tablet DAILY 1 tablet DAILY (route: oral) Med Classific ation: Hematolog ical Agents prednisone 20 mg tablet 2023-08 2 00:00: 00 08-04 23:59 :00 No [id number] STERIOD 2 tablet DAILY 2 tablet DAILY (route: oral) Med Classific ation: Endocrine rosuvastati n 5 mg tablet 2023-08 2- 00:00: 00 06-11 23:59 :00 No [id number] CHOLESTEROL 1 tablet DAILY 1 tablet DAILY (route: oral) Med Classific ation: Cardiovas cular Therapy Agents Trelegy Ellipta 100 mcg-62.5 mcg-25 mcg powder for inhalation 2023-08 2 00:00: 00 06-11 23:59 :00 No [id number] COPD 1 inhalat ion DAILY 1 inhalation DAILY (route: inhalation ) Med Classific ation: Respirato ry Therapy Agents trimethopri m 100 mg tablet 2023-08 00:00: 00 06-11 23:59 :00 No [id number] BACTERIAL INFECTION 1 tablet DAILY 1 tablet DAILY (route: oral) Med Classific ation: Anti-Infe ctive Agents Ventolin HFA 90 mcg/actuati on aerosol inhaler 2023-08 00:00: 00 06-11 23:59 :00 No [id number] SHORTNESS OF BREATH OR WHEEZING 2 puff NEEDED 2 puff NEEDED (route: inhalation ) Med Classific ation: Respirato ry Therapy Agents Vitamin D3 25 mcg (1,000 unit) tablet 2023-08 00:00: 00 06-11 23:59 :00 No [id number] VITAMIN D SUPPLEMENT 1 tablet DAILY 1 tablet DAILY (route: oral) Med Classific ation: Electroly te Balance-N utritiona l Products nystatin 100,000 unit/mL oral suspension 2023-08 00:00: 00 06-11 23:59 :00 No [id number] THRUSH 4 mL 4 TIMES DAILY 4 mL 4 TIMES DAILY (route: oral) Med Classific ation: Mouth-Thr oat-Denta l - Preparati ons buspirone 10 mg tablet 2023-08 00:00: 00 06-11 23:59 :00 No [id number] ANXIETY 1 tablet NEEDED 1 tablet NEEDED (route: oral) Med Classific ation: Central Nervous System Agents paroxetine 10 mg tablet 2023-08 00:00: 00 09-05 23:59 :00 No [id number] ANXIETY/DEP RESSION 1 tablet DAILY 1 tablet DAILY (route: oral) Med Classific ation: Central Nervous System Agents Vital Signs Vital Name Observation Time Observation Value Commen ts Temperature 2025-07-05 12:39:00.000 96.8 [degF] Temperature 2025-07-04 11:01:00.000 97.2 [degF] Temperature 2025-06-29 11:38:00.000 96.7 [degF] Temperature 2025-06-28 12:38:00.000 96.7 [degF] Temperature 2025-06-27 13:07:00.000 97.2 [degF] Temperature 2025-06-24 11:21:00.000 97.3 [degF] BMI (%) 2025-06-24 11:21:00.000 25 kg/m2 Height 2025-06-24 11:21:00.000 62 [in_us] Pulse 2025-07-05 12:39:00.000 72 /min Pulse 2025-07-04 11:01:00.000 67 /min Pulse 2025-06-29 16:50:00.000 58 /min Pulse 2025-06-29 11:38:00.000 64 /min Pulse 2025-06-28 12:38:00.000 67 /min Pulse 2025-06-27 13:07:00.000 65 /min Pulse 2025-06-24 11:21:00.000 57 /min O2 Saturation (%) 2025-07-05 12:39:00.000 94 % O2 Saturation (%) 2025-07-04 11:01:00.000 88 % O2 Saturation (%) 2025-06-29 16:50:00.000 94 % O2 Saturation (%) 2025-06-29 11:38:00.000 97 % O2 Saturation (%) 2025-06-28 12:38:00.000 98 % O2 Saturation (%) 2025-06-27 13:07:00.000 96 % O2 Saturation (%) 2025-06-24 11:21:00.000 94 % Respirations 2025-07-05 12:39:00.000 18 /min Respirations 2025-07-04 11:01:00.000 21 /min Respirations 2025-06-29 16:50:00.000 18 /min Respirations 2025-06-29 11:38:00.000 18 /min Respirations 2025-06-28 12:38:00.000 20 /min Respirations 2025-06-27 13:07:00.000 24 /min Respirations 2025-06-24 11:21:00.000 18 /min Weight (lbs) 2025-07-05 12:39:00.000 114 [lb_av] Weight (lbs) 2025-07-04 11:01:00.000 120 [lb_av] Weight (lbs) 2025-06-29 11:38:00.000 129.4 [lb_av] Weight (lbs) 2025-06-28 12:38:00.000 129.2 [lb_av] Weight (lbs) 2025-06-27 13:07:00.000 129.2 [lb_av] Weight (lbs) 2025-06-24 11:21:00.000 139 [lb_av] Systolic Blood Pressure 2025-07-05 12:39:00.000 116 mm [Hg] Systolic Blood Pressure 2025-07-04 11:01:00.000 127 mm [Hg] Systolic Blood Pressure 2025-06-29 16:50:00.000 84 mm[ Hg] Systolic Blood Pressure 2025-06-29 11:38:00.000 123 mm [Hg] Systolic Blood Pressure 2025-06-28 12:38:00.000 137 mm [Hg] Systolic Blood Pressure 2025-06-27 13:07:00.000 142 mm [Hg] Systolic Blood Pressure 2025-06-24 11:21:00.000 122 mm [Hg] Diastolic Blood Pressure 2025-07-05 12:39:00.000 [...] TO REDUCE FALL RISK DURING FUNCTIONAL ACTIVITIES.] Goal Patient Goal - TO GET STRONG [...] ACTIVITIES. GOAL TO BE MET BY 08/22/25 Progress Notes Progress Notes <paragraph>[Visit Date: 2024 by BIJAL HOWARD PT]:</paragraph><paragraph>PHYSICAL THERAPY FOLLOW UP VISIT. PATIENT DENIES PAIN AT REST, HOWEVER SHE AND DAUGHTER REPORT SIGNIFICANT PAIN AT NIGHT. THEY ARE TRYING SALONPAS, WITH TEMPORARY RELIEF. NO FALLS IN PAST 48 HOURS, HOWEVER 2 FALLS IN PAST WEEK. THEY ARE IN AGREEMENT THAT PATIENT IS NOT SAFE TO AMB AT THIS TIME, USE OF MANUAL WHEELCHAIR FOR ALL MOBILITY. DAUGHTER CANNOT FIND HEP HANDOUT FROM LAST VISIT AND REQUESTS NEW. </paragraph><paragraph></paragraph><paragraph>MS JOHNSON TOLERATED PHYSICAL THERAPY FAIRLY TODAY, LIMITED BY PAIN AND FATIGUE IN STANDING. STABLE VITAL SIGNS, NO LOB WITH MIN ASSIST, NO PARRY OR O2 DESAT. PATIENT DEMONSTRATES CGA-MIN ASSIST FOR SAFE TRANSFERS AND WC MOBILITY IN THE HOME. ABLE TO TOLERATE MIN STANDING, FULL SEATED BLE STRENGTH THEREX. EDUCATED IN FALL PREVENTION. PATIENT DEMONSTRATES IMPROVED WC MOBILITY COMPARED TO LAST VISIT. CONTINUED DEFICITS IN BLE STRENGTH, TRANSFERS, BALANCE. UNABLE TO ATTEND OUTPATIENT THERAPY DUE TO WEAKNESS, PARRY, FALL RISK. TO CONTINUE ONCE WEEKLY TO PROGRESS TOWARD GOALS EDUCATE AND ASSESS. HEP REVIEWED AND UPDATED, ALL QUESTIONS ANSWERED. NEXT VISIT TO PROGRESS STANDING TOLERANCE.</paragraph> <paragraph>[Visit Date: 2024 by HAYDEN MOHAN OT]:</paragraph><paragraph>PATIENT WAS SEEN THIS DATE FOR OT VISIT. PATIENT WAS SEATED IN HER WC WHEN OT ARRIVED. MENDEL WAS ALSO PRESENT. PATIENT DENIED NEW FALLS. PATIENT DENIED PAIN ALTHOUGH MENDEL REPORTS THAT PATIENT IS UP 4-5 TIMES A NIGHT C/O INCREASED HIP PAIN. PATIENT REPORTED THAT SHE HAD BEEN PRESCRIBED MAGNESIUM AT HER ED VISIT AFTER HER MOST RECENT FALL. IT WAS NOT COVERED BY HER INSURANCE SO SHE BOUGHT IT OTC. MENDEL IS UNSURE OF DOSAGE. CALL PLACED TO MOOKIE PEREZ'S OFFICE FOR CLARIFICATION. HHRN INFORMED. PATIENT REPORTS THAT SHE HAS BEEN PARTICIPATING IN B MATERIAL HANDLER STRENGTHENING EXERCISES AND IS PRESENTING WITH A 5# INCREASE IN B MATERIAL HANDLER STRENGTH SINCE EVALUATION LAST WEEK. PATIENT TOLERATED STATIC SUPPORTED STANCE TWICE FOR 1.25 MINS THIS DATE. PATIENT HAS BEEN ENCOURAGED TO PARTICIPATE IN STATIC SUPPORTED STANDING AT THE KITCHEN SINK WITH CGA 3-4 TIMES DAILY PART OF HER HEP. OT ROTATED THE RTS OVER THE COMMODE IN THE BR 90 DEFREES TO ELIMINATE NEED FOR PATIENT TO SIDE STEP AROUND THE SINK TO THE TOILET, PATIENT IS NOW ABLE TO PIVOT TO THE TOILET FROM HER WC. ALSO DISCUSSED POSSIBLE BENEFIT OF INSTALLING A TRANSFER POLE NEXT TO THE COMMODE TO INCREASE SAFETY WITH TRANSFERS. PATIENT COMPLETED TOILET TRANSFER AND TOILETING WITH CGA AND VC FOR SAFETY AWARENESS. </paragraph><paragraph></paragraph><paragraph>NEXT VISIT: TOILET TRANSFERS/DME TRAINING/ADLS</paragraph> Encounters Start Date/Time End Date/Time Encounter Type Admission Type Attending Clinicians Care Facility Care Department Encounter ID Discharge Date Discharge Status Discharge Condition Discharge Reason Percent Goals Met 2025-06-24 00:00:00 2025-08-22 00:00:00 Outpatient NEW ADMISSION HARMONY JUAREZ [facility] [id number] 25 [id number]
--- OUTSIDE RECORDS SUMMARY | 2025-08-21 19:00 | XMS_ITS | Clinical Summary ---
Author Organization Unknown Care Team Providers Care Property Disposal Officer Name Role Phone CHRIS BANDMILL OPERATOR, MOOKIE Unavailable Unavailable ANN RN, HARMONY Unavailable Unavailable ANITA PT, BIJAL Unavailable Unavailable Payers Payer Name Policy Type Policy Number Effective Date Expira tion Date CARELON MYNEXUS FOR AETNA MCR ADV PDGM MEDICAID [place] [id number] Problems Condition Name Condition Details Condition Category [...] 2- 00:00: 00 06-11 23:59 :00 No [id number] BLOOD PRESSRUE 1 tablet DAILY 1 tablet DAILY (route: oral) Med Classific ation: Cardiovas cular Therapy Agents aspirin 81 mg tablet,art yed release 2023-08 2 00:00: 00 06-11 23:59 :00 No [id number] PREVENT STROKE 1 tablet DAILY 1 tablet DAILY (route: oral) Med Classific ation: Hematolog ical Agents glyburide 5 mg tablet 2023-08 2 00:00: 00 06-11 23:59 :00 No [id number] DIABETES 4 tablet DAILY 4 tablet DAILY (route: oral) Med Classific ation: Endocrine metformin 1,000 mg tablet 2023-08 00:00: 00 06-11 23:59 :00 No [id number] DIABETES 1 tablet 2 TIMES DAILY 1 tablet 2 TIMES DAILY (route: oral) Med Classific ation: Endocrine omeprazole 40 mg capsule,del ayed release 2023-08 00:00: 00 06-11 23:59 :00 No [id number] ACID REFLUX/ HEARTBURN 1 capsule DAILY 1 capsule DAILY (route: oral) Med Classific ation: Gastroint estinal Therapy Agents Plavix 75 mg tablet 2023-08 2 00:00: 00 06-11 23:59 :00 No [id number] BLOOD THINNER 1 tablet DAILY 1 tablet DAILY (route: oral) Med Classific ation: Hematolog ical Agents prednisone 20 mg tablet 2023-08 2 00:00: 00 08-04 23:59 :00 No [id number] STERIOD 2 tablet DAILY 2 tablet DAILY (route: oral) Med Classific ation: Endocrine rosuvastati n 5 mg tablet 2023-08 2- 00:00: 00 06-11 23:59 :00 No [id number] CHOLESTEROL 1 tablet DAILY 1 tablet DAILY (route: oral) Med Classific ation: Cardiovas cular Therapy Agents Trelegy Ellipta 100 mcg-62.5 mcg-25 mcg powder for inhalation 2023-08 2 00:00: 00 06-11 23:59 :00 No [id number] COPD 1 inhalat ion DAILY 1 inhalation DAILY (route: inhalation ) Med Classific ation: Respirato ry Therapy Agents trimethopri m 100 mg tablet 2023-08 00:00: 00 06-11 23:59 :00 No [id number] BACTERIAL INFECTION 1 tablet DAILY 1 tablet DAILY (route: oral) Med Classific ation: Anti-Infe ctive Agents Ventolin HFA 90 mcg/actuati on aerosol inhaler 2023-08 00:00: 00 06-11 23:59 :00 No [id number] SHORTNESS OF BREATH OR WHEEZING 2 puff NEEDED 2 puff NEEDED (route: inhalation ) Med Classific ation: Respirato ry Therapy Agents Vitamin D3 25 mcg (1,000 unit) tablet 2023-08 00:00: 00 06-11 23:59 :00 No [id number] VITAMIN D SUPPLEMENT 1 tablet DAILY 1 tablet DAILY (route: oral) Med Classific ation: Electroly te Balance-N utritiona l Products nystatin 100,000 unit/mL oral suspension 2023-08 00:00: 00 06-11 23:59 :00 No [id number] THRUSH 4 mL 4 TIMES DAILY 4 mL 4 TIMES DAILY (route: oral) Med Classific ation: Mouth-Thr oat-Denta l - Preparati ons buspirone 10 mg tablet 2023-08 00:00: 00 06-11 23:59 :00 No [id number] ANXIETY 1 tablet NEEDED 1 tablet NEEDED (route: oral) Med Classific ation: Central Nervous System Agents paroxetine 10 mg tablet 2023-08 00:00: 00 09-05 23:59 :00 No [id number] ANXIETY/DEP RESSION 1 tablet DAILY 1 tablet [...] THAT SHE HAS BEEN PARTICIPATING IN B ROSE GROWER STRENGTHENING EXERCISES AND IS PRESENTING WITH A 5# INCREASE IN B ROSE GROWER STRENGTH SINCE EVALUATION LAST WEEK. PATIENT TOLERATED [...] 2025-08-22 00:00:00 Outpatient NEW ADMISSION HARMONY JUAREZ [facility] [id number] 25 .81
== END 2025-07-06 23:59 | disposition home or self-care (01) ==
LOC: RAD 13:47
PROVIDERS: PCP Nurse Practitioner; Visit Provider Orthopaedic Surgery
DX: M16.12 Unilateral primary osteoarthritis, left hip (principal); Z96.642 Presence of left artificial hip joint
CPT/HCPCS: 73502

== ENCOUNTER 2025-07-19 11:17 | Emergency (ER) | payer MEDICARE, MEDICAID, SELFPAY ==
[2025-07-19 11:09] VITALS: BP 145/75; PULSE 73; RESP 20; TEMP 37.1; O2SAT 95; BMI 23.8
[2025-07-19 11:18] VITALS: BP 145/75; PULSE 73; O2SAT 96
[2025-07-19 11:31] VITALS: BP 134/72; PULSE 73; O2SAT 95
--- NOTE | 2025-07-19 11:38 | XR_ITS ---
FINAL REPORT TECHNIQUE: Single view chest CLINICAL HISTORY: shortness of breath COMPARISON: 06/29/2025 FINDINGS: A single view of the chest was obtained. The heart and mediastinum are within normal limits. The lungs are clear. There is likely underlying emphysema. There is no effusion or pneumothorax. IMPRESSION: No acute cardiopulmonary process. Reviewed, Interpreted and Dictated by Prudence Osborne MD Transcribed by Maria M German Authenticated and [facility]
--- NOTE | 2025-07-19 11:38 | CT_ITS ---
FINAL REPORT TECHNIQUE: Thin section axial images are obtained through the abdomen and pelvis after intravenous contrast. Reconstruction images were obtained from the axial data. Exam was performed using dose reduction techniques. CLINICAL HISTORY: ABdominal pain, diarrhea, dark stools FINDINGS: LUNG BASES: There is a subpleural left lower lobe nodule measuring 4 mm seen on series 3, image 16. There is right lower lobe atelectasis. Heart size is normal. LIVER: Homogeneous. No focal lesion. GALLBLADDER/BILIARY SYSTEM: Gallbladder is absent. No biliary dilatation. SPLEEN: Unremarkable. PANCREAS: Unremarkable. ADRENALS: There is a left adrenal nodule measuring 20 mm which is indeterminate. Right adrenal gland is unremarkable. KIDNEYS/URETERS/BLADDER: There is an exophytic, 10 mm left renal lesion which does not appear to represent a simple cyst. This demonstrates Hounsfield units suggestive of hemorrhagic or proteinaceous cyst. No other concerning renal lesion is identified. There is no hydronephrosis. Unremarkable urinary bladder. GI TRACT: There is wall thickening of the gastric antrum which could represent gastritis. There is no evidence of small bowel obstruction. Normal appendix. There is wall thickening of the ascending colon and proximal transverse colon which could represent mild colitis. PELVIC ORGANS: Uterus and ovaries are unremarkable for age. LYMPH NODES/RETROPERITONEUM/MESENTERY: No lymphadenopathy. No abdominal aortic aneurysm. ABDOMINAL WALL: The abdominal wall is intact. FREE FLUID: Physiologic. BONES: There are changes of left hip arthroplasty. No acute osseous abnormality. IMPRESSION: 1. Possible distal gastritis. 2. Findings concerning for proximal colitis. 3. Left renal lesion, favor hemorrhagic or proteinaceous cyst. 4. Left lower lobe pulmonary nodule measuring 3 mm. Reviewed, Interpreted and Dictated by Prudence Osborne MD Transcribed by Maria M German Authenticated and . [facility]
--- NOTE | 2025-07-19 11:40 | ED_ITS ---
Discharge Plan Disposition Patient Disposition: Home, Self-Care Prescriptions Prescriptions: No Action clopidogrel [Plavix] 75 mg tablet 75 mg PO DAILY Qty: 90 3RF aspirin 81 mg tablet,delayed release (DR/EC) 81 mg PO DAILY Qty: 100 10RF (DME) nebulizers Misc See Rx Instructions .MEDSUPPLY Qty: 1 0RF Rx Instructions: As directed (DME) nebulizer accessories Kit See Rx Instructions .MEDSUPPLY Qty: 1 0RF Rx Instructions: As directed cholecalciferol (vitamin D3) 25 mcg (1,000 unit) capsule 25 mcg PO DAILY (DME) OneTouch Verio test strips Strip See Rx Instructions .Route Qty: 50 11RF Rx Instructions: As directed cyclobenzaprine 10 mg tablet 10 mg PO HS PRN (Reason: muscle spasm) Qty: 30 0RF hydrocortisone 2.5 % cream 1 applic topical TID PRN (Reason: hemorrhoids) Qty: 30 2RF insulin glargine [Lantus Solostar U-100 Insulin] 100 unit/mL (3 mL) insulin pen 10 unit SQ HS 30 Days Qty: 3 5RF magnesium glycinate 120 mg capsule 120 - 240 mg PO QHS Qty: 60 2RF (DME) Dexcom G6 Sensor Device See Rx Instructions .Route Qty: 3 5RF Rx Instructions: As directed (DME) Dexcom G6 Microfiche Camera Operator Misc See Rx Instructions .Route Qty: 1 5RF Rx Instructions: As directed rosuvastatin 5 mg tablet 5 mg PO HS Qty: 90 1RF metformin 500 mg tablet extended release 24 hr 500 mg PO BID Qty: 60 2RF Patient Comments: TAKE 2 TABLETS BY MOUTH ONCE DAILY. (DME) insulin syringes (disposable) 1 mL syringe See Rx Instructions .Route Qty: 50 0RF Rx Instructions: As directed with insulin magnesium oxide 400 mg magnesium capsule 400 mg PO DAILY Qty: 30 0RF metoprolol tartrate 50 mg tablet 25 mg PO BID furosemide [Lasix] 40 mg tablet 40 mg PO DAILY Qty: 30 0RF betamethasone dipropionate 0.05 % cream 1 applic topical BIDP PRN (Reason: skin irritation) pantoprazole 40 mg Tablet,Delayed Release (Dr/Ec) 40 mg PO HS 30 Days Qty: 30 0RF ipratropium-albuterol 0.5 mg-3 mg(2.5 mg base)/3 mL Solution For Nebulization 3 ml inhalation Q6RT 30 Days Qty: 90 0RF albuterol sulfate [Ventolin HFA] 90 mcg/actuation HFA aerosol inhaler 2 puff inhalation Q6H PRN (Reason: Shortness of breath) 30 Days Qty: 0 0RF Referrals Follow up/Referrals: Aracely Thomas APRN [Primary Care Provider, Family Practice] - See instructions Charles Herrera MD [Physician, Pulmonology] - See instructions Activity Restrictions/Add. Instructions Additional Instructions/Restrictions: Your workup today showed inflammation of the stomach and intestines called gastroenteritis. This is likely from a virus and should improve over time. Continue to hydrate well by drinking plenty of fluids. Continue to take your magnesium supplements. CT scan also showed a cyst on your kidney that can be followed by your primary care doctor. You also found to have a lung nodule that measures 3 mm in the left lower lobe. I am referring you to our fire prevention forester for follow-up. Call them to schedule an appointment. If you develop any new or worsening symptoms, or if you become concerned for your health for any reason, return to the emergency department for evaluation Clinical Impressions Clinical Impression: Gastroenteritis, Renal cyst, Hypomagnesemia, Incidental lung nodule Instructions Patient Instructions: DI for Diarrhea and Traveler's Diarrhea in Adults, DI for Diarrhea and Traveler's Diarrhea in Children, DI for Nausea in Adults, DI for Nausea in Children Print Language Print Language: Sammarinese Discharge ED Provider: Bradly Harris Adult HPI General Chief complaint: Nausea/Vomiting/Diarrhea Stated complaint: N/V Time Seen by Provider: 07/19/25 11:31 Mode of Arrival: EMS Source of Information: Patient Description of Symptoms (Recalled from ER Triage Doc. by RN): pt was brought in for n/v/d x5 days with intermittent confusion, pt has hx of uti and is pleasant upon triage. per ems fbs was 197 pt came from home where she lives with daughter History of Present Illness HPI narrative: Patricia Hills is a 84-year-old female with a history of hypertension, diabetes mellitus, hyperlipidemia, cholecystectomy, heart failure with preserved ejection fraction, on aspirin and Plavix, who presents to the emergency department with daughter, whom she lives with for complaints of 5 to 7 days of nonbloody diarrhea and abdominal pain. She reports that patient is had approximately 2 episodes daily of diarrhea that she describes as nonbloody. She states that her stool today was dark. Daughter also feels like that she has been slightly more confused more than normal recently and sometimes forgets her name. She states that she is on antibiotics chronically for recurrent urinary tract infections. She reports intermittent episodes of vertigo, worse when she sits up as well as some shortness of breath but denies any chest pain. Daughter states that she has not been febrile. Related Data Home Medications ?Medication ?Instructions ?Recorded ?Confirmed cholecalciferol (vitamin D3) 25 25 mcg PO DAILY 07/06/25 mcg (1,000 unit) capsule betamethasone dipropionate 0.05 % 1 applic topical BID P PRN skin 05/25/25 07/06/25 topical cream irritation metoprolol tartrate 50 mg tablet 25 mg PO BID 06/14/25 07/06/25 Previous Rx's ?Medication ?Instructions ?Recorded aspirin 81 mg tablet,delayed 81 mg PO DAILY #100 tabs 07/06/24 release clopidogrel 75 mg tablet (Plavix) 75 mg PO DAILY #90 t abs 07/06/24 nebulizer accessories #1 ea 08/08/24 nebulizers #1 ea 08/08/24 blood sugar diagnostic (OneTouch #50 ea 04/03/25 Verio test strips) rosuvastatin 5 mg tablet 5 mg PO HS #90 tabs 04/26/25 metformin 500 mg tablet,extended 500 mg PO BID #60 tab s 05/10/25 release 24 hr albuterol sulfate 90 mcg/actuation 2 puff inhalation Q 6H PRN 05/29/25 aerosol inhaler (Ventolin HFA) Shortness of breath 30 days #0 grams ipratropium 0.5 mg-albuterol 3 mg 3 ml inhalation Q6RT 30 days #90 mL 05/29/25 (2.5 mg base)/3 mL nebulization soln pantoprazole 40 mg tablet,delayed 40 mg PO HS 30 days #30 tabs 05/29/25 release furosemide 40 mg tablet (Lasix) 40 mg PO DAILY #30 tab s 06/14/25 hydrocortisone 2.5 % topical cream 1 applic topical TI D PRN 06/16/25 hemorrhoids #30 grams insulin syringes (disposable) 1 mL #50 ea 06/22/25 magnesium oxide 400 mg PO DAILY #30 caps blood-glucose sensor (Dexcom G6 #3 ea 07/03/25 Sensor device) blood-glucose,patient accounts manager,cont #1 ea 07/03/25 (Dexcom G6 Microfiche Camera Operator) insulin glargine 100 unit/mL (3 10 unit (0.1 mL) SQ HS 30 days #3 07/03/25 mL) subcutaneous pen (Lantus mL Solostar U-100 Insulin) magnesium glycinate 120 mg (as 120 - 240 mg (1 - 2 x 1 20 mg) PO 07/03/25 glycinate) capsule QHS #60 caps cyclobenzaprine 10 mg tablet 10 mg PO HS PRN muscle sp asm #30 07/06/25 tabs Allergies Allergy/AdvReac Type Severity Reaction Status Date / Time Penicillins Allergy Severe swelling Verified 07/06/25 14:46 doxycycline Allergy Mild Unknown Verified 07/06/25 14:46 allergy reaction levofloxacin (From Levaquin) Allergy Anaphylaxis Verified 07/06/25 14:46 moxifloxacin (From Avelox) Allergy Hives Verified 07/06/25 14:46 brompheniramine AdvReac Unknown Verified 07/06/25 14:46 allergy reaction bupivacaine (From Marcaine) AdvReac Unknown Verified 07/06/25 14:46 allergy reaction cephalexin (From Keflex) AdvReac Unknown Verified 07/06/25 14:46 allergy reaction clarithromycin AdvReac Unknown Verified 07/06/25 14:46 allergy reaction fluvastatin (From Lescol) AdvReac Unknown Verified 07/06/25 14:46 allergy reaction hydrochlorothiazide AdvReac Unknown Verified 07/06/25 14:46 allergy reaction lovastatin (From Altocor) AdvReac Unknown Verified 07/06/25 14:46 allergy reaction nitrofurantoin (From AdvReac Unknown Verified 07/06/25 14:46 Macrobid) allergy reaction triamcinolone (From Kenalog) AdvReac Unknown Verified 07/06/25 14:46 allergy reaction PFSH PFSH Disclaimer: The information contained in this section may have been updated after the patient was seen, as this information can be updated by other users. Medical History Wheelchair dependent Weakness Warthin's tumor Pressure ulcer Shortness of Breath Celiac artery stenosis Acute heart failure with preserved ejection fraction (HFpEF) Pleural effusion, bilateral Vertigo Transient neurological symptoms Encounter for immunization Thyroid nodule Visual hallucination Right-sided headache Coronary artery calcification seen on CT scan Pulmonary nodule Vitamin D deficiency Type 2 diabetes mellitus without complications Hyperlipidemia Diabetes mellitus HTN (hypertension) Degenerative joint disease (DJD) of lumbar spine Surgical History H/O removal of cyst History of cholecystectomy Hx of cataract surgery Family History Mother Coronary artery disease Grandmother Stroke Brother Heart attack Social History Smoking Status: Never smoker alcohol intake: never substance use type: denies use current occupational status: other Travel in the last 8 weeks?: None household members: other housing: house Have you lived/traveled outside [place] in past 30 days?: No Contact w/someone who lives/traveled outside [place] past 30 days?: No Exposure to someone with infectious disease in past 14 days?: No Do you have a fever (greater than 100.4 F or 38 C)?: No Have you tested positive for COVID-19?: No Exposed to someone with COVID-19 in past 14 days?: No Do you have a sore throat?: No Do you have a cough?: No Do you have any weakness?: No Do you have any diarrhea?: No Are you experiencing any unusual bleeding?: No Do you have any muscle aches/pain?: No Do you have any abdominal pain?: No Are you experiencing loss of taste or smell?: No Other Medical History Have you received the Flu Vaccine for this season: No Have you received the Pneumonia Vaccine: No ROS Obtained: Yes Systems reviewed as appropriate & no additional complaints except as documented Physical Exam General General appearance: alert and in no apparent distress Head Head exam: atraumatic Eye Eye exam: Present normal appearance ENT ENT exam: Present normal external ear exam Neck Neck exam: Present full ROM Chest Chest inspection: Present symmetric chest wall rise Respiratory Respiratory exam: Present normal lung sounds bilaterally; Absent respiratory distress, wheezes or stridor Cardiovascular Cardiovascular exam: Present regular rate and normal rhythm Abdominal Exam Abdominal exam: Present soft and tenderness (mild diffuse tenderness without guarding); Absent distention or guarding Extremities Exam Extremities exam: Present normal inspection; Absent edema Back Exam Back exam: Present normal inspection Neurological Exam Neurological exam: Present alert and oriented X3 Psychiatric Psychiatric exam: Present normal affect Skin Skin exam: Present warm and dry Medical Decision Making Medical Records Screening: Per USPSTF and CDC recommendations, given the prevalence of disease in our region, it is our hospital?s policy to screen for HIV and viral Hepatitis for all patients aged 18 and over and those with ongoing risk factors. Cristhian Inquiry Pt receiving controlled substance: No Vital Signs: 07/19/25 11:09 07/19/25 11:18 07/19/25 11:31 Temperature 98.7 F Temperature Source Oral Pulse Rate 73 73 Pulse Rate [Left Radial] 73 Respiratory Rate 20 Blood Pressure 145/75 H 134/72 Blood Pressure [Right Arm] 145/75 H Blood Pressure Mean [Right Arm] 98 02 Sat by Pulse Oximetry 95 96 95 Oxygen Delivery Method Room Air Room Air Room Air 07/19/25 12:01 07/19/25 13:47 Temperature 98.1 F Temperature Source Pulse Rate 72 80 Pulse Rate [Left Radial] Respiratory Rate 20 Blood Pressure 152/87 H 134/70 Blood Pressure [Right Arm] Blood Pressure Mean [Right Arm] 02 Sat by Pulse Oximetry 96 Oxygen Delivery Method Room Air Room Air Lab Data Lab Results 07/19/25 11:20: WBC 8.0, RBC 3.87 L, Hgb 11.9 L, Hct 35.7 L, MCV 92.2, MCH 30.7, MCHC 33.3, RDW 13.4, Plt Count 287, MPV 9.5, Neut % (Auto) 60.1, Lymph % (Auto) 28.4, [place] % (Auto) 8.9, Eos % (Auto) 1.5, Baso % (Auto) 0.8, Neut # (Auto) 4.8, Lymph # (Auto) 2.3, [place] # (Auto) 0.7, Eos # (Auto) 0.1, Baso # (Auto) 0.1, Sodium 137, Potassium 3.5, Chloride 104, Carbon Dioxide 28, Anion Gap 8.5, BUN 15, Creatinine 0.70, Estimated Creat Clear 39, Estimated GFR 80, Est GFR ( Amer) 96, Glucose 155 H, Lactate 3.0 H, Calcium 8.9, Magnesium 1.3 L, Total Bilirubin 0.3, AST 35, ALT 18, Alkaline Phosphatase 77, Troponin I < 0.01, NT-Pro-B Natriuret Pep 751 H, Total Protein 6.2 L, Albumin 3.8, Globulin 2.4, Albumin/Globulin Ratio 1.6, Lipase 62 07/19/25 11:27: Urine Color Yellow, Urine Appearance Clear, Urine pH 5.5, Ur Specific [place] >= 1.030, Urine Protein Trace, Urine Glucose (UA) Negative, Urine Ketones Trace, Urine Blood Negative, Urine Nitrate Negative, Urine Bilirubin Negative, Urine Urobilinogen 0.2, Ur Leukocyte Esterase Negative, Urine RBC None, Urine WBC None, Ur Squamous Epith Cells Occasional, Urine Bacteria 1+, Urine Mucus 1+ 07/19/25 12:20: Stool Occult Blood Negative 07/19/25 11:20 07/19/25 11:20 Orders (Tests/Meds): ED MEDICATIONS Discontinued Medications Generic Name Dose Route Start Last Admin Trade Name Lucio PRN Reason Stop Dose Admin Lactated Ringer's 500 mls @ 999 mls/hr 07/19/25 12:20 07/19/25 13:18 Lactated Ringer's 500ml IV 07/19/25 12:50 Infused .Q31M ONE Infusion Magnesium Sulfate 2 gm in 50 mls @ 50 mls/hr 07/19/25 12:20 07/19/25 13:17 Magnesium Sulfate 2gm/50ml Premix IV 07/19/25 13:19 Infused ONCE ONE Infusion Iopamidol 75 ml 07/19/25 12:24 07/19/25 12:25 Iopamidol-370 (76%);100ml Bottle IV 07/19/25 12:25 75 ml ONCE ONE Administration Sodium Chloride 10 ml 07/19/25 12:24 07/19/25 12:25 Sodium Chloride 0.9% 10ml Syr (Rad Only) IV 07/19/25 12:25 10 ml ONCE ONE Administration ORDERS Category Date Time Status CT abdomen pelvis w con Stat Cat Scan 07/19/25 11:38 Completed CXR --portable [XR chest portable] Stat Exams 07/19/25 11:38 Completed BNP [NT Pro Brain Natriuretic Pep.] Stat Lab 07/19/25 11:20 Completed CBC w/Auto Diff [Complete Blood Count Auto Diff] Stat Lab 07/19/25 11:20 Completed CMP [Comprehensive Metabolic Panel] Stat Lab 07/19/25 11:20 Completed Lactic Acid Stat Lab 07/19/25 11:20 Completed Lipase Stat Lab 07/19/25 11:20 Completed Magnesium Stat Lab 07/19/25 11:20 Completed Occult Blood,Stool Stat Lab 07/19/25 12:20 Completed Troponin I Stat Lab 07/19/25 11:20 Completed UA [Urinalysis and Microscopic] Stat Lab 07/19/25 11:27 Completed Medical Decision Narrative: Patricia Hills is a 84-year-old female with a history of hypertension, diabetes mellitus, hyperlipidemia, cholecystectomy, heart failure with preserved ejection fraction, on aspirin and Plavix, who presents to the emergency department with daughter, whom she lives with for complaints of 5 to 7 days of nonbloody diarrhea and abdominal pain. She reports that patient is had approximately 2 episodes daily of diarrhea that she describes as nonbloody. She states that her stool today was dark. Daughter also feels like that she has been slightly more confused more than normal recently and sometimes forgets her name. She states that she is on antibiotics chronically for recurrent urinary tract infections. She reports intermittent episodes of vertigo, worse when she sits up as well as some shortness of breath but denies any chest pain. Daughter states that she has not been febrile. On arrival, patient is hemodynamically stable, heart rate within normal limits, blood pressure 145/75, oxygen saturation 96% on room air. Afebrile with temperature of 98.1 ?F. Physical exam, as stated above, revealed overall well and nontoxic appearing female in no distress. She has mild diffuse abdominal tenderness without guarding or rebound or evidence of peritonitis. Cardiopulmonary exam is unremarkable with no wheezing, rales or rhonchi. No murmurs or rubs. Differential diagnosis includes, but is not limited to: GI bleed, gastroenteritis, diverticulitis, constipation, bowel obstruction, ACS, pneumonia, pleurisy, dehydration, among others. The most morbid conditions were considered and workup was based on these. EKG was interpreted by me personally. Normal sinus rhythm. No ST elevation or depression. QTc normal at 411 Patient's fecal occult blood testing was negative. Urinalysis without blood or evidence of infection. Troponin less than 0.01. NT proBNP mildly elevated at 751, liver enzymes within normal limits. Magnesium chronically low at 1.3 (will replace with 2 g of IV magnesium sulfate). Lactate mildly elevated at 3, glucose within acceptable range at 155. Electrolytes within normal limits. No CARLOS. No leukocytosis. Stable low hemoglobin at 11.9 and hematocrit of 35.7. Platelets within normal limits. CT imaging was interpreted by me personally. Likely distal gastritis and proximal colitis. She has a cystic lesion on the left kidney, could be hemorrhagic or proteinaceous cyst. She has a left lower lobe pulmonary nodule otherwise no acute findings. Chest x-ray interpreted by me personally. No focal consolidation, no pneumothorax, no widened mediastinum, no enlargement of the cardiac silhouette. Unremarkable chest x-ray. See radiology report for details. On reassessment, patient remains in stable condition. Her workup today shows evidence of gastritis as well as likely colitis. I made her aware of the incidental findings of the renal cyst and lung nodule. Will encourage follow-up with pulmonology and her PCP regarding these findings. I did encourage her to hydrate well over the next several days as her gastritis and colitis should improve over time. Return precautions were given. All questions were answered. She demonstrated understanding and was in agreement this plan. She was then discharged from the emergency department in stable condition. Critical Care Critical Care Time Critical Care Time: No
[2025-07-19 11:43] LABS: Microscopic, Urine URINE MICROSCOPIC (MICROSCOPIC)
[2025-07-19 11:44] LABS: Hematocrit 35.7 % (37.0-47.0); Hemoglobin 11.9 g/dL (12.2-16.2); Immature Granulocytes % 0.3 %; Mean Corpuscular HGB Conc 33.3 g/dL (31.8-35.4); Mean Corpuscular Hemoglobin 30.7 pg (27.0-31.2); Mean Corpuscular Volume 92.2 fl (81-99); Nucleated Red Blood Cells % 0 %; Platelet Count 287 K/mm3 (142-424); Red Blood Count 3.87 M/mm3 (4.20-5.40); Red Cell Distribution Width-SD 45.2 fL; White Blood Count 8.0 K/mm3 (4.8-10.8)
[2025-07-19 11:50] LABS: Bilirubin,Urine Negative (Negative); Color,Urine YELLOW (Yellow); Glucose,Urine (UA) Negative (Negative); Ketones,Urine TRACE (Negative); Leukocyte Esterase,Urine Negative (Negative); PH,Urine 5.5 (5.0-8.5); Protein,Urine TRACE (Negative); Specific Gravity, Urine >= 1.030 (1.005-1.030); Urobilinogen,Urine 0.2 EU/dl (0.2)
--- NOTE | 2025-07-19 11:54 | PC.NURSE ---
Rounded on patient, no needs voiced at this time.
[2025-07-19 11:58] LABS: Alanine Aminotransferase 18 U/L (12-78); Albumin Level 3.8 g/dl (3.5-5.0); Albumin/Globulin Ratio 1.6 (1.1-1.8); Alkaline Phosphatase 77 U/L (38-126); Anion Gap 8.5 mEq/L (5-15); Aspartate Amino Transferase 35 U/L (14-36); Bilirubin,Total 0.3 mg/dl (0.2-1.3); Blood Urea Nitrogen 15 mg/dl (7-17); Calcium 8.9 mg/dl (8.4-10.2); Carbon Dioxide 28 mmol/L (22.0-30.0); Chloride 104 mmol/L (98-107); Creatinine Clearance Estimated 39 mL/min (50-200); Creatinine,Serum 0.70 mg/dl (0.52-1.04); Estimated Glomerular Filt Rate 80 ml/min (>60); GFR (African American) 96 ML/MIN (>60); Globulin 2.4 g/dL (1.3-3.2); Glucose 155 mg/dl (74-100); Lipase 62 U/L (23-300); Magnesium 1.3 mg/dl (1.6-2.3); Potassium 3.5 mmoL/L (3.5-5.1); Sodium 137 mmol/L (136-145); Total Protein,Serum 6.2 g/dl (6.3-8.2)
[2025-07-19 12:01] VITALS: BP 152/87; PULSE 72; O2SAT 96
[2025-07-19 12:02] LABS: Bacteria,Urine 1+ /lpf; Mucus,Urine 1+ /lpf; Squamous Epithelial Cell,Urine Occasional #/hpf (0-5)
--- NOTE | 2025-07-19 12:07 | ECG_ITS ---
APPROVED REPORT Exam: Resting ECG HR:71 bpm ECG Measurements Heart Rate 71 AXES ID 159 P 67 QRSd 80 QRS 46 QT 389 T 61 QTc 411 Conclusion SINUS RHYTHM SEPTAL MYOCARDIAL INFARCTION , OF INDETERMINATE AGE [40+ ms Q WAVE IN V1/V2] ABNORMAL ECG UNCONFIRMED REPORT Normal sinus rhythm. No ST elevation or depression. QTc normal 389 Electronically signed by : FREDI MCCLELLAN, 07/20/2025 14:18:58
[2025-07-19 12:10] LABS: NT Pro Brain Natriuretic Pep. 751 pg/mL (0-450)
[2025-07-19 12:12] LABS: Troponin I < 0.01 ng/ml (0.00-0.034)
[2025-07-19] MEDS: SODIUM CHLORIDE 0.9% 10ML SYR (RAD ONLY) 10 ML IV (12:25)
[2025-07-19] MEDS: IOPAMIDOL-370 (76%);100ML BOTTLE 75 ML IV (12:25)
[2025-07-19] MEDS: RINGERS SOLUTION,LACTATED 500 ML 999 ML IV (12:33)
[2025-07-19] MEDS: MAGNESIUM SULFATE IN WATER 2 GM/50 ML PIGGYBACK IV (12:34)
[2025-07-19 12:36] LABS: Occult Blood,Stool Negative (Negative)
[2025-07-19 13:47] VITALS: BP 134/70; PULSE 80; RESP 20; TEMP 36.7; O2SAT 98
[2025-07-19 15:41] LABS: Reflex Lactic Add Lactic Reflex
== END 2025-07-19 13:47 | disposition home or self-care (01) ==
PROVIDERS: Emergency Provider Student in an Organized Health Care Education/Training Program; PCP Nurse Practitioner
DX: R10.84 Generalized abdominal pain (principal); E83.42 Hypomagnesemia; K52.9 Noninfective gastroenteritis and colitis, unspecified; R91.1 Solitary pulmonary nodule; N28.1 Cyst of kidney, acquired; I10 Essential (primary) hypertension; E11.9 Type 2 diabetes mellitus without complications; E78.5 Hyperlipidemia, unspecified; Z86.79 Personal history of other diseases of the circulatory system; Z79.01 Long term (current) use of anticoagulants; Z79.4 Long term (current) use of insulin
CPT/HCPCS: 71045; 74177; 80053; 81001; 82272; 83605; 83690; 83735; 83880; 84484; 85025; 93005; 96365; 99285; G0328; J3475; J7120; Q9967

== ENCOUNTER 2025-08-10 08:55 | Outpatient (CLI) | payer MEDICARE, MEDICAID, SELFPAY ==
[2025-08-10 18:29] LABS: Clostridium Difficile A/B, PCR Not Detected (NotDetected); Cyclospora Cayetanesis Not Detected (NotDetected); Salmonella, PCR Not Detected (NotDetected); Shiga-like toxin E coli Not Detected (NotDetected); Shigella Enterovasive E coli Not Detected (NotDetected); Vibrio, PCR Not Detected (NotDetected); Yersinia Entercolitica, PCR Not Detected (NotDetected)
[2025-08-10 18:44] LABS: Hematocrit 41.0 % (37.0-47.0); Hemoglobin 14.0 g/dL (12.2-16.2); Immature Granulocytes % 0.3 %; Mean Corpuscular HGB Conc 34.1 g/dL (31.8-35.4); Mean Corpuscular Hemoglobin 30.6 pg (27.0-31.2); Mean Corpuscular Volume 89.5 fl (81-99); Nucleated Red Blood Cells % 0 %; Platelet Count 361 K/mm3 (142-424); Red Blood Count 4.58 M/mm3 (4.20-5.40); Red Cell Distribution Width-SD 40.1 fL; White Blood Count 9.7 K/mm3 (4.8-10.8)
[2025-08-10 19:04] LABS: Chloride 95 mmol/L (98-107); Sodium 141 mmol/L (136-145)
[2025-08-10 19:06] LABS: Alanine Aminotransferase 12 U/L (12-78); Aspartate Amino Transferase 24 U/L (14-36); Blood Urea Nitrogen 37 mg/dl (7-17); Creatinine,Serum 1.50 mg/dl (0.52-1.04); Estimated Glomerular Filt Rate 33 ml/min (>60); GFR (African American) 40 ML/MIN (>60)
[2025-08-10 19:07] LABS: Alkaline Phosphatase 81 U/L (38-126); Bilirubin,Total 0.5 mg/dl (0.2-1.3); Calcium 8.9 mg/dl (8.4-10.2); Carbon Dioxide 33 mmol/L (22.0-30.0); Glucose 198 mg/dl (74-100); Magnesium 1.4 mg/dl (1.6-2.3); Total Protein,Serum 7.1 g/dl (6.3-8.2)
[2025-08-10 19:33] LABS: Hemoglobin A1C 6.2 % (4.0-6.0)
[2025-08-10 19:36] LABS: Anion Gap 15.9 mEq/L (5-15); Potassium 2.9 mmoL/L (3.5-5.1); Thyroid Stimulating Hormone 0.96 uIU/mL (0.465-4.68)
[2025-08-10 19:52] LABS: Albumin Level 4.3 g/dl (3.5-5.0); Albumin/Globulin Ratio 1.5 (1.1-1.8); Globulin 2.8 g/dL (1.3-3.2)
[2025-08-12 14:15] LABS: H. pylori Stool Ag, EIA Negative (Negative)
== END 2025-08-10 23:59 | disposition home or self-care (01) ==
LOC: LAB.DROPOF 08-14 08:56
PROVIDERS: PCP Nurse Practitioner; Visit Provider Nurse Practitioner
DX: E83.42 Hypomagnesemia (principal); E11.9 Type 2 diabetes mellitus without complications; R53.1 Weakness; R11.2 Nausea with vomiting, unspecified; R19.7 Diarrhea, unspecified
CPT/HCPCS: 80053; 83036; 83735; 84443; 85025; 87338; 87506

== ENCOUNTER 2025-08-11 09:44 | Outpatient (CLI) | payer MEDICARE, MEDICAID, SELFPAY | END 2025-08-11 23:59 | disposition home or self-care (01) | LOC: LAB.DROPOF 08-14 09:44 | PROVIDERS: PCP Nurse Practitioner; Visit Provider Nurse Practitioner | DX: D72.829 Elevated white blood cell count, unspecified (principal); W19.XXXA Unspecified fall, initial encounter | CPT/HCPCS: 87086 ==

== ENCOUNTER 2025-08-23 11:33 | Emergency (ER) | payer MEDICARE, MEDICAID, SELFPAY ==
--- OUTSIDE RECORDS SUMMARY | 2025-08-21 19:00 | XMS_ITS | Clinical Summary ---
Author Organization Unknown Care Team Providers Care Store Associate Name Role Phone CHRIS LINUX [employer] ADMINISTRATOR, MOOKIE Unavailable Unavailable ANN RN, HARMONY Unavailable Unavailable ANITA PT, BIJAL Unavailable Unavailable Payers Payer Name Policy Type Policy Number Effective Date Expira tion Date CARELON MYNEXUS FOR [employer] MCR ADV PDGM MEDICAID [place] [id number] Problems Condition Name Condition Details Condition Category Status Onset Date Resolution Date Last Treatment Date Treating Clinician Comments CHRONIC OBSTRUCTIVE PULMONARY DISEASE, UNSPECIFIED Active 2024-08 00:00: 00 MYOCARDIAL INFARCTION TYPE 2 Active 2024-08 00:00: 00 TYPE 2 DIABETES MELLITUS WITHOUT COMPLICATION S Active 2024-08 00:00: 00 CELIAC ARTERY COMPRESSION SYNDROME Active 2024-08 00:00: 00 HYPERTENSIVE HEART DISEASE WITH HEART FAILURE Active 2024-08 00:00: 00 ACUTE DIASTOLIC (CONGESTIVE) HEART FAILURE Active 2024-08 00:00: 00 HYPERTENSIVE EMERGENCY Active 2024-08 00:00: 00 ATHSCL HEART DISEASE OF [place] CORONARY ARTERY W/O ANG PCTRS Active 2024-08 00:00: 00 MIXED HYPERLIPIDEM IA Active 2024-08 00:00: 00 OCCLUSION AND STENOSIS OF UNSPECIFIED CAROTID ARTERY Active 2024-08 00:00: 00 OTHER SPECIFIED DISORDERS OF ADRENAL GLAND Active 2024-08 00:00: 00 LONG-TERM (CURRENT) USE OF INSULIN Active 2024-08 00:00: 00 VITAMIN D DEFICIENCY, UNSPECIFIED Active 2024-08 00:00: 00 SPONDYLOSIS W/O MYELOPATHY OR RADICULOPATH Y, LUMBAR REGION Active 2024-08 00:00: 00 NICOTINE DEPENDENCE, CIGARETTES, UNCOMPLICATE D Active 2024-08 00:00: 00 NONTOXIC SINGLE THYROID NODULE Active 2024-08 00:00: 00 PATHOLOGICAL FRACTURE, LEFT FEMUR, SUBS FOR FX W ROUTN HEAL Active 2024-08 00:00: 00 LONG-TERM (CURRENT) USE OF ASPIRIN Active 2024-08 00:00: 00 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 Active 2024-08 00:00: 00 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 Active 2024-08 00:00: 00 DEPENDENCE ON SUPPLEMENTAL OXYGEN Active 2024-08 00:00: 00 PERSONAL HISTORY OF PNEUMONIA (RECURRENT) Active 2024-08 00:00: 00 PRESENCE OF LEFT ARTIFICIAL HIP JOINT Active 2024-08 00:00: 00 ACQUIRED ABSENCE OF OTHER SPECIFIED PARTS OF DIGESTIVE TRACT Active 2024-08 00:00: 00 Allergies, Adverse Reactions, Alerts Allergy Name Allergy Type Status Severity Reaction(s) Onset Date Inactive Date Treating Clinician Comments PENICILLIIN Propensity to adverse reactions Active 2024-08 12:48: 06 DOXYCYLINE Propensity to adverse reactions Active 2024-08 12:48: 14 LEVOFLOXACIN Propensity to adverse reactions Active 2024-08 12:48: 28 MOXIFLOXACIN Propensity to adverse reactions Active 2024-08 12:48: 42 BROMPHENIRAM INE Propensity to adverse reactions Active 2024-08 12:48: 57 BUPIVACAINE Propensity to adverse reactions Active 2024-08 12:49: 08 CEPHALEXIN Propensity to adverse reactions Active 2024-08 12:49: 18 CLARITHROMYC IN Propensity to adverse reactions Active 2024-08 12:49: 29 FLUVASTATIN Propensity to adverse reactions Active 2024-08 12:49: 40 HYDROCHLOROT HIAZIDE Propensity to adverse reactions Active 2024-08 12:49: 59 LOVASTATIN Propensity to adverse reactions Active 2024-08 12:50: 09 NITROFURANTO IN Propensity to adverse reactions Active 2024-08 12:50: 23 TRIAMCINOLON E Propensity to adverse reactions Active 2024-08 12:50: 42 Medications Ordered Medication Name Filled Medication Name Start Date Stop Date Current Medication? Ordering Clinician Indication Dosage Frequency Signature (SIG) Comments Components amlodipine 10 mg-valsarta n 320 mg-hydrochl orothiazide 25 mg tablet 2023-08 2- 00:00: 00 06-11 23:59 :00 No [id number] BLOOD PRESSRUE 1 tablet DAILY 1 tablet DAILY (route: oral) Med Classific ation: Cardiovas cular Therapy Agents aspirin 81 mg tablet,art yed release 2023-08 2- 00:00: 00 06-11 23:59 :00 No [id number] PREVENT STROKE 1 tablet DAILY 1 tablet DAILY (route: oral) Med Classific ation: Hematolog ical Agents glyburide 5 mg tablet 2023-08 2 00:00: 00 06-11 23:59 :00 No [id number] DIABETES 4 tablet DAILY 4 tablet DAILY (route: oral) Med Classific ation: Endocrine metformin 1,000 mg tablet 2023-08 2 00:00: 00 06-11 23:59 :00 No [id number] DIABETES 1 tablet 2 TIMES DAILY 1 tablet 2 TIMES DAILY (route: oral) Med Classific ation: Endocrine omeprazole 40 mg capsule,del ayed release 2023-08 2 00:00: 00 06-11 23:59 :00 No [id number] ACID REFLUX/ HEARTBURN 1 capsule DAILY 1 capsule DAILY (route: oral) Med Classific ation: Gastroint estinal Therapy Agents Plavix 75 mg tablet 2023-08 2 00:00: 00 06-11 23:59 :00 No [id number] BLOOD THINNER 1 tablet DAILY 1 tablet DAILY (route: oral) Med Classific ation: Hematolog ical Agents prednisone 20 mg tablet 2023-08 2 00:00: 00 08-04 23:59 :00 No [id number] STERIOD 2 tablet DAILY 2 tablet DAILY (route: oral) Med Classific ation: Endocrine rosuvastati n 5 mg tablet 2023-08 2 00:00: 00 06-11 23:59 :00 No [id number] CHOLESTEROL 1 tablet DAILY 1 tablet DAILY (route: oral) Med Classific ation: Cardiovas cular Therapy Agents Trelegy Ellipta 100 mcg-62.5 mcg-25 mcg powder for inhalation 2023-08 2- 00:00: 00 06-11 23:59 :00 No [id number] COPD 1 inhalat ion DAILY 1 inhalation DAILY (route: inhalation ) Med Classific ation: Respirato ry Therapy Agents trimethopri m 100 mg tablet 2023-08 2 00:00: 00 06-11 23:59 :00 No [id number] BACTERIAL INFECTION 1 tablet DAILY 1 tablet DAILY (route: oral) Med Classific ation: Anti-Infe ctive Agents Ventolin HFA 90 mcg/actuati on aerosol inhaler 2023-08 2 00:00: 00 06-11 23:59 :00 No [id number] SHORTNESS OF BREATH OR WHEEZING 2 puff NEEDED 2 puff NEEDED (route: inhalation ) Med Classific ation: Respirato ry Therapy Agents Vitamin D3 25 mcg (1,000 unit) tablet 2023-08 00:00: 00 06-11 23:59 :00 No [id number] VITAMIN D SUPPLEMENT 1 tablet DAILY 1 tablet DAILY (route: oral) Med Classific ation: Electroly te Balance-N utritiona l Products nystatin 100,000 unit/mL oral suspension 2023-08 00:00: 00 06-11 23:59 :00 No [id number] THRUSH 4 mL 4 TIMES DAILY 4 mL 4 TIMES DAILY (route: oral) Med Classific ation: Mouth-Thr oat-Denta l - Preparati ons buspirone 10 mg tablet 2023-08 00:00: 00 06-11 23:59 :00 No [id number] ANXIETY 1 tablet NEEDED 1 tablet NEEDED (route: oral) Med Classific ation: Central Nervous System Agents paroxetine 10 mg tablet 2023-08 00:00: 00 09-05 23:59 :00 No [id number] ANXIETY/DEP RESSION 1 tablet DAILY 1 tablet DAILY (route: oral) Med Classific ation: Central Nervous System Agents aspirin 81 mg tablet,art yed release 2024-08 0-25 00:00: 00 Yes [id number] STROKE PREVENTION 1 tablet DAILY 1 tablet DAILY (route: oral) Med Classific ation: Hematolog ical Agents cholecalcif jayden (vitamin D3) 25 mcg (1,000 unit) capsule 2024-08 00:00: 00 Yes [id number] SUPPLEMENT 1 capsule DAILY 1 capsule DAILY (route: oral) Med Classific ation: Electroly te Balance-N utritiona l Products citalopram 10 mg tablet 2024-08 00:00: 00 07-12 23:59 :00 No [id number] DEPRESSION 0.5 tablet 2 TIMES DAILY 0.5 tablet 2 TIMES DAILY (route: oral) Med Classific ation: Central Nervous System Agents clopidogrel 75 mg tablet 2024-08 00:00: 00 Yes [id number] BLOOD THINNER 1 tablet DAILY 1 tablet DAILY (route: oral) Med Classific ation: Hematolog ical Agents furosemide 40 mg tablet 2024-08 00:00: 00 Yes [id number] EDEMA 1 tablet DAILY 1 tablet DAILY (route: oral) Med Classific ation: Cardiovas cular Therapy Agents ipratropium 0.5 mg-albutero l 3 mg (2.5 mg base)/3 mL nebulizatio n soln 2024-08 00:00: 00 Yes [id number] COPD 3 mL EVERY 6 HOURS 3 mL EVERY 6 HOURS (route: inhalation ) Med Classific ation: Respirato ry Therapy Agents irbesartan 300 mg tablet 2024-08 00:00: 00 Yes [id number] HYPERTENSIO N 1 tablet DAILY 1 tablet DAILY (route: oral) Med Classific ation: Cardiovas cular Therapy Agents Lantus U-100 Insulin 100 unit/mL subcutaneou s solution 2024-08 00:00: 00 Yes [id number] TYPE 2 DIABETES 10 unit BEDTIME 10 unit BEDTIME (route: subcutaneo us) Med Classific ation: Endocrine metformin 500 mg tablet 2024-08 00:00: 00 Yes [id number] TYPE 2 DIABETES 1 tablet 2 TIMES DAILY 1 tablet 2 TIMES DAILY (route: oral) Med Classific ation: Endocrine metoprolol tartrate 50 mg tablet 2024-08 00:00: 00 Yes [id number] HYPERTENSIO N 0.5 tablet 2 TIMES DAILY 0.5 tablet 2 TIMES DAILY (route: oral) Med Classific ation: Cardiovas cular Therapy Agents oxygen gas for inhalation 2024-08 00:00: 00 Yes [id number] COPD 1.5 Liter DIRECTED 1.5 Liter DIRECTED (route: inhalation ) Med Classific ation: Medical Supplies and Durable Medical Equipment (DME) pantoprazol e 40 mg tablet,art yed release 2024-08 00:00: 00 08-03 23:59 :00 No [id number] ACID REFLUX 1 tablet DAILY 1 tablet DAILY (route: oral) Med Classific ation: Gastroint estinal Therapy Agents rosuvastati n 5 mg tablet 2024-08 00:00: 00 Yes [id number] CHOLESTEROL 1 tablet BEDTIME 1 tablet BEDTIME (route: oral) Med Classific ation: Cardiovas cular Therapy Agents Ventolin HFA 90 mcg/actuati on aerosol inhaler 2024-08 00:00: 00 Yes [id number] WHEEZING/SH ORT OF BREATH 2 puff NEEDED 2 puff NEEDED (route: inhalation ) Med Classific ation: Respirato ry Therapy Agents Ventolin HFA 90 mcg/actuati on aerosol inhaler 2024-08 00:00: 00 Yes [id number] Wheezing 2 puff NEEDED 2 puff NEEDED (route: inhalation ) Med Classific ation: Respirato ry Therapy Agents magnesium glycinate,m agnesium oxide 120 mg capsule 2024-08 00:00: 00 Yes [id number] VITAMIN DEFICIENCY Per instruc tions DAILY Per instructio ns DAILY (route: oral) Med Classific ation: Electroly te Balance-N utritiona l Products meclizine 25 mg tablet 2024-08 00:00: 00 Yes [id number] DIZZINESS 1 tablet NEEDED 1 tablet NEEDED (route: oral) Med Classific ation: Gastroint estinal Therapy Agents omeprazole 40 mg capsule,del ayed release 2024-08 2- 00:00: 00 Yes [id number] GERD 1 capsule DAILY 1 capsule DAILY (route: oral) Med Classific ation: Gastroint estinal Therapy Agents ondansetron HCl 4 mg tablet 2024-08 2- 00:00: 00 Yes [id number] NAUSEA AND VOMITING 1 tablet NEEDED 1 tablet NEEDED (route: oral) Med Classific ation: Gastroint estinal Therapy Agents Vital Signs Vital Name Observation Time Observation Value Commen ts Temperature 2025-08-21 14:35:00.000 97.8 [degF] Temperature 2025-08-21 12:26:00.000 97.8 [degF] Temperature 2025-08-18 12:33:00.000 97.8 [degF] Temperature 2025-08-18 11:18:00.000 97.3 [degF] Temperature 2025-08-15 13:29:00.000 96.9 [degF] Temperature 2025-08-15 13:28:00.000 96.9 [degF] Temperature 2025-08-11 12:28:00.000 98.2 [degF] Temperature 2025-08-09 13:16:00.000 96.8 [degF] Temperature 2025-08-08 10:56:00.000 97.9 [degF] Temperature 2025-08-03 15:12:00.000 97.4 [degF] Temperature 2025-08-03 12:18:00.000 98.4 [degF] Temperature 2025-08-02 14:19:00.000 97 [degF] Temperature 2025-07-26 09:49:00.000 97.5 [degF] Temperature 2025-07-25 13:45:00.000 97 [degF] Temperature 2025-07-25 12:14:00.000 97 [degF] Temperature 2025-07-21 13:15:00.000 97.8 [degF] Temperature 2025-07-21 12:44:00.000 97.1 [degF] Temperature 2025-07-20 11:19:00.000 96.8 [degF] Temperature 2025-07-20 11:08:00.000 96.9 [degF] Temperature 2025-07-12 13:38:00.000 97.7 [degF] Temperature 2025-07-11 11:47:00.000 97 [degF] Temperature 2025-07-05 17:08:00.000 97.5 [degF] Temperature 2025-07-05 12:39:00.000 96.8 [degF] Temperature 2025-07-04 11:01:00.000 97.2 [degF] Temperature 2025-06-29 11:38:00.000 96.7 [degF] Temperature 2025-06-28 12:38:00.000 96.7 [degF] Temperature 2025-06-27 13:07:00.000 97.2 [degF] Temperature 2025-06-24 11:21:00.000 97.3 [degF] BMI (%) 2025-06-24 11:21:00.000 25 kg/m2 Height 2025-06-24 11:21:00.000 62 [in_us] Pulse 2025-08-21 14:35:00.000 60 /min Pulse 2025-08-21 12:26:00.000 60 /min Pulse 2025-08-18 12:33:00.000 63 /min Pulse 2025-08-18 11:18:00.000 62 /min Pulse 2025-08-15 13:29:00.000 64 /min Pulse 2025-08-15 13:28:00.000 64 /min Pulse 2025-08-11 12:28:00.000 54 /min Pulse 2025-08-09 13:16:00.000 64 /min Pulse 2025-08-08 10:56:00.000 64 /min Pulse 2025-08-03 15:12:00.000 71 /min Pulse 2025-08-03 12:18:00.000 68 /min Pulse 2025-08-02 14:19:00.000 68 /min Pulse 2025-07-26 09:49:00.000 61 /min Pulse 2025-07-25 13:45:00.000 73 /min Pulse 2025-07-25 12:14:00.000 72 /min Pulse 2025-07-21 13:15:00.000 76 /min Pulse 2025-07-21 12:44:00.000 72 /min Pulse 2025-07-20 11:19:00.000 70 /min Pulse 2025-07-20 11:08:00.000 70 /min Pulse 2025-07-12 13:38:00.000 72 /min Pulse 2025-07-11 11:47:00.000 66 /min Pulse 2025-07-05 17:08:00.000 73 /min Pulse 2025-07-05 12:39:00.000 72 /min Pulse 2025-07-04 11:01:00.000 67 /min Pulse 2025-06-29 16:50:00.000 58 /min Pulse 2025-06-29 11:38:00.000 64 /min Pulse 2025-06-28 12:38:00.000 67 /min Pulse 2025-06-27 13:07:00.000 65 /min Pulse 2025-06-24 11:21:00.000 57 /min O2 Saturation (%) 2025-08-21 14:35:00.000 99 % O2 Saturation (%) 2025-08-21 12:26:00.000 99 % O2 Saturation (%) 2025-08-18 12:33:00.000 94 % O2 Saturation (%) 2025-08-18 11:18:00.000 95 % O2 Saturation (%) 2025-08-15 13:29:00.000 93 % O2 Saturation (%) 2025-08-15 13:28:00.000 93 % O2 Saturation (%) 2025-08-11 12:28:00.000 95 % O2 Saturation (%) 2025-08-09 13:16:00.000 96 % O2 Saturation (%) 2025-08-08 10:56:00.000 96 % O2 Saturation (%) 2025-08-03 15:12:00.000 95 % O2 Saturation (%) 2025-08-03 12:18:00.000 94 % O2 Saturation (%) 2025-08-02 14:19:00.000 94 % O2 Saturation (%) 2025-07-26 09:49:00.000 92 % O2 Saturation (%) 2025-07-25 13:45:00.000 96 % O2 Saturation (%) 2025-07-25 12:14:00.000 96 % O2 Saturation (%) 2025-07-21 13:15:00.000 94 % O2 Saturation (%) 2025-07-21 12:44:00.000 95 % O2 Saturation (%) 2025-07-20 11:19:00.000 95 % O2 Saturation (%) 2025-07-20 11:08:00.000 95 % O2 Saturation (%) 2025-07-12 13:38:00.000 95 % O2 Saturation (%) 2025-07-11 11:47:00.000 95 % O2 Saturation (%) 2025-07-05 17:08:00.000 94 % O2 Saturation (%) 2025-07-05 12:39:00.000 94 % O2 Saturation (%) 2025-07-04 11:01:00.000 88 % O2 Saturation (%) 2025-06-29 16:50:00.000 94 % O2 Saturation (%) 2025-06-29 11:38:00.000 97 % O2 Saturation (%) 2025-06-28 12:38:00.000 98 % O2 Saturation (%) 2025-06-27 13:07:00.000 96 % O2 Saturation (%) 2025-06-24 11:21:00.000 94 % Respirations 2025-08-21 14:35:00.000 18 /min Respirations 2025-08-21 12:26:00.000 18 /min Respirations 2025-08-18 12:33:00.000 18 /min Respirations 2025-08-18 11:18:00.000 18 /min Respirations 2025-08-15 13:29:00.000 18 /min Respirations 2025-08-15 13:28:00.000 18 /min Respirations 2025-08-11 12:28:00.000 18 /min Respirations 2025-08-09 13:16:00.000 18 /min Respirations 2025-08-08 10:56:00.000 21 /min Respirations 2025-08-03 15:12:00.000 18 /min Respirations 2025-08-03 12:18:00.000 18 /min Respirations 2025-08-02 14:19:00.000 18 /min Respirations 2025-07-26 09:49:00.000 18 /min Respirations 2025-07-25 13:45:00.000 18 /min Respirations 2025-07-25 12:14:00.000 18 /min Respirations 2025-07-21 13:15:00.000 18 /min Respirations 2025-07-21 12:44:00.000 18 /min Respirations 2025-07-20 11:19:00.000 18 /min Respirations 2025-07-20 11:08:00.000 18 /min Respirations 2025-07-12 13:38:00.000 16 /min Respirations 2025-07-11 11:47:00.000 21 /min Respirations 2025-07-05 17:08:00.000 18 /min Respirations 2025-07-05 12:39:00.000 18 /min Respirations 2025-07-04 11:01:00.000 21 /min Respirations 2025-06-29 16:50:00.000 18 /min Respirations 2025-06-29 11:38:00.000 18 /min Respirations 2025-06-28 12:38:00.000 20 /min Respirations 2025-06-27 13:07:00.000 24 /min Respirations 2025-06-24 11:21:00.000 18 /min Weight (lbs) 2025-08-21 14:35:00.000 118 [lb_av] Weight (lbs) 2025-08-21 12:26:00.000 118 [lb_av] Weight (lbs) 2025-08-18 12:33:00.000 115 [lb_av] Weight (lbs) 2025-08-18 11:18:00.000 115 [lb_av] Weight (lbs) 2025-08-15 13:29:00.000 115.6 [lb_av] Weight (lbs) 2025-08-15 13:28:00.000 1158 [lb_av] Weight (lbs) 2025-08-11 12:28:00.000 115 [lb_av] Weight (lbs) 2025-08-09 13:16:00.000 116 [lb_av] Weight (lbs) 2025-08-08 10:56:00.000 116 [lb_av] Weight (lbs) 2025-08-03 12:18:00.000 123 [lb_av] Weight (lbs) 2025-08-02 14:19:00.000 119 [lb_av] Weight (lbs) 2025-07-25 20:06:00.000 123.4 [lb_av] Weight (lbs) 2025-07-25 13:45:00.000 123.4 [lb_av] Weight (lbs) 2025-07-21 13:15:00.000 120 [lb_av] Weight (lbs) 2025-07-21 12:44:00.000 120 [lb_av] Weight (lbs) 2025-07-20 11:19:00.000 123 [lb_av] Weight (lbs) 2025-07-20 11:08:00.000 123 [lb_av] Weight (lbs) 2025-07-12 13:38:00.000 128 [lb_av] Weight (lbs) 2025-07-11 11:47:00.000 127 [lb_av] Weight (lbs) 2025-07-05 17:08:00.000 128 [lb_av] Weight (lbs) 2025-07-05 12:39:00.000 114 [lb_av] Weight (lbs) 2025-07-04 11:01:00.000 120 [lb_av] Weight (lbs) 2025-06-29 11:38:00.000 129.4 [lb_av] Weight (lbs) 2025-06-28 12:38:00.000 129.2 [lb_av] Weight (lbs) 2025-06-27 13:07:00.000 129.2 [lb_av] Weight (lbs) 2025-06-24 11:21:00.000 139 [lb_av] Systolic Blood Pressure 2025-08-21 14:39:00.000 163 mm [Hg] Systolic Blood Pressure 2025-08-21 12:26:00.000 170 mm [Hg] Systolic Blood Pressure 2025-08-18 12:33:00.000 146 mm [Hg] Systolic Blood Pressure 2025-08-18 11:18:00.000 162 mm [Hg] Systolic Blood Pressure 2025-08-15 13:29:00.000 148 mm [Hg] Systolic Blood Pressure 2025-08-15 13:28:00.000 148 mm [Hg] Systolic Blood Pressure 2025-08-11 12:28:00.000 148 mm [Hg] Systolic Blood Pressure 2025-08-09 13:16:00.000 131 mm [Hg] Systolic Blood Pressure 2025-08-08 10:56:00.000 141 mm [Hg] Systolic Blood Pressure 2025-08-03 15:12:00.000 142 mm [Hg] Systolic Blood Pressure 2025-08-03 12:18:00.000 132 mm [Hg] Systolic Blood Pressure 2025-08-02 14:19:00.000 140 mm [Hg] Systolic Blood Pressure 2025-07-26 09:49:00.000 140 mm [Hg] Systolic Blood Pressure 2025-07-25 13:45:00.000 153 mm [Hg] Systolic Blood Pressure 2025-07-25 12:14:00.000 153 mm [Hg] Systolic Blood Pressure 2025-07-21 13:15:00.000 155 mm [Hg] Systolic Blood Pressure 2025-07-21 12:44:00.000 176 mm [Hg] Systolic Blood Pressure 2025-07-20 11:19:00.000 135 mm [Hg] Systolic Blood Pressure 2025-07-20 11:08:00.000 135 mm [Hg] Systolic Blood Pressure 2025-07-12 13:38:00.000 118 mm [Hg] Systolic Blood Pressure 2025-07-11 11:47:00.000 118 mm [Hg] Systolic Blood Pressure 2025-07-05 17:08:00.000 138 mm [Hg] Systolic Blood Pressure 2025-07-05 12:39:00.000 116 mm [Hg] Systolic Blood Pressure 2025-07-04 11:01:00.000 127 mm [Hg] Systolic Blood Pressure 2025-06-29 16:50:00.000 84 mm[ Hg] Systolic Blood Pressure 2025-06-29 11:38:00.000 123 mm [Hg] Systolic Blood Pressure 2025-06-28 12:38:00.000 137 mm [Hg] Systolic Blood Pressure 2025-06-27 13:07:00.000 142 mm [Hg] Systolic Blood Pressure 2025-06-24 11:21:00.000 122 mm [Hg] Diastolic Blood Pressure 2025-08-21 14:39:00.000 81 mm [Hg] Diastolic Blood Pressure 2025-08-21 12:26:00.000 77 mm [Hg] Diastolic Blood Pressure 2025-08-18 12:33:00.000 77 mm [Hg] Diastolic Blood Pressure 2025-08-18 11:18:00.000 80 mm [Hg] Diastolic Blood Pressure 2025-08-15 13:29:00.000 78 mm [Hg] Diastolic Blood Pressure 2025-08-15 13:28:00.000 78 mm [Hg] Diastolic Blood Pressure 2025-08-11 12:28:00.000 56 mm [Hg] Diastolic Blood Pressure 2025-08-09 13:16:00.000 65 mm [Hg] Diastolic Blood Pressure 2025-08-08 10:56:00.000 76 mm [Hg] Diastolic Blood Pressure 2025-08-03 15:12:00.000 78 mm [Hg] Diastolic Blood Pressure 2025-08-03 12:18:00.000 62 mm [Hg] Diastolic Blood Pressure 2025-08-02 14:19:00.000 77 mm [Hg] Diastolic Blood Pressure 2025-07-26 09:49:00.000 78 mm [Hg] Diastolic Blood Pressure 2025-07-25 13:45:00.000 80 mm [Hg] Diastolic Blood Pressure 2025-07-25 12:14:00.000 73 mm [Hg] Diastolic Blood Pressure 2025-07-21 13:15:00.000 71 mm [Hg] Diastolic Blood Pressure 2025-07-21 12:44:00.000 84 mm [Hg] Diastolic Blood Pressure 2025-07-20 11:19:00.000 70 mm [Hg] Diastolic Blood Pressure 2025-07-20 11:08:00.000 70 mm [Hg] Diastolic Blood Pressure 2025-07-12 13:38:00.000 58 mm [Hg] Diastolic Blood Pressure 2025-07-11 11:47:00.000 69 mm [Hg] Diastolic Blood Pressure 2025-07-05 17:08:00.000 68 mm [Hg] Diastolic Blood Pressure 2025-07-05 12:39:00.000 61 mm [Hg] Diastolic Blood Pressure 2025-07-04 11:01:00.000 64 mm [Hg] Diastolic Blood Pressure 2025-06-29 16:50:00.000 62 mm [Hg] Diastolic Blood Pressure 2025-06-29 11:38:00.000 67 mm [Hg] Diastolic Blood Pressure 2025-06-28 12:38:00.000 70 mm [Hg] Diastolic Blood Pressure 2025-06-27 13:07:00.000 55 mm [Hg] Diastolic Blood Pressure 2025-06-24 11:21:00.000 58 mm [Hg] Plan of Treatment Planned Activity Planned Date Details Comments Future Scheduled Test SKILLED NU RSE PRN VISIT ORDER: 2 NEEDED IN PERSON FOR 9 WEEKS AND 1 NEEDED REMOTE VISIT FOR SN FOR 9 WEEKS (NUMBER) OF PRN VISITS MAY BE PERFORMED DURING THIS CERTIFICATION PERIOD FOR THE FOLLOWING REASON(S): FALLS, NAUSEA, VOMITING, FEVER, DIARRHEA, CONSTIPATION, SOA, HYPOTENSION, HYPERTENSION, HYPOGLYCEMIA, HYPERGLYCEMIA SKILLED NURSE TO EVALUATE AND DEVELOP PLAN OF CARE TO BE SIGNED BY THE PHYSICIAN. SKILLED NURSE TO ASSESS/EVALUATE ANY CONDITIONS THAT PRESENT THEMSELVES AND THAT WILL IMPACT THE PLAN OF CARE DURING THE COURSE OF THE EPISODE TO IDENTIFY CHANGES AND INTERVENE TO MINIMIZE COMPLICATIONS. TEACH AND MONITOR PATIENT/CAREGIVER ABILITY TO SAFELY ADMINISTER MEDICATIONS. PHONE TOUCHPOINTS CAN BE PERFORMED NEEDED TO SUPPLEMENT THE PLAN OF CARE. [code = SKILLED NURSE PRN VISIT ORDER: 2 NEEDED IN PERSON FOR 9 WEEKS AND 1 NEEDED REMOTE VISIT FOR SN FOR 9 WEEKS (NUMBER) OF PRN VISITS MAY BE PERFORMED DURING THIS CERTIFICATION PERIOD FOR THE FOLLOWING REASON(S): FALLS, NAUSEA, VOMITING, FEVER, DIARRHEA, CONSTIPATION, SOA, HYPOTENSION, HYPERTENSION, HYPOGLYCEMIA, HYPERGLYCEMIA SKILLED NURSE TO EVALUATE AND DEVELOP PLAN OF CARE TO BE SIGNED BY THE PHYSICIAN. SKILLED NURSE TO ASSESS/EVALUATE ANY CONDITIONS THAT PRESENT THEMSELVES AND THAT WILL IMPACT THE PLAN OF CARE DURING THE COURSE OF THE EPISODE TO IDENTIFY CHANGES AND INTERVENE TO MINIMIZE COMPLICATIONS. TEACH AND MONITOR PATIENT/CAREGIVER ABILITY TO SAFELY ADMINISTER MEDICATIONS. PHONE TOUCHPOINTS CAN BE PERFORMED NEEDED TO SUPPLEMENT THE PLAN OF CARE.] Future Scheduled Test INSTRUCT P ATIENT/CAREGIVER IN OXYGEN THERAPY INCLUDING ADMINISTRATION, CARE OF EQUIPMENT AND SAFETY. [code = INSTRUCT PATIENT/CAREGIVER IN OXYGEN THERAPY INCLUDING ADMINISTRATION, CARE OF EQUIPMENT AND SAFETY.] Future Scheduled Test SKILLED NU RSE FOR INSTRUCTIONS / REINFORCEMENT OF / MANAGEMENT OF DIABETES TO INCLUDE DIET, SKIN CARE, MEDICATION MANAGEMENT, BLOOD GLUCOSE TESTING AND DIABETIC FOOT CARE. CHECKS BLOOD SUGAR BY GLUCOMETER NEEDED DOES NOT CHECK ON REGULAR BASIS [code = SKILLED NURSE FOR INSTRUCTIONS / REINFORCEMENT OF / MANAGEMENT OF DIABETES TO INCLUDE DIET, SKIN CARE, MEDICATION MANAGEMENT, BLOOD GLUCOSE TESTING AND DIABETIC FOOT CARE. CHECKS BLOOD SUGAR BY GLUCOMETER NEEDED DOES NOT CHECK ON REGULAR BASIS] Future Scheduled Test SKILLED NU RSE TO PROVIDE SKILLED TEACHING TO PATIENT/CAREGIVER OF HYPERTENSION TO INCLUDE MEDICATION MANAGEMENT, SELF-ASSESSMENT, LOW SODIUM DIET, AND TRACKING OF BLOOD PRESSURE RESULTS. [code = SKILLED NURSE TO PROVIDE SKILLED TEACHING TO PATIENT/CAREGIVER OF HYPERTENSION TO INCLUDE MEDICATION MANAGEMENT, SELF-ASSESSMENT, LOW SODIUM DIET, AND TRACKING OF BLOOD PRESSURE RESULTS.] Future Scheduled Test SKILLED NU RSE TO OBSERVE AND ASSESS RESPIRATORY SYSTEM TO IDENTIFY CHANGES AND INTERVENE TO MINIMIZE COMPLICATIONS. SKILLED NURSE TO PROVIDE SKILLED TEACHING RELATED TO ALTERED RESPIRATORY STATUS INCLUDING PATHOPHYSIOLOGY, NUTRITION, MEDICATION REGIMEN, AND PERMITTED ACTIVITIES. [code = SKILLED NURSE TO OBSERVE AND ASSESS RESPIRATORY SYSTEM TO IDENTIFY CHANGES AND INTERVENE TO MINIMIZE COMPLICATIONS. SKILLED NURSE TO PROVIDE SKILLED TEACHING RELATED TO ALTERED RESPIRATORY STATUS INCLUDING PATHOPHYSIOLOGY, NUTRITION, MEDICATION REGIMEN, AND PERMITTED ACTIVITIES.] Future Scheduled Test SKILLED NU RSE TO OBSERVE AND ASSESS PATIENT WITH GENERALIZED DEPRESSION. ASSESS NEED FOR MEDICATION, MEDICATION CHANGES AND POTENTIAL NEED FOR REFERRAL TO PROVIDE COUNSELING AND ASSISTANCE WITH MANAGING DEPRESSION. [code = SKILLED NURSE TO OBSERVE AND ASSESS PATIENT WITH GENERALIZED DEPRESSION. ASSESS NEED FOR MEDICATION, MEDICATION CHANGES AND POTENTIAL NEED FOR REFERRAL TO PROVIDE COUNSELING AND ASSISTANCE WITH MANAGING DEPRESSION.] Future Scheduled Test SKILLED NU RSE FOR OBSERVATION/ASSESSMENT OF PAIN, EFFECTIVENESS OF PAIN MANAGEMENT INCLUDING MEDICATION REVIEW AND PHARMACOLOGICAL AND NONPHARMACOLOGICAL TREATMENTS AND SKILLED TEACHING RELATED TO PAIN MANAGEMENT. SKILLED NURSE TO INTERVENE WITH INCREASED PAIN LEVEL TO MINIMIZE COMPLICATIONS. [code = SKILLED NURSE FOR OBSERVATION/ASSESSMENT OF PAIN, EFFECTIVENESS OF PAIN MANAGEMENT INCLUDING MEDICATION REVIEW AND PHARMACOLOGICAL AND NONPHARMACOLOGICAL TREATMENTS AND SKILLED TEACHING RELATED TO PAIN MANAGEMENT. SKILLED NURSE TO INTERVENE WITH INCREASED PAIN LEVEL TO MINIMIZE COMPLICATIONS.] Future Scheduled Test SKILLED NU RSE TO FOCUS ON IDENTIFIED NEED FOR HIGH RISK MEDICATION INTERVENTION. [code = SKILLED NURSE TO FOCUS ON IDENTIFIED NEED FOR HIGH RISK MEDICATION INTERVENTION.] Future Scheduled Test SKILLED NU RSE FOR OBSERVATION / ASSESSMENT OF PATIENT'S IMPAIRED NUTRITION RELATED TO MALNUTRITION. INSTRUCT PATIENT / CAREGIVER ON INTERVENTIONS DESIGNED TO IMPROVE NUTRITIONAL INTAKE AND PATIENT WELL BEING. [code = SKILLED NURSE FOR OBSERVATION / ASSESSMENT OF PATIENT'S IMPAIRED NUTRITION RELATED TO MALNUTRITION. INSTRUCT PATIENT / CAREGIVER ON INTERVENTIONS DESIGNED TO IMPROVE NUTRITIONAL INTAKE AND PATIENT WELL BEING.] Future Scheduled Test SKILLED NU RSE TO OBSERVE AND ASSESS INTEGUMENTARY STATUS TO IDENTIFY CHANGES AND INTERVENE TO MINIMIZE COMPLICATIONS. CLINICIAN TO PROVIDE SKILLED TEACHING RELATED TO ALTERED SKIN INTEGRITY INCLUDING PATHOPHYSIOLOGY, NUTRITION, MEDICATION REGIMEN, AND MEASURES TO PROMOTE OPTIMAL SKIN INTEGRITY. [code = SKILLED NURSE TO OBSERVE AND ASSESS INTEGUMENTARY STATUS TO IDENTIFY CHANGES AND INTERVENE TO MINIMIZE COMPLICATIONS. CLINICIAN TO PROVIDE SKILLED TEACHING RELATED TO ALTERED SKIN INTEGRITY INCLUDING PATHOPHYSIOLOGY, NUTRITION, MEDICATION REGIMEN, AND MEASURES TO PROMOTE OPTIMAL SKIN INTEGRITY.] Future Scheduled Test PHYSICAL T HERAPIST TO EVALUATE/ASSESS AND DEVELOP PHYSICAL THERAPY PLAN OF CARE TO BE SIGNED BY THE PHYSICIAN. [code = PHYSICAL THERAPIST TO EVALUATE/ASSESS AND DEVELOP PHYSICAL THERAPY PLAN OF CARE TO BE SIGNED BY THE PHYSICIAN.] Future Scheduled Test SPEECH THE RAPIST TO EVALUATE/ASSESS AND DEVELOP SPEECH THERAPY PLAN OF CARE TO BE SIGNED BY THE PHYSICIAN. [code = SPEECH THERAPIST TO EVALUATE/ASSESS AND DEVELOP SPEECH THERAPY PLAN OF CARE TO BE SIGNED BY THE PHYSICIAN.] Future Scheduled Test OCCUPATION AL THERAPIST TO EVALUATE/ASSESS AND DEVELOP OCCUPATIONAL THERAPY PLAN OF CARE TO BE SIGNED BY THE PHYSICIAN. [code = OCCUPATIONAL THERAPIST TO EVALUATE/ASSESS AND DEVELOP OCCUPATIONAL THERAPY PLAN OF CARE TO BE SIGNED BY THE PHYSICIAN.] Future Scheduled Test SKILLED NU RSE TO OBSERVE AND ASSESS CARDIOVASCULAR SYSTEM TO IDENTIFY CHANGES AND INTERVENE TO MINIMIZE COMPLICATIONS AND PROMOTE SELF CARE MANAGEMENT. SKILLED NURSE TO PROVIDE SKILLED TEACHING RELATED TO PATHOPHYSIOLOGY, DISEASE MANAGEMENT, SAFE MEDICATION ADMINISTRATION, WEIGHT/EDEMA MANAGEMENT, PERMITTED ACTIVITIES, S/SX OF EXACERBATION, AND S/SX TO NOTIFY AGENCY, PHYSICIAN OR 911 RELATED TO THE DIAGNOSIS OF CHF, HYPERTENSION [code = SKILLED NURSE TO OBSERVE AND ASSESS CARDIOVASCULAR SYSTEM TO IDENTIFY CHANGES AND INTERVENE TO MINIMIZE COMPLICATIONS AND PROMOTE SELF CARE MANAGEMENT. SKILLED NURSE TO PROVIDE SKILLED TEACHING RELATED TO PATHOPHYSIOLOGY, DISEASE MANAGEMENT, SAFE MEDICATION ADMINISTRATION, WEIGHT/EDEMA MANAGEMENT, PERMITTED ACTIVITIES, S/SX OF EXACERBATION, AND S/SX TO NOTIFY AGENCY, PHYSICIAN OR 911 RELATED TO THE DIAGNOSIS OF CHF, HYPERTENSION] Future Scheduled Test PATIENT/CA REGIVER WILL BE KNOWLEDGEABLE OF DISCHARGE PLANS AND WILL DEMONSTRATE/PROVIDE EDUCATION AND RESOURCES NEEDED TO MAINTAIN HEALTH. [code = PATIENT/CAREGIVER WILL BE KNOWLEDGEABLE OF DISCHARGE PLANS AND WILL DEMONSTRATE/PROVIDE EDUCATION AND RESOURCES NEEDED TO MAINTAIN HEALTH.] Future Scheduled Test PSYCHOSOCI AL / COGNITIVE ASSESSMENT INDICATES THE FOLLOWING NEEDS: (SOCIAL, FINANCIAL, TRANSPORTATION, ADDITIONAL CARE PROVIDERS/ DISCIPLINES, REFERRALS TO OUTSIDE ENTITIES, ETC.). [code = PSYCHOSOCIAL / COGNITIVE ASSESSMENT INDICATES THE FOLLOWING NEEDS: (SOCIAL, FINANCIAL, TRANSPORTATION, ADDITIONAL CARE PROVIDERS/ DISCIPLINES, REFERRALS TO OUTSIDE ENTITIES, ETC.).] Future Scheduled Test AGENCY SHAWNA L DISCHARGE PATIENT TO PHYSICIAN/HEALTH CARE PROVIDER AND MAY ACCEPT ORDERS FROM THE FOLLOWING PHYSICIANS: DYAN VILLALPANDO [code = AGENCY WILL DISCHARGE PATIENT TO PHYSICIAN/HEALTH CARE PROVIDER AND MAY ACCEPT ORDERS FROM THE FOLLOWING PHYSICIANS: DYAN VILLALPANDO] Future Scheduled Test SN REMOTE VIDEO VISIT(S) TO ASSESS/EVALUATE AND PROVIDE EDUCATION/TRAINING ON INTERVENTIONS/PROCEDURES PER THE POC, SAFE MEDICATION ADMINISTRATION, DISEASE MANAGEMENT , SIGNS/SYMPTOMS OF EXACERBATION, METHODS TO PREVENT EXACERBATION, AND SIGNS/SYMPTOMS TO REPORT AGENCY, PHYSICIAN OR 911. [code = SN REMOTE VIDEO VISIT(S) TO ASSESS/EVALUATE AND PROVIDE EDUCATION/TRAINING ON INTERVENTIONS/PROCEDURES PER THE POC, SAFE MEDICATION ADMINISTRATION, DISEASE MANAGEMENT , SIGNS/SYMPTOMS OF EXACERBATION, METHODS TO PREVENT EXACERBATION, AND SIGNS/SYMPTOMS TO REPORT AGENCY, PHYSICIAN OR 911.] Future Scheduled Test CLINICIAN TO EDUCATE PATIENT / CAREGIVER IN FALL PREVENTION AND PROVIDE INTERVENTIONS TO REDUCE FALL RISK AND ENHANCE HOME SAFETY [code = CLINICIAN TO EDUCATE PATIENT / CAREGIVER IN FALL PREVENTION AND PROVIDE INTERVENTIONS TO REDUCE FALL RISK AND ENHANCE HOME SAFETY] Future Scheduled Test PHYSICAL T HERAPIST TO EVALUATE/ASSESS AND DEVELOP PHYSICAL THERAPY PLAN OF CARE TO BE SIGNED BY THE PHYSICIAN. TEACH AND MONITOR PATIENT/CAREGIVER ABILITY TO SAFELY ADMINISTER MEDICATIONS. PHONE TOUCHPOINTS CAN BE PERFORMED NEEDED TO SUPPLEMENT THE PLAN OF CARE. PHYSICAL THERAPY TO ESTABLISH/UPGRADE HOME EXERCISE PROGRAM AND PROVIDE THERAPEUTIC EXERCISES AND/OR MANUAL THERAPY TECHNIQUES DESIGNED TO RESTORE FUNCTIONAL STRENGTH AND ROM. PHYSICAL THERAPY TO PROVIDE TECHNIQUES DESIGNED TO IMPROVE BED MOBILITY. PHYSICAL THERAPY TO INSTRUCT IN SAFE TRANSFERS WITH APPROPRIATE BODY MECHANICS AND EQUIPMENT. CLINICIAN TO EDUCATE PATIENT / CAREGIVER IN FALL PREVENTION AND PROVIDE INTERVENTIONS TO REDUCE FALL RISK AND ENHANCE HOME SAFETY PHYSICAL THERAPY TO PROVIDE BALANCE TRAINING TO REDUCE FALL RISK DURING FUNCTIONAL ACTIVITIES. PHYSICAL THERAPY TO EVALUATE GAIT AND PROVIDE GAIT TRAINING USING APPROPRIATE ASSISTIVE DEVICE NEEDED TO ENSURE PATIENT SAFETY. PATIENT/CAREGIVER WILL BE KNOWLEDGEABLE OF DISCHARGE PLANS AND WILL DEMONSTRATE/PROVIDE EDUCATION AND RESOURCES NEEDED TO MAINTAIN HEALTH. [code = PHYSICAL THERAPIST TO EVALUATE/ASSESS AND DEVELOP PHYSICAL THERAPY PLAN OF CARE TO BE SIGNED BY THE PHYSICIAN. TEACH AND MONITOR PATIENT/CAREGIVER ABILITY TO SAFELY ADMINISTER MEDICATIONS. PHONE TOUCHPOINTS CAN BE PERFORMED NEEDED TO SUPPLEMENT THE PLAN OF CARE. PHYSICAL THERAPY TO ESTABLISH/UPGRADE HOME EXERCISE PROGRAM AND PROVIDE THERAPEUTIC EXERCISES AND/OR MANUAL THERAPY TECHNIQUES DESIGNED TO RESTORE FUNCTIONAL STRENGTH AND ROM. PHYSICAL THERAPY TO PROVIDE TECHNIQUES DESIGNED TO IMPROVE BED MOBILITY. PHYSICAL THERAPY TO INSTRUCT IN SAFE TRANSFERS WITH APPROPRIATE BODY MECHANICS AND EQUIPMENT. CLINICIAN TO EDUCATE PATIENT / CAREGIVER IN FALL PREVENTION AND PROVIDE INTERVENTIONS TO REDUCE FALL RISK AND ENHANCE HOME SAFETY PHYSICAL THERAPY TO PROVIDE BALANCE TRAINING TO REDUCE FALL RISK DURING FUNCTIONAL ACTIVITIES. PHYSICAL THERAPY TO EVALUATE GAIT AND PROVIDE GAIT TRAINING USING APPROPRIATE ASSISTIVE DEVICE NEEDED TO ENSURE PATIENT SAFETY. PATIENT/CAREGIVER WILL BE KNOWLEDGEABLE OF DISCHARGE PLANS AND WILL DEMONSTRATE/PROVIDE EDUCATION AND RESOURCES NEEDED TO MAINTAIN HEALTH.] Future Scheduled Test OCCUPATION AL THERAPIST TO EVALUATE PATIENT FOR OT SERVICES AND DEVELOP PLAN OF CARE TO BE SIGNED BY THE PHYSICIAN. TEACH AND MONITOR PATIENT/CAREGIVER ABILITY TO SAFELY ADMINISTER MEDICATIONS. PHONE TOUCHPOINTS CAN BE PERFORMED NEEDED TO SUPPLEMENT THE PLAN OF CARE. OCCUPATIONAL THERAPY TO ESTABLISH/UPGRADE HOME EXERCISE PROGRAM AND PROVIDE THERAPEUTIC EXERCISES AND/OR SOFT TISSUE/JOINT MOBILIZATION DESIGNED TO RESTORE FUNCTIONAL STRENGTH AND ROM. OCCUPATIONAL THERAPY TO INSTRUCT IN SAFE TRANSFERS USING APPROPRIATE BODY MECHANICS AND EQUIPMENT. CLINICIAN TO EDUCATE PATIENT / CAREGIVER IN FALL PREVENTION AND PROVIDE INTERVENTIONS TO REDUCE FALL RISK AND ENHANCE HOME SAFETY OCCUPATIONAL THERAPIST TO PROVIDE INSTRUCTION REGARDING SAFE USE OF ADAPTIVE EQUIPMENT. OCCUPATIONAL THERAPIST TO PROVIDE PATIENT / CAREGIVER WITH ADL TRAINING TO INCREASE INDEPENDENCE. OCCUPATIONAL THERAPY TO PROVIDE BALANCE TRAINING TO REDUCE FALL RISK DURING FUNCTIONAL ACTIVITIES. [code = OCCUPATIONAL THERAPIST TO EVALUATE PATIENT FOR OT SERVICES AND DEVELOP PLAN OF CARE TO BE SIGNED BY THE PHYSICIAN. TEACH AND MONITOR PATIENT/CAREGIVER ABILITY TO SAFELY ADMINISTER MEDICATIONS. PHONE TOUCHPOINTS CAN BE PERFORMED NEEDED TO SUPPLEMENT THE PLAN OF CARE. OCCUPATIONAL THERAPY TO ESTABLISH/UPGRADE HOME EXERCISE PROGRAM AND PROVIDE THERAPEUTIC EXERCISES AND/OR SOFT TISSUE/JOINT MOBILIZATION DESIGNED TO RESTORE FUNCTIONAL STRENGTH AND ROM. OCCUPATIONAL THERAPY TO INSTRUCT IN SAFE TRANSFERS USING APPROPRIATE BODY MECHANICS AND EQUIPMENT. CLINICIAN TO EDUCATE PATIENT / CAREGIVER IN FALL PREVENTION AND PROVIDE INTERVENTIONS TO REDUCE FALL RISK AND ENHANCE HOME SAFETY OCCUPATIONAL THERAPIST TO PROVIDE INSTRUCTION REGARDING SAFE USE OF ADAPTIVE EQUIPMENT. OCCUPATIONAL THERAPIST TO PROVIDE PATIENT / CAREGIVER WITH ADL TRAINING TO INCREASE INDEPENDENCE. OCCUPATIONAL THERAPY TO PROVIDE BALANCE TRAINING TO REDUCE FALL RISK DURING FUNCTIONAL ACTIVITIES.] Future Scheduled Test 07/07/[address] EVAL UNTIL WEEK OF 07/10 [code = 07/07/[address] EVAL UNTIL WEEK OF 07/10] Future Scheduled Test 07/07/25 DE LAY SPEECH THERAPY EVALUATION TO THE WEEK 07.10.25 PER PT FAMILY REQUEST. VO RECEIVED FROM SARAH 1016PM [code = 07/07/25 DELAY SPEECH THERAPY EVALUATION TO THE WEEK OF 07.10.25 PER PT FAMILY REQUEST. VO RECEIVED FROM SARAH 1016PM] Future Scheduled Test PSYCHOSOCI AL / COGNITIVE ASSESSMENT INDICATES NO NEED FOR SOCIAL, FINANCIAL, OR TRANSPORTATION SUPPORT OR FOR ADDITIONAL CARE PROVIDERS/DISCIPLINES OR REFERRALS TO OUTSIDE ENTITIES. SPEECH THERAPIST TO ASSESS PATIENT AND INFORM PHYSICIAN OF FINDINGS TO ENABLE PHYSICIAN TO ESTABLISH AND INITIATE A PLAN OF CARE. TEACH AND MONITOR PATIENT/CAREGIVER ABILITY TO SAFELY ADMINISTER MEDICATIONS. PHONE TOUCHPOINTS CAN BE PERFORMED NEEDED TO SUPPLEMENT THE PLAN OF CARE. SPEECH THERAPY TO PROVIDE TREATMENT FOR COGNITIVE IMPAIRMENT, INCLUDING ATTENTION, CONCENTRATION, ORIENTATION, MEMORY, PROBLEM SOLVING AND ORGANIZATION. PATIENT/CAREGIVER WILL BE KNOWLEDGEABLE OF DISCHARGE PLANS AND WILL DEMONSTRATE/PROVIDE EDUCATION AND RESOURCES NEEDED TO MAINTAIN HEALTH. [code = PSYCHOSOCIAL / COGNITIVE ASSESSMENT INDICATES NO NEED FOR SOCIAL, FINANCIAL, OR TRANSPORTATION SUPPORT OR FOR ADDITIONAL CARE PROVIDERS/DISCIPLINES OR REFERRALS TO OUTSIDE ENTITIES. SPEECH THERAPIST TO ASSESS PATIENT AND INFORM PHYSICIAN OF FINDINGS TO ENABLE PHYSICIAN TO ESTABLISH AND INITIATE A PLAN OF CARE. TEACH AND MONITOR PATIENT/CAREGIVER ABILITY TO SAFELY ADMINISTER MEDICATIONS. PHONE TOUCHPOINTS CAN BE PERFORMED NEEDED TO SUPPLEMENT THE PLAN OF CARE. SPEECH THERAPY TO PROVIDE TREATMENT FOR COGNITIVE IMPAIRMENT, INCLUDING ATTENTION, CONCENTRATION, ORIENTATION, MEMORY, PROBLEM SOLVING AND ORGANIZATION. PATIENT/CAREGIVER WILL BE KNOWLEDGEABLE OF DISCHARGE PLANS AND WILL DEMONSTRATE/PROVIDE EDUCATION AND RESOURCES NEEDED TO MAINTAIN HEALTH.] Goal 2025-08-18 Patient Goal - TO GET STRONG ER Goal Patient Goal - TO GET STRONG ER Goal Provider Goal - A PLAN OF CARE WILL BE ESTABLISHED THAT MEETS ALL PATIENT'S NURSING NEEDS AND COUNTERSIGNED BY PHYSICIAN. Goal Provider Goal - PATIENT WILL VERBALIZE AND DEMONSTRATE KNOWLEDGE OF MEASURES TO ENSURE ACCURATE AND SAFE ADMINISTRATION OF OXYGEN BY 08/22/25 Goal Provider Goal - PATIENT / CAREGIVER WILL VERBALIZE / DEMONSTRATE ADEQUATE KNOWLEDGE OF ENDOCRINE STATUS. GOAL TO BE MET BY 08/22/25 Goal Provider Goal - PATIENT/CAREGIVER WILL VERBALIZE/DEMONSTRATE ABILITY TO CARE FOR HYPERTENSION. GOAL TO BE MET BY 08/22/25 Goal Provider Goal - RESPIRATORY EXACERBATIONS WILL BE IDENTIFIED PROMPTLY AND INTERVENTIONS INITIATED TO MINIMIZE ASSOCIATED RISK. PATIENT/CAREGIVER WILL VERBALIZE/DEMONSTRATE AN ABILITY TO CARE FOR ALTERED RESPIRATORY STATUS. GOAL TO BE MET BY 08/22/25 Goal Provider Goal - PATIENT/CAREGIVER WILL VERBALIZE MEASURES TO COPE WITH DEPRESSION AND STATE SIGNS AND SYMPTOMS TO REPORT TO PHYSICIAN BY 08/22/25 Goal Provider Goal - INCREASED PAIN OR PAIN CONTROL MEASURES WILL BE IDENTIFIED AND PROMPTLY REPORTED TO THE PHYSICIAN. PATIENT / CAREGIVER WILL VERBALIZE UNDERSTANDING OF PHARMACOLOGIC AND NON-PHARMACOLOGIC PAIN CONTROL MEASURES. GOAL TO BE MET BY 08/22/25. Goal Provider Goal - PATIENT/CAREGIVER DEMONSTRATES ABILITY TO ADHERE TO MEDICATION REGIMEN. GOAL TO BE MET BY 08/22/25 Goal Provider Goal - PATIENT / CAREGIVER WILL VERBALIZE/DEMONSTRATE APPROPRIATE METHODS TO MAINTAIN/GAIN WEIGHT. GOAL TO BE MET BY 08/22/25 Goal Provider Goal - CHANGES IN SKIN INTEGRITY STATUS WILL BE IDENTIFIED AND REPORTED TO THE PHYSICIAN FOR PROMPT INTERVENTION. PATIENT / CAREGIVER WILL VERBALIZE/DEMONSTRATE ADEQUATE KNOWLEDGE OF INTEGUMENTARY STATUS AND APPROPRIATE MEASURES TO PROMOTE SKIN INTEGRITY AND PREVENT INJURY. GOAL TO BE MET BY 08/22/25. Goal Provider Goal - GOALS TO BE ESTABLISHED BY PHYSICAL THERAPIST DURING EVALUATION VISIT Goal Provider Goal - GOALS TO BE ESTABLISHED BY SPEECH THERAPIST DURING EVALUATION VISIT Goal Provider Goal - GOALS TO BE ESTABLISHED BY OCCUPATIONAL THERAPIST DURING EVALUATION VISIT Goal Provider Goal - CARDIOVASCULAR EXACERBATIONS WILL BE IDENTIFIED PROMPTLY AND INTERVENTIONS INITIATED TO MINIMIZE ASSOCIATED RISK. PATIENT/CAREGIVER WILL VERBALIZE/DEMONSTRATE ABILITY TO CARE FOR ALTERED CARDIOVASCULAR STATUS. GOALS TO BE MET BY 08/22/25 Goal Provider Goal - PATIENT AND/OR CAREGIVER WILL BE IN AGREEMENT WITH DISCHARGE PLANS AND WILL VERBALIZE HAVING RESOURCES AND KNOWLEDGE TO MAINTAIN HEALTH. Goal Provider Goal - PATIENT/CAREGIVER WILL VERBALIZE/DEMONSTRATE ABILITY FOR THE PATIENT TO FUNCTION WITHIN THEIR COMMUNITY AND TO PARTICIPATE IN THE DEVELOPMENT AND IMPLEMENTATION OF THEIR CARE PLAN THROUGHOUT THE CERTIFICATION PERIOD Goal Provider Goal - PATIENT WILL REMAIN SAFE AND NEEDS WILL BE MET BY COLLABORATING ON POC AND COMMUNICATING CHANGES IN POC AND CHANGES AFFECTING DISCHARGE PLAN WITH PATIENT, CAREGIVER, RECEIVING PHYSICIAN/HEALTH CARE PROVIDER, AND OTHER PHYSICIANS WRITING ORDERS ON THE POC THROUGHOUT CERTIFICATION PERIOD. Goal Provider Goal - THROUGH REMOTE VIDEO VISIT(S) EDUCATION WILL BE RECEIVED TOWARDS POC ORDERS/GOALS. PATIENT/CAREGIVER WILL VERBALIZE/DEMONSTRATE THE FOLLOWING INTERVENTIONS/PROCEDURES THAT WHERE EDUCATED Goal Provider Goal - PATIENT TO DEMONSTRATE REDUCED FALL RISK AND IMPROVE HOME SAFETY BY 08/02/25 Goal Provider Goal - A PHYSICAL THERAPY PLAN OF CARE WILL BE ORDERED BY PHYSICIAN AND PROVIDED BY PHYSICAL THERAPY. ALL GOALS TO BE MET BY END OF CURRENTLY APPROVED PLAN OF CARE. PATIENT WILL DEMONSTRATE IMPROVED FUNCTION IN RESPONSE TO SPECIFIC EXERCISE(S) AND/OR MANUAL THERAPY TECHNIQUE(S), EVIDENCED BY INCREASED INDEPENDENCE IN ACTIVITIES OF DAILY LIVING. GOAL TO BE MET BY 08/22/25 PATIENT WILL DEMONSTRATE IMPROVED BED MOBILITY. GOAL TO BE MET BY 08/22/25 PATIENT / CAREGIVER WILL DEMONSTRATE SAFE TRANSFERS USING APPROPRIATE BODY MECHANICS AND EQUIPMENT. GOAL TO BE MET BY 08/22/25 PATIENT TO DEMONSTRATE REDUCED FALL RISK AND IMPROVE HOME SAFETY BY 08/22/25 PATIENT/CAREGIVER WILL DEMONSTRATE DECREASED FALL RISK DURING FUNCTIONAL ACTIVITIES. GOAL TO BE MET BY 08/22/25 PATIENT WILL DEMONSTRATE SAFE GAIT TECHNIQUE WITH ASSISTIVE DEVICES NEEDED TO MINIMIZE RISK OF INJURY. GOAL TO BE MET BY 08/22/25 PATIENT AND/OR CAREGIVER WILL BE IN AGREEMENT WITH DISCHARGE PLANS AND WILL VERBALIZE HAVING RESOURCES AND KNOWLEDGE TO MAINTAIN HEALTH. Goal Provider Goal - OCCUPATIONAL THERAPY EVALUATION WILL BE COMPLETED. PLAN OF CARE WILL BE ORDERED BY PHYSICIAN AND PROVIDED BY OCCUPATIONAL THERAPIST. ALL GOALS TO BE MET BY END OF CURRENTLY APPROVED PLAN OF CARE. PATIENT WILL DEMONSTRATE IMPROVED FUNCTION IN RESPONSE TO SPECIFIC EXERCISE(S) AND/OR MANUAL THERAPY TECHNIQUE(S), EVIDENCED BY INCREASED INDEPENDENCE IN ACTIVITIES OF DAILY LIVING. GOAL TO BE MET BY 08/22/25 PATIENT / CAREGIVER WILL DEMONSTRATE SAFE TRANSFERS USING APPROPRIATE BODY MECHANICS AND EQUIPMENT. GOAL TO BE MET BY 08/22/25 PATIENT TO DEMONSTRATE REDUCED FALL RISK AND IMPROVE HOME SAFETY BY 08/22/25 PATIENT WILL VERBALIZE UNDERSTANDING OF INSTRUCTIONS RELATED TO SAFE USE OF ADAPTIVE EQUIPMENT. GOAL TO BE MET BY 08/22/25 PATIENT WILL DEMONSTRATE INCREASED INDEPENDENCE IN ACTIVITIES OF DAILY LIVING. GOAL TO BE MET BY 08/22/25 PATIENT/CAREGIVER WILL DEMONSTRATE DECREASED FALL RISK DURING FUNCTIONAL ACTIVITIES. GOAL TO BE MET BY 08/22/25 Goal Provider Goal - PATIENT/CAREGIVER VERBALIZES AND DEMONSTRATES ABILITY FOR THE PATIENT TO FUNCTION WITHIN THEIR COMMUNITY AND TO PARTICIPATE IN THE DEVELOPMENT AND IMPLEMENTATION OF THEIR CARE PLAN THROUGHOUT THE CERTIFICATION PERIOD. SPEECH THERAPY EVALUATION WILL BE COMPLETED. A PLAN OF CARE WILL BE ORDERED BY PHYSICIAN AND PROVIDED BY SPEECH THERAPIST. ALL GOALS TO BE MET BY END OF CURRENTLY APPROVED PLAN OF CARE. PATIENT WILL DEMONSTRATE AN IMPROVEMENT IN COGNITION A RESULT OF COGNITIVE THERAPY TREATMENTS BY THE SPEECH THERAPIST. GOAL TO BE MET BY 1W6 PATIENT AND/OR CAREGIVER WILL BE IN AGREEMENT WITH DISCHARGE PLANS AND WILL VERBALIZE HAVING RESOURCES AND KNOWLEDGE TO MAINTAIN HEALTH. Progress Notes Progress Notes <paragraph>[Visit Date: 2024 by HAYDEN MOHAN OT]:</paragraph><paragraph>PATIENT IS BEING SEEN THIS DATE FOR OT DISCHARGE HAVING MET HER MAX POTENTIAL. PATIENT WAS SEATED IN HER WC WHEN OT ARRIVED. DAUGHTER WAS ALSO PRESENT. PATIENT DENIED FALLS/MEDICATION CHANGES OR PAIN. VSS EXCEPT BP WAS ELEVATED. PT HAD NOTIFIED MD PRIOR TO OT ARRIVAL. PATIENT WAS AWARE OF PLAN FOR DISCHARGE THIS DATE. PATIENT COMPLETED TOILET TRANSFER AND TOILETING TASK WITH CGA AND VC FOR SAFETY. ASSISTANCE NEEDED TO ENSURE SAFETY WITH ADL TRANSFERS FLUCTUATES RELATED TO FATIGUE/TIME OF DAY. PATIENT REQUIRES CGA TO MIN A WITH COGNITIVE CUES FOR SAFETY. PATIENT ANS DAUGHTER AR AWARE THAT PATIENT NEEDS ASSIST WITH ALL TRANSFERS FOR SAFETY DUE TO DECREASED SAFETY AWARENESS AND CARRYOVER. PATIENT CONTINUES TO BE INCONSISTENT IN COMPLETION OF B UE/CORE HEP. DAUGHTER REPORTS SHE ASKS PATIENT DAILY TO DO HER EXERCISES AND PATIENT DECLINES.PATIENT IS BEING SEEN THIS DATE FOR OT DISCHARGE HAVING MET HER MAX POTENTIAL. PATIENT WAS SEATED IN HER WC WHEN OT ARRIVED. DAUGHTER WAS ALSO PRESENT. PATIENT DENIED FALLS/MEDICATION CHANGES OR PAIN. VSS EXCEPT BP WAS ELEVATED. PT HAD NOTIFIED MD PRIOR TO OT ARRIVAL. PATIENT WAS AWARE OF PLAN FOR DISCHARGE THIS DATE. PATIENT COMPLETED TOILET TRANSFER AND TOILETING TASK WITH CGA AND VC FOR SAFETY. ASSISTANCE NEEDED TO ENSURE SAFETY WITH ADL TRANSFERS FLUCTUATES RELATED TO FATIGUE/TIME OF DAY. PATIENT REQUIRES CGA TO MIN A WITH COGNITIVE CUES FOR SAFETY. PATIENT ANS DAUGHTER AR AWARE THAT PATIENT NEEDS ASSIST WITH ALL TRANSFERS FOR SAFETY DUE TO DECREASED SAFETY AWARENESS AND CARRYOVER. PATIENT CONTINUES TO BE INCONSISTENT IN COMPLETION OF B UE/CORE HEP. DAUGHTER REPORTS SHE ASKS PATIENT DAILY TO DO HER EXERCISES AND PATIENT REFUSES. PATIENT CONTINUES TO REQUIRE ASSIST TO THREAD HER B FEET INTO HER PANTS IN SITTING BEFORE PULLING TO WAIST IN STANCE AT RW. DAUGHTER REPORTED TO CLINICIAN THAT SHE IS INVESTIGATING PUTTING PATIENT IN AN INPATIENT REHAB FACILITY TO ENABLE HER TO HAVE THERAPY DAILY IN HOPES THAT FUNCTIONAL IMPROVEMENT WILL OCCUR. JOSSELIN INDEX IN UNCHANGED AT 50/100, FUNCTIONAL REACH IS UNCHANGED AT 4 . MENDEL IS AWARE THAT PATIENT IS AT A HIGH RISK FOR FALLS. PATIENT AND DAUGHTER ARE AGREEABLE TO OT DISCHARGE AT THIS TIME HAVING MET HER MAX POTENTIAL.</paragraph> <paragraph>[Visit Date: 2024 by BIJAL HOWARD PT]:</paragraph><paragraph>PHYSICAL THERAPY DISCIPLINE DC. </paragraph><paragraph>PATIENT DENIES PAIN AT REST, DENIES NEW FALLS. SHE AND DAUGHTER REPORT NONCOMPLIANCE WITH HEP.</paragraph><paragraph>WITH TESTING TODAY, PATIENT DEMONSTRATES DECLINE IN STRENGTH, TRANSFERS, AND BALANCE. EDUCATED PATIENT AND DAUGHTER IN NEED FOR A RAMP RATHER THAN STEPS TO EXIT FOR SAFE EXIT/ENTRANCE OF HOME IF SHE CONTINUES TO BE NONCOMPLIANT AND GET WEAKER. THEY VU. </paragraph><paragraph>ASSESSMENT OF TRANSFERS, MIN ASSIST FOR BED AND SIT TO STAND. REVIEW OF HEP IN STANDING, SEATED, AND SUPINE. PATIENT CANNOT WHEEL HER OWN CHAIR. </paragraph><paragraph>DC DUE TO NONCOMPLIANCE/PLATEAU AT END OF CERT. PCP NOTIFIED.</paragraph> Encounters Start Date/Time End Date/Time Encounter Type Admission Type Attending Clinicians [facility] Care Department Encounter ID Discharge Date Discharge Status Discharge Condition Discharge Reason Percent Goals Met 2025-06-24 00:00:00 2025-08-22 00:00:00 Outpatient NEW ADMISSION HARMONY JUAREZ [facility] [id number] [phone]
[2025-08-23] VITALS (11 sets, daily range): BP systolic 141–205; BP diastolic 56–142; PULSE 54–89; RESP 13–19; TEMP 36.9; O2SAT 93–96; BMI 21.7
--- OUTSIDE RECORDS SUMMARY | 2025-08-23 11:42 | XMS_ITS | Clinical Summary ---
Author Organization [facility] Address [address] [place] [address] Phone Care Team Providers Care Label Cutter Name Role Phone Unavailable Primary Care Provider [...] Take 81 mg by mouth daily. Active cholecalciferol, vitamin D3, 25 mcg (1,000 unit) Oral Tablet Take 1,000 Units by mouth daily. Active albuterol sulfate (VENTOLIN INHL) Inhale 4 Puffs into the lungs daily. Active clopidogreL (PLAVIX) 75 mg Oral Tablet Take 75 mg by mouth daily. Active HYDROcodone-acet aminophen (NORCO) 5-325 mg Oral Tablet Take 1 Tablet by mouth every 4 hours as needed for Acute Pain (R52). Active albuterol-ipratr opium (DUO-NEB) 3 mg-0.5 mg(2.5 mg base)/3 mL Inhl Solution for Nebulization Take 3 mL by nebulization every 6 hours. Active irbesartan (AVAPRO) 300 mg Oral Tablet Take 300 mg by mouth daily. Active metoprolol (LOPRESSOR) 25 mg Oral TabletIndication s:hypertension Take 25 mg by mouth 2 times daily. Indications: high blood pressure Active pantoprazole (PROTONIX) 40 mg Oral Tablet, Delayed Release (E.C.)Indication s:heartburn Take 40 mg by mouth daily. Indications: heartburn Active citalopram (CELEXA) 10 mg Oral TabletIndication s:major depressive disorder Take 5 mg by mouth 2 times daily. Indications: major depressive disorder Active metFORMIN (GLUCOPHAGE XR) 500 mg Oral ER 24 hr tabletIndication s:type 2 diabetes mellitus Take 1 Tablet by mouth 2 times daily (with meals). Indications: type 2 diabetes mellitus 60 Tablet 5 Active insulin glargine U-100 (LANTUS) 100 unit/mL SubQ SolutionIndicati ons:Type 2 diabetes mellitus without complication, without long-term current use of insulin (HCC) Inject 10 Units under the skin every evening. 10 mL 5 Active magnesium oxide (MAG-OX) 400 mg (241.3 mg magnesium) Oral TabletIndication s:Hypomagnesemia Take 1 Tablet by mouth 2 times daily. 60 Tablet 5 Active melatonin 5 mg Oral TabletIndication s:Resides in snf facility Take 1 Tablet by mouth nightly as needed for Sleep. 5 Active Saccharomyces boulardii (FLORASTOR) 250 mg Oral CapsuleIndicatio ns:Resides in snf facility Take 1 Capsule by mouth 2 times daily. 60 Capsule 5 Active cyanocobalamin 1,000 mcg/mL Inj SolutionIndicati ons:Other fatigue Inject 1 mL into the muscle every 30 days. 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 She reports prior bad experience with narcotics and prefers to avoid. Typically avoids NSAIDs d/t GI side effects when she takes. -Continue tylenol. Add heating pad prn. Assessment & Plan (06/03/2025 3:43 PM EDT): -s/p surgery -Asked to evaluated 10/4 d/t increased pain L hip this AM [...] 06/12/2025 11:24 AM EDT Hospital Encounter [facility] [address] [place] [id number] Hugh Zamarripa MD Coronary artery disease involving augustine coronary artery of augustine heart without angina pectoris (Primary Dx); Resides [...] 1-dose 75+ series) 11/22/2015 COVID-19 Vaccine ( - season) 2025 [facility]: eGFR 06/12/2026 06/12/2025, [...] of52 resultswithin the time period is included. [facility] Glucose Meter POC 125(H) 70 - 100 mg/dL 06/12/2025 8:14 AM EDT [facility] Sample Type Capillary 06/12/2025 8:14 AM EDT [facility] Patient Status Non-Critical Patient 06/12/2025 8:14 AM EDT [facility] Blood BLOOD SPECIMEN / Unknown 06/12/2025 8:13 AM EDT 06/12/2025 8:14 AM EDT us Hugh Zamarripa MD POINT OF CARE TEST ORDER PEDRO LUIS Final Result [facility] [address] [place] [address] * (ABNORMAL) CBC (06/12/2025 5:33 AM EDT) Only the most recent of2 resultswithin the time period is included. Pathologist [facility] WBC 7.9 3.7 - 10.3 x10(3)/mcL 06/12/2025 5:36 AM EDT [facility] RBC 3.76(L) 3.90 - 5.20 x10(6)/mcL 06/12/2025 5:36 AM EDT [facility] Hgb 11.3 11.2 - 15.7 g/dL 06/12/2025 5:36 AM EDT [facility] Hct 35.6 34.0 - 45.0 % 06/12/2025 5:36 AM EDT [facility] MCV 94.7 80.0 - 100.0 fL 06/12/2025 5:36 AM EDT [facility] MCH 30.1 26.0 - 34.0 pg 06/12/2025 5:36 AM EDT [facility] MCHC 31.7 30.7 - 35.5 g/dL 06/12/2025 5:36 AM EDT [facility] RDW 13.0 <=14.9 % 06/12/2025 5:36 AM EDT [facility] Platelet 366 155 - 369 x10(3)/mcL 06/12/2025 5:36 AM EDT [facility] MPV 8.8 8.8 - 12.5 fL 06/12/2025 5:36 AM EDT [facility] Blood VENOUS BLOOD / Unknown Venipuncture / Unknown 06/12/2025 5:33 AM EDT 06/12/2025 5:33 AM EDT Jennifer Fontana APRN HEMATOLOGY ORDERABLES Fi nal Result [facility] [address] [place] [address] * MAGNESIUM LEVEL (06/12/2025 5:33 AM EDT) Only the most recent of3 resultswithin the time period is included. Pathologist [facility] Magnesium 1.7 1.6 - 2.4 mg/dL 06/12/2025 5:55 AM EDT [facility] Blood VENOUS BLOOD / Unknown Venipuncture / Unknown 06/12/2025 5:33 AM EDT 06/12/2025 5:33 AM EDT us Jennifer Fontana APRN CHEMISTRY ORDERABLES Fin al Result [facility] [address] [place] [address] * (ABNORMAL) BASIC METABOLIC PANEL (06/12/2025 5:33 AM EDT) Only the most recent of6 resultswithin the time period is included. Sodium 144 136 - 145 mmol/L 06/12/2025 5:55 AM EDT [facility] Potassium 4.0 3.5 - 5.0 mmol/L 06/12/2025 5:55 AM EDT [facility] Chloride 108(H) 98 - 107 mmol/L 06/12/2025 5:55 AM EDT [facility] Total CO2 27 22 - 29 mmol/L 06/12/2025 5:55 AM EDT [facility] Anion Gap 9 7 - 16 mmol/L 06/12/2025 5:55 AM EDT [facility] Calcium 8.5(L) 8.8 - 10.4 mg/dL 06/12/2025 5:55 AM EDT [facility] Glucose Lvl 137(H) 70 - 99 mg/dL 06/12/2025 5:55 AM EDT [facility] BUN 14 8 - 23 mg/dL 06/12/2025 5:55 AM EDT [facility] Creatinine 0.64 0.51 - 1.30 mg/dL 06/12/2025 5:55 AM T [facility] eGFR (CKD-EPIcr 2020) 86 >=60 mL/min/1.7 3 m2 06/12/2025 5:55 AM EDT [facility] Comment:Estimated GFR was ca lculated using the CKD-EPIcr (2020) equation refit without race. The equation is recommended by the [employer] Kid[employer] - [place] [employer] Neph[employer] Task Force. Blood VENOUS BLOOD / Unknown Venipuncture / Unknown 06/12/2025 5:33 AM EDT 06/12/2025 5:33 AM EDT Jennifer Fontana APRN CHEMISTRY ORDERABLES Fin al Result Performing Organization Address City/[facility] de Phone Number [facility] [address], [place] [id number] * EXTRA LAVENDER (06/11/2025 6:17 AM EDT) Blood VENOUS BLOOD / Unknown Venipuncture / Unknown 06/11/2025 6:17 AM EDT 06/11/2025 9:04 AM EDT Hugh Zamarripa MD HEMATOLOGY ORDERABLES Fi nal Result Performing Organization Address [facility] de Phone Number [facility] [address], [place] [phone] * REPEAT LACTIC ACID (06/11/2025 6:17 AM EDT) Only the most recent of4 resultswithin the time period is included. Lactic Acid 1.9 0.5 - 1.9 mmol/L 06/11/2025 6:31 AM EDT [facility] Blood VENOUS BLOOD / Unknown Venipuncture / Unknown 06/11/2025 6:17 AM EDT 06/11/2025 6:17 AM EDT Hugh Zamarripa MD CHEMISTRY ORDERABLES Fin al Result Performing Organization Address [facility] de Phone Number [facility] [address] [place] [address] * BLOOD CULTURE (NO STAIN) (06/10/2025 5:21 PM EDT) Only the most recent of2 resultswithin the time period is included. Culture Result No Growth at 120 hours. BLOOD CULTURE (NO STAIN) 06/16/2025 11:00 AM EDT [facility] Blood VENOUS BLOOD / Unknown Venipuncture / Unknown 06/10/2025 5:21 PM EDT 06/10/2025 5:23 PM EDT Jennifer Fontana APRN MICROBIOLOGY - GENERAL O RDERABLES Final Result Performing Organization Address [facility] Co de Phone Number [facility] [address] [place] [address] , [place] [address] * PROCALCITONIN (06/10/2025 11:52 AM EDT) Procalcitonin 0.08 <=0.49 ng/mL 06/10/2025 7:35 PM EDT [facility] Blood VENOUS BLOOD / Unknown Venipuncture / Unknown 06/10/2025 11:52 AM EDT 06/10/2025 12:00 PM EDT Narrative [facility] - 06/10/2025 7:35 PM EDT Procalcitonin <0.50 [...] ORDERABLES Fin al Result Performing Organization Address [facility] Co de Phone Number [facility] [address] [place] [address] , [place] [address] * (ABNORMAL) LACTIC ACID (06/10/2025 11:52 AM EDT) Lactic Acid 2.1(H) 0.5 - 1.9 mmol/L 06/10/2025 12:13 PM EDT [facility] Blood VENOUS BLOOD / Unknown Venipuncture / Unknown 06/10/2025 11:52 AM EDT 06/10/2025 12:00 PM EDT Jennifer Fontana APRN CHEMISTRY ORDERABLES Fin al Result [facility] [address] [place] [address] * XR CHEST AP PORTABLE [...] Yellow 06/07/2025 9:08 PM EDT [facility] UA Appear Clear Clear 06/07/2025 9:08 PM EDT [facility] UA Glucose Negative Negative mg/dL 06/07/2025 9:08 PM EDT [facility] UA Ketones Negative Negative mg/dL 06/07/2025 9:08 PM EDT [facility] UA Blood Negative Negative 06/07/2025 9:[facility]A pH 6.0 5.0 - 8.0 pH 06/07/2025 9:08 PM EDT [facility] UA Protein Trace(A) Negative mg/dL 06/07/2025 9:08 PM EDT [facility] UA Urobilinogen 0.2 <=1 mg/dL 9:08 PM [facility] UA Bili Negative Negative 06/07/2025 9:08 PM [facility] UA Nitrite Negative Negative 06/07/2025 9:08 PM [facility] UA Leuk Est Small(A) Negative 06/07/2025 9:08 PM [facility] UA Spec Grav 1.025 1.001 - 1.035 no units 06/07/2025 9:08 PM [facility] Comment:Reference range tessie d for random specimens only. UA WBC 10(H) 0 - 4 /HPF 06/07/2025 9:08 PM EDT [facility] UA RBC 0 0 - 3 /HPF 06/07/2025 9:08 PM [facility] UA Squam Epi 2+ /LPF 06/07/2025 9:08 PM [facility] UA Mucus 2+ /LPF 06/07/2025 9:08 PM EDT [facility] UA Amorph 1+ /HPF 06/07/2025 9:08 PM [facility] UA Bacteria Trace(A) Negative /HPF 06/07/2025 9:08 PM [facility] Urine STRUCTURE OF URINARY TRACT PROPER / Unknown 06/07/2025 8:48 PM EDT 06/07/2025 8:59 PM EDT us Viral Sargent V, DO URINE ORDERABLES Final Result Performing Organization Address City/[facility]/ZIP Co de Phone Number [facility] [address] [place] [address] * EXTRA LAUGHLIN URINE CX (06/07/2025 8:48 PM EDT) Urine STRUCTURE OF URINARY TRACT PROPER / Unknown 06/07/2025 8:48 PM EDT 06/07/2025 8:59 PM EDT us Viral Sargent V, DO MICROBIOLOGY - GENERAL ORDERAB LES Final Result Performing Organization Address City/[facility] Co de Phone Number [facility] [address] [place] [address] * (ABNORMAL) URINE CULTURE (NO STAIN) (06/07/2025 8:48 PM EDT) Culture Positive Growth(A) 06/10/2025 1:16 PM EDT [facility] Culture >100,000 CFU/mL Lactobacillus species SUSCEPTIB ILITY RESULT 06/10/2025 1:16 PM EDT [facility] Comment:No further workup. Culture 4,000 CFU/mL Ashley albicans SUSCEPTIB ILITY RESULT 06/10/2025 1:16 PM EDT [facility] Comment:No further workup. Urine STRUCTURE OF URINARY TRACT PROPER / Unknown 06/07/2025 8:48 PM EDT 06/07/2025 9:08 PM EDT us Viral Sargent V, DO MICROBIOLOGY - GENERAL ORDERAB LES Final Result Performing Organization Address City/[facility]/ZIP Co de Phone Number [facility] [address] [facility] , [place] [address] * XR HIP LEFT AP [...] - 10.3 x10(3)/mcL 06/07/2025 5:11 AM EDT [facility] RBC 3.92 3.90 - 5.20 x10(6)/mcL 06/07/2025 5:11 AM EDT [facility] Hgb 11.8 11.2 - 15.7 g/dL 06/07/2025 5:11 AM EDT [facility] Hct 36.3 34.0 - 45.0 % 06/07/2025 5:11 AM EDT [facility] MCV 92.6 80.0 - 100.0 fL 06/07/2025 5:11 AM [facility] MCH 30.1 26.0 - 34.0 pg 06/07/2025 5:11 AM [facility] MCHC 32.5 30.7 - 35.5 g/dL 06/07/2025 5:11 AM [facility] RDW 12.5 <=14.9 % 06/07/2025 5:11 AM [facility] Platelet 341 155 - 369 x10(3)/mcL 06/07/2025 5:11 AM [facility] MPV 9.0 8.8 - 12.5 fL 06/07/2025 5:11 AM [facility] Neut Percent 79.0 % 06/07/2025 5:11 AM [facility] Comment:Neutrophils equals s egs plus bands Imm Gran% 0.4 % 06/07/2025 5:11 AM [facility] Comment:Automated count of m etamyelocytes, myelocytes and promyelocytes. Lymph Percent 11.7 % 06/07/2025 5:11 AM [facility] Hardin Percent 6.9 % 06/07/2025 5:11 AM [facility] Eos Percent 1.5 % 06/07/2025 5:11 AM [facility] Baso Percent 0.5 % 06/07/2025 5:11 AM [facility] Neut # 8.9(H) 1.6 - 6.1 x10(3)/mcL 06/07/2025 5:11 AM [facility] Comment:Neutrophils equals s egs plus bands IMMGRAN# 0.0 0.0 - 0.1 x10(3)/mcL 06/07/2025 5:11 AM [facility] Comment:Automated count of m etamyelocytes, myelocytes and promyelocytes. An absolute IG <0.1 is reported as 0.0. Lymph # 1.3 1.2 - 3.9 x10(3)/mcL 06/07/2025 5:11 AM [facility] Hardin # 0.8 0.3 - 0.9 x10(3)/mcL 06/07/2025 5:11 AM [facility] Eos# 0.2 0.0 - 0.5 x10(3)/mcL 06/07/2025 5:11 AM EDT [facility] Baso # 0.1 0.0 - 0.1 x10(3)/mcL 06/07/2025 5:11 AM EDT [facility] Blood VENOUS BLOOD / Unknown Venipuncture / Unknown 06/07/2025 5:09 AM EDT 06/07/2025 5:09 AM EDT us Viral Sargent V, DO HEMATOLOGY ORDERABLES Final Re sult Performing Organization Address [facility] Co de Phone Number [facility] [address] [place] [address] * PARTIAL THROMBOPLASTIN TIME (05/31/2025 4:43 PM EDT) PTT 31.8 25.7 - 36.8 second(s) 05/31/2025 4:58 PM EDT [facility] Comment: Therapeutic range for [...] ORDERABLES Fi nal Result Performing Organization Address [facility] Co de Phone Number [facility] [address] [place] [address] * (ABNORMAL) PT / INR (05/31/2025 4:43 PM EDT) PT 13.7(H) 10.5 - 13.6 second(s) 05/31/2025 4:58 PM EDT [facility] INR 1.19(H) 0.91 - 1.18 (ratio) 05/31/2025 4:58 PM EDT [facility] Comment: Level of Therapy Indications Target INR Range Standard Dose Treatment and prophylaxis of venous 2.0 - 3.0 thrombosis, pulmonary embolism High Dose High risk patients with mechanical 2.5 - 3.5 heart valves Blood VENOUS BLOOD / Unknown Venipuncture / Unknown 05/31/2025 4:43 PM EDT 05/31/2025 4:47 PM EDT us Hugh Zamarripa MD HEMATOLOGY ORDERABLES Fi nal Result [facility] [address] [place] [address] * CT ABDOMEN PELVIS HEMATURIA/RENAL [...] mg/dL 05/30/2025 1:28 PM EDT [facility] Blood BLOOD SPECIMEN / Unknown 05/30/2025 1:26 PM EDT 05/30/2025 1:28 PM EDT Hugh Zamarripa MD POINT OF CARE TEST ORDER PEDRO LUIS Final Result [facility] [address] [place], [place] [phone] from Last 3 Months Insurance MEDICA[place] D[place]VANT[place] Advance Directives For more information, please contact: [phone] * Full Code (Latest Code Status on File) Date Activated Date Inactivated Comments 05/30/2025 6:09 AM 06/12/2025 3:25 PM
--- OUTSIDE RECORDS SUMMARY | 2025-08-23 11:42 | XMS_ITS | Clinical Summary ---
Author Organization [facility] Address [address] [id number] Care Team Providers Care Motor Mechanic Name Role Phone Pcp, No Primary Care [...] (one) time each day. Active nystatin (Mycostatin) 219150 UNIT/ML suspension Take 5 mL (500,000 Units) [...] or (1 - 1-dose 75+ series) 11/22/2015 [id number] Vaccine (1 - 2024- season) 2025 [facility]-Influenza Vaccine (#1) 05/01/202505/24, 05/10/2020, 05/25/2019, Additional history exists [facility]-Pneumococcal Vaccine: 50+ Years Completed 12/03/2022, 05/14/2016, 06/15/2013 [facility]-Obesity Intervention Completed 08/10/2024 HPV Vaccines (No Doses Required) Completed [facility]-HIB Vaccines Aged Out No longer e [...] Patient has decision-making capacity? Yes Care Teams Motor Mechanic Relationship Specialty Start Date End Date Pcp, No [address] [place] [address] PCP - General Family Medicine 08/10/24
--- OUTSIDE RECORDS SUMMARY | 2025-08-23 11:42 | XMS_ITS | Data Portability ---
Author Organization [facility] CLOSED Address [address] [place] [address] Care Team Providers Care Employee Benefits Administrator Name Role Phone ALETHA ROBERTSON Wealth Management Advisor SEN REICH JR General Surgeon MOOKIE PEREZ Primary Care Provider [phone] Assessment No assessment recorded. Plan of Treatment [...] arter y No observ ation record ed. [email or web address] [address], [place], [address], 06/21/2024 11:05:07 Result Notes None recorded. 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 2023 SEN REICH JR, MD [address] [place] [address], [address], [facility] 13:00:58 Tobacco dependence syndrome 56894576 Active 2023 SEN REICH JR, MD [address] [place] [address], [address], [facility] 13:01:13 Arthritis 5734375 Active 2023 Wells Stephanie [facility] 13:17:13 Hyperlipide alfonso 14838498 Active 2023 [facility] 13:17:27 Type 2 diabetes mellitus 51797103 Active 2023 [facility] 13:20:26 Nodule of lung 302434199 Active 2023 Wells Stephanie [facility] 13:22:04 Calcificati on of coronary artery 390097609 Active 2023 [facility] 13:22:35 Vitamin D deficiency 05345712 Active 2023 Wells Stephanie [facility] 13:22:53 Hypertensiv e disorder 65666426 Active 2023 Wells Stephanie [facility] 13:23:11 Notes:thyroid nodule Problem Notes None recorded. Procedures Surgical History Date Name Laterality Status Provider Name and Address Organization Details Recorded Time Cholecystectomy completed [facility] 06/09/2024 13:16:44 Imaging Results None recorded. Procedure Notes None recorded. Medical Equipment None Reported. Allergies Allergen ID Allergen Name Allergen Category Reaction Reaction Severity Criticality Documentation Date Start Date Code Code System Note Provider Name and Address Organization Details Recorded Time 371603 Altocor medicatio n Not available Not available Not available 06/09/2024 11777 0 RxNorm Cecille Brown [facility] 11:57:40 084710 Product containin g penicilli n (product) medicatio n Not available Not available Not available 06/09/2024 67456 8001 SNOMED [facility] 11:57:51 853259 Lescol medicatio n Not available Not available Not available 06/09/2024 42992 2 RxNorm Cecille Brown null, [facility] 4 11:58:33 786729 Cipro medicatio n Not available Not available Not available 06/09/202437443 3 RxNorm Cecille Brown null, [facility] 4 11:58:41 745353 Levaquin medicatio n Not available Not available Not available 06/09/2024 43884 2 [facility] 11:58:52 784276 Medicinal product containin g nitrofura n derivativ e and acting as antibacte rial agent (product) medicatio n Not available Not available Not available 06/09/2024 31391 2000 SNOMED [facility] 4 12:28:38 476729 nitrofura ntoin medicatio n Not available Not available Not available 06/09/2024 7454 [facility] 12:00:55 655380 Macrobid medicatio n Not available Not available Not available 06/09/2024 11457 1 Rx[facility] 4 12:01:01 175458 Avelox medicatio n Not available Not available Not available 06/09/2024 98678 6 RxNorm [facility]ruzito [facility] 4 12:01:10 041400 Ceclor medicatio n Not available Not available Not available 06/09/202456109 5 RxNorm Cecillecruzito Brown null, [facility] 4 12:01:20 474309 clarithro mycin medicatio n Not available Not available Not available 06/09/202453339 Rx[facility] 4 12:02:53 405921 Marcaine medicatio n Not available Not available Not available 06/09/2024 95400 97 RxNorm [facility] 12:03:30 300223 Kenalog medicatio n Not available Not available Not available 06/09/2024 7 [facility] 12:03:41 684202 Biaxin medicatio n Not available Not available Not available 06/09/2024 9 [facility] 12:04:25 977687 Invokana medicatio n Not available Not available Not available 06/09/2024 47463 64 RxNorm [facility] 12:06:11 330647 Keflex medicatio n Not available Not available Not available 06/09/202417736 7 [facility] 12:06:44 383507 hydrochlo rothiazid e medicatio n Not available Not available Not available 06/09/2024 5487 [facility] 12:07:37 354822 dexametha sone medicatio n Not available Not available Not available 06/09/2024 3264 RxNorm Cecille Brown [facility] 12:08:02 775552 erythromy sumaya medicatio n Not available Not available Not available 06/09/2024 4053 [facility] 4 12:08:29 141221 brompheni ramine Not available Not available Not available Not available 06/09/2024 1767 [facility] 12:29:50 Medications Name Sig Start Date [...] cm 68 /min 128/69 mm[Hg] [facility] 06/09/2024 12:16:41 Social History None recorded. [...] ICD10 Code Diagnosis IMO Codes Diagnosis Note [id number] SEN REICH JR, MD GENERAL SURGERY [address] [place] [address] 06/09/2024 11:28:36 06/10/2024 10:23:50 Left carotid artery stenosis 0759210705 20537 I65.22 Asymptomat ic left carotid artery stenosis. Check carotid duplex scan.Jose Francisco nue aspirin PlavixCaro tid duplex scan at [facility] shows mild stenosis right and 50-69% stenosis left internal carotid artery. Repeat carotid duplex scan 6 months. Neoplasm o f parotid gland 407662604 D49.0 Benign on fine-needl e aspiration Tobacco de pendence syndrome 18905177 F17.200 Needs cessation Health Concerns Section Related Observation LastModified by Organization Detai ls LastModified Time None Recorded Concern Status LastModified by Organization Details LastModified Time None Recorded Advance Directives Directive None Recorded Payers Insurance Date Sequence Insurance Name Policy Number Policy Richards Covered Member ID Richards Member ID Guarantor Name 06/10/2024 1 [employer] (MEDICARE REPLACEMENT/ ADVANTAGE - HMO) [id number] Patricia Hills [id number] Patricia Hills 06/10/2024 2 MEDICAID-[facility] CHOICES - FFS/TRADITIO NAL Patricia Hills [id number] Patricia Hills Notes Date Note Type Note [...] memory loss SEN REICH JR, MD [address], [place], [address], [facility] 06/21/2024 08:37:58 OBGyn Episode No OBEpisode recorded.
--- OUTSIDE RECORDS SUMMARY | 2025-08-23 11:42 | XMS_ITS | Encounter Summary ---
Author Organization Healthcare Address [address] [place] [address] Care Team Providers Care Rn Lvn Name Role Phone Pcp, No Primary Care Provider Unavailabl e Reason for Referral * Consultation (Urgent) - Authorized Specialty Diagnoses / Procedures Referred By Contact Referred To Contact Vascular Surgery / [facility] Diagnoses Stenosis of carotid artery, unspecified [place] Pr[place]ad [place] [address] fax:[phone] [facility] [address] [place] [address] Phone: tel: fax: Referral ID Status Reason Start Date Expiration Date Visits Requested Visits Authorized [id number] Authorized Specialty Services Required 05/17/2024 11/16/2025 1 1 Encounter Details Date Type Department Care Team (Late st Contact Info) Description 05/17/2024 Community [facility] [address] [place] [address] Pr[place]ad [place] [address] Stenosis of carotid artery, unspecified laterality [...] Primary documented in this encounter Care Teams Rn Lvn Relationship Specialty Start Date End Date Pcp, [place] [address] PCP - General Family Medicine 08/10/24 documented as of this encounter
--- OUTSIDE RECORDS SUMMARY | 2025-08-23 11:42 | XMS_ITS | Encounter Summary ---
Author Organization Healthcare Address [address] [place] [address] Care Team Providers Care Account Representative Name Role Phone Pcp, No Primary Care Provider Unavailabl e Encounter Details Date Type Department Care Team (Late st Contact Info) Description 05/12/2024 Orders Only External Location [address] [place] [address] Charlotte Jung, [address] [place] [address] Social History Tobacco Use Types [...] on filedocumented in this encounter Care Teams Account Representative Relationship Specialty Start Date End Date Pcp, No [address] [place] [address] PCP - General Family Medicine 08/10/24 documented as of this encounter
--- OUTSIDE RECORDS SUMMARY | 2025-08-23 11:42 | XMS_ITS | Encounter Summary ---
Author Organization Healthcare Address [address] [place] [address] Care Team Providers Care Flame Annealing Machine Operator Name Role Phone Pcp, No Primary Care Provider Unavailabl e Encounter Details Date Type Department Care Team (Late st Contact Info) Description 05/12/2024 Orders Only External Location [address] [place] [address] Charlotte Jung, [address] [place] [address] Social History Tobacco Use Types [...] on filedocumented in this encounter Care Teams Flame Annealing Machine Operator Relationship Specialty Start Date End Date Pcp, No [address] [place] [address] PCP - General Family Medicine 08/10/24 documented as of this encounter
--- NOTE | 2025-08-23 11:44 | ED_ITS ---
Discharge Plan Disposition Patient Disposition: Home, Self-Care Condition: Fair Prescriptions Prescriptions: No Action clopidogrel [Plavix] 75 mg tablet 75 mg PO DAILY Qty: 90 3RF aspirin 81 mg tablet,delayed release (DR/EC) 81 mg PO DAILY Qty: 100 10RF ondansetron HCl 4 mg tablet 4 mg PO Q8H PRN (Reason: nausea and vomiting) Qty: 20 0RF (DME) nebulizers Misc See Rx Instructions .MEDSUPPLY Qty: 1 0RF Rx Instructions: As directed (DME) nebulizer accessories Kit See Rx Instructions .MEDSUPPLY Qty: 1 0RF Rx Instructions: As directed cholecalciferol (vitamin D3) 25 mcg (1,000 unit) capsule 25 mcg PO DAILY (DME) OneTouch Verio test strips Strip See Rx Instructions .Route Qty: 50 11RF Rx Instructions: As directed cyclobenzaprine 10 mg tablet 10 mg PO HS PRN (Reason: muscle spasm) Qty: 30 0RF hydrocortisone 2.5 % cream 1 applic topical TID PRN (Reason: hemorrhoids) Qty: 30 2RF (DME) Dexcom G6 Grades 9 Thru 12 Visiting Teacher Misc See Rx Instructions .Route Qty: 1 5RF Rx Instructions: As directed rosuvastatin 5 mg tablet 5 mg PO HS Qty: 90 1RF metformin 500 mg tablet extended release 24 hr 500 mg PO BID Qty: 60 2RF Patient Comments: TAKE 2 TABLETS BY MOUTH ONCE DAILY. (DME) insulin syringes (disposable) 1 mL syringe See Rx Instructions .Route Qty: 50 0RF Rx Instructions: As directed with insulin magnesium oxide 400 mg magnesium capsule 400 mg PO DAILY Qty: 30 0RF (DME) Dexcom G6 Sensor Device See Rx Instructions .Route Qty: 3 5RF Rx Instructions: As directed furosemide [Lasix] 40 mg tablet 40 mg PO DAILY Qty: 30 5RF (DME) pen needle, diabetic [Novofine 32] 32 gauge x 1/4 needle See Rx Instructions .Route Qty: 100 11RF Rx Instructions: [place] [place] Dexcom G6 Transmitter Device See Rx Instructions .Route Qty: 1 0RF Rx Instructions: As directed insulin glargine-yfgn 100 unit/mL solution 10 unit SQ DAILY 30 Days Qty: 3 5RF potassium chloride [Klor-Con M20] 20 mEq tablet,ER particles/crystals 20 meq PO BID Qty: 60 2RF metoprolol tartrate 50 mg tablet 25 mg PO BID betamethasone dipropionate 0.05 % cream 1 applic topical BIDP PRN (Reason: skin irritation) pantoprazole 40 mg Tablet,Delayed Release (Dr/Ec) 40 mg PO HS 30 Days Qty: 30 0RF ipratropium-albuterol 0.5 mg-3 mg(2.5 mg base)/3 mL Solution For Nebulization 3 ml inhalation Q6RT 30 Days Qty: 90 0RF albuterol sulfate [Ventolin HFA] 90 mcg/actuation HFA aerosol inhaler 2 puff inhalation Q6H PRN (Reason: Shortness of breath) 30 Days Qty: 0 0RF Referrals Follow up/Referrals: Aracely Thomas APRN [Primary Care Provider, Family Practice] - See instructions Activity Restrictions/Add. Instructions Additional Instructions/Restrictions: Your magnesium levels were low today but was replaced here in the emergency department. I do encourage you to continue taking your magnesium supplements at home and follow-up with home health for lab redraw. I do encourage you to follow-up with her primary care doctor regarding possible rehabilitation program at [facility] as discussed. If she develops any new or worsening symptoms, or if you become concerned for her health for any reason, return to the emergency department for evaluation. Clinical Impressions Clinical Impression: Hypomagnesemia Print Language Print Language: Spanish Discharge ED Provider: Bradly Harris General Adult HPI General Chief complaint: Weakness Stated complaint: weakness Time Seen by Provider: 08/23/25 11:34 History of Present Illness HPI narrative: Patricia Hills is an 84y female with a history of hypertension, dementia, hyperlipidemia, type 2 diabetes who presents to the ED via EMS per recommendation of her home health nurse for weakness and low magnesium. Per EMS, patient's home health nurse was at her house today and noted that her magnesium was low on a recent lab draw. They state that she had some difficulty ambulating today that was new for her, so they sent her to the emergency department. Patient is pleasantly confused, which is reportedly her baseline. She has no complaints at this time. Daughter at the bedside states that she previously had a hip fracture and was told by her orthopedist that she should be wheelchair-bound, which is when she uses currently. Related Data Home Medications ?Medication ?Instructions ?Recorded ?Confirmed cholecalciferol (vitamin D3) 25 25 mcg PO DAILY 08/10/25 mcg (1,000 unit) capsule betamethasone dipropionate 0.05 % 1 applic topical BID P PRN skin 05/25/25 08/10/25 topical cream irritation metoprolol tartrate 50 mg tablet 25 mg PO BID 06/14/25 08/10/25 Previous Rx's ?Medication ?Instructions ?Recorded aspirin 81 mg tablet,delayed 81 mg PO DAILY #100 tabs 07/06/24 release clopidogrel 75 mg tablet (Plavix) 75 mg PO DAILY #90 t abs 07/06/24 nebulizer accessories #1 ea 08/08/24 nebulizers #1 ea 08/08/24 blood sugar diagnostic (OneTouch #50 ea 04/03/25 Verio test strips) rosuvastatin 5 mg tablet 5 mg PO HS #90 tabs 04/26/25 metformin 500 mg tablet,extended 500 mg PO BID #60 tab s 05/10/25 release 24 hr albuterol sulfate 90 mcg/actuation 2 puff inhalation Q 6H PRN 05/29/25 aerosol inhaler (Ventolin HFA) Shortness of breath 30 days #0 grams ipratropium 0.5 mg-albuterol 3 mg 3 ml inhalation Q6RT 30 days #90 mL 05/29/25 (2.5 mg base)/3 mL nebulization soln pantoprazole 40 mg tablet,delayed 40 mg PO HS 30 days #30 tabs 05/29/25 release hydrocortisone 2.5 % topical cream 1 applic topical TI D PRN 06/16/25 hemorrhoids #30 grams insulin syringes (disposable) 1 mL #50 ea 06/22/25 magnesium oxide 400 mg PO DAILY #30 caps blood-glucose,mixer crane operator,cont #1 ea 07/03/25 (Dexcom G6 Grades 9 Thru 12 Visiting Teacher) cyclobenzaprine 10 mg tablet 10 mg PO HS PRN muscle sp asm #30 07/06/25 tabs blood-glucose sensor (Dexcom G6 #3 ea 07/20/25 Sensor device) furosemide 40 mg tablet (Lasix) 40 mg PO DAILY #30 tab s 07/20/25 pen needle, diabetic 32 gauge x #100 ea 07/20/2509/03 (Novofine 32) blood-glucose transmitter (Dexcom #1 ea 07/21/25 G6 Transmitter device) insulin glargine-yfgn 100 unit/mL 10 unit (0.1 mL) SQ DAILY 30 days 08/03/25 subcutaneous solution #3 mL ondansetron HCl 4 mg tablet 4 mg PO Q8H PRN nausea and 08/10/25 vomiting #20 tabs potassium chloride 20 mEq 20 meq PO BID #60 tabs 08/14 tablet,extended release(part/cryst) (Klor-Con M) Allergies Allergy/AdvReac Type Severity Reaction Status Date / Time Penicillins Allergy Severe swelling Verified 08/10/25 13:38 doxycycline Allergy Mild Unknown Verified 08/10/25 13:38 allergy reaction levofloxacin (From Levaquin) Allergy Anaphylaxis Verified 08/10/25 13:38 moxifloxacin (From Avelox) Allergy Hives Verified 08/10/25 13:38 brompheniramine AdvReac Unknown Verified 08/10/25 13:38 allergy reaction bupivacaine (From Marcaine) AdvReac Unknown Verified 08/10/25 13:38 allergy reaction cephalexin (From Keflex) AdvReac Unknown Verified 08/10/25 13:38 allergy reaction clarithromycin AdvReac Unknown Verified 08/10/25 13:38 allergy reaction fluvastatin (From Lescol) AdvReac Unknown Verified 08/10/25 13:38 allergy reaction hydrochlorothiazide AdvReac Unknown Verified 08/10/25 13:38 allergy reaction lovastatin (From Altocor) AdvReac Unknown Verified 08/10/25 13:38 allergy reaction nitrofurantoin (From AdvReac Unknown Verified 08/10/25 13:38 Macrobid) allergy reaction triamcinolone (From Kenalog) AdvReac Unknown Verified 08/10/25 13:38 allergy reaction PFSH PFSH Disclaimer: The information contained in this section may have been updated after the patient was seen, as this information can be updated by other users. Medical History (Updated 08/23/25 @ 14:34 by Bradly Harris MD) Sundowning Weight loss of more than 10% body weight Wheelchair dependent Weakness Warthin's tumor Pressure ulcer Shortness of Breath Celiac artery stenosis Acute heart failure with preserved ejection fraction (HFpEF) Pleural effusion, bilateral Vertigo Transient neurological symptoms Encounter for immunization Thyroid nodule Visual hallucination Right-sided headache Coronary artery calcification seen on CT scan Pulmonary nodule Vitamin D deficiency Type 2 diabetes mellitus without complications Hyperlipidemia Diabetes mellitus HTN (hypertension) Degenerative joint disease (DJD) of lumbar spine Surgical History H/O removal of cyst History of cholecystectomy Hx of cataract surgery Family History Mother Coronary artery disease Grandmother Stroke Brother Heart attack Social History Smoking Status: Current every day smoker tobacco type: cigarettes packs per day: 1 alcohol intake: never substance use type: denies use current occupational status: other Travel in the last 8 weeks?: None household members: other housing: house Have you lived/traveled outside [place] in past 30 days?: No Contact w/someone who lives/traveled outside [place] past 30 days?: No Exposure to someone with infectious disease in past 14 days?: No Do you have a fever (greater than 100.4 F or 38 C)?: No Have you tested positive for COVID-19?: No Exposed to someone with COVID-19 in past 14 days?: No Do you have a sore throat?: No Do you have a cough?: No Do you have any weakness?: Yes Do you have any diarrhea?: No Are you experiencing any unusual bleeding?: No Do you have any muscle aches/pain?: No Do you have any abdominal pain?: No Are you experiencing loss of taste or smell?: No Other Medical History Have you received the Flu Vaccine for this season: No Have you received the Pneumonia Vaccine: No ROS Obtained: Yes Systems reviewed as appropriate & no additional complaints except as documented Physical Exam General General appearance: alert and in no apparent distress Head Head exam: atraumatic Eye Eye exam: Present normal appearance ENT ENT exam: Present normal external ear exam Neck Neck exam: Present full ROM Chest Chest inspection: Present symmetric chest wall rise Respiratory Respiratory exam: Present normal lung sounds bilaterally; Absent respiratory distress, wheezes or stridor Cardiovascular Cardiovascular exam: Present regular rate and normal rhythm Abdominal Exam Abdominal exam: Present soft; Absent tenderness or guarding Extremities Exam Extremities exam: Present normal inspection Back Exam Back exam: Present normal inspection Neurological Exam Neurological exam: Present alert; Absent oriented X3 (Pleasantly confused) Psychiatric Psychiatric exam: Present normal affect Skin Skin exam: Present warm and dry Medical Decision Making Medical Records Screening: Per USPSTF and CDC recommendations, given the prevalence of disease in our region, it is our hospital?s policy to screen for HIV and viral Hepatitis for all patients aged 18 and over and those with ongoing risk factors. Cristhian Inquiry Pt receiving controlled substance: No Vital Signs: 08/23/25 11:33 08/23/25 11:37 08/23/25 11:47 Temperature 98.5 F Temperature Source Oral Pulse Rate Pulse Rate [Left Radial] 89 Respiratory Rate 13 Blood Pressure 205/83 H 172/142 H Blood Pressure [Right Arm] 205/83 H Blood Pressure Mean 141 151 Blood Pressure Mean [Right Arm] 123 02 Sat by Pulse Oximetry 95 Oxygen Delivery Method Room Air 08/23/25 12:00 08/23/25 12:30 08/23/25 13:00 Temperature Temperature Source Pulse Rate 58 L 60 59 L Pulse Rate [Left Radial] Respiratory Rate Blood Pressure 151/66 H 141/56 H 144/60 H Blood Pressure [Right Arm] Blood Pressure Mean Blood Pressure Mean [Right Arm] 02 Sat by Pulse Oximetry 96 96 94 L Oxygen Delivery Method Room Air 08/23/25 13:31 08/23/25 14:01 08/23/25 14:26 Temperature Temperature Source Pulse Rate 61 57 L 54 L Pulse Rate [Left Radial] Respiratory Rate Blood Pressure 143/117 H 157/64 H 192/83 H Blood Pressure [Right Arm] Blood Pressure Mean 113 119 Blood Pressure Mean [Right Arm] 02 Sat by Pulse Oximetry 93 L 95 96 Oxygen Delivery Method Room Air Room Air 08/23/25 14:31 08/23/25 14:58 Temperature 98.5 F Temperature Source Pulse Rate 56 L 56 L Pulse Rate [Left Radial] Respiratory Rate 19 Blood Pressure 151/87 H 151/87 H Blood Pressure [Right Arm] Blood Pressure Mean 108 Blood Pressure Mean [Right Arm] 02 Sat by Pulse Oximetry 96 Oxygen Delivery Method Room Air Room Air Lab Data Lab Results 08/23/25 11:39: WBC 9.3, RBC 4.50, Hgb 13.8, Hct 40.7, MCV 90.4, MCH 30.7, MCHC 33.9, RDW 12.4, Plt Count 268, MPV 9.5, Neut % (Auto) 71.8, Lymph % (Auto) 20.9, [place] % (Auto) 5.7, Eos % (Auto) 0.8, Baso % (Auto) 0.5, Neut # (Auto) 6.7, Lymph # (Auto) 1.9, [place] # (Auto) 0.5, Eos # (Auto) 0.1, Baso # (Auto) 0.1, Sodium 140, Potassium 4.3, Chloride 104, Carbon Dioxide 29, Anion Gap 11.3, BUN 22 H, C reatinine 1.30 H, Estimated Creat Clear 31, Estimated GFR 39 L, Est GFR ( Amer) 47 L, Glucose 169 H, Calcium 9.1, Magnesium 1.0 L, Total Bilirubin 0.5, AST 29, ALT 14, Alkaline Phosphatase 80, Total Protein 7.2, Albumin 4.2, Globulin 3.0, Albumin/Globulin Ratio 1.4, TSH 1.41, Free T4 1.03, HCV Ab GEORGE w/Rflx PCR Qn Negative, HIV Ag/Ab Combo Qual Negative 08/23/25 13:45: Urine Color Yellow, Urine Appearance Clear, Urine pH 5.5, Ur Specific Elizabeth 1.015, Urine Protein Negative, Urine Glucose (UA) Negative, Urine Ketones Negative, Urine Blood Negative, Urine Nitrate Negative, Urine Bilirubin Negative, Urine Urobilinogen 0.2, Ur Leukocyte Esterase Negative, Urine RBC None, Urine WBC 3-5, Ur Squamous Epith Cells None, Urine Bacteria Trace, Hyaline Casts 3-5 08/23/25 11:39 08/23/25 11:39 Orders (Tests/Meds): ED MEDICATIONS Discontinued Medications Generic Name Dose Route Start Last Admin Trade Name Freq PRN Reason Stop Dose Admin Magnesium Sulfate 2 gm in 50 mls @ 50 mls/hr 08/23/25 12:10 08/23/25 13:26 Magnesium Sulfate 2gm/50ml Premix IV 08/23/25 13:09 Infused ONCE ONE Infusion Magnesium Sulfate 2 gm in 50 mls @ 50 mls/hr 08/23/25 12:10 08/23/25 14:31 Magnesium Sulfate 2gm/50ml Premix IV 08/23/25 13:09 Infused ONCE ONE Infusion ORDERS Category Date Time Status CBC w/Auto Diff [Complete Blood Count Auto Diff] Stat Lab 08/23/25 11:39 Completed CMP [Comprehensive Metabolic Panel] Stat Lab 08/23/25 11:39 Completed Free T4 (Free Thyroxine) Stat Lab 08/23/25 11:39 Completed HIV Combo Routine Lab 08/23/25 11:39 Completed Hepatitis C Ab Qual. W/ RFX Routine Lab 08/23/25 11:39 Completed Magnesium Stat Lab 08/23/25 11:39 Completed TSH [Thyroid Stimulating Hormone] Stat Lab 08/23/25 11:39 Completed UA [Urinalysis and Microscopic] Stat Lab 08/23/25 13:45 Completed Medical Decision Narrative: Patricia Hills is an 84y female with a history of hypertension, dementia, hyperlipidemia, type 2 diabetes who presents to the ED via EMS per recommendation of her home health nurse for weakness and low magnesium. Per EMS, patient's home health nurse was at her house today and noted that her magnesium was low on a recent lab draw. They state that she had some difficulty ambulating today that was new for her, so they sent her to the emergency department. Patient is pleasantly confused, which is reportedly her baseline. She has no complaints at this time. Daughter at the bedside states that she previously had a hip fracture and was told by her orthopedist that she should be wheelchair-bound, which is when she uses currently. On arrival, patient is mildly hypertensive, heart rate within normal limits, afebrile, oxygen saturation within normal limits. Physical exam, stated above, revealed overall well and pleasantly confused female in no distress. She has no complaints at this time. Abdomen is soft, nontender nondistended. Cardiopulmonary exam without wheezing, rales or rhonchi. No murmurs or rubs. On arrival, patient is hemodynamically stable, in no acute distress, maintaining appropriate oxygen saturation on room air. Afebrile. Physical exam, stated above, revealed a pleasantly confused female in no distress. Patient has no complaints at this time. Abdomen soft, nontender nondistended. Cardiopulmonary exam without wheezing, rales or rhonchi. No murmurs or rubs. Differential diagnosis includes, but is not limited to: Electrolyte derangement such as hypomagnesemia, hypokalemia, hyponatremia,, among others. Insert morbid Workup in the emergency room included: Hematologic labs, EKG, urine studies Workup shows no derangements on CBC, electrolytes within normal limits except for magnesium low at 1 (that she does appear to be chronically low ranging between 1.3 and 1.5) will give 4 g of IV magnesium sulfate. Creatinine is mildly elevated at 1.3 but improving from previous lab draw of 1.5. Liver enzymes within normal limits. Thyroid studies within normal limits. Urinalysis without evidence of infection. On reassessment, patient [facility] been [facility]. Discussed with daughter at bedside who states that she completed an 8-week course of PT/OT just over the last few days but did not comply well and believes that that is a source of her weakness. She has been in conversation with her primary care doctor about attending an aggressive 2-week program at [facility] for rehabilitation and I encouraged them to seek this option with her primary care doctor. She notes that she takes magnesium supplements at home a encouraged her to continue taking these and to double up over the next few days. Encouraged them to follow-up with home health for lab redraw. Return precautions were given. All questions were answered. Daughter and patient demonstrated understanding and were in agreement this plan. She was then discharged from the emergency department in stable condition. Critical Care Critical Care Time Critical Care Time: No
[2025-08-23 11:47] LABS: Hematocrit 40.7 % (37.0-47.0); Hemoglobin 13.8 g/dL (12.2-16.2); Immature Granulocytes % 0.3 %; Mean Corpuscular HGB Conc 33.9 g/dL (31.8-35.4); Mean Corpuscular Hemoglobin 30.7 pg (27.0-31.2); Mean Corpuscular Volume 90.4 fl (81-99); Nucleated Red Blood Cells % 0 %; Platelet Count 268 K/mm3 (142-424); Red Blood Count 4.50 M/mm3 (4.20-5.40); Red Cell Distribution Width-SD 41.1 fL; White Blood Count 9.3 K/mm3 (4.8-10.8)
--- NOTE | 2025-08-23 11:54 | ECG_ITS ---
APPROVED REPORT Exam: Resting ECG HR:57 bpm ECG Measurements Heart Rate 57 AXES WY 153 P 68 QRSd 68 QRS 49 QT 405 T 44 QTc 398 Conclusion SINUS BRADYCARDIA NONSPECIFIC ST & T-WAVE ABNORMALITY BORDERLINE ECG UNCONFIRMED REPORT Sinus bradycardia. No STEMI Electronically signed by : FREDI MCCLELLAN, 08/23/2025 15:57:00
[2025-08-23 12:01] LABS: Alanine Aminotransferase 14 U/L (12-78); Albumin Level 4.2 g/dl (3.5-5.0); Albumin/Globulin Ratio 1.4 (1.1-1.8); Alkaline Phosphatase 80 U/L (38-126); Anion Gap 11.3 mEq/L (5-15); Aspartate Amino Transferase 29 U/L (14-36); Bilirubin,Total 0.5 mg/dl (0.2-1.3); Blood Urea Nitrogen 22 mg/dl (7-17); Calcium 9.1 mg/dl (8.4-10.2); Carbon Dioxide 29 mmol/L (22.0-30.0); Chloride 104 mmol/L (98-107); Creatinine,Serum 1.30 mg/dl (0.52-1.04); Estimated Glomerular Filt Rate 39 ml/min (>60); GFR (African American) 47 ML/MIN (>60); Globulin 3.0 g/dL (1.3-3.2); Glucose 169 mg/dl (74-100); Potassium 4.3 mmoL/L (3.5-5.1); Sodium 140 mmol/L (136-145); Total Protein,Serum 7.2 g/dl (6.3-8.2)
[2025-08-23 12:04] LABS: Creatinine Clearance Estimated 31 mL/min (50-200)
[2025-08-23 12:05] LABS: Magnesium 1.0 mg/dl (1.6-2.3)
[2025-08-23] MEDS: MAGNESIUM SULFATE IN WATER 2 GM/50 ML PIGGYBACK IV ×2 (12:25→13:23)
[2025-08-23 12:32] LABS: Thyroid Stimulating Hormone 1.41 uIU/mL (0.465-4.68)
[2025-08-23 12:46] LABS: Free T4 (Free Thyroxine) 1.03 ng/dl (0.78-2.19)
[2025-08-23 13:18] LABS: Hepatitis C Ab Qual. W/ RFX NEGATIVE (Negative)
[2025-08-23 13:54] LABS: Microscopic, Urine URINE MICROSCOPIC (MICROSCOPIC)
[2025-08-23 14:10] LABS: Bilirubin,Urine Negative (Negative); Color,Urine YELLOW (Yellow); Glucose,Urine (UA) Negative (Negative); Ketones,Urine Negative (Negative); Leukocyte Esterase,Urine Negative (Negative); PH,Urine 5.5 (5.0-8.5); Protein,Urine Negative (Negative); Specific Gravity, Urine 1.015 (1.005-1.030); Urobilinogen,Urine 0.2 EU/dl (0.2)
[2025-08-23 14:50] LABS: Bacteria,Urine Trace /lpf
== END 2025-08-23 14:59 | disposition home or self-care (01) ==
PROVIDERS: Emergency Provider Student in an Organized Health Care Education/Training Program; PCP Nurse Practitioner
DX: E83.42 Hypomagnesemia (principal); R53.1 Weakness; I10 Essential (primary) hypertension; E78.5 Hyperlipidemia, unspecified; E11.9 Type 2 diabetes mellitus without complications; Z87.891 Personal history of nicotine dependence; Z79.4 Long term (current) use of insulin
CPT/HCPCS: 80053; 81001; 83735; 84439; 84443; 85025; 86803; 87389; 93005; 96365; 99284; 99285; J3475